=== PATIENT | female | born 1970 | race Caucasian/White ===

== ENCOUNTER → 2017-12-27 09:02 | Outpatient (CLI) | payer MEDICAID, SELFPAY ==
[2017-12-27 17:25] LABS: Absolute Lymphocyte Count 2.96 X10^3/ul (0.83-4.51); Absolute Neutrophil Count 9.1 X10^3/uL (2.0-7.7); Basophil# 0.03 X10^3/uL; Basophil% 0.2 % (0-1); Eosinophil# 0.12 X10^3/uL; Eosinophils% 0.9 % (0-5); Hemoglobin 12.4 g/dl (12.0-15.0); Lymphocyte # 2.96 X10^3/ul (4.0); Lymphocyte % 22.7 % (19-41); Mean Corp Hgb Conc 32.6 g/gl (32-36); Mean Corpuscular Hgb 29.4 pg (27.0-32.0); Mean Platelet Vol. 11.4 fl (6.2-12.0); Monocyte# 0.84 X10^3/uL; Monocyte% 6.4 % (0-10); Neutrophil # 9.09 X10^3/uL (2.7-7.7); Neutrophil % 69.6 % (47-70); Platelet Count 286 K/mm3 (150-450); RBC Distribution Width CV 13.6 % (11.6-14.6); RBC Distribution Width SD 43.9 fl (35.1-43.9); Red Blood Count 4.22 M/mm3 (4.2-5.4); White Blood Count 13.1 K/mm3 (4.4-11.0)
[2017-12-27 17:49] LABS: ALB/GLOB Ratio 0.8 RATIO (0.9-2.4); AST(SGOT) 16 U/L (15-37); Alanine Aminotransfer ALT/SGPT 17 U/L (13-56); Albumin, Serum 3.4 g/dL (3.2-5.0); Alkaline Phosphatase 78 U/L (45-117); Anion Gap 10 (5-15); BUN 10 mg/dL (7-18); BUN/Creat Ratio 11.2 RATIO (10-20); Calcium,Total 8.8 mg/dL (8.5-10.1); Chloride 106 mmol/L (98-107); EST Glomerular Filtration Rate 72 mL/min (>60); Est Glom Filt Rate - Afr Amer 87 mL/min (>60); Globulin 4.2 g/dL (2.2-4.2); Glucose 82 mg/dL (74-106); POSITIVE COUNT NO; POSITIVE DIFFERENTIAL NO; POSITIVE MORPHOLOGY NO; Potassium 3.8 mmol/L (3.5-5.1); Protein, Total 7.6 g/dL (6.4-8.2); Sodium Level 139 mmol/L (136-145); Thyroid Stim Hormone (TSH) 4.04 uIU/mL (0.358-3.74)
== END ==
PROVIDERS: Family Provider Family Medicine Geriatric Medicine; PCP Family Medicine Geriatric Medicine; Visit Provider Family Medicine Geriatric Medicine
DX: R53.83 Other fatigue (principal)
CPT/HCPCS: 36415; 80053; 84443; 85025

== ENCOUNTER 2018-01-17 08:11 | Emergency (ER) | payer MEDICAID, SELFPAY ==
[2018-01-17 08:12] VITALS: BP 183/102; PULSE 87; RESP 16; TEMP 36.7; O2SAT 100; BMI 29.3
[2018-01-17 08:17] VITALS: BP 201/107; PULSE 86; RESP 18; O2SAT 100
--- NOTE | 2018-01-17 08:25 | CT_ITS ---
STUDY: CT BRAIN WITHOUT CONTRAST REASON FOR EXAM: Female, 47 years old. Dizziness since last night. RADIATION DOSAGE (If Supplied By Facility): CTDIvol = ( 44.99 ) mGy, DLP = ( 745.49 ) mGycm TECHNIQUE: Transaxial CT imaging of the brain was performed without administration of intravenous contrast material. Individualized dose optimization techniques were used for this CT. COMPARISON: None. FINDINGS: Normal soft tissue structures. Normal calvarium. Normal size ventricles and extra-axial spaces for the patient's age. Normal white matter tracts of the cerebral hemispheres. Normal basal ganglia and thalami. Normal brainstem. Normal cerebellum. There is no intracranial hemorrhage. There are no findings of an acute ischemic infarction. Normal visualized paranasal sinuses. CT/Brain/Head without Contrast IMPRESSION: No acute intracranial process. Electronically Signed: Tanika Eason MD at 10:16 EDT Tel , Service support ,
--- NOTE | 2018-01-17 08:25 | EKG12_ITS ---
Test Reason : DIZZINESS Blood Pressure : / mmHG Vent. Rate : 090 BPM Atrial Rate : 090 BPM P-R Int : 196 ms QRS Dur : 098 ms QT Int : 370 ms P-R-T Axes : 057 075 057 degrees QTc Int : 452 ms Normal sinus rhythm Nonspecific ST and T wave abnormality Abnormal ECG Confirmed by DIDI VALENZUELA, IBRAHIMA ([id number]), production editor ALYCIA MOSLEY ([id number]) on 01/21/2018 1:53:16 PM Referred By: RANCHO Confirmed By:IBRAHIMA TOLBERT MD
--- NOTE | 2018-01-17 08:26 | RAD_ITS ---
STUDY: X-RAY CHEST REASON FOR EXAM: Female, 47 years old. Chest pain and dizziness. TECHNIQUE: AP and lateral views of the chest. COMPARISON: Comparison is made with prior examination dated August 03, 2015. FINDINGS: EKG electrodes are seen. The lungs are clear and expanded. There is no demonstrated pleural abnormality. Normal size heart. Normal mediastinum and sweta. Normal visualized pulmonary arteries. Normal visualized aortic arch and descending thoracic aorta. Normal visualized thoracic spine. Normal visualized ribs, clavicles, and shoulders. There is no demonstrated abnormality of the visualized soft tissue structures of the upper abdomen. RAD/Chest PA and Lateral IMPRESSION: Normal x-ray examination of the chest. Electronically Signed: Ivan Durand MD at 10:52 EDT Tel [phone], Service support ,
--- NOTE | 2018-01-17 08:28 | ED.VISSUMM ---
- ER Visit Summary Date of Service: 01/17/18 Chief Complaint: Dizzy History of Present Illness: The patient is a 47 F with onset of lightheadedness and dizziness last evening. Patient states it seems to come in waves. She does report some mild palpitations. She describes a head pressure without a real headache. She states she then gets a pressure sensation that washes over her body. She did take a caffeine pill this morning but states she has taken them intermittently in the past and never had this reaction. She also drank half a cup of coffee. Physical Examination: Vital signs include blood pressure of 183/102, temperature 98.1, heart rate 87, respiratory rate 16, pulse ox 100% on room air. Patient is in no acute distress and is nontoxic appearing. Head and neck examination is normal. Heart is regular rate and rhythm. Palpable pulses are noted throughout. Lungs are clear with good air movement throughout. Abdomen is soft and nontender. Bowel sounds are noted. Extremity examination is unremarkable with full range of motion. Neurologic examination reveals no focal deficits. Test Results: EKG is sinus at 90. She has mild ST depression laterally that is mildly more pronounced than prior study. CBC and chemistry studies are normal. Troponin is negative. Patency test negative. TSH is normal. Chest x-ray shows no acute process. CT head shows no acute process. Emergency Department Course and Treatment: Patient has been observed here. Pressure is currently 178/98. Patient states she just had her blood pressure checked 3 weeks ago when she saw Dr. Meyer in the office. My concern is that her hypertension is secondary to her coffee and caffeine supplements. I encouraged her to stop this. She will check her blood pressure regularly and keep record of this. She will follow with Dr. Meyer. Treatment Plan: [] Disposition: Discharge Impression: 1. Dizziness 2. Hypertension, to be monitored This note was generated with [employer] dictation software. It may contain incorrect words, spelling, and punctuation that were not noted in review of the chart prior to signing ED Disposition - Plan for ED Patient: Chief Complaint: Dizziness Referrals: Bear Meyer Chi, MD [Primary Care Provider] -
[2018-01-17] MEDS: 0.9% Normal Saline 1,000 ML 150 ML IV (09:33)
[2018-01-17 09:40] LABS: Absolute Lymphocyte Count 1.87 X10^3/ul (0.83-4.51); Basophil# 0.01 X10^3/uL; Basophil% 0.1 % (0-1); Eosinophil# 0.11 X10^3/uL; Eosinophils% 1.5 % (0-5); Hematocrit 41.1 % (37-47); Hemoglobin 13.2 g/dl (12.0-15.0); Lymphocyte # 1.87 X10^3/ul (4.0); Mean Corp Hgb Conc 32.1 g/gl (32-36); Mean Corpuscular Hgb 28.9 pg (27.0-32.0); Mean Corpuscular Volume 89.9 fL (81-99); Mean Platelet Vol. 10.1 fl (6.2-12.0); Monocyte# 0.47 X10^3/uL; Monocyte% 6.3 % (0-10); Platelet Count 291 K/mm3 (150-450); RBC Distribution Width CV 13.5 % (11.6-14.6); Red Blood Count 4.57 M/mm3 (4.2-5.4); White Blood Count 7.5 K/mm3 (4.4-11.0)
[2018-01-17 09:41] LABS: POSITIVE COUNT NO; POSITIVE DIFFERENTIAL NO; POSITIVE MORPHOLOGY NO
[2018-01-17 09:57] LABS: Pregnancy, Serum, hCG Quali. NEGATIVE Negative (0-9 Nonpreg)
[2018-01-17 10:01] LABS: Anion Gap 9 (5-15); BUN 9 mg/dL (7-18); BUN/Creat Ratio 8.3 RATIO (10-20); Calcium,Total 9.5 mg/dL (8.5-10.1); Chloride 107 mmol/L (98-107); Creatinine, Serum 1.09 mg/dL (0.55-1.02); EST Glomerular Filtration Rate 58 mL/min (>60); Est Glom Filt Rate - Afr Amer 70 mL/min (>60); Estimated Creatinine Clearance 65.75 ml/min; Glucose 96 mg/dL (74-106); Potassium 4.2 mmol/L (3.5-5.1); Sodium Level 142 mmol/L (136-145); Thyroid Stim Hormone (TSH) 1.86 uIU/mL (0.358-3.74)
[2018-01-17 10:19] VITALS: BP 185/98; PULSE 81; RESP 18; O2SAT 100
--- NOTE | 2018-01-17 10:38 | ED.DEP ---
ED Disposition - Plan for ED Patient: Disposition: Home or Assisted Living Chief Complaint: Dizziness Instructions: ED Dizziness [facility], ED Hypertension Poss Referrals: Bear Meyer Chi, MD [Primary Care Provider] - 1 Week
[2018-01-17 10:50] VITALS: BP 154/81; PULSE 76; RESP 16; O2SAT 98
== END 2018-01-17 10:51 | disposition home or self-care (01) ==
PROVIDERS: Emergency Provider Emergency Medicine; Family Provider Family Medicine Geriatric Medicine; PCP Family Medicine Geriatric Medicine
DX: R42 Dizziness and giddiness (principal); I10 Essential (primary) hypertension; K21.9 Gastro-esophageal reflux disease without esophagitis; F41.9 Anxiety disorder, unspecified; Z87.891 Personal history of nicotine dependence
CPT/HCPCS: 70450; 71046; 80048; 84443; 84484; 84703; 85025; 93005; 96360; 99285; J7030

== ENCOUNTER → 2018-01-22 14:47 | Outpatient (CLI) | payer MEDICAID, SELFPAY ==
[2018-01-29 07:01] LABS: Aldosterone, Serum 3.1 ng/dL (0.0-30.0); Renin, Plasma 0.828 ng/mL/hr (0.167-5.380)
== END ==
PROVIDERS: Family Provider Family Medicine Geriatric Medicine; PCP Family Medicine Geriatric Medicine; Visit Provider Family Medicine Geriatric Medicine
DX: R42 Dizziness and giddiness (principal)
CPT/HCPCS: 36415; 82088; 84244

== ENCOUNTER → 2018-01-25 08:04 | Outpatient (CLI) | payer MEDICAID, SELFPAY ==
[2018-01-30 03:07] LABS: Cortisol, Urinary Free 8 ug/L (Undefined); Metanephrine, Ur 85 ug/L (Undefined); Normetanephrines, Ur 190 ug/L (Undefined)
[2018-01-30 11:59] LABS: Cortisol, Free 24Ur 13 ug/24 hr (0-50); Metanephrines, 24Ur 134 ug/24 hr (45-290); Normetanephrines, 24Ur 299 ug/24 hr (82-500)
== END ==
LOC: LAB 08:06 → LABSPEC 08:07
PROVIDERS: Family Provider Family Medicine Geriatric Medicine; PCP Family Medicine Geriatric Medicine; Visit Provider Family Medicine Geriatric Medicine
DX: R42 Dizziness and giddiness (principal)
CPT/HCPCS: 81050; 82530; 83835

== ENCOUNTER → 2018-02-11 12:52 | Outpatient (CLI) | payer MEDICAID, SELFPAY ==
--- NOTE | 2018-02-11 13:00 | SP.MBSS_ITS ---
PRIMARY / SECONDARY DIAGNOSIS: dysphagia (R13.10) REFERRING PHYSICIAN: Dr. Lucy Meyer MD CURRENT DIET: regular textures, thin liquids DENTITION: WFL MENTAL STATUS: WNL RESPIRATORY STATUS: O2 via room air PREVIOUS MODIFIED BARIUM SWALLOW STUDY: none REASON FOR REFERRAL Patient is a 47 year old female referred for a modified barium swallow (MBS) study to objectively assess the Patients oropharyngeal swallow function under fluoroscopy secondary to reported dysphagia primarily with solid textures, with the Patient reporting symptoms similar to globus sensation post deglutition. ADDITIONAL OBJECTIVE ASSESSMENT RESULTS: 01/17/2018 CXR revealed a normal x-ray examination of the chest. 01/17/2018 CT revealed no acute intracranial process. 12/28/2015 pulmonary functions test revealed irreversible mild restrictive ventilatory defect with reduction in diffusion capacity consistent with possible interstitial lung disease. 01/31/2015 soft tissue neck X-ray revealed a normal x-ray soft tissue neck. MEDICAL HISTORY: Dyspnea, hypertension, gastroesophageal reflux disease, anxiety. STUDY FINDINGS: Patient participated in a Modified Barium Swallow (MBS) study on 02/11/2018. Dr. Durand was the radiologist present for this evaluation. This study was recorded in the lateral view and images were sent to PACs for storage. The following consistencies were presented to this patient for analysis of oropharyngeal swallow function: thin liquids, pudding, and a regular textured, [employer] cookie. Results of the MBS are as follows: PENETRATION / ASPIRATION SCALE (JACK): 1 = does not enter airway 2 = enters airway/above vocal folds/ejected 3 = enters airway/above vocal folds/not ejected 4 = enters airway/contacts vocal folds/ejected 5 = enters airway/contacts vocal folds/not ejected 6 = enters airway/below vocal folds/ejected 7 = enters airway/below vocal folds/not ejected despite effort 8 = enters airway/below vocal folds/no effort PENETRATION / ASPIRATION SCALE (SCORE): Thin liquid - 5 mL tsp.: 1 Thin liquids via cup (single sip): 1 Thin liquids via cup (single sip): 1 Thin liquids via cup (single sip): 1 Thin liquids via cup (sequential swallows): 1 Pudding via spoon: 1 Regular textured cookie: 1 Thin liquids via straw (sequential swallows): 1 IMPRESSION: DIAGNOSIS: findings grossly within functional limits. ORAL PHASE CHARACTERIZED BY: LABIAL SEAL: no labial escape TONGUE CONTROL DURING BOLUS MANIPULATION: cohesive bolus between tongue to palatal seal BOLUS PREPARATION / MASTICATION: timely and efficient chewing and mashing BOLUS TRANSPORT / LINGUAL MOTION: brisk tongue motion ORAL RESIDUE: trace residue lining oral structures PHARYNGEAL PHASE CHARACTERIZED BY: INITIATION OF PHARYNGEAL SWALLOW: bolus head at posterior angle of ramus at first hyoid excursion SOFT PALATE ELEVATION: no bolus between soft palate and pharyngeal wall LARYNGEAL ELEVATION: complete superior movement of thyroid cartilage with complete approximation of arytenoids cartilage to epiglottic petiole ANTERIOR HYOID EXCURSION: complete anterior movement EPIGLOTTIC MOVEMENT: complete epiglottic inversion LARYNGEAL VESTIBULE CLOSURE AT HEIGHT OF SWALLOW: complete laryngeal vestibule closure with no air/contrast in laryngeal vestibule PHARYNGEAL STRIPPING WAVE: pharyngeal stripping wave present / complete PHARYNGOESOPHAGEAL SEGMENT OPENING: complete distension and complete duration with no obstruction of flow TONGUE BASE RETRACTION: no contrast between tongue base and posterior pharyngeal wall PHARYNGEAL RESIDUE: trace residue within or on pharyngeal structures ESOPHAGEAL PHASE CHARACTERIZED BY: ESOPHAGEAL BOLUS CLEARANCE IN THE UPRIGHT POSITION: could not view DIET TEXTURE RECOMMENDATIONS: Will recommend a regular textured, thin liquid diet. COMPENSATORY STRATEGIES RECOMMENDED: Seated upright at 90 degrees during PO intake, remain upright for 30-60 minutes post meal (GERD precaution) INTERPRETATION OF RESULTS: The Patient presents with mastication and deglutition abilities found to be grossly within functional limits. No aspiration appreciated throughout consistencies trialed. RECOMMENDATIONS: Patient able to comprehend and express recommended intake precautions detailed above with sufficient detail to suggest high likelihood of compliance. Provided brief overview of signs and symptoms of aspiration, with recommendations for the Patient to further discuss symptoms with PCP. No further skilled speech- language services warranted at this time targeting dysphagia. ADDITIONAL COMMENTS/RECOMMENDATIONS: Results and recommendations were discussed with the Patient immediately following MBS completion, with the Patient verbalizing understanding and agreement with all recommendations and education provided. IMAGE COUNT: [id number] G-CODES: SWALLOWING G8996 Current Status: SWALLOWING G8997 Goal Status: SWALLOWING G8998 Discharge Status: Hugh Sanchez M.A., CCC-NEEDLE LOOM TENDER [facility] Speech-Language Pathology Department [email or web address]
== END ==
PROVIDERS: Family Provider Family Medicine Geriatric Medicine; PCP Family Medicine Geriatric Medicine; Visit Provider Family Medicine Geriatric Medicine
DX: R13.10 Dysphagia, unspecified (principal)
CPT/HCPCS: 74230; 92611

== ENCOUNTER → 2018-03-29 11:30 | Outpatient (CLI) | payer MEDICAID, SELFPAY ==
--- NOTE | 2018-03-29 | FORE_PTH ---
PATIENT: HELEN PETTIT LOC: [facility] U#:[id number] AGE/SX: 54/F ROOM: RE03/29/[address]: Dr. Bear Meyer MD : 1970 BED: DIS: SPEC #: [id number] RECD: 03/29/18 12:29 STATUS: RONAK EARL #: [id number] HALEY: 03/29/18 00:[address]: Bear Meyer Chi DEPT: SURGICAL PATHOLOGY RECD BY: Vaibhav Boland Tissues: FOREIGN BODY Procedures: Surgery Specimen Level I Pap Stain (control) HEADER OPERATION: Not noted PRE-OP DIAGNOSIS: R19.7 TISSUE SUBMITTED: Stool MICROSCOPIC DIAGNOSIS Stool: Fragments of fecal material. No parasite is noted. SJ:aurelia 04/01/18 COMMENT Case has been reviewed in consultation with Dr. Lopez who concurs with the above diagnosis. IDC:AM MICROSCOPIC DESCRIPTION Slides are reviewed. GROSS DESCRIPTION Received in fixative is one container labeled with the patient's name and designated stool. The specimen consists of multiple fragments of brownish mucoid material measuring in aggregate 3 x 2.5 x 0.2 cm. The specimen was initially reviewed by Dr. Lopez. No parasite is identified. Cytospin smears also prepared. The entire specimen is submitted in one cassette. / SJ:rg 03/29/18 TC:5 [facility]: [id number]
== END ==
PROVIDERS: Family Provider Family Medicine Geriatric Medicine; PCP Family Medicine Geriatric Medicine; Visit Provider Family Medicine Geriatric Medicine
DX: R19.7 Diarrhea, unspecified (principal)
CPT/HCPCS: 87177; 87209; 88300

== ENCOUNTER 2018-05-18 09:15 | Emergency (ER) | payer MEDICAID, SELFPAY ==
[2018-05-18 09:16] VITALS: BP 139/96; PULSE 104; RESP 16; TEMP 36.2; O2SAT 100; BMI 28.8
--- NOTE | 2018-05-18 09:30 | ED.VISSUMM ---
- ER Visit Summary Date of Service: 05/18/18 Chief Complaint: Right pelvis pain History of Present Illness: The patient is a 47 F with a history of pelvic floor disorder. She sees a physician in [place] and gets pelvic injections regularly. She is due for a visit in about 4 days. She does report some radiation of the pain to her back. It is severe at times. Associate with some dysuria. Patient has some mild vaginal discharge which is not new or changed. She also has some constipation which is not new or changed. Denies bleeding. Denies rash. Denies fevers. Denies any other symptoms. She has had this pain many times in the past, but never this severe. Physical Examination: Afebrile and vital signs unremarkable except for heart rate of 104. The patient is alert and oriented. Sitting comfortably and appears in no acute distress. Heart regular. No respiratory distress. Abdomen is tender in the suprapubic and left pelvic region my exam. Back is nontender. CVA is nontender. Skin appears normal. Test Results: Urinalysis and test pending. Emergency Department Course and Treatment: Patient treated with [place] while awaiting results. test negative. Urinalysis unremarkable. Patient feeling better after pain medication. No indication for further testing at this point. I will refer her to outpatient follow-up with her doctor this week. She was given a short course of pain medication. 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 Treatment Plan: As above Disposition: Discharge Impression: 1. Pelvic pain This note was generated with [employer] dictation software. It may contain incorrect words, spelling, and punctuation that were not noted in review of the chart prior to signing ED Disposition - Plan for ED Patient: Chief Complaint: Other, Pain/Inj Referrals: Bear Meyer Chi, MD [Primary Care Provider] -
[2018-05-18] MEDS: HYDROcodone Bitartrate/Apap 5/325 Tablet PO (09:32)
[2018-05-18 10:11] LABS: Bacteria 0 SEEN /hpf (None Seen); Mucous, Urine 0 SEEN /hpf (<or=2+); Red Blood Cells-Urine 0 SEEN /hpf (0-5); White Blood Cells 0 SEEN /hpf (0-5)
[2018-05-18 10:13] LABS: Color, Urine Yellow (Yellow); Glucose, Dipstick Normal (Normal); Ketone-Dipstick Negative (Negative); Leukocyte Esterase-Dipstick 25 /ul (Negative); Nitrite-Dipstick Negative (Negative); Occult Blood-Urine 10 /ul (Negative); Protein-Dipstick Negative (Negative); Specific Gravity, Urine 1.025 (1.002-1.030); Urine Bilirubin Dipstick Negative (Negative); Urine Clarity Clear (Clear); Urine Urobilinogen Normal (Normal)
[2018-05-18 10:14] LABS: Internal QC Validated? YES +Cl - CLEAR BKGD; Pregnancy, Urine Negative Negative
[2018-05-18 10:19] LABS: Squamous Epithelial Cells - UA 0-5 SEEN /hpf (5-10)
--- NOTE | 2018-05-18 10:40 | ED.DEP ---
ED Disposition - Plan for ED Patient: Chief Complaint: Other, Pain/Inj Instructions: ED Pelvic Pain [facility] Prescriptions: Hydrocodone Bitart/Apap 5-325 [[place] 5MG-325MG] 1 tab PO Q6H PRN PRN 3 Days #12 tab PRN Reason: Pain Additional Instructions: follow up with your obgyn doctor
--- OUTSIDE RECORDS SUMMARY | 2018-07-12 19:27 | XMS RPT_ITS ---
:1970 Author Organization OHIP Support Name Relationship Address Phone ANA ROLAND [address] + [place] [address] SELF Unavailable Unavailable Unavailable FITZPATRICK, XAVI Unavailable [address] + [place] [address] ANA ROLAND [address] + [place] [address] SELF Unavailable Unavailable Unavailable FITZPATRICK, XAVI Unavailable [address] + [place] [address] ANA ROLAND [address] + [place] [address] SELF Unavailable Unavailable Unavailable FITZPATRICK, XAVI Unavailable [address] + [place] [address] ANA ROLAND [address] + [place] [address] SELF Unavailable Unavailable Unavailable FITZPATRICK, XAVI Unavailable [address] + [place] [address] ANA ROLAND [address] + [place] [address] SELF Unavailable Unavailable Unavailable FITZPATRICK, XAVI Unavailable [address] + [place] [address] ANA ROLAND [address] + [place] [address] SELF Unavailable Unavailable Unavailable FITZPATRICK, XAVI Unavailable [address] + [place] [address] ANA ROLAND [address] + [place] [address] SELF Unavailable Unavailable Unavailable FITZPATRICK, XAVI Unavailable [address] + [place] [address] ANA ROLAND Unavailable [address] [facility] [address] + [place] [address] SELF Unavailable Unavailable Unavailable FITZPATRICK, XAVI Unavailable [address] + [place] [address] ANA ROLAND Unavailable [address] [facility] [address] + [place] [address] SELF Unavailable Unavailable Unavailable FITZPATRICK, XAVI Unavailable [address] + [place] [address] ANA ROLAND Unavailable [address] [facility] [address] + [place] [address] SELF Unavailable Unavailable Unavailable FITZPATRICK, XAVI Unavailable [address] + [place] [address] ANA ROLAND Unavailable [address] [facility] [address] + [place] [address] SELF Unavailable Unavailable Unavailable FITZPATRICK, XAVI Unavailable [address] + [place] [address] Care Team Providers Name Role Phone ADAIRSMAYDA WALTONICA Attending Unavailable DASSEL, GLORIA Referring Unavailable STRASBURG, RADHA Attending Unavailable DASSEL, GLORIA Referring Unavailable STRASBURG, RADHA Attending Unavailable DASSEL, GLORIA Referring Unavailable STRASBURG, RADHA Attending Unavailable DASSEL, GLORIA Referring Unavailable STRASBURG, RADHA Attending Unavailable STRASBURG, RADHA Attending Unavailable STRASBURG, RADHA Attending Unavailable STRASBURG, RADHA Attending Unavailable STRASBURG, RADHA Referring Unavailable STRASBURG, RADHA Attending Unavailable STRASBURG, RADHA Referring Unavailable STRASBURG, RADHA Attending Unavailable STRASBURG, RADHA Referring Unavailable STRASBURG, RADHA Attending Unavailable STRASBURG, RADHA Referring Unavailable Mitch, Bear Chi Attending Unavailable Mitch, Bear Chi Primary Care Unavailable Mitch, Bear Chi Attending Unavailable Mitch, Bear Chi Primary Care Unavailable Mitch, Bear Chi Attending Unavailable Mitch, Bear Chi Primary Care Unavailable Mitch, Bear Chi Primary Care Unavailable Rayne Adamson Attending Unavailable Mitch, Bear Chi Attending Unavailable Mitch, Bear Chi Primary Care Unavailable Mitch, Bear Chi Attending Unavailable Mitch, Bear Chi Referring Unavailable Mitch, Bear Chi Primary Care Unavailable Mitch, Bear Chi Attending Unavailable Mitch, Bear Chi Referring Unavailable Mitch, Bear Chi Primary Care Unavailable Mitch, Bear Chi Attending Unavailable Mitch, Bear Chi Primary Care Unavailable Mitch, Bear Chi Attending Unavailable Mitch, Bear Chi Primary Care Unavailable Mitch, Bear Chi Attending Unavailable Mitch, Bear Chi Primary Care Unavailable Mitch, Bear Chi Primary Care Unavailable Taylor, Domo Attending Unavailable PROBLEMS PROBLEMS DATE TYPE CONDITION / CODE ATTENDING STATUS SOURCE 05/18/2018 Unknown R10.2 - Pelvic Taylor, Domo Active [place] [facility] / R10.2(ICD-10) Hospital Repository 01/25/2018 Unknown R42 - Dizziness Mitch, Bear Chi Active [place] and giddiness / Community R42(ICD-10) Hospital Repository 12/27/2017 Unknown R53.83 - Other Mitch, Bear Chi Active [place] fatigue / Community R53.83(ICD-10) Hospital Repository 07/11/2017 Unknown E03.9 - Mitch, Bear Chi Active [place] Hypothyroidism, Community unspecified / Hospital E03.9(ICD-10) Repository PROCEDURES PROCEDURES No Procedure Records FoundRESULTS RESULTS CNOV Observed: 05/22/2018 Status: COMPLETED Source: [place] 1:00 PM [facility] REPOSITORY Office Visit (GYNMN) LOUISE ROLAND ([id number]) 1970 F Date Time Provider Department 05/22/18 1:00 PM RADHA GERMAN During your visit today, we recorded the following information about you: Blood pressure Weight Height Last Period 166/102 85.7 kg 1.727 m 05/01/18 Radha German MD 05/28/2018 4:12 PM Signed CHRONIC PELVIC PAIN FOLLOW UP VISIT Louise Roland is a 47 year old female who presents for continued management of chronic pelvic pain. HISTORY SINCE LAST VISIT: Patient states she has felt overall better, until 05/16/18 had severe pain in low abdomen/pelvic pain. Patient went to ER on 05/18/2018 and was given Moclips for pain to last her until today's visit. Patient currently in pain at pelvis and has bloating. The past injections lasted about 6 weeks. She didn't feel bulging Took norco Told to f/u w/ me here. This morning started bleeding Last period may 01 to But periods sometimes sporadic. Sexually active , but not past month TL The periods not that bad Last week felt a lot of pressure like front going to fall out Urine test normal inER norco helped the pain Pain lessened when she bled ocdt 2016 ultrasound normal Intensity of pain: moderate Average Pain level: 6 on a scale of 0-10 Emergency room visits for pain since last visit: yes, 05/18/2018 for pelvic pressure Level of physical activity and mobility: fair Quality of sleep: fair - depends on how she lays Mood: fair Side effects of medications for pain: none Notes from last visit 04/10/[address] Lucero MD: ASSESSMENT ? Encounter Diagnosis ? ? ICD-10-CM ? 1. Trigger point of abdomen R10.9 TRIGGER POINT INJECTION MULTI 1-2 MUSCLE GR ? ? ? PLAN ? rlq abd and R vaginal tpi done Follow up in 6wks Radha German MD ? ? UNIVERSAL PROTOCOL / SAFETY CHECKLIST ?? Procedure to be performed: right lower and right vaginal ?trigger point series ?? Sign in Communication: Completed ?? Time Out: Team Confirms the Correct Patient, Correct Procedure, Correct Site and Site Marking, Correct Position (if applicable), Prep and Dry Time (if applicable). Time: 1:00pm ?? Affirmation of Time Out: YES ?? Sign Out Discussion: Completed ?? PROCEDURE NOTE: ? Area prepped with alcohol swab 10 mL 0.25% bupivicaine mixed in a 10 mL syringe. Skin was prepped in a sterile fashion. Right lower abd wall ?Affected area was injected in 1 ?muscle Groups ?(10 areas) with 10 mL of the bupivicaine solution using a 22g needle. Patient tolerated the procedure well. ? Patient tolerated procedure well. ? 10 mL 0.25% bupivicaine mixed in a 10 mL syringe. Skin was prepped in a sterile fashion. Right vaginal wall ?Affected area was injected Into 1 ?muscle groups (coccygus and IC) ?with 10 mL of the bupivicaine solution using a 22g needle. Patient tolerated the procedure well. ?? Patient tolerated procedure well. ?? 0.25 % Bupivacaine 10 ML --- lot # [id number]??EXP: [id number] SUBJECTIVE ROS OBJECTIVE BP 166/102 Ht 5' 8 (1.73m) Wt 189 lb (85.7kg) LMP 05/01/2018 BMI 28.74 kg/(m2). PHYSICAL EXAMINATION: Physical Exam Genitourinary: Genitourinary Comments: ASSESSMENT Encounter Diagnosis ICD-10-CM 1. Pelvic pain in female R10.2 US FEMALE PELVIS TRANSVAG 2. Bloating R14.0 3. Trigger point of abdomen R10.9 TRIGGER POINT INJECTION MULTI 1-2 MUSCLE GR PLAN Ultrasound tpi done today Follow up in 6 wks Radha German MD <<<Procedure >>> ?? UNIVERSAL PROTOCOL / SAFETY CHECKLIST UNIVERSAL PROTOCOL / SAFETY CHECKLIST ?? Procedure to be performed: right lower and right vaginal ?trigger point series ?? Sign in Communication: Completed ?? Time Out: Team Confirms the Correct Patient, Correct Procedure, Correct Site and Site Marking, Correct Position (if applicable), Prep and Dry Time (if applicable). Time: 1:49 pm ?? Affirmation of Time Out: YES ?? Sign Out Discussion: Completed ?? PROCEDURE NOTE: ? Area prepped with alcohol swab 10 mL 0.25% bupivicaine mixed in a 10 mL syringe. Skin was prepped in a sterile fashion. Right lower abd wall ?Affected area was injected in 1 ?muscle Groups ?(10 areas) with 10 mL of the bupivicaine solution using a 22g needle. Patient tolerated the procedure well. ? Patient tolerated procedure well. ? 10 mL 0.25% bupivicaine mixed in a 10 mL syringe. Skin was prepped in a sterile fashion. Right vaginal wall ?Affected area was injected Into 1 ?muscle groups (coccygus and IC) ?with 10 mL of the bupivicaine solution using a 22g needle. Patient tolerated the procedure well. ?? Patient tolerated procedure well. ?? 0.25 % Bupivacaine 10 ML --- lot # [id number] EXP: 02/06 Referring Provider: RADHA GERMAN [[id number]] Allergies As of Date: 05/22/2018 Noted Allergy Reaction DUST 04/27/2010 9 - Itching IMITREX (SUMATRIPTAN) 04/27/2010 14 - Other: See Comments Comments: vision Date Reviewed: 05/22/2018 Reviewed by: Jennifer Hurley RN - Fully Assessed Reason for Visit: Established Patient [175] Primary Visit Diagnosis:Pelvic pain in female [R10.2] Other Visit Diagnoses:Bloating [R14.0] Trigger point of abdomen [R10.9] Order(s): FEMALE PELVIS TRANSVAG [5307570] Order #: [id number] FUTURE TRIGGER POINT INJECTION MULTI 1-2 MUSCLE GR [[id number]] Order #: [id number] Prescriptions as of 05/22/2018 Sig: ALBUTEROL SULFATE HFA 90 MCG/* Inhale 2 Puffs as instructed * CYCLOBENZAPRINE 10 MG TABLET Take 1 tablet by mouth three * FLUTICASONE 50 MCG/ACTUATION * Use 2 Sprays in each nostril * NORCO ORAL Take by mouth. HYDROCORTISONE 0.5 % LOTION as needed. LEVOTHYROXINE 112 MCG TABLET LINZESS ORAL Take by mouth. ONDANSETRON HCL 4 MG TABLET Take 1 tablet by mouth every * ZOLPIDEM 10 MG TABLET 5 mg twice daily. FAMOTIDINE 40 MG TABLET Take 40 mg by mouth twice bri* LEVOTHYROXINE 100 MCG TABLET Take 100 mcg by mouth daily b* Problem List As Of Date 05/22/2018 Noted Resolved Abdominal pain, epigastric [R10.13] INVALID FOR* GERD (gastroesophageal reflux disease) [K21.9] INVALID FOR* Seasonal allergies [J30.2] INVALID FOR* Obesity (BMI 35.0-39.9 without comorbidity) [E6*INVALID FOR* Ilioinguinal neuralgia of right side [G57.91] INVALID FOR* High-tone pelvic floor dysfunction [N94.89] INVALID FOR* Trigger point [M79.10] INVALID FOR* Deep dyspareunia [N94.12] INVALID FOR* Encounter Status:Closed by RADHA GERMAN MD on 05/28/18 PROGRESS Observed: 05/21/2018 Status: COMPLETED Source: [place] 5:18 PM [facility] REPOSITORY O ID: [id number] Author: Radha German Service: (none) Author Type: Physician Type: Progress Notes Filed: 05/28/2018 4:12 PM Note Text: CHRONIC PELVIC PAIN FOLLOW UP VISIT Louise Roland is a 47 year old female who presents for continued management of chronic pelvic pain. HISTORY SINCE LAST VISIT: Patient states she has felt overall better, until 05/16/18 had severe pain in low abdomen/pelvic pain. Patient went to ER on 05/18/2018 and was given Moclips for pain to last her until today's visit. Patient currently in pain at pelvis and has bloating. The past injections lasted about 6 weeks. She didn't feel bulging Took norco Told to f/u w/ me here. This morning started bleeding Last period may 01 to But periods sometimes sporadic. Sexually active , but not past month TL The periods not that bad Last week felt a lot of pressure like front going to fall out Urine test normal inER norco helped the pain Pain lessened when she bled ocdt 2016 ultrasound normal Intensity of pain: moderate Average Pain level: 6 on a scale of 0-10 Emergency room visits for pain since last visit: yes, 05/18/2018 for pelvic pressure Level of physical activity and mobility: fair Quality of sleep: fair - depends on how she lays Mood: fair Side effects of medications for pain: none Notes from last visit 04/10/[address] Lucero MD: ASSESSMENT ? Encounter Diagnosis ? ? ICD-10-CM ? 1. Trigger point of abdomen R10.9 TRIGGER POINT INJECTION MULTI 1-2 MUSCLE GR ? ? ? PLAN ? rlq abd and R vaginal tpi done Follow up in 6wks Radha German MD ? ? UNIVERSAL PROTOCOL / SAFETY CHECKLIST ?? Procedure to be performed: right lower and right vaginal ?trigger point series ?? Sign in Communication: Completed ?? Time Out: Team Confirms the Correct Patient, Correct Procedure, Correct Site and Site Marking, Correct Position (if applicable), Prep and Dry Time (if applicable). Time: 1:00pm ?? Affirmation of Time Out: YES ?? Sign Out Discussion: Completed ?? PROCEDURE NOTE: ? Area prepped with alcohol swab 10 mL 0.25% bupivicaine mixed in a 10 mL syringe. Skin was prepped in a sterile fashion. Right lower abd wall ?Affected area was injected in 1 ?muscle Groups ?(10 areas) with 10 mL of the bupivicaine solution using a 22g needle. Patient tolerated the procedure well. ? Patient tolerated procedure well. ? 10 mL 0.25% bupivicaine mixed in a 10 mL syringe. Skin was prepped in a sterile fashion. Right vaginal wall ?Affected area was injected Into 1 ?muscle groups (coccygus and IC) ?with 10 mL of the bupivicaine solution using a 22g needle. Patient tolerated the procedure well. ?? Patient tolerated procedure well. ?? 0.25 % Bupivacaine 10 ML --- lot # [id number]??EXP: [id number] SUBJECTIVE ROS OBJECTIVE BP 166/102 Ht 5' 8 (1.73m) Wt 189 lb (85.7kg) LMP 05/01/2018 BMI 28.74 kg/(m2). PHYSICAL EXAMINATION: Physical Exam Genitourinary: Genitourinary Comments: ASSESSMENT Encounter Diagnosis ICD-10-CM 1. Pelvic pain in female R10.2 US FEMALE PELVIS TRANSVAG 2. Bloating R14.0 3. Trigger point of abdomen R10.9 TRIGGER POINT INJECTION MULTI 1-2 MUSCLE GR PLAN Ultrasound tpi done today Follow up in 6 wks Radha German MD <<<Procedure >>> ?? UNIVERSAL PROTOCOL / SAFETY CHECKLIST UNIVERSAL PROTOCOL / SAFETY CHECKLIST ?? Procedure to be performed: right lower and right vaginal ?trigger point series ?? Sign in Communication: Completed ?? Time Out: Team Confirms the Correct Patient, Correct Procedure, Correct Site and Site Marking, Correct Position (if applicable), Prep and Dry Time (if applicable). Time: 1:49 pm ?? Affirmation of Time Out: YES ?? Sign Out Discussion: Completed ?? PROCEDURE NOTE: ? Area prepped with alcohol swab 10 mL 0.25% bupivicaine mixed in a 10 mL syringe. Skin was prepped in a sterile fashion. Right lower abd wall ?Affected area was injected in 1 ?muscle Groups ?(10 areas) with 10 mL of the bupivicaine solution using a 22g needle. Patient tolerated the procedure well. ? Patient tolerated procedure well. ? 10 mL 0.25% bupivicaine mixed in a 10 mL syringe. Skin was prepped in a sterile fashion. Right vaginal wall ?Affected area was injected Into 1 ?muscle groups (coccygus and IC) ?with 10 mL of the bupivicaine solution using a 22g needle. Patient tolerated the procedure well. ?? Patient tolerated procedure well. ?? 0.25 % Bupivacaine 10 ML --- lot # [id number] EXP: 02/06 EMERGENCY DEPARTMENT Observed: 05/18/2018 Status: F Source: [place] SUMMARY 12:04 PM [facility] REPOSITORY [facility] Medical Records Department [address] [place] [address] Emergency Department Summary 05/18/18 0930 MR#: [id number] Acct: [id number] Name: LOUISE ROLAND Rep #: [id number] : 1970 47 From: Domo Vazquez MD PCP: Mitch VALENZUELA,Bear Ernst Status: DEP ER - ER Visit Summary Date of Service: 05/18/18 Chief Complaint: Right pelvis pain History of Present Illness: The patient is a 47 F with a history of pelvic floor disorder. She sees a physician in [place] and gets pelvic injections regularly. She is due for a visit in about 4 days. She does report some radiation of the pain to her back. It is severe at times. Associate with some dysuria. Patient has some mild vaginal discharge which is not new or changed. She also has some constipation which is not new or changed. Denies bleeding. Denies rash. Denies fevers. Denies any other symptoms. She has had this pain many times in the past, but never this severe. Physical Examination: Afebrile and vital signs unremarkable except for heart rate of 104. The patient is alert and oriented. Sitting comfortably and appears in no acute distress. Heart regular. No respiratory distress. Abdomen is tender in the suprapubic and left pelvic region my exam. Back is nontender. CVA is nontender. Skin appears normal. Test Results: Urinalysis and test pending. Emergency Department Course and Treatment: Patient treated with Moclips while awaiting results. test negative. Urinalysis unremarkable. Patient feeling better after pain medication. No indication for further testing at this point. I will refer her to outpatient follow-up with her doctor this week. She was given a short course of pain medication. Return for any new or worsening issues as she could have an infection or other , STATION DETECTIVE, or GI complications. Treatment Plan: As above Disposition: Discharge Impression: 1. Pelvic pain This note was generated with Channel[employer] dictation software. It may contain incorrect words, spelling, and punctuation that were not noted in review of the chart prior to signing ED Disposition - Plan for ED Patient: Chief Complaint: Other, Pain/Inj Referrals: Bear Meyer Chi, MD [Primary Care Provider] - What to do if you have Problems For any increased pain, shortness of breath, bleeding, nausea or vomiting, chest pain, or any unexpected problems, contact your Primary Care Provider. Call [facility] ([phone]) or report to the closest Emergency Room. Call 911 if necessary. 05/18/18 1204 <Electronically signed by Domo Vazquez MD> Date Domo Vazquez MD Cosigner Signature (If Indicated): Date CC: Bear Meyer MD DISCHARGE INSTRUCTION Observed: 05/18/2018 Status: F Source: [place] 12:04 PM [facility] REPOSITORY [facility] Medical Records Department [address] [place] [address] Discharge Instruction 05/18/18 1040 MR#: [id number] Acct: [id number] Name: LOUISE ROLAND Rep #: [id number] : 1970 47 From: Domo Vazquez MD PCP: Bear Meyer MD, Chi Status: DEP ER ED Disposition - Plan for ED Patient: Chief Complaint: Other, Pain/Inj Instructions: ED Pelvic Pain [facility] Prescriptions: Hydrocodone Bitart/Apap 5-325 [Moclips 5MG-325MG] 1 tab PO Q6H PRN PRN 3 Days #12 tab PRN Reason: Pain Additional Instructions: follow up with your obgyn doctor What to do if you have Problems For any increased pain, shortness of breath, bleeding, nausea or vomiting, chest pain, or any unexpected problems, contact your Primary Care Provider. Call [facility] ([phone]) or report to the closest Emergency Room. Call 911 if necessary. 05/18/18 1204 <Electronically signed by Domo Vazquez MD> Date Domo Vazquez MD Cosigner Signature (If Indicated): Date CC: Bear Meyer MD ,URINE Collected: 05/18/2018 Status: F Source: [place] 10:00 AM [facility] REPOSITORY Order Comment: Order Date: 05/18/18 Has pt arrived? Y TYPE CODE TESTS RESULT OUT OF REFERENCE UNITS RANGE LAB L400.8000 Negative Normal HCGUQUAL Negative Result Comment: Very dilute urine specimens, as indicated by a low specific gravity, may not contain loss prevention representative levels of hCG. If is still suspected, a first morning urine specimen should be collected 48 hours later and tested. Performed By: #### L400.7600 #### [facility] [address] [place], [place], [address] URINALYSIS, COMPLETE Collected: 05/18/2018 Status: F Source: [place] 10:00 [facility] REPOSITORY Order Comment: Order Date: 05/18/18 Has pt arrived? Y How was Urine Obtained? GEAR GRINDER TO SPECIFY TYPE CODE TESTS RESULT OUT OF RANGE REFERENCE UNITS LAB L400.3000 Yellow COLOR Normal Yellow LAB L400.3050 Clear Normal CLARITY Clear LAB L400.3200 Normal mg/dl Normal GLUCOSE, UR Normal LAB L400.3300 Negative mg/dL Normal BILIRUBIN URINE Negative LAB L400.3400 Negative mg/dl Normal KETONE UR Negative LAB L400.3465 1.002-1.030 Normal SP.GR. DIPSTX 1.025 LAB L400.3550 5.0 - 8.0 pH UR Normal 5.0 LAB L400.3600 Negative mg/dl PROT Normal DIPSTX Negative LAB L400.3700 Normal mg/dl Normal UROBILI Normal LAB L400.3750 Negative Normal NITRITE UR Negative LAB L400.3780 Negative /ul High 10 OCCULT BLOOD-UR LAB L400.3800 Negative /ul High LEUK 25 ESTERASE LAB L400.4050 0-5 /hpf WBC 0 Normal SEEN LAB L400.4100 0-5 /hpf 0 Normal RBC-UA SEEN LAB L400.4150 5-10 /hpf SQUAM Normal EPI 0-5 SEEN LAB L400.4300 None Seen /hpf 0 Normal BACTERIA SEEN LAB L400.4350 <or=2+ /hpf 0 Normal MUCUS, URINE SEEN Performed By: #### L400.0001 #### [facility] [address] [place], [address] CNOV Observed: 04/10/2018 Status: COMPLETED Source: [place] 1:00 PM [facility] REPOSITORY Office Visit (GYNMN) LOUISE ROLAND ([id number]) 1970 F Date Time Provider Department 04/10/18 1:00 PM RADHA GERMAN During your visit today, we recorded the following information about you: Blood pressure Weight Height Last Period 122/90 88.1 kg 1.727 m 03/27/18 Radha German MD 04/10/2018 5:35 PM Signed CHRONIC PELVIC PAIN FOLLOW UP VISIT Louise Roland is a 47 year old female who presents for continued management of chronic pelvic pain. HISTORY SINCE LAST VISIT: Patient states her last set of injections lasted almost 6 weeks and worked well. Intensity of pain: mild-moderate Average Pain level: 6 on a scale of 0-10 Emergency room visits for pain since last visit: none Level of physical activity and mobility: great Quality of sleep: good Mood: good Side effects of medications for pain: none Notes from last visit 02/25/[address] Lucero MD: ASSESSMENT ? Encounter Diagnosis ? ? ICD-10-CM ? 1. Trigger point of abdomen R10.9 TRIGGER POINT INJECTION MULTI 1-2 MUSCLE GR 2. Ilioinguinal neuralgia of right side G57.91 ? PLAN ? Repeat R abd and R vaginal wall TPI F/u 6wks repeat tpi Radha German MD ? <<<Procedure >>> ?? UNIVERSAL PROTOCOL / SAFETY CHECKLIST ?? Procedure to be performed: right lower and right vaginal trigger point series ?? Sign in Communication: Completed ?? Time Out: Team Confirms the Correct Patient, Correct Procedure, Correct Site and Site Marking, Correct Position (if applicable), Prep and Dry Time (if applicable). Time: 140pm ?? Affirmation of Time Out: YES ?? Sign Out Discussion: Completed ?? PROCEDURE NOTE: Area prepped with alcohol swab 10 mL 0.25% bupivicaine mixed in a 10 mL syringe. Skin was prepped in a sterile fashion. Right lower abd wall Affected area was injected in 1 muscle Groups (10 areas) with 10 mL of the bupivicaine solution using a 22g needle. Patient tolerated the procedure well. ? Patient tolerated procedure well. ? ?? 10 mL 0.25% bupivicaine mixed in a 10 mL syringe. Skin was prepped in a sterile fashion. Right vaginal wall Affected area was injected Into 1 muscle groups (coccygus and IC) with 10 mL of the bupivicaine solution using a 22g needle. Patient tolerated the procedure well. ?? Patient tolerated procedure well. ?? 0.25 % Bupivacaine 10 ML --- lot # [id number] EXP: [id number] SUBJECTIVE Review of Systems Genitourinary: Positive for dysuria. OBJECTIVE BP 122/90 Ht 5' 8 (1.73m) Wt 194 lb 4.8 oz (88.1kg) LMP 03/27/2018 BMI 29.55 kg/(m2). PHYSICAL EXAMINATION: Physical Exam Genitourinary: Genitourinary Comments: Abdominal tenderness tender rlq Abdominal myofacial trigger points - + carnetts Vaginal Vestibular tenderness neg Rectal tenderness negn Bladder base tenderness neg Uterus Retocervix Adnexa Pelvic Floor Musculature RIGHT SIDED Pubococcygeus 2 Iliococcygeus 2 Coccygeus 2 Obturator 2 LEFT SIDED Pubococcygeus 0 Iliococcygeus 0 Coccygeus 0 Obturator 0 (Pain Scale 1 to 3, 3= extreme) RV exam - deferred ASSESSMENT Encounter Diagnosis ICD-10-CM 1. Trigger point of abdomen R10.9 TRIGGER POINT INJECTION MULTI 1-2 MUSCLE GR PLAN rlq abd and R vaginal tpi done Follow up in 6wks Radha German MD UNIVERSAL PROTOCOL / SAFETY CHECKLIST ?? Procedure to be performed: right lower and right vaginal trigger point series ?? Sign in Communication: Completed ?? Time Out: Team Confirms the Correct Patient, Correct Procedure, Correct Site and Site Marking, Correct Position (if applicable), Prep and Dry Time (if applicable). Time: 1:00pm ?? Affirmation of Time Out: YES ?? Sign Out Discussion: Completed ?? PROCEDURE NOTE: Area prepped with alcohol swab 10 mL 0.25% bupivicaine mixed in a 10 mL syringe. Skin was prepped in a sterile fashion. Right lower abd wall Affected area was injected in 1 muscle Groups (10 areas) with 10 mL of the bupivicaine solution using a 22g needle. Patient tolerated the procedure well. ? Patient tolerated procedure well. ? ?? 10 mL 0.25% bupivicaine mixed in a 10 mL syringe. Skin was prepped in a sterile fashion. Right vaginal wall Affected area was injected Into 1 muscle groups (coccygus and IC) with 10 mL of the bupivicaine solution using a 22g needle. Patient tolerated the procedure well. ?? Patient tolerated procedure well. ?? 0.25 % Bupivacaine 10 ML --- lot # [id number] EXP: [id number] Referring Provider: RADHA GERMAN [[id number]] Allergies As of Date: 04/10/2018 Noted Allergy Reaction DUST 04/27/2010 9 - Itching IMITREX (SUMATRIPTAN) 04/27/2010 14 - Other: See Comments Comments: vision Date Reviewed: 04/10/2018 Reviewed by: Rosina Hopson Ma - Fully Assessed Reason for Visit: Established Patient [175] Cmt: tpi Primary Visit Diagnosis:Trigger point of abdomen [R10.9] Order(s):TRIGGER POINT INJECTION MULTI 1-2 MUSCLE GR [[id number]] Order #: [id number] Prescriptions as of 04/10/2018 Sig: LEVOTHYROXINE 112 MCG TABLET ONDANSETRON HCL 4 MG TABLET Take 1 tablet by mouth every * HYDROCORTISONE 0.5 % LOTION as needed. ZOLPIDEM 10 MG TABLET 5 mg twice daily. CYCLOBENZAPRINE 10 MG TABLET Take 1 tablet by mouth three * FLUTICASONE 50 MCG/ACTUATION * Use 2 Sprays in each nostril * LEVOTHYROXINE 100 MCG TABLET Take 100 mcg by mouth daily b* FAMOTIDINE 40 MG TABLET Take 40 mg by mouth twice bri* ALBUTEROL SULFATE HFA 90 MCG/* Inhale 2 Puffs as instructed * Problem List As Of Date 04/10/2018 Noted Resolved Abdominal pain, epigastric [R10.13] INVALID FOR* GERD (gastroesophageal reflux disease) [K21.9] INVALID FOR* Seasonal allergies [J30.2] INVALID FOR* Obesity (BMI 35.0-39.9 without comorbidity) [E6*INVALID FOR* Ilioinguinal neuralgia of right side [G57.91] INVALID FOR* High-tone pelvic floor dysfunction [N94.89] INVALID FOR* Trigger point [M79.10] INVALID FOR* Deep dyspareunia [N94.12] INVALID FOR* Encounter Status:Closed by RADHA GERMAN MD on 04/10/18 PROGRESS Observed: 04/07/2018 Status: COMPLETED Source: [place] 9:37 AM [facility] [place] REPOSITORY O ID: [id number] Author: Radha German Service: (none) Author Type: Physician Type: Progress Notes Filed: 04/10/2018 5:35 PM Note Text: CHRONIC PELVIC PAIN FOLLOW UP VISIT Louise Roland is a 47 year old female who presents for continued management of chronic pelvic pain. HISTORY SINCE LAST VISIT: Patient states her last set of injections lasted almost 6 weeks and worked well. Intensity of pain: mild-moderate Average Pain level: 6 on a scale of 0-10 Emergency room visits for pain since last visit: none Level of physical activity and mobility: great Quality of sleep: good Mood: good Side effects of medications for pain: none Notes from last visit 02/25/[address] Lucero MD: ASSESSMENT ? Encounter Diagnosis ? ? ICD-10-CM ? 1. Trigger point of abdomen R10.9 TRIGGER POINT INJECTION MULTI 1-2 MUSCLE GR 2. Ilioinguinal neuralgia of right side G57.91 ? PLAN ? Repeat R abd and R vaginal wall TPI F/u 6wks repeat tpi Radha German MD ? <<<Procedure >>> ?? UNIVERSAL PROTOCOL / SAFETY CHECKLIST ?? Procedure to be performed: right lower and right vaginal trigger point series ?? Sign in Communication: Completed ?? Time Out: Team Confirms the Correct Patient, Correct Procedure, Correct Site and Site Marking, Correct Position (if applicable), Prep and Dry Time (if applicable). Time: 140pm ?? Affirmation of Time Out: YES ?? Sign Out Discussion: Completed ?? PROCEDURE NOTE: Area prepped with alcohol swab 10 mL 0.25% bupivicaine mixed in a 10 mL syringe. Skin was prepped in a sterile fashion. Right lower abd wall Affected area was injected in 1 muscle Groups (10 areas) with 10 mL of the bupivicaine solution using a 22g needle. Patient tolerated the procedure well. ? Patient tolerated procedure well. ? ?? 10 mL 0.25% bupivicaine mixed in a 10 mL syringe. Skin was prepped in a sterile fashion. Right vaginal wall Affected area was injected Into 1 muscle groups (coccygus and IC) with 10 mL of the bupivicaine solution using a 22g needle. Patient tolerated the procedure well. ?? Patient tolerated procedure well. ?? 0.25 % Bupivacaine 10 ML --- lot # [id number] EXP: [id number] SUBJECTIVE Review of Systems Genitourinary: Positive for dysuria. OBJECTIVE BP 122/90 Ht 5' 8 (1.73m) Wt 194 lb 4.8 oz (88.1kg) LMP 03/27/2018 BMI 29.55 kg/(m2). PHYSICAL EXAMINATION: Physical Exam Genitourinary: Genitourinary Comments: Abdominal tenderness tender rlq Abdominal myofacial trigger points - + carnetts Vaginal Vestibular tenderness neg Rectal tenderness negn Bladder base tenderness neg Uterus Retocervix Adnexa Pelvic Floor Musculature RIGHT SIDED Pubococcygeus 2 Iliococcygeus 2 Coccygeus 2 Obturator 2 LEFT SIDED Pubococcygeus 0 Iliococcygeus 0 Coccygeus 0 Obturator 0 (Pain Scale 1 to 3, 3= extreme) RV exam - deferred ASSESSMENT Encounter Diagnosis ICD-10-CM 1. Trigger point of abdomen R10.9 TRIGGER POINT INJECTION MULTI 1-2 MUSCLE GR PLAN rlq abd and R vaginal tpi done Follow up in 6wks Radha German MD UNIVERSAL PROTOCOL / SAFETY CHECKLIST ?? Procedure to be performed: right lower and right vaginal trigger point series ?? Sign in Communication: Completed ?? Time Out: Team Confirms the Correct Patient, Correct Procedure, Correct Site and Site Marking, Correct Position (if applicable), Prep and Dry Time (if applicable). Time: 1:00pm ?? Affirmation of Time Out: YES ?? Sign Out Discussion: Completed ?? PROCEDURE NOTE: Area prepped with alcohol swab 10 mL 0.25% bupivicaine mixed in a 10 mL syringe. Skin was prepped in a sterile fashion. Right lower abd wall Affected area was injected in 1 muscle Groups (10 areas) with 10 mL of the bupivicaine solution using a 22g needle. Patient tolerated the procedure well. ? Patient tolerated procedure well. ? ?? 10 mL 0.25% bupivicaine mixed in a 10 mL syringe. Skin was prepped in a sterile fashion. Right vaginal wall Affected area was injected Into 1 muscle groups (coccygus and IC) with 10 mL of the bupivicaine solution using a 22g needle. Patient tolerated the procedure well. ?? Patient tolerated procedure well. ?? 0.25 % Bupivacaine 10 ML --- lot # [id number] EXP: [id number] FOREIGN BODY Observed: 03/29/2018 Status: F Source: [place] 12:00 AM [facility] REPOSITORY Patient: LOUISE ROLAND : 1970 (47/F) Acct Num: [id number] Phys: Mitch VALENZUELA,[facility] Unit Num: [id number] Loc: LABSPEC Specimen: [id number] Received: 03/29/18 - 1229 Spec Type: FOREIGN B TISSUES 1 TISSUES: FOREIGN BODY COMMENT Case has been reviewed in consultation with Dr. Lopez who concurs with the above diagnosis. IDC:AM GROSS DESCRIPTION Received in fixative is one container labeled with the patient's name and designated stool. The specimen consists of multiple fragments of brownish mucoid material measuring in aggregate 3 x 2.5 x 0.2 cm. The specimen was initially reviewed by Dr. Lopez. No parasite is identified. Cytospin smears also prepared. The entire specimen is submitted in one cassette. / ELSY:aurelia 03/29/18 TC:5 CPT: 23284 HEADER OPERATION: Not noted PRE-OP DIAGNOSIS: R19.7 TISSUE SUBMITTED: Stool MICROSCOPIC DESCRIPTION Slides are reviewed. MICROSCOPIC DIAGNOSIS Stool: Fragments of fecal material. No parasite is noted. SJ:aurelia 04/01/18 Signed Moose Nava 04/02/18 <signature on file> Performed By: #### PFORE #### [facility] [place], [address] CNOV Observed: 02/25/2018 Status: COMPLETED Source: [place] 1:30 PM [facility] REPOSITORY Office Visit (GYNMN) LOUISE ROLAND ([id number]) 1970 F Date Time Provider Department 02/25/18 1:30 PM RADHA GERMAN GYNARISTIDES During your visit today, we recorded the following information about you: Blood pressure Weight Height Last Period 130/80 86.6 kg 1.727 m 02/06/18 Radha German MD 02/25/2018 3:10 PM Signed CHRONIC PELVIC PAIN FOLLOW UP VISIT Louise Roland is a 47 year old female who presents for continued management of chronic pelvic pain. HISTORY SINCE LAST VISIT: Sore, starting to get more pain this last week. Been more active. Thinks 6 weeks I limit for between injections. Last shot 01/14 Past month, went to [place], walked in concert there. Went fishing Intensity of pain: moderate Average Pain level: 6 on a scale of 0-10 Emergency room visits for pain since last visit: yes but for high BP, not pelvic px Level of physical activity and mobility: good Quality of sleep: good Mood: fair Side effects of medications for pain: none Notes from last visit 01/14/2018: Encounter Diagnosis ? ? ICD-10-CM ? 1. Chronic pelvic pain in female R10.2 TRIGGER POINT INJECTION MULTI 1-2 MUSCLE GR ? G89.29 ? 2. Trigger point of abdomen R10.9 TRIGGER POINT INJECTION MULTI 1-2 MUSCLE GR ? Doing well since injection 5 wks ago ? PLAN ? 1. Repeat R abd AND vag tpi 2. Extend visit to 6 wks for TPi Radha German MD SUBJECTIVE ROS OBJECTIVE BP 130/80 Ht 5' 8 (1.73m) Wt 191 lb (86.6kg) LMP 02/06/2018 BMI 29.05 kg/(m2). PHYSICAL EXAMINATION: Physical Exam Abdominal: Left vaginal wall tedneness, IC and coccygeus ASSESSMENT Encounter Diagnosis ICD-10-CM 1. Trigger point of abdomen R10.9 TRIGGER POINT INJECTION MULTI 1-2 MUSCLE GR 2. Ilioinguinal neuralgia of right side G57.91 PLAN Repeat R abd and R vaginal wall TPI F/u 6wks repeat tpi Radha German MD <<<Procedure >>> ?? UNIVERSAL PROTOCOL / SAFETY CHECKLIST ?? Procedure to be performed: right lower and right vaginal trigger point series ?? Sign in Communication: Completed ?? Time Out: Team Confirms the Correct Patient, Correct Procedure, Correct Site and Site Marking, Correct Position (if applicable), Prep and Dry Time (if applicable). Time: 140pm ?? Affirmation of Time Out: YES ?? Sign Out Discussion: Completed ?? PROCEDURE NOTE: Area prepped with alcohol swab 10 mL 0.25% bupivicaine mixed in a 10 mL syringe. Skin was prepped in a sterile fashion. Right lower abd wall Affected area was injected in 1 muscle Groups (10 areas) with 10 mL of the bupivicaine solution using a 22g needle. Patient tolerated the procedure well. ? Patient tolerated procedure well. ?? 10 mL 0.25% bupivicaine mixed in a 10 mL syringe. Skin was prepped in a sterile fashion. Right vaginal wall Affected area was injected Into 1 muscle groups (coccygus and IC) with 10 mL of the bupivicaine solution using a 22g needle. Patient tolerated the procedure well. ?? Patient tolerated procedure well. ?? 0.25 % Bupivacaine 10 ML --- lot # [id number] EXP: [id number] Referring Provider: RADHA GERMAN [[id number]] Allergies As of Date: 02/25/2018 Noted Allergy Reaction DUST 04/27/2010 9 - Itching IMITREX (SUMATRIPTAN) 04/27/2010 14 - Other: See Comments Comments: vision Date Reviewed: 02/25/2018 Reviewed by: Leia Moreno Ma - Fully Assessed Reason for Visit: Established Patient [175] Primary Visit Diagnosis:Trigger point of abdomen [R10.9] Other Visit Diagnosis:Ilioinguinal neuralgia of right side [G57.91] Order(s):TRIGGER POINT INJECTION MULTI 1-2 MUSCLE GR [[id number]] Order #: [id number] Prescriptions as of 02/25/2018 Sig: LEVOTHYROXINE 112 MCG TABLET ONDANSETRON HCL 4 MG TABLET Take 1 tablet by mouth every * FAMOTIDINE 40 MG TABLET Take 40 mg by mouth twice bri* HYDROCORTISONE 0.5 % LOTION as needed. ZOLPIDEM 10 MG TABLET 5 mg twice daily. CYCLOBENZAPRINE 10 MG TABLET Take 1 tablet by mouth three * FLUTICASONE 50 MCG/ACTUATION * Use 2 Sprays in each nostril * LEVOTHYROXINE 100 MCG TABLET Take 100 mcg by mouth daily b* ALBUTEROL SULFATE HFA 90 MCG/* Inhale 2 Puffs as instructed * Problem List As Of Date 02/25/2018 Noted Resolved Abdominal pain, epigastric [R10.13] INVALID FOR* GERD (gastroesophageal reflux disease) [K21.9] INVALID FOR* Seasonal allergies [J30.2] INVALID FOR* Obesity (BMI 35.0-39.9 without comorbidity) [E6*INVALID FOR* Ilioinguinal neuralgia of right side [G57.91] INVALID FOR* High-tone pelvic floor dysfunction [N94.89] INVALID FOR* Trigger point [M79.1] INVALID FOR* Deep dyspareunia [N94.12] INVALID FOR* Encounter Status:Closed by RADHA GERMAN MD on 02/25/18 PROGRESS Observed: 02/25/2018 Status: COMPLETED Source: [place] 11:14 AM [facility] RE[facility] HNO ID: [id number] Author: Radha German Service: (none) Author Type: Physician Type: Progress Notes Filed: 02/25/2018 3:10 PM Note Text: CHRONIC PELVIC PAIN FOLLOW UP VISIT Louise Roland is a 47 year old female who presents for continued management of chronic pelvic pain. HISTORY SINCE LAST VISIT: Sore, starting to get more pain this last week. Been more active. Thinks 6 weeks I limit for between injections. Last shot 01/14 Past month, went to [place], walked in concert there. Went fishing Intensity of pain: moderate Average Pain level: 6 on a scale of 0-10 Emergency room visits for pain since last visit: yes but for high BP, not pelvic px Level of physical activity and mobility: good Quality of sleep: good Mood: fair Side effects of medications for pain: none Notes from last visit 01/14/2018: Encounter Diagnosis ? ? ICD-10-CM ? 1. Chronic pelvic pain in female R10.2 TRIGGER POINT INJECTION MULTI 1-2 MUSCLE GR ? G89.29 ? 2. Trigger point of abdomen R10.9 TRIGGER POINT INJECTION MULTI 1-2 MUSCLE GR ? Doing well since injection 5 wks ago ? PLAN ? 1. Repeat R abd AND vag tpi 2. Extend visit to 6 wks for TPi Radha German MD SUBJECTIVE ROS OBJECTIVE BP 130/80 Ht 5' 8 (1.73m) Wt 191 lb (86.6kg) LMP 02/06/2018 BMI 29.05 kg/(m2). PHYSICAL EXAMINATION: Physical Exam Abdominal: Left vaginal wall tedneness, IC and coccygeus ASSESSMENT Encounter Diagnosis ICD-10-CM 1. Trigger point of abdomen R10.9 TRIGGER POINT INJECTION MULTI 1-2 MUSCLE GR 2. Ilioinguinal neuralgia of right side G57.91 PLAN Repeat R abd and R vaginal wall TPI F/u 6wks repeat tpi Radha German MD <<<Procedure >>> ?? UNIVERSAL PROTOCOL / SAFETY CHECKLIST ?? Procedure to be performed: right lower and right vaginal trigger point series ?? Sign in Communication: Completed ?? Time Out: Team Confirms the Correct Patient, Correct Procedure, Correct Site and Site Marking, Correct Position (if applicable), Prep and Dry Time (if applicable). Time: 140pm ?? Affirmation of Time Out: YES ?? Sign Out Discussion: Completed ?? PROCEDURE NOTE: Area prepped with alcohol swab 10 mL 0.25% bupivicaine mixed in a 10 mL syringe. Skin was prepped in a sterile fashion. Right lower abd wall Affected area was injected in 1 muscle Groups (10 areas) with 10 mL of the bupivicaine solution using a 22g needle. Patient tolerated the procedure well. ? Patient tolerated procedure well. ?? 10 mL 0.25% bupivicaine mixed in a 10 mL syringe. Skin was prepped in a sterile fashion. Right vaginal wall Affected area was injected Into 1 muscle groups (coccygus and IC) with 10 mL of the bupivicaine solution using a 22g needle. Patient tolerated the procedure well. ?? Patient tolerated procedure well. ?? 0.25 % Bupivacaine 10 ML --- lot # [id number] EXP: [id number] MODIFIED BARIUM Observed: 02/11/2018 Status: F Source: [place] SWALLOW STUDY 4:06 PM [facility] REPOSITORY [facility] Speech Pathology [address] [place] [address] Modified Barium Swallow Study MR#: [id number] Acct: [id number] Name: LOUISE ROLAND Rep #: [id number] : 1970 47 From: RONNY Jackson M.A.Y-CHILD PSYCHOLOGY TEACHER PRIMARY / SECONDARY DIAGNOSIS: dysphagia (R13.10) REFERRING PHYSICIAN: Dr. Lucy Meyer MD CURRENT DIET: regular textures, thin liquids DENTITION: WFL MENTAL STATUS: WNL RESPIRATORY STATUS: O2 via room air PREVIOUS MODIFIED BARIUM SWALLOW STUDY: none REASON FOR REFERRAL Patient is a 47 year old female referred for a modified barium swallow (MBS) study to objectively assess the Patients oropharyngeal swallow function under fluoroscopy secondary to reported dysphagia primarily with solid textures, with the Patient reporting symptoms similar to globus sensation post deglutition. ADDITIONAL OBJECTIVE ASSESSMENT RESULTS: 01/17/2018 CXR revealed a normal x-ray examination of the chest. 01/17/2018 CT revealed no acute intracranial process. 12/28/2015 pulmonary functions test revealed irreversible mild restrictive ventilatory defect with reduction in diffusion capacity consistent with possible interstitial lung disease. 01/31/2015 soft tissue neck X-ray revealed a normal x-ray soft tissue neck. MEDICAL HISTORY: Dyspnea, hypertension, gastroesophageal reflux disease, anxiety. STUDY FINDINGS: Patient participated in a Modified Barium Swallow (MBS) study on 02/11/2018. Dr. Durand was the radiologist present for this evaluation. This study was recorded in the lateral view and images were sent to PACs for storage. The following consistencies were presented to this patient for analysis of oropharyngeal swallow function: thin liquids, pudding, and a regular textured, Pita Doone cookie. Results of the MBS are as follows: PENETRATION / ASPIRATION SCALE (JACK): 1 = does not enter airway 2 = enters airway/above vocal folds/ejected 3 = enters airway/above vocal folds/not ejected 4 = enters airway/contacts vocal folds/ejected 5 = enters airway/contacts vocal folds/not ejected 6 = enters airway/below vocal folds/ejected 7 = enters airway/below vocal folds/not ejected despite effort 8 = enters airway/below vocal folds/no effort PENETRATION / ASPIRATION SCALE (SCORE): Thin liquid - 5 mL tsp.: 1 Thin liquids via cup (single sip): 1 Thin liquids via cup (single sip): 1 Thin liquids via cup (single sip): 1 Thin liquids via cup (sequential swallows): 1 Pudding via spoon: 1 Regular textured cookie: 1 Thin liquids via straw (sequential swallows): 1 IMPRESSION: DIAGNOSIS: findings grossly within functional limits. ORAL PHASE CHARACTERIZED BY: LABIAL SEAL: no labial escape TONGUE CONTROL DURING BOLUS MANIPULATION: cohesive bolus between tongue to palatal seal BOLUS PREPARATION / MASTICATION: timely and efficient chewing and mashing BOLUS TRANSPORT / LINGUAL MOTION: brisk tongue motion ORAL RESIDUE: trace residue lining oral structures PHARYNGEAL PHASE CHARACTERIZED BY: INITIATION OF PHARYNGEAL SWALLOW: bolus head at posterior angle of ramus at first hyoid excursion SOFT PALATE ELEVATION: no bolus between soft palate and pharyngeal wall LARYNGEAL ELEVATION: complete superior movement of thyroid cartilage with complete approximation of arytenoids cartilage to epiglottic petiole ANTERIOR HYOID EXCURSION: complete anterior movement EPIGLOTTIC MOVEMENT: complete epiglottic inversion LARYNGEAL VESTIBULE CLOSURE AT HEIGHT OF SWALLOW: complete laryngeal vestibule closure with no air/contrast in laryngeal vestibule PHARYNGEAL STRIPPING WAVE: pharyngeal stripping wave present / complete PHARYNGOESOPHAGEAL SEGMENT OPENING: complete distension and complete duration with no obstruction of flow TONGUE BASE RETRACTION: no contrast between tongue base and posterior pharyngeal wall PHARYNGEAL RESIDUE: trace residue within or on pharyngeal structures ESOPHAGEAL PHASE CHARACTERIZED BY: ESOPHAGEAL BOLUS CLEARANCE IN THE UPRIGHT POSITION: could not view DIET TEXTURE RECOMMENDATIONS: Will recommend a regular textured, thin liquid diet. COMPENSATORY STRATEGIES RECOMMENDED: Seated upright at 90 degrees during PO intake, remain upright for 30-60 minutes post meal (GERD precaution) INTERPRETATION OF RESULTS: The Patient presents with mastication and deglutition abilities found to be grossly within functional limits. No aspiration appreciated throughout consistencies trialed. RECOMMENDATIONS: Patient able to comprehend and express recommended intake precautions detailed above with sufficient detail to suggest high likelihood of compliance. Provided brief overview of signs and symptoms of aspiration, with recommendations for the Patient to further discuss symptoms with PCP. No further skilled speech-language services warranted at this time targeting dysphagia. ADDITIONAL COMMENTS/RECOMMENDATIONS: Results and recommendations were discussed with the Patient immediately following MBS completion, with the Patient verbalizing understanding and agreement with all recommendations and education provided. IMAGE COUNT: [id number] G-CODES: SWALLOWING G8996 Current Status: SWALLOWING G8997 Goal Status: SWALLOWING G8998 Discharge Status: Hugh Sanchez M.A., CCC-CHILD PSYCHOLOGY TEACHER [facility] Speech-Language Pathology Department [email or web address] 02/11/18 1606 <Electronically signed by Hugh Sanchez M.A., CFY-CHILD PSYCHOLOGY TEACHER> Date Hugh Sanchez M.A., CFY-CHILD PSYCHOLOGY TEACHER Co-Signature Required for all Medicare patients Date/Time Co-Signature CC: SWALLOWING FUNCTION Observed: 02/11/2018 Status: F Source: [place] W/VIDEO 12:54 PM [facility] REPOSITORY [facility] Imaging Services [address] [place] [id number] Swallowing Function w/Video MR#: [id number] Acct: [id number] Name: WILVERLOUISE Rep #: [id number] : 1970 F 47 From: Ivan Durand MD PCP: Bear Meyer MD, Chi Status: REG CLI Study: Swallowing Function w/Video Date of Exam: 02/11/18 Exam# [id number] Ordering Dr: Bear Meyer MD STUDY: SWALLOWING STUDY REASON FOR EXAM: Female, 47 years old. Dysphagia. TECHNIQUE: The examination was performed with Speech Pathology in attendance. Under fluoroscopic observation, the patient ingested thin barium, thick barium, barium pudding, and barium coated cracker. FLUOROSCOPY TIME: 1:26 minutes/seconds. 1236 fluoroscopic images were obtained. RADIOLOGIST INVOLVEMENT: Radiologist was present and providing direct supervision. COMPARISON: None. FINDINGS: The following was observed during swallowing of the various mixtures of barium: Thin Barium: There was no evidence of aspiration or laryngeal penetration. Barium Pudding: There was no evidence of aspiration or laryngeal penetration. Barium Coated Cracker: There was no evidence of aspiration or laryngeal penetration. RAD/Swallowing Function w/Video IMPRESSION: Normal tailored barium swallow study. No evidence of increased risk for aspiration. The swallow study findings were discussed with the patient by the speech pathologist at the conclusion of the examination. Please see speech pathology report for more information and recommendations. Electronically Signed: Ivan Durand MD at 13:55 EDT Tel [phone], Service support , CC: Bear Meyer MD Wood Hacker: Signed METANEPHRINE FRA 24 HR Collected: 01/25/2018 Status: F Source: [place] UR 8:00 AM [facility] REPOSITORY TYPE CODE TESTS RESULT OUT OF RANGE REFERENCE UNITS LAB L3600.1400 Undefined ug/L Normal 190 NORMETANEPH, UR LAB L3600.1500 82-500 ug/24 hr Normal 299 NORMETANEPH, U24 Result Comment: (Hypertensive) >17 years 11 months: 110 - 1050 LAB L3600.1600 Undefined ug/L METANEPHRINE,UR Normal 85 LAB L3600.1700 45-290 ug/24 hr METANEPH,U24 Normal 134 Result Comment: (Hypertensive) >17 years 11 months: 35 - 460 Performed By: #### L3600.1100, L3600.5400 #### [facility] (refer to report for specific site) refer to report for address and phone number CORTISOL, 24 HR UR Collected: 01/25/2018 Status: F Source: [place] FREE 8:00 AM [facility] REPOSITORY TYPE CODE TESTS RESULT OUT OF RANGE REFERENCE UNITS LAB L3600.5500 Undefined ug/L Normal 8 CORTISOL,U FREE LAB L3600.5600 0-50 ug/24 hr Normal 13 CORTISOL,FR U24 Result Comment: This test was developed and its performance characteristics determined by [facility]. It has not been cleared or approved by the Food and Drug Administration. Performed at: [facility] [employer] [id number] Refrigerated National Truck Driver: Christopher Stafford MD, Phone: [phone] Performed By: #### L3600.1100, L3600.5400 #### [facility] (refer to report for specific site) refer to report for address and phone number ALDOSTERONE, SERUM Collected: 01/22/2018 Status: F Source: [place] 2:48 PM [facility] REPOSITORY TYPE CODE TESTS RESULT OUT OF RANGE REFERENCE UNITS LAB L3300.1100 0.0-30.0 ng/dL Normal ALDOSTERON 4374 3.1 Result Comment: This test was developed and its performance characteristics determined by [facility]. It has not been cleared or approved by the Food and Drug Administration. Performed By: #### L3300.1100, L3400.4000 #### [facility] (refer to report for specific site) refer to report for address and phone number RENIN, PLASMA Collected: 01/22/2018 Status: F Source: [place] 2:48 PM [facility] REPOSITORY TYPE CODE TESTS RESULT OUT OF RANGE REFERENCE UNITS LAB L3400.4000 0.167-5.380 ng/mL/hr Normal RENIN,PL 0.828 2005 Result Comment: This test was developed and its performance characteristics determined by [facility]. It has not been cleared or approved by the Food and Drug Administration. Performed at: [facility] [employer] [id number] Refrigerated National Truck Driver: Christopher Stafford MD, Phone: [phone] Performed By: #### L3300.1100, L3400.4000 #### [facility] (refer to report for specific site) refer to report for address and phone number 12 LEAD ELECTROCARDIOGRAM Observed: 01/21/2018 Status: F Source: [place] 1:53 PM [facility] Cardiovascular Services [address] [place] [address] 12 Lead EKG 01/17/18 0833 MR#: [id number] Acct: [id number] Name: LOUISE ROLAND Rep #: [id number] : 1970 47 From: Wagner Tolbert MD Attending Dr: Status: DEP ER Ordering Dr: Rayne Adamson MD Date: 01/17/18 Location: ED Sex: F C Admitted: Test Reason : DIZZINESS Blood Pressure : / mmHG Vent. Rate : 090 BPM Atrial Rate : 090 BPM P-R Int : 196 ms QRS Dur : 098 ms QT Int : 370 ms P-R-T Axes : 057 075 057 degrees QTc Int : 452 ms Normal sinus rhythm Nonspecific ST and T wave abnormality Abnormal ECG Confirmed by DIDI VALENZUELA, WAGNER ([id number]), editor city ALYCIA MOSLEY ([id number]) on 01/21/2018 1:53:16 PM Referred By: RANCHO Confirmed By:WAGNER TOLBERT MD 01/21/18 1353 Date Wagner Tolbert MD CC: Rayne Adamson MD; Bear Meyer MD Signed EMERGENCY DEPARTMENT Observed: 01/17/2018 Status: F Source: [place] SUMMARY 4:27 PM [facility] REPOSITORY [facility] Medical Records Department [address] [place] [address] Emergency Department Summary 01/17/18 0828 MR#: [id number] Acct: [id number] Name: LOUISE ROLAND Rep #: [id number] : 1970 47 From: Rayne Adamson MD PCP: Bear Meyer MD, Chi Status: DEP ER - ER Visit Summary Date of Service: 01/17/18 Chief Complaint: Dizzy History of Present Illness: The patient is a 47 F with onset of lightheadedness and dizziness last evening. Patient states it seems to come in waves. She does report some mild palpitations. She describes a head pressure without a real headache. She states she then gets a pressure sensation that washes over her body. She did take a caffeine pill this morning but states she has taken them intermittently in the past and never had this reaction. She also drank half a cup of coffee. Physical Examination: Vital signs include blood pressure of 183/102, temperature 98.1, heart rate 87, respiratory rate 16, pulse ox 100% on room air. Patient is in no acute distress and is nontoxic appearing. Head and neck examination is normal. Heart is regular rate and rhythm. Palpable pulses are noted throughout. Lungs are clear with good air movement throughout. Abdomen is soft and nontender. Bowel sounds are noted. Extremity examination is unremarkable with full range of motion. Neurologic examination reveals no focal deficits. Test Results: EKG is sinus at 90. She has mild ST depression laterally that is mildly more pronounced than prior study. CBC and chemistry studies are normal. Troponin is negative. Patency test negative. TSH is normal. Chest x-ray shows no acute process. CT head shows no acute process. Emergency Department Course and Treatment: Patient has been observed here. Pressure is currently 178/98. Patient states she just had her blood pressure checked 3 weeks ago when she saw Dr. Meyer in the office. My concern is that her hypertension is secondary to her coffee and caffeine supplements. I encouraged her to stop this. She will check her blood pressure regularly and keep record of this. She will follow with Dr. Meyer. Treatment Plan: [] Disposition: Discharge Impression: 1. Dizziness 2. Hypertension, to be monitored This note was generated with [employer] dictation software. It may contain incorrect words, spelling, and punctuation that were not noted in review of the chart prior to signing ED Disposition - Plan for ED Patient: Chief Complaint: Dizziness Referrals: Bear Meyer Chi, MD [Primary Care Provider] - What to do if you have Problems For any increased pain, shortness of breath, bleeding, nausea or vomiting, chest pain, or any unexpected problems, contact your Primary Care Provider. Call [facility] ([phone]) or report to the closest Emergency Room. Call 911 if necessary. 01/17/18 4276 <Electronically signed by Rayne Adamson MD> Date Rayne Adamson MD Cosigner Signature (If Indicated): Date CC: Bear Meyer MD DISCHARGE INSTRUCTION Observed: 01/17/2018 Status: F Source: [place] 10:39 AM [facility] REPOSITORY [facility] Medical Records Department [address] [place] [address] Discharge Instruction 01/17/18 1038 MR#: [id number] Acct: [id number] Name: LOUISE ROLAND Rep #: [id number] : 1970 47 From: Rayne Adamson MD PCP: Bear Meyer MD, Chi Status: REG ER ED Disposition - Plan for ED Patient: Disposition: Home or Assisted Living Chief Complaint: Dizziness Instructions: ED Dizziness UKO, ED Hypertension Poss Referrals: Bear eMyer Chi, MD [Primary Care Provider] - 1 Week What to do if you have Problems For any increased pain, shortness of breath, bleeding, nausea or vomiting, chest pain, or any unexpected problems, contact your Primary Care Provider. Call [facility] ([phone]) or report to the closest Emergency Room. Call 911 if necessary. 01/17/18 1039 <Electronically signed by Rayne Adamson MD> Date Rayne Adamson MD Cosigner Signature (If Indicated): Date CC: Bear Meyer MD CBC W/DIFF, AUTOMATED Collected: 01/17/2018 Status: F Source: [place] 9:25 AM [facility] REPOSITORY TYPE CODE TESTS RESULT OUT OF RANGE REFERENCE UNITS LAB L100.1000 4.4-11.0 K/mm3 Normal WBC 7.5 LAB L100.1200 4.2-5.4 M/mm3 Normal RBC 4.57 LAB L100.1300 12.0-15.0 g/dl Normal HGB 13.2 LAB L100.1400 37-47 % Normal HCT 41.1 LAB L100.1500 81-99 fL Normal MCV 89.9 LAB L100.1600 27.0-32.0 pg Normal MCH 28.9 LAB L100.1700 32-36 g/gl Normal MCHC 32.1 LAB L100.1810 11.6-14.6 % Normal RDW CV 13.5 LAB L100.1820 35.1-43.9 fl High RDW SD 44.0 LAB L100.1900 150-450 K/mm3 Normal PLT 291 LAB L100.2000 6.2-12.0 fl Normal MPV 10.1 LAB L100.2100 47-70 % Normal NEUT% 67.0 LAB L100.2200 19-41 % Normal LY% 25.0 LAB L100.2300 0-10 % Normal MONO% 6.3 LAB L100.2400 0-5 % Normal EO% 1.5 LAB L100.2500 0-1 % Normal BASO% 0.1 LAB L100.2550 0.0-0.9 % Normal IM GRAN % 0.100 Result Comment: IG% - Immature Granulocytes (promyelocytes, myelocytes and metamyelocytes) > 1% indicates that a LEFT SHIFT is Present. LAB L100.2620 2.0-7.7 X10 3/uL Normal Absolute Neut 5.0 LAB L100.2720 0.83-4.51 X10 3/ul Normal Absolute Lymph 1.87 Performed By: #### L100.0100 #### [facility] [place], [address] ,SERUM,HCG QUALI. Collected: Status: F Source: [place] 01/17/2018 9:25 AM [facility] REPOSITORY TYPE CODE TESTS RESULT OUT OF REFERENCE UNITS RANGE LAB L700.7000 0-9 Nonpreg Negative Normal HCGSQUAL NEGATIVE LAB L700.6700 =>Qualitative mIU/mL Normal HCG Qual < 1 triggr Performed By: #### L700.6800 #### [facility] [address] [place], [address] BASIC METABOLIC Collected: 01/17/2018 Status: F Source: [place] PROFILE (BMP) 9:25 AM [facility] REPOSITORY TYPE CODE TESTS RESULT OUT OF RANGE REFERENCE UNITS LAB L501.0100 74-106 mg/dL Normal GLU 96 Result Comment: Please note revised GLUCOSE reference range effective 2017. LAB L501.1000 7-18 mg/dL Normal BUN 9 LAB L501.1100 0.55-1.02 mg/dL High CREAT,SERUM 1.09 Result Comment: The validity of the calculated GFR AND GFRAA in patients over 70 years has not been determined. Clinical correlation is essential. LAB L501.1110 >60 mL/min Low EST GFR 58 Result Comment: Non- GFR Calc LAB L501.1115 >60 mL/min Normal EST GFR - AA 70 Result Comment: GFR Calc LAB L501.1255 ml/min Normal Estimated CRCL 65.75 LAB L501.1300 10-20 RATIO Low BUN/CRE 8.3 LAB L501.2200 8.5-10 mg/dL Normal .1 CA 9.5 LAB L501.5300 136-14 mmol/L Normal 5 NA 142 LAB L501.5600 3.5-5. mmol/L Normal 1 K 4.2 Result Comment: Moderate Hemolysis, Result may be falsely increased. LAB L501.5900 98-107 mmol/L Normal CL 107 LAB L501.6100 21.0-32.0 mmol/L Normal CO2 26.0 LAB L501.6200 5-15 Normal 9 GAP Performed By: #### L500.2500, L501.4010, L501.9520 #### [facility] [address] [place], [place], [address] TROPONIN-I Collected: 01/17/2018 Status: F Source: [place] 9:25 AM [facility] REPOSITORY TYPE CODE TESTS RESULT OUT OF RANGE REFERENCE UNITS LAB L501.4010 <0.045 ng/mL Normal < 0.015 TROPONIN-I Result Comment: TROPONIN-I EXPECTED VALUES <0.045 Negative 0.045 - 0.590 Consistent with Cardiac Damage > OR = 0.600 Critical Value Not every elevated troponin is indicative of MD. These values should be used with clinical judgement in examining the patient's clinical picture for diagnosis. To establish a diagnosis of MD versus myocardial injury, there must be a demonstrated rise and/or fall in the troponin values, in addition to ischemic symptoms, EKG changes, new regional wall motion abnormality, and/or angiographical evidence. PLEASE NOTE: REFERENCE RANGES EDITED 17 Performed By: #### L500.2500, L501.4010, L501.9520 #### [facility] [address] [facility] [place], [address] THYROID STIM HORMONE Collected: 01/17/2018 Status: F Source: [place] (TSH) 9:25 AM [facility] REPOSITORY TYPE CODE TESTS RESULT OUT OF RANGE REFERENCE UNITS LAB L501.9520 0.358-3.74 uIU/mL Normal TSH 1.86 Performed By: #### L500.2500, L501.4010, L501.9520 #### [facility] [address] [facility] [place], [address] BRAIN/HEAD WITHOUT Observed: 01/17/2018 Status: F Source: [place] CONTRAST 8:27 AM [facility] REPOSITORY [facility] Imaging Services [address] [place] [address] Brain/Head without Contrast MR#: [id number] Acct: [id number] Name: LOUISE ROLAND Wander Rep #: [id number] : 1970 F 47 From: Tanika Eason MD PCP: Mitch VALENZUELA,Bear Chi Status: REG ER Study: Brain/Head without Contrast Date of Exam: 01/17/18 Exam# [id number] Ordering Dr: Rayne Adamson MD STUDY: CT BRAIN WITHOUT CONTRAST REASON FOR EXAM: Female, 47 years old. Dizziness since last night. RADIATION DOSAGE (If Supplied By Facility): CTDIvol = ( 44.99 ) mGy, DLP = ( 745.49 ) mGycm TECHNIQUE: Transaxial CT imaging of the brain was performed without administration of intravenous contrast material. Individualized dose optimization techniques were used for this CT. COMPARISON: None. FINDINGS: Normal soft tissue structures. Normal calvarium. Normal size ventricles and extra-axial spaces for the patient's age. Normal white matter tracts of the cerebral hemispheres. Normal basal ganglia and thalami. Normal brainstem. Normal cerebellum. There is no intracranial hemorrhage. There are no findings of an acute ischemic infarction. Normal visualized paranasal sinuses. CT/Brain/Head without Contrast IMPRESSION: No acute intracranial process. Electronically Signed: Tanika Eason MD at 10:16 EDT Tel , Service support , CC: Rayne Adamson MD; Bear Meyer MD Wood Hacker: Signed CHEST PA AND LATERAL Observed: 01/17/2018 Status: F Source: [place] 8:27 AM [facility] REPOSITORY [facility] Imaging Services [address] [place] [address] Chest PA and Lateral MR#: [id number] Acct: [id number] Name: LOUISE ROLAND Rep #: [id number] : 1970 F 47 From: Ivan Durand MD PCP: Bear Meyer MD, Chi Status: DEP ER Study: Chest PA and Lateral Date of Exam: 01/17/18 Exam# [id number] Ordering Dr: Rayne Adamson MD STUDY: X-RAY CHEST REASON FOR EXAM: Female, 47 years old. Chest pain and dizziness. TECHNIQUE: AP and lateral views of the chest. COMPARISON: Comparison is made with prior examination dated August 03, 2015. FINDINGS: EKG electrodes are seen. The lungs are clear and expanded. There is no demonstrated pleural abnormality. Normal size heart. Normal mediastinum and sweta. Normal visualized pulmonary arteries. Normal visualized aortic arch and descending thoracic aorta. Normal visualized thoracic spine. Normal visualized ribs, clavicles, and shoulders. There is no demonstrated abnormality of the visualized soft tissue structures of the upper abdomen. RAD/Chest PA and Lateral IMPRESSION: Normal x-ray examination of the chest. Electronically Signed: Ivan Durand MD at 10:52 EDT Tel [phone], Service support , CC: Rayne Adamson MD; Bear Meyer MD Wood Hacker: Signed CNOV Observed: 01/14/2018 Status: COMPLETED Source: [place] 3:00 PM [facility] REPOSITORY Office Visit (GYNMN) LOUISE ROLAND ([id number]) 1970 F Date Time Provider Department 01/14/18 3:00 PM RADHA GERMAN During your visit today, we recorded the following information about you: Blood pressure Weight Height Last Period 112/80 87.1 kg 1.727 m 01/04/18 Radha German MD 01/14/2018 4:07 PM Signed CHRONIC PELVIC PAIN FOLLOW UP VISIT Louise Roland is a 47 year old female who presents for continued management of chronic pelvic pain. HISTORY SINCE LAST VISIT: patient states since her last visit she has been feeling well. Patient states her pain started again on Sunday. Patient states she believes the pain was gone for about 5 weeks. Intensity of pain: moderate Average Pain level: 7 on a scale of 0-10, now it's a 5 /10 Emergency room visits for pain since last visit: none Level of physical activity and mobility: more active Quality of sleep: good Mood: good Side effects of medications for pain: none Notes from last visit 12/04/[address] Lucero MD: ASSESSMENT ? Encounter Diagnosis ? ? ICD-10-CM ? 1. Trigger point of abdomen R10.9 TRIGGER POINT INJECTION MULTI 1-2 MUSCLE GR 2. Chronic pelvic pain in female R10.2 TRIGGER POINT INJECTION MULTI 1-2 MUSCLE GR ? G89.29 ? PLAN ? r abd AND vaginal wall tpi done. Doing well ? Follow up in 5 wks Radha Greman MD ? <<<Procedure >>> ?? UNIVERSAL PROTOCOL / SAFETY CHECKLIST ?? Procedure to be performed: R abd and vaginal wall trigger point series ?? Sign in Communication: Completed ?? Time Out: Team Confirms the Correct Patient, Correct Procedure, Correct Site and Site Marking, Correct Position (if applicable), Prep and Dry Time (if applicable). Time: 300pm ?? Affirmation of Time Out: YES ?? Sign Out Discussion: Completed ?? PROCEDURE NOTE: Area prepped with alcohol swab 10 mL 0.25% bupivicaine mixed in a 10 mL syringe. Skin was prepped in a sterile fashion. Right abd wall Affected area was injected in 1 muscle Groups (4 areas) with 10 mL of the bupivicaine solution using a 22g needle. Patient tolerated the procedure well. ? ? Area prepped with baby shampoo. 10 mL 0.25% bupivicaine mixed in a 10 mL syringe. Skin was prepped in a sterile fashion. Right vaginal wall Affected area was injected in 1 muscle Groups (3 areas) with 10 mL of the bupivicaine solution using a 22g needle. Patient tolerated the procedure well. Patient tolerated procedure well. ?? 0.25 % Bupivacaine 10 ML --- lot # [id number] EXP: [id number] SUBJECTIVE ROS OBJECTIVE There were no vitals taken for this visit. PHYSICAL EXAMINATION: Physical Exam Genitourinary: Genitourinary Comments: Abdominal tenderness tender rlq 2 areas Abdominal myofacial trigger points - + carnetts RIGHT SIDED Pubococcygeus 0 Iliococcygeus 0 Coccygeus 2 Obturator 0 LEFT SIDED Pubococcygeus 0 Iliococcygeus 0 Coccygeus 0 Obturator 0 (Pain Scale 1 to 3, 3= extreme) RV exam - deferred ASSESSMENT Encounter Diagnosis ICD-10-CM 1. Chronic pelvic pain in female R10.2 TRIGGER POINT INJECTION MULTI 1-2 MUSCLE GR G89.29 2. Trigger point of abdomen R10.9 TRIGGER POINT INJECTION MULTI 1-2 MUSCLE GR Doing well since injection 5 wks ago PLAN 1. Repeat R abd AND vag tpi 2. Extend visit to 6 wks for TPi Radha German MD <<<Procedure >>> ?? UNIVERSAL PROTOCOL / SAFETY CHECKLIST ?? Procedure to be performed: right abd wall AND r vaginal trigger point series ?? Sign in Communication: Completed ?? Time Out: Team Confirms the Correct Patient, Correct Procedure, Correct Site and Site Marking, Correct Position (if applicable), Prep and Dry Time (if applicable). Time: 320pm ?? Affirmation of Time Out: YES ?? Sign Out Discussion: Completed ?? PROCEDURE NOTE: Area prepped with alcohol swab 10 mL 0.25% bupivicaine mixed in a 10 mL syringe. Skin was prepped in a sterile fashion. Right lower abd wall Affected area was injected in 1 muscle Groups (2 areas) with 10 mL of the bupivicaine solution using a 22g needle. Patient tolerated the procedure well. ? 10 mL 0.25% bupivicaine mixed in a 10 mL syringe. Skin was prepped in a sterile fashion. Right vaginal wall Affected area was injected Into 1 muscle groups (coccygeus only) with 10 mL of the bupivicaine solution using a 22g needle. Patient tolerated the procedure well. ?? Patient tolerated procedure well. ?? 0.25 % Bupivacaine 10 ML --- lot # [id number] EXP: [id number] Rosina Hopson Ma 01/14/2018 2:46 PM Signed Medical Receptionist Medical Assistant offered: Patient declines. Rosina Hopson Ma January 14, 2018 2:44 PM Referring Provider: RADHA GERMAN [[id number]] Allergies As of Date: 01/14/2018 Noted Allergy Reaction DUST 04/27/2010 9 - Itching IMITREX (SUMATRIPTAN) 04/27/2010 14 - Other: See Comments Comments: vision Date Reviewed: 01/14/2018 Reviewed by: Rosina Hopson Ma - Fully Assessed Reason for Visit: Established Patient [175] Cmt: tpi Primary Visit Diagnosis:Chronic pelvic pain in female [R10.2, G89.29] Other Visit Diagnosis:Trigger point of abdomen [R10.9] Order(s):TRIGGER POINT INJECTION MULTI 1-2 MUSCLE GR [04530PXO] Order #: [id number] Prescriptions as of 01/14/2018 Sig: ONDANSETRON HCL 4 MG TABLET Take 1 tablet by mouth every * LEVOTHYROXINE 100 MCG TABLET Take 100 mcg by mouth daily b* FAMOTIDINE 40 MG TABLET Take 40 mg by mouth twice bri* HYDROCORTISONE 0.5 % LOTION as needed. ZOLPIDEM 10 MG TABLET 5 mg twice daily. CYCLOBENZAPRINE 10 MG TABLET Take 1 tablet by mouth three * FLUTICASONE 50 MCG/ACTUATION * Use 2 Sprays in each nostril * ALBUTEROL SULFATE HFA 90 MCG/* Inhale 2 Puffs as instructed * Medication notes this encounter ALBUTEROL SULFATE HFA 90 MCG/ACTUATION AEROSOL INHALER >> Rosina Hopson Ma 01/14/2018 2:43 PM >> ROSINA HOPSON MA [facility] Jan 14, 2018 2:43 PM finished Problem List As Of Date 01/14/2018 Noted Resolved Abdominal pain, epigastric [R10.13] INVALID FOR* GERD (gastroesophageal reflux disease) [K21.9] INVALID FOR* Seasonal allergies [J30.2] INVALID FOR* Obesity (BMI 35.0-39.9 without comorbidity) [E6*INVALID FOR* Ilioinguinal neuralgia of right side [G57.91] INVALID FOR* High-tone pelvic floor dysfunction [N94.89] INVALID FOR* Trigger point [M79.1] INVALID FOR* Deep dyspareunia [N94.12] INVALID FOR* Visit Notes: >> Rosina Hopson Ma [facility] Jan 14, 2018 2:44 PM Status: Signed Medical Receptionist Medical Assistant offered: Patient declines. Rosina Hopson Ma January 14, 2018 2:44 PM Encounter Status:Closed by RADHA GERMAN MD on 01/14/18 PROGRESS Observed: 01/10/2018 Status: COMPLETED Source: [place] 9:50 AM [facility] REPOSITORY O ID: [id number] Author: Radha German Service: (none) Author Type: Physician Type: Progress Notes Filed: 01/14/2018 4:07 PM Note Text: CHRONIC PELVIC PAIN FOLLOW UP VISIT Louise Roland is a 47 year old female who presents for continued management of chronic pelvic pain. HISTORY SINCE LAST VISIT: patient states since her last visit she has been feeling well. Patient states her pain started again on Sunday. Patient states she believes the pain was gone for about 5 weeks. Intensity of pain: moderate Average Pain level: 7 on a scale of 0-10, now it's a 5 /10 Emergency room visits for pain since last visit: none Level of physical activity and mobility: more active Quality of sleep: good Mood: good Side effects of medications for pain: none Notes from last visit 12/04/[address] Lucero MD: ASSESSMENT ? Encounter Diagnosis ? ? ICD-10-CM ? 1. Trigger point of abdomen R10.9 TRIGGER POINT INJECTION MULTI 1-2 MUSCLE GR 2. Chronic pelvic pain in female R10.2 TRIGGER POINT INJECTION MULTI 1-2 MUSCLE GR ? G89.29 ? PLAN ? r abd AND vaginal wall tpi done. Doing well ? Follow up in 5 wks Radha German MD ? <<<Procedure >>> ?? UNIVERSAL PROTOCOL / SAFETY CHECKLIST ?? Procedure to be performed: R abd and vaginal wall trigger point series ?? Sign in Communication: Completed ?? Time Out: Team Confirms the Correct Patient, Correct Procedure, Correct Site and Site Marking, Correct Position (if applicable), Prep and Dry Time (if applicable). Time: 300pm ?? Affirmation of Time Out: YES ?? Sign Out Discussion: Completed ?? PROCEDURE NOTE: Area prepped with alcohol swab 10 mL 0.25% bupivicaine mixed in a 10 mL syringe. Skin was prepped in a sterile fashion. Right abd wall Affected area was injected in 1 muscle Groups (4 areas) with 10 mL of the bupivicaine solution using a 22g needle. Patient tolerated the procedure well. ? ? Area prepped with baby shampoo. 10 mL 0.25% bupivicaine mixed in a 10 mL syringe. Skin was prepped in a sterile fashion. Right vaginal wall Affected area was injected in 1 muscle Groups (3 areas) with 10 mL of the bupivicaine solution using a 22g needle. Patient tolerated the procedure well. Patient tolerated procedure well. ?? 0.25 % Bupivacaine 10 ML --- lot # [id number] EXP: [id number] SUBJECTIVE ROS OBJECTIVE There were no vitals taken for this visit. PHYSICAL EXAMINATION: Physical Exam Genitourinary: Genitourinary Comments: Abdominal tenderness tender rlq 2 areas Abdominal myofacial trigger points - + carnetts RIGHT SIDED Pubococcygeus 0 Iliococcygeus 0 Coccygeus 2 Obturator 0 LEFT SIDED Pubococcygeus 0 Iliococcygeus 0 Coccygeus 0 Obturator 0 (Pain Scale 1 to 3, 3= extreme) RV exam - deferred ASSESSMENT Encounter Diagnosis ICD-10-CM 1. Chronic pelvic pain in female R10.2 TRIGGER POINT INJECTION MULTI 1-2 MUSCLE GR G89.29 2. Trigger point of abdomen R10.9 TRIGGER POINT INJECTION MULTI 1-2 MUSCLE GR Doing well since injection 5 wks ago PLAN 1. Repeat R abd AND vag tpi 2. Extend visit to 6 wks for TPi Radha German MD <<<Procedure >>> ?? UNIVERSAL PROTOCOL / SAFETY CHECKLIST ?? Procedure to be performed: right abd wall AND r vaginal trigger point series ?? Sign in Communication: Completed ?? Time Out: Team Confirms the Correct Patient, Correct Procedure, Correct Site and Site Marking, Correct Position (if applicable), Prep and Dry Time (if applicable). Time: 320pm ?? Affirmation of Time Out: YES ?? Sign Out Discussion: Completed ?? PROCEDURE NOTE: Area prepped with alcohol swab 10 mL 0.25% bupivicaine mixed in a 10 mL syringe. Skin was prepped in a sterile fashion. Right lower abd wall Affected area was injected in 1 muscle Groups (2 areas) with 10 mL of the bupivicaine solution using a 22g needle. Patient tolerated the procedure well. ? 10 mL 0.25% bupivicaine mixed in a 10 mL syringe. Skin was prepped in a sterile fashion. Right vaginal wall Affected area was injected Into 1 muscle groups (coccygeus only) with 10 mL of the bupivicaine solution using a 22g needle. Patient tolerated the procedure well. ?? Patient tolerated procedure well. ?? 0.25 % Bupivacaine 10 ML --- lot # [id number] EXP: [id number] CBC W/DIFF, AUTOMATED Collected: 12/27/2017 Status: F Source: [place] 2:12 PM [facility] REPOSITORY TYPE CODE TESTS RESULT OUT OF RANGE REFERENCE UNITS LAB L100.1000 4.4-11.0 K/mm3 High WBC 13.1 LAB L100.1200 4.2-5.4 M/mm3 Normal RBC 4.22 LAB L100.1300 12.0-15.0 g/dl Normal HGB 12.4 LAB L100.1400 37-47 % Normal HCT 38.0 LAB L100.1500 81-99 fL Normal MCV 90.0 LAB L100.1600 27.0-32.0 pg Normal MCH 29.4 LAB L100.1700 32-36 g/gl Normal MCHC 32.6 LAB L100.1810 11.6-14.6 % Normal RDW CV 13.6 LAB L100.1820 35.1-43.9 fl Normal RDW SD 43.9 LAB L100.1900 150-450 K/mm3 Normal PLT 286 LAB L100.2000 6.2-12.0 fl Normal MPV 11.4 LAB L100.2100 47-70 % Normal NEUT% 69.6 LAB L100.2200 19-41 % Normal LY% 22.7 LAB L100.2300 0-10 % Normal MONO% 6.4 LAB L100.2400 0-5 % Normal EO% 0.9 LAB L100.2500 0-1 % Normal BASO% 0.2 LAB L100.2550 0.0-0.9 % Normal IM GRAN % 0.200 Result Comment: IG% - Immature Granulocytes (promyelocytes, myelocytes and metamyelocytes) > 1% indicates that a LEFT SHIFT is Present. LAB L100.2620 2.0-7.7 X10 3/uL High Absolute Neut 9.1 LAB L100.2720 0.83-4.51 X10 3/ul Normal Absolute Lymph 2.96 Performed By: #### L100.0100 #### [facility] [address] [place], [address] COMPREHENSIVE METABOLIC Collected: 12/27/2017 Status: F Source: [facility] 2:12 PM [facility] REPOSITORY TYPE CODE TESTS RESULT OUT OF RANGE REFERENCE UNITS LAB L501.0100 74-106 mg/dL Normal GLU 82 Result Comment: Please note revised GLUCOSE reference range effective 2017. LAB L501.1000 7-18 mg/dL Normal BUN 10 LAB L501.1100 0.55-1.02 mg/dL Normal CREAT,SERUM 0.90 Result Comment: The validity of the calculated GFR AND GFRAA in patients over 70 years has not been determined. Clinical correlation is essential. LAB L501.1110 >60 mL/min Normal EST GFR 72 Result Comment: Non- GFR Calc LAB L501.1115 >60 mL/min Normal EST GFR - AA 87 Result Comment: GFR Calc LAB L501.1300 10-20 RATIO Normal BUN/CRE 11.2 LAB L501.1500 6.4-8.2 g/dL T Normal PROT 7.6 LAB L501.1800 3.2-5.0 g/dL Normal ALB 3.4 LAB L501.1950 2.2-4.2 g/dL Normal GLOB 4.2 LAB L501.2000 0.9-2.4 RATIO Low A/G 0.8 LAB L501.2200 8.5-10.1 mg/dL CA Normal 8.8 LAB L501.4100 15-37 U/L Normal AST 16 LAB L501.4305 45-117 U/L Normal ALK P 78 LAB L501.4405 13-56 U/L Normal ALT 17 LAB L501.4600 0.20-1.00 mg/dL T Normal BILI 0.20 LAB L501.5300 136-145 mmol/L NA Normal 139 LAB L501.5600 3.5-5.1 mmol/L K Normal 3.8 LAB L501.5900 98-107 mmol/L CL Normal 106 LAB L501.6100 21.0-32.0 mmol/L Normal CO2 23.0 LAB L501.6200 5-15 Normal GAP 10 Performed By: #### L500.4050, L501.9520 #### [facility] [address] [place], [place], [address] THYROID STIM HORMONE Collected: 12/27/2017 Status: F Source: [place] ([facility]) 2:12 PM [facility] REPOSITORY TYPE CODE TESTS RESULT OUT OF RANGE REFERENCE UNITS LAB L501.9520 0.358-3.74 uIU/mL High TSH 4.04 Performed By: #### L500.4050, L501.9520 #### [facility] [address] [place], [place], [address] CNOV Observed: 12/04/2017 Status: COMPLETED Source: [place] 2:30 PM [facility] REPOSITORY [facility] LOUISE ROLAND ([id number]) 1970 F Date Time Provider Department 12/04/17 2:[address] [facility] During your visit today, we recorded the following information about you: Blood pressure Weight Height Last Period 104 91.1 kg 1.727 m 11/25/17 Radha German MD 12/04/2017 3:15 PM Signed CHRONIC PELVIC PAIN FOLLOW UP VISIT Louise Roland is a 47 year old female who presents for continued management of chronic pelvic pain. HISTORY SINCE LAST VISIT: Patient states her last set of TPI helped a lot. Patient has been more active and states she lost weight due to less pain. Intensity of pain: mild Feels shot helps for 4 wks Last injection on R vag/abd wall 11/06/17 Average Pain level: today 4/10, average 7 on a scale of 0-10 Emergency room visits for pain since last visit: none Level of physical activity and mobility: much more active, walking and bending. Quality of sleep: good Mood: really good Side effects of medications for pain: none Notes from last visit 11/06/[address] Lucero MD: ASSESSMENT ? Encounter Diagnosis ? ? ICD-10-CM ? 1. Trigger point of abdomen R10.9 TRIGGER POINT INJECTION MULTI 1-2 MUSCLE GR 2. Chronic pelvic pain in female R10.2 ? ? G89.29 ? PLAN ? Repeat abd and vaginal tpi done ? Follow up in 1 month Radha German MD ? UNIVERSAL PROTOCOL / SAFETY CHECKLIST ?? Procedure to be performed: abdominal and vaginal ?trigger point series ?? Sign in Communication: Completed ?? Time Out: Team Confirms the Correct Patient, Correct Procedure, Correct Site and Site Marking, Correct Position (if applicable), Prep and Dry Time (if applicable). Time: 2:40pm ?? Affirmation of Time Out: YES ?? Sign Out Discussion: Completed ?? PROCEDURE NOTE: ? Area prepped with alcohol swab 10 mL 0.25% bupivicaine mixed in a 10 mL syringe. Skin was prepped in a sterile fashion. Right lower abd wall ?Affected area was injected in 1 ?muscle Groups with 10 mL of the bupivicaine solution using a 22g needle. Patient tolerated the procedure well. ?? ? Area prepped with baby shampoo. 10 mL 0.25% bupivicaine mixed in a 10 mL syringe. Skin was prepped in a sterile fashion. Right vaginal wall ?Affected area was injected in 1 ?muscle Groups (3 areas)with 10 mL of the bupivicaine solution using a 22g needle. Patient tolerated the procedure well. ?? Patient tolerated procedure well. ?? 0.25 % Bupivacaine 10 ML --- lot # [id number]??EXP: 2017 SUBJECTIVE ROS OBJECTIVE There were no vitals taken for this visit. PHYSICAL EXAMINATION: Physical Exam Genitourinary: Genitourinary Comments: Abdominal tenderness + rlq Abdominal myofacial trigger points - +_ carnetts Vaginal Vestibular tenderness neg Rectal tenderness neg Bladder base tenderness neg Uterine position/tenderness neg/ (A=Anteverted, R= retroverted, M= mid-position) Retrocervical tenderness neg Cervical motion tenderness neg Adnexal tenderness neg Pelvic Floor Musculature RIGHT SIDED Pubococcygeus 2 Iliococcygeus 2 Coccygeus 1 Obturator 2 LEFT SIDED Pubococcygeus 0 Iliococcygeus 0 Coccygeus 0 Obturator 0 (Pain Scale 1 to 3, 3= extreme) ASSESSMENT Encounter Diagnosis ICD-10-CM 1. Trigger point of abdomen R10.9 TRIGGER POINT INJECTION MULTI 1-2 MUSCLE GR 2. Chronic pelvic pain in female R10.2 TRIGGER POINT INJECTION MULTI 1-2 MUSCLE GR G89.29 PLAN r abd AND vaginal wall tpi done. Doing well Follow up in 5 wks Radha German MD <<<Procedure >>> ?? UNIVERSAL PROTOCOL / SAFETY CHECKLIST ?? Procedure to be performed: R abd and vaginal wall trigger point series ?? Sign in Communication: Completed ?? Time Out: Team Confirms the Correct Patient, Correct Procedure, Correct Site and Site Marking, Correct Position (if applicable), Prep and Dry Time (if applicable). Time: 300pm ?? Affirmation of Time Out: YES ?? Sign Out Discussion: Completed ?? PROCEDURE NOTE: Area prepped with alcohol swab 10 mL 0.25% bupivicaine mixed in a 10 mL syringe. Skin was prepped in a sterile fashion. Right abd wall Affected area was injected in 1 muscle Groups (4 areas) with 10 mL of the bupivicaine solution using a 22g needle. Patient tolerated the procedure well. ? Area prepped with baby shampoo. 10 mL 0.25% bupivicaine mixed in a 10 mL syringe. Skin was prepped in a sterile fashion. Right vaginal wall Affected area was injected in 1 muscle Groups (3 areas) with 10 mL of the bupivicaine solution using a 22g needle. Patient tolerated the procedure well. Patient tolerated procedure well. ?? 0.25 % Bupivacaine 10 ML --- lot # [id number] EXP: [id number] Rosina Hopson Ma 12/04/2017 2:22 PM Signed Medical Receptionist Medical Assistant offered: Patient declines. Rosina Hopson Ma December 04, 2017 2:20 PM Referring Provider: SELF [200] Allergies As of Date: 12/04/2017 Noted Allergy Reaction DUST 04/27/2010 9 - Itching IMITREX (SUMATRIPTAN) 04/27/2010 14 - Other: See Comments Comments: vision Date Reviewed: 12/04/2017 Reviewed by: Rosina Hopson Ma - Fully Assessed Reason for Visit: Established Patient [175] Cmt: TPI Primary Visit Diagnosis:Trigger point of abdomen [R10.9] Other Visit Diagnosis:Chronic pelvic pain in female [R10.2, G89.29] Order(s):TRIGGER POINT INJECTION MULTI 1-2 MUSCLE GR [[id number]] Order #: [id number] Prescriptions as of 12/04/2017 Sig: ONDANSETRON HCL 4 MG TABLET Take 1 tablet by mouth every * LEVOTHYROXINE 100 MCG TABLET Take 100 mcg by mouth daily b* FAMOTIDINE 40 MG TABLET Take 40 mg by mouth twice bri* HYDROCORTISONE 0.5 % LOTION as needed. ZOLPIDEM 10 MG TABLET 5 mg twice daily. CYCLOBENZAPRINE 10 MG TABLET Take 1 tablet by mouth three * ALBUTEROL SULFATE HFA 90 MCG/* Inhale 2 Puffs as instructed * FLUTICASONE 50 MCG/ACTUATION * Use 2 Sprays in each nostril * Problem List As Of Date 12/04/2017 Noted Resolved Abdominal pain, epigastric [R10.13] INVALID FOR* GERD (gastroesophageal reflux disease) [K21.9] INVALID FOR* Seasonal allergies [J30.2] INVALID FOR* Obesity (BMI 35.0-39.9 without comorbidity) [E6*INVALID FOR* Ilioinguinal neuralgia of right side [G57.91] INVALID FOR* High-tone pelvic floor dysfunction [N94.89] INVALID FOR* Trigger point [M79.1] INVALID FOR* Deep dyspareunia [N94.12] INVALID FOR* Visit Notes: >> Rosina Marino Dec 04, 2017 2:20 PM Status: Signed Medical Receptionist Medical Assistant offered: Patient declines. Rosina Hopson Ma December 04, 2017 2:20 PM Encounter Status:Closed by RADHA GERMAN MD on 12/04/17 PROGRESS Observed: 12/03/2017 Status: COMPLETED Source: [place] 6:14 PM [facility] REPOSITORY HNO ID: [id number] Author: Radha German Service: (none) Author Type: Physician Type: Progress Notes Filed: 12/04/2017 3:15 PM Note Text: CHRONIC PELVIC PAIN FOLLOW UP VISIT Louise Roland is a 47 year old female who presents for continued management of chronic pelvic pain. HISTORY SINCE LAST VISIT: Patient states her last set of TPI helped a lot. Patient has been more active and states she lost weight due to less pain. Intensity of pain: mild Feels shot helps for 4 wks Last injection on R vag/abd wall 11/06/17 Average Pain level: today 4/10, average 7 on a scale of 0-10 Emergency room visits for pain since last visit: none Level of physical activity and mobility: much more active, walking and bending. Quality of sleep: good Mood: really good Side effects of medications for pain: none Notes from last visit 11/06/[address] Lucero MD: ASSESSMENT ? Encounter Diagnosis ? ? ICD-10-CM ? 1. Trigger point of abdomen R10.9 TRIGGER POINT INJECTION MULTI 1-2 MUSCLE GR 2. Chronic pelvic pain in female R10.2 ? ? G89.29 ? PLAN ? Repeat abd and vaginal tpi done ? Follow up in 1 month Radha German MD ? UNIVERSAL PROTOCOL / SAFETY CHECKLIST ?? Procedure to be performed: abdominal and vaginal ?trigger point series ?? Sign in Communication: Completed ?? Time Out: Team Confirms the Correct Patient, Correct Procedure, Correct Site and Site Marking, Correct Position (if applicable), Prep and Dry Time (if applicable). Time: 2:40pm ?? Affirmation of Time Out: YES ?? Sign Out Discussion: Completed ?? PROCEDURE NOTE: ? Area prepped with alcohol swab 10 mL 0.25% bupivicaine mixed in a 10 mL syringe. Skin was prepped in a sterile fashion. Right lower abd wall ?Affected area was injected in 1 ?muscle Groups with 10 mL of the bupivicaine solution using a 22g needle. Patient tolerated the procedure well. ?? ? Area prepped with baby shampoo. 10 mL 0.25% bupivicaine mixed in a 10 mL syringe. Skin was prepped in a sterile fashion. Right vaginal wall ?Affected area was injected in 1 ?muscle Groups (3 areas)with 10 mL of the bupivicaine solution using a 22g needle. Patient tolerated the procedure well. ?? Patient tolerated procedure well. ?? 0.25 % Bupivacaine 10 ML --- lot # [id number]??EXP: [id number] SUBJECTIVE ROS OBJECTIVE There were no vitals taken for this visit. PHYSICAL EXAMINATION: Physical Exam Genitourinary: Genitourinary Comments: Abdominal tenderness + rlq Abdominal myofacial trigger points - +_ carnetts Vaginal Vestibular tenderness neg Rectal tenderness neg Bladder base tenderness neg Uterine position/tenderness neg/ (A=Anteverted, R= retroverted, M= mid-position) Retrocervical tenderness neg Cervical motion tenderness neg Adnexal tenderness neg Pelvic Floor Musculature RIGHT SIDED Pubococcygeus 2 Iliococcygeus 2 Coccygeus 1 Obturator 2 LEFT SIDED Pubococcygeus 0 Iliococcygeus 0 Coccygeus 0 Obturator 0 (Pain Scale 1 to 3, 3= extreme) ASSESSMENT Encounter Diagnosis ICD-10-CM 1. Trigger point of abdomen R10.9 TRIGGER POINT INJECTION MULTI 1-2 MUSCLE GR 2. Chronic pelvic pain in female R10.2 TRIGGER POINT INJECTION MULTI 1-2 MUSCLE GR G89.29 PLAN r abd AND vaginal wall tpi done. Doing well Follow up in 5 wks Radha German MD <<<Procedure >>> ?? UNIVERSAL PROTOCOL / SAFETY CHECKLIST ?? Procedure to be performed: R abd and vaginal wall trigger point series ?? Sign in Communication: Completed ?? Time Out: Team Confirms the Correct Patient, Correct Procedure, Correct Site and Site Marking, Correct Position (if applicable), Prep and Dry Time (if applicable). Time: 300pm ?? Affirmation of Time Out: YES ?? Sign Out Discussion: Completed ?? PROCEDURE NOTE: Area prepped with alcohol swab 10 mL 0.25% bupivicaine mixed in a 10 mL syringe. Skin was prepped in a sterile fashion. Right abd wall Affected area was injected in 1 muscle Groups (4 areas) with 10 mL of the bupivicaine solution using a 22g needle. Patient tolerated the procedure well. ? Area prepped with baby shampoo. 10 mL 0.25% bupivicaine mixed in a 10 mL syringe. Skin was prepped in a sterile fashion. Right vaginal wall Affected area was injected in 1 muscle Groups (3 areas) with 10 mL of the bupivicaine solution using a 22g needle. Patient tolerated the procedure well. Patient tolerated procedure well. ?? 0.25 % Bupivacaine 10 ML --- lot # [id number] EXP: [id number] CNOV Observed: 11/06/2017 Status: COMPLETED Source: [place] 2:30 PM [facility] REPOSITORY Office Visit ([facility]) LOUISE ROLAND ([id number]) 1970 F Date Time Provider Department 11/06/17 2:30 PM RADHA GERMAN During your visit today, we recorded the following information about you: Blood pressure Weight Height Last Period 124/72 92.1 kg 1.727 m 10/27/17 Radha German MD 11/14/2017 9:26 AM Signed CHRONIC PELVIC PAIN FOLLOW UP VISIT Louise Roland is a 47 year old female who presents for continued management of chronic pelvic pain. HISTORY SINCE LAST VISIT: here for TPI, worked well the entire 4 weeks Overall pain minimal Can walk more and has lost 15 lb d/to being in less pain Last night woke up w/ a pain Intensity of pain: pressure, achy Average Pain level: 5 on a scale of 0-10 Emergency room visits for pain since last visit: no Level of physical activity and mobility: fair Quality of sleep: good Mood: good Side effects of medications for pain: none Notes from last visit 10/09/[address] Lucero MD: ASSESSMENT ? Encounter Diagnosis ? ? ICD-10-CM ? 1. Trigger point of abdomen R10.9 TRIGGER POINT INJECTION MULTI 1-2 MUSCLE GR 2. Chronic pelvic pain in female R10.2 TRIGGER POINT INJECTION MULTI 1-2 MUSCLE GR ? G89.29 ? doing very well w/ both R abd and R vaginal TPI ? ? PLAN ? 1. R abd AND vaginal TPI done today 2. F/u 4 weeks ? Radha German MD ? ? ? UNIVERSAL PROTOCOL / SAFETY CHECKLIST ?? Procedure to be performed: abdominal and vaginal ?trigger point series ?? Sign in Communication: Completed ?? Time Out: Team Confirms the Correct Patient, Correct Procedure, Correct Site and Site Marking, Correct Position (if applicable), Prep and Dry Time (if applicable). Time: 100pm ?? Affirmation of Time Out: YES ?? Sign Out Discussion: Completed ?? PROCEDURE NOTE: ? Area prepped with alcohol swab 10 mL 0.25% bupivicaine mixed in a 10 mL syringe. Skin was prepped in a sterile fashion. Right lower abd wall ?Affected area was injected in 1 ?muscle Groups with 10 mL of the bupivicaine solution using a 22g needle. Patient tolerated the procedure well. ?? ? Area prepped with baby shampoo. 10 mL 0.25% bupivicaine mixed in a 10 mL syringe. Skin was prepped in a sterile fashion. Right vaginal wall ?Affected area was injected in 1 ?muscle Groups (3 areas)with 10 mL of the bupivicaine solution using a 22g needle. Patient tolerated the procedure well. ?? Patient tolerated procedure well. ?? 0.25 % Bupivacaine 10 ML --- lot # [id number]??EXP: 2017 ? SUBJECTIVE ROS OBJECTIVE BP 124/72 Ht 5' 8 (1.73m) Wt 203 lb (92.1kg) LMP 10/27/2017 BMI 30.87 kg/(m2). PHYSICAL EXAMINATION: Physical Exam Genitourinary: Genitourinary Comments: Abdominal tenderness Abdominal myofacial trigger points - tender rlq + carnetts Pelvic Floor Musculature RIGHT SIDED Pubococcygeus 3 Iliococcygeus 3 Coccygeus 3 Obturator 3 LEFT SIDED Pubococcygeus 0 Iliococcygeus 0 Coccygeus 0 Obturator 0 (Pain Scale 1 to 3, 3= extreme) ASSESSMENT Encounter Diagnosis ICD-10-CM 1. Trigger point of abdomen R10.9 TRIGGER POINT INJECTION MULTI 1-2 MUSCLE GR 2. Chronic pelvic pain in female R10.2 G89.29 PLAN Repeat abd and vaginal tpi done Follow up in 1 month Radha German MD UNIVERSAL PROTOCOL / SAFETY CHECKLIST ?? Procedure to be performed: abdominal and vaginal ?trigger point series ?? Sign in Communication: Completed ?? Time Out: Team Confirms the Correct Patient, Correct Procedure, Correct Site and Site Marking, Correct Position (if applicable), Prep and Dry Time (if applicable). Time: 2:40pm ?? Affirmation of Time Out: YES ?? Sign Out Discussion: Completed ?? PROCEDURE NOTE: ? Area prepped with alcohol swab 10 mL 0.25% bupivicaine mixed in a 10 mL syringe. Skin was prepped in a sterile fashion. Right lower abd wall ?Affected area was injected in 1 ?muscle Groups with 10 mL of the bupivicaine solution using a 22g needle. Patient tolerated the procedure well. ?? ? Area prepped with baby shampoo. 10 mL 0.25% bupivicaine mixed in a 10 mL syringe. Skin was prepped in a sterile fashion. Right vaginal wall ?Affected area was injected in 1 ?muscle Groups (3 areas)with 10 mL of the bupivicaine solution using a 22g needle. Patient tolerated the procedure well. ?? Patient tolerated procedure well. ?? 0.25 % Bupivacaine 10 ML --- lot # [id number]??EXP: 1nov 2017 Referring Provider: SELF [200] Allergies As of Date: 11/06/2017 Noted Allergy Reaction DUST 04/27/2010 9 - Itching IMITREX (SUMATRIPTAN) 04/27/2010 14 - Other: See Comments Comments: vision Date Reviewed: 11/06/2017 Reviewed by: Dorothea Simon LPN - Fully Assessed Reason for Visit: Procedure [88] Primary Visit Diagnosis:Trigger point of abdomen [R10.9] Other Visit Diagnosis:Chronic pelvic pain in female [R10.2, G89.29] Order(s):TRIGGER POINT INJECTION MULTI 1-2 MUSCLE GR [[id number]] Order #: [id number] Prescriptions as of 11/06/2017 Sig: ONDANSETRON HCL 4 MG TABLET Take 1 tablet by mouth every * LEVOTHYROXINE 100 MCG TABLET Take 100 mcg by mouth daily b* FAMOTIDINE 40 MG TABLET Take 40 mg by mouth twice bri* CYCLOBENZAPRINE 10 MG TABLET Take 1 tablet by mouth three * ALBUTEROL SULFATE HFA 90 MCG/* Inhale 2 Puffs as instructed * FLUTICASONE 50 MCG/ACTUATION * Use 2 Sprays in each nostril * HYDROCORTISONE 0.5 % LOTION as needed. ZOLPIDEM 10 MG TABLET 5 mg twice daily. Problem List As Of Date 11/06/2017 Noted Resolved Abdominal pain, epigastric [R10.13] INVALID FOR* GERD (gastroesophageal reflux disease) [K21.9] INVALID FOR* Seasonal allergies [J30.2] INVALID FOR* Obesity (BMI 35.0-39.9 without comorbidity) [E6*INVALID FOR* Ilioinguinal neuralgia of right side [G57.91] INVALID FOR* High-tone pelvic floor dysfunction [N94.89] INVALID FOR* Trigger point [M79.1] INVALID FOR* Deep dyspareunia [N94.12] INVALID FOR* Encounter Status:Closed by RADHA GERMAN MD on 11/14/17 PROGRESS Observed: 11/05/2017 Status: COMPLETED Source: [place] 9:52 AM [facility] REPOSITORY O ID: [id number] Author: Radha German Service: (none) Author Type: Physician Type: Progress Notes Filed: 11/14/2017 9:26 AM Note Text: CHRONIC PELVIC PAIN FOLLOW UP VISIT Louise Roland is a 47 year old female who presents for continued management of chronic pelvic pain. HISTORY SINCE LAST VISIT: here for TPI, worked well the entire 4 weeks Overall pain minimal Can walk more and has lost 15 lb d/to being in less pain Last night woke up w/ a pain Intensity of pain: pressure, achy Average Pain level: 5 on a scale of 0-10 Emergency room visits for pain since last visit: no Level of physical activity and mobility: fair Quality of sleep: good Mood: good Side effects of medications for pain: none Notes from last visit 10/09/[address] Lucero MD: ASSESSMENT ? Encounter Diagnosis ? ? ICD-10-CM ? 1. Trigger point of abdomen R10.9 TRIGGER POINT INJECTION MULTI 1-2 MUSCLE GR 2. Chronic pelvic pain in female R10.2 TRIGGER POINT INJECTION MULTI 1-2 MUSCLE GR ? G89.29 ? doing very well w/ both R abd and R vaginal TPI ? ? PLAN ? 1. R abd AND vaginal TPI done today 2. F/u 4 weeks ? Radha German MD ? ? ? UNIVERSAL PROTOCOL / SAFETY CHECKLIST ?? Procedure to be performed: abdominal and vaginal ?trigger point series ?? Sign in Communication: Completed ?? Time Out: Team Confirms the Correct Patient, Correct Procedure, Correct Site and Site Marking, Correct Position (if applicable), Prep and Dry Time (if applicable). Time: 100pm ?? Affirmation of Time Out: YES ?? Sign Out Discussion: Completed ?? PROCEDURE NOTE: ? Area prepped with alcohol swab 10 mL 0.25% bupivicaine mixed in a 10 mL syringe. Skin was prepped in a sterile fashion. Right lower abd wall ?Affected area was injected in 1 ?muscle Groups with 10 mL of the bupivicaine solution using a 22g needle. Patient tolerated the procedure well. ?? ? Area prepped with baby shampoo. 10 mL 0.25% bupivicaine mixed in a 10 mL syringe. Skin was prepped in a sterile fashion. Right vaginal wall ?Affected area was injected in 1 ?muscle Groups (3 areas)with 10 mL of the bupivicaine solution using a 22g needle. Patient tolerated the procedure well. ?? Patient tolerated procedure well. ?? 0.25 % Bupivacaine 10 ML --- lot # [id number]??EXP: 2017 ? SUBJECTIVE ROS OBJECTIVE BP 124/72 Ht 5' 8 (1.73m) Wt 203 lb (92.1kg) LMP 10/27/2017 BMI 30.87 kg/(m2). PHYSICAL EXAMINATION: Physical Exam Genitourinary: Genitourinary Comments: Abdominal tenderness Abdominal myofacial trigger points - tender rlq + carnetts Pelvic Floor Musculature RIGHT SIDED Pubococcygeus 3 Iliococcygeus 3 Coccygeus 3 Obturator 3 LEFT SIDED Pubococcygeus 0 Iliococcygeus 0 Coccygeus 0 Obturator 0 (Pain Scale 1 to 3, 3= extreme) ASSESSMENT Encounter Diagnosis ICD-10-CM 1. Trigger point of abdomen R10.9 TRIGGER POINT INJECTION MULTI 1-2 MUSCLE GR 2. Chronic pelvic pain in female R10.2 G89.29 PLAN Repeat abd and vaginal tpi done Follow up in 1 month Radha German MD UNIVERSAL PROTOCOL / SAFETY CHECKLIST ?? Procedure to be performed: abdominal and vaginal ?trigger point series ?? Sign in Communication: Completed ?? Time Out: Team Confirms the Correct Patient, Correct Procedure, Correct Site and Site Marking, Correct Position (if applicable), Prep and Dry Time (if applicable). Time: 2:40pm ?? Affirmation of Time Out: YES ?? Sign Out Discussion: Completed ?? PROCEDURE NOTE: ? Area prepped with alcohol swab 10 mL 0.25% bupivicaine mixed in a 10 mL syringe. Skin was prepped in a sterile fashion. Right lower abd wall ?Affected area was injected in 1 ?muscle Groups with 10 mL of the bupivicaine solution using a 22g needle. Patient tolerated the procedure well. ?? ? Area prepped with baby shampoo. 10 mL 0.25% bupivicaine mixed in a 10 mL syringe. Skin was prepped in a sterile fashion. Right vaginal wall ?Affected area was injected in 1 ?muscle Groups (3 areas)with 10 mL of the bupivicaine solution using a 22g needle. Patient tolerated the procedure well. ?? Patient tolerated procedure well. ?? 0.25 % Bupivacaine 10 ML --- lot # [id number]??EXP: 2017 CNOV Observed: 10/09/2017 Status: COMPLETED Source: [place] 1:00 PM [facility] REPOSITORY [facility] LOUISE ROLAND ([id number]) 1970 F Date Time Provider Department 10/09/17 1:00 PM RADHA GERMAN During your visit today, we recorded the following information about you: Blood pressure Weight Height Last Period 112/70 97.5 kg 1.727 m 09/30/17 Radha German MD 10/09/2017 1:22 PM Signed CHRONIC PELVIC PAIN FOLLOW UP VISIT Louise Roland is a 47 year old female who presents for continued management of chronic pelvic pain. zofran once a month Overall pain much betterw abd tpi Last shot 09/23/17 (14 day sago) HISTORY SINCE LAST VISIT: [place] that last TPI really helped her, has been doing well. Intensity of pain: almost no pain, until the last couple days. Average Pain level: 1 on a scale of 0-10 Emergency room visits for pain since last visit: none Level of physical activity and mobility: good, walks the dog Quality of sleep: fair, improving Mood: better Side effects of medications for pain: none Notes from last visit CPP 09/18/17 Dr. Lucero MD: ASSESSMENT/ PLAN: ? Encounter Diagnosis ? ? ICD-10-CM ? 1. Chronic pelvic pain in female R10.2 ? ? G89.29 ? 2. Trigger point of abdomen R10.9 TRIGGER POINT INJECTION MULTI 1-2 MUSCLE GR ? Added R lower abd wall w/ R vag wall TPI F/u 3 wks to repeat TPi E ncouraged regular exercise/walking ? Radha German MD ? ? ANDlt;ANDlt;ANDlt;Procedure ANDgt;ANDgt;ANDgt; ?? UNIVERSAL PROTOCOL / SAFETY CHECKLIST ?? Procedure to be performed: abdominal and vaginal trigger point series ?? Sign in Communication: Completed ?? Time Out: Team Confirms the Correct Patient, Correct Procedure, Correct Site and Site Marking, Correct Position (if applicable), Prep and Dry Time (if applicable). Time: 130pm ?? Affirmation of Time Out: YES ?? Sign Out Discussion: Completed ?? PROCEDURE NOTE: Area prepped with alcohol swab 10 mL 0.5% bupivicaine mixed in a 10 mL syringe. Skin was prepped in a sterile fashion. Right lower abd wall Affected area was injected in 1 muscle Groups with 10 mL of the bupivicaine solution using a 22g needle. Patient tolerated the procedure well. ?? ? Area prepped with baby shampoo. 10 mL 0.5% bupivicaine mixed in a 10 mL syringe. Skin was prepped in a sterile fashion. Right vaginal wall Affected area was injected in 1 muscle Groups (3 areas)with 10 mL of the bupivicaine solution using a 22g needle. Patient tolerated the procedure well. ?? Patient tolerated procedure well. ?? 0.25 % Bupivacaine 10 ML --- lot # [id number] EXP: 1n2017 ? SUBJECTIVE ROS OBJECTIVE LMP 09/12/2017 PHYSICAL EXAMINATION: Physical Exam Constitutional: She appears distressed. Genitourinary: Genitourinary Comments: Abdominal tenderness mild tenderness rlq Abdominal myofacial trigger points - + carnetts Vaginal Vestibular tenderness neg Rectal tenderness neg Bladder base tenderness neg Pelvic Floor Musculature RIGHT SIDED Pubococcygeus 1 Iliococcygeus 1 Coccygeus 1 Obturator 1 LEFT SIDED Pubococcygeus 0 Iliococcygeus 0 Coccygeus 0 Obturator 0 (Pain Scale 1 to 3, 3= extreme) ASSESSMENT Encounter Diagnosis ICD-10-CM 1. Trigger point of abdomen R10.9 TRIGGER POINT INJECTION MULTI 1-2 MUSCLE GR 2. Chronic pelvic pain in female R10.2 TRIGGER POINT INJECTION MULTI 1-2 MUSCLE GR G89.29 doing very well w/ both R abd and R vaginal TPI PLAN 1. R abd ANDamp; vaginal TPI done today 2. F/u 4 weeks Radha German MD UNIVERSAL PROTOCOL / SAFETY CHECKLIST ?? Procedure to be performed: abdominal and vaginal trigger point series ?? Sign in Communication: Completed ?? Time Out: Team Confirms the Correct Patient, Correct Procedure, Correct Site and Site Marking, Correct Position (if applicable), Prep and Dry Time (if applicable). Time: 100pm ?? Affirmation of Time Out: YES ?? Sign Out Discussion: Completed ?? PROCEDURE NOTE: Area prepped with alcohol swab 10 mL 0.25% bupivicaine mixed in a 10 mL syringe. Skin was prepped in a sterile fashion. Right lower abd wall Affected area was injected in 1 muscle Groups with 10 mL of the bupivicaine solution using a 22g needle. Patient tolerated the procedure well. ?? ? Area prepped with baby shampoo. 10 mL 0.25% bupivicaine mixed in a 10 mL syringe. Skin was prepped in a sterile fashion. Right vaginal wall Affected area was injected in 1 muscle Groups (3 areas)with 10 mL of the bupivicaine solution using a 22g needle. Patient tolerated the procedure well. ?? Patient tolerated procedure well. ?? 0.25 % Bupivacaine 10 ML --- lot # [id number] EXP: 2017 ? Referring Provider: SELF [[id number]] Allergies As of Date: 10/09/2017 Noted Allergy Reaction DUST 04/27/2010 9 - Itching IMITREX (SUMATRIPTAN) 04/27/2010 14 - Other: See Comments Comments: vision Date Reviewed: 10/09/2017 Reviewed by: Leia Moreno Ma - Fully Assessed Reason for Visit: Established Patient [175] Primary Visit Diagnosis:Trigger point of abdomen [R10.9] Other Visit Diagnosis:Chronic pelvic pain in female [R10.2, G89.29] Order(s):TRIGGER POINT INJECTION MULTI 1-2 MUSCLE GR [[id number]] Order #: [id number] Prescriptions as of 10/09/2017 Sig: ONDANSETRON HCL 4 MG TABLET Take 1 tablet by mouth every * LEVOTHYROXINE 100 MCG TABLET Take 100 mcg by mouth daily b* FAMOTIDINE 40 MG TABLET Take 40 mg by mouth twice bri* HYDROCORTISONE 0.5 % LOTION as needed. ZOLPIDEM 10 MG TABLET 5 mg twice daily. CYCLOBENZAPRINE 10 MG TABLET Take 1 tablet by mouth three * ALBUTEROL SULFATE HFA 90 MCG/* Inhale 2 Puffs as instructed * FLUTICASONE 50 MCG/ACTUATION * Use 2 Sprays in each nostril * Problem List As Of Date 10/09/2017 Noted Resolved Abdominal pain, epigastric [R10.13] INVALID FOR* GERD (gastroesophageal reflux disease) [K21.9] INVALID FOR* Seasonal allergies [J30.2] INVALID FOR* Obesity (BMI 35.0-39.9 without comorbidity) [E6*INVALID FOR* Ilioinguinal neuralgia of right side [G57.91] INVALID FOR* High-tone pelvic floor dysfunction [N94.89] INVALID FOR* Trigger point [M79.1] INVALID FOR* Deep dyspareunia [N94.12] INVALID FOR* Encounter Status:Closed by RADHA GERMAN MD on 10/09/17 PROGRESS Observed: 10/08/2017 Status: COMPLETED Source: [place] 11:27 AM [facility] REPOSITORY O ID: [id number] Author: Radha German Service: (none) Author Type: Physician Type: Progress Notes Filed: 10/09/2017 1:22 PM Note Text: CHRONIC PELVIC PAIN FOLLOW UP VISIT Louise Roland is a 47 year old female who presents for continued management of chronic pelvic pain. zofran once a month Overall pain much betterw abd tpi Last shot 09/23/17 (14 day sago) HISTORY SINCE LAST VISIT: [place] that last TPI really helped her, has been doing well. Intensity of pain: almost no pain, until the last couple days. Average Pain level: 1 on a scale of 0-10 Emergency room visits for pain since last visit: none Level of physical activity and mobility: good, walks the dog Quality of sleep: fair, improving Mood: better Side effects of medications for pain: none Notes from last visit CPP 09/18/17 Dr. Lucero MD: ASSESSMENT/ PLAN: ? Encounter Diagnosis ? ? ICD-10-CM ? 1. Chronic pelvic pain in female R10.2 ? ? G89.29 ? 2. Trigger point of abdomen R10.9 TRIGGER POINT INJECTION MULTI 1-2 MUSCLE GR ? Added R lower abd wall w/ R vag wall TPI F/u 3 wks to repeat TPi E ncouraged regular exercise/walking ? Radha German MD ? ? <<<Procedure >>> ?? UNIVERSAL PROTOCOL / SAFETY CHECKLIST ?? Procedure to be performed: abdominal and vaginal trigger point series ?? Sign in Communication: Completed ?? Time Out: Team Confirms the Correct Patient, Correct Procedure, Correct Site and Site Marking, Correct Position (if applicable), Prep and Dry Time (if applicable). Time: 130pm ?? Affirmation of Time Out: YES ?? Sign Out Discussion: Completed ?? PROCEDURE NOTE: Area prepped with alcohol swab 10 mL 0.5% bupivicaine mixed in a 10 mL syringe. Skin was prepped in a sterile fashion. Right lower abd wall Affected area was injected in 1 muscle Groups with 10 mL of the bupivicaine solution using a 22g needle. Patient tolerated the procedure well. ?? ? Area prepped with baby shampoo. 10 mL 0.5% bupivicaine mixed in a 10 mL syringe. Skin was prepped in a sterile fashion. Right vaginal wall Affected area was injected in 1 muscle Groups (3 areas)with 10 mL of the bupivicaine solution using a 22g needle. Patient tolerated the procedure well. ?? Patient tolerated procedure well. ?? 0.25 % Bupivacaine 10 ML --- lot # [id number] EXP: 1n2017 ? SUBJECTIVE ROS OBJECTIVE LMP 09/12/2017 PHYSICAL EXAMINATION: Physical Exam Constitutional: She appears distressed. Genitourinary: Genitourinary Comments: Abdominal tenderness mild tenderness rlq Abdominal myofacial trigger points - + carnetts Vaginal Vestibular tenderness neg Rectal tenderness neg Bladder base tenderness neg Pelvic Floor Musculature RIGHT SIDED Pubococcygeus 1 Iliococcygeus 1 Coccygeus 1 Obturator 1 LEFT SIDED Pubococcygeus 0 Iliococcygeus 0 Coccygeus 0 Obturator 0 (Pain Scale 1 to 3, 3= extreme) ASSESSMENT Encounter Diagnosis ICD-10-CM 1. Trigger point of abdomen R10.9 TRIGGER POINT INJECTION MULTI 1-2 MUSCLE GR 2. Chronic pelvic pain in female R10.2 TRIGGER POINT INJECTION MULTI 1-2 MUSCLE GR G89.29 doing very well w/ both R abd and R vaginal TPI PLAN 1. R abd AND vaginal TPI done today 2. F/u 4 weeks Radha German MD UNIVERSAL PROTOCOL / SAFETY CHECKLIST ?? Procedure to be performed: abdominal and vaginal trigger point series ?? Sign in Communication: Completed ?? Time Out: Team Confirms the Correct Patient, Correct Procedure, Correct Site and Site Marking, Correct Position (if applicable), Prep and Dry Time (if applicable). Time: 100pm ?? Affirmation of Time Out: YES ?? Sign Out Discussion: Completed ?? PROCEDURE NOTE: Area prepped with alcohol swab 10 mL 0.25% bupivicaine mixed in a 10 mL syringe. Skin was prepped in a sterile fashion. Right lower abd wall Affected area was injected in 1 muscle Groups with 10 mL of the bupivicaine solution using a 22g needle. Patient tolerated the procedure well. ?? ? Area prepped with baby shampoo. 10 mL 0.25% bupivicaine mixed in a 10 mL syringe. Skin was prepped in a sterile fashion. Right vaginal wall Affected area was injected in 1 muscle Groups (3 areas)with 10 mL of the bupivicaine solution using a 22g needle. Patient tolerated the procedure well. ?? Patient tolerated procedure well. ?? 0.25 % Bupivacaine 10 ML --- lot # [id number] EXP: 2017 ? CNOV Observed: 09/18/2017 Status: COMPLETED Source: [place] 1:00 PM [facility] REPOSITORY Office Visit ([facility]) LOUISE ROLAND ([id number]) 1970 F Date Time Provider Department 09/18/17 1:[address] [facility] During your visit today, we recorded the following information about you: Blood pressure Weight Height Last Period 120/90 97.5 kg 1.727 m 09/12/17 Radha German MD 09/18/2017 1:37 PM Signed CHRONIC PELVIC PAIN FOLLOW UP VISIT Louise Roland is a 47 year old female who presents for continued management of chronic pelvic pain. Had diarrhea/vomiting a few days before period. [place] sick. Zofranhelped. Overall no issues. No dysmenorrhea. Notes from last visit 08/21/2017: TPI done Area prepped with baby shampoo. 10 mL 0.5% bupivicaine mixed in a 10 mL syringe. Skin was prepped in a sterile fashion. Right vaginal wall Affected area was injected in 1 muscle Groups (3 areas) with 10 mL of the bupivicaine solution using a 22g needle. Patient tolerated the procedure well. PLAN Repeat R vag tpi done Pain overall better Follow up in 1 month , repeat R vag TPI Refilled zofran to use for nausea prn HISTORY SINCE LAST VISIT: Patient states she started having pain 3 weeks after last injections. Patient also was throwing and having diarrhea 2 days before her period. Intensity of pain: moderate Average Pain level: 6/10 today. W/ shots goes to 4/10 ; on a scale of 0-10 Emergency room visits for pain since last visit: none Level of physical activity and mobility: ANDquot;I walked yesterday but may have been too much for meANDquot;, walked dog about 20 min (hasnt done this brittaney While) No ER visits in 6 month so very happy w/ that. Quality of sleep: ANDquot;when I have the injections, they work really well for meANDquot; Mood: a lot better since starting injections Side effects of medications for pain: none REVIEW OF SYSTEMS GENERAL: No weight loss, malaise or fevers RESPIRATORY: Negative for cough, hemoptysis, wheezing, COPD, dyspnea or shortness of breath CARDIOVASCULAR: Negative for chest pain, leg swelling, hypertension, CHF or palpitations GI: No nausea, vomiting, or diarrhea : No history of dysuria, frequency or incontinence STATION DETECTIVE: Negative for abnormal vaginal bleeding, abnormal vaginal discharge. LMP: . MUSCULOSKELETAL: Negative for joint pain or swelling, back pain or muscle pain PSYCH: Negative for sleep disturbance, mood disorder and recent psychosocial stressors NEURO: No history of headaches, syncope, paralysis, seizures or tremors OBJECTIVE BP 120/90 Ht 5' 8ANDquot; (1.73m) Wt 215 lb (97.5kg) LMP 09/12/2017 BMI 32.70 kg/(m2). PHYSICAL EXAMINATION: General appearance: Well appearing, alert, in no acute distress, well-hydrated, well nourished. Pelvic: MWDPAINEXAM Spine tenderness tender low back SI joint neg CVA tenderness neg Leg length - neg Pubic symphysis tenderness n/a Pubic bones n/a Abdominal tenderness + right lower abd/inguinal area Abdominal myofacial trigger points - + carnetts rlq Vaginal Vestibular tenderness neg Rectal tenderness neg Bladder base tenderness neg Pelvic Floor Musculature RIGHT SIDED Pubococcygeus 2 Iliococcygeus 2 Coccygeus 2 Obturator 2 LEFT SIDED Pubococcygeus 0 Iliococcygeus 0 Coccygeus 0 Obturator 0 (Pain Scale 1 to 3, 3= extreme) RV exam - deferred ASSESSMENT/ PLAN: Encounter Diagnosis ICD-10-CM 1. Chronic pelvic pain in female R10.2 G89.29 2. Trigger point of abdomen R10.9 TRIGGER POINT INJECTION MULTI 1-2 MUSCLE GR Added R lower abd wall w/ R vag wall TPI F/u 3 wks to repeat TPi E ncouraged regular exercise/walking Radha German MD ANDlt;ANDlt;ANDlt;Procedure ANDgt;ANDgt;ANDgt; ?? UNIVERSAL PROTOCOL / SAFETY CHECKLIST ?? Procedure to be performed: abdominal and vaginal trigger point series ?? Sign in Communication: Completed ?? Time Out: Team Confirms the Correct Patient, Correct Procedure, Correct Site and Site Marking, Correct Position (if applicable), Prep and Dry Time (if applicable). Time: 130pm ?? Affirmation of Time Out: YES ?? Sign Out Discussion: Completed ?? PROCEDURE NOTE: Area prepped with alcohol swab 10 mL 0.5% bupivicaine mixed in a 10 mL syringe. Skin was prepped in a sterile fashion. Right lower abd wall Affected area was injected in 1 muscle Groups with 10 mL of the bupivicaine solution using a 22g needle. Patient tolerated the procedure well. ? Area prepped with baby shampoo. 10 mL 0.5% bupivicaine mixed in a 10 mL syringe. Skin was prepped in a sterile fashion. Right vaginal wall Affected area was injected in 1 muscle Groups (3 areas)with 10 mL of the bupivicaine solution using a 22g needle. Patient tolerated the procedure well. Patient tolerated procedure well. ?? 0.25 % Bupivacaine 10 ML --- lot # [id number] EXP: 2017 Rosina Hopson Ma 09/18/2017 1:12 PM Signed Medical Receptionist Medical Assistant offered: Patient declines. Rosina Hopson Ma September 18, 2017 1:08 PM Referring Provider: GLORIA VOSS [[id number]] Allergies As of Date: 09/18/2017 Noted Allergy Reaction DUST 04/27/2010 9 - Itching IMITREX (SUMATRIPTAN) 04/27/2010 14 - Other: See Comments Comments: vision Date Reviewed: 09/18/2017 Reviewed by: Rosina Hopson Ma - Fully Assessed Reason for Visit: Established Patient [175] Cmt: TPI Primary Visit Diagnosis:Chronic pelvic pain in female [R10.2, G89.29] Other Visit Diagnosis:Trigger point of abdomen [R10.9] Order(s):TRIGGER POINT INJECTION MULTI 1-2 MUSCLE GR [[id number]] Order #: [id number] Prescriptions as of 09/18/2017 Sig: ONDANSETRON HCL 4 MG TABLET Take 1 tablet by mouth every * LEVOTHYROXINE 100 MCG TABLET Take 100 mcg by mouth daily b* FAMOTIDINE 40 MG TABLET Take 40 mg by mouth twice bri* HYDROCORTISONE 0.5 % LOTION as needed. ZOLPIDEM 10 MG TABLET 5 mg twice daily. CYCLOBENZAPRINE 10 MG TABLET Take 1 tablet by mouth three * ALBUTEROL SULFATE HFA 90 MCG/* Inhale 2 Puffs as instructed * FLUTICASONE 50 MCG/ACTUATION * Use 2 Sprays in each nostril * Problem List As Of Date 09/18/2017 Noted Resolved Abdominal pain, epigastric [R10.13] INVALID FOR* GERD (gastroesophageal reflux disease) [K21.9] INVALID FOR* Seasonal allergies [J30.2] INVALID FOR* Obesity (BMI 35.0-39.9 without comorbidity) [E6*INVALID FOR* Ilioinguinal neuralgia of right side [G57.91] INVALID FOR* High-tone pelvic floor dysfunction [N94.89] INVALID FOR* Trigger point [M79.1] INVALID FOR* Deep dyspareunia [N94.12] INVALID FOR* Visit Notes: >> Rosina Marino Sep 18, 2017 1:08 PM Status: Signed Medical Receptionist Medical Assistant offered: Patient declines. Rosina Hopson Ma September 18, 2017 1:08 PM Disposition: Return in about 3 weeks (around 10/09/2017) for TPI . Follow-up and Disposition History Recorded Encounter Status:Closed by RADHA GERMAN MD on 09/18/17 PROGRESS Observed: 09/14/2017 Status: COMPLETED Source: [place] 4:44 PM [facility] REPOSITORY HNO ID: [id number] Author: Radha German Service: (none) Author Type: Physician Type: Progress Notes Filed: 09/18/2017 1:37 PM Note Text: CHRONIC PELVIC PAIN FOLLOW UP VISIT Louise Roland is a 47 year old female who presents for continued management of chronic pelvic pain. Had diarrhea/vomiting a few days before period. [place] sick. Zofranhelped. Overall no issues. No dysmenorrhea. Notes from last visit 08/21/2017: TPI done Area prepped with baby shampoo. 10 mL 0.5% bupivicaine mixed in a 10 mL syringe. Skin was prepped in a sterile fashion. Right vaginal wall Affected area was injected in 1 muscle Groups (3 areas) with 10 mL of the bupivicaine solution using a 22g needle. Patient tolerated the procedure well. PLAN Repeat R vag tpi done Pain overall better Follow up in 1 month , repeat R vag TPI Refilled zofran to use for nausea prn HISTORY SINCE LAST VISIT: Patient states she started having pain 3 weeks after last injections. Patient also was throwing and having diarrhea 2 days before her period. Intensity of pain: moderate Average Pain level: 6/10 today. W/ shots goes to 4/10 ; on a scale of 0-10 Emergency room visits for pain since last visit: none Level of physical activity and mobility: I walked yesterday but may have been too much for me, walked dog about 20 min (hasnt done this brittaney While) No ER visits in 6 month so very happy w/ that. Quality of sleep: when I have the injections, they work really well for me Mood: a lot better since starting injections Side effects of medications for pain: none REVIEW OF SYSTEMS GENERAL: No weight loss, malaise or fevers RESPIRATORY: Negative for cough, hemoptysis, wheezing, COPD, dyspnea or shortness of breath CARDIOVASCULAR: Negative for chest pain, leg swelling, hypertension, CHF or palpitations GI: No nausea, vomiting, or diarrhea : No history of dysuria, frequency or incontinence STATION DETECTIVE: Negative for abnormal vaginal bleeding, abnormal vaginal discharge. LMP: . MUSCULOSKELETAL: Negative for joint pain or swelling, back pain or muscle pain PSYCH: Negative for sleep disturbance, mood disorder and recent psychosocial stressors NEURO: No history of headaches, syncope, paralysis, seizures or tremors OBJECTIVE BP 120/90 Ht 5' 8 (1.73m) Wt 215 lb (97.5kg) LMP 09/12/2017 BMI 32.70 kg/(m2). PHYSICAL EXAMINATION: General appearance: Well appearing, alert, in no acute distress, well-hydrated, well nourished. Pelvic: MWDPAINEXAM Spine tenderness tender low back SI joint neg CVA tenderness neg Leg length - neg Pubic symphysis tenderness n/a Pubic bones n/a Abdominal tenderness + right lower abd/inguinal area Abdominal myofacial trigger points - + carnetts rlq Vaginal Vestibular tenderness neg Rectal tenderness neg Bladder base tenderness neg Pelvic Floor Musculature RIGHT SIDED Pubococcygeus 2 Iliococcygeus 2 Coccygeus 2 Obturator 2 LEFT SIDED Pubococcygeus 0 Iliococcygeus 0 Coccygeus 0 Obturator 0 (Pain Scale 1 to 3, 3= extreme) RV exam - deferred ASSESSMENT/ PLAN: Encounter Diagnosis ICD-10-CM 1. Chronic pelvic pain in female R10.2 G89.29 2. Trigger point of abdomen R10.9 TRIGGER POINT INJECTION MULTI 1-2 MUSCLE GR Added R lower abd wall w/ R vag wall TPI F/u 3 wks to repeat TPi E ncouraged regular exercise/walking Radha German MD <<<Procedure >>> ?? UNIVERSAL PROTOCOL / SAFETY CHECKLIST ?? Procedure to be performed: abdominal and vaginal trigger point series ?? Sign in Communication: Completed ?? Time Out: Team Confirms the Correct Patient, Correct Procedure, Correct Site and Site Marking, Correct Position (if applicable), Prep and Dry Time (if applicable). Time: 130pm ?? Affirmation of Time Out: YES ?? Sign Out Discussion: Completed ?? PROCEDURE NOTE: Area prepped with alcohol swab 10 mL 0.5% bupivicaine mixed in a 10 mL syringe. Skin was prepped in a sterile fashion. Right lower abd wall Affected area was injected in 1 muscle Groups with 10 mL of the bupivicaine solution using a 22g needle. Patient tolerated the procedure well. ? Area prepped with baby shampoo. 10 mL 0.5% bupivicaine mixed in a 10 mL syringe. Skin was prepped in a sterile fashion. Right vaginal wall Affected area was injected in 1 muscle Groups (3 areas)with 10 mL of the bupivicaine solution using a 22g needle. Patient tolerated the procedure well. Patient tolerated procedure well. ?? 0.25 % Bupivacaine 10 ML --- lot # [id number] EXP: 2017 CNOV Observed: 08/21/2017 Status: COMPLETED Source: [place] 1:00 PM [facility] REPOSITORY [facility] LOUISE ROLAND ([id number]) 1970 F Date Time Provider Department 08/21/17 1:00 PM RADHA GERMAN During your visit today, we recorded the following information about you: Blood pressure Weight Height Last Period 112 99.8 kg 1.727 m 08/08/17 Radha German MD 08/21/2017 1:27 PM Signed CHRONIC PELVIC PAIN FOLLOW UP VISIT Louise Roland is a 47 year old female who presents for continued management of chronic pelvic pain. Reports pain relief for a good part of the month. Needs refill on Zofran. HISTORY SINCE LAST VISIT: Intensity of pain: mild Average Pain level: 7 on a scale of 0-10 Emergency room visits for pain since last visit: NO Level of physical activity and mobility: a little more active, walking faster Quality of sleep: better Mood: confident Side effects of medications for pain: none Notes from last visit 07/17/[address] Lucero MD: ASSESSMENT/ PLAN: ? Encounter Diagnosis ? ? ICD-10-CM ? 1. Trigger point M79.1 TRIGGER POINT INJECTION MULTI 1-2 MUSCLE GR 1. R vaginal wall TPI --repeated today--used 20 cc ? F/u 1 month Radha German MD ? ANDlt;ANDlt;ANDlt;Procedure ANDgt;ANDgt;ANDgt; ?? UNIVERSAL PROTOCOL / SAFETY CHECKLIST ?? Procedure to be performed: right vaginal wall trigger point series ?? Sign in Communication: Completed ?? Time Out: Team Confirms the Correct Patient, Correct Procedure, Correct Site and Site Marking, Correct Position (if applicable), Prep and Dry Time (if applicable). Time: 245pm ?? Affirmation of Time Out: YES ?? Sign Out Discussion: Completed ?? PROCEDURE NOTE: Area prepped with baby shampoo. 10 mL 0.5% bupivicaine mixed in a 10 mL syringe x 2 . Skin was prepped in a sterile fashion. r vaginal wall Affected area (3 areas) was injected in 1 muscle Groups with 2 0 mL of the bupivicaine solution using a 22g needle. Patient tolerated the procedure well. ?? ? Patient tolerated procedure well. ?? 0.5% Bupivacaine 10 ML lot # [id number] EXP: 02/16/2019 SUBJECTIVE Review of Systems Constitutional: Negative. HENT: Negative. Eyes: Negative. Respiratory: Negative. Cardiovascular: Negative. Gastrointestinal: Positive for heartburn. Genitourinary: Negative. Musculoskeletal: Negative. Skin: Negative. Neurological: Negative. Endo/Heme/Allergies: Negative. Psychiatric/Behavioral: Negative. OBJECTIVE BP 112/68 Ht 5' 8ANDquot; (1.73m) Wt 220 lb (99.8kg) LMP 08/08/2017 BMI 33.46 kg/(m2). PHYSICAL EXAMINATION: Physical Exam Genitourinary: Genitourinary Comments: Abdominal tenderness nontender Abdominal myofacial trigger points - neg Vaginal Vestibular tenderness neg Rectal tenderness neg Bladder base tenderness neg Pelvic Floor Musculature RIGHT SIDED Pubococcygeus 2 Iliococcygeus 2 Coccygeus 2 Obturator 2 LEFT SIDED Pubococcygeus 0 Iliococcygeus 0 Coccygeus 0 Obturator 0 (Pain Scale 1 to 3, 3= extreme) ASSESSMENT Encounter Diagnosis ICD-10-CM 1. Trigger point M79.1 TRIGGER POINT INJECTION MULTI 1-2 MUSCLE GR 2. Nausea R11.0 ondansetron (ZOFRAN) 4 mg tablet PLAN Repeat R vag tpi done Pain overall better Follow up in 1 month , repeat R vag TPI Refilled zofran to use for nausea prn Radha German MD ANDlt;ANDlt;ANDlt;Procedure ANDgt;ANDgt;ANDgt; ?? UNIVERSAL PROTOCOL / SAFETY CHECKLIST ?? Procedure to be performed: vaginal wall trigger point series ?? Sign in Communication: Completed ?? Time Out: Team Confirms the Correct Patient, Correct Procedure, Correct Site and Site Marking, Correct Position (if applicable), Prep and Dry Time (if applicable). Time: 1:20pm ?? Affirmation of Time Out: YES ?? Sign Out Discussion: Completed ?? PROCEDURE NOTE: Area prepped with baby shampoo. 10 mL 0.5% bupivicaine mixed in a 10 mL syringe. Skin was prepped in a sterile fashion. Right vaginal wall Affected area was injected in 1 muscle Groups (3 areas) with 10 mL of the bupivicaine solution using a 22g needle. Patient tolerated the procedure well. ?? Patient tolerated procedure well. ?? 0.5% Bupivacaine 10 ML lot # [id number] EXP: 02/16/2019 Referring Provider: GLORIA VOSS [[id number]] Allergies As of Date: 08/21/2017 Noted Allergy Reaction DUST 04/27/2010 9 - Itching IMITREX (SUMATRIPTAN) 04/27/2010 14 - Other: See Comments Comments: vision Date Reviewed: 08/21/2017 Reviewed by: Maria Guadalupe (Rn) MILTON Moreno - Fully Assessed Reason for Visit: Established Patient [175] Primary Visit Diagnosis:Trigger point [M79.1] Other Visit Diagnosis:Nausea [R11.0] Order(s):ondansetron (ZOFRAN) 4 mg tabletTake 1 tablet by mouth every 8 hours as needed.Disp: 30 tabletRfl: 0 TRIGGER POINT INJECTION MULTI 1-2 MUSCLE GR [[id number]] Order #: [id number] Prescriptions as of 08/21/2017 Sig: ONDANSETRON HCL 4 MG TABLET Take 1 tablet by mouth every * LEVOTHYROXINE 100 MCG TABLET Take 100 mcg by mouth daily b* FAMOTIDINE 40 MG TABLET Take 40 mg by mouth twice bri* HYDROCORTISONE 0.5 % LOTION as needed. ZOLPIDEM 10 MG TABLET 5 mg twice daily. CYCLOBENZAPRINE 10 MG TABLET Take 1 tablet by mouth three * ALBUTEROL SULFATE HFA 90 MCG/* Inhale 2 Puffs as instructed * FLUTICASONE 50 MCG/ACTUATION * Use 2 Sprays in each nostril * Medication notes this encounter MELOXICAM 15 MG TABLET >> Maria Guadalupe Moreno, MILTON, RN 08/21/2017 1:09 PM >> MARIA GUADALUPE KIMBLE Aug 21, 2017 1:09 PM not taking ONDANSETRON HCL 4 MG TABLET >> Maria Guadalupe Moreno, RN, RN 08/21/2017 1:10 PM >> MARIA GUADALUPE KIMBLE Aug 21, 2017 1:10 PM needs refill Problem List As Of Date 08/21/2017 Noted Resolved Abdominal pain, epigastric [R10.13] INVALID FOR* GERD (gastroesophageal reflux disease) [K21.9] INVALID FOR* Seasonal allergies [J30.2] INVALID FOR* Obesity (BMI 35.0-39.9 without comorbidity) [E6*INVALID FOR* Ilioinguinal neuralgia of right side [G57.91] INVALID FOR* High-tone pelvic floor dysfunction [N94.89] INVALID FOR* Trigger point [M79.1] INVALID FOR* Deep dyspareunia [N94.12] INVALID FOR* Prescriptions ordered this encounter Disp Refills Start End ONDANSETRON HCL 4 MG TABLET 30 t* 0 08/21/2017 Route: ORAL Sig: Take 1 tablet by mouth every 8 hours as needed. Medications Discontinued During This Encounter meloxicam (MOBIC) 15 mg tablet 0 04/03/2017 08/21/2017 Class: Historical Med Route: ORAL Sig: Take 15 mg by mouth once daily. Disc: Reason for discontinue is not on file. ondansetron (ZOFRAN) 4 mg tablet 02/07/2016 08/21/2017 Class: Historical Med Sig: Disc: Reason for discontinue is not on file. Encounter Status:Closed by RADHA GERMAN MD on 08/21/17 PROGRESS Observed: 08/15/2017 Status: COMPLETED Source: [place] 9:40 AM [facility] [place] REPOSITORY [facility] ID: [id number] Author: Radha German Service: (none) Author Type: Physician Type: Progress Notes Filed: 08/21/2017 1:27 PM Note Text: CHRONIC PELVIC PAIN FOLLOW UP VISIT Louise Roland is a 47 year old female who presents for continued management of chronic pelvic pain. Reports pain relief for a good part of the month. Needs refill on Zofran. HISTORY SINCE LAST VISIT: Intensity of pain: mild Average Pain level: 7 on a scale of 0-10 Emergency room visits for pain since last visit: NO Level of physical activity and mobility: a little more active, walking faster Quality of sleep: better Mood: confident Side effects of medications for pain: none Notes from last visit 07/17/[address] Lucero MD: ASSESSMENT/ PLAN: ? Encounter Diagnosis ? ? ICD-10-CM ? 1. Trigger point M79.1 TRIGGER POINT INJECTION MULTI 1-2 MUSCLE GR 1. R vaginal wall TPI --repeated today--used 20 cc ? F/u 1 month Radha German MD ? <<<Procedure >>> ?? UNIVERSAL PROTOCOL / SAFETY CHECKLIST ?? Procedure to be performed: right vaginal wall trigger point series ?? Sign in Communication: Completed ?? Time Out: Team Confirms the Correct Patient, Correct Procedure, Correct Site and Site Marking, Correct Position (if applicable), Prep and Dry Time (if applicable). Time: 245pm ?? Affirmation of Time Out: YES ?? Sign Out Discussion: Completed ?? PROCEDURE NOTE: Area prepped with baby shampoo. 10 mL 0.5% bupivicaine mixed in a 10 mL syringe x 2 . Skin was prepped in a sterile fashion. r vaginal wall Affected area (3 areas) was injected in 1 muscle Groups with 2 0 mL of the bupivicaine solution using a 22g needle. Patient tolerated the procedure well. ?? ? Patient tolerated procedure well. ?? 0.5% Bupivacaine 10 ML lot # [id number] EXP: 02/16/2019 SUBJECTIVE Review of Systems Constitutional: Negative. HENT: Negative. Eyes: Negative. Respiratory: Negative. Cardiovascular: Negative. Gastrointestinal: Positive for heartburn. Genitourinary: Negative. Musculoskeletal: Negative. Skin: Negative. Neurological: Negative. Endo/Heme/Allergies: Negative. Psychiatric/Behavioral: Negative. OBJECTIVE BP 112/68 Ht 5' 8 (1.73m) Wt 220 lb (99.8kg) LMP 08/08/2017 BMI 33.46 kg/(m2). PHYSICAL EXAMINATION: Physical Exam Genitourinary: Genitourinary Comments: Abdominal tenderness nontender Abdominal myofacial trigger points - neg Vaginal Vestibular tenderness neg Rectal tenderness neg Bladder base tenderness neg Pelvic Floor Musculature RIGHT SIDED Pubococcygeus 2 Iliococcygeus 2 Coccygeus 2 Obturator 2 LEFT SIDED Pubococcygeus 0 Iliococcygeus 0 Coccygeus 0 Obturator 0 (Pain Scale 1 to 3, 3= extreme) ASSESSMENT Encounter Diagnosis ICD-10-CM 1. Trigger point M79.1 TRIGGER POINT INJECTION MULTI 1-2 MUSCLE GR 2. Nausea R11.0 ondansetron (ZOFRAN) 4 mg tablet PLAN Repeat R vag tpi done Pain overall better Follow up in 1 month , repeat R vag TPI Refilled zofran to use for nausea prn Radha German MD <<<Procedure >>> ?? UNIVERSAL PROTOCOL / SAFETY CHECKLIST ?? Procedure to be performed: vaginal wall trigger point series ?? Sign in Communication: Completed ?? Time Out: Team Confirms the Correct Patient, Correct Procedure, Correct Site and Site Marking, Correct Position (if applicable), Prep and Dry Time (if applicable). Time: 1:20pm ?? Affirmation of Time Out: YES ?? Sign Out Discussion: Completed ?? PROCEDURE NOTE: Area prepped with baby shampoo. 10 mL 0.5% bupivicaine mixed in a 10 mL syringe. Skin was prepped in a sterile fashion. Right vaginal wall Affected area was injected in 1 muscle Groups (3 areas) with 10 mL of the bupivicaine solution using a 22g needle. Patient tolerated the procedure well. ?? Patient tolerated procedure well. ?? 0.5% Bupivacaine 10 ML lot # [id number] EXP: 02/16/2019 CNOV Observed: 07/17/2017 Status: COMPLETED Source: [place] 1:30 PM [facility] REPOSITORY Office Visit ([facility]) LOUISE ROLAND ([id number]) 1970 F Date Time Provider Department 07/17/17 1:30 PM [facility] During your visit today, we recorded the following information about you: Blood pressure Weight Height 130/68 99.8 kg 1.727 m Radha German MD 07/17/2017 2:54 PM Signed CHRONIC PELVIC PAIN FOLLOW UP VISIT Louise Roland is a 47 year old female who presents for continued management of chronic pelvic pain. HISTORY SINCE LAST VISIT: Reports injection (done on 06/26) lasted for about 2.5 weeks with no pain, pain now 7/10. Intensity of pain:moderate Average Pain level: 7 on a scale of 0-10 Emergency room visits for pain since last visit: None Level of physical activity and mobility: able to do a few more things, car rides better Quality of sleep: able to lay on right side Mood: more cheerful Side effects of medications for pain: none MRI pelvic and hips 01/04/17 Normal hips ANDquot;left adnexal cyst (T0wxnia image 21) measuring 4.1 cm in AP and transverse dimensions similar in the size of CT scan. Mild edema in the subcutis adipose space post to the distal lumbar musculature Normal pelvis Notes from last visit 06/26/[address] German: ASSESSMENT/ PLAN: ? Encounter Diagnosis ? ? ICD-10-CM ? 1. Trigger point M79.1 TRIGGER POINT INJECTION MULTI 1-2 MUSCLE GR 2. Myofascial pain M79.1 ? 3. Chronic pelvic pain in female R10.2 ? ? G89.29 ? ? R groin pain possibly referred from R pelvic floor No clear trigger. No menstrual or cyclic pain 1. R vaginal TPI done. Repeat at f/u visit landon if she has significant improvemet in symptoms. 2. I am not sure if there might be a hernia--consider ultrasound of R groin if symptoms dont improve to r/o hernia ? Radha German MD ? Cc Gloria Voss MD ? REVIEW OF SYSTEMS GENERAL: No weight loss, malaise or fevers RESPIRATORY: Negative for cough, hemoptysis, wheezing, COPD, dyspnea or shortness of breath CARDIOVASCULAR: Negative for chest pain, leg swelling, hypertension, CHF or palpitations GI: No nausea, vomiting, or diarrhea : No history of dysuria, frequency or incontinence STATION DETECTIVE: Negative for abnormal vaginal bleeding, abnormal vaginal discharge. LMP: . MUSCULOSKELETAL: Negative for joint pain or swelling, back pain or muscle pain PSYCH: Negative for sleep disturbance, mood disorder and recent psychosocial stressors NEURO: No history of headaches, syncope, paralysis, seizures or tremors OBJECTIVE BP 130/68 Ht 5' 8ANDquot; (1.73m) Wt 220 lb (99.8kg) LMP 06/20/2017 BMI 33.46 kg/(m2). PHYSICAL EXAMINATION: General appearance: Well appearing, alert, in no acute distress, well-hydrated, well nourished. R pelvic floor pain, moderate No L sided pelvic floor pain ASSESSMENT/ PLAN: Encounter Diagnosis ICD-10-CM 1. Trigger point M79.1 TRIGGER POINT INJECTION MULTI 1-2 MUSCLE GR 1. R vaginal wall TPI --repeated today--used 20 cc F/u 1 month Radha German MD ANDlt;ANDlt;ANDlt;Procedure ANDgt;ANDgt;ANDgt; ?? UNIVERSAL PROTOCOL / SAFETY CHECKLIST ?? Procedure to be performed: right vaginal wall trigger point series ?? Sign in Communication: Completed ?? Time Out: Team Confirms the Correct Patient, Correct Procedure, Correct Site and Site Marking, Correct Position (if applicable), Prep and Dry Time (if applicable). Time: 245pm ?? Affirmation of Time Out: YES ?? Sign Out Discussion: Completed ?? PROCEDURE NOTE: Area prepped with baby shampoo. 10 mL 0.5% bupivicaine mixed in a 10 mL syringe x 2 . Skin was prepped in a sterile fashion. r vaginal wall Affected area (3 areas) was injected in 1 muscle Groups with 2 0 mL of the bupivicaine solution using a 22g needle. Patient tolerated the procedure well. ?? Patient tolerated procedure well. ?? 0.5% Bupivacaine 10 ML lot # [id number] EXP: 02/16/2019 Referring Provider: GLORIA VOSS [[id number]] Allergies As of Date: 07/17/2017 Noted Allergy Reaction DUST 04/27/2010 9 - Itching IMITREX (SUMATRIPTAN) 04/27/2010 14 - Other: See Comments Comments: vision Date Reviewed: 07/17/2017 Reviewed by: Maria Guadalupe (M[place]) MILTON Moreno - Fully Assessed Reason for Visit: Established Patient [175] Primary Visit Diagnosis:Trigger point [M79.1] Order(s):TRIGGER POINT INJECTION MULTI 1-2 MUSCLE GR [[id number]] Order #: [id number] Prescriptions as of 07/17/2017 Sig: LEVOTHYROXINE 100 MCG TABLET Take 100 mcg by mouth daily b* FAMOTIDINE 40 MG TABLET Take 40 mg by mouth twice bri* MELOXICAM 15 MG TABLET Take 15 mg by mouth once marla* ONDANSETRON HCL 4 MG TABLET HYDROCORTISONE 0.5 % LOTION as needed. ZOLPIDEM 10 MG TABLET 5 mg twice daily. CYCLOBENZAPRINE 10 MG TABLET Take 1 tablet by mouth three * ALBUTEROL SULFATE HFA 90 MCG/* Inhale 2 Puffs as instructed * FLUTICASONE 50 MCG/ACTUATION * Use 2 Sprays in each nostril * Medication notes this encounter MELOXICAM 15 MG TABLET >> Maria Guadalupe Moreno, RN, RN 07/17/2017 2:06 PM >> MARIA GUADALUPE KIMBLE Jul 17, 2017 2:06 PM not taking ONDANSETRON HCL 4 MG TABLET >> Maria Guadalupe Moreno RN, RN 07/17/2017 2:07 PM >> MARIA GUADALUPE KIMBLE Jul 17, 2017 2:07 PM as needed Problem List As Of Date 07/17/2017 Noted Resolved Abdominal pain, epigastric [R10.13] INVALID FOR* GERD (gastroesophageal reflux disease) [K21.9] INVALID FOR* Seasonal allergies [J30.2] INVALID FOR* Obesity (BMI 35.0-39.9 without comorbidity) [E6*INVALID FOR* Ilioinguinal neuralgia of right side [G57.91] INVALID FOR* High-tone pelvic floor dysfunction [N94.89] INVALID FOR* Trigger point [M79.1] INVALID FOR* Deep dyspareunia [N94.12] INVALID FOR* Medications Discontinued During This Encounter diphenhydrAMINE (BENADRYL) 25 mg tab* 07/17/2017 Class: Historical Med Route: ORAL Sig: Take 25 mg by mouth at bedtime as needed for Sedation. Disc: Course of therapy completed ibuprofen (MOTRIN) 800 mg tablet 1 02/01/2017 07/17/2017 Class: Historical Med Sig: Disc: Course of therapy completed levothyroxine (SYNTHROID) 88 mcg tab* 07/17/2017 Class: Historical Med Route: ORAL Sig: Take 88 mcg by mouth daily before breakfast. Disc: Course of therapy completed Omeprazole 40 mg capsule 60 c* 3 03/06/2016 07/17/2017 Sig: take 1 capsule by mouth twice a day Patient taking differently: Once daily Disc: Course of therapy completed Encounter Status:Closed by RADHA GERMAN MD on 07/17/17 PROGRESS Observed: 07/16/2017 Status: COMPLETED Source: [place] 2:24 PM [facility] REPOSITORY [facility] ID: [id number] Author: Radha German Service: (none) Author Type: Physician Type: Progress Notes Filed: 07/17/2017 2:54 PM Note Text: CHRONIC PELVIC PAIN FOLLOW UP VISIT Louise Roland is a 47 year old female who presents for continued management of chronic pelvic pain. HISTORY SINCE LAST VISIT: Reports injection (done on 06/26) lasted for about 2.5 weeks with no pain, pain now /10. Intensity of pain:moderate Average Pain level: 7 on a scale of 0-10 Emergency room visits for pain since last visit: None Level of physical activity and mobility: able to do a few more things, car rides better Quality of sleep: able to lay on right side Mood: more cheerful Side effects of medications for pain: none MRI pelvic and hips 01/04/17 Normal hips left adnexal cyst (X0flria image 21) measuring 4.1 cm in AP and transverse dimensions similar in the size of CT scan. Mild edema in the subcutis adipose space post to the distal lumbar musculature Normal pelvis Notes from last visit 06/26/[address] German: ASSESSMENT/ PLAN: ? Encounter Diagnosis ? ? ICD-10-CM ? 1. Trigger point M79.1 TRIGGER POINT INJECTION MULTI 1-2 MUSCLE GR 2. Myofascial pain M79.1 ? 3. Chronic pelvic pain in female R10.2 ? ? G89.29 ? ? R groin pain possibly referred from R pelvic floor No clear trigger. No menstrual or cyclic pain 1. R vaginal TPI done. Repeat at f/u visit landon if she has significant improvemet in symptoms. 2. I am not sure if there might be a hernia--consider ultrasound of R groin if symptoms dont improve to r/o hernia ? Radha German MD ? Cc Gloria Voss MD ? REVIEW OF SYSTEMS GENERAL: No weight loss, malaise or fevers RESPIRATORY: Negative for cough, hemoptysis, wheezing, COPD, dyspnea or shortness of breath CARDIOVASCULAR: Negative for chest pain, leg swelling, hypertension, CHF or palpitations GI: No nausea, vomiting, or diarrhea : No history of dysuria, frequency or incontinence STATION DETECTIVE: Negative for abnormal vaginal bleeding, abnormal vaginal discharge. LMP: . MUSCULOSKELETAL: Negative for joint pain or swelling, back pain or muscle pain PSYCH: Negative for sleep disturbance, mood disorder and recent psychosocial stressors NEURO: No history of headaches, syncope, paralysis, seizures or tremors OBJECTIVE BP 130/68 Ht 5' 8 (1.73m) Wt 220 lb (99.8kg) LMP 06/20/2017 BMI 33.46 kg/(m2). PHYSICAL EXAMINATION: General appearance: Well appearing, alert, in no acute distress, well-hydrated, well nourished. R pelvic floor pain, moderate No L sided pelvic floor pain ASSESSMENT/ PLAN: Encounter Diagnosis ICD-10-CM 1. Trigger point M79.1 TRIGGER POINT INJECTION MULTI 1-2 MUSCLE GR 1. R vaginal wall TPI --repeated today--used 20 cc F/u 1 month Radha German MD <<<Procedure >>> ?? UNIVERSAL PROTOCOL / SAFETY CHECKLIST ?? Procedure to be performed: right vaginal wall trigger point series ?? Sign in Communication: Completed ?? Time Out: Team Confirms the Correct Patient, Correct Procedure, Correct Site and Site Marking, Correct Position (if applicable), Prep and Dry Time (if applicable). Time: 245pm ?? Affirmation of Time Out: YES ?? Sign Out Discussion: Completed ?? PROCEDURE NOTE: Area prepped with baby shampoo. 10 mL 0.5% bupivicaine mixed in a 10 mL syringe x 2 . Skin was prepped in a sterile fashion. r vaginal wall Affected area (3 areas) was injected in 1 muscle Groups with 2 0 mL of the bupivicaine solution using a 22g needle. Patient tolerated the procedure well. ?? Patient tolerated procedure well. ?? 0.5% Bupivacaine 10 ML lot # [id number] EXP: 02/16/2019 COMPREHENSIVE METABOLIC Collected: 06/28/2017 Status: F Source: [place] 2:03 PM [facility] REPOSITORY TYPE CODE TESTS RESULT OUT OF RANGE REFERENCE UNITS LAB L501.0100 70-110 mg/dL Normal GLU 91 LAB L501.1000 7-18 mg/dL Normal BUN 16 LAB L501.1100 0.55-1.02 mg/dL Normal 0.97 CREAT,SERUM Result Comment: The validity of the calculated GFR AND GFRAA in patients over 70 years has not been determined. Clinical correlation is essential. LAB L501.1110 >60 mL/min Normal EST GFR 66 Result Comment: Non- GFR Calc LAB L501.1115 >60 mL/min Normal EST GFR - AA 80 Result Comment: GFR Calc LAB L501.1300 10-20 RATIO Normal BUN/CRE 16.5 LAB L501.1500 6.4-8.2 g/dL T Normal PROT 7.8 LAB L501.1800 3.4-5.0 g/dL Normal ALB 3.4 Result Comment: Please note revised Albumin AND Globulin reference range effective 2017. LAB L501.1950 2.2-4.2 g/dL High GLOB 4.4 LAB L501.2000 0.9-2.4 RATIO Low A/G 0.8 LAB L501.2200 8.5-10.1 mg/dL Normal CA 8.7 LAB L501.4100 15-37 U/L Normal AST 20 LAB L501.4305 45-117 U/L Normal ALK P 90 LAB L501.4405 12-78 U/L Normal ALT 26 LAB L501.4600 0.20-1.00 mg/dL Normal T BILI 0.40 LAB L501.5300 136-145 mmol/L Normal NA 137 LAB L501.5600 3.5-5.1 mmol/L Normal K 4.0 LAB L501.5900 98-107 mmol/L Normal CL 105 LAB L501.6100 21.0-32.0 mmol/L Normal CO2 23.0 LAB L501.6200 5-15 Normal GAP 9 Performed By: #### L500.4050, L501.6710, L501.9520 #### [facility] [address] [place], [place], [address] CRP Collected: 06/28/2017 Status: F Source: [place] 2:03 PM [facility] REPOSITORY TYPE CODE TESTS RESULT OUT OF RANGE REFERENCE UNITS LAB L501.6710 0.0-3.0 mg/L High 12.20 C-REACTIVE PROT Result Comment: C-Reactive Protein (CRP) provides useful information for the diagnosis, therapy and monitoring of inflammatory processes and associated diseases. For the evaluation of Relative Risk for Cardiovascular Disease, a High Sensitivity CRP (HSCRP) should be ordered. Performed By: #### L500.4050, L501.6710, L501.9520 #### [facility] [address] [place], [place], [address] THYROID STIM HORMONE Collected: 06/28/2017 Status: F Source: [place] (TSH) 2:03 PM [facility] REPOSITORY TYPE CODE TESTS RESULT OUT OF RANGE REFERENCE UNITS LAB L501.9520 0.358-3.74 uIU/mL High TSH 4.68 Performed By: #### L500.4050, L501.6710, L501.9520 #### [facility] [address] [place], [place], [id number] CBC W/DIFF, AUTOMATED Collected: 06/28/2017 Status: F Source: [place] 2:03 PM [facility] REPOSITORY TYPE CODE TESTS RESULT OUT OF RANGE REFERENCE UNITS LAB L100.1000 4.4-11.0 K/mm3 Normal WBC 9.4 LAB L100.1200 4.2-5.4 M/mm3 Low RBC 4.08 LAB L100.1300 12.0-15.0 g/dl Low HGB 11.8 LAB L100.1400 37-47 % Normal HCT 37.2 LAB L100.1500 81-99 fL Normal MCV 91.2 LAB L100.1600 27.0-32.0 pg Normal MCH 28.9 LAB L100.1700 32-36 g/gl Low MCHC 31.7 LAB L100.1810 11.6-14.6 % Normal RDW CV 14.5 LAB L100.1820 35.1-43.9 fl High RDW SD 47.2 LAB L100.1900 150-450 K/mm3 Normal PLT 318 LAB L100.2000 6.2-12.0 fl Normal MPV 10.9 LAB L100.2100 47-70 % Normal NEUT% 67.9 LAB L100.2200 19-41 % Normal LY% 21.9 LAB L100.2300 0-10 % Normal MONO% 7.7 LAB L100.2400 0-5 % Normal EO% 2.2 LAB L100.2500 0-1 % Normal BASO% 0.1 LAB L100.2550 0.0-0.9 % Normal IM GRAN % 0.200 Result Comment: IG% - Immature Granulocytes (promyelocytes, myelocytes and metamyelocytes) > 1% indicates that a LEFT SHIFT is Present. LAB L100.2620 2.0-7.7 X10 3/uL Normal Absolute Neut 6.4 LAB L100.2720 0.83-4.51 X10 3/ul Normal Absolute Lymph 2.05 Performed By: #### L100.0100, L101.9900 #### [facility] [address] [place], [address] ERYTHROCYTE SED RATE Collected: 06/28/2017 Status: F Source: [place] 2:03 PM [facility] REPOSITORY TYPE CODE TESTS RESULT OUT OF RANGE REFERENCE UNITS LAB L102.0000 0-20 mm/hr High SED RATE 64 Performed By: #### L100.0100, L101.9900 #### [facility] [address] [place], [address] CNOV Observed: 06/26/2017 Status: COMPLETED Source: [place] 9:30 AM [facility] REPOSITORY [facility] JORGE LUIS ROLANDE Wander ([id number]) 1970 F Date Time Provider Department 06/26/17 9:[address] [facility] During your visit today, we recorded the following information about you: Blood pressure Weight Height Last Period 132/70 100.7 kg 1.727 m 06/20/17 Radha German MD 06/26/2017 1:10 PM Signed CHRONIC PELVIC PAIN FOLLOW UP VISIT Louise Roland is a 46 year old female who presents for continued management of chronic pelvic pain. HISTORY SINCE LAST VISIT: Reports pain of 7/10 today, right groin, also reports weakness to right groin if sits too long of stands too long. When she sits she feels swelling in groin area and feels a little better sitting on L butt cheek. She also notes some pain w standing too long as well in R groin. Cannot walk up stairs fast. Also hard to do prolonged walking or feels pain on R No injury/trauma/mva, etc. No inciting injury Wasn't doing much when started Went to [facility]; got MRI pelvis and also ortho for R hip--xray normal, Completed 7 sessions weeks PT (not PFPT) last September, reports it did not help. Not SA as she is afraid to No pain w BM, urination Has monthly periods--no change in pain w/ periods Pain there almost all the time Had CT scan (abd ?) and not available Went to [facility] also Intensity of pain: moderate to severe Average Pain level: 7 on a scale of 0-10 Emergency room visits for pain since last visit: none Level of physical activity and mobility: stopped walking for exercise Quality of sleep: okay but every once in a while right groin bothers her Mood: depressed Side effects of medications for pain: none Notes from last visit 05/09/[address] Voss: ASSESSMENT Louise Roland is a 46 year old female with High- tone pelvic floor dysfunction (primary encounter diagnosis) Trigger point Deep dyspareunia Ilioinguinal neuralgia of right side Obesity (bmi 35.0-39.9 without comorbidity) ? Encounter Diagnosis ? ? ICD-10-CM ? 1. High-tone pelvic floor dysfunction N94.89 CONSULT TO PHYSICAL THERAPY 2. Trigger point M79.1 CONSULT TO PHYSICAL THERAPY 3. Deep dyspareunia N94.12 CONSULT TO PHYSICAL THERAPY 4. Ilioinguinal neuralgia of right side G57.91 ? 5. Obesity (BMI 35.0-39.9 without comorbidity) E66.9 ? ? 46 yo female presents with right sided pelvic and lower lumbar pain over the past year. On exam she has significant right side abdominal and pelvic floor myofascial pain. Possible involvement of ilioinguinal nerve. Some suggestion of possible pudendal nerve involvement but will treat ilioinguinal nerve first. ? PLAN Abdominal trigger point injections and injection of ilioinguinal nerve at next appointment Consult to pelvic floor physical therapy for myofascial muscle pain Consider consult to Pain management for possible pudendal nerve blocks with Dr. Damian Would consider doing pudendal block in office prior to consultation. ? ? Follow up for trigger point injections ? MD Yumiko Haddad, SUPERVISOR [employer] REVIEW OF SYSTEMS GENERAL: No weight loss, malaise or fevers RESPIRATORY: Negative for cough, hemoptysis, wheezing, COPD, dyspnea or shortness of breath CARDIOVASCULAR: Negative for chest pain, leg swelling, hypertension, CHF or palpitations GI: No nausea, vomiting, or diarrhea : No history of dysuria, frequency or incontinence STATION DETECTIVE: Negative for abnormal vaginal bleeding, abnormal vaginal discharge. LMP: . MUSCULOSKELETAL: Negative for joint pain or swelling, back pain or muscle pain PSYCH: Negative for sleep disturbance, mood disorder and recent psychosocial stressors NEURO: No history of headaches, syncope, paralysis, seizures or tremors OBJECTIVE BP 132/70 Ht 5' 8ANDquot; (1.73m) Wt 222 lb (100.7kg) LMP 06/20/2017 BMI 33.76 kg/(m2). PHYSICAL EXAMINATION: General appearance: Well appearing, alert, in no acute distress, well-hydrated, well nourished. Pelvic: Spine tenderness nontender SI joint Tender R SI and R lateral buttock Leg length - R leg might be slightly shorter then L side ASIS - neg Pubic symphysis tenderness neg Pubic bones neg Abdominal tenderness neg Abdominal myofacial trigger points - neg R groin--tender , no pain w/ R hip flexion/extension, normal ROM of the hip Standing no bulge/mass w valsalva in the area. Vaginal Vestibular tenderness neg Rectal tenderness neg Bladder base tenderness neg Pelvic Floor Musculature RIGHT SIDED Pubococcygeus 1 Iliococcygeus 1 Coccygeus 1 Obturator 1 nontender R ischial spine LEFT SIDED Pubococcygeus 1 Iliococcygeus 01 Coccygeus 1 Obturator 1 (Pain Scale 1 to 3, 3= extreme) RV exam - deferred ASSESSMENT/ PLAN: Encounter Diagnosis ICD-10-CM 1. Trigger point M79.1 TRIGGER POINT INJECTION MULTI 1-2 MUSCLE GR 2. Myofascial pain M79.1 3. Chronic pelvic pain in female R10.2 G89.29 R groin pain possibly referred from R pelvic floor No clear trigger. No menstrual or cyclic pain 1. R vaginal TPI done. Repeat at f/u visit landon if she has significant improvemet in symptoms. 2. I am not sure if there might be a hernia--consider ultrasound of R groin if symptoms dont improve to r/o hernia Radha German MD Cc Gloria Voss MD ANDlt;ANDlt;ANDlt;Procedure ANDgt;ANDgt;ANDgt; ?? UNIVERSAL PROTOCOL / SAFETY CHECKLIST ?? Procedure to be performed: vaginal trigger point series ?? Sign in Communication: Completed ?? Time Out: Team Confirms the Correct Patient, Correct Procedure, Correct Site and Site Marking, Correct Position (if applicable), Prep and Dry Time (if applicable). Time: 10:00am ?? Affirmation of Time Out: YES ?? Sign Out Discussion: Completed ?? PROCEDURE NOTE: Area prepped with baby shampoo. 10 mL 0.5% bupivicaine mixed in a 10 mL syringe. Skin was prepped in a sterile fashion. Right vaginal wall Affected area was injected in 1 muscle Groups (2 areas) with 10 mL of the bupivicaine solution using a 22g needle. Patient tolerated the procedure well. After procedure, patient felt improvement in R groin pain Patient tolerated procedure well. ?? 0.5% Bupivacaine 10 ML lot # [id number] EXP: 02/16/2019 Referring Provider: GLORIA VOSS [[id number]] Allergies As of Date: 06/26/2017 Noted Allergy Reaction DUST 04/27/2010 9 - Itching IMITREX (SUMATRIPTAN) 04/27/2010 14 - Other: See Comments Comments: vision Date Reviewed: 06/26/2017 Reviewed by: Maria Guadalupe Herrera) MILTON Moreno - Fully Assessed Reason for Visit: Established Patient [175] Primary Visit Diagnosis:Trigger point [M79.1] Other Visit Diagnoses:Myofascial pain [M79.1] Chronic pelvic pain in female [R10.2, G89.29] Order(s):TRIGGER POINT INJECTION MULTI 1-2 MUSCLE GR [[id number]] Order #: [id number] Prescriptions as of 06/26/2017 Sig: FAMOTIDINE 40 MG TABLET Take 40 mg by mouth once marla* IBUPROFEN 800 MG TABLET MELOXICAM 15 MG TABLET Take 15 mg by mouth once marla* ONDANSETRON HCL 4 MG TABLET HYDROCORTISONE 0.5 % LOTION ZOLPIDEM 10 MG TABLET CYCLOBENZAPRINE 10 MG TABLET Take 1 tablet by mouth three * LEVOTHYROXINE 88 MCG TABLET Take 88 mcg by mouth daily be* OMEPRAZOLE 40 MG CAPSULE,BOBO* take 1 capsule by mouth twice* Patient taking differently: Once daily ALBUTEROL SULFATE HFA 90 MCG/* Inhale 2 Puffs as instructed * DIPHENHYDRAMINE 25 MG TABLET Take 25 mg by mouth at bedtim* FLUTICASONE 50 MCG/ACTUATION * Use 2 Sprays in each nostril * Medication notes this encounter OMEPRAZOLE 40 MG CAPSULE,DELAYED RELEASE >> Maria Guadalupe Moreno, RN, RN 06/26/2017 9:31 AM >> MARIA GUADALUPE KIMBLE Jun 26, 2017 9:31 AM not taking Problem List As Of Date 06/26/2017 Noted Resolved Abdominal pain, epigastric [R10.13] INVALID FOR* GERD (gastroesophageal reflux disease) [K21.9] INVALID FOR* Seasonal allergies [J30.2] INVALID FOR* Obesity (BMI 35.0-39.9 without comorbidity) [E6*INVALID FOR* Ilioinguinal neuralgia of right side [G57.91] INVALID FOR* High-tone pelvic floor dysfunction [N94.89] INVALID FOR* Trigger point [M79.1] INVALID FOR* Deep dyspareunia [N94.12] INVALID FOR* Follow-up and Disposition History Recorded Encounter Status:Closed by RADHA GERMAN MD on 06/26/17 PROGRESS Observed: 06/15/2017 Status: COMPLETED Source: [place] 10:07 AM [facility] REPOSITORY O ID: [id number] Author: Radha German Service: (none) Author Type: Physician Type: Progress Notes Filed: 06/26/2017 1:10 PM Note Text: CHRONIC PELVIC PAIN FOLLOW UP VISIT Louise Roland is a 46 year old female who presents for continued management of chronic pelvic pain. HISTORY SINCE LAST VISIT: Reports pain of 7/10 today, right groin, also reports weakness to right groin if sits too long of stands too long. When she sits she feels swelling in groin area and feels a little better sitting on L butt cheek. She also notes some pain w standing too long as well in R groin. Cannot walk up stairs fast. Also hard to do prolonged walking or feels pain on R No injury/trauma/mva, etc. No inciting injury Wasn't doing much when started Went to [facility] AND got MRI pelvis and also ortho for R hip--xray normal, Completed 7 sessions weeks PT (not PFPT) last September, reports it did not help. Not SA as she is afraid to No pain w BM, urination Has monthly periods--no change in pain w/ periods Pain there almost all the time Had CT scan (abd ?) and not available Went to [facility] also Intensity of pain: moderate to severe Average Pain level: 7 on a scale of 0-10 Emergency room visits for pain since last visit: none Level of physical activity and mobility: stopped walking for exercise Quality of sleep: okay but every once in a while right groin bothers her Mood: depressed Side effects of medications for pain: none Notes from last visit 05/09/[address] Voss: ASSESSMENT Louise Roland is a 46 year old female with High- tone pelvic floor dysfunction (primary encounter diagnosis) Trigger point Deep dyspareunia Ilioinguinal neuralgia of right side Obesity (bmi 35.0-39.9 without comorbidity) ? Encounter Diagnosis ? ? ICD-10-CM ? 1. High-tone pelvic floor dysfunction N94.89 CONSULT TO PHYSICAL THERAPY 2. Trigger point M79.1 CONSULT TO PHYSICAL THERAPY 3. Deep dyspareunia N94.12 CONSULT TO PHYSICAL THERAPY 4. Ilioinguinal neuralgia of right side G57.91 ? 5. Obesity (BMI 35.0-39.9 without comorbidity) E66.9 ? ? 46 yo female presents with right sided pelvic and lower lumbar pain over the past year. On exam she has significant right side abdominal and pelvic floor myofascial pain. Possible involvement of ilioinguinal nerve. Some suggestion of possible pudendal nerve involvement but will treat ilioinguinal nerve first. ? PLAN Abdominal trigger point injections and injection of ilioinguinal nerve at next appointment Consult to pelvic floor physical therapy for myofascial muscle pain Consider consult to Pain management for possible pudendal nerve blocks with Dr. Damian Would consider doing pudendal block in office prior to consultation. ? ? Follow up for trigger point injections ? MD Yumiko Haddad, SAHRA REVIEW OF SYSTEMS GENERAL: No weight loss, malaise or fevers RESPIRATORY: Negative for cough, hemoptysis, wheezing, COPD, dyspnea or shortness of breath CARDIOVASCULAR: Negative for chest pain, leg swelling, hypertension, CHF or palpitations GI: No nausea, vomiting, or diarrhea : No history of dysuria, frequency or incontinence STATION DETECTIVE: Negative for abnormal vaginal bleeding, abnormal vaginal discharge. LMP: . MUSCULOSKELETAL: Negative for joint pain or swelling, back pain or muscle pain PSYCH: Negative for sleep disturbance, mood disorder and recent psychosocial stressors NEURO: No history of headaches, syncope, paralysis, seizures or tremors OBJECTIVE BP 132/70 Ht 5' 8 (1.73m) Wt 222 lb (100.7kg) LMP 06/20/2017 BMI 33.76 kg/(m2). PHYSICAL EXAMINATION: General appearance: Well appearing, alert, in no acute distress, well-hydrated, well nourished. Pelvic: Spine tenderness nontender SI joint Tender R SI and R lateral buttock Leg length - R leg might be slightly shorter then L side ASIS - neg Pubic symphysis tenderness neg Pubic bones neg Abdominal tenderness neg Abdominal myofacial trigger points - neg R groin--tender , no pain w/ R hip flexion/extension, normal ROM of the hip Standing no bulge/mass w valsalva in the area. Vaginal Vestibular tenderness neg Rectal tenderness neg Bladder base tenderness neg Pelvic Floor Musculature RIGHT SIDED Pubococcygeus 1 Iliococcygeus 1 Coccygeus 1 Obturator 1 nontender R ischial spine LEFT SIDED Pubococcygeus 1 Iliococcygeus 01 Coccygeus 1 Obturator 1 (Pain Scale 1 to 3, 3= extreme) RV exam - deferred ASSESSMENT/ PLAN: Encounter Diagnosis ICD-10-CM 1. Trigger point M79.1 TRIGGER POINT INJECTION MULTI 1-2 MUSCLE GR 2. Myofascial pain M79.1 3. Chronic pelvic pain in female R10.2 G89.29 R groin pain possibly referred from R pelvic floor No clear trigger. No menstrual or cyclic pain 1. R vaginal TPI done. Repeat at f/u visit landon if she has significant improvemet in symptoms. 2. I am not sure if there might be a hernia--consider ultrasound of R groin if symptoms dont improve to r/o hernia Radha German MD Cc Gloria Voss MD <<<Procedure >>> ?? UNIVERSAL PROTOCOL / SAFETY CHECKLIST ?? Procedure to be performed: vaginal trigger point series ?? Sign in Communication: Completed ?? Time Out: Team Confirms the Correct Patient, Correct Procedure, Correct Site and Site Marking, Correct Position (if applicable), Prep and Dry Time (if applicable). Time: 10:00am ?? Affirmation of Time Out: YES ?? Sign Out Discussion: Completed ?? PROCEDURE NOTE: Area prepped with baby shampoo. 10 mL 0.5% bupivicaine mixed in a 10 mL syringe. Skin was prepped in a sterile fashion. Right vaginal wall Affected area was injected in 1 muscle Groups (2 areas) with 10 mL of the bupivicaine solution using a 22g needle. Patient tolerated the procedure well. After procedure, patient felt improvement in R groin pain Patient tolerated procedure well. ?? 0.5% Bupivacaine 10 ML lot # [id number] EXP: 02/16/2019 ALLERGIES ALLERGIES DATE TYPE / CODE NAME / CODE REACTION SEVERITY SOURCE 05/18/2018 Drug sumatriptan TUNNEL VISION Unknown [place] Allergy/416 succinate/[id number] [facility] [id number]([place] [address]([facility] ED [facility]) Repository 05/18/2018 Drug sumatriptan/[id number] TUNNEL VISION Unknown [place] Allergy/416 4044(RXNORM) [facility] [id number]([facility] ED CT) Repository 04/27/2010 Environ/420 DUST ITCHING [facility] [id number]([facility] ED CT) Repository 04/27/2010 DRUG SUMATRIPTAN OTHER: SEE C [facility] INGREDI/419 [facility] 869160([facility] ED CT) ENCOUNTERS ENCOUNTERS ADMIT/DISCHARGE ACCOUNT ADMITTING ENCOUNTER LOCATION SOURCE NUMBER CLASS 05/22/2018/05/29/20 [id number] Ambulatory [address] Repository 05/18/2018/05/18/20 [id number] Emergency [address] ing:ED Repository 04/10/2018/04/15/20 [id number] Ambulatory [address] Repository 03/29/2018 [id number] [facility] ing:LABSPEC Repository 03/25/2018 [id number] [facility] ing:LAB.FUTUR Repository E 02/25/2018/03/01/20 [id number] Ambulatory [address] Repository 02/11/2018 [id number] [facility] ing:RAD Repository 01/31/2018 [id number] Ambulatory [facility] ing:CT Repository 01/25/2018 [id number] Ambulatory [facility] ing:LABSPEC Repository 01/22/2018 [id number] Ambulatory [facility] ing:POLAB3 Repository 01/17/2018/01/18/20 [id number] Emergency [address] ing:ED Repository 01/14/2018/01/18/20 [id number] Ambulatory [address] [place] Repository 12/27/2017 [id number] Ambulatory [facility] ing:POLAB3 Repository 12/04/2017/12/07/19 [id number] Ambulatory [address] [place] Repository 11/06/2017/11/15/19 [id number] Ambulatory [address] [place] Repository 10/09/2017/10/13/19 [id number] Ambulatory [address] [place] Repository 09/18/2017/09/22/19 [id number] Ambulatory [address] [place] Repository 08/21/2017/08/24/19 [id number] Ambulatory [address] [place] Repository 08/13/2017 [id number] Ambulatory [facility] ing:LAB.FUTUR Repository E 07/17/2017/07/19/19 [id number] Ambulatory [address] [place] Repository 06/28/2017 [id number] Ambulatory [facility] ing:POLAB3 Repository 06/26/2017/06/28/19 [id number] Ambulatory [address] [place] Repository PAYERS PAYERS ENCOUNTER GUARANTOR PAYER SUBSCRIBER SOURCE 05/18/2018 Louise Viramontes Primary Louise [id number] [facility] [place] Number: [id number] [id number] Repository [address]Ugl: ([phone]) Date:2018-05-18P [phone] () [address]ATTN: [place] [address]VU: 05/18/2018 Secondary NOT GIVENUNK [place] Insurance:SELF PAY [facility] Number: Effective Repository Date:2018-05-18 03/29/2018 Louise L Primary Louise L [place] [id number] Insurance:CARESOURCEP PrenticeDOB[facility] Number: [id number] [id number] Repository [address]Jus: ([phone]) Date:2018-03-29 O [phone] () [address]ATTN: [place] [address]PM: 03/29/2018 Secondary NOT GIVENUNK [place] Insurance:SELF PAY [facility] Number: Effective Repository Date:2018-03-29 03/25/2018 Louise L Primary Louise L [place] [id number] Insurance:CARESOURCEP PrenticeDOB: [facility] Number: [id number] [id number] Repository [address]Cfk: ([phone]) Date:2018-02-14P O [phone] () [address]ATTN: [place] [address]XL: 03/25/2018 Secondary NOT GIVENUNK [place] Insurance:SELF PAY [facility] Number: Effective Repository Date:2018-02-14 02/11/2018 Louise L Primary Louise L [place] [id number] Insurance:CARESOURCEP PrenticeDOB: [facility] Number: [id number] [id number] Repository [address]Cen: ([phone]) Date:2018-02-05P O [phone] () [address]ATTN: [place] [address]BO: 02/11/2018 Secondary NOT GIVENUNK [place] Insurance:SELF PAY [facility] Number: Effective Repository Date:2018-02-05 01/31/2018 Louise L Primary Louise L [place] [id number] Insurance:CARESOURCEP [facility] Number: [id number] [id number] Repository [address]Jnh: ([phone]) Date:2018-01-22P O [phone] () [address]ATTN: [place] [address]CF: 01/31/2018 Secondary NOT GIVENUNK [place] Insurance:SELF PAY [facility] Number: Effective Repository Date:2018-01-22 01/25/2018 Louise L Primary Louise L [place] [id number] Insurance:CARESOURCEP PrenticeDOB: [facility] Number: [id number] [id number] Repository [address]Ktf: (330) Date:2018-01-25P O [phone] () [address]ATTN: [place] [address]DD: 01/25/2018 Secondary NOT GIVENUNK [place] Insurance:SELF PAY [facility] Number: Effective Repository Date:2018-01-25 01/22/2018 Louise L Primary Louise L [place] [id number] Insurance:CARESOURCEP PrenticeDOB: [facility] Number: [id number] [id number] Repository [address]Rgh: ([phone]) Date:2018-01-22 O [phone] () [address]ATTN: [place] [address]QM: 01/22/2018 Secondary NOT GIVENUNK [place] Insurance:SELF PAY [facility] Number: Effective Repository Date:2018-01-22 01/17/2018 Louise L Primary Louise L [place] [id number] Insurance:CARESOURCEP [facility]DOB[facility] Number: [id number] [id number] Repository [address]Mqw: ([phone]) Date:2018-01-17P O [phone] (HP) [address]ATTN: [place] [address]FR: 01/17/2018 Secondary NOT GIVENUNK [place] Insurance:SELF PAY [facility] Number: Effective Repository Date:2018-01-17 12/27/2017 Louise L Primary Louise L [place] [id number] Insurance:CARESOURCEP PrenticeDOB: [facility] guerra Number: [id number] [id number] Repository [address]Sfb: ([phone]) Date:2017-12-27 O [phone] (HP) [address]ATTN: [place] [address]VJ: 12/27/2017 Secondary NOT GIVENUNK [place] Insurance:SELF PAY [facility] Number: Effective Repository Date:2017-12-27 08/13/2017 Louise L Primary Louise L [place] [id number] Insurance:CARESOURCEP PrenticeDOB: [facility] Number: [id number] [id number] Repository [address]Pln: ([phone]) Date:2017-07-11P O [phone] (HP) [address]ATTN: [place] [address]CV: 08/13/2017 Secondary NOT GIVENUNK [place] Insurance:SELF PAY [facility] Number: Effective Repository Date:2017-07-11 06/28/2017 Louise L Primary Louise L [place] [id number] Insurance:CARESOURCEP PrenticeDOB: [facility] guerra Number: [id number] [id number] Repository [address]Kcy: (330) Date:2017-06-28P O [phone] (HP) [address]ATTN: [place] [address]YQ: 06/28/2017 Secondary NOT GIVENUNK [place] Insurance:SELF PAY [facility] Number: Effective Repository Date:2017-06-28
== END 2018-05-18 10:48 | disposition home or self-care (01) ==
LOC: ED 09:29
PROVIDERS: Emergency Provider Emergency Medicine; Family Provider Family Medicine Geriatric Medicine; PCP Family Medicine Geriatric Medicine
DX: R10.2 Pelvic and perineal pain (principal); R30.0 Dysuria; N89.8 Other specified noninflammatory disorders of vagina; K59.00 Constipation, unspecified; Z79.899 Other long term (current) drug therapy
CPT/HCPCS: 81001; 81025; 99282

== ENCOUNTER → 2018-06-21 10:28 | Outpatient (CLI) | payer MEDICAID, SELFPAY ==
[2018-06-21 12:56] LABS: Absolute Lymphocyte Count 2.18 X10^3/ul (0.83-4.51); Absolute Neutrophil Count 5.3 X10^3/uL (2.0-7.7); Basophil# 0.02 X10^3/uL; Basophil% 0.2 % (0-1); Eosinophil# 0.14 X10^3/uL; Eosinophils% 1.7 % (0-5); Hematocrit 37.2 % (37-47); Hemoglobin 12.2 g/dl (12.0-15.0); Lymphocyte # 2.18 X10^3/ul (4.0); Lymphocyte % 26.9 % (19-41); Mean Corp Hgb Conc 32.8 g/gl (32-36); Mean Corpuscular Hgb 29.8 pg (27.0-32.0); Mean Corpuscular Volume 90.7 fL (81-99); Mean Platelet Vol. 10.4 fl (6.2-12.0); Monocyte# 0.43 X10^3/uL; Monocyte% 5.3 % (0-10); Neutrophil # 5.31 X10^3/uL (2.7-7.7); Neutrophil % 65.8 % (47-70); Platelet Count 298 K/mm3 (150-450); RBC Distribution Width CV 13.5 % (11.6-14.6); RBC Distribution Width SD 44.1 fl (35.1-43.9); White Blood Count 8.1 K/mm3 (4.4-11.0)
[2018-06-21 12:57] LABS: Erythrocyte Sedimentation Rate 14 mm/hr (0-20); POSITIVE COUNT NO; POSITIVE DIFFERENTIAL NO; POSITIVE MORPHOLOGY NO
[2018-06-21 13:11] LABS: ALB/GLOB Ratio 0.9 RATIO (0.9-2.4); AST(SGOT) 18 U/L (15-37); Alanine Aminotransfer ALT/SGPT 22 U/L (13-56); Albumin, Serum 3.6 g/dL (3.2-5.0); Alkaline Phosphatase 76 U/L (45-117); Anion Gap 9 (5-15); BUN 14 mg/dL (7-18); Calcium,Total 8.9 mg/dL (8.5-10.1); Chloride 106 mmol/L (98-107); EST Glomerular Filtration Rate 63 mL/min (>60); Est Glom Filt Rate - Afr Amer 77 mL/min (>60); Glucose 87 mg/dL (74-106); Protein, Total 7.6 g/dL (6.4-8.2); Sodium Level 139 mmol/L (136-145); Thyroid Stim Hormone (TSH) 5.88 uIU/mL (0.358-3.74)
== END ==
PROVIDERS: Family Provider Family Medicine Geriatric Medicine; PCP Family Medicine Geriatric Medicine; Visit Provider Family Medicine Geriatric Medicine
DX: I10 Essential (primary) hypertension (principal); M19.90 Unspecified osteoarthritis, unspecified site; R70.0 Elevated erythrocyte sedimentation rate
CPT/HCPCS: 36415; 80053; 84443; 85025; 85652; 86140

== ENCOUNTER → 2018-09-11 16:14 | Outpatient (CLI) | payer MEDICAID, SELFPAY | PROVIDERS: Family Provider Family Medicine Geriatric Medicine; PCP Family Medicine Geriatric Medicine; Referring Provider Family Medicine Geriatric Medicine; Visit Provider Family Medicine Geriatric Medicine | DX: R68.83 Chills (without fever) (principal) | CPT/HCPCS: 87633 ==

== ENCOUNTER → 2019-01-06 10:07 | Outpatient (CLI) | payer MEDICAID, SELFPAY ==
[2019-01-06 12:29] LABS: Absolute Lymphocyte Count 2.47 X10^3/uL (0.83-4.51); Absolute Neutrophil Count 6.9 X10^3/uL (2.0-7.7); Basophil# 0.04 X10^3/uL; Basophil% 0.4 % (0-1); Eosinophil# 0.13 X10^3/uL; Eosinophils% 1.3 % (0-5); Hematocrit 40.3 % (37-47); Lymphocyte # 2.47 X10^3/ul (4.0); Lymphocyte % 24.3 % (19-41); Mean Corp Hgb Conc 32.3 g/dL (32-36); Mean Corpuscular Hgb 30.5 pg (27.0-32.0); Mean Corpuscular Volume 94.6 fL (81-99); Mean Platelet Vol. 11.6 fl (6.2-12.0); Monocyte# 0.57 X10^3/uL; Monocyte% 5.6 % (0-10); NRBC Flagged by Analyzer 0 % (0-5); Neutrophil # 6.94 X10^3/uL (2.7-7.7); Neutrophil % 68.2 % (47-70); Platelet Count 244 K/mm3 (150-450); RBC Distribution Width CV 13.1 % (11.6-14.6); RBC Distribution Width SD 44.9 fl (35.1-43.9); Red Blood Count 4.26 M/mm3 (4.2-5.4); White Blood Count 10.2 K/mm3 (4.4-11.0)
[2019-01-06 13:25] LABS: ALB/GLOB Ratio 0.8 RATIO (0.9-2.4); AST(SGOT) 22 U/L (15-37); Alanine Aminotransfer ALT/SGPT 21 U/L (13-56); Albumin, Serum 3.3 g/dL (3.2-5.0); Alkaline Phosphatase 84 U/L (45-117); Anion Gap 10 (5-15); BUN 13 mg/dL (7-18); BUN/Creat Ratio 14.5 RATIO (10-20); Calcium,Total 9.2 mg/dL (8.5-10.1); Chloride 106 mmol/L (98-107); EST Glomerular Filtration Rate 72 mL/min (>60); Est Glom Filt Rate - Afr Amer 87 mL/min (>60); Globulin 4.3 g/dL (2.2-4.2); Glucose 72 mg/dL (74-106); Potassium 3.9 mmol/L (3.5-5.1); Protein, Total 7.6 g/dL (6.4-8.2); Sodium Level 141 mmol/L (136-145); Thyroid Stim Hormone (TSH) 2.13 uIU/mL (0.358-3.74)
== END ==
PROVIDERS: Family Provider Family Medicine Geriatric Medicine; PCP Family Medicine Geriatric Medicine; Visit Provider Family Medicine Geriatric Medicine
DX: I10 Essential (primary) hypertension (principal)
CPT/HCPCS: 36415; 80053; 84443; 85025

== ENCOUNTER 2019-01-08 20:51 | Emergency (ER) | payer MEDICAID, SELFPAY ==
[2019-01-08 20:52] VITALS: BP 182/97; PULSE 108; RESP 20; TEMP 36.4; O2SAT 100; BMI 27.6
[2019-01-08 21:00] VITALS: BP 189/94; PULSE 87; RESP 16; O2SAT 99
--- NOTE | 2019-01-08 21:17 | RAD_ITS ---
STUDY: X-RAY CHEST REASON FOR EXAM: Female, 48 years old. Chest pain TECHNIQUE: Single AP portable view of the chest. COMPARISON: 01/17/2018 FINDINGS: The lungs are clear and expanded. There is no demonstrated pleural abnormality. Normal size heart. Normal mediastinum and sweta. Normal visualized pulmonary arteries. Normal visualized aortic arch and descending thoracic aorta. Normal visualized thoracic spine. Normal visualized ribs, clavicles, and shoulders. There is no demonstrated abnormality of the visualized soft tissue structures of the upper abdomen. RAD/Chest 1 View (Portable) IMPRESSION: Normal x-ray examination of the chest. Electronically Signed: Gold Matias MD at 21:59 EDT , Service support ,
--- NOTE | 2019-01-08 21:17 | EKG12_ITS ---
Test Reason : PALPITATIONS Blood Pressure : / mmHG Vent. Rate : 087 BPM Atrial Rate : 087 BPM P-R Int : 196 ms QRS Dur : 098 ms QT Int : 374 ms P-R-T Axes : 050 055 051 degrees QTc Int : 450 ms Normal sinus rhythm Normal ECG Confirmed by RENÉ CHURCHILL ([id number]), sports editor ALYCIA MOSLEY ([id number]) on 01/09/2019 9:46:33 AM Referred By: BRIAN Confirmed By:RENÉ CHURCHILL
[2019-01-08] MEDS: LORazepam 1 MG Tablet PO (21:29)
[2019-01-08 21:39] LABS: Absolute Lymphocyte Count 3.56 X10^3/uL (0.83-4.51); Absolute Neutrophil Count 9.7 X10^3/uL (2.0-7.7); Basophil# 0.04 X10^3/uL; Basophil% 0.3 % (0-1); Eosinophil# 0.04 X10^3/uL; Eosinophils% 0.3 % (0-5); Hemoglobin 13.3 g/dL (12.0-15.0); Lymphocyte # 3.56 X10^3/ul (4.0); Lymphocyte % 25.2 % (19-41); Mean Corp Hgb Conc 34.1 g/dL (32-36); Mean Corpuscular Hgb 31.2 pg (27.0-32.0); Mean Corpuscular Volume 91.5 fL (81-99); Mean Platelet Vol. 10.4 fl (6.2-12.0); Monocyte# 0.76 X10^3/uL; Monocyte% 5.4 % (0-10); NRBC Flagged by Analyzer 0 % (0-5); Neutrophil # 9.69 X10^3/uL (2.7-7.7); Neutrophil % 68.4 % (47-70); Platelet Count 232 K/mm3 (150-450); RBC Distribution Width CV 13.1 % (11.6-14.6); RBC Distribution Width SD 43.2 fl (35.1-43.9); Red Blood Count 4.26 M/mm3 (4.2-5.4); White Blood Count 14.2 K/mm3 (4.4-11.0)
[2019-01-08] MEDS: Ketorolac 60 MG/2 ML Vial IM (21:43)
--- NOTE | 2019-01-08 21:51 | ED.VISSUMM ---
- ER Visit Summary Date of Service: 01/08/19 Chief Complaint: Anxiety History of Present Illness: The patient is a 48 F presenting with anxiety. She states that she feels panicky. She states it has been ongoing for the past 3 days and has been constant. She has had chest pain and shortness of breath which have been constant. She states she feels overwhelmed with work and very panicky. She was recently changed from Ativan to Paxil. She started Paxil on Sunday. She denies suicidal ideation. She denies PE/DVT risk factors. Denies CAD risk factors. Physical Examination: Vitals are stable. Patient is afebrile. Pulse ox 100% on room air. Alert no acute distress. HEENT exam is unremarkable. Neck is supple. Lungs are clear and equal bilaterally. Left upper chest wall tenderness with no crepitus Heart is regular rate and rhythm. Abdomen is soft nontender nondistended. Extremities are unremarkable. Skin is warm and dry. No focal neurologic deficit. Remainder of exam is unremarkable. Emergency Department Course and Treatment: She was given Ativan, Toradol. EKG is sinus rate of 87, similar to previous. CBC shows a white count of 14.2. Chemistries show potassium 3.0. She was given potassium oral replacement. D-dimer negative. Troponin is negative. Her symptoms have been constant for 3 days. On reevaluation, patient is feeling improved. She is advised to follow-up with her primary care physician. Advised to return to the ED for worsening complaints. Disposition: Discharge home Impression: Chest wall pain, anxiety This note was generated with [employer] dictation software. It may contain incorrect words, spelling, and punctuation that were not noted in review of the chart prior to signing ED Disposition - Plan for ED Patient: Referrals: Bear Meyer Chi, MD [Primary Care Provider] -
[2019-01-08 21:53] LABS: D-Dimer Quantitative (DVT/PE) < 0.27 FEU/ug/m (0.27-0.49)
[2019-01-08 21:57] LABS: Anion Gap 8 (5-15); BUN 18 mg/dL (7-18); BUN/Creat Ratio 18.7 RATIO (10-20); Chloride 105 mmol/L (98-107); Creatinine, Serum 0.96 mg/dL (0.55-1.02); EST Glomerular Filtration Rate 66 mL/min (>60); Est Glom Filt Rate - Afr Amer 80 mL/min (>60); Estimated Creatinine Clearance 76.52 ml/min; Glucose 102 mg/dL (74-106); Sodium Level 137 mmol/L (136-145)
--- NOTE | 2019-01-08 22:23 | ED.DEP ---
ED Disposition - Plan for ED Patient: Instructions: Chest Wall Strain, Anxiety Reaction Prescriptions: Naproxen [Naprosyn] 500 mg PO BID PRN #20 tablet Referrals: Bear Meyer Chi, MD [Primary Care Provider] -
[2019-01-08 22:51] VITALS: BP 153/98; PULSE 79; RESP 16; O2SAT 97
== END 2019-01-08 22:53 | disposition home or self-care (01) ==
PROVIDERS: Emergency Provider Emergency Medicine; Family Provider Family Medicine Geriatric Medicine; PCP Family Medicine Geriatric Medicine
DX: R07.89 Other chest pain (principal); F41.9 Anxiety disorder, unspecified; R06.02 Shortness of breath; Z79.899 Other long term (current) drug therapy
CPT/HCPCS: 71045; 80048; 84484; 85025; 85379; 93005; 96372; 99284

== ENCOUNTER 2019-01-11 03:28 | Emergency (ER) | payer MEDICAID, SELFPAY ==
[2019-01-11 03:29] VITALS: BP 168/113; PULSE 82; RESP 14; TEMP 36.6; O2SAT 100; BMI 27.6
--- NOTE | 2019-01-11 03:52 | ED.DCSUM_ITS ---
History of Present Illness Chief Complaint: General Illness Informant: Patient Narrative: Patient stated she had 3 loose bowel movements this evening that were yellow in nature. She has some bloating and cramping in her lower abdomen. No sick contacts or bad food exposures. No fevers or chills. Seen in the emergency department 3 days ago for anxiety with negative labs except for potassium slightly low. This was replaced. Current severity is mild. No home treatment. She does have Pepto-Bismol but did not take it. Past Medical History - Allergies and Home Meds Allergies/Adverse Reactions: Allergies sumatriptan [From Imitrex] Allergy (Verified 01/08/19 20:52) TUNNEL VISION sumatriptan succinate [From Imitrex] Allergy (Verified 01/08/19 20:52) TUNNEL VISION Primary Care Physician: Bear Meyer Chi, MD [Primary Care Provider] - Prior records reviewed: Yes Past Medical History: - - Anxiety hypothyroid Surgical History: - - Rhinoplasty for deviated septum, bilateral tubal ligation Lives: With Family Smoking Status: Former smoker Alcohol: None Drugs: None Review of Systems General: Denies: Chills, Fever, Sweats Eyes: Denies: Visual changes - bilaterally, Diplopia ENT: Denies: Rhinorrhea, Sore throat Cardiovascular: Denies: Chest pain, Palpitations Respiratory: Denies: Dyspnea, Cough, Dyspnea on exertion Gastrointestinal: Reports: Abdominal pain - Abdominal cramping, Diarrhea. Denies: Nausea, Vomiting, Melena, Hematochezia Genitourinary: Denies: Dysuria, Hematuria, Frequency Musculoskeletal: Denies: Back pain, Extremity Pain Skin: Denies: Rash, Wounds Neurological: Denies: Headache, Weakness, Numbness Physical Exam Vital Signs/Narrative: Vital Signs Temp Pulse Resp BP Pulse Ox 01/11/19 03:29 97.8 F 82 14 168/113 H 100 General: Well nourished, Well developed, No Acute Distress Head: Normocephalic, Atraumatic Eyes: Perrl, EOMI ENT: Moist mucous membranes, No rhinorrhea Neck: Supple, Nontender Cardiovascular: Regular rate, Regular rhythm, No murmurs Respiratory: No distress, CTA bilaterally, Chest nontender Abdomen: Soft, Nontender, Nondistended, Normal bowel sounds Back: Nontender, Normal Inspection Extremities: Nontender, No edema Skin: Normal color, No rash Neurological: Alert, Oriented x3, Cranial nerves II-XII grossly intact, Normal Strength, Normal Sensation Psychological: Normal affect, Normal Mood Diagnostic/Tx/Re-eval - Medical Decision Making She exam unremarkable. I do not feel she needs lab work. She has a suspected gastroenteritis. Given Imodium. Will use Imodium at home as well as Pepto- Bismol. I do not feel she needs imaging. She is nontoxic. Understands the course may be a few days. We will follow-up as an outpatient return if she worsens. ED Disposition - Plan for ED Patient: Disposition: Home or Assisted Living Diagnosis: Acute diarrhea Instructions: Treating Diarrhea Referrals: Bear Meyer Chi, MD [Primary Care Provider] -
[2019-01-11] MEDS: Loperamide 2 MG Capsule 4 MG PO (04:07)
[2019-01-11 04:10] VITALS: BP 138/60; PULSE 66; RESP 18; O2SAT 99
== END 2019-01-11 04:10 | disposition home or self-care (01) ==
LOC: ED 03:58
PROVIDERS: Emergency Provider Emergency Medicine; Family Provider Family Medicine Geriatric Medicine; PCP Family Medicine Geriatric Medicine
DX: R19.7 Diarrhea, unspecified (principal); E03.9 Hypothyroidism, unspecified; F41.9 Anxiety disorder, unspecified; Z79.899 Other long term (current) drug therapy; Z87.891 Personal history of nicotine dependence
CPT/HCPCS: 99283

== ENCOUNTER → 2019-01-15 15:16 | Outpatient (CLI) | payer MEDICAID, SELFPAY ==
[2019-01-11 03:29] VITALS: BMI 27.6
[2019-01-15 16:46] LABS: Anion Gap 6 (5-15); BUN 12 mg/dL (7-18); BUN/Creat Ratio 14.2 RATIO (10-20); Calcium,Total 8.9 mg/dL (8.5-10.1); Chloride 107 mmol/L (98-107); Creatinine, Serum 0.85 mg/dL (0.55-1.02); EST Glomerular Filtration Rate 77 mL/min (>60); Est Glom Filt Rate - Afr Amer 93 mL/min (>60); Glucose 92 mg/dL (74-106); Potassium 3.5 mmol/L (3.5-5.1); Sodium Level 137 mmol/L (136-145)
[2019-01-20 05:38] LABS: Beef <0.10 kU/L (Class 0); Corn <0.10 kU/L (Class 0); Egg, Whole <0.10 kU/L (Class 0); Milk (Cow) 0.13 kU/L (Class 0/I); Peanut <0.10 kU/L (Class 0); Pork <0.10 kU/L (Class 0); Soybean <0.10 kU/L (Class 0); Wheat <0.10 kU/L (Class 0)
[2019-01-20 08:17] LABS: Chocolate <0.10 kU/L (Class 0)
== END ==
PROVIDERS: Family Provider Family Medicine Geriatric Medicine; PCP Family Medicine Geriatric Medicine; Visit Provider Family Medicine Geriatric Medicine
DX: E87.6 Hypokalemia (principal); T78.40XA Allergy, unspecified, initial encounter
CPT/HCPCS: 36415; 80048; 86003; 86005

== ENCOUNTER → 2019-03-31 16:59 | Outpatient (CLI) | payer MEDICAID, SELFPAY | PROVIDERS: Family Provider Family Medicine Geriatric Medicine; PCP Family Medicine Geriatric Medicine; Referring Provider Family Medicine Geriatric Medicine; Visit Provider Family Medicine Geriatric Medicine | DX: R68.83 Chills (without fever) (principal) | CPT/HCPCS: 87633 ==

== ENCOUNTER 2019-04-14 22:50 | Emergency (ER) | payer MEDICAID, SELFPAY ==
[2019-04-14 22:51] VITALS: BP 162/106; PULSE 85; RESP 14; TEMP 36.6; O2SAT 99; BMI 25.8
--- NOTE | 2019-04-14 23:07 | ED.VIS.GEN ---
History of Present Illness Chief Complaint: Sore Throat Informant: Patient Onset: Days Narrative: Patient saw her primary care physician last week for bronchitis type symptoms with sinus pressure, sore throat, central chest pressure and mild cough. Respiratory viral panel was negative. She was treated with doxycycline and diclofenac. She was placed on prednisone but states she feels like that makes her swell so she did not take it. Symptoms improved while she was on the medication. This ended about 3 days ago and since that time she has felt increasing tightness in her throat. She states this caused her to have a panic attack this afternoon. She states she feels like her mouth is very dry. She is having no difficulty tolerating secretions and speaks the strong voice. She is in no distress. Past Medical History - Allergies and Home Meds Allergies/Adverse Reactions: Allergies sumatriptan [From Imitrex] Allergy (Verified 04/14/19 22:54) TUNNEL VISION sumatriptan succinate [From Imitrex] Allergy (Verified 04/14/19 22:54) TUNNEL VISION Primary Care Physician: Bear Meyer Chi, MD [Primary Care Provider] - Prior records reviewed: Yes Past Medical History: - - Reviewed Surgical History: - - Rhinoplasty for deviated septum, bilateral tubal ligation Lives: Spouse/ Significant Other Smoking Status: Former smoker Review of Systems General: Denies: Chills, Fever Eyes: Denies: Visual changes - bilaterally ENT: Reports: Sore throat. Denies: Bilateral ear pain Cardiovascular: Denies: Chest pain Respiratory: Denies: Dyspnea, Cough Gastrointestinal: Denies: Abdominal pain, Nausea, Vomiting, Diarrhea Genitourinary: Denies: Dysuria Musculoskeletal: Denies: Swelling, Extremity Pain Skin: Denies: Rash, Wounds Neurological: Denies: Headache Hematologic: Denies: Easy bruising Allergy: Denies: Uticaria Physical Exam Vital Signs/Narrative: Vital Signs Temp Pulse Resp BP Pulse Ox 04/14/19 22:51 97.9 F 85 14 162/106 H 99 Diagnostic/Tx/Re-eval Impressions Soft Tissue Neck X-Ray 04/14/19 23:15 IMPRESSION: Normal x-ray soft tissue neck. Electronically Signed: Christopher Saxena MD at 23:38 EDT Tel , Service support , 04/14/19 23:15 Xray Neck Soft Tissue [Neck for Soft Tissue] [RAD] Stat 04/14/19 23:04 Mucosa - Throat Group A Streptococcus Rapid Screen - Final Streptococcus Group A - POSITIVE - Medical Decision Making On repeat evaluation patient is resting comfortably. I did discuss x-ray results with her. Strep test is positive. She prefer a one-time shot and will be given Bicillin LA. ED Disposition - Plan for ED Patient: Disposition: Home or Assisted Living Diagnosis: Strep pharyngitis Instructions: PHARYNGITIS, Strep (Confirmed) Referrals: Bear Meyer Chi, MD [Primary Care Provider] - 5-7 Days
--- NOTE | 2019-04-14 23:15 | RAD_ITS ---
STUDY: X-RAY - SOFT TISSUE NECK REASON FOR EXAM: Female, 48 years old. Sore throat TECHNIQUE: 2 view(s) of the neck were obtained. COMPARISON: None. FINDINGS: Normal visualized nasopharynx, oropharynx, hypopharynx. Normal epiglottis. Normal visualized subglottic tracheal air column. Normal prevertebral soft tissue structures. Normal visualized osseous structures. The soft tissue structures are unremarkable. RAD/Neck for Soft Tissue IMPRESSION: Normal x-ray soft tissue neck. Electronically Signed: Christopher Saxena MD at 23:38 EDT Tel , Service support ,
[2019-04-14] MEDS: Penicillin G Benzathine 1.2 MU/2 ML Syringe IM (23:52)
[2019-04-15 00:21] VITALS: RESP 16
== END 2019-04-15 00:22 | disposition home or self-care (01) ==
PROVIDERS: Emergency Provider Emergency Medicine; Family Provider Family Medicine Geriatric Medicine; PCP Family Medicine Geriatric Medicine
DX: J02.0 Streptococcal pharyngitis (principal); Z87.891 Personal history of nicotine dependence
CPT/HCPCS: 70360; 87880; 96372; 99282

== ENCOUNTER → 2019-04-30 17:10 | Outpatient (CLI) | payer MEDICAID, SELFPAY ==
[2019-04-14 22:51] VITALS: BMI 25.8
[2019-04-30 17:54] LABS: Internal QC Validated? YES +Cl - CLEAR BKGD; Monotest Negative (Negative)
== END ==
PROVIDERS: Family Provider Family Medicine Geriatric Medicine; PCP Family Medicine Geriatric Medicine; Visit Provider Family Medicine Geriatric Medicine
DX: J02.0 Streptococcal pharyngitis (principal); R07.0 Pain in throat
CPT/HCPCS: 36415; 86308

== ENCOUNTER 2019-05-04 07:49 | Emergency (ER) | payer MEDICAID, SELFPAY ==
[2019-05-04 07:50] VITALS: BP 195/114; PULSE 95; RESP 18; TEMP 36.4; O2SAT 98; BMI 25.4
--- NOTE | 2019-05-04 08:12 | EKG12_ITS ---
Test Reason : DIZZY Blood Pressure : / mmHG Vent. Rate : 078 BPM Atrial Rate : 078 BPM P-R Int : 190 ms QRS Dur : 102 ms QT Int : 366 ms P-R-T Axes : 052 038 046 degrees QTc Int : 417 ms Normal sinus rhythm T wave abnormality, consider lateral ischemia Abnormal ECG Confirmed by LYNNE VALENZUELA, NURYS ([id number]), scientific editor ALYCIA MOSLEY ([id number]) on 05/06/2019 11:43:51 AM Referred By: RANCHO Confirmed By:NURYS BATISTA MD
--- NOTE | 2019-05-04 08:13 | ED.DCSUM_ITS ---
History of Present Illness Chief Complaint: Dizziness Detail of Chief Complaint: Lightheaded, left facial numbness Informant: Patient Onset: - - Dizziness times several weeks, left facial numbness today Current Severity: Mild Maximum Severity: Moderate Narrative: She presents secondary to dizziness and left facial numbness. She has had recent URI symptoms with congestion and thick phlegm in her throat. She tested positive for strep pharyngitis in April 14 and received Bicillin LA injection here. Patient states her primary care doctor follow this up with a course of amoxicillin. She states her URI symptoms are feeling better but she does still have thick phlegm in her throat. She is still is having issues with lightheadedness. She was seen in her primary care's office yesterday and received IV fluids along with Ativan for anxiety. She states this did seem to help her dizziness. She was given an order for a CAT scan of her head to be performed tomorrow. She states they were looking for lymph nodes as it is taking her quite a while to get over this illness. She states she woke this morning with numbness and pain over the left maxilla radiating to behind the left ear and down her left neck. She had no difficulty with swallowing or tolerating secretions. - Past Medical History (1) Hypothyroidism Status: Chronic (2) Hypertension Status: Chronic (3) GERD (gastroesophageal reflux disease) Status: Chronic (4) Anxiety Status: Chronic Past Medical History - Allergies and Home Meds Allergies/Adverse Reactions: Allergies milk Allergy (Verified 05/04/19 07:53) Other sumatriptan [From Imitrex] Allergy (Verified 05/04/19 07:53) TUNNEL VISION sumatriptan succinate [From Imitrex] Allergy (Verified 05/04/19 07:53) TUNNEL VISION Primary Care Physician: Bear Meyer Chi, MD [Primary Care Provider] - As soon as possible Prior records reviewed: Yes Surgical History: - - Rhinoplasty for deviated septum, bilateral tubal ligation Lives: Spouse/ Significant Other Smoking Status: Former smoker Review of Systems General: Denies: Chills, Fever Eyes: Denies: Visual changes - bilaterally ENT: Reports: Left ear pain Cardiovascular: Denies: Chest pain, Palpitations Respiratory: Denies: Dyspnea, Cough Gastrointestinal: Denies: Abdominal pain, Nausea, Vomiting, Diarrhea Genitourinary: Denies: Dysuria Musculoskeletal: Reports: Neck pain. Denies: Swelling, Extremity Pain Neurological: Reports: Parasthesia Psych: Reports: Anxiety Hematologic: Denies: Easy bruising, Easy bleeding Allergy: Denies: Uticaria Physical Exam Vital Signs/Narrative: Vital Signs Temp Pulse Resp BP Pulse Ox 05/04/19 07:50 97.5 F L 95 18 195/114 H 98 Inital Vital Signs reviewed: Yes General: Well nourished, Well developed Head: Normocephalic ENT: Moist mucous membranes, TM's clear, - - Mild tenderness of the left mastoid air cells. No overlying erythema. Mild tenderness in the left preauricular area. Neck: Supple Cardiovascular: Regular rate, Regular rhythm Respiratory: No distress, CTA bilaterally Abdomen: Soft, Nontender, Nondistended Back: Nontender Extremities: Nontender Skin: Normal color, No rash Neurological: Alert, Oriented x3, - - Patient reports slight decreased sensation to light touch of the left maxilla. This also extends to the mastoid air cell region behind her left ear. There is no motor weakness. Psychological: Normal affect Diagnostic/Tx/Re-eval Impressions Head/Neck CTA 05/04/19 08:13 IMPRESSION: No CT evidence of acute intracranial hemorrhage. Electronically Signed: Nelda Alvarez MD at 10:16 EST , Service support , 05/04/19 08:13 CTA Head AND Neck W/ Contrast [CT] Stat Laboratory Results 05/04/19 05/04/19 08:48 08:48 WBC 9.5 RBC 4.32 Hgb 13.4 Hct 40.8 MCV 94.4 MCH 31.0 MCHC 32.8 RDW Std Deviation 45.3 H RDW Coeff of Dylon 13.2 Plt Count 231 MPV 10.7 Immature Gran % (Auto) 0.400 Neut % (Auto) 73.8 H Lymph % (Auto) 19.4 Dupage % (Auto) 5.6 Eos % (Auto) 0.6 Baso % (Auto) 0.2 Absolute Neuts (auto) 7.0 Absolute Lymphs (auto) 1.84 Nucleated RBC % 0 Sodium 140 Potassium 4.5 Chloride 106 Carbon Dioxide 25.0 Anion Gap 9 BUN 8 Creatinine 0.96 Estim Creat Clear Calc 73.87 Est GFR (MDRD) Af Amer 80 Est GFR (MDRD) Non-Af 66 BUN/Creatinine Ratio 8.3 L Glucose 93 Calcium 9.2 Troponin I < 0.015 - EKG Initial EKG Interpretation: Sinus Rhythm - Sinus at [address] depression in the lateral leads. This is similar to prior EKG from December 2018. - Medical Decision Making Laboratory work-up is grossly unremarkable. CTA does results were discussed with the patient. Advised her she does have one area of narrowing in her vertebral artery that needs to be monitored. On repeat evaluation patient is resting comfortably. She believes her symptoms are secondary to her anxiety. She states she felt better yesterday after receiving some Ativan in her doctor's office. She is given a short course of Ativan here. I also discussed the importance of monitoring her blood pressure. She will discuss this with her primary care physician this week. ED Disposition - Plan for ED Patient: Disposition: Home or Assisted Living Diagnosis: Paresthesia, Anxiety Instructions: Anxiety Reaction, Paraesthesias Prescriptions: Lorazepam [Ativan] 0.5 mg PO TID PRN #10 tab PRN Reason: Anxiety Prescription Printed Referrals: Bear Meyer Chi, MD [Primary Care Provider] - As soon as possible
--- NOTE | 2019-05-04 08:13 | CT_ITS ---
STUDY: CTA HEAD AND NECK WITH CONTRAST REASON FOR EXAM: Female, 48 years old. Left-sided facial paresthesias and dizziness. RADIATION DOSAGE (If Supplied By Facility): CTDIvol = ( 30.84 ) mGy, DLP = ( 1453.52 ) mGycm TECHNIQUE: CT angiography was performed with a multi-detector CT scanner. Data acquisition was obtained from the skull base through the vertex following intravenous administration of 100 ml of IV Isovue 370. MIP images were reconstructed from the axial data set. Post-processing of the angiographic images was performed, with multiplanar reformation and 3D reconstruction. Individualized dose optimization techniques were used for this CT. COMPARISON: CT of the head dated January 17, 2018. FINDINGS: Normal bilateral petrous carotid arteries. Normal right cavernous carotid artery with a normal supraclinoid bifurcation. There is elongation and tortuosity of the left cavernous carotid artery without a demonstrated hemodynamically significant stenosis. Normal right A1 segments of the anterior cerebral artery. Normal left A1 segments of the anterior cerebral artery. Normal intact anterior communicating artery (ACOM). Normal bilateral A2 segments of the anterior cerebral arteries. Normal right M1 and M2 segments of the middle cerebral arteries, with a normal M1 bifurcation. Normal left M1 and M2 segments of the middle cerebral arteries, with a normal M1 bifurcation. Normal right posterior communicating artery (PCOM). Normal left posterior communicating artery (PCOM). Normal bilateral vertebral arteries. Normal basilar artery with a normal basilar bifurcation. The visualized bilateral superior cerebellar (SCA) arteries are normal. Normal bilateral P1, P2 and visualized P3 segments of the posterior cerebral arteries. There is no demonstrated aneurysm of the [place]. There is no demonstrated abnormality of the visualized brain. AORTIC ARCH: Normal visualized aortic arch. Patient has a right sided retroesophageal subclavian artery. The origins of the great vessels are otherwise within normal limits. RIGHT CAROTID ARTERIES: Normal right common carotid artery (CCA). Normal right common carotid bulb. Normal origin of the right internal carotid (ICA) artery without a hemodynamically significant stenosis. Normal visualized cervical portion of the right internal carotid artery. Normal origin of the right external carotid artery (ECA). LEFT CAROTID ARTERIES: Normal left common carotid artery (CCA). Normal left common carotid bulb. Normal origin of the left internal carotid (ICA) artery without a hemodynamically significant stenosis. Normal visualized cervical portion of the left internal carotid artery. Normal origin of the left external carotid artery (ECA). VERTEBRAL ARTERIES: There is a focal area of narrowing of the left cervical vertebral artery at the level of C5-6. Estimated amount of narrowing is at least 50% of expected diameter. This could be the result of previous injury. The left cervical vertebral artery otherwise is widely patent. The right cervical vertebral artery is widely patent. IMPRESSION: 1. Focal narrowing of the left cervical vertebral artery possibly related to previous injury. 2. No CT evidence for acute thrombosis. 3. No CTA evidence for intracranial arterial stenosis, acute thrombosis or aneurysm. STUDY: CT BRAIN WITHOUT CONTRAST REASON FOR EXAM: Female, 48 years old. Left-sided facial paresthesias and dizziness. RADIATION DOSAGE (If Supplied By Facility): CTDIvol = ( 30.84 ) mGy, DLP = ( 1453.52 ) mGycm TECHNIQUE: Transaxial CT imaging of the brain was performed without administration of intravenous contrast material. Individualized dose optimization techniques were used for this CT. COMPARISON: No relevant priors. FINDINGS: Normal soft tissue structures. Normal calvarium. Normal size ventricles and extra-axial spaces for the patient's age. Normal white matter tracts of the cerebral hemispheres. Normal basal ganglia and thalami. Normal brainstem. Normal cerebellum. There is no intracranial hemorrhage. There are no findings of an acute ischemic infarction. Normal visualized paranasal sinuses. CT/CTA Head AND Neck W/ Contrast IMPRESSION: No CT evidence of acute intracranial hemorrhage. Electronically Signed: Nelda Alvarez MD at 10:16 EST , Service support ,
[2019-05-04 08:56] LABS: Absolute Lymphocyte Count 1.84 X10^3/uL (0.83-4.51); Basophil# 0.02 X10^3/uL; Basophil% 0.2 % (0-1); Eosinophil# 0.06 X10^3/uL; Eosinophils% 0.6 % (0-5); Hematocrit 40.8 % (37-47); Hemoglobin 13.4 g/dL (12.0-15.0); Lymphocyte # 1.84 X10^3/ul (4.0); Lymphocyte % 19.4 % (19-41); Mean Corp Hgb Conc 32.8 g/dL (32-36); Mean Corpuscular Volume 94.4 fL (81-99); Mean Platelet Vol. 10.7 fl (6.2-12.0); Monocyte# 0.53 X10^3/uL; Monocyte% 5.6 % (0-10); NRBC Flagged by Analyzer 0 % (0-5); Neutrophil % 73.8 % (47-70); Platelet Count 231 K/mm3 (150-450); RBC Distribution Width CV 13.2 % (11.6-14.6); RBC Distribution Width SD 45.3 fl (35.1-43.9); Red Blood Count 4.32 M/mm3 (4.2-5.4); White Blood Count 9.5 K/mm3 (4.4-11.0)
[2019-05-04] MEDS: 0.9% Normal Saline 1,000 ML 150 ML IV (09:04)
[2019-05-04 09:13] LABS: Anion Gap 9 (5-15); BUN 8 mg/dL (7-18); BUN/Creat Ratio 8.3 RATIO (10-20); Calcium,Total 9.2 mg/dL (8.5-10.1); Chloride 106 mmol/L (98-107); Creatinine, Serum 0.96 mg/dL (0.55-1.02); EST Glomerular Filtration Rate 66 mL/min (>60); Est Glom Filt Rate - Afr Amer 80 mL/min (>60); Estimated Creatinine Clearance 73.87 ml/min; Glucose 93 mg/dL (74-106); Potassium 4.5 mmol/L (3.5-5.1); Sodium Level 140 mmol/L (136-145)
[2019-05-04 10:58] VITALS: BP 175/97; PULSE 83; RESP 20; O2SAT 97
--- NOTE | 2019-05-04 10:59 | ED.RN ---
THIS NURSE REVIEWED D/C INSTRUCTIONS WITH PT. PT VERBALIZED UNDERSTANDING OF INSTRUCTIONS. IV D/C. IV CATHETER INTACT. PT TOLERATED WELL. PT DENIES FURTHER NEEDS OR QUESTIONS AT THIS TIME.
== END 2019-05-04 11:00 | disposition home or self-care (01) ==
PROVIDERS: Emergency Provider Emergency Medicine; Family Provider Family Medicine Geriatric Medicine; PCP Family Medicine Geriatric Medicine
DX: R20.0 Anesthesia of skin (principal); F41.9 Anxiety disorder, unspecified; R42 Dizziness and giddiness; I10 Essential (primary) hypertension; E03.9 Hypothyroidism, unspecified; K21.9 Gastro-esophageal reflux disease without esophagitis; Z79.899 Other long term (current) drug therapy; Z87.891 Personal history of nicotine dependence
CPT/HCPCS: 70496; 70498; 80048; 84484; 85025; 93005; 96360; 96361; 99284; J7030; Q9967; A4216

== ENCOUNTER → 2019-05-05 15:58 | Outpatient (CLI) | payer MEDICAID, SELFPAY ==
[2019-04-14 22:51] VITALS: BMI 25.8
[2019-05-04 07:50] VITALS: BMI 25.4
--- NOTE | 2019-05-05 15:59 | US_ITS ---
STUDY: SOFT TISSUE NECK ULTRASOUND REASON FOR EXAM: Female, 48 years old. Right-sided neck pain TECHNIQUE: Ultrasound evaluation of the neck soft tissue was performed with real-time and static orr-scale imaging. COMPARISON: None. FINDINGS: Right anterior cervical node measures 1.8 x 0.7 x 0.5 cm. Right posterior cervical node measures 1.2 x 0.8 x 0.3 cm. No left-sided prominent nodes are noted. No drainable collection. US/Head/Neck Soft Tissue IMPRESSION: Slightly prominent right-sided nodes as noted. Electronically Signed: Jacob Alberts DO at 23:56 EST Tel [phone], Service support ,
--- NOTE | 2019-05-05 17:09 | MRI_ITS ---
STUDY: MRI BRAIN WITH AND WITHOUT CONTRAST REASON FOR EXAM: Female, 48 years old. Headache and dizziness. TECHNIQUE: Standardized multiplanar fat and water weighted pulse sequences were obtained. IV Dotarem 15 was administered for the contrast portion of the examination. COMPARISON: CT brain and CTA head and neck 05/04/2019. FINDINGS: Normal size of the ventricles and extra-axial spaces for the patient's age. Normal white matter tracts of the supratentorial brain. Normal bilateral basal ganglia. Normal thalami. There is no extra-axial fluid accumulation. Normal flow voids within the major intracranial circulation suggesting patency by spin echo criteria. Normal venous enhancement. There is no enhancing intra-axial or extra-axial abnormality. Normal sella turcica, pituitary gland, infundibular stalk, optic chiasm and hypothalamus. Normal tectal plate and pineal gland. Normal midbrain, yamileth and medulla. Normal cerebellum. Normal basal cisterns. Normal bilateral temporal bones. Normal bilateral internal auditory canals. No demonstrated orbital abnormality, within the constraints of a routine brain study. Normal visualized paranasal sinuses. Normal calvarium and skull base. Normal visualized soft tissue structures. Normal visualized upper cervical spine. MRI/Brain W/WO Contrast IMPRESSION: Normal unenhanced and enhanced MRI of the brain. Electronically Signed: Bob Simpson, at 21:14 EST Tel , Service support ,
== END ==
PROVIDERS: Family Provider Family Medicine Geriatric Medicine; PCP Family Medicine Geriatric Medicine; Referring Provider Family Medicine Geriatric Medicine; Visit Provider Family Medicine Geriatric Medicine
DX: M54.2 Cervicalgia (principal); R51 Headache
CPT/HCPCS: 70553; 76536

== ENCOUNTER 2019-06-05 20:32 | Observation (INO) | payer MEDICAID, SELFPAY ==
[2019-06-05 20:32] VITALS: BP 165/94; PULSE 90; RESP 16; TEMP 36.4; O2SAT 100; BMI 25.2
--- NOTE | 2019-06-05 20:50 | EKG12_ITS ---
Test Reason : CP Blood Pressure : / mmHG Vent. Rate : 096 BPM Atrial Rate : 096 BPM P-R Int : 194 ms QRS Dur : 102 ms QT Int : 330 ms P-R-T Axes : 034 036 006 degrees QTc Int : 416 ms Normal sinus rhythm T wave abnormality, consider inferior ischemia Abnormal ECG Confirmed by LYNNE VALENZUELA, NURYS ([id number]), industrial editor LILIANA FLAHERTY ([id number]) on 06/09/2019 11:34:43 AM Referred By: HAZEL Confirmed By:NURYS BATISTA MD
--- NOTE | 2019-06-05 20:51 | RAD_ITS ---
STUDY: X-RAY CHEST REASON FOR EXAM: Female, 48 years old. Left side chest pain x several days. TECHNIQUE: Single AP portable view of the chest. COMPARISON: 01/08/2019 FINDINGS: EKG leads project over the chest. The lungs are clear and expanded. There is no demonstrated pleural abnormality. Normal size heart. Normal mediastinum and sweta. Normal visualized pulmonary arteries. Normal visualized aortic arch and descending thoracic aorta. Normal visualized thoracic spine. Normal visualized ribs, clavicles, and shoulders. There is no demonstrated abnormality of the visualized soft tissue structures of the upper abdomen. RAD/Chest 1 View (Portable) IMPRESSION: Stable, nonacute portable x-ray examination of the chest. Electronically Signed: Aditya Lewis MD ([place]) at 21:21 EST , Service support ,
[2019-06-05] MEDS: LORazepam 1 MG Tablet PO (20:56)
[2019-06-05] MEDS: Aspirin 81 MG TAB.CHEW 324 MG PO (20:56)
[2019-06-05 20:58] LABS: Absolute Lymphocyte Count 2.93 X10^3/uL (0.83-4.51); Absolute Neutrophil Count 8.8 X10^3/uL (2.0-7.7); Basophil# 0.03 X10^3/uL; Basophil% 0.2 % (0-1); Eosinophil# 0.07 X10^3/uL; Eosinophils% 0.6 % (0-5); Hematocrit 41.8 % (37-47); Hemoglobin 13.7 g/dL (12.0-15.0); Lymphocyte # 2.93 X10^3/ul (4.0); Lymphocyte % 23.5 % (19-41); Mean Corp Hgb Conc 32.8 g/dL (32-36); Mean Corpuscular Hgb 30.6 pg (27.0-32.0); Mean Corpuscular Volume 93.5 fL (81-99); Mean Platelet Vol. 10.3 fl (6.2-12.0); Monocyte# 0.65 X10^3/uL; Monocyte% 5.2 % (0-10); NRBC Flagged by Analyzer 0 % (0-5); Neutrophil # 8.75 X10^3/uL (2.7-7.7); Neutrophil % 70.2 % (47-70); Platelet Count 288 K/mm3 (150-450); RBC Distribution Width CV 13.2 % (11.6-14.6); Red Blood Count 4.47 M/mm3 (4.2-5.4); White Blood Count 12.5 K/mm3 (4.4-11.0)
[2019-06-05 21:02] VITALS: O2SAT 100
--- NOTE | 2019-06-05 21:16 | ED.VISSUMM ---
- ER Visit Summary Date of Service: 06/05/19 Chief Complaint: Chest pain History of Present Illness: The patient is a 48 F presenting with chest pain. She states her symptoms have been ongoing for several days but have been progressively worsening. She denies associated shortness of breath, nausea, diaphoresis. She is currently being worked up for headaches and saw neurology today. She did not mention the chest pain to them today. She states that she has a history of anxiety and the pain is making her more anxious. She is not a smoker. Denies other complaints. Physical Examination: Vitals are stable. Blood pressure 165/94. Patient is afebrile. Alert no acute distress. HEENT exam is unremarkable. Neck is supple. Lungs are clear and equal bilaterally. Heart is regular rate and rhythm. Abdomen is soft nontender nondistended. Extremities are unremarkable. Skin is warm and dry. No focal neurologic deficit. Remainder of exam is unremarkable. Emergency Department Course and Treatment: Patient was given aspirin, Ativan. EKG is sinus rhythm rate of 96 with nonspecific T wave changes. CBC shows white count 12.5. Chemistries unremarkable. Troponin is negative. On reevaluation patient is chest pain-free. Discussed with the hospitalist for observation. Disposition: Observation Impression: Chest pain This note was generated with [employer] dictation software. It may contain incorrect words, spelling, and punctuation that were not noted in review of the chart prior to signing ED Disposition - Plan for ED Patient: Referrals: Bear Meyer Chi, MD [Primary Care Provider] -
[2019-06-05 21:18] LABS: Anion Gap 7 (5-15); BUN 9 mg/dL (7-18); BUN/Creat Ratio 9.4 RATIO (10-20); Calcium,Total 9.9 mg/dL (8.5-10.1); Chloride 106 mmol/L (98-107); Creatinine, Serum 0.96 mg/dL (0.55-1.02); EST Glomerular Filtration Rate 67 mL/min (>60); Est Glom Filt Rate - Afr Amer 80 mL/min (>60); Estimated Creatinine Clearance 73.87 ml/min; Glucose 98 mg/dL (74-106); Potassium 3.7 mmol/L (3.5-5.1); Sodium Level 140 mmol/L (136-145)
[2019-06-05 22:23] VITALS: BP 148/115; PULSE 89; RESP 16; O2SAT 98
--- NOTE | 2019-06-05 23:12 | PCM.HP.STD ---
Problem List (1) Anginal equivalent Status: Acute (2) Hypothyroidism Status: Chronic (3) Hypertension Status: Chronic (4) GERD (gastroesophageal reflux disease) Status: Chronic (5) Anxiety Status: Chronic History of Present Illness Date of Admission: 06/05/19 Chief Complaint: Left armpit pain The patient is a 48 year old F with a significant history of dizziness; headache and left carotid artery disease who presents at emergency department with left armpit pain. She describes a pain as pressure and constant. The intensity of this pain is 7 out of 10. There are no aggravating or ameliorating factors to the pain. When she takes a deep breath she has palpitation. She denies any nausea; vomiting or diaphoresis. Past Medical History Past Medical History (Chronic Problems): Chronic Problems Hypothyroidism (Chronic) Hypertension (Chronic) GERD (gastroesophageal reflux disease) (Chronic) Anxiety (Chronic) Allergies milk Allergy (Verified 06/05/19 20:34) Other sumatriptan [From Imitrex] Allergy (Verified 06/05/19 20:34) TUNNEL VISION sumatriptan succinate [From Imitrex] Allergy (Verified 06/05/19 20:34) TUNNEL VISION Home Medications: Ambulatory Orders Medication Instructions Recorded Levothyroxine Sodium [Synthroid] 125 mcg PO DAILY 01/08/19 Naproxen [Naprosyn] 500 mg PO BID PRN #20 tab 01/08/19 Aspirin [Aspirin, Baby] 81 mg PO DAILY@0800 06/05/19 Baclofen [Lioresal] 10 mg PO DAILY 06/05/19 Clonazepam 1 mg PO BID 06/05/19 Magnesium Oxide 400 mg PO DAILY 06/05/19 Topiramate 25 mg PO DAILY 06/05/19 Surgical History: cholecystectomy, - - Rhinoplasty for deviated septum, bilateral tubal ligation: Knee surgery; carpal tunnel surgery Lives: Spouse/ Significant Other Smoking Status: Former smoker Alcohol: None - *Family History Maternal History Items: - - Epilepsy Paternal History Items: Heart Disease - His father had a permanent pacemaker Review of Systems Constitutional: Denies: Chills, Fever, Weight Change HEENT: Denies: Head Aches, Sinus Congestion, Sinus Drainage Cardiovascular: Denies: Edema, Light Headedness, Palpitations Respiratory: Denies: Shortness of Breath, Shortness of breath at rest, Sputum production Gastrointestinal: Denies: Abdominal Pain, Nausea, Vomiting Genitourinary: Denies: Dysuria Musculoskeletal: Reports: Arm Pain - Left armpit pain. Denies: Joint Pain, Joint Tenderness Skin: Denies: Rash, Wounds Neurological: Denies: Numbness, Tingling, Focal weakness Psychiatric: Reports: Anxiety. Denies: Depression, Homicidal Ideations, Suicidal Ideations Hematologic/ Lymphatic: Denies: Easy Bruising, Easy Bleeding VTE Information - Inpt Only VTE Present on Admission: No VTE Mechan Device Prophylaxis: SCD's VTE Pharm Prophylaxis ordered?: No Patient Problems: Active and Suspected Problems Anginal equivalent (Acute) - Physical Exam Vitals/I&O's: Vital Signs Temp Pulse Resp BP Pulse Ox 97.6 F L 89 16 148/115 H 98 06/05/19 20:32 06/05/19 22:23 06/05/19 22:23 06/05/19 22:23 06/05/19 22:23 Oxygen Delivery Method Room Air Weight: 75.296 kg Body Mass Index (BMI) 25.2 General: Alert, Oriented x3, Cooperative HEENT: Atraumatic, PERRLA, EOMI, Normocephalic Neck: Supple, No JVD, Negative Carotid Bruits Lungs: Clear to auscultation, Normal air movement Cardiovascular: Regular rate, No murmurs Abdomen: Bowel Sounds Present, Soft, Non Tender Extremities: No edema, Capillary Refill Less than 3 Seconds Skin: No rashes, No breakdown Musculoskeletal: No Tenderness to Palpation of Joints or Extremities Neurological: Cranial nerves II-XII grossly intact Psych/Mental Status: Normal Affect, Appropriate Laboratory Results 06/05/19 20:50: WBC 12.5 H, RBC 4.47, Hgb 13.7, Hct 41.8, MCV 93.5, MCH 30.6, MCHC 32.8, RDW Std Deviation 45.0 H, RDW Coeff of Dylon 13.2, Plt Count 288, MPV 10.3, Immature Gran % (Auto) 0.300, Neut % (Auto) 70.2 H, Lymph % (Auto) 23.5, Dewey % (Auto) 5.2, Eos % (Auto) 0.6, Baso % (Auto) 0.2, Absolute Neuts (auto) 8.8 H, Absolute Lymphs (auto) 2.93, Nucleated RBC % 0 12/19/19 20:50: Sodium 140, Potassium 3.7, Chloride 106, Carbon Dioxide 27.0, Anion Gap 7, BUN 9, Creatinine 0.96, Estim Creat Clear Calc 73.87, Est GFR (MDRD) Af Amer 80, Est GFR (MDRD) Non-Af 67, BUN/Creatinine Ratio 9.4 L, Glucose 98, Calcium 9.9, Troponin I < 0.015 Assessment/Plan All Active Problems Anginal equivalent (Acute) The patient is a 48 year old F with a significant history of dizziness; headache and left carotid artery disease who presents at the emergency department with left armpit pain consistent with anginal equivalent. Anginal equivalent Placed on a monitored bed at PCU CXR independently reviewed confirms no acute cardiopulmonary process. EKG independently reviewed confirms inferior and lateral ST depressions unchanged compared to EKG on 04 May 2019. ASA 81 mg p.o. daily Morphine as needed for pain Serial cardiac enzymes Stat EKG as needed for chest pain Treadmill stress test in the AM if the cardiac enzymes are negative Pretension: She reported that her PCP advised her to be tracking her blood pressure at home. She reported blood pressure of 147/97 at home. At emergency department her blood pressure was elevated with initial systolic blood pressure of more than 160. Start patient on amlodipine 5 mg daily. Trend blood pressures. Left carotid artery stenosis. Reportedly the patient has a 50% blockage of her left carotid artery stenosis and she follows up with Dr. Cintron at [place] Anxiety disorder: Klonopin continued Migraine: Topamax continued History of dizziness: Patient has seen ENT in the past. Patient is supposed to follow-up with PT. DVT prophylaxis SCD Code Visit OBSV E&M: 10208 Initial observation care L3
[2019-06-05 23:26] VITALS: BP 154/104; PULSE 81; RESP 16; O2SAT 97
--- NOTE | 2019-06-05 23:46 | EKG12_ITS ---
Test Reason : CP ADMIT Blood Pressure : / mmHG Vent. Rate : 064 BPM Atrial Rate : 064 BPM P-R Int : 222 ms QRS Dur : 106 ms QT Int : 412 ms P-R-T Axes : 034 027 028 degrees QTc Int : 425 ms Sinus rhythm with 1st degree A-V block Nonspecific T wave abnormality Abnormal ECG No previous ECGs available Confirmed by MEKHI VALENZUELA, JORGE LUIS ([id number]), editorial specialist ALYCIA MOSLEY ([id number]) on 06/13/2019 10:38:01 AM Referred By: DR PRETTY Confirmed By:JOSH GAMING MD
[2019-06-06 00:21] VITALS: BMI 24.9
[2019-06-06 00:30] VITALS: BP 137/91; BP 145/91; PULSE 71; RESP 18; TEMP 36.3; O2SAT 100
[2019-06-06 00:41] VITALS: BMI 24.9
[2019-06-06 00:46] VITALS: PULSE 75
[2019-06-06] MEDS: Morphine 2 MG/ML Syringe 1 MG IV ×3 (00:55→11:05)
[2019-06-06] MEDS: amLODIPine 5 MG Tablet PO ×2 (00:55→11:05)
[2019-06-06 03:00] VITALS: PULSE 69
[2019-06-06 06:20] VITALS: BP 110/76; PULSE 69; RESP 16; TEMP 36.6; O2SAT 98
[2019-06-06] MEDS: 0.9% Saline Lock 10 ML Syringe IV ×2 (06:23→11:05)
[2019-06-06] MEDS: Levothyroxine 125 MCG Tablet PO (06:24)
[2019-06-06] MEDS: Aspirin E.C. 81 MG Tablet PO (06:24)
[2019-06-06 06:55] VITALS: PULSE 72
--- NOTE | 2019-06-06 10:58 | STRESSREP_ITS ---
Stress Test Report Exercise myocardial perfusion stress test. 48-year-old lady with a history of chest pain. Stress protocol: Resting EKG demonstrates normal sinus rhythm with a rate of [address] changes noted resting blood pressure is 132/84 mmHg. Patient exercised according to regular Curt protocol for total duration of 8 minutes. The max imum heart rate attained was 162 bpm which was 93% of maximum predicted heart rate maximum workload was 10.1 metabolic equivalents. At rest nonspecific ST-T wave changes were noted with no meet the criteria for ischemia. During exercise less than [address] depression was noted which appeared to be suggestive but not diagnostic of ischemia no chest pain was noted slight shortness of breath was present. The resting blood pressure was 132/84 with a peak blood pressure 140/62 mmHg rate pressure product was 20,400. Myocardial perfusion protocol. 11.0 mCi of technetium 99m sestamibi was injected at rest. Patient exercised according to regular Curt protocol for 8 minutes and at peak exercise 33.0 mCi of technetium 99m sestamibi was injected stress images were obtained stress and rest images were reconstructed and compared in the short axis vertical long horizontal long axis. Gated images were also obtained Perfusion SPECT analysis: Review of the stress images demonstrate normal uptake of tracer noted in all areas of the myocardium the resting images similar demonstrate normal uptake of tracer noted in all areas of the myocardium. No areas of reversibility are noted suggest ischemia no previous infarct is noted. Gated SPECT analysis: The gated ejection fraction is noted to be 74%. Conclusion: Normal exercise stress test with nonspecific EKG changes noted at a high workload. Nuclear images demonstrate no evidence of ischemia. Preserved ejection fraction. Excellent functional capacity. Above is a low risk scan.
[2019-06-06 11:01] VITALS: BP 120/76; PULSE 84; RESP 16; TEMP 36.7; O2SAT 98
[2019-06-06] MEDS: Topiramate 25 MG Tablet PO (11:05)
[2019-06-06] MEDS: Magnesium Oxide 400 MG Tablet PO (11:05)
[2019-06-06] MEDS: Baclofen 10 MG Tablet PO (11:05)
[2019-06-06] MEDS: clonazePAM 1 MG Tablet PO (11:05)
--- NOTE | 2019-06-06 11:34 | DCINST_ITS ---
- Discharge Diagnoses Current Active Problems: Current Active and Chronic Problems Anginal equivalent (Acute) You will use the following diet at home:: No restrictions Your food should be the consistency of: Regular Your liquids should be the consistency of: Regular/Thin Discharge Activity: Return to Normal Activity Weight Bearing Status: Full weight bearing Allergies/Adverse Reactions: Allergies milk Allergy (Verified 06/05/19 20:34) Other sumatriptan [From Imitrex] Allergy (Verified 06/05/19 20:34) TUNNEL VISION sumatriptan succinate [From Imitrex] Allergy (Verified 06/05/19 20:34) TUNNEL VISION Medications to take at Discharge Levothyroxine Sodium [Synthroid] 125 mcg PO DAILY 01/08/19 Naproxen [Naprosyn] 500 mg PO BID PRN #20 tab 01/08/19 Aspirin [Aspirin, Baby] 81 mg PO DAILY@0800 06/05/19 Baclofen [Lioresal] 10 mg PO DAILY 06/05/19 Clonazepam 1 mg PO BID 06/05/19 Magnesium Oxide 400 mg PO DAILY 06/05/19 Topiramate 25 mg PO DAILY 06/05/19 Losartan Potassium 50 mg PO DAILY #30 tab 06/06/19 The following prescriptions were given: Losartan Potassium 50 mg PO DAILY #30 tab Transmission Status: Pending to [facility] Primary Care Physician: Bear Meyer Chi, MD [Primary Care Provider] - Please follow up with your Primary Care Physician in: in 3 weeks Test Results: Test results from this visit will be discussed in further detail at your follow- up appointment, if applicable.
--- NOTE | 2019-06-06 18:16 | PCM.DC.SUM ---
Discharge Date and Diagnosis Date of Admission: 06/05/19 Date of Discharge: 06/06/19 - Primary Discharge Diagnosis #1 musculoskeletal chest pain #2 essential hypertension #3 chronic migraine - Secondary Discharge Diagnosis Chronic Problems Hypothyroidism (Chronic) Hypertension (Chronic) GERD (gastroesophageal reflux disease) (Chronic) Anxiety (Chronic) Hospital Course and Treatment Operations: None Procedures: Nuclear stress test Summary of Care Provided: The patient is a 48 year old F who was seen in the emergency room at [facility] with a chief complaint of left upper chest pain, work-up in the emergency room included labs which showed a negative troponin, chest x-ray was unremarkable, and patient's pulse ox on room air was above 90%. EKG showed no evidence of ischemic changes. Patient was placed in observation status on PCU, serial enzymes were obtained and these remain negative. Patient underwent an exercise nuclear stress test on 06/06/2019 which was negative for reversible ischemia. On 06/06/2019, patient was seen and examined: On examination she appeared in good health and spirits. Vital signs as documented. Skin warm and dry and without overt rashes. Neck without JVD. Lungs clear. Heart exam notable for regular rhythm, normal sounds and absence of murmurs, rubs or gallops. Abdomen unremarkable and without evidence of organomegaly, masses, or abdominal aortic enlargement. Extremities nonedematous. Neuro: Cranial nerves II through XII are grossly intact, no focal motor deficits were noted, sensation to light touch and pinprick is intact. Psych: Patient is alert and oriented x3, she does not appear anxious or depressed On 06/06/2019, patient was seen and examined and felt to be in stable condition for discharge home - Physical Exam Vitals/I&O's: Vital Signs Temp Pulse Resp BP Pulse Ox 98.1 F 84 16 120/76 98 06/06/19 11:01 06/06/19 11:01 06/06/19 11:01 06/06/19 11:01 06/06/19 11:01 Oxygen Delivery Method Room Air Weight: 74.3 kg Body Mass Index (BMI) 24.9 Laboratory Results 06/05/19 20:50: WBC 12.5 H, RBC 4.47, Hgb 13.7, Hct 41.8, MCV 93.5, MCH 30.6, MCHC 32.8, RDW Std Deviation 45.0 H, RDW Coeff of Dylon 13.2, Plt Count 288, MPV 10.3, Immature Gran % (Auto) 0.300, Neut % (Auto) 70.2 H, Lymph % (Auto) 23.5, Claiborne % (Auto) 5.2, Eos % (Auto) 0.6, Baso % (Auto) 0.2, Absolute Neuts (auto) 8.8 H, Absolute Lymphs (auto) 2.93, Nucleated RBC % 0 06/05/19 20:50: Sodium 140, Potassium 3.7, Chloride 106, Carbon Dioxide 27.0, Anion Gap 7, BUN 9, Creatinine 0.96, Estim Creat Clear Calc 73.87, Est GFR (MDRD) Af Amer 80, Est GFR (MDRD) Non-Af 67, BUN/Creatinine Ratio 9.4 L, Glucose 98, Calcium 9.9, Troponin I < 0.015 06/06/19 00:00: Troponin I < 0.015 06/06/19 03:00: Troponin I < 0.015 Discharge Activity: Return to Normal Activity Weight Bearing Status: Full weight bearing Home Medications: Medications to take at Discharge Levothyroxine Sodium [Synthroid] 125 mcg PO DAILY 01/08/19 Aspirin [Aspirin, Baby] 81 mg PO DAILY@0800 06/05/19 Baclofen [Lioresal] 10 mg PO DAILY 06/05/19 Clonazepam 1 mg PO BID 06/05/19 Magnesium Oxide 400 mg PO DAILY 06/05/19 Topiramate 25 mg PO DAILY 06/05/19 Losartan Potassium 50 mg PO DAILY #30 tab 06/06/19 Naproxen [Naprosyn] 500 mg PO BID PRN PRN 06/06/19 Following Prescrptions Were Given to Patient: Losartan Potassium 50 mg PO DAILY #30 tab Transmission Status: Received by [facility] Primary Care Physician: Bear Meyer Chi, MD [Primary Care Provider] - Please follow up with your Primary Care Physician in: in 3 weeks Disposition: Home Minutes spent on discharge:: 30 Patient Condition:: Stable Medical Necessity - Tobacco Use Smoking Status: Former smoker Meaningful Use Info Meaningful Use Diagnoses (Choose all that apply): None applicable Code Visit OBSV E&M: 86282 Observation care discharge
== END 2019-06-06 11:35 | disposition home or self-care (01) ==
LOC: ED 20:51 → PCU 23:41
PROVIDERS: Admitting Provider Hospitalist; Emergency Provider Emergency Medicine; Family Provider Family Medicine Geriatric Medicine; PCP Family Medicine Geriatric Medicine; Visit Provider Internal Medicine
DX: R07.89 Other chest pain (principal); I10 Essential (primary) hypertension; G43.909 Migraine, unspecified, not intractable, without status migrainosus; K21.9 Gastro-esophageal reflux disease without esophagitis; E03.9 Hypothyroidism, unspecified; F41.9 Anxiety disorder, unspecified; Z79.82 Long term (current) use of aspirin; Z79.899 Other long term (current) drug therapy; Z87.891 Personal history of nicotine dependence; I65.22 Occlusion and stenosis of left carotid artery
CPT/HCPCS: 36415; 71045; 78452; 80048; 84484; 85025; 93005; 93017; 96374; 96375; 99218; 99285; A9500; A4216; G0378

== ENCOUNTER → 2019-06-16 11:57 | Outpatient (CLI) | payer MEDICAID, SELFPAY ==
[2019-06-06 00:21] VITALS: BMI 24.9
[2019-06-16 13:23] LABS: Thyroid Stim Hormone (TSH) 6.54 uIU/mL (0.358-3.74)
== END ==
PROVIDERS: Family Provider Family Medicine Geriatric Medicine; PCP Family Medicine Geriatric Medicine; Visit Provider Family Medicine Geriatric Medicine
DX: E03.9 Hypothyroidism, unspecified (principal)
CPT/HCPCS: 36415; 84443

== ENCOUNTER 2019-06-27 09:16 | Emergency (ER) | payer MEDICAID, SELFPAY ==
[2019-06-27 09:16] VITALS: BP 154/95; PULSE 73; RESP 17; TEMP 36.6; O2SAT 100; BMI 25.2
--- NOTE | 2019-06-27 09:46 | RAD_ITS ---
STUDY: X-RAY CHEST REASON FOR EXAM: Female, 49 years old. Chest wall pain, recently diagnosed with costochondritis TECHNIQUE: Single AP portable view of the chest. COMPARISON: Comparison is made with prior examination dated June 05, 2019. FINDINGS: The lungs are clear and expanded. There is no demonstrated pleural abnormality. Normal size heart. Normal mediastinum and sweta. Normal visualized pulmonary arteries. Normal visualized aortic arch and descending thoracic aorta. Normal visualized thoracic spine. Normal visualized ribs, clavicles, and shoulders. There is no demonstrated abnormality of the visualized soft tissue structures of the upper abdomen. RAD/Chest 1 View (Portable) IMPRESSION: Normal x-ray examination of the chest. Electronically Signed: Ivan Durand, at 10:39 EST , Service support ,
--- NOTE | 2019-06-27 09:46 | EKG12_ITS ---
Test Reason : CP Blood Pressure : / mmHG Vent. Rate : 057 BPM Atrial Rate : 057 BPM P-R Int : 176 ms QRS Dur : 106 ms QT Int : 458 ms P-R-T Axes : 014 048 094 degrees QTc Int : 445 ms Sinus bradycardia Nonspecific T wave abnormality Abnormal ECG Confirmed by DIDI VALENZUELA, IBRAHIMA ([id number]), news assignment editor LILIANA FLAHERTY ([id number]) on 06/30/2019 10:20:43 AM Referred By: ANU Confirmed By:IBRAHIMA TOLBERT MD
[2019-06-27] MEDS: Ketorolac 60 MG/2 ML Vial IM (10:23)
[2019-06-27] MEDS: Orphenadrine 60 MG/2 ML Ampul IM (10:23)
--- NOTE | 2019-06-27 10:40 | ED.VISSUMM ---
- ER Visit Summary Date of Service: 06/27/19 Chief Complaint: Chest pain History of Present Illness: The patient is a [address] Meyer. She reports that she has chest pain that began 2 weeks ago. Is a continuous sharp, aching pain. It is 10 out of 10 at worst an 8 out of 10 currently. Is increased by turning her torso to the left or laying on her left side. Is relieved by naproxen and a heating pad. She has had nausea with this. No vomiting, shortness of breath, or diaphoresis. This is unchanged by exertion or deep breaths. Patient reports that she was admitted for this on June 05. She had a negative stress test. She was. She was also placed on Protonix and Carafate at that time. She was referred to a parquetry layer. Physical Examination: Vitals: Stable. Afebrile. General: Well-nourished and well-developed. Head: Normocephalic atraumatic. Neck: Supple, no lymphadenopathy. No JVD. Nontender. Cardiovascular: Regular rate and rhythm. No murmurs. Respiratory: No respiratory distress. Clear to auscultation bilaterally. Moderate tenderness palpation to the costochondral margin on the left that does reproduce her pain. Abdominal: Soft, nontender, nondistended, normal bowel sounds. No guarding, rebound, or peritoneal signs. Back: Nontender. Extremities: Nontender, no edema. Skin: Normal color, no rash. Neurologic: Alert and oriented ?3. Cranial nerves II through XII are intact. Normal strength and sensation. Psych: Normal affect. Test Results: EKG is sinus bradycardia at [address] changes. She does have a T wave inversion in lead aVL. Last month of this inversion was in lead V6. These are the only changes since the EKG last month. Chest x-ray shows no acute disease. Emergency Department Course and Treatment: Discussed the patient that I cannot give her another dose of Kenalog. She reports that Dr. Meyer also gave her a dose of Toradol and Norflex IM and that this seemed to help as well. She was given this here. Treatment Plan: Patient will be discharged instructions use Tylenol for pain. Her heart score is 2. Her pain is been constant for the past 2 weeks and she is already had a negative work-up. I feel that she is a suitable candidate for outpatient evaluation. She will be discharged with instructions to follow-up with Dr. Meyer in 2 days if not improving. Return to the emergency department for any worsening symptoms. Disposition: To home in improved and stable condition. Impression: 1. Musculoskeletal chest pain. This note was generated with [employer] dictation software. It may contain incorrect words, spelling, and punctuation that were not noted in review of the chart prior to signing ED Disposition - Plan for ED Patient: Instructions: CHEST WALL PAIN, Costochondritis Referrals: Bear Meyer Chi, MD [Primary Care Provider] - 1-2 Days if not improving
== END 2019-06-27 11:08 | disposition home or self-care (01) ==
LOC: ED 09:32
PROVIDERS: Emergency Provider Emergency Medicine; Family Provider Family Medicine Geriatric Medicine; PCP Family Medicine Geriatric Medicine
DX: R07.89 Other chest pain (principal); R11.0 Nausea; R00.1 Bradycardia, unspecified; E03.9 Hypothyroidism, unspecified; I10 Essential (primary) hypertension; K21.9 Gastro-esophageal reflux disease without esophagitis; F41.9 Anxiety disorder, unspecified; Z79.82 Long term (current) use of aspirin; Z79.899 Other long term (current) drug therapy
CPT/HCPCS: 71045; 93005; 96372; 99282

== ENCOUNTER → 2019-07-04 11:04 | Outpatient (CLI) | payer MEDICAID, SELFPAY ==
[2019-06-27 09:16] VITALS: BMI 25.2
[2019-07-04 12:56] LABS: Absolute Lymphocyte Count 2.53 X10^3/uL (0.83-4.51); Absolute Neutrophil Count 7.6 X10^3/uL (2.0-7.7); Basophil# 0.02 X10^3/uL; Basophil% 0.2 % (0-1); Eosinophil# 0.02 X10^3/uL; Eosinophils% 0.2 % (0-5); Hematocrit 37.1 % (37-47); Hemoglobin 11.8 g/dL (12.0-15.0); Lymphocyte # 2.53 X10^3/ul (4.0); Lymphocyte % 23.6 % (19-41); Mean Corp Hgb Conc 31.8 g/dL (32-36); Mean Corpuscular Hgb 30.9 pg (27.0-32.0); Mean Corpuscular Volume 97.1 fL (81-99); Mean Platelet Vol. 11.4 fl (6.2-12.0); Monocyte# 0.55 X10^3/uL; Monocyte% 5.1 % (0-10); NRBC Flagged by Analyzer 0 % (0-5); Neutrophil # 7.56 X10^3/uL (2.7-7.7); Neutrophil % 70.5 % (47-70); Platelet Count 242 K/mm3 (150-450); RBC Distribution Width CV 13.9 % (11.6-14.6); RBC Distribution Width SD 49.2 fl (35.1-43.9); Red Blood Count 3.82 M/mm3 (4.2-5.4); White Blood Count 10.7 K/mm3 (4.4-11.0)
[2019-07-04 13:55] LABS: ALB/GLOB Ratio 0.9 RATIO (0.9-2.4); AST(SGOT) 8 U/L (15-37); Alanine Aminotransfer ALT/SGPT 18 U/L (13-56); Albumin, Serum 3.3 g/dL (3.2-5.0); Alkaline Phosphatase 56 U/L (45-117); Anion Gap 6 (5-15); BUN 14 mg/dL (7-18); BUN/Creat Ratio 14.1 RATIO (10-20); Chloride 107 mmol/L (98-107); Creatinine, Serum 0.99 mg/dL (0.55-1.02); EST Glomerular Filtration Rate 64 mL/min (>60); Est Glom Filt Rate - Afr Amer 77 mL/min (>60); Globulin 3.8 g/dL (2.2-4.2); Glucose 89 mg/dL (74-106); Potassium 3.9 mmol/L (3.5-5.1); Protein, Total 7.1 g/dL (6.4-8.2); Sodium Level 138 mmol/L (136-145); Thyroid Stim Hormone (TSH) 3.28 uIU/mL (0.358-3.74)
== END ==
PROVIDERS: PCP Family Medicine Geriatric Medicine; Visit Provider Family Medicine Geriatric Medicine
DX: I10 Essential (primary) hypertension (principal)
CPT/HCPCS: 36415; 80053; 84443; 85025

== ENCOUNTER 2019-07-31 04:52 | Emergency (ER) | payer MEDICAID, SELFPAY ==
[2019-07-31 04:54] VITALS: BP 178/91; PULSE 69; RESP 18; TEMP 36.4; O2SAT 95; BMI 24.9
--- NOTE | 2019-07-31 05:16 | ED.VIS.GEN ---
History of Present Illness Chief Complaint: Abd Pain Informant: Patient Narrative: Stated she has been having persistent vaginal bleeding for the last 2 weeks. She started her period and continued for second week. Normally she has a period for 1 week. She is having moderate bleeding per patient. She denies any lightheadedness or anemia symptoms. She has been changing her pad multiple times throughout the day. Occasional clots. This is the same amount of bleeding when she has that her. But has lasted for an extra week. This concerned her. She denies . She denies bleeding disorder. Patient does not have a history of anemia. The patient sees an STATISTICAL TECHNICIAN in [place] for chronic pelvic floor pain. She gets Marcaine injections every 7 weeks. This is on the right side of her pelvic floor. She is having right-sided pelvic floor pain that is a dull pain with occasional sharp component to it. She has pain where the right ovary is located. She has had ovarian cyst in the past. She is never had an ovarian torsion. History of tubal ligation. Current severity is mild. No home treatment for the pain. Has not set up an appointment with her STATISTICAL TECHNICIAN yet. - Past Medical History (1) Anginal equivalent Status: Acute (2) Anxiety Status: Chronic (3) GERD (gastroesophageal reflux disease) Status: Chronic (4) Hypertension Status: Chronic (5) Hypothyroidism Status: Chronic Past Medical History - Allergies and Home Meds Allergies/Adverse Reactions: Allergies milk Allergy (Verified 07/31/19 04:58) Other sumatriptan [From Imitrex] Allergy (Verified 07/31/19 04:58) TUNNEL VISION sumatriptan succinate [From Imitrex] Allergy (Verified 07/31/19 04:58) TUNNEL VISION Primary Care Physician: True Livingston MD [STAFF PHYSICIAN] - Bear Meyer Chi, MD [Primary Care Provider] - Prior records reviewed: Yes Past Medical History: - - See problem list Surgical History: cholecystectomy, - - Rhinoplasty for deviated septum, bilateral tubal ligation: Knee surgery; carpal tunnel surgery Smoking Status: Never smoker Alcohol: None Drugs: None - Family History Maternal Family History: Reports: - - Epilepsy Paternal Family History: Reports: Heart Disease - His father had a permanent pacemaker Review of Systems General: Denies: Chills, Fever, Sweats Eyes: Denies: Visual changes - bilaterally, Diplopia ENT: Denies: Rhinorrhea, Sore throat Cardiovascular: Denies: Chest pain, Palpitations Respiratory: Denies: Dyspnea, Cough, Dyspnea on exertion Gastrointestinal: Reports: Abdominal pain. Denies: Nausea, Vomiting, Diarrhea, Melena, Hematochezia Genitourinary: Reports: - - See HPI. Denies: Dysuria, Hematuria, Frequency Musculoskeletal: Denies: Back pain, Extremity Pain Skin: Denies: Rash, Wounds Neurological: Denies: Headache, Weakness, Numbness Physical Exam Vital Signs/Narrative: Vital Signs Temp Pulse Resp BP Pulse Ox 07/31/19 04:54 97.5 F L 69 18 178/91 H 95 General: Well nourished, Well developed, No Acute Distress Head: Normocephalic, Atraumatic Eyes: Perrl, EOMI ENT: Moist mucous membranes, No rhinorrhea Neck: Supple, Nontender Cardiovascular: Regular rate, Regular rhythm, No murmurs Respiratory: No distress, CTA bilaterally, Chest nontender Abdomen: Soft, Nondistended, Normal bowel sounds, Tender - Very mild pain over the right ovary deep in the pelvic region.. Negative for: Guarding, Rebound tenderness : - - Pelvic exam shows a mild amount of bleeding from a closed cervical office. Mild tenderness in the right adnexa. No masses. Otherwise normal exam. No cervical motion tenderness. No discharge other than blood Back: Nontender, Normal Inspection Extremities: Nontender, No edema Skin: Normal color, No rash Neurological: Alert, Oriented x3, Cranial nerves II-XII grossly intact, Normal Strength, Normal Sensation Psychological: Normal affect, Normal Mood Diagnostic/Tx/Re-eval - Medical Decision Making Patient given IV Toradol. Lab work obtained. Lab work shows no significant abnormalities. CBC shows normal hemoglobin. Regnancy negative. Urinalysis shows blood only. Due to the fact that the patient is having only mild bleeding with a normal hemoglobin I do not feel she is having a serious cause of bleeding. She had a negative ultrasound per patient just 6 months ago therefore have a low suspicion for endometrial cancer. She is going to follow-up with STATISTICAL TECHNICIAN. She has 1 in [place] but would like referral locally. Given a referral to Dr. Livingston. Patient would like me to give her Provera to try to stop the bleeding. Given a prescription for 10 mg once a day for a week. She will make a referral to [facility]OWS SERV[facility] SUPPORT TECHNICIAN. I have a low suspicion for ovarian torsion. This may be her pelvic floor pain on the right that she has had in the past. She is requesting a muscle relaxant for that. Given a prescription for Flexeril. We discussed doing an ultrasound in the emergency department. She may have an ovarian cyst. She would like to hold off on this and follow-up as an outpatient ED Disposition - Plan for ED Patient: Disposition: Home or Assisted Living Diagnosis: Dysfunctional uterine bleeding, Pelvic pain Instructions: Menorrhagia, PELVIC PAIN, Unknown Cause Prescriptions: cycloBENZAPRine HCl [Flexeril] 10 mg PO TID PRN #20 tab PRN Reason: Muscle Spasm Prescription Printed Medroxyprogesterone Acetate [Provera] 10 mg PO DAILY #7 tab Prescription Printed Referrals: Bear Meeyr Chi, MD [Primary Care Provider] - True Livingston MD [STAFF PHYSICIAN] -
[2019-07-31 05:44] LABS: Bacteria 0 SEEN /hpf (None Seen); Mucous, Urine 0 SEEN /hpf (<or=2+); White Blood Cells 0 SEEN /hpf (0-5)
[2019-07-31] MEDS: Ketorolac 15 MG/ML Vial IV (05:46)
[2019-07-31 05:51] LABS: Color, Urine Yellow (Yellow); Glucose, Dipstick Normal (Normal); Ketone-Dipstick Negative (Negative); Leukocyte Esterase-Dipstick Negative /ul (Negative); Nitrite-Dipstick Negative (Negative); Occult Blood-Urine 250 /ul (Negative); Protein-Dipstick Negative (Negative); Specific Gravity, Urine 1.015 (1.002-1.030); Urine Bilirubin Dipstick Negative (Negative); Urine Clarity Sl. Cloudy (Clear); Urine Urobilinogen Normal (Normal)
[2019-07-31 05:56] LABS: Absolute Lymphocyte Count 2.65 X10^3/uL (0.83-4.51); Absolute Neutrophil Count 5.1 X10^3/uL (2.0-7.7); Basophil# 0.02 X10^3/uL; Basophil% 0.2 % (0-1); Eosinophil# 0.04 X10^3/uL; Eosinophils% 0.5 % (0-5); Hematocrit 43.2 % (37-47); Hemoglobin 14.1 g/dL (12.0-15.0); Lymphocyte # 2.65 X10^3/ul (4.0); Lymphocyte % 31.5 % (19-41); Mean Corp Hgb Conc 32.6 g/dL (32-36); Mean Corpuscular Hgb 32.4 pg (27.0-32.0); Mean Corpuscular Volume 99.3 fL (81-99); Mean Platelet Vol. 10.6 fl (6.2-12.0); Monocyte# 0.57 X10^3/uL; Monocyte% 6.8 % (0-10); NRBC Flagged by Analyzer 0 % (0-5); Neutrophil % 60.6 % (47-70); Platelet Count 213 K/mm3 (150-450); RBC Distribution Width CV 13.8 % (11.6-14.6); RBC Distribution Width SD 50.4 fl (35.1-43.9); Red Blood Count 4.35 M/mm3 (4.2-5.4); White Blood Count 8.4 K/mm3 (4.4-11.0)
[2019-07-31 05:57] LABS: Red Blood Cells-Urine 25-50 SEEN /hpf (0-5); Squamous Epithelial Cells - UA 5-10 SEEN /hpf (5-10)
[2019-07-31 06:01] LABS: Partial Thromboplast Time 30.2 Seconds (24.1-36.2)
[2019-07-31 06:05] LABS: Internal QC Validated? YES +Cl - CLEAR BKGD; Pregnancy, Serum, hCG Quali. NEGATIVE Negative
== END 2019-07-31 06:48 | disposition home or self-care (01) ==
PROVIDERS: Emergency Provider Emergency Medicine; PCP Family Medicine Geriatric Medicine
DX: N93.8 Other specified abnormal uterine and vaginal bleeding (principal); R10.2 Pelvic and perineal pain; I10 Essential (primary) hypertension; E03.9 Hypothyroidism, unspecified; K21.9 Gastro-esophageal reflux disease without esophagitis; F41.9 Anxiety disorder, unspecified; Z79.899 Other long term (current) drug therapy; Z98.51 Tubal ligation status
CPT/HCPCS: 81001; 84703; 85025; 85610; 85730; 96374; 99285; A4216

== ENCOUNTER → 2019-08-01 16:03 | Outpatient (CLI) | payer MEDICAID, SELFPAY ==
[2019-07-31 04:54] VITALS: BMI 24.9
--- NOTE | 2019-08-01 16:08 | US_ITS ---
STUDY: ULTRASOUND OF THE FEMALE PELVIS - COMPLETE REASON FOR EXAM: Female, 49 years old. PROLONG VAG BLEEDING LMP: 07/16/2019 TECHNIQUE: Transabdominal TECHNICAL QUALITY: Adequate. COMPARISON: July 31, 2015 CT scan pelvis. FINDINGS: The uterus is anteverted and is in a midline position. The uterus measures 9.1 x 5.5 x 4.7 the cervix is not well demonstrated on this study however image #50 shows a possible lower uterine segment fibroid and/or mass extending towards the cervix. This may measure 2.3 x 3 cm. This is also seen on image #47. The endometrium measures 9 mm in thickness, and is hyperechoic. Endometrium is not fully visualized on this study. I.U.D. - The patient does not have an I.U.D. The right ovary is not visualized. The left ovary is visualized. The left ovary measures 4.3 x 3.5 x 3.3 cm. There is a well-circumscribed left ovarian cyst with minimal internal echoes measuring 2.8 x 2.9 x 2.5 cm. This is smaller than the prior cyst seen in the left ovary measuring 4.6 x 4.1 cm. Allowing for technique the ultrasound transducer placed over the left ovarian cyst shows possible peripheral vascularity allowing for the technique. There is no visualized left adnexal mass or complex lesion. There is normal arterial and normal venous vascularity. There is no fluid in the cul-de-sac. The bladder appears grossly unremarkable.. Bladder find the time of the study is 206.5 mL. Polycystic ovary disease: No. US/Pelvic (Non ) IMPRESSION: Limited transabdominal study showing a within normal limits endometrial thickness depending on the patient''s menopausal status. In a postmenopausal patient 9 mm would be considered thickened. Well-circumscribed left ovarian cyst with few internal echoes smaller than prior studies showing possible peripheral vascularity. Possible Partially visualized, low uterine segment cervical mass possible fibroid or other mass that may measure up to 2.3 x 3 cm allowing for technique. This is a transabdominal study. Recommend follow-up transvaginal ultrasound or consideration for follow-up MRI of the pelvis. Electronically Signed: Mica Hidalgo MD at 9:05 EST Tel , Service support ,
== END ==
PROVIDERS: PCP Family Medicine Geriatric Medicine; Referring Provider Family Medicine Geriatric Medicine; Visit Provider Family Medicine Geriatric Medicine
DX: R10.2 Pelvic and perineal pain (principal); N89.8 Other specified noninflammatory disorders of vagina
CPT/HCPCS: 76856

== ENCOUNTER 2019-08-05 19:30 | Emergency (ER) | payer MEDICAID, SELFPAY ==
[2019-08-05 19:31] VITALS: BP 161/98; PULSE 115; RESP 20; TEMP 36.4; O2SAT 100; BMI 25.4
--- NOTE | 2019-08-05 20:06 | ED.RN ---
PT STATES SHE'S FEELING BETTER, PT STATES SHE WILL COME BACK IF SYMPTOMS GET GETTER.
[2019-08-05 20:08] VITALS: BP 148/96
== END 2019-08-05 20:05 | disposition left against medical advice (07) ==
LOC: ED 20:50
PROVIDERS: Emergency Provider Emergency Medicine; PCP Family Medicine Geriatric Medicine
DX: T78.40XA Allergy, unspecified, initial encounter (principal); Z53.21 Procedure and treatment not carried out due to patient leaving prior to being seen by health care provider

== ENCOUNTER 2019-08-10 04:28 | Emergency (ER) | payer MEDICAID, SELFPAY ==
[2019-08-10 04:28] VITALS: BP 149/90; PULSE 79; RESP 15; TEMP 36.8; O2SAT 100; BMI 25.7
--- NOTE | 2019-08-10 05:06 | ED.VIS.GEN ---
History of Present Illness Chief Complaint: Other, Pain/Inj Narrative: Patient is a 49-year-old female who presents with pelvic pain. She does have a history of chronic pelvic floor pain. However over the last couple of weeks she had developed heavy vaginal bleeding. She was seen in the emergency department. She was started on Provera. She also requested Flexeril as this had helped her pain in the past. She followed up with her primary care physician and had an outpatient transabdominal pelvic ultrasound which showed an ovarian cyst as well as a uterine mass possibly a fibroid. Patient notes that her bleeding has significantly improved and currently she only has light bleeding. However her pain is different than her chronic pain. She dates her chronic pain is more constant steady pain and now she has intermittent sharp pains that her pain is not well controlled. She is already scheduled for an MRI of the pelvis for further evaluation and has follow-up scheduled with gynecology next week. Past Medical History - Allergies and Home Meds Allergies/Adverse Reactions: Allergies milk Allergy (Verified 08/10/19 04:34) Other sumatriptan [From Imitrex] Allergy (Verified 08/10/19 04:34) TUNNEL VISION sumatriptan succinate [From Imitrex] Allergy (Verified 08/10/19 04:34) TUNNEL VISION Primary Care Physician: Bear Meyer Chi, MD [Primary Care Provider] - Past Medical History: - - Hypertension Surgical History: cholecystectomy, - - Rhinoplasty for deviated septum, bilateral tubal ligation: Knee surgery; carpal tunnel surgery Smoking Status: Never smoker - Family History Maternal Family History: Reports: - - Epilepsy Paternal Family History: Reports: Heart Disease - His father had a permanent pacemaker Review of Systems All systems negative except as indicated General: Denies: Fever Eyes: Denies: Visual changes - bilaterally ENT: Denies: Bilateral ear pain Cardiovascular: Denies: Chest pain Respiratory: Denies: Dyspnea Gastrointestinal: Reports: Nausea. Denies: Abdominal pain, Vomiting, Diarrhea Genitourinary: Reports: - - Pelvic pain and vaginal bleeding Skin: Denies: Rash Neurological: Denies: Headache Physical Exam Vital Signs/Narrative: Vital Signs Temp Pulse Resp BP Pulse Ox 08/10/19 04:28 98.2 F 79 15 149/90 H 100 Inital Vital Signs reviewed: Yes General: Well nourished Head: Normocephalic Eyes: EOMI ENT: Moist mucous membranes Neck: Supple Cardiovascular: Regular rate, Regular rhythm Respiratory: No distress, CTA bilaterally Abdomen: Soft, Nontender, Nondistended Skin: Normal color Neurological: Alert Psychological: Normal affect Diagnostic/Tx/Re-eval - Medical Decision Making Patient already has further outpatient imaging and specialty follow-up scheduled. She is just here regarding pain. She does not appear to be in any distress and is resting comfortably. I do not believe this is an acute surgical pathology such as ovarian torsion. She was given [place] here for pain and a prescription for the same. ED Disposition - Plan for ED Patient: Disposition: Home or Assisted Living Diagnosis: Pelvic pain Instructions: PELVIC PAIN, Unknown Cause Prescriptions: Hydrocodone Bitart/Apap 5-325 [[place] 5MG-325MG] 1 tab PO Q6H PRN PRN 3 Days #10 tab PRN Reason: Pain Prescription Printed Referrals: Bear Meyer Chi, MD [Primary Care Provider] -
[2019-08-10] MEDS: HYDROcodone Bitartrate/Apap 5/325 Tablet PO (05:23)
[2019-08-10] MEDS: Ondansetron ODT 4 MG Tablet PO (05:24)
== END 2019-08-10 05:26 | disposition home or self-care (01) ==
PROVIDERS: Emergency Provider Emergency Medicine; PCP Family Medicine Geriatric Medicine
DX: R10.2 Pelvic and perineal pain (principal); N83.209 Unspecified ovarian cyst, unspecified side; G89.29 Other chronic pain; N93.9 Abnormal uterine and vaginal bleeding, unspecified; I10 Essential (primary) hypertension; R11.0 Nausea; Z90.49 Acquired absence of other specified parts of digestive tract; Z79.899 Other long term (current) drug therapy
CPT/HCPCS: 99283

== ENCOUNTER 2019-08-13 15:00 | Outpatient (RCR) | payer MEDICAID, SELFPAY ==
--- NOTE | 2019-07-09 16:02 | HP.PTEVAL ---
Patient's Visit Information HELEN PETTIT is a 49 year old F referred to Physical Therapy by Alexsander Rausch MD with a diagnosis of vertigo, cervicalgia. Date of Evaluation: 07/09/19 Physical Therapist: Tomas Jones DPT, OCS, CSCS - Visit Plan Frequency: 1-2x /Week Duration: 4-6 Weeks Plan: 1-2x/week for 4-8 weeks for progression of adaptation exercises and cervical treatment as needed. Postural correction with retraction - Subjective Findings: Had strep throat for 3 weeks in May. Had PAINTING in back of neck(migraines) and had botox to get rid of them. Had dizzy spells and hard time getting balance. Saw ENT and got magnesium from Dr. Connell. Been dizzy for a good 2-3 months. Has had ocular migraines since 2014. Saw Sh[facility]om for migraines and dizzyness. Last dizzyness was gettign out of bed and lasts a couple minutes. Not lying in bed but yes looking up and bending over. Not much dizzyness in between episodes. Has HTN. Balance is unknown. No falls recently. Sleeps not well but has insomnia and is on ambien. 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 Enjoys painting and this is not causing a problem. Basic aDLs are OK but wobbles getting dressed. Showers OK. Neck pain now and then daily. Central in neck. - Pain neck pain Pain Intensity (Out of 10): 0 Pain Intensity Range: 0, 5 - Objective Walks normal and steps normal. Cervical AROM WFL without pain except retration slightly limited adn stiff centrally. UE AROM WFL, strength 4/5 without myotomal problems, reflexes 2/3 bi and tri and sensation WNL to gross light touch. - c/s compression and only slight tenderness to PA pressure lower cervical spine. Head is forward in posture. - B hallpike augustin, - roll test. Oculomotor: no nystagmus with gaze or head shake. - skew eye deviation adn ocular tilt. Normal convergence. 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 Pursuit and saccades are otherwise normal and asymptomatic. _ head thrust. VOR is symptomatic:4/10 horizontal VOR after 30 seconds for 30 seconds. - symptoms with vertical VOR. - MSQ today no obvious symptoms with these positions. - Balance Scores Functional Gait Assessment Score: 30 % Disability: 0 CATSIB Score (Max score 120 seconds): 92 - Goals Goal 1:: abolish vertigo with head movements and sitting up Goal Time Frame: 4-6 Weeks Goal 2:: Neck pain 90% better Goal Time Frame: 4-6 Weeks Goal 3:: DHI less than 2/10 score. 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 vestibualr hypofunction creating vertigo adn neck pain (postural) Rehabilitation Potential: Fair - Anticipated Interventions Patient/Client Instruction: Educate patient on: Condition, Plan of Care For the Purpose of:: To decrease pain, To increase tolerance to activity/condition/position Therapeutic Exercise to Include: Strength training, Passive ROM, Active ROM Comment: adaptation exercises For the Purpose of:: To increase tolerance to activity/condition/position Manual Therapy Techniques to Include: Mobilization, Soft tissue mobilization For the Purpose of:: To increase tolerance to activity/condition/position Thank you for the opportunity to evaluate your patient. For Medicare and Medicare HMO plans, please review the plan of care and approve it. It will need to be FAXED BACK to us at [phone] for Medicare purposes. For Medicare only, by signing this I certify the plan of care. Please let me know if there are questions or concerns regarding this plan of care. Physician Signature: Date:
--- NOTE | 2019-08-13 15:12 | HP.PTDCSUM ---
HP - PT D/C Summary It has been my pleasure to treat HELEN PETTIT under orders from Alexsander Rausch MD, for the diagnosis of vertigo, cervicalgia for a total of 3 visit(s). Discharge Date: 08/13/19 Please see the following information for a summary of their discharge status. - Subjective Subjective: She has been busy with a heart attack in the family. Also found a mass on US and will have an MRI tomorrow on abdomen and may need hysterectomy. Not much dizzyness lately. A spell here and there with fatigue lasting 15 seconds of unsteadiness but not spinning. No falls. Activities are normal. Neck is doing OK after a chiropractic visit. No pain in a while.(weeks) - Pain neck pain Pain Intensity (Out of 10): 0 - Overall Improvement % Improvement: 90 - Objective Objective/Function: VOR walking easily, walking is good as far as balance goes. No dizzyness with VOR or head nods adn turns. OVERALL DOING VERY WELL WITHOUT NECK SYMPTOMS OR DIZZYNESS LATELY. - Goals Goal 1:: abolish vertigo with head movements and sitting up Goal Progress: Goal Met Goal 2:: Neck pain 90% better Goal Progress: Goal Met Goal 3:: DHI less than 2/10 score. Goal Progress: Goal Met Goal 4:: I approp HEP Goal Progress: Goal Met - Plan Plan: D/C - D/C Information If there are questions or concerns regarding this patient's physical therapy, please feel free to call me at [phone]. Thank you for the referral of this patient. Sincerely, Tomas Jones, DPT, OCS, CSCS
== END 2019-08-13 19:00 | disposition home or self-care (01) ==
LOC: PT 15:00
PROVIDERS: Family Provider Family Medicine Geriatric Medicine; PCP Family Medicine Geriatric Medicine; Referring Provider Psychiatry & Neurology Neurology; Visit Provider Psychiatry & Neurology Neurology
DX: H81.392 Other peripheral vertigo, left ear (principal); M54.2 Cervicalgia
CPT/HCPCS: 97110; 97162; 97164; 97530

== ENCOUNTER → 2019-08-14 13:15 | Outpatient (CLI) | payer MEDICAID, SELFPAY ==
[2019-08-05 19:31] VITALS: BMI 25.4
[2019-08-10 04:28] VITALS: BMI 25.7
--- NOTE | 2019-08-14 13:35 | MRI_ITS ---
HISTORY: f/u US, abnormal bleeding, PELVIC MASS ADDITIONAL HISTORY: None provided. COMPARISON: Ultrasound 08/01/2019. MRI pelvis 01/04/2017 TECHNIQUE: Multiplanar, multisequence MRI of the pelvis was performed without and with 15 mL Dotarem intravenously. FINDINGS: BLADDER: Predominately decompressed and grossly unremarkable. UTERUS: Measures 7.3 x 4.4 x 5.1 cm. Endometrium appears thin measuring 3 mm. Junctional zone is poorly defined but not definitely thickened. No distinct uterine mass. There is some fullness about the endocervical canal which is predominantly hyperintense on T2-weighted imaging and mildly hyperintense on T1-weighted imaging this measures approximately 2.1 x 1.6 cm on series 3 image 10, previously 1.6 x 2.2 cm on series 9 image 24. OVARIES: 3.6 x 2.5 cm left ovarian cyst, previously measuring 4.5 x 4.3 cm on the prior MRI. Unremarkable right ovary. IMAGED GI TRACT: Unremarkable as imaged. ABDOMINAL WALL: Unremarkable. LYMPH NODES: No pathologic appearing adenopathy. FREE FLUID: Trace. SKELETON AND SOFT TISSUES: No acute skeletal findings. MRI/Pelvis W/WO Contrast IMPRESSION: 1. Heterogeneous fullness in the region of the endocervical canal appears minimally changed compared to the previous MRI from 2017. This could be related to cervical hyperplasia but is nonspecific in appearance. Given lack of change, this is favored to be a benign process. Correlation with clinical history, physical examination and Pap smear results recommended. 2. Left ovarian cyst, slightly smaller in size compared to the previous study. at 2312 Reported and signed by: Dee Dee Gold MD [facility] DR DEE DEE [facility] Electronically Signed: Dee Dee Gold MD at 23:12 EST Tel , Service support ,
== END ==
PROVIDERS: PCP Family Medicine Geriatric Medicine; Referring Provider Family Medicine Geriatric Medicine; Visit Provider Family Medicine Geriatric Medicine
DX: R19.00 Intra-abdominal and pelvic swelling, mass and lump, unspecified site (principal)
CPT/HCPCS: 72197; A9575

== ENCOUNTER → 2019-08-15 15:48 | Outpatient (CLI) | payer MEDICAID, SELFPAY ==
[2019-08-10 04:28] VITALS: BMI 25.7
--- NOTE | 2019-08-15 15:30 | EMB_PTH ---
PATIENT: HELEN PETTIT LOC: [facility] U#:[id number] AGE/SX: 54/F ROOM: RE08/15/[address]: Dr. True Livingston MD : 1970 BED: DIS: SPEC #: [id number] RECD: 08/18/19 08:53 STATUS: RONAK REQ #: [id number] HALEY: 08/15/19 15:[address]: True Livingston DEPT: SURGICAL PATHOLOGY RECD BY: Hugh Calero ENTERED: 08/18/19 08:53 SP TYPE: ENDOM BX/C JON DR: Dr. Bear Meyre MD Tissues: Endometrium, NOS Procedures: Surgery Specimen Level IV HEADER OPERATION: Endometrial biopsy PRE-OP DIAGNOSIS: N92.0 TISSUE SUBMITTED: Endometrial biopsy MICROSCOPIC DIAGNOSIS Endometrial biopsy: Weakly proliferative endometrium. SJ:aurelia 08/19/19 MICROSCOPIC DESCRIPTION Slides are reviewed. GROSS DESCRIPTION Received in fixative is one container labeled with the patient's name and designated EM biopsy. The specimen consists of multiple fragments of luis hemorrhagic soft tissue mixed with mucoid tissue that in aggregate measure 2.5 x 2 x 0.1 cm. The specimen is totally submitted in one cassette. / SJ:aurelia 08/18/19 TC:5 CPT: 57899
== END ==
PROVIDERS: PCP Family Medicine Geriatric Medicine; Visit Provider Obstetrics & Gynecology
DX: N93.9 Abnormal uterine and vaginal bleeding, unspecified (principal); N92.0 Excessive and frequent menstruation with regular cycle
CPT/HCPCS: 88305

== ENCOUNTER 2019-08-24 22:22 | Emergency (ER) | payer MEDICAID, SELFPAY ==
[2019-08-24 22:23] VITALS: BP 168/107; PULSE 90; RESP 18; TEMP 36.4; O2SAT 97; BMI 25.0
[2019-08-24 22:31] VITALS: BP 166/84
--- NOTE | 2019-08-24 22:38 | EKG12_ITS ---
Test Reason : HYPERTENSION Blood Pressure : / mmHG Vent. Rate : 078 BPM Atrial Rate : 078 BPM P-R Int : 166 ms QRS Dur : 102 ms QT Int : 384 ms P-R-T Axes : 020 036 057 degrees QTc Int : 437 ms Normal sinus rhythm Normal ECG Confirmed by NURYS BATISTA MD ([id number]), editorial project manager ALYCIA MOSLEY ([id number]) on 08/25/2019 3:24:03 PM Referred By: DIANA Confirmed By:NURYS BATISTA MD
--- NOTE | 2019-08-24 22:42 | ED.DCSUM_ITS ---
- ER Visit Summary Date of Service: 08/24/19 Chief Complaint: Hypertension History of Present Illness: The patient is a 49 F who presents with elevated blood pressure that was noticed today. Patient states she felt like her blood pressure was elevated because she felt flushed all over. Patient states she also feels swollen all over. Patient states these are typical feelings for her when her blood pressure is elevated. Patient is on losartan for her blood pressure. Patient called her primary care physician who told her to take an extra losartan. Patient states she was having difficulty taking this because she felt like she was having a choking sensation in her throat. Patient also has a history of anxiety and is currently being weaned off of her Klonopin. Patient states her last dose of Klonopin was yesterday. Patient states she only has 1 tablet of Klonopin left and her prescription. Patient's blood pressure at home was 164/104. Physical Examination: Vital signs are stable except for an elevated blood pressure of 168/107. Patient is afebrile. Patient is anxious on exam but in no acute distress. Oral mucosa is pink and moist. Neck is supple. Trachea is midline. There is no JVD. Heart was regular rate and rhythm. Lungs are clear and equal bilaterally. Abdomen is soft. Bowel sounds are normal. There is mild suprapubic tenderness. Cranial nerves II through XII are intact. There are no focal motor or sensory deficits noted. Test Results: EKG showed normal sinus rhythm with a rate of 78. There are no acute ST or T wave changes. This was unchanged compared to previous EKG dated 06/27/2019. CBC was normal. Comprehensive metabolic profile showed a slightly elevated creatinine 1.06. Troponin was normal. PA and lateral chest x-ray was obtained. There is no acute cardiopulmonary process. This was interpreted by selena jay radiologist and myself. Emergency Department Course and Treatment: Patient was given a dose of Vistaril here. I feel her blood pressure is more likely related to her anxiety. Patient's blood pressure improved to 140/93 on reevaluation. Patient is feeling better. Patient was instructed to follow-up with her primary care physician in 3 to 5 days. Patient was instructed to keep a log of her blood pressures. Patient was instructed to return if worse in any way. Patient understood and was agreeable with the plan. All questions were answered. Disposition: Discharge home Impression: 1. Hypertension 2. Anxiety This note was generated with Trador[employer] dictation software. It may contain incorrect words, spelling, and punctuation that were not noted in review of the chart prior to signing ED Disposition - Plan for ED Patient: Disposition: Home or Assisted Living Diagnosis: Anxiety, Hypertension Instructions: HYPERTENSION, Established, Anxiety Reaction Referrals: Bear Meyer Chi, MD [Primary Care Provider] - 3-5 Days
[2019-08-24] MEDS: hydrOXYzine PAM 25 MG Capsule PO (22:53)
[2019-08-24 23:11] LABS: Absolute Lymphocyte Count 2.69 X10^3/uL (0.83-4.51); Absolute Neutrophil Count 6.5 X10^3/uL (2.0-7.7); Basophil# 0.03 X10^3/uL; Basophil% 0.3 % (0-1); Eosinophil# 0.04 X10^3/uL; Eosinophils% 0.4 % (0-5); Hematocrit 41.4 % (37-47); Hemoglobin 13.4 g/dL (12.0-15.0); Lymphocyte # 2.69 X10^3/ul (4.0); Lymphocyte % 27.1 % (19-41); Mean Corp Hgb Conc 32.4 g/dL (32-36); Mean Corpuscular Hgb 31.6 pg (27.0-32.0); Mean Corpuscular Volume 97.6 fL (81-99); Mean Platelet Vol. 10.3 fl (6.2-12.0); Monocyte# 0.61 X10^3/uL; Monocyte% 6.1 % (0-10); NRBC Flagged by Analyzer 0 % (0-5); Neutrophil # 6.52 X10^3/uL (2.7-7.7); Neutrophil % 65.6 % (47-70); Platelet Count 244 K/mm3 (150-450); RBC Distribution Width CV 12.8 % (11.6-14.6); RBC Distribution Width SD 46.1 fl (35.1-43.9); Red Blood Count 4.24 M/mm3 (4.2-5.4); White Blood Count 9.9 K/mm3 (4.4-11.0)
--- NOTE | 2019-08-24 23:15 | RAD_ITS ---
STUDY: X-RAY CHEST REASON FOR EXAM: Female, 49 years old. PALPITATIONS, HYPERTENSION -- PT HAS HX OF HYPERTENSION TECHNIQUE: Frontal and lateral views of the chest. COMPARISON: None. FINDINGS: The lungs are clear and expanded. There is no demonstrated pleural abnormality. Normal size heart. Normal mediastinum and sweta. Normal visualized pulmonary arteries. Normal visualized aortic arch and descending thoracic aorta. Normal visualized thoracic spine. Normal visualized ribs, clavicles, and shoulders. There is no demonstrated abnormality of the visualized soft tissue structures of the upper abdomen. RAD/Chest PA and Lateral IMPRESSION: Normal x-ray examination of the chest. Electronically Signed: Christopher Roque, at 23:34 EDT Tel , Service support ,
[2019-08-24 23:30] LABS: ALB/GLOB Ratio 0.9 RATIO (0.9-2.4); AST(SGOT) 23 U/L (15-37); Alanine Aminotransfer ALT/SGPT 22 U/L (13-56); Albumin, Serum 3.5 g/dL (3.2-5.0); Alkaline Phosphatase 66 U/L (45-117); Anion Gap 4 (5-15); BUN 15 mg/dL (7-18); BUN/Creat Ratio 14.2 RATIO (10-20); Calcium,Total 9.4 mg/dL (8.5-10.1); Chloride 105 mmol/L (98-107); Creatinine, Serum 1.06 mg/dL (0.55-1.02); EST Glomerular Filtration Rate 59 mL/min (>60); Est Glom Filt Rate - Afr Amer 71 mL/min (>60); Estimated Creatinine Clearance 66.19 ml/min; Glucose 82 mg/dL (74-106); Potassium 4.1 mmol/L (3.5-5.1); Protein, Total 7.5 g/dL (6.4-8.2); Sodium Level 138 mmol/L (136-145)
[2019-08-25 00:01] VITALS: BP 147/97; PULSE 74; RESP 16; O2SAT 100
== END 2019-08-25 00:04 | disposition home or self-care (01) ==
PROVIDERS: Emergency Provider Emergency Medicine; PCP Family Medicine Geriatric Medicine
DX: I10 Essential (primary) hypertension (principal); F41.9 Anxiety disorder, unspecified; Z79.899 Other long term (current) drug therapy
CPT/HCPCS: 71046; 80053; 84484; 85025; 93005; 99285; A4216

== ENCOUNTER 2019-08-31 12:01 | Emergency (ER) | payer MEDICAID, SELFPAY ==
[2019-08-31 12:01] VITALS: BP 145/95; PULSE 108; RESP 20; TEMP 37; O2SAT 100; BMI 25.2
[2019-08-31] MEDS: Mag Hydrox/Al Hydrox/Simeth 30 ML UDC PO (12:26)
--- NOTE | 2019-08-31 12:45 | ED.DCSUM_ITS ---
History of Present Illness Chief Complaint: Abd Pain Informant: Patient - Abdominal Pain/Flank Pain Onset: Month(s) - 1 month Context: Gradual Onset Timing: Continuous Quality: Burning Location: Epigastric Current Severity: Moderate Maximum Severity: Moderate Worsened by: Food Relieved by: Antacids - Nausea/Vomiting/Emesis GI Symptom: Nausea. Negative for: Vomiting - Diarrhea/Melena/Hematochezia GI Symptom: Negative for: Diarrhea, Melena, Hematochezia Associated Symptoms: Negative for: Dysuria, Frequency, Hematuria, Urgency Narrative: 49-year-old female with a history of GERD presents to the emergency department with abdominal pain. It is been an epigastric burning pain with a sour taste in her mouth for about a month. No vomiting or diarrhea. No melena or hematochezia. No constipation. No urinary symptoms. No fevers. No back pain chest pain or shortness of breath. She is not lightheaded or dizzy. She used to take omeprazole but has not taken it in several months because she ran out. Her last endoscopy was a couple years ago. Prior similar symptoms: Yes Recent Illness/Hospitalization: No Past Medical History - Allergies and Home Meds Allergies/Adverse Reactions: Allergies milk Allergy (Verified 08/31/19 12:03) Other sumatriptan [From Imitrex] Allergy (Verified 08/31/19 12:03) TUNNEL VISION sumatriptan succinate [From Imitrex] Allergy (Verified 08/31/19 12:03) TUNNEL VISION Primary Care Physician: Bear Meyer Chi, MD [Primary Care Provider] - Prior records reviewed: Yes Past Medical History: - - GERD, HTN Surgical History: cholecystectomy, - - Rhinoplasty for deviated septum, bilateral tubal ligation: Knee surgery; carpal tunnel surgery Lives: With Family Smoking Status: Never smoker Alcohol: Occasional Drugs: None - Family History Maternal Family History: Reports: - - Epilepsy Paternal Family History: Reports: Heart Disease - His father had a permanent pacemaker Review of Systems All systems negative except as indicated General: Denies: Chills, Fever, Malaise Eyes: Denies: Visual changes - bilaterally, Blurred Vision - bilaterally, Diplopia ENT: Denies: Rhinorrhea, Sore throat Cardiovascular: Denies: Chest pain, Palpitations Respiratory: Denies: Dyspnea, Cough, Sputum Gastrointestinal: Reports: Abdominal pain, Nausea. Denies: Vomiting, Diarrhea, Constipation, Melena, Hematochezia Genitourinary: Denies: Dysuria, Hematuria, Frequency Musculoskeletal: Denies: Myalgias, Arthralgias, Neck pain, Back pain, Swelling, Extremity Pain Skin: Denies: Rash, Abscess, Abrasions, Wounds Neurological: Denies: Headache, Weakness, Parasthesia, Numbness Hematologic: Denies: Easy bruising, Easy bleeding Physical Exam Vital Signs/Narrative: Vital Signs Temp Pulse Resp BP Pulse Ox 08/31/19 12:01 98.6 F 108 H 20 H 145/95 H 100 Inital Vital Signs reviewed: Yes General: Well nourished, Well developed, No Acute Distress Head: Normocephalic, Atraumatic Eyes: Perrl, EOMI ENT: Moist mucous membranes Neck: Supple, Nontender Cardiovascular: Regular rate, Regular rhythm, No murmurs Respiratory: No distress, CTA bilaterally, Chest nontender Abdomen: Soft, Nontender, Nondistended, Normal bowel sounds, No masses Back: Nontender, Normal Inspection Extremities: Nontender, No edema Skin: Normal color, No rash Neurological: Alert, Oriented x3 Diagnostic/Tx/Re-eval - Medical Decision Making Patient abdomen soft nontender patient tolerating by mouth well-appearing stable vital signs given a GI cocktail with improvement discussed with her at this time we will restart her on a PPI she does not need acute intervention or acute work- up in the emergency department that this can be done as an outpatient she was agreeable and discharged ED Disposition - Plan for ED Patient: Disposition: Home or Assisted Living Diagnosis: GERD (gastroesophageal reflux disease), Abdominal pain Instructions: Gastroesophageal Reflux Disease (GERD) Prescriptions: Omeprazole [Prilosec] 20 mg PO DAILY #30 cap Prescription Printed Referrals: Bear Meyer Chi, MD [Primary Care Provider] - Domo Stone MD [STAFF PHYSICIAN] -
--- NOTE | 2019-08-31 12:46 | ED.VIS.GEN ---
History of Present Illness Chief Complaint: Abd Pain Past Medical History - Allergies and Home Meds Allergies/Adverse Reactions: Allergies milk Allergy (Verified 08/31/19 12:03) Other sumatriptan [From Imitrex] Allergy (Verified 08/31/19 12:03) TUNNEL VISION sumatriptan succinate [From Imitrex] Allergy (Verified 08/31/19 12:03) TUNNEL VISION Primary Care Physician: Bear Meyer Chi, MD [Primary Care Provider] - Surgical History: cholecystectomy, - - Rhinoplasty for deviated septum, bilateral tubal ligation: Knee surgery; carpal tunnel surgery Smoking Status: Never smoker - Family History Maternal Family History: Reports: - - Epilepsy Paternal Family History: Reports: Heart Disease - His father had a permanent pacemaker Physical Exam Vital Signs/Narrative: Vital Signs Temp Pulse Resp BP Pulse Ox 08/31/19 12:01 98.6 F 108 H 20 H 145/95 H 100 Diagnostic/Tx/Re-eval - Medical Decision Making Patient was seen with Mirza agree with history and physical as above Coronavirus emergency in effect no exposure She complains of really periumbilical epigastric pain she is had for a few months she has been started on different GI meds such as proton pump inhibitors and Carafate she was taking that that seem to improve she stopped taking it the pain seems to recur intermittently she is eating and drinking bowel bladder was normal she was to follow with her outpatient providers but has not done so yet on exam the abdomen is soft and nontender she points to the really middle of her abdomen just above the umbilicus is a focus of her pain the entire abdominal exam is unremarkable there is no pain rebound or guarding Had a long conversation with her discussed management options she understands that the type evaluation she needs given the long duration of the symptoms and her current findings are best obtained outpatient, she will be referred to Dr. Stone restart all of her meds and return for change in symptoms and follow-up with her other outpatient providers for further management, see the chart for full details ED Disposition - Plan for ED Patient: Referrals: Bear Meyer Chi, MD [Primary Care Provider] -
== END 2019-08-31 12:53 | disposition home or self-care (01) ==
PROVIDERS: Emergency Provider Physician Assistant Medical; PCP Family Medicine Geriatric Medicine
DX: K21.9 Gastro-esophageal reflux disease without esophagitis (principal); R10.9 Unspecified abdominal pain; I10 Essential (primary) hypertension; Z79.899 Other long term (current) drug therapy; Z90.49 Acquired absence of other specified parts of digestive tract
CPT/HCPCS: 99283

== ENCOUNTER 2019-09-04 19:11 | Emergency (ER) | payer MEDICAID, SELFPAY ==
[2019-09-04 19:13] VITALS: BP 147/89; PULSE 90; RESP 18; TEMP 36.8; O2SAT 94; BMI 25.0
[2019-09-04 20:42] LABS: Absolute Lymphocyte Count 2.75 X10^3/uL (0.83-4.51); Absolute Neutrophil Count 6.3 X10^3/uL (2.0-7.7); Basophil# 0.03 X10^3/uL; Basophil% 0.3 % (0-1); Eosinophil# 0.04 X10^3/uL; Eosinophils% 0.4 % (0-5); Hematocrit 39.3 % (37-47); Hemoglobin 13.4 g/dL (12.0-15.0); Lymphocyte # 2.75 X10^3/ul (4.0); Lymphocyte % 28.4 % (19-41); Mean Corp Hgb Conc 34.1 g/dL (32-36); Mean Corpuscular Hgb 32.2 pg (27.0-32.0); Mean Corpuscular Volume 94.5 fL (81-99); Mean Platelet Vol. 10.3 fl (6.2-12.0); Monocyte# 0.56 X10^3/uL; Monocyte% 5.8 % (0-10); NRBC Flagged by Analyzer 0 % (0-5); Neutrophil # 6.26 X10^3/uL (2.7-7.7); Neutrophil % 64.8 % (47-70); Platelet Count 237 K/mm3 (150-450); RBC Distribution Width CV 12.3 % (11.6-14.6); RBC Distribution Width SD 42.9 fl (35.1-43.9); Red Blood Count 4.16 M/mm3 (4.2-5.4); White Blood Count 9.7 K/mm3 (4.4-11.0)
[2019-09-04] MEDS: 0.9% Normal Saline 1,000 ML 1000 ML IV (20:42)
[2019-09-04 21:02] LABS: ALB/GLOB Ratio 0.8 RATIO (0.9-2.4); AST(SGOT) 44 U/L (15-37); Alanine Aminotransfer ALT/SGPT 23 U/L (13-56); Albumin, Serum 3.4 g/dL (3.2-5.0); Alkaline Phosphatase 67 U/L (45-117); Anion Gap 7 (5-15); BUN 15 mg/dL (7-18); BUN/Creat Ratio 16.1 RATIO (10-20); CPK Total, Creatine Kinase 120 U/L (26-192); Calcium,Total 9.5 mg/dL (8.5-10.1); Chloride 108 mmol/L (98-107); Creatinine, Serum 0.93 mg/dL (0.55-1.02); EST Glomerular Filtration Rate 69 mL/min (>60); Est Glom Filt Rate - Afr Amer 83 mL/min (>60); Estimated Creatinine Clearance 75.44 ml/min; Globulin 4.1 g/dL (2.2-4.2); Glucose 81 mg/dL (74-106); Potassium 4.8 mmol/L (3.5-5.1); Protein, Total 7.5 g/dL (6.4-8.2); Sodium Level 138 mmol/L (136-145)
[2019-09-04 21:04] LABS: Lactic Acid 1.3 mmol/L (0.4-1.9)
[2019-09-04] MEDS: hydrOXYzine PAM 25 MG Capsule PO (21:08)
[2019-09-04 21:09] VITALS: BP 141/74; PULSE 84; RESP 16; O2SAT 100
[2019-09-04 21:24] LABS: Mucous, Urine 0 SEEN /hpf (<or=2+)
--- NOTE | 2019-09-04 21:28 | ED.VISSUMM ---
- ER Visit Summary Date of Service: 09/04/19 Chief Complaint: Weakness History of Present Illness: The patient is a 49 F who has been getting weak over the past 2 days. Patient states today she was having difficulty ambulating due to the weakness. Patient states she has been feeling fatigued. Patient also admits to some tingling in her arms and legs. Patient states her weakness is generalized. Patient admits to some nausea but denies any vomiting. Patient admits to some increased vaginal bleeding. Patient also admits to some rhinorrhea. Patient denies any recent fevers or chills. Patient denies any shortness of breath or cough. Physical Examination: Vital signs are stable. Patient is afebrile. Patient is in no acute distress. Cranial nerves II through XII are intact. Patient is able to move all of her extremities without difficulty. Strength is 5/5 bilaterally in the upper and lower extremities. There are no sensory deficits. Oral mucosa is pink and moist. Neck is supple. Trachea is midline. There is no JVD. Heart was regular rate and rhythm. Lungs are clear and equal bilaterally. Abdomen is soft. Bowel sounds are normal. There is no tenderness. Test Results: CBC and comprehensive metabolic profiles were within normal limits. Influenza swab was negative. Urinalysis shows leukocyte esterase of 500 with 25-50 white blood cells and 1+ bacteria. Total CK was normal at 120. Lactate was normal at 1.3. Tox screen was negative. Portable chest x-ray was obtained. There is no acute cardiopulmonary process. This was interpreted by the radiologist and myself. Upon chart review patient was noted to have a history of hypothyroidism. TSH was ordered. This is only slightly elevated at 4.17. Emergency Department Course and Treatment: Patient was given IV fluids. Patient was given a dose of Vistaril here. Patient was able to ambulate here in the emergency department after IV fluids. Patient was given a dose of Bactrim here. Patient was given a prescription for Bactrim. Patient was instructed to follow-up with her primary care physician in 3 to 5 days. Patient understood and was agreeable with the plan. All questions were answered. Disposition: Discharge home Impression: 1. Urinary tract infection 2. General weakness This note was generated with [employer] software. It may contain incorrect words, spelling, and punctuation that were not noted in review of the chart prior to signing ED Disposition - Plan for ED Patient: Disposition: Home or Assisted Living Diagnosis: Urinary tract infection, Generalized weakness Instructions: Bladder Infection, Female (Adult) Prescriptions: Smz/Tmp Ds [Bactrim Ds] 1 tab PO BID #6 tab Prescription Printed Referrals: Bear Meyer Chi, MD [Primary Care Provider] - 3-5 Days
[2019-09-04 21:31] LABS: Color, Urine Yellow (Yellow); Glucose, Dipstick Normal (Normal); Leukocyte Esterase-Dipstick 500 /ul (Negative); Nitrite-Dipstick Negative (Negative); Occult Blood-Urine 250 /ul (Negative); Protein-Dipstick Negative (Negative); Specific Gravity, Urine 1.015 (1.002-1.030); Urine Bilirubin Dipstick Negative (Negative); Urine Clarity Sl. Cloudy (Clear); Urine Urobilinogen Normal (Normal)
--- NOTE | 2019-09-04 21:35 | RAD_ITS ---
STUDY: X-RAY CHEST REASON FOR EXAM: Female, 49 years old. PT C/O WEAKNESS, TINGLING IN ARMS,NAUSEA. TECHNIQUE: Single AP portable view of the chest. COMPARISON: 08/24/2019 FINDINGS: The lungs are clear and expanded. There is no demonstrated pleural abnormality. Normal size heart. Normal mediastinum and sweta. Normal visualized pulmonary arteries. Normal visualized aortic arch and descending thoracic aorta. Normal visualized thoracic spine. Normal visualized ribs, clavicles, and shoulders. There is no demonstrated abnormality of the visualized soft tissue structures of the upper abdomen. RAD/Chest 1 View (Portable) IMPRESSION: Normal x-ray examination of the chest. Electronically Signed: Bob Arenas DO at 22:00 EDT Tel , Service support ,
[2019-09-04 21:36] LABS: Ketone-Dipstick 150 mg/dl (Negative)
[2019-09-04 21:38] LABS: Bacteria 1+ /hpf (None Seen); Red Blood Cells-Urine 5-10 SEEN /hpf (0-5); Squamous Epithelial Cells - UA 5-10 SEEN /hpf (5-10); White Blood Cells 25-50 SEEN /hpf (0-5)
[2019-09-04 21:42] LABS: Amphetamine Urine VISTA NEGATIVE (<1000 ng/mL); Barbiturate Urine VISTA NEGATIVE (< 200 ng/mL); Benzodiazepine Urine VISTA NEGATIVE (< 200 ng/mL); Cocaine Urine VISTA NEGATIVE (< 300 ng/mL); Ecstacy Urine VISTA NEGATIVE (< 500 ng/mL); Methadone Urine VISTA NEGATIVE (< 300 ng/mL); PCP Urine VISTA NEGATIVE (< 25 ng/mL); THC Urine VISTA NEGATIVE (< 50 ng/mL); Vista UDS pH Range 6
[2019-09-04] MEDS: Smz/Tmp Ds Tablet 1 TABLET PO (22:06)
[2019-09-04 22:34] LABS: Thyroid Stim Hormone (TSH) 4.17 uIU/mL (0.358-3.74)
[2019-09-04 23:09] VITALS: BP 119/66; PULSE 64; RESP 16; O2SAT 99
== END 2019-09-04 23:12 | disposition home or self-care (01) ==
PROVIDERS: Emergency Provider Emergency Medicine; PCP Family Medicine Geriatric Medicine
DX: N39.0 Urinary tract infection, site not specified (principal); R53.1 Weakness; N93.9 Abnormal uterine and vaginal bleeding, unspecified; R20.2 Paresthesia of skin; J34.89 Other specified disorders of nose and nasal sinuses; M54.2 Cervicalgia; K21.9 Gastro-esophageal reflux disease without esophagitis; I10 Essential (primary) hypertension; E03.9 Hypothyroidism, unspecified; F41.9 Anxiety disorder, unspecified; Z87.19 Personal history of other diseases of the digestive system; Z79.899 Other long term (current) drug therapy
CPT/HCPCS: 71045; 80053; 80307; 81001; 82550; 83605; 84443; 85025; 87804; 96360; 96361; 99284; J7030; A4216

== ENCOUNTER → 2019-09-05 11:38 | Outpatient (CLI) | payer MEDICAID, SELFPAY ==
[2019-09-04 19:13] VITALS: BMI 25.0
== END ==
PROVIDERS: PCP Family Medicine Geriatric Medicine; Visit Provider Family Medicine Geriatric Medicine
DX: N39.0 Urinary tract infection, site not specified (principal)
CPT/HCPCS: 87086

== ENCOUNTER → 2019-09-09 16:41 | Outpatient (CLI) | payer MEDICAID, SELFPAY ==
[2019-09-04 19:13] VITALS: BMI 25.0
--- NOTE | 2019-09-09 16:45 | RAD_ITS ---
STUDY: X-RAY - LUMBAR SPINE REASON FOR EXAM: Female, 49 years old. BACK PAIN X1 WEEK TECHNIQUE: 3 view(s) of the lumbar spine were obtained. COMPARISON: None FINDINGS: Normal lumbar lordosis. Minimal scoliosis, convexity to the right. There is a normal alignment of the vertebrae. There is mild, multilevel endplate spondylosis of the lumbar vertebrae. There is multi-level degenerative disc disease with multi-level disc space narrowing. There is no demonstrated fracture. The soft tissue structures are unremarkable. RAD/Lumbar Spine 2 or 3 Views IMPRESSION: Minimal scoliosis along with mild degenerative disease as described. No acute fracture or spondylolisthesis. Electronically Signed: Kelin Dickson MD at 0:53 EDT , Service support ,
--- NOTE | 2019-09-09 16:45 | RAD_ITS ---
STUDY: X-RAY - THORACIC SPINE REASON FOR EXAM: Female, 49 years old. BACK PAIN X1 WEEK TECHNIQUE: 4 view(s) of the thoracic spine were obtained. COMPARISON: None. FINDINGS: Normal kyphosis of the thoracic spine. There is no substantial scoliosis. There is mild, multilevel endplate spondylosis of the thoracic vertebrae. Normal disc space heights. No acute fracture. The soft tissue structures are unremarkable. RAD/Thoracic Spine 3 Views IMPRESSION: Mild spondylosis/degenerative disease with no acute fracture or subluxation. Electronically Signed: Kelin Dickson MD at 0:53 EDT , Service support ,
== END ==
PROVIDERS: PCP Family Medicine Geriatric Medicine; Referring Provider Family Medicine Geriatric Medicine; Visit Provider Family Medicine Geriatric Medicine
DX: M54.5 Low back pain (principal)
CPT/HCPCS: 72072; 72100

== ENCOUNTER 2019-10-04 09:34 | Emergency (ER) | payer MEDICAID, SELFPAY ==
[2019-10-04 09:34] VITALS: BP 148/106; PULSE 92; RESP 16; TEMP 36.6; O2SAT 100; BMI 24.9
--- NOTE | 2019-10-04 09:46 | ED.DCSUM_ITS ---
History of Present Illness Chief Complaint: Abd Pain Informant: Patient Onset: Month(s) - 2 months Context: Gradual Onset Current Severity: Moderate Maximum Severity: Moderate Narrative: Patient presents with continued epigastric abdominal pain. She started having increased pain about 2 months ago. She was restarted on her Prilosec at that time but did not notice improvement. Her PCP currently has her on Protonix and Carafate. She has seen Dr. Stone with a telehealth visit. Plan is to do an EGD once she is able to get the procedure performed secondary to the COVID restrictions. Patient does report nausea and increased pain with eating. She is having normal bowel movements and urinating normally. She denies fever or chills. She has had prior cholecystectomy. - Past Medical History (1) Anxiety Status: Chronic (2) GERD (gastroesophageal reflux disease) Status: Chronic (3) Hypertension Status: Chronic (4) Hypothyroidism Status: Chronic Past Medical History - Allergies and Home Meds Allergies/Adverse Reactions: Allergies milk Allergy (Verified 10/04/19 09:41) Other sumatriptan [From Imitrex] Allergy (Verified 10/04/19 09:41) TUNNEL VISION sumatriptan succinate [From Imitrex] Allergy (Verified 10/04/19 09:41) TUNNEL VISION Primary Care Physician: Bear Meyer Chi, MD [Primary Care Provider] - Doctors: Dr. Stone Prior records reviewed: Yes Surgical History: cholecystectomy, - - Rhinoplasty for deviated septum, bilateral tubal ligation: Knee surgery; carpal tunnel surgery Smoking Status: Former smoker - Family History Maternal Family History: Reports: - - Epilepsy Paternal Family History: Reports: Heart Disease - His father had a permanent pacemaker Review of Systems General: Denies: Chills, Fever Eyes: Denies: Visual changes - bilaterally ENT: Denies: Bilateral ear pain Cardiovascular: Denies: Chest pain Respiratory: Denies: Dyspnea, Cough Gastrointestinal: Reports: Abdominal pain, Nausea. Denies: Vomiting, Diarrhea Genitourinary: Denies: Dysuria Musculoskeletal: Reports: Back pain. Denies: Extremity Pain Skin: Denies: Rash Neurological: Denies: Headache Hematologic: Denies: Easy bruising, Easy bleeding Allergy: Denies: Uticaria Physical Exam Vital Signs/Narrative: Vital Signs Temp Pulse Resp BP Pulse Ox 10/04/19 09:34 97.8 F 92 16 148/106 H 100 Inital Vital Signs reviewed: Yes General: Well nourished, Well developed Head: Normocephalic ENT: Moist mucous membranes Neck: Supple Cardiovascular: Regular rate, Regular rhythm Respiratory: No distress, CTA bilaterally Abdomen: Soft, Normal bowel sounds, Tender - Epigastric tenderness to palpation.. Negative for: Guarding, Rebound tenderness Extremities: Nontender Skin: Normal color Neurological: Alert, Oriented x3 Psychological: Normal affect Diagnostic/Tx/Re-eval Laboratory Last Values WBC 11.0 K/mm3 (4.4-11.0) 10/04/19 10:10 RBC 3.92 M/mm3 (4.2-5.4) L 10/04/19 10:10 Hgb 12.3 g/dL (12.0-15.0) 10/04/19 10:10 Hct 38.2 % (37-47) 10/04/19 10:10 MCV 97.4 fL (81-99) 10/04/19 10:10 MCH 31.4 pg (27.0-32.0) 10/04/19 10:10 MCHC 32.2 g/dL (32-36) 10/04/19 10:10 RDW Std Deviation 42.9 fl (35.1-43.9) 10/04/19 10:10 RDW Coeff of Dylon 12.0 % (11.6-14.6) 10/04/19 10:10 Plt Count 223 K/mm3 (150-450) 10/04/19 10:10 MPV 10.1 fl (6.2-12.0) 10/04/19 10:10 Immature Gran % (Auto) 0.300 % (0.0-0.9) 10/04/19 10:10 Neut % (Auto) 67.3 % (47-70) 10/04/19 10:10 Lymph % (Auto) 25.2 % (19-41) 10/04/19 10:10 [place] % (Auto) 6.2 % (0-10) 10/04/19 10:10 Eos % (Auto) 0.8 % (0-5) 10/04/19 10:10 Baso % (Auto) 0.2 % (0-1) 10/04/19 10:10 Absolute Neuts (auto) 7.4 X10^3/uL (2.0-7.7) 10/04/19 10:10 Absolute Lymphs (auto) 2.77 X10^3/uL (0.83-4.51) 10/04/19 10:10 Nucleated RBC % 0 % (0-5) 10/04/19 10:10 Sodium 142 mmol/L (136-145) 10/04/19 10:10 Potassium 3.5 mmol/L (3.5-5.1) 10/04/19 10:10 Chloride 109 mmol/L (98-107) H 10/04/19 10:10 Carbon Dioxide 28.0 mmol/L (21.0-32.0) 10/04/19 10:10 Anion Gap 5 (5-15) 10/04/19 10:10 BUN 8 mg/dL (7-18) 10/04/19 10:10 Creatinine 0.84 mg/dL (0.55-1.02) 10/04/19 10:10 Estim Creat Clear Calc 83.52 ml/min 10/04/19 10:10 Est GFR (MDRD) Af Amer 94 mL/min (>60) 10/04/19 10:10 Est GFR (MDRD) Non-Af 78 mL/min (>60) 10/04/19 10:10 BUN/Creatinine Ratio 9.6 RATIO (10-20) L 10/04/19 10:10 Glucose 88 mg/dL (74-106) 10/04/19 10:10 Calcium 9.5 mg/dL (8.5-10.1) 10/04/19 10:10 Total Bilirubin 0.40 mg/dL (0.20-1.00) 10/04/19 10:10 Direct Bilirubin 0.12 mg/dL (0.00-0.30) 10/04/19 10:10 AST 17 U/L (15-37) 10/04/19 10:10 ALT 28 U/L (13-56) 10/04/19 10:10 Alkaline Phosphatase 63 U/L (45-117) 10/04/19 10:10 Total Protein 7.3 g/dL (6.4-8.2) 10/04/19 10:10 Albumin 3.5 g/dL (3.2-5.0) 10/04/19 10:10 Globulin 3.8 g/dL (2.2-4.2) 10/04/19 10:10 Lipase 57 U/L (73-393) L 10/04/19 10:10 - Medical Decision Making The morphine, Reglan, and IV fluids. On repeat evaluation pain is improved. She feels that her nausea was better controlled with Reglan that was with Zofran. Should be given prescription for short course of [place] as well as Reglan. I did do an oars report. Last narcotic was prescribed several months ago. Patient is to call Dr. Stone's office this coming week to see if they are able to yet schedule endoscopy studies. ED Disposition - Plan for ED Patient: Disposition: Home or Assisted Living Diagnosis: Epigastric pain Instructions: ED Epigastric Pain [facility] Prescriptions: Hydrocodone Bitart/Apap 5-325 [[place] 5MG-325MG] 1 tablet PO Q6H PRN PRN 3 Days #10 tablet PRN Reason: Pain Transmission Status: Received by [facility]ARC[facility] Metoclopramide [Reglan] 10 mg PO 4X/DAY PRN #20 tab PRN Reason: Nausea Transmission Status: Pending to [facility] Referrals: Bear Meyer Chi, MD [Primary Care Provider] - Domo Stone MD [STAFF PHYSICIAN] - As soon as possible
[2019-10-04] MEDS: 0.9% Normal Saline 1,000 ML 1000 ML IV (10:12)
[2019-10-04] MEDS: Metoclopramide 10 MG/2 ML Vial 5 MG IV (10:13)
[2019-10-04] MEDS: Morphine 4 MG/ML Syringe IV (10:14)
[2019-10-04 10:27] LABS: Absolute Lymphocyte Count 2.77 X10^3/uL (0.83-4.51); Absolute Neutrophil Count 7.4 X10^3/uL (2.0-7.7); Basophil# 0.02 X10^3/uL; Basophil% 0.2 % (0-1); Eosinophil# 0.09 X10^3/uL; Eosinophils% 0.8 % (0-5); Hematocrit 38.2 % (37-47); Hemoglobin 12.3 g/dL (12.0-15.0); Lymphocyte # 2.77 X10^3/ul (4.0); Lymphocyte % 25.2 % (19-41); Mean Corp Hgb Conc 32.2 g/dL (32-36); Mean Corpuscular Hgb 31.4 pg (27.0-32.0); Mean Corpuscular Volume 97.4 fL (81-99); Mean Platelet Vol. 10.1 fl (6.2-12.0); Monocyte# 0.68 X10^3/uL; Monocyte% 6.2 % (0-10); NRBC Flagged by Analyzer 0 % (0-5); Neutrophil # 7.39 X10^3/uL (2.7-7.7); Neutrophil % 67.3 % (47-70); Platelet Count 223 K/mm3 (150-450); RBC Distribution Width SD 42.9 fl (35.1-43.9); Red Blood Count 3.92 M/mm3 (4.2-5.4)
[2019-10-04 10:43] LABS: AST(SGOT) 17 U/L (15-37); Alanine Aminotransfer ALT/SGPT 28 U/L (13-56); Albumin, Serum 3.5 g/dL (3.2-5.0); Alkaline Phosphatase 63 U/L (45-117); Anion Gap 5 (5-15); BUN 8 mg/dL (7-18); BUN/Creat Ratio 9.6 RATIO (10-20); Bilirubin, Direct 0.12 mg/dL (0.00-0.30); Calcium,Total 9.5 mg/dL (8.5-10.1); Chloride 109 mmol/L (98-107); Creatinine, Serum 0.84 mg/dL (0.55-1.02); EST Glomerular Filtration Rate 78 mL/min (>60); Est Glom Filt Rate - Afr Amer 94 mL/min (>60); Estimated Creatinine Clearance 83.52 ml/min; Globulin 3.8 g/dL (2.2-4.2); Glucose 88 mg/dL (74-106); Lipase 57 U/L (73-393); Potassium 3.5 mmol/L (3.5-5.1); Protein, Total 7.3 g/dL (6.4-8.2); Sodium Level 142 mmol/L (136-145)
[2019-10-04 11:10] VITALS: BP 142/90; PULSE 82; RESP 16; TEMP 36.4; O2SAT 98
== END 2019-10-04 11:17 | disposition home or self-care (01) ==
PROVIDERS: Emergency Provider Emergency Medicine; PCP Family Medicine Geriatric Medicine
DX: R10.13 Epigastric pain (principal); R11.0 Nausea; I10 Essential (primary) hypertension; E03.9 Hypothyroidism, unspecified; K21.9 Gastro-esophageal reflux disease without esophagitis; F41.9 Anxiety disorder, unspecified; Z79.899 Other long term (current) drug therapy; Z87.891 Personal history of nicotine dependence; Z90.49 Acquired absence of other specified parts of digestive tract
CPT/HCPCS: 80048; 80076; 83690; 85025; 96361; 96374; 96375; 99283; J7030; A4216

== ENCOUNTER 2019-10-27 06:01 | Day surgery (SDC) | payer MEDICAID, SELFPAY ==
[2019-10-23 17:15] LABS: Hemoglobin 11.7 g/dL (12.0-15.0); Mean Corp Hgb Conc 30.8 g/dL (32-36); Mean Corpuscular Hgb 30.9 pg (27.0-32.0); Mean Corpuscular Volume 100.3 fL (81-99); Mean Platelet Vol. 9.8 fl (6.2-12.0); Platelet Count 272 K/mm3 (150-450); RBC Distribution Width CV 12.6 % (11.6-14.6); RBC Distribution Width SD 45.4 fl (35.1-43.9); Red Blood Count 3.79 M/mm3 (4.2-5.4); White Blood Count 9.7 K/mm3 (4.4-11.0)
[2019-10-23 17:22] LABS: International Normalized Ratio 1.1; Partial Thromboplast Time 30.8 Seconds (24.1-36.2); Prothrombin Time (Protime)PT. 13.3 SECONDS (11.7-14.9)
[2019-10-23 18:06] LABS: Creatinine, Serum 0.84 mg/dL (0.55-1.02); EST Glomerular Filtration Rate 77 mL/min (>60); Est Glom Filt Rate - Afr Amer 93 mL/min (>60)
[2019-10-23 18:19] LABS: hCG Titer Quant., Serum 1 mIU/mL (1-3)
--- NOTE | 2019-10-26 22:17 | PCM.HP.BLA ---
History and Physical Date of Admission: 10/27/19 Surgical History and Physical Louise Roland, a 49 year old female 1 0 0 0 1, presents for RAVH/BSO on October 27, 2019 at 7:30. -- Menorrhagia; Submucous Cervical Fibroid; Pelvic Pain -- Bleeding which began more than 6 months ago. and has been present 3 weeks. It occurs all the time. It is located in the vagina. Louise characterizes the quality mild.; Louise characterizes the quality occasionally heavy. Severity is intolerable and not improving; It is aggravated by menses. It is relieved by minimal relief with Ibuprophen. Associated signs and symptoms are low pelvic pain especially in left. Additional comments are: MRI of pelvis shows likely submucous cervical fibroid as cause; left ovarian cyst also noted; Additional comments are: has been having irregular bleeding on and off between menses for more than 6 months with pain. MEDICATIONS HISTORY: Patient is also takin. levothyroxine 137 mcg tablet, One tablet by mouth daily 2. Celexa 20 mg tablet, 1 and 1/2 tab po daily 3. losartan 25 mg tablet, 1 tab po daily 4. Zofran 4 mg tablet, 1 tab po prn 5. Vistaril 25 mg capsule, One pill by mouth twice a day ALLERGIES: Imitrex, Vision, blurred, Milk and Intolerance-unknown Infections - PID age 21 Illnesses - GERD, Hypothyroidism and Asthma Accidents - None Hospitalizations - Childbirth and see surgery Constipation, Former smoker qit 2011; Review of Systems: GENERAL - Denies fever, or chills SKIN - Denies skin changes EYES - Denies visual changes EARS - Denies difficulty hearing NOSE - Denies nasal congestion or bleeding MOUTH - Denies sore throat or difficulty swallowing NECK - Denies pain or swelling RESPIRATORY - Denies shortness of breath or wheezing CARDIOVASCULAR - Denies palpitations or chest pain GASTROINTESTINAL - Denies nausea, vomiting, diarrhea, constipation GENITOURINARY - Denies dysuria, frequency of urination, incontinence of urine MUSCULOSKELETAL - Denies joint or muscle pain NEUROLOGICAL - Denies localized numbness or weakness PSYCHIATRIC - Denies depression or anxiety ENDOCRINE - Denies heat or cold intolerance, weight loss or gain HEMATO-IMMUNOLOGIC - Denies excessive bleeding with cuts SOCIAL HISTORY: Alcohol Use - denies drinking Smoking - used to smoke but quit and Quit 2011 Diet - no special diet Lifestyle - Exercise - minimal Seat Belt Use - always 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 Residence - Lives w/ Spouse-Sig Other Name - Kt Spouse-Sig Other Occupation - self employed Children Name(s) - 1 child Control - Tubal FAMILY HISTORY: MENSTRUAL HISTORY: LMP Known?- Approximate Amount/Duration - 7 to 10 days, Regularity - Regular, Frequency - monthly days, LMP - 09/20/19, Age Onset Menarche - 18 PAST PREGNANCIES: Total Pregnancies - 1; Full Term Pregnancies - 1; Premature - 0; Abortions, Induced - 0; Abortions, Spontaneous - 0; Ectopics - 0; Multiple Births - 0; Living Children - 1 SURGICAL HISTORY: 1. Cholecystectomy 2004 2. Tubal 1993 3. Torn Meniscus L Knee 2002 4. Carpal Tunnel R 1999 PHYSICAL EXAM BP- 126/82 Sitting, Right arm, regular cuff Weight- 166.48610 lbs Height- 68 inch BMI:25.29 CONSTITUTIONAL - NAD, well nourished, and well developed SKIN - No rash, lesions, or ulcers HEENT - Normocephalic, PERRLA, EOMI NECK - No nodes, no nuchal rigidity and thyroid normal size and texture LYMPH NODES - Palpation of lymph nodes in neck and groins within normal limits LUNGS - CTA x2 without wheezes, crackles or rales CARDIAC - Regular rate and rhythm without rubs, murmurs, or gallops ABDOMEN - Without hepatosplenomegaly, distention, masses, rebound, or guarding; normal bowel sounds; no hernias EXTREMITIES - No edema or calf tenderness NEUROLOGICAL - Cranial nerves II-XII grossly intact PSYCHIATRIC - A and O to time, place, person, mood and affect External Genital Vagina - non-tender without lesions Urethra/Urethral Meatus - non-tender Bladder - non-tender Vagina - vaginal osuna are pink and moist without loss of rugae and no evidence of atropy and blood in vagina Cervix - cervix appears inflamed; recent PAP normal and high in vagina Uterus - increased tenderness and multiparous size 6 cm & wt 75-125 g Adnexa - increased tenderness both adnexa and more tenderness in left ASSESSMENT/PLAN: 1. Ovarian Cyst Ot/unspec, Premenopause Menorrhagia and Submucous Leiomyoma Uterus MRI and U/S shows likely submucous cervical fibroid as cause of ongoing spotting between menses for the last several months along with occasionally heavy menses and dysmenorrhea. Also symptomatic left ovarian cyst causing some pelvic pain. Discussed options for treatment and pt desires to proceed with hysterectomy. Plan RAVH/BSO given cervix high in vagina and ongoing problems with pelvic pain. Discussed RBAs and all questions answered. EMBx benign.
[2019-10-27] VITALS (15 sets, daily range): BP systolic 132–150; BP diastolic 69–97; PULSE 72–99; RESP 16–20; TEMP 36.1–37.3; O2SAT 97–100; BMI 25.3
[2019-10-27] MEDS: Lactated Ringers 1,000 ML 100 ML IV ×2 (06:46→16:11)
--- NOTE | 2019-10-27 07:30 | HYST_PTH ---
PATIENT: HELEN PETTIT LOC: [facility] [place] U#:[id number] AGE/SX: 49/F ROOM: RE10/27/[address]: Dr. True Livingston MD : 1970 BED: DIS: 10/28/2019 SPEC #: [id number] RECD: 10/27/19 13:22 STATUS: RONAK EARL #: [id number] HALEY: 10/27/19 07:[address]: True Livingston DEPT: SURGICAL PATHOLOGY RECD BY: Jaclyn Hernandez ENTERED: 10/28/19 09:03 SP TYPE: HYSTERECT OTHR DR: Dr. Bear Meyer MD Tissues: Uterus, NOS Procedures: Surgery Specimen Level V HEADER OPERATION: Lap robotic hysterectomy, BSO PRE-OP DIAGNOSIS: Ovarian cyst, premenopause menorrhagia, submucous leiomyoma uterus TISSUE SUBMITTED: Uterus, cervix, bilateral fallopian tubes and ovaries MICROSCOPIC DIAGNOSIS Uterus, hysterectomy: Cervix - nabothian cysts and mild chronic inflammation. Endometrium - weakly proliferative to inactive endometrium. Myometrium - adenomyosis. Right fallopian tube - hemosalpinx and benign paratubal cyst. Right ovary - nonepithelial cyst and corpora albicantia. Left fallopian tube - hemosalpinx and benign paratubal cysts. Left ovary - corpus luteal cyst and corpora albicantia. AM:aurelia 10/29/19 COMMENT Case has been reviewed in consultation with Dr. Nava who concurs with the above diagnosis. IDC:[id number] MICROSCOPIC DESCRIPTION Slides are reviewed. GROSS DESCRIPTION Received in fixative is one container labeled with the patient's name and designated uterus, cervix, bilateral fallopian tubes and ovaries. The specimen consists of a hysterectomy specimen consisting of uterus with cervix and attached bilateral fallopian tubes and ovaries. The uterus with cervix weighs 66 gm and measures 7.5 x 5 x 4 cm. The serosal surface is luis, glistening. The external os is oval in contour. The endocervical canal measures 2.5 cm in length and the endocervical mucosa is luis, glistening and unremarkable. Sections of the cervix reveal two cysts filled with mucoid material. The elongated endometrial cavity measures 4 cm in length and 1 cm in width. The endometrium is luis, glistening without any mass lesion and measures 0.2 cm in thickness. Sections of the uterine wall do not reveal any mass lesion and measures 2 cm in thickness. The right fallopian tube measures 4 cm in length and 0.5 cm in thickness. The fimbrial end is identified. A paratubal cyst is noted measuring 0.7 cm in greatest dimension. The fallopian tube is interrupted in the middle consistent with previous tubal occlusion. A portion of the fallopian tube shows dilated lumen filled with luis-brownish material. The right ovary measures 3 x 2 x 1 cm. Sections reveal unremarkable cut surfaces. The left fallopian tube is similar appearance to right and measures 4 cm in length and 0.5 cm in diameter. The fimbrial end is identified. It is interrupted in the middle consistent with previous tubal occlusion. Sections reveal unremarkable cut surfaces. The proximal portion of the fallopian tube shows a focal area of dilated lumen filled with chocolate brown material. A pedunculated paratubal cyst is noted measuring 1 cm in greatest dimension. It is filled with clear fluid. The left ovary measures 4 x 2.5 x 1.5 cm. Sections two cysts measuring 2 and 2.5 cm in greatest dimension. The cysts are filled with clear fluid. No papillations are identified. Knitter Operator sections are submitted in 12 cassettes as follows: 1 - anterior cervix, 2 - posterior cervix, 3 & 4 - anterior uterine wall, 5 & 6 - posterior uterine wall, 7 - right fallopian tube, 8 - right ovary, 9 - left fallopian tube, 10-12 - left ovary (10 contains the larger cyst). / ELSY:aurelia 10/28/19 TC:5 CPT: 31113
--- NOTE | 2019-10-27 07:40 | OP.PCM_ITS ---
Report of Operation Date of Procedure: 10/27/19 Pre-Operative Diagnosis: Menorrhagia; Submucous Cervical Fibroid; Pelvic Pain Post-Operative Diagnosis: Menorrhagia; Submucous Cervical Fibroid; Pelvic Pain Surgery/Procedure Performed:: Robotic Assisted Vaginal Hysterectomy and Bilateral Salpingo-Oophorectomy Description of Surgical Findings:: 8 cm uterus with normal-appearing fallopian tubes and ovaries. Evidence of prior tubal ligation. forensic ballistics expert: Aisha De Leon Type of Anesthesia:: General - Endotracheal Anesthesiologist: Prudence Choudhury Specimen's removed: Uterus and bilateral fallopian tubes and ovaries Drains: Mirza to straight drain Estimated Blood Loss (mL): Minimal Fluids Replaced: Crystalloid Description of Procedure: Surgeon: True Livingston MD, FACOG Indication: This is a 49 year old patient who has been having problems with menorrhagia, pelvic pain, and submucous cervical fibroids. Conservative measures have not been helpful. The patient has been counseled regarding the risks, benefits and alternatives of this procedure including the possibility of bleeding, infection, and injury to surrounding structures such as bowel bladder and all questions were answered. She understands that if BSO is needed that she will need to be on HRT for an indefinite period of time. Procedure: Pt taken to the operating room where, after induction of general anesthesia, the patient was prepped and draped in the usual sterile fashion and placed on a non-slip Huggy-u-vac device. Trendelenburg test was satisfactory. Bladder was drained of urine with a Mirza catheter which was left in place. Anterior cervix grasped and cervix was dilated to about 3-4 mm. Uterus sounded to 7 cms. 0-Vicryl suture was placed at the 3:00 and 9:00 position of the cervix. A medium Advincula Painter Barrel Uterine Manipulator was then placed in the uterus and attention was turned to the laparoscopic portion of the procedure. Ropivocaine 0.5% was injected approximately 2-3 cm superior to the umbilicus and an 8 mm robotic camera port was introduced directly with intraperitoneal placement confirmed with CO2 insufflation. 8 mm robotic side ports were introduced under direct visualization approximately 10 cm lateral and 2 cm infer ior to the umbilical port. A 5 mm left upper quadrant port was introduced and airseal insufflation with CO2 was started. The above findings were noted. Robot was docked without difficulty and attention turned to the robotic portion of the procedure. Approximately 30 cc of Ropivicaine was used. Bilateral infundibulopelvic ligaments/mesosalpinx were ligated with 35 wing bipolar coagulation to the level of the round ligament. The posterior aspect of the cervix was identified and then opened for about 1 cm using 25 watt monopolar cautery. Bladder flap was opened and divided to the level of the round ligaments using monopolar cautery. Progressive bites were then ligated on each side of the cervix with 35 wing bipolar cautery to the uterine arteries. The anterior vaginal mucosa was entered and cervix circumscribed with monopolar cautery. Uterus and attached tubes and ovaries were removed through the vagina. Vaginal cuff was closed first with 0-Vicryl Tyron stitches placed at each angle followed by closure of the mid-cuff with 0-Monocryl V-lock suture in two layers. Pelvis was copiously irrigated with saline and the right ureter was noted to peristalse. Robot was undocked and trocars were removed with as much gas as possible. Incisions were closed with 4-0 Monocryl subcuticular sutures and incisions covered with steri-strips. The patient tolerated the procedure well and was taken to the recovery room in satisfactory condition. Sponge, instruments and needle counts were all correct. There were no apparent complications of the surgery. Cefotan 2 gms IV was given prior to the procedure. Estimated Blood Loss: Minimal Specimen to Pathology: Uterus and bilateral fallopian tubes and ovaries Grafts/Implants Used: None - Complications None - Admit VTE Documentation VTE Present on Admission: Yes VTE Mechan Device Prophylaxis: SCD's VTE Pharm Prophylaxis ordered?: Yes
--- NOTE | 2019-10-27 07:46 | DCINST_ITS ---
Discharge Diet: No Restrictions Discharge Activity: Return to Normal Activity, May Not Drive - while taking narcotic pain medications., May Shower, May Take a Tub Bath May resume sexual activity in: 6-8 weeks Call your doctor if your incision/area has: Continuous Slow Oozing, Sudden Inc reased Bleeding, Increased Pain/ Swelling, Increased Redness, Foul Smelling Discharge Call your doctor if you observe: Fever of 101 or Higher, Inability to urinate, Inability to have a bowel movement, Using more than one pad per hour Allergies/Adverse Reactions: Allergies milk Allergy (Verified 10/20/19 13:11) Other sumatriptan [From Imitrex] Allergy (Verified 10/20/19 13:11) TUNNEL VISION sumatriptan succinate [From Imitrex] Allergy (Verified 10/20/19 13:11) TUNNEL VISION Medications to take at Discharge Levothyroxine Sodium [Synthroid] 137 mcg PO DAILY 01/08/19 Citalopram [Celexa] 30 mg PO DAILY 07/31/19 Losartan Potassium 25 mg PO 1500 08/10/19 Tramadol HCl [Ultram] 50 mg PO Q6H PRN 08/31/19 Hydroxyzine Pamoate [Vistaril] 50 mg PO TID PRN PRN 10/20/19 Omeprazole 20 mg PO DAILY 10/20/19 Docusate Sodium [Colace] 100 mg PO BID PRN PRN #60 cap 10/27/19 Estradiol 1 mg PO DAILY #100 tab 10/27/19 Oxycodone [Oxyir] 5 mg PO Q6H PRN PRN 7 Days #20 tablet 10/27/19 The following prescriptions were given: Docusate Sodium [Colace] 100 mg PO BID PRN PRN #60 cap PRN Reason: Constipation Transmission Status: Pending to [facility] Estradiol 1 mg PO DAILY #100 tab Transmission Status: Pending to [facility] Oxycodone [Oxyir] 5 mg PO Q6H PRN PRN 7 Days #20 tablet PRN Reason: Pain Score 6-1010 Transmission Status: Received by [facility] Primary Care Physician: Bear Meyer Chi, MD [Primary Care Provider] - Test Results: Test results from this visit will be discussed in further detail at your follow- up appointment, if applicable. Please Follow Up With: True Livingston MD When: 2-3 weeks
[2019-10-27] MEDS: Ropivacaine 0.5% 30 ML Vial (07:53)
[2019-10-27] MEDS: Ketorolac 30 MG/ML Syringe IV ×2 (12:34→18:06)
[2019-10-27] MEDS: oxyCODONE 5 MG Tablet PO ×2 (14:11→19:29)
[2019-10-27] MEDS: Losartan Potassium 25 MG Tablet PO (16:11)
[2019-10-27] MEDS: Enoxaparin 30 MG/0.3 ML Syringe SC (20:21)
[2019-10-28] MEDS: 0.9% Saline Lock 10 ML Syringe IV ×2 (00:27→06:08)
[2019-10-28] MEDS: Ketorolac 30 MG/ML Syringe IV ×2 (00:27→06:07)
[2019-10-28 00:30] VITALS: BP 134/68; PULSE 85; RESP 16; TEMP 36.9; O2SAT 98
[2019-10-28] MEDS: oxyCODONE 5 MG Tablet PO (02:11)
[2019-10-28] MEDS: Lactated Ringers 1,000 ML 100 ML IV (02:11)
[2019-10-28 04:45] VITALS: BP 124/63; PULSE 89; RESP 16; TEMP 36.8; O2SAT 100
[2019-10-28] MEDS: Levothyroxine 137 MCG Tablet PO (06:08)
[2019-10-28 06:20] LABS: Hematocrit 34.8 % (37-47); Hemoglobin 11.2 g/dL (12.0-15.0); Mean Corp Hgb Conc 32.2 g/dL (32-36); Mean Corpuscular Hgb 31.5 pg (27.0-32.0); Mean Platelet Vol. 9.3 fl (6.2-12.0); Platelet Count 240 K/mm3 (150-450); RBC Distribution Width CV 12.5 % (11.6-14.6); RBC Distribution Width SD 44.8 fl (35.1-43.9); Red Blood Count 3.55 M/mm3 (4.2-5.4); White Blood Count 11.6 K/mm3 (4.4-11.0)
[2019-10-28 06:41] LABS: Creatinine, Serum 1.02 mg/dL (0.55-1.02); EST Glomerular Filtration Rate 62 mL/min (>60); Est Glom Filt Rate - Afr Amer 75 mL/min (>60); Estimated Creatinine Clearance 68.78 ml/min
[2019-10-28 07:13] VITALS: O2SAT 98
--- NOTE | 2019-10-28 08:33 | PN.OBGYN_ITS ---
Subjective: Patient without complaints. Minimal vaginal bleeding. Tolerating diet well. Mirza out. Denies flatus. Pain well controlled. Objective: Wounds are clean, dry, intact. Good urine output. Hemoglobin and creatinine okay. - Physical Exam Vitals/I&O's: Vital Signs Temp Pulse Resp BP Pulse Ox 98.2 F 89 16 124/63 H 98 10/28/19 04:45 10/28/19 04:45 10/28/19 04:45 10/28/19 04:45 10/28/19 07:13 Oxygen Flow Rate (L/min) 4 Oxygen Delivery Method Room Air Weight: 166 lb 14.239 oz Body Mass Index (BMI) 25.3 Intake and Output for Last 24 Hours 10/26/19 10/27/19 10/28/19 23:59 23:59 23:59 Intake Total 2430.00 / 2430.00 1703.34 / 1703.34 Output Total 1200 / 1200 1750 / 1750 Balance 1230.00 / 1230.00 -46.66 / -46.66 Laboratory Results 10/28/19 05:50: WBC 11.6 H, RBC 3.55 L, Hgb 11.2 L, Hct 34.8 L, MCV 98.0, MCH 31.5, MCHC 32.2, RDW Std Deviation 44.8 H, RDW Coeff of Dylon 12.5, Plt Count 240, MPV 9.3 10/28/19 05:50: Creatinine 1.02, Estim Creat Clear Calc 68.78, Est GFR (MDRD) Af Amer 75, Est GFR (MDRD) Non-Af 62 Current Medications Acetaminophen (Tylenol) 1,000 mg PO Q8H PRN PRN PRN Reason: Pain Score 1-3/10 or Fever Citalopram Hydrobromide (Celexa) 30 mg PO DAILY PAVRIZ Docusate Sodium (Colace) 100 mg PO BID PRN PRN PRN Reason: Constipation Estrogens Conjugated (Premarin) 0.625 mg PO DAILY PARVIZ Hydromorphone HCl (Dilaudid Inj) 0.5 mg IV Q3H PRN PRN PRN Reason: Pain Score 4-10/10 Hydroxyzine Pamoate (Vistaril Pamoate Capsule) 50 mg PO TID PRN PRN PRN Reason: ANXIETY Lactated Ringer's () 1,000 mls @ 100 mls/hr IV .Q10H [facility] Last Infusion: 10/28/19 06:00 Dose: Infused Documented by: Sodium Chloride () 250 mls @ 15 mls/hr IV .[id number] PRN PRN Reason: Saline Flush Sodium Chloride () 250 mls @ 15 mls/hr IV .[id number] PRN PRN Reason: Additional IVPB Infusion Ketorolac Tromethamine (Toradol (Bkc)) 30 mg IV Q6H [facility] Stop: 11/01/19 12:01 Last Admin: 10/28/19 06:07 Dose: 30 mg Documented by: Levothyroxine Sodium (Synthroid) 137 mcg PO DAILY@0600 [facility] Last Admin: 10/28/19 06:08 Dose: 137 mcg Documented by: Losartan Potassium (Cozaar) 25 mg PO 1500 [facility] Last Admin: 10/27/19 16:11 Dose: 25 mg Documented by: Ondansetron HCl (Zofran) 4 mg IV Q4H PRN PRN PRN Reason: NAUSEA Oxycodone HCl (Oxyir) 5 mg PO Q4H PRN PRN PRN Reason: Pain Score 4-10/10 Last Admin: 10/28/19 02:11 Dose: 5 mg Documented by: Pantoprazole Sodium (Protonix) 20 mg PO DAILY [facility] Simethicone (Mylicon) 80 mg PO PCHS [facility] Last Admin: 10/27/19 21:36 Dose: 80 mg Documented by: Sodium Chloride () 10 - 40 ml IV UD PRN PRN Reason: SALINE FLUSH Last Admin: 10/28/19 06:08 Dose: 10 ml Documented by: Medical Necessity - Tobacco Use Smoking Status: Former smoker Tobacco Use: Non-smoker Assessment/Plan All Active Problems Anginal equivalent (Acute) Doing well postoperative day #1 status post robotic assisted vaginal hysterectomy and bilateral salpingo-oophorectomy. Will release to home with routine instructions.
[2019-10-28] MEDS: Estrogens,Conj. 0.625 MG Tablet PO (08:34)
[2019-10-28] MEDS: Pantoprazole Sodium 20 MG Tablet PO (08:34)
[2019-10-28] MEDS: Acetaminophen 500 MG Tablet 1000 MG PO (08:34)
[2019-10-28] MEDS: Citalopram 10 MG Tablet 30 MG PO (08:34)
[2019-10-28 08:35] VITALS: BP 123/85; PULSE 91; RESP 16; TEMP 36.8; O2SAT 98
[2019-10-28] MEDS: Ketorolac 10 MG Tablet PO (11:15)
--- NOTE | 2019-10-28 12:22 | PHA.DC.MC ---
Pharmacy Service has performed discharge medication reconciliation and counseling for this patient. 1. ESTRADIOL 1MG PO DAILY 2. OXYCODONE 5MG PO Q6H PRN PAIN 6-/10 X 7 DAYS 3. DOCUSATE 100MG PO BID PRN CONSTIPATION The patient's discharge medication list was reviewed for discrepancies and discrepancies were resolved. Pt instructed to not take tramadol while taking oxycodone. Pt verbalized understanding and clarifies she does not use tramadol often. Home Medications Levothyroxine Sodium [Synthroid] 137 mcg PO DAILY 01/08/19 Citalopram [Celexa] 30 mg PO DAILY 07/31/19 Losartan Potassium 25 mg PO 1500 08/10/19 Tramadol HCl [Ultram] 50 mg PO Q6H PRN 08/31/19 Hydroxyzine Pamoate [Vistaril] 50 mg PO TID PRN PRN 10/20/19 Omeprazole 20 mg PO DAILY 10/20/19 Docusate Sodium [Colace] 100 mg PO BID PRN PRN #60 cap 10/27/19 Estradiol 1 mg PO DAILY #100 tab 10/27/19 Oxycodone [Oxyir] 5 mg PO Q6H PRN PRN 7 Days #20 tab 10/27/19 The patient was counseled on the following discharge medications and changes in medications for homegoing were reviewed. The Reason for Use, instructions for use, and potential side effects were reviewed for all new medications. The patient's questions regarding all of their medications were answered. The patient was able to verbally demonstrate an understanding of their discharge medications.
[2019-10-28 13:20] VITALS: BP 115/73; PULSE 80; RESP 16; TEMP 36.7; O2SAT 98
== END 2019-10-28 13:47 | disposition home or self-care (01) ==
LOC: SDC 06:02 → AC 06:02 → MS3 09:16
PROVIDERS: PCP Family Medicine Geriatric Medicine; Referring Provider Family Medicine Geriatric Medicine; Visit Provider Obstetrics & Gynecology
PROC: 0UT94ZZ Resection of Uterus, Percutaneous Endoscopic Approach (ICD-10-PCS; CPT 58552; principal; 2019-10-27 07:10)
DX: D25.0 Submucous leiomyoma of uterus (principal); N80.0 Endometriosis of uterus; N83.6 Hematosalpinx; N88.8 Other specified noninflammatory disorders of cervix uteri; N83.12 Corpus luteum cyst of left ovary; N83.291 Other ovarian cyst, right side; I20.8 Other forms of angina pectoris; I10 Essential (primary) hypertension; E03.9 Hypothyroidism, unspecified; J45.909 Unspecified asthma, uncomplicated; K21.9 Gastro-esophageal reflux disease without esophagitis; F32.9 Major depressive disorder, single episode, unspecified; F41.9 Anxiety disorder, unspecified; Z79.899 Other long term (current) drug therapy; Z87.891 Personal history of nicotine dependence
CPT/HCPCS: 00944; 58552; S2900; 36415; 82565; 84702; 85027; 85610; 85730; 86850; 86900; 86901; 88307; 99251; J7120; A4216; G0463; J2405

== ENCOUNTER → 2020-01-08 15:16 | Outpatient (CLI) | payer MEDICAID, SELFPAY ==
[2019-10-27 12:19] VITALS: BMI 25.3
[2020-01-08 15:55] LABS: Absolute Lymphocyte Count 2.01 X10^3/uL (0.83-4.51); Absolute Neutrophil Count 4.4 X10^3/uL (2.0-7.7); Basophil# 0.03 X10^3/uL; Basophil% 0.4 % (0-1); Eosinophil# 0.06 X10^3/uL; Eosinophils% 0.9 % (0-5); Hematocrit 38.3 % (37-47); Hemoglobin 12.1 g/dL (12.0-15.0); Lymphocyte # 2.01 X10^3/ul (4.0); Lymphocyte % 28.8 % (19-41); Mean Corp Hgb Conc 31.6 g/dL (32-36); Mean Corpuscular Hgb 30.9 pg (27.0-32.0); Mean Corpuscular Volume 97.7 fL (81-99); Mean Platelet Vol. 10.6 fl (6.2-12.0); Monocyte# 0.48 X10^3/uL; Monocyte% 6.9 % (0-10); NRBC Flagged by Analyzer 0 % (0-5); Neutrophil # 4.39 X10^3/uL (2.7-7.7); Neutrophil % 62.9 % (47-70); Platelet Count 259 K/mm3 (150-450); RBC Distribution Width CV 12.8 % (11.6-14.6); RBC Distribution Width SD 46.1 fl (35.1-43.9); Red Blood Count 3.92 M/mm3 (4.2-5.4)
[2020-01-08 16:08] LABS: ALB/GLOB Ratio 0.8 RATIO (0.9-2.4); AST(SGOT) 18 U/L (15-37); Alanine Aminotransfer ALT/SGPT 21 U/L (13-56); Albumin, Serum 3.2 g/dL (3.2-5.0); Alkaline Phosphatase 70 U/L (45-117); Anion Gap 4 (5-15); BUN 13 mg/dL (7-18); BUN/Creat Ratio 14.5 RATIO (10-20); Calcium,Total 8.8 mg/dL (8.5-10.1); Chloride 106 mmol/L (98-107); Creatinine, Serum 0.89 mg/dL (0.55-1.02); EST Glomerular Filtration Rate 72 mL/min (>60); Est Glom Filt Rate - Afr Amer 87 mL/min (>60); Glucose 75 mg/dL (74-106); Protein, Total 7.2 g/dL (6.4-8.2); Sodium Level 139 mmol/L (136-145); Thyroid Stim Hormone (TSH) 0.02 uIU/mL (0.358-3.74)
== END ==
PROVIDERS: PCP Family Medicine Geriatric Medicine; Visit Provider Family Medicine Geriatric Medicine
DX: I10 Essential (primary) hypertension (principal)
CPT/HCPCS: 36415; 80053; 84443; 85025

== ENCOUNTER 2020-02-29 10:56 | Emergency (ER) | payer MEDICAID, SELFPAY ==
[2019-10-27 12:19] VITALS: BMI 25.3
[2020-02-29 10:58] VITALS: BP 133/101; PULSE 85; RESP 16; TEMP 36.4; O2SAT 100; BMI 24.3
[2020-02-29] MEDS: Tetracaine 0.5% Ophthalmic Bottle 1 DRP LEFT EYE (11:18)
[2020-02-29] MEDS: Fluorescein 1 MG STRIP 1 STRIP LEFT EYE (11:19)
--- NOTE | 2020-02-29 11:31 | ED.VIS.GEN ---
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 but she states her vision is normal, denies trauma or foreign body exposure no URI symptoms no coronavirus exposures does not have a history of conjunctivitis that is common Past Medical History - Allergies and Home Meds Allergies/Adverse Reactions: Allergies milk Allergy (Verified 02/29/20 10:57) Other sumatriptan [From Imitrex] Allergy (Verified 02/29/20 10:57) TUNNEL VISION sumatriptan succinate [From Imitrex] Allergy (Verified 02/29/20 10:57) TUNNEL VISION Primary Care Physician: Bear Meyer Chi, MD [Primary Care Provider] - Past Medical History: - - Fluids as above Surgical History: cholecystectomy, - - Rhinoplasty for deviated septum, bilateral tubal ligation: Knee surgery; carpal tunnel surgery Smoking Status: Former smoker - Family History Maternal Family History: Reports: - - Epilepsy Paternal Family History: Reports: Heart Disease - His father had a permanent pacemaker Review of Systems Eyes: Reports: Visual changes - left Physical Exam Vital Signs/Narrative: Vital Signs Temp Pulse Resp BP Pulse Ox 02/29/20 10:58 97.6 F L 85 16 133/101 H 100 General: Well nourished, Well developed, No Acute Distress Head: Normocephalic, Atraumatic Eyes: Perrl, EOMI, - - Some matting to the lids of the left eye nothing in the right the right eye is unremarkable except for the lateral gaze palsy, left eye pupil reacts well anterior chambers intact, conjunctiva slightly injected, lid flip negative, tetracaine floor seen applied Cesar lamp exam shows no uptake no lesions no foreign bodies, and she is feeling better after the tetracaine ENT: Moist mucous membranes, No rhinorrhea Neck: Supple, Nontender Cardiovascular: Regular rate, Regular rhythm, No murmurs Respiratory: No distress, CTA bilaterally, Chest nontender Abdomen: Soft, Nontender, Nondistended, Normal bowel sounds Back: Nontender, Normal Inspection Extremities: Nontender, No edema Skin: Normal color, No rash Neurological: Alert, Oriented x3, Cranial nerves II-XII grossly intact, Normal Strength, Normal Sensation Psychological: Normal affect, Normal Mood Diagnostic/Tx/Re-eval - Medical Decision Making Agata all the above with her given all of the above visual acuity is normal, she has no symptoms now she will be started erythromycin ointment refer to ophthalmology Home stable Final impression left eye conjunctivitis ED Disposition - Plan for ED Patient: Diagnosis: Conjunctivitis, left eye Instructions: ED Corneal Abrasion, ED Viral Conjunctivitis Prescriptions: Erythromycin Ophthalmic 1 applic LEFT EYE 4X/DAY #1 opth.tube Prescription Printed Referrals: Bear Meyer Chi, MD [Primary Care Provider] - Ismael Giraldo MD [STAFF PHYSICIAN] -
== END 2020-02-29 11:55 | disposition home or self-care (01) ==
LOC: ED 11:34
PROVIDERS: Emergency Provider Emergency Medicine; PCP Family Medicine Geriatric Medicine
DX: H10.9 Unspecified conjunctivitis (principal); Z79.899 Other long term (current) drug therapy; Z87.891 Personal history of nicotine dependence
CPT/HCPCS: 99282

== ENCOUNTER → 2020-03-25 15:10 | Outpatient (CLI) | payer MEDICAID, SELFPAY ==
[2020-02-29 10:58] VITALS: BMI 24.3
[2020-03-25 15:52] LABS: Absolute Lymphocyte Count 1.59 X10^3/uL (0.83-4.51); Basophil# 0.02 X10^3/uL; Basophil% 0.3 % (0-1); Eosinophil# 0.07 X10^3/uL; Hematocrit 39.6 % (37-47); Hemoglobin 12.5 g/dL (12.0-15.0); Lymphocyte # 1.59 X10^3/ul (4.0); Lymphocyte % 22.5 % (19-41); Mean Corp Hgb Conc 31.6 g/dL (32-36); Mean Corpuscular Hgb 30.2 pg (27.0-32.0); Mean Corpuscular Volume 95.7 fL (81-99); Mean Platelet Vol. 11.1 fl (6.2-12.0); Monocyte# 0.41 X10^3/uL; Monocyte% 5.8 % (0-10); NRBC Flagged by Analyzer 0 % (0-5); Neutrophil # 4.96 X10^3/uL (2.7-7.7); Neutrophil % 70.1 % (47-70); Platelet Count 197 K/mm3 (150-450); RBC Distribution Width CV 13.1 % (11.6-14.6); RBC Distribution Width SD 45.1 fl (35.1-43.9); Red Blood Count 4.14 M/mm3 (4.2-5.4); White Blood Count 7.1 K/mm3 (4.4-11.0)
[2020-03-25 16:16] LABS: ALB/GLOB Ratio 0.8 RATIO (0.9-2.4); AST(SGOT) 21 U/L (15-37); Alanine Aminotransfer ALT/SGPT 23 U/L (13-56); Albumin, Serum 3.4 g/dL (3.2-5.0); Alkaline Phosphatase 67 U/L (45-117); Amylase 36 U/L (25-115); Anion Gap 6 (5-15); BUN 11 mg/dL (7-18); BUN/Creat Ratio 11.5 RATIO (10-20); Calcium,Total 9.3 mg/dL (8.5-10.1); Chloride 105 mmol/L (98-107); Creatinine, Serum 0.96 mg/dL (0.55-1.02); EST Glomerular Filtration Rate 66 mL/min (>60); Est Glom Filt Rate - Afr Amer 80 mL/min (>60); Globulin 4.3 g/dL (2.2-4.2); Glucose 88 mg/dL (74-106); Lipase 62 U/L (73-393); Potassium 3.8 mmol/L (3.5-5.1); Protein, Total 7.7 g/dL (6.4-8.2); Sodium Level 137 mmol/L (136-145)
== END ==
PROVIDERS: PCP Family Medicine Geriatric Medicine; Visit Provider Family Medicine Geriatric Medicine
DX: M54.9 Dorsalgia, unspecified (principal); R10.9 Unspecified abdominal pain
CPT/HCPCS: 36415; 80053; 82150; 83690; 85025

== ENCOUNTER → 2020-03-25 15:22 | Outpatient (CLI) | payer MEDICAID, SELFPAY ==
[2020-02-29 10:58] VITALS: BMI 24.3
--- NOTE | 2020-03-25 15:25 | CT_ITS ---
STUDY: CT ABDOMEN AND PELVIS WITH CONTRAST REASON FOR EXAM: Female, 49 years old. LOW ABD PAIN RADIATION DOSAGE (If Supplied By Facility): CTDIvol = ( 14.63 ) mGy, DLP = ( 886.09 ) mGycm TECHNIQUE: Transaxial images were obtained from the dome of the diaphragm to the symphysis pubis without oral contrast. Oral and amp; IV Gastrografin and amp; 100mL Isovue-370 was administered. Sagittal and coronal images were reconstructed. Individualized dose optimization techniques were used for this CT. COMPARISON: Prior study of 03/30/2016 FINDINGS: The visualized lung bases are unremarkable. The visualized portions of the heart are within normal limits. Normal liver. There is non-visualization of the gallbladder, which may be secondary to either contraction or a prior cholecystectomy. Normal spleen. Normal pancreas. Normal bilateral adrenal glands. Normal right kidney. Normal left kidney. Normal visualized stomach. Normal small intestine. There is mild sigmoid diverticulosis with no evidence of associated diverticulitis. The appendix is visualized and appears normal. Normal abdominal aorta. Normal inferior vena cava. Normal retroperitoneum. Normal urinary bladder. There is absence of the uterus consistent with a prior hysterectomy. Normal abdominal wall. Normal osseous structures. CT/Abdomen/Pelvis WITH Contrast IMPRESSION: Nonvisualization of the gallbladder. Mild sigmoid diverticulosis with no evidence of associated diverticulitis. Status post hysterectomy. There is no evidence of free intra-abdominal or intrapelvic air, fluid, or inflammatory process. A left pelvic cystic focus seen on the previous study is not seen at this time. Electronically Signed: Bob Suh MD at 18:28 EDT , Service support ,
== END ==
PROVIDERS: PCP Family Medicine Geriatric Medicine; Referring Provider Family Medicine Geriatric Medicine; Visit Provider Family Medicine Geriatric Medicine
DX: R10.9 Unspecified abdominal pain (principal); M54.9 Dorsalgia, unspecified
CPT/HCPCS: 36415; 74177; 80053; 82150; 83690; 85025; Q9967; A4216

== ENCOUNTER 2020-05-23 15:22 | Emergency (ER) | payer MEDICAID, SELFPAY ==
[2020-05-23 15:22] VITALS: BP 166/93; PULSE 94; RESP 16; TEMP 36.4; O2SAT 100; BMI 27.1
--- NOTE | 2020-05-23 15:46 | ED.VISSUMM ---
- ER Visit Summary Date of Service: 05/23/20 Chief Complaint: Abdominal pain History of Present Illness: The patient is a 49 F presenting with abdominal pain. States this has been ongoing for the past 2 months. She states she has been seen by her primary care physician. She has been referred to Dr. Stone. She is unsure why she is referred to surgery. She states the pain is not worsened with eating. She has had nausea vomiting x1 today. She has been taking naproxen for her pain. She has history of previous cholecystectomy and hysterectomy. Pain is in the epigastric area. Denies blood in her stool or black stool. Denies urinary complaints. Physical Examination: Vitals are stable. Patient is afebrile. Alert no acute distress. HEENT exam is unremarkable. Neck is supple. Lungs are clear and equal bilaterally. Heart is regular rate and rhythm. Abdomen is soft mild epigastric tenderness with no guarding or rebound Extremities are unremarkable. Skin is warm and dry. No focal neurologic deficit. Remainder of exam is unremarkable. Emergency Department Course and Treatment: Patient was given GI cocktail with improvement. CBC, chemistries unremarkable. Liver lipase are normal. Patient states she already takes Protonix. She is given prescription for Carafate. Advised to follow-up with her primary care physician. Advised return to ED for worsening complaints. Disposition: Discharge home Impression: Abdominal pain This note was generated with [employer]PH[employer] dictation software. It may contain incorrect words, spelling, and punctuation that were not noted in review of the chart prior to signing ED Disposition - Plan for ED Patient: Instructions: ED Abdominal Pain Unkn Cause Fem Prescriptions: Sucralfate [Carafate] 1 gm PO BID #14 tab Prescription Printed cycloBENZAPRine HCl [Flexeril] 10 mg PO TID PRN #20 tab PRN Reason: Muscle Spasm Prescription Printed Referrals: Domo Stone MD [STAFF PHYSICIAN] - Bear Meyer Chi, MD [Primary Care Provider] -
[2020-05-23] MEDS: Mag Hydrox/Al Hydrox/Simeth 30 ML UDC PO (16:16)
[2020-05-23] MEDS: Ondansetron 4 MG/2 ML Vial IV (16:28)
[2020-05-23] MEDS: 0.9% Normal Saline 1,000 ML 1000 ML IV (16:28)
[2020-05-23 16:38] LABS: Absolute Lymphocyte Count 1.43 X10^3/uL (0.83-4.51); Absolute Neutrophil Count 7.8 X10^3/uL (2.0-7.7); Basophil# 0.02 X10^3/uL; Basophil% 0.2 % (0-1); Eosinophil# 0.03 X10^3/uL; Eosinophils% 0.3 % (0-5); Hematocrit 40.3 % (37-47); Hemoglobin 13.3 g/dL (12.0-15.0); Lymphocyte # 1.43 X10^3/ul (4.0); Lymphocyte % 14.4 % (19-41); Mean Corpuscular Hgb 31.4 pg (27.0-32.0); Mean Corpuscular Volume 95.3 fL (81-99); Mean Platelet Vol. 10.2 fl (6.2-12.0); NRBC Flagged by Analyzer 0 % (0-5); Neutrophil # 7.83 X10^3/uL (2.7-7.7); Neutrophil % 78.8 % (47-70); Platelet Count 251 K/mm3 (150-450); RBC Distribution Width SD 45.1 fl (35.1-43.9); Red Blood Count 4.23 M/mm3 (4.2-5.4); White Blood Count 9.9 K/mm3 (4.4-11.0)
[2020-05-23 16:57] LABS: ALB/GLOB Ratio 0.9 RATIO (0.9-2.4); AST(SGOT) 16 U/L (15-37); Alanine Aminotransfer ALT/SGPT 22 U/L (13-56); Albumin, Serum 3.7 g/dL (3.2-5.0); Alkaline Phosphatase 74 U/L (45-117); Anion Gap 5 (5-15); BUN 13 mg/dL (7-18); Calcium,Total 9.4 mg/dL (8.5-10.1); Chloride 106 mmol/L (98-107); Creatinine, Serum 0.87 mg/dL (0.55-1.02); EST Glomerular Filtration Rate 74 mL/min (>60); Est Glom Filt Rate - Afr Amer 90 mL/min (>60); Estimated Creatinine Clearance 80.64 ml/min; Globulin 4.2 g/dL (2.2-4.2); Glucose 92 mg/dL (74-106); Lipase 80 U/L (73-393); Potassium 3.8 mmol/L (3.5-5.1); Protein, Total 7.9 g/dL (6.4-8.2); Sodium Level 139 mmol/L (136-145)
--- NOTE | 2020-05-23 17:05 | ED.DEP ---
ED Disposition - Plan for ED Patient: Instructions: ED Abdominal Pain Unkn Cause Fem Prescriptions: Sucralfate [Carafate] 1 gm PO BID #14 tab Prescription Printed cycloBENZAPRine HCl [Flexeril] 10 mg PO TID PRN #20 tab PRN Reason: Muscle Spasm Prescription Printed Referrals: Bear Meyer Chi, MD [Primary Care Provider] - Dmoo Stone MD [STAFF PHYSICIAN] -
[2020-05-23 17:18] VITALS: BP 139/88
== END 2020-05-23 17:23 | disposition home or self-care (01) ==
LOC: ED 16:33
PROVIDERS: Emergency Provider Emergency Medicine; PCP Family Medicine Geriatric Medicine
DX: R10.9 Unspecified abdominal pain (principal); R11.2 Nausea with vomiting, unspecified; I10 Essential (primary) hypertension; E07.9 Disorder of thyroid, unspecified; K21.9 Gastro-esophageal reflux disease without esophagitis; Z79.899 Other long term (current) drug therapy
CPT/HCPCS: 80053; 83690; 85025; 96361; 96374; 99285; J2405

== ENCOUNTER 2020-06-20 10:32 | Emergency (ER) | payer MEDICAID, SELFPAY ==
[2020-05-27 14:27] VITALS: BMI 27.0
[2020-06-20 10:34] VITALS: BP 158/109; PULSE 106; RESP 17; TEMP 36.6; O2SAT 100; BMI 26.9
--- NOTE | 2020-06-20 11:06 | ED.VIS.GEN ---
History of Present Illness Chief Complaint: Nausea/Vomiting Informant: Patient Onset: Weeks Context: Gradual Onset Current Severity: Moderate Maximum Severity: Moderate Narrative: Patient presents with vomiting and abdominal pain. She is been having epigastric abdominal pain for the last 1 to 2 months. She has been vomiting for the past 2 weeks. She states she did have 3 episodes of vomiting today and now has some epigastric pain. She has not had fever or chills. No diarrhea. She is scheduled for a scope in [address] Stone. She is currently on Carafate and Protonix. She is not on any antiemetics. - Past Medical History (1) Anxiety Status: Chronic (2) GERD (gastroesophageal reflux disease) Status: Chronic (3) Hypertension Status: Chronic (4) Hypothyroidism Status: Chronic Past Medical History - Allergies and Home Meds Allergies/Adverse Reactions: Allergies milk Allergy (Verified 06/20/20 10:34) Other sumatriptan [From Imitrex] Allergy (Verified 06/20/20 10:34) TUNNEL VISION sumatriptan succinate [From Imitrex] Allergy (Verified 06/20/20 10:34) TUNNEL VISION Primary Care Physician: Bear Meyer Chi, MD [Primary Care Provider] - Surgical History: cholecystectomy, - - Rhinoplasty for deviated septum, bilateral tubal ligation: Knee surgery; carpal tunnel surgery Lives: Spouse/ Significant Other Smoking Status: Former smoker - Family History Maternal Family History: Reports: - - Epilepsy Paternal Family History: Reports: Heart Disease - His father had a permanent pacemaker Review of Systems General: Denies: Chills, Fever Eyes: Denies: Visual changes - bilaterally ENT: Denies: Bilateral ear pain Cardiovascular: Denies: Chest pain Respiratory: Denies: Dyspnea, Cough Gastrointestinal: Reports: Abdominal pain, Nausea, Vomiting. Denies: Diarrhea Genitourinary: Denies: Dysuria Musculoskeletal: Denies: Extremity Pain Neurological: Denies: Headache Hematologic: Denies: Easy bruising, Easy bleeding Allergy: Denies: Uticaria Physical Exam Vital Signs/Narrative: Vital Signs Temp Pulse Resp BP Pulse Ox 06/20/20 10:34 97.9 F 106 H 17 158/109 H 100 Inital Vital Signs reviewed: Yes General: Well nourished, Well developed Head: Normocephalic ENT: Moist mucous membranes Neck: Supple Cardiovascular: Regular rate, Regular rhythm Respiratory: No distress, CTA bilaterally Abdomen: Soft, Tender - Mild epigastric tenderness to palpation.. Negative for: Guarding, Rebound tenderness Skin: Normal color Neurological: Alert, Oriented x3 Psychological: Normal affect Diagnostic/Tx/Re-eval Laboratory Results 06/20/20 06/20/20 06/20/20 11:13 11:30 11:30 WBC 8.4 RBC 4.37 Hgb 13.4 Hct 40.4 MCV 92.4 MCH 30.7 MCHC 33.2 RDW Std Deviation 41.2 RDW Coeff of Dylon 12.2 Plt Count 246 MPV 10.1 Immature Gran % (Auto) 0.200 Neut % (Auto) 67.2 Lymph % (Auto) 25.8 [place] % (Auto) 6.1 Eos % (Auto) 0.5 Baso % (Auto) 0.2 Absolute Neuts (auto) 5.6 Absolute Lymphs (auto) 2.17 Nucleated RBC % 0 Sodium 140 Potassium 3.9 Chloride 108 H Carbon Dioxide 26.0 Anion Gap 6 BUN 10 Creatinine 0.91 Estim Creat Clear Calc 77.10 Est GFR (MDRD) Af Amer 85 Est GFR (MDRD) Non-Af 71 BUN/Creatinine Ratio 11.0 Glucose 90 Calcium 9.2 Total Bilirubin 0.30 Direct Bilirubin 0.09 AST 25 ALT 19 Alkaline Phosphatase 68 Total Protein 7.5 Albumin 3.5 Globulin 4.0 Lipase 61 L Urine Color Yellow Urine Clarity Clear Urine pH 7.0 Ur Specific [place] 1.030 Urine Protein Negative Urine Glucose (UA) Normal Urine Ketones 5 H Urine Occult Blood Negative Urine Nitrite Negative Urine Bilirubin Negative Urine Urobilinogen Normal Ur Leukocyte Esterase 100 H Urine RBC 0 SEEN Urine WBC 0-5 SEEN Ur Squamous Epith Cells 0-5 SEEN Urine Bacteria 1+ Urine Mucus 0 SEEN - Medical Decision Making She was given IV fluids and Phenergan. On repeat evaluation she does feel improved. Although she has had vomiting for the past 2 weeks has not been on any antiemetics. She be written for both Zofran and Phenergan to use. She will follow with Dr. tSone as scheduled for upcoming scope. ED Disposition - Plan for ED Patient: Disposition: Home or Assisted Living Diagnosis: Vomiting Instructions: ED Vomiting (Adult) Prescriptions: proMETHazine tablet [Phenergan] 25 mg PO Q6H PRN PRN #10 tab PRN Reason: Nausea Transmission Status: Pending to [facility] Ondansetron [Zofran Odt] 4 mg PO Q8H PRN PRN #10 tab PRN Reason: Nausea Transmission Status: Pending to [facility] Referrals: Bear Meyer Chi, MD [Primary Care Provider] - Domo Stone MD [STAFF PHYSICIAN] - Keep [place] appointment
[2020-06-20 11:19] LABS: Mucous, Urine 0 SEEN /hpf (<or=2+); Red Blood Cells-Urine 0 SEEN /hpf (0-5)
[2020-06-20 11:28] LABS: Color, Urine Yellow (Yellow); Glucose, Dipstick Normal (Normal); Ketone-Dipstick 5 mg/dl (Negative); Leukocyte Esterase-Dipstick 100 /ul (Negative); Nitrite-Dipstick Negative (Negative); Occult Blood-Urine Negative /ul (Negative); Protein-Dipstick Negative (Negative); Urine Bilirubin Dipstick Negative (Negative); Urine Clarity Clear (Clear); Urine Urobilinogen Normal (Normal)
[2020-06-20] MEDS: 0.9% Normal Saline 1,000 ML 1000 ML IV (11:34)
[2020-06-20] MEDS: proMETHazine 25 MG/ML Syringe 12.5 MG IV (11:35)
[2020-06-20 11:44] LABS: Absolute Lymphocyte Count 2.17 X10^3/uL (0.83-4.51); Absolute Neutrophil Count 5.6 X10^3/uL (2.0-7.7); Basophil# 0.02 X10^3/uL; Basophil% 0.2 % (0-1); Eosinophil# 0.04 X10^3/uL; Eosinophils% 0.5 % (0-5); Hematocrit 40.4 % (37-47); Hemoglobin 13.4 g/dL (12.0-15.0); Lymphocyte # 2.17 X10^3/ul (4.0); Lymphocyte % 25.8 % (19-41); Mean Corp Hgb Conc 33.2 g/dL (32-36); Mean Corpuscular Hgb 30.7 pg (27.0-32.0); Mean Corpuscular Volume 92.4 fL (81-99); Mean Platelet Vol. 10.1 fl (6.2-12.0); Monocyte# 0.51 X10^3/uL; Monocyte% 6.1 % (0-10); NRBC Flagged by Analyzer 0 % (0-5); Neutrophil # 5.64 X10^3/uL (2.7-7.7); Neutrophil % 67.2 % (47-70); Platelet Count 246 K/mm3 (150-450); RBC Distribution Width CV 12.2 % (11.6-14.6); RBC Distribution Width SD 41.2 fl (35.1-43.9); Red Blood Count 4.37 M/mm3 (4.2-5.4); White Blood Count 8.4 K/mm3 (4.4-11.0)
[2020-06-20 11:44] LABS: Bacteria 1+ /hpf (None Seen); Squamous Epithelial Cells - UA 0-5 SEEN /hpf (5-10); White Blood Cells 0-5 SEEN /hpf (0-5)
[2020-06-20 11:54] LABS: AST(SGOT) 25 U/L (15-37); Alanine Aminotransfer ALT/SGPT 19 U/L (13-56); Albumin, Serum 3.5 g/dL (3.2-5.0); Alkaline Phosphatase 68 U/L (45-117); Anion Gap 6 (5-15); BUN 10 mg/dL (7-18); Bilirubin, Direct 0.09 mg/dL (0.00-0.30); Calcium,Total 9.2 mg/dL (8.5-10.1); Chloride 108 mmol/L (98-107); Creatinine, Serum 0.91 mg/dL (0.55-1.02); EST Glomerular Filtration Rate 71 mL/min (>60); Est Glom Filt Rate - Afr Amer 85 mL/min (>60); Glucose 90 mg/dL (74-106); Lipase 61 U/L (73-393); Potassium 3.9 mmol/L (3.5-5.1); Protein, Total 7.5 g/dL (6.4-8.2); Sodium Level 140 mmol/L (136-145)
[2020-06-20 12:17] VITALS: BP 145/82; PULSE 69; RESP 16; O2SAT 100
== END 2020-06-20 12:18 | disposition home or self-care (01) ==
PROVIDERS: Emergency Provider Emergency Medicine; PCP Family Medicine Geriatric Medicine
DX: R11.2 Nausea with vomiting, unspecified (principal); R10.9 Unspecified abdominal pain; I10 Essential (primary) hypertension; E03.9 Hypothyroidism, unspecified; K21.9 Gastro-esophageal reflux disease without esophagitis; F41.9 Anxiety disorder, unspecified; Z79.899 Other long term (current) drug therapy; Z87.891 Personal history of nicotine dependence
CPT/HCPCS: 80048; 80076; 81001; 83690; 85025; 96361; 96374; 99284; J7030

== ENCOUNTER → 2020-07-06 17:17 | Outpatient (CLI) | payer MEDICAID, SELFPAY ==
[2020-06-20 10:34] VITALS: BMI 26.9
== END ==
PROVIDERS: PCP Family Medicine Geriatric Medicine; Visit Provider Anesthesiology
DX: Z00.00 Encounter for general adult medical examination without abnormal findings (principal)
CPT/HCPCS: C9803

== ENCOUNTER 2020-07-07 09:12 | Day surgery (SDC) | payer MEDICAID, SELFPAY ==
[2020-05-27 14:27] VITALS: BMI 27.0
[2020-07-07] VITALS (7 sets, daily range): BP systolic 131–147; BP diastolic 84–98; PULSE 64–77; RESP 16–18; TEMP 36.1–36.6; O2SAT 96–100; BMI 26.6
--- NOTE | 2020-07-07 09:59 | HP.PCM_ITS ---
History and Physical Date of Admission: 07/07/20 MR#: [id number] Acct: [id number] Patient: HELEN PETTIT Rep #: [id number] : 1970 Provider: Dr. Anil Stone MD Age/Sex: 49/F Location: [facility] Status: Signed Intake Vital Signs 05/27/20 Height 5 ft 8 in 05/27/20 Weight: 178 lb Intake Visit Reasons: PHONE VISIT, EGD/ EPIGASTRIC PAIN Chief Complaint: egd Laminated [employer] Required: No Is patient in pain?: Yes (epigastric) Allergies milk Allergy (Verified 05/27/20 14:28) Other sumatriptan [From Imitrex] Allergy (Verified 05/27/20 14:28) TUNNEL VISION sumatriptan succinate [From Imitrex] Allergy (Verified 05/27/20 14:28) TUNNEL VISION Medications Levothyroxine Sodium [Synthroid] 125 mcg PO DAILY 01/08/19 [History Confirmed 05/27/20] Citalopram [Celexa] 30 mg PO DAILY 07/31/19 [History Confirmed 05/27/20] Losartan Potassium 25 mg PO 1500 08/10/19 [History Confirmed 05/27/20] Estradiol 1 mg PO DAILY #100 tab 10/27/19 [Rx Confirmed 05/27/20] Pantoprazole Sodium [Protonix] 40 mg PO DAILY 05/23/20 [History Confirmed 05/27/20] Sucralfate [Carafate] 1 gm PO BID #14 tab 05/23/20 [Rx Confirmed 05/27/20] cycloBENZAPRine HCl [Flexeril] 10 mg PO TID PRN #20 tab 05/23/20 [Rx Confirmed 05/27/20] PFSH Medical History (Updated 06/03/20 @ 16:[address] Domo Stone MD) Hypothyroidism (Chronic) Hypertension (Chronic) GERD (gastroesophageal reflux disease) (Chronic) Anxiety (Chronic) Anginal equivalent (Acute) Surgical History (Updated 05/27/20 @ 14:30 by Yumiko Smith) S/P correction of deviated nasal septum (Acute) S/P hysterectomy (Acute) S/P laparoscopic cholecystectomy (Acute) S/P left knee surgery (Acute) S/P tubal ligation (Acute) S/P wisdom tooth extraction (Acute) Social History (Updated 06/03/20 @ 16:[address] Domo Stone MD) Smoking Status: Former smoker HPI HPI Chief Complaint: egd Details: Patient was informed that this visit will be billed to patient. This visit was conducted during - pandemic. HELEN PETTIT, is a 49 F who presents For A phone consultation. Patient was seen in [facility]'s emergency department on 05/23/2020. She has been having constant pain in her epigastric area started in September and has been gradually getting worse over the last 6 months. She states that her pain is not worse with eating she has had some nausea and vomiting on occasion. She has been taking naproxen for her discomfort she has had a history of a previous cholecystectomy and hysterectomy. She denies any blood in her stool or melanotic stools. She is not complaining of any urinary symptoms. ROS Const Constitutional: No anorexia, body ache, chills, excessive sweating, fatigue, fever(s), frequent falls, headache(s), decreased energy, malaise, night sweats, snoring, weakness, weight change, sleep problems, abnormal sleep pattern, change in appetite or other Eyes Eyes: No blurry vision, change in vision, double vision, discharge, dry eyes, bulging eyes, floaters, visual disturbances, eye pain, light sensitivity, spots in vision, tunnel vision or other ENT ENT: No abnormal hearing, ear pain, ear discharge, ear pressure, hearing loss, tinnitus, dizziness/vertigo, balance problems, nosebleed/epistaxis, nasal congestion, nasal obstruction, nose pain, sinus pressure, sinus pain, nasal discharge, post nasal drip, headache(s), facial pain, dental pain, dry mouth, difficulty swallowing, bad breath, hoarseness, lip swelling, mouth lesions, mouth pain, neck pain, sore throat, tongue swelling, throat swelling or other Resp Respiratory: No cough, change in phlegm color, chest congestion, excessive phlegm production, hemoptysis, pain on inspiration, shortness of breath, pain with cough, snoring, stridor, wheezing or other Cardio Cardiology: No chest pain at rest, chest pain with exertion, leg pain with exertion, excessive sweating, shortness of breath, dyspnea on exertion, generalized swelling, irregular heart rhythm, lightheadedness, orthopnea, radiating jaw, neck or arm pain, fast heart rate, slow heart rate, palpitations or other Gastro GI: Positive for heartburn and vomiting; no abdominal pain, belching, bloating, change in bowel habits, change in stool character, coffee ground emesis, constipation, cramping, diarrhea, difficulty swallowing, feeling full early, excessive flatus, incontinent of stools, Vomiting blood/hematemesis, blood in stool, loose stools, Black,tarry stools, nausea/dyspepsia, pain with swallowing or other Genitourinary-Female: No difficulty urinating, burning urination, painful urination, urinary incontinence, urinary frequency, urinary urgency, urinary hesitancy, urinary retention, blood in urine, Frequent nighttime urination/ nocturia, post void dribbling, suprapubic fullness, side pain, sexual problems, genital lesions, genital itching, hot flashes, abnormal periods, abnormal vaginal bleeding, absent period, painful periods, light periods, heavy periods, difficulty getting , painful intercourse, pelvic pain, vaginal dryness, vaginal odor, Vaginal Itching or other Musc Musculoskeletal: No abnormal walking, joint pain, back pain, deformity, joint swelling, limited range of motion, loss of height, muscle cramps, muscle weakness, decreased muscle mass, body aches, neck pain, numbness, radiating pain into limb, stiffness, tingling or other Skin Skin: No acne, hair loss, change in hair, nail changes, boil, change in skin color, dry skin, redness, excessive hair growth, yellowing of the skin, lesions, itching, rash, skin pain, skin ulcer, sores, skin swelling, wounds or other Breast Breast: No change in breast shape, breast lump, breast pain, breast skin changes, breast swelling, nipple discharge or other Neuro Neurology: No abnormal walking, abnormal hearing, abnormal movements, abnormal speech, behavioral changes, confusion, unsteady gait/balance, dizziness, weakness, frequent falls, headache(s), lack of coordination, loss of vision, memory loss, numbness, tingling, visual disturbances, restless legs, fainting, tremor(s) or other Psych Psychiatric: No abnormal sleep pattern, No lack of enjoyment, No anxiety, No behavioral changes, No change in appetite, No confusion, No depression, No difficulty concentrating, No hopelessness, No irritability, No memory loss, No mood swings, No panic attacks, No paranoia, No Thoughts of harming yourself/Others, No hallucinations, No other Endo Endocrine: No change in body appearance, cold intolerance, excessive sweating, fatigue, flushing, heat intolerance, increased thirst/drinking, increased hunger, increased urination or other Aller/Imm Allergy/Immunologic: No food intolerance, itchy eyes, lip swelling, seasonal allergy symptoms, throat swelling, tongue swelling, hives, wheezing or other Wilbur/Lymp Hematologic/Lymphatic: No easy bleeding, easy bruising, enlarged lymph nodes or other Exam Musc Musculoskeletal: No muscle weakness Details: Details:: Exam was limited due to phone visit with no video. Quality Reporting Medication Reconciliation ([facility] 68) citalopram 30 mg PO DAILY cyclobenzaprine 10 mg PO TID PRN estradiol 1 mg PO DAILY levothyroxine 125 mcg PO DAILY losartan 25 mg PO 1500 pantoprazole 40 mg PO DAILY sucralfate 1 GM PO BID Tobacco Screening ([facility] 138) Smoking Status: Former smoker Assessment & Plan Problems 1. Gastroesophageal reflux disease, unspecified whether esophagitis present K21.9 2. Epigastric pain R10.13 Plan I have discussed the above with the patient. I have offered the patient esophagogastroduodenoscopy for evaluation. I have explained the risks/benefits of the procedure and described the procedure. I have discussed the risks with the patient, including but not agrawal ited to: infection, bleeding, perforation of the GI tract requiring emergency surgery, inability to complete the procedure, injury to any internal organs, complications of anesthesia, etc. - the patient understands and agrees to proceed. I have answered all the patient's questions to the patient's satisfaction and the patient has no further questions. The patient has been given instructions for the colon cleansing preparation. Coding Level of Care Code Level 1 Telephone Diagnoses Gastroesophageal reflux disease, unspecified whether esophagitis present K21.9 ??Esophagitis presence: esophagitis presence not specified Epigastric pain R10.13 Time Spent (min) 10 I have re-examined the patient. There are no clinical changes since date of exam.
[2020-07-07] MEDS: Lactated Ringers 1,000 ML 100 ML IV (10:02)
--- NOTE | 2020-07-07 10:15 | EGD_PTH ---
PATIENT: HELEN PETTIT LOC: EN U#:[id number] AGE/SX: 50/F ROOM: RE07/07/[address]: Dr. Domo Stone MD : 1970 BED: DIS: 07/07/2020 SPEC #: [id number] RECD: 07/07/20 10:53 STATUS: RONAK EARL #: [id number] HALEY: 07/07/20 10:[address]: Domo Stone DEPT: SURGICAL PATHOLOGY RECD BY: Jaclyn Hernandez ENTERED: 07/07/20 12:58 SP TYPE: EGD BIOPSY OT DR: Dr. Bear Meyer MD Tissues: A - Small intestine biopsy B - Gastric mucous membrane Procedures: Surgery Specimen Level IV HEADER OPERATION[place] DIAGNOSIS: GERD, epigastric pain TISSUE SUBMITTED: A - Biopsy small intestine, B - Antrum biopsy for H. pylori and path MICROSCOPIC DIAGNOSIS A. Small intestine, biopsy: Fragments of duodenal mucosa, no pathologic diagnosis. B. Antrum biopsy: Mild gastritis. See microscopic description and comment. ELSY:aurelia 07/08/2020 COMMENT B. The results of immunohistochemistry for Helicobacter pylori will be reported separately ([id number]). MICROSCOPIC DESCRIPTION Slides are reviewed. B. The specimen shows fragments of gastric mucosa with chronic inflammatory cell infiltrates in the lamina propria consisting of lymphocytes and plasma cells, consistent with mild chronic gastritis. GROSS DESCRIPTION A - Received in fixative is one container labeled with the patient's name and designated biopsy small intestine. The specimen consists of two irregular fragments of light luis soft tissue that in aggregate measure 0.6 x 0.6 x 0.1 cm. The specimen is totally submitted in one cassette. B - Received in fixative is one container labeled with the patient's name and designated antrum biopsy. The specimen consists of multiple irregular fragments of light luis soft tissue that in aggregate measure 0.7 x 0.5 x 0.1 cm. The specimen is totally submitted in one cassette. / AM:aurelia 07/07/20 TC:3 CPT: 33256 x2
--- NOTE | 2020-07-07 10:15 | IMM_PTH ---
PATIENT: HELEN PETTIT LOC: EN U#:[id number] AGE/SX: 50/F ROOM: RE07/07/[address]: Dr. Domo Stone MD : 1970 BED: DIS: 07/07/2020 SPEC #: [id number] RECD: 07/07/20 13:54 STATUS: RONAK REQ #: [id number] HALEY: 07/07/20 10:[address]: Domo Stone DEPT: IMMUNOHISTOCHEMISTRY RECD BY: Cathleen Coelho ENTERED: 07/07/20 13:55 SP TYPE: IMMUNO OTHR DR: Dr. Bear Meyer MD Tissues: B - Stomach, NOS Procedures: H Pylori (initial) PHYSICIAN & INSTITUTION [place] [address] SPECIMEN INFORMATION: Tissue Source: B - Antrum biopsy Clinical Info: GERD, epigastric pain Specimen Number: [id number] CPT code: 47578 METHODOLOGY: Deparaffinized sections of prefer/formalin-fixed tissue or PAP/DQ stained slides are incubated with monoclonal/polyclonal antibodies/oligonucleotide probes. Localization is made via biotin free immunoperoxidase method. Appropriate controls are performed and reacted as expected. Results on target cell population are indicated in the following table: RESULTS: ANTIBODY / CLONE RESULT Block B H Pylori (polyclonal) negative These tests were developed and their performance characteristics determined by [facility]. They may not have been cleared or approved by the U.S. Food and Drug Administration. The FDA has determined that such clearance or approval is not necessary. INTERPRETATION: B. Antrum, biopsy: Negative for Helicobacter pylori organisms. SJ:aurelia 07/08/2020
--- NOTE | 2020-07-07 13:54 | OP.CCLET_ITS ---
07/07/2020 Bear Meyer MD [address] [place] [address] Re : Upper GI endoscopy procedure for Louise Roland Dear Dr. Meyer This procedure was performed on Tuesday, July 07, 2020. My impressions and recommendations are as follows: Impressions : - Normal esophagus. No specimens collected. - Normal stomach. Biopsied. - Normal examined duodenum. Biopsied. Recommendations : - Await pathology results. - Repeat upper endoscopy at appointment to be scheduled for surveillance. - Telephone my office for pathology results in 1 week. - Continue present medications. - The amount of discomfort that the patient is experiencing is out of proportion to what we are identifying with in the esophagus and stomach at this time. I do not think her discomfort is related to a GI source based upon what I see on her upper endoscopy. My findings are described in the full procedure note, which is enclosed. If I can be of further assistance, please feel free to contact me at Doctor phone number(s): , Fax: [phone], Work: . Sincerely, MD Domo Vaca MD 07/07/2020 10:28:05 AM This report has been signed electronically.
--- NOTE | 2020-07-07 13:54 | OP.EGD_ITS ---
Patient Name: Louise Roland Procedure Date: 07/07/2020 10:01 AM Date of : 1970 Age: 50 Procedure: Upper GI endoscopy Indications: Epigastric abdominal pain, Gastro-esophageal reflux disease Providers: Domo Stone MD Referring MD: Bear Meyer MD Medicines: See the Anesthesia note for documentation of the administered medications Patient Profile: This is a 50 year old female. Refer to note in patient chart for documentation of history and physical. Complications: No immediate complications. Procedure: Pre-Anesthesia Assessment: - Prior to the procedure, a History and Physical was performed, and patient medications and allergies were reviewed. The patient's tolerance of previous anesthesia was also reviewed. The risks and benefits of the procedure and the sedation options and risks were discussed with the patient. All questions were answered, and informed consent was obtained. Prior Anticoagulants: The patient has taken no previous anticoagulant or antiplatelet agents. ASA Grade Assessment: II - A patient with mild systemic disease. After reviewing the risks and benefits, the patient was deemed in satisfactory condition to undergo the procedure. After obtaining informed consent, the endoscope was passed under direct vision. Throughout the procedure, the patient's blood pressure, pulse, and oxygen saturations were monitored continuously. The gastroscope was introduced through the mouth, and advanced to the second part of duodenum. The upper GI endoscopy was accomplished without difficulty. The patient tolerated the procedure well. Scope In: 10:19:52 AM Scope Out: 10:22:56 AM Total Procedure Duration Time 0 hours 3 minutes 4 seconds Findings: The examined esophagus was normal. No biopsies or other specimens were collected for this exam. The entire examined stomach was normal. Biopsies were taken with a cold forceps for Helicobacter pylori testing. The examined duodenum was normal. Biopsies for histology were taken with a cold forceps for evaluation of celiac disease. Impression: - Normal esophagus. No specimens collected. - Normal stomach. Biopsied. - Normal examined duodenum. Biopsied. Recommendation: - Await pathology results. - Repeat upper endoscopy at appointment to be scheduled for surveillance. - Telephone my office for pathology results in 1 week. - Continue present medications. - The amount of discomfort that the patient is experiencing is out of proportion to what we are identifying with in the esophagus and stomach at this time. I do not think her discomfort is related to a GI source based upon what I see on her upper endoscopy. Procedure Code(s): --- Professional --- 66829, Esophagogastroduodenoscopy, flexible, transoral; with biopsy, single or multiple Diagnosis Code(s): --- Professional --- R10.13, Epigastric pain K21.9, Gastro-esophageal reflux disease without esophagitis CPT copyright 2017 [employer]. All rights reserved. The codes documented in this report are preliminary and upon cloth piecer review may be revised to meet current compliance requirements. MD Domo Vaca MD 07/07/2020 10:28:05 AM This report has been signed electronically. Number of Addenda: 0 Note Initiated On: 07/07/2020 10:01 AM
== END 2020-07-07 11:14 | disposition home or self-care (01) ==
LOC: EN 09:14 → AC 09:14
PROVIDERS: PCP Family Medicine Geriatric Medicine; Referring Provider Family Medicine Geriatric Medicine; Visit Provider Surgery
PROC: 0DJ08ZZ Inspection of Upper Intestinal Tract, Via Natural or Artificial Opening Endoscopic (ICD-10-PCS; CPT 43235; principal; 2020-07-07 10:10)
DX: K29.50 Unspecified chronic gastritis without bleeding (principal); R10.13 Epigastric pain; K21.9 Gastro-esophageal reflux disease without esophagitis; I10 Essential (primary) hypertension; E03.9 Hypothyroidism, unspecified; F41.9 Anxiety disorder, unspecified; Z87.891 Personal history of nicotine dependence; Z90.710 Acquired absence of both cervix and uterus
CPT/HCPCS: 43239; 87426; 88305; 88342; J7120; J2405

== ENCOUNTER → 2020-07-08 14:18 | Outpatient (CLI) | payer MEDICAID, SELFPAY ==
[2020-07-07 09:46] VITALS: BMI 26.6
[2020-07-08 17:53] LABS: Absolute Lymphocyte Count 2.25 X10^3/uL (0.83-4.51); Absolute Neutrophil Count 6.7 X10^3/uL (2.0-7.7); Basophil# 0.02 X10^3/uL; Basophil% 0.2 % (0-1); Eosinophil# 0.04 X10^3/uL; Eosinophils% 0.4 % (0-5); Hematocrit 40.1 % (37-47); Hemoglobin 13.1 g/dL (12.0-15.0); Lymphocyte # 2.25 X10^3/ul (4.0); Lymphocyte % 23.6 % (19-41); Mean Corp Hgb Conc 32.7 g/dL (32-36); Mean Corpuscular Hgb 30.8 pg (27.0-32.0); Mean Corpuscular Volume 94.1 fL (81-99); Mean Platelet Vol. 11.5 fl (6.2-12.0); Monocyte# 0.49 X10^3/uL; Monocyte% 5.1 % (0-10); NRBC Flagged by Analyzer 0 % (0-5); Neutrophil # 6.72 X10^3/uL (2.7-7.7); Neutrophil % 70.4 % (47-70); Platelet Count 267 K/mm3 (150-450); RBC Distribution Width CV 12.6 % (11.6-14.6); Red Blood Count 4.26 M/mm3 (4.2-5.4); White Blood Count 9.6 K/mm3 (4.4-11.0)
[2020-07-08 18:23] LABS: ALB/GLOB Ratio 0.8 RATIO (0.9-2.4); AST(SGOT) 33 U/L (15-37); Alanine Aminotransfer ALT/SGPT 23 U/L (13-56); Albumin, Serum 3.5 g/dL (3.2-5.0); Alkaline Phosphatase 87 U/L (45-117); Anion Gap 9 (5-15); BUN 8 mg/dL (7-18); BUN/Creat Ratio 8.2 RATIO (10-20); Calcium,Total 9.1 mg/dL (8.5-10.1); Chloride 106 mmol/L (98-107); Creatinine, Serum 0.98 mg/dL (0.55-1.02); EST Glomerular Filtration Rate 65 mL/min (>60); Est Glom Filt Rate - Afr Amer 78 mL/min (>60); Globulin 4.5 g/dL (2.2-4.2); Glucose 80 mg/dL (74-106); Potassium 4.2 mmol/L (3.5-5.1); Sodium Level 139 mmol/L (136-145); Thyroid Stim Hormone (TSH) 6.14 uIU/mL (0.358-3.74)
== END ==
PROVIDERS: PCP Family Medicine Geriatric Medicine; Visit Provider Family Medicine Geriatric Medicine
DX: I10 Essential (primary) hypertension (principal)
CPT/HCPCS: 36415; 80053; 84443; 85025

== ENCOUNTER → 2020-07-22 | Outpatient (CLI) | payer MEDICAID, SELFPAY | END | disposition home or self-care (01) | LOC: LABSPEC 16:52 | PROVIDERS: PCP Family Medicine Geriatric Medicine; Visit Provider Family Medicine Geriatric Medicine | DX: N39.0 Urinary tract infection, site not specified (principal) | CPT/HCPCS: 87086; 87088 ==

== ENCOUNTER 2020-09-03 21:37 | Emergency (ER) | payer MEDICAID, SELFPAY ==
[2020-09-03 21:38] VITALS: BP 129/83; PULSE 104; RESP 16; TEMP 35.5; O2SAT 99; BMI 25.8
--- NOTE | 2020-09-03 22:07 | ED.VIS.GEN ---
History of Present Illness Chief Complaint: Back Informant: Patient Onset: Today Narrative: Noted red spot on her right lateral mid back today. States mildly tender. Denies any itching. No fevers. Concerns of shingles. Has been dealing with mid back pain for a while recently saw a new PCP 2 days ago. Started on Flexeril and naproxen. She has been seeing a chiropractor twice a month states gets manipulated with improving symptoms are transient. No urinary symptoms. Prior similar symptoms: No Past Medical History - Allergies and Home Meds Allergies/Adverse Reactions: Allergies milk Allergy (Verified 09/03/20 21:40) Other sumatriptan [From Imitrex] Allergy (Verified 09/03/20 21:40) TUNNEL VISION sumatriptan succinate [From Imitrex] Allergy (Verified 09/03/20 21:40) TUNNEL VISION Primary Care Physician: Bear Meyer Chi, MD [COURTESY STAFF PHYSICIAN] - Past Medical History: - - Chronic back pain, hypertension, hypothyroidism, GERD Surgical History: cholecystectomy, - - Rhinoplasty for deviated septum, bilateral tubal ligation: Knee surgery; carpal tunnel surgery Smoking Status: Former smoker - Family History Maternal Family History: Reports: - Paternal Family History: Reports: Heart Disease Review of Systems General: Denies: Chills, Fever, Sweats Eyes: Denies: Visual changes - bilaterally, Diplopia ENT: Denies: Rhinorrhea, Sore throat Cardiovascular: Denies: Chest pain, Palpitations Respiratory: Denies: Dyspnea, Cough, Dyspnea on exertion Gastrointestinal: Denies: Abdominal pain, Nausea, Vomiting, Diarrhea, Melena, Hematochezia Genitourinary: Denies: Dysuria, Hematuria, Frequency Musculoskeletal: Reports: Back pain. Denies: Extremity Pain Skin: Reports: Rash. Denies: Wounds Neurological: Denies: Headache, Weakness, Numbness Physical Exam Vital Signs/Narrative: Vital Signs Temp Pulse Resp BP Pulse Ox 09/03/20 21:38 96 F L 104 H 16 129/83 H 99 Inital Vital Signs reviewed: Yes General: Well nourished, Well developed, No Acute Distress Head: Normocephalic, Atraumatic Eyes: Perrl, EOMI ENT: Moist mucous membranes, No rhinorrhea Neck: Supple, Nontender Cardiovascular: Regular rate, Regular rhythm, No murmurs Respiratory: No distress, CTA bilaterally, Chest nontender Abdomen: Soft, Nontender, Nondistended, Normal bowel sounds Back: Normal Inspection, - - No midline tenderness, there is somatic dysfunction mid thoracic T10-T11. There is a small patch of erythema right lateral flank with area abrasion just lateral to this. There is no induration fluctuance or drainage. No vesicles noted. No crepitus. Extremities: Nontender, No edema Skin: Normal color, No rash Neurological: Alert, Oriented x3, Cranial nerves II-XII grossly intact, Normal Strength, Normal Sensation Psychological: Normal affect, Normal Mood Diagnostic/Tx/Re-eval - Medical Decision Making Patient nontoxic vital signs stable. Her area of erythema nonspecific dermatitis at this time. There is an abrasion noted in the vicinity. No signs of infection currently. Discussed monitoring symptoms. Discussed monitoring for vesicles that could be shingles however currently clinically does not fit the description. Her thoracic complaints are being managed by her chiropractor and her PCP. To continue her medications and follow-up as an outpatient. ED Disposition - Plan for ED Patient: Disposition: Home or Assisted Living Diagnosis: Dermatitis, Abrasion Additional Instructions: Your erythema area is nonspecific at this time there is small abrasion in the area. Monitor for vesicles or any worsening symptoms.
== END 2020-09-03 22:16 | disposition home or self-care (01) ==
PROVIDERS: Emergency Provider Emergency Medicine; PCP Family Medicine
DX: L30.9 Dermatitis, unspecified (principal); S20.411A Abrasion of right back wall of thorax, initial encounter; X58.XXXA Exposure to other specified factors, initial encounter; Y93.9 Activity, unspecified; Y92.9 Unspecified place or not applicable; Y99.9 Unspecified external cause status; M99.02 Segmental and somatic dysfunction of thoracic region; I10 Essential (primary) hypertension; E03.9 Hypothyroidism, unspecified; M54.9 Dorsalgia, unspecified; G89.29 Other chronic pain; K21.9 Gastro-esophageal reflux disease without esophagitis; Z79.899 Other long term (current) drug therapy; Z87.891 Personal history of nicotine dependence
CPT/HCPCS: 99282

== ENCOUNTER 2020-10-14 15:41 | Emergency (ER) | payer MEDICAID, SELFPAY ==
[2020-10-14 15:41] VITALS: BP 180/106; PULSE 114; RESP 22; TEMP 36.6; O2SAT 100; BMI 26.1
--- NOTE | 2020-10-14 16:06 | EDS_ITS ---
HPI History of Present Illness Chief Complaint: Allergic Reaction Informant: patient Onset/Context/Timing Onset: Today Context: Sudden Onset Narrative Narrative: The patient is a 50-year-old female presents to the emergency department allergic reaction. Patient was in her normal state of health. She had a dental procedure done today. She states she is placed on azithromycin. About an hour after taking it, she began to have abdominal pain, felt short of breath, and had diarrhea. She states that she is also been very anxious. She does not think that she has had reaction like this to this medication before. She states she is otherwise been in her normal state of health. [facility] Medical History Anginal equivalent Anxiety GERD (gastroesophageal reflux disease) Hypertension Hypothyroidism Home Medications levothyroxine 125 mcg PO DAILY 01/08/19 [History Last Taken 06/04/19] citalopram 30 mg PO DAILY 07/31/19 [History Last Taken Unknown] losartan 25 mg PO 1500 08/10/19 [History Last Taken Unknown] estradiol 1 mg PO DAILY #100 tab 10/27/19 [Rx Last Taken Unknown] pantoprazole 40 mg PO DAILY 05/23/20 [History Last Taken Unknown] sucralfate 1 gm PO BID #14 tab 05/23/20 [Rx Last Taken Unknown] ondansetron 4 mg PO Q8H PRN PRN #10 tab 06/20/20 [Rx Last Taken Unknown] promethazine 25 mg PO Q6H PRN PRN #10 tab 06/20/20 [Rx Last Taken Unknown] amoxicillin 500 mg PO TID #30 tab 10/14/20 [Rx Last Taken Unknown] Allergy/AdvReac Type Severity Reaction Status Date / Time milk Allergy Other Verified 10/14/20 15:44 sumatriptan [From Imitrex] Allergy TUNNEL Verified 10/14/20 15:44 VISION sumatriptan succinate Allergy TUNNEL Verified 10/14/20 15:44 [From Imitrex] VISION Surgical History S/P correction of deviated nasal septum S/P hysterectomy S/P laparoscopic cholecystectomy S/P left knee surgery S/P tubal ligation S/P wisdom tooth extraction Social History Smoking Status: Former smoker ROS ROS ED Constitutional Constitutional ED: Denies chills or fever(s) Eyes Eyes: Denies blurry vision or change in vision ENT ENT ED: Denies ear pain or sore throat Cardiovascular Cardiovascular: Denies chest pain or palpitations Respiratory/Chest Respiratory/Chest: Denies cough, dyspnea or dyspnea on exertion Gastrointestinal Gastrointestinal: Reports cramping and diarrhea; Denies abdominal pain, nausea or vomiting Genitourinary Genitourinary ED: Denies dysuria or urinary frequency Musculoskeletal Musculoskeletal: Denies arthralgias or myalgias Integumentary Denies rash Neurologic Neurologic: Denies headache(s) or paresthesias Psychiatric Psychiatric: Denies anxiety or depression Endocrine Endocrinology: Denies polydipsia or polyuria Allergic/Immunologic Allergic/Immunologic ED: Denies urticaria EXAM Physical Exam Const Vital Signs: 10/14/20 15:41 10/14/20 17:19 Temperature 97.8 F Temperature Source Temporal Pulse Rate 114 H 98 Respiratory Rate 22 H 16 Blood Pressure 180/106 H 145/84 H Blood Pressure Mean 130 Pulse Ox 100 100 Oxygen Delivery Method Room Air Positive well nourished and well developed General Appearance ED: well developed HEENT Reports normocephalic, head/scalp atraumatic and moist mucous membranes Eyes PERRL and EOMs intact bilaterally Neck no lymphadenopathy and supple General: Negative for tenderness Chest Wall inspection of chest normal Resp normal respiratory effort and clear to auscultation bilaterally Cardio regular rate, regular rhythm and no murmurs GI normal to inspection, nondistended, normoactive bowel sounds Palpation: Negative for tender, guarding or rebound tenderness present Back/Spine no CVA tenderness Cervical Spine: Negative for cervical spine tenderness Thoracic Spine / Upper Back: Negative for thoracic spinal tenderness Extremity normal to inspection General Extremety ED: Negative for tenderness Neuro oriented x3 and CN's II-XII intact bilaterally Neuro Narrative: No focal deficits appreciated. Sensorium / Orientation: alert Psych mental status grossly normal Skin no rashes or lesions noted, no wounds and skin turgor normal MDM MDM MDM Narrative Medical decision making narrative: Patient continued to do well. I will change her antibiotics to clindamycin. She will be discharged home. Impression 1. Medication reaction Discharge Plan Triage Chief Complaint: Allergic Reaction ED Provider: Mauricio Liu Dx/Rx/DC Orders Instructions: ED ADVERSE DRUG REACTION Allergic Prescriptions: New amoxicillin 500 MG tablet 500 mg PO TID Qty: 30 RF: 0 No Action levothyroxine 125 MCG tablet 125 mcg PO DAILY RF: 0 citalopram 20 MG tablet 30 mg PO DAILY RF: 0 losartan 50 MG tablet 25 mg PO 1500 RF: 0 estradiol 1 MG tablet 1 mg PO DAILY Qty: 100 RF: 4 pantoprazole 40 MG tablet 40 mg PO DAILY RF: 0 sucralfate 1 GM tablet 1 gm PO BID Qty: 14 RF: 0 promethazine 25 MG tablet 25 mg PO Q6H PRN PRN (Reason: Nausea) Qty: 10 RF: 0 ondansetron 4 MG tablet 4 mg PO Q8H PRN PRN (Reason: Nausea) Qty: 10 RF: 0 Primary Care Provider: Milka Schneider Referrals: Milka Schneider MD [Primary Care Provider] - Disposition Disposition: Home, self care Discharge Date/Time: 10/14/20 17:27
[2020-10-14] MEDS: DiphenhydrAMINE 25 MG Capsule 50 MG PO (16:40)
[2020-10-14] MEDS: predniSONE 20 MG Tablet 60 MG PO (16:40)
[2020-10-14] MEDS: Ondansetron ODT 4 MG Tablet PO (16:40)
[2020-10-14 17:19] VITALS: BP 145/84; PULSE 98; RESP 16; O2SAT 100
== END 2020-10-14 17:27 | disposition home or self-care (01) ==
LOC: ED 16:26
PROVIDERS: Emergency Provider Emergency Medicine; PCP Family Medicine
DX: R06.02 Shortness of breath (principal); R10.9 Unspecified abdominal pain; R19.7 Diarrhea, unspecified; T78.49XA Other allergy, initial encounter; T36.3X5A Adverse effect of macrolides, initial encounter; Y92.9 Unspecified place or not applicable; I10 Essential (primary) hypertension; E03.9 Hypothyroidism, unspecified; K21.9 Gastro-esophageal reflux disease without esophagitis; F41.9 Anxiety disorder, unspecified; Z87.891 Personal history of nicotine dependence
CPT/HCPCS: 99283

== ENCOUNTER 2020-11-25 20:13 | Emergency (ER) | payer MEDICAID, SELFPAY ==
[2020-11-25 20:14] VITALS: BP 202/106; PULSE 96; RESP 18; TEMP 36.6; O2SAT 100; BMI 27.9
--- NOTE | 2020-11-25 20:29 | EX.ED.DYSGE1 ---
HPI History of Present Illness Chief Complaint: Anxiety Narrative Narrative: The patient has trouble swallowing pills she supposed to take her pills with applesauce or yogurt type foods she was in a hurry and she apparently took a pill without doing so negatively no other food products to help the pill go down and she feels if she choked on the pill she coughed that up she felt anxious afterward and she came in for evaluation she has had this process for a long time she had a swallowing that was unremarkable she is been told by her physicians not to take pills without applesauce or yogurt she has other complaints [facility] Medical History Anginal equivalent Anxiety GERD (gastroesophageal reflux disease) Hypertension Hypothyroidism Home Medications levothyroxine 125 mcg PO DAILY 01/08/19 [History Last Taken 06/04/19] citalopram 30 mg PO DAILY 07/31/19 [History Last Taken Unknown] losartan 25 mg PO 1500 08/10/19 [History Last Taken Unknown] estradiol 1 mg PO DAILY #100 tab 10/27/19 [Rx Last Taken Unknown] pantoprazole 40 mg PO DAILY 05/23/20 [History Last Taken Unknown] sucralfate 1 gm PO BID #14 tab 05/23/20 [Rx Last Taken Unknown] ondansetron 4 mg PO Q8H PRN PRN #10 tab 06/20/20 [Rx Last Taken Unknown] promethazine 25 mg PO Q6H PRN PRN #10 tab 06/20/20 [Rx Last Taken Unknown] amoxicillin 500 mg PO TID #30 tab 10/14/20 [Rx Last Taken Unknown] Allergy/AdvReac Type Severity Reaction Status Date / Time azithromycin Allergy Diarrhea Verified 11/25/20 20:16 [From Zithromax Z-Keo] milk Allergy Other Verified 11/25/20 20:16 sumatriptan [From Imitrex] Allergy TUNNEL Verified 11/25/20 20:16 VISION sumatriptan succinate Allergy TUNNEL Verified 11/25/20 20:16 [From Imitrex] VISION Surgical History S/P correction of deviated nasal septum S/P hysterectomy S/P laparoscopic cholecystectomy S/P left knee surgery S/P tubal ligation S/P wisdom tooth extraction Social History Smoking Status: Former smoker ROS ROS ED Constitutional Constitutional ED: Reports subjective, sweats and other; Denies chills, fever(s) or weight loss Eyes Eyes: Denies blurry vision or change in vision ENT ENT ED: Denies ear pain Cardiovascular Cardiovascular: Denies chest pain or palpitations Respiratory/Chest Respiratory/Chest: Denies dyspnea Gastrointestinal Gastrointestinal: Denies abdominal pain, nausea or vomiting Genitourinary Genitourinary ED: Denies dysuria or hematuria Musculoskeletal Musculoskeletal: Denies arthralgias or myalgias Integumentary Reports rash; Denies abscess Neurologic Neurologic: Denies weakness Psychiatric Psychiatric: Denies anxiety or depression Endocrine Endocrinology: Denies polydipsia or polyuria Allergic/Immunologic Allergic/Immunologic ED: Denies urticaria EXAM Physical Exam Narrative Exam Narrative: She is in no distress vital signs are normal airway throat mouth speaking entirely negative see below Const Vital Signs: 11/25/20 20:14 Temperature 98 F Temperature Source Temporal Pulse Rate 96 Respiratory Rate 18 Blood Pressure 202/106 H Blood Pressure Mean 138 Pulse Ox 100 Oxygen Delivery Method Room Air Positive well developed General Appearance ED: well developed HEENT Reports normocephalic Negative for trauma Eyes EOMs intact bilaterally Neck supple Chest Wall inspection of chest normal Resp normal respiratory effort Cardio regular rate GI non-tender and non-distended Back/Spine Back/Spine Narrative: unremarkable Extremity normal to inspection Neuro oriented x3 and CN's II-XII intact bilaterally Sensorium / Orientation: alert Psych mental status grossly normal Skin no rashes or lesions noted MDM MDM MDM Narrative Medical decision making narrative: The patient is in no distress her airway is completely intact she did not aspirate the pill she coughed it back up her airway speech breathing are normal she states she feels anxious because of the above she has been treated in the past with anxiolytics such as Ativan we do not have any parenteral she is willing to try an Ativan tablet with applesauce and follow-up with her outpatient providers Home stable Final impression is anxiety after having trouble swallowing a pill Discharge Plan Triage Chief Complaint: Anxiety ED Provider: Dlilon Ponce Dx/Rx/DC Orders Clinical Impression: Anxiety Instructions: ED Anxiety Reaction Prescriptions: No Action levothyroxine 125 MCG tablet 125 mcg PO DAILY RF: 0 citalopram 20 MG tablet 30 mg PO DAILY RF: 0 losartan 50 MG tablet 25 mg PO 1500 RF: 0 estradiol 1 MG tablet 1 mg PO DAILY Qty: 100 RF: 4 pantoprazole 40 MG tablet 40 mg PO DAILY RF: 0 sucralfate 1 GM tablet 1 gm PO BID Qty: 14 RF: 0 promethazine 25 MG tablet 25 mg PO Q6H PRN PRN (Reason: Nausea) Qty: 10 RF: 0 ondansetron 4 MG tablet 4 mg PO Q8H PRN PRN (Reason: Nausea) Qty: 10 RF: 0 amoxicillin 500 MG tablet 500 mg PO TID Qty: 30 RF: 0 Primary Care Provider: Milka Schneider Referrals: Milka Schneider MD [Primary Care Provider] -
[2020-11-25] MEDS: LORazepam 1 MG Tablet PO (20:37)
== END 2020-11-25 20:45 | disposition home or self-care (01) ==
LOC: ED 20:25
PROVIDERS: Emergency Provider Emergency Medicine; PCP Family Medicine
DX: F41.9 Anxiety disorder, unspecified (principal); I20.8 Other forms of angina pectoris; I10 Essential (primary) hypertension; E03.9 Hypothyroidism, unspecified; K21.9 Gastro-esophageal reflux disease without esophagitis; Z79.890 Hormone replacement therapy; Z79.899 Other long term (current) drug therapy; Z87.891 Personal history of nicotine dependence
CPT/HCPCS: 99282

== ENCOUNTER → 2020-12-23 15:59 | Outpatient (CLI) | payer MEDICAID, SELFPAY ==
[2020-11-25 20:14] VITALS: BMI 27.9
--- NOTE | 2020-12-23 16:01 | BI_ITS ---
MAMMOGRAPHY - BILATERAL SCREENING REASON FOR EXAM: Female, 50 years old. Routine annual screening examination. PERTINENT HISTORY: Non-contributory. TECHNIQUE: Digital bilateral breast osito (3D mammographic acquisition) in the CC and MLO projections. 2-D mediolateral oblique (MLO) and craniocaudad (CC) views of both breasts were obtained. CAD: Full Field Digital Mammography with Computer Added Detection was performed. COMPARISON: Comparison is made with prior outside examination dated 09/24/2015. FINDINGS: Breast Composition: There are scattered areas of fibroglandular density. There are no dominant masses or suspicious calcifications. Stable small benign appearing bilateral axillary lymph nodes. No other significant abnormalities are identified. There has been no significant change since the prior study. BI/SCRN MAMM (CAD)W/OSITO BILAT IMPRESSION: Stable bilateral screening mammogram. Yearly follow-up mammogram recommended. (A) ASSESSMENT CATEGORY: BIRADS Category 2: Benign. A letter regarding these results will be sent to the patient by the facility within 30 days. Approximately 10% of breast cancers are not detected by mammography. A normal mammogram should not delay biopsy of a clinically suspicious abnormality. [id number] Electronically Signed: Ivan Durand MD at 13:25 EDT , Service support ,
== END ==
PROVIDERS: PCP Family Medicine; Referring Provider Family Medicine; Visit Provider Family Medicine
DX: Z12.31 Encounter for screening mammogram for malignant neoplasm of breast (principal)
CPT/HCPCS: 77063; 77067

== ENCOUNTER → 2021-01-12 11:14 | Outpatient (CLI) | payer MEDICAID, SELFPAY ==
--- NOTE | 2021-01-12 11:18 | RAD_ITS ---
HISTORY: Chronic back pain. TECHNIQUE: XR Spine Lumbar Min 4 Views. Number of images including paperwork: 5. COMPARISON: 09/09/2019. FINDINGS: VERTEBRAE: 5 lumbar vertebral bodies. Vertebral body heights maintained. No acute fracture identified. VERTEBRAL ALIGNMENT: No significant anterior or posterior subluxation. INTERVERTEBRAL DISCS: Intervertebral disc spaces preserved. Mild degenerative endplate changes again seen at L5-S1. SOFT TISSUES: Small right upper quadrant calcification again seen, possible renal calculus. RAD/L/S Spine Min 4 Views IMPRESSION: No acute fracture or dislocation identified in the lumbar spine. at 1503 Reported and signed by: Marie Salazar MD Electronically Signed: Marie Salazar MD at 15:01 EDT Tel , Service support ,
--- NOTE | 2021-01-12 11:20 | RAD_ITS ---
HISTORY: Chronic back pain. TECHNIQUE: XR Hips Bilateral with Pelvis when performed; 2 Views. # of images incl. paperwork: 5. COMPARISON: CT 03/25/2020. FINDINGS: OSSEOUS STRUCTURES: No acute displaced fracture identified. Note that overlapping bowel shadows may obscure detail. Mineralization unremarkable. ALIGNMENT/JOINTS: No dislocation. Joint spaces maintained. SOFT TISSUES: Heterotopic ossification adjacent to the left iliac crest again seen. RAD/Hips B/L min 2 views w/ Pelvis IMPRESSION: No acute fracture or dislocation identified in the bilateral hips. at 1519 Reported and signed by: Marie Salazar MD Electronically Signed: Marie Salazar MD at 15:17 EDT Tel , Service support ,
== END ==
PROVIDERS: PCP Family Medicine
DX: M54.5 Low back pain (principal); M25.551 Pain in right hip; M25.552 Pain in left hip; G89.29 Other chronic pain
CPT/HCPCS: 72110; 73521

== ENCOUNTER 2021-01-16 21:15 | Emergency (ER) | payer MEDICAID, SELFPAY ==
[2021-01-16 21:17] VITALS: BP 206/94; PULSE 112; RESP 17; TEMP 36.4; O2SAT 100; BMI 28.5
[2021-01-16 22:17] VITALS: BP 162/83
--- NOTE | 2021-01-16 23:09 | EX.ED.DYSGE1 ---
HPI History of Present Illness Chief Complaint: Anxiety Informant: patient Onset/Context/Timing Onset: Today Context: Gradual Onset Timing: Continuous Quality: Heart beating hard Location: Chest Worsened by: Nothing Relieved by: Nothing Narrative Narrative: Patient presents with possible panic attack that began today. Patient states it has been constant today. Patient states she feels like her heart is beating hard. Patient states nothing makes it better and nothing makes it worse. Patient states she feels like her blood pressure is elevated and when she feels like her blood pressure is elevated she gets panic attacks. Patient states she gets 1-2 panic attacks per year. Patient denies any headaches. Patient denies any suicidal or homicidal ideations. [facility] Medical History Anginal equivalent Anxiety GERD (gastroesophageal reflux disease) Hypertension Hypothyroidism Home Medications levothyroxine 125 mcg PO DAILY 01/08/19 [History Last Taken 06/04/19] citalopram 30 mg PO DAILY 07/31/19 [History Last Taken Unknown] losartan 25 mg PO 1500 08/10/19 [History Last Taken Unknown] estradiol 1 mg PO DAILY #100 tab 10/27/19 [Rx Last Taken Unknown] pantoprazole 40 mg PO DAILY 05/23/20 [History Last Taken Unknown] ondansetron 4 mg PO Q8H PRN PRN #10 tab 06/20/20 [Rx Last Taken Unknown] promethazine 25 mg PO Q6H PRN PRN #10 tab 06/20/20 [Rx Last Taken Unknown] Allergy/AdvReac Type Severity Reaction Status Date / Time azithromycin Allergy Diarrhea Verified 01/16/21 21:19 [From Zithromax Z-Keo] milk Allergy Other Verified 01/16/21 21:19 sumatriptan [From Imitrex] Allergy TUNNEL Verified 01/16/21 21:19 VISION sumatriptan succinate Allergy TUNNEL Verified 01/16/21 21:19 [From Imitrex] VISION Surgical History S/P correction of deviated nasal septum S/P hysterectomy S/P laparoscopic cholecystectomy S/P left knee surgery S/P tubal ligation S/P wisdom tooth extraction Social History Smoking Status: Former smoker ROS ROS ED Constitutional Constitutional ED: Denies chills or fever(s) Eyes Eyes: Denies blurry vision or change in vision ENT ENT ED: Denies rhinorrhea or sore throat Cardiovascular Cardiovascular: Reports palpitations; Denies chest pain Respiratory/Chest Respiratory/Chest: Denies cough or dyspnea Gastrointestinal Gastrointestinal: Denies nausea or vomiting Genitourinary Genitourinary ED: Denies dysuria or hematuria Musculoskeletal Musculoskeletal: Reports back pain; Denies neck pain Integumentary Denies abscess or rash Neurologic Neurologic: Denies headache(s) or weakness Psychiatric Psychiatric: Reports anxiety; Denies suicidal ideation or suicidal thoughts Allergic/Immunologic Allergic/Immunologic ED: Denies mouth swelling or urticaria EXAM Physical Exam Const Vital Signs: 01/16/21 21:17 01/16/21 22:17 Temperature 97.6 F L Temperature Source Temporal Pulse Rate 112 H Respiratory Rate 17 Blood Pressure 206/94 H 162/83 H Blood Pressure Mean 131 109 Pulse Ox 100 Oxygen Delivery Method Room Air Positive well nourished and well developed General Appearance ED: well developed HEENT Reports moist mucous membranes Neck supple and no JVD Resp normal respiratory effort and clear to auscultation bilaterally Cardio regular rate, regular rhythm and no murmurs GI normal to inspection, nondistended, normoactive bowel sounds and non-tender Palpation: soft Extremity normal to inspection General Extremety ED: Negative for edema or tenderness General Extremity: Negative for edema Neuro oriented x3, CN's II-XII intact bilaterally and no sensory deficits noted Sensorium / Orientation: alert Motor Exam: strength 5/5 throughout Psych mental status grossly normal Mood & Affect: anxious Thought Content: No suicidality and No homicidality Skin no rashes or lesions noted MDM MDM MDM Narrative Medical decision making narrative: CBC and comprehensive metabolic profile were obtained and were within normal limits. Patient was given a dose of Ativan here. Patient is feeling better on reevaluation. Patient is resting comfortably. Patient was instructed to go home and rest in a dark quiet room. Patient was instructed to continue her hydroxyzine as previously prescribed. Patient was instructed to return if worse in any way. Patient was also instructed to follow-up with her primary care physician in 3 to 5 days. Patient understood and was agreeable with the plan. All questions were answered. Lab Data Attestation: I reviewed the patient's lab results. Labs: Laboratory Results - last 24 hr 01/16/21 01/16/21 23:56 23:56 WBC 10.0 RBC 4.06 L Hgb 12.4 Hct 38.3 MCV 94.3 MCH 30.5 MCHC 32.4 RDW Std Deviation 45.4 H RDW Coeff of Dylon 13.2 Plt Count 279 MPV 9.8 Immature Gran % (Auto) 0.300 Neut % (Auto) 76.5 H Lymph % (Auto) 16.8 L [place] % (Auto) 5.9 Eos % (Auto) 0.2 Baso % (Auto) 0.3 Absolute Neuts (auto) 7.6 Absolute Lymphs (auto) 1.68 Nucleated RBC % 0 Sodium 137 Potassium 3.9 Chloride 106 Carbon Dioxide 26.0 Anion Gap 5 BUN 10 Creatinine 0.86 Estim Creat Clear Calc 80.70 Est GFR (MDRD) Af Amer 91 Est GFR (MDRD) Non-Af 75 BUN/Creatinine Ratio 11.6 Glucose 92 Calcium 9.4 Total Bilirubin 0.50 AST 27 ALT 25 Alkaline Phosphatase 83 Total Protein 8.0 Albumin 3.7 Globulin 4.3 H Albumin/Globulin Ratio 0.9 Discharge Plan Triage Chief Complaint: Anxiety ED Provider: Tomas Moreno Dx/Rx/DC Orders Clinical Impression: Anxiety Instructions: ED Anxiety Reaction Prescriptions: No Action levothyroxine 125 MCG tablet 125 mcg PO DAILY RF: 0 citalopram 20 MG tablet 30 mg PO DAILY RF: 0 losartan 50 MG tablet 25 mg PO 1500 RF: 0 estradiol 1 MG tablet 1 mg PO DAILY Qty: 100 RF: 4 pantoprazole 40 MG tablet 40 mg PO DAILY RF: 0 promethazine 25 MG tablet 25 mg PO Q6H PRN PRN (Reason: Nausea) Qty: 10 RF: 0 ondansetron 4 MG tablet 4 mg PO Q8H PRN PRN (Reason: Nausea) Qty: 10 RF: 0 Primary Care Provider: Milka Schneider Referrals: Milka Schneider MD [Primary Care Provider] - 3-5 Days Disposition Disposition: Home, Self Care
[2021-01-16] MEDS: LORazepam 2 MG/ML Syringe 0.5 MG IV (23:56)
[2021-01-17 00:03] LABS: Absolute Lymphocyte Count 1.68 X10^3/uL (0.83-4.51); Absolute Neutrophil Count 7.6 X10^3/uL (2.0-7.7); Basophil# 0.03 X10^3/uL; Basophil% 0.3 % (0-1); Eosinophil# 0.02 X10^3/uL; Eosinophils% 0.2 % (0-5); Hematocrit 38.3 % (37-47); Hemoglobin 12.4 g/dL (12.0-15.0); Lymphocyte # 1.68 X10^3/ul (0.83-4.51); Lymphocyte % 16.8 % (19-41); Mean Corp Hgb Conc 32.4 g/dL (32-36); Mean Corpuscular Hgb 30.5 pg (27.0-32.0); Mean Corpuscular Volume 94.3 fL (81-99); Mean Platelet Vol. 9.8 fl (6.2-12.0); Monocyte# 0.59 X10^3/uL; Monocyte% 5.9 % (0-10); NRBC Flagged by Analyzer 0 % (0-5); Neutrophil # 7.64 X10^3/uL (2.7-7.7); Neutrophil % 76.5 % (47-70); Platelet Count 279 K/mm3 (150-450); RBC Distribution Width CV 13.2 % (11.6-14.6); RBC Distribution Width SD 45.4 fl (35.1-43.9); Red Blood Count 4.06 M/mm3 (4.2-5.4)
[2021-01-17 00:23] LABS: ALB/GLOB Ratio 0.9 RATIO (0.9-2.4); AST(SGOT) 27 U/L (15-37); Alanine Aminotransfer ALT/SGPT 25 U/L (13-56); Albumin, Serum 3.7 g/dL (3.2-5.0); Alkaline Phosphatase 83 U/L (45-117); Anion Gap 5 (5-15); BUN 10 mg/dL (7-18); BUN/Creat Ratio 11.6 RATIO (10-20); Calcium,Total 9.4 mg/dL (8.5-10.1); Chloride 106 mmol/L (98-107); Creatinine, Serum 0.86 mg/dL (0.55-1.02); EST Glomerular Filtration Rate 75 mL/min (>60); Est Glom Filt Rate - Afr Amer 91 mL/min (>60); Globulin 4.3 g/dL (2.2-4.2); Glucose 92 mg/dL (74-106); Potassium 3.9 mmol/L (3.5-5.1); Sodium Level 137 mmol/L (136-145)
[2021-01-17 00:54] VITALS: BP 124/72
== END 2021-01-17 00:54 | disposition home or self-care (01) ==
PROVIDERS: Emergency Provider Emergency Medicine; PCP Family Medicine
DX: F41.9 Anxiety disorder, unspecified (principal); I10 Essential (primary) hypertension; E03.9 Hypothyroidism, unspecified; K21.9 Gastro-esophageal reflux disease without esophagitis; Z79.890 Hormone replacement therapy; Z79.899 Other long term (current) drug therapy; Z87.891 Personal history of nicotine dependence
CPT/HCPCS: 80053; 85025; 96374; 99284

== ENCOUNTER 2021-02-27 16:20 | Emergency (ER) | payer MEDICAID, SELFPAY ==
[2021-02-27 16:21] VITALS: BP 177/100; PULSE 106; RESP 18; TEMP 37.1; O2SAT 100; BMI 27.8
--- NOTE | 2021-02-27 17:05 | EDS_ITS ---
HPI History of Present Illness Chief Complaint: Fall Informant: patient Narrative Narrative: Patient had slip and fall on the steps about 1 week ago. She was wearing socks. This was a mechanical fall and not syncope. She states she still having pain up near the right shoulder. She actually points to the right superior anterior chest area. The shoulder elbow itself are fine. She does have some small bruising by the wrist but it does not hurt. She is not short of breath. No fevers or chills. No numbness tingling or weakness. Pressing makes it worse and rest makes it better. PFSH PFSH Medical History Allergies Anginal equivalent Anxiety Back problem Carpal tunnel syndrome Generalized headaches GERD (gastroesophageal reflux disease) Hormone deficiency Hypertension Hypothyroidism Vision problem Home Medications citalopram 30 mg PO DAILY 07/31/19 [History Last Taken Unknown] estradiol 1 mg PO DAILY #100 tab 10/27/19 [Rx Last Taken Unknown] cyclobenzaprine 10 mg tablet 10 mg PO TID 01/27/21 [History Last Taken Unknown] levothyroxine 125 mcg tablet 150 mcg PO DAILY tab 01/27/21 [History Last Taken Unknown] losartan 25 mg tablet 25 mg PO DAILY 01/27/21 [History Last Taken Unknown] naproxen 500 mg tablet,delayed release 500 mg PO BID 01/27/21 [History Last Ta pearl Unknown] zolpidem 10 mg tablet 5 mg PO QHS PRN tab 01/27/21 [History Last Taken Unknown] hydroxyzine pamoate [Vistaril] 25 mg PO BID PRN 02/27/21 [History Last Taken Unknown] Allergy/AdvReac Type Severity Reaction Status Date / Time azithromycin Allergy Diarrhea Verified 02/27/21 16:22 [From Zithromax Z-Keo] milk Allergy Other Verified 02/27/21 16:22 sumatriptan [From Imitrex] Allergy TUNNEL Verified 02/27/21 16:22 VISION sumatriptan succinate Allergy TUNNEL Verified 02/27/21 16:22 [From Imitrex] VISION Family History Other Anxiety Depression Epilepsy Hormone deficiency Hypertension Seizures Surgical History History of carpal tunnel release S/P correction of deviated nasal septum S/P hysterectomy S/P laparoscopic cholecystectomy S/P left knee surgery S/P tubal ligation S/P wisdom tooth extraction Social History Smoking Status: Former smoker alcohol intake: never substance use type: does not use additional social history: Does Not Take Aspirin Does Not Take Ibuprofen ROS ROS ED Constitutional Constitutional ED: Denies fever(s) or subjective ENT ENT ED: Denies rhinorrhea Cardiovascular Cardiovascular: Reports chest pain and other Details: See history of present illness. ; Denies palpitations or racing heartbeat Respiratory/Chest Respiratory/Chest: Denies cough, dyspnea or sputum Gastrointestinal Gastrointestinal: Denies abdominal pain, nausea or vomiting Musculoskeletal Musculoskeletal: Denies back pain or neck pain Integumentary Reports other Details: Contusions from fall. Neurologic Neurologic: Denies headache(s) Hematologic/Lymphatic Hematologic/Lymphatic: Denies easy bleeding or easy bruising Allergic/Immunologic Allergic/Immunologic ED: Denies urticaria EXAM Physical Exam Const Vital Signs: 02/27/21 16:21 02/27/21 17:13 Temperature 98.7 F Temperature Source Temporal Pulse Rate 106 H Respiratory Rate 18 Respiratory Effort Normal Respiratory Pattern Normal Blood Pressure 177/100 H Blood Pressure Mean 125 Pulse Ox 100 Oxygen Delivery Method Room Air Positive well nourished and well developed General Appearance ED: well developed and NAD HEENT atraumatic; Negative for trauma Neck full ROM General: Negative for tenderness Chest Wall Chest Narrative: She does have some slight contusions to the right upper chest wall near the anterior axillary line. Abdomen mild tenderness in that area but no subcu air. Clavicle is nontender. There is a mild upper trapezius soreness. No scapular pain. Resp normal respiratory effort and clear to auscultation bilaterally Cardio Rate: regular rate GI normal to inspection, nondistended, normoactive bowel sounds and non-tender Palpation: soft Back/Spine normal to inspection Extremity Extremity Narrative: She has a few contusions on the right lower extremities but no tenderness deformity or pain with range of motion. Neuro oriented x3 Sensorium / Orientation: alert Psych mental status grossly normal Skin Skin Narrative: Contusions MDM MDM MDM Narrative Medical decision making narrative: X-ray showed no sign of acute process looked at by me and final read by radiology. Patient will be discharged home. She can use ice rest Tylenol or [id number] meds. Radiography Diagnostic Testing: Radiology Impression Chest X-Ray 02/27/21 17:32 IMPRESSION: No acute radiographic abnormalities. Electronically Signed: Alen Rowe MD at 18:03 EDT Tel , Service support , Discharge Plan Triage Chief Complaint: Fall ED Provider: Denilson Garcia Dx/Rx/DC Orders Clinical Impression: Accidental fall on or from other stairs or steps, Contusion of left chest wall Instructions: ED Chest Wall Contusion Prescriptions: No Action naproxen 500 mg tablet,delayed release (DR/EC) 500 mg PO BID RF: 0 losartan [Cozaar] 25 mg tablet 25 mg PO DAILY RF: 0 cyclobenzaprine 10 mg tablet 10 mg PO TID RF: 0 zolpidem [Ambien] 10 mg tablet 5 mg PO QHS PRN (Reason: Insomnia) RF: 0 levothyroxine 125 mcg tablet 150 mcg PO DAILY RF: 0 citalopram 20 MG tablet 30 mg PO DAILY RF: 0 estradiol 1 MG tablet 1 mg PO DAILY Qty: 100 RF: 4 hydroxyzine pamoate [Vistaril] 25 mg Capsule 25 mg PO BID PRN (Reason: Anxiety) RF: 0 Primary Care Provider: Milka Schneider Referrals: Milka Schneider MD [Primary Care Provider] - As Needed Disposition Disposition: Home, Self Care
--- NOTE | 2021-02-27 17:32 | RAD_ITS ---
INDICATION: trauma EXAMINATION/TECHNIQUE: X-RAY - XR Chest 2 Views COMPARISON: None. FINDINGS: The lungs are clear. The cardiomediastinal silhouette is unremarkable. No pleural effusion or pneumothorax. No acute osseous abnormalities. RAD/Chest PA and Lateral IMPRESSION: No acute radiographic abnormalities. Electronically Signed: Alen Rowe MD at 18:03 EDT Tel , Service support ,
[2021-02-27 19:13] VITALS: BP 164/94
== END 2021-02-27 19:14 | disposition home or self-care (01) ==
PROVIDERS: Emergency Provider Emergency Medicine; PCP Family Medicine
DX: S20.211A Contusion of right front wall of thorax, initial encounter (principal); S20.212A Contusion of left front wall of thorax, initial encounter; S80.11XA Contusion of right lower leg, initial encounter; S60.219A Contusion of unspecified wrist, initial encounter; W10.9XXA Fall (on) (from) unspecified stairs and steps, initial encounter; Y93.9 Activity, unspecified; Y92.9 Unspecified place or not applicable; Y99.9 Unspecified external cause status; I10 Essential (primary) hypertension; E03.9 Hypothyroidism, unspecified; K21.9 Gastro-esophageal reflux disease without esophagitis; Z79.1 Long term (current) use of non-steroidal anti-inflammatories (NSAID); Z79.890 Hormone replacement therapy; Z79.899 Other long term (current) drug therapy; Z87.891 Personal history of nicotine dependence
CPT/HCPCS: 71046; 99282

== ENCOUNTER 2021-05-20 20:25 | Emergency (ER) | payer MEDICAID, SELFPAY ==
[2021-05-20 20:26] VITALS: BP 181/82; PULSE 122; RESP 18; TEMP 36.4; O2SAT 100; BMI 24.5
--- NOTE | 2021-05-20 20:30 | EKG12_ITS ---
Test Reason : DYSRHYTHMIA Blood Pressure : / mmHG Vent. Rate : 115 BPM Atrial Rate : 115 BPM P-R Int : 178 ms QRS Dur : 094 ms QT Int : 328 ms P-R-T Axes : 042 061 034 degrees QTc Int : 453 ms [address] tachycardia Nonspecific [address] abnormality Abnormal ECG Confirmed by MEKHI VALENZUELA, JORGE LUIS ([id number]), manuscript editor LILIANA FLAHERTY ([id number]) on 05/23/2021 8:58:59 AM Referred By: ELBA Confirmed By:JOSH GAMING MD
[2021-05-20 20:47] LABS: Absolute Lymphocyte Count 3.16 X10^3/uL (0.83-4.51); Absolute Neutrophil Count 6.7 X10^3/uL (2.0-7.7); Basophil# 0.02 X10^3/uL; Basophil% 0.2 % (0-1); Eosinophil# 0.06 X10^3/uL; Eosinophils% 0.6 % (0-5); Hematocrit 37.3 % (37-47); Hemoglobin 12.2 g/dL (12.0-15.0); Lymphocyte # 3.16 X10^3/ul (0.83-4.51); Lymphocyte % 29.1 % (19-41); Mean Corp Hgb Conc 32.7 g/dL (32-36); Mean Corpuscular Hgb 29.6 pg (27.0-32.0); Mean Corpuscular Volume 90.5 fL (81-99); Mean Platelet Vol. 10.3 fl (6.2-12.0); Monocyte# 0.86 X10^3/uL; Monocyte% 7.9 % (0-10); NRBC Flagged by Analyzer 0 % (0-5); Neutrophil # 6.72 X10^3/uL (2.7-7.7); Neutrophil % 61.9 % (47-70); Platelet Count 268 K/mm3 (150-450); RBC Distribution Width CV 12.9 % (11.6-14.6); RBC Distribution Width SD 42.5 fl (35.1-43.9); Red Blood Count 4.12 M/mm3 (4.2-5.4); White Blood Count 10.9 K/mm3 (4.4-11.0)
--- NOTE | 2021-05-20 21:00 | RAD_ITS ---
STUDY: X-RAY CHEST REASON FOR EXAM: Female, 50 years old. Palpitations. TECHNIQUE: Single AP portable view of the chest. COMPARISON: 02/27/2021. FINDINGS: The lungs are clear and expanded. There is no demonstrated pleural abnormality. Normal size heart. Normal mediastinum and sweta. Normal visualized pulmonary arteries. Normal visualized aortic arch and descending thoracic aorta. Normal visualized thoracic spine. Normal visualized ribs, clavicles, and shoulders. There is no demonstrated abnormality of the visualized soft tissue structures of the upper abdomen. RAD/Chest 1 View IMPRESSION: No acute cardiopulmonary disease or major interval change. Electronically Signed: Navid Yan DO at 22:40 EST Tel [phone], Service support ,
[2021-05-20 21:01] LABS: Anion Gap 8 (5-15); BUN 7 mg/dL (7-18); BUN/Creat Ratio 9.7 RATIO (10-20); Calcium,Total 9.7 mg/dL (8.5-10.1); Chloride 109 mmol/L (98-107); Creatinine, Serum 0.72 mg/dL (0.55-1.02); EST Glomerular Filtration Rate 92 mL/min (>60); Est Glom Filt Rate - Afr Amer 111 mL/min (>60); Estimated Creatinine Clearance 96.39 ml/min; Glucose 99 mg/dL (74-106); Potassium 3.3 mmol/L (3.5-5.1); Sodium Level 141 mmol/L (136-145)
--- NOTE | 2021-05-20 21:44 | EX.ED.DYSGE1 ---
HPI History of Present Illness Chief Complaint: Hypertension Narrative Narrative: 50-year-old female with history of hypertension, anxiety presenting for evaluation. Patient states that she was laying on the floor and when she stood up abruptly she became very lightheaded. She states that she checked her blood pressure and it was elevated. She became very anxious about this. She denies chest pain or shortness of breath. She denies headache, nausea, vomiting. No fever or chills. Does state that she takes losartan 25 mg daily. She also took Vistaril prior to coming because she was very anxious. She feels improved at this time. [facility] Medical History Allergies Anginal equivalent Anxiety Back problem Carpal tunnel syndrome Chronic neck pain Chronic thoracic back pain Generalized headaches GERD (gastroesophageal reflux disease) Hormone deficiency Hypertension Hypothyroidism Intertrigo Macromastia Shoulder pain Vision problem Home Medications estradiol 1 mg PO DAILY #100 tab 10/27/19 [Rx Last Taken Unknown] levothyroxine 125 mcg tablet 137 mcg PO DAILY tab 01/27/21 [History Last Taken Unknown] losartan 25 mg tablet 25 mg PO DAILY 01/27/21 [History Last Taken Unknown] hydroxyzine pamoate [Vistaril] 25 mg PO BID PRN 02/27/21 [History Last Taken Unknown] Allergy/AdvReac Type Severity Reaction Status Date / Time azithromycin Allergy Diarrhea Verified 03/24/21 16:35 [From Zithromax Z-Keo] milk Allergy Other Verified 03/24/21 16:35 sumatriptan [From Imitrex] Allergy TUNNEL Verified 03/24/21 16:35 VISION sumatriptan succinate Allergy TUNNEL Verified 03/24/21 16:35 [From Imitrex] VISION Family History Other Anxiety Depression Epilepsy Hormone deficiency Hypertension Seizures Surgical History History of carpal tunnel release S/P correction of deviated nasal septum S/P hysterectomy S/P laparoscopic cholecystectomy S/P left knee surgery S/P tubal ligation S/P wisdom tooth extraction Social History Smoking Status: Former smoker alcohol intake: never substance use type: does not use additional social history: Does Not Take Aspirin Does Not Take Ibuprofen ROS ROS ED Constitutional Constitutional ED: Denies chills, fever(s) or sweats Eyes Eyes: Denies blurry vision or change in vision ENT ENT ED: Denies ear pain or sore throat Cardiovascular Cardiovascular: Denies chest pain, palpitations or racing heartbeat Respiratory/Chest Respiratory/Chest: Denies cough, dyspnea or sputum Gastrointestinal Gastrointestinal: Denies abdominal pain, constipation, diarrhea, nausea or vomiting Genitourinary Genitourinary ED: Denies dysuria, hematuria or urinary frequency Musculoskeletal Musculoskeletal: Denies arthralgias, myalgias or neck pain Integumentary Denies abscess, Abrasions or rash Neurologic Neurologic: Denies headache(s), paresthesias or weakness Psychiatric Psychiatric: Reports anxiety; Denies depression Endocrine Endocrinology: Denies polydipsia or polyuria EXAM Physical Exam Const Vital Signs: 05/20/21 20:26 Temperature 97.6 F L Temperature Source Temporal Pulse Rate 122 H Respiratory Rate 18 Blood Pressure 181/82 H Blood Pressure Mean 115 Pulse Ox 100 Oxygen Delivery Method Room Air Positive well nourished, alert and oriented x3 General Appearance ED: Negative for pallor HEENT Reports normocephalic, head/scalp atraumatic and moist mucous membranes Eyes PERRL and EOMs intact bilaterally Neck no lymphadenopathy and supple Chest Wall inspection of chest normal and palpation of chest normal Resp normal respiratory effort and clear to auscultation bilaterally Auscultation: Negative for rales, rhonchi or wheezes Cardio regular rate and regular rhythm Narrative: Deferred Neuro oriented x3 and CN's II-XII intact bilaterally Sensorium / Orientation: alert Motor Exam: strength 5/5 throughout Psych mental status grossly normal Attitude: No agitated Skin no rashes or lesions noted and no wounds General Skin Exam: Negative for jaundice or pallor MDM MDM MDM Narrative Medical decision making narrative: Patient presenting with palpitations. She states he experienced this when she stood up too fast. She did not faint. She states she took Vistaril prior to coming but she was very anxious about her blood pressure. She feels improved at this time. CBC and BMP are unremarkable with exception of a slightly low potassium of 3.3. I do not believe the patient needs to have this replaced orally here. I do feel the patient likely just stood up too fast and become anxious when she checked her blood pressure. She does not have any chest pain or shortness of breath. I think she stable for discharge home. In regards to her blood pressure it is somewhat elevated however she is very anxious in the room. I counseled her to keep a diary at home and follow-up with her primary care physician. Impression: 1. Palpitations 2. Anxiety 3. Hypertension Lab Data Labs: Laboratory Results - last 24 hr 05/20/21 05/20/21 20:37 20:37 WBC 10.9 RBC 4.12 L Hgb 12.2 Hct 37.3 MCV 90.5 MCH 29.6 MCHC 32.7 RDW Std Deviation 42.5 RDW Coeff of Dylon 12.9 Plt Count 268 MPV 10.3 Immature Gran % (Auto) 0.300 Neut % (Auto) 61.9 Lymph % (Auto) 29.1 Wilcox % (Auto) 7.9 Eos % (Auto) 0.6 Baso % (Auto) 0.2 Absolute Neuts (auto) 6.7 Absolute Lymphs (auto) 3.16 Nucleated RBC % 0 Sodium 141 Potassium 3.3 L Chloride 109 H Carbon Dioxide 24.0 Anion Gap 8 BUN 7 Creatinine 0.72 Estim Creat Clear Calc 96.39 Est GFR (MDRD) Af Amer 111 Est GFR (MDRD) Non-Af 92 BUN/Creatinine Ratio 9.7 L Glucose 99 Calcium 9.7 Discharge Plan Triage Chief Complaint: Hypertension ED Provider: Orlando Salas Dx/Rx/DC Orders Instructions: ED Palpitations Prescriptions: No Action losartan [Cozaar] 25 mg tablet 25 mg PO DAILY RF: 0 levothyroxine 125 mcg tablet 137 mcg PO DAILY RF: 0 estradiol 1 MG tablet 1 mg PO DAILY Qty: 100 RF: 4 hydroxyzine pamoate [Vistaril] 25 mg Capsule 25 mg PO BID PRN (Reason: Anxiety) RF: 0 Primary Care Provider: Milka Schneider Referrals: Milka Schneider MD [Primary Care Provider] - Disposition Disposition: Home, Self Care
[2021-05-20 22:13] VITALS: BP 150/85; PULSE 75; RESP 16
== END 2021-05-20 22:14 | disposition home or self-care (01) ==
LOC: ED 22:00
PROVIDERS: Emergency Provider Student in an Organized Health Care Education/Training Program; PCP Family Medicine
DX: R00.2 Palpitations (principal); F41.9 Anxiety disorder, unspecified; I10 Essential (primary) hypertension; E03.9 Hypothyroidism, unspecified; K21.9 Gastro-esophageal reflux disease without esophagitis; Z79.890 Hormone replacement therapy; Z79.899 Other long term (current) drug therapy; Z87.891 Personal history of nicotine dependence
CPT/HCPCS: 71045; 80048; 85025; 93005; 99283; A4216

== ENCOUNTER 2021-08-03 14:16 | Observation (INO) | payer MEDICAID, SELFPAY ==
--- NOTE | 2021-08-01 11:05 | EKG12_ITS ---
Test Reason : PRE OP Blood Pressure : / mmHG Vent. Rate : 072 BPM Atrial Rate : 072 BPM P-R Int : 178 ms QRS Dur : 088 ms QT Int : 378 ms P-R-T Axes : 054 072 064 degrees QTc Int : 413 ms Normal sinus rhythm Nonspecific ST abnormality Abnormal ECG Confirmed by DIDI VALENZUELA, IBRAHIMA ([id number]), publication editor LILIANA FLAHERTY ([id number]) on 08/02/2021 1:01:29 PM Referred By: Alexsander Eckert Confirmed By:IBRAHIMA TOLBERT MD
[2021-08-01 13:13] LABS: Anion Gap 5 (5-15); BUN 7 mg/dL (7-18); BUN/Creat Ratio 8.9 RATIO (10-20); Calcium,Total 9.7 mg/dL (8.5-10.1); Chloride 109 mmol/L (98-107); Creatinine, Serum 0.79 mg/dL (0.55-1.02); EST Glomerular Filtration Rate 83 mL/min (>60); Est Glom Filt Rate - Afr Amer 100 mL/min (>60); Glucose 87 mg/dL (74-106); Potassium 3.7 mmol/L (3.5-5.1); Sodium Level 139 mmol/L (136-145); Thyroid Stim Hormone (TSH) < 0.01 uIU/mL (0.358-3.74)
[2021-08-02 12:02] LABS: Magnesium 2.1 mg/dL (1.6-2.6)
--- NOTE | 2021-08-02 21:43 | PCM.HP.BLA ---
History and Physical Date of Admission: 08/03/21 HISTORY OF PRESENT ILLNESS 51 year old female presents with complaints of bilateral macromastia as well as associated painful symptomatology of neck pain, thoracic back pain, bilateral shoulder pain from shoulder grooving from the weight of her breast on her bra straps and bilateral inframammary intertrigo. She denies any trauma to her breasts. Denies any nipple discharge. She sees a Chiropractor and Loan Teller and has received injections of Toradol and steroids in her neck and upper back without much back pain relief. She also has lost 40 lbs over the past 6 months which has not relieved her painful symptomatology. Her last mammogram was 12/23/20 and it showed there are scattered areas of fibroglandular density. There are no dominant masses or suspicious calcifications. Stable small benign appearing bilateral axillary lymph nodes. No other significant abnormalities are identified. There has been no significant change since the prior study (09/24/15). She denies any family history of breast cancer. She has received medical approval for the breast reduction surgery. It is scheduled for 08/03/21. PAST MEDICAL HISTORY Anginal equivalent Anxiety Back problem Carpal tunnel syndrome Chronic neck pain Chronic thoracic back pain Dietary restriction Difficulty swallowing Former smoker GERD (gastroesophageal reflux disease) History of echocardiogram History of steroid therapy History of stress test History of ulceration Hormone deficiency Hypertension Hypothyroidism Intertrigo Macromastia Marijuana use Migraine headache Shoulder pain Vision problem Wears glasses Wears partial dentures PAST SURGICAL HISTORY History of carpal tunnel release History of esophagogastroduodenoscopy (EGD) S/P correction of deviated nasal septum S/P hysterectomy S/P laparoscopic cholecystectomy S/P left knee surgery S/P tubal ligation S/P wisdom tooth extraction ALLERGIES azithromycin [From Zithromax Z-Keo] milk Allergy sumatriptan succinate [From Imitrex] MEDICATIONS estradiol levothyroxine losartan hydroxyzine pamoate [Vistaril] zolpidem [Ambien] diazepam FAMILY HISTORY Anxiety Depression Epilepsy Hormone deficiency Hypertension Seizures SOCIAL HISTORY Smoking Status: Former smoker alcohol intake: never substance use type: does not use REVIEW OF SYSTEMS General - Denies fever. Has a history of fatigue. She has had a 40 lb intentional weight loss over the last 6 months. Eyes - Denies cataracts and glaucoma. ENT - Denies nasal congestion and sore throat. Has seasonal allergies. Endocrine - Denies excessive thirst and urination. History of hypothyroidism. Skin - Denies suspicious lesions and skin cancer. Bilateral inframammary intertrigo. Musculoskeletal - Has joint pain and joint stiffness. Denies weakness of muscles and joints, and arthritis. Has neck pain and back pain. Her neck and back pain involve cervical and thoracic area. She receives injection of Toradol and steroids into her upper back and neck to relieve this. She has not had any steroid injections in over 6 months. Has a history of carpal tunnel syndrome on the right. Has bilateral shoulder pain from shoulder grooving from the weight of her breasts on her bra straps. Neuro - History of headaches. Cardiovascular - Denies chest pain, fatigue, and shortness of breath with exertion. Has HTN. Psych - Has a history of anxiety and depression. Respiratory - Denies chronic cough and shortness of breath. Patient is a former smoker. Gastrointestinal - Denies nausea, vomiting, diarrhea, and constipation. Hematologic - Denies abnormal bruising and bleeding. Genitourinary - Denies hematuria and urinary frequency. PHYSICAL EXAMINATION General - Alert and oriented. Her bra size is 38 D. HEENT - PERRL. EOMI. Throat is clear. Neck - Supple. No cervical adenopathy. No bony tenderness. There is some pericervical soft tissue tenderness. Lungs- Clear to auscultation. Heart - Regular rate and rhythm. Breasts - Patient has bilateral macromastia. No breast masses palpable. No axillary adenopathy noted. Distance from midclavicular line on the left to nipple is 28 cm and from the nipple to the inframammary fold is 10 cm. Distance from midclavicular line on the right to the nipple is 28 cm and from the nipple to the inframammary fold is 10 cm. Nipple areolar complex diameter is 5.5 cm bilaterally. No active inframammary intertrigo noted at this time. Abdomen - Soft and non distended. Back - No bony tenderness noted. There is perivertebral soft tissue tenderness in the upper thoracic area. Extremities - FROM. No axillary adenopathy. Radial pulses are palpable. There is some bilateral shoulder tenderness with shoulder grooving from the weight of her breasts on her bra straps. Neuro - CN II-XII grossly intact. Psych - Normal mood and affect. ASSESSMENT 1. Bilateral macromastia. 2. Neck pain. 3. Thoracic back pain. 4. Bilateral shoulder pain from shoulder grooving from the weight of the breasts on her bra straps. 5. Bilateral inframammary intertrigo. 6. Recent weight loss. 7. Former smoker. PLAN Discussed with the patient the procedure of breast reduction mammoplasty. I feel this procedure would be beneficial in this patient as it would help relieve her painful symptomatology. Her last mammogram was done on December 23, 2020. It showed scattered areas of fibroglandular density. There are no dominant masses or suspicious calcifications. Stable small benign appearing bilateral axillary lymph nodes. No other significant abnormalities are identified. There has been no significant change since the prior study (09/24/15). I would remove approximately 500 grams of breast tissue per side. We will send the tissue to pathology for analysis to rule out carcinoma. Discussed with patient the extent of scarring for this procedure. The biggest risk for wound healing problems is the T-zone area. Usually wound care and sometimes antibiotics are necessary for healing in this area. She would have drains in for a few day depending on the amount of tissue that is removed. She will be on antibiotics until the drains are removed. In general, the final breast size will be in the B range. Patient voices understanding. Surgery will be done under general anesthesia with a surgical observation overnight stay in the hospital. She will have drains in for a few days and be maintained on antibiotics until the drains are removed. She will be on a lifting restriction for 6 weeks and wear a surgical compression bra for 6 weeks. We have received medical approval for the breast reduction surgery from the insurance company. Patient was informed of the risks and complication of the procedure including alternatives to surgery. These were discussed with her personally. She voices understanding and wishes to proceed. Some of the risks and complications were included in a form from the [employer]. We discussed the current risks associated with COVID-19. While it is understood that there is a community spread of COVID-19, the risk of markus COVID-19 while at [facility] ([facility]) is very low; however, the risk cannot be completely mitigated because of the community spread of the disease. We discussed in detail the risk of exposure to and/or potential harm posed by the COVID-19 virus with having a surgery/procedure at this time versus the risk of delaying the surgery/procedure. It is not possible to know either the risk of delaying the surgery or procedure or chance of getting an infection with perfect accuracy, but a joint decision was made to proceed at this time with the scheduled surgery/procedure as indicated on the consent form. Patient was notified that we will need to comply with any screening or testing WC wishes to perform or that surgery may be delayed for any positive results. Procedure Criteria Procedure Type: Elective COVID Risk Discussion: The surgeon/proceduralist and patient have discussed in detail the risk of exposure to and/or potential harm posed by the COVID-19 virus with having a surgery/procedure at this time versus the risk of delaying the surgery/procedure. It is not possible to know either the risk of delaying the surgery or procedure or chance of getting an infection with perfect accuracy, but a joint decision was made between the patient and the surgeon/proceduralist to proceed at this time with the scheduled surgery/procedure as indicated on the consent form. Patient develops increased anxiety prior to surgery and has trouble sleeping due to her anxiety. Wrote a script for Valium (5 tabs) to be taken at night prior to her surgery on 08/03/21.
[2021-08-03] VITALS (10 sets, daily range): BP systolic 89–132; BP diastolic 63–83; PULSE 62–96; RESP 14–18; TEMP 36.2–36.7; O2SAT 98–100; BMI 21.7
[2021-08-03] MEDS: Acetaminophen 500 MG Tablet 1000 MG PO ×2 (06:17→17:16)
[2021-08-03] MEDS: Lactated Ringers 1,000 ML 40 ML IV ×3 (06:17→12:00)
[2021-08-03] MEDS: Gabapentin 600 MG Tablet PO (06:18)
[2021-08-03] MEDS: Scopolamine 1mg/72hr Patch 1 PATCH TD (06:18)
[2021-08-03 06:31] LABS: Bedside Glucose 75 mg/dL (70-110)
--- NOTE | 2021-08-03 07:30 | BR_PTH ---
PATIENT: HELEN PETTIT LOC: MS3 U#:[id number] AGE/SX: 51/F ROOM: MS317 RE08/03/[address]: Dr. Alexsander Eckert MD : 1970 BED: 1 DIS: 08/04/2021 SPEC #: [id number] RECD: 08/03/21 15:11 STATUS: RONAK BARNETTJoel #: [id number] HALEY: 08/03/21 07:[address]: Alexsander Eckert DEPT: SURGICAL PATHOLOGY RECD BY: Dianna Rojas ENTERED: 08/04/21 10:29 SP TYPE: MAMOPLASTY OTHR DR: Dr. Milka Schneider MD Tissues: A - Left breast, NOS B - Right breast, NOS Procedures: Surgery Specimen Level IV HEADER OPERATION: ERAS, breast, reduction mammoplasty PRE-OP DIAGNOSIS: Bilateral macromastia, neck and thoracic back pain, bilateral shoulder pain, bilateral inframammary intertrigo TISSUE SUBMITTED: A ? Left breast tissue, B ? Right breast tissue MICROSCOPIC DIAGNOSIS A. Left breast tissue, breast reduction mammoplasty: Benign breast tissue (383 gm). Skin, no pathologic diagnosis. B. Right breast tissue, breast reduction mammoplasty: Benign breast tissue (457 gm) with a microscopic hyalinized fibroadenoma (0.3 cm in greatest dimension). Skin, no pathologic diagnosis. ELSY:aurelia 08/05/2021 MICROSCOPIC DESCRIPTION Slides are reviewed. GROSS DESCRIPTION A - Received in fixative is one container labeled with the patient's name and designated left breast tissue. The specimen consists of multiple pieces of fibroadipose tissue with a few of the pieces showing luis-white skin, weighing in aggregate 383 gm and measuring in aggregate 20 x 13 x 6 cm. No skin lesion is identified. Sections reveal yellow adipose cut surfaces mixed with scant fibrous areas. No mass lesion is identified. Aircraft [employer] sections are submitted in six cassettes. Cassette 1 contains the skin piece. B - Received in fixative is one container labeled with the patient's name and designated right breast tissue. The specimen consists of multiple pieces of fibroadipose tissue with a few of the pieces showing luis-white skin, weighing in aggregate 457 gm and measuring in aggregate 20 x 17 x 5 cm. No skin lesion is identified. Sections reveal yellow adipose cut surfaces mixed with scant fibrous areas. No mass lesion is identified. Aircraft [employer]ic [employer]ament sections are submitted in six cassettes. Cassette 1 contains the skin piece. / ELSY:aurelia 08/04/2021 TC:1 CPT: 05109 x2
[2021-08-03] MEDS: Lidocaine 1%/Epi 1:200 (30ml) 30 ML AMPUL (08:30)
[2021-08-03] MEDS: Cefazolin 2 GM in 0.9% Normal Saline 100 ML IV (08:30)
--- NOTE | 2021-08-03 13:46 | OP.PCM_ITS ---
Problems Associated Problem List Diagnoses (1) Macromastia: (2) Chronic neck pain: (3) Shoulder pain: (4) Chronic thoracic back pain: (5) Intertrigo: (6) Recent weight loss: (7) Former smoker: Report of Operation Date of Procedure: 08/03/21 Pre-Operative Diagnosis: 1. Bilateral macromastia. 2. Neck pain. 3. Thoracic back pain. 4. Bilateral shoulder pain from shoulder grooving from the weight of the breasts on her bra straps. 5. Bilateral inframammary intertrigo. 6. Recent weight loss. 7. Former smoker. Post-Operative Diagnosis: Same. Surgery/Procedure Performed:: Bilateral breast reduction mammaplasty. Description of Surgical Findings:: 51 year old female presents with complaints of bilateral macromastia as well as associated painful symptomatology of neck pain, thoracic back pain, bilateral shoulder pain from shoulder grooving from the weight of her breast on her bra straps and bilateral inframammary intertrigo. She denies any trauma to her breasts. Denies any nipple discharge. She sees a Chiropractor and Brand Inspector and has received injections of Toradol and steroids in her neck and upper back without much back pain relief. She also has lost 40 lbs over the past 6 months which has not relieved her painful symptomatology. Her last mammogram was 12/23/20 and it showed there are scattered areas of fibroglandular density. There are no dominant masses or suspicious calcifications. Stable small benign appearing bilateral axillary lymph nodes. No other significant abnormalities are identified. There has been no significant change since the prior study (09/24/15). She denies any family history of breast cancer. She has received medical approval for the breast reduction surgery. It is scheduled for 08/03/21. Patient was informed of the risks and complications of the procedure including alternatives to surgery. These were discussed with the patient personally. Patient voices understanding and wishes to proceed. Some of the risks and complications were included in a form from the [place] [employer]. IV Fluids - 2300 ml. Urine Output - 205 ml. Tissue removed from the left breast - 376 grams. Tissue removed from the right breast - 426 grams. I used AmnioFix Placental Connective Tissue Graft, ( I used 2 grafts, one in each breast at the Tzone). Catalog Number - [id number]. Lot Number - [id number]. Expiration - February 16, 2026, (Left Breast). Catalog Number - [id number]. Lot Number - [id number]. Expiration - February 16, 2026, (Right Breast). I used Zeinab absorbable hemostat, (I used 4 vials, 2 in each breast). Reference Number - [id number]. Lot Number - [id number]. Expiration - April 14, 2026, (3 vials, 2 in the left breast and one in the right breast). Reference Number - [id number]. Lot Number - [id number]. Expiration - January 12, 2026, (right breast). Surgeon: Alexsander Eckert case management manager: Kyle Gaitan Type of Anesthesia: General Specimen's removed: 1. Left breast tissue to Pathology. 2. Right breast tissue to Pathology. Drains: True x2 (one in each breast). Estimated Blood Loss (mL): 150. Fluids Replaced: 2505 ml (IV Fluids 2300 ml, Urine Output 205 ml). Description of Procedure: In the preop area, the patient was placed in the sitting position and preoperative markings were made. The sternum midline was marked down to the umbilicus. The inframammary folds were marked bilaterally. The midclavicular line was then marked down to the nipple, then from the nipple to the inframammary fold. The inframammary fold was then superimposed on the midclavicular line and I made a point 1 cm below that to be the new position of the nipple-areolar complex. 7 cm lines were then drawn divergent from that point to encompass the nipple-areolar complex. The distance between the divergent lines was 9 cm. The patient was then placed in the supine position and taken to the operating room and placed under general anesthesia and her breasts were prepped and draped in usual fashion. Ioban draping was also used. SCDs were placed for DVT prophylaxis. Perioperative antibiotics were given intravenously. A Mirza catheter was also placed. I then olamide straight lines down from the lines drawn divergent around the nipple-areolar complex down to the inframammary fold. The width of the pedicle is 9 cm. I then used a 42 mm circular template for a new size of the nipple-areolar complex. The central markings were infiltrated with Xylocaine and epinephrine. The central skin was then deepithelialized. I started on the left side first and then went to the right side. I then mobilized medial and lateral breast flaps at the level of Jono's fascia down to about 1-2 cm from the chest wall. This was met in the midline of the breast with dissection at the level of Jono's fascia down to about 1-2 cm from the chest wall. Once the central breast mound pedicle was from the skin envelope, the reduction was then begun. Most of the tissue was removed from the superior aspect of the breast and the lateral aspect of the breast. I then sutured the leading edge of the medial and lateral breast flaps to the midline of the inframammary fold with 2-0 Vicryl suture. The vertical incision was approximated using surgical clips. The excess tissue from the medial and lateral breast flaps were excised and the horizontal incision was approximated using surgical clips. The patient was then placed in a sitting position. Using a vertical limb length of 5 cm, I olamide the new position of the new nipple-areolar complexes on both breasts. They were in good position on the central aspect of the breast mound. Good symmetry was noted between the left breast and the right breast. Good shape and contour and projection were noted and appeared clinically to be a B cup. The patient was then placed back in the supine position and the surgical clips were removed. The breast wounds were then irrigated with Irrisept 0.05% Chlorhexidine solution which was followed by saline irrigation. Hemostasis was obtained using electrocautery. The tissue removed from the left breast was 376 grams. The tissue removed from the right breast was 426 grams. The tissue that was removed from the breasts was sent to Pathology for analysis to rule out carcinoma. After hemostasis was obtained using electrocautery, I then sprayed Zeinab absorbable hemostat into both breast wounds. I used two vials for each side. I then placed a size 15 True drain into each breast wound to be brought through the lateral aspect of the horizontal incision. I then closed the breast wounds by first approximating the leading edge of the medial and lateral breast flaps to the midline of the inframammary fold with 2-0 Vicryl suture. I then placed AmnioFix placental connective tissue graft into both wounds at the level of the Tzone to help with the healing process. I used 2 x 12 cm for each Tzone cut into 2 strips. The deep dermis and subcutaneous tissue of the vertical incision and the horizontal incisions were approximated using 3-0 Monocryl interrupted sutures. The horizontal incision was then approximated using 4-0 V-Loc unidirectional barbed running subcuticular suture. I also placed a few 4-0 Prolene vertical mattress interrupted sutures at the level of the Tzone. The vertical incision was then closed on the skin with 4-0 Prolene interrupted sutures. With a vertical limb length of 5 cm, I olamide a circular incision where the nipple-areolar complex would be brought through this keyhole incision. Incisions were made and the nipple areolar complex was brought through the keyhole incision. The nipple- areolar complex was secured to the breast skin using 3-0 Monocryl interrupted sutures for deep dermis and subcutaneous tissue. The skin was approximated using 4-0 Prolene simple interrupted sutures. This was then covered with Histoacryl skin tissue adhesive. I sutured the drains to the skin using 3-0 nylon suture. At the end of the procedure, the breasts were soft with no evidence of vascular compromise. No evidence of hematomas were noted. The nipples were viable. I then dressed the breasts with a Kerlix gauze and a compression luisa wrap. Then patient tolerated the procedure well and will be sent to the recovery room in satisfactory condition. She will be admitted for surgical observation overnight stay. She will go home tomorrow once she is tolerating oral pain medication. I will remove the drains in a few days. She will keep her head elevated during the initial postoperative period. She will be maintained on a lifting restriction and keep her head elevated during the initial postoperative period. Post-discharge, she may get a compression sports bra as well. She will have the Mirza removed in the morning. She will be sent home on antibiotics and pain medicine. Sutures will be removed in 1-2 weeks. Grafts/Implants Used: AmnioFix placental connective tissue graft x2, Zeinab x4. Complications None. Admit VTE Documentation VTE Present on Admission: No VTE Mechan Device Prophylaxis: SCD's VTE Pharm Prophylaxis ordered?: Yes Addendum Addendum: Surgery Charges CPT - 15484-69 ICD-10 - N62, M54.2, M54.6, M25.519, L30.4, R63.4, Z87.891 [id number] N62, M54.2, M54.6, M25.519, L30.4, R63.4, Z87.891
--- NOTE | 2021-08-03 15:26 | SUR.PHASEI ---
PADMINI BOOTS APPLIED IN OR PATIENT MONITORED ON ETCO2 FOR ERAS PROTCOL, 4L 02
[2021-08-03] MEDS: oxyCODONE 5 MG Tablet PO ×2 (16:50→21:38)
[2021-08-03] MEDS: Lactated Ringers 1,000 ML 60 ML IV (16:51)
[2021-08-03] MEDS: Cefazolin 1 GM/50 ML BAG IV ×2 (17:10→21:38)
[2021-08-03] MEDS: Gabapentin 100 MG Capsule 200 MG PO (17:10)
[2021-08-03] MEDS: Docusate Sodium 100 MG Capsule PO (21:38)
[2021-08-04] VITALS (7 sets, daily range): BP systolic 105–120; BP diastolic 66–75; PULSE 70–105; RESP 14–18; TEMP 36.5–37.2; O2SAT 94–98
[2021-08-04] MEDS: Lactated Ringers 1,000 ML 60 ML IV (01:02)
[2021-08-04] MEDS: Acetaminophen 500 MG Tablet 1000 MG PO ×2 (01:02→12:46)
[2021-08-04] MEDS: Ondansetron ODT 4 MG Tablet PO (05:16)
[2021-08-04] MEDS: Cefazolin 1 GM/50 ML BAG IV ×2 (06:33→13:41)
[2021-08-04] MEDS: Levothyroxine 137 MCG Tablet PO (06:34)
[2021-08-04 06:38] LABS: Hematocrit 30.2 % (37-47); Hemoglobin 10.2 g/dL (12.0-15.0); Mean Corp Hgb Conc 33.8 g/dL (32-36); Mean Corpuscular Hgb 30.4 pg (27.0-32.0); Mean Corpuscular Volume 89.9 fL (81-99); Mean Platelet Vol. 11.1 fl (6.2-12.0); Platelet Count 234 K/mm3 (150-450); Red Blood Count 3.36 M/mm3 (4.2-5.4); White Blood Count 15.1 K/mm3 (4.4-11.0)
[2021-08-04 07:14] LABS: Anion Gap 4 (5-15); BUN 8 mg/dL (7-18); BUN/Creat Ratio 11.6 RATIO (10-20); Calcium,Total 8.8 mg/dL (8.5-10.1); Chloride 103 mmol/L (98-107); Creatinine, Serum 0.69 mg/dL (0.55-1.02); EST Glomerular Filtration Rate 96 mL/min (>60); Est Glom Filt Rate - Afr Amer 116 mL/min (>60); Estimated Creatinine Clearance 99.49 ml/min; Glucose 124 mg/dL (74-106); Potassium 4.1 mmol/L (3.5-5.1); Prealbumin 11.5 mg/dL (20.0-40.0); Sodium Level 135 mmol/L (136-145)
[2021-08-04] MEDS: oxyCODONE 5 MG Tablet PO (07:47)
[2021-08-04] MEDS: Gabapentin 100 MG Capsule 200 MG PO ×3 (07:50→17:28)
[2021-08-04] MEDS: Ensure Surgery 237 ML LIQUID PO (08:47)
[2021-08-04] MEDS: Enoxaparin 40 MG/0.4 ML Syringe SC (10:24)
[2021-08-04] MEDS: Estradiol 1 MG Tablet PO (10:24)
[2021-08-04] MEDS: Losartan Potassium 25 MG Tablet PO (10:24)
--- NOTE | 2021-08-04 16:17 | PCM.PN.SRG ---
Subjective Subjective Postop #1 Patient sitting up in bed. She states her pain is well controlled. She states she has had some nausea this morning. Objective Data Objective Data Vital Signs: Vital Signs Temp Pulse Resp BP Pulse Ox 98.9 F 76 18 112/71 96 08/04/21 13:39 08/04/21 13:39 08/04/21 14:40 08/04/21 13:39 08/04/21 13:39 Oxygen Flow Rate (L/min) 2 Oxygen Delivery Method Room Air Weight: 143 lb 4.807 oz Body Mass Index (BMI) 21.7 Intake & Output: Intake and Output for Last 24 Hours 08/02/21 08/03/21 08/04/21 23:59 23:59 23:59 Intake Total 2474.5 / 2674.5 1550 / 1550 Output Total 590 / 1155 1875 / 1875 Balance 1884.5 / 1519.5 -325 / -325 Lab / Micro Data Result Diagrams: 08/04/21 06:05 08/04/21 06:05 Labs: Laboratory Results - last 24 hr 08/04/21 06:05: WBC 15.1 H, RBC 3.36 L, Hgb 10.2 L, Hct 30.2 L, MCV 89.9, MCH 30.4, MCHC 33.8, RDW Std Deviation 46.0 H, RDW Coeff of Dylon 14.0, Plt Count 234, MPV 11.1 08/04/21 06:05: Sodium 135 L, Potassium 4.1, Chloride 103, Carbon Dioxide 28.0, Anion Gap 4 L, BUN 8, Creatinine 0.69, Estim Creat Clear Calc 99.49, Est GFR (MDRD) Af Amer 116, Est GFR (MDRD) Non-Af 96, BUN/Creatinine Ratio 11.6, Glucose 124 H, Calcium 8.8, Prealbumin 11.5 L Micro: Microbiology 08/01/21 11:10 Interface Orders SARS-CoV-2 Antigen (Rapid) - Final Physical Exam Const alert and oriented x3 General Appearance: cooperative HEENT normocephalic Resp normal air movement Cardio regular rate Extremity full ROM and normal capillary refill Skin Wound Narrative: Bilateral breast incisions are dry and intact. True drains intact. Bilateral nipples viable, nipples have bruising. Neuro oriented x3 Assessment & Plan Assessment/Plan (1) Macromastia: (2) Chronic neck pain: (3) Shoulder pain: (4) Chronic thoracic back pain: (5) Intertrigo: (6) Anxiety: (7) Acute post-operative pain: (8) Former smoker: PLAN: Operative dressing removed. Incisions dry and intact. Nipples viable. Bruising bilateral nipples and surrounding the nipples. True drains draining serosanguineous drainage. Right drain has been 110 ml. Left drain has had 40ml. She has some leakage from around the right True drain. Dry dressing applied and ANNIE wrap for compression. Pathology pending. Her pain has been well controlled with oral pain meds. She has been experiencing nausea that is now controlled with phenergan. She has been able to keep food down. Instructed her not to remove her scopolamine patch until Sunday, that should also help with her nausea. Will discharge home. She will follow up on Sunday08/08/21 at 4 pm. Ordered Percocet (40 tabs), Valium (14 tabs) for muscle spasms, Cephalexin until the drains are removed and Phenergan for nausea.
--- NOTE | 2021-08-04 16:20 | PCM.DC ---
Discharge Instructions Diet Discharge Diet: No restrictions (Increased protein intake) Activity Discharge Activity: May Not Shower May resume sexual activity in: 10-14 days Lifting Restrictions: 20 lb lifting restrictions Dressing / Incision Call your doctor if your incision/area has: Continuous Slow Oozing, Sudden Increased Bleeding, Increased Pain/ Swelling, Increased Redness, Foul Smelling Discharge and Swelling at the incision site Call your doctor if you observe: Fever of 101 or Higher, Inability to have a bowel movement, Shortness of breath, Chest pain, Calf discomfort and Uncontrolled pain Suture Line Care: Avoid Pulling/Pushing Change Dressing in: 2 days Cleanse incision/area with: Do not get Incision Wet Drain: Suction Additional Dressing/Incision Instructions:: Change dressing as needed. Keep compression on breasts Follow Up Care Please Follow Up With: Dr. Eckert/Vickie When: Sunday08/08/21 at 4 pm. Call office if this appointment time does not work well for you [phone] Test Results: Test results from this visit will be discussed in further detail at your follow-up appointment, if applicable. Discharge Plan Admission Admit Date/Time: 08/03/21 14:16 Attending Provider: Alexsander Eckert Primary Care Provider: Milka Schneider Discharge Orders/Prescriptions Prescriptions: New oxycodone-acetaminophen [Percocet] 5-325 mg tablet 1 tab PO Q4H PRN (Reason: pain (scale score 7-10)) 7 Days RF: 0 cephalexin 500 mg tablet 500 mg PO BID 14 Days Qty: 28 RF: 0 diazepam [Valium] 5 mg tablet 5 mg PO BID PRN (Reason: muscle spasm) 7 Days Qty: 14 RF: 0 promethazine 25 mg tablet 25 mg PO TID PRN (Reason: nausea and vomiting) 10 Days Qty: 30 RF: 0 Continued losartan [Cozaar] 25 mg tablet 25 mg PO DAILY RF: 0 levothyroxine 125 mcg tablet 137 mcg PO DAILY RF: 0 estradiol 1 MG tablet 1 mg PO DAILY Qty: 100 RF: 4 hydroxyzine pamoate [Vistaril] 25 mg Capsule 25 mg PO BID PRN (Reason: Anxiety) RF: 0 zolpidem [Ambien] 5 mg Tablet 5 mg PO QHS PRN (Reason: Sleep) RF: 0 Referrals / Follow Up: Milka Schneider MD [Primary Care Provider] - Disposition Disposition (needs filled in before D/C Order can be placed): Home, Self Care
== END 2021-08-04 17:35 | disposition home or self-care (01) ==
LOC: SDC 15:05 → MS3 08-04 07:11
PROVIDERS: Anesthesiology; Admitting Provider Surgery; PCP Family Medicine; Referring Provider Surgery; Visit Provider Surgery
PROC: 0H0U0ZZ Alteration of Left Breast, Open Approach (ICD-10-PCS; CPT 19318; principal; 2021-08-03 07:15)
DX: N62 Hypertrophy of breast (principal); M54.2 Cervicalgia; M25.512 Pain in left shoulder; F41.9 Anxiety disorder, unspecified; M54.6 Pain in thoracic spine; I10 Essential (primary) hypertension; E03.9 Hypothyroidism, unspecified; M25.511 Pain in right shoulder; Z87.891 Personal history of nicotine dependence; Z79.899 Other long term (current) drug therapy; Z79.890 Hormone replacement therapy; K21.9 Gastro-esophageal reflux disease without esophagitis
CPT/HCPCS: 19318; 00402; Q9968; 36415; 80048; 82962; 83735; 84134; 84443; 85027; 87426; 88305; 93005; 96360; 96361; 96372; 99218; 99251; C9803; J7120; G0378; G0463

== ENCOUNTER 2021-09-01 16:49 | Outpatient (CLI) | payer MEDICAID, SELFPAY | END 2021-09-01 23:59 | disposition home or self-care (01) | LOC: LABSPEC 16:50 | PROVIDERS: PCP Family Medicine; Referring Provider Nurse Practitioner Family; Visit Provider Nurse Practitioner Family | DX: T81.89XA Other complications of procedures, not elsewhere classified, initial encounter (principal); Z98.890 Other specified postprocedural states; Z87.891 Personal history of nicotine dependence | CPT/HCPCS: 87070; 87075; 87077; 87186; 87205 ==

== ENCOUNTER 2021-10-03 22:47 | Emergency (ER) | payer MEDICAID, SELFPAY ==
[2021-10-03 22:48] VITALS: BP 146/97; PULSE 114; RESP 18; TEMP 35.9; O2SAT 99; BMI 19.8
[2021-10-03] MEDS: DiphenhydrAMINE 12.5 MG/5 ML UDC 25 MG PO (23:39)
[2021-10-03] MEDS: Ibuprofen 100 MG/5 ML UDC 600 MG PO (23:40)
[2021-10-03 23:42] VITALS: BP 132/74; PULSE 78; RESP 17
--- NOTE | 2021-10-03 23:42 | ED.VIS.LOWEX ---
HPI History of Present Illness Chief Complaint: Lower Extremity Injury Narrative Narrative: 51-year-old female presenting with pain above her right knee. She states he thinks she got bitten by something. It is itchy and a little bit swollen. She has not taken anything prior to arrival. She has no pain with movement of the knee except for above the knee. No direct trauma. No numbness or tingling. No history of DVT/PE. [facility] Medical History Allergies Anginal equivalent Anxiety Anxiety Back problem Carpal tunnel syndrome Chronic neck pain Chronic thoracic back pain Dietary restriction Difficulty swallowing Former smoker Generalized headaches GERD (gastroesophageal reflux disease) History of echocardiogram History of steroid therapy History of stress test History of ulceration Hormone deficiency Hypertension Hypothyroidism Intertrigo Macromastia Marijuana use Migraine headache Shoulder pain Vision problem Wears glasses Wears partial dentures Home Medications levothyroxine 125 mcg tablet 137 mcg PO DAILY tab 01/27/21 [History Last Taken 08/03/21] losartan 25 mg tablet 25 mg PO DAILY 01/27/21 [History Last Taken 08/03/21] hydroxyzine pamoate [Vistaril] 25 mg PO BID PRN 02/27/21 [History Last Taken 08/03/21] zolpidem [Ambien] 5 mg PO QHS PRN 07/21/21 [History Last Taken Unknown] promethazine 25 mg PO TID PRN 10 Days #30 tab 08/04/21 [Rx Last Taken Unknown] gabapentin 250 mg/5 mL (5 mL) oral solution 100 mg PO BID 30 Days #120 ml 09/20/21 [Rx Last Taken Unknown] Allergy/AdvReac Type Severity Reaction Status Date / Time azithromycin Allergy Diarrhea Verified 10/03/21 22:51 [From Zithromax Z-Keo] milk Allergy Other Verified 10/03/21 22:51 sumatriptan [From Imitrex] Allergy TUNNEL Verified 10/03/21 22:51 VISION sumatriptan succinate Allergy TUNNEL Verified 10/03/21 22:51 [From Imitrex] VISION tramadol AdvReac nausea and Verified 10/03/21 22:51 vomiting Family History Other Anxiety Depression Epilepsy Hormone deficiency Hypertension Seizures Surgical History History of bilateral breast reduction surgery History of carpal tunnel release History of esophagogastroduodenoscopy (EGD) S/P correction of deviated nasal septum S/P hysterectomy S/P laparoscopic cholecystectomy S/P left knee surgery S/P tubal ligation S/P wisdom tooth extraction Social History Smoking Status: Former smoker alcohol intake: never substance use type: does not use additional social history: Does Not Take Aspirin Does Not Take Ibuprofen ROS ROS ED Constitutional Constitutional ED: Denies chills or fever(s) Eyes Eyes: Denies blurry vision or change in vision ENT ENT ED: Denies rhinorrhea Cardiovascular Cardiovascular: Denies chest pain or palpitations Respiratory/Chest Respiratory/Chest: Denies cough or dyspnea Gastrointestinal Gastrointestinal: Denies abdominal pain, nausea or vomiting Genitourinary Genitourinary ED: Denies dysuria or hematuria Musculoskeletal Musculoskeletal: Reports other Details: Pain and swelling above right knee. Integumentary Reports rash Neurologic Neurologic: Denies headache(s) or weakness EXAM Physical Exam Const Vital Signs: 10/03/21 22:48 Temperature 96.7 F L Temperature Source Temporal Pulse Rate 114 H Respiratory Rate 18 Blood Pressure 146/97 H Blood Pressure Mean 113 Pulse Ox 99 Oxygen Delivery Method Room Air Positive well nourished General Appearance ED: NAD HEENT normocephalic and atraumatic Eyes PERRL Resp normal respiratory effort Cardio regular rate and regular rhythm Extremity Extremity Narrative: There is a slight area of erythema and swelling above the right knee laterally extending above the patella. Is mildly tender to palpation. No increased warmth or cellulitic change. No fluctuance. Neuro oriented x3 Sensorium / Orientation: alert Psych mental status grossly normal Skin Skin Narrative: As described above MDM MDM MDM Narrative Medical decision making narrative: Patient believes she got bitten or stung by something above her right knee. She has localized pain and swelling. She describes it as itchy as well. Exam not consistent with intra-articular infection and there is no pain with range of motion inside the knee itself. Patient concerned that she could have developed a DVT although this is very superficial. I explained to the patient that we do not have a DVT study currently available but I can order this for outpatient follow-up tomorrow. She states that she cannot take p.o. pills very well and requests liquid Benadryl and ibuprofen which was given to her. Patient will follow up for ultrasound. Impression: 1. Right leg swelling Discharge Plan Triage Chief Complaint: Lower Extremity Injury ED Provider: Orlando Salas Dx/Rx/DC Orders Instructions: ED Peripheral Edema, Unilateral Prescriptions: No Action losartan [Cozaar] 25 mg tablet 25 mg PO DAILY RF: 0 gabapentin 250 mg/5 mL (5 mL) solution 100 mg PO BID 30 Days Qty: 120 RF: 0 levothyroxine 125 mcg tablet 137 mcg PO DAILY RF: 0 hydroxyzine pamoate [Vistaril] 25 mg Capsule 25 mg PO BID PRN (Reason: Anxiety) RF: 0 zolpidem [Ambien] 5 mg Tablet 5 mg PO QHS PRN (Reason: Sleep) RF: 0 promethazine 25 mg tablet 25 mg PO TID PRN (Reason: nausea and vomiting) 10 Days Qty: 30 RF: 0 Primary Care Provider: Milka Schneider Referrals: Milka Schneider MD [Primary Care Provider] - Disposition Disposition: Home, Self Care
== END 2021-10-03 23:49 | disposition home or self-care (01) ==
PROVIDERS: Emergency Provider Student in an Organized Health Care Education/Training Program; PCP Family Medicine; Visit Provider Student in an Organized Health Care Education/Training Program
DX: M79.89 Other specified soft tissue disorders (principal); M79.604 Pain in right leg; I10 Essential (primary) hypertension; E03.9 Hypothyroidism, unspecified; Z79.890 Hormone replacement therapy; Z79.899 Other long term (current) drug therapy; Z87.891 Personal history of nicotine dependence
CPT/HCPCS: 99282

== ENCOUNTER 2021-10-04 12:51 | Outpatient (CLI) | payer MEDICAID, SELFPAY ==
--- NOTE | 2021-10-04 12:54 | VDLE_ITS ---
Reason For Study: Pain RIGHT GSV is normal. CFV is compressible, spontaneous, phasic, competent and demonstrates normal augmentation. FV is compressible, spontaneous, phasic, competent and demonstrates normal augmentation. POP V is compressible, spontaneous, phasic, competent and demonstrates normal augmentation. T/P Trunk is compressible. PTV is compressible. RT PerV is compressible. Procedure This is a venous duplex using B-mode, color flow and spectral Doppler. Exam performed in department. A preliminary report was called and/or faxed to PCP: Wyatt. Pt seen in ED 10/03/2021. VL/Venous Duplex US, Unilateral Interpretation Summary There is no evidence of right lower extremity deep vein thrombosis. Right great saphenous vein appears patent and compressible segmentally. Ordering Physician: Orlando Salas Referring Physician: Milka Schneider Performed By: Nettie Enamorado RVT
== END 2021-10-04 23:59 | disposition home or self-care (01) ==
LOC: CVS 12:52
PROVIDERS: PCP Family Medicine; Referring Provider Student in an Organized Health Care Education/Training Program; Visit Provider Student in an Organized Health Care Education/Training Program
DX: M79.661 Pain in right lower leg (principal)
CPT/HCPCS: 93971

== ENCOUNTER 2022-02-12 04:25 | Emergency (ER) | payer MEDICAID, SELFPAY ==
[2022-02-12 04:26] VITALS: BP 155/81; PULSE 101; PULSE 109; RESP 18; TEMP 36.7; O2SAT 100; BMI 22.4
--- NOTE | 2022-02-12 04:36 | RAD_ITS ---
STUDY: X-RAY CHEST REASON FOR EXAM: Female, 51 years old. chest pain TECHNIQUE: PA and lateral. COMPARISON: 05/20/2021. FINDINGS: LUNGS: No consolidation. No pneumothorax. MEDIASTINUM: Unremarkable. CARDIAC SILHOUETTE: Not enlarged. BONES AND SOFT TISSUES: No acute abnormalities. RAD/Chest PA and Lateral IMPRESSION: No evidence of active intrathoracic disease. Electronically Signed: Sarai Guzman MD at 5:17 EDT ,
--- NOTE | 2022-02-12 04:36 | EKG12_ITS ---
Test Reason : DYSRHYTHMIA Blood Pressure : / mmHG Vent. Rate : 103 BPM Atrial Rate : 103 BPM P-R Int : 188 ms QRS Dur : 096 ms QT Int : 364 ms P-R-T Axes : 058 063 053 degrees QTc Int : 476 [address] Sin[address] N[address]pecific [address] abnormality Abnormal ECG Confirmed by DIDI VALENZUELA, IBRAHIMA ([id number]), pictures editor LILIANA FLAHERTY ([id number]) on 02/14/2022 7:31:39 AM Referred By: BB Confirmed By:IBRAHIMA TOLBERT MD
--- NOTE | 2022-02-12 04:37 | EX.ED.DYSGE1 ---
HPI History of Present Illness Chief Complaint: Anxiety Informant: patient and spouse/S.O. Onset/Context/Timing Onset: Hours (3.5) Context: Gradual Onset Timing: Continuous Quality: pressure/burning Location: left chest Current Severity: Mild Maximum Severity: Severe Worsened by: nothing in particular Relieved by: nothing specific Associated Symptoms Associated Symptoms: left axilla discomfort, anxiety Narrative Narrative: Patient states she is having an anxiety attack. She has chest pressure/burning, she thinks that started first and then she started getting anxious about it and ramping up. She is very focused on her blood pressure, states that she has been compliant with her medication, and elevated numbers in the 180s frequently coexist when she gets the symptoms, she is in the 150s in triage here. She is a very anxious person which the agrees with, she takes Vistaril every day, she took it tonight and then she took another 25 mg pill 2.5 hours ago because of this. States she was started on Lexapro 3 weeks ago because of anxiety. She states it is a daily issue for her, they are getting ready to go on vacation and she has been packing and thinks maybe that is what is making her more anxious now in addition to the chest discomfort which she states she gets frequently. No history of cardiac disease that she knows of. Nonpleuritic discomfort. No leg pain or swelling or history of DVT/PE, she takes no anticoagulants. No recent illness or injury. [facility] Medical History Allergies Anginal equivalent Anxiety Anxiety Back problem Carpal tunnel syndrome Chronic neck pain Chronic thoracic back pain Dietary restriction Difficulty swallowing Former smoker Generalized headaches GERD (gastroesophageal reflux disease) History of echocardiogram History of steroid therapy History of stress test History of ulceration Hormone deficiency Hypertension Hypothyroidism Intertrigo Macromastia Marijuana use Migraine headache Shoulder pain Vision problem Wears glasses Wears partial dentures Home Medications levothyroxine 125 mcg tablet 137 mcg PO DAILY thyroid 01/27/21 [History Last Taken 08/03/21] losartan 25 mg tablet (Cozaar) 25 mg PO DAILY 01/27/21 [History Last Taken 08/03/21] hydroxyzine pamoate 25 mg capsule (Vistaril) 25 mg PO BID PRN Anxiety 02/27/21 [History Last Taken 08/03/21] zolpidem 5 mg tablet (Ambien) 5 mg PO QHS PRN Sleep 07/21/21 [History Last Taken Unknown] escitalopram oxalate 10 mg tablet (Lexapro) 10 mg PO DAILY 02/12/22 [History Last Taken Unknown] Allergy/AdvReac Type Severity Reaction Status Date / Time azithromycin Allergy Diarrhea Verified 12/09/21 15:00 [From Zithromax Z-Keo] sumatriptan [From Imitrex] Allergy TUNNEL Verified 12/09/21 15:00 VISION sumatriptan succinate Allergy TUNNEL Verified 12/09/21 15:00 [From Imitrex] VISION tramadol AdvReac nausea and Verified 12/09/21 15:00 vomiting Family History Other Anxiety Depression Epilepsy Hormone deficiency Hypertension Seizures Surgical History History of bilateral breast reduction surgery History of carpal tunnel release History of esophagogastroduodenoscopy (EGD) S/P correction of deviated nasal septum S/P hysterectomy S/P laparoscopic cholecystectomy S/P left knee surgery S/P tubal ligation S/P wisdom tooth extraction Social History Smoking Status: Former smoker alcohol intake: never substance use type: does not use additional social history: Does Not Take Aspirin Does Not Take Ibuprofen ROS ROS ED Constitutional Constitutional ED: Denies chills or fever(s) Eyes Eyes: Denies change in vision or diplopia ENT ENT ED: Denies rhinorrhea or sore throat Cardiovascular Cardiovascular: Reports chest pain; Denies palpitations Respiratory/Chest Respiratory/Chest: Denies cough, dyspnea or dyspnea on exertion Gastrointestinal Gastrointestinal: Denies abdominal pain, diarrhea, nausea or vomiting Genitourinary Genitourinary ED: Denies dysuria or hematuria Musculoskeletal Musculoskeletal: Denies back pain or neck pain Integumentary Denies abscess or rash Neurologic Neurologic: Denies headache(s), paresthesias or weakness Psychiatric Psychiatric: Reports anxiety; Denies suicidal ideation or suicidal thoughts EXAM Physical Exam Const Vital Signs: 02/12/22 04:26 02/12/22 04:26 02/12/22 04:43 Temperature 98.0 F Temperature Source Temporal Pulse Rate 109 H 101 H Respiratory Rate 18 18 Respiratory Effort Normal Non-Labored Blood Pressure 155/81 H 155/81 H Blood Pressure Mean 105 105 Pulse Ox 100 100 Oxygen Delivery Method Room Air Room Air 02/12/22 04:49 Temperature Temperature Source Pulse Rate Respiratory Rate Respiratory Effort Blood Pressure Blood Pressure Mean Pulse Ox 100 Oxygen Delivery Method Room Air Positive well nourished and well developed General Appearance ED: well developed and NAD HEENT Reports moist mucous membranes normocephalic and atraumatic Eyes PERRL and EOMs intact bilaterally Neck full ROM and supple Resp normal respiratory effort and clear to auscultation bilaterally Cardio regular rate, regular rhythm and no murmurs Cardio Narrative: Mild tachycardia GI non-tender and non-distended Auscultation: normoactive bowel sounds Palpation: soft Back/Spine no CVA tenderness General Back: other FROM Extremity normal to inspection, no calf tenderness and no pedal edema General Extremety ED: Negative for edema, pulses abnormal or tenderness General Extremity: Negative for edema or pulses abnormal Neuro oriented x3, CN's II-XII intact bilaterally and no sensory deficits noted Sensorium / Orientation: awake and alert Motor Exam: strength 5/5 throughout Psych Psych Narrative: Very anxious. Pressured speech. Mood & Affect: anxious Skin no rashes or lesions noted and no wounds MDM MDM MDM Narrative Medical decision making narrative: Patient's work-up is negative including a high-sensitivity troponin of 12 after 3.5 hours of continuous discomfort, and an unchanged EKG that is normal for her. I do not think this represents acute coronary syndrome in this context. I gave her a dose of Ativan for her anxiety while we were working her up, she felt much better afterwards, and her chest discomfort was almost completely resolved without any other treatment. Advised to follow-up with her doctor and discharged home in stable improved condition. Lab Data Attestation: I reviewed the patient's lab results. Labs: Laboratory Results - last 24 hr 02/12/22 02/12/22 04:51 04:51 WBC 12.2 H RBC 4.24 Hgb 12.5 Hct 38.1 MCV 89.9 MCH 29.5 MCHC 32.8 RDW Std Deviation 45.2 H RDW Coeff of Dylon 13.6 Plt Count 293 MPV 9.1 Immature Gran % (Auto) 0.400 Neut % (Auto) 70.4 H Lymph % (Auto) 22.0 [place] % (Auto) 6.8 Eos % (Auto) 0.2 Baso % (Auto) 0.2 Absolute Neuts (auto) 8.6 H Absolute Lymphs (auto) 2.69 Nucleated RBC % 0 Sodium 137 Potassium 3.2 L Chloride 105 Carbon Dioxide 24.0 Anion Gap 8 BUN 14 Creatinine 0.88 Estim Creat Clear Calc 80.82 Est GFR (MDRD) Af Amer 87 Est GFR (MDRD) Non-Af 72 BUN/Creatinine Ratio 15.9 Glucose 120 H Calcium 9.1 Troponin I High Sens 12 Radiography Chest X-Ray - ED: 2 View, Read by ED Physician, No Acute Disease and No Infiltrates Diagnostic Testing: Clinical Impression(s) from Imaging Studies Chest X-Ray 02/12/22 04:36 IMPRESSION: No evidence of active intrathoracic disease. Electronically Signed: Sarai Guzman MD at 5:17 EDT Reading Location ID and State: [facility] / [place] Tel , Service support , Rhythm Strip Rhythm Strip: Sinus Tach Rate: 105 Ectopy: None EKG Initial EKG: Attestation: I personally reviewed and interpreted this EKG as follows: Interpretation: No Acute Injury Pattern, Sinus Tachycardia and Non-Specific ST Changes Prior EKG tracings: available for review Prior: Unchanged Discharge Plan Triage Chief Complaint: Anxiety ED Provider: Jesus Manuel Boland Dx/Rx/DC Orders Clinical Impression: Anxiety, Chest pain Instructions: ED Anxiety Reaction Prescriptions: No Action losartan [Cozaar] 25 mg tablet 25 mg PO DAILY levothyroxine 125 mcg tablet 137 mcg PO DAILY hydroxyzine pamoate [Vistaril] 25 mg Capsule 25 mg PO BID PRN (Reason: Anxiety) zolpidem [Ambien] 5 mg Tablet 5 mg PO QHS PRN (Reason: Sleep) escitalopram oxalate [Lexapro] 10 mg Tablet 10 mg PO DAILY Primary Care Provider: Milka Schneider Referrals: Milka Schneider MD [Primary Care Provider] - 3-5 Days Disposition Disposition: Home, Self Care
[2022-02-12] MEDS: LORazepam 2 MG/ML Syringe 1 MG IV (04:48)
[2022-02-12 04:49] VITALS: O2SAT 100
[2022-02-12 04:59] LABS: Absolute Lymphocyte Count 2.69 X10^3/uL (0.83-4.51); Absolute Neutrophil Count 8.6 X10^3/uL (2.0-7.7); Basophil# 0.03 X10^3/uL; Basophil% 0.2 % (0-1); Eosinophil# 0.03 X10^3/uL; Eosinophils% 0.2 % (0-5); Hematocrit 38.1 % (37-47); Hemoglobin 12.5 g/dL (12.0-15.0); Lymphocyte # 2.69 X10^3/ul (0.83-4.51); Mean Corp Hgb Conc 32.8 g/dL (32-36); Mean Corpuscular Hgb 29.5 pg (27.0-32.0); Mean Corpuscular Volume 89.9 fL (81-99); Mean Platelet Vol. 9.1 fl (6.2-12.0); Monocyte# 0.83 X10^3/uL; Monocyte% 6.8 % (0-10); NRBC Flagged by Analyzer 0 % (0-5); Neutrophil # 8.61 X10^3/uL (2.7-7.7); Neutrophil % 70.4 % (47-70); Platelet Count 293 K/mm3 (150-450); RBC Distribution Width CV 13.6 % (11.6-14.6); RBC Distribution Width SD 45.2 fl (35.1-43.9); Red Blood Count 4.24 M/mm3 (4.2-5.4); White Blood Count 12.2 K/mm3 (4.4-11.0)
[2022-02-12 05:20] LABS: Anion Gap 8 (5-15); BUN 14 mg/dL (7-18); BUN/Creat Ratio 15.9 RATIO (10-20); Calcium,Total 9.1 mg/dL (8.5-10.1); Chloride 105 mmol/L (98-107); Creatinine, Serum 0.88 mg/dL (0.55-1.02); EST Glomerular Filtration Rate 72 mL/min (>60); Est Glom Filt Rate - Afr Amer 87 mL/min (>60); Estimated Creatinine Clearance 80.82 ml/min; Glucose 120 mg/dL (74-106); Potassium 3.2 mmol/L (3.5-5.1); Sodium Level 137 mmol/L (136-145); Troponin-I HS 12 pg/mL (3.0-54.0)
[2022-02-12 05:27] VITALS: BP 147/87; PULSE 83; RESP 15; O2SAT 99
== END 2022-02-12 05:32 | disposition home or self-care (01) ==
PROVIDERS: Emergency Provider Emergency Medicine; PCP Family Medicine; Visit Provider Emergency Medicine
DX: R07.9 Chest pain, unspecified (principal); F41.9 Anxiety disorder, unspecified; I10 Essential (primary) hypertension; E03.9 Hypothyroidism, unspecified; K21.9 Gastro-esophageal reflux disease without esophagitis; Z79.890 Hormone replacement therapy; Z79.899 Other long term (current) drug therapy; Z87.891 Personal history of nicotine dependence
CPT/HCPCS: 71046; 80048; 84484; 85025; 93005; 96374; 99284; A4216

== ENCOUNTER 2022-03-02 01:15 | Emergency (ER) | payer MEDICAID, SELFPAY ==
[2022-03-02 01:15] VITALS: BP 162/88; PULSE 90; RESP 17; TEMP 36.6; O2SAT 100; BMI 24.0
--- NOTE | 2022-03-02 01:36 | CT_ITS ---
STUDY: CT ABDOMEN AND PELVIS WITH CONTRAST REASON FOR EXAM: Female, 51 years old. abdominal pain RADIATION DOSAGE (If Supplied By Facility): CTDIvol = ( 10.87 ) mGy, DLP = ( 889.39 ) mGycm TECHNIQUE: Transaxial images were obtained from the dome of the diaphragm to the symphysis pubis without oral contrast. IV 100mL Isovue-370 was administered. Sagittal and coronal images were reconstructed. Individualized dose optimization techniques were used for this CT. COMPARISON: None. FINDINGS: The visualized lung bases are unremarkable. The visualized portions of the heart are within normal limits. Normal liver. There is non-visualization of the gallbladder, which may be secondary to either contraction or a prior cholecystectomy. Normal spleen. Normal pancreas. Normal bilateral adrenal glands. Normal right kidney. Normal left kidney. Normal visualized stomach. Normal small intestine. Normal colon. The appendix is visualized and appears normal. Normal abdominal aorta. Normal inferior vena cava. Normal retroperitoneum. Normal urinary bladder. Normal abdominal wall. There is mild dextroscoliosis of the lumbar spine. CT/Abdomen/Pelvis W IV Cont ONLY IMPRESSION: No acute abnormality of the abdomen and pelvis. Electronically Signed: Christopher Roque MD at 2:14 EDT ,
--- NOTE | 2022-03-02 01:37 | ED.VIS.GI ---
HPI HPI - GI History of Present Illness Chief Complaint: Abd Pain Informant: patient Narrative Narrative: 51-year-old female presenting to the emergency department with abdominal pain. Patient states that yesterday she was feeling constipated. She tried an enema with some relief. Today was developing abdominal cramping and had another enema. She states that she had some small relief but then this evening she feels like something ruptured inside her abdomen. She notes some upper abdominal discomfort that radiates into her back. She denies any vomiting. No fevers. She states that she is prescribed Linzess from her plastic surgeon. She states that she does not typically have issues with constipation/diarrhea. She does not see gastroenterology. [facility] Medical History Allergies Anginal equivalent Anxiety Anxiety Back problem Carpal tunnel syndrome Chronic neck pain Chronic thoracic back pain Dietary restriction Difficulty swallowing Former smoker Generalized headaches GERD (gastroesophageal reflux disease) History of echocardiogram History of steroid therapy History of stress test History of ulceration Hormone deficiency Hypertension Hypothyroidism Intertrigo Macromastia Marijuana use Migraine headache Shoulder pain Vision problem Wears glasses Wears partial dentures Home Medications levothyroxine 125 mcg tablet 137 mcg PO DAILY thyroid 01/27/21 [History Last Taken 08/03/21] losartan 25 mg tablet (Cozaar) 25 mg PO DAILY 01/27/21 [History Last Taken 08/03/21] hydroxyzine pamoate 25 mg capsule (Vistaril) 25 mg PO BID PRN Anxiety 02/27/21 [History Last Taken 08/03/21] zolpidem 5 mg tablet (Ambien) 5 mg PO QHS PRN Sleep 07/21/21 [History Last Taken Unknown] escitalopram oxalate 10 mg tablet (Lexapro) 10 mg PO DAILY 02/12/22 [History Last Taken Unknown] magnesium citrate 300 ml PO X1 PRN constipation #2 BOTTLES 03/02/22 [Rx Last Taken Unknown] Allergy/AdvReac Type Severity Reaction Status Date / Time azithromycin Allergy Diarrhea Verified 03/02/22 01:20 [From Zithromax Z-Keo] sumatriptan [From Imitrex] Allergy TUNNEL Verified 03/02/22 01:20 VISION sumatriptan succinate Allergy TUNNEL Verified 03/02/22 01:20 [From Imitrex] VISION tramadol AdvReac nausea and Verified 03/02/22 01:20 vomiting Family History Other Anxiety Depression Epilepsy Hormone deficiency Hypertension Seizures Surgical History History of bilateral breast reduction surgery History of carpal tunnel release History of esophagogastroduodenoscopy (EGD) S/P correction of deviated nasal septum S/P hysterectomy S/P laparoscopic cholecystectomy S/P left knee surgery S/P tubal ligation S/P wisdom tooth extraction Social History Smoking Status: Former smoker alcohol intake: never substance use type: does not use additional social history: Does Not Take Aspirin Does Not Take Ibuprofen ROS ROS ED Constitutional Constitutional ED: Denies chills or weight loss Eyes Eyes: Denies change in vision or diplopia ENT ENT ED: Denies ear pain, rhinorrhea or sore throat Cardiovascular Cardiovascular: Denies chest pain, orthopnea, palpitations or racing heartbeat Respiratory/Chest Respiratory/Chest: Denies cough, dyspnea or orthopnea Gastrointestinal Gastrointestinal: Reports abdominal pain and constipation; Denies diarrhea, nausea or vomiting Genitourinary Genitourinary ED: Denies dysuria, hematuria or urinary frequency Musculoskeletal Musculoskeletal: Denies arthralgias or myalgias Integumentary Denies abscess or rash Neurologic Neurologic: Denies headache(s) or weakness Psychiatric Psychiatric: Denies anxiety, depression, suicidal ideation or suicidal thoughts Endocrine Endocrinology: Denies polydipsia, polyphagia or polyuria Allergic/Immunologic Allergic/Immunologic ED: Denies mouth swelling, tongue swelling or urticaria EXAM Physical Exam Const Vital Signs: 03/02/22 01:15 Temperature 97.8 F Temperature Source Oral Pulse Rate 90 Respiratory Rate 17 Blood Pressure 162/88 H Blood Pressure Mean 112 Pulse Ox 100 Oxygen Delivery Method Room Air Positive well nourished and well developed General Appearance ED: well developed HEENT Reports normocephalic, head/scalp atraumatic and moist mucous membranes Eyes PERRL and EOMs intact bilaterally Neck no lymphadenopathy, supple and no JVD Resp normal respiratory effort and clear to auscultation bilaterally Cardio regular rate, regular rhythm and no murmurs GI Auscultation: normoactive bowel sounds Palpation: soft and tender epigastric; Negative for guarding, rigid, hepatomegaly, splenomegaly, mass, pulsatile mass or rebound tenderness present Back/Spine no CVA tenderness and normal ROM Extremity normal to inspection General Extremety ED: Negative for edema General Extremity: Negative for edema Neuro oriented x3 and CN's II-XII intact bilaterally Sensorium / Orientation: alert Motor Exam: strength 5/5 throughout Psych mental status grossly normal Mood & Affect: Negative for depressed or tearful Skin no rashes or lesions noted and no wounds MDM MDM MDM Narrative Medical decision making narrative: Basic blood work was obtained showed a white count of 10.3. CT of the abdomen pelvis shows no acute findings. There is no evidence of fecal impaction on the CT. She does have increased stool burden in the transverse colon and ascending colon compared to the descending. Her lipase is normal. At this point patient will take some magnesium citrate prescription for same. She understands that her abdominal cramping will probably get more intense as she tries to pass the stool. Return if worsening or concerns Lab Data Attestation: I reviewed the patient's lab results. Labs: Laboratory Results - last 24 hr 03/02/22 03/02/22 01:35 01:35 WBC 10.3 RBC 4.47 Hgb 13.2 Hct 40.5 MCV 90.6 MCH 29.5 MCHC 32.6 RDW Std Deviation 44.7 H RDW Coeff of Dylon 13.4 Plt Count 274 MPV 9.0 Immature Gran % (Auto) 0.400 Neut % (Auto) 67.9 Lymph % (Auto) 24.2 [place] % (Auto) 6.6 Eos % (Auto) 0.7 Baso % (Auto) 0.2 Absolute Neuts (auto) 7.0 Absolute Lymphs (auto) 2.48 Nucleated RBC % 0 Sodium 140 Potassium 3.5 Chloride 105 Carbon Dioxide 30.0 Anion Gap 5 BUN 12 Creatinine 0.89 Estim Creat Clear Calc 74.36 Est GFR (MDRD) Af Amer 86 Est GFR (MDRD) Non-Af 71 BUN/Creatinine Ratio 13.5 Glucose 101 Calcium 9.6 Total Bilirubin 0.40 AST 27 ALT 46 Alkaline Phosphatase 103 Total Protein 7.9 Albumin 3.6 Globulin 4.3 H Albumin/Globulin Ratio 0.8 L Lipase 98 Radiography Diagnostic Testing: Clinical Impression(s) from Imaging Studies Abdomen/Pelvis CT 03/02/22 01:36 IMPRESSION: No acute abnormality of the abdomen and pelvis. Electronically Signed: Christopher Roque MD at 2:14 EDT , Discharge Plan Triage Chief Complaint: Abd Pain ED Provider: [place] Dx/Rx/DC Orders Clinical Impression: Constipation, Abdominal pain Instructions: ED Constipation (Adult) Prescriptions: New magnesium citrate Solution 300 ml PO X1 PRN (Reason: constipation) Qty: 2 0RF No Action losartan [Cozaar] 25 mg tablet 25 mg PO DAILY levothyroxine 125 mcg tablet 137 mcg PO DAILY hydroxyzine pamoate [Vistaril] 25 mg Capsule 25 mg PO BID PRN (Reason: Anxiety) zolpidem [Ambien] 5 mg Tablet 5 mg PO QHS PRN (Reason: Sleep) escitalopram oxalate [Lexapro] 10 mg Tablet 10 mg PO DAILY Primary Care Provider: Milka Schneider Referrals: Milka Schneider MD [Primary Care Provider] - As Needed Disposition Disposition: Home, Self Care
[2022-03-02 01:43] LABS: Absolute Lymphocyte Count 2.48 X10^3/uL (0.83-4.51); Basophil# 0.02 X10^3/uL; Basophil% 0.2 % (0-1); Eosinophil# 0.07 X10^3/uL; Eosinophils% 0.7 % (0-5); Hematocrit 40.5 % (37-47); Hemoglobin 13.2 g/dL (12.0-15.0); Lymphocyte # 2.48 X10^3/ul (0.83-4.51); Lymphocyte % 24.2 % (19-41); Mean Corp Hgb Conc 32.6 g/dL (32-36); Mean Corpuscular Hgb 29.5 pg (27.0-32.0); Mean Corpuscular Volume 90.6 fL (81-99); Monocyte# 0.68 X10^3/uL; Monocyte% 6.6 % (0-10); NRBC Flagged by Analyzer 0 % (0-5); Neutrophil # 6.97 X10^3/uL (2.7-7.7); Neutrophil % 67.9 % (47-70); Platelet Count 274 K/mm3 (150-450); RBC Distribution Width CV 13.4 % (11.6-14.6); RBC Distribution Width SD 44.7 fl (35.1-43.9); Red Blood Count 4.47 M/mm3 (4.2-5.4); White Blood Count 10.3 K/mm3 (4.4-11.0)
[2022-03-02 02:08] LABS: ALB/GLOB Ratio 0.8 RATIO (0.9-2.4); AST(SGOT) 27 U/L (15-37); Alanine Aminotransfer ALT/SGPT 46 U/L (13-56); Albumin, Serum 3.6 g/dL (3.2-5.0); Alkaline Phosphatase 103 U/L (45-117); Anion Gap 5 (5-15); BUN 12 mg/dL (7-18); BUN/Creat Ratio 13.5 RATIO (10-20); Calcium,Total 9.6 mg/dL (8.5-10.1); Chloride 105 mmol/L (98-107); Creatinine, Serum 0.89 mg/dL (0.55-1.02); EST Glomerular Filtration Rate 71 mL/min (>60); Est Glom Filt Rate - Afr Amer 86 mL/min (>60); Estimated Creatinine Clearance 74.36 ml/min; Globulin 4.3 g/dL (2.2-4.2); Glucose 101 mg/dL (74-106); Lipase 98 U/L (73-393); Potassium 3.5 mmol/L (3.5-5.1); Protein, Total 7.9 g/dL (6.4-8.2); Sodium Level 140 mmol/L (136-145)
== END 2022-03-02 02:54 | disposition home or self-care (01) ==
PROVIDERS: Emergency Provider Emergency Medicine; PCP Family Medicine; Visit Provider Emergency Medicine
DX: R10.9 Unspecified abdominal pain (principal); K59.00 Constipation, unspecified; F41.9 Anxiety disorder, unspecified; Z87.891 Personal history of nicotine dependence; Z79.899 Other long term (current) drug therapy
CPT/HCPCS: 74177; 80053; 83690; 85025; 99283; Q9967; A4216

== ENCOUNTER → 2022-03-03 | Outpatient (CLI) | payer MEDICAID, SELFPAY ==
--- NOTE | 2022-03-03 14:48 | VDUE_ITS ---
Reason For Study: Pain Left Proximal Left jugular vein is spontaneous, widely patent, phasic, with no intraluminal echogenicity noted. Left subclavian vein is spontaneous, widely patent, phasic, with no intraluminal echogenicity noted. Left Arm Left axillary vein is spontaneous, patent, phasic, competent, compressible and demonstrates augmentation. Left brachial vein is compressible. Left cephalic vein is compressible. Left basilic vein is compressible. Left Lower Arm Left radial vein is compressible. Left ulnar vein is compressible. Patient Safety Preliminary report sent to [facility]. VL/Venous Duplex US, Unilateral Interpretation Summary Deep veins of the left upper extremity are patent and compressible segmentally. There is no evidence of deep vein thrombosis. The superficial veins of the left upper extremity, the basilic and cephalic veins, are patent and compressible. There is no evidence of left upper extremit y superficial thrombophlebitis involving the veins imaged. Ordering Physician: Benjamin Jose Referring Physician: Milka Schneider Performed By: Nettie Enamorado RVT ???
== END | disposition home or self-care (01) ==
LOC: CVS 14:46
PROVIDERS: PCP Family Medicine; Visit Provider Family Medicine
DX: M79.622 Pain in left upper arm (principal); R22.32 Localized swelling, mass and lump, left upper limb
CPT/HCPCS: 93971

== ENCOUNTER → 2022-03-31 | Outpatient (CLI) | payer MEDICAID, SELFPAY ==
--- NOTE | 2022-03-31 09:29 | US_ITS ---
STUDY: ULTRASOUND BREAST - RIGHT REASON FOR EXAM: Female, 51 years old. Bilateral palpable lumps. The patient is status post breast reduction surgery. TECHNIQUE: Axial and longitudinal images of the RIGHT breast were performed with a high resolution ultrasound transducer. # OF IMAGES: 38 COMPARISON: Comparison is made with prior mammogram done earlier today. FINDINGS: RIGHT Breast: There is a 1 cm x 1.2 cm x 0.3 cm mixed echogenicity breast lump at the 7 o''clock position breast at 4 cm from nipple. This is superficial and adjacent to the scar. This most likely represents postoperative changes. IMPRESSION: The palpable lump corresponds to a 1 cm x 1.2 cm x 0.3 cm nodule of mixed echogenicity superficially adjacent to the scar. This is at the 7 o''clock position breast a 4 cm from nipple. A four-month follow-up sonogram is recommended. ASSESSMENT CATEGORY: BIRADS Category 3: Probably Benign - Short-Interval Follow-up Suggested. A letter regarding these results will be sent to the patient by the facility within 30 days. Electronically Signed: Ivan Durand MD at 9:35 EDT , STUDY: ULTRASOUND BREAST - LEFT REASON FOR EXAM: Female, 51 years old. Palpable lump left breast. Prior breast reduction surgery. TECHNIQUE: Axial and longitudinal images of the LEFT breast were performed with a high resolution ultrasound transducer. # OF IMAGES: 38 COMPARISON: None. FINDINGS: LEFT Breast: There is a 1.1 cm x 1 cm x 0.8 cm cyst at the 7 o''clock position of the breast or 6 sinus from the nipple. There is also evidence of a 2.2 cm x 2.4 cm x 1.2 cm nodule of mixed echogenicity at the 12 o''clock position of the breast at 1 cm from nipple. This is adjacent to the scar. This may represent postoperative change. Short-term follow-up examination is recommended. US/Breast Limited Unilateral IMPRESSION: 2.2 cm x 2.4 cm x 1.2 cm nodular density of mixed echogenicity at the 12 o''clock position in the breast at 1 cm from nipple as pointed out by the abnormality. This is seen adjacent to the scar. A repeat sonogram in 4 months is recommended. ASSESSMENT CATEGORY: BIRADS Category 3: Probably Benign - Short-Interval Follow-up Suggested. A letter regarding these results will be sent to the patient by the facility within 30 days. Electronically Signed: Ivan Durand MD at 9:37 EDT ,
--- NOTE | 2022-03-31 09:30 | BI_ITS ---
MAMMOGRAPHY - BILATERAL DIAGNOSTIC REASON FOR EXAM: Female, 51 years old. Bilateral breast lumps at the site of the bilateral breast reduction surgery. PERTINENT HISTORY: Non-contributory. TECHNIQUE: Digital bilateral breast aram (3D mammographic acquisition) in the CC and MLO projections. 2-D mediolateral oblique (MLO) and craniocaudad (CC) views of both breasts were obtained. CAD: Full Field Digital Mammography with Computer Added Detection was performed. COMPARISON: Comparison is made with prior study dated 12/23/2020. FINDINGS: Breast Composition: There are scattered areas of fibroglandular density. There are no dominant masses or suspicious calcifications. Since prior study, the patient underwent bilateral reduction surgery. Postoperative changes are seen along the inferior aspect of both breasts. No other significant abnormalities are identified. BI/DIAG MAMM W/CAD, BILAT IMPRESSION: Status post bilateral breast reduction surgery. No abnormality is seen. The patient''s history of a breast lumps at the surgical sites, correlation with ultrasound is recommended.. ASSESSMENT CATEGORY: BIRADS Category 0: Incomplete. Need additional imaging evaluation. A letter regarding these results will be sent to the patient by the facility within 30 days. Approximately 10% of breast cancers are not detected by mammography. A normal mammogram should not delay biopsy of a clinically suspicious abnormality. Electronically Signed: Ivan Durand MD at 11:14 EDT ,
== END | disposition home or self-care (01) ==
LOC: OPBI 09:25
PROVIDERS: PCP Family Medicine; Referring Provider Nurse Practitioner Family; Visit Provider Nurse Practitioner Family
DX: N63.10 Unspecified lump in the right breast, unspecified quadrant (principal); N64.4 Mastodynia; Z98.890 Other specified postprocedural states; Z87.891 Personal history of nicotine dependence
CPT/HCPCS: 77062; 76642; 77066; G0279

== ENCOUNTER → 2022-04-03 | Outpatient (CLI) | payer MEDICAID, SELFPAY ==
[2022-04-03 18:53] LABS: T4 Free Direct 1.12 ng/dL (0.76-1.46); Thyroid Stim Hormone (TSH) < 0.01 uIU/mL (0.358-3.74)
== END | disposition home or self-care (01) ==
LOC: BFHLAB 14:18
PROVIDERS: PCP Family Medicine; Visit Provider Family Medicine
DX: E03.9 Hypothyroidism, unspecified (principal)
CPT/HCPCS: 36415; 84439; 84443

== ENCOUNTER → 2022-06-30 | Outpatient (CLI) | payer MEDICAID, SELFPAY ==
[2022-06-30 13:02] LABS: T4 Free Direct 0.75 ng/dL (0.76-1.46)
[2022-07-03 22:57] LABS: Thyroglobulin Antibody < 1.0 IU/mL (0.0-0.9); Thyroid Peroxidase AB 556 IU/mL (0-34)
== END | disposition home or self-care (01) ==
LOC: BFHLAB 09:31
PROVIDERS: PCP Family Medicine; Visit Provider Family Medicine
DX: E03.9 Hypothyroidism, unspecified (principal)
CPT/HCPCS: 36415; 84439; 84443; 86376; 86800

== ENCOUNTER → 2022-08-04 | Outpatient (CLI) | payer MEDICAID, SELFPAY ==
--- NOTE | 2022-08-04 13:46 | US_ITS ---
STUDY: ULTRASOUND BREAST - RIGHT REASON FOR EXAM: Female, 52 years old. Bilateral breast masses. Rest reduction surgery. TECHNIQUE: Axial and longitudinal images of the RIGHT breast were performed with a high resolution ultrasound transducer. # OF IMAGES: 37 COMPARISON: Comparison is made with prior ultrasound of the right breast dated 03/31/2022. FINDINGS: RIGHT Breast: There is a 1 cm x 1 cm x 0.4 cm nodular density at the 7 o''clock position of the breast at 4 cm from the nipple. This is superficial and corresponds to the scar. This is unchanged. There is also evidence of a 3 mm x 3 mm by 4 mm cyst at the 8 o''clock position of the breast at 4 cm nipple. IMPRESSION: Stable appearance of the nodular density at the level of the surgical scar. 3 mm x 3 mm x 4 mm cyst at 8 o''clock position of the breast at 4 cm from nipple. ASSESSMENT CATEGORY: BIRADS Category 2: Benign. A letter regarding these results will be sent to the patient by the facility within 30 days. Electronically Signed: Ivan Durand MD at 15:07 EST , STUDY: ULTRASOUND BREAST - LEFT REASON FOR EXAM: Female, 52 years old. Left breast nodules. TECHNIQUE: Axial and longitudinal images of the LEFT breast were performed with a high resolution ultrasound transducer. # OF IMAGES: 37 COMPARISON: Comparison is made with prior mammogram dated 03/31/2022. FINDINGS: LEFT Breast: There is a 9 mm x 9 mm x 8 mm cyst at the 7 o''clock position of the breast at 6 cm from the nipple. This is essentially unchanged. There is also evidence of a 2.3 cm x 0.8 cm x 1.9 cm nodule of mixed echogenicity at the 12 o''clock position of the breast 1 cm. From the nipple. This most likely consistent with surgical scar. There has been no change. US/Breast Limited Unilateral IMPRESSION: Stable examination. Routine mammographic follow-up recommended. ASSESSMENT CATEGORY: BIRADS Category 2: Benign. A letter regarding these results will be sent to the patient by the facility within 30 days. Electronically Signed: Ivan Duarnd MD at 15:08 EST ,
== END | disposition home or self-care (01) ==
LOC: OPUS 13:46
PROVIDERS: PCP Family Medicine; Visit Provider Surgery
DX: N64.4 Mastodynia (principal); N64.1 Fat necrosis of breast; N63.20 Unspecified lump in the left breast, unspecified quadrant; Z98.890 Other specified postprocedural states; N63.10 Unspecified lump in the right breast, unspecified quadrant
CPT/HCPCS: 76642

== ENCOUNTER → 2022-08-17 | Outpatient (CLI) | payer MEDICAID, SELFPAY ==
[2022-08-17 16:11] LABS: T4 Free Direct 0.91 ng/dL (0.76-1.46)
== END | disposition home or self-care (01) ==
LOC: BFHLAB 13:23
PROVIDERS: PCP Family Medicine; Visit Provider Family Medicine
DX: E03.9 Hypothyroidism, unspecified (principal)
CPT/HCPCS: 36415; 84439; 84443

== ENCOUNTER 2022-09-13 04:13 | Emergency (ER) | payer MEDICAID, SELFPAY ==
[2022-09-13 04:14] VITALS: BP 184/101; PULSE 98; RESP 19; TEMP 36.6; O2SAT 99; BMI 11.2
[2022-09-13 04:18] VITALS: O2SAT 98
--- NOTE | 2022-09-13 05:28 | EDS_ITS ---
HPI History of Present Illness Chief Complaint: Anxiety Informant: patient Onset/Context/Timing Onset: Today Context: Sudden Onset Timing: Intermittent Quality: Short of breath, dizzy Location: Chest Worsened by: Nothing Relieved by: Certain positions, rubbing her abdomen Narrative Narrative: Patient presents with acute anxiety attacks that began tonight. Patient states they have been intermittent for the past few hours. Patient states they come on rather suddenly. Patient states she feels short of breath and dizzy. Patient also admits to some palpitations with them. Patient states it is better with certain positions and with rubbing her abdomen. Patient states nothing makes them worse. Patient states she takes BuSpar and Lexapro for her anxiety. Patient states she has been taking these as prescribed and has not missed any doses. Patient denies any fevers or chills. Patient denies any nausea or vomiting. [facility] Medical History Allergies Anginal equivalent Anxiety Anxiety Back problem Breast pain, left Carpal tunnel syndrome Chronic neck pain Chronic thoracic back pain Dietary restriction Difficulty swallowing Fat necrosis of breast Former smoker Generalized headaches GERD (gastroesophageal reflux disease) History of echocardiogram History of staph infection History of steroid therapy History of stress test History of ulceration Hormone deficiency Hypertension Hypothyroidism Intertrigo Macromastia Marijuana use Mass of left breast Mass of right breast Migraine headache Shoulder pain Vision problem Wears glasses Wears partial dentures Home Medications losartan 25 mg tablet (Cozaar) 25 mg PO DAILY 01/27/21 [History Last Taken 08/03/21] hydroxyzine pamoate 25 mg capsule (Vistaril) 25 mg PO BID PRN Anxiety 02/27/21 [History Last Taken 08/03/21] zolpidem 5 mg tablet (Ambien) 5 mg PO QHS PRN Sleep 07/21/21 [History Last Taken Unknown] escitalopram oxalate 10 mg tablet (Lexapro) 10 mg PO DAILY 02/12/22 [History Last Taken Unknown] magnesium citrate 300 ml PO X1 PRN constipation #2 BOTTLES 03/02/22 [Rx Last Taken Unknown] levothyroxine 125 mcg tablet 50 mcg PO DAILY thyroid 06/23/22 [History Last Taken Unknown] omeprazole magnesium 10 mg oral suspension,delayed release (Prilosec) 10 mg PO BID 06/23/22 [History Last Taken Unknown] Allergy/AdvReac Type Severity Reaction Status Date / Time azithromycin Allergy Diarrhea Verified 06/23/22 14:06 [From Zithromax Z-Keo] sumatriptan [From Imitrex] Allergy TUNNEL Verified 06/23/22 14:06 VISION sumatriptan succinate Allergy TUNNEL Verified 06/23/22 14:06 [From Imitrex] VISION tramadol AdvReac nausea and Verified 06/23/22 14:06 vomiting Family History Other Anxiety Depression Epilepsy Hormone deficiency Hypertension Seizures Surgical History History of bilateral breast reduction surgery History of carpal tunnel release History of esophagogastroduodenoscopy (EGD) S/P correction of deviated nasal septum S/P hysterectomy S/P laparoscopic cholecystectomy S/P left knee surgery S/P tubal ligation S/P wisdom tooth extraction Social History Smoking Status: Former smoker alcohol intake: never substance use type: does not use additional social history: Does Not Take Aspirin Does Not Take Ibuprofen ROS ROS ED Constitutional Constitutional ED: Denies chills or fever(s) Eyes Eyes: Denies blurry vision or change in vision ENT ENT ED: Denies rhinorrhea or sore throat Cardiovascular Cardiovascular: Denies chest pain or palpitations Respiratory/Chest Respiratory/Chest: Denies cough or dyspnea Gastrointestinal Gastrointestinal: Denies nausea or vomiting Genitourinary Genitourinary ED: Denies dysuria or hematuria Musculoskeletal Musculoskeletal: Reports back pain; Denies neck pain Integumentary Denies abscess or rash Neurologic Neurologic: Denies headache(s) or weakness Psychiatric Psychiatric: Reports anxiety Allergic/Immunologic Allergic/Immunologic ED: Denies mouth swelling or urticaria EXAM Physical Exam Const Vital Signs: 09/13/22 04:14 09/13/22 04:18 Temperature 97.9 F Temperature Source Temporal Pulse Rate 98 Respiratory Rate 19 H Blood Pressure 184/101 H Blood Pressure Mean 128 Pulse Ox 99 98 Oxygen Delivery Method Room Air Room Air Positive well nourished and well developed General Appearance ED: well developed and NAD HEENT Reports moist mucous membranes Neck supple and no JVD Resp normal respiratory effort and clear to auscultation bilaterally Cardio regular rate, regular rhythm and no murmurs GI normal to inspection, nondistended, normoactive bowel sounds and non-tender Palpation: soft Extremity normal to inspection General Extremety ED: Negative for edema or tenderness General Extremity: Negative for edema Neuro oriented x3, CN's II-XII intact bilaterally and no sensory deficits noted Sensorium / Orientation: alert Motor Exam: strength 5/5 throughout Psych mental status grossly normal Skin no rashes or lesions noted MDM MDM MDM Narrative Medical decision making narrative: Patient states this feels similar to prior panic attacks. Patient was given a dose of Vistaril here. Patient was instructed to follow-up with her primary care physician in 3 to 5 days for reevaluation. Patient was instructed return if worse in any way. Patient understood and was agreeable with the plan. All questions were answered. Discharge Plan Triage Chief Complaint: Anxiety ED Provider: Tomas Moreno Dx/Rx/DC Orders Clinical Impression: Anxiety, Chronic thoracic back pain Instructions: ED Anxiety Reaction, ED Panic Attack Prescriptions: No Action losartan [Cozaar] 25 mg tablet 25 mg PO DAILY Prilosec 10 mg susp,delayed release for recon 10 mg PO BID levothyroxine 125 mcg tablet 50 mcg PO DAILY hydroxyzine pamoate [Vistaril] 25 mg Capsule 25 mg PO BID PRN (Reason: Anxiety) zolpidem [Ambien] 5 mg Tablet 5 mg PO QHS PRN (Reason: Sleep) escitalopram oxalate [Lexapro] 10 mg Tablet 10 mg PO DAILY magnesium citrate Solution 300 ml PO X1 PRN (Reason: constipation) Qty: 2 0RF Primary Care Provider: Milka Schneider Referrals: Milka Schneider MD [Primary Care Provider] - 3-5 Days Disposition Disposition: Home, Self Care
[2022-09-13] MEDS: hydrOXYzine PAM 25 MG Capsule 50 MG PO (06:06)
[2022-09-13 07:06] VITALS: BP 134/69; PULSE 71; RESP 15; O2SAT 98
== END 2022-09-13 07:07 | disposition home or self-care (01) ==
PROVIDERS: Emergency Provider Emergency Medicine; PCP Family Medicine; Visit Provider Emergency Medicine
DX: F41.9 Anxiety disorder, unspecified (principal); M54.6 Pain in thoracic spine; G89.29 Other chronic pain; Z87.891 Personal history of nicotine dependence; Z79.899 Other long term (current) drug therapy
CPT/HCPCS: 99283

== ENCOUNTER 2022-10-06 11:40 | Day surgery (SDC) | payer MEDICAID, SELFPAY ==
--- NOTE | 2022-10-03 13:46 | EKG12_ITS ---
Test Reason : PRE OP Blood Pressure : / mmHG Vent. Rate : 076 BPM Atrial Rate : 076 BPM P-R Int : 186 ms QRS Dur : 098 ms QT Int : 386 ms P-R-T Axes : 053 059 074 degrees QTc Int : 434 ms Normal sinus rhythm Nonspecific ST abnormality Abnormal ECG Confirmed by LYNNE VALENZUELA, NURYS ([id number]), digital editor LILIANA FLAHERTY ([id number]) on 10/05/2022 7:44:53 AM Referred By: Alexsander Eckert Confirmed By:NURYS BATISTA MD
[2022-10-06] VITALS (9 sets, daily range): BP systolic 121–155; BP diastolic 72–89; PULSE 78–113; RESP 14–18; TEMP 36.1–36.8; O2SAT 96–100; BMI 25.0
--- NOTE | 2022-10-06 11:53 | HP.PCM_ITS ---
History and Physical Date of Admission: 10/06/22 laint: left breast mass pain Roll Inspector Required: No Accompanied by: Is patient in pain?: Yes (Left Breast/Rib Area Pressure Pain, very sensitive to the touch) Pain scale (1-10): 5 Allergies azithromycin [From Zithromax Z-Keo] Allergy (Verified 06/23/22 14:06) Diarrheasumatriptan [From Imitrex] Allergy (Verified 06/23/22 14:06) TUNNEL VISIONsumatriptan succinate [From Imitrex] Allergy (Verified 06/23/22 14:06) TUNNEL VISIONtramadol Adverse Reaction (Verified 06/23/22 14:06) nausea and vomiting Medications losartan 25 mg tablet (Cozaar) 25 mg PO DAILY 01/27/21 [History Confirmed 06/23/22] hydroxyzine pamoate 25 mg capsule (Vistaril) 25 mg PO BID PRN Anxiety 02/27/21 [History Confirmed 06/23/22] zolpidem 5 mg tablet (Ambien) 5 mg PO QHS PRN Sleep 07/21/21 [History Confirmed 06/23/22] escitalopram oxalate 10 mg tablet (Lexapro) 10 mg PO DAILY 02/12/22 [History Confirmed 06/23/22] magnesium citrate 300 ml PO X1 PRN constipation #2 BOTTLES 03/02/22 [Rx Confirmed 06/23/22] levothyroxine 125 mcg tablet 50 mcg PO DAILY thyroid 06/23/22 [History Confirmed 06/23/22] omeprazole magnesium 10 mg oral suspension,delayed release (Prilosec) 10 mg PO BID 06/23/22 [History Confirmed 06/23/22] PFSH Medical History? Allergies Anginal equivalent Anxiety Anxiety Back problem Breast pain, left Carpal tunnel syndrome Chronic neck pain Chronic thoracic back pain Dietary restriction Difficulty swallowing Fat necrosis of breast Former smoker Generalized headaches GERD (gastroesophageal reflux disease) History of echocardiogram History of staph infection History of steroid therapy History of stress test History of ulceration Hormone deficiency Hypertension Hypothyroidism Intertrigo Macromastia Marijuana use Mass of left breast Mass of right breast Migraine headache Shoulder pain Vision problem Wears glasses Wears partial dentures Surgical History? History of bilateral breast reduction surgery History of carpal tunnel release History of esophagogastroduodenoscopy (EGD) S/P correction of deviated nasal septum S/P hysterectomy S/P laparoscopic cholecystectomy S/P left knee surgery S/P tubal ligation S/P wisdom tooth extraction Family History? Other Anxiety Depression Epilepsy Hormone deficiency Hypertension Seizures Social History? Smoking Status:? Former smoker alcohol intake:? never substance use type:? does not use additional social history:? Does Not Take Aspirin Does Not Take Ibuprofen HPI evaluation cameron breast masses Details: HISTORY OF PRESENT ILLNESS 52 year old female presents with persistent bilateral breast masses after her bilateral breast reduction mammaplasty surgery on 08/03/21.?? She states that she has been feeling well and her neck and upper back pain have improved since her surgery.? She has no further wound healing issues.? There was a nodular mass on her right lateral breast that the patient states she can barely feel at this time.? It had been painful.? There were nodular masses on her left breast at the superior aspect of her nipple and on the left medial breast near the inframammary fold.? They are persistently painful.? She had a mammogram done on 03/31/22.? It showed scattered areas of fibroglandular density.? There are no dominant masses or suspicious calcifications.? Since prior study, the patient underwent bilateral reduction surgery.? Postoperative changes are seen along the inferior aspect of both breasts.? No other significant abnormalities are identified.? Correlation with ultrasound is recommended. She had an ultrasound done on 03/31/22.? It showed on the right breast there is a 1 cm x 1.2 cm x 0.3 cm mixed echogenicity breast lump at the 7 o''clock position breast at 4 cm from nipple.? This is superficial and adjacent to the scar.? This most likely represents postoperative changes.? On the left breast there is a 1.1 cm x 1 cm x 0.8 cm cyst at the 7 o''clock position of the breast or 6 cm from the nipple.? There is also evidence of a 2.2 cm x 2.4 cm x 1.2 cm nodule of mixed echogenicity at the 12 o''clock position of the breast at 1 cm from nipple.? This is adjacent to the scar.? This may represent postoperative change. A four-month follow-up sonogram is recommended.? She comes in today for further evaluation and treatment. REVIEW OF SYSTEMS General - Denies fever. Has a history of fatigue.? Eyes - Denies cataracts and glaucoma. ENT - Denies nasal congestion and sore throat. Has seasonal allergies. Endocrine - Denies excessive thirst and urination. History of hypothyroidism.? Had bilateral painful breast masses with improvement in the right breast mass. Skin - Denies suspicious lesions and skin cancer.? ? Musculoskeletal - Has joint pain and joint stiffness. ? Denies weakness of muscles and joints, and arthritis.? Has neck pain and thoracic back pain that has improved since the breast reduction surgery.? She receives injection of Toradol and steroids into her upper back and neck to relieve this.? She has not had any steroid injections in over 6 months. Has a history of carpal tunnel syndrome on the right. Neuro - History of headaches. Cardiovascular - Denies chest pain, fatigue, and shortness of breath with exertion. Has HTN. Psych - Has a history of anxiety and depression. Respiratory - Denies chronic cough and shortness of breath.? Patient is a former smoker. Gastrointestinal - Denies nausea, vomiting, diarrhea, and constipation. Hematologic - Denies abnormal bruising and bleeding. Genitourinary - Denies hematuria and urinary frequency. ? PHYSICAL EXAMINATION General - Alert and oriented.?? Her bra size is a B cup. HEENT - PERRL. EOMI. Throat is clear. Neck - Supple.? Nontender.? No cervical adenopathy.? Lungs- Clear to auscultation. Heart - Regular rate and rhythm. Breasts - Patient's breasts are soft and symmetrical.? Good contour noted.? Nipples are viable. Her incisions on bilateral breasts after breast reduction surgery remain healed.? She had a palpable mass on her right lateral breast which is hard to palpate today.? It is nontender.? She has a palpable mass on her left breast on the superior aspect of her nipple.? Measures 2 cm.? Tender to palpation.? She also has a palpable mass on her left breast medial to the nipple and inferiorly near the inframammary fold.? Measures 1 cm.? Tender to palpation. ? No axillary adenopathy noted. Abdomen - Soft and non distended. Extremities - FROM.? No axillary adenopathy.? Radial pulses are palpable. Neuro - CN II-XII grossly intact. Psych - Normal mood and affect. ASSESSMENT 1.? Right lateral breast mass, resolved. 2.? 2 cm painful left breast mass at superior aspect nipple. 3.? 1 cm painful left breast mass medial to the nipple and inferiorly near the inframammary fold. 4.? Fat necrosis breasts. 5.? Former smoker. 6.? History of breast reduction. 7.? History of MRSE right breast. PLAN Ultrasound reviewed from 03/31/22. Mammogram reviewed from 03/31/22. The bilateral breast masses are most likely fat necrosis from the breast reduction surgery.? The right breast mass has resolved clinically. The left breast masses x2 are still palpable and still painful. It was recommended to repeat the Ultrasound in 4 months which would be next month in July.? Will go ahead and schedule that.? It should show near resolution of the right lateral breast mass.? If not, it may need excision at the same time as the masses x2 on the left breast. Will schedule the surgery next month after the Ultrasound. Surgery will be done on an outpatient basis under general anesthesia. Will send tissue to Pathology for analysis to rule out carcinoma.? Will send tissue to Microbiology for culture.? A positive culture will necessitate antibiotic therapy. Drains may be necessary depending on the degree of dissection necessary to remov e these painful masses. Patient was informed of the risks and complications of the procedure including alternatives to surgery.? These were discussed with the patient personally.? Patient voices understanding and wishes to proceed. Some of the risks and complications were included in a form from the [employer]. Massage the healed incisions 1-2 times daily with lotion to help soften scarring. It was recommended to the patient to use sunscreen when outside to help minimize darkening of the healing scars. We will continue to monitor the areas of firmness on both the right and left breast, which most likely is fat necrosis.? We will order a diagnostic mammogram and ultrasound of each breast. Follow up after the testing has been obtained.
--- NOTE | 2022-10-06 11:53 | PCM.HP.BLA ---
History and Physical Date of Admission: 10/06/22 HISTORY OF PRESENT ILLNESS 52 year old female presents with persistent bilateral breast masses after her bilateral breast reduction mammaplasty surgery on 08/03/21.?? She states that she has been feeling well and her neck and upper back pain have improved since her surgery.? She has no further wound healing issues.? There is a painful nodular mass on her right breast lateral to the nipple and a painful mass right breast lateral to the nipple and inferiorly near the inframammary fold.? There were nodular masses on her left breast at the superior aspect of her nipple and on the left medial breast near the inframammary fold.? They are persistently painful.?? She had a mammogram done on 03/31/22.? It showed scattered areas of fibroglandular density.? There are no dominant masses or suspicious calcifications.? Since prior study, the patient underwent bilateral reduction surgery.? Postoperative changes are seen along the inferior aspect of both breasts.? No other significant abnormalities are identified.? Correlation with ultrasound is recommended. She had an ultrasound done on 03/31/22.? It showed on the right breast there is a 1 cm x 1.2 cm x 0.3 cm mixed echogenicity breast lump at the 7 o''clock position breast at 4 cm from nipple.? This is superficial and adjacent to the scar.? This most likely represents postoperative changes.? On the left breast there is a 1.1 cm x 1 cm x 0.8 cm cyst at the 7 o''clock position of the breast or 6 cm from the nipple.? There is also evidence of a 2.2 cm x 2.4 cm x 1.2 cm nodule of mixed echogenicity at the 12 o''clock position of the breast at 1 cm from nipple.? This is adjacent to the scar.? This may represent postoperative change. A four-month follow-up sonogram is recommended.? She had repeat Ultrasound on 08/04/22. It showed the right breast there is a 1 x 0.4 cm nodular density at the 7 oclock position of the breast at 4 cm from the nipple. This is superficial and corresponds to the scar. This is unchanged. There is also evidence of a 0.3 x 0.3 x 0.4 cm cyst at the 8 oclock position of the breast at 4 cm from the nipple. The left breast there is a 0.9 x 0.9 x 0.8 cm cyst at the 7 oclock position of the breast at 6 cm from the nipple. This is essentially unchanged. There is also evidence of a 2.3 x 0.8 x 1.9 cm nodule of mixed echogenicity at the 12 oclock position of the breast 1 cm from the nipple. This most likely consistent with surgical scar. There has been no change. PAST MEDICAL HISTORY Anginal equivalent Anxiety Back problem Breast pain, left Carpal tunnel syndrome Chronic neck pain Chronic thoracic back pain Dietary restriction Difficulty swallowing Fat necrosis of breast Former smoker Generalized headaches GERD (gastroesophageal reflux disease) History of echocardiogram History of staph infection History of steroid therapy History of stress test History of ulceration Hormone deficiency Hypertension Hypothyroidism Intertrigo Macromastia Marijuana use Mass of left breast Mass of right breast Migraine headache Shoulder pain Vision problem Wears glasses Wears partial dentures PAST SURGICAL HISTORY History of bilateral breast reduction surgery History of carpal tunnel release History of esophagogastroduodenoscopy (EGD) S/P correction of deviated nasal septum S/P hysterectomy S/P laparoscopic cholecystectomy S/P left knee surgery S/P tubal ligation S/P wisdom tooth extraction ALLERGIES azithromycin [From Zithromax Z-Keo] sumatriptan succinate [From Imitrex] tramadol MEDICATIONS losartan (Cozaar) hydroxyzine pamoate zolpidem (Ambien) escitalopram oxalate (Lexapro) magnesium citrate levothyroxine omeprazole magnesium FAMILY HISTORY Other - Anxiety, Depression, Epilepsy, Hormone deficiency, Hypertension, Seizures SOCIAL HISTORY Smoking Status:? Former smoker alcohol intake:? never substance use type:? does not use REVIEW OF SYSTEMS General - Denies fever. Has a history of fatigue.? Eyes - Denies cataracts and glaucoma. ENT - Denies nasal congestion and sore throat. Has seasonal allergies. Endocrine - Denies excessive thirst and urination. History of hypothyroidism.? Had bilateral painful breast masses with improvement in the right breast mass. Skin - Denies suspicious lesions and skin cancer.? ? Musculoskeletal - Has joint pain and joint stiffness. ? Denies weakness of muscles and joints, and arthritis.? Has neck pain and thoracic back pain that has improved since the breast reduction surgery.? She receives injection of Toradol and steroids into her upper back and neck to relieve this.? She has not had any steroid injections in over 6 months. Has a history of carpal tunnel syndrome on the right. Neuro - History of headaches. Cardiovascular - Denies chest pain, fatigue, and shortness of breath with exertion. Has HTN. Psych - Has a history of anxiety and depression. Respiratory - Denies chronic cough and shortness of breath.? Patient is a former smoker. Gastrointestinal - Denies nausea, vomiting, diarrhea, and constipation. Hematologic - Denies abnormal bruising and bleeding. Genitourinary - Denies hematuria and urinary frequency. ? PHYSICAL EXAMINATION General - Alert and oriented.?? Her bra size is a B cup. HEENT - PERRL. EOMI. Throat is clear. Neck - Supple.? Nontender.? No cervical adenopathy.? Lungs- Clear to auscultation. Heart - Regular rate and rhythm. Breasts - Patient's breasts are soft and symmetrical.? Good contour noted.? Nipples are viable. Her incisions on bilateral breasts after breast reduction surgery remain healed.? She had a palpable mass on her right lateral breast which is hard to palpate today.? It is nontender.? She has a palpable mass on her left breast on the superior aspect of her nipple.? Measures 2 cm.? Tender to palpation.? She also has a palpable mass on her left breast medial to the nipple and inferiorly near the inframammary fold.? Measures 1 cm.? Tender to palpation. ? No axillary adenopathy noted. Abdomen - Soft and non distended. Extremities - FROM.? No axillary adenopathy.? Radial pulses are palpable. Neuro - CN II-XII grossly intact. Psych - Normal mood and affect. ASSESSMENT 1.? 1 cm painful right breast mass lateral to the nipple and inferiorly near the inframammary fold. 2. 0.4 cm painful right breast mass lateral to the nipple. 3.? 2 cm painful left breast mass at superior aspect nipple. 4.? 1 cm painful left breast mass medial to the nipple and inferiorly near the inframammary fold. 5.? Fat necrosis bilateral breasts. 6.? Former smoker. 7.? History of bilateral breast reduction mammaplasty. 8.? History of MRSE right breast. PLAN Ultrasound reviewed from 08/04/22 and 03/31/22. Mammogram reviewed from 03/31/22. Ultrasound from 08/04/22 showed the right breast there is a 1 x 0.4 cm nodular density at the 7 oclock position of the breast at 4 cm from the nipple. This is superficial and corresponds to the scar. This is unchanged. There is also evidence of a 0.3 x 0.3 x 0.4 cm cyst at the 8 oclock position of the breast at 4 cm from the nipple. The left breast there is a 0.9 x 0.9 x 0.8 cm cyst at the 7 oclock position of the breast at 6 cm from the nipple. This is essentially unchanged. There is also evidence of a 2.3 x 0.8 x 1.9 cm nodule of mixed echogenicity at the 12 oclock position of the breast 1 cm from the nipple. This most likely consistent with surgical scar. There has been no change. The bilateral breast masses are most likely fat necrosis from the breast reduction surgery.? But they are persistent. Recommend excision of these painful masses bilateral breasts and send them to Pathology for analysis to rule out carcinoma. By removing them, they won't interfere with breast cancer surveillance in the future. Will send tissue to Microbiology for culture.? A positive culture will necessitate antibiotic therapy. Surgery will be done on an outpatient basis under general anesthesia. Drains may be necessary depending on the degree of dissection necessary to remove these painful masses. Patient was informed of the risks and complications of the procedure including alternatives to surgery.? These were discussed with the patient personally.? Patient voices understanding and wishes to proceed. Some of the risks and complications were included in a form from the [employer]. Potential risks and complications included but not inclusive of bleeding, infection, seroma, hematoma, bruising, swelling, prolonged need for drains, loss of sensation to skin, partial or complete loss of skin flap and/or nipple, wound breakdown, need for wound care, poor scarring, poor aesthetic outcome, intra operative cardiac or neurologic events, DVT, PE, and reaction to anesthesia. Assessment & Plan Assessment/Plan (1) Mass of left breast: (2) Breast pain, left: (3) Mass of right breast: (4) Breast pain, right: (5) Fat necrosis of breast: (6) History of bilateral breast reduction surgery: (7) Methicillin resistant Staphylococcus epidermidis infection: (8) Former smoker:
[2022-10-06] MEDS: Magnesium 1 GM over 15 mins IV (12:21)
[2022-10-06] MEDS: Lactated Ringers 1,000 ML 40 ML IV (12:21)
[2022-10-06] MEDS: Scopolamine 1mg/72hr Patch 1 PATCH TD (12:50)
[2022-10-06 12:51] LABS: Bedside Glucose 86 mg/dL (74-106)
[2022-10-06] MEDS: Cefazolin 2 GM in 0.9% Normal Saline 100 ML IV (12:59)
--- NOTE | 2022-10-06 13:45 | MASS_PTH ---
PATIENT: HELEN PETTIT LOC: [facility] [place] U#:[id number] AGE/SX: 52/F ROOM: RE10/06/[address]: Dr. Alexsander Eckert MD : 1970 BED: DIS: 10/06/2022 SPEC #: [id number] RECD: 10/08/22 16:10 STATUS: RONAK EARL #: [id number] HALEY: 10/06/22 13:[address]: Alexsander Eckert DEPT: SURGICAL PATHOLOGY RECD BY: Dianna Rojas ENTERED: 10/09/22 07:25 SP TYPE: Mass OTHR DR: Dr. Milka Schneider MD Tissues: A - Breast, NOS B - Breast, NOS C - Breast, NOS D - Breast, NOS Procedures: Surgery Specimen Level IV HEADER OPERATION: ERAS, excision of painful masses x2, bilateral breast PRE-OP DIAGNOSIS: Persistent bilateral breast masses TISSUE SUBMITTED: A ? 1.0 cm painful right breast mass lateral to nipple and inferior near infra-mammary fold, B - 0.4 cm painful right breast mass lateral to nipple, C ? 2.0 cm painful left breast mass at superior aspect nipple, D ? 1.0 cm painful left breast mass medial to nipple and inferiorly near inframammary fold MICROSCOPIC DIAGNOSIS A. 1.0 cm right breast mass, excision: Nodular fat necrosis with associated fibrosis and mild chronic inflammation. Skin with dermal fibrosis. B. 0.4 cm right breast mass, excision: Focal fat necrosis, fibrosis and collagenized stroma. C. 2.0 cm nodular of left breast, excision: Organized fat necrosis with benign histiocytic reaction, focal microcalcifications and mild chronic inflammation. D. 1.0 cm nodule of left breast, biopsy: Fat necrosis with fibrosis, dystrophic microcalcifications, collagenization and mild chronic inflammation. AM:aurelia 10/11/2022 MICROSCOPIC DESCRIPTION Slides are reviewed. GROSS DESCRIPTION A - Received in fixative is one container labeled with the patient's name and designated right breast mass. The specimen consists of an irregular fragment of light luis-pink skin measuring 4.2 x 1.2 cm. Attached to this is an irregular fragment of yellow fatty tissue measuring 6.0 x 2.2 x 0.8 cm. The specimen is unoriented. Serial sections do not reveal distinct mass lesions. Present free in the container is an irregular rubbery fragment of luis tissue measuring 1.3 x 1.0 x 0.2 cm. The specimen is sectioned and totally submitted in four cassettes after additional fixation. The nodule free in container is inked blue and submitted in cassette 1. B - Received in fixative is one container labeled with the patient's name and designated right breast lateral to nipple. The specimen consists of a single rubbery yellow-white nodule measuring 1.0 cm in greatest diameter. This fragment is submitted in its entirety in cassette 1. Also present free in the container is an irregular fragment of yellow fatty tissue measuring 2.5 x 2.3 x 0.2 cm. This fragment is submitted in its entirety in cassette 2 after additional fixation. C - Received in fixative is one container labeled with the patient's name and designated left breast mass superior aspect of nipple. The specimen consists of an elongated, rubbery fragment of luis-white soft tissue measuring 6.0 x 2.5 x 1.5 cm. The specimen is serially sectioned to reveal firm, yellow-white cut surfaces. Gis Analyst Developer sections are submitted in two cassettes after additional fixation. D - Received in fixative is one container labeled with the patient's name and designated 1.0 cm nodule left breast mass medial to the nipple. The specimen consists of three irregular fragments of luis-yellow soft tissue ranging in size from 0.5 to 3.0 cm. Serial sections reveal yellow, chalky cut surfaces. The specimen is sectioned and totally submitted in one cassette after additional fixation. / MAZIN:aurleia 10/09/2022 TC:3 CPT: 75172 x4
[2022-10-06] MEDS: Lactated Ringers 1,000 ML 15 ML IV (13:51)
[2022-10-06] MEDS: Lidocaine 1%/Epi 1:200 (30ml) 30 ML AMPUL (15:06)
--- NOTE | 2022-10-06 15:46 | OP.PCM_ITS ---
Problems Associated Problem List Diagnoses (1) Breast pain, left: (2) Mass of right breast: (3) Breast pain, right: (4) Mass of left breast: (5) Fat necrosis of breast: (6) Former smoker: (7) History of bilateral breast reduction surgery: (8) Methicillin resistant Staphylococcus epidermidis infection: Report of Operation Date of Procedure: 10/06/22 Pre-Operative Diagnosis: 1. 1 cm painful mass right breast lateral to the nipple and inferiorly near the inframammary fold. 2. 0.4 cm painful mass right breast lateral to the nipple. 3. 2 cm painful mass left breast at superior aspect nipple. 4. 1 cm painful mass left breast medial to the nipple and inferiorly near the inframammary fold. 5. Fat necrosis bilateral breasts. 6. Former smoker. 7. History of bilateral breast reduction mammaplasty. 8. History of MRSE right breast. Post-Operative Diagnosis: Same. Surgery/Procedure Performed:: 1. Excision 1 cm painful mass right breast lateral to the nipple and inferiorly near the inframammary fold. 2. Excision 0.4 cm painful mass right breast lateral to the nipple. 3. Excision 2 cm painful mass left breast at superior aspect nipple. 4. Excision 1 cm painful mass left breast medial to the nipple and inferiorly near the inframammary fold. Description of Surgical Findings:: 52 year old female presents with persistent bilateral breast masses after her bilateral breast reduction mammaplasty surgery on 08/03/21.?? She states that she has been feeling well and her neck and upper back pain have improved since her surgery.? She has no further wound healing issues.? There is a painful nodular mass on her right breast lateral to the nipple and a painful mass right breast lateral to the nipple and inferiorly near the inframammary fold.? There were nodular masses on her left breast at the superior aspect of her nipple and on the left medial breast near the inframammary fold.? They are persistently painful.?? She had a mammogram done on 03/31/22.? It showed scattered areas of fibroglandular density.? There are no dominant masses or suspicious calcifications.? Since prior study, the patient underwent bilateral reduction surgery.? Postoperative changes are seen along the inferior aspect of both breasts.? No other significant abnormalities are identified.? Correlation with ultrasound is recommended. She had an ultrasound done on 03/31/22.? It showed on the right breast there is a 1 cm x 1.2 cm x 0.3 cm mixed echogenicity breast lump at the 7 o''clock position breast at 4 cm from nipple.? This is superficial and adjacent to the scar.? This most likely represents postoperative changes.? On the left breast there is a 1.1 cm x 1 cm x 0.8 cm cyst at the 7 o''clock position of the breast or 6 cm from the nipple.? There is also evidence of a 2.2 cm x 2.4 cm x 1.2 cm nodule of mixed echogenicity at the 12 o''clock position of the breast at 1 cm from nipple.? This is adjacent to the scar.? This may represent postoperative change. A four-month follow-up sonogram is recommended.? She had repeat Ultrasound on 08/04/22.? It showed the right breast there is a 1 x 0.4 cm nodular density at the 7 oclock position of the breast at 4 cm from the nipple.? This is superficial and corresponds to the scar.? This is unchanged.? There is also evidence of a 0.3 x 0.3 x 0.4 cm cyst at the 8 oclock position of the breast at 4 cm from the nipple.? The left breast there is a 0.9 x 0.9 x 0.8 cm cyst at the 7 oclock position of the breast at 6 cm from the nipple.? This is essentially unchanged.? There is also evidence of a 2.3 x 0.8 x 1.9 cm nodule of mixed echogenicity at the 12 oclock position of the breast 1 cm from the nipple.? This most likely consistent with surgical scar.? There has been no change. Patient was informed of the risks and complications of the procedure including alternatives to surgery. These were discussed with the patient personally. Patient voices understanding and wishes to proceed. Some of the risks and complications were included in a form from the [employer]. Potential risks and complications included but not inclusive of bleeding, infection, seroma, hematoma, bruising, swelling, prolonged need for drains, loss of sensation to skin, partial or complete loss of skin flap and/or nipple, wound breakdown, need for wound care, poor scarring, poor aesthetic outcome, intra operative cardiac or neurologic events, DVT, PE, and reaction to anesthesia. I used Zeinab absorbable hemostat, (I used 2 vials, one in each breast). Reference Number - [id number]. Lot Number - [id number]. Expiration - February 12, 2027, (Right Breast). Reference Number - [id number]. Lot Number - [id number]. Expiration - May 15, 2027, (Left Breast). Surgeon: Alexsander Eckert MD turbine subassembler: Aisha De Leon RNFA Type of Anesthesia: General Anesthesiologist: Franklin Michael MD and Dana Flores CRNA Specimen's removed: 1. Painful right breast mass lateral to the nipple and inferiorly near the inframammary fold to Pathology. 2. Painful right breast mass lateral to the nipple to Pathology. 3. Painful left breast mass at superior aspect nipple to Pathology. 4. Painful left breast mass medial to the nipple and inferiorly near the inframammary fold to Pathology. 5. Right breast masses to Microbiology. 6. Left breast masses to Microbiology. Drains: True x2 (one in each breast). Estimated Blood Loss (mL): 50. Description of Procedure: Patient was taken to OR in supine position and was placed under general anesthesia.? The bilateral breasts were prepped and draped in the usual fashion.? I also draped with Ioban. SCD's were placed for DVT prophylaxis.? Perioperative antibiotics were given intravenously.? I first started on the right breast and then went to the left breast. Using xylocaine with epinephrine, the vertical scar was infiltrated.? After waiting 5 minutes for the anesthetic to take effect, I made an incision through the vertical scar of the right breast and dissected down to the breast tissue. Both masses were palpable and firm and encapsulated with scar tissue. They were mobile and not adherent to the chest wall or the breast skin. Both masses were lateral to the nipple, and the larger mass was also inferior near the inframammary fold. ? I carefully and sharply dissected the masses free from the surrounding soft tissue.? ? After excision of the masses, a small piece of tissue was sent to Microbiology for culture. ? A positive culture will necessitate antibiotic therapy.? The rest of the masses were sent to Pathology for analysis to rule out carcinoma.? After excision of the masses, the remaining breast tissue felt soft with no more residual fat necrosis present.? The wound was irrigated with Irrisept 0.05% Chlorhexidine and followed with saline irrigation. ? Hemostasis was obtained with electrocautery.? A size 15 True drain was placed through a separate stab incision laterally and secured to the skin with 3-0 Nylon purse string suture. I sprayed Zeinab absorbable hemostat into the wound to help minimize seroma formation.?I used one vial. At the time of closure,I extended the incision for a few mm around the inferior aspect of the nipple areolar complex to help improve the contour. A small triangle of excess skin was exci sed at the nipple areolar complex junction.?I then closed the vertical wound by approximating the deeper breast tissue with 3-0 Vicryl interrupted suture to also help minimize seroma formation.? The deep dermis and subcutaneous tissue was approximated with 3-0 Monocryl interrupted sutures.? The skin was approximated with 4-0 Prolene simple interrupted sutures.? I then went to the left breast. I made an incision through the vertical scar of the left breast and extended it onto the nipple laterally. I dissected down to the breast tissue. Both masses were palpable and firm and encapsulated with scar tissue. They were less mobile than the ones removed from the right breast. They were not adherent to the chest wall or the breast skin. The larger mass was on the superior aspect of the nipple and the smaller mass was medial to the nipple and inferior near the inframammary fold. ? I carefully and sharply dissected the masses free from the surrounding soft tissue.? ? The larger mass on the superior aspect of the nipple was dissected close to the skin but not adherent to it. For the smaller mass medial to the nipple and inferior near the inframammary fold, I extended the incision on the medial aspect of the horizontal scar. After excision of the masses, a small piece of tissue was sent to Microbiology for culture. ? A positive culture will necessitate antibiotic therapy.? The rest of the masses were sent to Pathology for analysis to rule out carcinoma.? After excision of the masses, the remaining breast tissue felt soft with no more residual fat necrosis present.? The wound was irrigated with Irrisept 0.05% Chlorhexidine and followed with saline irrigation. ? Hemostasis was obtained with electrocautery.? A size 15 True drain was placed through a separate stab incision laterally and secured to the skin with 3-0 Nylon purse string suture. I sprayed Zeinab absorbable hemostat into the wound to help minimize seroma formation.?I used one vial. ?I then closed the medial horizontal and vertical wounds by approximating the deeper breast tissue with 3-0 Vicryl interrupted suture to also help minimize seroma formation.? The deep dermis and subcutaneous tissue was approximated with 3-0 Monocryl interrupted sutures.? The skin was approximated with 4-0 Prolene simple interrupted sutures.? Antibiotic ointment was applied to both breast incisions followed by Kerlix gauze and ABD pads. This was then followed with an luisa wrap for compression. Patient tolerated the procedure well and was sent to PACU in satisfactory condition.? Patient will be sent home on antibiotics and pain medication.? She will keep her head elevated during the initial postoperative period. Patient will followup in a week for a wound check and for discussion of the Pathology report and the Microbiology report.? A positive culture will necessitate antibiotic therapy.? The sutures will be removed in two weeks. She will wear the luisa wrap for compression for 6 weeks. Grafts/Implants Used: Zeinab x2 Procedure Start Time: 13:22 Procedure Stop Time: 15:47 Complications None. Admit VTE Documentation VTE Present on Admission: No VTE Mechan Device Prophylaxis: SCD's VTE Pharm Prophylaxis ordered?: No Addendum Addendum: Surgery Charges CPT - 73655 ICD-10 - N63.10, N64.4, N64.1, Z98.890, A49.8, Z87.891 91234 N63.20, N64.4, N64.1, Z98.890, A49.8, Z87.891
[2022-10-06] MEDS: Lactated Ringers 1,000 ML 60 ML IV (15:51)
--- NOTE | 2022-10-06 16:27 | DCINST_ITS ---
Discharge Instructions Diet Discharge Diet: No restrictions and - (encourage nutritional supplementation with protein to help the healing process.) Activity Discharge Activity: May Not Drive, May Not Shower (until the drains are removed.) and - (keep head elevated. No heavy lifting.) May shower in (days): 5 (after the drains are removed.) May resume sexual activity in: 10-14 days Weight Bearing Status: Weight bearing as tolerated Lifting Restrictions: 20 lbs. Keep extremity elevated above heart level: - (elevate head.) Dressing / Incision Call your doctor if your incision/area has: Continuous Slow Oozing, Sudden Increased Bleeding, Increased Pain/ Swelling, Increased Redness, Foul Smelling Discharge and Swelling at the incision site Call your doctor if you observe: Fever of 101 or Higher, Coldness, Increased Pain, Shortness of breath, Chest pain, Calf discomfort and Uncontrolled pain Change Dressing in: do not change dressing (will change the operative dressing in the office.) Cleanse incision/area with: Keep Dressing Clean & Dry (may get the incisions wet in the shower after the drains are removed.) Drain: Suction (True drain x2 to bulb suction. Empty and record output daily.) Follow Up Care Please Follow Up With: Alexsander Eckert MD When: Sunday10/10/22. call [phone] for appt. Test Results: Test results from this visit will be discussed in further detail at your follow- up appointment, if applicable. Discharge Plan Admission Primary Reason for Your Visit: excision bilateral breast masses after breast reduction Attending Provider: Alexsander Eckert Primary Care Provider: Milka Schneider Discharge Orders/Prescriptions Prescriptions: New doxycycline hyclate 100 mg tablet 100 mg PO BID Qty: 10 0RF oxycodone-acetaminophen [Percocet] 5-325 mg tablet 1 tab PO Q6H PRN (Reason: pain (scale score 7-10)) 7 Days Qty: 28 0RF Rx Instructions: 28 tabs (twenty-eight) ondansetron 4 mg tablet,disintegrating 4 mg PO Q6H PRN (Reason: nausea and vomiting) Qty: 20 0RF Continued losartan [Cozaar] 25 mg tablet 25 mg PO DAILY Prilosec 10 mg susp,delayed release for recon 10 mg PO BID levothyroxine 125 mcg tablet 75 mcg PO DAILY hydroxyzine pamoate [Vistaril] 25 mg Capsule 25 mg PO BID PRN (Reason: Anxiety) zolpidem [Ambien] 5 mg Tablet 5 mg PO QHS PRN (Reason: Sleep) escitalopram oxalate [Lexapro] 10 mg Tablet 20 mg PO PRN PRN (Reason: Pain) magnesium citrate Solution 300 ml PO X1 PRN (Reason: constipation) Qty: 2 0RF gabapentin 250 mg/5 mL (5 mL) solution 100 mg PO BID 30 Days Qty: 120 0RF Other Ambulatory Orders: 12 Lead EKG (Routine) Timeframe: 20221003 Location: None Selected Ordered By: Dr. Franklin Michael Referrals / Follow Up: Milka Schneider MD [Primary Care Provider] - Alexsander Eckert MD [Med Staff - Active Staff] - 10/10/22 Disposition Disposition (needs filled in before D/C Order can be placed): Home, Self Care
== END 2022-10-06 18:28 | disposition home or self-care (01) ==
LOC: SDC 11:41 → AC 11:42
PROVIDERS: Anesthesiology; PCP Family Medicine; Referring Provider Surgery; Visit Provider Surgery
PROC: (CPT 19120; principal; 2022-10-06 13:30)
DX: N64.1 Fat necrosis of breast (principal); L90.5 Scar conditions and fibrosis of skin; N64.4 Mastodynia; I10 Essential (primary) hypertension; E03.9 Hypothyroidism, unspecified; N63.10 Unspecified lump in the right breast, unspecified quadrant; N63.20 Unspecified lump in the left breast, unspecified quadrant; Z79.890 Hormone replacement therapy; Z79.899 Other long term (current) drug therapy; Z87.891 Personal history of nicotine dependence; Z98.890 Other specified postprocedural states
CPT/HCPCS: 19120; 00400; 36415; 82962; 83735; 87070; 87075; 87102; 87176; 87205; 87206; 88305; 93005; J7120; J2405; J3475

== ENCOUNTER 2022-10-27 14:59 | Emergency (ER) | payer MEDICAID, SELFPAY ==
[2022-10-27 15:01] VITALS: BP 133/92; PULSE 101; RESP 16; TEMP 36.3; O2SAT 100; BMI 24.6
--- NOTE | 2022-10-27 15:06 | EX.ED.DYSGE1 ---
HPI History of Present Illness Chief Complaint: Dizziness [facility] Medical History Allergies Anginal equivalent Anxiety Anxiety Back problem Breast pain, left Carpal tunnel syndrome Chronic neck pain Chronic thoracic back pain Dietary restriction Difficulty swallowing Fat necrosis of breast Former smoker Generalized headaches GERD (gastroesophageal reflux disease) History of echocardiogram History of staph infection History of steroid therapy History of stress test History of ulceration Hormone deficiency Hypertension Hypothyroidism Intertrigo Macromastia Marijuana use Mass of left breast Mass of right breast Methicillin resistant Staphylococcus epidermidis infection Migraine headache Other acute postprocedural pain Shoulder pain Thyroid disease Vision problem Wears glasses Wears partial dentures Home Medications losartan 25 mg tablet (Cozaar) 25 mg PO DAILY 01/27/21 [History Last Taken 10/06/22 07:30] hydroxyzine pamoate 25 mg capsule (Vistaril) 25 mg PO BID PRN Anxiety 02/27/21 [History Last Taken 08/03/21] zolpidem 5 mg tablet (Ambien) 5 mg PO QHS PRN Sleep 07/21/21 [History Last Taken Unknown] escitalopram oxalate 10 mg tablet (Lexapro) 20 mg PO PRN PRN Pain 02/12/22 [History Last Taken Unknown] magnesium citrate 300 ml PO X1 PRN constipation #2 BOTTLES 03/02/22 [Rx Last Taken Unknown] levothyroxine 125 mcg tablet 75 mcg PO DAILY thyroid 06/23/22 [History Last Taken 10/06/22 07:30] omeprazole magnesium 10 mg oral suspension,delayed release (Prilosec) 10 mg PO BID 06/23/22 [History Last Taken 10/06/22 07:30] ondansetron 4 mg disintegrating tablet 4 mg PO Q6H PRN nausea and vomiting #20 tabs 10/06/22 [Rx Last Taken Unknown] oxycodone-acetaminophen 5 mg-325 mg tablet (Percocet) 1 tab PO BID PRN pain (scale score 7-10) 7 days #14 tabs 10/24/22 [Rx Last Taken Unknown] Allergy/AdvReac Type Severity Reaction Status Date / Time azithromycin Allergy Diarrhea Verified 10/17/22 14:40 [From Zithromax Z-Keo] sumatriptan [From Imitrex] Allergy TUNNEL Verified 10/17/22 14:40 VISION sumatriptan succinate Allergy TUNNEL Verified 10/17/22 14:40 [From Imitrex] VISION tramadol AdvReac nausea and Verified 10/17/22 14:40 vomiting Family History Other Anxiety Depression Epilepsy Hormone deficiency Hypertension Seizures Surgical History History of bilateral breast reduction surgery History of breast lump/mass excision History of carpal tunnel release History of esophagogastroduodenoscopy (EGD) S/P correction of deviated nasal septum S/P hysterectomy S/P laparoscopic cholecystectomy S/P left knee surgery S/P tubal ligation S/P wisdom tooth extraction Social History Smoking Status: Former smoker alcohol intake: never substance use type: does not use additional social history: Does Not Take Aspirin Does Not Take Ibuprofen EXAM Physical Exam Const Vital Signs: 10/27/22 15:01 10/27/22 15:00 10/27/22 15:28 Temperature 97.3 F L Temperature Source Temporal Pulse Rate 101 H 100 Respiratory Rate 16 19 H Respiratory Effort Normal Non-Labored Respiratory Pattern Normal Blood Pressure 133/92 H 135/95 H Blood Pressure Mean 105 108 Pulse Ox 100 98 Oxygen Delivery Method Room Air Room Air MDM MDM MDM Narrative Medical decision making narrative: HISTORY OF PRESENT ILLNESS: 52-year-old female here with shortness of breath, congestion and dizziness for 2 days. The patient further states she had 2 to 3 days of dizziness associated with sinus congestion runny nose. States she went to urgent care prior to arrival she was prescribed antibiotics. Although she complained of shortness of breath in triage she DENIES shortness of breath to me. She denies any chest pain. She denies dizziness being is associated with exertion. She notes dizziness is worse when she stands. She denies any volume loss such as vomiting or diarrhea. Denies any bleeding diathesis such as hemoptysis, hematochezia, melena, vaginal bleeding or hematuria. Patient denies any focal numbness, weakness, loss of sensation. Denies any recent head trauma The patient denies recent surgery in the last 4 weeks or immobilization in the last 3 days, denies previous diagnosis of DVT or PE, hemoptysis, unilateral leg swelling or malignancy with treatment the last 6 months. No estrogen use noted. REVIEW OF SYSTEMS: Pertinent positives: Shortness of breath, congestion, dizziness Pertinent negatives: Focal numbness, weakness, double vision PHYSICAL EXAM: Nursing triage notes reviewed, Vital signs reviewed Constitutional: please see [facility] HENT: MMM Eyes: Pupils equal round and reactive to light, Extraocular muscles intact Neck: No stridor, no JVD, full neck ROM Lungs: Clear to auscultation, No wheezing or rales. No increased work of breathing, no conversational dyspnea, no accessory muscle use, no nasal flaring. No respiratory distress noted Heart: Regular rate and rhythm, No murmurs, No rubs and No gallops, 2+ distal pulses (radial, femoral, posterior tibial) in all extremities Abdomen: Soft, there is no tenderness, rigidity, rebound or guarding, no obvious peritoneal signs, no palpable pulsatile abdominal masses, no auscultated abdominal bruit : No CVAT Extremities: No edema Neuro: Alert and oriented x3, neuro exam at baseline, cranial nerves II through XII are intact. No pain with extraocular muscle movement. There is negative test of skew. Normal speech. 5 of 5 strength in upper and lower extremities in flexion extension. Intact sensation to light touch in upper and lower extremity dermatomes. No truncal or extremity ataxia. No dysdiadochokinesia. Normal gait. 2+ reflexes. No meningeal signs. Negative Babinski. NIH of 0 Skin: No rash or lesions noted MEDICAL DECISION MAKING: Chief Complaint: Shortness of breath External records reviewed: The patient underwent cardiac stress test in 2019 that was normal. Last ED visit in August 2022. During this visit the patient complained of anxiety, shortness of breath and dizziness similar to her presentation today. Discharge after dose of Vistaril. [facility] Narrative: I considered the following differential diagnosis: Dehydration, electrolyte abnormalities thyroid dysfunction, arrhythmia, myocardial ischemia, anemia I considered posterior circulation CVA, intracranial bleed or mass however the patient had no focal neurologic deficits, NIHSS 0, no nystagmus, no ataxia either extremity, truncal or gait to suggest she is having posterior circulation stroke, bleed or mass. There was no report of head trauma to suggest ICH. I obtained a broad lab and imaging work-up to further elucidate the etiology of the patient's complaints, specifically to rule out the above mentioned differential diagnoses. Labs and images where remarkable for no evidence of significant anemia, electrolyte abnormalities, thyroid dysfunction, hepatobiliary pathology, myocardial ischemia or arrhythmia. No evidence of focal infection or anatomic abnormality of the chest. No clear life or limb threatening etiology could be identified to explain the patient's symptoms. I suspect the cause of her dizziness is secondary to her viral versus bacterial URI symptoms (for which she is prescribed antibiotics). Encouraged patient to take antibiotics as prescribed by urgent care. I gave the patient strict return precautions and follow-up instructions. Factors affecting care: Hypertension, hypothyroidism, GERD, anxiety Social determinants of health: Former smoker History obtained from others: none Shared decision making: I will have a discussion with the patient and or visitors regarding risk/benefits of further testing or admission. They will be made aware of of the risk/benefits inherent in this decision they will be given the opportunity to voice understanding. Consults: none Lab Data Attestation: I reviewed the patient's lab results. Lab results narrative: EKG with normal sinus rhythm, normal axis, normal intervals, no STEMI, no ischemic changes CBC without leukocytosis, severe anemia, no thrombocytopenia. BMP without evidence of significant electrolyte abnormalities, no anion gap, no acute kidney injury. LFTs show no evidence of hepatobiliary pathology. TSH within normal limits Troponin is negative, no evidence of myocardial ischemia Labs: Laboratory Results - last 24 hr 10/27/22 10/27/22 15:41 15:41 WBC 7.2 RBC 4.23 Hgb 12.9 Hct 39.8 MCV 94.1 MCH 30.5 MCHC 32.4 RDW Std Deviation 44.6 H RDW Coeff of [place] 13.2 Plt Count 247 MPV 9.7 Sodium 141 Potassium 3.6 Chloride 108 H Carbon Dioxide 25.0 Anion Gap 8 BUN 5 L Creatinine 0.92 Estim Creat Clear Calc 73.80 Est GFR (MDRD) Af Amer 83 Est GFR (MDRD) Non-Af 69 BUN/Creatinine Ratio 5.4 L Glucose 97 Calcium 9.8 Total Bilirubin 0.40 AST 45 H ALT 59 H Alkaline Phosphatase 104 Troponin I High Sens 16 Total Protein 8.1 Albumin 3.9 Globulin 4.2 Albumin/Globulin Ratio 0.9 TSH 0.73 Radiography Chest X-Ray - ED: Read by ED Physician Diagnostic Testing: Clinical Impression(s) from Imaging Studies Chest X-Ray 10/27/22 15:55 IMPRESSION: No radiographic evidence of acute cardiopulmonary disease. Electronically Signed: Jacob Alberts DO at 16:06 EDT , I have personally reviewed the patient's chest x-ray. Chest x-ray is unremarkable for pulmonary edema, pneumothorax, pneumonia or focal cardiopulmonary abnormality. Discharge Plan Triage Chief Complaint: Dizziness ED Provider: Earnest Coronado Dx/Rx/DC Orders Clinical Impression: Dizziness Instructions: ED Dizziness, Uncertain Cause Prescriptions: No Action losartan [Cozaar] 25 mg tablet 25 mg PO DAILY Prilosec 10 mg susp,delayed release for recon 10 mg PO BID levothyroxine 125 mcg tablet 75 mcg PO DAILY hydroxyzine pamoate [Vistaril] 25 mg Capsule 25 mg PO BID PRN (Reason: Anxiety) zolpidem [Ambien] 5 mg Tablet 5 mg PO QHS PRN (Reason: Sleep) escitalopram oxalate [Lexapro] 10 mg Tablet 20 mg PO PRN PRN (Reason: Pain) magnesium citrate Solution 300 ml PO X1 PRN (Reason: constipation) Qty: 2 0RF ondansetron 4 mg tablet,disintegrating 4 mg PO Q6H PRN (Reason: nausea and vomiting) Qty: 20 0RF oxycodone-acetaminophen [Percocet] 5-325 mg tablet 1 tab PO BID PRN (Reason: pain (scale score 7-10)) 7 Days Qty: 14 0RF Rx Instructions: 14 tabs (fourteen) Stand Alone Forms: ED Work / School Excuse Primary Care Provider: Milka Schneider Referrals: Milka Schneider MD [Primary Care Provider] - Activity Restrictions/Additional Instructions: Thank you for trusting us with your care today! Please take Tylenol (2 pills, 650 mg), ibuprofen (2 pills, 400 mg) every 6 hours as needed for pain and fever control. Please return to the emergency department if your symptoms change or worsen. Specifically if you develop gait instability, focal numbness, weakness, loss of sensation, facial drooping, slurred speech or difficulty talking. Please follow with your primary care physician for further outpatient evaluation and management. Disposition Disposition: Home, Self Care
--- NOTE | 2022-10-27 15:21 | EKG12_ITS ---
Test Reason : DIZZINESS Blood Pressure : / mmHG Vent. Rate : 091 BPM Atrial Rate : 091 BPM P-R Int : 208 ms QRS Dur : 098 ms QT Int : 348 ms P-R-T Axes : 053 057 055 degrees QTc Int : 428 ms Normal sinus rhythm Normal ECG Confirmed by LYNNE VALENZUELA, NURYS ([id number]), editorial assistant LILIANA FLAHERTY ([id number]) on 10/30/2022 11:34:05 AM Referred By: Confirmed By:NURYS BATISTA MD
[2022-10-27 15:28] VITALS: BP 135/95; PULSE 100; RESP 19; O2SAT 98
[2022-10-27] MEDS: 0.9% Normal Saline 1,000 ML 1000 ML IV (15:40)
[2022-10-27 15:53] LABS: Hematocrit 39.8 % (37-47); Hemoglobin 12.9 g/dL (12.0-15.0); Mean Corp Hgb Conc 32.4 g/dL (32-36); Mean Corpuscular Hgb 30.5 pg (27.0-32.0); Mean Corpuscular Volume 94.1 fL (81-99); Mean Platelet Vol. 9.7 fl (6.2-12.0); Platelet Count 247 K/mm3 (150-450); RBC Distribution Width CV 13.2 % (11.6-14.6); RBC Distribution Width SD 44.6 fl (35.1-43.9); Red Blood Count 4.23 M/mm3 (4.2-5.4); White Blood Count 7.2 K/mm3 (4.4-11.0)
--- NOTE | 2022-10-27 15:55 | RAD_ITS ---
INDICATION: Dizziness EXAMINATION/TECHNIQUE: X-RAY - XR Chest 2 Views COMPARISON: February 12, 2022 FINDINGS: LINES/DEVICES: None. LUNGS: No consolidation, edema or effusion. No pneumothorax. MEDIASTINUM AND CARDIOVASCULAR STRUCTURES: Cardiac silhouette not enlarged. Central airways and mediastinal contour are unremarkable. BONES AND SOFT TISSUES: Degenerative vertebral changes. RAD/Chest PA and Lateral IMPRESSION: No radiographic evidence of acute cardiopulmonary disease. Electronically Signed: Jacob Alberts DO at 16:06 EDT Reading Location ID and State: [facility] / [place] Tel [phone], Service support ,
[2022-10-27 16:14] LABS: ALB/GLOB Ratio 0.9 RATIO (0.9-2.4); AST(SGOT) 45 U/L (15-37); Alanine Aminotransfer ALT/SGPT 59 U/L (13-56); Albumin, Serum 3.9 g/dL (3.2-5.0); Alkaline Phosphatase 104 U/L (45-117); Anion Gap 8 (5-15); BUN 5 mg/dL (7-18); BUN/Creat Ratio 5.4 RATIO (10-20); Calcium,Total 9.8 mg/dL (8.5-10.1); Chloride 108 mmol/L (98-107); Creatinine, Serum 0.92 mg/dL (0.55-1.02); EST Glomerular Filtration Rate 69 mL/min (>60); Est Glom Filt Rate - Afr Amer 83 mL/min (>60); Globulin 4.2 g/dL (2.2-4.2); Glucose 97 mg/dL (74-106); Potassium 3.6 mmol/L (3.5-5.1); Protein, Total 8.1 g/dL (6.4-8.2); Sodium Level 141 mmol/L (136-145); Thyroid Stim Hormone (TSH) 0.73 uIU/mL (0.358-3.74); Troponin-I HS 16 pg/mL (3.0-54.0)
[2022-10-27 16:35] VITALS: PULSE 97; RESP 15; O2SAT 97
== END 2022-10-27 16:45 | disposition home or self-care (01) ==
PROVIDERS: Emergency Provider Emergency Medicine; PCP Family Medicine; Visit Provider Emergency Medicine
DX: R42 Dizziness and giddiness (principal); I10 Essential (primary) hypertension; E03.9 Hypothyroidism, unspecified; F41.9 Anxiety disorder, unspecified; K21.9 Gastro-esophageal reflux disease without esophagitis; Z79.890 Hormone replacement therapy; Z79.899 Other long term (current) drug therapy; Z87.891 Personal history of nicotine dependence
CPT/HCPCS: 71046; 80053; 84443; 84484; 85027; 93005; 96360; 99284; J7030; A4216

== ENCOUNTER 2022-12-11 02:38 | Emergency (ER) | payer MEDICAID, SELFPAY ==
[2022-12-11 02:38] VITALS: BP 196/98; PULSE 106; RESP 22; TEMP 36.4; O2SAT 100; BMI 23.6
--- NOTE | 2022-12-11 02:56 | EDS_ITS ---
HPI History of Present Illness Chief Complaint: Anxiety Informant: patient and spouse/S.O. Narrative Narrative: Patient is a 52-year-old female with past medical history of Saritha's thyroiditis hypertension and anxiety. She states that she took her normal medi cations today but this evening has not been able to control her anxiety symptoms and has had generalized tremors which concerns her even further and secondary to this presents for evaluation [facility] Medical History Allergies Anginal equivalent Anxiety Anxiety Back problem Breast pain, left Carpal tunnel syndrome Chronic neck pain Chronic thoracic back pain Dietary restriction Difficulty swallowing Fat necrosis of breast Former smoker Generalized headaches GERD (gastroesophageal reflux disease) History of echocardiogram History of staph infection History of steroid therapy History of stress test History of ulceration Hormone deficiency Hypertension Hypothyroidism Intertrigo Macromastia Marijuana use Mass of left breast Mass of right breast Methicillin resistant Staphylococcus epidermidis infection Migraine headache Other acute postprocedural pain Shoulder pain Thyroid disease Vision problem Wears glasses Wears partial dentures Home Medications losartan 25 mg tablet (Cozaar) 25 mg PO DAILY 01/27/21 [History Last Taken 10/06/22 07:30] zolpidem 5 mg tablet (Ambien) 5 mg PO QHS PRN Sleep 07/21/21 [History Last Taken Unknown] escitalopram oxalate 10 mg tablet (Lexapro) 20 mg PO DAILY 02/12/22 [History Last Taken Unknown] levothyroxine 125 mcg tablet 75 mcg PO DAILY thyroid 06/23/22 [History Last Taken 10/06/22 07:30] ondansetron 4 mg disintegrating tablet 4 mg PO Q6H PRN nausea and vomiting #20 tabs 11/03/22 [Rx Last Taken Unknown] buspirone 5 mg tablet 5 mg PO BID 12/11/22 [History Last Taken Unknown] famotidine 20 mg tablet 20 mg PO DAILY 12/11/22 [History Last Taken Unknown] linaclotide 290 mcg capsule (Linzess) 290 mcg PO DAILY PRN PRN CONSTIPATION 12/11/22 [History Last Taken Unknown] Allergy/AdvReac Type Severity Reaction Status Date / Time azithromycin Allergy Diarrhea Verified 11/06/22 13:57 [From Zithromax Z-Keo] sumatriptan [From Imitrex] Allergy TUNNEL Verified 11/06/22 13:57 VISION sumatriptan succinate Allergy TUNNEL Verified 11/06/22 13:57 [From Imitrex] VISION tramadol AdvReac nausea and Verified 11/06/22 13:57 vomiting Family History Other Anxiety Depression Epilepsy Hormone deficiency Hypertension Seizures Surgical History (Updated 11/08/22 @ 21:[address] Alexsander Eckert MD) History of bilateral breast reduction surgery History of breast lump/mass excision History of carpal tunnel release History of esophagogastroduodenoscopy (EGD) S/P correction of deviated nasal septum S/P hysterectomy S/P laparoscopic cholecystectomy S/P left knee surgery S/P tubal ligation S/P wisdom tooth extraction Social History Smoking Status: Former smoker alcohol intake: never substance use type: does not use additional social history: Does Not Take Aspirin Does Not Take Ibuprofen ROS ROS ED Constitutional Constitutional ED: Denies chills or fever(s) Eyes Eyes: Denies change in vision ENT ENT ED: Denies sore throat Cardiovascular Cardiovascular: Reports palpitations and racing heartbeat; Denies chest pain Respiratory/Chest Respiratory/Chest: Denies cough or dyspnea Gastrointestinal Gastrointestinal: Reports nausea; Denies abdominal pain, diarrhea or vomiting Genitourinary Genitourinary ED: Denies dysuria Musculoskeletal Musculoskeletal: Reports myalgias Integumentary Denies rash Neurologic Neurologic: Reports other Details: Positive tremors ; Denies headache(s) or paresthesias Psychiatric Psychiatric: Reports anxiety Hematologic/Lymphatic Hematologic/Lymphatic: Denies easy bleeding or easy bruising EXAM Physical Exam Const Vital Signs: 12/11/22 02:38 12/11/22 03:27 Temperature 97.6 F L Temperature Source Temporal Pulse Rate 106 H 82 Respiratory Rate 22 H 20 H Blood Pressure 196/98 H 144/82 H Blood Pressure Mean 130 102 Pulse Ox 100 95 Oxygen Delivery Method Room Air Room Air Positive well nourished and well developed General Appearance ED: well developed HEENT Reports moist mucous membranes Eyes PERRL and EOMs intact bilaterally General Eye ED: Negative for scleral icterus Neck supple Resp normal respiratory effort and clear to auscultation bilaterally Cardio regular rhythm Rate: tachycardic and other Other Details: Radial pulses are plus 2 out of 4 bilaterally are equal and symmetric GI normal to inspection, nondistended, normoactive bowel sounds, non-tender, non- distended and no masses GI Narrative: A reducible ventral hernias noted. No voluntary guarding or rigidity. No pulsatile mass or fluid wave Auscultation: normoactive bowel sounds Palpation: soft Extremity normal to inspection Neuro oriented x3 and CN's II-XII intact bilaterally Neuro Narrative: Patient has generalized tremors to the arms and legs but with focused motion of each extremity the tremors reduce or stop completely Sensorium / Orientation: alert Psych Psych Narrative: Patient has a nervous/anxious affect. No homicidal or suicidal ideation Skin no rashes or lesions noted MDM MDM Lab Data Labs: Laboratory Results - last 24 hr 12/11/22 12/11/22 03:02 03:02 WBC 8.9 RBC 4.48 Hgb 13.4 Hct 41.1 MCV 91.7 MCH 29.9 MCHC 32.6 RDW Std Deviation 45.6 H RDW Coeff of [place] 13.5 Plt Count 273 MPV 10.0 Immature Gran % (Auto) 0.300 Neut % (Auto) 64.7 Lymph % (Auto) 26.7 [place] % (Auto) 7.1 Eos % (Auto) 0.8 Baso % (Auto) 0.4 Absolute Neuts (auto) 5.8 Absolute Lymphs (auto) 2.38 Nucleated RBC % 0 Sodium 142 Potassium 3.5 Chloride 110 H Carbon Dioxide 23.0 Anion Gap 9 BUN 11 Creatinine 0.96 Estim Creat Clear Calc 70.72 Est GFR (MDRD) Af Amer 79 Est GFR (MDRD) Non-Af 65 BUN/Creatinine Ratio 11.4 Glucose 103 Calcium 9.7 Magnesium 2.1 TSH 7.34 H Discharge Plan Triage Chief Complaint: Anxiety ED Provider: Rodolfo Gonzales Dx/Rx/DC Orders Clinical Impression: Anxiety reaction, Elevated TSH Instructions: ED Anxiety Reaction Prescriptions: No Action losartan [Cozaar] 25 mg tablet 25 mg PO DAILY levothyroxine 125 mcg tablet 75 mcg PO DAILY zolpidem [Ambien] 5 mg Tablet 5 mg PO QHS PRN (Reason: Sleep) escitalopram oxalate [Lexapro] 10 mg Tablet 20 mg PO DAILY buspirone 5 mg tablet 5 mg PO BID Label Comments: take 1 tablet by mouth twice a day for anxiety famotidine 20 mg tablet 20 mg PO DAILY Linzess 290 mcg capsule 290 mcg PO DAILY PRN PRN (Reason: CONSTIPATION) ondansetron 4 mg tablet,disintegrating 4 mg PO Q6H PRN (Reason: nausea and vomiting) Qty: 20 0RF Primary Care Provider: Milka Schneider Referrals: Milka Schneider MD [Primary Care Provider] - Activity Restrictions/Additional Instructions: Your TSH was elevated at 7.3 therefore follow-up with your family doctor to discuss medication adjustment. Otherwise your work-up revealed no clinically significant findings and continue your other medications as previously directed Disposition Disposition: Home, Self Care
[2022-12-11] MEDS: LORazepam 2 MG/ML Syringe 1 MG IV (03:07)
[2022-12-11 03:12] LABS: Absolute Lymphocyte Count 2.38 X10^3/uL (0.83-4.51); Absolute Neutrophil Count 5.8 X10^3/uL (2.0-7.7); Basophil# 0.04 X10^3/uL; Basophil% 0.4 % (0-1); Eosinophil# 0.07 X10^3/uL; Eosinophils% 0.8 % (0-5); Hematocrit 41.1 % (37-47); Hemoglobin 13.4 g/dL (12.0-15.0); Lymphocyte # 2.38 X10^3/ul (0.83-4.51); Lymphocyte % 26.7 % (19-41); Mean Corp Hgb Conc 32.6 g/dL (32-36); Mean Corpuscular Hgb 29.9 pg (27.0-32.0); Mean Corpuscular Volume 91.7 fL (81-99); Monocyte# 0.63 X10^3/uL; Monocyte% 7.1 % (0-10); NRBC Flagged by Analyzer 0 % (0-5); Neutrophil # 5.78 X10^3/uL (2.7-7.7); Neutrophil % 64.7 % (47-70); Platelet Count 273 K/mm3 (150-450); RBC Distribution Width CV 13.5 % (11.6-14.6); RBC Distribution Width SD 45.6 fl (35.1-43.9); Red Blood Count 4.48 M/mm3 (4.2-5.4); White Blood Count 8.9 K/mm3 (4.4-11.0)
[2022-12-11 03:27] VITALS: BP 144/82; PULSE 82; RESP 20; O2SAT 95
[2022-12-11 03:39] LABS: Anion Gap 9 (5-15); BUN 11 mg/dL (7-18); BUN/Creat Ratio 11.4 RATIO (10-20); Calcium,Total 9.7 mg/dL (8.5-10.1); Chloride 110 mmol/L (98-107); Creatinine, Serum 0.96 mg/dL (0.55-1.02); EST Glomerular Filtration Rate 65 mL/min (>60); Est Glom Filt Rate - Afr Amer 79 mL/min (>60); Estimated Creatinine Clearance 70.72 ml/min; Glucose 103 mg/dL (74-106); Magnesium 2.1 mg/dL (1.6-2.6); Potassium 3.5 mmol/L (3.5-5.1); Sodium Level 142 mmol/L (136-145); Thyroid Stim Hormone (TSH) 7.34 uIU/mL (0.358-3.74)
[2022-12-11 04:04] VITALS: BP 125/75
== END 2022-12-11 04:04 | disposition home or self-care (01) ==
PROVIDERS: Emergency Provider Emergency Medicine; PCP Family Medicine; Visit Provider Emergency Medicine
DX: F41.1 Generalized anxiety disorder (principal); R94.6 Abnormal results of thyroid function studies; I10 Essential (primary) hypertension; Z87.891 Personal history of nicotine dependence; Z79.899 Other long term (current) drug therapy
CPT/HCPCS: 80048; 83735; 84443; 85025; 96374; 99282; A4216

== ENCOUNTER 2022-12-17 20:27 | Emergency (ER) | payer MEDICAID, SELFPAY ==
[2022-12-17 20:29] VITALS: BP 145/101; PULSE 97; RESP 15; TEMP 36; O2SAT 100; BMI 25.9
[2022-12-17] MEDS: LORazepam 1 MG Tablet PO (21:18)
[2022-12-17 21:56] LABS: Anion Gap 3 (5-15); BUN 9 mg/dL (7-18); BUN/Creat Ratio 9.3 RATIO (10-20); Calcium,Total 9.6 mg/dL (8.5-10.1); Chloride 106 mmol/L (98-107); Creatinine, Serum 0.97 mg/dL (0.55-1.02); EST Glomerular Filtration Rate 64 mL/min (>60); Est Glom Filt Rate - Afr Amer 78 mL/min (>60); Estimated Creatinine Clearance 62.44 ml/min; Glucose 92 mg/dL (74-106); Potassium 3.5 mmol/L (3.5-5.1); Sodium Level 138 mmol/L (136-145); Thyroid Stim Hormone (TSH) 3.27 uIU/mL (0.358-3.74)
--- NOTE | 2022-12-17 21:56 | EX.ED.DYSGE1 ---
HPI History of Present Illness Chief Complaint: General Illness Detail of Chief Complaint: Tremors question whether her thyroid medication is too high. Informant: patient and spouse/S.O. (According to significant other this has been an issue for 2 years.) Onset/Context/Timing Onset: Month(s) Context: Sudden Onset Timing: Intermittent and Waxes and wanes Quality: Anxiety, tremors, weight loss. Location: Not applicable Current Severity: Moderate Maximum Severity: Moderate Worsened by: Nothing Relieved by: Nothing Associated Symptoms Associated Symptoms: Tremors and feeling anxious Narrative Narrative: Patient is a 52-year-old woman with history of hypothyroidism who has had her medication changed because of significant fluxes in her TSH level. Presently she denies heat or cold intolerance. She does report palpitations. She does not report fast heart rate. She denies headache. She denies blurred vision, double vision or change in vision. She denies rhinorrhea, congestion, postnasal drainage or sore throat. She denies cough or shortness of breath. She does report mild chest discomfort. She does report nausea without vomiting or diarrhea. She denies urinary symptoms. She denies paresthesia, anesthesia or motor weakness. She denies problems with balance or coordination. She denies any other symptoms. She does have a therapist and psychiatrist she sees. Review of prior records indicates she has history of generalized headaches. Review of outside records indicates that patient's TSH has varied significantly. Prior similar symptoms: Yes (December 11, 2022) Recent Illness/Hospitalization: No PFSH PFSH Medical History Allergies Anginal equivalent Anxiety Anxiety Back problem Breast pain, left Carpal tunnel syndrome Chronic neck pain Chronic thoracic back pain Dietary restriction Difficulty swallowing Fat necrosis of breast Former smoker Generalized headaches GERD (gastroesophageal reflux disease) History of echocardiogram History of staph infection History of steroid therapy History of stress test History of ulceration Hormone deficiency Hypertension Hypothyroidism Intertrigo Macromastia Marijuana use Mass of left breast Mass of right breast Methicillin resistant Staphylococcus epidermidis infection Migraine headache Other acute postprocedural pain Shoulder pain Thyroid disease Vision problem Wears glasses Wears partial dentures Home Medications losartan 25 mg tablet (Cozaar) 25 mg PO DAILY 01/27/21 [History Last Taken 10/06/22 07:30] zolpidem 5 mg tablet (Ambien) 5 mg PO QHS PRN Sleep 07/21/21 [History Last Taken Unknown] escitalopram oxalate 10 mg tablet (Lexapro) 20 mg PO DAILY 02/12/22 [History Last Taken Unknown] levothyroxine 125 mcg tablet 75 mcg PO DAILY thyroid 06/23/22 [History Last Taken 10/06/22 07:30] ondansetron 4 mg disintegrating tablet 4 mg PO Q6H PRN nausea and vomiting #20 tabs 11/03/22 [Rx Last Taken Unknown] buspirone 5 mg tablet 5 mg PO BID 12/11/22 [History Last Taken Unknown] famotidine 20 mg tablet 20 mg PO DAILY 12/11/22 [History Last Taken Unknown] linaclotide 290 mcg capsule (Linzess) 290 mcg PO DAILY PRN PRN CONSTIPATION 12/11/22 [History Last Taken Unknown] lorazepam 0.5 mg tablet (Ativan) 0.5 mg PO TID PRN anxiety 7 days #20 tabs 12/17/22 [Rx Last Taken Unknown] Allergy/AdvReac Type Severity Reaction Status Date / Time azithromycin Allergy Diarrhea Verified 11/06/22 13:57 [From Zithromax Z-Keo] sumatriptan [From Imitrex] Allergy TUNNEL Verified 11/06/22 13:57 VISION sumatriptan succinate Allergy TUNNEL Verified 11/06/22 13:57 [From Imitrex] VISION tramadol AdvReac nausea and Verified 11/06/22 13:57 vomiting Family History Other Anxiety Depression Epilepsy Hormone deficiency Hypertension Seizures Surgical History History of bilateral breast reduction surgery History of breast lump/mass excision History of carpal tunnel release History of esophagogastroduodenoscopy (EGD) S/P correction of deviated nasal septum S/P hysterectomy S/P laparoscopic cholecystectomy S/P left knee surgery S/P tubal ligation S/P wisdom tooth extraction Social History (Updated 12/17/22 @ 22:[address] Dipak Kirkpatrick MD) household members: significant other Smoking Status: Former smoker alcohol intake: never substance use type: does not use additional social history: Does Not Take Aspirin Does Not Take Ibuprofen ROS ROS ED Constitutional Constitutional ED: Reports weight loss; Denies chills, fever(s) or subjective Eyes Eyes: Denies blurry vision, change in vision or diplopia ENT ENT ED: Denies ear pain, rhinorrhea or sore throat Cardiovascular Cardiovascular: Reports chest pain and palpitations; Denies orthopnea or paroxysmal nocturnal dyspnea Respiratory/Chest Respiratory/Chest: Denies cough, dyspnea, dyspnea on exertion, orthopnea or paroxysmal nocturnal dyspnea Gastrointestinal Gastrointestinal: Denies abdominal pain, constipation, diarrhea, melena, nausea or vomiting Genitourinary Genitourinary ED: Denies dysuria, hematuria or urinary frequency Musculoskeletal Musculoskeletal: Denies arthralgias, back pain, myalgias or neck pain Integumentary Denies Abrasions or rash Neurologic Neurologic: Denies headache(s), paresthesias or weakness Psychiatric Psychiatric: Reports anxiety and depression; Denies suicidal ideation Endocrine Endocrinology: Denies cold intolerance or heat intolerance Hematologic/Lymphatic Hematologic/Lymphatic: Reports systems reviewed and no addt'l complaints, except as documented EXAM Physical Exam Const Vital Signs: 12/17/22 20:29 Temperature 96.8 F L Temperature Source Temporal Pulse Rate 97 Respiratory Rate 15 Blood Pressure 145/101 H Blood Pressure Mean 115 Pulse Ox 100 Oxygen Delivery Method Room Air Positive well nourished and well developed Constitutional Narrative: Patient with tremors. She seems slightly anxious. General Appearance ED: well developed; Negative for cyanotic, diaphoretic or pallor HEENT Reports moist mucous membranes HEENT Narrative: Head is atraumatic normocephalic. Ears normal. Mucosa moist. Eyes PERRL and EOMs intact bilaterally General Eye ED: Negative for pale conjunctiva or scleral icterus Neck no lymphadenopathy, supple and no JVD Chest Wall inspection of chest normal Resp normal respiratory effort and clear to auscultation bilaterally Cardio regular rate, regular rhythm, S1 normal heart sound, S2 normal heart sound and no murmurs GI normal to inspection, nondistended, normoactive bowel sounds, non-tender, non-distended and no masses; Negative for hepatosplenomegaly Back/Spine no CVA tenderness Extremity normal to inspection General Extremety ED: Negative for edema or tenderness General Extremity: Negative for edema Neuro oriented x3, CN's II-XII intact bilaterally and no sensory deficits noted Sensorium / Orientation: alert Psych Mood & Affect: anxious Skin no rashes or lesions noted, no wounds and skin turgor normal General Skin Exam: elasticity normal; Negative for jaundice or pallor MDM MDM MDM Narrative Medical decision making narrative: Suspect patient has an anxiety reaction/anxiety attack. Doubt this to be due to her thyroid medication. Will obtain TSH. BMP was obtained to assess electrolytes since she has unusual vague symptoms. She did receive Ativan in the emergency department. Of note her blood pressure is elevated. She does have a history of hypertension. History & Record Review Additional record(s) reviewed:: Prior outpatient record, Prior ED visit and Prior labs Lab Data Attestation: I reviewed the patient's lab results. Lab results narrative: Basic metabolic panel is unremarkable. TSH is normal. Labs: Laboratory Results - last 24 hr 12/17/22 21:23 Sodium 138 Potassium 3.5 Chloride 106 Carbon Dioxide 29.0 Anion Gap 3 L BUN 9 Creatinine 0.97 Estim Creat Clear Calc 62.44 Est GFR (MDRD) Af Amer 78 Est GFR (MDRD) Non-Af 64 BUN/Creatinine Ratio 9.3 L Glucose 92 Calcium 9.6 TSH 3.27 Treatment and Re-Evaluation :: Patient was reassessed at 2210. She was informed of her lab results. She requested a referral to an snuff grinder and screener. She was informed that her symptoms are most likely due to anxiety. She was prescribed Ativan. Discharge Plan Triage Chief Complaint: General Illness ED Provider: Dipak Kirkpatrick Dx/Rx/DC Orders Clinical Impression: Coarse tremors, Anxiety reaction, History of hypothyroidism Instructions: ED Anxiety Reaction Prescriptions: New lorazepam [Ativan] 0.5 mg tablet 0.5 mg PO TID PRN (Reason: anxiety) 7 Days Qty: 20 0RF No Action losartan [Cozaar] 25 mg tablet 25 mg PO DAILY levothyroxine 125 mcg tablet 75 mcg PO DAILY zolpidem [Ambien] 5 mg Tablet 5 mg PO QHS PRN (Reason: Sleep) escitalopram oxalate [Lexapro] 10 mg Tablet 20 mg PO DAILY buspirone 5 mg tablet 5 mg PO BID Patient Comments: take 1 tablet by mouth twice a day for anxiety famotidine 20 mg tablet 20 mg PO DAILY Linzess 290 mcg capsule 290 mcg PO DAILY PRN PRN (Reason: CONSTIPATION) ondansetron 4 mg tablet,disintegrating 4 mg PO Q6H PRN (Reason: nausea and vomiting) Qty: 20 0RF Primary Care Provider: Milka Schneider Referrals: Milka Schneider MD [Primary Care Provider] - Disposition Disposition: Home, Self Care
== END 2022-12-17 22:20 | disposition home or self-care (01) ==
PROVIDERS: Emergency Provider Emergency Medicine; PCP Family Medicine; Visit Provider Emergency Medicine
DX: F41.1 Generalized anxiety disorder (principal); R25.1 Tremor, unspecified; Z87.891 Personal history of nicotine dependence; I10 Essential (primary) hypertension; E03.9 Hypothyroidism, unspecified; Z79.890 Hormone replacement therapy; Z79.899 Other long term (current) drug therapy
CPT/HCPCS: 80048; 84443; 99282

== ENCOUNTER 2023-01-03 02:13 | Emergency (ER) | payer MEDICAID, SELFPAY ==
[2023-01-03 02:16] VITALS: BP 189/100; PULSE 100; RESP 18; TEMP 35.9; O2SAT 99; BMI 23.3
--- NOTE | 2023-01-03 02:20 | EX.ED.DYSGE1 ---
HPI History of Present Illness Chief Complaint: Other, Pain/Inj Detail of Chief Complaint: Tremors Informant: patient Onset/Context/Timing Onset: Today Context: Sudden Onset Timing: Continuous Quality: Uncontrolled movement of upper and lower extremity Location: Upper and lower extremity Current Severity: States she cannot stop shaking unable to quantitate severity Worsened by: Nothing Relieved by: Nothing Associated Symptoms Associated Symptoms: None Narrative Narrative: SeenPatient is a 52-year-old woman by me earlier this month for tremors. I was informed at that time by her this is an issue this been going on for the past 2 years. At that time she also had her levothyroxine doses altered/adjusted. She denies heat intolerance. She denies sweats, weight loss, diarrhea or palpitations. Patient specifically stated without questioning this is not anxiety. She states she cannot stop moving her arms and legs she denies perioral numbness. She denies paresthesias in her upper or lower extremity. She state her drove her to the emergency department. She states he left because he had to get papers. And that he would be back because he knows she is here Patient stated she presented because her doctor is on vacation and she was not able to contact her. Prior similar symptoms: Yes Recent Illness/Hospitalization: Yes [facility] Medical History Allergies Anginal equivalent Anxiety Anxiety Back problem Breast pain, left Carpal tunnel syndrome Chronic neck pain Chronic thoracic back pain Dietary restriction Difficulty swallowing Fat necrosis of breast Former smoker Generalized headaches GERD (gastroesophageal reflux disease) History of echocardiogram History of staph infection History of steroid therapy History of stress test History of ulceration Hormone deficiency Hypertension Hypothyroidism Intertrigo Macromastia Marijuana use Mass of left breast Mass of right breast Methicillin resistant Staphylococcus epidermidis infection Migraine headache Other acute postprocedural pain Shoulder pain Thyroid disease Vision problem Wears glasses Wears partial dentures Home Medications losartan 25 mg tablet (Cozaar) 25 mg PO DAILY 01/27/21 [History Last Taken 10/06/22 07:30] zolpidem 5 mg tablet (Ambien) 5 mg PO QHS PRN Sleep 07/21/21 [History Last Taken Unknown] escitalopram oxalate 10 mg tablet (Lexapro) 20 mg PO DAILY 02/12/22 [History Last Taken Unknown] ondansetron 4 mg disintegrating tablet 4 mg PO Q6H PRN nausea and vomiting #20 tabs 11/03/22 [Rx Last Taken Unknown] buspirone 5 mg tablet 5 mg PO BID 12/11/22 [History Last Taken Unknown] famotidine 20 mg tablet 20 mg PO Q12H 12/11/22 [History Last Taken Unknown] linaclotide 290 mcg capsule (Linzess) 290 mcg PO DAILY PRN PRN CONSTIPATION 12/11/22 [History Last Taken Unknown] levothyroxine 75 mcg tablet 75 mcg PO QODAY 01/03/23 [History Last Taken Unknown] levothyroxine 88 mcg tablet 88 mcg PO QODAY 01/03/23 [History Last Taken Unknown] Allergy/AdvReac Type Severity Reaction Status Date / Time azithromycin Allergy Diarrhea Verified 01/03/23 02:15 [From Zithromax Z-Keo] sumatriptan [From Imitrex] Allergy TUNNEL Verified 01/03/23 02:15 VISION sumatriptan succinate Allergy TUNNEL Verified 01/03/23 02:15 [From Imitrex] VISION tramadol AdvReac nausea and Verified 01/03/23 02:15 vomiting Family History Other Anxiety Depression Epilepsy Hormone deficiency Hypertension Seizures Surgical History History of bilateral breast reduction surgery History of breast lump/mass excision History of carpal tunnel release History of esophagogastroduodenoscopy (EGD) S/P correction of deviated nasal septum S/P hysterectomy S/P laparoscopic cholecystectomy S/P left knee surgery S/P tubal ligation S/P wisdom tooth extraction Social History household members: significant other Smoking Status: Former smoker alcohol intake: never substance use type: does not use additional social history: Does Not Take Aspirin Does Not Take Ibuprofen ROS ROS ED Constitutional Constitutional ED: Denies chills, fever(s), subjective, sweats or weight loss Eyes Eyes: Denies blurry vision, change in vision or diplopia ENT ENT ED: Denies ear pain, rhinorrhea or sore throat Cardiovascular Cardiovascular: Denies chest pain, palpitations or racing heartbeat Respiratory/Chest Respiratory/Chest: Denies cough, dyspnea or dyspnea on exertion Gastrointestinal Gastrointestinal: Denies abdominal pain, diarrhea, nausea or vomiting Genitourinary Genitourinary ED: Denies dysuria, hematuria or urinary frequency Musculoskeletal Musculoskeletal: Denies arthralgias or myalgias Integumentary Denies rash Neurologic Neurologic: Denies headache(s), paresthesias or weakness Endocrine Endocrinology: Denies cold intolerance or heat intolerance Hematologic/Lymphatic Hematologic/Lymphatic: Reports systems reviewed and no addt'l complaints, except as documented EXAM Physical Exam Const Vital Signs: 01/03/23 02:16 01/03/23 02:16 Temperature 96.6 F L Temperature Source Temporal Pulse Rate 100 Respiratory Rate 18 Respiratory Pattern Normal Blood Pressure 189/100 H Blood Pressure Mean 129 Pulse Ox 99 Positive well nourished and well developed Constitutional Narrative: Patient has tremors noted upper and lower extremity. When she is asked to perform a task the tremor resolves. She had minimal to no eye contact during history and physical. General Appearance ED: well developed and NAD; Negative for cyanotic, diaphoretic or pallor HEENT Reports moist mucous membranes HEENT Narrative: Head is atraumatic normocephalic. Ears normal. Nares patent. No facial asymmetry. Eyes PERRL and EOMs intact bilaterally Eyes Narrative: There is no nystagmus. General Eye ED: Negative for pale conjunctiva or scleral icterus Neck no lymphadenopathy, supple and no JVD Chest Wall inspection of chest normal and palpation of chest normal Resp normal respiratory effort and clear to auscultation bilaterally Cardio regular rate, regular rhythm, S1 normal heart sound, S2 normal heart sound and no murmurs Back/Spine no CVA tenderness Extremity normal to inspection General Extremety ED: Negative for edema or tenderness General Extremity: Negative for edema Neuro oriented x3, CN's II-XII intact bilaterally and no sensory deficits noted Neuro Narrative: There is no dysmetria. Bicep, brachialis, triceps, patella and ankle reflex are 2+ and symmetric. There is no clonus or Babinski sign noted. Sensorium / Orientation: alert Sensory Exam: sensory level loss detected Psych Psych Narrative: Affect is flat. There was no eye contact essentially during the history and physical. Skin no rashes or lesions noted, no wounds and skin turgor normal General Skin Exam: Negative for jaundice or pallor MDM MDM MDM Narrative Medical decision making narrative: Patient with tremors. She has no symptoms of hyperthyroidism however since her dose was recently changed will obtain a TSH. BMP was obtained to assess for hyponatremia, hypokalemia or hypocalcium Pallavi. Since there was little to no eye contact during history and physical tremors stopped/ceased when she was asked to perform an activity i.e. assess for dysmetria. And when I assessed her reflexes in the upper and lower extremity. Suspect there is a psychological basis for this tremor. As noted in the HPI this has been an issue for approximately 2 years. Since it is my medical opinion this has an affective etiology patient will receive 0.5 mg of Ativan IV push. History & Record Review Additional record(s) reviewed:: Prior outpatient record, Prior ED visit and Prior labs Lab Data Labs: Laboratory Results - last 24 hr 01/03/23 02:32 Sodium 139 Potassium 3.8 Chloride 106 Carbon Dioxide 26.0 Anion Gap 7 BUN 13 Creatinine 0.97 Estim Creat Clear Calc 69.99 Est GFR (MDRD) Af Amer 78 Est GFR (MDRD) Non-Af 64 BUN/Creatinine Ratio 13.3 Glucose 98 Calcium 9.4 TSH 1.09 Treatment and Re-Evaluation :: Patient was reassessed at 0319. Her tremor has resolved. She was informed that her laboratory studies are normal. Plan is discharged home to follow-up with her PCP Discharge Plan Triage Chief Complaint: Other, Pain/Inj ED Provider: Dipak Kirkpatrick Dx/Rx/DC Orders Clinical Impression: Coarse tremors, History of hypothyroidism Instructions: Functional Movement Disorders Prescriptions: No Action losartan [Cozaar] 25 mg tablet 25 mg PO DAILY zolpidem [Ambien] 5 mg Tablet 5 mg PO QHS PRN (Reason: Sleep) escitalopram oxalate [Lexapro] 10 mg Tablet 20 mg PO DAILY buspirone 5 mg tablet 5 mg PO BID Patient Comments: take 1 tablet by mouth twice a day for anxiety famotidine 20 mg tablet 20 mg PO Q12H Linzess 290 mcg capsule 290 mcg PO DAILY PRN PRN (Reason: CONSTIPATION) levothyroxine 75 mcg tablet 75 mcg PO QODAY Patient Comments: take 1 tablet by mouth once daily levothyroxine 88 mcg tablet 88 mcg PO QODAY Patient Comments: take 1 tablet by mouth once daily ondansetron 4 mg tablet,disintegrating 4 mg PO Q6H PRN (Reason: nausea and vomiting) Qty: 20 0RF Primary Care Provider: Milka Schneider Referrals: Milka Schneider MD [Primary Care Provider] - 5-7 Days (Suspect patient's tremors are anxiety induced.) Disposition Disposition: Home, Self Care
[2023-01-03] MEDS: LORazepam 2 MG/ML Syringe 0.5 MG IV (02:33)
[2023-01-03 03:02] LABS: Anion Gap 7 (5-15); BUN 13 mg/dL (7-18); BUN/Creat Ratio 13.3 RATIO (10-20); Calcium,Total 9.4 mg/dL (8.5-10.1); Chloride 106 mmol/L (98-107); Creatinine, Serum 0.97 mg/dL (0.55-1.02); EST Glomerular Filtration Rate 64 mL/min (>60); Est Glom Filt Rate - Afr Amer 78 mL/min (>60); Estimated Creatinine Clearance 69.99 ml/min; Glucose 98 mg/dL (74-106); Potassium 3.8 mmol/L (3.5-5.1); Sodium Level 139 mmol/L (136-145); Thyroid Stim Hormone (TSH) 1.09 uIU/mL (0.358-3.74)
== END 2023-01-03 03:30 | disposition home or self-care (01) ==
PROVIDERS: Emergency Provider Emergency Medicine; PCP Family Medicine; Visit Provider Emergency Medicine
DX: R25.1 Tremor, unspecified (principal); E03.9 Hypothyroidism, unspecified; I10 Essential (primary) hypertension; Z79.890 Hormone replacement therapy; Z79.899 Other long term (current) drug therapy; Z87.891 Personal history of nicotine dependence
CPT/HCPCS: 80048; 84443; 96374; 99282; A4216

== ENCOUNTER 2023-01-13 01:15 | Emergency (ER) | payer MEDICAID, SELFPAY ==
[2023-01-13 01:16] VITALS: BP 163/89; PULSE 89; RESP 18; TEMP 36.7; O2SAT 100; BMI 21.4
--- NOTE | 2023-01-13 01:36 | EX.ED.VIS.PS ---
HPI HPI - Psych History of Present Illness Chief Complaint: Anxiety Informant: patient Narrative Narrative: Patient presents at around 1:30 AM saying she has been having anxiety all day and she does not know why and wants to know what is triggering it. Requesting Ativan for this which is what she has had on occasion for when she has anxiety attacks. She states she has been worse in the past, however her is going to work tonight, they have a trip to a cabin tomorrow that she wants to go to and feel better. She points to her head and states it is up here. States she is been feeling like her heart is racing off and on but not necessarily sudden onset of racing that seems to be causing the anxiety from the way she is describing at all. No dyspnea or chest discomfort or other symptoms. No focal neurologic symptoms or headache or loss of consciousness. No recent illness. States she has been feeling some degree of anxiety all week, since I saw Dr. Jose and he put me on buspirone. PFSH [facility] Medical History Allergies Anginal equivalent Anxiety Anxiety Back problem Breast pain, left Carpal tunnel syndrome Chronic neck pain Chronic thoracic back pain Dietary restriction Difficulty swallowing Fat necrosis of breast Former smoker Generalized headaches GERD (gastroesophageal reflux disease) History of echocardiogram History of staph infection History of steroid therapy History of stress test History of ulceration Hormone deficiency Hypertension Hypothyroidism Intertrigo Macromastia Marijuana use Mass of left breast Mass of right breast Methicillin resistant Staphylococcus epidermidis infection Migraine headache Other acute postprocedural pain Shoulder pain Thyroid disease Vision problem Wears glasses Wears partial dentures Home Medications losartan 25 mg tablet (Cozaar) 25 mg PO DAILY 01/27/21 [History Last Taken 10/06/22 07:30] zolpidem 5 mg tablet (Ambien) 5 mg PO QHS PRN Sleep 07/21/21 [History Last Taken Unknown] escitalopram oxalate 10 mg tablet (Lexapro) 20 mg PO DAILY 02/12/22 [History Last Taken Unknown] ondansetron 4 mg disintegrating tablet 4 mg PO Q6H PRN nausea and vomiting #20 tabs 11/03/22 [Rx Last Taken Unknown] buspirone 5 mg tablet 5 mg PO BID 12/11/22 [History Last Taken Unknown] famotidine 20 mg tablet 20 mg PO Q12H 12/11/22 [History Last Taken Unknown] linaclotide 290 mcg capsule (Linzess) 290 mcg PO DAILY PRN PRN CONSTIPATION 12/11/22 [History Last Taken Unknown] levothyroxine 75 mcg tablet 75 mcg PO QODAY 01/03/23 [History Last Taken Unknown] levothyroxine 88 mcg tablet 88 mcg PO QODAY 01/03/23 [History Last Taken Unknown] gabapentin 300 mg/6 mL (6 mL) oral solution 300 mg (6 mL) PO BID nerve pain 30 days #360 mL 01/09/23 [Rx Last Taken Unknown] Allergy/AdvReac Type Severity Reaction Status Date / Time azithromycin Allergy Diarrhea Verified 01/09/23 14:04 [From Zithromax Z-Keo] sumatriptan [From Imitrex] Allergy TUNNEL Verified 01/09/23 14:04 VISION sumatriptan succinate Allergy TUNNEL Verified 01/09/23 14:04 [From Imitrex] VISION tramadol AdvReac nausea and Verified 01/09/23 14:04 vomiting Family History Other Anxiety Depression Epilepsy Hormone deficiency Hypertension Seizures Surgical History History of bilateral breast reduction surgery History of breast lump/mass excision History of carpal tunnel release History of esophagogastroduodenoscopy (EGD) S/P correction of deviated nasal septum S/P hysterectomy S/P laparoscopic cholecystectomy S/P left knee surgery S/P tubal ligation S/P wisdom tooth extraction Social History household members: significant other Smoking Status: Former smoker alcohol intake: never substance use type: does not use additional social history: Does Not Take Aspirin Does Not Take Ibuprofen ROS ROS ED Constitutional Constitutional ED: Denies chills or fever(s) Eyes Eyes: Denies change in vision or diplopia ENT ENT ED: Denies rhinorrhea or sore throat Cardiovascular Cardiovascular: Reports palpitations and racing heartbeat; Denies chest pain Respiratory/Chest Respiratory/Chest: Denies cough or dyspnea Gastrointestinal Gastrointestinal: Denies abdominal pain, diarrhea, nausea or vomiting Genitourinary Genitourinary ED: Denies dysuria or hematuria Musculoskeletal Musculoskeletal: Denies back pain or neck pain Integumentary Denies abscess or rash Neurologic Neurologic: Denies headache(s), paresthesias or weakness Psychiatric Psychiatric: Reports anxiety; Denies suicidal thoughts EXAM Physical Exam Const Vital Signs: 01/13/23 01:16 Temperature 98.0 F Temperature Source Oral Pulse Rate 89 Respiratory Rate 18 Blood Pressure 163/89 H Blood Pressure Mean 113 Pulse Ox 100 Oxygen Delivery Method Room Air Positive well nourished and well developed General Appearance ED: well developed and NAD HEENT Reports moist mucous membranes normocephalic and atraumatic Eyes PERRL and EOMs intact bilaterally Neck full ROM, no lymphadenopathy and supple Resp normal respiratory effort and clear to auscultation bilaterally Cardio regular rate, regular rhythm and no murmurs Rate: Negative for tachycardic GI non-tender and non-distended Auscultation: normoactive bowel sounds Palpation: soft Back/Spine no CVA tenderness General Back: other FROM Extremity normal to inspection General Extremety ED: Negative for edema, pulses abnormal or tenderness General Extremity: Negative for edema or pulses abnormal Neuro oriented x3, CN's II-XII intact bilaterally and no sensory deficits noted Sensorium / Orientation: awake and alert Motor Exam: strength 5/5 throughout Psych mental status grossly normal, thought process normal, cooperative, affect normal, speech normal, activity/motor behavior normal, denies hallucinations, denies homicidal ideation and denies suicidal ideation Skin no rashes or lesions noted and no wounds MDM MDM MDM Narrative Medical decision making narrative: Rhythm strip shows normal sinus rhythm, she is having no ectopy and she is feeling the palpitations now that she has a heart rate around 80. Given a dose of Ativan and allowed to go home and rest, follow-up advised. I do not think that there is any problem with the care she received as an outpatient, I think she simply is very anxious. Rhythm Strip Rhythm Strip: Sinus Rhythm Rate: 80 Ectopy: None Discharge Plan Triage Chief Complaint: Anxiety ED Provider: Jesus Manuel Boland Dx/Rx/DC Orders Clinical Impression: Anxiety Instructions: ED Anxiety Reaction Prescriptions: No Action losartan [Cozaar] 25 mg tablet 25 mg PO DAILY gabapentin 300 mg/6 mL (6 mL) solution 300 mg PO BID 30 Days Qty: 360 1RF zolpidem [Ambien] 5 mg Tablet 5 mg PO QHS PRN (Reason: Sleep) escitalopram oxalate [Lexapro] 10 mg Tablet 20 mg PO DAILY buspirone 5 mg tablet 5 mg PO BID Patient Comments: take 1 tablet by mouth twice a day for anxiety famotidine 20 mg tablet 20 mg PO Q12H Linzess 290 mcg capsule 290 mcg PO DAILY PRN PRN (Reason: CONSTIPATION) levothyroxine 75 mcg tablet 75 mcg PO QODAY Patient Comments: take 1 tablet by mouth once daily levothyroxine 88 mcg tablet 88 mcg PO QODAY Patient Comments: take 1 tablet by mouth once daily ondansetron 4 mg tablet,disintegrating 4 mg PO Q6H PRN (Reason: nausea and vomiting) Qty: 20 0RF Primary Care Provider: Milka Schneider Referrals: Milka Schneider MD [Primary Care Provider] - 1-2 Weeks Disposition Disposition: Home, Self Care
[2023-01-13] MEDS: LORazepam 1 MG Tablet PO (01:44)
== END 2023-01-13 02:31 | disposition home or self-care (01) ==
PROVIDERS: Emergency Provider Emergency Medicine; PCP Family Medicine; Visit Provider Emergency Medicine
DX: F41.9 Anxiety disorder, unspecified (principal); I10 Essential (primary) hypertension; E03.9 Hypothyroidism, unspecified; Z79.890 Hormone replacement therapy; Z79.899 Other long term (current) drug therapy; Z87.891 Personal history of nicotine dependence
CPT/HCPCS: 99283

== ENCOUNTER 2023-02-03 15:45 | Emergency (ER) | payer MEDICAID, SELFPAY ==
[2023-02-03 15:46] VITALS: BP 165/104; PULSE 94; RESP 18; TEMP 36.3; O2SAT 100; BMI 22.9
--- NOTE | 2023-02-03 15:58 | EDS_ITS ---
HPI HPI - Psych History of Present Illness Chief Complaint: Anxiety Informant: patient Narrative Narrative: Patient states she has a history of significant anxiety, she is on maintenance medications for this which have recently been increased which have helped the tremors that she has had associated with this, but recently her daughter had a miscarriage and it is sending her anxiety out of control. She denies any suicidality, but it is giving her some of the tremors again. [facility] Medical History Allergies Anginal equivalent Anxiety Anxiety Back problem Breast pain, left Carpal tunnel syndrome Chronic neck pain Chronic thoracic back pain Dietary restriction Difficulty swallowing Fat necrosis of breast Former smoker Generalized headaches GERD (gastroesophageal reflux disease) History of echocardiogram History of staph infection History of steroid therapy History of stress test History of ulceration Hormone deficiency Hypertension Hypothyroidism Intertrigo Macromastia Marijuana use Mass of left breast Mass of right breast Methicillin resistant Staphylococcus epidermidis infection Migraine headache Other acute postprocedural pain Shoulder pain Thyroid disease Vision problem Wears glasses Wears partial dentures Home Medications losartan 25 mg tablet (Cozaar) 25 mg PO DAILY 01/27/21 [History Last Taken 10/06/22 07:30] zolpidem 5 mg tablet (Ambien) 5 mg PO QHS PRN Sleep 07/21/21 [History Last Taken Unknown] escitalopram oxalate 10 mg tablet (Lexapro) 20 mg PO DAILY 02/12/22 [History Last Taken Unknown] buspirone 5 mg tablet 5 mg PO BID 12/11/22 [History Last Taken Unknown] famotidine 20 mg tablet 20 mg PO Q12H 12/11/22 [History Last Taken Unknown] linaclotide 290 mcg capsule (Linzess) 290 mcg PO DAILY PRN PRN CONSTIPATION 12/11/22 [History Last Taken Unknown] levothyroxine 75 mcg tablet 75 mcg PO QODAY 01/03/23 [History Last Taken Unknown] levothyroxine 88 mcg tablet 88 mcg PO QODAY 01/03/23 [History Last Taken Unknown] gabapentin 300 mg/6 mL (6 mL) oral solution 300 mg (6 mL) PO BID nerve pain 30 days #360 mL 01/09/23 [Rx Last Taken Unknown] ondansetron 4 mg disintegrating tablet 4 mg PO Q6H PRN nausea and vomiting #20 tabs 01/19/23 [Rx Last Taken Unknown] lorazepam 1 mg tablet (Ativan) 1 mg PO TID PRN anxiety #10 tabs 02/03/23 [Rx Last Taken Unknown] Allergy/AdvReac Type Severity Reaction Status Date / Time azithromycin Allergy Diarrhea Verified 02/03/23 15:46 [From Zithromax Z-Keo] sumatriptan [From Imitrex] Allergy TUNNEL Verified 02/03/23 15:46 VISION sumatriptan succinate Allergy TUNNEL Verified 02/03/23 15:46 [From Imitrex] VISION tramadol AdvReac nausea and Verified 02/03/23 15:46 vomiting Family History Other Anxiety Depression Epilepsy Hormone deficiency Hypertension Seizures Surgical History History of bilateral breast reduction surgery History of breast lump/mass excision History of carpal tunnel release History of esophagogastroduodenoscopy (EGD) S/P correction of deviated nasal septum S/P hysterectomy S/P laparoscopic cholecystectomy S/P left knee surgery S/P tubal ligation S/P wisdom tooth extraction Social History household members: significant other Smoking Status: Former smoker alcohol intake: never substance use type: does not use additional social history: Does Not Take Aspirin Does Not Take Ibuprofen ROS ROS ED Constitutional Constitutional ED: Denies chills or fever(s) Eyes Eyes: Denies change in vision or diplopia ENT ENT ED: Denies rhinorrhea or sore throat Cardiovascular Cardiovascular: Denies chest pain or palpitations Respiratory/Chest Respiratory/Chest: Denies cough or dyspnea Gastrointestinal Gastrointestinal: Denies abdominal pain, diarrhea, nausea or vomiting Genitourinary Genitourinary ED: Denies dysuria or hematuria Musculoskeletal Musculoskeletal: Denies back pain or neck pain Integumentary Denies abscess or rash Neurologic Neurologic: Reports tremor(s); Denies headache(s), paresthesias, vertigo or weakness Psychiatric Psychiatric: Reports anxiety and depression; Denies homicidal ideation, suicidal ideation or suicidal thoughts EXAM Physical Exam Const Vital Signs: 02/03/23 15:46 Temperature 97.3 F L Temperature Source Temporal Pulse Rate 94 Respiratory Rate 18 Blood Pressure 165/104 H Blood Pressure Mean 124 Pulse Ox 100 Oxygen Delivery Method Room Air Positive well nourished and well developed General Appearance ED: well developed and NAD HEENT Reports moist mucous membranes normocephalic and atraumatic Eyes PERRL and EOMs intact bilaterally General Eye ED: Negative for scleral icterus Neck supple Resp normal respiratory effort Extremity normal to inspection General Extremety ED: Negative for edema General Extremity: Negative for edema Neuro oriented x3, CN's II-XII intact bilaterally, no sensory deficits noted and gait normal Sensorium / Orientation: alert Motor Exam: strength 5/5 throughout Psych mental status grossly normal, thought process normal, cooperative, activity/motor behavior normal, denies homicidal ideation and denies suicidal ideation Mood & Affect: depressed, anxious and tearful Thought Content: No suicidality Skin Lesions: no lesions Rashes: no rashes MDM MDM MDM Narrative Medical decision making narrative: I did review an [facility] report, she does get lorazepam from time to time especially the past couple months, she does not have 1 as current. I will give her prescription for a short amount of pills, she is scheduled to see counselor on Sunday, today is Sunday she is comfortable with that plan she has a ride home today and given an Ativan here. Discharge Plan Triage Chief Complaint: Anxiety ED Provider: Jesus Manuel Boland Dx/Rx/DC Orders Clinical Impression: Anxiety Instructions: Anxiety Disorders Medicine Prescriptions: New lorazepam [Ativan] 1 mg tablet 1 mg PO TID PRN (Reason: anxiety) Qty: 10 0RF No Action losartan [Cozaar] 25 mg tablet 25 mg PO DAILY gabapentin 300 mg/6 mL (6 mL) solution 300 mg PO BID 30 Days Qty: 360 1RF zolpidem [Ambien] 5 mg Tablet 5 mg PO QHS PRN (Reason: Sleep) escitalopram oxalate [Lexapro] 10 mg Tablet 20 mg PO DAILY buspirone 5 mg tablet 5 mg PO BID Patient Comments: take 1 tablet by mouth twice a day for anxiety famotidine 20 mg tablet 20 mg PO Q12H Linzess 290 mcg capsule 290 mcg PO DAILY PRN PRN (Reason: CONSTIPATION) levothyroxine 75 mcg tablet 75 mcg PO QODAY Patient Comments: take 1 tablet by mouth once daily levothyroxine 88 mcg tablet 88 mcg PO QODAY Patient Comments: take 1 tablet by mouth once daily ondansetron 4 mg tablet,disintegrating 4 mg PO Q6H PRN (Reason: nausea and vomiting) Qty: 20 0RF Primary Care Provider: Milka Schneider Referrals: Milka Schneider MD [Primary Care Provider] - Doctor,Your [Non-Staff] - [facility] appointment (Counselor/psychiatrist as scheduled) Disposition Disposition: Home, Self Care Discharge Date/Time: 02/03/23 16:13
[2023-02-03] MEDS: LORazepam 1 MG Tablet PO (16:09)
== END 2023-02-03 16:13 | disposition home or self-care (01) ==
LOC: ED 16:11
PROVIDERS: Emergency Provider Emergency Medicine; PCP Family Medicine; Visit Provider Emergency Medicine
DX: F41.9 Anxiety disorder, unspecified (principal); R25.1 Tremor, unspecified; Z79.899 Other long term (current) drug therapy; Z87.891 Personal history of nicotine dependence
CPT/HCPCS: 99283

== ENCOUNTER 2023-02-12 13:40 | Emergency (ER) | payer MEDICAID, SELFPAY ==
[2023-02-12 13:42] VITALS: BP 166/93; PULSE 84; RESP 22; TEMP 36.1; O2SAT 96; BMI 22.8
== END 2023-02-12 13:55 | disposition left against medical advice (07) ==
LOC: ED 13:56
PROVIDERS: PCP Family Medicine
DX: Z53.21 Procedure and treatment not carried out due to patient leaving prior to being seen by health care provider (principal)

== ENCOUNTER → 2023-02-12 | Outpatient (CLI) | payer MEDICAID, SELFPAY ==
[2023-02-12 18:39] LABS: T4 Free Direct 0.97 ng/dL (0.76-1.46); Thyroid Stim Hormone (TSH) 8.53 uIU/mL (0.358-3.74)
== END | disposition home or self-care (01) ==
LOC: BFHLAB 16:17
PROVIDERS: PCP Family Medicine; Referring Provider Family Medicine; Visit Provider Family Medicine
DX: E03.9 Hypothyroidism, unspecified (principal)
CPT/HCPCS: 36415; 84439; 84443

== ENCOUNTER 2023-03-21 10:04 | Emergency (ER) | payer MEDICAID, SELFPAY ==
[2023-03-21 10:05] VITALS: BP 136/92; PULSE 98; RESP 14; TEMP 36.3; O2SAT 100; BMI 24.3
--- NOTE | 2023-03-21 10:49 | EX.ED.DYSGE1 ---
HPI History of Present Illness Chief Complaint: Fatigue Narrative Narrative: 52-year-old female presenting with fatigue. She feels generally fatigued. No body aches, chills, fever, cough. Patient states that she has thyroid issues. She sees Dr. Schneider. She states she last saw her about a month ago. At that point she had her Synthroid changed to 80 mcg. Previously she was on 125 mcg. She states that a couple of months ago she had a drop to 50 by an ER doctor due to abnormal lab work. Patient states that last night her blood pressure was up and she was feeling more anxious. Today she feels like she is fatigued. She has not called her primary care physician for follow-up on her TSH levels. Her blood pressure is normalized today. [facility] Medical History Allergies Anginal equivalent Anxiety Anxiety Back problem Breast pain, left Carpal tunnel syndrome Chronic neck pain Chronic thoracic back pain Dietary restriction Difficulty swallowing Fat necrosis of breast Former smoker Generalized headaches GERD (gastroesophageal reflux disease) History of echocardiogram History of staph infection History of steroid therapy History of stress test History of ulceration Hormone deficiency Hypertension Hypothyroidism Intertrigo Macromastia Marijuana use Mass of left breast Mass of right breast Methicillin resistant Staphylococcus epidermidis infection Migraine headache Other acute postprocedural pain Shoulder pain Thyroid disease Vision problem Wears glasses Wears partial dentures Home Medications losartan 25 mg tablet (Cozaar) 25 mg PO DAILY 01/27/21 [History Last Taken 10/06/22 07:30] zolpidem 5 mg tablet (Ambien) 5 mg PO QHS PRN Sleep 07/21/21 [History Last Taken Unknown] escitalopram oxalate 10 mg tablet (Lexapro) 20 mg PO DAILY 02/12/22 [History Last Taken Unknown] famotidine 20 mg tablet 20 mg PO Q12H 12/11/22 [History Last Taken Unknown] linaclotide 290 mcg capsule (Linzess) 290 mcg PO DAILY PRN PRN CONSTIPATION 12/11/22 [History Last Taken Unknown] levothyroxine 88 mcg tablet 88 mcg PO QODAY 01/03/23 [History Last Taken Unknown] gabapentin 300 mg/6 mL (6 mL) oral solution 300 mg (6 mL) PO BID nerve pain 30 days #360 mL 01/09/23 [Rx Last Taken Unknown] ondansetron 4 mg disintegrating tablet 4 mg PO Q6H PRN nausea and vomiting #20 tabs 01/19/23 [Rx Last Taken Unknown] lorazepam 1 mg tablet (Ativan) 1 mg PO TID PRN anxiety #10 tabs 02/03/23 [Rx Last Taken Unknown] buspirone 5 mg tablet 15 mg PO BID 03/13/23 [History Last Taken Unknown] hydroxyzine pamoate 50 mg capsule (Vistaril) 50 mg PO QHS 03/13/23 [History Last Taken Unknown] Allergy/AdvReac Type Severity Reaction Status Date / Time azithromycin Allergy Diarrhea Verified 03/21/23 10:07 [From Zithromax Z-Keo] sumatriptan [From Imitrex] Allergy TUNNEL Verified 03/21/23 10:07 VISION sumatriptan succinate Allergy TUNNEL Verified 03/21/23 10:07 [From Imitrex] VISION tramadol AdvReac nausea and Verified 03/21/23 10:07 vomiting Family History Other Anxiety Depression Epilepsy Hormone deficiency Hypertension Seizures Surgical History History of bilateral breast reduction surgery History of breast lump/mass excision History of carpal tunnel release History of esophagogastroduodenoscopy (EGD) S/P correction of deviated nasal septum S/P hysterectomy S/P laparoscopic cholecystectomy S/P left knee surgery S/P tubal ligation S/P wisdom tooth extraction Social History household members: significant other Smoking Status: Former smoker alcohol intake: never substance use type: does not use additional social history: Does Not Take Aspirin Does Not Take Ibuprofen ROS ROS ED Constitutional Constitutional ED: Reports other Details: Fatigue ; Denies chills, fever(s) or sweats Eyes Eyes: Denies blurry vision or change in vision ENT ENT ED: Denies ear pain or sore throat Cardiovascular Cardiovascular: Denies chest pain, palpitations or racing heartbeat Respiratory/Chest Respiratory/Chest: Denies cough, dyspnea or sputum Gastrointestinal Gastrointestinal: Denies abdominal pain, constipation, diarrhea, nausea or vomiting Genitourinary Genitourinary ED: Denies dysuria, hematuria or urinary frequency Musculoskeletal Musculoskeletal: Denies arthralgias, myalgias or neck pain Integumentary Denies abscess, Abrasions or rash Neurologic Neurologic: Denies headache(s), paresthesias or weakness Psychiatric Psychiatric: Reports anxiety; Denies depression, suicidal ideation or suicidal thoughts Endocrine Endocrinology: Denies polydipsia or polyuria EXAM Physical Exam Const Vital Signs: 03/21/23 10:05 03/21/23 12:04 Temperature 97.3 F L Temperature Source Temporal Pulse Rate 98 89 Respiratory Rate 14 16 Blood Pressure 136/92 H Blood Pressure Mean 106 Pulse Ox 100 100 Oxygen Delivery Method Room Air Room Air Positive well nourished General Appearance ED: NAD; Negative for pallor HEENT Reports moist mucous membranes Eyes PERRL and EOMs intact bilaterally Chest Wall inspection of chest normal Resp normal respiratory effort and clear to auscultation bilaterally Auscultation: Negative for rales, rhonchi or wheezes Cardio regular rate and regular rhythm Back/Spine no CVA tenderness Neuro oriented x3 and CN's II-XII intact bilaterally Sensorium / Orientation: alert Psych mental status grossly normal Skin no rashes or lesions noted General Skin Exam: Negative for jaundice or pallor MDM MDM MDM Narrative Medical decision making narrative: Well-appearing 52-year-old female with normal vital signs. She is telling me that last night she felt more worked up and anxious and today she feels fatigued. She does not have any fever, chills, body aches. She had a headache which she was treated for yesterday at [facility] states headache is now resolved. Her blood pressure is normalized. She is concerned her thyroid levels are off. Differential includes low thyroid, high thyroid, dehydration, electrode abnormalities. CBC will be obtained to assess white blood cell count, hemoglobin. BMP to assess renal function electrolytes. TSH, T3, T4 will be obtained. CBC and CMP are unremarkable. TSH, T3, T4 all within normal limits. At this point I believe the patient likely anxiety. Although she initially stated she did not feel anxious she requested some anxiety medication while she was here. She ended up taking her home dose. I think this point she stable for discharge. I recommended follow-up with her PCP. Impression: 1. History of hypothyroidism 2. Anxiety Lab Data Labs: Laboratory Results - last 24 hr 03/21/23 03/21/23 10:55 12:12 WBC 8.3 RBC 4.24 Hgb 12.8 Hct 40.8 MCV 96.2 MCH 30.2 MCHC 31.4 L RDW Std Deviation 46.5 H RDW Coeff of Dylon 13.2 Plt Count 243 MPV 9.6 Immature Gran % (Auto) 0.200 Neut % (Auto) 63.7 Lymph % (Auto) 27.9 Haines % (Auto) 6.7 Eos % (Auto) 1.0 Baso % (Auto) 0.5 Absolute Neuts (auto) 5.3 Absolute Lymphs (auto) 2.32 Nucleated RBC % 0 Sodium 139 Potassium 3.7 Chloride 108 H Carbon Dioxide 24.0 Anion Gap 7 BUN 10 Creatinine 0.93 Estim Creat Clear Calc 73.00 Est GFR (MDRD) Af Amer 82 Est GFR (MDRD) Non-Af 67 BUN/Creatinine Ratio 10.7 Glucose 100 Calcium 9.3 Total Bilirubin 0.30 AST 33 ALT 29 Alkaline Phosphatase 74 Total Protein 7.3 Albumin 3.4 Globulin 3.9 Albumin/Globulin Ratio 0.9 TSH 1.61 Free T4 1.27 Free T3 pg/dL 2.2 Discharge Plan Triage Chief Complaint: Fatigue ED Provider: Orlando Salas Dx/Rx/DC Orders Clinical Impression: Anxiety Instructions: ED Anxiety Reaction, ED Weakness (Uncertain Cause) Prescriptions: No Action losartan [Cozaar] 25 mg tablet 25 mg PO DAILY gabapentin 300 mg/6 mL (6 mL) solution 300 mg PO BID 30 Days Qty: 360 1RF hydroxyzine pamoate [Vistaril] 50 mg capsule 50 mg PO QHS zolpidem [Ambien] 5 mg Tablet 5 mg PO QHS PRN (Reason: Sleep) escitalopram oxalate [Lexapro] 10 mg Tablet 20 mg PO DAILY famotidine 20 mg tablet 20 mg PO Q12H Linzess 290 mcg capsule 290 mcg PO DAILY PRN PRN (Reason: CONSTIPATION) buspirone 5 mg tablet 15 mg PO BID Patient Comments: take 1 tablet by mouth twice a day for anxiety levothyroxine 88 mcg tablet 88 mcg PO QODAY Patient Comments: take 1 tablet by mouth once daily lorazepam [Ativan] 1 mg tablet 1 mg PO TID PRN (Reason: anxiety) Qty: 10 0RF ondansetron 4 mg tablet,disintegrating 4 mg PO Q6H PRN (Reason: nausea and vomiting) Qty: 20 0RF Primary Care Provider: Milka Schneider Referrals: Milka Schneider MD [Primary Care Provider] - Disposition Disposition: Home, Self Care
[2023-03-21 11:28] LABS: ALB/GLOB Ratio 0.9 RATIO (0.9-2.4); AST(SGOT) 33 U/L (15-37); Alanine Aminotransfer ALT/SGPT 29 U/L (13-56); Albumin, Serum 3.4 g/dL (3.2-5.0); Alkaline Phosphatase 74 U/L (45-117); Anion Gap 7 (5-15); BUN 10 mg/dL (7-18); BUN/Creat Ratio 10.7 RATIO (10-20); Calcium,Total 9.3 mg/dL (8.5-10.1); Chloride 108 mmol/L (98-107); Creatinine, Serum 0.93 mg/dL (0.55-1.02); EST Glomerular Filtration Rate 67 mL/min (>60); Est Glom Filt Rate - Afr Amer 82 mL/min (>60); Free T3 2.2 pg/mL (2.18-3.98); Globulin 3.9 g/dL (2.2-4.2); Glucose 100 mg/dL (74-106); Potassium 3.7 mmol/L (3.5-5.1); Protein, Total 7.3 g/dL (6.4-8.2); Sodium Level 139 mmol/L (136-145); T4 Free Direct 1.27 ng/dL (0.76-1.46); Thyroid Stim Hormone (TSH) 1.61 uIU/mL (0.358-3.74)
[2023-03-21 12:04] VITALS: PULSE 89; RESP 16; O2SAT 100
--- NOTE | 2023-03-21 12:23 | ED.RN ---
PER DR. RIVAS, PATIENT CAN TAKE HER ATIVAN FROM HOME
[2023-03-21 12:28] LABS: Absolute Lymphocyte Count 2.32 X10^3/uL (0.83-4.51); Absolute Neutrophil Count 5.3 X10^3/uL (2.0-7.7); Basophil# 0.04 X10^3/uL; Basophil% 0.5 % (0-1); Eosinophil# 0.08 X10^3/uL; Hematocrit 40.8 % (37-47); Hemoglobin 12.8 g/dL (12.0-15.0); Lymphocyte # 2.32 X10^3/ul (0.83-4.51); Lymphocyte % 27.9 % (19-41); Mean Corp Hgb Conc 31.4 g/dL (32-36); Mean Corpuscular Hgb 30.2 pg (27.0-32.0); Mean Corpuscular Volume 96.2 fL (81-99); Mean Platelet Vol. 9.6 fl (6.2-12.0); Monocyte# 0.56 X10^3/uL; Monocyte% 6.7 % (0-10); NRBC Flagged by Analyzer 0 % (0-5); Neutrophil # 5.29 X10^3/uL (2.7-7.7); Neutrophil % 63.7 % (47-70); Platelet Count 243 K/mm3 (150-450); RBC Distribution Width CV 13.2 % (11.6-14.6); RBC Distribution Width SD 46.5 fl (35.1-43.9); Red Blood Count 4.24 M/mm3 (4.2-5.4); White Blood Count 8.3 K/mm3 (4.4-11.0)
== END 2023-03-21 12:52 | disposition home or self-care (01) ==
PROVIDERS: Emergency Provider Student in an Organized Health Care Education/Training Program; PCP Family Medicine; Visit Provider Student in an Organized Health Care Education/Training Program
DX: F41.9 Anxiety disorder, unspecified (principal); Z87.891 Personal history of nicotine dependence; E03.9 Hypothyroidism, unspecified; I10 Essential (primary) hypertension; Z79.899 Other long term (current) drug therapy; K21.9 Gastro-esophageal reflux disease without esophagitis; Z90.710 Acquired absence of both cervix and uterus; Z90.49 Acquired absence of other specified parts of digestive tract
CPT/HCPCS: 36415; 80048; 80053; 84439; 84443; 84481; 85025; 99282

== ENCOUNTER 2023-04-02 20:41 | Emergency (ER) | payer MEDICAID, SELFPAY ==
[2023-04-02 20:43] VITALS: BP 185/118; PULSE 118; RESP 16; TEMP 36.6; O2SAT 100; BMI 23.8
--- NOTE | 2023-04-02 22:02 | EDS_ITS ---
HPI History of Present Illness Chief Complaint: Med Refill Narrative Narrative: 52-year-old female with history of anxiety presenting with an anxiety attack. Patient states that she does have Ativan most the time she also has Vistaril that she takes 50 mg as needed. She states she started to feel that she was having an anxiety attack became to the emergency room. She is been trying recently more to cope with this rather than to come to the ER. Last night she stayed with her significant other. Today she tried to go to the gym and walk she has been coloring and drawing try keep her mind off of things. She has a counselor. Is currently out of her Ativan and is waiting till Sunday to get a refill. She should not be out of her Ativan currently she was prescribed a months worth on 03/12/2023. Her primary care physician is Dr. Schneider. [facility] Medical History Allergies Anginal equivalent Anxiety Anxiety Back problem Breast pain, left Carpal tunnel syndrome Chronic neck pain Chronic thoracic back pain Dietary restriction Difficulty swallowing Fat necrosis of breast Former smoker Generalized headaches GERD (gastroesophageal reflux disease) History of echocardiogram History of staph infection History of steroid therapy History of stress test History of ulceration Hormone deficiency Hypertension Hypothyroidism Intertrigo Macromastia Marijuana use Mass of left breast Mass of right breast Methicillin resistant Staphylococcus epidermidis infection Migraine headache Other acute postprocedural pain Shoulder pain Thyroid disease Vision problem Wears glasses Wears partial dentures Home Medications losartan 25 mg tablet (Cozaar) 25 mg PO DAILY 01/27/21 [History Last Taken 10/06/22 07:30] zolpidem 5 mg tablet (Ambien) 5 mg PO QHS PRN Sleep 07/21/21 [History Last Taken Unknown] escitalopram oxalate 10 mg tablet (Lexapro) 20 mg PO DAILY 02/12/22 [History Last Taken Unknown] famotidine 20 mg tablet 20 mg PO Q12H 12/11/22 [History Last Taken Unknown] levothyroxine 88 mcg tablet 88 mcg PO QODAY 01/03/23 [History Last Taken Unknown] lorazepam 1 mg tablet (Ativan) 1 mg PO TID PRN anxiety #10 tabs 02/03/23 [Rx Last Taken Unknown] buspirone 5 mg tablet 15 mg PO BID 03/13/23 [History Last Taken Unknown] hydroxyzine pamoate 50 mg capsule (Vistaril) 50 mg PO QHS 03/13/23 [History Last Taken Unknown] Allergy/AdvReac Type Severity Reaction Status Date / Time azithromycin Allergy Diarrhea Verified 04/02/23 20:43 [From Zithromax Z-Keo] sumatriptan [From Imitrex] Allergy TUNNEL Verified 04/02/23 20:43 VISION sumatriptan succinate Allergy TUNNEL Verified 04/02/23 20:43 [From Imitrex] VISION tramadol AdvReac nausea and Verified 04/02/23 20:43 vomiting Family History Other Anxiety Depression Epilepsy Hormone deficiency Hypertension Seizures Surgical History History of bilateral breast reduction surgery History of breast lump/mass excision History of carpal tunnel release History of esophagogastroduodenoscopy (EGD) S/P correction of deviated nasal septum S/P hysterectomy S/P laparoscopic cholecystectomy S/P left knee surgery S/P tubal ligation S/P wisdom tooth extraction Social History household members: significant other Smoking Status: Former smoker alcohol intake: never substance use type: does not use additional social history: Does Not Take Aspirin Does Not Take Ibuprofen ROS ROS ED Constitutional Constitutional ED: Denies chills, fever(s) or sweats Eyes Eyes: Denies blurry vision or change in vision ENT ENT ED: Denies ear pain or sore throat Cardiovascular Cardiovascular: Denies chest pain, palpitations or racing heartbeat Respiratory/Chest Respiratory/Chest: Denies cough, dyspnea or sputum Gastrointestinal Gastrointestinal: Denies abdominal pain, constipation, diarrhea, nausea or vomiting Genitourinary Genitourinary ED: Denies dysuria, hematuria or urinary frequency Musculoskeletal Musculoskeletal: Denies arthralgias, myalgias or neck pain Integumentary Denies abscess, Abrasions or rash Neurologic Neurologic: Denies headache(s), paresthesias or weakness Psychiatric Psychiatric: Reports anxiety; Denies depression, suicidal ideation or suicidal thoughts Endocrine Endocrinology: Denies polydipsia or polyuria EXAM Physical Exam Const Vital Signs: 04/02/23 20:43 10/16/23 21:04 Temperature 98 F Temperature Source Temporal Pulse Rate 118 H Respiratory Rate 16 Respiratory Effort Normal Respiratory Pattern Normal Blood Pressure 185/118 H Blood Pressure Mean 140 Pulse Ox 100 Positive well nourished General Appearance ED: NAD; Negative for pallor HEENT Reports moist mucous membranes Negative for trauma Eyes PERRL and EOMs intact bilaterally Chest Wall inspection of chest normal and palpation of chest normal Resp normal respiratory effort and clear to auscultation bilaterally Cardio regular rate and regular rhythm GI normal to inspection, nondistended, normoactive bowel sounds Extremity normal to inspection General Extremety ED: Negative for edema or tenderness General Extremity: Negative for edema Neuro oriented x3 and CN's II-XII intact bilaterally Sensorium / Orientation: alert Psych Mood & Affect: anxious Skin no rashes or lesions noted General Skin Exam: Negative for jaundice or pallor MDM MDM MDM Narrative Medical decision making narrative: 52-year-old female presented to the ER for anxiety. She states currently she feels a lot better and her anxiety is coming down. She states at this point she feels like she can go. We just recently did lab work and tested her thyroid enzymes and these were all normal. Patient states she just wants to know if she can take Vistaril in the morning and at bedtime and I counseled her that she could. She states has this at home already. I will give her a dose here. She is discharged home in stable condition. Impression: 1. Anxiety Discharge Plan Triage Chief Complaint: Med Refill ED Provider: Orlando Salas Dx/Rx/DC Orders Prescriptions: No Action losartan [Cozaar] 25 mg tablet 25 mg PO DAILY hydroxyzine pamoate [Vistaril] 50 mg capsule 50 mg PO QHS zolpidem [Ambien] 5 mg Tablet 5 mg PO QHS PRN (Reason: Sleep) escitalopram oxalate [Lexapro] 10 mg Tablet 20 mg PO DAILY famotidine 20 mg tablet 20 mg PO Q12H buspirone 5 mg tablet 15 mg PO BID Patient Comments: take 1 tablet by mouth twice a day for anxiety levothyroxine 88 mcg tablet 88 mcg PO QODAY Patient Comments: take 1 tablet by mouth once daily lorazepam [Ativan] 1 mg tablet 1 mg PO TID PRN (Reason: anxiety) Qty: 10 0RF Primary Care Provider: Milka Schneider Referrals: Milka Schneider MD [Primary Care Provider] -
[2023-04-02] MEDS: hydrOXYzine PAM 25 MG Capsule 50 MG PO (22:49)
== END 2023-04-02 22:52 | disposition home or self-care (01) ==
PROVIDERS: Emergency Provider Student in an Organized Health Care Education/Training Program; PCP Family Medicine; Visit Provider Student in an Organized Health Care Education/Training Program
DX: F41.9 Anxiety disorder, unspecified (principal); Z87.891 Personal history of nicotine dependence; I10 Essential (primary) hypertension; E03.9 Hypothyroidism, unspecified; Z79.899 Other long term (current) drug therapy
CPT/HCPCS: 99282

== ENCOUNTER 2023-04-04 13:23 | Emergency (ER) | payer MEDICAID, SELFPAY ==
[2023-04-04 13:25] VITALS: BP 158/87; PULSE 101; RESP 16; TEMP 35.8; O2SAT 100; BMI 24.1
[2023-04-04 14:04] VITALS: BMI 24.1
[2023-04-04 15:17] LABS: Bacteria 0 SEEN /hpf (None Seen); Mucous, Urine 0 SEEN /hpf (<or=2+); Red Blood Cells-Urine 0 SEEN /hpf (0-5)
[2023-04-04 15:26] LABS: Absolute Lymphocyte Count 2.21 X10^3/uL (0.83-4.51); Absolute Neutrophil Count 8.2 X10^3/uL (2.0-7.7); Basophil# 0.03 X10^3/uL; Basophil% 0.3 % (0-1); Eosinophil# 0.08 X10^3/uL; Eosinophils% 0.7 % (0-5); Hematocrit 42.1 % (37-47); Hemoglobin 13.6 g/dL (12.0-15.0); Lymphocyte # 2.21 X10^3/ul (0.83-4.51); Lymphocyte % 19.8 % (19-41); Mean Corp Hgb Conc 32.3 g/dL (32-36); Mean Corpuscular Hgb 29.8 pg (27.0-32.0); Mean Corpuscular Volume 92.3 fL (81-99); Mean Platelet Vol. 9.6 fl (6.2-12.0); Monocyte# 0.61 X10^3/uL; Monocyte% 5.5 % (0-10); NRBC Flagged by Analyzer 0 % (0-5); Neutrophil # 8.18 X10^3/uL (2.7-7.7); Neutrophil % 73.4 % (47-70); Platelet Count 293 K/mm3 (150-450); RBC Distribution Width CV 12.8 % (11.6-14.6); RBC Distribution Width SD 43.5 fl (35.1-43.9); Red Blood Count 4.56 M/mm3 (4.2-5.4); White Blood Count 11.1 K/mm3 (4.4-11.0)
[2023-04-04 15:38] LABS: ALB/GLOB Ratio 0.9 RATIO (0.9-2.4); AST(SGOT) 22 U/L (15-37); Alanine Aminotransfer ALT/SGPT 25 U/L (13-56); Albumin, Serum 3.8 g/dL (3.2-5.0); Alkaline Phosphatase 91 U/L (45-117); Anion Gap 4 (5-15); BUN 13 mg/dL (7-18); BUN/Creat Ratio 12.5 RATIO (10-20); Calcium,Total 9.7 mg/dL (8.5-10.1); Chloride 106 mmol/L (98-107); Creatinine, Serum 1.04 mg/dL (0.55-1.02); EST Glomerular Filtration Rate 59 mL/min (>60); Est Glom Filt Rate - Afr Amer 72 mL/min (>60); Estimated Creatinine Clearance 65.28 ml/min; Globulin 4.2 g/dL (2.2-4.2); Glucose 100 mg/dL (74-106); Lipase 28 U/L (13-75); Potassium 3.8 mmol/L (3.5-5.1); Sodium Level 137 mmol/L (136-145)
[2023-04-04 15:41] LABS: Color, Urine Yellow (Yellow); Urine Clarity Clear (Clear)
[2023-04-04 15:42] LABS: Glucose, Dipstick Normal (Normal); Ketone-Dipstick 50 mg/dl (Negative); Protein-Dipstick Negative (Negative); Urine Bilirubin Dipstick Negative (Negative); Urine Urobilinogen Normal (Normal)
[2023-04-04 15:43] LABS: Leukocyte Esterase-Dipstick 500 /ul (Negative); Nitrite-Dipstick Negative (Negative); Occult Blood-Urine Negative /ul (Negative); Squamous Epithelial Cells - UA 0-5 SEEN /hpf (5-10); White Blood Cells 5-10 SEEN /hpf (0-5)
[2023-04-04] MEDS: Ketorolac 15 MG/ML Vial IM (15:44)
[2023-04-04] MEDS: Ondansetron 4 MG/2 ML Vial IV (15:44)
--- NOTE | 2023-04-04 15:46 | CT_ITS ---
INDICATION: llq abdominal pain EXAMINATION: CT ABDOMEN AND PELVIS WITH CONTRAST - CT Abdomen And Pelvis W/ Contrast Injection TECHNIQUE: Helically acquired images were obtained of the abdomen and pelvis following IV contrast. A radiation dose optimization technique was used for this scan. IV Contrast dosage and agent: 100 cc Isovue-300 Oral contrast: None. COMPARISON: 03/02/2022 FINDINGS: LOWER CHEST: Lung bases are clear. No cardiomegaly or pericardial effusion. LIVER: Homogeneous. No focal mass. GALLBLADDER AND BILIARY TREE: Gallbladder not identified. No intra- or extrahepatic biliary ductal dilation. PANCREAS: No focal cystic or solid mass. SPLEEN: Normal size without focal cystic or solid mass. ADRENAL GLANDS: No nodules. KIDNEYS AND URETERS: No hydronephrosis or nephrolithiasis. PERITONEUM: No ascites or free air. BOWEL: Normal appendix. No stomach or bowel distension. No focal inflammatory change. LYMPH NODES: No enlarged mesenteric or retroperitoneal lymph nodes. VESSELS: Aorta is non-dilated. URINARY BLADDER: Unremarkable. REPRODUCTIVE ORGANS: Uterus absent. ABDOMINAL WALL: No discrete abdominal or pelvic wall hernia. BONES: No acute or aggressive abnormality. CT/Abdomen/Pelvis W IV Cont ONLY IMPRESSION: No acute findings in the abdomen or pelvis. Electronically Signed: Antonio Magana MD at 16:53 EDT ,
--- NOTE | 2023-04-04 16:48 | ED.VIS.BACK ---
HPI History of Present Illness Chief Complaint: Back Narrative Narrative: 52-year-old female presenting with left-sided back pain. She states that it is sharp and then feels like an ache afterwards. She gets sweaty sometimes with the pain. She states is been here for a while but it is worse today. She states that she was in the ER the other day for anxiety and noted she had some pain there but it was not as severe. She tried Tylenol at home without relief. Patient states that the pain does radiate to the inguinal region. She reports a distant history of kidney stones. She has not had any fevers but does feel nauseous at times when the pain severe. She also had 1 episode of diarrhea and then normal bowel movement. The patient also expresses concern that she had a positive Cologuard recently and is scheduled for colonoscopy. She states this was positive for occult blood. He denies any history of weight loss unintentionally. She does state that time she had some pain in the left lower quadrant and abdominal region. Denies black or bloody stools. Abdominal trauma. [facility] Medical History Allergies Anginal equivalent Anxiety Anxiety Back problem Breast pain, left Carpal tunnel syndrome Chronic neck pain Chronic thoracic back pain Dietary restriction Difficulty swallowing Fat necrosis of breast Former smoker Generalized headaches GERD (gastroesophageal reflux disease) History of echocardiogram History of staph infection History of steroid therapy History of stress test History of ulceration Hormone deficiency Hypertension Hypothyroidism Intertrigo Macromastia Marijuana use Mass of left breast Mass of right breast Methicillin resistant Staphylococcus epidermidis infection Migraine headache Other acute postprocedural pain Shoulder pain Thyroid disease Vision problem Wears glasses Wears partial dentures Home Medications losartan 25 mg tablet (Cozaar) 25 mg PO DAILY 01/27/21 [History Last Taken 10/06/22 07:30] zolpidem 5 mg tablet (Ambien) 5 mg PO QHS PRN Sleep 07/21/21 [History Last Taken Unknown] escitalopram oxalate 10 mg tablet (Lexapro) 20 mg PO DAILY 02/12/22 [History Last Taken Unknown] famotidine 20 mg tablet 20 mg PO Q12H 12/11/22 [History Last Taken Unknown] levothyroxine 88 mcg tablet 88 mcg PO QODAY 01/03/23 [History Last Taken Unknown] lorazepam 1 mg tablet (Ativan) 1 mg PO TID PRN anxiety #10 tabs 02/03/23 [Rx Last Taken Unknown] buspirone 5 mg tablet 15 mg PO BID 03/13/23 [History Last Taken Unknown] hydroxyzine pamoate 50 mg capsule (Vistaril) 50 mg PO QHS 03/13/23 [History Last Taken Unknown] cyclobenzaprine 10 mg tablet 10 mg PO TID PRN Muscle Spasm #20 TABLETS 04/04/23 [Rx Last Taken Unknown] Allergy/AdvReac Type Severity Reaction Status Date / Time azithromycin Allergy Diarrhea Verified 04/04/23 13:28 [From Zithromax Z-Keo] sumatriptan [From Imitrex] Allergy TUNNEL Verified 04/04/23 13:28 VISION sumatriptan succinate Allergy TUNNEL Verified 04/04/23 13:28 [From Imitrex] VISION tramadol AdvReac nausea and Verified 04/04/23 13:28 vomiting Family History Other Anxiety Depression Epilepsy Hormone deficiency Hypertension Seizures Surgical History History of bilateral breast reduction surgery History of breast lump/mass excision History of carpal tunnel release History of esophagogastroduodenoscopy (EGD) S/P correction of deviated nasal septum S/P hysterectomy S/P laparoscopic cholecystectomy S/P left knee surgery S/P tubal ligation S/P wisdom tooth extraction Social History household members: significant other Smoking Status: Former smoker alcohol intake: never substance use type: does not use additional social history: Does Not Take Aspirin Does Not Take Ibuprofen ROS ROS ED Constitutional Constitutional ED: Reports sweats; Denies chills or fever(s) Eyes Eyes: Denies blurry vision or change in vision ENT ENT ED: Denies ear pain or sore throat Cardiovascular Cardiovascular: Denies chest pain, palpitations or racing heartbeat Respiratory/Chest Respiratory/Chest: Denies cough, dyspnea or sputum Gastrointestinal Gastrointestinal: Reports abdominal pain and nausea; Denies constipation, diarrhea or vomiting Genitourinary Genitourinary ED: Denies dysuria, hematuria or urinary frequency Musculoskeletal Musculoskeletal: Reports back pain; Denies arthralgias, myalgias or neck pain Integumentary Denies abscess, Abrasions or rash Neurologic Neurologic: Denies headache(s), paresthesias or weakness Psychiatric Psychiatric: Denies anxiety, depression, suicidal ideation or suicidal thoughts Endocrine Endocrinology: Denies polydipsia or polyuria EXAM Physical Exam Const Vital Signs: 04/04/23 13:25 Temperature 96.4 F L Temperature Source Temporal Pulse Rate 101 H Respiratory Rate 16 Blood Pressure 158/87 H Blood Pressure Mean 110 Pulse Ox 100 Oxygen Delivery Method Room Air Positive well nourished General Appearance ED: NAD HEENT Reports moist mucous membranes Eyes PERRL and EOMs intact bilaterally Resp normal respiratory effort and clear to auscultation bilaterally Auscultation: Negative for rales, rhonchi or wheezes Cardio regular rate and regular rhythm GI Palpation: tender LLQ Back/Spine Back/Spine Narrative: Left lumbar paraspinal musculature tenderness. No midline spinal tenderness or deformity. No CVA tenderness Extremity normal to inspection Neuro oriented x3 and no sensory deficits noted Sensorium / Orientation: alert Motor Exam: strength 5/5 throughout Psych mental status grossly normal Skin no rashes or lesions noted and no wounds MDM MDM MDM Narrative Medical decision making narrative: 52-year-old female presenting with left flank pain. She has no CVA tenderness. She does have tenderness to palpation. She is stating that is rating to the left inguinal region and she does have history of kidney stones. Toradol for pain. Given Zofran for nausea. Differential includes UTI, pyelonephritis, kidney stone, diverticulitis, colitis, malignancy. Urinalysis negative for occult blood. No infection present. CBC shows minimal leukocytosis of 11.1. Hemoglobin 13.6. Platelets are normal at 293. Creatinine slightly elevated 1.04. CT abdomen pelvis with IV contrast shows no acute process. Patient counseled on findings. We will treat her as lumbar strain. She is given cyclobenzaprine for pain. Return precautions were discussed. Impression: 1. Left flank pain 2. Abdominal pain Lab Data Attestation: I reviewed the patient's lab results. Labs: Laboratory Results - last 24 hr 04/04/23 15:03 WBC 11.1 H RBC 4.56 Hgb 13.6 Hct 42.1 MCV 92.3 MCH 29.8 MCHC 32.3 RDW Std Deviation 43.5 RDW Coeff of Dylon 12.8 Plt Count 293 MPV 9.6 Immature Gran % (Auto) 0.300 Neut % (Auto) 73.4 H Lymph % (Auto) 19.8 [place] % (Auto) 5.5 Eos % (Auto) 0.7 Baso % (Auto) 0.3 Absolute Neuts (auto) 8.2 H Absolute Lymphs (auto) 2.21 Nucleated RBC % 0 Sodium 137 Potassium 3.8 Chloride 106 Carbon Dioxide 27.0 Anion Gap 4 L BUN 13 Creatinine 1.04 H Estim Creat Clear Calc 65.28 Est GFR (MDRD) Af Amer 72 Est GFR (MDRD) Non-Af 59 L BUN/Creatinine Ratio 12.5 Glucose 100 Calcium 9.7 Total Bilirubin 0.30 AST 22 ALT 25 Alkaline Phosphatase 91 Total Protein 8.0 Albumin 3.8 Globulin 4.2 Albumin/Globulin Ratio 0.9 Lipase 28 Urine Color Yellow Urine Clarity Clear Urine pH 6.0 Ur Specific [place] 1.020 Urine Protein Negative Urine Glucose (UA) Normal Urine Ketones 50 H Urine Occult Blood Negative Urine Nitrite Negative Urine Bilirubin Negative Urine Urobilinogen Normal Ur Leukocyte Esterase 500 H Urine RBC 0 SEEN Urine WBC 5-10 SEEN Ur Squamous Epith Cells 0-5 SEEN Urine Bacteria 0 SEEN Urine Mucus 0 SEEN Radiography Diagnostic Testing: Clinical Impression(s) from Imaging Studies Abdomen/Pelvis CT 04/04/23 15:46 IMPRESSION: No acute findings in the abdomen or pelvis. Electronically Signed: Antonio Magana MD at 16:53 EDT Reading Location ID and State: [address] [place] [address] Tel , Service support , Discharge Plan Triage Chief Complaint: Back Other Complaint: Abd Pain ED Provider: Orlando Salas Dx/Rx/DC Orders Instructions: ED Abdominal Pain Unkn Cause Fem, ED Back Pain (Acute or Chronic) Prescriptions: New cyclobenzaprine 10 mg tablet 10 mg PO TID PRN (Reason: Muscle Spasm) Qty: 20 0RF No Action losartan [Cozaar] 25 mg tablet 25 mg PO DAILY hydroxyzine pamoate [Vistaril] 50 mg capsule 50 mg PO QHS zolpidem [Ambien] 5 mg Tablet 5 mg PO QHS PRN (Reason: Sleep) escitalopram oxalate [Lexapro] 10 mg Tablet 20 mg PO DAILY famotidine 20 mg tablet 20 mg PO Q12H buspirone 5 mg tablet 15 mg PO BID Patient Comments: take 1 tablet by mouth twice a day for anxiety levothyroxine 88 mcg tablet 88 mcg PO QODAY Patient Comments: take 1 tablet by mouth once daily lorazepam [Ativan] 1 mg tablet 1 mg PO TID PRN (Reason: anxiety) Qty: 10 0RF Primary Care Provider: Milka Schneider Referrals: Milka Schneider MD [Primary Care Provider] - Disposition Disposition: Home, Self Care
== END 2023-04-04 18:05 | disposition home or self-care (01) ==
PROVIDERS: Emergency Provider Student in an Organized Health Care Education/Training Program; PCP Family Medicine; Visit Provider Student in an Organized Health Care Education/Training Program
DX: R10.32 Left lower quadrant pain (principal); S39.012A Strain of muscle, fascia and tendon of lower back, initial encounter; X58.XXXA Exposure to other specified factors, initial encounter; R11.0 Nausea; Z79.890 Hormone replacement therapy; Z79.899 Other long term (current) drug therapy; Z87.891 Personal history of nicotine dependence
CPT/HCPCS: 74177; 80053; 81001; 83690; 85025; 96372; 96374; 99284; Q9967; A4216; J2405

== ENCOUNTER → 2023-04-11 | Outpatient (CLI) | payer MEDICAID, SELFPAY ==
--- NOTE | 2023-04-11 14:56 | VDUE_ITS ---
Reason For Study: Swelling LUE Right Proximal Left Proximal Right subclavian vein is spontaneous, widely Left jugular vein is spontaneous, widely patent, phasic, with no intraluminal patent, phasic, with no intraluminal echogenicity noted. echogenicity noted. Left subclavian vein is spontaneous, widely patent, phasic, with no intraluminal echogenicity noted. Left Arm Left axillary vein is spontaneous, patent, phasic, competent, compressible and demonstrates augmentation. Left brachial vein is compressible. Left cephalic vein is compressible. Left basilic vein is compressible. Left Lower Arm Left radial vein is compressible. Left ulnar vein is compressible. VL/Venous Duplex US, Unilateral Interpretation Summary Deep veins of the left upper extremity are patent and compressible segmentally. There is no evidence of deep vein thrombosis. Superficial veins of the left upper extremity are patent and compressible segme ntally. There is no evidence of superficial vein thrombosis. Ordering Physician: Vickie Sol Referring Physician: Milka Schneider Performed By: Raquel Chu, RDCAROLYNN, RVT ???
== END | disposition home or self-care (01) ==
LOC: CVS 14:46
PROVIDERS: PCP Family Medicine; Referring Provider Nurse Practitioner Family; Visit Provider Nurse Practitioner Family
DX: M79.89 Other specified soft tissue disorders (principal); M25.512 Pain in left shoulder; Z98.890 Other specified postprocedural states
CPT/HCPCS: 93971

== ENCOUNTER 2023-04-25 15:00 | Outpatient (RCR) | payer MEDICAID, SELFPAY ==
--- NOTE | 2023-03-26 15:30 | HP.PTEVAL_ITS ---
Patient's Visit Information Visit Information Visit Information: HELEN PETTIT is a 52 year old F referred to Physical Therapy by FRANCOIS Monroe with a diagnosis of L shoulder pain/arm swelling. Date of Evaluation: 03/26/23 Physical Therapist: ASHLEY Hernandez Visit Plan Frequency: 2x /Week Duration: 2 Months Plan: 2X/ week for 8 weeks for L shoulder PROM, AROM, AAROM, RC strengthening and scapular strength with HEP Subjective Subjective: She had a breast reduction a year ago they found crystalize lumps and they took them out. She is getting swelling of the bicep on the L. She does not feel anything irritates it. It will swell and the tendons will hurt a little bit. is questioning lymphedema. It swells when her thyroid medicine is off for sure but not sure the rhyme or reason. She has mild pain today. She has pain around the L shoulder deltoid pain when it swells otherwise she has no pain with movement. She does not feel weak. She is Right handed. She can sleep on her L side ok. She walks every other day. They took blood and her blood work looks good and her thyroid level now looks good. She planning on [employer] to work out at [employer] when she is done here. Pain L shoulder pain: Pain Intensity (Out of 10): 2 Pain Intensity Range: 8 Objective Objective: R handed: R drawer in dobby loom 60# and L 45# R shoulder AROM: flex 138, ABD 150, ER 51, IR T8 L shoulder AROM: flex 135, ABD 145, ER 45, IR T10 R shoulder MMT: flex 10.1, ABD 9.5, ER 11, IR 9.5, bicep 10.2 L shoulder MMT: flex 8.8, ABD 8.7. ER 9.3, IR 8.9, bicep 9.9 Palpation: light tenderness over the deltoid L PROM: tight at end range flex and ABD but really no pain. Balance/Special Test Scores Quick DASH Score: 13.6350 Goals Goal 1:: I HEP Goal Time Frame: 6-8 Weeks Goal 2:: Increase L shoulder AROM (At time of eval: L shoulder AROM: flex 135, ABD 145, ER 45, IR T10) Goal Time Frame: 6-8 Weeks Goal 3:: Increase L shoulder strength (at time of the eval: L shoulder MMT: fle x 8.8, ABD 8.7. ER 9.3, IR 8.9) Goal Time Frame: 6-8 Weeks Goal 4:: Decrease swelling episodes of L arm Goal Time Frame: 6-8 Weeks Rehabilitation Potential Rehabilitation Potential: Good Anticipated Interventions Patient/Client Instruction: Educate patient on: Condition and Plan of Care For the Purpose of:: To decrease pain, To decrease swelling/inflammation, To increase ROM, To improve nutrient delivery to tissue, To improve muscle performance and motor function, To improve performance and independence with ADL's, To improve health of tissue, To decrease soft tissue restriction and To increase flexibility/ROM Therapeutic Exercise to Include: Strength training, Postural training, Flexibilty training, Passive ROM, Active ROM and Scapular Strength/Stabilization For the Purpose of:: To decrease pain, To decrease swelling/inflammation, To improve nutrient delivery to tissue, To improve muscle performance and motor function, To improve ability to perform ADL's, To increase tolerance to activity/condition/position, To improve performance and independence with ADL's, To improve health of tissue, To decrease soft tissue restriction and To increase flexibility/ROM Manual Therapy Techniques to Include: Passive ROM and Soft tissue mobilization For the Purpose of:: To decrease pain, To decrease swelling/inflammation, To increase ROM, To improve nutrient delivery to tissue, To improve muscle performance and motor function, To improve ability to perform ADL's, To improve gait and locomotor functions, To decrease soft tissue restriction and To increase flexibility/ROM Text: Thank you for the opportunity to evaluate your patient. For Medicare and Medicare HMO plans, please review the plan of care and approve it. It will need to be FAXED BACK to us at [phone] for Medicare purposes. For Medicare only, by signing this I certify the plan of care. Please let me know if there are questions or concerns regarding this plan of care. Physician Signature: Date:
--- NOTE | 2023-04-25 15:16 | HP.PTDCSUM ---
Discharge Summary D/C summary: It has been my pleasure to treat HELEN PETTIT referred by FRANCOIS Monroe, with the diagnosis of L shoulder pain/arm swelling for a total of 7 visit(s). Discharge Date: 04/25/23 Please see the following information for a summary of their discharge status. Subjective Subjective: Pt is doing ok. She has been going to the gym to stretch more. She has been doing the stick exercises at home. She is still getting some swelling if she does too much at the gym so she is going to focus on lower body and focus on L arm exercises at home. She has good understanding of HEP with bands also. Pt reports that her swelling is also way down Pain L shoulder pain: Pain Intensity (Out of 10): 4 Overall Improvement % Improvement: 90 Objective Objective/Function: L shoulder MMT: flex 11.1, ABD 8.8. ER 13.4, IR 11.8 Shoulder AROM: flex 150, ABD 170, ER 58, IR T10 Pt has full understanding of HEP Goals Goal 1:: I HEP Goal Progress: Goal Met Goal 2:: Increase L shoulder AROM (At time of eval: L shoulder AROM: flex 135, ABD 145, ER 45, IR T10) Goal Progress: Goal Met Goal 3:: Increase L shoulder strength (at time of the eval: L shoulder MMT: flex 8.8, ABD 8.7. ER 9.3, IR 8.9) Goal Progress: Goal Met Goal 4:: Decrease swelling episodes of L arm Goal Progress: Goal Met Plan Plan: DC PT to HEP D/C Information Discharge Comments: DC PT to HEP d/c sentence: If there are questions or concerns regarding this patient's physical therapy, please feel free to call me at [phone]. Thank you for the referral of this patient. Sincerely, Mallory Danielle, MPT Balance/Gait/Functional tests Balance/Special Test Scores Quick DASH Score: 11.3625 Improvement % Improvement: 90
== END 2023-04-25 19:00 | disposition home or self-care (01) ==
LOC: PT 15:00
PROVIDERS: PCP Family Medicine; Referring Provider Nurse Practitioner Family; Visit Provider Nurse Practitioner Family
DX: M25.512 Pain in left shoulder (principal); M79.89 Other specified soft tissue disorders; Z98.890 Other specified postprocedural states
CPT/HCPCS: 97110; 97140; 97161; 97530

== ENCOUNTER 2023-05-01 08:25 | Day surgery (SDC) | payer MEDICAID, SELFPAY ==
[2023-05-01] VITALS (7 sets, daily range): BP systolic 107–124; BP diastolic 64–88; PULSE 69–82; RESP 16–18; TEMP 36.2–36.7; O2SAT 99–100; BMI 24.5
[2023-05-01] MEDS: Lactated Ringers 1,000 ML 15 ML IV (08:54)
--- NOTE | 2023-05-01 09:41 | HP.PCM_ITS ---
History and Physical Date of Admission: 05/01/23 Intake Vital Signs 03/13/2314:03 03/21/2310:05 03/28/2315:02 Height 5 ft 8 in 5 ft 8 in 5 ft 8 in Weight: 160 lb BMI 24.3 BP 125/84 H Blood Pressure Location Rt brachial Position Sitting Respiration 16 Intake Visit Reasons: POSITIVE COLOGUARD Chief Complaint: postitive cologuard Resource Forester Required: No Is patient in pain?: No Allergies azithromycin [From Zithromax Z-Keo] Allergy (Verified 03/28/23 15:04) Diarrheasumatriptan [From Imitrex] Allergy (Verified 03/28/23 15:04) TUNNEL VISIONsumatriptan succinate [From Imitrex] Allergy (Verified 03/28/23 15:04) TUNNEL VISIONtramadol Adverse Reaction (Verified 03/28/23 15:04) nausea and vomiting Medications losartan 25 mg tablet (Cozaar) 25 mg PO DAILY 01/27/21 [History Confirmed 03/28/23] zolpidem 5 mg tablet (Ambien) 5 mg PO QHS PRN Sleep 07/21/21 [History Confirmed 03/28/23] escitalopram oxalate 10 mg tablet (Lexapro) 20 mg PO DAILY 02/12/22 [History Confirmed 03/28/23] famotidine 20 mg tablet 20 mg PO Q12H 12/11/22 [History Confirmed 03/28/23] linaclotide 290 mcg capsule (Linzess) 290 mcg PO DAILY PRN PRN CONSTIPATION 12/11/22 [History Confirmed 03/28/23] levothyroxine 88 mcg tablet 88 mcg PO QODAY 01/03/23 [History Confirmed 03/28/23] gabapentin 300 mg/6 mL (6 mL) oral solution 300 mg (6 mL) PO BID nerve pain 30 days #360 mL 01/09/23 [Rx Confirmed 03/28/23] ondansetron 4 mg disintegrating tablet 4 mg PO Q6H PRN nausea and vomiting #20 tabs 01/19/23 [Rx Confirmed 03/28/23] lorazepam 1 mg tablet (Ativan) 1 mg PO TID PRN anxiety #10 tabs 02/03/23 [Rx Confirmed 03/28/23] buspirone 5 mg tablet 15 mg PO BID 03/13/23 [History Confirmed 03/28/23] hydroxyzine pamoate 50 mg capsule (Vistaril) 50 mg PO QHS 03/13/23 [History Confirmed 03/28/23] PFSH Medical History Allergies Anginal equivalent Anxiety Anxiety Back problem Breast pain, left Carpal tunnel syndrome Chronic neck pain Chronic thoracic back pain Dietary restriction Difficulty swallowing Fat necrosis of breast Former smoker Generalized headaches GERD (gastroesophageal reflux disease) History of echocardiogram History of staph infection History of steroid therapy History of stress test History of ulceration Hormone deficiency Hypertension Hypothyroidism Intertrigo Macromastia Marijuana use Mass of left breast Mass of right breast Methicillin resistant Staphylococcus epidermidis infection Migraine headache Other acute postprocedural pain Shoulder pain Thyroid disease Vision problem Wears glasses Wears partial dentures Surgical History History of bilateral breast reduction surgery History of breast lump/mass excision History of carpal tunnel release History of esophagogastroduodenoscopy (EGD) S/P correction of deviated nasal septum S/P hysterectomy S/P laparoscopic cholecystectomy S/P left knee surgery S/P tubal ligation S/P wisdom tooth extraction Family History Other Anxiety Depression Epilepsy Hormone deficiency Hypertension Seizures Social History household members: significant other Smoking Status: Former smoker alcohol intake: never substance use type: does not use additional social history: Does Not Take Aspirin Does Not Take Ibuprofen HPI HPI HPI: Patient is a 52-year-old female here with positive Cologuard. She denies abdominal pain or blood in the stool. She does not have family history of colon cancer. She says she has had a colonoscopy within the last few years but she thinks it was done here but I was not able to find any record of it. It may have been done at [facility]. ROS General General: Yes fatigue; No weight change, appetite, colon cancer, breast cancer or weakness HEENT HEENT: No difficulty swallowing, eye injury, eye surgery, swollen glands or hoarseness Endo Endocrine: Yes thyroid disease; No diabetes mellitus, thyroid cancer, Hair loss, heat intolerance or cold intolerance Skin Skin: No rash or changing moles Breast Breast: No left breast lump, right breast lump, nipple discharge, breast pain, abnormal mammogram, abnormal US or breast enlargement Musc Musculoskeletal: Yes back problems; No arthritis, rheumatoid arthritis, gout or joint pain Cardio Cardiovascular: Yes high blood pressure; No murmur, pacemaker, heart disease, atrial fibrillation, heart attack, heart stent, palpitations, shortness of breat with exertion or chest pain Psych Psychiatric: Yes depression and anxiety; No hearing voices Resp Respiratory: No shortness of breath, No sleep apnea, No cough, No COPD, No asthma, No emphysema and No wheezing Gastro Gastrointestinal: Yes abdominal pain, No nausea or vomiting, No diarrhea, Yes constipation, No blood in stool, Yes acid reflux, No hemorrhoids, No ulcers, No gallbladder problem and No black,tarry stools Wilbur Hematologic: No blood thinners, No blood disorders, No bleeding, No anemia and No blood clots Neuro Neurologic: No system reviewed and no additional complaints, except as documented, No as per HPI, No abnormal gait, No abnormal hearing, No abnormal movements, No abnormal speech, No behavioral changes, No burning sensations, No confusion, No convulsions, No disequilibrium, No dizziness, No localized weakne ss, No frequent falls, No headache(s), No lack of coordination, No loss of vision, No memory loss, No numbness, No other visual disturbances, No radicular pain, No restless legs, No sensory deficit, No syncope, No tingling, No tremor(s), No weakness and No other Exam Const General: cooperative Orientation: alert and oriented x3 HENUT Head: normal to inspection Neck Neck: normal visual inspection and full ROM Chest Chest palpation & inspection: normal inspection of the chest Resp Effort & Inspection: normal respiratory effort Auscultation: clear to auscultation bilaterally Cardio Rate: regular rate Rhythm: regular rhythm GI Inspection: non-distended Palpation: soft and nontender Skin General: no rashes or lesions noted Neuro General: patient alert and patient oriented x3 Extrem General: full ROM Psych Appearance: grossly normal Mental Status: mental status grossly normal Assessment and Plan Assessment and Plan (1) Positive colorectal cancer screening using Cologuard test: Status: Acute Plan: I recommend colonoscopy. Patient had an EGD in 2020 which was normal. I explained endoscopy in detail to the patient. I explained the risks including but not limited to stroke or heart attack with anesthesia, perforation of the GI tract, bleeding, infection. I explained that any of these could necessitate further emergency surgery. The patient understands and all questions were answered sufficiently. The patient wishes to proceed with procedure. Eddie Boss MD Pager: [facility] [address] [place] [address], [address] [place] [address] Office: I have examined the patient and the H&P has been reviewed. There are no clinical changes since date of exam.
--- NOTE | 2023-05-01 10:07 | OP.CCLET_ITS ---
05/01/2023 Milka Schneider [id number] [facility] [address] [address] Re : Colonoscopy procedure for Louise Luan Dear Dr. Schneider This procedure was performed on Monday, May 01, 2023. My impressions and recommendations are as follows: Impressions : - The entire examined colon is normal on direct and retroflexion views. - No specimens collected. Recommendations : - Discharge patient to home. - Resume previous diet. - Continue present medications. - Repeat colonoscopy in 10 years for screening purposes. My findings are described in the full procedure note, which is enclosed. If I can be of further assistance, please feel free to contact me at Doctor phone number(s): , Work: . Sincerely, Eddie Boss MD 05/01/2023 10:06:55 AM This report has been signed electronically.
--- NOTE | 2023-05-01 10:07 | OP.COLON_ITS ---
Patient Name: Louise Roland Procedure Date: 05/01/2023 9:43 AM Date of : 1970 Age: 52 Procedure: Colonoscopy Indications: Positive Cologuard test Providers: Eddie Boss MD Medicines: Monitored Anesthesia Care Patient Profile: This is a 52 year old female. Refer to note in patient chart for documentation of history and physical. Last Colonoscopy: none. The patient's first colonoscopy is today. Complications: No immediate complications. Procedure: Pre-Anesthesia Assessment: - Prior to the procedure, a History and Physical was performed, and patient medications and allergies were reviewed. The patient's tolerance of previous anesthesia was also reviewed. The risks and benefits of the procedure and the sedation options and risks were discussed with the patient. All questions were answered, and informed consent was obtained. Prior Anticoagulants: The patient has taken no anticoagulant or antiplatelet agents. After reviewing the risks and benefits, the patient was deemed in satisfactory condition to undergo the procedure. After I obtained informed consent, the scope was passed under direct vision. Throughout the procedure, the patient's blood pressure, pulse, and oxygen saturations were monitored continuously. The was introduced through the anus and advanced to the cecum, identified by appendiceal orifice and ileocecal valve. The colonoscopy was performed with difficulty due to poor bowel prep with stool present. The patient tolerated the procedure well. The quality of the bowel preparation was adequate to identify polyps greater than 5 mm in size. The ileocecal valve, appendiceal orifice, and rectum were photographed. Scope In: 9:50:54 AM Scope Withdrawal Time 0 hours 8 minutes 15 seconds Scope Out: 10:04:02 AM Total Procedure Duration Time 0 hours 13 minutes 8 seconds Findings: The entire examined colon appeared normal on direct and retroflexion views. Impression: - The entire examined colon is normal on direct and retroflexion views. - No specimens collected. Recommendation: - Discharge patient to home. - Resume previous diet. - Continue present medications. - Repeat colonoscopy in 10 years for screening purposes. Procedure Code(s): --- Professional --- 62680, Colonoscopy, flexible; diagnostic, including collection of specimen(s) by brushing or washing, when performed (separate procedure) Diagnosis Code(s): --- Professional --- R19.5, Other fecal abnormalities CPT copyright 2021 [employer]. All rights reserved. The codes documented in this report are preliminary and upon hcc coders review may be revised to meet current compliance requirements. Eddie Boss MD 05/01/2023 10:06:55 AM This report has been signed electronically. Number of Addenda: 0 Note Initiated On: 05/01/2023 9:43 AM
== END 2023-05-01 10:45 | disposition home or self-care (01) ==
LOC: EN 08:26 → AC 08:27
PROVIDERS: PCP Family Medicine; Referring Provider Family Medicine; Visit Provider Surgery
PROC: 0DJD8ZZ Inspection of Lower Intestinal Tract, Via Natural or Artificial Opening Endoscopic (ICD-10-PCS; CPT 45378; principal; 2023-05-01 09:25)
DX: R19.5 Other fecal abnormalities (principal); Z87.891 Personal history of nicotine dependence; Z79.899 Other long term (current) drug therapy; Z79.890 Hormone replacement therapy; F41.9 Anxiety disorder, unspecified; I10 Essential (primary) hypertension; E03.9 Hypothyroidism, unspecified; Z90.49 Acquired absence of other specified parts of digestive tract
CPT/HCPCS: 45378; J7120; J2405

== ENCOUNTER 2023-05-02 12:20 | Emergency (ER) | payer MEDICAID, SELFPAY ==
[2023-05-02 12:21] VITALS: BP 152/99; PULSE 84; RESP 16; TEMP 36.3; O2SAT 99; BMI 24.6
--- NOTE | 2023-05-02 12:24 | EKG12_ITS ---
Test Reason : CP Blood Pressure : / mmHG Vent. Rate : 078 BPM Atrial Rate : 078 BPM P-R Int : 182 ms QRS Dur : 100 ms QT Int : 372 ms P-R-T Axes : 057 062 068 degrees QTc Int : 424 ms Normal sinus rhythm Nonspecific ST abnormality Abnormal ECG Confirmed by LYNNE VALENZUELA, NURYS ([id number]), content editor LILIANA FLAHERTY ([id number]) on 05/09/2023 11:46:01 AM Referred By: Confirmed By:NURYS BATISTA MD
[2023-05-02 13:20] LABS: Anion Gap 8 (5-15); BUN 12 mg/dL (7-18); BUN/Creat Ratio 12.5 RATIO (10-20); Calcium,Total 9.4 mg/dL (8.5-10.1); Chloride 108 mmol/L (98-107); Creatinine, Serum 0.96 mg/dL (0.55-1.02); EST Glomerular Filtration Rate 65 mL/min (>60); Est Glom Filt Rate - Afr Amer 79 mL/min (>60); Estimated Creatinine Clearance 70.72 ml/min; Glucose 86 mg/dL (74-106); Potassium 3.5 mmol/L (3.5-5.1); Sodium Level 140 mmol/L (136-145); Troponin-I HS (w/2H Reflex) 9 pg/mL (3.0-54.0)
--- NOTE | 2023-05-02 13:39 | ED.VIS.CHEST ---
HPI <Dr. Iram Diaz DO - Last Filed: 05/02/23 15:48> History of Present Illness Chief Complaint: Chest Pain Detail of Chief Complaint: Chest pain and dizziness Informant: patient Narrative Narrative: Patient presents with chest pain and dizziness that started this morning. Describes a burning across right side of her chest. Patient denies nausea or vomiting. She tells me she had a colonoscopy yesterday. She denies any abdominal pain. She is passing gas. Patient has history of anxiety and history of GERD. She took her medications this morning. She thinks her symptoms may be anxiety related possibly. Patient denies recent travel or surgery. Patient currently coming off her Ambien because she does not want to be on it anymore she is almost completely done with it. [facility] <Dr. Iram Diaz DO - Last Filed: 05/02/23 15:48> [facility] Medical History Allergies Anginal equivalent Anxiety Anxiety Back problem Breast pain, left Carpal tunnel syndrome Chronic neck pain Chronic thoracic back pain Dietary restriction Difficulty swallowing Fat necrosis of breast Former smoker Generalized headaches GERD (gastroesophageal reflux disease) History of echocardiogram History of staph infection History of steroid therapy History of stress test History of ulceration Hormone deficiency Hypertension Hypothyroidism Intertrigo Macromastia Marijuana use Mass of left breast Mass of right breast Methicillin resistant Staphylococcus epidermidis infection Migraine headache Other acute postprocedural pain Shoulder pain Thyroid disease Vision problem Wears glasses Wears partial dentures Home Medications losartan 25 mg tablet (Cozaar) 25 mg PO DAILY 01/27/21 [History Last Taken 10/06/22 07:30] escitalopram oxalate 10 mg tablet (Lexapro) 20 mg PO DAILY 02/12/22 [History Last Taken 04/30/23] famotidine 20 mg tablet 20 mg PO Q12H 12/11/22 [History Last Taken Unknown] levothyroxine 88 mcg tablet 88 mcg PO DAILY 01/03/23 [History Last Taken 04/30/23] lorazepam 1 mg tablet (Ativan) 1 mg PO TID PRN anxiety #10 tabs 02/03/23 [Rx Last Taken Unknown] buspirone 5 mg tablet 15 mg PO BID 03/13/23 [History Last Taken 04/30/23] hydroxyzine pamoate 50 mg capsule (Vistaril) 50 mg PO DAILY 03/13/23 [History Last Taken 04/30/23] cyclobenzaprine 10 mg tablet 10 mg PO TID PRN Muscle Spasm #20 TABLETS 04/04/23 [Rx Last Taken 04/30/23] dicyclomine 10 mg capsule 10 mg PO TID 04/26/23 [History Last Taken Unknown] Allergy/AdvReac Type Severity Reaction Status Date / Time azithromycin Allergy Diarrhea Verified 05/02/23 12:23 [From Zithromax Z-Keo] sumatriptan [From Imitrex] Allergy TUNNEL Verified 05/02/23 12:23 VISION sumatriptan succinate Allergy TUNNEL Verified 05/02/23 12:23 [From Imitrex] VISION tramadol AdvReac nausea and Verified 05/02/23 12:23 vomiting Family History Other Anxiety Depression Epilepsy Hormone deficiency Hypertension Seizures Surgical History History of bilateral breast reduction surgery History of breast lump/mass excision History of carpal tunnel release History of esophagogastroduodenoscopy (EGD) S/P correction of deviated nasal septum S/P hysterectomy S/P laparoscopic cholecystectomy S/P left knee surgery S/P tubal ligation S/P wisdom tooth extraction Social History household members: significant other Smoking Status: Former smoker alcohol intake: never substance use type: does not use additional social history: Does Not Take Aspirin Does Not Take Ibuprofen ROS <Dr. Iram Diaz DO - Last Filed: 05/02/23 15:48> ROS ED Review of Systems ROS Unobtainable: other Constitutional Constitutional ED: Reports lethargy; Denies chills, fever(s), sweats or weight loss Eyes Eyes: Denies blurry vision, change in vision or diplopia ENT ENT ED: Denies rhinorrhea or sore throat Cardiovascular Cardiovascular: Reports chest pain; Denies orthopnea or racing heartbeat Respiratory/Chest Respiratory/Chest: Denies cough, dyspnea, dyspnea on exertion, orthopnea or sputum Gastrointestinal Gastrointestinal: Denies abdominal pain, diarrhea, nausea or vomiting Genitourinary Genitourinary ED: Denies dysuria, hematuria or urinary frequency Musculoskeletal Musculoskeletal: Denies arthralgias, back pain, myalgias or neck pain Integumentary Denies abscess, Abrasions or rash Neurologic Neurologic: Reports other Details: Dizziness ; Denies headache(s) or weakness Psychiatric Psychiatric: Denies anxiety, depression or suicidal thoughts Endocrine Endocrinology: Denies polydipsia, polyphagia or polyuria Hematologic/Lymphatic Hematologic/Lymphatic: Denies easy bleeding, easy bruising or lymphadenopathy Allergic/Immunologic Allergic/Immunologic ED: Denies mouth swelling, tongue swelling or urticaria EXAM <Dr. Iram Diaz, DO - Last Filed: 05/02/23 15:48> Physical Exam Const Vital Signs: 05/02/23 12:21 Temperature 97.4 F L Temperature Source Temporal Pulse Rate 84 Respiratory Rate 16 Blood Pressure 152/99 H Blood Pressure Mean 116 Pulse Ox 99 Oxygen Delivery Method Room Air Positive well nourished and well developed General Appearance ED: well developed and NAD HEENT Reports TM's clear and moist mucous membranes normocephalic and atraumatic; Negative for trauma or tenderness Tympanic Membrane ED: Yes TM's clear Eyes PERRL and EOMs intact bilaterally General Eye ED: Negative for pale conjunctiva or scleral icterus Neck no lymphadenopathy, supple and no JVD General: Negative for tenderness Chest Wall inspection of chest normal and palpation of chest normal Chest: Negative for tenderness Resp normal respiratory effort and clear to auscultation bilaterally Effort and Inspection: Negative for respiratory distress or pain with movement Auscultation: Negative for rhonchi, wheezes or diminished lung sounds Cardio regular rate, regular rhythm, S1 normal heart sound, S2 normal heart sound and no murmurs Peripheral Pulses: pulses 2+ throughout GI normal to inspection, nondistended, normoactive bowel sounds, soft to palpation, non-tender, non-distended and no masses Back/Spine no CVA tenderness and no thoracic nor lumbar tenderness Extremity normal to inspection General Extremety ED: Negative for edema General Extremity: Negative for edema Neuro oriented x3, CN's II-XII intact bilaterally, no sensory deficits noted and gait normal Sensorium / Orientation: awake, alert, oriented to person, oriented to place and oriented to time Motor Exam: strength 5/5 throughout and strength abnormal Psych mental status grossly normal Skin no rashes or lesions noted and no wounds <Dr. Tomas Moreno, DO - Last Filed: 05/02/23 16:19> Physical Exam Const Vital Signs: 05/02/23 12:21 Temperature 97.4 F L Temperature Source Temporal Pulse Rate 84 Respiratory Rate 16 Blood Pressure 152/99 H Blood Pressure Mean 116 Pulse Ox 99 Oxygen Delivery Method Room Air [facility] <Dr. Iram Diaz, DO - Last Filed: 05/02/23 15:48> [facility] Narrative Medical decision making narrative: Patient presents with chest discomfort that started this morning. She had a colonoscopy yesterday. She has history of GERD and anxiety both. She states she took her Vistaril before coming to the hospital. She is not sure if her chest pain that she describes as a burning sensation in the right side of her chest is related to her reflux or anxiety possibly. She has no recent history of travel or surgery or history of PE or DVT. EKG obtained on arrival showed a sinus rhythm with a ventricular rate of [address] changes. CBC with differential showed a white count of 10.3 with hemoglobin 11.7 and platelet count of 220. Troponin was normal at 9. Chemistries unremarkable. D-dimer was normal less than 0.27. Chest x-ray showed no acute process without evidence of free air under the diaphragms. Patient also not having belly pain therefore suspicion for bowel perforation related to colonoscopy is very low. Patient was given a GI cocktail which did give her significant relief of her symptoms. She is feeling anxious and requested that I give her a milligram of Ativan which I did give her. We will await delta troponin and if normal I feel she can be safely discharged to home. Care of patient turned over to evening physician awaiting delta troponin. Lab Data Labs: Laboratory Results - last 24 hr 05/02/23 05/02/23 05/02/23 12:45 14:30 15:20 WBC 10.3 RBC 3.91 L Hgb 11.7 L Hct 36.9 L MCV 94.4 MCH 29.9 MCHC 31.7 L RDW Std Deviation 45.9 H RDW Coeff of Dylon 13.5 Plt Count 220 MPV 9.1 Immature Gran % (Auto) 0.500 Neut % (Auto) 67.0 Lymph % (Auto) 26.1 [place] % (Auto) 5.8 Eos % (Auto) 0.4 Baso % (Auto) 0.2 Absolute Neuts (auto) 6.9 Absolute Lymphs (auto) 2.69 Nucleated RBC % 0 D-Dimer Quant (PE/DVT) < 0.27 L Sodium 140 Potassium 3.5 Chloride 108 H Carbon Dioxide 24.0 Anion Gap 8 BUN 12 Creatinine 0.96 Estim Creat Clear Calc 70.72 Est GFR (MDRD) Af Amer 79 Est GFR (MDRD) Non-Af 65 BUN/Creatinine Ratio 12.5 Glucose 86 Calcium 9.4 Troponin I High Sens 9 Cancelled 05/02/23 15:42 WBC RBC Hgb Hct MCV MCH MCHC RDW Std Deviation RDW Coeff of Dylon Plt Count MPV Immature Gran % (Auto) Neut % (Auto) Lymph % (Auto) [place] % (Auto) Eos % (Auto) Baso % (Auto) Absolute Neuts (auto) Absolute Lymphs (auto) Nucleated RBC % D-Dimer Quant (PE/DVT) Sodium Potassium Chloride Carbon Dioxide Anion Gap BUN Creatinine Estim Creat Clear Calc Est GFR (MDRD) Af Amer Est GFR (MDRD) Non-Af BUN/Creatinine Ratio Glucose Calcium Troponin I High Sens 11 Radiography Diagnostic Testing: Clinical Impression(s) from Imaging Studies Chest X-Ray 05/02/23 14:08 IMPRESSION: No acute abnormality is seen. Electronically Signed: Ivan Durand MD at 15:09 EST , <Dr. Tomas Moreno, DO - Last Filed: 05/02/23 16:19> [facility] Lab Data Labs: Laboratory Results - last 24 hr 05/02/23 05/02/23 05/02/23 12:45 14:30 15:20 WBC 10.3 RBC 3.91 L Hgb 11.7 L Hct 36.9 L MCV 94.4 MCH 29.9 MCHC 31.7 L RDW Std Deviation 45.9 H RDW Coeff of Dylon 13.5 Plt Count 220 MPV 9.1 Immature Gran % (Auto) 0.500 Neut % (Auto) 67.0 Lymph % (Auto) 26.1 [place] % (Auto) 5.8 Eos % (Auto) 0.4 Baso % (Auto) 0.2 Absolute Neuts (auto) 6.9 Absolute Lymphs (auto) 2.69 Nucleated RBC % 0 D-Dimer Quant (PE/DVT) < 0.27 L Sodium 140 Potassium 3.5 Chloride 108 H Carbon Dioxide 24.0 Anion Gap 8 BUN 12 Creatinine 0.96 Estim Creat Clear Calc 70.72 Est GFR (MDRD) Af Amer 79 Est GFR (MDRD) Non-Af 65 BUN/Creatinine Ratio 12.5 Glucose 86 Calcium 9.4 Troponin I High Sens 9 Cancelled 05/02/23 15:42 WBC RBC Hgb Hct MCV MCH MCHC RDW Std Deviation RDW Coeff of Dylon Plt Count MPV Immature Gran % (Auto) Neut % (Auto) Lymph % (Auto) [place] % (Auto) Eos % (Auto) Baso % (Auto) Absolute Neuts (auto) Absolute Lymphs (auto) Nucleated RBC % D-Dimer Quant (PE/DVT) Sodium Potassium Chloride Carbon Dioxide Anion Gap BUN Creatinine Estim Creat Clear Calc Est GFR (MDRD) Af Amer Est GFR (MDRD) Non-Af BUN/Creatinine Ratio Glucose Calcium Troponin I High Sens 11 Radiography Diagnostic Testing: Clinical Impression(s) from Imaging Studies Chest X-Ray 05/02/23 14:08 IMPRESSION: No acute abnormality is seen. Electronically Signed: Ivan Durand MD at 15:09 EST , Treatment and Re-Evaluation :: Care of the patient was turned over to ms pending repeat troponin. 2-hour repeat troponin was reviewed and was normal at 11. Delta was only 2. Patient was advised of her findings. Patient was instructed to follow-up with her primary care physician in 5 to 7 days for reevaluation. Patient was instructed return if worse in any way. Patient understood and was agreeable with the plan. All questions were answered. Discharge Plan Triage Chief Complaint: Chest Pain ED Provider: Iram Diaz Dx/Rx/DC Orders Clinical Impression: Chest pain, Anxiety, H/O gastroesophageal reflux (GERD) Instructions: ED Anxiety Reaction, ED Chest Pain, Uncertain Cause, ED GERD (Adult) Prescriptions: No Action losartan [Cozaar] 25 mg tablet 25 mg PO DAILY hydroxyzine pamoate [Vistaril] 50 mg capsule 50 mg PO DAILY escitalopram oxalate [Lexapro] 10 mg Tablet 20 mg PO DAILY famotidine 20 mg tablet 20 mg PO Q12H buspirone 5 mg tablet 15 mg PO BID Patient Comments: take 1 tablet by mouth twice a day for anxiety levothyroxine 88 mcg tablet 88 mcg PO DAILY Patient Comments: take 1 tablet by mouth once daily lorazepam [Ativan] 1 mg tablet 1 mg PO TID PRN (Reason: anxiety) Qty: 10 0RF dicyclomine 10 mg capsule 10 mg PO TID Patient Comments: take 1 tablet by mouth BEFORE EVERY MEAL AND AT BEDTIME cyclobenzaprine 10 mg tablet 10 mg PO TID PRN (Reason: Muscle Spasm) Qty: 20 0RF Primary Care Provider: Milka Schneider Referrals: Milka Schneider MD [Primary Care Provider] - 3-5 Days Disposition Disposition: Home, Self Care
--- NOTE | 2023-05-02 14:08 | RAD_ITS ---
STUDY: X-RAY CHEST REASON FOR EXAM: Female, 52 years old. Chest pain TECHNIQUE: Single AP portable view of the chest. COMPARISON: Comparison is made with prior study dated October 27, 2022. FINDINGS: EKG electrodes are seen. Hyperinflation. Scattered calcified granulomas. There is no demonstrated pleural abnormality. Normal size heart. Normal mediastinum and sweta. Normal visualized pulmonary arteries. Normal visualized aortic arch and descending thoracic aorta. Normal visualized thoracic spine. Normal visualized ribs, clavicles, and shoulders. There is no demonstrated abnormality of the visualized soft tissue structures of the upper abdomen. RAD/Chest 1 View (Portable) IMPRESSION: No acute abnormality is seen. Electronically Signed: Ivan Durand MD at 15:09 EST ,
[2023-05-02] MEDS: Mag Hydrox/Al Hydrox/Simeth 30 ML UDC PO (14:20)
[2023-05-02 14:41] LABS: Absolute Lymphocyte Count 2.69 X10^3/uL (0.83-4.51); Absolute Neutrophil Count 6.9 X10^3/uL (2.0-7.7); Basophil# 0.02 X10^3/uL; Basophil% 0.2 % (0-1); Eosinophil# 0.04 X10^3/uL; Eosinophils% 0.4 % (0-5); Hematocrit 36.9 % (37-47); Hemoglobin 11.7 g/dL (12.0-15.0); Lymphocyte # 2.69 X10^3/ul (0.83-4.51); Lymphocyte % 26.1 % (19-41); Mean Corp Hgb Conc 31.7 g/dL (32-36); Mean Corpuscular Hgb 29.9 pg (27.0-32.0); Mean Corpuscular Volume 94.4 fL (81-99); Mean Platelet Vol. 9.1 fl (6.2-12.0); Monocyte% 5.8 % (0-10); NRBC Flagged by Analyzer 0 % (0-5); Neutrophil # 6.89 X10^3/uL (2.7-7.7); Platelet Count 220 K/mm3 (150-450); RBC Distribution Width CV 13.5 % (11.6-14.6); RBC Distribution Width SD 45.9 fl (35.1-43.9); Red Blood Count 3.91 M/mm3 (4.2-5.4); White Blood Count 10.3 K/mm3 (4.4-11.0)
[2023-05-02 14:50] LABS: Reflex Troponin-HS? (from REC) Y
[2023-05-02 15:30] LABS: D-Dimer Quantitative (DVT/PE) < 0.27 FEU/ug/m (0.27-0.49)
[2023-05-02 16:10] LABS: Troponin-I HS 11 pg/mL (3.0-54.0)
== END 2023-05-02 16:30 | disposition home or self-care (01) ==
PROVIDERS: Emergency Provider Emergency Medicine; PCP Family Medicine; Visit Provider Emergency Medicine
DX: R07.9 Chest pain, unspecified (principal); R42 Dizziness and giddiness; F41.9 Anxiety disorder, unspecified; Z87.891 Personal history of nicotine dependence; K21.9 Gastro-esophageal reflux disease without esophagitis; I10 Essential (primary) hypertension; Z79.899 Other long term (current) drug therapy
CPT/HCPCS: 36415; 71045; 80048; 84484; 85025; 85379; 93005; 99283; A4216

== ENCOUNTER → 2023-06-26 | Outpatient (CLI) | payer MEDICAID, SELFPAY ==
--- OUTSIDE RECORDS SUMMARY | 2023-06-26 15:41 | XMS RPT_ITS | CCD ---
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 Operator Name Role Phone IMCA Unavailable Unavailable IMLKA SCHNEIDER Primary Care Physician [phone] MILKA SCHNEIDER Consulting Unavailable MILKA SCHNEIDER Referring Unavailable TIM, DR NEMO Colin Admitting Unavaila ble TIM, DR NEMO Colin Primary Care Unavaila ble TIM, DR NEMO Colin Attending Unavaila ble PROVIDER, UNKNOWN Consulting Unavailable PROVIDER, UNKNOWN Consulting Unavailable Mitch, Bear Chi Primary Care Provider [phone] Eric Whitfield MD Unavailable Eric Whitfield MD Unavailable [phone] Milka Schneider MD Primary Care Provider MILKA SCHNEIDER Primary Care Unavailable MILKA SCHNEIDER Primary Care Unavailable MITCH, BEAR CHI Primary Care Unavailable MITCH, BEAR CHI Primary Care Unavailable REICHEVELYN REAL DO Attending Unavailable [facility], [place] Primary Care Unavailable [facility] EVELYN MACIAS Attending Unavailable [facility] [place] Primary Care Unavailable PATEL VALENZUELA FACP, CRISTAL Hernandez Consulting Unavail able GERSON REYNA MD Attending Unavailable [facility] [place] Primary Care Unavailable NYLA GREER MD Attending Unavailable [facility] [place] Primary Care Unavailable AMAURI MACIAS, DR LUBA Trujillo Attending Unavailable [facility] Primary Care Unavailable KARMA GE DO Attending Unavailable [facility] Primary Care Unavailable ODALYS VALENZUELA, DR NASH Attending Unavailrafael e [facility] Primary Care Unavailable LEONOR MAGANA MD Attending Unavailable [facility] Primary [facility] Unavailable NYLA GREER MD Attending Unavailable [facility] Primary Care Unavailable EVELYN SOLIS DO Attending Unavailable [facility] Primary [facility] Unavailable Allergies Allergy Classification Reported Allergen(s) Allergy Type Date of Onset Reaction(s) Facility (7 sources) Dust; Translations: [DUST] Propensity to adverse reactions (disorder) 0 Itching [facility] Repository (20 sources) SUMAtriptan; Translations: [SUMATRIPTAN] Drug Allergy 0 Other: See Comments, Other [facility] Repository (12 sources) Azithromycin; Translations: [azithromycin] Drug Allergy 1 Diarrhea [facility] (2 sources) cow milk allergenic extract; Translations: [MILK] Drug Allergy 9 Swelling [facility] (2 sources) Cow milk Propensity to adverse reactions to drug 9 Swelling [facility] Work Phone: Medications Current Medications Medication Drug Class(es) Dates Sig (Normalized) Sig (Original) Acetaminophen / Codeine (4 sources) Opioid Agonist Start: 11-11-2022 Tylenol with Codeine liquid use acetaminophen-cod eine liquid See Instructions, 10 cc Oral q6hr, # 120 mL, 0 Refill(s), Pain in epigastric region on palpation, 70.5 Start Date: 11/11/22 Status: Ordered amoxicillin 875 mg oral tablet (1 source) Penicillin-class Antibacterial Start: 10-30-2022 End: 11-04-2022 take 1 tablet by mouth twice daily amoxicillin (AMOXIL) 875 mg tablet Indications: Acute non-recurrent sinusitis, unspecified location Take 1 tablet by mouth twice daily for 5 days. 10 tablet 0 10/30/2022 11/04/2022 Active Completed/Discontinued Medications Medication Drug Class(es) Dates Sig (Normalized) Sig (Original) acetaminophen 325 mg / oxyCODONE hydrochloride 5 mg oral tablet (2 sources) Opioid Agonist Start: 10-24-2022 oxyCODONE-acetamin ophen (PERCOCET) 5-325 mg tablet take 1 tablet by mouth twice a day if needed for pain SCORE OF 7-10 FOR 7 DAYS 0 10/24/2022 Active Problems Active Problems Problem Classification Problem Date Documented Da te Episodic/Chronic Anxiety disorders (20 sources) Anxiety disorder; Translations: [Anxiety disorder, unspecified] Onset: 0 Chronic Cardiac dysrhythmias (13 sources) Palpitations; Translations: [Palpitations] Onset: 2 Episodic Disorders of teeth and jaw (1 source) Disorder of teeth AND/OR supporting structures; Translations: [Other specified disorders of teeth and supporting structures] Onset: 3 Episodic Esophageal disorders (5 sources) Gastroesophageal reflux disease; Translations: [Gastro-esophageal reflux disease without esophagitis] Onset: 5 04-05-2015 Chronic Essential hypertension (2 sources) Hypertensive disorder; Translations: [Essential (primary) hypertension] Onset: 0 07-03-2019 Chronic Headache; including migraine (12 sources) Migraine 09-30-2013 Chronic Headache; including migraine (1 source) Headache; Translations: [Headache, unspecified] Onset: 3 Episodic Mood disorders (2 sources) Depressive disorder; Translations: [Depression] Onset: 0 07-03-2019 Chronic Other female genital disorders (3 sources) Deep pain on intercourse; Translations: [Deep dyspareunia] Onset: 7 05-09-2017 Chronic Other gastrointestinal disorders (12 sources) Heartburn 10-26-2014 Episodic Other nervous system disorders (3 sources) Ilioinguinal nerve neuralgia; 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] Onset: 7 05-09-2017 Chronic Other nervous system disorders (12 sources) H/O: vertigo 06-08-2014 Episodic Other nervous system disorders (2 sources) Tremor; Translations: [Tremor, unspecified] Onset: 3 Episodic Other nutritional; endocrine; and metabolic disorders (3 sources) Body mass index 30+ - obesity; Translations: [Obesity, unspecified] Onset: 6 10-28-2015 Chronic Other upper respiratory disease (3 sources) Seasonal allergy; Translations: [Other seasonal allergic rhinitis] Onset: 5 04-05-2015 Chronic Other upper respiratory disease (2 sources) Seasonal allergic rhinitis; Translations: [Other seasonal allergic rhinitis] Onset: 5 03-23-2016 Chronic Other upper respiratory infections (1 source) Acute sinusitis; Translations: [Acute sinusitis, unspecified] Episodic Skin and subcutaneous tissue infections (1 source) Infection of skin; Translations: [Local infection of the skin and subcutaneous tissue, unspecified] Episodic Thyroid disorders (1 source) Thyrotoxicosis, unspecified without thyrotoxic crisis or storm; Translations: [Thyrotoxicosis, unspecified without thyrotoxic crisis or storm] Onset: 2 Chronic Urinary tract infections (12 sources) Urinary tract infectious disease 09-30-2013 Episodic Past or Other Problems Problem Classification Problem Date Documented Da te Episodic/Chronic Abdominal pain (5 sources) Upper abdominal pain; Translations: [Upper abdominal pain, unspecified] Onset: 10-25-2011 Episodic Other connective tissue disease (3 sources) Myalgia, unspecified site; Translations: [Myalgia and myositis, unspecified] Onset: 05-09-2017 05-09-2017 Episodic Other female genital disorders (3 sources) Pelvic floor dysfunction; Translations: [Other specified conditions associated with female genital organs and menstrual cycle] Onset: 05-09-2017 05-09-2017 Episodic Ovarian cyst (2 sources) Cyst of left ovary; Translations: [Unspecified ovarian cyst, left side] Onset: 08-03-2016 08-03-2016 Episodic Results Test Name Value Interpretation Reference Range Facil ity Vital Signs Date Time Vital Sign Value Performing Clinician Facility 06-22-2023 08:49-[address] LUBA BAUGH DO [facility] 06-22-2023 08:49-[address] LUBA BAUGH DO [facility] 06-22-2023 08:49-0500 Diastolic Blood Pressure Non-Invasive 100 mm[Hg] DR LUBA BAUGH DO [facility] 06-22-2023 08:49-0500 Heart rate 78 /min DR LUBA BAUGH DO [facility] 06-22-2023 08:49-0500 Respiratory rate 18 /min DR LUBA BAUGH DO [facility] 06-22-2023 08:49-0500 Systolic Blood Pressure Non-Invasive 173 mm[Hg] DR LUBA BAUGH DO [facility] 06-22-2023 08:05-[address] LUBA BAUGH DO [facility] 06-22-2023 08:05-[address] LUBA BAUGH DO [facility] 06-22-2023 08:05-0500 Body temperature 97.7 [degF] DR LUBA BAUGH DO [facility] 06-22-2023 08:05-0500 Body weight 83.[address] LUBA BAUGH DO [facility] 06-22-2023 08:05-0500 Diastolic Blood Pressure Non-Invasive 101 mm[Hg] DR LUBA BAUGH DO [facility] 06-22-2023 08:05-0500 Heart rate 84 /min DR LUBA BAUGH DO [facility] 06-22-2023 08:05-0500 Respiratory rate 18 /min DR LUBA BAUGH DO [facility] 06-22-2023 08:05-0500 Systolic Blood Pressure Non-Invasive 182 mm[Hg] DR LUBA BAUGH DO [facility] 04-07-2023 04:15-0400 Heart rate 81 /min KARMA CHOROLDAN DO [facility] 04-07-2023 02:58-0400 Body height 172.7 cm NIDAL CHOUJAA DO [facility] 04-07-2023 02:58-0400 Body temperature 98.24 [degF] NIDAL CHOUJAA DO [facility] 04-07-2023 02:58-0400 Body weight 72.7 kg NIDAL CHOUJAA DO [facility] 04-07-2023 02:58-0400 Diastolic Blood Pressure Non-Invasive 93 1 NIDAL CHOUJAA DO [facility] 04-07-2023 02:58-0400 Heart rate 104 /min NIDAL CHOUJAA DO [facility] 04-07-2023 02:58-0400 Respiratory rate 20 /min NIDAL CHOUJAA DO [facility] 04-07-2023 02:58-0400 Systolic Blood Pressure Non-Invasive 149 1 NIDAL CHOUJAA DO [facility] 03-20-2023 07:36-0400 Diastolic Blood Pressure Non-Invasive 61 1 ALBIN LAMBERT MD [facility] 03-20-2023 07:36-0400 Heart rate 83 /min ALBIN LAMBERT MD [facility] 03-20-2023 07:36-0400 Reason For Taking VItal Signs ALBIN LAMBERT MD [facility] 03-20-2023 07:36-0400 Respiratory rate 16 /min ALBIN LAMBERT MD [facility] 03-20-2023 07:36-0400 Systolic Blood Pressure Non-Invasive 107 1 ALBIN LAMBERT MD [facility] 03-20-2023 06:18-0400 Body height 172.7 cm ALBIN LAMBERT MD [facility] 03-20-2023 06:18-0400 Body temperature 98.24 [degF] ALBIN LAMBERT MD [facility] 03-20-2023 06:18-0400 Body weight 72.7 kg ALBIN LAMBERT MD [facility] 03-20-2023 06:18-0400 Diastolic Blood Pressure Non-Invasive 85 1 ALBIN LAMBERT MD [facility] 03-20-2023 06:18-0400 Heart rate 97 /min ALBIN LAMBERT MD [facility] 03-20-2023 06:18-0400 Respiratory rate 20 /min ALBIN LAMBERT MD [facility] 03-20-2023 06:18-0400 Systolic Blood Pressure Non-Invasive 116 1 ALBIN LAMBERT MD [facility] 11-11-2022 09:24-0400 Blood Pressure Location NYLA GREER MD [facility] 11-11-2022 09:24-0400 Body temperature 97.88 [degF] NYLA GREER MD [facility] 11-11-2022 09:24-0400 Diastolic Blood Pressure Non-Invasive 92 1 NYLA GREER MD [facility] 11-11-2022 09:24-0400 Respiratory rate 20 /min NYLA GREER MD [facility] 11-11-2022 09:24-0400 Systolic Blood Pressure Non-Invasive 168 1 NYLA GREER MD [facility] 10-30-2022 11:15-0400 Body temperature 96.91 [degF] Anthony Johnson MD Work Phone: [facility] 10-30-2022 11:15-0400 Body weight 72.12 kg Anthony Johnson MD Work Phone: [facility] 10-30-2022 11:15-0400 Diastolic blood pressure 74 mm[Hg] Anthony Johnson MD Work Phone: [facility] 10-30-2022 11:15-0400 Heart rate 73 /min Anthony Johnson MD Work Phone: [facility] 10-30-2022 11:15-0400 Respiratory rate 21 /min Anthony Johnson MD Work Phone: [facility] 10-30-2022 11:15-0400 SaO2% (BldA) [Mass fraction] 99 % Anthony Johnson MD Work Phone: [facility] 10-30-2022 11:15-0400 Systolic blood pressure 118 mm[Hg] Anthony Johnson MD Work Phone: [facility] 09-22-2022 17:53-0400 Body temperature 98.78 [degF] EVELYN SOLIS DO [facility] 09-22-2022 17:53-0400 Body weight 74 kg EVELYN SOLIS DO [facility] 09-22-2022 17:53-0400 Diastolic Blood Pressure Non-Invasive 84 1 EVELYN SOLIS DO [facility] 09-22-2022 17:53-0400 Heart rate 85 /min EVELYN SOLIS DO [facility] 09-22-2022 17:53-0400 Respiratory rate 18 /min [facility] 09-22-2022 17:53-0400 Systolic Blood Pressure Non-Invasive 153 1 [facility] 08-15-2022 14:46-0500 Diastolic Blood Pressure Non-Invasive 99 1 GERSON REYNA MD [facility] 08-15-2022 14:46-0500 Heart rate 74 /min GERSON REYNA MD [facility] 08-15-2022 14:46-0500 Respiratory rate 16 /min GERSON REYNA MD [facility] 08-15-2022 14:46-0500 Systolic Blood Pressure Non-Invasive 163 1 GERSON REYNA MD [facility] 08-15-2022 13:53-0500 Body temperature 98.06 [degF] GERSON REYNA MD [facility] 08-15-2022 13:53-0500 Diastolic Blood Pressure Non-Invasive 108 1 GERSON REYNA MD [facility] 08-15-2022 13:53-0500 Heart rate 81 /min GERSON REYNA MD [facility] 08-15-2022 13:53-0500 Respiratory rate 18 /min GERSON REYNA MD [facility] 08-15-2022 13:53-0500 Systolic Blood Pressure Non-Invasive 201 1 GERSON REYNA MD [facility] 06-20-2022 11:39-0500 Diastolic Blood Pressure Non-Invasive 76 1 NYLA GREER MD [facility] 06-20-2022 11:39-0500 Heart rate 73 /min NYLA GREER MD [facility] 06-20-2022 11:39-0500 Respiratory rate 16 /min NYLA GREER MD [facility] 06-20-2022 11:39-0500 Systolic Blood Pressure Non-Invasive 124 1 NYLA GREER MD [facility] 06-20-2022 10:30-0500 Diastolic Blood Pressure Non-Invasive 80 1 NYLA GREER MD [facility] 06-20-2022 10:30-0500 Heart rate 60 /min NYLA GREER MD [facility] 06-20-2022 10:30-0500 Respiratory rate 16 /min NYLA GREER MD [facility] 06-20-2022 10:30-0500 Systolic Blood Pressure Non-Invasive 141 1 NYLA GREER MD [facility] 06-20-2022 09:14-0500 Diastolic Blood Pressure Non-Invasive 80 1 NYLA GREER MD [facility] 06-20-2022 09:14-0500 Heart rate 64 /min NYLA GREER MD [facility] 06-20-2022 09:14-0500 Respiratory rate 16 /min NYLA GREER MD [facility] 06-20-2022 09:14-0500 Systolic Blood Pressure Non-Invasive 147 1 NYLA GREER MD [facility] 06-20-2022 08:38-0500 Body height 172.7 cm NYLA GREER MD [facility] 06-20-2022 08:38-0500 Body weight 75.5 kg NYLA GREER MD [facility] 05-27-2022 10:19-0500 Body temperature 97.9 [degF] Karen Praisler-Wood DAYTIME BABYSITTER[employer]TER Work Phone: [facility] 05-27-2022 10:19-0500 Body weight 76.02 kg Karen Praisler-Wood DAYTIME BABYSITTER[employer] Work Phone: [facility] 05-27-2022 10:19-0500 Diastolic blood pressure 82 mm[Hg] Karen Praisler-Wood DAYTIME BABYSITTER[employer]TER Work Phone: [facility] 05-27-2022 10:19-0500 Heart rate 89 /min Karen Praisler-Wood DAYTIME BABYSITTER[employer]TER Work Phone: [facility] 05-27-2022 10:19-0500 Respiratory rate 18 /min Karen Praisler-Wood DAYTIME BABYSITTER[employer]TER Work Phone: [facility] 05-27-2022 10:19-0500 SaO2% (BldA) [Mass fraction] 100 % Karen Praisler-Wood DAYTIME BABYSITTER[employer]TER Work Phone: [facility] 05-27-2022 10:19-0500 Systolic blood pressure 128 mm[Hg] Karen Praisler-Wood DAYTIME BABYSITTER[employer]TER Work Phone: [facility] 05-12-2022 07:14-0500 Body height 172.[address] LINSEY FRIEDMAN MD [facility] 05-12-2022 07:14-0500 Body temperature 98.24 [degF] DR LINSEY FRIEDMAN MD [facility] 05-12-2022 07:14-0500 Body weight 75.[address] LINSEY FRIEDMAN MD [facility] 05-12-2022 07:14-0500 Diastolic Blood Pressure Non-Invasive [address] LINSEY FRIEDMAN MD [facility] 05-12-2022 07:14-0500 Heart rate 82 /min DR LINSEY FRIEDMAN MD [facility] 05-12-2022 07:14-0500 Respiratory rate 18 /min DR LINSEY FRIEDMAN MD [facility] 05-12-2022 07:14-0500 Systolic Blood Pressure Non-Invasive [address] LINSEY FRIEDMAN MD [facility] 04-30-2022 05:51-0500 Body temperature 99.14 [degF] ALBIN LAMBERT MD [facility] 04-30-2022 05:51-0500 Diastolic Blood Pressure Non-Invasive 96 1 ALBIN LAMBERT MD [facility] 04-30-2022 05:51-0500 Heart rate 104 /min ALBIN LAMBERT MD [facility] 04-30-2022 05:51-0500 Respiratory rate 18 /min ALBIN LAMBERT MD [facility] 04-30-2022 05:51-0500 Systolic Blood Pressure Non-Invasive 172 1 ALBIN LAMBERT MD [facility] 04-20-2022 08:21-0400 Diastolic blood pressure 96 mm[Hg] NYLA GREER MD [facility] 04-20-2022 08:21-0400 Heart rate 99 /min NYLA GREER MD [facility] 04-20-2022 08:21-0400 Respiratory rate 20 /min NYLA GREER MD [facility] 04-20-2022 08:21-0400 Systolic blood pressure 160 mm[Hg] NYLA GREER MD [facility] 04-20-2022 06:16-0400 Body height 172.7 cm NYLA GREER MD [facility] 04-20-2022 06:16-0400 Body temperature 97.34 [degF] NYLA GREER MD [facility] 04-20-2022 06:16-0400 Body weight 68.2 kg NYLA GREER MD [facility] 04-20-2022 06:16-0400 Diastolic blood pressure 97 mm[Hg] NYLA GREER MD [facility] 04-20-2022 06:16-0400 Heart rate 100 /min NYLA GREER MD [facility] 04-20-2022 06:16-0400 Respiratory rate 20 /min NYLA GREER MD [facility] 04-20-2022 06:16-0400 Systolic blood pressure 170 mm[Hg] NYLA GREER MD [facility] 04-06-2022 16:06-0400 Diastolic blood pressure 69 mm[Hg] ALBIN LAMBERT MD [facility] 04-06-2022 16:06-0400 Heart rate 83 /min ALBIN LAMBERT MD [facility] 04-06-2022 16:06-0400 Reason For Taking VItal Signs ALBIN LAMBERT MD [facility] 04-06-2022 16:06-0400 Respiratory rate 14 /min ALBIN LAMBERT MD [facility] 04-06-2022 16:06-0400 Systolic blood pressure 125 mm[Hg] ALBIN LAMBERT MD [facility] 04-06-2022 14:41-0400 Body temperature 98.06 [degF] ALBIN LAMBERT MD [facility] 04-06-2022 14:41-0400 Diastolic blood pressure 98 mm[Hg] ALBIN LAMBERT MD [facility] 04-06-2022 14:41-0400 Heart rate 108 /min ALBIN LAMBERT MD [facility] 04-06-2022 14:41-0400 Respiratory rate 22 /min ALBIN LAMBERT MD [facility] 04-06-2022 14:41-0400 Systolic blood pressure 187 mm[Hg] ALBIN LAMBERT MD [facility] 03-29-2022 05:00-0400 Diastolic blood pressure 85 mm[Hg] CRISTAL BOWEN DO [facility] 03-29-2022 05:00-0400 Heart rate 95 /min CRISTAL BOWEN DO [facility] 03-29-2022 05:00-0400 Respiratory rate 18 /min CRISTAL BOWEN DO [facility] 03-29-2022 05:00-0400 Systolic blood pressure 148 mm[Hg] CRISTAL DURESKA DO [facility] 03-29-2022 03:47-0400 Body height 172.7 cm CRISTAL DURESKA DO [facility] 03-29-2022 03:47-0400 Body temperature 97.88 [degF] CRISTAL DURESKA DO [facility] 03-29-2022 03:47-0400 Body weight 70.5 kg CRISTAL DURESKA DO [facility] 03-29-2022 03:47-0400 Diastolic blood pressure 93 mm[Hg] CRISTAL DURESKA DO [facility] 03-29-2022 03:47-0400 Heart rate 111 /min CRISTAL DURESKA DO [facility] 03-29-2022 03:47-0400 Respiratory rate 20 /min CRISTAL DURESKA DO [facility] 03-29-2022 03:47-0400 Systolic blood pressure 162 mm[Hg] CRISTAL DURESKA DO [facility] Encounters Encounter Date Encounter Type Care Provider Facility Start: 06-22-2023 End: 06-22-2023 Emergency department patient visit DR LUBA BAUGH DO Facility:B Start: 06-22-2023 End: 06-22-2023 Emergency department patient visit DR LUBA BAUGH DO [facility] Start: 04-07-2023 End: 04-07-2023 Emergency department patient visit KARMA GE DO Facility:[facility] Start: 04-07-2023 End: 04-07-2023 Emergency department patient visit NIDCAROLYNE GE DO [facility] Start: 03-20-2023 End: 03-20-2023 Emergency department patient visit DR CHARITY MORROW MD Facility:[facility] Start: 03-20-2023 End: 03-20-2023 Emergency department patient visit ALBIN LAMBERT MD [facility] Start: 12-11-2022 End: 12-11-2022 Emergency department patient visit LEONOR MAGANA MD Facility:[facility] Start: 12-03-2022 End: 12-03-2022 ambulatory MILKA SCHNEIDER Facility:[facility] Procedures Date Procedure Procedure Detail Performing Clinician Start: 05-15-2022 Urinalysis MILKA COX Plan of Treatment Date Care Activity Detail Author Start: 12-16-2025 Tetanus vaccination Tetanus (T d or Tdap) Booster [facility] Start: 02-25-2023 Urine microalbumin profile DTA P,TDAP,TD (2 - Td or Tdap) [facility] Start: 02-16-2023 Influenza vaccination INFLUENZA (Sea son Ended) [facility] Start: 2022 [facility] of occul t blood [facility] Start: 2022 Screening for malign ant neoplasm of [facility] Start: 2022 Shingles (RZV) Vacci ne (1 of 2) Shingles (RZV) Vaccine (1 of 2) [facility] Start: 2022 SHINGRIX VACCINE (1 of 2) SHINGRIX V ACCINE (1 of 2) [facility] Start: 06-18-2022 [facility] Start: 03-18-2022 Influenza vaccination Influ[facility] Vacc ine [facility] Start: 02-16-2022 Influenza vaccination INFLUENZA (#1) [facility] Start: 06-18-2021 DE[facility]MENT [facility] Start: 09-15-2018 DIABETES SCREEN DIABETES SCREEN [facility] Start: 2018 LIPID SCREEN LIPID SCREEN [facility] Start: 02-13-2018 HPV TESTING HPV TESTING [facility] Start: 02-13-2018 PAP TESTING PAP TESTING [facility] Start: 08-03-2017 Basic metabolic 2000 panel - Serum or Plasma Basic Metabolic Panel [facility] Start: 2017 Cholesterol [Mass/vo lume] in Serum or Plasma Cholesterol [facility] Start: 2017 COLOGUARD (FIT-DNA) COLOGUARD (FIT-D NA) [facility] Start: 2017 Colonoscopy COLONOSCOPY [facility] Start: 2017 COLORECTAL CANCER SCREENING COLORECTAL CANCER SCREENING [facility] Start: [address] COLONOGRAPHY [facility] Start: 2017 FECAL OCCULT BLOOD FECAL OCCULT BLOO D [facility] Start: 2017 Screening for malign ant neoplasm of colon [facility] Start: [address] [facility] Start: 09-23-2016 Mammography MAMMOGRAM [facility] Start: 2012 Screening for malign ant neoplasm of breast Mammography [facility] Start: 1993 Screening for malign ant neoplasm of cervix Pap Smear [facility] Start: 1990 HEPATITIS C SCREENING HEPATITIS C SC REENING [facility] [facility] Start: 1990 HIV SCREENING HIV SCREENING [facility] Start: 1987 HIV screening HIV Test [facility] Start: 1972 COVID-19 VACCINE (#1) COVID-19 VACCI NE (#1) [facility] Start: 1972 HEPATITIS B (1 of 3 - 3-dose series) HEPATITIS B (1 of 3 - 3-dose series) [facility] Start: 1972 Screening for malign ant neoplasm of colon Colonoscopy [facility] Immunizations Immunization Date Immunization Notes Care Provider Fa cili 02-19-2020 influenza, injectabl e, quadrivalent, contains preservative Eric Whitfield MD Work Phone: [facility] 02-19-2020 influenza virus vacc ine, unspecified formulation Eric Whitfield MD Work Phone: [facility] 03-03-2019 influenza, seasonal, injectable, preservative free Eric Whitfield MD Work Phone: [facility] 02-27-2018 influenza, seasonal, injectable Eric Whitfield MD Work Phone: [facility] 03-06-2016 influenza virus vacc ine, unspecified formulation Eric Whitfield MD Work Phone: [facility] 12-17-2015 tetanus toxoid, redu guido diphtheria toxoid, and acellular pertussis vaccine, adsorbed Eric Whitfield MD Work Phone: [facility] 04-29-2015 influenza, injectabl e, quadrivalent, contains preservative Karen Praisler-Wood [employer]TIME BABYSITTER[employer] Work Phone: [facility] 04-01-2014 influenza, seasonal, injectable Karen Praisler-Wood DAYTIME BABYSITTER[employer] Work Phone: [facility] 04-14-2013 influenza virus vacc ine, unspecified formulation Karen Praisler-Wood DAYTIME BABYSITTER.[employer]TER Work Phone: [facility] 02-25-2013 tetanus toxoid, redu guido diphtheria toxoid, and acellular pertussis vaccine, adsorbed Karen Praisler-Wood DAYTIME BABYSITTER.[employer]TER Work Phone: [facility] 03-18-2012 influenza virus vacc ine, unspecified formulation Karen Praisler-Wood DAYTIME BABYSITTER.[employer]ORTER Work Phone: [facility] Payers Date Payer Category Payer Medicaid PENDING 2022 Unknown [id number] 2017 Medicaid [id number] 2015 Medicaid [id number] 1972 Unknown [id number] 2.16.84 [id number] 1972 Unknown [id number] 2.16.8 [id number] 1972 Unknown [id number] 2.16.8 [id number] 1972 Unknown [id number] 2.16.8 [id number] 1972 Unknown [id number] 2.16.8 [id number] 1972 Unknown [id number] 2.16.8 [id number] 1972 Unknown [id number] 2.16.8 [id number] 1972 Unknown [id number] 2.16.8 [id number] 1972 Unknown [id number] 2.16.8 [id number] 1972 Unknown [id number] 2.16.8 [id number] 1972 Unknown [id number] 2.16.8 [id number] Social History Date Type Detail Facility Start: 05-26-2019 Tobacco smoking status Never s moked tobacco (finding) [facility] Sex Assigned At Sex [facility] Start: 05-27-2022 [facility] End: 09-16-2012 History of tobacco use Current smoker [facility] End: 09-16-2012 History of tobacco use Cigarette Smoker [facility] Start: 07-03-2019 End: 05-27-2022 Cigarettes smoked current (pack per day) - Reported 0.5 [facility] Start: 05-27-2022 Tobacco use and exposure Smoke less tobacco non-user [facility] Start: 05-27-2022 End: 12-03-2022 Alcohol intake Current non-drinker of alcohol (finding) [facility] Start: 1970 Sex Assigned At Not on file [facility] Start: 07-03-2019 Alcohol intake Not [facility] Functional Status Date Assessment Result Facility 06-22-2023 Functional Status ID band on, Allergy Band on, Call device within reach, Bed in low position, Wheels locked, Upper/Half-Length side-rails up, Safety level maintained [facility] 04-07-2023 Functional Status Assistive Device None [facility] 04-07-2023 Functional Status Standard Safet y ID band on, Safety level maintained [facility] 03-20-2023 Functional Status Independent [facility] 03-20-2023 Functional Status Repositions self [facility] 11-11-2022 Functional Status ID band on, Allergy Band on [facility] 09-22-2022 Functional Status Standard Safet y ID band on, Allergy Band on, Call device within reach, Bed in low position, Wheels locked, Upper/Half-Length side-rails up, Bedside Cart Locked, Safety level maintained [facility] 08-15-2022 Functional Status ID band on, Allergy Band on, Call device within reach, Bed in low position, Wheels locked, Visitor at bedside [facility] 06-20-2022 Functional Status Independent [facility] 06-20-2022 Functional Status Bathroom privileges [facility] 05-12-2022 Functional Status Independent [facility] 05-12-2022 Functional Status Resting [facility] 04-30-2022 Functional Status ID band on, Allergy Band on, Call device within reach, Bed in low position, Wheels locked, Upper/Half-Length side-rails up, Phone within reach, personal items within reach, Visitor at bedside, Safety level maintained [facility] 04-20-2022 Functional Status Activity Statu s ADL Lights dimmed, Warm blankets [facility] 04-20-2022 Functional Status ID band on, Call device within reach, Bed in low position, Wheels locked, Visitor at bedside [facility] 04-06-2022 Functional Status Activity [place] [employer] Independent [facility] 04-06-2022 Functional Status Standard Safet y ID band on, Call device within reach, Bed in low position, Wheels locked, Upper/Half-Length side-rails up, Bedside Cart Locked, Safety level maintained [facility] 03-29-2022 Functional Status Ambulating in ceballos, Ambulating in room, Awake [facility] Mental Status Date Assessment Result Facility 06-22-2023 Mental Status Oriented x 4 [facility] 04-07-2023 Mental Status Oriented x 4 [facility] 04-07-2023 Mental Status [facility] 03-20-2023 Mental Status Oriented x 4 [facility] 03-20-2023 Mental Status [facility] 11-11-2022 Mental Status Oriented x 4 [facility] 09-22-2022 Mental Status Orientation Oriented x 4 [facility] 08-15-2022 Mental Status Oriented x 4 [facility] 06-20-2022 Mental Status Orientation Oriented x 4 [facility] 06-20-2022 Mental Status [facility] 05-12-2022 Mental Status Orientation Oriented x 4 [facility] 05-12-2022 Mental Status [facility] 04-30-2022 Mental Status Oriented x 4 [facility] 04-20-2022 Mental Status Orientation Oriented x 4 [facility] 04-06-2022 Mental Status Oriented x 4 [facility] 04-06-2022 Mental Status [facility] 03-29-2022 Mental Status Orientation Oriented x 4 [facility] 03-29-2022 Mental Status [facility] Clinical Notes 03-29-2022 to 06-22-2023 Telephone Encounter - Norma Connell RN - 12/03/2022 10:38 AM Naun Johnson MD - 10/30/2022 11:34 AM Ahmet Quiroga APRN.[facility] - 05/27/2022 10:45 AM ESTPatient Instructions Note Date & Type Note Facility 06-22-2023 Hospital Discharg e instructions Patient Education 06/22/2023 08:26:31 Chest Wall Pain, Costochondritis Chest Wall Pain: Costochondritis The chest pain that you have had today is caused by costochondritis. This condition is caused by an inflammation of the cartilage joining your ribs to your breastbone. It is not caused by heart or lung problems. Your healthcare team has made sure that the chest pain you feel is not from a life threatening cause of chest pain such as heart attack, collapsed lung, blood clot in the lung, tear in the aorta, or esophageal rupture. The inflammation may have been brought on by a blow to the chest, lifting heavy objects, intense exercise, or an illness that made you cough and sneeze a lot. It often occurs during times of emotional stress. It can be painful, but it is not dangerous. It usually goes away in 1 to 2 weeks. But it may happen again. Rarely, a more serious condition may cause symptoms similar to costochondritis. That s why it s important to watch for the warning signs listed below. Home care Follow these guidelines when caring for yourself at home: If you feel that emotional stress is a cause of your condition, try to figure out the sources of that stress. It may not be obvious. Learn ways to deal with the stress in your life. This can include regular exercise, muscle relaxation, meditation, or simply taking time out for yourself. You may use acetaminophen, ibuprofen, or naproxen to control pain, unless another pain medicine was prescribed. If you have liver or kidney disease or ever had a stomach ulcer, talk with your healthcare provider before using these medicines. You can also help ease pain by using a hot, wet compress or heating pad. Use this with or without a medicated skin cream that helps relieves pain. Do stretching exercise as advised by your provider. Take any prescribed medicines as directed. Follow-up care Follow up with your healthcare provider, or as advised, if you do not start to get better in the next 2 days. When to seek medical advice Call your healthcare provider right away if any of these occur: A change in the type of pain. Call if it feels different, becomes more serious, lasts longer, or spreads into your shoulder, arm, neck, jaw, or back. Shortness of breath or pain gets worse when you breathe Weakness, dizziness, or fainting Cough with dark-colored sputum (phlegm) or blood Abdominal pain Dark red or black stools Fever of 100.4 F (38 C) or higher, or as directed by your healthcare provider 1981-2371 [employer]. [address] [place] [address], [place] [address]. All rights reserved. This information is not intended as a substitute for professional medical care. Always follow your healthcare professional's instructions. Follow Up Care 06/22/2023 07:58:43 With:MILKA SCHNEIDER Address: [facility] DANIKA PATELPatricia [facility] [address]- [phone] When:2-4 days [facility] 06-22-2023 Note Discharge Instructions Thank you for allowing [facility] to assist you with your healthcare needs. The following is important discharge information regarding your hospital visit. Diagnosis from Today's Visit Left side pain What to Do Next Instructions from Your Care Team No qualifying data available. Post Acute Orders No qualifying data available. You Need to Schedule the Following Appointments Follow Up with MILKA SCHNEIDER When Within 2-4 days Where: [facility] DANIKA PATELPat[place] [address] [phone] Allergies Imitrex (tunnel vision) azithromycin Medications Please ask your primary doctor or pharmacist before taking any other medication not listed, including over the counter drugs, herbal medications, vitamins and or supplements as they may interact with your home medications. What How Much When Why Instructions Last Dose New lidocaine topical (Lidoderm 5% topical patch) 1 patch(es) Topical Every day Duration: 7 Days Printed Prescription Unchanged acetaminophen-codeine (Tylenol with Codeine liquid use acetaminophen-codeine liquid ) See instructions Pain in epigastric region on palpation 10 cc Oral q6hr Unchanged famotidine (Pepcid 20 mg oral tablet) 1 tab(s) by mouth Two (2) times a day Pain in epigastric region on palpation Unchanged levothyroxine (levothyroxine 50 mcg (0.05 mg) oral tablet) 1 tab(s) by mouth Once a day Anxiety Unchanged losartan by mouth Once a day Unchanged melatonin Daily at bedtime Unchanged omeprazole (PriLOSEC 10 mg oral powder for reconstitution, delayed release) 1 Each by mouth Once a day Unchanged zolpidem (zolpidem 10 mg oral tablet) 1 tab(s) by mouth Daily at bedtime Please take this list to your next doctor s visit. Bring all medications you take, including over the counter medications, herbals and other supplements with you to your doctor s visit. Patients and families are reminded to discard old lists and to update any records with all medication providers or retail pharmacies. Medication Leaflets lidocaine topical (LYE aviles lopez TOP i yosvany) AneCream, Bactine, Glydo, Lidoderm, LidoRx, Medi-Quik [place], RadiaGuard, RectiCare, Regenecare PAINTING [place], Solarcaine Cool Aloe What is the most important information I should know about lidocaine topical? An overdose of numbing medicine can cause fatal side effects if too much of the medicine is absorbed through your skin. Do not use large amounts of lidocaine topical, or cover treated skin areas with a bandage or plastic wrap without medical advice. Keep both used and unused lidocaine skin patches out of the reach of children or pets. The amount of lidocaine in the skin patches could be harmful to a child or pet who accidentally sucks on or swallows the patch. What is lidocaine topical? Lidocaine is a local anesthetic (numbing medication). There are many brands and forms of lidocaine available. Not all brands are listed on this leaflet. Lidocaine topical (for use on the skin) is used to reduce pain or discomfort caused by skin irritations such as sunburn, insect bites, poison mili, poison oak, poison sumac, and minor cuts, scratches, or james. Lidocaine topical is also used to treat rectal discomfort caused by hemorrhoids. Lidocaine intradermal device can be used in minor medical procedures such as venipuncture or peripheral intravenous cannulation. Lidocaine topical may also be used for purposes not listed in this medication guide. What should I discuss with my healthcare provider before using lidocaine topical? You should not use lidocaine topical if you are allergic to any type of numbing medicine. Fatal overdoses have occurred when numbing medicines were used without the advice of a medical doctor (such as during a cosmetic procedure like laser hair removal). However, overdose has also occurred in women treated with a numbing medicine before having a mammography. Be aware that many cosmetic procedures are performed without a medical doctor present. Tell your doctor if you have ever had: a blood cell disorder called methemoglobinemia (in you or a family member); liver disease; or if you take a heart rhythm medicine. Tell your doctor if you are or . If you apply lidocaine topical to your chest, avoid areas that may come into contact with the baby's mouth. How should I use lidocaine topical? Use this medicine exactly as directed on the label, or as it has been prescribed by your doctor. Do not apply this medicine in larger amounts than recommended. Improper use of lidocaine topical may result in . Lidocaine topical comes in many different forms (gel, spray, cream, lotion, ointment, liquid, skin patch, and others). Do not take by mouth. Topical medicine is for use only on the skin. If this medicine gets in your eyes, nose, mouth, rectum, or vagina, rinse with water. Read and carefully follow any Instructions for Use provided with your medicine. Ask your doctor or pharmacist if you do not understand these instructions. Use the smallest amount of medicine needed to numb the skin or relieve pain. Your body may absorb too much of this medicine if you use too much, if you apply it over large skin areas, or if you apply heat, bandages, or plastic wrap to treated skin areas. Skin that is cut or irritated may also absorb more topical medication than healthy skin. Do not apply this medicine to swollen skin areas or deep puncture wounds. Avoid using the medicine on skin that is raw or blistered, such as a severe burn or abrasion. Do not cover treated skin unless your doctor has told you to. Lidocaine topical may be applied with your finger tips or a cotton swab. Lidocaine intradermal device is applied by a healthcare provider. Store at room temperature away from moisture and heat. Keep both used and unused lidocaine topical skin patches out of the reach of children or pets. The amount of lidocaine in the skin patches could be harmful to a child or pet who accidentally sucks on or swallows the patch. Seek emergency medical attention if this happens. What happens if I miss a dose? Since lidocaine topical is used when needed, you may not be on a dosing schedule. Skip any missed dose if it's almost time for your next dose. Do not use two doses at one time. What happens if I overdose? Seek emergency medical attention or call the Poison Help line at . An overdose of numbing medicine can cause fatal side effects if too much of the medicine is absorbed through your skin and into your blood. Overdose symptoms may include uneven heartbeats, seizure (convulsions), slowed breathing, coma, or respiratory failure (breathing stops). Lidocaine applied to the skin is not likely to cause an overdose unless you apply more than the recommended dose. What should I avoid while using lidocaine topical? Avoid touching the sticky side of a lidocaine skin patch while applying it. Avoid accidentally injuring treated skin areas while they are numb. Avoid coming into contact with very hot or very cold surfaces. What are the possible side effects of lidocaine topical? Get emergency medical help if you have signs of an allergic reaction: hives; difficulty breathing; swelling of your face, lips, tongue, or throat. Call your doctor at once if you have: severe headache or vomiting; severe burning, stinging, or irritation where the medicine was applied; swelling or redness; sudden dizziness or drowsiness after medicine is applied; confusion, problems with speech or vision, ringing in your ears; or unusual sensations of temperature. Common side effects include: mild irritation where the medication is applied; or numbness in places where the medicine is accidentally applied. This is not a complete list of side effects and others may occur. Call your doctor for medical advice about side effects. You may report side effects to FDA at 3-584-KXI-5983. What other drugs will affect lidocaine topical? Medicine used on the skin is not likely to be affected by other drugs you use. But many drugs can interact with each other. Tell each of your health care providers about all medicines you use, including prescription and [id number] medicines, vitamins, and herbal products. Where can I get more information? Your pharmacist can provide more information about lidocaine topical. Remember, keep this and all other medicines out of the reach of children, never share your medicines with others, and use this medication only for the indication prescribed. Every effort has been made to ensure that the information provided by [employer] is accurate, up-to-date, and complete, but no guarantee is made to that effect. Drug information contained herein may be time sensitive. [employer] information has been compiled for use by healthcare practitioners and consumers in the [place] and therefore [employer] does not warrant that uses outside of the [place] are appropriate, unless specifically indicated otherwise. [employer]'s drug information does not endorse drugs, diagnose patients or recommend therapy. [employer]'s drug information is an informational resource designed to assist licensed healthcare practitioners in caring for their patients and/or to serve consumers viewing this service as a supplement to, and not a substitute for, the expertise, skill, knowledge and judgment of healthcare practitioners. The absence of a warning for a given drug or drug combination in no way should be construed to indicate that the drug or drug combination is safe, effective or appropriate for any given patient. [facility] does not assume any responsibility for any aspect of healthcare administered with the aid of information [facility] provides. The information contained herein is not intended to cover all possible uses, directions, precautions, warnings, drug interactions, allergic reactions, or adverse effects. If you have questions about the drugs you are taking, check with your doctor, nurse or pharmacist. Copyright 9202-[address] [facility] [place]. Version: 04.18. Revision Date: 03/07/2023. Education Materials Chest Wall Pain: Costochondritis The chest pain that you have had today is caused by costochondritis. This condition is caused by an inflammation of the cartilage joining your ribs to your breastbone. It is not caused by heart or lung problems. Your healthcare team has made sure that the chest pain you feel is not from a life threatening cause of chest pain such as heart attack, collapsed lung, blood clot in the lung, tear in the aorta, or esophageal rupture. The inflammation may have been brought on by a blow to the chest, lifting heavy objects, intense exercise, or an illness that made you cough and sneeze a lot. It often occurs during times of emotional stress. It can be painful, but it is not dangerous. It usually goes away in 1 to 2 weeks. But it may happen again. Rarely, a more serious condition may cause symptoms similar to costochondritis. That s why it s important to watch for the warning signs listed below. Home care Follow these guidelines when caring for yourself at home: If you feel that emotional stress is a cause of your condition, try to figure out the sources of that stress. It may not be obvious. Learn ways to deal with the stress in your life. This can include regular exercise, muscle relaxation, meditation, or simply taking time out for yourself. You may use acetaminophen, ibuprofen, or naproxen to control pain, unless another pain medicine was prescribed. If you have liver or kidney disease or ever had a stomach ulcer, talk with your healthcare provider before using these medicines. You can also help ease pain by using a hot, wet compress or heating pad. Use this with or without a medicated skin cream that helps relieves pain. Do stretching exercise as advised by your provider. Take any prescribed medicines as directed. Follow-up care Follow up with your healthcare provider, or as advised, if you do not start to get better in the next 2 days. When to seek medical advice Call your healthcare provider right away if any of these occur: A change in the type of pain. Call if it feels different, becomes more serious, lasts longer, or spreads into your shoulder, arm, neck, jaw, or back. Shortness of breath or pain gets worse when you breathe Weakness, dizziness, or fainting Cough with dark-colored sputum (phlegm) or blood Abdominal pain Dark red or black stools Fever of 100.4 F (38 C) or higher, or as directed by your healthcare provider 2351-6362 [employer]. [address] [place] [address]. All rights reserved. This information is not intended as a substitute for professional medical care. Always follow your healthcare professional's instructions. Additional Information VACCINATE! IT SAVES LIVES! Members of the community who have not yet received the COVID-19 vaccine and would like to receive it can visit one of [facility] vaccine clinics. There are many vaccine clinic locations within the [facility]. For locations and available times, please visit [email or web address] It is important to note that some COVID mobile vaccine clinics are held outdoors and may be canceled in rainy or stormy conditions. To learn more about pediatric vaccinations (ages 5-11), we invite you to visit the [facility] webpage. [email or web address] To learn more about the COVID-19 vaccine, we invite you to visit the CDC website for a list of frequently asked questions. https://www.cdc.gov/coronavirus/ 2019-ncov/vaccines/faq.html [facility] Patient Portal Access Instructions: Stay connected with your healthcare team and access your personal medical information anytime with the [employer] Patient Portal. If you would like a full copy of your medical records please contact the [facility] Medical Records Department Sunday through Sunday between 8a.m. and 4:30p.m. Please follow the directions below to access the portal: 1.Access the email account you provided upon registration to the [facility].2.Look for an invitation email from [facility].3.Open the email and access the invitation link: Accept Invitation to [employer]4.Fill in the required lugo to create your account. Sign into www.[employer] with your username and password that you created in the above steps to stay up to date. You can then view a summary of results, a summary of your visits, and the ability to download your summaries to your computer or send the information securely to a physician. Remember that your healthcare information is confidential, so carefully consider who you will allow to register on the [employer] Patient Portal for access to your information. You can also access the [employer] Patient Portal on the [employer]. Simply click on Health Records under Health Data and then click on the [employer] logo. HOW TO SAFELY DISPOSE OF PRESCRIPTION MEDICATIONS Please use one of the following methods to safely dispose of your unused medications. 1.Use a drug disposal kit: the drug disposal pouch allows you to safely discard your old and unused drugs. Ask your nurse to give you one when you are discharged.2.Visit a local take-back location: Many local pharmacies and police departments have programs that collect old and unwanted prescription drugs. Call your local pharmacy or go to http://Signdat.[employer]/8R3Vg7u to find one close to you.3.Make use of household items: Use cat litter or old coffee grounds to dispose medications if other options are not available. Mix your drugs with these household products, seal them in an airtight container and throw it into the garbage. Call [facility]: [phone] to be sure your drugs can be disposed of in this way. Some medicines may require a different approach.4.Never flush your medications down the toilet. IF YOU HAVE BEEN PRESCRIBED AN OPIOIDS FOR PAIN If you have been prescribed an opioid (such as hydrocodone, oxycodone or morphine), it is critical to understand the possible side effects and risks of opioid pain medications. Even when taken as directed, opioids can have several side effects including: Tolerance, meaning you might need to take more of a medication for the same pain relief. Nausea, vomiting and/or constipation. Sleepiness, dizziness, dry mouth, confusion, depression or itching. Physical dependence, meaning you have withdrawal symptoms when a medication is stopped ? this can develop within a few days. KNOW YOUR RESPONSIBILITIES It is important to know exactly how much and how often to take the opioid pain medications you are prescribed. Never take opioids in higher amounts or more often than prescribed. Do not combine opioids with alcohol or other drugs that cause drowsiness, such as benzodiazepines, also known as benzos, including diazepam and alprazolam, muscle relaxants or sleep aids. Never sell or share prescription opioids. This is illegal. Store opioids in a secure place and out of reach of others (including children, family, friends and visitors). The last page(s) of this document has been signed and retained as a CHART COPY Signatures Patient Education Materials Chest Wall Pain, Costochondritis Medication Leaflets lidocaine topical My discharge plan and instructions have been reviewed and explained to me and I,HELEN ROLAND understand my current condition and have read and understand these discharge instructions. I have received a written copy of the plan/instructions. If I have questions, I am aware that I should contact my doctor. 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: Relationship to Patient: Witness Name/Signature: Date/Time: [facility] 06-22-2023 Note Sinus rhythm Compared to ECG at 04/07/2023 03:24:37 Electronic Signature: LUBA BAUGH DO 06/22/2023 08:34:24 [facility] 04-07-2023 [facility] Discharg e instructions Patient Education 04/07/2023 04:07:54 Treating Anxiety Disorders with Therapy Treating Anxiety Disorders with Therapy If you have an anxiety disorder, you don t have to suffer anymore. Treatment is available. Therapy (also called counseling) is often a helpful treatment for anxiety disorders. With therapy, a specially trained professional (therapist) helps you face and learn to manage your anxiety. Therapy can be short-term or long-term depending on your needs. In some cases, medicine may also be prescribed with therapy. It may take time before you notice how much therapy is helping, but stick with it. With therapy, you can feel better. Cognitive behavioral therapy (CBT) Cognitive behavioral therapy (CBT) teaches you to manage anxiety. It does this by helping you understand how you think and act when you re anxious. Research has shown CBT to be a very effective treatment for anxiety disorders. How CBT is run is almost like a class. It involves homework and activities to build skills that teach you to cope with anxiety step by step. It can be done in a group or one-on-one, and often takes place for a set number of sessions. CBT has two main parts: Cognitive therapy helps you identify the negative, irrational thoughts that occur with your anxiety. You ll learn to replace these with more positive, realistic thoughts. Behavioral therapy helps you change how you react to anxiety. You ll learn coping skills and methods for relaxing to help you better deal with anxiety. Other forms of therapy Other therapy methods may work better for you than CBT. Or, you may move from CBT to another form of therapy as your treatment needs change. This may mean meeting with a therapist by yourself or in a group. Therapy can also help you work through problems in your life, such as drug or alcohol dependence, that may be making your anxiety worse. Getting better takes time Therapy will help you feel better and teach you skills to help manage anxiety residential. But change doesn t happen right away. It takes a commitment from you. And treatment only works if you learn to face the causes of your anxiety. So, you might feel worse before you feel better. This can sometimes make it hard to stick with it. But remember: Therapy is a very effective treatment. The results will be well worth it. Helping yourself If anxiety is wearing you down, here are some things you can do to cope: Check with your doctor and rule out any physical problems that may be causing the anxiety symptoms. If an anxiety disorder is diagnosed, seek mental healthcare. This is an illness and it can respond to treatment. Most types of anxiety disorders will respond to talk therapy and medicine. Educate yourself about anxiety disorders. Keep track of helpful online resources and books you can use during stressful periods. Try stress management techniques such as meditation. Consider online or in-person support groups. Don t fight your feelings. Anxiety feeds itself. The more you worry about it, the worse it gets. Instead, try to identify what might have triggered your anxiety. Then try to put this threat in perspective. Keep in mind that you can t control everything about a situation. Change what you can and let the rest take its course. Exercise it s a great way to relieve tension and help your body feel relaxed. Examine your life for stress, and try to find ways to reduce it. Avoid caffeine and nicotine, which can make anxiety symptoms worse. Fight the temptation to turn to alcohol or unprescribed drugs for relief. They only make things worse in the long run. 8534-[address] [employer]. [address] [place] [address]. All rights reserved. This information is not intended as a substitute for professional medical care. Always follow your healthcare professional's instructions. Follow Up Care 04/07/2023 02:54:44 With:MILKA SCHNEIDER Address: [address] [place] [phone] When:2-4 days [facility] 04-07-2023 Note Discharge Instructions Thank you for allowing [facility] to assist you with your healthcare needs. The following is important discharge information regarding your hospital visit. Diagnosis from Today's Visit Anxiety Anxiety Tremulousness What to Do Next Instructions from Your Care Team Be sure to follow-up with your primary care physician. If. Experiencing evidence of withdrawals do not hesitate to return. Discharge Return to Work, School, or Sports (Return to Work, School, or Sports) - Ordered -- 04/08/23, May return to: work, 04/07/23 4:08:00 EDT Post Acute Orders No qualifying data available. You Need to Schedule the Following Appointments Follow Up with MILKA SCHNEIDER When Within 2-4 days Where: [address] [place] [address] [phone] Allergies Imitrex (tunnel vision) azithromycin Medications Please ask your primary doctor or pharmacist before taking any other medication not listed, including over the counter drugs, herbal medications, vitamins and or supplements as they may interact with your home medications. What How Much When Why Instructions Last Dose Unchanged acetaminophen-codeine (Tylenol with Codeine liquid use acetaminophen-codeine liquid ) See instructions Pain in epigastric region on palpation 10 cc Oral q6hr Unchanged famotidine (Pepcid 20 mg oral tablet) 1 tab(s) by mouth Two (2) times a day Pain in epigastric region on palpation Unchanged levothyroxine (levothyroxine 50 mcg (0.05 mg) oral tablet) 1 tab(s) by mouth Once a day Anxiety Unchanged losartan by mouth Once a day Unchanged melatonin Daily at bedtime Unchanged omeprazole (PriLOSEC 10 mg oral powder for reconstitution, delayed release) 1 Each by mouth Once a day Unchanged zolpidem (zolpidem 10 mg oral tablet) 1 tab(s) by mouth Daily at bedtime Please take this list to your next doctor s visit. Bring all medications you take, including over the counter medications, herbals and other supplements with you to your doctor s visit. Patients and families are reminded to discard old lists and to update any records with all medication providers or retail pharmacies. Education Materials Treating Anxiety Disorders with Therapy If you have an anxiety disorder, you don t have to suffer anymore. Treatment is available. Therapy (also called counseling) is often a helpful treatment for anxiety disorders. With therapy, a specially trained professional (therapist) helps you face and learn to manage your anxiety. Therapy can be short-term or long-term depending on your needs. In some cases, medicine may also be prescribed with therapy. It may take time before you notice how much therapy is helping, but stick with it. With therapy, you can feel better. Cognitive behavioral therapy (CBT) Cognitive behavioral therapy (CBT) teaches you to manage anxiety. It does this by helping you understand how you think and act when you re anxious. Research has shown CBT to be a very effective treatment for anxiety disorders. How CBT is run is almost like a class. It involves homework and activities to build skills that teach you to cope with anxiety step by step. It can be done in a group or one-on-one, and often takes place for a set number of sessions. CBT has two main parts: Cognitive therapy helps you identify the negative, irrational thoughts that occur with your anxiety. You ll learn to replace these with more positive, realistic thoughts. Behavioral therapy helps you change how you react to anxiety. You ll learn coping skills and methods for relaxing to help you better deal with anxiety. Other forms of therapy Other therapy methods may work better for you than CBT. Or, you may move from CBT to another form of therapy as your treatment needs change. This may mean meeting with a therapist by yourself or in a group. Therapy can also help you work through problems in your life, such as drug or alcohol dependence, that may be making your anxiety worse. Getting better takes time Therapy will help you feel better and teach you skills to help manage anxiety manager terminal. But change doesn t happen right away. It takes a commitment from you. And treatment only works if you learn to face the causes of your anxiety. So, you might feel worse before you feel better. This can sometimes make it hard to stick with it. But remember: Therapy is a very effective treatment. The results will be well worth it. Helping yourself If anxiety is wearing you down, here are some things you can do to cope: Check with your doctor and rule out any physical problems that may be causing the anxiety symptoms. If an anxiety disorder is diagnosed, seek mental healthcare. This is an illness and it can respond to treatment. Most types of anxiety disorders will respond to talk therapy and medicine. Educate yourself about anxiety disorders. Keep track of helpful online resources and books you can use during stressful periods. Try stress management techniques such as meditation. Consider online or in-person support groups. Don t fight your feelings. Anxiety feeds itself. The more you worry about it, the worse it gets. Instead, try to identify what might have triggered your anxiety. Then try to put this threat in perspective. Keep in mind that you can t control everything about a situation. Change what you can and let the rest take its course. Exercise it s a great way to relieve tension and help your body feel relaxed. Examine your life for stress, and try to find ways to reduce it. Avoid caffeine and nicotine, which can make anxiety symptoms worse. Fight the temptation to turn to alcohol or unprescribed drugs for relief. They only make things worse in the long run. 0438-5970 [employer]. [address] [place] [address], [place] [address]. All rights reserved. This information is not intended as a substitute for professional medical care. Always follow your healthcare professional's instructions. Additional Information VACCINATE! IT SAVES LIVES! Members of the community who have not yet received the COVID-19 vaccine and would like to receive it can visit one of [facility] vaccine clinics. There are many vaccine clinic locations within the [facility]. For locations and available times, please visit [email or web address] [email or web address] It is important to note that some COVID mobile vaccine clinics are held outdoors and may be canceled in rainy or stormy conditions. To learn more about pediatric vaccinations (ages 5-11), we invite you to visit the [facility] webpage. https://www.[email or web address]/p [email or web address]-[email or web address]-Freq [email or web address].html To learn more about the COVID-19 vaccine, we invite you to visit the CDC website for a list of frequently asked questions. https://www.cdc.gov/coronavirus/ 2019-ncov/vaccines/faq.html [facility] Patient Portal Access Instructions: Stay connected with your healthcare team and access your personal medical information anytime with the [employer] Patient Portal. If you would like a full copy of your medical records please contact the [facility] Medical Records Department Sunday through Sunday between 8a.m. and 4:30p.m. Please follow the directions below to access the portal: 1.Access the email account you provided upon registration to the [facility].2.Look for an invitation email from [facility].3.Open the email and access the invitation link: Accept Invitation to [facility]4.Fill in the required lugo to create your account. Sign into www.[employer] with your username and password that you created in the above steps to stay up to date. You can then view a summary of results, a summary of your visits, and the ability to download your summaries to your computer or send the information securely to a physician. Remember that your healthcare information is confidential, so carefully consider who you will allow to register on the [facility] Patient Portal for access to your information. You can also access the [facility] Patient Portal on the [employer]. Simply click on Health Records under Health Data and then click on the [email or web address] logo. HOW TO SAFELY DISPOSE OF PRESCRIPTION MEDICATIONS Please use one of the following methods to safely dispose of your unused medications. 1.Use a drug disposal kit: the drug disposal pouch allows you to safely discard your old and unused drugs. Ask your nurse to give you one when you are discharged.2.Visit a local take-back location: Many local pharmacies and police departments have programs that collect old and unwanted prescription drugs. Call your local pharmacy or go to http://Signdat.[employer]/2E8Lm7x to find one close to you.3.Make use of household items: Use cat litter or old coffee grounds to dispose medications if other options are not available. Mix your drugs with these household products, seal them in an airtight container and throw it into the garbage. Call [facility]: [phone] to be sure your drugs can be disposed of in this way. Some medicines may require a different approach.4.Never flush your medications down the toilet. IF YOU HAVE BEEN PRESCRIBED AN OPIOIDS FOR PAIN If you have been prescribed an opioid (such as hydrocodone, oxycodone or morphine), it is critical to understand the possible side effects and risks of opioid pain medications. Even when taken as directed, opioids can have several side effects including: Tolerance, meaning you might need to take more of a medication for the same pain relief. Nausea, vomiting and/or constipation. Sleepiness, dizziness, dry mouth, confusion, depression or itching. Physical dependence, meaning you have withdrawal symptoms when a medication is stopped ? this can develop within a few days. KNOW YOUR RESPONSIBILITIES It is important to know exactly how much and how often to take the opioid pain medications you are prescribed. Never take opioids in higher amounts or more often than prescribed. Do not combine opioids with alcohol or other drugs that cause drowsiness, such as benzodiazepines, also known as benzos, including diazepam and alprazolam, muscle relaxants or sleep aids. Never sell or share prescription opioids. This is illegal. Store opioids in a secure place and out of reach of others (including children, family, friends and visitors). The last page(s) of this document has been signed and retained as a CHART COPY Signatures Patient Education Materials Treating Anxiety Disorders with Therapy Medication Leaflets My discharge plan and instructions have been reviewed and explained to me and I,WILVER HELEN Wander understand my current condition and have read and understand these discharge instructions. I have received a written copy of the plan/instructions. If I have questions, I am aware that I should contact my doctor. 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 The interpretation of this patient's EKG contributed directly to the care and management of this patient. Electronic Signature: KARMA GE DO 04/07/2023 03:29:31 [facility] 03-20-2023 Hospital Discharg e instructions Patient Education 03/20/2023 06:43:14 Headache, Unspecified Headache, Unspecified A number of things can cause headaches. The cause of your headache isn t clear. But it doesn t seem to be a sign of any serious illness. Headache affects almost everyone at some time. It is the most common reason people miss days from work or school. You could have a tension headache or a migraine headache. Stress can cause a tension headache. This can happen if you tense the muscles of your shoulders, neck, and scalp without knowing it. If this stress lasts long enough, you may develop a tension headache. It is not clear why migraines occur, but certain things called triggers can raise the risk of having a migraine attack. Migraine triggers may include emotional stress or depression, or by hormone changes during the menstrual cycle. Other triggers include control pills and other medicines, alcohol or caffeine, foods with tyramine (such as aged cheese, wine), eyestrain, weather changes, missed meals, and lack of sleep or oversleeping. Other causes of headache include: Viral illness with high fever Head injury with concussion Sinus, ear, or throat infection Dental pain and jaw joint (TMJ) pain More serious but less common causes of headache include stroke, brain hemorrhage, brain tumor, meningitis, and encephalitis. Home care Follow these tips when taking care of yourself at home: Don t drive yourself home if you were given pain medicine for your headache. Instead, have someone else drive you home. Try to sleep when you get home. You should feel much better when you wake up. Apply heat to the back of your neck to ease a neck muscle spasm. Take care of a migraine headache by putting an ice pack on your forehead or at the base of your skull. If you have nausea or vomiting, eat a light diet until your headache eases. If you have a migraine headache, use sunglasses when in the daylight or around bright indoor lighting until your symptoms get better. Bright glaring light can make this type of headache worse. Follow-up care Follow up with your healthcare provider, or as advised. Talk with your provider if you have frequent headaches. He or she can help figure out a treatment plan. By knowing the earliest signs of headache, and starting treatment right away, you may be able to stop the pain yourself. When to seek medical advice Call your healthcare provider right away if any of these occur: Your head pain suddenly gets worse after sexual intercourse or strenuous activity Your head pain doesn t get better within 24 hours You aren t able to keep liquids down (repeated vomiting) Fever of 100.4 F (38 C) or higher, or as directed by your healthcare provider Stiff neck Extreme drowsiness, confusion, or fainting Dizziness or dizziness with spinning sensation (vertigo) Weakness in an arm or leg or one side of your face You have trouble talking or seeing [phone] [employer]. [address] [place] [address], [place] [address]. All rights reserved. This information is not intended as a substitute for professional medical care. Always follow your healthcare professional's instructions. Follow Up Care 03/20/2023 06:14:37 With:MILKA SCHNEIDER Address: [address] [place] [address] [phone] Business (1) When:2-4 days Comments:Follow-up closely with your doctor, return if any worsening or concerning symptoms. [facility] 03-20-2023 Note Discharge Instructions Thank you for allowing [facility] to assist you with your healthcare needs. The following is important discharge information regarding your hospital visit. Diagnosis from Today's Visit Headache Headache What to Do Next Instructions from Your Care Team No qualifying data available. Post Acute Orders No qualifying data available. You Need to Schedule the Following Appointments Follow Up with MILKA SCHNEIDER When Within 2-4 days Why: Follow-up closely with your doctor, return if any worsening or concerning symptoms. [facility] [place] [address] [phone] Business (1) Allergies Imitrex (tunnel vision) azithromycin Medications Please ask your primary doctor or pharmacist before taking any other medication not listed, including over the counter drugs, herbal medications, vitamins and or supplements as they may interact with your home medications. What How Much When Why Instructions Last Dose Unchanged acetaminophen-codeine (Tylenol with Codeine liquid use acetaminophen-codeine liquid ) See instructions Pain in epigastric region on palpation 10 cc Oral q6hr Unchanged famotidine (Pepcid 20 mg oral tablet) 1 tab(s) by mouth Two (2) times a day Pain in epigastric region on palpation Unchanged levothyroxine (levothyroxine 50 mcg (0.05 mg) oral tablet) 1 tab(s) by mouth Once a day Anxiety Unchanged losartan by mouth Once a day Unchanged melatonin Daily at bedtime Unchanged omeprazole (PriLOSEC 10 mg oral powder for reconstitution, delayed release) 1 Each by mouth Once a day Unchanged zolpidem (zolpidem 10 mg oral tablet) 1 tab(s) by mouth Daily at bedtime Please take this list to your next doctor s visit. Bring all medications you take, including over the counter medications, herbals and other supplements with you to your doctor s visit. Patients and families are reminded to discard old lists and to update any records with all medication providers or retail pharmacies. Education Materials Headache, Unspecified A number of things can cause headaches. The cause of your headache isn t clear. But it doesn t seem to be a sign of any serious illness. Headache affects almost everyone at some time. It is the most common reason people miss days from work or school. You could have a tension headache or a migraine headache. Stress can cause a tension headache. This can happen if you tense the muscles of your shoulders, neck, and scalp without knowing it. If this stress lasts long enough, you may develop a tension headache. It is not clear why migraines occur, but certain things called triggers can raise the risk of having a migraine attack. Migraine triggers may include emotional stress or depression, or by hormone changes during the menstrual cycle. Other triggers include control pills and other medicines, alcohol or caffeine, foods with tyramine (such as aged cheese, wine), eyestrain, weather changes, missed meals, and lack of sleep or oversleeping. Other causes of headache include: Viral illness with high fever Head injury with concussion Sinus, ear, or throat infection Dental pain and jaw joint (TMJ) pain More serious but less common causes of headache include stroke, brain hemorrhage, brain tumor, meningitis, and encephalitis. Home care Follow these tips when taking care of yourself at home: Don t drive yourself home if you were given pain medicine for your headache. Instead, have someone else drive you home. Try to sleep when you get home. You should feel much better when you wake up. Apply heat to the back of your neck to ease a neck muscle spasm. Take care of a migraine headache by putting an ice pack on your forehead or at the base of your skull. If you have nausea or vomiting, eat a light diet until your headache eases. If you have a migraine headache, use sunglasses when in the daylight or around bright indoor lighting until your symptoms get better. Bright glaring light can make this type of headache worse. Follow-up care Follow up with your healthcare provider, or as advised. Talk with your provider if you have frequent headaches. He or she can help figure out a treatment plan. By knowing the earliest signs of headache, and starting treatment right away, you may be able to stop the pain yourself. When to seek medical advice Call your healthcare provider right away if any of these occur: Your head pain suddenly gets worse after sexual intercourse or strenuous activity Your head pain doesn t get better within 24 hours You aren t able to keep liquids down (repeated vomiting) Fever of 100.4 F (38 C) or higher, or as directed by your healthcare provider Stiff neck Extreme drowsiness, confusion, or fainting Dizziness or dizziness with spinning sensation (vertigo) Weakness in an arm or leg or one side of your face You have trouble talking or seeing [id number] [employer]. [address] [place] [address]. All rights reserved. This information is not intended as a substitute for professional medical care. Always follow your healthcare professional's instructions. Additional Information VACCINATE! IT SAVES LIVES! Members of the community who have not yet received the COVID-19 vaccine and would like to receive it can visit one of [facility] vaccine clinics. There are many vaccine clinic locations within the [facility]. For locations and available times, please visit [email or web address] [email or web address] It is important to note that some COVID mobile vaccine clinics are held outdoors and may be canceled in rainy or stormy conditions. To learn more about pediatric vaccinations (ages 5-11), we invite you to visit the [facility] webpage. [email or web address] [email or web address]-Freq [email or web address] To learn more about the COVID-19 vaccine, we invite you to visit the CDC website for a list of frequently asked questions. https://www.cdc.gov/coronavirus/ 2019-ncov/vaccines/faq.html [facility] Access Instructions: Stay connected with your healthcare team and access your personal medical information anytime with the [facility] Patient Portal. If you would like a full copy of your medical records please contact the [facility] Medical Records Department Sunday through Sunday between 8a.m. and 4:30p.m. Please follow the directions below to access the portal: 1.Access the email account you provided upon registration to the [facility].2.Look for an invitation email from [facility].3.Open the email and access the invitation link: Accept Invitation to [facility]4.Fill in the required lugo to create your account. Sign into [email or web address] with your username and password that you created in the above steps to stay up to date. You can then view a summary of results, a summary of your visits, and the ability to download your summaries to your computer or send the information securely to a physician. Remember that your healthcare information is confidential, so carefully consider who you will allow to register on the [facility] Patient Portal for access to your information. You can also access the [facility] Patient Portal on the [employer]. Simply click on Health Records under Health Data and then click on the [email or web address] logo. HOW TO SAFELY DISPOSE OF PRESCRIPTION MEDICATIONS Please use one of the following methods to safely dispose of your unused medications. 1.Use a drug disposal kit: the drug disposal pouch allows you to safely discard your old and unused drugs. Ask your nurse to give you one when you are discharged.2.Visit a local take-back location: Many local pharmacies and police departments have programs that collect old and unwanted prescription drugs. Call your local pharmacy or go to http://Signdat.Cloud Theory/3W8My7s to find one close to you.3.Make use of household items: Use cat litter or old coffee grounds to dispose medications if other options are not available. Mix your drugs with these household products, seal them in an airtight container and throw it into the garbage. Call [facility]: [phone] to be sure your drugs can be disposed of in this way. Some medicines may require a different approach.4.Never flush your medications down the toilet. IF YOU HAVE BEEN PRESCRIBED AN OPIOIDS FOR PAIN If you have been prescribed an opioid (such as hydrocodone, oxycodone or morphine), it is critical to understand the possible side effects and risks of opioid pain medications. Even when taken as directed, opioids can have several side effects including: Tolerance, meaning you might need to take more of a medication for the same pain relief. Nausea, vomiting and/or constipation. Sleepiness, dizziness, dry mouth, confusion, depression or itching. Physical dependence, meaning you have withdrawal symptoms when a medication is stopped ? this can develop within a few days. KNOW YOUR RESPONSIBILITIES It is important to know exactly how much and how often to take the opioid pain medications you are prescribed. Never take opioids in higher amounts or more often than prescribed. Do not combine opioids with alcohol or other drugs that cause drowsiness, such as benzodiazepines, also known as benzos, including diazepam and alprazolam, muscle relaxants or sleep aids. Never sell or share prescription opioids. This is illegal. Store opioids in a secure place and out of reach of others (including children, family, friends and visitors). The last page(s) of this document has been signed and retained as a CHART COPY Signatures Patient Education Materials Headache, Unspecified Medication Leaflets My discharge plan and instructions have been reviewed and explained to me and I,HELEN ROLAND understand my current condition and have read and understand these discharge instructions. I have received a written copy of the plan/instructions. If I have questions, I am aware that I should contact my doctor. 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: Relationship to Patient: Witness Name/Signature: Date/Time: [facility] 12-03-2022 Note HNO ID: [id number] Author: Deepthi Rm APRN.BROOMCORN SORTER Service: ? Author Type: Nurse Practitioner Type: Progress Notes Filed: 12/03/2022 12:00 PM Note Text: This note was created using [employer] Sentry[employer]. Subjective Helen Wander Roland is a 52 year old female. 52 year old female with PMH GERD presents for complaints of dental and mouth pain. Acute onset of symptoms has been months. Left upper molars +pain with chewing +sensitivity to hot and cold. States she was supposed to have dental work last month, but appt was cancelled related to the office needing to remodel. Denies inability to handle secretions. Denies fever or chills. The history is provided by the patient. No speech and language specialist was used. Dental Problem This is a recurrent problem. The current episode started 1 to 4 weeks ago. The problem occurs constantly. The problem has been unchanged. Pertinent negatives include no abdominal pain, anorexia, arthralgias, change in bowel habit, chest pain, chills, congestion, coughing, diaphoresis, fatigue, fever, headaches, joint swelling, myalgias, nausea, neck pain, numbness, rash, sore throat, swollen glands, urinary symptoms, vertigo, visual change, vomiting or weakness. Nothing aggravates the symptoms. She has tried nothing for the symptoms. The treatment provided no relief. PAST MEDICAL HISTORY Diagnosis Date Anxiety GERD (gastroesophageal reflux disease) High-tone pelvic floor dysfunction 05/09/2017 Hypothyroidism Lung nodules needs repeat ct 04/02 Migraine s/p botox Seasonal allergies PAST SURGICAL HISTORY Procedure Laterality Date CHOLECYSTECTOMY EGD TRANSORAL BIOPSY SINGLE/MULTIPLE 10/25/2011 ESOPHAGOGASTRODUODENOSCOPY TRANSORAL DIAGNOSTIC 04/08/2015 EGD KNEE ARTHROSCOPY/SURGERY Left LIG/TRNSXJ FLP TUBE ABDL/VAG APPR UNI/BI NEUROPLASTY AND/TRANSPOS MEDIAN NRV CARPAL TUNNE lt PAST SURGICAL HISTORY OF deviated septum TOTAL ABDOM HYSTERECTOMY 2019 Laparoscopic, uterus and ovaries removed ALLERGIES Azithromycin, Dust, and Imitrex [Sumatriptan] MEDICATIONS famotidine (PEPCID) 20 mg tablet 20 mg. busPIRone (BUSPAR) 5 mg tablet take 1 tablet by mouth twice a day for anxiety magnesium citrate solution Take by mouth. levothyroxine (SYNTHROID) 50 mcg tablet Take 50 mcg by mouth daily before breakfast. escitalopram oxalate (LEXAPRO) 10 mg tablet fluticasone (FLONASE) 50 mcg/actuation nasal spray 1 [place] once daily. LINZESS 290 mcg capsule Take 290 mcg by mouth once daily. zolpidem (AMBIEN) 5 mg tablet Take 5 mg by mouth at bedtime as needed. losartan (COZAAR) 50 mg tablet Take 1 tablet by mouth once daily. amoxicillin-clavulanic acid (AUGMENTIN) 875-125 mg per tablet Take 1 tablet by mouth twice daily for 7 days. oxyCODONE-acetaminophen (PERCOCET) 5-325 mg tablet take 1 tablet by mouth twice a day if needed for pain SCORE OF 7-10 FOR 7 DAYS (Patient not taking: Reported on 12/03/2022) LORazepam (ATIVAN) 1 mg tablet Take 1 mg by mouth twice daily as needed. (Patient not taking: Reported on 10/27/2022) Omeprazole Magnesium 20 mg tablet Take 20 mg by mouth. (Patient not taking: Reported on 12/03/2022) levothyroxine (SYNTHROID) 137 mcg tablet Take 1 tablet by mouth once daily. (Patient not taking: Reported on 05/27/2022) hydrOXYzine pamoate (VISTARIL) 25 mg capsule Take 25 mg by mouth three times daily as needed. (Patient not taking: Reported on 10/30/2022) ondansetron orally disintegrating (ZOFRAN ODT) 4 mg disintegrating tablet Take 1 tablet by mouth every 12 hours as needed for Nausea/Vomiting. (Patient not taking: Reported on 05/27/2022) estradiol (ESTRACE) 1 mg tablet Take 1 mg by mouth once daily. (Patient not taking: Reported on 05/27/2022) FAMILY HISTORY Problem Relation Age of Onset Psychiatry Mother Seizures Mother Cancer Father prostate Social History Tobacco Use Smoking status: Former Packs/day: 0.50 Years: 10.00 Pack years: 5.00 Types: Cigarettes Quit date: 09/16/2012 Years since quittin.2 Smokeless tobacco: Never Substance Use Topics Alcohol use: No Drug use: No Review of Systems Constitutional: Negative for chills, diaphoresis, fatigue and fever. HENT: Positive for dental problem. Negative for congestion, ear pain, postnasal drip, rhinorrhea and sore throat. Eyes: Negative for pain, discharge, redness and itching. Respiratory: Negative for apnea, cough, choking and chest tightness. Cardiovascular: Negative for chest pain, palpitations and leg swelling. Gastrointestinal: Negative for abdominal pain, anorexia, change in bowel habit, diarrhea, nausea and vomiting. Musculoskeletal: Negative for arthralgias, joint swelling, myalgias and neck pain. Skin: Negative for color change, pallor and rash. Allergic/Immunologic: Positive for environmental allergies. Negative for food allergies and immunocompromised state. Neurological: Negative for dizziness, vertigo, facial asymmetry, weakness (more content not included)... [facility] 12-03-2022 Miscellaneous Notes Reason for Call: left sided mouth/jaw pain Outcome: Advised to be seen within 4 hours. Caller plans to go to [facility] at this time for evaluation and was advised to follow up with local dentist for further advise and treatment. Norma Connell RN Reason for Disposition Tooth is painful or swelling around a tooth [1] SEVERE pain (e.g., excruciating, unable to do any normal activities) AND [2] not improved 2 hours after pain medicine Answer Assessment - Initial Assessment Questions 1. LOCATION: Left side of mouth and jaw area, same area where chunk of tooth broke off Second or last wisdom tooth 2. ONSET: Yesterday 3. SEVERITY: Moderate to severe, very sensitive 7-810 taken tylenol 4. SWELLING: Little in left side of jaw/face 5. OTHER SYMPTOMS: Headache Protocols used: Mouth Rail-UPCPM-ME, [id number]-SGGER-TT documented in this encounter [facility] 11-11-2022 Hospital Discharg e instructions Patient Education 11/11/2022 09:37:37 Epigastric Pain (Uncertain Cause) Epigastric Pain (Uncertain Cause) Epigastric pain is pain in the upper abdomen. It can be a sign of disease. Common causes include: Acid reflux (stomach acid flowing up into the esophagus) Gastritis (irritation of the stomach lining) Most often this is from aspirin or NSAID medicines such as ibuprofen, bacteria called H. pylori, or frequent alcohol use. Peptic ulcer disease Inflammation of the pancreas Gallstone Infection in the gallbladder Pain may be dull or burning. It may spread upward to the chest or to the back. There may be other symptoms such as belching, bloating, cramps or hunger pains. There may be weight loss or poor appetite, nausea or vomiting. Since the cause of your pain is not certain yet,you may need more tests. Sometimes the doctor will treat you for the most likely condition to see if there is improvement before doing more tests. Home care Medicines Antacids help neutralize the normal acids in your stomach.If you don t like the liquid, you can try a chewable one. You may find one works better than another for you. Overuse can cause diarrhea or constipation. Acid blockers (H2 blockers) decrease acid production. Examples are cimetidine, famotidine, and ranitidine. Acid inhibitors (PPIs) decrease acid production in a different way than the blockers. You may find they work better, but can take a little longer to take effect. Examples are omeprazole, lansoprazole, pantoprazole, rabeprazole, and esomeprazole. Many of these are available [id number] or available as generics. Take an antacid 30 to 60 minutes after eating and at bedtime, but not at the same time as an acid shaka. Try not to take NSAIDs such as ibuprofen. Aspirin may also cause problems, but if taking it for your heart or other medical reasons, talk to your doctor before stopping it; you don't want to cause a worse problem, like a heart attack or stroke. Diet If certain foods seem to cause your pain, try not to eat them. Certain foods can worsen symptoms of gastritis. Limit or avoid fatty, fried, and spicy foods, as well as coffee, chocolate, mint, and foods with high acid content such as tomatoes and citrus fruit and juices (orange, grapefruit, lemon). Eat slowly and chew food well before swallowing. Symptoms of gastritis can be worsened by certain foods. Don't drink alcohol. It can irritate the stomach. Don't consume caffeine, or use tobacco. These can delay healing and worsen your problem. Try eating smaller meals with snacks in between. Keep an empty stomach for 2 to 3 hours before lying down. Prop the head of the bed up if you have overnight symptoms. This helps acid clear from your esophagus. Follow-up care Follow up with your healthcare provider or as advised. When to seek medical advice Call your healthcare provider right away if any of the following occur: Stomach pain worsens or moves to the right lower part of the abdomen Chest pain appears, or if it worsens or spreads to the chest, back, neck, shoulder, or arm Frequent vomiting (can t keep down liquids) Blood in the stool or vomit (red or black color) Feeling weak or dizzy, fainting, or having trouble breathing Fever of 100.4 F (38 C) or higher, or as directed by your healthcare provider Abdominal swelling [phone] [employer]. [address] [place] [address], [place] [address]. All rights reserved. This information is not intended as a substitute for professional medical care. Always follow your healthcare professional's instructions. Follow Up Care 11/11/2022 09:18:42 With:MILKA SCHNEIDER Address: [address] [place] [address] [phone] When:2-4 days [facility] 11-11-2022 Emergency department Discharge summary Discharge Instructions Thank you for allowing [facility] to assist you with your healthcare needs. The following is important discharge information regarding your hospital visit. Diagnosis from Today's Visit Pain in epigastric region on palpation Abdominal pain What to Do Next Instructions from Your Care Team No qualifying data available. Post Acute Orders No qualifying data available. You Need to Schedule the Following Appointments Follow Up with MILKA SCHNEIDER When Within 2-4 days Where: [place] [address] [phone] Allergies Imitrex (tunnel vision) azithromycin Medications Please ask your primary doctor or pharmacist before taking any other medication not listed, including over the counter drugs, herbal medications, vitamins and or supplements as they may interact with your home medications. What How Much When Why Instructions Last Dose New acetaminophen-codeine (Tylenol with Codeine liquid use acetaminophen-codeine liquid ) See instructions Pain in epigastric region on palpation 10 cc Oral q6hr Printed Prescription New famotidine (Pepcid 20 mg oral tablet) 1 tab(s) by mouth Two (2) times a day Pain in epigastric region on palpation Printed Prescription Unchanged levothyroxine (levothyroxine 50 mcg (0.05 mg) oral tablet) 1 tab(s) by mouth Once a day Anxiety Unchanged losartan by mouth Once a day Unchanged melatonin Daily at bedtime Unchanged omeprazole (PriLOSEC 10 mg oral powder for reconstitution, delayed release) 1 Each by mouth Once a day Please take this list to your next doctor s visit. Bring all medications you take, including over the counter medications, herbals and other supplements with you to your doctor s visit. Patients and families are reminded to discard old lists and to update any records with all medication providers or retail pharmacies. Medication Leaflets famotidine (oral/injection) (fam [place] ti monster) Heartburn Relief, Leader Acid Airport Guide, Pepcid, Pepcid AC, Pepcid AC Maximum Strength, Zantac 360 What is the most important information I should know about famotidine? Follow all directions on the label and package. Use exactly as directed. What is famotidine? Famotidine is used to treat and prevent ulcers in the stomach and intestines. It also treats conditions in which the stomach produces too much acid, such as Keny-More syndrome. Famotidine also treats gastroesophageal reflux disease (GERD) and other conditions in which acid backs up from the stomach into the esophagus, causing heartburn. The Zantac 360 brand of this medicine does not contain ranitidine, a medicine that was withdrawn from market in the [place]. Famotidine may also be used for purposes not listed in this medication guide. What should I discuss with my healthcare provider before taking famotidine? Heartburn can feel like a heart attack. Get emergency medical help if you have chest pain that spreads to your jaw or shoulder. You should not use this medicine if you are allergic to famotidine or similar medicines such as ranitidine (Zantac), cimetidine (Tagamet), or nizatidine (Axid). Ask a doctor or pharmacist if this medicine is safe to use if you have: kidney disease; liver disease; cancer stomach; or long QT syndrome (in you or a family member). Ask a doctor before using this medicine if you are or . How should I take famotidine? Use exactly as directed on the label, or as prescribed by your doctor. Famotidine oral is taken by mouth. Famotidine injection is given in a vein if you are unable to take the medicine by mouth. You may take famotidine oral with or without food. Measure liquid medicine with the supplied syringe or a dose-measuring device (not a kitchen spoon). Most ulcers heal within 4 weeks of famotidine treatment, but it may take up to 8 weeks of using this medicine before your ulcer heals. Keep using the medication as directed. Call your doctor if the condition you are treating with famotidine does not improve, or if it gets worse while using famotidine. Your treatment may also include changes in diet or lifestyle habits. Follow all instructions of your doctor or dietitian. Store at room temperature away from moisture, heat, and light. Do not allow the liquid medicine to freeze. Throw away any unused famotidine liquid that is older than 30 days. What happens if I miss a dose? Take the medicine as soon as you can, but skip the missed dose if it is almost time for your next dose. Do not take two doses at one time. What happens if I overdose? Seek emergency medical attention or call the Poison Help line at . What should I avoid while taking famotidine? Drinking alcohol may increase the risk of damage to your stomach. Avoid taking other stomach acid reducers unless your doctor has told you to. However, you may take an antacid (such as Maalox, Mylanta, Gaviscon, Milk of Magnesia, Rolaids, or Tums) with famotidine. What are the possible side effects of famotidine? Get emergency medical help if you have signs of an allergic reaction: hives; difficult breathing; swelling of your face, lips, tongue, or throat. Stop using famotidine and call your doctor at once if you have: confusion, hallucinations, agitation, lack of energy; a seizure; fast or pounding heartbeats, sudden dizziness (like you might pass out); or unexplained muscle pain, tenderness, or weakness especially if you also have fever, unusual tiredness, and dark colored urine. Some side effects may be more likely in older adults and in people who have severe kidney disease. Common side effects may include: headache; dizziness; or constipation or diarrhea. This is not a complete list of side effects and others may occur. Call your doctor for medical advice about side effects. You may report side effects to FDA at 8-996-VTL-8282. What other drugs will affect famotidine? Famotidine oral can make it harder for your body to absorb other medicines you take by mouth. Tell your doctor if you are taking: cefditoren; dasatinib; delavirdine; fosamprenavir; or tizanidine (if you are taking famotidine liquid). This list is not complete. Other drugs may affect famotidine, including prescription and jdqu-auj-dkyvjmf medicines, vitamins, and herbal products. Not all possible drug interactions are listed here. Where can I get more information? Your doctor or pharmacist can provide more information about famotidine. Remember, keep this and all other medicines out of the reach of children, never share your medicines with others, and use this medication only for the indication prescribed. Every effort has been made to ensure that the information provided by [employer] is accurate, up-to-date, and complete, but no guarantee is made to that effect. Drug information contained herein may be time sensitive. [employer] information has been compiled for use by healthcare practitioners and consumers in the [place] and therefore [employer] does not warrant that uses outside of the [place] are appropriate, unless specifically indicated otherwise. [employer] drug information does not endorse drugs, diagnose patients or recommend therapy. [employer] drug information is an informational resource designed to assist licensed healthcare practitioners in caring for their patients and/or to serve consumers viewing this service as a supplement to, and not a substitute for, the expertise, skill, knowledge and judgment of healthcare practitioners. The absence of a warning for a given drug or drug combination in no way should be construed to indicate that the drug or drug combination is safe, effective or appropriate for any given patient. [employer] does not assume any responsibility for any aspect of healthcare administered with the aid of information [employer] provides. The information contained herein is not intended to cover all possible uses, directions, precautions, warnings, drug interactions, allergic reactions, or adverse effects. If you have questions about the drugs you are taking, check with your doctor, nurse or pharmacist. Copyright 6059-4710 [employer]. Version: 18.. Revision Date: 11/25/2020. acetaminophen and codeine (a KODI escobar and ETIENNE hook) Tylenol with Codeine #3, Tylenol with Codeine #4 What is the most important information I should know about acetaminophen and codeine? MISUSE OF OPIOID MEDICINE CAN CAUSE ADDICTION, OVERDOSE, OR . Keep the medication in a place where others cannot get to it. Do not give this medicine to anyone younger than 12 years old, or anyone under 18 who recently had surgery to remove the tonsils or adenoids. Taking opioid medicine during may cause life-threatening withdrawal symptoms in the . Fatal side effects can occur if you use opioid medicine with alcohol, or with other drugs that cause drowsiness or slow your breathing. Stop taking this medicine and call your doctor right away if you have skin redness or a rash that spreads and causes blistering and peeling. What is acetaminophen and codeine? Acetaminophen and codeine is a combination medicine used to relieve moderate to severe pain. Acetaminophen and codeine may also be used for purposes not listed in this medication guide. What should I discuss with my healthcare provider before taking acetaminophen and codeine? You should not use this medicine if you are allergic to acetaminophen or codeine, or if you have: severe asthma or breathing problems; or a blockage in your stomach or intestines. In some people, codeine breaks down rapidly in the liver and reaches higher than normal levels in the body. This can cause dangerously slow breathing and may cause . Codeine is not approved for use by anyone younger than 12 years old. Do not give this medicine to anyone younger than 18 years old who recently had surgery to remove the tonsils or adenoids. Tell your doctor if you have ever had: breathing problems, sleep apnea; liver disease; alcoholism or drug addiction; urination problems; kidney disease; or problems with your pancreas, thyroid, or gallbladder. If you use opioid medicine while you are , your baby could become dependent on the drug. This can cause life-threatening withdrawal symptoms in the baby after it is born. Babies born dependent on opioids may need medical treatment for several weeks. Do not breastfeed. Codeine can pass into breast milk and cause drowsiness, breathing problems, or in a nursing baby. How should I take acetaminophen and codeine? Follow the directions on your prescription label and read all medication guides. Never use this medicine in larger amounts, or for longer than prescribed. An overdose can damage your liver or cause . Tell your doctor if you feel an increased urge to use more of this medicine. Never share opioid medicine with another person, especially someone with a history of drug abuse or addiction. MISUSE CAN CAUSE ADDICTION, OVERDOSE, OR . Keep the medication in a place where others cannot get to it. Selling or giving away opioid medicine is against the law. If you need surgery or medical tests, tell the surgeon or doctor ahead of time that you are using this medicine. Do not stop using acetaminophen and codeine suddenly after long-term use, or you could have unpleasant withdrawal symptoms. Ask your doctor how to safely stop using this medicine. Store at room temperature away from moisture and heat. Keep track of your medicine. You should be aware if anyone is using it improperly or without a prescription. Do not keep leftover opioid medication. Just one dose can cause in someone using this medicine accidentally or improperly. Ask your pharmacist where to locate a drug take-back disposal program. If there is no take-back program, flush the unused medicine down the toilet. What happens if I miss a dose? Since this medicine is used for pain, you are not likely to miss a dose. Skip any missed dose if it is almost time for your next dose. Do not use two doses at one time. What happens if I overdose? Seek emergency medical attention or call the Poison Help line at . An opioid overdose can be fatal, especially in a child or other person using the medicine without a prescription. Overdose symptoms may include severe drowsiness, pinpoint pupils, slow breathing, or no breathing. Your doctor may recommend you get naloxone (a medicine to reverse an opioid overdose) and keep it with you at all times. A person caring for you can give the naloxone if you stop breathing or don't wake up. Your caregiver must still get emergency medical help and may need to perform CPR (cardiopulmonary resuscitation) on you while waiting for help to arrive. Anyone can buy naloxone from a pharmacy or local health department. Make sure any person caring for you knows where you keep naloxone and how to use it. What should I avoid while taking acetaminophen and codeine? Avoid driving or operating machinery until you know how this medicine will affect you. Dizziness or drowsiness can cause falls, accidents, or severe injuries. Do not drink alcohol. Dangerous side effects or could occur. Ask a doctor or pharmacist before using any other medicine that may contain acetaminophen (sometimes abbreviated as APAP). Taking certain medications together can lead to a fatal overdose. What are the possible side effects of acetaminophen and codeine? Get emergency medical help if you have signs of an allergic reaction: hives; difficulty breathing; swelling of your face, lips, tongue, or throat. Opioid medicine can slow or stop your breathing, and may occur. A person caring for you should give naloxone and/or seek emergency medical attention if you have slow breathing with long pauses, blue colored lips, or if you are hard to wake up. In rare cases, acetaminophen may cause a severe skin reaction that can be fatal. This could occur even if you have taken acetaminophen in the past and had no reaction. Stop taking this medicine and call your doctor right away if you have skin redness or a rash that spreads and causes blistering and peeling. Call your doctor at once if you have: noisy breathing, sighing, shallow breathing, breathing that stops; a light-headed feeling, like you might pass out; confusion, severe drowsiness; liver problems--nausea, upper stomach pain, itching, loss of appetite, dark urine, thong-colored stools, jaundice (yellowing of the skin or eyes); or high levels of serotonin in the body--agitation, hallucinations, fever, sweating, shivering, fast heart rate, muscle stiffness, twitching, loss of coordination, nausea, vomiting, diarrhea. Serious breathing problems may be more likely in older adults and in those who are debilitated or have wasting syndrome or chronic breathing disorders. Common side effects include: drowsiness, dizziness, feeling tired; nausea, vomiting, stomach pain; constipation; or headache. This is not a complete list of side effects and others may occur. Call your doctor for medical advice about side effects. You may report side effects to FDA at 8-207-JYI-3223. What other drugs will affect acetaminophen and codeine? You may have breathing problems or withdrawal symptoms if you start or stop taking certain other medicines. Tell your doctor if you also use an antibiotic, antifungal medication, heart or blood pressure medication, seizure medication, or medicine to treat HIV or hepatitis C. Opioid medication can interact with many other drugs and cause dangerous side effects or . Be sure your doctor knows if you also use: cold or allergy medicines, bronchodilator asthma/COPD medication, or a diuretic ('water pill'); medicines for motion sickness, irritable bowel syndrome, or overactive bladder; other opioids--opioid pain medicine or prescription cough medicine; a sedative like Valium--diazepam, alprazolam, lorazepam, Xanax, Klonopin, Versed, and others; drugs that make you sleepy or slow your breathing--a sleeping pill, muscle relaxer, medicine to treat mood disorders or mental illness; drugs that affect serotonin levels in your body--a stimulant, or medicine for depression, Parkinson's disease, migraine headaches, serious infections, or nausea and vomiting. This list is not complete. Other drugs may affect acetaminophen and codeine, including prescription and kovs-kpc-vshpoic medicines, vitamins, and herbal products. Not all possible interactions are listed here. Where can I get more information? Your doctor or pharmacist can provide more information about acetaminophen and codeine. Remember, keep this and all other medicines out of the reach of children, never share your medicines with others, and use this medication only for the indication prescribed. Every effort has been made to ensure that the information provided by [employer] is accurate, up-to-date, and complete, but no guarantee is made to that effect. Drug information contained herein may be time sensitive. [employer] information has been compiled for use by healthcare practitioners and consumers in the [place] and therefore [employer] does not warrant that uses outside of the [place] are appropriate, unless specifically indicated otherwise. [employer] drug information does not endorse drugs, diagnose patients or recommend therapy. [employer] drug information is an informational resource designed to assist licensed healthcare practitioners in caring for their patients and/or to serve consumers viewing this service as a supplement to, and not a substitute for, the expertise, skill, knowledge and judgment of healthcare practitioners. The absence of a warning for a given drug or drug combination in no way should be construed to indicate that the drug or drug combination is safe, effective or appropriate for any given patient. [employer] does not assume any responsibility for any aspect of healthcare administered with the aid of information [employer] provides. The information contained herein is not intended to cover all possible uses, directions, precautions, warnings, drug interactions, allergic reactions, or adverse effects. If you have questions about the drugs you are taking, check with your doctor, nurse or pharmacist. Copyright 6975-4052 [employer]. Version: 18.. Revision Date: 07/23/2020. Education Materials Epigastric Pain (Uncertain Cause) Epigastric pain is pain in the upper abdomen. It can be a sign of disease. Common causes include: Acid reflux (stomach acid flowing up into the esophagus) Gastritis (irritation of the stomach lining) Most often this is from aspirin or NSAID medicines such as ibuprofen, bacteria called H. pylori, or frequent alcohol use. Peptic ulcer disease Inflammation of the pancreas Gallstone Infection in the gallbladder Pain may be dull or burning. It may spread upward to the chest or to the back. There may be other symptoms such as belching, bloating, cramps or hunger pains. There may be weight loss or poor appetite, nausea or vomiting. Since the cause of your pain is not certain yet,you may need more tests. Sometimes the doctor will treat you for the most likely condition to see if there is improvement before doing more tests. Home care Medicines Antacids help neutralize the normal acids in your stomach.If you don t like the liquid, you can try a chewable one. You may find one works better than another for you. Overuse can cause diarrhea or constipation. Acid blockers (H2 blockers) decrease acid production. Examples are cimetidine, famotidine, and ranitidine. Acid inhibitors (PPIs) decrease acid production in a different way than the blockers. You may find they work better, but can take a little longer to take effect. Examples are omeprazole, lansoprazole, pantoprazole, rabeprazole, and esomeprazole. Many of these are available [id number] or available as generics. Take an antacid 30 to 60 minutes after eating and at bedtime, but not at the same time as an acid shaka. Try not to take NSAIDs such as ibuprofen. Aspirin may also cause problems, but if taking it for your heart or other medical reasons, talk to your doctor before stopping it; you don't want to cause a worse problem, like a heart attack or stroke. Diet If certain foods seem to cause your pain, try not to eat them. Certain foods can worsen symptoms of gastritis. Limit or avoid fatty, fried, and spicy foods, as well as coffee, chocolate, mint, and foods with high acid content such as tomatoes and citrus fruit and juices (orange, grapefruit, lemon). Eat slowly and chew food well before swallowing. Symptoms of gastritis can be worsened by certain foods. Don't drink alcohol. It can irritate the stomach. Don't consume caffeine, or use tobacco. These can delay healing and worsen your problem. Try eating smaller meals with snacks in between. Keep an empty stomach for 2 to 3 hours before lying down. Prop the head of the bed up if you have overnight symptoms. This helps acid clear from your esophagus. Follow-up care Follow up with your healthcare provider or as advised. When to seek medical advice Call your healthcare provider right away if any of the following occur: Stomach pain worsens or moves to the right lower part of the abdomen Chest pain appears, or if it worsens or spreads to the chest, back, neck, shoulder, or arm Frequent vomiting (can t keep down liquids) Blood in the stool or vomit (red or black color) Feeling weak or dizzy, fainting, or having trouble breathing Fever of 100.4 F (38 C) or higher, or as directed by your healthcare provider Abdominal swelling [id number] [employer]. [address] [place] [address]. All rights reserved. This information is not intended as a substitute for professional medical care. Always follow your healthcare professional's instructions. Additional Information VACCINATE! IT SAVES LIVES! Members of the community who have not yet received the COVID-19 vaccine and would like to receive it can visit one of [facility] vaccine clinics. There are many vaccine clinic locations within the [facility]. For locations and available times, please visit [email or web address] It is important to note that some COVID mobile vaccine clinics are held outdoors and may be canceled in rainy or stormy conditions. To learn more about pediatric vaccinations (ages 5-11), we invite you to visit the [facility] webpage. [email or web address] To learn more about the COVID-19 vaccine, we invite you to visit the CDC website for a list of frequently asked questions. https://www.cdc.gov/coronavirus/ 2019-ncov/vaccines/faq.html [employer] Patient Portal Access Instructions: Stay connected with your healthcare team and access your personal medical information anytime with the [employer] Patient Portal. If you would like a full copy of your medical records please contact the [facility] Medical Records Department Sunday through Sunday between 8a.m. and 4:30p.m. Please follow the directions below to access the portal: 1.Access the email account you provided upon registration to the [facility].2.Look for an invitation email from [facility].3.Open the email and access the invitation link: Accept Invitation to [employer]4.Fill in the required lugo to create your account. Sign into [email or web address] with your username and password that you created in the above steps to stay up to date. You can then view a summary of results, a summary of your visits, and the ability to download your summaries to your computer or send the information securely to a physician. Remember that your healthcare information is confidential, so carefully consider who you will allow to register on the [employer] Patient Portal for access to your information. You can also access the [employer] Patient Portal on the [employer]isa. Simply click on Health Records under Health Data and then click on the [email or web address] logo. HOW TO SAFELY DISPOSE OF PRESCRIPTION MEDICATIONS Please use one of the following methods to safely dispose of your unused medications. 1.Use a drug disposal kit: the drug disposal pouch allows you to safely discard your old and unused drugs. Ask your nurse to give you one when you are discharged.2.Visit a local take-back location: Many local pharmacies and police departments have programs that collect old and unwanted prescription drugs. Call your local pharmacy or go to http://Signdat.[employer]/8A3Nv4d to find one close to you.3.Make use of household items: Use cat litter or old coffee grounds to dispose medications if other options are not available. Mix your drugs with these household products, seal them in an airtight container and throw it into the garbage. Call [facility]: [phone] to be sure your drugs can be disposed of in this way. Some medicines may require a different approach.4.Never flush your medications down the toilet. IF YOU HAVE BEEN PRESCRIBED AN OPIOIDS FOR PAIN If you have been prescribed an opioid (such as hydrocodone, oxycodone or morphine), it is critical to understand the possible side effects and risks of opioid pain medications. Even when taken as directed, opioids can have several side effects including: Tolerance, meaning you might need to take more of a medication for the same pain relief. Nausea, vomiting and/or constipation. Sleepiness, dizziness, dry mouth, confusion, depression or itching. Physical dependence, meaning you have withdrawal symptoms when a medication is stopped ? this can develop within a few days. KNOW YOUR RESPONSIBILITIES It is important to know exactly how much and how often to take the opioid pain medications you are prescribed. Never take opioids in higher amounts or more often than prescribed. Do not combine opioids with alcohol or other drugs that cause drowsiness, such as benzodiazepines, also known as benzos, including diazepam and alprazolam, muscle relaxants or sleep aids. Never sell or share prescription opioids. This is illegal. Store opioids in a secure place and out of reach of others (including children, family, friends and visitors). The last page(s) of this document has been signed and retained as a CHART [employer] Patient Education Materials Epigastric Pain (Uncertain Cause) Medication Leaflets famotidine (oral/injection), acetaminophen and codeine My discharge plan and instructions have been reviewed and explained to me and I,HELEN ROLAND understand my current condition and have read and understand these discharge instructions. I have received a written copy of the plan/instructions. If I have questions, I am aware that I should contact my doctor. 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: Relationship to Patient: Witness Name/Signature: Date/Time: [facility] 10-30-2022 Note HNO ID: [id number] Author: Anthony Johnson MD Service: ? Author Type: Physician Type: Progress Notes Filed: 10/30/2022 11:55 AM Note Text: Patient presents with: Cough: Chest congestion, PAINTING, chills x 5 days HPI: Feeling sick for about 1 week. Prescribed augmentin here 10/27/22 for sinusitis associated with URI symptoms for 1 week. Later 10/27/22 was evaluated at [facility] ER for dizziness. She is feeling a little better, but augmentin made her vomit so she stopped it after 3 doses. Her is sick also. Positive symptoms: Cough, Chills, Headache, dizziness, Ear pressure, Sinus pressure, Nasal Congestion, Rhinorrhea, resolved Vomiting, Negative symptoms: Shortness of breath, Chest pain, Fever, Diarrhea, OTC: none. Routine flonase. PAST MEDICAL HISTORY Diagnosis Date Anxiety GERD (gastroesophageal reflux disease) High-tone pelvic floor dysfunction 05/09/2017 Hypothyroidism Lung nodules needs repeat ct 04/02 Migraine s/p botox Migraine Seasonal allergies MEDICATIONS: Current Outpatient Medications Medication Sig oxyCODONE-acetaminophen (PERCOCET) 5-325 mg tablet take 1 tablet by mouth twice a day if needed for pain SCORE OF 7-10 FOR 7 DAYS busPIRone (BUSPAR) 5 mg tablet take 1 tablet by mouth twice a day for anxiety magnesium citrate solution Take by mouth. levothyroxine (SYNTHROID) 50 mcg tablet Take 50 mcg by mouth daily before breakfast. escitalopram oxalate (LEXAPRO) 10 mg tablet fluticasone (FLONASE) 50 mcg/actuation nasal spray 1 [place] once daily. LINZESS 290 mcg capsule Take 290 mcg by mouth once daily. Omeprazole Magnesium 20 mg tablet Take 20 mg by mouth. zolpidem (AMBIEN) 5 mg tablet Take 5 mg by mouth at bedtime as needed. losartan (COZAAR) 50 mg tablet Take 1 tablet by mouth once daily. amoxicillin-clavulanic acid (AUGMENTIN) 875-125 mg per tablet Take 1 tablet by mouth twice daily for 7 days. (Patient not taking: Reported on 10/30/2022) LORazepam (ATIVAN) 1 mg tablet Take 1 mg by mouth twice daily as needed. (Patient not taking: Reported on 10/27/2022) levothyroxine (SYNTHROID) 137 mcg tablet Take 1 tablet by mouth once daily. (Patient not taking: Reported on 05/27/2022) hydrOXYzine pamoate (VISTARIL) 25 mg capsule Take 25 mg by mouth three times daily as needed. (Patient not taking: Reported on 10/30/2022) ondansetron orally disintegrating (ZOFRAN ODT) 4 mg disintegrating tablet Take 1 tablet by mouth every 12 hours as needed for Nausea/Vomiting. (Patient not taking: Reported on 05/27/2022) estradiol (ESTRACE) 1 mg tablet Take 1 mg by mouth once daily. (Patient not taking: Reported on 05/27/2022) No current facility-administered medications for this visit. ALLERGIES: ALLERGIES Allergen Reactions Azithromycin Diarrhea Dust Itching Imitrex [Sumatripta* Other: See Comments vision VITALS: BP 118/74 Pulse 73 Temp 36.1 ?C (96.9 ?F) Resp 21 Wt 72.1 kg (159 lb) LMP 06/18/2019 SpO2 99% BMI 24.18 kg/m? PHYSICAL EXAM: GEN: mildly ill appearing HEENT: PERRL, EOMI, conjunctiva clear Ears: canals mostly occluded by cerumen. Visible RTM without erythema or effusion Sinuses: non-tender frontal sinus, non-tender maxillary sinuses Throat: moist mucous membranes, mild erythema, no exudate Neck: supple, no thyromegaly, no lymphadenopathy HEART: regular rate and rhythm, no murmurs LUNGS: clear to auscultation, no wheezes or crackles, no increased WOB ASSESSMENT/PLAN: 1. Acute non-recurrent sinusitis, unspecified location - ICD9: 461.9, ICD10: J01.90 Finish course of antibiotic with - AMOXICILLIN 875 MG TABLET which should be better tolerated than augmentin. She declines COVID testing. Anthony Johnson MD [facility] 10-30-2022 History of Presen t illness Narrative Patient presents with: Cough: Chest congestion, PAINTING, chills x 5 days HPI: Feeling sick for about 1 week. Prescribed augmentin here 10/27/22 for sinusitis associated with URI symptoms for 1 week. Later 10/27/22 was evaluated at [facility] ER for dizziness. She is feeling a little better, but augmentin made her vomit so she stopped it after 3 doses. Her is sick also. Positive symptoms: Cough, Chills, Headache, dizziness, Ear pressure, Sinus pressure, Nasal Congestion, Rhinorrhea, resolved Vomiting, Negative symptoms: Shortness of breath, Chest pain, Fever, Diarrhea, OTC: none. Routine flonase. PAST MEDICAL HISTORY Diagnosis Date Anxiety GERD (gastroesophageal reflux disease) High-tone pelvic floor dysfunction 05/09/2017 Hypothyroidism Lung nodules needs repeat ct 04/02 Migraine s/p botox Migraine Seasonal allergies MEDICATIONS: Current Outpatient Medications Medication Sig oxyCODONE-acetaminophen (PERCOCET) 5-325 mg tablet take 1 tablet by mouth twice a day if needed for pain SCORE OF 7-10 FOR 7 DAYS busPIRone (BUSPAR) 5 mg tablet take 1 tablet by mouth twice a day for anxiety magnesium citrate solution Take by mouth. levothyroxine (SYNTHROID) 50 mcg tablet Take 50 mcg by mouth daily before breakfast. escitalopram oxalate (LEXAPRO) 10 mg tablet fluticasone (FLONASE) 50 mcg/actuation nasal spray 1 [place] once daily. LINZESS 290 mcg capsule Take 290 mcg by mouth once daily. Omeprazole Magnesium 20 mg tablet Take 20 mg by mouth. zolpidem (AMBIEN) 5 mg tablet Take 5 mg by mouth at bedtime as needed. losartan (COZAAR) 50 mg tablet Take 1 tablet by mouth once daily. amoxicillin-clavulanic acid (AUGMENTIN) 875-125 mg per tablet Take 1 tablet by mouth twice daily for 7 days. (Patient not taking: Reported on 10/30/2022) LORazepam (ATIVAN) 1 mg tablet Take 1 mg by mouth twice daily as needed. (Patient not taking: Reported on 10/27/2022) levothyroxine (SYNTHROID) 137 mcg tablet Take 1 tablet by mouth once daily. (Patient not taking: Reported on 05/27/2022) hydrOXYzine pamoate (VISTARIL) 25 mg capsule Take 25 mg by mouth three times daily as needed. (Patient not taking: Reported on 10/30/2022) ondansetron orally disintegrating (ZOFRAN ODT) 4 mg disintegrating tablet Take 1 tablet by mouth every 12 hours as needed for Nausea/Vomiting. (Patient not taking: Reported on 05/27/2022) estradiol (ESTRACE) 1 mg tablet Take 1 mg by mouth once daily. (Patient not taking: Reported on 05/27/2022) No current facility-administered medications for this visit. ALLERGIES: ALLERGIES Allergen Reactions Azithromycin Diarrhea Dust Itching Imitrex [Sumatripta* Other: See Comments vision VITALS: BP 118/74 Pulse 73 Temp 36.1 C (96.9 F) Resp 21 Wt 72.1 kg (159 lb) LMP 06/18/2019 SpO2 99% BMI 24.18 kg/m PHYSICAL EXAM: GEN: mildly ill appearing HEENT: PERRL, EOMI, conjunctiva clear Ears: canals mostly occluded by cerumen. Visible RTM without erythema or effusion Sinuses: non-tender frontal sinus, non-tender maxillary sinuses Throat: moist mucous membranes, mild erythema, no exudate Neck: supple, no thyromegaly, no lymphadenopathy HEART: regular rate and rhythm, no murmurs LUNGS: clear to auscultation, no wheezes or crackles, no increased WOB ASSESSMENT/PLAN: 1. Acute non-recurrent sinusitis, unspecified location - ICD9: 461.9, ICD10: J01.90 Finish course of antibiotic with - AMOXICILLIN 875 MG TABLET which should be better tolerated than augmentin. She declines COVID testing. Anthony Johnson MD documented in this encounter [facility] 10-27-2022 Note HNO ID: [id number] Author: Karne Quiroga APRN.[employer] Service: ? Author Type: Nurse Practitioner Type: Progress Notes Filed: 10/27/2022 12:08 PM Note Text: Subjective HPI Helen Roland is a 52 year old female who presents with sinus congestion and drainage, swollen glands in neck, headaches, ears feel tight , scratchy throat for the past week. She has not had a fever, but states her hands and feet feel cold. She has not taken any medication at home for her symptoms. Denies any known sick contacts but did attend a last week. Review of Systems Constitutional: Positive for chills. Negative for fever and malaise/fatigue. HENT: Positive for congestion, ear pain, sinus pain and sore throat. Respiratory: Negative for cough. Cardiovascular: Negative. Gastrointestinal: Negative for diarrhea, nausea and vomiting. Skin: Negative for itching and rash. Neurological: Positive for dizziness and headaches. BP 140/82 Pulse 87 Temp 36.5 ?C (97.7 ?F) Resp 20 Wt 73.2 kg (161 lb 6.4 oz) LMP 06/18/2019 SpO2 98% BMI 24.54 kg/m? PAST MEDICAL HISTORY Diagnosis Date GERD (gastroesophageal reflux disease) High-tone pelvic floor dysfunction 05/09/[address] 04/02 Migraine s/p botox Seasonal allergies PAST SURGICAL HISTORY Procedure Laterality Date CHOLECYSTECTOMY EGD TRANSORAL BIOPSY SINGLE/MULTIPLE 10/25/2011 ESOPHAGOGASTRODUODENOSCOPY TRANSORAL DIAGNOSTIC 04/08/2015 EGD KNEE ARTHROSCOPY/SURGERY Left LIG/TRNSXJ FLP TUBE ABDL/VAG APPR UNI/BI NEUROPLASTY AND/TRANSPOS MEDIAN NRV CARPAL TUNNE lt PAST SURGICAL HISTORY OF deviated septum TOTAL ABDOM HYSTERECTOMY 2020 Laparoscopic, uterus and ovaries removed ALLERGIES Azithromycin, Dust, Imitrex [Sumatriptan], and Milk MEDICATIONS busPIRone (BUSPAR) 5 mg tablet take 1 tablet by mouth twice a day for anxiety magnesium citrate solution Take by mouth. levothyroxine (SYNTHROID) 50 mcg tablet Take 50 mcg by mouth daily before breakfast. escitalopram oxalate (LEXAPRO) 10 mg tablet fluticasone (FLONASE) 50 mcg/actuation nasal spray 1 [place] once daily. LINZESS 290 mcg capsule Take 290 mcg by mouth once daily. Omeprazole Magnesium 20 mg tablet Take 20 mg by mouth. hydrOXYzine pamoate (VISTARIL) 25 mg capsule Take 25 mg by mouth three times daily as needed. zolpidem (AMBIEN) 5 mg tablet Take 5 mg by mouth at bedtime as needed. losartan (COZAAR) 50 mg tablet Take 1 tablet by mouth once daily. amoxicillin-clavulanic acid (AUGMENTIN) 875-125 mg per tablet Take 1 tablet by mouth twice daily for 7 days. LORazepam (ATIVAN) 1 mg tablet Take 1 mg by mouth twice daily as needed. (Patient not taking: Reported on 10/27/2022) levothyroxine (SYNTHROID) 137 mcg tablet Take 1 tablet by mouth once daily. (Patient not taking: Reported on 05/27/2022) ondansetron orally disintegrating (ZOFRAN ODT) 4 mg disintegrating tablet Take 1 tablet by mouth every 12 hours as needed for Nausea/Vomiting. (Patient not taking: Reported on 05/27/2022) estradiol (ESTRACE) 1 mg tablet Take 1 mg by mouth once daily. (Patient not taking: Reported on 05/27/2022) FAMILY HISTORY Problem Relation Age of Onset Psychiatry Mother Seizures Mother Cancer Father prostate Social History Tobacco Use Smoking status: Former Packs/day: 0.50 Years: 10.00 Pack years: 5.00 Types: Cigarettes Quit date: 09/16/2012 Years since quittin.1 Smokeless tobacco: Never Substance Use Topics Alcohol use: No Drug use: No Objective Physical Exam Vitals and nursing note reviewed. Constitutional: General: She is not in acute distress. Appearance: Normal appearance. She is not ill-appearing. HENT: Right Ear: Tympanic membrane, ear canal and external ear normal. Left Ear: Tympanic membrane, ear canal and external ear normal. Nose: Nasal tenderness, mucosal edema, congestion and rhinorrhea present. Mouth/Throat: Mouth: Mucous membranes are moist. Pharynx: Uvula midline. No oropharyngeal exudate or posterior oropharyngeal erythema. Cardiovascular: Rate and Rhythm: Normal rate and regular rhythm. Heart sounds: Normal heart sounds. Pulmonary: Effort: Pulmonary effort is normal. No respiratory distress. Breath sounds: Normal breath sounds. No wheezing or rales. Musculoskeletal: Cervical back: Neck supple. Lymphadenopathy: Cervical: No cervical adenopathy. Skin: General: Skin is warm and dry. Findings: No erythema or rash. Neurological: Mental Status: She is alert. Psychiatric: Mood and Affect: Mood is anxious. ASSESSMENT/PLAN: 1. Bacterial sinusitis - ICD9: 473.9, 041.9, ICD10: J32.9, B96.89 - Will begin treatment with as per antibiotic as written, see orders - Supportive care with plenty of fluids, rest, and analgesia prn. - AMOXICILLIN 875 MG-POTASSIUM CLAVULANATE 125 MG TABLET - Follow-up with your PCP in 3-5 days if symptoms have not improved or sooner if symptoms (more content not included)... [facility] 09-22-2022 Hospital Discharg e instructions Patient Education 09/22/2022 18:10:05 Dental Pain Dental Pain A crack or cavity in a tooth can cause tooth pain. This is because the crack or cavity exposes the sensitive inner area of the tooth. An infection in the gum or the root of the tooth can cause pain and swelling. The pain is often made worse when you drink hot or cold beverages. It can also be worse when you bite on hard foods. Pain may spread from the tooth to your ear or the area of the jaw on the same side. Home care Follow these tips when caring for yourself at home: Don't have hot and cold foods and drinks. Your tooth may be sensitive to changes in temperature. Use toothpaste made for sensitive teeth. [place] gently up and down instead of sideways. Brushing sideways can wear away root surfaces if they are exposed. If your tooth is chipped or cracked, or if there is a large open cavity, put oil of cloves directly on the tooth to relieve pain. You can buy oil of cloves at drugstores. Some pharmacies carry an hrcl-xik-loqelou toothache kit. This contains a paste that you can put on the exposed tooth to make it less sensitive. Put a cold pack on your jaw over the sore area to help reduce pain. You may use caat-awc-gvnkpit medicine to ease pain, unless your doctor prescribed another medicine. If you have chronic liver or kidney disease, talk with your healthcare provider before using acetaminophen or ibuprofen. Also talk with your provider if you ve had a stomach ulcer or GI bleeding. If you have signs of an infection, you will be given an antibiotic. Take it as directed. Follow-up care Follow up with your dentist, or as advised. Your pain may go away with the treatment given today. But only a dentist can fully look at and treat the cause of your pain. This will keep the pain from coming back. Call 911 Call 911 if any of these occur: Unusual drowsiness Headache or stiff neck Weakness or fainting Difficulty swallowing or breathing When to seek medical advice Call your health care provider right away if any of these occur: Your face becomes swollen or red Pain gets worse or spreads to your neck Fever of 100.4 F (38.0 C) or higher, or as directed by your healthcare provider Pus drains from the tooth [phone] [employer]. [address] [place] [address]. All rights reserved. This information is not intended as a substitute for professional medical care. Always follow your healthcare professional's instructions. Follow Up Care 09/22/2022 17:48:39 With:your dentist Address: When:1-2 days With:Go to emergency room if symptoms worsen Address:Unknown When:2-4 days With:MILKA SCHNEIDER Address: [address] [place] [phone] When:2-4 days [facility] 09-22-2022 Emergency department Discharge summary Discharge Instructions Thank you for allowing [facility] to assist you with your healthcare needs. The following is important discharge information regarding your hospital visit. Diagnosis from Today's Visit Dentalgia Dental pain What to Do Next Instructions from Your Care Team Take clindamycin as prescribed. Follow-up closely with your dentist. Return the emergency department if you notice increased pain, swelling, difficulty swallowing, fevers, or any other care concern. No qualifying data available. Post Acute Orders No qualifying data available. You Need to Schedule the Following Appointments Follow Up with your dentist When Within 1-2 days Where: Follow Up with Go to emergency room if symptoms worsen When Within 2-4 days Follow Up with MILKA SCHNEIDER When Within 2-4 days Where: [address] [place] [phone]- [phone] Allergies Imitrex (tunnel vision) azithromycin Medications Please ask your primary doctor or pharmacist before taking any other medication not listed, including over the counter drugs, herbal medications, vitamins and or supplements as they may interact with your home medications. What How Much When Why Instructions Last Dose New clindamycin (clindamycin 150 mg oral capsule) 3 cap by mouth Every 8 hours Dentalgia Duration: 7 Days Printed Prescription Unchanged estradiol (estradiol 1 mg oral tablet) 1 tab(s) by mouth Once a day Unchanged hydrOXYzine (Vistaril) by mouth Four (4) times a day Unchanged levothyroxine (levothyroxine 150 mcg (0.15 mg) oral tablet) 1 tab(s) by mouth Once a day Unchanged levothyroxine (levothyroxine 50 mcg (0.05 mg) oral tablet) 1 tab(s) by mouth Once a day Anxiety Unchanged losartan by mouth Once a day Unchanged melatonin Daily at bedtime Unchanged nabumetone (nabumetone 500 mg oral tablet) 2 tab(s) by mouth Two (2) times a day Duration: 14 Days Unchanged omeprazole (PriLOSEC OTC 20 mg oral delayed release tablet) 1 tab(s) by mouth Once a day before a meal Upper abdominal pain Anxiety Unchanged potassium chloride Please take this list to your next doctor s visit. Bring all medications you take, including over the counter medications, herbals and other supplements with you to your doctor s visit. Patients and families are reminded to discard old lists and to update any records with all medication providers or retail pharmacies. Education Materials Dental Pain A crack or cavity in a tooth can cause tooth pain. This is because the crack or cavity exposes the sensitive inner area of the tooth. An infection in the gum or the root of the tooth can cause pain and swelling. The pain is often made worse when you drink hot or cold beverages. It can also be worse when you bite on hard foods. Pain may spread from the tooth to your ear or the area of the jaw on the same side. Home care Follow these tips when caring for yourself at home: Don't have hot and cold foods and drinks. Your tooth may be sensitive to changes in temperature. Use toothpaste made for sensitive teeth. [place] gently up and down instead of sideways. Brushing sideways can wear away root surfaces if they are exposed. If your tooth is chipped or cracked, or if there is a large open cavity, put oil of cloves directly on the tooth to relieve pain. You can buy oil of cloves at drugstores. Some pharmacies carry an mhbx-srv-atmadcn toothache kit. This contains a paste that you can put on the exposed tooth to make it less sensitive. Put a cold pack on your jaw over the sore area to help reduce pain. You may use fqvj-fxo-ippipqz medicine to ease pain, unless your doctor prescribed another medicine. If you have chronic liver or kidney disease, talk with your healthcare provider before using acetaminophen or ibuprofen. Also talk with your provider if you ve had a stomach ulcer or GI bleeding. If you have signs of an infection, you will be given an antibiotic. Take it as directed. Follow-up care Follow up with your dentist, or as advised. Your pain may go away with the treatment given today. But only a dentist can fully look at and treat the cause of your pain. This will keep the pain from coming back. Call 911 Call 911 if any of these occur: Unusual drowsiness Headache or stiff neck Weakness or fainting Difficulty swallowing or breathing When to seek medical advice Call your health care provider right away if any of these occur: Your face becomes swollen or red Pain gets worse or spreads to your neck Fever of 100.4 F (38.0 C) or higher, or as directed by your healthcare provider Pus drains from the tooth [phone] [employer]. [address] [place] [address]. All rights reserved. This information is not intended as a substitute for professional medical care. Always follow your healthcare professional's instructions. Additional Information VACCINATE! IT SAVES LIVES! Members of the community who have not yet received the COVID-19 vaccine and would like to receive it can visit one of [facility] vaccine clinics. There are many vaccine clinic locations within the [facility]. For locations and available times, please visit [email or web address] [email or web address] It is important to note that some COVID mobile vaccine clinics are held outdoors and may be canceled in rainy or stormy conditions. To learn more about pediatric vaccinations (ages 5-11), we invite you to visit the [facility] webpage. [email or web address] [email or web address]-Phbudjnfzkg-Freq gevdiy-Loklw-[email or web address] To learn more about the COVID-19 vaccine, we invite you to visit the CDC website for a list of frequently asked questions. https://www.cdc.gov/coronavirus/ 2019-ncov/vaccines/faq.html [facility] Patient Portal Access Instructions: Stay connected with your healthcare team and access your personal medical information anytime with the [facility] Patient Portal. If you would like a full copy of your medical records please contact the [facility] Medical Records Department Sunday through Sunday between 8a.m. and 4:30p.m. Please follow the directions below to access the portal: 1.Access the email account you provided upon registration to the hospital.2.Look for an invitation email from [facility].3.Open the email and access the invitation link: Accept Invitation to [facility]4.Fill in the required lugo to create your account. Sign into [email or web address] with your username and password that you created in the above steps to stay up to date. You can then view a summary of results, a summary of your visits, and the ability to download your summaries to your computer or send the information securely to a physician. Remember that your healthcare information is confidential, so carefully consider who you will allow to register on the [facility] Patient Portal for access to your information. You can also access the [facility] Patient Portal on the [employer] lisa. Simply click on Health Records under Health Data and then click on the [email or web address] logo. HOW TO SAFELY DISPOSE OF PRESCRIPTION MEDICATIONS Please use one of the following methods to safely dispose of your unused medications. 1.Use a drug disposal kit: the drug disposal pouch allows you to safely discard your old and unused drugs. Ask your nurse to give you one when you are discharged.2.Visit a local take-back location: Many local pharmacies and police departments have programs that collect old and unwanted prescription drugs. Call your local pharmacy or go to http://Signdat.[employer] Theory/6V0Kc9r to find one close to you.3.Make use of household items: Use cat litter or old coffee grounds to dispose medications if other options are not available. Mix your drugs with these household products, seal them in an airtight container and throw it into the garbage. Call [facility]: [phone] to be sure your drugs can be disposed of in this way. Some medicines may require a different approach.4.Never flush your medications down the toilet. IF YOU HAVE BEEN PRESCRIBED AN OPIOIDS FOR PAIN If you have been prescribed an opioid (such as hydrocodone, oxycodone or morphine), it is critical to understand the possible side effects and risks of opioid pain medications. Even when taken as directed, opioids can have several side effects including: Tolerance, meaning you might need to take more of a medication for the same pain relief. Nausea, vomiting and/or constipation. Sleepiness, dizziness, dry mouth, confusion, depression or itching. Physical dependence, meaning you have withdrawal symptoms when a medication is stopped ? this can develop within a few days. KNOW YOUR RESPONSIBILITIES It is important to know exactly how much and how often to take the opioid pain medications you are prescribed. Never take opioids in higher amounts or more often than prescribed. Do not combine opioids with alcohol or other drugs that cause drowsiness, such as benzodiazepines, also known as benzos, including diazepam and alprazolam, muscle relaxants or sleep aids. Never sell or share prescription opioids. This is illegal. Store opioids in a secure place and out of reach of others (including children, family, friends and visitors). The last page(s) of this document has been signed and retained as a CHART COPY Signatures Patient Education Materials Dental Pain Medication Leaflets My discharge plan and instructions have been reviewed and explained to me and IWILVER BONNIE L understand my current condition and have read and understand these discharge instructions. I have received a written copy of the plan/instructions. If I have questions, I am aware that I should contact my doctor. 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: Relationship to Patient: Witness Name/Signature: Date/Time: [facility] 08-15-2022 Hospital Discharg e instructions Patient Education 08/15/2022 14:49:56 Anxiety Reaction Anxiety Reaction Anxiety is the feeling we all get when we think something bad might happen. It is a normal response to stress and usually causes only a mild reaction. When anxiety becomes more severe, it can interfere with daily life. In some cases, you may not even be aware of what it is you re anxious about. There may also be a genetic link or it may be a learned behavior in the home. Both psychological and physical triggers cause stress reaction. It's often a response to fear or emotional stress, real or imagined. This stress may come from home, family, work, or social relationships. During an anxiety reaction, you may feel: Helpless Nervous Depressed Irritable Your body may show signs of anxiety in many ways. You may experience: Dry mouth Shakiness Dizziness Weakness Trouble breathing Breathing fast (hyperventilating) Chest pressure Sweating Headache Nausea Diarrhea Tiredness Inability to sleep Sexual problems Home care Try to locate the sources of stress in your life. They may not be obvious. These may include: oDaily hassles of life (such as traffic jams, missed appointments, or car troubles) oMajor life changes, both good (new baby or job promotion) and bad (loss of job or loss of loved one) oOverload: feeling that you have too many responsibilities and can't take care of all of them at once oFeeling helpless or feeling that your problems are beyond what you re able to solve Notice how your body reacts to stress. Learn to listen to your body signals. This will help you take action before the stress becomes severe. When you can, do something about the source of your stress. (Avoid hassles, limit the amount of change that happens in your life at one time and take a break when you feel overloaded). Unfortunately, many stressful situations can't be avoided. It is necessary to learn how to better manage stress. There are many proven methods that will reduce your anxiety. These include simple things like exercise, good nutrition, and adequate rest. Also, there are certain techniques that are helpful: oRelaxation oBreathing exercises oVisualization oBiofeedback oMeditation For more information about this, consult your healthcare provider or go to a local bookstore and review the many books and tapes available on this subject. Follow-up care If you feel that your anxiety is not responding to self-help measures, contact your healthcare provider or make an appointment with a counselor. You may need short-term psychological counseling and temporary medicine to help you manage stress. Call 911 Call 911 if any of these happen: Trouble breathing Confusion Drowsiness or trouble wakening Fainting or loss of consciousness Rapid heart rate Seizure New chest pain that becomes more severe, lasts longer, or spreads into your shoulder, arm, neck, jaw, or back When to seek medical advice Call your healthcare provider right away if any of these happen: Your symptoms get worse Severe headache not relieved by rest and mild pain reliever [id number] [employer]. [address] [place] [address]. All rights reserved. This information is not intended as a substitute for professional medical care. Always follow your healthcare professional's instructions. Follow Up Care 08/15/2022 13:51:44 With:MILKA SCHNEIDER Address: [address] [place] [address] [place] [address] [phone] When:2-4 days [facility] 08-15-2022 Note Discharge Instructions Thank you for allowing [facility] to assist you with your healthcare needs. The following is important discharge information regarding your hospital visit. Diagnosis from Today's Visit Anxiety Tremor Anxiety What to Do Next Instructions from Your Care Team No qualifying data available. Post Acute Orders No qualifying data available. You Need to Schedule the Following Appointments Follow Up with MILKA SCHNEIDER When Within 2-4 days Where: [address] [place] [address] [phone] Allergies Imitrex (tunnel vision) azithromycin Medications Please ask your primary doctor or pharmacist before taking any other medication not listed, including over the counter drugs, herbal medications, vitamins and or supplements as they may interact with your home medications. What How Much When Why Instructions Last Dose New LORazepam (Ativan 1 mg oral tablet) 1 tab(s) by mouth Every 8 hours as needed for as needed for anxiety Anxiety Tremor Duration: 3 Days Printed Prescription 2 12 Unchanged estradiol (estradiol 1 mg oral tablet) 1 tab(s) by mouth Once a day Unchanged hydrOXYzine (Vistaril) by mouth Four (4) times a day Unchanged levothyroxine (levothyroxine 150 mcg (0.15 mg) oral tablet) 1 tab(s) by mouth Once a day Unchanged levothyroxine (levothyroxine 50 mcg (0.05 mg) oral tablet) 1 tab(s) by mouth Once a day Anxiety Unchanged losartan by mouth Once a day Unchanged melatonin Daily at bedtime Unchanged nabumetone (nabumetone 500 mg oral tablet) 2 tab(s) by mouth Two (2) times a day Duration: 14 Days Unchanged omeprazole (PriLOSEC OTC 20 mg oral delayed release tablet) 1 tab(s) by mouth Once a day before a meal Upper abdominal pain Anxiety Unchanged potassium chloride Please take this list to your next doctor s visit. Bring all medications you take, including over the counter medications, herbals and other supplements with you to your doctor s visit. Patients and families are reminded to discard old lists and to update any records with all medication providers or retail pharmacies. Medication Leaflets lorazepam (oral) (amanda A ze pastora) Ativan, Lorazepam Intensol, Loreev XR What is the most important information I should know about lorazepam? Lorazepam can slow or stop your breathing, especially if you have recently used an opioid medication or alcohol. MISUSE OF THIS MEDICINE CAN CAUSE ADDICTION, OVERDOSE, OR . Keep this medicine where others cannot get to it. Do not stop using lorazepam without asking your doctor. You may have life-threatening withdrawal symptoms if you stop using the medicine suddenly after long-term use. Some withdrawal symptoms may last up to 12 months or longer. Get medical help right away if you stop using lorazepam and have symptoms such as: unusual muscle movements, being more active or talkative, sudden and severe changes in mood or behavior, confusion, hallucinations, seizures, or thoughts about suicide. What is lorazepam? Lorazepam is a benzodiazepine (lem-yzu-poy-AZE-eh-peen) that is used to treat anxiety disorders. Lorazepam may also be used for purposes not listed in this medication guide. What should I discuss with my healthcare provider before taking lorazepam? You should not use lorazepam if you have: narrow-angle glaucoma; or a history of allergic reaction to any benzodiazepine (lorazepam, alprazolam, diazepam, Valium, Xanax, Versed, Klonopin, and others). Tell your doctor if you have ever had: asthma, chronic obstructive pulmonary disease (COPD), sleep apnea, or other breathing disorder; drug or alcohol addiction; depression, mood problems, or suicidal thoughts or behavior; kidney or liver disease; seizures; or an allergy to aspirin or yellow food dye. Tell your doctor if you are or plan to become . If you use lorazepam during , your baby could be born with life-threatening withdrawal symptoms, and may need medical treatment for several weeks. You should not breastfeed. If you do breastfeed, tell your doctor if you notice drowsiness, feeding problems, or slow weight gain in the nursing baby. Not approved for use by anyone younger than 12 years old. Extended-release lorazepam should not be used by anyone younger than 18 years old. How should I take lorazepam? Follow the directions on your prescription label and read all medication guides or instruction sheets. Never use lorazepam in larger amounts, or for longer than prescribed. Tell your doctor if you feel an increased urge to use more of this medicine. Never share this medicine with another person, especially someone with a history of drug abuse or addiction. MISUSE CAN CAUSE ADDICTION, OVERDOSE, OR . Keep the medication in a place where others cannot get to it. Selling or giving away this medicine is against the law. Measure the oral concentrate (liquid) with the supplied measuring device (not a kitchen spoon). Mix the liquid with water, juice, soda, or soft food such as applesauce or pudding. Swallow this mixture right away. Swallow the extended-release capsule whole and do not crush, chew, break, or open it. If you cannot swallow a capsule whole, open it and mix the medicine with applesauce. Swallow the mixture right away without chewing. Then drink a glass of water. Do not stop using lorazepam without asking your doctor. You may have life-threatening withdrawal symptoms if you stop using the medicine suddenly after long-term use. Store tightly closed at room temperature, away from moisture and heat. Store the liquid form of lorazepam in the refrigerator. Throw away any liquid not used within 90 days. Keep your medicine in a place where no one can use it improperly. What happens if I miss a dose? Take the medicine as soon as you can, but skip the missed dose if it is almost time for your next dose. Do not take two doses at one time. What happens if I overdose? Seek emergency medical attention or call the Poison Help line at . An overdose of lorazepam can be fatal if you take it with alcohol, opioid medicine, or other drugs that cause drowsiness or slow your breathing. Overdose symptoms may include severe drowsiness, confusion, slurred speech, feeling restless, muscle weakness, loss of balance or coordination, feeling light-headed, slow heartbeats, weak or shallow breathing, or coma. What should I avoid while taking lorazepam? Avoid drinking alcohol. Dangerous side effects or could occur. Avoid driving or hazardous activity until you know how this medicine will affect you. Dizziness or drowsiness can cause falls, accidents, or severe injuries. What are the possible side effects of lorazepam? Get emergency medical help if you have signs of an allergic reaction: hives; difficulty breathing; swelling of your face, lips, tongue, or throat. Lorazepam can slow or stop your breathing, especially if you have recently used an opioid medication or alcohol. A person caring for you should seek emergency medical attention if you have slow breathing with long pauses, blue colored lips, or if you are hard to wake up. Call your doctor at once if you have: severe drowsiness; unusual changes in mood or behavior, being agitated or talkative; sudden restless feeling or excitement; thoughts of suicide or hurting yourself; confusion, aggression, hallucinations; sleep problems; vision changes; or dark urine, or jaundice (yellowing of the skin or eyes). Drowsiness or dizziness may last longer in older adults. Use caution to avoid falling or accidental injury. Common side effects may include: dizziness, drowsiness; weakness; or feeling unsteady. After you stop using lorazepam, get medical help right away if you have symptoms such as: unusual muscle movements, being more active or talkative, sudden and severe changes in mood or behavior, confusion, hallucinations, seizures, suicidal thoughts or actions. Some withdrawal symptoms may last up to 12 months or longer after stopping this medicine suddenly. Tell your doctor if you have ongoing anxiety, depression, problems with memory or thinking, trouble sleeping, ringing in your ears, a burning or prickly feeling, or a crawling sensation under your skin. This is not a complete list of side effects and others may occur. Call your doctor for medical advice about side effects. You may report side effects to FDA at 4-307-BFB-2775. What other drugs will affect lorazepam? Taking lorazepam with other drugs that make you sleepy or slow your breathing can cause dangerous side effects or . Ask your doctor before using opioid medication, a sleeping pill, a muscle relaxer, or medicine for anxiety or seizures. Tell your doctor about all your other medicines, especially: probenecid, aminophylline, or theophylline; medicine to treat mental illness; or medicine that contains an antihistamine (such as sleep medicine, cold or allergy medicine). This list is not complete. Other drugs may affect lorazepam, including prescription and oipo-aeu-jebslvy medicines, vitamins, and herbal products. Not all possible drug interactions are listed here. Where can I get more information? Your pharmacist can provide more information about lorazepam. Remember, keep this and all other medicines out of the reach of children, never share your medicines with others, and use this medication only for the indication prescribed. Every effort has been made to ensure that the information provided by [employer] is accurate, up-to-date, and complete, but no guarantee is made to that effect. Drug information contained herein may be time sensitive. [employer] information has been compiled for use by healthcare practitioners and consumers in the [place] and therefore [employer] does not warrant that uses outside of the [place] are appropriate, unless specifically indicated otherwise. [employer]'s drug information does not endorse drugs, diagnose patients or recommend therapy. [employer] drug information is an informational resource designed to assist licensed healthcare practitioners in caring for their patients and/or to serve consumers viewing this service as a supplement to, and not a substitute for, the expertise, skill, knowledge and judgment of healthcare practitioners. The absence of a warning for a given drug or drug combination in no way should be construed to indicate that the drug or drug combination is safe, effective or appropriate for any given patient. [facility] does not assume any responsibility for any aspect of healthcare administered with the aid of information [facility] provides. The information contained herein is not intended to cover all possible uses, directions, precautions, warnings, drug interactions, allergic reactions, or adverse effects. If you have questions about the drugs you are taking, check with your doctor, nurse or pharmacist. Copyright 6609-3708 [facility], [facility]. Version: 10. Revision Date: 04/05/2021. Education Materials Anxiety Reaction Anxiety is the feeling we all get when we think something bad might happen. It is a normal response to stress and usually causes only a mild reaction. When anxiety becomes more severe, it can interfere with daily life. In some cases, you may not even be aware of what it is you re anxious about. There may also be a genetic link or it may be a learned behavior in the home. Both psychological and physical triggers cause stress reaction. It's often a response to fear or emotional stress, real or imagined. This stress may come from home, family, work, or social relationships. During an anxiety reaction, you may feel: Helpless Nervous Depressed Irritable Your body may show signs of anxiety in many ways. You may experience: Dry mouth Shakiness Dizziness Weakness Trouble breathing Breathing fast (hyperventilating) Chest pressure Sweating Headache Nausea Diarrhea Tiredness Inability to sleep Sexual problems Home care Try to locate the sources of stress in your life. They may not be obvious. These may include: oDaily hassles of life (such as traffic jams, missed appointments, or car troubles) oMajor life changes, both good (new baby or job promotion) and bad (loss of job or loss of loved one) oOverload: feeling that you have too many responsibilities and can't take care of all of them at once oFeeling helpless or feeling that your problems are beyond what you re able to solve Notice how your body reacts to stress. Learn to listen to your body signals. This will help you take action before the stress becomes severe. When you can, do something about the source of your stress. (Avoid hassles, limit the amount of change that happens in your life at one time and take a break when you feel overloaded). Unfortunately, many stressful situations can't be avoided. It is necessary to learn how to better manage stress. There are many proven methods that will reduce your anxiety. These include simple things like exercise, good nutrition, and adequate rest. Also, there are certain techniques that are helpful: oRelaxation oBreathing exercises oVisualization oBiofeedback oMeditation For more information about this, consult your healthcare provider or go to a local bookstore and review the many books and tapes available on this subject. Follow-up care If you feel that your anxiety is not responding to self-help measures, contact your healthcare provider or make an appointment with a counselor. You may need short-term psychological counseling and temporary medicine to help you manage stress. Call 911 Call 911 if any of these happen: Trouble breathing Confusion Drowsiness or trouble wakening Fainting or loss of consciousness Rapid heart rate Seizure New chest pain that becomes more severe, lasts longer, or spreads into your shoulder, arm, neck, jaw, or back When to seek medical advice Call your healthcare provider right away if any of these happen: Your symptoms get worse Severe headache not relieved by rest and mild pain reliever [phone] [employer]. [address] [place] [address]. All rights reserved. This information is not intended as a substitute for professional medical care. Always follow your healthcare professional's instructions. Additional Information VACCINATE! IT SAVES LIVES! Members of the community who have not yet received the COVID-19 vaccine and would like to receive it can visit one of [facility] vaccine clinics. There are many vaccine clinic locations within the [facility]. For locations and available times, please visit [email or web address] It is important to note that some COVID mobile vaccine clinics are held outdoors and may be canceled in rainy or stormy conditions. To learn more about pediatric vaccinations (ages 5-11), we invite you to visit the [facility] webpage. [email or web address]/p [email or web address]-Rmxln-Dywczraavhi-Freq nsjlep-[email or web address]-Bfjnevxlf.[email or web address] To learn more about the COVID-19 vaccine, we invite you to visit the CDC website for a list of frequently asked questions. https://www.cdc.gov/coronavirus/ 2019-ncov/vaccines/faq.html [facility] Patient Portal Access Instructions: Stay connected with your healthcare team and access your personal medical information anytime with the [employer] Patient Portal. If you would like a full copy of your medical records please contact the [facility] Medical Records Department Sunday through Sunday between 8a.m. and 4:30p.m. Please follow the directions below to access the portal: 1.Access the email account you provided upon registration to the [facility].2.Look for an invitation email from [facility].3.Open the email and access the invitation link: Accept Invitation to [facility]4.Fill in the required lugo to create your account. Sign into [email or web address] with your username and password that you created in the above steps to stay up to date. You can then view a summary of results, a summary of your visits, and the ability to download your summaries to your computer or send the information securely to a physician. Remember that your healthcare information is confidential, so carefully consider who you will allow to register on the [employer] Patient Portal for access to your information. You can also access the [employer] Patient Portal on the [employer]isa. Simply click on Health Records under Health Data and then click on the [email or web address] logo. HOW TO SAFELY DISPOSE OF PRESCRIPTION MEDICATIONS Please use one of the following methods to safely dispose of your unused medications. 1.Use a drug disposal kit: the drug disposal pouch allows you to safely discard your old and unused drugs. Ask your nurse to give you one when you are discharged.2.Visit a local take-back location: Many local pharmacies and police departments have programs that collect old and unwanted prescription drugs. Call your local pharmacy or go to http://bit.[employer]/2G3Wx4f to find one close to you.3.Make use of household items: Use cat litter or old coffee grounds to dispose medications if other options are not available. Mix your drugs with these household products, seal them in an airtight container and throw it into the garbage. Call [facility]: [phone] to be sure your drugs can be disposed of in this way. Some medicines may require a different approach.4.Never flush your medications down the toilet. IF YOU HAVE BEEN PRESCRIBED AN OPIOIDS FOR PAIN If you have been prescribed an opioid (such as hydrocodone, oxycodone or morphine), it is critical to understand the possible side effects and risks of opioid pain medications. Even when taken as directed, opioids can have several side effects including: Tolerance, meaning you might need to take more of a medication for the same pain relief. Nausea, vomiting and/or constipation. Sleepiness, dizziness, dry mouth, confusion, depression or itching. Physical dependence, meaning you have withdrawal symptoms when a medication is stopped ? this can develop within a few days. KNOW YOUR RESPONSIBILITIES It is important to know exactly how much and how often to take the opioid pain medications you are prescribed. Never take opioids in higher amounts or more often than prescribed. Do not combine opioids with alcohol or other drugs that cause drowsiness, such as benzodiazepines, also known as benzos, including diazepam and alprazolam, muscle relaxants or sleep aids. Never sell or share prescription opioids. This is illegal. Store opioids in a secure place and out of reach of others (including children, family, friends and visitors). The last page(s) of this document has been signed and retained as a CHART COPY Signatures Patient Education Materials Anxiety Reaction Medication Leaflets lorazepam (oral) My discharge plan and instructions have been reviewed and explained to me and I,HELEN ROLAND understand my current condition and have read and understand these discharge instructions. I have received a written copy of the plan/instructions. If I have questions, I am aware that I should contact my doctor. 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: Relationship to Patient: Witness Name/Signature: Date/Time: [facility] 06-20-2022 Hospital Discharg e instructions Patient Education 06/20/2022 10:13:03 Thyroid Antithyroglobulin Antibody Thyroid Antithyroglobulin Antibody Does this test have other names? Thyroid antibody test, thyroglobulin antibody test What is this test? This blood test looks for antibodies made by your body in response to thyroglobulin. This is a protein made by the thyroid gland. The thyroid is a small, butterfly-shaped gland near the base of your throat, above your collarbone. It makes the hormones T3 and T4. These hormones help control your metabolism, the process in which your body uses energy. These hormones affect your energy levels, mood, weight, and other important aspects of your health. The thyroglobulin antibody test can help diagnose thyroid problems. These include Saritha's thyroiditis and autoimmune thyroid disease. Why do I need this test? You may need this test if your healthcare provider thinks that you have a thyroid disorder. Thyroglobulin antibodies may be found in people who have a thyroid problem. You may have an underactive thyroid (hypothyroidism) or overactive thyroid (hyperthyroidism). Thyroglobulin antibodies attack thyroglobulin proteins and can destroy the thyroid gland. You may have this test to confirm the results of a thyroglobulin test. This test measures levels of the thyroglobulin protein. If you've been treated for thyroid cancer, this test could be part of regular checkups to monitor your condition. Symptoms of overactive thyroid include: Feeling weak and tired Trembling hands and fingers Losing weight Feeling anxious, nervous, or irritable Sweating heavily Fast or irregular heartbeat Low tolerance for heat Symptoms of underactive thyroid include: Digestive problems, including constipation Problems with menstruation Tiredness and a lack of energy Dry hair and skin A frequent feeling of being cold Weight gain Depression Forgetfulness Painful joints What other tests might I have along with this test? You may also have blood tests to measure levels of other hormones involved in thyroid functions. These are: Thyroid-stimulating hormone (TSH), which is made in the pituitary gland T4 hormone, also known as thyroxine T3 hormone, also known as triiodothyronine You may also have a thyroglobulin test. What do my test results mean? Test results may vary depending on your age, gender, health history, the method used for the test, and other things. Your test results may not mean you have a problem. Ask your healthcare provider what your test results mean for you. Negative test results mean you have no thyroglobulin antibodies in your blood. A positive test result means that you have thyroglobulin antibodies in your blood. This may mean you have a problem with your thyroid gland. A positive thyroglobulin antibody test result may also mean that your thyroglobulin test measurement is incorrect. How is this test done? The test is done with a blood sample. A needle is used to draw blood from a vein in your arm or hand. Does this test pose any risks? Having a blood test with a needle carries some risks. These include bleeding, infection, bruising, and feeling lightheaded. When the needle pricks your arm or hand, you may feel a slight sting or pain. Afterward, the site may be sore. What might affect my test results? Taking thyroid hormone medicines can affect your test results. How do I get ready for this test? Ask your healthcare provider if you should skip any medicines you are taking on the day of your test. You may also be asked to not eat the night before the test. In addition, be sure your provider knows about all medicines, herbs, vitamins, and supplements you are taking. This includes medicines that don't need a prescription and any illegal drugs you may use. 7616-5501 [employer]. [address] [place] [address]. All rights reserved. This information is not intended as a substitute for professional medical care. Always follow your healthcare professional's instructions. Follow Up Care 06/20/2022 08:22:17 With:MILKA SCHNEIDER Address: [address] [place] [address] [place] [address] [phone] When:1-2 days [facility] 06-20-2022 Note Discharge Instructions Thank you for allowing [facility] to assist you with your healthcare needs. The following is important discharge information regarding your hospital visit. Diagnosis from Today's Visit Anxiety Involuntary movement What to Do Next Instructions from Your Care Team No qualifying data available. Post Acute Orders No qualifying data available. You Need to Schedule the Following Appointments Follow Up with MILKA SCHNEIDER When Within 1-2 days Where: [address] [place] [address] [phone] Allergies Imitrex (tunnel vision) azithromycin Medications Please ask your primary doctor or pharmacist before taking any other medication not listed, including over the counter drugs, herbal medications, vitamins and or supplements as they may interact with your home medications. What How Much When Why Instructions Last Dose Changed LORazepam (Ativan 1 mg oral tablet) 1 tab(s) by mouth Three (3) times a day as needed for as needed for anxiety Anxiety Duration: 5 Days Printed Prescription Changed LORazepam (Ativan 1 mg oral tablet) 1 tab(s) by mouth Three (3) times a day as needed for as needed for anxiety Anxiety Duration: 7 Days Unchanged estradiol (estradiol 1 mg oral tablet) 1 tab(s) by mouth Once a day Unchanged hydrOXYzine (Vistaril) by mouth Four (4) times a day Unchanged levothyroxine (levothyroxine 150 mcg (0.15 mg) oral tablet) 1 tab(s) by mouth Once a day Unchanged levothyroxine (levothyroxine 50 mcg (0.05 mg) oral tablet) 1 tab(s) by mouth Once a day Anxiety Unchanged losartan by mouth Once a day Unchanged melatonin Daily at bedtime Unchanged nabumetone (nabumetone 500 mg oral tablet) 2 tab(s) by mouth Two (2) times a day Duration: 14 Days Unchanged omeprazole (PriLOSEC OTC 20 mg oral delayed release tablet) 1 tab(s) by mouth Once a day before a meal Upper abdominal pain Anxiety Unchanged potassium chloride Please take this list to your next doctor s visit. Bring all medications you take, including over the counter medications, herbals and other supplements with you to your doctor s visit. Patients and families are reminded to discard old lists and to update any records with all medication providers or retail pharmacies. Medication Leaflets lorazepam (oral) (amanda A ze pastora) Ativan, Lorazepam Intensol, Loreev XR What is the most important information I should know about lorazepam? Lorazepam can slow or stop your breathing, especially if you have recently used an opioid medication or alcohol. MISUSE OF THIS MEDICINE CAN CAUSE ADDICTION, OVERDOSE, OR . Keep this medicine where others cannot get to it. Do not stop using lorazepam without asking your doctor. You may have life-threatening withdrawal symptoms if you stop using the medicine suddenly after long-term use. Some withdrawal symptoms may last up to 12 months or longer. Get medical help right away if you stop using lorazepam and have symptoms such as: unusual muscle movements, being more active or talkative, sudden and severe changes in mood or behavior, confusion, hallucinations, seizures, or thoughts about suicide. What is lorazepam? Lorazepam is a benzodiazepine (vkh-clb-mva-AZE-eh-peen) that is used to treat anxiety disorders. Lorazepam may also be used for purposes not listed in this medication guide. What should I discuss with my healthcare provider before taking lorazepam? You should not use lorazepam if you have: narrow-angle glaucoma; or a history of allergic reaction to any benzodiazepine (lorazepam, alprazolam, diazepam, Valium, Xanax, Versed, Klonopin, and others). Tell your doctor if you have ever had: asthma, chronic obstructive pulmonary disease (COPD), sleep apnea, or other breathing disorder; drug or alcohol addiction; depression, mood problems, or suicidal thoughts or behavior; kidney or liver disease; seizures; or an allergy to aspirin or yellow food dye. Tell your doctor if you are or plan to become . If you use lorazepam during , your baby could be born with life-threatening withdrawal symptoms, and may need medical treatment for several weeks. You should not breastfeed. If you do breastfeed, tell your doctor if you notice drowsiness, feeding problems, or slow weight gain in the nursing baby. Not approved for use by anyone younger than 12 years old. Extended-release lorazepam should not be used by anyone younger than 18 years old. How should I take lorazepam? Follow the directions on your prescription label and read all medication guides or instruction sheets. Never use lorazepam in larger amounts, or for longer than prescribed. Tell your doctor if you feel an increased urge to use more of this medicine. Never share this medicine with another person, especially someone with a history of drug abuse or addiction. MISUSE CAN CAUSE ADDICTION, OVERDOSE, OR . Keep the medication in a place where others cannot get to it. Selling or giving away this medicine is against the law. Measure the oral concentrate (liquid) with the supplied measuring device (not a kitchen spoon). Mix the liquid with water, juice, soda, or soft food such as applesauce or pudding. Swallow this mixture right away. Swallow the extended-release capsule whole and do not crush, chew, break, or open it. If you cannot swallow a capsule whole, open it and mix the medicine with applesauce. Swallow the mixture right away without chewing. Then drink a glass of water. Do not stop using lorazepam without asking your doctor. You may have life-threatening withdrawal symptoms if you stop using the medicine suddenly after long-term use. Store tightly closed at room temperature, away from moisture and heat. Store the liquid form of lorazepam in the refrigerator. Throw away any liquid not used within 90 days. Keep your medicine in a place where no one can use it improperly. What happens if I miss a dose? Take the medicine as soon as you can, but skip the missed dose if it is almost time for your next dose. Do not take two doses at one time. What happens if I overdose? Seek emergency medical attention or call the Poison Help line at . An overdose of lorazepam can be fatal if you take it with alcohol, opioid medicine, or other drugs that cause drowsiness or slow your breathing. Overdose symptoms may include severe drowsiness, confusion, slurred speech, feeling restless, muscle weakness, loss of balance or coordination, feeling light-headed, slow heartbeats, weak or shallow breathing, or coma. What should I avoid while taking lorazepam? Avoid drinking alcohol. Dangerous side effects or could occur. Avoid driving or hazardous activity until you know how this medicine will affect you. Dizziness or drowsiness can cause falls, accidents, or severe injuries. What are the possible side effects of lorazepam? Get emergency medical help if you have signs of an allergic reaction: hives; difficulty breathing; swelling of your face, lips, tongue, or throat. Lorazepam can slow or stop your breathing, especially if you have recently used an opioid medication or alcohol. A person caring for you should seek emergency medical attention if you have slow breathing with long pauses, blue colored lips, or if you are hard to wake up. Call your doctor at once if you have: severe drowsiness; unusual changes in mood or behavior, being agitated or talkative; sudden restless feeling or excitement; thoughts of suicide or hurting yourself; confusion, aggression, hallucinations; sleep problems; vision changes; or dark urine, or jaundice (yellowing of the skin or eyes). Drowsiness or dizziness may last longer in older adults. Use caution to avoid falling or accidental injury. Common side effects may include: dizziness, drowsiness; weakness; or feeling unsteady. After you stop using lorazepam, get medical help right away if you have symptoms such as: unusual muscle movements, being more active or talkative, sudden and severe changes in mood or behavior, confusion, hallucinations, seizures, suicidal thoughts or actions. Some withdrawal symptoms may last up to 12 months or longer after stopping this medicine suddenly. Tell your doctor if you have ongoing anxiety, depression, problems with memory or thinking, trouble sleeping, ringing in your ears, a burning or prickly feeling, or a crawling sensation under your skin. This is not a complete list of side effects and others may occur. Call your doctor for medical advice about side effects. You may report side effects to FDA at 5-845-QJN-0430. What other drugs will affect lorazepam? Taking lorazepam with other drugs that make you sleepy or slow your breathing can cause dangerous side effects or . Ask your doctor before using opioid medication, a sleeping pill, a muscle relaxer, or medicine for anxiety or seizures. Tell your doctor about all your other medicines, especially: probenecid, aminophylline, or theophylline; medicine to treat mental illness; or medicine that contains an antihistamine (such as sleep medicine, cold or allergy medicine). This list is not complete. Other drugs may affect lorazepam, including prescription and bhiq-ukg-ddoxacd medicines, vitamins, and herbal products. Not all possible drug interactions are listed here. Where can I get more information? Your pharmacist can provide more information about lorazepam. Remember, keep this and all other medicines out of the reach of children, never share your medicines with others, and use this medication only for the indication prescribed. Every effort has been made to ensure that the information provided by [employer]. ('[employer]') is accurate, up-to-date, and complete, but no guarantee is made to that effect. Drug information contained herein may be time sensitive. [employer] information has been compiled for use by healthcare practitioners and consumers in the [place] and therefore [employer] does not warrant that uses outside of the [place] are appropriate, unless specifically indicated otherwise. [employer] drug information does not endorse drugs, diagnose patients or recommend therapy. [employer] drug information is an informational resource designed to assist licensed healthcare practitioners in caring for their patients and/or to serve consumers viewing this service as a supplement to, and not a substitute for, the expertise, skill, knowledge and judgment of healthcare practitioners. The absence of a warning for a given drug or drug combination in no way should be construed to indicate that the drug or drug combination is safe, effective or appropriate for any given patient. [employer] does not assume any responsibility for any aspect of healthcare administered with the aid of information [employer] provides. The information contained herein is not intended to cover all possible uses, directions, precautions, warnings, drug interactions, allergic reactions, or adverse effects. If you have questions about the drugs you are taking, check with your doctor, nurse or pharmacist. Copyright 0634-6038 [employer]. Version: 10.. Revision Date: 04/05/2021. Education Materials Thyroid Antithyroglobulin Antibody Does this test have other names? Thyroid antibody test, thyroglobulin antibody test What is this test? This blood test looks for antibodies made by your body in response to thyroglobulin. This is a protein made by the thyroid gland. The thyroid is a small, butterfly-shaped gland near the base of your throat, above your collarbone. It makes the hormones T3 and T4. These hormones help control your metabolism, the process in which your body uses energy. These hormones affect your energy levels, mood, weight, and other important aspects of your health. The thyroglobulin antibody test can help diagnose thyroid problems. These include Saritha's thyroiditis and autoimmune thyroid disease. Why do I need this test? You may need this test if your healthcare provider thinks that you have a thyroid disorder. Thyroglobulin antibodies may be found in people who have a thyroid problem. You may have an underactive thyroid (hypothyroidism) or overactive thyroid (hyperthyroidism). Thyroglobulin antibodies attack thyroglobulin proteins and can destroy the thyroid gland. You may have this test to confirm the results of a thyroglobulin test. This test measures levels of the thyroglobulin protein. If you've been treated for thyroid cancer, this test could be part of regular checkups to monitor your condition. Symptoms of overactive thyroid include: Feeling weak and tired Trembling hands and fingers Losing weight Feeling anxious, nervous, or irritable Sweating heavily Fast or irregular heartbeat Low tolerance for heat Symptoms of underactive thyroid include: Digestive problems, including constipation Problems with menstruation Tiredness and a lack of energy Dry hair and skin A frequent feeling of being cold Weight gain Depression Forgetfulness Painful joints What other tests might I have along with this test? You may also have blood tests to measure levels of other hormones involved in thyroid functions. These are: Thyroid-stimulating hormone (TSH), which is made in the pituitary gland T4 hormone, also known as thyroxine T3 hormone, also known as triiodothyronine You may also have a thyroglobulin test. What do my test results mean? Test results may vary depending on your age, gender, health history, the method used for the test, and other things. Your test results may not mean you have a problem. Ask your healthcare provider what your test results mean for you. Negative test results mean you have no thyroglobulin antibodies in your blood. A positive test result means that you have thyroglobulin antibodies in your blood. This may mean you have a problem with your thyroid gland. A positive thyroglobulin antibody test result may also mean that your thyroglobulin test measurement is incorrect. How is this test done? The test is done with a blood sample. A needle is used to draw blood from a vein in your arm or hand. Does this test pose any risks? Having a blood test with a needle carries some risks. These include bleeding, infection, bruising, and feeling lightheaded. When the needle pricks your arm or hand, you may feel a slight sting or pain. Afterward, the site may be sore. What might affect my test results? Taking thyroid hormone medicines can affect your test results. How do I get ready for this test? Ask your healthcare provider if you should skip any medicines you are taking on the day of your test. You may also be asked to not eat the night before the test. In addition, be sure your provider knows about all medicines, herbs, vitamins, and supplements you are taking. This includes medicines that don't need a prescription and any illegal drugs you may use. 8687-2699 [employer]. [address] [place] [address], [place] [address]. All rights reserved. This information is not intended as a substitute for professional medical care. Always follow your healthcare professional's instructions. Additional Information VACCINATE! IT SAVES LIVES! Members of the community who have not yet received the COVID-19 vaccine and would like to receive it can visit one of [facility] vaccine clinics. There are many vaccine clinic locations within the [facility]. For locations and available times, please visit [email or web address]. It is important to note that some COVID mobile vaccine clinics are held outdoors and may be canceled in rainy or stormy conditions. To learn more about pediatric vaccinations (ages 5-11), we invite you to visit the [facility] webpage. [email or web address] To learn more about the COVID-19 vaccine, we invite you to visit the [facility] website for a list of frequently asked questions. [email or web address] [email or web address] [employer] Patient Portal Access Instructions: Stay connected with your healthcare team and access your personal medical information anytime with the [employer] Patient Portal. If you would like a full copy of your medical records please contact the [facility] Medical Records Department Sunday through Sunday between 8a.m. and 4:30p.m. Please follow the directions below to access the portal: 1.Access the email account you provided upon registration to the hospital.2.Look for an invitation email from [facility].3.Open the email and access the invitation link: Accept Invitation to [employer]4.Fill in the required lugo to create your account. Sign into [email or web address] with your username and password that you created in the above steps to stay up to date. You can then view a summary of results, a summary of your visits, and the ability to download your summaries to your computer or send the information securely to a physician. Remember that your healthcare information is confidential, so carefully consider who you will allow to register on the [employer] Patient Portal for access to your information. You can also access the [facility] Patient Portal on the [employer]. Simply click on Health Records under Health Data and then click on the [email or web address] logo. HOW TO SAFELY DISPOSE OF PRESCRIPTION MEDICATIONS Please use one of the following methods to safely dispose of your unused medications. 1.Use a drug disposal kit: the drug disposal pouch allows you to safely discard your old and unused drugs. Ask your nurse to give you one when you are discharged.2.Visit a local take-back location: Many local pharmacies and police departments have programs that collect old and unwanted prescription drugs. Call your local pharmacy or go to http://[employer]/8Q4Qj2s to find one close to you.3.Make use of household items: Use cat litter or old coffee grounds to dispose medications if other options are not available. Mix your drugs with these household products, seal them in an airtight container and throw it into the garbage. Call [facility]: [phone] to be sure your drugs can be disposed of in this way. Some medicines may require a different approach.4.Never flush your medications down the toilet. IF YOU HAVE BEEN PRESCRIBED AN OPIOIDS FOR PAIN If you have been prescribed an opioid (such as hydrocodone, oxycodone or morphine), it is critical to understand the possible side effects and risks of opioid pain medications. Even when taken as directed, opioids can have several side effects including: Tolerance, meaning you might need to take more of a medication for the same pain relief. Nausea, vomiting and/or constipation. Sleepiness, dizziness, dry mouth, confusion, depression or itching. Physical dependence, meaning you have withdrawal symptoms when a medication is stopped ? this can develop within a few days. KNOW YOUR RESPONSIBILITIES It is important to know exactly how much and how often to take the opioid pain medications you are prescribed. Never take opioids in higher amounts or more often than prescribed. Do not combine opioids with alcohol or other drugs that cause drowsiness, such as benzodiazepines, also known as benzos, including diazepam and alprazolam, muscle relaxants or sleep aids. Never sell or share prescription opioids. This is illegal. Store opioids in a secure place and out of reach of others (including children, family, friends and visitors). The last page(s) of this document has been signed and retained as a CHART COP[employer] Patient Education Materials Thyroid Antithyroglobulin Antibody Medication Leaflets lorazepam (oral) My discharge plan and instructions have been reviewed and explained to me and I,HELEN ROLAND understand my current condition and have read and understand these discharge instructions. I have received a written copy of the plan/instructions. If I have questions, I am aware that I should contact my doctor. 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: Relationship to Patient: Witness Name/Signature: Date/Time: [facility] 05-27-2022 Note HNO ID: [id number] Author: Karen Quiroga APRN.[employer] Service: ? Author Type: Nurse Practitioner Type: Progress Notes Filed: 05/27/2022 10:53 AM Note Text: Subjective HPI Helen Roland is a 51 year old female who presents with a swollen area on her left axilla and a rash on her left breast and arm. She had breast reduction surgery in July of this year and since has had intermittent left upper arm swelling and pain. She had a vascular scan about a month ago to rule out blood clot. She also notes a hamster bite on her left upper arm- this hamster is her emotional support animal and he occasionally bites her. She has a healing puncture wound with surrounding bruising on her arm. She has not had a fever or chills. Review of Systems Constitutional: Negative for chills and fever. Respiratory: Negative. Cardiovascular: Negative. Musculoskeletal: Negative for falls, joint pain and myalgias. Skin: Positive for itching and rash. BP 128/82 Pulse 89 Temp 36.6 ?C (97.9 ?F) (Tympanic) Resp 18 Wt 76 kg (167 lb 9.6 oz) LMP 06/18/2019 SpO2 100% BMI 25.48 kg/m? PAST MEDICAL HISTORY Diagnosis Date GERD (gastroesophageal reflux disease) High-tone pelvic floor dysfunction 05/09/[address] 04/02 Migraine s/p botox Seasonal allergies PAST SURGICAL HISTORY Procedure Laterality Date CHOLECYSTECTOMY EGD TRANSORAL BIOPSY SINGLE/MULTIPLE 10/25/2011 ESOPHAGOGASTRODUODENOSCOPY TRANSORAL DIAGNOSTIC 04/08/2015 EGD KNEE ARTHROSCOPY/SURGERY Left LIG/TRNSXJ FLP TUBE ABDL/VAG APPR UNI/BI NEUROPLASTY AND/TRANSPOS MEDIAN NRV CARPAL TUNNE lt PAST SURGICAL HISTORY OF deviated septum TOTAL ABDOM HYSTERECTOMY 2020 Laparoscopic, uterus and ovaries removed ALLERGIES Azithromycin, Dust, Imitrex [Sumatriptan], and Milk MEDICATIONS levothyroxine (SYNTHROID) 50 mcg tablet Take 50 mcg by mouth daily before breakfast. escitalopram oxalate (LEXAPRO) 10 mg tablet fluticasone (FLONASE) 50 mcg/actuation nasal spray 1 [place] once daily. LORazepam (ATIVAN) 1 mg tablet Take 1 mg by mouth twice daily as needed. LINZESS 290 mcg capsule Take 290 mcg by mouth once daily. Omeprazole Magnesium 20 mg tablet Take 20 mg by mouth. hydrOXYzine pamoate (VISTARIL) 25 mg capsule Take 25 mg by mouth three times daily as needed. zolpidem (AMBIEN) 5 mg tablet Take 5 mg by mouth at bedtime as needed. losartan (COZAAR) 50 mg tablet Take 1 tablet by mouth once daily. doxycycline hyclate (VIBRAMYCIN) 100 mg capsule Take 1 capsule by mouth twice daily for 10 days. levothyroxine (SYNTHROID) 137 mcg tablet Take 1 tablet by mouth once daily. (Patient not taking: Reported on 05/27/2022) ondansetron orally disintegrating (ZOFRAN ODT) 4 mg disintegrating tablet Take 1 tablet by mouth every 12 hours as needed for Nausea/Vomiting. (Patient not taking: Reported on 05/27/2022) estradiol (ESTRACE) 1 mg tablet Take 1 mg by mouth once daily. (Patient not taking: Reported on 05/27/2022) FAMILY HISTORY Problem Relation Age of Onset Psychiatry Mother Seizures Mother Cancer Father prostate Social History Tobacco Use Smoking status: Former Packs/day: 0.50 Years: 10.00 Pack years: 5.00 Types: Cigarettes Quit date: 09/16/2012 Years since quittin.6 Smokeless tobacco: Never Substance Use Topics Alcohol use: No Drug use: No Objective Physical Exam Vitals and nursing note reviewed. Constitutional: Appearance: Normal appearance. Cardiovascular: Rate and Rhythm: Normal rate. Pulmonary: Effort: Pulmonary effort is normal. Chest: Lymphadenopathy: Upper Body: Left upper body: Axillary adenopathy present. Comments: Left axilla with firm, tender lymph node enlargement Skin: General: Skin is warm and dry. Capillary Refill: Capillary refill takes less than 2 seconds. Findings: Bruising, erythema and rash present. Neurological: Mental Status: She is alert. ASSESSMENT/PLAN: 1. Skin infection - ICD9: 686.9, ICD10: L08.9 - Begin treatment with doxycycline - No lymphangetic streaking, this was defined for patient to watch for and to seek medical care immediately if appears - warm compresses to left armpit area two to three times daily. - DOXYCYCLINE HYCLATE 100 MG CAPSULE - Follow-up with your PCP in 3-5 days if symptoms have not improved or sooner if symptoms worsen - Discussed red flags and need for immediate medical evaluation if any occur. - Discussed supportive care treatment with fluids, rest and analgesia. - Discussed expected course of illness Karen Quiroga APRN.[facility] 05-27-2022 History of Presen t illness Narrative Images from the original note were not included. Subjective HPI Helen Roland is a 51 year old female who presents with a swollen area on her left axilla and a rash on her left breast and arm. She had breast reduction surgery in July of this year and since has had intermittent left upper arm swelling and pain. She had a vascular scan about a month ago to rule out blood clot. She also notes a hamster bite on her left upper arm- this hamster is her emotional support animal and he occasionally bites her. She has a healing puncture wound with surrounding bruising on her arm. She has not had a fever or chills. Review of Systems Constitutional: Negative for chills and fever. Respiratory: Negative. Cardiovascular: Negative. Musculoskeletal: Negative for falls, joint pain and myalgias. Skin: Positive for itching and rash. BP 128/82 Pulse 89 Temp 36.6 C (97.9 F) (Tympanic) Resp 18 Wt 76 kg (167 lb 9.6 oz) LMP 06/18/2019 SpO2 100% BMI 25.48 kg/m PAST MEDICAL HISTORY Diagnosis Date GERD (gastroesophageal reflux disease) High-tone pelvic floor dysfunction 05/09/[address] nodules needs repeat ct 04/02 Migraine s/p botox Seasonal allergies PAST SURGICAL HISTORY Procedure Laterality Date CHOLECYSTECTOMY EGD TRANSORAL BIOPSY SINGLE/MULTIPLE 10/25/2011 ESOPHAGOGASTRODUODENOSCOPY TRANSORAL DIAGNOSTIC 04/08/2015 EGD KNEE ARTHROSCOPY/SURGERY Left LIG/TRNSXJ FLP TUBE ABDL/VAG APPR UNI/BI NEUROPLASTY &/TRANSPOS MEDIAN NRV CARPAL TUNNE lt PAST SURGICAL HISTORY OF deviated septum TOTAL ABDOM HYSTERECTOMY 2020 Laparoscopic, uterus and ovaries removed ALLERGIES Azithromycin, Dust, Imitrex [Sumatriptan], and Milk MEDICATIONS levothyroxine (SYNTHROID) 50 mcg tablet Take 50 mcg by mouth daily before breakfast. escitalopram oxalate (LEXAPRO) 10 mg tablet fluticasone (FLONASE) 50 mcg/actuation nasal spray 1 [place] once daily. LORazepam (ATIVAN) 1 mg tablet Take 1 mg by mouth twice daily as needed. LINZESS 290 mcg capsule Take 290 mcg by mouth once daily. Omeprazole Magnesium 20 mg tablet Take 20 mg by mouth. hydrOXYzine pamoate (VISTARIL) 25 mg capsule Take 25 mg by mouth three times daily as needed. zolpidem (AMBIEN) 5 mg tablet Take 5 mg by mouth at bedtime as needed. losartan (COZAAR) 50 mg tablet Take 1 tablet by mouth once daily. doxycycline hyclate (VIBRAMYCIN) 100 mg capsule Take 1 capsule by mouth twice daily for 10 days. levothyroxine (SYNTHROID) 137 mcg tablet Take 1 tablet by mouth once daily. (Patient not taking: Reported on 05/27/2022) ondansetron orally disintegrating (ZOFRAN ODT) 4 mg disintegrating tablet Take 1 tablet by mouth every 12 hours as needed for Nausea/Vomiting. (Patient not taking: Reported on 05/27/2022) estradiol (ESTRACE) 1 mg tablet Take 1 mg by mouth once daily. (Patient not taking: Reported on 05/27/2022) FAMILY HISTORY Problem Relation Age of Onset Psychiatry Mother Seizures Mother Cancer Father prostate Social History Tobacco Use Smoking status: Former Packs/day: 0.50 Years: 10.00 Pack years: 5.00 Types: Cigarettes Quit date: 09/16/2012 Years since quittin.6 Smokeless tobacco: Never Substance Use Topics Alcohol use: No Drug use: No Objective Physical Exam Vitals and nursing note reviewed. Constitutional: Appearance: Normal appearance. Cardiovascular: Rate and Rhythm: Normal rate. Pulmonary: Effort: Pulmonary effort is normal. Chest: Lymphadenopathy: Upper Body: Left upper body: Axillary adenopathy present. Comments: Left axilla with firm, tender lymph node enlargement Skin: General: Skin is warm and dry. Capillary Refill: Capillary refill takes less than 2 seconds. Findings: Bruising, erythema and rash present. Neurological: Mental Status: She is alert. ASSESSMENT/PLAN: 1. Skin infection - ICD9: 686.9, ICD10: L08.9 - Begin treatment with doxycycline - No lymphangetic streaking, this was defined for patient to watch for and to seek medical care immediately if appears - warm compresses to left armpit area two to three times daily. - DOXYCYCLINE HYCLATE 100 MG CAPSULE - Follow-up with your PCP in 3-5 days if symptoms have not improved or sooner if symptoms worsen - Discussed red flags and need for immediate medical evaluation if any occur. - Discussed supportive care treatment with fluids, rest and analgesia. - Discussed expected course of illness Karen Quiroga APRN.CNP documented in this encounter [facility] 05-27-2022 Instructions Karen Quiroga APRN.CNP - 05/27/2022 10:45 AM EST ASSESSMENT/PLAN: 1. Skin infection - ICD9: 686.9, ICD10: L08.9 - Begin treatment with doxycycline - No lymphangetic streaking, this was defined for patient to watch for and to seek medical care immediately if appears - warm compresses to left armpit area two to three times daily. - DOXYCYCLINE HYCLATE 100 MG CAPSULE - Follow-up with your PCP in 3-5 days if symptoms have not improved or sooner if symptoms worsen - Discussed red flags and need for immediate medical evaluation if any occur. - Discussed supportive care treatment with fluids, rest and analgesia. - Discussed expected course of illness Karen Quiroga APRN.[facility]NP [facility] PATIENT INFO SKIN INFECTION OVERVIEW Cellulitis is an infection of the skin and soft tissue of the skin. The infection is usually caused by bacteria that normally live on the skin, such as staphylococci ( Staph ) or streptococci ( Strep ). The infection develops when there is a break in the skin, such as a wound or injury, which may be minor. This allows bacteria to enter the skin and grow, causing infection and swelling. Most cases of cellulitis are mild and heal completely with antibiotic treatment. However, the infection can become severe and cause a bodywide infection if left untreated. It is important to seek medical care promptly if you could have a skin infection. SKIN INFECTION RISK FACTORS Certain conditions increase the risk of developing cellulitis. These include: Recent injury to the skin (a wound, abrasion, cut, recent shaving, or injection drug use) Swelling of the skin due to radiation therapy Current skin infection, such as athlete's foot or impetigo Accumulation of fluid (edema) due to poor circulation, heart failure, liver disease, or past surgery to remove lymph nodes Being overweight Chronic skin conditions, such as eczema or psoriasis However, cellulitis can also develop in people who have no known risk factors. SKIN INFECTION SYMPTOMS Cellulitis -- The most common symptom of cellulitis is pain or tenderness. Other cellulitis symptoms can include swelling, warmth, and redness in a distinct area of skin. These symptoms usually worsen and the redness may expand over the course of a few days. The skin is usually smooth and shiny rather than raised or bumpy. Fever and chills are not common. The most common areas of the body for cellulitis to develop include the legs and the arms; it can also develop around the eye, on the abdominal wall, in the mouth, and around the anus. Other skin infections -- Other types of skin infections include abscesses, furuncles ( boils ), and carbuncles. These usually cause a collection of pus under the skin. Skin that is raised, reddened, tender, and pus-filled may be caused by a skin infection known as methicillin-resistant Staphylococcus aureus (MRSA). DO I NEED TO BE EXAMINED? There are many types and causes of skin infections, and it is important to know the most likely cause of the infection before beginning treatment. Using the wrong treatment could allow the infection to worsen. To ensure that the correct treatment is used, it is important to be evaluated by a healthcare provider. SKIN INFECTION TREATMENT Cellulitis treatment includes antibiotics as well as treatment of any underlying condition that led to the skin infection. Elevate the area -- Elevating the arm or leg above the level of the heart can help to reduce swelling and speed healing. Keep the area clean and dry -- It is important to keep the infected area clean and dry. You can shower or bathe normally, and pat the area dry with a clean towel. You can use a bandage or gauze to protect the skin, if needed. Do not use any antibiotic ointments or creams. Antibiotics -- Most people with cellulitis are treated with an antibiotic that is taken by mouth for one to two weeks. The best antibiotic depends upon your situation. If the infection is severe, you may need to be hospitalized and treated with antibiotics given into a vein (IV). It is important to take the antibiotic exactly as recommended and to finish the entire course of treatment. Skipping doses or ending treatment early could potentially allow the bacteria to become resistant and require longer treatment. Time to heal -- The swelling, warmth, and redness should begin to improve within one to three days after starting antibiotics, although these symptoms can persist for two weeks. If the reddened area becomes larger, more swollen, or more tender, call your healthcare provider. He or she may want to reexamine you to determine if further testing or an alternate antibiotic are needed. SKIN INFECTION PROGNOSIS In most cases, you will recover completely from an episode of cellulitis without any complications. If you have skin infection risk factors talk to your healthcare provider to determine if there are steps you can take to minimize the risk of infections in the future. documented in this encounter [facility] 05-12-2022 Hospital Discharg e instructions Patient Education 05/12/2022 08:12:39 CHEST WALL STRAIN(CUSTOM) Chest Strain You have a chest strain. This happens when the muscles between the ribs stretch and tear. This may occur when you have a severe cough. It may also happen after strenuous lifting or twisting injuries of the upper back. A chest strain usually causes pain when you move or take a deep breath. The strain may take a few days to a few weeks to heal. Home care Follow these guidelines when caring for yourself at home: Rest. Don t do any heavy lifting or strenuous activity. Don t do any activity that causes pain. If you have a severe cough, use a cough syrup with dextromethorphan, unless another cough medicine was prescribed. If you have high blood pressure, check with your health care provider or pharmacist before using an [id number] cough medicine. You may use acetaminophen or ibuprofen to control pain, unless another medicine was prescribed. If you have chronic liver or kidney disease, talk with your provider before using these medicines. Also talk with your provider if you ve had a stomach ulcer or GI bleeding. Follow-up care Follow up with your health care provider, or as advised. When to seek medical advice Call your health care provider right away if any of these occur: A change in the type of pain. This means if it feels different, gets worse, lasts longer, or begins to spread into your shoulder, arm, neck, jaw, or back. Pain doesn t go away in 1 week Shortness of breath, difficulty breathing, or fast breathing Pain gets worse when you breathe Cough with dark-colored sputum (phlegm) or blood Weakness, dizziness, or fainting Fever of 101 F (38.3 C) or higher, or as directed by your health care provider [id number] [employer]. [address] [place] [address]. All rights reserved. This information is not intended as a substitute for professional medical care. Always follow your healthcare professional's instructions. Follow Up Care 05/12/2022 07:09:42 With:MILKA SCHNEIDER Address: [facility] [address] [place] [address]- [phone] When:2-4 days [facility] 05-12-2022 Note Discharge Instructions Thank you for allowing [facility] to assist you with your healthcare needs. The following is important discharge information regarding your hospital visit. Diagnosis from Today's Visit Rib/trunk pain-swelling What to Do Next Instructions from Your Care Team No qualifying data available. Post Acute Orders No qualifying data available. You Need to Schedule the Following Appointments Follow Up with MILKA SCHNEIDER When Within 2-4 days Where: [facility] [place] [address]- [phone] Allergies Imitrex (tunnel vision) azithromycin Medications Please ask your primary doctor or pharmacist before taking any other medication not listed, including over the counter drugs, herbal medications, vitamins and or supplements as they may interact with your home medications. What How Much When Why Instructions Last Dose New cyclobenzaprine (cyclobenzaprine 10 mg oral tablet) 1 tab(s) by mouth Three (3) times a day Duration: 5 Days Printed Prescription New lidocaine topical (Lidoderm 5% topical patch) 1 patch(es) Transdermal Once a day Duration: 30 Days Printed Prescription New nabumetone (nabumetone 500 mg oral tablet) 2 tab(s) by mouth Two (2) times a day Duration: 14 Days Printed Prescription Unchanged estradiol (estradiol 1 mg oral tablet) 1 tab(s) by mouth Once a day Unchanged hydrOXYzine (Vistaril) by mouth Four (4) times a day Unchanged levothyroxine (levothyroxine 150 mcg (0.15 mg) oral tablet) 1 tab(s) by mouth Once a day Unchanged levothyroxine (levothyroxine 50 mcg (0.05 mg) oral tablet) 1 tab(s) by mouth Once a day Anxiety Unchanged LORazepam (Ativan 1 mg oral tablet) 1 tab(s) by mouth Three (3) times a day as needed for as needed for anxiety Anxiety Duration: 7 Days Unchanged losartan by mouth Once a day Unchanged melatonin Daily at bedtime Unchanged omeprazole (PriLOSEC OTC 20 mg oral delayed release tablet) 1 tab(s) by mouth Once a day before a meal Upper abdominal pain Anxiety Unchanged potassium chloride Please take this list to your next doctor s visit. Bring all medications you take, including over the counter medications, herbals and other supplements with you to your doctor s visit. Patients and families are reminded to discard old lists and to update any records with all medication providers or retail pharmacies. Medication Leaflets cyclobenzaprine (marlene aparicio) Yanira Sellers Pac with Cyclobenzaprine, Fexmid What is the most important information I should know about cyclobenzaprine? You should not use cyclobenzaprine if you have a thyroid disorder, heart block, congestive heart failure, a heart rhythm disorder, or you have recently had a heart attack. Do not use cyclobenzaprine if you have taken an MAO inhibitor in the past 14 days, such as isocarboxazid, linezolid, phenelzine, rasagiline, selegiline, or tranylcypromine. What is cyclobenzaprine? Cyclobenzaprine is a muscle relaxant. It works by blocking nerve impulses (or pain sensations) that are sent to your brain. Cyclobenzaprine is used together with rest and physical therapy to relieve muscle spasms caused by painful conditions such as an injury. Cyclobenzaprine may also be used for purposes not listed in this medication guide. What should I discuss with my healthcare provider before taking cyclobenzaprine? You should not use cyclobenzaprine if you are allergic to it, or if you have: a thyroid disorder; heart block, heart rhythm disorder, congestive heart failure; or if you have recently had a heart attack. Cyclobenzaprine is not approved for use by anyone younger than 15 years old. Do not use cyclobenzaprine if you have taken an MAO inhibitor in the past 14 days. A dangerous drug interaction could occur. MAO inhibitors include isocarboxazid, linezolid, phenelzine, rasagiline, selegiline, and tranylcypromine. Some medicines can interact with cyclobenzaprine and cause a serious condition called serotonin syndrome. Be sure your doctor knows if you also take stimulant medicine, opioid medicine, herbal products, or medicine for depression, mental illness, Parkinson's disease, migraine headaches, serious infections, or prevention of nausea and vomiting. Ask your doctor before making any changes in how or when you take your medications. Tell your doctor if you have ever had: liver disease; glaucoma; enlarged prostate; or problems with urination. It is not known whether this medicine will harm an unborn baby. Tell your doctor if you are or plan to become . It may not be safe to breast-feed while using this medicine. Ask your doctor about any risk. Older adults may be more sensitive to the effects of this medicine. How should I take cyclobenzaprine? Follow all directions on your prescription label and read all medication guides or instruction sheets. Your doctor may occasionally change your dose. Use the medicine exactly as directed. Cyclobenzaprine is usually taken once daily for only 2 or 3 weeks. Follow your doctor's dosing instructions very carefully. Swallow the capsule whole and do not crush, chew, break, or open it. Take the medicine at the same time each day. Call your doctor if your symptoms do not improve after 3 weeks, or if they get worse. Store at room temperature away from moisture, heat, and light. What happens if I miss a dose? Take the medicine as soon as you can, but skip the missed dose if it is almost time for your next dose. Do not take two doses at one time. What happens if I overdose? Seek emergency medical attention or call the Poison Help line at . An overdose of cyclobenzaprine can be fatal. Overdose symptoms may include severe drowsiness, vomiting, fast heartbeats, tremors, agitation, or hallucinations. What should I avoid while taking cyclobenzaprine? Avoid driving or hazardous activity until you know how this medicine will affect you. Your reactions could be impaired. Avoid drinking alcohol. Dangerous side effects could occur. What are the possible side effects of cyclobenzaprine? Get emergency medical help if you have signs of an allergic reaction: hives; difficult breathing; swelling of your face, lips, tongue, or throat. Stop using cyclobenzaprine and call your doctor at once if you have: fast or irregular heartbeats; chest pain or pressure, pain spreading to your jaw or shoulder; or sudden numbness or weakness (especially on one side of the body), slurred speech, balance problems. Seek medical attention right away if you have symptoms of serotonin syndrome, such as: agitation, hallucinations, fever, sweating, shivering, fast heart rate, muscle stiffness, twitching, loss of coordination, nausea, vomiting, or diarrhea. Serious side effects may be more likely in older adults. Common side effects may include: drowsiness, tiredness; headache, dizziness; dry mouth; or upset stomach, nausea, constipation. This is not a complete list of side effects and others may occur. Call your doctor for medical advice about side effects. You may report side effects to FDA at 6-975-EQA-0764. What other drugs will affect cyclobenzaprine? Using cyclobenzaprine with other drugs that make you drowsy can worsen this effect. Ask your doctor before using opioid medication, a sleeping pill, a muscle relaxer, or medicine for anxiety or seizures. Tell your doctor about all your other medicines, especially: bupropion (Zyban, for smoking cessation); meperidine; tramadol; verapamil; cold or allergy medicine that contains an antihistamine (Benadryl and others); medicine to treat Parkinson's disease; medicine to treat excess stomach acid, stomach ulcer, motion sickness, or irritable bowel syndrome; medicine to treat overactive bladder; or bronchodilator asthma medication. This list is not complete. Other drugs may affect cyclobenzaprine, including prescription and [id number]-[id number] medicines, vitamins, and herbal products. Not all possible drug interactions are listed here. Where can I get more information? Your pharmacist can provide more information about cyclobenzaprine. Remember, keep this and all other medicines out of the reach of children, never share your medicines with others, and use this medication only for the indication prescribed. Every effort has been made to ensure that the information provided by [employer]. ('[employer]') is accurate, up-to-date, and complete, but no guarantee is made to that effect. Drug information contained herein may be time sensitive. [employer] information has been compiled for use by healthcare practitioners and consumers in the [place] and therefore [employer] does not warrant that uses outside of the [place] are appropriate, unless specifically indicated otherwise. [employer]'s drug information does not endorse drugs, diagnose patients or recommend therapy. [employer] drug information is an informational resource designed to assist licensed healthcare practitioners in caring for their patients and/or to serve consumers viewing this service as a supplement to, and not a substitute for, the expertise, skill, knowledge and judgment of healthcare practitioners. The absence of a warning for a given drug or drug combination in no way should be construed to indicate that the drug or drug combination is safe, effective or appropriate for any given patient. [employer] does not assume any responsibility for any aspect of healthcare administered with the aid of information [employer] provides. The information contained herein is not intended to cover all possible uses, directions, precautions, warnings, drug interactions, allergic reactions, or adverse effects. If you have questions about the drugs you are taking, check with your doctor, nurse or pharmacist. Copyright 9198-9118 [employer]. Version: 5.01. Revision Date: 03/13/2018. lidocaine topical (LYE aviles lopez TOP i yosvany) AneCream, Bactine, Glydo, LidaMantle, Lidoderm, LidoRx, Medi-Quik [place], RadiaGuard, RectiCare, Regenecare PAINTING [place], Solarcaine Cool Aloe What is the most important information I should know about lidocaine topical? An overdose of numbing medicine can cause fatal side effects if too much of the medicine is absorbed through your skin. Do not use large amounts of lidocaine topical, or cover treated skin areas with a bandage or plastic wrap without medical advice. Keep both used and unused lidocaine skin patches out of the reach of children or pets. The amount of lidocaine in the skin patches could be harmful to a child or pet who accidentally sucks on or swallows the patch. What is lidocaine topical? Lidocaine is a local anesthetic (numbing medication). There are many brands and forms of lidocaine available. Not all brands are listed on this leaflet. Lidocaine topical (for use on the skin) is used to reduce pain or discomfort caused by skin irritations such as sunburn, insect bites, poison mili, poison oak, poison sumac, and minor cuts, scratches, or james. Lidocaine topical is also used to treat rectal discomfort caused by hemorrhoids. Lidocaine intradermal device can be used in minor medical procedures such as venipuncture or peripheral intravenous cannulation. Lidocaine topical may also be used for purposes not listed in this medication guide. What should I discuss with my healthcare provider before using lidocaine topical? You should not use lidocaine topical if you are allergic to any type of numbing medicine. Fatal overdoses have occurred when numbing medicines were used without the advice of a medical doctor (such as during a cosmetic procedure like laser hair removal). However, overdose has also occurred in women treated with a numbing medicine before having a mammography. Be aware that many cosmetic procedures are performed without a medical doctor present. Tell your doctor if you have ever had: a blood cell disorder called methemoglobinemia (in you or a family member); liver disease; or if you take a heart rhythm medicine. Tell your doctor if you are or . If you apply lidocaine topical to your chest, avoid areas that may come into contact with the baby's mouth. How should I use lidocaine topical? Use this medicine exactly as directed on the label, or as it has been prescribed by your doctor. Do not apply this medicine in larger amounts than recommended. Improper use of lidocaine topical may result in . Lidocaine topical comes in many different forms (gel, spray, cream, lotion, ointment, liquid, skin patch, and others). Do not take by mouth. Topical medicine is for use only on the skin. If this medicine gets in your eyes, nose, mouth, rectum, or vagina, rinse with water. Read and carefully follow any Instructions for Use provided with your medicine. Ask your doctor or pharmacist if you do not understand these instructions. Use the smallest amount of medicine needed to numb the skin or relieve pain. Your body may absorb too much of this medicine if you use too much, if you apply it over large skin areas, or if you apply heat, bandages, or plastic wrap to treated skin areas. Skin that is cut or irritated may also absorb more topical medication than healthy skin. Do not apply this medicine to swollen skin areas or deep puncture wounds. Avoid using the medicine on skin that is raw or blistered, such as a severe burn or abrasion. Do not cover treated skin unless your doctor has told you to. Lidocaine topical may be applied with your finger tips or a cotton swab. Lidocaine intradermal device is applied by a healthcare provider. Store at room temperature away from moisture and heat. Keep both used and unused lidocaine topical skin patches out of the reach of children or pets. The amount of lidocaine in the skin patches could be harmful to a child or pet who accidentally sucks on or swallows the patch. Seek emergency medical attention if this happens. What happens if I miss a dose? Since lidocaine topical is used when needed, you may not be on a dosing schedule. Skip any missed dose if it's almost time for your next dose. Do not use two doses at one time. What happens if I overdose? Seek emergency medical attention or call the Poison Help line at . An overdose of numbing medicine can cause fatal side effects if too much of the medicine is absorbed through your skin and into your blood. Overdose symptoms may include uneven heartbeats, seizure (convulsions), slowed breathing, coma, or respiratory failure (breathing stops). Lidocaine applied to the skin is not likely to cause an overdose unless you apply more than the recommended dose. What should I avoid while using lidocaine topical? Avoid touching the sticky side of a lidocaine skin patch while applying it. Avoid accidentally injuring treated skin areas while they are numb. Avoid coming into contact with very hot or very cold surfaces. What are the possible side effects of lidocaine topical? Get emergency medical help if you have signs of an allergic reaction: hives; difficulty breathing; swelling of your face, lips, tongue, or throat. Call your doctor at once if you have: severe headache or vomiting; severe burning, stinging, or irritation where the medicine was applied; swelling or redness; sudden dizziness or drowsiness after medicine is applied; confusion, problems with speech or vision, ringing in your ears; or unusual sensations of temperature. Common side effects include: mild irritation where the medication is applied; or numbness in places where the medicine is accidentally applied. This is not a complete list of side effects and others may occur. Call your doctor for medical advice about side effects. You may report side effects to FDA at 0-796-SGW-1788. What other drugs will affect lidocaine topical? Medicine used on the skin is not likely to be affected by other drugs you use. But many drugs can interact with each other. Tell each of your health care providers about all medicines you use, including prescription and brgt-gof-cntnfkx medicines, vitamins, and herbal products. Where can I get more information? Your pharmacist can provide more information about lidocaine topical. Remember, keep this and all other medicines out of the reach of children, never share your medicines with others, and use this medication only for the indication prescribed. Every effort has been made to ensure that the information provided by [employer] is accurate, up-to-date, and complete, but no guarantee is made to that effect. Drug information contained herein may be time sensitive. [employer] information has been compiled for use by healthcare practitioners and consumers in the [place] and therefore [employer] does not warrant that uses outside of the [place] are appropriate, unless specifically indicated otherwise. [employer] drug information does not endorse drugs, diagnose patients or recommend therapy. [employer] drug information is an informational resource designed to assist licensed healthcare practitioners in caring for their patients and/or to serve consumers viewing this service as a supplement to, and not a substitute for, the expertise, skill, knowledge and judgment of healthcare practitioners. The absence of a warning for a given drug or drug combination in no way should be construed to indicate that the drug or drug combination is safe, effective or appropriate for any given patient. [employer] does not assume any responsibility for any aspect of healthcare administered with the aid of information [facility] provides. The information contained herein is not intended to cover all possible uses, directions, precautions, warnings, drug interactions, allergic reactions, or adverse effects. If you have questions about the drugs you are taking, check with your doctor, nurse or pharmacist. Copyright 8414-[address] [facility]. Version: 9.02. Revision Date: 11/01/2021. nabumetone (na BUE me tone) Relafen What is the most important information I should know about nabumetone? Nabumetone can increase your risk of fatal heart attack or stroke. Do not use this medicine just before or after heart bypass surgery (coronary artery bypass graft, or CABG). Nabumetone may also cause stomach or intestinal bleeding, which can be fatal. What is nabumetone? Nabumetone is a nonsteroidal anti-inflammatory drug (NSAID). Nabumetone works by reducing hormones that cause inflammation and pain in the body. Nabumetone is used to relieve the symptoms of rheumatoid arthritis or osteoarthritis. Nabumetone may also be used for purposes not listed in this medication guide. What should I discuss with my healthcare provider before taking nabumetone? Nabumetone can increase your risk of fatal heart attack or stroke, even if you don't have any risk factors. Do not use this medicine just before or after heart bypass surgery (coronary artery bypass graft, or CABG). Nabumetone may also cause stomach or intestinal bleeding, which can be fatal. These conditions can occur without warning while you are using nabumetone, especially in older adults. You should not use nabumetone if you are allergic to it, or if you have ever had an asthma attack or severe allergic reaction after taking aspirin or an NSAID. Tell your doctor if you have ever had: heart disease, high blood pressure, high cholesterol, diabetes, or if you smoke; a heart attack, stroke, or blood clot; stomach ulcers or bleeding; asthma; liver or kidney disease; or fluid retention. If you are , you should not take nabumetone unless your doctor tells you to. Taking an NSAID during the last 20 weeks of can cause serious heart or kidney problems in the unborn baby and possible complications with your . You should not breastfeed while using this medicine. Nabumetone is not approved for use by anyone younger than 18 years old. How should I take nabumetone? Follow all directions on your prescription label and read all medication guides. Your doctor may occasionally change your dose. Use the lowest dose that is effective in treating your condition. You may take nabumetone with or without food. If you use this medicine long-term, you may need frequent medical tests. Store at room temperature away from moisture and heat. Keep the bottle tightly closed when not in use. What happens if I miss a dose? Take the medicine as soon as you can, but skip the missed dose if it is almost time for your next dose. Do not take two doses at one time. What happens if I overdose? Seek emergency medical attention or call the Poison Help line at . What should I avoid while taking nabumetone? Avoid drinking alcohol. It may increase your risk of stomach bleeding. Ask a doctor or pharmacist before using other medicines for pain, fever, swelling, or cold/flu symptoms. They may contain ingredients similar to nabumetone (such as aspirin, ibuprofen, ketoprofen, or naproxen). Nabumetone could make you sunburn more easily. Avoid sunlight or tanning beds. Wear protective clothing and use sunscreen (SPF 30 or higher) when you are outdoors. What are the possible side effects of nabumetone? Get emergency medical help if you have signs of an allergic reaction (hives, sneezing, runny or stuffy nose, wheezing, difficult breathing, swelling in your face or throat) or a severe skin reaction (fever, sore throat, burning eyes, skin pain, red or purple skin rash with blistering and peeling). Get emergency medical help if you have signs of a heart attack or stroke: chest pain spreading to your jaw or shoulder, sudden numbness or weakness on one side of the body, slurred speech, feeling short of breath. Stop using nabumetone and call your doctor at once if you have: shortness of breath (even with mild exertion); swelling or rapid weight gain; the first sign of any skin rash, no matter how mild; signs of stomach bleeding--bloody or tarry stools, coughing up blood or vomit that looks like coffee grounds; liver problems--nausea, upper stomach pain, itching, tired feeling, flu-like symptoms, loss of appetite, dark urine, thong-colored stools, jaundice (yellowing of the skin or eyes); kidney problems--little or no urinating, painful or difficult urination, swelling in your feet or ankles, feeling tired or short of breath; or low red blood cells (anemia)--pale skin, unusual tiredness, feeling light-headed or short of breath, cold hands and feet. Common side effects may include: stomach pain, indigestion, nausea; diarrhea, constipation, gas; swelling in your hands and feet; headache, dizziness; itching, skin rash; or ringing in your ears. This is not a complete list of side effects and others may occur. Call your doctor for medical advice about side effects. You may report side effects to FDA at 5-631-WWI-4961. What other drugs will affect nabumetone? Ask your doctor before using nabumetone if you take an antidepressant. Taking certain antidepressants with an NSAID may cause you to bruise or bleed easily. Tell your doctor about all your other medicines, especially: lithium; methotrexate; a blood thinner (warfarin, Coumadin, Jantoven); heart or blood pressure medication, including a diuretic or 'water pill'; or steroid medicine (such as prednisone). This list is not complete. Other drugs may affect nabumetone, including prescription and gxlj-xxq-ebpoprn medicines, vitamins, and herbal products. Not all possible drug interactions are listed here. Where can I get more information? Your pharmacist can provide more information about nabumetone. Remember, keep this and all other medicines out of the reach of children, never share your medicines with others, and use this medication only for the indication prescribed. Every effort has been made to ensure that the information provided by [employer] is accurate, up-to-date, and complete, but no guarantee is made to that effect. Drug information contained herein may be time sensitive. [employer] information has been compiled for use by healthcare practitioners and consumers in the [place] and therefore [employer] does not warrant that uses outside of the [place] are appropriate, unless specifically indicated otherwise. [employer]'s drug information does not endorse drugs, diagnose patients or recommend therapy. [employer] drug information is an informational resource designed to assist licensed healthcare practitioners in caring for their patients and/or to serve consumers viewing this service as a supplement to, and not a substitute for, the expertise, skill, knowledge and judgment of healthcare practitioners. The absence of a warning for a given drug or drug combination in no way should be construed to indicate that the drug or drug combination is safe, effective or appropriate for any given patient. [facility] does not assume any responsibility for any aspect of healthcare administered with the aid of information [facility] provides. The information contained herein is not intended to cover all possible uses, directions, precautions, warnings, drug interactions, allergic reactions, or adverse effects. If you have questions about the drugs you are taking, check with your doctor, nurse or pharmacist. Copyright 9022-9259 [facility]. Version: 13.02. Revision Date: 07/07/2020. Education Materials Chest Strain You have a chest strain. This happens when the muscles between the ribs stretch and tear. This may occur when you have a severe cough. It may also happen after strenuous lifting or twisting injuries of the upper back. A chest strain usually causes pain when you move or take a deep breath. The strain may take a few days to a few weeks to heal. Home care Follow these guidelines when caring for yourself at home: Rest. Don t do any heavy lifting or strenuous activity. Don t do any activity that causes pain. If you have a severe cough, use a cough syrup with dextromethorphan, unless another cough medicine was prescribed. If you have high blood pressure, check with your health care provider or pharmacist before using an mmmc-noa-ldcrfpc cough medicine. You may use acetaminophen or ibuprofen to control pain, unless another medicine was prescribed. If you have chronic liver or kidney disease, talk with your provider before using these medicines. Also talk with your provider if you ve had a stomach ulcer or GI bleeding. Follow-up care Follow up with your health care provider, or as advised. When to seek medical advice Call your health care provider right away if any of these occur: A change in the type of pain. This means if it feels different, gets worse, lasts longer, or begins to spread into your shoulder, arm, neck, jaw, or back. Pain doesn t go away in 1 week Shortness of breath, difficulty breathing, or fast breathing Pain gets worse when you breathe Cough with dark-colored sputum (phlegm) or blood Weakness, dizziness, or fainting Fever of 101 F (38.3 C) or higher, or as directed by your health care provider [phone] [employer]. [address] [place] [address], [place] [address]. All rights reserved. This information is not intended as a substitute for professional medical care. Always follow your healthcare professional's instructions. Additional Information VACCINATE! IT SAVES LIVES! Members of the community who have not yet received the COVID-19 vaccine and would like to receive it can visit one of [facility] vaccine clinics. There are many vaccine clinic locations within the [facility]. For locations and available times, please visit [email or web address]. It is important to note that some COVID mobile vaccine clinics are held outdoors and may be canceled in rainy or stormy conditions. To learn more about pediatric vaccinations (ages 5-11), we invite you to visit the [facility] webpage. [email or web address] To learn more about the COVID-19 vaccine, we invite you to visit the [facility] website for a list of frequently asked questions. [email or web address] [facility] [employer] [facility] Patient Portal Access Instructions: Stay connected with your healthcare team and access your personal medical information anytime with the [employer] Patient Portal. If you would like a full copy of your medical records please contact the [facility] Medical Records Department Sunday through Sunday between 8a.m. and 4:30p.m. Please follow the directions below to access the portal: 1.Access the email account you provided upon registration to the [facility].2.Look for an invitation email from [facility].3.Open the email and access the invitation link: Accept Invitation to [employer]4.Fill in the required lugo to create your account. Sign into www.[email or web address] with your username and password that you created in the above steps to stay up to date. You can then view a summary of results, a summary of your visits, and the ability to download your summaries to your computer or send the information securely to a physician. Remember that your healthcare information is confidential, so carefully consider who you will allow to register on the [facility] Patient Portal for access to your information. You can also access the [facility] Patient Portal on the [employer] lisa. Simply click on Health Records under Health Data and then click on the [email or web address] logo. HOW TO SAFELY DISPOSE OF PRESCRIPTION MEDICATIONS Please use one of the following methods to safely dispose of your unused medications. 1.Use a drug disposal kit: the drug disposal pouch allows you to safely discard your old and unused drugs. Ask your nurse to give you one when you are discharged.2.Visit a local take-back location: Many local pharmacies and police departments have programs that collect old and unwanted prescription drugs. Call your local pharmacy or go to http://Signdat.[employer] Theory/4G9Ff9p to find one close to you.3.Make use of household items: Use cat litter or old coffee grounds to dispose medications if other options are not available. Mix your drugs with these household products, seal them in an airtight container and throw it into the garbage. Call [facility]: [phone] to be sure your drugs can be disposed of in this way. Some medicines may require a different approach.4.Never flush your medications down the toilet. IF YOU HAVE BEEN PRESCRIBED AN OPIOIDS FOR PAIN If you have been prescribed an opioid (such as hydrocodone, oxycodone or morphine), it is critical to understand the possible side effects and risks of opioid pain medications. Even when taken as directed, opioids can have several side effects including: Tolerance, meaning you might need to take more of a medication for the same pain relief. Nausea, vomiting and/or constipation. Sleepiness, dizziness, dry mouth, confusion, depression or itching. Physical dependence, meaning you have withdrawal symptoms when a medication is stopped ? this can develop within a few days. KNOW YOUR RESPONSIBILITIES It is important to know exactly how much and how often to take the opioid pain medications you are prescribed. Never take opioids in higher amounts or more often than prescribed. Do not combine opioids with alcohol or other drugs that cause drowsiness, such as benzodiazepines, also known as benzos, including diazepam and alprazolam, muscle relaxants or sleep aids. Never sell or share prescription opioids. This is illegal. Store opioids in a secure place and out of reach of others (including children, family, friends and visitors). The last page(s) of this document has been signed and retained as a CHART COPY Signatures Patient Education Materials CHEST WALL STRAIN(CUSTOM) Medication Leaflets cyclobenzaprine, lidocaine topical, nabumetone My discharge plan and instructions have been reviewed and explained to me and I,HELEN ROLAND understand my current condition and have read and understand these discharge instructions. I have received a written copy of the plan/instructions. If I have questions, I am aware that I should contact my doctor. 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: Relationship to Patient: Witness Name/Signature: Date/Time: [facility] 05-12-2022 Note ORIGINAL EXAMINATION: XRAY VIEWS OF THE LEFT RIBS 05/12/2022 7:38 am COMPARISON: None. HISTORY: ORDERING SYSTEM PROVIDED HISTORY: Reason for Exam: left rib pain IMPRESSION: No acute fracture or dislocation. Visualized left hemithorax is normal in appearance. Interpreted by: Darinel Zuñiga MD Preliminary Report By: Darinel Zuñiga MD Electronically signed By Darinel Zuñiga MD Dictated Date: 05/12/2022 8:05:37 AM Prelim Date: 05/12/2022 8:07:20 AM Sign Date: 05/12/2022 8:07:20 AM Ordering Provider: LINSEY FRIEDMAN [facility] 05-12-2022 Note ORIGINAL EXAMINATION: XRAY VIEWS OF THE LEFT RIBS 05/12/2022 7:38 am COMPARISON: None. HISTORY: ORDERING SYSTEM PROVIDED HISTORY: Reason for Exam: left rib pain IMPRESSION: No acute fracture or dislocation. Visualized left hemithorax is normal in appearance. Interpreted by: Darinel Zuñiga MD Preliminary Report By: Darinel Zuñiga MD Electronically signed By Darinel Zuñiga MD Dictated Date: 05/12/2022 8:05:37 AM Prelim Date: 05/12/2022 8:07:20 AM Sign Date: 05/12/2022 8:07:20 AM Ordering Provider: LINSEY FRIEDMAN [facility] 04-30-2022 Hospital Discharg e instructions Patient Education 04/30/2022 06:07:49 Abdominal Pain, Unknown Cause, (Female) Unknown Causes of Abdominal Pain (Female) The exact cause of your belly (abdominal) pain is not clear. This does not mean that this is something to worry about. Everyone likes to know the exact cause of the problem. But sometimes with belly pain, there is no clear-cut cause, and this could be a good thing. The good news is that your symptoms can be treated, and you will feel better. Your condition does not seem serious now. But sometimes the signs of a serious problem may take more time to appear. For this reason, it is important for you to watch for any new symptoms, problems, or worsening of your condition. Over the next few days, the abdominal pain may come and go. Or it may be constant. Other common symptoms can include nausea and vomiting. Sometimes it can be difficult to tell if you feel nauseous. You may just feel bad and not connect that feeling to nausea. Constipation, diarrhea, and a fever may go along with the pain. The pain may continue even if treated correctly over the following days. Depending on how things go, sometimes the cause can become clear and may need more or different treatment. Additional evaluations, medicines, or tests may also be needed. Home care Your healthcare provider may prescribe medicine for pain, symptoms, or an infection. Follow the healthcare provider's instructions for taking these medicines. General care Rest as much as you can until your next exam. No strenuous activities. Try to find positions that ease discomfort. A small pillow placed on the abdomen may help relieve pain. Something warm on your abdomen (such as a heating pad) may help, but be careful not to burn yourself. Diet Don t force yourself to eat, especially if having cramps, vomiting, or diarrhea. Water is important so you don't get dehydrated. Soup may also be good. Sports drinks may also help, especially if they are not too acidic. Don't drink sugary drinks as this can make things worse. Take liquids in small amounts. Don t guzzle them. Caffeine sometimes makes the pain and cramping worse. Don t take dairy products if you have vomiting or diarrhea. Don't eat large amounts at a time. Wait a few minutes between bites. Eat a diet low in fiber (called a low-residue diet). Foods allowed include refined breads, white rice, fruit and vegetable juices without pulp, tender meats. These foods will pass more easily through the intestine. Don t have whole-grain foods, whole fruits and vegetables, meats, seeds and nuts, fried or fatty foods, dairy, alcohol and spicy foods until your symptoms go away. Follow-up care Follow up with your healthcare provider, or as advised, if your pain does not begin to improve in the next 24 hours. Call 911 Call 911 if any of these occur: Trouble breathing Confusion Fainting or loss of consciousness Rapid heart rate Seizure When to seek medical advice Call your healthcare provider right away if any of these occur: Pain gets worse or moves to the right lower abdomen New or worsening vomiting or diarrhea Swelling of the abdomen Unable to pass stool for more than 3 days Fever of 100.4 F (38 C) or higher, or as directed by your healthcare provider. Blood in vomit or bowel movements (dark red or black color) Yellow color of eyes and skin (jaundice) Weakness, dizziness Chest, arm, back, neck, or jaw pain Unexpected vaginal bleeding or missed period Can't keep down liquids or water and you are getting dehydrated [id number] [employer]. [address] [place] [address]. All rights reserved. This information is not intended as a substitute for professional medical care. Always follow your healthcare professional's instructions. Follow Up Care 04/30/2022 05:37:14 With:MILKA SCHNEIDER Address: [address] [place] [address] [place] [address] [phone] When:2-4 days [facility] 04-30-2022 Note Discharge Instructions Thank you for allowing [facility] to assist you with your healthcare needs. The following is important discharge information regarding your hospital visit. Diagnosis from Today's Visit Upper abdominal pain Anxiety Abdominal pain x weeks Fatigue x weeks What to Do Next Instructions from Your Care Team No qualifying data available. Post Acute Orders No qualifying data available. You Need to Schedule the Following Appointments Follow Up with MILKA SCHNEIDER When Within 2-4 days Where: [address] [place] [address] [phone] Allergies Imitrex (tunnel vision) Medications Please ask your primary doctor or pharmacist before taking any other medication not listed, including over the counter drugs, herbal medications, vitamins and or supplements as they may interact with your home medications. What How Much When Why Instructions Last Dose New omeprazole (PriLOSEC OTC 20 mg oral delayed release tablet) 1 tab(s) by mouth Once a day before a meal Upper abdominal pain Anxiety Printed Prescription Unchanged estradiol (estradiol 1 mg oral tablet) 1 tab(s) by mouth Once a day Unchanged hydrOXYzine (Vistaril) by mouth Four (4) times a day Unchanged levothyroxine (levothyroxine 150 mcg (0.15 mg) oral tablet) 1 tab(s) by mouth Once a day Unchanged levothyroxine (levothyroxine 50 mcg (0.05 mg) oral tablet) 1 tab(s) by mouth Once a day Anxiety Unchanged LORazepam (Ativan 1 mg oral tablet) 1 tab(s) by mouth Three (3) times a day as needed for as needed for anxiety Anxiety Duration: 7 Days Unchanged losartan by mouth Once a day Unchanged melatonin Daily at bedtime Unchanged potassium chloride Please take this list to your next doctor s visit. Bring all medications you take, including over the counter medications, herbals and other supplements with you to your doctor s visit. Patients and families are reminded to discard old lists and to update any records with all medication providers or retail pharmacies. Education Materials Unknown Causes of Abdominal Pain (Female) The exact cause of your belly (abdominal) pain is not clear. This does not mean that this is something to worry about. Everyone likes to know the exact cause of the problem. But sometimes with belly pain, there is no clear-cut cause, and this could be a good thing. The good news is that your symptoms can be treated, and you will feel better. Your condition does not seem serious now. But sometimes the signs of a serious problem may take more time to appear. For this reason, it is important for you to watch for any new symptoms, problems, or worsening of your condition. Over the next few days, the abdominal pain may come and go. Or it may be constant. Other common symptoms can include nausea and vomiting. Sometimes it can be difficult to tell if you feel nauseous. You may just feel bad and not connect that feeling to nausea. Constipation, diarrhea, and a fever may go along with the pain. The pain may continue even if treated correctly over the following days. Depending on how things go, sometimes the cause can become clear and may need more or different treatment. Additional evaluations, medicines, or tests may also be needed. Home care Your healthcare provider may prescribe medicine for pain, symptoms, or an infection. Follow the healthcare provider's instructions for taking these medicines. General care Rest as much as you can until your next exam. No strenuous activities. Try to find positions that ease discomfort. A small pillow placed on the abdomen may help relieve pain. Something warm on your abdomen (such as a heating pad) may help, but be careful not to burn yourself. Diet Don t force yourself to eat, especially if having cramps, vomiting, or diarrhea. Water is important so you don't get dehydrated. Soup may also be good. Sports drinks may also help, especially if they are not too acidic. Don't drink sugary drinks as this can make things worse. Take liquids in small amounts. Don t guzzle them. Caffeine sometimes makes the pain and cramping worse. Don t take dairy products if you have vomiting or diarrhea. Don't eat large amounts at a time. Wait a few minutes between bites. Eat a diet low in fiber (called a low-residue diet). Foods allowed include refined breads, white rice, fruit and vegetable juices without pulp, tender meats. These foods will pass more easily through the intestine. Don t have whole-grain foods, whole fruits and vegetables, meats, seeds and nuts, fried or fatty foods, dairy, alcohol and spicy foods until your symptoms go away. Follow-up care Follow up with your healthcare provider, or as advised, if your pain does not begin to improve in the next 24 hours. Call 911 Call 911 if any of these occur: Trouble breathing Confusion Fainting or loss of consciousness Rapid heart rate Seizure When to seek medical advice Call your healthcare provider right away if any of these occur: Pain gets worse or moves to the right lower abdomen New or worsening vomiting or diarrhea Swelling of the abdomen Unable to pass stool for more than 3 days Fever of 100.4 F (38 C) or higher, or as directed by your healthcare provider. Blood in vomit or bowel movements (dark red or black color) Yellow color of eyes and skin (jaundice) Weakness, dizziness Chest, arm, back, neck, or jaw pain Unexpected vaginal bleeding or missed period Can't keep down liquids or water and you are getting dehydrated [id number] [employer]. [address] [place] [address], [place] [address]. All rights reserved. This information is not intended as a substitute for professional medical care. Always follow your healthcare professional's instructions. Additional Information VACCINATE! IT SAVES LIVES! Members of the community who have not yet received the COVID-19 vaccine and would like to receive it can visit one of [facility] vaccine clinics. There are many vaccine clinic locations within the [facility]. For locations and available times, please visit [email or web address]. It is important to note that some COVID mobile vaccine clinics are held outdoors and may be canceled in rainy or stormy conditions. To learn more about pediatric vaccinations (ages 5-11), we invite you to visit the [facility] webpage. [email or web address] To learn more about the COVID-19 vaccine, we invite you to visit the [facility] website for a list of frequently asked questions. [email or web address] [facility] Patient Portal Access Instructions: Stay connected with your healthcare team and access your personal medical information anytime with the [facility] Patient Portal. If you would like a full copy of your medical records please contact the [facility] Medical Records Department Sunday through Sunday between 8a.m. and 4:30p.m. Please follow the directions below to access the portal: 1.Access the email account you provided upon registration to the hospital.2.Look for an invitation email from [facility].3.Open the email and access the invitation link: Accept Invitation to [facility] [employer]4.Fill in the required lugo to create your account. Sign into [email or web address] with your username and password that you created in the above steps to stay up to date. You can then view a summary of results, a summary of your visits, and the ability to download your summaries to your computer or send the information securely to a physician. Remember that your healthcare information is confidential, so carefully consider who you will allow to register on the [facility] Patient Portal for access to your information. You can also access the [facility] Patient Portal on the [employer]. Simply click on Health Records under Health Data and then click on the [facility] logo. HOW TO SAFELY DISPOSE OF PRESCRIPTION MEDICATIONS Please use one of the following methods to safely dispose of your unused medications. 1.Use a drug disposal kit: the drug disposal pouch allows you to safely discard your old and unused drugs. Ask your nurse to give you one when you are discharged.2.Visit a local take-back location: Many local pharmacies and police departments have programs that collect old and unwanted prescription drugs. Call your local pharmacy or go to http://Signdat.Cloud Theory/4E4Qm3w to find one close to you.3.Make use of household items: Use cat litter or old coffee grounds to dispose medications if other options are not available. Mix your drugs with these household products, seal them in an airtight container and throw it into the garbage. Call [facility]: [phone] to be sure your drugs can be disposed of in this way. Some medicines may require a different approach.4.Never flush your medications down the toilet. IF YOU HAVE BEEN PRESCRIBED AN OPIOIDS FOR PAIN If you have been prescribed an opioid (such as hydrocodone, oxycodone or morphine), it is critical to understand the possible side effects and risks of opioid pain medications. Even when taken as directed, opioids can have several side effects including: Tolerance, meaning you might need to take more of a medication for the same pain relief. Nausea, vomiting and/or constipation. Sleepiness, dizziness, dry mouth, confusion, depression or itching. Physical dependence, meaning you have withdrawal symptoms when a medication is stopped ? this can develop within a few days. KNOW YOUR RESPONSIBILITIES It is important to know exactly how much and how often to take the opioid pain medications you are prescribed. Never take opioids in higher amounts or more often than prescribed. Do not combine opioids with alcohol or other drugs that cause drowsiness, such as benzodiazepines, also known as benzos, including diazepam and alprazolam, muscle relaxants or sleep aids. Never sell or share prescription opioids. This is illegal. Store opioids in a secure place and out of reach of others (including children, family, friends and visitors). The last page(s) of this document has been signed and retained as a CHART COPY Signatures Patient Education Materials Abdominal Pain, Unknown Cause, (Female) Medication Leaflets My discharge plan and instructions have been reviewed and explained to me and I,HELEN ROLAND understand my current condition and have read and understand these discharge instructions. I have received a written copy of the plan/instructions. If I have questions, I am aware that I should contact my doctor. 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: Relationship to Patient: Witness Name/Signature: Date/Time: [facility] 04-20-2022 Hospital Discharg e instructions Patient Education 04/20/2022 07:58:59 Hyperthyroidism Hyperthyroidism You have hyperthyroidism. This means you have a thyroid gland that makes too much thyroid hormone. This hormone is vital to body growth and metabolism. If you make too much thyroid hormone, many body processes speed up and may not work right. This can cause symptoms throughout the body. There are a number of causes of hyperthyroidism. The most common cause is Grave s disease. This occurs when the body s immune system causes the thyroid to grow and make more thyroid hormone than needed. Another form of hypothyroidism, called thyroiditis, occurs shortly after childbirth. Symptoms of hyperthyroidism include: Nervousness, anxiety, irritability Shaking (tremors) that affects the hands and fingers Weight loss despite having a normal or increased appetite Low tolerance to heat Sweating more than normal Fast or irregular heartbeat [employer] or irregular periods (women only) More frequent bowel movements Enlarged thyroid gland (goiter) Bulging eyes Problems sleeping Muscle weakness Fatigue Swelling of the hands, ankles, or feet (older adults only) Your healthcare provider will need to do some tests to see exactly which form of hypothyroidism you have. This is because the treatments are different. Treatment for hyperthyroidism may include taking medicines. For instance, antithyroid medicines may be prescribed. These help lower the amount of thyroid hormone made by the thyroid gland. Beta-blockers may be prescribed as well. Tips for taking medicines are given below. Radioiodine ablation or surgery may also be advised. Your healthcare provider will tell you more about these options if needed. Home care Tips for taking medicines Take any medicines you re prescribed as directed. Take your medicine at the same times each day. To decrease the chance of drug interactions, check with your pharmacist before using gcvz-ltt-kwajvog medicines with your prescribed medicines. Use a pillbox labeled with the days of the week. This will help you remember to take your medicine each day. Tell your provider if you have any side effects from your medicines that bother you. Never stop taking medicines on your own. If you do, your symptoms will return. General care Always talk with your provider before trying other medicines or treatments for your thyroid problem. If you see other healthcare providers, be sure to let them know about your thyroid problem. Follow-up care See your healthcare provider for checkups as advised. You may need regular tests to check the level of thyroid hormone in your blood. When to seek medical advice Call your healthcare provider right away if any of these occur: New symptoms occur Symptoms return, continue, or worsen even after treatment Extreme fatigue Puffy hands, face, or feet Confusion Call 911 Call 911 if any of these occur: Fainting Chest pain Shortness of breath or trouble breathing [phone] [employer]. [address] [place] [address], [place] [address]. All rights reserved. This information is not intended as a substitute for professional medical care. Always follow your healthcare professional's instructions. 04/20/2022 07:58:46 Anxiety Reaction Anxiety Reaction Anxiety is the feeling we all get when we think something bad might happen. It is a normal response to stress and usually causes only a mild reaction. When anxiety becomes more severe, it can interfere with daily life. In some cases, you may not even be aware of what it is you re anxious about. There may also be a genetic link or it may be a learned behavior in the home. Both psychological and physical triggers cause stress reaction. It's often a response to fear or emotional stress, real or imagined. This stress may come from home, family, work, or social relationships. During an anxiety reaction, you may feel: Helpless Nervous Depressed Irritable Your body may show signs of anxiety in many ways. You may experience: Dry mouth Shakiness Dizziness Weakness Trouble breathing Breathing fast (hyperventilating) Chest pressure Sweating Headache Nausea Diarrhea Tiredness Inability to sleep Sexual problems Home care Try to locate the sources of stress in your life. They may not be obvious. These may include: oDaily hassles of life (such as traffic jams, missed appointments, or car troubles) oMajor life changes, both good (new baby or job promotion) and bad (loss of job or loss of loved one) oOverload: feeling that you have too many responsibilities and can't take care of all of them at once oFeeling helpless or feeling that your problems are beyond what you re able to solve Notice how your body reacts to stress. Learn to listen to your body signals. This will help you take action before the stress becomes severe. When you can, do something about the source of your stress. (Avoid hassles, limit the amount of change that happens in your life at one time and take a break when you feel overloaded). Unfortunately, many stressful situations can't be avoided. It is necessary to learn how to better manage stress. There are many proven methods that will reduce your anxiety. These include simple things like exercise, good nutrition, and adequate rest. Also, there are certain techniques that are helpful: oRelaxation oBreathing exercises oVisualization oBiofeedback oMeditation For more information about this, consult your healthcare provider or go to a local bookstore and review the many books and tapes available on this subject. Follow-up care If you feel that your anxiety is not responding to self-help measures, contact your healthcare provider or make an appointment with a counselor. You may need short-term psychological counseling and temporary medicine to help you manage stress. Call 911 Call 911 if any of these happen: Trouble breathing Confusion Drowsiness or trouble wakening Fainting or loss of consciousness Rapid heart rate Seizure New chest pain that becomes more severe, lasts longer, or spreads into your shoulder, arm, neck, jaw, or back When to seek medical advice Call your healthcare provider right away if any of these happen: Your symptoms get worse Severe headache not relieved by rest and mild pain reliever [phone] [employer]. [address] [place] [address], [place] [address]. All rights reserved. This information is not intended as a substitute for professional medical care. Always follow your healthcare professional's instructions. 04/20/2022 06:24:17 Anxiety Reaction Anxiety Reaction Anxiety is the feeling we all get when we think something bad might happen. It is a normal response to stress and usually causes only a mild reaction. When anxiety becomes more severe, it can interfere with daily life. In some cases, you may not even be aware of what it is you re anxious about. There may also be a genetic link or it may be a learned behavior in the home. Both psychological and physical triggers cause stress reaction. It's often a response to fear or emotional stress, real or imagined. This stress may come from home, family, work, or social relationships. During an anxiety reaction, you may feel: Helpless Nervous Depressed Irritable Your body may show signs of anxiety in many ways. You may experience: Dry mouth Shakiness Dizziness Weakness Trouble breathing Breathing fast (hyperventilating) Chest pressure Sweating Headache Nausea Diarrhea Tiredness Inability to sleep Sexual problems Home care Try to locate the sources of stress in your life. They may not be obvious. These may include: oDaily hassles of life (such as traffic jams, missed appointments, or car troubles) oMajor life changes, both good (new baby or job promotion) and bad (loss of job or loss of loved one) oOverload: feeling that you have too many responsibilities and can't take care of all of them at once oFeeling helpless or feeling that your problems are beyond what you re able to solve Notice how your body reacts to stress. Learn to listen to your body signals. This will help you take action before the stress becomes severe. When you can, do something about the source of your stress. (Avoid hassles, limit the amount of change that happens in your life at one time and take a break when you feel overloaded). Unfortunately, many stressful situations can't be avoided. It is necessary to learn how to better manage stress. There are many proven methods that will reduce your anxiety. These include simple things like exercise, good nutrition, and adequate rest. Also, there are certain techniques that are helpful: oRelaxation oBreathing exercises oVisualization oBiofeedback oMeditation For more information about this, consult your healthcare provider or go to a local bookstore and review the many books and tapes available on this subject. Follow-up care If you feel that your anxiety is not responding to self-help measures, contact your healthcare provider or make an appointment with a counselor. You may need short-term psychological counseling and temporary medicine to help you manage stress. Call 911 Call 911 if any of these happen: Trouble breathing Confusion Drowsiness or trouble wakening Fainting or loss of consciousness Rapid heart rate Seizure New chest pain that becomes more severe, lasts longer, or spreads into your shoulder, arm, neck, jaw, or back When to seek medical advice Call your healthcare provider right away if any of these happen: Your symptoms get worse Severe headache not relieved by rest and mild pain reliever [phone] [employer]. [address] [place] [address]. All rights reserved. This information is not intended as a substitute for professional medical care. Always follow your healthcare professional's instructions. Follow Up Care 04/20/2022 06:11:22 With:MILKA SCHNEIDER Address: [address] [place] [phone] When:2-4 days Comments:STOP your current Levothyroxine for two days , then use the new lower dose pills. [facility] 04-20-2022 Note Discharge Instructions Thank you for allowing [facility] to assist you with your healthcare needs. The following is important discharge information regarding your hospital visit. Diagnosis from Today's Visit Anxiety Anxiety What to Do Next Instructions from Your Care Team No qualifying data available. Post Acute Orders No qualifying data available. You Need to Schedule the Following Appointments Follow Up with MILKA SCHNEIDER When Within 2-4 days Why: STOP your current Levothyroxine for two days , then use the new lower dose pills. Where: [address] [facility] [place] [address] [phone] Allergies Imitrex (tunnel vision) Medications Please ask your primary doctor or pharmacist before taking any other medication not listed, including over the counter drugs, herbal medications, vitamins and or supplements as they may interact with your home medications. What How Much When Why Instructions Last Dose New LORazepam (Ativan 1 mg oral tablet) 1 tab(s) by mouth Three (3) times a day as needed for as needed for anxiety Anxiety Duration: 7 Days Printed Prescription Changed levothyroxine (levothyroxine 150 mcg (0.15 mg) oral tablet) 1 tab(s) by mouth Once a day Changed levothyroxine (levothyroxine 50 mcg (0.05 mg) oral tablet) 1 tab(s) by mouth Once a day Anxiety Printed Prescription Unchanged estradiol (estradiol 1 mg oral tablet) 1 tab(s) by mouth Once a day Unchanged hydrOXYzine (Vistaril) by mouth Four (4) times a day Unchanged losartan by mouth Once a day Unchanged melatonin Daily at bedtime Unchanged potassium chloride Please take this list to your next doctor s visit. Bring all medications you take, including over the counter medications, herbals and other supplements with you to your doctor s visit. Patients and families are reminded to discard old lists and to update any records with all medication providers or retail pharmacies. Medication Leaflets lorazepam (oral) (amanda A ze pastora) Ativan, Lorazepam Intensol, Loreev XR What is the most important information I should know about lorazepam? Lorazepam can slow or stop your breathing, especially if you have recently used an opioid medication or alcohol. MISUSE OF THIS MEDICINE CAN CAUSE ADDICTION, OVERDOSE, OR . Keep this medicine where others cannot get to it. Do not stop using lorazepam without asking your doctor. You may have life-threatening withdrawal symptoms if you stop using the medicine suddenly after long-term use. Some withdrawal symptoms may last up to 12 months or longer. Get medical help right away if you stop using lorazepam and have symptoms such as: unusual muscle movements, being more active or talkative, sudden and severe changes in mood or behavior, confusion, hallucinations, seizures, or thoughts about suicide. What is lorazepam? Lorazepam is a benzodiazepine (pxx-odn-sma-AZE-eh-peen) that is used to treat anxiety disorders. Lorazepam may also be used for purposes not listed in this medication guide. What should I discuss with my healthcare provider before taking lorazepam? You should not use lorazepam if you have: narrow-angle glaucoma; or a history of allergic reaction to any benzodiazepine (lorazepam, alprazolam, diazepam, Valium, Xanax, Versed, Klonopin, and others). Tell your doctor if you have ever had: asthma, chronic obstructive pulmonary disease (COPD), sleep apnea, or other breathing disorder; drug or alcohol addiction; depression, mood problems, or suicidal thoughts or behavior; kidney or liver disease; seizures; or an allergy to aspirin or yellow food dye. Tell your doctor if you are or plan to become . If you use lorazepam during , your baby could be born with life-threatening withdrawal symptoms, and may need medical treatment for several weeks. You should not breastfeed. If you do breastfeed, tell your doctor if you notice drowsiness, feeding problems, or slow weight gain in the nursing baby. Not approved for use by anyone younger than 12 years old. Extended-release lorazepam should not be used by anyone younger than 18 years old. How should I take lorazepam? Follow the directions on your prescription label and read all medication guides or instruction sheets. Never use lorazepam in larger amounts, or for longer than prescribed. Tell your doctor if you feel an increased urge to use more of this medicine. Never share this medicine with another person, especially someone with a history of drug abuse or addiction. MISUSE CAN CAUSE ADDICTION, OVERDOSE, OR . Keep the medication in a place where others cannot get to it. Selling or giving away this medicine is against the law. Measure the oral concentrate (liquid) with the supplied measuring device (not a kitchen spoon). Mix the liquid with water, juice, soda, or soft food such as applesauce or pudding. Swallow this mixture right away. Swallow the extended-release capsule whole and do not crush, chew, break, or open it. If you cannot swallow a capsule whole, open it and mix the medicine with applesauce. Swallow the mixture right away without chewing. Then drink a glass of water. Do not stop using lorazepam without asking your doctor. You may have life-threatening withdrawal symptoms if you stop using the medicine suddenly after long-term use. Store tightly closed at room temperature, away from moisture and heat. Store the liquid form of lorazepam in the refrigerator. Throw away any liquid not used within 90 days. Keep your medicine in a place where no one can use it improperly. What happens if I miss a dose? Take the medicine as soon as you can, but skip the missed dose if it is almost time for your next dose. Do not take two doses at one time. What happens if I overdose? Seek emergency medical attention or call the Poison Help line at . An overdose of lorazepam can be fatal if you take it with alcohol, opioid medicine, or other drugs that cause drowsiness or slow your breathing. Overdose symptoms may include severe drowsiness, confusion, slurred speech, feeling restless, muscle weakness, loss of balance or coordination, feeling light-headed, slow heartbeats, weak or shallow breathing, or coma. What should I avoid while taking lorazepam? Avoid drinking alcohol. Dangerous side effects or could occur. Avoid driving or hazardous activity until you know how this medicine will affect you. Dizziness or drowsiness can cause falls, accidents, or severe injuries. What are the possible side effects of lorazepam? Get emergency medical help if you have signs of an allergic reaction: hives; difficulty breathing; swelling of your face, lips, tongue, or throat. Lorazepam can slow or stop your breathing, especially if you have recently used an opioid medication or alcohol. A person caring for you should seek emergency medical attention if you have slow breathing with long pauses, blue colored lips, or if you are hard to wake up. Call your doctor at once if you have: severe drowsiness; unusual changes in mood or behavior, being agitated or talkative; sudden restless feeling or excitement; thoughts of suicide or hurting yourself; confusion, aggression, hallucinations; sleep problems; vision changes; or dark urine, or jaundice (yellowing of the skin or eyes). Drowsiness or dizziness may last longer in older adults. Use caution to avoid falling or accidental injury. Common side effects may include: dizziness, drowsiness; weakness; or feeling unsteady. After you stop using lorazepam, get medical help right away if you have symptoms such as: unusual muscle movements, being more active or talkative, sudden and severe changes in mood or behavior, confusion, hallucinations, seizures, suicidal thoughts or actions. Some withdrawal symptoms may last up to 12 months or longer after stopping this medicine suddenly. Tell your doctor if you have ongoing anxiety, depression, problems with memory or thinking, trouble sleeping, ringing in your ears, a burning or prickly feeling, or a crawling sensation under your skin. This is not a complete list of side effects and others may occur. Call your doctor for medical advice about side effects. You may report side effects to FDA at 4-937-FSU-7740. What other drugs will affect lorazepam? Taking lorazepam with other drugs that make you sleepy or slow your breathing can cause dangerous side effects or . Ask your doctor before using opioid medication, a sleeping pill, a muscle relaxer, or medicine for anxiety or seizures. Tell your doctor about all your other medicines, especially: probenecid, aminophylline, or theophylline; medicine to treat mental illness; or medicine that contains an antihistamine (such as sleep medicine, cold or allergy medicine). This list is not complete. Other drugs may affect lorazepam, including prescription and vjny-yhi-coenhnv medicines, vitamins, and herbal products. Not all possible drug interactions are listed here. Where can I get more information? Your pharmacist can provide more information about lorazepam. Remember, keep this and all other medicines out of the reach of children, never share your medicines with others, and use this medication only for the indication prescribed. Every effort has been made to ensure that the information provided by [employer] is accurate, up-to-date, and complete, but no guarantee is made to that effect. Drug information contained herein may be time sensitive. [employer] information has been compiled for use by healthcare practitioners and consumers in the [place] and therefore [employer] does not warrant that uses outside of the [place] are appropriate, unless specifically indicated otherwise. [employer]'s drug information does not endorse drugs, diagnose patients or recommend therapy. [employer] drug information is an informational resource designed to assist licensed healthcare practitioners in caring for their patients and/or to serve consumers viewing this service as a supplement to, and not a substitute for, the expertise, skill, knowledge and judgment of healthcare practitioners. The absence of a warning for a given drug or drug combination in no way should be construed to indicate that the drug or drug combination is safe, effective or appropriate for any given patient. [facility] does not assume any responsibility for any aspect of healthcare administered with the aid of information [facility] provides. The information contained herein is not intended to cover all possible uses, directions, precautions, warnings, drug interactions, allergic reactions, or adverse effects. If you have questions about the drugs you are taking, check with your doctor, nurse or pharmacist. Copyright [id number] [facility]. Version: 10. Revision Date: 04/05/2021. levothyroxine (oral/injection) (MARY voe thye FARZANA een) Euthyrox, Levoxyl, Synthroid, Thyquidity, Tirosint, Tirosint-Kyra, Unithroid What is the most important information I should know about levothyroxine? You may not be able to use levothyroxine if you have certain medical conditions. Tell your doctor if you have an untreated or uncontrolled adrenal gland disorder, a thyroid disorder called thyrotoxicosis, or if you have any recent or current symptoms of a heart attack. Levothyroxine should not be used to treat obesity or weight problems. What is levothyroxine? Levothyroxine is used to treat hypothyroidism (low thyroid hormone). Levothyroxine is given when your thyroid does not produce enough of this hormone on its own. Levothyroxine is also used to treat or prevent goiter (enlarged thyroid gland), which can be caused by hormone imbalances, radiation treatment, surgery, or cancer. There are many brands and forms of levothyroxine available. Not all brands are listed on this leaflet. Levothyroxine may also be used for purposes not listed in this medication guide. What should I discuss with my healthcare provider before using levothyroxine? Levothyroxine should not be used to treat obesity or weight problems. Dangerous side effects or can occur from the misuse of levothyroxine, especially if you are taking any other weight-loss medications or appetite suppressants. Since thyroid hormone occurs naturally in the body, almost anyone can use levothyroxine. However, you may not be able to use this medicine if you have certain medical conditions. Tell your doctor if you have: an untreated or uncontrolled adrenal gland disorder; a thyroid disorder called thyrotoxicosis; or symptoms of a heart attack (chest pain or heavy feeling, pain spreading to the jaw or shoulder, nausea, sweating, general ill feeling). Tell your doctor if you have ever had: a thyroid nodule; heart disease, a blood clot, or a blood-clotting disorder; diabetes (insulin or oral diabetes medication doses may need to be changed when you start using levothyroxine); kidney disease; anemia (lack of red blood cells); osteoporosis, or low bone mineral density; problems with your pituitary gland; or any food or drug allergies. Tell your doctor if you have recently received radiation therapy with iodine (such as I-131). If you become while using levothyroxine, do not stop using the medicine without your doctor's advice. Having low thyroid hormone levels during could harm both mother and baby. Your dose needs may be different during . Tell your doctor if you are . Your dose needs may be different while you are nursing. Do not give this medicine to a child without medical advice. Tirosint is not approved for use by anyone younger than 6 years old. How should I use levothyroxine? Follow all directions on your prescription label and read all medication guides or instruction sheets. Your doctor may occasionally change your dose. Use the medicine exactly as directed. Levothyroxine oral is taken by mouth. Levothyroxine injection is given as an infusion into a vein. Levothyroxine is usually given by injection only if you are unable to take the medicine by mouth. Levothyroxine oral works best if you take it on an empty stomach, 30 to 60 minutes before breakfast. Follow your doctor's dosing instructions and try to take the medicine at the same time each day. Swallow the tablet or capsule whole, with a full glass (8 ounces) of water. The levothyroxine tablet may dissolve very quickly and could swell in your throat. Measure liquid medicine carefully. Use the dosing syringe provided, or use a medicine dose-measuring device (not a kitchen spoon). Levothyroxine doses are based on weight in children. Your child's dose needs may change if the child gains or loses weight. It may take several weeks before your body starts to respond to levothyroxine. Keep using this medicine even if you feel well. You may need to use levothyroxine for the rest of your life. You may need frequent medical tests. Tell any doctor, dentist, or surgeon who treats you that you are using levothyroxine. Store at room temperature away from moisture and heat. Use Tirosint-Kyra within 3 months after opening the pouch. Do not share this medicine with another person, even if they have the same symptoms you have. What happens if I miss a dose? Use the medicine as soon as you can, but skip the missed dose if it is almost time for your next dose. Do not use two doses at one time. What happens if I overdose? Seek emergency medical attention or call the Poison Help line at . Overdose symptoms may include headache, leg cramps, tremors, feeling nervous or irritable, chest pain, shortness of breath, and fast or pounding heartbeats. What should I avoid while using levothyroxine? Avoid the following food products, which can make your body absorb less levothyroxine: grapefruit juice, infant soy formula, soybean flour, cotton seed meal, walnuts, and high-fiber foods. What are the possible side effects of levothyroxine? Get emergency medical help if you have signs of an allergic reaction: hives; difficult breathing; swelling of your face, lips, tongue, or throat. Call your doctor at once if you have: fast or irregular heartbeats; chest pain, pain spreading to your jaw or shoulder; shortness of breath; fever, hot flashes, sweating; tremors, or if you feel unusually cold; weakness, tiredness, sleep problems (insomnia); memory problems, feeling depressed or irritable; headache, leg cramps, muscle aches; feeling nervous or irritable; dryness of your skin or hair, hair loss; irregular menstrual periods; or vomiting, diarrhea, appetite changes, weight changes. Certain side effects may be more likely in older adults. Common side effects may include: chest pain, irregular heartbeats; shortness of breath; headache, leg cramps, muscle pain or weakness; tremors, feeling nervous or irritable, trouble sleeping; increased appetite; feeling hot; weight loss; changes in your menstrual periods; diarrhea; or skin rash, partial hair loss. This is not a complete list of side effects and others may occur. Call your doctor for medical advice about side effects. You may report side effects to FDA at 3-641-CNP-5781. What other drugs will affect levothyroxine? Many other medicines can be affected by your thyroid hormone levels. Certain other medicines may also increase or decrease the effects of levothyroxine. If you use any of the following drugs, avoid taking them within 4 hours before or 4 hours after you use levothyroxine: calcium carbonate (Anneliese-Mints, Caltrate, Os-Alon, Oyster Shell Calcium, Rolaids Soft Chew, Tums, and others); cholestyramine, colesevelam, colestipol; ferrous sulfate iron supplement; sucralfate; sodium polystyrene sulfonate (Kalexate, Kayexalate, Kionex); stomach acid reducers--esomeprazole, lansoprazole, omeprazole, rabeprazole, Nexium, Prilosec, Prevacid, Protonix, Zegerid, and others; or antacids that contain aluminum or magnesium--Gaviscon, Maalox, Milk of Magnesia, Mintox, Mylanta, Pepcid Complete, and others. Many drugs can affect levothyroxine. This includes prescription and sscn-thx-tqdnjjc medicines, vitamins, and herbal products. Not all possible interactions are listed here. Tell your doctor about all your current medicines and any medicine you start or stop using. Where can I get more information? Your doctor or pharmacist can provide more information about levothyroxine. Remember, keep this and all other medicines out of the reach of children, never share your medicines with others, and use this medication only for the indication prescribed. Every effort has been made to ensure that the information provided by [employer] is accurate, up-to-date, and complete, but no guarantee is made to that effect. Drug information contained herein may be time sensitive. [employer] information has been compiled for use by healthcare practitioners and consumers in the [place] and therefore [employer] does not warrant that uses outside of the [place] are appropriate, unless specifically indicated otherwise. [employer]'s drug information does not endorse drugs, diagnose patients or recommend therapy. [facility]'s drug information is an informational resource designed to assist licensed healthcare practitioners in caring for their patients and/or to serve consumers viewing this service as a supplement to, and not a substitute for, the expertise, skill, knowledge and judgment of healthcare practitioners. The absence of a warning for a given drug or drug combination in no way should be construed to indicate that the drug or drug combination is safe, effective or appropriate for any given patient. [facility] does not assume any responsibility for any aspect of healthcare administered with the aid of information [facility] provides. The information contained herein is not intended to cover all possible uses, directions, precautions, warnings, drug interactions, allergic reactions, or adverse effects. If you have questions about the drugs you are taking, check with your doctor, nurse or pharmacist. Copyright 9384-[address] [facility]. Version: 16.. Revision Date: 10/05/2021. Education Materials Hyperthyroidism You have hyperthyroidism. This means you have a thyroid gland that makes too much thyroid hormone. This hormone is vital to body growth and metabolism. If you make too much thyroid hormone, many body processes speed up and may not work right. This can cause symptoms throughout the body. There are a number of causes of hyperthyroidism. The most common cause is Grave s disease. This occurs when the body s immune system causes the thyroid to grow and make more thyroid hormone than needed. Another form of hypothyroidism, called thyroiditis, occurs shortly after childbirth. Symptoms of hyperthyroidism include: Nervousness, anxiety, irritability Shaking (tremors) that affects the hands and fingers Weight loss despite having a normal or increased appetite Low tolerance to heat Sweating more than normal Fast or irregular heartbeat [employer] or irregular periods (women only) More frequent bowel movements Enlarged thyroid gland (goiter) Bulging eyes Problems sleeping Muscle weakness Fatigue Swelling of the hands, ankles, or feet (older adults only) Your healthcare provider will need to do some tests to see exactly which form of hypothyroidism you have. This is because the treatments are different. Treatment for hyperthyroidism may include taking medicines. For instance, antithyroid medicines may be prescribed. These help lower the amount of thyroid hormone made by the thyroid gland. Beta-blockers may be prescribed as well. Tips for taking medicines are given below. Radioiodine ablation or surgery may also be advised. Your healthcare provider will tell you more about these options if needed. Home care Tips for taking medicines Take any medicines you re prescribed as directed. Take your medicine at the same times each day. To decrease the chance of drug interactions, check with your pharmacist before using yrys-akc-msdpnmy medicines with your prescribed medicines. Use a pillbox labeled with the days of the week. This will help you remember to take your medicine each day. Tell your provider if you have any side effects from your medicines that bother you. Never stop taking medicines on your own. If you do, your symptoms will return. General care Always talk with your provider before trying other medicines or treatments for your thyroid problem. If you see other healthcare providers, be sure to let them know about your thyroid problem. Follow-up care See your healthcare provider for checkups as advised. You may need regular tests to check the level of thyroid hormone in your blood. When to seek medical advice Call your healthcare provider right away if any of these occur: New symptoms occur Symptoms return, continue, or worsen even after treatment Extreme fatigue Puffy hands, face, or feet Confusion Call 911 Call 911 if any of these occur: Fainting Chest pain Shortness of breath or trouble breathing [phone] [employer] [place] [address]. All rights reserved. This information is not intended as a substitute for professional medical care. Always follow your healthcare professional's instructions. Anxiety Reaction Anxiety is the feeling we all get when we think something bad might happen. It is a normal response to stress and usually causes only a mild reaction. When anxiety becomes more severe, it can interfere with daily life. In some cases, you may not even be aware of what it is you re anxious about. There may also be a genetic link or it may be a learned behavior in the home. Both psychological and physical triggers cause stress reaction. It's often a response to fear or emotional stress, real or imagined. This stress may come from home, family, work, or social relationships. During an anxiety reaction, you may feel: Helpless Nervous Depressed Irritable Your body may show signs of anxiety in many ways. You may experience: Dry mouth Shakiness Dizziness Weakness Trouble breathing Breathing fast (hyperventilating) Chest pressure Sweating Headache Nausea Diarrhea Tiredness Inability to sleep Sexual problems Home care Try to locate the sources of stress in your life. They may not be obvious. These may include: oDaily hassles of life (such as traffic jams, missed appointments, or car troubles) oMajor life changes, both good (new baby or job promotion) and bad (loss of job or loss of loved one) oOverload: feeling that you have too many responsibilities and can't take care of all of them at once oFeeling helpless or feeling that your problems are beyond what you re able to solve Notice how your body reacts to stress. Learn to listen to your body signals. This will help you take action before the stress becomes severe. When you can, do something about the source of your stress. (Avoid hassles, limit the amount of change that happens in your life at one time and take a break when you feel overloaded). Unfortunately, many stressful situations can't be avoided. It is necessary to learn how to better manage stress. There are many proven methods that will reduce your anxiety. These include simple things like exercise, good nutrition, and adequate rest. Also, there are certain techniques that are helpful: oRelaxation oBreathing exercises oVisualization oBiofeedback oMeditation For more information about this, consult your healthcare provider or go to a local bookstore and review the many books and tapes available on this subject. Follow-up care If you feel that your anxiety is not responding to self-help measures, contact your healthcare provider or make an appointment with a counselor. You may need short-term psychological counseling and temporary medicine to help you manage stress. Call 911 Call 911 if any of these happen: Trouble breathing Confusion Drowsiness or trouble wakening Fainting or loss of consciousness Rapid heart rate Seizure New chest pain that becomes more severe, lasts longer, or spreads into your shoulder, arm, neck, jaw, or back When to seek medical advice Call your healthcare provider right away if any of these happen: Your symptoms get worse Severe headache not relieved by rest and mild pain reliever [id number] [employer]. [address] [place] [address], [place] [address]. All rights reserved. This information is not intended as a substitute for professional medical care. Always follow your healthcare professional's instructions. Anxiety Reaction Anxiety is the feeling we all get when we think something bad might happen. It is a normal response to stress and usually causes only a mild reaction. When anxiety becomes more severe, it can interfere with daily life. In some cases, you may not even be aware of what it is you re anxious about. There may also be a genetic link or it may be a learned behavior in the home. Both psychological and physical triggers cause stress reaction. It's often a response to fear or emotional stress, real or imagined. This stress may come from home, family, work, or social relationships. During an anxiety reaction, you may feel: Helpless Nervous Depressed Irritable Your body may show signs of anxiety in many ways. You may experience: Dry mouth Shakiness Dizziness Weakness Trouble breathing Breathing fast (hyperventilating) Chest pressure Sweating Headache Nausea Diarrhea Tiredness Inability to sleep Sexual problems Home care Try to locate the sources of stress in your life. They may not be obvious. These may include: oDaily hassles of life (such as traffic jams, missed appointments, or car troubles) oMajor life changes, both good (new baby or job promotion) and bad (loss of job or loss of loved one) oOverload: feeling that you have too many responsibilities and can't take care of all of them at once oFeeling helpless or feeling that your problems are beyond what you re able to solve Notice how your body reacts to stress. Learn to listen to your body signals. This will help you take action before the stress becomes severe. When you can, do something about the source of your stress. (Avoid hassles, limit the amount of change that happens in your life at one time and take a break when you feel overloaded). Unfortunately, many stressful situations can't be avoided. It is necessary to learn how to better manage stress. There are many proven methods that will reduce your anxiety. These include simple things like exercise, good nutrition, and adequate rest. Also, there are certain techniques that are helpful: oRelaxation oBreathing exercises oVisualization oBiofeedback oMeditation For more information about this, consult your healthcare provider or go to a local bookstore and review the many books and tapes available on this subject. Follow-up care If you feel that your anxiety is not responding to self-help measures, contact your healthcare provider or make an appointment with a counselor. You may need short-term psychological counseling and temporary medicine to help you manage stress. Call 911 Call 911 if any of these happen: Trouble breathing Confusion Drowsiness or trouble wakening Fainting or loss of consciousness Rapid heart rate Seizure New chest pain that becomes more severe, lasts longer, or spreads into your shoulder, arm, neck, jaw, or back When to seek medical advice Call your healthcare provider right away if any of these happen: Your symptoms get worse Severe headache not relieved by rest and mild pain reliever [phone] [employer]. [address] [place] [address]. All rights reserved. This information is not intended as a substitute for professional medical care. Always follow your healthcare professional's instructions. Additional Information VACCINATE! IT SAVES LIVES! Members of the community who have not yet received the COVID-19 vaccine and would like to receive it can visit one of [facility] vaccine clinics. There are many vaccine clinic locations within the [facility]. For locations and available times, please visit [email or web address]. It is important to note that some COVID mobile vaccine clinics are held outdoors and may be canceled in rainy or stormy conditions. To learn more about pediatric vaccinations (ages 5-11), we invite you to visit the [facility] webpage. [email or web address] To learn more about the COVID-19 vaccine, we invite you to visit the [facility] website for a list of frequently asked questions. [email or web address] [facility] Patient Portal Access Instructions: Stay connected with your healthcare team and access your personal medical information anytime with the [facility] Patient Portal. If you would like a full copy of your medical records please contact the [facility] Medical Records Department Sunday through Sunday between 8a.m. and 4:30p.m. Please follow the directions below to access the portal: 1.Access the email account you provided upon registration to the [facility].2.Look for an invitation email from [facility].3.Open the email and access the invitation link: Accept Invitation to [employer].Fill in the required lugo to create your account. Sign into www.[email or web address] with your username and password that you created in the above steps to stay up to date. You can then view a summary of results, a summary of your visits, and the ability to download your summaries to your computer or send the information securely to a physician. Remember that your healthcare information is confidential, so carefully consider who you will allow to register on the [facility] Patient Portal for access to your information. You can also access the [facility] Patient Portal on the [employer]. Simply click on Health Records under [facility] and then click on the [email or web address] logo. HOW TO SAFELY DISPOSE OF PRESCRIPTION MEDICATIONS Please use one of the following methods to safely dispose of your unused medications. 1.Use a drug disposal kit: the drug disposal pouch allows you to safely discard your old and unused drugs. Ask your nurse to give you one when you are discharged.2.Visit a local take-back location: Many local pharmacies and police departments have programs that collect old and unwanted prescription drugs. Call your local pharmacy or go to http://Cambiatta/4P6Oe7z to find one close to you.3.Make use of household items: Use cat litter or old coffee grounds to dispose medications if other options are not available. Mix your drugs with these household products, seal them in an airtight container and throw it into the garbage. Call [facility]: [phone] to be sure your drugs can be disposed of in this way. Some medicines may require a different approach.4.Never flush your medications down the toilet. IF YOU HAVE BEEN PRESCRIBED AN OPIOIDS FOR PAIN If you have been prescribed an opioid (such as hydrocodone, oxycodone or morphine), it is critical to understand the possible side effects and risks of opioid pain medications. Even when taken as directed, opioids can have several side effects including: Tolerance, meaning you might need to take more of a medication for the same pain relief. Nausea, vomiting and/or constipation. Sleepiness, dizziness, dry mouth, confusion, depression or itching. Physical dependence, meaning you have withdrawal symptoms when a medication is stopped ? this can develop within a few days. KNOW YOUR RESPONSIBILITIES It is important to know exactly how much and how often to take the opioid pain medications you are prescribed. Never take opioids in higher amounts or more often than prescribed. Do not combine opioids with alcohol or other drugs that cause drowsiness, such as benzodiazepines, also known as benzos, including diazepam and alprazolam, muscle relaxants or sleep aids. Never sell or share prescription opioids. This is illegal. Store opioids in a secure place and out of reach of others (including children, family, friends and visitors). The last page(s) of this document has been signed and retained as a CHART COPY Signatures Patient Education Materials Hyperthyroidism Anxiety Reaction Anxiety Reaction Medication Leaflets lorazepam (oral), levothyroxine (oral/injection) My discharge plan and instructions have been reviewed and explained to me and I,HELEN ROLNAD understand my current condition and have read and understand these discharge instructions. I have received a written copy of the plan/instructions. If I have questions, I am aware that I should contact my doctor. 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: Relationship to Patient: Witness Name/Signature: Date/Time: [facility] 04-06-2022 Hospital Discharg e instructions Patient Education 04/06/2022 15:59:14 Hyperthyroidism Hyperthyroidism You have hyperthyroidism. This means you have a thyroid gland that makes too much thyroid hormone. This hormone is vital to body growth and metabolism. If you make too much thyroid hormone, many body processes speed up and may not work right. This can cause symptoms throughout the body. There are a number of causes of hyperthyroidism. The most common cause is Grave s disease. This occurs when the body s immune system causes the thyroid to grow and make more thyroid hormone than needed. Another form of hypothyroidism, called thyroiditis, occurs shortly after childbirth. Symptoms of hyperthyroidism include: Nervousness, anxiety, irritability Shaking (tremors) that affects the hands and fingers Weight loss despite having a normal or increased appetite Low tolerance to heat Sweating more than normal Fast or irregular heartbeat Credit Risk Manager or irregular periods (women only) More frequent bowel movements Enlarged thyroid gland (goiter) Bulging eyes Problems sleeping Muscle weakness Fatigue Swelling of the hands, ankles, or feet (older adults only) Your healthcare provider will need to do some tests to see exactly which form of hypothyroidism you have. This is because the treatments are different. Treatment for hyperthyroidism may include taking medicines. For instance, antithyroid medicines may be prescribed. These help lower the amount of thyroid hormone made by the thyroid gland. Beta-blockers may be prescribed as well. Tips for taking medicines are given below. Radioiodine ablation or surgery may also be advised. Your healthcare provider will tell you more about these options if needed. Home care Tips for taking medicines Take any medicines you re prescribed as directed. Take your medicine at the same times each day. To decrease the chance of drug interactions, check with your pharmacist before using rzma-irw-wlmrivn medicines with your prescribed medicines. Use a pillbox labeled with the days of the week. This will help you remember to take your medicine each day. Tell your provider if you have any side effects from your medicines that bother you. Never stop taking medicines on your own. If you do, your symptoms will return. General care Always talk with your provider before trying other medicines or treatments for your thyroid problem. If you see other healthcare providers, be sure to let them know about your thyroid problem. Follow-up care See your healthcare provider for checkups as advised. You may need regular tests to check the level of thyroid hormone in your blood. When to seek medical advice Call your healthcare provider right away if any of these occur: New symptoms occur Symptoms return, continue, or worsen even after treatment Extreme fatigue Puffy hands, face, or feet Confusion Call 911 Call 911 if any of these occur: Fainting Chest pain Shortness of breath or trouble breathing [phone] [facility] [place] [address], [place] [address]. All rights reserved. This information is not intended as a substitute for professional medical care. Always follow your healthcare professional's instructions. 04/06/2022 15:59:12 Anxiety Reaction Anxiety Reaction Anxiety is the feeling we all get when we think something bad might happen. It is a normal response to stress and usually causes only a mild reaction. When anxiety becomes more severe, it can interfere with daily life. In some cases, you may not even be aware of what it is you re anxious about. There may also be a genetic link or it may be a learned behavior in the home. Both psychological and physical triggers cause stress reaction. It's often a response to fear or emotional stress, real or imagined. This stress may come from home, family, work, or social relationships. During an anxiety reaction, you may feel: Helpless Nervous Depressed Irritable Your body may show signs of anxiety in many ways. You may experience: Dry mouth Shakiness Dizziness Weakness Trouble breathing Breathing fast (hyperventilating) Chest pressure Sweating Headache Nausea Diarrhea Tiredness Inability to sleep Sexual problems Home care Try to locate the sources of stress in your life. They may not be obvious. These may include: oDaily hassles of life (such as traffic jams, missed appointments, or car troubles) oMajor life changes, both good (new baby or job promotion) and bad (loss of job or loss of loved one) oOverload: feeling that you have too many responsibilities and can't take care of all of them at once oFeeling helpless or feeling that your problems are beyond what you re able to solve Notice how your body reacts to stress. Learn to listen to your body signals. This will help you take action before the stress becomes severe. When you can, do something about the source of your stress. (Avoid hassles, limit the amount of change that happens in your life at one time and take a break when you feel overloaded). Unfortunately, many stressful situations can't be avoided. It is necessary to learn how to better manage stress. There are many proven methods that will reduce your anxiety. These include simple things like exercise, good nutrition, and adequate rest. Also, there are certain techniques that are helpful: oRelaxation oBreathing exercises oVisualization oBiofeedback oMeditation For more information about this, consult your healthcare provider or go to a local bookstore and review the many books and tapes available on this subject. Follow-up care If you feel that your anxiety is not responding to self-help measures, contact your healthcare provider or make an appointment with a counselor. You may need short-term psychological counseling and temporary medicine to help you manage stress. Call 911 Call 911 if any of these happen: Trouble breathing Confusion Drowsiness or trouble wakening Fainting or loss of consciousness Rapid heart rate Seizure New chest pain that becomes more severe, lasts longer, or spreads into your shoulder, arm, neck, jaw, or back When to seek medical advice Call your healthcare provider right away if any of these happen: Your symptoms get worse Severe headache not relieved by rest and mild pain reliever [id number] [employer]. [address] [place] [address]. All rights reserved. This information is not intended as a substitute for professional medical care. Always follow your healthcare professional's instructions. Follow Up Care 04/06/2022 14:38:34 With:MILKA SCHNEIDER Address: [facility] [address] PAT[address]Pat[address] [facility] [address]- [phone] When:2-4 days [facility] 04-06-2022 Emergency department Discharge summary Discharge Instructions Thank you for allowing [facility] to assist you with your healthcare needs. The following is important discharge information regarding your hospital visit. Diagnosis from Today's Visit Hyperthyroidism Anxiety Anxiety What to Do Next Instructions from Your Care Team No qualifying data available. Post Acute Orders No qualifying data available. You Need to Schedule the Following Appointments Follow Up with MILKA SCHNEIDER When Within 2-4 days Where: [facility] [place]IK[place] [address]- [phone] Allergies Imitrex (tunnel vision) Medications Please ask your primary doctor or pharmacist before taking any other medication not listed, including over the counter drugs, herbal medications, vitamins and or supplements as they may interact with your home medications. What How Much When Why Instructions Last Dose New LORazepam (LORazepam 1 mg oral tablet) 1 tab(s) by mouth Two (2) times a day as needed for as needed for anxiety Hyperthyroidism Anxiety Duration: 3 Days Printed Prescription Unchanged estradiol (estradiol 1 mg oral tablet) 1 tab(s) by mouth Once a day Unchanged hydrOXYzine (Vistaril) by mouth Four (4) times a day Unchanged levothyroxine (levothyroxine 150 mcg (0.15 mg) oral tablet) 1 tab(s) by mouth Once a day Unchanged losartan by mouth Once a day Unchanged melatonin Daily at bedtime Unchanged potassium chloride Please take this list to your next doctor s visit. Bring all medications you take, including over the counter medications, herbals and other supplements with you to your doctor s visit. Patients and families are reminded to discard old lists and to update any records with all medication providers or retail pharmacies. Education Materials Hyperthyroidism You have hyperthyroidism. This means you have a thyroid gland that makes too much thyroid hormone. This hormone is vital to body growth and metabolism. If you make too much thyroid hormone, many body processes speed up and may not work right. This can cause symptoms throughout the body. There are a number of causes of hyperthyroidism. The most common cause is Grave s disease. This occurs when the body s immune system causes the thyroid to grow and make more thyroid hormone than needed. Another form of hypothyroidism, called thyroiditis, occurs shortly after childbirth. Symptoms of hyperthyroidism include: Nervousness, anxiety, irritability Shaking (tremors) that affects the hands and fingers Weight loss despite having a normal or increased appetite Low tolerance to heat Sweating more than normal Fast or irregular heartbeat Credit Risk Manager or irregular periods (women only) More frequent bowel movements Enlarged thyroid gland (goiter) Bulging eyes Problems sleeping Muscle weakness Fatigue Swelling of the hands, ankles, or feet (older adults only) Your healthcare provider will need to do some tests to see exactly which form of hypothyroidism you have. This is because the treatments are different. Treatment for hyperthyroidism may include taking medicines. For instance, antithyroid medicines may be prescribed. These help lower the amount of thyroid hormone made by the thyroid gland. Beta-blockers may be prescribed as well. Tips for taking medicines are given below. Radioiodine ablation or surgery may also be advised. Your healthcare provider will tell you more about these options if needed. Home care Tips for taking medicines Take any medicines you re prescribed as directed. Take your medicine at the same times each day. To decrease the chance of drug interactions, check with your pharmacist before using jofx-khv-mpkekdx medicines with your prescribed medicines. Use a pillbox labeled with the days of the week. This will help you remember to take your medicine each day. Tell your provider if you have any side effects from your medicines that bother you. Never stop taking medicines on your own. If you do, your symptoms will return. General care Always talk with your provider before trying other medicines or treatments for your thyroid problem. If you see other healthcare providers, be sure to let them know about your thyroid problem. Follow-up care See your healthcare provider for checkups as advised. You may need regular tests to check the level of thyroid hormone in your blood. When to seek medical advice Call your healthcare provider right away if any of these occur: New symptoms occur Symptoms return, continue, or worsen even after treatment Extreme fatigue Puffy hands, face, or feet Confusion Call 911 Call 911 if any of these occur: Fainting Chest pain Shortness of breath or trouble breathing [phone] [facility] [place] [address]. All rights reserved. This information is not intended as a substitute for professional medical care. Always follow your healthcare professional's instructions. Anxiety Reaction Anxiety is the feeling we all get when we think something bad might happen. It is a normal response to stress and usually causes only a mild reaction. When anxiety becomes more severe, it can interfere with daily life. In some cases, you may not even be aware of what it is you re anxious about. There may also be a genetic link or it may be a learned behavior in the home. Both psychological and physical triggers cause stress reaction. It's often a response to fear or emotional stress, real or imagined. This stress may come from home, family, work, or social relationships. During an anxiety reaction, you may feel: Helpless Nervous Depressed Irritable Your body may show signs of anxiety in many ways. You may experience: Dry mouth Shakiness Dizziness Weakness Trouble breathing Breathing fast (hyperventilating) Chest pressure Sweating Headache Nausea Diarrhea Tiredness Inability to sleep Sexual problems Home care Try to locate the sources of stress in your life. They may not be obvious. These may include: oDaily hassles of life (such as traffic jams, missed appointments, or car troubles) oMajor life changes, both good (new baby or job promotion) and bad (loss of job or loss of loved one) oOverload: feeling that you have too many responsibilities and can't take care of all of them at once oFeeling helpless or feeling that your problems are beyond what you re able to solve Notice how your body reacts to stress. Learn to listen to your body signals. This will help you take action before the stress becomes severe. When you can, do something about the source of your stress. (Avoid hassles, limit the amount of change that happens in your life at one time and take a break when you feel overloaded). Unfortunately, many stressful situations can't be avoided. It is necessary to learn how to better manage stress. There are many proven methods that will reduce your anxiety. These include simple things like exercise, good nutrition, and adequate rest. Also, there are certain techniques that are helpful: oRelaxation oBreathing exercises oVisualization oBiofeedback oMeditation For more information about this, consult your healthcare provider or go to a local bookstore and review the many books and tapes available on this subject. Follow-up care If you feel that your anxiety is not responding to self-help measures, contact your healthcare provider or make an appointment with a counselor. You may need short-term psychological counseling and temporary medicine to help you manage stress. Call 911 Call 911 if any of these happen: Trouble breathing Confusion Drowsiness or trouble wakening Fainting or loss of consciousness Rapid heart rate Seizure New chest pain that becomes more severe, lasts longer, or spreads into your shoulder, arm, neck, jaw, or back When to seek medical advice Call your healthcare provider right away if any of these happen: Your symptoms get worse Severe headache not relieved by rest and mild pain reliever [phone] [employer]. [address] [place] [address]. All rights reserved. This information is not intended as a substitute for professional medical care. Always follow your healthcare professional's instructions. Additional Information VACCINATE! IT SAVES LIVES! Members of the community who have not yet received the COVID-19 vaccine and would like to receive it can visit one of [facility] vaccine clinics. There are many vaccine clinic locations within the [facility]. For locations and available times, please visit [email or web address]. It is important to note that some COVID mobile vaccine clinics are held outdoors and may be canceled in rainy or stormy conditions. To learn more about pediatric vaccinations (ages 5-11), we invite you to visit the [facility] webpage. [email or web address] [email or web address] To learn more about the COVID-19 vaccine, we invite you to visit the [facility] website for a list of frequently asked questions. [email or web address] [facility] Patient Portal Access Instructions: Stay connected with your healthcare team and access your personal medical information anytime with the [facility] Patient Portal. If you would like a full copy of your medical records please contact the [facility] Medical Records Department Sunday through Sunday between 8a.m. and 4:30p.m. Please follow the directions below to access the portal: 1.Access the email account you provided upon registration to the [facility].2.Look for an invitation email from [facility].3.Open the email and access the invitation link: Accept Invitation to [facility]4.Fill in the required lugo to create your account. Sign into [email or web address] with your username and password that you created in the above steps to stay up to date. You can then view a summary of results, a summary of your visits, and the ability to download your summaries to your computer or send the information securely to a physician. Remember that your healthcare information is confidential, so carefully consider who you will allow to register on the [facility] Patient Portal for access to your information. You can also access the [facility] Patient Portal on the [employer]. Simply click on Health Records under Health Data and then click on the [email or web address] logo. HOW TO SAFELY DISPOSE OF PRESCRIPTION MEDICATIONS Please use one of the following methods to safely dispose of your unused medications. 1.Use a drug disposal kit: the drug disposal pouch allows you to safely discard your old and unused drugs. Ask your nurse to give you one when you are discharged.2.Visit a local take-back location: Many local pharmacies and police departments have programs that collect old and unwanted prescription drugs. Call your local pharmacy or go to http://bit.ly/0H7Xc6l to find one close to you.3.Make use of household items: Use cat litter or old coffee grounds to dispose medications if other options are not available. Mix your drugs with these household products, seal them in an airtight container and throw it into the garbage. Call [facility]: [phone] to be sure your drugs can be disposed of in this way. Some medicines may require a different approach.4.Never flush your medications down the toilet. IF YOU HAVE BEEN PRESCRIBED AN OPIOIDS FOR PAIN If you have been prescribed an opioid (such as hydrocodone, oxycodone or morphine), it is critical to understand the possible side effects and risks of opioid pain medications. Even when taken as directed, opioids can have several side effects including: Tolerance, meaning you might need to take more of a medication for the same pain relief. Nausea, vomiting and/or constipation. Sleepiness, dizziness, dry mouth, confusion, depression or itching. Physical dependence, meaning you have withdrawal symptoms when a medication is stopped ? this can develop within a few days. KNOW YOUR RESPONSIBILITIES It is important to know exactly how much and how often to take the opioid pain medications you are prescribed. Never take opioids in higher amounts or more often than prescribed. Do not combine opioids with alcohol or other drugs that cause drowsiness, such as benzodiazepines, also known as benzos, including diazepam and alprazolam, muscle relaxants or sleep aids. Never sell or share prescription opioids. This is illegal. Store opioids in a secure place and out of reach of others (including children, family, friends and visitors). The last page(s) of this document has been signed and retained as a CHART COPY Signatures Patient Education Materials Hyperthyroidism Anxiety Reaction Medication Leaflets My discharge plan and instructions have been reviewed and explained to me and IWILVER BONNIE L understand my current condition and have read and understand these discharge instructions. I have received a written copy of the plan/instructions. If I have questions, I am aware that I should contact my doctor. 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: Relationship to Patient: Witness Name/Signature: Date/Time: [facility] [address] 03-29-2022 Hospital Discharg e instructions Patient Education 03/29/2022 04:46:21 Anxiety Reaction Anxiety Reaction Anxiety is the feeling we all get when we think something bad might happen. It is a normal response to stress and usually causes only a mild reaction. When anxiety becomes more severe, it can interfere with daily life. In some cases, you may not even be aware of what it is you re anxious about. There may also be a genetic link or it may be a learned behavior in the home. Both psychological and physical triggers cause stress reaction. It's often a response to fear or emotional stress, real or imagined. This stress may come from home, family, work, or social relationships. During an anxiety reaction, you may feel: Helpless Nervous Depressed Irritable Your body may show signs of anxiety in many ways. You may experience: Dry mouth Shakiness Dizziness Weakness Trouble breathing Breathing fast (hyperventilating) Chest pressure Sweating Headache Nausea Diarrhea Tiredness Inability to sleep Sexual problems Home care Try to locate the sources of stress in your life. They may not be obvious. These may include: oDaily hassles of life (such as traffic jams, missed appointments, or car troubles) oMajor life changes, both good (new baby or job promotion) and bad (loss of job or loss of loved one) oOverload: feeling that you have too many responsibilities and can't take care of all of them at once oFeeling helpless or feeling that your problems are beyond what you re able to solve Notice how your body reacts to stress. Learn to listen to your body signals. This will help you take action before the stress becomes severe. When you can, do something about the source of your stress. (Avoid hassles, limit the amount of change that happens in your life at one time and take a break when you feel overloaded). Unfortunately, many stressful situations can't be avoided. It is necessary to learn how to better manage stress. There are many proven methods that will reduce your anxiety. These include simple things like exercise, good nutrition, and adequate rest. Also, there are certain techniques that are helpful: oRelaxation oBreathing exercises oVisualization oBiofeedback oMeditation For more information about this, consult your healthcare provider or go to a local bookstore and review the many books and tapes available on this subject. Follow-up care If you feel that your anxiety is not responding to self-help measures, contact your healthcare provider or make an appointment with a counselor. You may need short-term psychological counseling and temporary medicine to help you manage stress. Call 911 Call 911 if any of these happen: Trouble breathing Confusion Drowsiness or trouble wakening Fainting or loss of consciousness Rapid heart rate Seizure New chest pain that becomes more severe, lasts longer, or spreads into your shoulder, arm, neck, jaw, or back When to seek medical advice Call your healthcare provider right away if any of these happen: Your symptoms get worse Severe headache not relieved by rest and mild pain reliever [phone] [employer]. [address] [place] [address]. All rights reserved. This information is not intended as a substitute for professional medical care. Always follow your healthcare professional's instructions. 03/29/2022 04:46:14 Palpitations Heart Palpitations Palpitations are the feeling that your heart is beating hard, fast, or irregular. Some describe it as pounding or skipped beats. Palpitations may occur in someone with heart disease, but can also occur in a healthy person. Heart-related causes: Arrhythmia (a change from the heart's normal rhythm) Heart valve disease Disease of the heart muscle Coronary artery disease High blood pressure Qee-horrf-mjzbvxn causes: Certain medicines such as asthma inhalers and decongestants Some herbal supplements, energy drinks and pills, and weight loss pills Illegal stimulant drugs such as cocaine, crank, methamphetamine, PCP, bath salts, or ecstasy Caffeine, alcohol, and tobacco Medical conditions such as thyroid disease, anemia, anxiety, and panic disorder Sometimes the cause can't be found. Home care Follow these home care tips: Don't use too much caffeine, alcohol, tobacco, or any stimulant drugs. Tell your doctor about any prescription or ttpn-qoh-mgkxeri or herbal medicines you take. Follow-up care Follow up with your doctor, or as advised. Call 911 This is the fastest and safest way to get to the emergency department. The paramedics can also begin treatment on the way to the hospital, if needed. Don't wait until your symptoms are severe to call 911. These are reasons to call 911: Chest pain Shortness of breath Feeling lightheaded, faint, or dizzy Fainting or loss of consciousness Very irregular heartbeat Rapid heartbeat that makes you uncomfortable Slower than usual heart rate associated with symptoms Slower than usual heart rate Chest pain with weakness, dizziness, heavy sweating, nausea, or vomiting Extreme drowsiness or confusion Weakness of an arm or leg, or on 1 side of the face Difficulty with speech or vision When to seek medical advice Call your healthcare provider right away if you have palpitations and any of the following: Weakness Dizziness Lightheadedness Fainting [phone] [facility] [place] [address]. All rights reserved. This information is not intended as a substitute for professional medical care. Always follow your healthcare professional's instructions. Follow Up Care 03/29/2022 03:37:12 With:MILKA SCHNEIDER Address: [facility] DANIKA PATELPatricia [facility] [address]- [phone] When:2-4 days [facility] 03-29-2022 Note Discharge Instructions Thank you for allowing [facility] to assist you with your healthcare needs. The following is important discharge information regarding your hospital visit. Diagnosis from Today's Visit Palpitations Anxiety Anxiety What to Do Next Instructions from Your Care Team No qualifying data available. Post Acute Orders No qualifying data available. You Need to Schedule the Following Appointments Follow Up with MILKA SCHNEIDER When Within 2-4 days Where: [facility] DANIKA [place] [address] [phone] Allergies Imitrex (tunnel vision) Medications Please ask your primary doctor or pharmacist before taking any other medication not listed, including over the counter drugs, herbal medications, vitamins and or supplements as they may interact with your home medications. What How Much When Instructions Last Dose Unchanged estradiol (estradiol 1 mg oral tablet) 1 tab(s) by mouth Once a day Unchanged hydrOXYzine (Vistaril) by mouth Four (4) times a day Unchanged levothyroxine (levothyroxine 150 mcg (0.15 mg) oral tablet) 1 tab(s) by mouth Once a day Unchanged losartan by mouth Once a day Unchanged melatonin Daily at bedtime Unchanged potassium chloride Please take this list to your next doctor s visit. Bring all medications you take, including over the counter medications, herbals and other supplements with you to your doctor s visit. Patients and families are reminded to discard old lists and to update any records with all medication providers or retail pharmacies. Education Materials Anxiety Reaction Anxiety is the feeling we all get when we think something bad might happen. It is a normal response to stress and usually causes only a mild reaction. When anxiety becomes more severe, it can interfere with daily life. In some cases, you may not even be aware of what it is you re anxious about. There may also be a genetic link or it may be a learned behavior in the home. Both psychological and physical triggers cause stress reaction. It's often a response to fear or emotional stress, real or imagined. This stress may come from home, family, work, or social relationships. During an anxiety reaction, you may feel: Helpless Nervous Depressed Irritable Your body may show signs of anxiety in many ways. You may experience: Dry mouth Shakiness Dizziness Weakness Trouble breathing Breathing fast (hyperventilating) Chest pressure Sweating Headache Nausea Diarrhea Tiredness Inability to sleep Sexual problems Home care Try to locate the sources of stress in your life. They may not be obvious. These may include: oDaily hassles of life (such as traffic jams, missed appointments, or car troubles) oMajor life changes, both good (new baby or job promotion) and bad (loss of job or loss of loved one) oOverload: feeling that you have too many responsibilities and can't take care of all of them at once oFeeling helpless or feeling that your problems are beyond what you re able to solve Notice how your body reacts to stress. Learn to listen to your body signals. This will help you take action before the stress becomes severe. When you can, do something about the source of your stress. (Avoid hassles, limit the amount of change that happens in your life at one time and take a break when you feel overloaded). Unfortunately, many stressful situations can't be avoided. It is necessary to learn how to better manage stress. There are many proven methods that will reduce your anxiety. These include simple things like exercise, good nutrition, and adequate rest. Also, there are certain techniques that are helpful: oRelaxation oBreathing exercises oVisualization oBiofeedback oMeditation For more information about this, consult your healthcare provider or go to a local bookstore and review the many books and tapes available on this subject. Follow-up care If you feel that your anxiety is not responding to self-help measures, contact your healthcare provider or make an appointment with a counselor. You may need short-term psychological counseling and temporary medicine to help you manage stress. Call 911 Call 911 if any of these happen: Trouble breathing Confusion Drowsiness or trouble wakening Fainting or loss of consciousness Rapid heart rate Seizure New chest pain that becomes more severe, lasts longer, or spreads into your shoulder, arm, neck, jaw, or back When to seek medical advice Call your healthcare provider right away if any of these happen: Your symptoms get worse Severe headache not relieved by rest and mild pain reliever [phone] [employer]. [address] [place] [address]. All rights reserved. This information is not intended as a substitute for professional medical care. Always follow your healthcare professional's instructions. Heart Palpitations Palpitations are the feeling that your heart is beating hard, fast, or irregular. Some describe it as pounding or skipped beats. Palpitations may occur in someone with heart disease, but can also occur in a healthy person. Heart-related causes: Arrhythmia (a change from the heart's normal rhythm) Heart valve disease Disease of the heart muscle Coronary artery disease High blood pressure Izr-vnehc-axcdchw causes: Certain medicines such as asthma inhalers and decongestants Some herbal supplements, energy drinks and pills, and weight loss pills Illegal stimulant drugs such as cocaine, crank, methamphetamine, PCP, bath salts, or ecstasy Caffeine, alcohol, and tobacco Medical conditions such as thyroid disease, anemia, anxiety, and panic disorder Sometimes the cause can't be found. Home care Follow these home care tips: Don't use too much caffeine, alcohol, tobacco, or any stimulant drugs. Tell your doctor about any prescription or pdmi-abs-wncprns or herbal medicines you take. Follow-up care Follow up with your doctor, or as advised. Call 911 This is the fastest and safest way to get to the emergency department. The paramedics can also begin treatment on the way to the hospital, if needed. Don't wait until your symptoms are severe to call 911. These are reasons to call 911: Chest pain Shortness of breath Feeling lightheaded, faint, or dizzy Fainting or loss of consciousness Very irregular heartbeat Rapid heartbeat that makes you uncomfortable Slower than usual heart rate associated with symptoms Slower than usual heart rate Chest pain with weakness, dizziness, heavy sweating, nausea, or vomiting Extreme drowsiness or confusion Weakness of an arm or leg, or on 1 side of the face Difficulty with speech or vision When to seek medical advice Call your healthcare provider right away if you have palpitations and any of the following: Weakness Dizziness Lightheadedness Fainting [phone] [facility] [place] [address]. All rights reserved. This information is not intended as a substitute for professional medical care. Always follow your healthcare professional's instructions. Additional Information VACCINATE! IT SAVES LIVES! Members of the community who have not yet received the COVID-19 vaccine and would like to receive it can visit one of [facility] vaccine clinics. There are many vaccine clinic locations within the [facility]. For locations and available times, please visit [email or web address]. It is important to note that some COVID mobile vaccine clinics are held outdoors and may be canceled in rainy or stormy conditions. To learn more about pediatric vaccinations (ages 5-11), we invite you to visit the [facility] webpage. [email or web address] [email or web address] To learn more about the COVID-19 vaccine, we invite you to visit the [facility] website for a list of frequently asked questions. [email or web address] [facility] Patient Portal Access Instructions: Stay connected with your healthcare team and access your personal medical information anytime with the [facility] Patient Portal. If you would like a full copy of your medical records please contact the [facility] Medical Records Department Sunday through Sunday between 8a.m. and 4:30p.m. Please follow the directions below to access the portal: 1.Access the email account you provided upon registration to the [facility].2.Look for an invitation email from [facility].3.Open the email and access the invitation link: Accept Invitation to [facility] [employer]4.Fill in the required lugo to create your account. Sign into [email or web address] with your username and password that you created in the above steps to stay up to date. You can then view a summary of results, a summary of your visits, and the ability to download your summaries to your computer or send the information securely to a physician. Remember that your healthcare information is confidential, so carefully consider who you will allow to register on the [facility] Patient Portal for access to your information. You can also access the [facility] Patient Portal on the [employer]. Simply click on Health Records under Health Data and then click on the [facility] logo. HOW TO SAFELY DISPOSE OF PRESCRIPTION MEDICATIONS Please use one of the following methods to safely dispose of your unused medications. 1.Use a drug disposal kit: the drug disposal pouch allows you to safely discard your old and unused drugs. Ask your nurse to give you one when you are discharged.2.Visit a local take-back location: Many local pharmacies and police departments have programs that collect old and unwanted prescription drugs. Call your local pharmacy or go to http://Signdat.Cloud Theory/8P8Ba7r to find one close to you.3.Make use of household items: Use cat litter or old coffee grounds to dispose medications if other options are not available. Mix your drugs with these household products, seal them in an airtight container and throw it into the garbage. Call [facility]: [phone] to be sure your drugs can be disposed of in this way. Some medicines may require a different approach.4.Never flush your medications down the toilet. IF YOU HAVE BEEN PRESCRIBED AN OPIOIDS FOR PAIN If you have been prescribed an opioid (such as hydrocodone, oxycodone or morphine), it is critical to understand the possible side effects and risks of opioid pain medications. Even when taken as directed, opioids can have several side effects including: Tolerance, meaning you might need to take more of a medication for the same pain relief. Nausea, vomiting and/or constipation. Sleepiness, dizziness, dry mouth, confusion, depression or itching. Physical dependence, meaning you have withdrawal symptoms when a medication is stopped ? this can develop within a few days. KNOW YOUR RESPONSIBILITIES It is important to know exactly how much and how often to take the opioid pain medications you are prescribed. Never take opioids in higher amounts or more often than prescribed. Do not combine opioids with alcohol or other drugs that cause drowsiness, such as benzodiazepines, also known as benzos, including diazepam and alprazolam, muscle relaxants or sleep aids. Never sell or share prescription opioids. This is illegal. Store opioids in a secure place and out of reach of others (including children, family, friends and visitors). The last page(s) of this document has been signed and retained as a CHART COPY Signatures Patient Education Materials Anxiety Reaction Palpitations Medication Leaflets My discharge plan and instructions have been reviewed and explained to me and I,HELEN ROLAND understand my current condition and have read and understand these discharge instructions. I have received a written copy of the plan/instructions. If I have questions, I am aware that I should contact my doctor. 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: Relationship to Patient: Witness Name/Signature: Date/Time: [facility] Evaluation + Plan note No data available for this section [facility] Diagnosis Acute non-recurrent sinusitis, unspecified location- Primary documented in this encounter [facility] Summary Purpose Family History No Family History Records FoundNo Family History Records FoundNo Family History Records FoundNo Family History Records Found No data available for this section No data available for this section No data available for this section No Family History Records Found Advance Directives No Advanced Directives Records FoundNo Advanced Directives Records FoundNo Advanced Directives Records FoundNo Advanced Directives Records FoundNo Advanced Directives Records Found Additional Source Comments INFORMATION SOURCE (unrecogn ized section and content) DATE CREATED AUTHOR AUTHOR'S ORGANIZ ATION [facility] DATE CREATED AUTHOR AUTHOR'S ORGANIZ ATION 05/17/2022 [facility] DATE CREATED AUTHOR AUTHOR'S ORGANIZ ATION 12/03/2022 [facility] DATE CREATED AUTHOR AUTHOR'S ORGANIZ ATION 2023 [facility] ([place]) Care Team (unrecognized sect ion and content) Care Team Personnel Name: MILKA SCHNEIDER Member Role: Primary Care Physician Address: Address: [address] [place] [address]- Care Team Related Persons Name: WILVER ANA Address: Home [address] [place] [address] [address] [place] [address] Care Team Personnel Name: MILKA SCHNEIDER Member Role: Primary Care Physician Address: Address: [address] [place], [place] [address] [address]- Care Team Related Persons Name: WILVER, ANA Address: Home [address] [place] [address] [address] [place] [address] Care Team Personnel Name: MILKA SCHNEIDER Member Role: Primary Care Physician Address: Address: [facility] [place] [address]- Name: LINSEY FRIEDMAN MD Position: ED Physician Member Role: ED Physician Address: Address: [address] [place] [address]- Name: Gricelda Urrutia RN Position: RN Member Role: ED RN Name: Deepthi Agrawal Coder Position: HIM: Coders Member Role: HIM: Coders Care Team Related Persons Name: WILVER ANA Address: [place] [address] [place] [address] [address] [place] [address] Care Team Personnel Name: MILKA SCHNEIDER Member Role: Primary Care Physician Address: Address: [facility] [place] [address]- Name: ALBIN LAMBERT MD Position: ED Physician Member Role: Attending Physician Address: Address: [facility] [address] [place] [address]- [place] Care Team Related Persons Name: ANA ROLAND Address: [address] [place] [address] Care Team Personnel Name: MILKA SCHNEIDER Member Role: Primary Care Physician Address: Address: [address] [place] [id number]- Name: LINSEY FRIEDMAN MD Position: ED Physician Member Role: ED Physician Address: Address: [address] [place] [address]- Care Team Related Persons Name: ANA ROLAND Address: Home [address] [place] [address] Care Team Personnel Name: MILKA SCHNEIDER Member Role: Primary Care Physician Address: Address: [address] [place] [address]- Name: NYLA GREER MD Position: ED Physician Member Role: ED Physician Address: Address: [address] [place] [id number]- Name: MILTON Conn Position: AO RN Member Role: ED RN Care Team Related Persons Name: ANA ROLAND Address: [address] [place] [address] Care Team Personnel Name: MILKA SCHNEIDER Member Role: Primary Care Physician Address: Address: [address] [place] [address]- Name: MILTON Bragg Position: AO RN Member Role: ED RN Name: GERSON REYNA MD Position: ED Physician Member Role: ED Physician Address: Address: [facility] [address] [place] [address]- Care Team Related Persons Name: ANA ROLAND Address: Home [address] [place] [address] Source Comments (unrecognize d section and content) In the event this informatio n is protected by the Federal Confidentiality of Alcohol and Drug Abuse Patient Records regulations: The Federal rules restrict any use of the information to criminally investigate or prosecute any alcohol or drug abuse patient.[facility] the event this information is protected by the Federal Confidentiality of Alcohol and Drug Abuse Patient Records regulations: The Federal rules restrict any use of the information to criminally investigate or prosecute any alcohol or drug abuse patient.[facility] Health[facility] the event this information is protected by the Federal Confidentiality of Alcohol and Drug Abuse Patient Records regulations: The Federal rules restrict any use of the information to criminally investigate or prosecute any alcohol or drug abuse patient.[facility] Reason for Visit (unrecogniz ed section and content) Reason Comments Cough Chest congestion, PAINTING , chills x 5 days Reason Comments Mouth/Lip Problem Care Teams (unrecognized sec tion and content) Small Machine Bindery Operator Relationship Specialty [place] [address] [place] [address] Physician Rheumatology 03/23/20 Small Machine Bindery Operator Relationship Specialty Start Date End Date Milka Schneider MD [address] [place] [address] PCP - General Family Medicine 10/30/22 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 This clinical summary was aggregated from multiple sources. Caution should be exercised in using it in the provision of clinical care. This summary normalizes information from multiple sources, and as a consequence, information in this document may materially change the coding, format and clinical context of patient data. In addition, data may be omitted in some cases. CLINICAL DECISIONS SHOULD BE BASED ON THE PRIMARY CLINICAL RECORDS. [employer] provides no warranty or guarantee of the accuracy or completeness of information in this document.
[2023-06-26 15:53] LABS: T4 Free Direct 1.03 ng/dL (0.76-1.46)
== END | disposition home or self-care (01) ==
LOC: BFHLAB 14:00
PROVIDERS: PCP Family Medicine; Visit Provider Family Medicine
DX: E03.9 Hypothyroidism, unspecified (principal)
CPT/HCPCS: 36415; 84439; 84443; 84481

== ENCOUNTER 2023-07-20 11:32 | Emergency (ER) | payer MEDICAID, SELFPAY ==
[2023-07-20 11:33] VITALS: BP 162/93; PULSE 110; RESP 16; TEMP 36.4; O2SAT 100; BMI 29.0
[2023-07-20] MEDS: Mag Hydrox/Al Hydrox/Simeth 30 ML UDC PO (12:30)
--- NOTE | 2023-07-20 12:38 | EDS_ITS ---
HPI History of Present Illness Chief Complaint: Abd Pain Narrative Narrative: Patient is a 53-year-old female with history of anxiety, hyperlipidemia, GERD who presents to the emergency department with epigastric pain. She states she is currently on antibiotics from the dentist, states that they are big pills and she has a fear of not being able to swallow them. Over the last 2 days, she is been having upper abdominal pain that goes into her chest. She is concerned that it could affect her windpipe. She denies any fever chills nausea or vomiting. She is here for evaluation. [facility] Medical History Allergies Anginal equivalent Anxiety Anxiety Back problem Breast pain, left Carpal tunnel syndrome Chronic neck pain Chronic thoracic back pain Dietary restriction Difficulty swallowing Fat necrosis of breast Former smoker Generalized headaches GERD (gastroesophageal reflux disease) History of echocardiogram History of staph infection History of steroid therapy History of stress test History of ulceration Hormone deficiency Hypertension Hypothyroidism Intertrigo Macromastia Marijuana use Mass of left breast Mass of right breast Methicillin resistant Staphylococcus epidermidis infection Migraine headache Other acute postprocedural pain Shoulder pain Thyroid disease Vision problem Wears glasses Wears partial dentures Home Medications losartan 25 mg tablet (Cozaar) 25 mg PO DAILY 01/27/21 [History Last Taken 10/06/22 07:30] buspirone 5 mg tablet 15 mg PO BID 03/13/23 [History Last Taken 04/30/23] hydroxyzine pamoate 50 mg capsule (Vistaril) 50 mg PO DAILY 03/13/23 [History Last Taken 04/30/23] cyclobenzaprine 10 mg tablet 10 mg PO TID PRN Muscle Spasm #20 TABLETS 04/04/23 [Rx Last Taken 04/30/23] dicyclomine 10 mg capsule 10 mg PO TID 04/26/23 [History Last Taken Unknown] ondansetron 4 mg disintegrating tablet 4 mg PO Q8H PRN PRN Nausea #10 tabs 05/02/23 [Rx Last Taken Unknown] levothyroxine 100 mcg tablet 100 mcg PO DAILY 07/20/23 [History Last Taken Unknown] sucralfate 1 gram tablet (Carafate) 1 g PO TID #30 tabs 07/20/23 [Rx Last Taken Unknown] trazodone 50 mg tablet 50 mg PO DAILY 07/20/23 [History Last Taken Unknown] valacyclovir 500 mg tablet 500 mg PO Q12H PRN cold sores 07/20/23 [History Last Taken Unknown] Allergy/AdvReac Type Severity Reaction Status Date / Time azithromycin Allergy Diarrhea Verified 05/02/23 12:23 [From Zithromax Z-Keo] sumatriptan [From Imitrex] Allergy TUNNEL Verified 05/02/23 12:23 VISION sumatriptan succinate Allergy TUNNEL Verified 05/02/23 12:23 [From Imitrex] VISION tramadol AdvReac nausea and Verified 05/02/23 12:23 vomiting Family History Other Anxiety Depression Epilepsy Hormone deficiency Hypertension Seizures Surgical History History of bilateral breast reduction surgery History of breast lump/mass excision History of carpal tunnel release History of esophagogastroduodenoscopy (EGD) S/P correction of deviated nasal septum S/P hysterectomy S/P laparoscopic cholecystectomy S/P left knee surgery S/P tubal ligation S/P wisdom tooth extraction Social History household members: significant other Smoking Status: Former smoker alcohol intake: never substance use type: does not use additional social history: Does Not Take Aspirin Does Not Take Ibuprofen ROS ROS ED ROS Narrative Constitutional: Negative for fever, chills, weight loss, weakness Eyes: Negative for vision loss, vision change, double vision ENT: Negative for any sore throat, ear pain, congestion Cardiovascular: Negative for any chest pain, tightness, palpitations. Positive epigastric pain Respiratory: Negative for any cough, sputum production, hemoptysis, dyspnea, dyspnea on exertion, orthopnea Gastrointestinal: Negative for any abdominal pain, nausea, vomiting, diarrhea, constipation, blood in stool, blood in vomit : Negative for any urinary frequency, dysuria, retention, blood in urine Muscle skeletal: Negative for any myalgias, arthralgias, neck pain, back pain Neurological: Negative for any headache, syncope, paresthesias, dizziness Skin: Negative for any rashes, lumps, itching, abrasions, lacerations Psychiatric: Negative for any depression, anxiety, stress, suicidal ideation, homicidal ideation Hematologic: Negative for any easy bruising, excessive bruising, easy bleeding Allergies: Negative for any eczema, hives, rash EXAM Physical Exam Narrative Exam Narrative: Vital signs reviewed. HEET: Head normocephalic atraumatic, TMs clear bilaterally. Posterior pharynx is clear, moist mucous membranes. Nares clear bilaterally. Neck: Supple with no lymphadenopathy or tenderness. No signs of meningismus. Cardiac: Regular rate and rhythm no murmurs gallops or rubs, equal peripheral pulses bilaterally. Respiratory: Lungs clear to auscultation bilaterally. No chest tenderness. Abdomen: Soft, nontender, nondistended. No abdominal bruit or pulsatile masses. No hepatosplenomegaly Extremities: No peripheral edema, no signs of gross trauma or deformity. Active full range of motion of all extremities. Neuro: Cranial nerves II through XII intact, no focal neurological deficits. Skin: Clean dry and intact with no rash, purpura, petechiae, vesicles or pustules. Backs/flank: No CVA tenderness, no midline spinal tenderness, no deformity. Psych: Normal mood and affect. No SI, HI or acute psychosis. Const Vital Signs: 07/20/23 11:33 Temperature 97.5 F L Temperature Source Temporal Pulse Rate 110 H Respiratory Rate 16 Blood Pressure 162/93 H Blood Pressure Mean 116 Pulse Ox 100 Oxygen Delivery Method Room Air Positive well nourished and well developed General Appearance ED: well developed MDM MDM Lab Data Labs: Laboratory Results - last 24 hr 07/20/23 12:25 WBC 6.7 RBC 4.54 Hgb 13.0 Hct 41.2 MCV 90.7 MCH 28.6 MCHC 31.6 L RDW Std Deviation 45.4 H RDW Coeff of Dylon 13.7 Plt Count 267 MPV 9.6 Immature Gran % (Auto) 0.100 Neut % (Auto) 59.3 Lymph % (Auto) 28.1 [place] % (Auto) 7.4 Eos % (Auto) 4.5 Baso % (Auto) 0.6 Absolute Neuts (auto) 4.0 Absolute Lymphs (auto) 1.89 Nucleated RBC % 0 Sodium 139 Potassium 4.7 Chloride 110 H Carbon Dioxide 27.0 Anion Gap 2 L BUN 13 Creatinine 1.18 H Estim Creat Clear Calc 64.93 Est GFR (MDRD) Af Amer 62 Est GFR (MDRD) Non-Af 51 L BUN/Creatinine Ratio 11.0 Glucose 97 Calcium 10.6 H Total Bilirubin 0.60 AST 43 H ALT 36 Alkaline Phosphatase 99 Troponin I High Sens 12 Total Protein 8.2 Albumin 3.8 Globulin 4.4 H Albumin/Globulin Ratio 0.9 Lipase 25 EKG Normal sinus rhythm: Attestation: I personally reviewed and interpreted this EKG as follows: Comments: Normal sinus rhythm, rate of 90 bpm, ME interval 184 ms, QRS duration 94 ms, no acute ST elevation, no acute infarct noted. Treatment and Re-Evaluation :: Patient appears generally well, patient appears nontoxic, vital signs are stable. Presenting to the emergency department for 2 to 3 days of epigastric pain. Differential diagnosis includes ACS, MD, GERD, gastritis. Patient did receive a cardiac workup, EKG was unremarkable. No imaging is needed at this time. I do have a strong suspicion that this is gastritis/epigastric GERD irritation pain from her antibiotic. Patient be given a GI cocktail to see if this helps. Patient be reevaluated Patient's CBC was unremarkable, chemistries were unremarkable, troponin was negative. On reevaluation, the patient was feeling much better after the GI cocktail. Patient denies any nausea or vomiting. Patient be given Carafate for home. There is no evidence of any ACS or MD. She is happy with the plan of care, all questions answered, patient stable for discharge. Discharge Plan Triage Chief Complaint: Abd Pain ED Midlevel Provider: Wagner Lamb ED Provider: Melo Orosco Dx/Rx/DC Orders Clinical Impression: Anxiety, Gastroesophageal reflux disease Instructions: ED GERD (Adult) Prescriptions: New sucralfate [Carafate] 1 gram tablet 1 g PO TID Qty: 30 0RF No Action losartan [Cozaar] 25 mg tablet 25 mg PO DAILY hydroxyzine pamoate [Vistaril] 50 mg capsule 50 mg PO DAILY buspirone 5 mg tablet 15 mg PO BID Patient Comments: take 1 tablet by mouth twice a day for anxiety dicyclomine 10 mg capsule 10 mg PO TID Patient Comments: take 1 tablet by mouth BEFORE EVERY MEAL AND AT BEDTIME cyclobenzaprine 10 mg tablet 10 mg PO TID PRN (Reason: Muscle Spasm) Qty: 20 0RF levothyroxine 100 mcg tablet 100 mcg PO DAILY Patient Comments: TAKE 1 TABLET BY MOUTH EVERY DAY trazodone 50 mg tablet 50 mg PO DAILY Patient Comments: TAKE 1 TABLET BY MOUTH AT BEDTIME valacyclovir 500 mg tablet 500 mg PO Q12H PRN (Reason: cold sores) Patient Comments: TAKE 1 TABLET BY MOUTH 2 TIMES A DAY for 3 days for outbreak ondansetron [ondansetron] 4 mg tablet,disintegrating 4 mg PO Q8H PRN PRN (Reason: Nausea) Qty: 10 0RF Primary Care Provider: Milka Schneider Referrals: Milka Schneider MD [Primary Care Provider] - Activity Restrictions/Additional Instructions: Please return for any worsening symptoms. Ensure that use the Carafate before meals Disposition Disposition: Home, Self Care
[2023-07-20 12:40] LABS: Absolute Lymphocyte Count 1.89 X10^3/uL (0.83-4.51); Basophil# 0.04 X10^3/uL; Basophil% 0.6 % (0-1); Eosinophils% 4.5 % (0-5); Hematocrit 41.2 % (37-47); Lymphocyte # 1.89 X10^3/ul (0.83-4.51); Lymphocyte % 28.1 % (19-41); Mean Corp Hgb Conc 31.6 g/dL (32-36); Mean Corpuscular Hgb 28.6 pg (27.0-32.0); Mean Corpuscular Volume 90.7 fL (81-99); Mean Platelet Vol. 9.6 fl (6.2-12.0); Monocyte% 7.4 % (0-10); NRBC Flagged by Analyzer 0 % (0-5); Neutrophil # 3.99 X10^3/uL (2.7-7.7); Neutrophil % 59.3 % (47-70); Platelet Count 267 K/mm3 (150-450); RBC Distribution Width CV 13.7 % (11.6-14.6); RBC Distribution Width SD 45.4 fl (35.1-43.9); Red Blood Count 4.54 M/mm3 (4.2-5.4); White Blood Count 6.7 K/mm3 (4.4-11.0)
[2023-07-20 13:08] LABS: ALB/GLOB Ratio 0.9 RATIO (0.9-2.4); AST(SGOT) 43 U/L (15-37); Alanine Aminotransfer ALT/SGPT 36 U/L (13-56); Albumin, Serum 3.8 g/dL (3.2-5.0); Alkaline Phosphatase 99 U/L (45-117); Anion Gap 2 (5-15); BUN 13 mg/dL (7-18); Calcium,Total 10.6 mg/dL (8.5-10.1); Chloride 110 mmol/L (98-107); Creatinine, Serum 1.18 mg/dL (0.55-1.02); EST Glomerular Filtration Rate 51 mL/min (>60); Est Glom Filt Rate - Afr Amer 62 mL/min (>60); Estimated Creatinine Clearance 64.93 ml/min; Globulin 4.4 g/dL (2.2-4.2); Glucose 97 mg/dL (74-106); Lipase 25 U/L (13-75); Potassium 4.7 mmol/L (3.5-5.1); Protein, Total 8.2 g/dL (6.4-8.2); Sodium Level 139 mmol/L (136-145); Troponin-I HS 12 pg/mL (3.0-54.0)
[2023-07-20 13:28] VITALS: PULSE 80; RESP 16; O2SAT 100
== END 2023-07-20 13:29 | disposition home or self-care (01) ==
PROVIDERS: Nurse Practitioner; Emergency Provider Emergency Medicine; PCP Family Medicine; Visit Provider Emergency Medicine
DX: K21.9 Gastro-esophageal reflux disease without esophagitis (principal); F41.9 Anxiety disorder, unspecified; E78.5 Hyperlipidemia, unspecified; Z79.899 Other long term (current) drug therapy; Z87.891 Personal history of nicotine dependence
CPT/HCPCS: 80053; 83690; 84484; 85025; 93005; 99284; A4216

== ENCOUNTER → 2023-08-13 | Outpatient (CLI) | payer MEDICAID, SELFPAY ==
--- NOTE | 2023-08-13 13:38 | BI_ITS ---
MAMMOGRAPHY - BILATERAL SCREENING REASON FOR EXAM: Female, 53 years old. Routine annual screening examination. PERTINENT HISTORY: Non-contributory. Patient has a history of prior bilateral breast reduction surgery. TECHNIQUE: Digital bilateral breast osito (3D mammographic acquisition) in the CC and MLO projections. 2-D mediolateral oblique (MLO) and craniocaudad (CC) views of both breasts were obtained. CAD: Full Field Digital Mammography with Computer Added Detection was performed. COMPARISON: Comparison is made with prior study March 31, 2022. FINDINGS: Breast Composition: There are scattered areas of fibroglandular density. There are no dominant masses or suspicious calcifications. Once again, the patient is status post bilateral breast reduction surgery. Postoperative changes are seen along the inferior aspects of both breasts. No other significant abnormalities are identified. There has been no significant change since the prior study. BI/SCRN MAMM (CAD)W/OSITO BILAT IMPRESSION: Stable bilateral screening mammogram. Yearly follow-up mammogram recommended. (A) ASSESSMENT CATEGORY: BIRADS Category 2: Benign. A letter regarding these results will be sent to the patient by the facility within 30 days. Approximately 10% of breast cancers are not detected by mammography. A normal mammogram should not delay biopsy of a clinically suspicious abnormality. [id number] Electronically Signed: Ivan Durand MD at 18:59 EST ,
== END | disposition home or self-care (01) ==
LOC: OPBI 13:36
PROVIDERS: PCP Family Medicine; Referring Provider Family Medicine; Visit Provider Family Medicine
DX: Z12.31 Encounter for screening mammogram for malignant neoplasm of breast (principal)
CPT/HCPCS: 77063; 77067

== ENCOUNTER 2023-10-19 08:12 | Day surgery (SDC) | payer MEDICAID, SELFPAY ==
[2023-10-19] VITALS (7 sets, daily range): BP systolic 105–127; BP diastolic 57–83; PULSE 53–71; RESP 16–20; TEMP 36.1–36.5; O2SAT 95–100; BMI 27.9
[2023-10-19] MEDS: Lactated Ringers 1,000 ML 15 ML IV (09:03)
--- NOTE | 2023-10-19 09:09 | HP.PCM_ITS ---
History and Physical Date of Admission: 10/19/23 Intake Vital Signs 09/06/2415:16 09/19/2407:05 Height 5 ft 8 in 5 ft 8 in Weight: 190 lb 189 lb BMI 28.8 28.7 BP 125/82 H 133/86 H Blood Pressure Location Rt brachial Rt brachial Position Sitting Sitting Respiration 17 Pulse 90 74 Pulse Source Monitor Monitor Temp 97.2 F L Temp Source Temporal Pulse Oximetry (%) 99 Oxygen Delivery Method room air Intake Visit Reasons: GERD- EGD Chief Complaint: GERD Is patient in pain?: No Allergies azithromycin [From Zithromax Z-Keo] Allergy (Verified 09/19/23 08:06) Diarrheasumatriptan [From Imitrex] Allergy (Verified 09/19/23 08:06) TUNNEL VISIONsumatriptan succinate [From Imitrex] Allergy (Verified 09/19/23 08:06) TUNNEL VISIONtramadol Adverse Reaction (Verified 09/19/23 08:06) nausea and vomiting Medications losartan 25 mg tablet (Cozaar) 25 mg PO DAILY 01/27/21 [History Confirmed 09/19/23] buspirone 5 mg tablet 15 mg PO BID 03/13/23 [History Confirmed 09/19/23] hydroxyzine pamoate 50 mg capsule (Vistaril) 50 mg PO DAILY 03/13/23 [History Confirmed 09/19/23] cyclobenzaprine 10 mg tablet 10 mg PO TID PRN Muscle Spasm #20 TABLETS 04/04/23 [Rx Confirmed 09/19/23] dicyclomine 10 mg capsule 10 mg PO TID 04/26/23 [History Confirmed 09/19/23] ondansetron 4 mg disintegrating tablet 4 mg PO Q8H PRN PRN Nausea #10 tabs 05/02/23 [Rx Confirmed 09/19/23] levothyroxine 100 mcg tablet 100 mcg PO DAILY 07/20/23 [History Confirmed 09/19/23] sucralfate 1 gram tablet (Carafate) 1 g PO TID #30 tabs 07/20/23 [Rx Confirmed 09/19/23] trazodone 50 mg tablet 50 mg PO DAILY 07/20/23 [History Confirmed 09/19/23] valacyclovir 500 mg tablet 500 mg PO Q12H PRN cold sores 07/20/23 [History Confirmed 09/19/23] duloxetine 30 mg capsule,delayed release 30 mg PO .COMPLEX #60 caps 09/06/23 [Rx Confirmed 09/19/23] escitalopram oxalate 20 mg tablet (Lexapro) 20 mg PO DAILY 09/06/23 [History Confirmed 09/19/23] lorazepam 1 mg tablet 1 mg PO QDAY PRN 09/06/23 [History Confirmed 09/19/23] PFSH Medical History Allergies Anginal equivalent Anxiety Anxiety Back problem Breast pain, left Carpal tunnel syndrome Chronic neck pain Chronic thoracic back pain Dietary restriction Difficulty swallowing Fat necrosis of breast Former smoker ELLY (generalized anxiety disorder) Generalized headaches GERD (gastroesophageal reflux disease) History of echocardiogram History of staph infection History of steroid therapy History of stress test History of ulceration Hormone deficiency Hypertension Hypothyroidism Intertrigo Macromastia Marijuana use Mass of left breast Mass of right breast Methicillin resistant Staphylococcus epidermidis infection Migraine headache Other acute postprocedural pain Shoulder pain Thyroid disease Vision problem Wears glasses Wears partial dentures Surgical History History of bilateral breast reduction surgery History of breast lump/mass excision History of carpal tunnel release History of esophagogastroduodenoscopy (EGD) S/P correction of deviated nasal septum S/P hysterectomy S/P laparoscopic cholecystectomy S/P left knee surgery S/P tubal ligation S/P wisdom tooth extraction Family History Other Anxiety Depression Epilepsy Hormone deficiency Hypertension Seizures Social History household members: significant other Smoking Status: Former smoker alcohol intake: never substance use type: does not use additional social history: Does Not Take Aspirin Does Not Take Ibuprofen HPI HPI HPI: Patient is a 53-year-old female here for GERD. She had an EGD in 2019. At that time esophagus was normal. She reports that she is having more GERD than she used to. She stated she is also having sore throat and thinks it is from her reflux. She was sent here for EGD to evaluate. ROS General General: Yes fatigue; No weight change, appetite, colon cancer, breast cancer or weakness HEENT HEENT: No difficulty swallowing, eye injury, eye surgery, swollen glands or hoarseness Endo Endocrine: Yes thyroid disease; No diabetes mellitus, thyroid cancer, Hair loss, heat intolerance or cold intolerance Skin Skin: No rash or changing moles Musc Musculoskeletal: Yes back problems; No arthritis, rheumatoid arthritis, gout or joint pain Cardio Cardiovascular: Yes high blood pressure; No murmur, pacemaker, heart disease, atrial fibrillation, heart attack, heart stent, palpitations, shortness of breat with exertion or chest pain Psych Psychiatric: Yes depression and anxiety; No hearing voices Resp Respiratory: No shortness of breath, No sleep apnea, Yes cough, No COPD, No asthma, No emphysema and No wheezing Gastro Gastrointestinal: Yes abdominal pain, Yes nausea or vomiting, No diarrhea, Yes constipation, No blood in stool, Yes acid reflux, No hemorrhoids, No ulcers, No gallbladder problem and No black,tarry stools Wilbur Hematologic: No blood thinners, No blood disorders, No bleeding, No anemia and No blood clots Neuro Neurologic: No system reviewed and no additional complaints, except as documented, No as per HPI, No abnormal gait, No abnormal hearing, No abnormal movements, No abnormal speech, No behavioral changes, No burning sensations, No confusion, No convulsions, No disequilibrium, No dizziness, No localized weakness, No frequent falls, No headache(s), No lack of coordination, No loss of vision, No memory loss, No numbness, No other visual disturbances, No radicular pain, No restless legs, No sensory deficit, No syncope, No tingling, No nikki mor(s), No weakness and No other Exam Const General: cooperative Orientation: alert and oriented x3 [facility] Head: normal to inspection Neck Neck: normal visual inspection and full ROM Chest Chest palpation & inspection: normal inspection of the chest Resp Effort & Inspection: normal respiratory effort Auscultation: clear to auscultation bilaterally Cardio Rate: regular rate Rhythm: regular rhythm GI Inspection: non-distended Palpation: soft and nontender Skin General: no rashes or lesions noted Neuro General: patient alert and patient oriented x3 Extrem General: full ROM Psych Appearance: grossly normal Mental Status: mental status grossly normal Assessment and Plan Assessment and Plan (1) GERD (gastroesophageal reflux disease): Status: Chronic Qualifiers: Esophagitis presence: esophagitis presence not specified Qualified Code(s): K21.9 - Gastro-esophageal reflux disease without esophagitis Orders: Orders EGD 10/19/23 Plan Patient is having more severe GERD than she is used to. She has been on Carafate for this. She is on Pepcid also. This is not helping. She says she tried omeprazole in the past which did not help either. I will perform an EGD to evaluate for esophagitis. I explained endoscopy in detail to the patient. I explained the risks including but not limited to stroke or heart attack with anesthesia, perforation of the GI tract, bleeding, infection. I explained that any of these could necessitate further emergency surgery. The patient understands and all questions were answered sufficiently. The patient wishes to proceed with procedure. Eddie Boss MD Pager: [facility] [address] [place] [address] [address] [place] [address] Office: I have examined the patient and the H&P has been reviewed. There are no clinical changes since date of exam.
--- NOTE | 2023-10-19 09:15 | EGD_PTH ---
PATIENT: HELEN PETTIT LOC: EN U#:[id number] AGE/SX: 53/F ROOM: RE10/19/[address]: Dr. Eddie Boss MD : 1970 BED: DIS: 10/19/2023 SPEC #: [id number] RECD: 10/19/23 10:51 STATUS: RONAK ELLIOTT #: [id number] HALEY: 10/19/23 09:[address]: Eddie Boss DEPT: SURGICAL PATHOLOGY RECD BY: Dianna Rojas ENTERED: 10/19/23 13:41 SP TYPE: EGD BIOPSY OT DR: Dr. Milka Schneider MD Tissues: Stomach, NOS Procedures: Special Stain Group II Surgery Specimen Level IV Alcian Blue/PAS (control) HEADER OPERATION: EGD with biopsies PRE-OP DIAGNOSIS: GERD TISSUE SUBMITTED: Gastroesophageal junction MICROSCOPIC DIAGNOSIS Gastroesophageal junction, biopsy: Fragments of gastroesophageal mucosa with chronic inflammation. Intestinal metaplasia (goblet cell metaplasia) not identified. Focal changes suspicious for eosinophilic esophagitis. See comment. / 10/22/23 COMMENT Alcian blue/PAS stain with matched control is used in the evaluation of the specimen. Specimen predominantly consists of squamous mucosa. Focal mild increased eosinophils (up to 10 per high power) are noted suspicious for eosinophilic esophagitis. Correlation with clinical, endoscopic findings and appropriate follow up are necessary. MICROSCOPIC DESCRIPTION Slides are reviewed. GROSS DESCRIPTION Received in fixative is one container labeled with the patient's name and designated GE junction. The specimen consists of two irregular fragments of light luis soft tissue that in aggregate measure 0.8 x 0.6 x 0.1 cm. The specimen is totally submitted in one cassette. / 10/19/23 TC:3 CPT:30207
--- NOTE | 2023-10-19 09:33 | OP.EGD_ITS ---
Patient Name: Louise Roland Procedure Date: 10/19/2023 9:13 AM Date of : 1970 Age: 53 Procedure: Upper GI endoscopy Indications: Heartburn, Esophageal reflux Providers: Eddie Boss MD Referring MD: Eddie Boss MD Medicines: Propofol per Anesthesia Patient Profile: This is a 53 year old female. Refer to note in patient chart for documentation of history and physical. Complications: No immediate complications. Estimated blood loss: Minimal. Procedure: Pre-Anesthesia Assessment: - Prior to the procedure, a History and Physical was performed, and patient medications and allergies were reviewed. The patient's tolerance of previous anesthesia was also reviewed. The risks and benefits of the procedure and the sedation options and risks were discussed with the patient. All questions were answered, and informed consent was obtained. Prior Anticoagulants: The patient has taken no anticoagulant or antiplatelet agents. After reviewing the risks and benefits, the patient was deemed in satisfactory condition to undergo the procedure. After obtaining informed consent, the endoscope was passed under direct vision. Throughout the procedure, the patient's blood pressure, pulse, and oxygen saturations were monitored continuously. The Endoscope was introduced through the mouth, and advanced to the third part of duodenum. The upper GI endoscopy was accomplished without difficulty. The patient tolerated the procedure well. Scope In: 9:24:16 AM Scope Out: 9:28:19 AM Total Procedure Duration Time 0 hours 4 minutes 3 seconds Findings: Esophagitis with no bleeding was found at the gastroesophageal junction. Biopsies were taken with a cold forceps for histology. The examined duodenum was normal. A small hiatal hernia was present. Impression: - Reflux esophagitis with no bleeding. Biopsied. - Normal stomach. - Normal examined duodenum. Recommendation: - Discharge patient to home. - Resume previous diet. - Continue present medications. Procedure Code(s): --- Professional --- 56608, Esophagogastroduodenoscopy, flexible, transoral; with biopsy, single or multiple Diagnosis Code(s): --- Professional --- K21.00, Gastro-esophageal reflux disease with esophagitis, without bleeding R12, Heartburn CPT copyright 2021 [employer]. All rights reserved. The codes documented in this report are preliminary and upon diving coach review may be revised to meet current compliance requirements. Eddie Boss MD 10/19/2023 9:33:10 AM This report has been signed electronically. Number of Addenda: 0 Note Initiated On: 10/19/2023 9:13 AM
--- NOTE | 2023-10-19 09:33 | OP.CCLET_ITS ---
10/19/2023 Milka Schneider [id number] [facility] [address] [address] Re : Upper GI endoscopy procedure for Louise Roland Dear Dr. Schneider This procedure was performed on Thursday, October 19, 2023. My impressions and recommendations are as follows: Impressions : - Reflux esophagitis with no bleeding. Biopsied. - Normal stomach. - Normal examined duodenum. Recommendations : - Discharge patient to home. - Resume previous diet. - Continue present medications. My findings are described in the full procedure note, which is enclosed. If I can be of further assistance, please feel free to contact me at Doctor phone number(s): , Work: . Sincerely, Eddie Boss MD 10/19/2023 9:33:10 AM This report has been signed electronically.
== END 2023-10-19 10:21 | disposition home or self-care (01) ==
LOC: EN 08:13 → AC 08:14
PROVIDERS: PCP Family Medicine; Referring Provider Family Medicine; Visit Provider Surgery
PROC: 0DJ08ZZ Inspection of Upper Intestinal Tract, Via Natural or Artificial Opening Endoscopic (ICD-10-PCS; CPT 43235; principal; 2023-10-19 09:10)
DX: K21.00 Gastro-esophageal reflux disease with esophagitis, without bleeding (principal); Z87.891 Personal history of nicotine dependence; I10 Essential (primary) hypertension; E03.9 Hypothyroidism, unspecified; Z79.899 Other long term (current) drug therapy; Z79.890 Hormone replacement therapy; K44.9 Diaphragmatic hernia without obstruction or gangrene
CPT/HCPCS: 43239; 88305; 88313; J7120; J2405

== ENCOUNTER → 2023-12-04 | Outpatient (CLI) | payer MEDICAID, SELFPAY ==
[2023-12-04 17:51] LABS: Absolute Lymphocyte Count 1.92 X10^3/uL (0.83-4.51); Absolute Neutrophil Count 5.3 X10^3/uL (2.0-7.7); Basophil# 0.04 X10^3/uL; Basophil% 0.5 % (0-1); Eosinophil# 0.22 X10^3/uL; Eosinophils% 2.8 % (0-5); Hematocrit 37.8 % (37-47); Hemoglobin 11.8 g/dL (12.0-15.0); Lymphocyte # 1.92 X10^3/ul (0.83-4.51); Lymphocyte % 24.2 % (19-41); Mean Corp Hgb Conc 31.2 g/dL (32-36); Mean Corpuscular Volume 92.9 fL (81-99); Mean Platelet Vol. 10.6 fl (6.2-12.0); Monocyte# 0.43 X10^3/uL; Monocyte% 5.4 % (0-10); NRBC Flagged by Analyzer 0 % (0-5); Neutrophil # 5.32 X10^3/uL (2.7-7.7); Neutrophil % 66.8 % (47-70); Platelet Count 310 K/mm3 (150-450); RBC Distribution Width CV 14.7 % (11.6-14.6); RBC Distribution Width SD 50.2 fl (35.1-43.9); Red Blood Count 4.07 M/mm3 (4.2-5.4)
[2023-12-04 18:26] LABS: Free T4 1.05 ng/dL (0.76-1.46); Thyroid Stim Hormone (TSH) 0.85 uIU/mL (0.358-3.74)
== END | disposition home or self-care (01) ==
LOC: MTLAB 15:10
PROVIDERS: PCP Family Medicine; Referring Provider Family Medicine; Visit Provider Family Medicine
DX: E03.9 Hypothyroidism, unspecified (principal); R53.83 Other fatigue
CPT/HCPCS: 36415; 84439; 84443; 84481; 85025

== ENCOUNTER → 2024-01-24 | Outpatient (CLI) | payer MEDICAID, SELFPAY ==
[2024-01-24 18:06] LABS: Absolute Lymphocyte Count 2.25 X10^3/uL (0.83-4.51); Absolute Neutrophil Count 5.6 X10^3/uL (2.0-7.7); Basophil# 0.06 X10^3/uL; Basophil% 0.7 % (0-1); Eosinophil# 0.42 X10^3/uL; Eosinophils% 4.7 % (0-5); Hematocrit 36.1 % (37-47); Hemoglobin 11.3 g/dL (12.0-15.0); Lymphocyte # 2.25 X10^3/ul (0.83-4.51); Mean Corp Hgb Conc 31.3 g/dL (32-36); Mean Corpuscular Volume 92.6 fL (81-99); Mean Platelet Vol. 10.1 fl (6.2-12.0); Monocyte# 0.61 X10^3/uL; Monocyte% 6.8 % (0-10); NRBC Flagged by Analyzer 0 % (0-5); Neutrophil # 5.64 X10^3/uL (2.7-7.7); Neutrophil % 62.5 % (47-70); Platelet Count 270 K/mm3 (150-450); RBC Distribution Width CV 14.2 % (11.6-14.6); RBC Distribution Width SD 48.5 fl (35.1-43.9)
[2024-01-24 18:15] LABS: Erythrocyte Sedimentation Rate 26 mm/hr (0-30)
[2024-01-24 18:26] LABS: CRP 7.01 mg/L (0.0-3.0); Rheumatoid Factor < 10.0 IU/mL (<15)
[2024-01-26 14:09] LABS: CCP IgG Antibodies 9 units (0-19)
[2024-01-29 12:00] LABS: Anti-Nuclear Antibody Test Negative (.)
== END | disposition home or self-care (01) ==
LOC: MTLAB 16:53
PROVIDERS: PCP Family Medicine; Referring Provider Family Medicine; Visit Provider Family Medicine
DX: M25.50 Pain in unspecified joint (principal)
CPT/HCPCS: 36415; 85025; 85652; 86038; 86140; 86200; 86431

== ENCOUNTER → 2024-06-17 | Outpatient (CLI) | payer BC, SELFPAY ==
--- NOTE | 2024-06-17 10:02 | RAD_ITS ---
STUDY: X-RAY - PELVIS AND RIGHT HIP REASON FOR EXAM: Female, 53 years old. PAIN IN HIP TECHNIQUE: 3 views of the pelvis and hip. COMPARISON: 01/12/2021 FINDINGS: There is a non-specific bowel gas pattern. Normal visualized soft tissue structures. Normal bilateral iliac wings, sacroiliac joints and visualized sacrum. Normal bilateral superior and inferior pubic rami. Normal pubic symphysis. Normal bilateral ischial tuberosities. Normal visualized femoral head. Normal acetabulum. Normal hip joint. RAD/HIP, UNI W/ Pelvis 2-3 Views IMPRESSION: Normal x-ray examination of the pelvis and hip. Electronically Signed: Garfield Bowden MD at 23:19 EST ,
== END | disposition home or self-care (01) ==
PROVIDERS: PCP Family Medicine; Referring Provider Nurse Practitioner Family; Visit Provider Nurse Practitioner Family
DX: M25.551 Pain in right hip (principal)
CPT/HCPCS: 73502

== ENCOUNTER → 2024-07-09 | Outpatient (CLI) | payer BC, SELFPAY ==
--- NOTE | 2024-07-09 16:50 | RAD_ITS ---
EXAM: XR LUMBOSACRAL SPINE, 2 OR 3 VIEWS CLINICAL INDICATION: Low back pain, unspecified TECHNIQUE: Frontal and lateral views of the lumbar spine and sacrum. COMPARISON: 01/12/2021. FINDINGS: VERTEBRAE: Unremarkable. Preserved vertebral body height. No fracture. No spondylolisthesis. Preservation of the normal lumbar lordosis. No significant facet arthropathy. DISC SPACES: No acute findings. Disc spaces are maintained. GASTROINTESTINAL TRACT: Unremarkable as visualized. Included bowel gas pattern is non-obstructive. RAD/Lumbar Spine 2 or 3 Views IMPRESSION: Normal lumbar spine radiographs and unchanged. Electronically Signed: Anand Rogers MD at 16:11 EST ,
== END | disposition home or self-care (01) ==
LOC: RAD 16:49
PROVIDERS: PCP Family Medicine; Referring Provider Anesthesiology Pain Medicine; Visit Provider Anesthesiology Pain Medicine
DX: M54.50 Low back pain, unspecified (principal)
CPT/HCPCS: 72100

== ENCOUNTER 2024-07-14 17:00 | Outpatient (RCR) | payer BC, SELFPAY ==
--- NOTE | 2024-06-20 15:05 | HP.PTEVAL ---
Patient's Visit Information Visit Information Visit Information: HELEN PETTIT is a 53 year old F referred to Physical Therapy by Dr. Milka Schneider MD with a diagnosis of R hip pain. Date of Evaluation: 06/20/24 Physical Therapist: Ángel Nielson, PT, ATC Visit Plan Frequency: 2-3x /Week Duration: 4-6 Weeks Plan: Postural edu, REIL, core stab ex's, and HEP Subjective Subjective: Pt reports she had R groin pain for approximately 2 weeks. Pt notes her pain has since moved to her posterior hip and and LB region. 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 Pt notes she experiences increased pain when she bends forward to grain picker items. Pt notes the pain will occasionally radiate down her R LE to her mid hamstring region. Pt reports sleep difficulty secondary to pain. Pt reports prolonged standing and walking both increases her pain. Pt also notes increased pain with sitting. Pt reports she has to continually change positions in order to control her pain. Pt notes descending stairs is really hard for her as well secondary to R hip pain. 9/10 pain while sitting here in the clinic, 10/10 at worst. Pain R hip pain: Pain Intensity (Out of 10): 9 Pain Intensity Range: 10 Objective Objective: Neuro: B LE sensation is WNL to light touch TU seconds MMT: B LE's are grossly 4-/5 throughout and are limited by LBP ROM: Pt is severely limited with L/S ext ROM Repeated movements: REIL 10x2 decreased pain Balance/Special Test Scores Lower Extremity Functional Score: 16 Goals Goal 1:: Decrease LBP x 50% to aid with sleep Goal Time Frame: 4-6 Weeks Goal 2:: Increase L/S ext ROM x 1 grade to aid with decreasing LBP Goal Time Frame: 4-6 Weeks Goal 3:: Decrease the frequency and intensity of R LE radiculopathy x 50% to aid with ambulation Goal Time Frame: 4-6 Weeks Goal 4:: I with HEP Goal Time Frame: 4-6 Weeks Rehabilitation Potential Physical Therapy Diagnosis: Pt has R hip pain, R LE radiculopathy, and limited L/S ROM secondary to lumbar spine disc derangement Rehabilitation Potential: Good Anticipated Interventions Patient/Client Instruction: Educate patient on: Condition and Plan of Care For the Purpose of:: To improve self management Therapeutic Exercise to Include: Strength training, Endurance training, Postural training, Flexibilty training, Dynamic Lumbar Stabilization and Eliel Exercises For the Purpose of:: To decrease pain, To increase ROM and To improve muscle performance and motor function Text: Thank you for the opportunity to evaluate your patient. For Medicare and Medicare HMO plans, please review the plan of care and approve it. It will need to be FAXED BACK to us at [phone] for Medicare purposes. For Medicare only, by signing this I certify the plan of care. Please let me know if there are questions or concerns regarding this plan of care. Physician Signature: Date:
--- NOTE | 2024-09-04 10:43 | HP.PT.NRP ---
Patient Information Patient Information: HELEN PETTIT was seen in my office for initial evaluation on 06/20/24. The following Plan of Care was established for this patient: POC Established Initial Frequency: 2-3x /Week Initial Duration: 4-6 Weeks Anticipated Interventions Patient/Client Instruction: Educate patient on: Condition and Plan of Care For the Purpose of:: To improve self management Therapeutic Exercise to Include: Strength training, Endurance training, Postural training, Flexibilty training, Dynamic Lumbar Stabilization and Eliel Exercises For the Purpose of:: To decrease pain, To increase ROM and To improve muscle performance and motor function Last Seen Last Seen: This patient was last seen in our office . Pertinent comments regarding their Physical therapy will appear below: Pt has not returned in greater than 30 days and is discharged at this time. At this point I will be discontinuing this patient from physical therapy. I would be happy to see this patient again in the future if found appropriate by the physician. Thank you! Ángel Nielson, PT, ATC Balance/Gait/Functional tests Balance/Special Test Scores Lower Extremity Functional Score: 16
== END 2024-07-14 19:00 | disposition home or self-care (01) ==
LOC: PT 17:00
PROVIDERS: PCP Family Medicine; Referring Provider Family Medicine; Visit Provider Family Medicine
DX: R10.30 Lower abdominal pain, unspecified (principal)
CPT/HCPCS: 97110; 97161

== ENCOUNTER → 2024-08-18 | Outpatient (CLI) | payer BC, SELFPAY ==
[2024-08-18 09:33] LABS: Cholesterol 47 mg/dL (<=200); Free T3 2.4 pg/mL (2.18-3.98); High Density Lipoprotein 88 mg/dL; Low Density Lipoprotein Calc. -50 mg/dL; Triglycerides 45 mg/dL; Very Low Density Lipoprotein 9 mg/dL (5-40); cholesterol:hdl ratio screen 0.53
== END | disposition home or self-care (01) ==
LOC: LAB 07:31
PROVIDERS: PCP Family Medicine; Referring Provider Family Medicine; Visit Provider Family Medicine
DX: I10 Essential (primary) hypertension (principal); E03.9 Hypothyroidism, unspecified; R53.83 Other fatigue
CPT/HCPCS: 36415; 80061; 84439; 84443; 84481

== ENCOUNTER → 2024-10-01 | Outpatient (CLI) | payer BC, SELFPAY ==
--- NOTE | 2024-10-01 09:42 | RAD_ITS ---
EXAM: Left foot CLINICAL HISTORY: Air conditioner fell on the foot. COMPARISON: None TECHNIQUE: Three views of the left foot were obtained. FINDINGS: No fracture is seen. Mild degree of joint space narrowing at the 1st metatarsophalangeal joint. Soft tissue swelling. RAD/Foot min 3 Views IMPRESSION: No fracture seen. Mild degenerative changes at the 1st metatarsophalangeal joint. Soft tissue swelling. Reading Location: [facility]
== END | disposition home or self-care (01) ==
LOC: MTRAD 09:42
PROVIDERS: PCP Family Medicine; Referring Provider Physician Assistant; Visit Provider Physician Assistant
DX: M79.672 Pain in left foot (principal)
CPT/HCPCS: 73630

== ENCOUNTER 2024-12-04 04:15 | Emergency (ER) | payer BC, SELFPAY ==
[2024-12-04 04:15] VITALS: BP 172/82; PULSE 91; RESP 16; TEMP 36.6; O2SAT 100; BMI 23.6
--- NOTE | 2024-12-04 04:35 | EKG12_ITS ---
Test Reason : DYSRHYTHMIA Blood Pressure : */* mmHG Vent. Rate : 65 BPM Atrial Rate : 65 BPM P-R Int : 188 ms QRS Dur : 100 ms QT Int : 404 ms P-R-T Axes : 32 49 59 degrees QTcB Int : 420 ms Normal sinus rhythm Normal ECG Confirmed by MEKHI VALENZUELA, JORGE LUIS ([id number]), state editor COLTON MELGAR ([id number]) on 12/05/2024 1:04:11 PM Referred By: Confirmed By: JORGE LUIS GAMING MD
[2024-12-04] MEDS: Ketorolac 30 MG/ML Syringe IM (04:38)
[2024-12-04] MEDS: Orphenadrine 60 MG/2 ML Ampul IM (04:39)
[2024-12-04 04:43] VITALS: BP 153/75
--- NOTE | 2024-12-04 04:50 | RAD_ITS ---
PROCEDURE: SHOULDER MIN 2 VIEWS 12/04/2024 REASON FOR EXAM: PAIN TECHNIQUE: SHOULDER MIN 2 VIEWS COMPARISON: None. FINDINGS: Mild osteopenia of the visualized bones. Degenerative joint disease. No fracture or dislocation is seen. No lytic or blastic bone lesion is noted. RAD/Shoulder min 2 Views IMPRESSION: No evidence for acute abnormality. Reading [facility]
--- OUTSIDE RECORDS SUMMARY | 2024-12-04 05:00 | XMS RPT_ITS | CCD ---
Author Organization [facility] Care Team Providers Care Filter Press Tender Name Role Phone [facility] Unavailable Unavailable Dr. Milka Schneider Primary Care Provider [phone] Dr. Milka Schneider Referring Provider Dr. Alexsander Eckert Attending Provider [phone] Dr. Alexsander Eckert Admit Provider [phone] Alexsander Eckert Referring Provider [phone] Dr. Alexsander Eckert Other Provider Ebenezer PAYROLL ASSISTANT, PAYROLL ASSISTANT-C Vickie E Attending Provider Dr. Luis Waller Attending Provider [phone] Dr. Milka Schneider Primary Care Provider [phone] Dr. Milka Schneider Referring Provider Ebenezer PAYROLL ASSISTANT, PAYROLL ASSISTANT-C Vickie E Attending Provider Dr. Milka Schneider Primary Care Provider [phone] Dr. Milka Schneider Referring Provider Ebenezer PAYROLL ASSISTANT, PAYROLL ASSISTANT-C Vickie E Attending Provider [phone] Dr. Milka Schneider Primary Care Provider [phone] Dr. Milka Schneider Referring Provider Ebenezer PAYROLL ASSISTANT, PAYROLL ASSISTANT-C Vickie E Attending Provider MILKA SCHNEIDER Primary Care Physician Dr. Milka Schneider Primary Care Provider [phone] Dr. Milka Schneider Referring Provider Ebenezer PAYROLL ASSISTANT, LORENA-Zana Colin Attending Provider [phone] MILKA SCHNEIDER Consulting Unavailable MILKA SCHNEIDER Referring Unavailable TIM, DR CHRISTOPHER Colin Admitting Unavaila ble TIM, DR CHRISTOPHER Colin Primary Care Unavaila ble TIM, DR CHRISTOPHER Colin Attending Unavaila ble PROVIDER, UNKNOWN Consulting Unavailable PROVIDER, UNKNOWN Consulting Unavailable Mitch, Bear Chi Primary Care Provider Eric Whitfield MD Unavailable Dr. Milka Schneider Primary Care Provider [phone] Dr. Milka Schneider Referring Provider [phone] Dr. Alexsander Eckert Attending Provider [phone] Dr. Milka Schneider Primary Care Provider [phone] Dr. Milka Schneider Referring Provider [phone] Dr. Alexsander Eckert Attending Provider [phone] Eric Whitfield MD Unavailable Dr. Alexsander Eckert Referring Provider [phone] Dr. Alexsander Eckert Other Provider [phone] Milka Schneider Primary Care Provider [phone] Dr. Troy Vazquez Attending Provider [phone] Alexsander Eckert Referring Provider [phone] Dr. Alexsander Eckert Attending Provider [phone] Dr. Milka Schneider Referring Provider [phone] Ebenezer PAYROLL ASSISTANT, FRANCOIS Colin Attending Provider Milka Schneider MD Primary Care Provider Dr. Milka Schneider Primary Care Provider [phone] EVELYN SOLIS DO Attending Unavailable MILKA SCHNEIDER Primary Care Unavailable DR CHARTIY MORROW MD Attending Unavailabl e MIEDEL, BRUNO Primary Care Unavailable KARMA GE DO Attending Unavailable MIED, BRUNO Primary Care Unavailable DR LUBA BAUGH DO Attending Unavailable MIED, BRUNO Primary Care Unavailable JAIME CARPENTER MD Attending Unavailable MIED, BRUNO Primary Care Unavailable Misam VALENZUELA, Homeland E Primary Care Provider Wyatt VALENZUELA Homeland E Primary Care Provider MIEDEL, MILKA E Primary Care Unavailable MIEDEL, MILKA E Primary Care Unavailable MIEDEL, MILKA E Primary Care Unavailable ARACELI BURNS Referring Unavailable MIED, MILKA E Primary Care Unavailable Samir Carranza Attending Unavailable Samir Carranza Referring Unavailable Miedel, Milka Primary Care Unavailable Fled, Milka Primary Care Unavailable Raquel Milton Attending Unavailable Raquel Milton Referring Unavailable Miedel, Milka Primary Care Unavailable Miedel, Milka Attending Unavailable Miedel, Milka Referring Unavailable Miedel, Milka Primary Care Unavailable Omaira Reilly Attending Unavailable KayyiJoanneman Referring Unavailable Miedel, Milka Primary Care Unavailable Miedel, Milka Attending Unavailable Miedel, Milka Referring Unavailable Miedel, Milka Primary Care Unavailable Miedel, Milka Attending Unavailable Miedel, Milka Referring Unavailable Samir Couch Attending Unavailable Mied, Milka Primary Care Unavailable Samir Carranza Attending Unavailable Miedel, Milka Referring Unavailable Miedel, Milka Primary Care Unavailable Samir Carranza Attending Unavailable Miedel, Milka Referring Unavailable Miedel, Milka Primary Care Unavailable Samir Couch Attending Unavailable Miedel, Milka Primary Care Unavailable Samir Couch Attending Unavailable Miedel, Milka Primary Care Unavailable Miedel, Milka Attending Unavailable Miedel, Milka Referring Unavailable Miedel, Milka Primary Care Unavailable Allergies Allergy Classification Reported Allergen(s) Allergy Type Date of Onset Reaction(s) Facility Macrolides (antibiotic) (1 source) Azithromycin; Translations: [azithromycin] Drug Allergy [facility] Serotonin-1b and Serotonin-1d Receptor Agonists (1 source) SUMAtriptan; Translations: [sumatriptan] Drug Allergy tunnel vision [facility] (17 sources) Dust; Translations: [DUST] Propensity to adverse reactions (disorder) 0 Itching [facility] Repository (20 sources) SUMAtriptan; Translations: [SUMATRIPTAN] Drug Allergy 0 Other: See Comments, Other [facility] Repository (20 sources) Azithromycin; Translations: [azithromycin] Drug Allergy 1 Diarrhea [facility] (3 sources) cow milk allergenic extract Drug Allergy 9 Swelling [facility] (18 sources) SUMAtriptan; Translations: [sumatriptan succinate] Drug Allergy 2 TUNNEL VISION [facility] (18 sources) traMADol; Translations: [tramadol] Drug Allergy 2 nausea and vomiting [facility] (3 sources) Cow milk Propensity to adverse reactions to drug 9 Swelling [facility] Work Phone: (1 source) Azithromycin Drug Allergy 5 [facility] Repository (1 source) traMADol Drug Allergy 5 [facility] Repository Medications Current Medications Medication Drug Class(es) Dates Sig (Normalized) Sig (Original) Acetaminophen / Codeine (6 sources) Opioid Agonist Start: 11-11-2022 Tylenol with Codeine liquid use acetaminophen-code ine liquid See Instructions, 10 cc Oral q6hr, # 120 mL, 0 Refill(s), Pain in epigastric region on palpation, 70.5 Start Date: 11/11/22 Status: Ordered acetaminophen 325 mg / oxyCODONE hydrochloride 5 mg oral tablet (20 sources) Opioid Agonist Start: 10-24-2022 End: 11-06-2022 oxyCODONE-acetamin ophen (PERCOCET) 5-325 mg tablet take 1 tablet by mouth twice a day if needed for pain SCORE OF 7-10 FOR 7 DAYS 10/24/2022 Active Start: 10-13-2022 End: 10-20-2022 take 1 tablet by mouth three times daily Oxycodone-Acetaminophen (Percocet) 5-325 mg tablet Discontinued 1 TABLET PO THREE TIMES A DAY 05 01October 13, 2022 October 20, 2022 12:05am Start: 10-06-2022 End: 10-17-2022 take 1 tablet by mouth every six hours Oxycodone-Acetaminophen (Percocet) 5-325 mg tablet Discontinued 1 TABLET PO EVERY 6 HOURS 12 01October 06, 2022 October 17, 2022 2:41pm 28 tabs (twenty-eight) Start: 09-13-2021 End: 09-20-2021 take 1 tablet by mouth twice daily Oxycodone-Acetaminophen (Percocet) 5-325 mg tablet Discontinued 1 TABLET PO TWICE A DAY 29 12September 13, 2021 September 20, 2021 12:03am 14 tabs (fourteen) Start: 09-06-2021 End: 09-13-2021 take 1 tablet by mouth three times daily Oxycodone-Acetaminophen (Percocet) 5-325 mg tablet Discontinued 1 TABLET PO THREE TIMES A DAY 05 01September 07, 2021 September 13, 2021 3:03pm Start: 08-31-2021 End: 09-07-2021 take 1 tablet by mouth twice daily Oxycodone-Acetaminophen (Percocet) 5-325 mg tablet Discontinued 1 TABLET PO TWICE A DAY 29 12August 31, 2021 September 07, 2021 12:03am Start: 08-26-2021 End: 09-01-2021 take 1 tablet by mouth three times daily Oxycodone-Acetaminophen (Percocet) 5-325 mg tablet Discontinued 1 TABLET PO THREE TIMES A DAY 04 01August 26, 2021 September 01, 2021 3:41pm Start: 08-15-2021 End: 08-22-2021 take 1 tablet by mouth every six hours Oxycodone-Acetaminophen (Percocet) 5-325 mg tablet Discontinued 1 TABLET PO EVERY 6 HOURS 12 01August 15, 2021 August 22, 2021 1:03am Start: 08-04-2021 End: 08-15-2021 take 1 tablet by mouth every four hours Oxycodone-Acetaminophen (Percocet) 5-325 mg tablet Discontinued 1 TABLET PO Q4H 7 August 04, 2021 August 15, 2021 5:41pm Comment on above: take 1 tablet by christine th twice a day if needed for pain SCORE OF 7-10 FOR 7 DAYS amoxicillin 875 mg oral tablet (1 source) Penicillin-class Antibacterial Start: 10-31-19 End: 11-05-19 take 1 tablet by mouth twice daily amoxicillin (AMOXIL) 875 mg tablet Indications: Acute non-recurrent sinusitis, unspecified location Take 1 tablet by mouth twice daily for 5 days. 10 tablet 0 10/30/2022 11/04/2022 Active Comment on above: Take 1 tablet by christine th twice daily for 5 days. amoxicillin 875 mg / clavulanate 125 mg oral tablet (2 sources) Penicillin-class Antibacterial Start: 09-03-19 End: 09-10-19 take 1 tablet by mouth twice daily amoxicillin-clavulanat e potassium (AUGMENTIN) 875-125 mg per tablet Indications: Rhinosinusitis Take 1 tablet by mouth two times a day for 7 days. 14 tablet 09/02/2024 09/09/2024 Active Start: 10-27-2022 End: 10-30-2022 take 1 tablet by mouth twice daily amoxicillin-clavulanic acid (AUGMENTIN) 875-125 mg per tablet Indications: Bacterial sinusitis Take 1 tablet by mouth twice daily for 7 days. 14 tablet 0 10/27/2022 10/30/2022 Discontinued (Side Effects) Comment on above: Take 1 tablet by christine th twice daily for 7 days. Bisacodyl (3 sources) Stimulant Laxative Bisacodyl (MA GIC BULLETS RECTAL) Insert in the rectum. Active Bisacodyl (MAGIC BULLETS RECTAL) Insert in the rectum. 0 Active Blue-Emu Lidocaine 4% topical PATCH (1 source) Start: 01-26-2024 End: 01-31-2024 Blue-Emu Lidocaine 4% topical PATCH Apply 1 patch(es), Topical, qDay, X 5 day(s), # 5 patch(es), 0 Refill(s), 83.9 Start Date: 01/26/24 Stop Date: 01/31/24 Status: Ordered busPIRone hydrochloride 5 mg oral tablet (16 sources) Start: 10-06-2022 take 1 tablet by mouth twice daily for anxiety busPIRone (BUSPAR) 5 mg tablet take 1 tablet by mouth twice a day for anxiety 10/06/2022 Active Comment on above: take 1 tablet by christine twice a day for anxiety celecoxib 200 mg oral capsule (3 sources) Nonsteroidal Anti-inflammatory Drug Start: 07-03-2019 take 1 capsule by mouth twice daily celecoxib (CELEBREX) 200 MG capsule Take 1 Capsule by mouth 2 times daily. 60 Capsule 2 07/03/2019 Active citalopram 20 mg oral tablet (3 sources) Serotonin Reuptake Inhibitor Start: 06-19-2019 citalopram (CELEXA) 20 MG tablet 06/19/2019 Active clindamycin 150 mg oral capsule (1 source) Lincosamide Antibacterial Start: 09-22-2022 End: 09-29-2022 clindamycin 150 mg oral capsule Dose : 450 mg = 3 cap(s), Oral, q8hr, X 7 day(s), # 63 cap(s), 0 Refill(s), 09/29/22 18:10:00 EDT, Dentalgia, 74 Start Date: 09/22/22 Stop Date: 09/29/22 Status: Ordered clonazePAM 1 mg oral tablet (3 sources) Benzodiazepine take 1 tablet by mouth twice daily as needed for anxiety clonazePAM (KLONOPIN) 1 MG tablet Take 1 mg by mouth 2 times daily as needed for Anxiety. Active cyclobenzaprine hydrochloride 10 mg oral tablet (2 sources) Muscle Relaxant Start: 01-26-2024 End: 01-31-2024 cyclobenzaprine 10 mg oral tablet Dose : 10 mg = 1 tab(s), Oral, TID, X 5 day(s), # 15 tab(s), 0 Refill(s), 01/31/24 3:22:00 PM EDT Start Date: 01/26/24 Stop Date: 01/31/24 Status: Ordered Start: 05-12-2022 End: 05-17-2022 cyclobenzaprine 10 mg oral t ablet Dose : 10 mg = 1 tab(s), Oral, TID, X 5 day(s), # 15 tab(s), 0 Refill(s), 05/17/22 8:12:00 EST Start Date: 05/12/22 Stop Date: 05/17/22 Status: Ordered doxycycline hyclate 100 mg oral tablet (9 sources) Tetracycline-class Drug Start: 03-02-2024 End: 03-09-2024 take 1 tablet by mouth twice daily doxycycline (VIBRA-TABS) 100 mg tablet Take 1 tablet by mouth two times a day for 7 days. 14 tablet 03/02/2024 03/09/2024 Active Start: 10-06-2022 End: 10-17-2022 take 100 mg by mouth twice daily Doxycycline Hyclate Discontinued 100 MG PO TWICE A DAY October 06, 2022 12:00am October 17, 2022 2:40pm Start: 05-27-2022 End: 06-06-2022 take 1 capsule by mouth twice daily doxycycline hyclate (VIBRAMYCIN) 100 mg capsule Indications: Skin infection Take 1 capsule by mouth twice daily for 10 days. 20 capsule 0 05/27/2022 06/06/2022 Active Comment on above: Take 1 capsule by mo uth twice daily for 10 days. escitalopram 10 mg oral tablet (20 sources) Serotonin Reuptake Inhibitor Start: 02-12-2022 escitalopram oxalate (LEXAPRO) 10 mg tablet 05/25/2022 Active Start: 02-12-2022 take 2 tablets by mo uth once daily Escitalopram Oxalate (Lexapro) 10 mg Tablet Active 20 MG PO DAILY February 12, 2022 12:00am famotidine 20 mg oral tablet (20 sources) Histamine-2 Receptor Antagonist Start: 11-11-2022 famotidine (PEPCID) 20 mg tablet 20 mg. 11/11/2022 Active Start: 11-11-2022 take 20 mg by mouth every twelve hours Famotidine Active 20 MG PO Q12H December 11, 2022 12:00am Start: 11-05-2016 End: 05-18-2018 take 20 mg by mouth twice daily Famotidine Discontinue d 20 MG PO TWICE A DAY November 05, 2016 12:00am May 18, 2018 10:50am Comment on above: 20 mg. fluticasone propionate 0.05 mg/actuat metered dose nasal spray (15 sources) Corticosteroid Start: 05-17-2022 fluticasone (FLONASE) 50 mcg/actuation nasal spray 1 [place] once daily. 05/17/2022 Active Start: 03-02-2016 fluticasone (F LONASE) 50 MCG/ACT nasal inhaler 0 03/02/2016 Active Comment on above: 1 Preston once daily. gabapentin 50 mg/ml oral solution (20 sources) Anti-epileptic Agent Start: 01-09-2023 take 300 mg by mouth twice daily Gabapentin Active 300 MG PO TWICE A DAY 360 January 09, 2023 12:00am Start: 09-20-2022 End: 10-20-2022 take 100 mg by mouth twice daily Gabapentin Discontinued 100 MG PO TWICE A DAY 120 September 20, 2022 5:12pm October 20, 2022 12:05am Start: 09-20-2021 End: 10-20-2021 take 100 mg by mouth twice daily Gabapentin Discontinued 100 MG PO TWICE A DAY 120 September 20, 2021 12:00am October 20, 2021 12:04am hydrocortisone 10 mg/ml topical cream (3 sources) Corticosteroid Start: 01-26-2016 RA HYDROCORTIS ONE PLUS 1 % CREA 0 01/26/2016 Active Start: 01-26-2016 RA HYDROCORTIS ONE PLUS 1 % CREA hydrOXYzine pamoate 25 mg oral capsule (20 sources) Antihistamine Start: 02-27-2021 take 1 capsule by mouth twice daily Hydroxyzine Pamoate (Vistaril) 25 mg Capsule Active 25 MG PO TWICE A DAY February 27, 2021 12:00am Start: 10-15-2019 Vistaril Oral, QID, 0 Refill(s) Start Date: 10/15/19 Status: Ordered take 1 capsule by [facility] every eight hours as needed hydrOXYzine pamoate (VISTARIL) 25 mg capsule Take 25 mg by mouth three times a day as needed. Active Comment on above: Take 25 mg by mouth three times daily as needed. Take 25 mg by mouth three times a day as needed. levothyroxine sodium 0.075 mg oral tablet (20 sources) l-Thyroxine Start: take 75 ug by mouth every other day Levothyroxine Active 75 MCG PO EVERY OTHER DAY January 03, 2023 12:00am Start: 01-03-2023 take 88 ug by mouth every other day Levothyroxine Active 88 MCG PO EVERY OTHER DAY January 03, 2023 12:00am Start: 2022 take 75 ug by mouth once daily Levothyroxine Active 75 MCG PO DAILY 2022 3:07pm Start: 2022 take 50 ug by mouth once daily Levothyroxine Active 50 MCG PO DAILY 2022 3:07pm Start: 04-20-2022 levothyroxine 50 mcg (0.05 mg) oral tablet Dose : 50 mcg = 1 tab(s), Oral, qDay, # 30 tab(s), 0 Refill(s), Anxiety Start Date: 04/20/22 Status: Ordered Start: 04-29-2021 levothyroxine 150 mcg (0.15 mg) oral tablet Dose : 150 mcg = 1 tab(s), Oral, qDay, # 30 tab(s), 0 Refill(s) Start Date: 04/29/21 Status: Ordered Start: 01-27-2021 End: 2022 take 137 ug by mouth once daily Levothyroxine Disconti nued 137 MCG PO DAILY January 27, 2021 11:37am 2022 3:13pm Start: 06-19-2019 levothyroxine (SYNTHROID, LEVOTHROID) 137 MCG tablet 06/19/2019 Active Start: 01-08-2019 End: 01-27-2021 take 125 ug by mouth once daily Levothyroxine Disconti nued 125 MCG PO DAILY January 08, 2019 12:00am January 27, 2021 11:49am take 1 tablet by christine th once daily before breakfast levothyroxine (SYNTHROID) 50 mcg tablet Take 50 mcg by mouth daily before breakfast. Active Comment on above: Take 1 tablet by christine th once daily. Take 50 mcg by mouth daily before breakfast. lidocaine 0.05 mg/mg medicated patch (5 sources) Antiarrhythmic, Amide Local Anesthetic Start: apply 1 dose transdermal route every twelve hours lidocaine (LIDODERM) 5 % Indications: Acute right ankle pain Apply 1 Patch as directed every 12 hours. Remove old patch prior to placing new patch. Location: ankle 15 Patch 04/07/2024 Active Start: 06-22-2023 End: 06-29-2023 Lidoderm 5% topical patch Ap ply 1 patch(es), Topical, Daily, X 7 day(s), # 7 patch(es), 0 Refill(s), 83.9 Start Date: 06/22/23 Stop Date: 06/29/23 Status: Ordered Start: 05-12-2022 End: 06-11-2022 Lidoderm 5% topical patch Ap ply 1 patch(es), Transdermal, qDay, X 30 day(s), # 30 patch(es), 0 Refill(s), 75.6 Start Date: 05/12/22 Stop Date: 06/11/22 Status: Ordered linaclotide 0.29 mg oral capsule (20 sources) Guanylate Cyclase-C Agonist Start: 05-24-2022 take 1 capsule by mouth once daily LINZESS 290 mcg capsule Take 290 mcg by mouth once daily. 05/24/2022 Active Start: 08-15-2021 End: 09-14-2021 take 1 capsule by mouth once daily Linaclotide (Linzess) 145 mcg capsule Discontinued 145 MCG PO DAILY August 15, 2021 1:00am September 14, 2021 12:03am Comment on above: Take 290 mcg by mout h once daily. LORazepam 1 mg oral tablet (20 sources) Benzodiazepine Start: take 1 tablet by mouth three times daily Lorazepam (Ativan) 1 mg tablet Active 1 MG PO THREE TIMES A DAY February 03, 2023 12:00am Start: 12-17-2022 End: 01-03-2023 take 1 tablet by mouth three times daily Lorazepam (Ativan) 0.5 mg tablet Discontinued 0.5 MG PO THREE TIMES A DAY 04 01December 17, 2022 12:00am January 03, 2023 2:20am Start: 05-24-2022 End: 08-18-2022 take 1 tablet by mouth every twelve hours as needed LORazepam (ATIVAN) 1 mg tablet Take 1 mg by mouth two times a day as needed. 05/24/2022 Active Start: 04-20-2022 End: 04-27-2022 Ativan 1 mg oral tablet Dose : 1 mg = 1 tab(s), Oral, TID, PRN as needed for anxiety, # 12 tab(s), 0 Refill(s), Anxiety, 68.2 Start Date: 04/20/22 Stop Date: 04/27/22 Status: Ordered Start: 04-06-2022 End: 04-09-2022 LORazepam 1 mg oral tablet D ose : 1 mg = 1 tab(s), Oral, BID, PRN as needed for anxiety, X 3 day(s), # 7 tab(s), 0 Refill(s), 04/09/22 15:59:00 EDT, Hyperthyroidism Anxiety, 70.5 Start Date: 04/06/22 Stop Date: 04/09/22 Status: Ordered Comment on above: Take 1 mg by mouth t wice daily as needed. losartan potassium 25 mg oral tablet (20 sources) Angiotensin 2 Receptor Shaka Start: 01-27-2021 take 1 tablet by mouth once daily Losartan (Cozaar) 25 mg tablet Active 25 MG PO DAILY January 27, 2021 12:00am Start: 10-15-2019 losartan Oral, qDay, 0 Refill(s) Start Date: 10/15/19 Status: Ordered Start: 08-10-2019 End: 01-27-2021 Losartan Discontinued 25 MG PO 1500 August 10, 2019 5:34am January 27, 2021 11:43am Start: 06-06-2019 End: 08-10-2019 take 1 tablet by mouth once daily losartan (COZAAR) 50 mg tablet Take 1 tablet by mouth once daily. 06/09/2019 Active Comment on above: Take 1 tablet by christine th once daily. Magnesium (3 sources) take 400 mg by mouth once daily MAGNESIUM ORAL Take 400 mg by mouth daily. Active take 400 mg by mouth once daily MAGNESIUM ORAL Take 400 mg by mouth daily. 0 Active magnesium citrate 58.2 mg/ml oral solution (19 sources) Start: 03-02-2022 magnesium citr ate solution Take by mouth. 03/02/2022 Active Start: 03-02-2022 take 1 mL by mouth once Magnes ium Citrate Active 300 ML PO ONE TIME 2 March 02, 2022 2:41am Comment on above: Take by mouth. magnesium oxide 400 mg oral capsule (3 sources) Start: 06-05-20 Magnesium Oxide 400 MG CAPS Magnesium Oxide Magnesium Oxide Active 400 MG DAILY June 05, 2019 8:58pm 06-05-2019 [facility] ([id number]) 06/05/2019 Active Melatonin (14 sources) Start: 10-15-19 20 melatonin qHS, 0 Refill(s) Start Date: 10/15/19 Status: Ordered methocarbamol 500 mg oral tablet (1 source) Muscle Relaxant Start: 08-20-19 End: 08-24-19 take 1 tablet by mouth every six hours as needed methocarbamol (ROBAXIN) 500 mg tablet Take 1 tablet by mouth every 6 hours as needed (Pain) for up to 4 days. 15 tablet 0 08/20/2023 08/24/2023 Active Comment on above: Take 1 tablet by christine every 6 hours as needed (Pain) for up to 4 days. naproxen sodium 550 mg oral tablet (18 sources) Nonsteroidal Anti-inflammatory Drug Start: 12-09-19 End: 12-19-19 take 1 tablet by mouth once as needed for pain, then take 1 tablet by mouth twice daily as needed for pain Anaprox-DS 550 mg oral tablet Dose : 550 mg = 1 tab(s), PO, BID, As needed for pain with food, X 10 day(s), # 20 tab(s), 0 Refill(s), 12/19/23 5:30:00 PM EDT Start Date: 12/09/23 Stop Date: 12/19/23 Status: Ordered Start: 01-08-2019 End: 06-06-2019 take 500 mg by mouth twice daily as needed Naproxen Discontinued 500 MG PO TWICE DAILY NEEDED January 08, 2019 12:00am June 06, 2019 12:59pm omeprazole 40 mg delayed release oral capsule (20 sources) Proton Pump Inhibitor Start: 12-29-2023 take 1 capsule by mouth once omeprazole (PRILOSEC) 40 mg capsule Take 1 capsule by mouth every afternoon. 12/29/2023 Active Start: 11-11-2022 take 1 dose by mouth once daily PriLOSEC 10 mg oral powder for reconstitution, delayed release Dose : 10 mg = 1 EA, Oral, qDay, 0 Refill(s) Start Date: 11/11/22 Status: Ordered Start: 11-11-2022 take 1 dose by mouth once daily PriLOSEC 10 mg oral powder for reconstitution, delayed release Dose : 10 mg = 1 EA, Oral, qDay, 0 Refill(s) Start Date: 11/11/22 Status: Ordered Start: 2022 take 10 mg by mouth twice daily Omeprazole Magnesium (Prilosec) 10 mg susp,delayed release for recon Active 10 MG PO TWICE A DAY 2022 1:00am Start: 04-30-2022 Omeprazole Mag nesium 20 mg tablet Take 20 mg by mouth. 04/30/2022 Active Comment on above: Take 20 mg by mouth. ondansetron 4 mg disintegrating oral tablet (20 sources) Serotonin-3 Receptor Antagonist Start: End: take 4 mg by mouth every six hours Ondansetron Active 4 MG PO EVERY 6 HOURS November 03, 2022 12:02pm Start: 08-08-2021 End: 08-18-2021 take 4 mg by mouth every eight hours Ondansetron Discontinued 4 MG PO Q8H 30 August 08, 2021 1:00am August 18, 2021 1:03am Start: 07-06-2020 take 1 tablet by christine th every twelve hours as needed ondansetron orally disintegrating (ZOFRAN ODT) 4 mg disintegrating tablet Take 1 tablet by mouth every 12 hours as needed for Nausea/Vomiting. 4 tablet 07/06/2020 Active Start: 06-20-2020 End: 01-27-2021 take 4 mg by mouth every eight hours as needed Ondansetron Discontinued 4 MG PO EVERY 8 HOURS NEEDED June 20, 2020 1:00am January 27, 2021 11:42am Start: 02-07-2016 ondansetron (Z OFRAN) 4 MG tablet 0 02/07/2016 Active Comment on above: Take 1 tablet by christine th every 12 hours as needed for Nausea/Vomiting. Potassium Chloride (8 sources) Start: 10-15-2019 potassium chloride 0 Refill(s) Start Date: 10/15/19 Status: Ordered raNITIdine (3 sources) Histamine-2 Receptor Antagonist End: 03-02-2024 ranitidine HCl (ZANTAC ORAL) Take by mouth. 03/02/2024 Discontinued ranitidine HCl ( ZANTAC ORAL) Take by mouth. Active ranitidine HCl ( ZANTAC ORAL) Take by mouth. 0 Active Comment on above: Take by mouth. sucralfate 1000 mg oral tablet (10 sources) Aluminum Complex Start: 07-20-2023 take 1 tablet by mouth three times daily sucralfate (CARAFATE) 1 gram tablet Take 1 g by mouth three times a day. 07/20/2023 Active take 1 tablet by mouth four time s daily sucralfate (CARAFATE) 1 GM tablet Take 1 g by mouth 4 times daily. Active Comment on above: Take 1 g by mouth th ree times a day. traZODone hydrochloride 50 mg oral tablet (9 sources) Serotonin Reuptake Inhibitor Start: 07-12-19 take 1 tablet by mouth once daily at bedtime traZODone (DESYREL) 50 mg tablet Take 50 mg by mouth daily at bedtime. 07/12/2023 Active Comment on above: Take 50 mg by mouth daily at bedtime. valACYclovir 500 mg oral tablet (9 sources) Herpesvirus Nucleoside Analog DNA Polymerase Inhibitor, Herpes Simplex Virus Nucleoside Analog DNA Polymerase Inhibitor, Herpes Zoster Virus Nucleoside Analog DNA Polymerase Inhibitor Start: 07-01-19 take 1 tablet by mouth twice daily valACYclovir (VALTREX) 500 mg tablet TAKE 1 TABLET BY MOUTH 2 TIMES A DAY for 3 days for outbreak 07/01/2023 Active Comment on above: TAKE 1 TABLET BY CHRISTINE TH 2 TIMES A DAY for 3 days for outbreak Completed/Discontinued Medications Medication Drug Class(es) Dates Sig (Normalized) Sig (Original) acetaminophen 325 mg / HYDROcodone bitartrate 5 mg oral tablet (20 sources) Opioid Agonist Start: 10-04-2019 End: 10-07-2019 take 1 tablet by mouth every six hours as needed Hydrocodone-Acetami nophen Discontinued 1 TABLET PO EVERY 6 HOURS NEEDED 10 October 04, 2019 October 07, 2019 12:02am Start: 08-10-2019 End: 08-13-2019 take 1 tablet by mouth every six hours as needed Hydrocodone-Acetaminophen Discontinued 1 TABLET PO EVERY 6 HOURS NEEDED 10 August 10, 2019 August 13, 2019 1:08am Start: 05-18-2018 End: 05-21-2018 take 1 tablet by mouth every six hours as needed Hydrocodone-Acetaminophen Discontinued 1 TABLET PO EVERY 6 HOURS NEEDED 12 May 18, 2018 1:00am May 21, 2018 1:08am cephalexin 500 mg oral tablet (17 sources) Cephalosporin Antibacterial Start: 08-04-2021 End: 09-01-2021 take 500 mg by mouth twice daily Cephalexin Discontinued 500 MG PO TWICE A DAY 28 August 04, 2021 1:00am September 01, 2021 3:40pm diazePAM 5 mg oral tablet (20 sources) Benzodiazepine Start: 08-04-2021 End: 08-31-2021 take 1 tablet by mouth twice daily Diazepam (Valium) 5 mg tablet Discontinued 5 MG PO TWICE A DAY 14 August 24, 2021 1:00am August 31, 2021 12:03am Start: 07-27-2021 End: 08-01-2021 take 1 tablet by mouth at bedtime Diazepam (Valium) 5 mg tablet Discontinued 5 MG PO AT BEDTIME 5 5 July 27, 2021 1:00am August 01, 2021 1:03am estradiol 1 mg oral tablet (20 sources) Estrogen Start: 10-27-2019 End: 09-13-2021 take 1 mg by mouth once daily Estradiol Discontinued 1 MG PO DAILY October 27, 2019 12:00am September 13, 2021 3:00pm Comment on above: Take 1 mg by mouth o nce daily. levoFLOXacin 500 mg oral tablet (17 sources) Quinolone Antimicrobial Start: 09-06-2021 End: 09-27-2021 take 500 mg by mouth once daily Levofloxacin Discontinued 500 MG PO DAILY September 06, 2021 12:00am September 27, 2021 12:04am nabumetone 500 mg oral tablet (4 sources) Nonsteroidal Anti-inflammatory Drug Start: 05-12-2022 End: 05-26-2022 nabumetone 500 mg oral tablet Dose : 1,000 mg = 2 tab(s), Oral, BID, # 56 tab(s), 0 Refill(s) Start Date: 05/12/22 Stop Date: 05/26/22 Status: Ordered oxyCODONE hydrochloride 5 mg oral tablet (17 sources) Opioid Agonist Start: 10-27-2019 End: 11-03-2019 take 5 mg by mouth every six hours as needed Oxycodone Discontinued 5 MG PO EVERY 6 HOURS NEEDED 04 01October 27, 2019 November 03, 2019 12:02am pantoprazole 40 mg delayed release oral tablet (20 sources) Proton Pump Inhibitor Start: 05-23-2020 End: 01-27-2021 take 40 mg by mouth once daily Pantoprazole Discontinued 40 MG PO DAILY May 23, 2020 1:00am January 27, 2021 11:43am polyethylene glycol [id number] mg powder for oral solution (1 source) Osmotic Laxative Start: 01-26-2024 End: 01-27-2024 MiraLax oral powder for reconstitution see instructions, Oral, Mix in 32 ounce bottle of Gatorade. Shake and chill in refrigerator for 1 hour. Drink one 8 ounce glass of Miralax mix every hour, til gone, X 1 day(s), # 238 gram(s), 0 Refill(s), 01/27/24 3:22:00 PM EDT Start Date: 01/26/24 Stop Date: 01/27/24 Status: Ordered promethazine hydrochloride 25 mg oral tablet (20 sources) Phenothiazine Start: 08-04-2021 End: 10-20-2021 take 25 mg by mouth three times daily Promethazine Discontinued 25 MG PO THREE TIMES A DAY 30 August 04, 2021 1:00am October 20, 2021 3:39pm Start: 06-20-2020 End: 01-27-2021 take 25 mg by mouth every six hours as needed Promethazine Discontinued 25 MG PO EVERY 6 HOURS NEEDED June 20, 2020 1:00am January 27, 2021 11:42am tiZANidine 4 mg oral tablet (1 source) Central alpha-2 Adrenergic Agonist Start: 08-20-2023 End: 08-20-2023 take 1 tablet by mouth every eight hours as needed tiZANidine (ZANAFLEX) 4 mg tablet Take 1 tablet by mouth every 8 hours as needed (muscle spasms). 15 tablet 0 08/20/2023 08/20/2023 Discontinued Comment on above: Take 1 tablet by christine every 8 hours as needed (muscle spasms). traMADol hydrochloride 50 mg oral tablet (17 sources) Opioid Agonist Start: 09-04-2021 End: 09-11-2021 take 1 tablet by mouth twice daily Tramadol Discontinued 50 MG PO TWICE A DAY 14 September 04, 2021 12:00am September 11, 2021 12:04am 14 tabs (fourteen) zolpidem tartrate 10 mg oral tablet (20 sources) gamma-Aminobutyri c Acid-ergic Agonist Start: 12-11-2022 zolpidem 10 mg oral tablet Dose : 10 mg = 1 tab(s), Oral, qHS, 0 Refill(s), 73 Start Date: 12/11/22 Status: Ordered Start: 07-21-2021 take 1 tablet by mouth at bedt jeannie Zolpidem (Ambien) 5 mg Tablet Active 5 MG PO AT BEDTIME July 21, 2021 1:00am Comment on above: Take 5 mg by mouth a t bedtime as needed. Problems Active Problems Problem Classification Problem Date Documented Da te Episodic/Chronic Abdominal pain (20 sources) Pain in pelvis; Translations: [Pelvic and perineal pain] Onset: 2 Episodic Allergic reactions (20 sources) Inflammatory dermatosis; Translations: [Dermatitis, unspecified] 09-04-2020 Episodic Anxiety disorders (20 sources) Anxiety; Translations: [Anxiety disorder, unspecified] Onset: 0 Chronic Bacterial infection; unspecified site (20 sources) Infection due to resistant bacteria; Translations: [Other bacterial infections of unspecified site] 10-06-2022 Episodic Blindness and vision defects (17 sources) Disorder of vision; Translations: [Unspecified visual loss] 01-27-2021 Chronic Cardiac dysrhythmias (15 sources) Palpitations; Translations: [Palpitations] Onset: 2 Episodic Complications of surgical procedures or medical care (20 sources) Delayed healing of surgical wound; Translations: [Other complications of procedures, not elsewhere classified, initial encounter] Episodic Conditions associated with dizziness or vertigo (6 sources) Dizziness; Translations: [Dizziness and giddiness] 10-27-2022 Episodic Coronary atherosclerosis and other heart disease (17 sources) Atypical angina; Translations: [Other forms of angina pectoris] 05-27-2020 Chronic Disorders of teeth and jaw (1 source) Disorder of teeth AND/OR supporting structures; Translations: [Other specified disorders of teeth and supporting structures] Onset: 3 Episodic E Codes: Fall (17 sources) Accidental fall ; Translations: [Fall (on) (from) other stairs and steps, initial encounter] 03-07-2021 Episodic Esophageal disorders (20 sources) Gastroesophageal reflux disease; Translations: [Gastro-esophageal reflux disease without esophagitis] Onset: 5 04-05-2015 Chronic Essential hypertension (20 sources) Hypertensive disorder; Translations: [Essential (primary) hypertension] Onset: 0 07-03-2019 Chronic Headache; including migraine (14 sources) Migraine 09-30-2013 Chronic Headache; including migraine (18 sources) Generalized headache; Translations: [Generalized headache] Onset: 3 01-27-2021 Episodic Inflammation; infection of eye (except that caused by tuberculosis or sexually transmitteddisease) (17 sources) Conjunctivitis; Translations: [Unspecified conjunctivitis] 03-01-2020 Episodic Malaise and fatigue (17 sources) Asthenia; Translations: [Weakness] 09-05-2019 Episodic Mood disorders (3 sources) Depressive disorder; Translations: [Depression] Onset: 0 07-03-2019 Chronic Nausea and vomiting (17 sources) Vomiting; Translations: [Vomiting, unspecified] 06-21-2020 Episodic Nonmalignant breast conditions (20 sources) Large breast; Translations: [Hypertrophy of breast] Episodic Nonspecific chest pain (14 sources) Chest pain; Translations: [Chest pain, unspecified] 02-20-2022 Episodic Other connective tissue disease (18 sources) Spasm; Translations: [Other muscle spasm] Onset: 4 08-24-2021 Episodic Other connective tissue disease (19 sources) Other muscle spasm; Translations: [Spasm of muscle] Episodic Other connective tissue disease (16 sources) Neuralgia; Translations: [Neuralgia and neuritis, unspecified] 09-22-2021 Episodic Other connective tissue disease (13 sources) Neuralgia and neuritis, unspecified; Translations: [Neuralgia, neuritis, and radiculitis, unspecified] Episodic Other connective tissue disease (1 source) Pain in left foot; Translations: [Pain in left foot] Onset: 5 Episodic Other endocrine disorders (17 sources) Decreased estradiol level; Translations: [Other specified endocrine disorders] 01-27-2021 Episodic Other female genital disorders (17 sources) Abnormal uterine bleeding; Translations: [Other specified abnormal uterine and vaginal bleeding] 08-01-2019 Chronic Other female genital disorders (12 sources) Deep pain on intercourse; Translations: [Deep dyspareunia] Onset: 7 05-09-2017 Chronic Other gastrointestinal disorders (17 sources) Acute diarrhea; Translations: [Diarrhea, unspecified] 01-12-2019 Episodic Other gastrointestinal disorders (20 sources) Constipation; Translations: [Constipation, unspecified] 08-17-2021 Episodic Other gastrointestinal disorders (7 sources) Constipation, unspecified; Translations: [Constipation, unspecified] Onset: Episodic Other gastrointestinal disorders (14 sources) Heartburn 10-26-2014 Episodic Other hereditary and degenerative nervous system conditions (7 sources) Coarse tremor; Translations: [Other specified forms of tremor] 12-17-2022 Chronic Other infections; including parasitic (10 sources) H/O: infectious disease; Translations: [Personal history of other infectious and parasitic diseases] 06-25-2022 Episodic Other infections; including parasitic (4 sources) Personal history of other infectious and parasitic diseases; Translations: [Personal history of other infectious and parasitic diseases] 2022 Episodic Other inflammatory condition of skin (17 sources) Intertrigo; Translations: [Erythema intertrigo] 03-26-2021 Episodic Other inflammatory condition of skin (20 sources) Erythema intertrigo; Translations: [Other specified erythematous conditions] Episodic Other injuries and conditions due to external causes (17 sources) Abrasion; Translations: [Other injury of unspecified body region, initial encounter] 09-04-2020 Episodic Other injuries and conditions due to external causes (2 sources) Injury of finger of left hand; Translations: [Unspecified injury of left wrist, hand and finger(s), initial encounter] 07-31-2023 Episodic Other lower respiratory disease (17 sources) Pleuritic pain; Translations: [Pleurodynia] 08-04-2015 Episodic Other lower respiratory disease (1 source) Respiratory tract infection; Translations: [Other specified respiratory disorders] 03-02-2024 Episodic Other nervous system disorders (12 sources) Ilioinguinal nerve neuralgia; 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] Onset: 7 05-09-2017 Chronic Other nervous system disorders (17 sources) Paresthesia; Translations: [Paresthesia of skin] 05-05-2019 Episodic Other nervous system disorders (20 sources) Acute postoperative pain; Translations: [Other acute postprocedural pain] 08-04-2021 Episodic Other nervous system disorders (20 sources) Other acute postprocedural pain; Translations: [Other acute postoperative pain] Episodic Other nervous system disorders (14 sources) H/O: vertigo 06-08-2014 Episodic Other nervous system disorders (2 sources) Tremor; Translations: [Tremor, unspecified] Onset: Episodic Other non-traumatic joint disorders (17 sources) Shoulder pain; Translations: [Pain in unspecified shoulder] 03-26-2021 Episodic Other non-traumatic joint disorders (20 sources) Pain in unspecified shoulder; Translations: [Pain in joint, shoulder region] Episodic Other non-traumatic joint disorders (1 source) Acute ankle pain; Translations: [Pain in right ankle and joints of right foot] 04-07-2024 Episodic Other nutritional; endocrine; and metabolic disorders (12 sources) Body mass index 30+ - obesity; Translations: [Obesity, unspecified] Onset: 6 10-28-2015 Chronic Other nutritional; endocrine; and metabolic disorders (17 sources) Recent weight loss; Translations: [Abnormal weight loss] 07-28-2021 Episodic Other nutritional; endocrine; and metabolic disorders (20 sources) Abnormal weight loss; Translations: [Loss of weight] Episodic Other nutritional; endocrine; and metabolic disorders (7 sources) H/O: hypothyroidism; Translations: [Personal history of other endocrine, nutritional and metabolic disease] 12-17-2022 Episodic Other screening for suspected conditions (not mental disorders or infectious disease) (5 sources) Raised TSH level; Translations: [Other specified abnormal findings of blood chemistry] 12-11-2022 Episodic Other upper respiratory disease (12 sources) Seasonal allergy; Translations: [Other seasonal allergic rhinitis] Onset: 5 04-05-2015 Chronic Other upper respiratory disease (3 sources) Seasonal allergic rhinitis; Translations: [Other seasonal allergic rhinitis] Onset: 5 03-23-2016 Chronic Other upper respiratory infections (1 source) Chronic sinusitis, unspecified; Translations: [Unspecified sinusitis (chronic)] 09-02-2024 Chronic Other upper respiratory infections (19 sources) Streptococcal sore throat; Translations: [Streptococcal pharyngitis] 04-16-2019 Episodic Residual codes; unclassified (20 sources) Other specified postprocedural states; Translations: [Other postprocedural status] Episodic Screening and history of mental health and substance abuse codes (20 sources) Ex-smoker; Translations: [Personal history of nicotine dependence] Episodic Skin and subcutaneous tissue infections (1 source) Infection of skin; Translations: [Local infection of the skin and subcutaneous tissue, unspecified] Episodic Spondylosis; intervertebral disc disorders; other back problems (20 sources) Chronic thoracic back pain; Translations: [Pain in thoracic spine] Episodic Superficial injury; contusion (18 sources) Contusion of left chest wall; Translations: [Contusion of left front wall of thorax, initial encounter] Onset: 5 03-07-2021 Episodic Thyroid disorders (19 sources) Hypothyroidism; Translations: [Hypothyroidism, unspecified] Onset: 2 Chronic Unclassified (1 source) Low back pain, unspecified; Translations: [Low back pain, unspecified] Onset: 5 Urinary tract infections (20 sources) Urinary tract infectious disease; Translations: [Urinary tract infection, site not specified] 09-30-2013 Episodic Past or Other Problems Problem Classification Problem Date Documented Da te Episodic/Chronic Other connective tissue disease (12 sources) Myalgia, unspecified site; Translations: [Myalgia and myositis, unspecified] Onset: 05-09-2017 05-09-2017 Episodic Other female genital disorders (12 sources) Pelvic floor dysfunction; Translations: [Other specified conditions associated with female genital organs and menstrual cycle] Onset: 05-09-2017 05-09-2017 Episodic Other non-traumatic joint disorders (1 source) Pain in right hip; Translations: [Pain in right hip] Onset: 07-09-2024 Episodic Other non-traumatic joint disorders (1 source) Pain in unspecified joint; Translations: [Pain in unspecified joint] Onset: 02-25-2024 Episodic Ovarian cyst (3 sources) Cyst of left ovary; Translations: [Unspecified ovarian cyst, left side] Onset: 08-03-2016 08-03-2016 Episodic Results Test Name Value Interpretation Reference Range Facility Urgent Care Visit Reporton 0 10-06-2024 Urgent Care Visit Report [facility] [address] , [address] [place] [address] OFFICE VISIT Date of Service: 10/06/24 MR#: [id number] Acct: [id number] Name: HELEN ROLAND Rep #: [id number] : 1970 Provider: LEVI Meneses Age/Sex: 54/F Location: [facility] [place] Status: Signed Intake Vital Signs 10/01/24 09:51 10/06/24 14:51 Height 5 ft 8 in Weight: 161 lb BMI 24.5 BP 124/80 H 112/76 Blood Pressure Location Lt brachial Position Sitting Sitting Respiration 14 Pulse 77 81 Pulse Source NIBP Temp 97.9 F 98.0 F Temp Source Oral Oral Pulse Oximetry (%) 97 98 Oxygen Delivery Method room air room air Intake Visit Reasons: 1 W FU/[facility] Chief Complaint: WC f/u left foot Clerical Receptionist Required: No Allergies azithromycin (From Zithromax Z-Keo) Allergy (Verified 10/06/24 14:52) Diarrhea sumatriptan (From Imitrex) Allergy (Verified 10/06/24 14:52) TUNNEL VISION sumatriptan succinate (From Imitrex) Allergy (Verified 10/06/24 14:52) TUNNEL VISION tramadol Adverse Reaction (Verified 10/06/24 14:52) nausea and vomiting Is last menstrual period known: No Post menopausal: No Patient : No Have you fallen in the past year?: No PFSH Medical History (Updated 10/01/24 @ 09:56 by Samir SIMS, LEVI) Contusion of left foot Panic Gastric reflux ELLY (generalized anxiety disorder) Other acute postprocedural pain Methicillin resistant Staphylococcus epidermidis infection Thyroid disease History of staph infection Fat necrosis of breast Mass of right breast Mass of left breast Breast pain, left Wears glasses Wears partial dentures Anxiety History of steroid therapy Migraine headache Dietary restriction Difficulty swallowing History of ulceration Former smoker History of echocardiogram History of stress test Intertrigo Chronic thoracic back pain Shoulder pain Chronic neck pain Macromastia Vision problem Hormone deficiency Generalized headaches Carpal tunnel syndrome Back problem Allergies Anginal equivalent Anxiety GERD (gastroesophageal reflux disease) Hypertension Hypothyroidism Surgical History History of breast lump/mass excision History of bilateral breast reduction surgery History of esophagogastroduodenoscopy (EGD) History of carpal tunnel release S/P hysterectomy S/P laparoscopic cholecystectomy S/P left knee surgery S/P tubal ligation S/P wisdom tooth extraction S/P correction of deviated nasal septum Family History Other Anxiety Depression Epilepsy Hormone deficiency Hypertension Seizures Social History household members: significant other Smoking Status: Former smoker alcohol intake: never substance use type: does not use additional social history: Does Not Take Aspirin Does Not Take Ibuprofen HPI HPI Chief Complaint: WC f/u left foot Details: HELEN ROLAND, is a 54 F who presents to the office today for f/u L dorsal foot pain after dropping window air conditioning unit onto the same at work on 10/01/2024, pt states. She noted immediate [id number] aching discomfort in the same no longer aggravated to touch or with weightbearing, alleviated with sit/ rest/ time. No [id number] products taken to assist. No complaints of pain to digits x 5 of the same or left ankle. PMH NC. No other associated symptoms and no other alleviating/aggravating factors. ROS Const Constitutional: No other (As above) Exam Const General: cooperative, healthy appearing and no acute distress Nutritional Appearance: average body habitus Orientation: alert and awake Resp Effort Inspection: normal respiratory effort and able to speak in complete sentences Cardio Rate: regular rate Pulses: radial pulses present Skin General: no rashes or lesions noted Neuro General: patient alert and patient awake Cognition: normal cognition Speech: speech normal Extrem General: normal to inspection, full ROM, capillary refill normal and normal exam except as noted (w/o ipkul-nq-axlymg point tender to palpation left dorsal medial foot over first MTP) Psych Appearance: grossly normal Mental Status: mental status grossly normal Mood: congruent mood Affect: normal affect Speech and Movement: speech and movement normal Attitude: cooperative Diagnoses Contusion of left foot S90.32XA Assessment and Plan Assessment and Plan (1) Contusion of left foot: Status: Acute Plan: Released without restrictions as noted on today's [employer] 14. Follow-up with the [facility] on an as-needed basis only. Patient states acknowledging understanding all the above. This note was generated with [employer] (more content not included)... Normal [facility] Foot min 3 Viewson 5 Foot min 3 Views [facility] [address] [place] [address] Foot min 3 Views MR#: [id number] Acct: [id number] Name: HELEN ROLAND Rep #: [id number] : 1970 F 54 From: Ivan thomas MD PCP: Dr. Milka Schneider MD Status: REG CLI Study: Foot min 3 Views Date of Exam: 10/01/24 Exam# [id number] Ordering Dr: Samir Carranza PA EXAM: Left foot CLINICAL HISTORY: Air conditioner fell on the foot. COMPARISON: None TECHNIQUE: Three views of the left foot were obtained. FINDINGS: No fracture is seen. Mild degree of joint space narrowing at the 1st metatarsophalangeal joint. Soft tissue swelling. RAD/Foot min 3 Views IMPRESSION: No fracture seen. Mild degenerative changes at the 1st metatarsophalangeal joint. Soft tissue swelling. Reading Location: [place] [address] CC: Dr. Milka Schneider MD; LEVI Meneses [employer] Energy Advisor: Signed Normal [facility] Urgent Care Visit Reporton 0 10-01-2024 Urgent Care Visit Report [facility] [address], [address] [place] [address] OFFICE VISIT Date of Service: 10/01/24 MR#: [id number] Acct: [id number] Name: HELEN ROLAND Rep #: [id number] : 1970 Provider: LEVI Meneses Age/Sex: 54/F Location: [facility] – [place] Status: Signed Intake Vital Signs 09/16/24 14:25 10/01/24 09:51 Height 5 ft 8 in 5 ft 8 in Weight: 160 lb 161 lb BMI 24.3 24.5 BP 95/67 124/80 H Blood Pressure Location Lt brachial Position Sitting Sitting Respiration 16 Pulse 105 H 77 Pulse Source Monitor Temp 97.9 F Temp Source Oral Pulse Oximetry (%) 97 Oxygen Delivery Method room air Intake Visit Reasons: L FOOT INJURY/CRUSH INJURY/[facility] Accompanied by: Self Is patient in pain?: Yes Pain scale (1-10): 8 Allergies azithromycin (From Zithromax Z-Keo) Allergy (Verified 10/01/24 09:36) Diarrhea sumatriptan (From Imitrex) Allergy (Verified 10/01/24 09:36) TUNNEL VISION sumatriptan succinate (From Imitrex) Allergy (Verified 10/01/24 09:36) TUNNEL VISION tramadol Adverse Reaction (Verified 10/01/24 09:36) nausea and vomiting Medications ???Medication ???Instructions ???Recorded ???Confirmed ???Type losartan 25 mg tablet (Cozaar) 25 mg PO DAILY 01/27/21 10/01/24 H istory levothyroxine 100 mcg tablet 100 mcg PO DAILY 07/20/23 10/01/24 History naproxen 500 mg tablet 500 mg PO BID 10/15/23 10/01/24 Hi story trazodone 100 mg tablet 100 mg PO QHS 10/15/23 10/01/24 Hi story lorazepam 1 mg tablet 1 mg PO DAILY PRN anxiety #30 tabs 08/25/24 10/01/24 Rx duloxetine 60 mg capsule,delayed 60 mg PO DAILY #90 caps 09/16/24 0 10/01/24 Rx release Nurse's Note: Patient here for [facility]. Patient hurt her left foot this AM.Patient states its the top of her foot that is bothering her the most. [facility] Medical History (Updated 10/01/24 @ 09:56 by Samir SIMS, PA) Contusion of left foot Panic Gastric reflux ELLY (generalized anxiety disorder) Other acute postprocedural pain Methicillin resistant Staphylococcus epidermidis infection Thyroid disease History of staph infection Fat necrosis of breast Mass of right breast Mass of left breast Breast pain, left Wears glasses Wears partial dentures Anxiety History of steroid therapy Migraine headache Dietary restriction Difficulty swallowing History of ulceration Former smoker History of echocardiogram History of stress test Intertrigo Chronic thoracic back pain Shoulder pain Chronic neck pain Macromastia Vision problem Hormone deficiency Generalized headaches Carpal tunnel syndrome Back problem Allergies Anginal equivalent Anxiety GERD (gastroesophageal reflux disease) Hypertension Hypothyroidism Surgical History History of breast lump/mass excision History of bilateral breast reduction surgery History of esophagogastroduodenoscopy (EGD) History of carpal tunnel release S/P hysterectomy S/P laparoscopic cholecystectomy S/P left knee surgery S/P tubal ligation S/P wisdom tooth extraction S/P correction of deviated nasal septum Family History Other Anxiety Depression Epilepsy Hormone deficiency Hypertension Seizures Social History household members: significant other Smoking Status: Former smoker alcohol intake: never substance use type: does not use additional social history: Does Not Take Aspirin Does Not Take Ibuprofen HPI HPI Details: HELEN ROLAND, is a 54 F who presents to the office today for L dorsal foot pain after dropping window air conditioning unit onto the same at work immediately prior to arrival here today, pt states. She noted immediate 8/10 moderate severe aching discomfort in the same aggravated touch with weightbearing, alleviated with sit/rest. No otbz-fpt-cxxinle products taken to assist. No complaints of pain to digits x 5 of the same or left ankle. PMH NC. No other associated symptoms and no other alleviating/aggravating factors. ROS Const Constitutional: No other (As above) Exam Const General: cooperative, healthy appearing and no acute distress Nutritional Appearance: average body habitus Orientation: alert and awake Resp Effort Inspection: normal respiratory effort and able to speak in complete sentences Cardio Rate: regular rate Pulses: radial pulses present Skin General: no rashes or lesions noted Neuro General: patient alert and patient awake Cognition: normal cognition Speech: speech normal Extrem General: normal to inspection, full ROM, capillary refill normal and normal exam except as noted (Point tender to palpation left dorsal medial foot over first MTP) (more content not included)... [facility] MR/BMS.BPon 09-16-2024 MR/BMS.BP [address], [address] [place] [address] OFFICE VISIT Date of Service: 09/16/24 MR#: [id number] Acct: [id number] Name: HELEN ROLAND Rep #: [id number] : 1970 Provider: Dr. Samir Abraham se, DO Age/Sex: 54/F Location: BMS.BP Status: Signed Intake Vital Signs 11/19/24 13:25 09/16/24 14:25 Height 5 ft 8 in 5 ft 8 in Weight: 160 lb BMI 24.3 BP 95/67 Blood Pressure Location Lt brachial Position Sitting Respiration 16 Pulse 105 H Pulse Source Monitor BP Intake Visit Reasons: 4 M FU Accompanied by: Self Allergies azithromycin (From Zithromax Z-Keo) Allergy (Verified 05/06/24 13:33) Diarrhea sumatriptan (From Imitrex) Allergy (Verified 05/06/24 13:33) TUNNEL VISION sumatriptan succinate (From Imitrex) Allergy (Verified 05/06/24 13:33) TUNNEL VISION tramadol Adverse Reaction (Verified 05/06/24 13:33) nausea and vomiting Medications ???Medication ???Instructions ???Recorded ???Confirmed ???Type losartan 25 mg tablet (Cozaar) 25 mg PO DAILY 01/27/21 09/16/24 H istory hydroxyzine pamoate 50 mg capsule 50 mg PO DAILY PRN anxiety 09/16/24 History (Vistaril) ondansetron 4 mg disintegrating 4 mg PO Q8H PRN PRN Nausea #10 tab s 05/02/23 09/16/24 Rx tablet levothyroxine 100 mcg tablet 100 mcg PO DAILY 07/20/23 09/16/24 History valacyclovir 500 mg tablet 500 mg PO Q12H PRN cold sores 08/1109/16/24 History fluticasone propionate 50 1 spray intranasal DAILY PRN 10/1409/16/24 History mcg/actuation nasal allergy symptoms spray,suspension naproxen 500 mg tablet 500 mg PO BID 10/15/23 09/16/24 Hi story trazodone 100 mg tablet 100 mg PO QHS 10/15/23 09/16/24 Hi story omeprazole 40 mg capsule,delayed 40 mg PO DAILY #60 caps 10/30/23 0 09/16/24 Rx release ferrous sulfate 134 mg (27 mg 134 mg PO .twice weekly 05/06/24 0 09/16/24 History iron) tablet lorazepam 1 mg tablet 1 mg PO DAILY PRN anxiety #30 tabs 08/25/24 09/16/24 Rx duloxetine 60 mg capsule,delayed 60 mg PO DAILY #90 caps 09/16/24 0 09/16/24 Rx release PFSH Medical History (Updated 05/07/24 @ 06:[address] Samir Couch, DO) Panic Gastric reflux ELLY (generalized anxiety disorder) Other acute postprocedural pain Methicillin resistant Staphylococcus epidermidis infection Thyroid disease History of staph infection Fat necrosis of breast Mass of right breast Mass of left breast Breast pain, left Wears glasses Wears partial dentures Anxiety History of steroid therapy Migraine headache Dietary restriction Difficulty swallowing History of ulceration Former smoker History of echocardiogram History of stress test Intertrigo Chronic thoracic back pain Shoulder pain Chronic neck pain Macromastia Vision problem Hormone deficiency Generalized headaches Carpal tunnel syndrome Back problem Allergies Anginal equivalent Anxiety GERD (gastroesophageal reflux disease) Hypertension Hypothyroidism Surgical History History of breast lump/mass excision History of bilateral breast reduction surgery History of esophagogastroduodenoscopy (EGD) History of carpal tunnel release S/P hysterectomy S/P laparoscopic cholecystectomy S/P left knee surgery S/P tubal ligation S/P wisdom tooth extraction S/P correction of deviated nasal septum Family History Other Anxiety Depression Epilepsy Hormone deficiency Hypertension Seizures Social History household members: significant other Smoking Status: Former smoker alcohol intake: never substance use type: does not use additional social history: Does Not Take Aspirin Does Not Take Ibuprofen HPI History of Present Illness History provided by: patient HPI: Helen Roland is a 54 year old female who presents today for follow up evaluation. Patient reports that she has been alright. Continues to work at [employer], and does feel like she is tolerating well. Feels like medications are working largely well. Does have some mild headaches which she states start in the back of her head and wrap around. Does take naproxen intermittently for this. Does take her medication adherently. Sleep has been doing largely well with the use of trazodone. Does find that quality is largely good. Not doing any counseling but feels like she is doing well in that regard. Did lose her NERI animal at the end of August which adds to stress. Abruptly got sick and . Does become very tearful when discussing this. Denies SI/HI or AVH. Review of Systems Constitutional Denies: fever(s), chills, change in weight or fatigue Eyes Reports: other (Light sensitivity); (more content not included)... 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 Patient presents with: Ear Pain: Left ear pain, cough, sinus and congestion x 1 week Patient came in with complaints of sinus pressure and congestion for a week. Patient says her left ear started hurting a few days ago. Patient denies any shortness of breath or sore throat. Patient denies any other symptoms. The history is provided by the patient. No interpreter was used. Ear Pain Review of Systems Constitutional: Negative. HENT: Positive for sinus pressure. Objective BP 136/82 Pulse 71 Temp 36.5 ?C (97.7 ?F) (Tympanic) Resp 16 Wt 74.5 kg (164 lb 3.9 oz) LMP 06/18/2019 SpO2 97% BMI 24.97 kg/m? Physical Exam Constitutional: Appearance: Normal appearance. HENT: Right Ear: Tympanic membrane, ear canal and external ear normal. Left Ear: Ear canal and external ear normal. Tympanic membrane is erythematous and bulging. Mouth/Throat: Mouth: Mucous membranes are moist. Eyes: Pupils: Pupils are equal, round, and reactive to light. Cardiovascular: Rate and Rhythm: Normal rate and regular rhythm. Heart sounds: Normal heart sounds. Pulmonary: Effort: Pulmonary effort is normal. Breath sounds: Normal breath sounds. Neurological: Mental Status: She is alert. PAST MEDICAL HISTORY Diagnosis Date Anxiety GERD [...] ALLERGIES Azithromycin, Dust, and Imitrex [Sumatriptan] MEDICATIONS amoxicillin-clavulanate potassium (AUGMENTIN) 875-125 mg per tablet Take 1 tablet by mouth two times a day for 7 days. lidocaine (LIDODERM) 5 % Apply 1 Patch as directed every 12 hours. Remove old patch prior to placing new patch. Location: ankle omeprazole (PRILOSEC) 40 mg capsule Take 1 capsule by mouth every afternoon. sucralfate (CARAFATE) 1 gram tablet Take 1 g by mouth three times a day. (Patient not taking: Reported on 04/07/2024) traZODone (DESYREL) 50 mg tablet Take 50 mg by mouth daily at bedtime. valACYclovir (VALTREX) 500 mg tablet TAKE 1 TABLET BY MOUTH 2 TIMES A DAY for 3 days for outbreak famotidine (PEPCID) 20 mg tablet 20 mg. (Patient not taking: Reported on 08/20/2023) oxyCODONE-acetaminophen (PERCOCET) 5-325 mg tablet take 1 tablet by mouth twice a day if needed for pain SCORE OF 7-10 FOR 7 DAYS (Patient not taking: Reported on 12/03/2022) busPIRone (BUSPAR) 5 mg tablet take 1 tablet by mouth twice a day for anxiety (Patient not taking: Reported on 03/02/2024) magnesium citrate solution Take by mouth. levothyroxine (SYNTHROID) 50 mcg tablet Take 50 mcg by mouth daily before breakfast. escitalopram oxalate (LEXAPRO) 10 mg tablet (Patient not taking: Reported on 03/02/2024) fluticasone (FLONASE) 50 mcg/actuation nasal spray 1 [place] once daily. LORazepam (ATIVAN) 1 mg tablet Take 1 mg by mouth two times a day as needed. LINZESS 290 mcg capsule Take 290 mcg by mouth once daily. (Patient not taking: Reported on 03/02/2024) Omeprazole Magnesium 20 mg tablet Take 20 mg by mouth. (Patient not taking: Reported on 12/03/2022) levothyroxine (SYNTHROID) 137 mcg tablet Take 1 tablet by mouth once daily. (Patient not taking: Reported on 05/27/2022) hydrOXYzine pamoate (VISTARIL) 25 mg capsule Take 25 mg by mouth three times a day as needed. zolpidem (AMBIEN) 5 mg tablet Take 5 mg by mouth at bedtime as needed. (Patient not taking: Reported on 07/31/2023) ondansetron orally disintegrating (ZOFRAN ODT) 4 mg disintegrating tablet Take 1 tablet by mouth every 12 hours as needed for Nausea/Vomiting. (Patient not taking: Reported on 05/27/2022) estradiol (ESTRACE) 1 mg tablet Take 1 mg by mouth once daily. (Patient not taking: Reported on 05/27/2022) losartan (COZAAR) 50 mg tablet Take 1 tablet by mouth once daily. FAMILY HISTORY Problem Relation Age of Onset Psychiatry Mother Seizures Mother Cancer Father prostate Social History (more content not included)... Normal [facility] Free T3on 08-18-2024 Free T3 [Mass/Vol] 2.4 pg/mL Normal 2.18-3.98 [facility] Comment on above: Order Comment: Y Performed By: #### L 501.9520, L506.0400, L500.4100, L501.39505 ####[facility] [address] [place], [place], [id number] Lipid Profileon 08-18-2024 CHOL:HDL 0.53 Normal [facility] Comment on above: Performed By: #### L 501.9520, L506.0400, L500.4100, L501.26379 ####[facility] [address] [place], [address] Cholesterol [Mass/Vol] 47 mg/dL Normal <=200 [facility] Comment on above: Result Comment: Chol esterol level, Desirable <200 mg/dL Borderline high cholesterol 200-239 mg/dL High cholesterol >=240 mg/dL Recommendations of the NCEP Adult Treatment Panel for the following risk-cutoff thresholds for the [place] population. Performed By: #### L 501.9520, L506.0400, L500.4100, L501.13815 ####[facility] [address] [place], [address] Cholesterol in HDL [Mass/Vol] 88 mg/dL Normal [facility] Comment on above: Result Comment: Nydia onal Cholesterol Education Program (NCEP) guidelines: <40 mg/dL: Low HDL-cholesterol (major risk factor for CHD) >= 60 mg/dL: High HDL-cholesterol (negative risk factor for CHD) HDL-cholesterol is affected by a number of factors, e.g. smoking, exercise, hormones, sex and age. Performed By: #### L 501.9520, L506.0400, L500.4100, L501.36177 ####[facility] [address] [place], [address] Cholesterol in LDL [Mass/Vol] -50 mg/dL Normal [facility] Comment on above: Result Comment: Bord icjoxw=244-788 mg/dL Higher Fnqm=149 mg/dL or greater Performed By: #### L 501.9520, L506.0400, L500.4100, L501.71672 ####[facility] [address] [place], [address] Cholesterol in VLDL [Mass/Vol] 9 mg/dL Normal 5-40 [facility] Comment on above: Performed By: #### L 501.9520, L506.0400, L500.4100, L501.86080 ####[facility] [address] [place], [address] Triglyceride [Mass/Vol] 45 mg/dL Normal [facility] Comment on above: Result Comment: The drugs N-Acetylcysteine and Metamizole may falsely depress this assay. Normal range: <150 mg/dL Borderline High: 150-199 mg/dL High: 200-499 mg/dL Very High: >500 mg/dL Performed By: #### L 501.9520, L506.0400, L500.4100, L501.55114 ####[facility] [address] [place], [address] T4 Free Directon 08-18-2024 T4 FREE DIRECT 0.90 ng/dL Normal 0.76-1.46 [facility] Comment on above: Order Comment: Y Performed By: #### L 501.9520, L506.0400, L500.4100, L501.58345 ####[facility] [address] [place], [address] Thyroid Stim Hormone (TSH)on 08-18-2024 TSH 3.080 uIU/mL Normal 0.300-4.20 0 [facility] Comment on above: Performed By: #### L 501.9520, L506.0400, L500.4100, L501.55752 ####[facility] [address] [place], [address] Lumbar Spine 2 or 3 Viewson 07-09-2024 Lumbar Spine 2 or 3 Views [facility] [address] [place] [address] Lumbar Spine 2 or 3 Views MR#: [id number] Acct: [id number] Name: HELEN ROLAND Rep #: [id number] : 1970 F 54 From: Anand Rogers MD PCP: Dr. Milka Schneider MD Status: REG CLI Study: Lumbar Spine 2 or 3 Views Date of Exam: Exam# [id number] Ordering Dr: Omaira Reilly MD :[id number] EXAM: XR LUMBOSACRAL SPINE, 2 OR 3 VIEWS CLINICAL INDICATION: Low back pain, unspecified TECHNIQUE: Frontal and lateral views of the lumbar spine and sacrum. COMPARISON: 01/12/2021. FINDINGS: VERTEBRAE: Unremarkable. Preserved vertebral body height. No fracture. No spondylolisthesis. Preservation of the normal lumbar lordosis. No significant facet arthropathy. DISC SPACES: No acute findings. Disc spaces are maintained. GASTROINTESTINAL TRACT: Unremarkable as visualized. Included bowel gas pattern is non-obstructive. RAD/Lumbar Spine 2 or 3 Views IMPRESSION: Normal lumbar spine radiographs and unchanged. Electronically Signed: Anand Rogers MD at 16:11 EST , CC: Dr. Omaira Reilly MD; Dr. Milka Schneider MD [employer] Advisor: Signed [facility] Inital Evaluation (1) - PTon 06-20-2024 Inital Evaluation (1) - PT [facility] [address] [place] [address]. [address] [place] [address] / REHABILITATION SERVICES INITIAL EVALUATION MR#: [id number] Acct: [id number] Name: HELEN ROLAND Rep #: [id number] : 1970 53 From: Ángel Nieslon PT, ATC Referring Dr.: Dr. Milka Schneider MD Status: RE G RCR Insurance: [employer] SELF PAY INSURANCE Patient's Visit Information Visit Information Visit Information: HELEN ROLAND is a 53 year old F referred to Physical Therapy by Dr. Milka Schneider MD with a diagnosis of R hip pain. Date of Evaluation: 06/20/24 Physical Therapist: Ángel Nielson, PT, ATC Visit Plan Frequency: 2-3x /Week Duration: 4-6 Weeks Plan: Postural edu, REIL, core stab ex's, and HEP Subjective Subjective: Pt reports she had R groin pain for approximately 2 weeks. Pt notes her pain has since moved to her posterior hip and and LB region. 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 Pt notes she experiences increased pain when she bends forward to sisal picker items. Pt notes the pain will occasionally radiate down her R LE to her mid hamstring region. Pt reports sleep difficulty secondary to pain. Pt reports prolonged standing and walking both increases her pain. Pt also notes increased pain with sitting. Pt reports she has to continually change positions in order to control her pain. Pt notes descending stairs is really hard for her as well secondary to R hip pain. 9/10 pain while sitting here in the clinic, 10/10 at worst. Pain R hip pain: Pain Intensity (Out of 10): 9 Pain Intensity Range: 10 Objective Objective: Neuro: B LE sensation is WNL to light touch TU seconds MMT: B LE's are grossly 4-/5 throughout and are limited by LBP ROM: Pt is severely limited with L/S ext ROM Repeated movements: REIL 10x2 decreased pain Balance/Special Test Scores Lower Extremity Functional Score: 16 Goals Goal 1:: Decrease LBP x 50% to aid with sleep Goal Time Frame: 4-6 Weeks Goal 2:: Increase L/S ext ROM x 1 grade to aid with decreasing LBP Goal Time Frame: 4-6 Weeks Goal 3:: Decrease the frequency and intensity of R LE radiculopathy x 50% to aid with ambulation Goal Time Frame: 4-6 Weeks Goal 4:: I with HEP Goal Time Frame: 4-6 Weeks Rehabilitation Potential Physical Therapy Diagnosis: Pt has R hip pain, R LE radiculopathy, and limited L/S ROM secondary to lumbar spine disc derangement Rehabilitation Potential: Good Anticipated Interventions Patient/Client Instruction: Educate patient on: Condition and Plan of Care For the Purpose of:: To improve self management Therapeutic Exercise to Include: Strength training, Endurance training, Postural training, Flexibilty training, Dynamic Lumbar Stabilization and Eliel Exercises For the Purpose of:: To decrease pain, To increase ROM and To improve muscle performance and motor function Text: Thank you for the opportunity to evaluate your patient. For Medicare and Medicare HMO plans, please review the plan of care and approve it. It will need to be FAXED BACK to us at [phone] for Medicare purposes. For Medicare only, by signing this I certify the plan of care. Please let me know if there are questions or concerns regarding this plan of care. Physician Signature: ___Date: 06/20/24 1505 CC: Dr. Milka Schneider MD [facility] Signed [facility] HIP, UNI W/ Pelvis 2-3 Views on 06-17-2024 HIP, UNI W/ Pelvis 2-3 Views [facility] Services [address] [place], [place] [id number] HIP, UNI W/ Pelvis 2-3 Views MR#: [id number] Acct: [id number] Name: LUANHELEN Wander Rep #: [id number] : 1970 F 53 From: Garfield Bowden MD PCP: Dr. Milka Schneider MD Status: [facility] Study: HIP, UNI W/ Pelvis 2-3 Views Date of Exam: Exam# [id number] Ordering Dr: Raquel Milton PAYROLL ASSISTANT-C :[id number] STUDY: X-RAY - PELVIS AND RIGHT HIP REASON FOR EXAM: Female, 53 years old. PAIN IN HIP TECHNIQUE: 3 views of the pelvis and hip. COMPARISON: 01/12/2021 FINDINGS: There is a non-specific bowel gas pattern. Normal visualized soft tissue structures. Normal bilateral iliac wings, sacroiliac joints and visualized sacrum. Normal bilateral superior and inferior pubic rami. Normal pubic symphysis. Normal bilateral ischial tuberosities. Normal visualized femoral head. Normal acetabulum. Normal hip joint. RAD/HIP, UNI W/ Pelvis 2-3 Views IMPRESSION: Normal x-ray examination of the pelvis and hip. Electronically Signed: Garfield Bowden MD at 23:19 EST , CC: FRANCOIS Milton; Dr. Milka Schneider MD [employer] Advisor: Signed [facility] MR/BMS.BPon 05-06-2024 MR/BMS.BP [address], [address] [place] [address] OFFICE VISIT Date of Service: 05/06/24 MR#: [id number] Acct: [id number] Name: HELEN ROLAND Rep #: [id number] : 1970 Provider: Dr. Samir Abraham se, DO Age/Sex: 53/F Location: [facility] [place] Status: Signed Intake Vital Signs 01/28/24 14:27 05/06/24 13:25 Height 5 ft 8 in 5 ft 8 in BP 147/83 H Blood Pressure Location Rt brachial Position Sitting Respiration 16 Pulse 70 Pulse Source Monitor BP Intake Visit Reasons: 3 M FU Accompanied by: Self Allergies azithromycin (From Zithromax Z-Keo) Allergy (Verified 05/06/24 13:33) Diarrhea sumatriptan (From Imitrex) Allergy (Verified 05/06/24 13:33) TUNNEL VISION sumatriptan succinate (From Imitrex) Allergy (Verified 05/06/24 13:33) TUNNEL VISION tramadol Adverse Reaction (Verified 05/06/24 13:33) nausea and vomiting Medications ???Medication ???Instructions ???Recorded ???Confirmed ???Type losartan 25 mg tablet (Cozaar) 25 mg PO DAILY 01/27/21 05/06/24 History hydroxyzine pamoate 50 mg capsule 50 mg PO DAILY PRN anxiety 03/13/23 05/06/24 History (Vistaril) cyclobenzaprine 10 mg tablet 10 mg PO TID PRN Muscle Spasm #20 04/04/23 05/06/24 Rx TABLETS ondansetron 4 mg disintegrating 4 mg PO Q8H PRN PRN Nausea #10 tabs 05/02/23 05/06/24 Rx tablet levothyroxine 100 mcg tablet 100 mcg PO DAILY 07/20/23 05/06/24 History valacyclovir 500 mg tablet 500 mg PO Q12H PRN cold sores 07/20/23 05/06/24 History fluticasone propionate 50 1 spray intranasal DAILY PRN 10/15/23 05/06/24 History mcg/actuation nasal allergy symptoms spray,suspension naproxen 500 mg tablet 500 mg PO BID 10/15/23 05/06/24 History trazodone 100 mg tablet 100 mg PO QHS 10/15/23 05/06/24 History lorazepam 1 mg tablet 1 mg PO QDAY PRN anxiety #30 tabs 10/22/23 05/06/24 Rx omeprazole 40 mg capsule,delayed 40 mg PO DAILY #60 caps 10/30/23 05/06/24 Rx release duloxetine 60 mg capsule,delayed 60 mg PO DAILY #30 caps 05/05/24 05/06/24 Rx release lorazepam 1 mg tablet 1 mg PO DAILY PRN anxiety #30 tabs 05/05/24 05/06/24 Rx ferrous sulfate 134 mg (27 mg 134 mg PO .twice weekly 05/06/24 05/06/24 History iron) tablet hydrocodone-acetaminophen 5-325mg 1 tab PO TID PRN 05/06/24 05/06/24 History 5mg-325mg PFSH Medical History (Updated 05/07/24 @ 06:[address] Samir Couch, DO) Panic Gastric reflux ELLY (generalized anxiety disorder) Other acute postprocedural pain Methicillin resistant Staphylococcus epidermidis infection Thyroid disease History of staph infection Fat necrosis of breast Mass of right breast Mass of left breast Breast pain, left Wears glasses Wears partial dentures Anxiety History of steroid therapy Migraine headache Dietary restriction Difficulty swallowing History of ulceration Former smoker History of echocardiogram History of stress test Intertrigo Chronic thoracic back pain Shoulder pain Chronic neck pain Macromastia Vision problem Hormone deficiency Generalized headaches Carpal tunnel syndrome Back problem Allergies Anginal equivalent Anxiety GERD (gastroesophageal reflux disease) Hypertension Hypothyroidism Surgical History History of breast lump/mass excision History of bilateral breast reduction surgery History of esophagogastroduodenoscopy (EGD) History of carpal tunnel release S/P hysterectomy S/P laparoscopic cholecystectomy S/P left knee surgery S/P tubal ligation S/P wisdom tooth extraction S/P correction of deviated nasal septum Family History Other Anxiety Depression Epilepsy Hormone deficiency Hypertension Seizures Social History household members: significant other Smoking Status: Former smoker alcohol intake: never substance use type: does not use additional social history: Does Not Take Aspirin Does Not Take Ibuprofen HPI History of Present Illness History provided by: patient HPI: Helen Roland is a 53 year old female who presents today for follow up evaluation. Patient reports that she has been hanging in there. Reports to having had a panic attack several days ago and had to go home from work [facility] [employer] but this was the only time this happened. She happened to also be somewhat sick which contributed to symptoms. Has been taking medication as prescribed. Does feel somewhat sore from coughing, but otherwise is feeling better physically. Has bifocals but feels like this actually leads to lights bothering her. This tends to lead to an exacerbation of anxiety symptoms. Hopes to follow with Rayne Koo. No recent ER visits which is a positive. Denies SI/HI or AVH. (more content not included)... Normal [facility] 04-08-2024 [facility] Telephone (UCWSTR) HELEN ROLAND ([id number]) 1970 F Date Time Provider Department 04/08/24 ANTHONY WILLIAMSON [facility] During your visit today, we recorded the following information about you: Lidia Cohen MA 04/08/2024 7:46 AM Signed ----- Message from Anthony Williamson MD sent at 04/07/2024 8:42 PM EDT ----- Ankle xray showed no fractures. Lidia Cohen MA 04/08/2024 7:47 AM Signed Patient given results and verbalized understanding of instructions given. Lidia Cohen MA Allergies As of Date: 04/08/2024 Noted Allergy Reaction AZITHROMYCIN 01/16/2021 6 - Diarrhea DUST 04/27/2010 9 - Itching IMITREX (SUMATRIPTAN) 04/27/2010 14 - Other: See Comments Comments: vision Date Reviewed: 04/07/2024 Reviewed by: Lidia Cohen MA - Fully Assessed Reason for Visit: Results [95] Prescriptions as of 04/08/2024 - lidocaine (LIDODERM) 5 % Apply 1 Patch as directed every 12 hours. Remove old patch prior to placing new patch. Location: ankle - omeprazole (PRILOSEC) 40 mg capsule Take 1 capsule by mouth every afternoon. - sucralfate (CARAFATE) 1 gram tablet Take 1 g by mouth three times a day. - traZODone (DESYREL) 50 mg tablet Take 50 mg by mouth daily at bedtime. - valACYclovir (VALTREX) 500 mg tablet TAKE 1 TABLET BY MOUTH 2 TIMES A DAY for 3 days for outbreak - famotidine (PEPCID) 20 mg tablet 20 mg. - oxyCODONE-acetaminophen (PERCOCET) 5-325 mg tablet take 1 tablet by mouth twice a day if needed for pain SCORE OF 7-10 FOR 7 DAYS - busPIRone (BUSPAR) 5 mg tablet take 1 tablet by mouth twice a day for anxiety - magnesium citrate solution Take by mouth. - levothyroxine (SYNTHROID) 50 mcg tablet Take 50 mcg by mouth daily before breakfast. - escitalopram oxalate (LEXAPRO) 10 mg tablet - fluticasone (FLONASE) 50 mcg/actuation nasal spray 1 Preston once daily. - LORazepam (ATIVAN) 1 mg tablet Take 1 mg by mouth two times a day as needed. - LINZESS 290 mcg capsule Take 290 mcg by mouth once daily. - Omeprazole Magnesium 20 mg tablet Take 20 mg by mouth. - levothyroxine (SYNTHROID) 137 mcg tablet Take 1 tablet by mouth once daily. - hydrOXYzine pamoate (VISTARIL) 25 mg capsule Take 25 mg by mouth three times a day as needed. - zolpidem (AMBIEN) 5 mg tablet Take 5 mg by mouth at bedtime as needed. - ondansetron orally disintegrating (ZOFRAN ODT) 4 mg disintegrating tablet Take 1 tablet by mouth every 12 hours as needed for Nausea/Vomiting. - estradiol (ESTRACE) 1 mg tablet Take 1 mg by mouth once daily. - losartan (COZAAR) 50 mg tablet Take 1 tablet by mouth once daily. Meds Comments as of 12/03/2022: December 03, 2022: Patient reports no changes to medications in the last 30 days. Norma Connell RN Problem List As Of Date 04/08/2024 Noted Resolved Abdominal pain, epigastric [R10.13] 10/25/2011 GERD (gastroesophageal reflux disease) [K21.9] 04/05/2015 Seasonal allergies [J30.2] 04/05/2015 Obesity (BMI 35.0-39.9 without comorbidity) [E6*10/28/2015 Ilioinguinal neuralgia of right side [G57.91] 05/09/2017 High-tone pelvic floor dysfunction [M62.89] 05/09/2017 Trigger point [M79.10] 05/09/2017 Deep dyspareunia [N94.12] 05/09/2017 Encounter Status:Closed by LIDIA COHEN on 04/08/24 [facility] CNOVon 04-07-2024 CNOV Office Visit (UCWSTR ) HELEN ROLAND ([id number]) 1970 F Date Time Provider Department 04/07/24 7:15 PM ARACELI BURNS CONNER During your visit today, we recorded the following information about you: Temperature Pulse Respiration Blood pressure 97.2 degrees 62/minute 16/minute 110/64 Weight 84.6 kg Araceli Burns APRN.SURGICAL DRESSING MAKER 04/07/2024 7:58 PM Signed Subjective HPI HPI Helen Roland is a 53 year old female who presents today for CC of right ankle pain. This started 5 days ago. Has tried otc medication and compression for relief. Symptoms are worsened by rom. Denies injury, numbness/tingling. .Patient presents with: Ankle Injury: right x 5 days PAST MEDICAL HISTORY Diagnosis Date Anxiety GERD [...] ALLERGIES Azithromycin, Dust, and Imitrex [Sumatriptan] MEDICATIONS omeprazole (PRILOSEC) 40 mg capsule Take 1 capsule by mouth every afternoon. traZODone (DESYREL) 50 mg tablet Take 50 mg by mouth daily at bedtime. valACYclovir (VALTREX) 500 mg tablet TAKE 1 TABLET BY MOUTH 2 TIMES A DAY for 3 days for outbreak magnesium citrate solution Take by mouth. levothyroxine (SYNTHROID) 50 mcg tablet Take 50 mcg by mouth daily before breakfast. fluticasone (FLONASE) 50 mcg/actuation nasal spray 1 Preston once daily. LORazepam (ATIVAN) 1 mg tablet Take 1 mg by mouth two times a day as needed. hydrOXYzine pamoate (VISTARIL) 25 mg capsule Take 25 mg by mouth three times a day as needed. losartan (COZAAR) 50 mg tablet Take 1 tablet by mouth once daily. sucralfate (CARAFATE) 1 gram tablet Take 1 g by mouth three times a day. (Patient not taking: Reported on 04/07/2024) famotidine (PEPCID) 20 mg tablet 20 mg. (Patient not taking: Reported on 08/20/2023) oxyCODONE-acetaminophen (PERCOCET) 5-325 mg tablet take 1 tablet by mouth twice a day if needed for pain SCORE OF 7-10 FOR 7 DAYS (Patient not taking: Reported on 12/03/2022) busPIRone (BUSPAR) 5 mg tablet take 1 tablet by mouth twice a day for anxiety (Patient not taking: Reported on 03/02/2024) escitalopram oxalate (LEXAPRO) 10 mg tablet (Patient not taking: Reported on 03/02/2024) LINZESS 290 mcg capsule Take 290 mcg by mouth once daily. (Patient not taking: Reported on 03/02/2024) Omeprazole Magnesium 20 mg tablet Take 20 mg by mouth. (Patient not taking: Reported on 12/03/2022) levothyroxine (SYNTHROID) 137 mcg tablet Take 1 tablet by mouth once daily. (Patient not taking: Reported on 05/27/2022) zolpidem (AMBIEN) 5 mg tablet Take 5 mg by mouth at bedtime as needed. (Patient not taking: Reported on 07/31/2023) ondansetron orally disintegrating (ZOFRAN ODT) 4 mg [...] Social History Tobacco Use Smoking status: Former Current packs/day: 0.00 Average packs/day: 0.5 packs/day for 10.0 years (5.0 ttl pk-yrs) Types: Cigarettes Start date: 09/16/2002 Quit date: 09/16/2012 Years since quittin.5 Smokeless tobacco: Never Substance Use Topics Alcohol use: No Drug use: No ROS Objective Blood pressure 110/64, pulse 62, temperature 36.2 ?C (97.2 ?F), resp. rate 16, weight 84.6 kg (186 lb 8.2 oz), last menstrual period 06/18/2019, SpO2 98%. Physical Exam Constitutional: General: She is not in acute distress. Appearance: She is not toxic-appearing or diaphoretic. HENT: Head: Normocephalic and atraumatic. Pulmonary: Effort: Pulmonary effort is normal. No accessory muscle usage or respiratory distress. Musculoskeletal: Legs: Neurological: Mental Status: She is alert and oriented to person, place, and time. ASSESSMENT/PLAN: 1. Acute right ankle pain - ICD9: 719.47, 338.19, ICD10: M25.571 Xray not resulted before end of shift No acute/major bony abnormalities noted. Call result in AM, if negative f/u with pcp if in 3-7 days if s/s persist. - XR ANKLE GENERAL 3V AP/LAT/OBL RIGHT - LIDOCAINE 5 % TOPICAL PATCH Araceli Burns APRN.SURGICAL DRESSING MAKER Allergies As of Date: 04/07/2024 Noted All (more content not included)... Normal [facility] XR ANKLE 3V AP/LAT/OBL RTon 04-07-2024 XR ANKLE 3V AP/LAT/OBL RT * * *Final Report* * * DATE OF EXAM: Apr 07 2024 7:31PM WOX [id number] - XR ANKLE 3V AP/LAT/OBL RT / PROCEDURE REASON: Acute right ankle pain * * * * Physician Interpretation * * * * RIGHT ANKLE X-RAY SERIES HISTORY: Acute right ankle pain TECHNIQUE: AP, lateral and oblique views. COMPARISON: None available. RESULT: No fracture, dislocation or destructive changes. Joint spaces and articular surfaces are preserved. Calcaneal spurring is noted. IMPRESSION: No acute osseous abnormalities are identified . [employer] Advisor: CARMEL Transcribe Date/Time: Apr 07 2024 8:00P Dictated by : KAYLA LAU MD This examination was interpreted and the report reviewed and electronically signed by: KAYLA LAU MD on Apr 07 2024 8:01PM EST [id number] Normal [facility] XR Ankle - right AP and Late ral and obliqueon 04-07-2024 IMPRESSION: No acute osseous abnormalities are identified . [employer] Advisor: PSCKeyanna Transcribe Date/Time: Apr 07 2024 8:00P Dictated by : KAYLA LAU MD This examination was interpreted and the report reviewed and electronically signed by: KAYLA LAU MD on Apr 07 2024 8:01PM EST DIVISION OF RADIOLOGY * * *Final Report* * * DATE OF EXAM: Apr 07 2024 7:31PM WOX [id number] - XR ANKLE 3V AP/LAT/OBL RT / PROCEDURE REASON: Acute right ankle pain * * * * Physician Interpretation * * * * RIGHT ANKLE X-RAY SERIES HISTORY: Acute right ankle pain TECHNIQUE: AP, lateral and oblique views. COMPARISON: None available. RESULT: No fracture, dislocation or destructive changes. Joint spaces and articular surfaces are preserved. Calcaneal spurring is noted. DIVISION OF RADIOLOGY [facility] * * *Final Report* * * DATE OF EXAM: Apr 07 2024 7:31PM WOX [id number] - XR ANKLE 3V AP/LAT/OBL RT / PROCEDURE REASON: Acute right ankle pain * * * * Physician Interpretation * * * * RIGHT ANKLE X-RAY SERIES HISTORY: Acute right ankle pain TECHNIQUE: AP, lateral and oblique views. COMPARISON: None available. RESULT: No fracture, dislocation or destructive changes. Joint spaces and articular surfaces are preserved. Calcaneal spurring is noted. IMPRESSION IMPRESSION: No acute osseous abnormalities are identified . [employer] Advisor: PSCB Transcribe Date/Time: Apr 07 2024 8:00P Dictated by : KAYLA LAU MD This examination was interpreted and the report reviewed and electronically signed by: KAYLA LAU MD on Apr 07 2024 8:01PM EST [facility] Radiology Study observation (narrative) [facility] XR Ankle - right AP and Late ral and obliqueOrdered By: Cc Provider on 04-07-2024 [facility] CNOVon 03-02-2024 CNOV Office Visit (UCWSTR ) HELEN ROLAND ([id number]) 1970 F Date Time Provider Department 03/02/24 8:30 AM EMILE BENTLEY [facility] During your visit today, we recorded the following information about you: Temperature Pulse Respiration Blood pressure 98.3 degrees 96/minute 16/minute 120/70 Weight 87.3 kg Emile Bentley APRN.SURGICAL DRESSING MAKER 03/02/2024 8:52 AM Signed CC: Patient presents with: Sore Throat: rash on legs x 4 days HPI: Helen Roland is a 53 year old female who presents to the office with complaint of cough, productive for a few days. Symptoms are worsening Associated symptoms includes rash. Denies nausea, vomiting , and diarrhea. Treatments tried include nothing so far. with no relief of symptoms. Sick contacts: unknown. History of asthma, frequent episodes of bronchitis, chronic bronchitis, bronchiectasis or COPD: No Smoker: No Seasonal/environmental allergies: No The ROS is otherwise negative. The patient's pmh, medications, allergies, and past visits are reviewed. PHYSICAL EXAM: BP 120/70 Pulse 96 Temp 36.8 ?C (98.3 ?F) Resp 16 Wt 87.3 kg (192 lb 7.4 oz) LMP 06/18/2019 SpO2 98% BMI 29.26 kg/m? General appearance: alert, cooperative, pleasant, in no acute distress Head: Normocephalic Eyes: EOM's intact, conjunctiva pink and moist, no icterus, sclera white, non-injected Ears: Right ear: External ear/canal- Normal, TM - clear with good landmarks. Left ear: External ear/canal- Normal, TM - clear with good landmarks Oropharynx:moist without lesions, No erythema, exudates or tonsillar hypertrophy. Heart: Negative. RRR without obvious murmur, gallop, or rubs. No ectopy. Lungs: clear to auscultation, without rales or wheeze, good air exchange PAST MEDICAL HISTORY Diagnosis Date Anxiety GERD [...] ALLERGIES Azithromycin, Dust, and Imitrex [Sumatriptan] MEDICATIONS omeprazole (PRILOSEC) 40 mg capsule Take 1 capsule by mouth every afternoon. sucralfate (CARAFATE) 1 gram tablet Take 1 g by mouth three times a day. traZODone (DESYREL) 50 mg tablet Take 50 mg by mouth daily at bedtime. valACYclovir (VALTREX) 500 mg tablet TAKE 1 TABLET BY MOUTH 2 TIMES A DAY for 3 days for outbreak magnesium citrate solution Take by mouth. levothyroxine (SYNTHROID) 50 mcg tablet Take 50 mcg by mouth daily before breakfast. fluticasone (FLONASE) 50 mcg/actuation nasal spray 1 Preston once daily. LORazepam (ATIVAN) 1 mg tablet Take 1 mg by mouth two times a day as needed. hydrOXYzine pamoate (VISTARIL) 25 mg capsule Take 25 mg by mouth three times a day as needed. losartan (COZAAR) 50 mg tablet Take 1 tablet by mouth once daily. famotidine (PEPCID) 20 mg tablet 20 mg. (Patient not taking: Reported on 08/20/2023) oxyCODONE-acetaminophen (PERCOCET) 5-325 mg tablet take 1 tablet by mouth twice a day if needed for pain SCORE OF 7-10 FOR 7 DAYS (Patient not taking: Reported on 12/03/2022) busPIRone (BUSPAR) 5 mg tablet take 1 tablet by mouth twice a day for anxiety (Patient not taking: Reported on 03/02/2024) escitalopram oxalate (LEXAPRO) 10 mg tablet (Patient not taking: Reported on 03/02/2024) LINZESS 290 mcg capsule Take 290 mcg by mouth once daily. (Patient not taking: Reported on 03/02/2024) Omeprazole Magnesium 20 mg tablet Take 20 mg by mouth. (Patient not taking: Reported on 12/03/2022) levothyroxine (SYNTHROID) 137 mcg tablet Take 1 tablet by mouth once daily. (Patient not taking: Reported on 05/27/2022) zolpidem (AMBIEN) 5 mg tablet Take 5 mg by mouth at bedtime as needed. (Patient not taking: Reported on 07/31/2023) ondansetron orally disintegrating (ZOFRAN ODT) 4 mg [...] Social History Tobacco Use Smoking status: Former Current packs/day: 0.00 Average packs/day: 0.5 packs/day for 10.0 years (5.0 ttl pk-yrs) Types: Cigarettes Start date: 09/16/2002 Quit date: 09/16/2012 Years since quittin.4 Smokeless tobacco: Ne (more content not included)... Normal [facility] STREP A MOLECULAR (POC)on Procedural Control Valid [facility] Strep A (POCT) Negative Negative [facility] Antinuclear Antibody, IFAon 01-29-2024 MALACHI, IFA Negative Normal . [facility] Comment on above: Result Comment: Nega tive <1:80 Borderline 1:80 Positive >1:80 ICAP nomenclature: AC-0 For more information about Hep-2 cell patterns use ANApatterns.org, the official website for the International Consensus on Antinuclear Antibody (MALACHI) Patterns (ICAP). Performed at: - [facility] [id number] [address] Sql Developer: Juan C Neff PhD, Phone: [phone] Performed By: #### L 505.1065, L3100.3450, L501.6710, L100.0100, L101.9900, L4600.0100 ####[facility] [id number] [place], [address] MR/BMS.BPon 01-28-2024 MR/BMS.BP [facility] [address] [place] [address], [address] [place] [address] OFFICE VISIT Date of Service: 01/28/24 MR#: [id number] Acct: [id number] Name: HELEN ROLAND Rep #: [id number] : 1970 Provider: Dr. Samir Abraham se, DO Age/Sex: 53/F Location: [facility] [place].BP Status: Signed Intake Vital Signs 10/22/23 16:02 01/28/24 14:25 01/28/24 14:27 Height 5 ft 8 in 5 ft 8 in 5 ft 8 in BP 150/83 H Blood Pressure Location Rt brachial Position Sitting Pulse 83 Pulse Source Monitor BP Intake Visit Reasons: 3 M FU Clerical Receptionist Required: No Accompanied by: Self Is patient in pain?: No Allergies azithromycin (From Zithromax Z-Keo) Allergy (Verified 01/28/24 14:26) Diarrhea sumatriptan (From Imitrex) Allergy (Verified 01/28/24 14:26) TUNNEL VISION sumatriptan succinate (From Imitrex) Allergy (Verified 01/28/24 14:26) TUNNEL VISION tramadol Adverse Reaction (Verified 01/28/24 14:26) nausea and vomiting Medications ???Medication ???Instructions ???Recorded ???Confirmed ???Type losartan 25 mg tablet (Cozaar) 25 mg PO DAILY 01/27/21 01/28/24 History hydroxyzine pamoate 50 mg capsule 50 mg PO DAILY PRN anxiety 03/13/23 01/28/24 History (Vistaril) cyclobenzaprine 10 mg tablet 10 mg PO TID PRN Muscle Spasm #20 04/04/23 01/28/24 Rx TABLETS dicyclomine 10 mg capsule 10 mg PO TID PRN abdominal pain 04/26/23 01/28/24 History ondansetron 4 mg disintegrating 4 mg PO Q8H PRN PRN Nausea #10 tabs 05/02/23 01/28/24 Rx tablet levothyroxine 100 mcg tablet 100 mcg PO DAILY 07/20/23 01/28/24 History sucralfate 1 gram tablet (Carafate) 1 g PO TID #30 tabs 07/20/23 01/28/24 Rx valacyclovir 500 mg tablet 500 mg PO Q12H PRN cold sores 07/20/23 01/28/24 History famotidine 20 mg tablet 20 mg PO BID 10/15/23 01/28/24 History fluticasone propionate 50 1 spray intranasal DAILY PRN 10/15/23 01/28/24 History mcg/actuation nasal allergy symptoms spray,suspension naproxen 500 mg tablet 500 mg PO BID 10/15/23 01/28/24 History trazodone 100 mg tablet 100 mg PO QHS 10/15/23 01/28/24 History lorazepam 1 mg tablet 1 mg PO QDAY PRN anxiety #30 tabs 10/22/23 01/28/24 Rx omeprazole 40 mg capsule,delayed 40 mg PO DAILY #60 caps 10/30/23 01/28/24 Rx release duloxetine 60 mg capsule,delayed 60 mg PO DAILY #30 caps 01/08/24 01/28/24 Rx release lorazepam 1 mg tablet 1 mg PO DAILY PRN anxiety #30 tabs 01/08/24 01/28/24 Rx Current gender identity: female Nurse's Note: Presents to the office today for follow up. [facility] Medical History Gastric reflux ELLY (generalized anxiety disorder) Other acute postprocedural pain Methicillin resistant Staphylococcus epidermidis infection Thyroid disease History of staph infection Fat necrosis of breast Mass of right breast Mass of left breast Breast pain, left Wears glasses Wears partial dentures Anxiety History of steroid therapy Migraine headache Dietary restriction Difficulty swallowing History of ulceration Former smoker History of echocardiogram History of stress test Intertrigo Chronic thoracic back pain Shoulder pain Chronic neck pain Macromastia Vision problem Hormone deficiency Generalized headaches Carpal tunnel syndrome Back problem Allergies Anginal equivalent Anxiety GERD (gastroesophageal reflux disease) Hypertension Hypothyroidism Surgical History History of breast lump/mass excision History of bilateral breast reduction surgery History of esophagogastroduodenoscopy (EGD) History of carpal tunnel release S/P hysterectomy S/P laparoscopic cholecystectomy S/P left knee surgery S/P tubal ligation S/P wisdom tooth extraction S/P correction of deviated nasal septum Family History Other Anxiety Depression Epilepsy Hormone deficiency Hypertension Seizures Social History household members: significant other Smoking Status: Former smoker alcohol intake: never substance use type: does not use additional social history: Does Not Take Aspirin Does Not Take Ibuprofen HPI History of Present Illness History provided by: patient HPI: Helen Roland is a 53 year old female who presents today for follow up evaluation. Patient reports that she had her worst week every this week. Started to having worsening hand and foot pain starting this last week. Was given a shot of kenalog by her PCP. Things started to get worse in regards to back pain and started to feel more anxious. Ended up going to ER and getting morphine shot per self report. Is anxious about why she was in pain to begin with. Took 2-3 days of working with her to relax, but again is worried t (more content not included)... Normal [facility] .Auto Diffon 01-26-2024 Basophil, Absolute 0.1 10 3/mcL Normal 0.0-0.2 [facility] ([place]) Comment on above: Performed By: #### M DW, ADIFF, CBC, LIP, ANEU, BMP, GFR #### [address] [address] Basophils/100 WBC (Bld) 0.8 % Normal 0.0-2.5 [facility] ([place]) Comment on above: Performed By: #### M DW, ADIFF, CBC, LIP, ANEU, BMP, GFR #### [address] [address] Eosinophil, Absolute 0.2 10 3/mcL Normal 0.0-0.4 [facility] ([place]) Comment on above: Performed By: #### M DW, ADIFF, CBC, LIP, ANEU, BMP, GFR #### [address] [address] Eosinophils/100 WBC (Bld) 2.6 % Normal 0.0-7.0 [facility] ([place]) Comment on above: Performed By: #### M DW, ADIFF, CBC, LIP, ANEU, BMP, GFR #### [address] [address] Lymphocyte, Absolute 1.6 10 3/mcL Normal 0.8-3.9 [facility] ([place]) Comment on above: Performed By: #### M DW, ADIFF, CBC, LIP, ANEU, BMP, GFR #### [address] [address] Lymphocytes/100 WBC (Bld) 21.1 % Normal 10.0-50.0 [facility] ([place]) Comment on above: Performed By: #### M DW, ADIFF, CBC, LIP, ANEU, BMP, GFR #### [address] [address] Monocyte, Absolute 0.3 10 3/mcL Normal 0.2-1.0 [facility] ([place]) Comment on above: Performed By: #### M DW, ADIFF, CBC, LIP, ANEU, BMP, GFR #### [address] [address] Monocytes/100 WBC (Bld) 4.2 % Normal 1.7-13.0 [facility] ([place]) Comment on above: Performed By: #### M DW, ADIFF, CBC, LIP, ANEU, BMP, GFR #### [address] [address] Neutrophils/100 WBC (Bld) 71.3 % Normal 37.0-80.0 [facility] ([place]) Comment on above: Performed By: #### M DW, ADIFF, CBC, LIP, ANEU, BMP, GFR #### [address] [address] .GFRon 01-26-2024 GFR Non- 51 ml/min/1.73sqm Normal [facility] ([place]) Comment on above: Result Comment: GFR Population mean for , Non- Americans Ages 20-29 = 116 mL/min/1.73 sq.m. Ages 30-39 = 107 mL/min/1.73 sq.m. Ages 40-49 = 99 mL/min/1.73 sq.m. Ages 50-59 = 93 mL/min/1.73 sq.m. Ages 60-69 = 85 mL/min/1.73 sq.m. Ages 70+ = 75 mL/min/1.73 sq.m. Chronic Kidney Disease: Less than 60 mL/min/1.73 square meters End Stage Renal Disease: Less than 15 mL/min/1.73 square meters Performed By: #### B MP, TSH, FT3, GFR, FT4 #### [address] [address] GFR 62 ml/min/1.73sqm Normal [facility] ([place]) Comment on above: Result Comment: GFR Population mean for , Non- Americans Ages 20-29 = 116 mL/min/1.73 sq.m. Ages 30-39 = 107 mL/min/1.73 sq.m. Ages 40-49 = 99 mL/min/1.73 sq.m. Ages 50-59 = 93 mL/min/1.73 sq.m. Ages 60-69 = 85 mL/min/1.73 sq.m. Ages 70+ = 75 mL/min/1.73 sq.m. Chronic Kidney Disease: Less than 60 mL/min/1.73 square meters End Stage Renal Disease: Less than 15 mL/min/1.73 square meters Performed By: #### B MP, TSH, FT3, GFR, FT4 #### [address] [address] .MDWon 01-26-2024 Monocyte Distribution Width 18.66 Normal 0.00-20.00 [facility]) Comment on above: Result Comment: For ED adult patients suspected of sepsis, MDW<=20.0 does not rule out sepsis or risk of sepsis Performed By: #### M DW, ADIFF, CBC, LIP, ANEU, BMP, GFR #### [address] [address] .NEUABSon 01-26-2024 Neutrophil, Absolute 5.4 10 3/mcL Normal 2.9-6.2 [facility]) Comment on above: Performed By: #### M DW, ADIFF, CBC, LIP, ANEU, BMP, GFR #### [address] [address] BMPon 01-26-2024 BUN/Creatinine Ratio 10 ratio Normal 7-27 [facility]) Comment on above: Performed By: #### M DW, ADIFF, CBC, LIP, ANEU, BMP, GFR #### [address] [address] Calcium [Mass/Vol] 9.6 mg/dL Normal 8.4-10.2 [facility]) Comment on above: Performed By: #### M DW, ADIFF, CBC, LIP, ANEU, BMP, GFR #### [address] [address] Chloride [Moles/Vol] 102 mmol/L Normal 98-107 [facility] ([place]) Comment on above: Performed By: #### M DW, ADIFF, CBC, LIP, ANEU, BMP, GFR #### [address] [address] CO2 [Moles/Vol] 29 mmol/L Normal 22-29 [facility] ([place]) Comment on above: Performed By: #### M DW, ADIFF, CBC, LIP, ANEU, BMP, GFR #### [place] [address] Creatinine [Mass/Vol] 1.12 mg/dL High 0.55-1.02 [facility] ([place]) Comment on above: Performed By: #### M DW, ADIFF, CBC, LIP, ANEU, BMP, GFR #### [address] [address] Electrolyte Balance 7.0 mEq/L Normal 4.0-15.0 [facility] ([place]) Comment on above: Performed By: #### M DW, ADIFF, CBC, LIP, ANEU, BMP, GFR #### [address] [address] Glucose [Mass/Vol] 103 mg/dL Normal 70-105 [facility] ([place]) Comment on above: Performed By: #### M DW, ADIFF, CBC, LIP, ANEU, BMP, GFR #### [address] [address] Potassium [Moles/Vol] 4.1 mmol/L Normal 3.5-5.1 [facility] ([place]) Comment on above: Performed By: #### M DW, ADIFF, CBC, LIP, ANEU, BMP, GFR #### [place] [id number] Sodium [Moles/Vol] 138 mmol/L Normal 136-145 [facility] ([place]) Comment on above: Performed By: #### M DW, ADIFF, CBC, LIP, ANEU, BMP, GFR #### [place] [address] Urea nitrogen [Mass/Vol] 11 mg/dL Normal 7-18 [facility] ([place]) Comment on above: Performed By: #### M DW, ADIFF, CBC, LIP, ANEU, BMP, GFR #### [place] [address] CBCon 01-26-2024 Erythrocyte distribution width (RBC) [Ratio] 15.0 % High 11.5-14.5 [facility] ([place]) Comment on above: Performed By: #### M DW, ADIFF, CBC, LIP, ANEU, BMP, GFR #### [place] [address] Hematocrit (Bld) [Volume fraction] 39.5 % Normal 37.0-47.0 [facility] ([place]) Comment on above: Performed By: #### M DW, ADIFF, CBC, LIP, ANEU, BMP, GFR #### [place] [address] Hgb 13.0 G/dL Normal 12.0-16.0 [facility] ([place]) Comment on above: Performed By: #### M DW, ADIFF, CBC, LIP, ANEU, BMP, GFR #### [place] [address] MCH (RBC) [Entitic mass] 29.8 pg Normal 27.0-31.2 [facility] ([place]) Comment on above: Performed By: #### M DW, ADIFF, CBC, LIP, ANEU, BMP, GFR #### [place] [address] MCHC 32.9 G/dL Low 33.0-37.0 [facility] ([place]) Comment on above: Performed By: #### M DW, ADIFF, CBC, LIP, ANEU, BMP, GFR #### [place] [address] MCV (RBC) [Entitic vol] 90.7 fL Normal 80.0-94.0 [facility] ([place]) Comment on above: Performed By: #### M DW, ADIFF, CBC, LIP, ANEU, BMP, GFR #### [address] [address] Platelet 257 10 3/mcL Normal 130-400 [facility] ([place]) Comment on above: Performed By: #### M DW, ADIFF, CBC, LIP, ANEU, BMP, GFR #### [address] [address] Platelet mean volume (Bld) [Entitic vol] 7.5 fL Normal 7.4-10.4 [facility] ([place]) Comment on above: Performed By: #### M DW, ADIFF, CBC, LIP, ANEU, BMP, GFR #### [address] [address] RBC 4.36 10 6/mcL Normal 4.20-5.40 [facility] ([place]) Comment on above: Performed By: #### M DW, ADIFF, CBC, LIP, ANEU, BMP, GFR #### [address] [address] WBC 7.5 10 3/mcL Normal 4.6-10.8 [facility]) Comment on above: Performed By: #### M DW, ADIFF, CBC, LIP, ANEU, BMP, GFR #### [address] [address] CCP IgG Antibodieson 024 CCP IgG Ab. 9 units Normal 0-19 [facility] Comment on above: Result Comment: Nega tive <20 Weak positive 20 - 39 Moderate positive 40 - 59 Strong positive >59 Performed at: - [address] [id number] Senior [employer] [address] Sql Developer: Juan C Neff PhD, Phone: [phone] Performed By: #### L 505.4310, L3100.3950, L501.6710, L100.0100, L101.9900, L4600.0100 #### [facility] [address] [place], [place] [address], [address] CT ABD/PELVIS W/ IV CONTRAST ONLYon 01-26-2024 CT ABD/PELVIS W/ IV CONTRAST ONLY ORIGINAL EXAMINATION: CT OF THE ABDOMEN AND PELVIS WITH CONTRAST01/26/2024 2:27 pm TECHNIQUE: CT of the abdomen and pelvis was performed with the administration of intravenous contrast. Multiplanar reformatted images are provided for review. Automated exposure control, iterative reconstruction, and/or weight based adjustment of the mA/kV was utilized to reduce the radiation dose to as low as reasonably achievable. COMPARISON: CT abdomen pelvis 11/06/2022, 01/11/2019, and 10/24/2016. HISTORY: ORDERING SYSTEM PROVIDED HISTORY: Reason for Exam: Pain. Poor injection. FINDINGS: The included lung bases are clear. There is no visible pleural or pericardial effusion. The heart is normal in size. Calcific density seen at the right hepatic dome appears stable and may represent sequela remote trauma or a calcified granuloma, otherwise the liver appears unremarkable. Patient is status post cholecystectomy. The spleen, adrenal glands, and pancreas are within normal limits. The gallbladder is unremarkable. Symmetric nephrograms. No hydronephrosis. The ureters are normal in course and caliber. The urinary bladder appears unremarkable. Patient status post hysterectomy. The large and small bowel demonstrate no obstruction. The appendix is normal. No free intraperitoneal fluid or gas is identified. The aorta is normal in caliber. No abdominopelvic lymphadenopathy. There is no acute fracture. Stable appearance of a sclerotic lesion in the iliac bones since exam 10/24/2016. Mild degenerative changes are present in the spine. No acute soft tissue abnormality. Nodular soft tissue and calcified densities in the posterior right and left back likely due to injection granulomas. IMPRESSION: No acute abdominopelvic process. I have personally reviewed the images of this examination and agree with the resident's findings and interpretation. Interpreted by: Jackson Paulson MD Preliminary Report By: Sruthi Haas Electronically signed By Jackson Paulson MD Dictated Date: 01/26/2024 2:37:08 PM Prelim Date: 01/26/2024 2:50:49 PM Sign Date: 01/26/2024 3:23:18 PM Ordering Provider: [facility] ([place]) LABORATORYOrdered By: mAinah Nogueira on 01-26-2024 Appearance (U) Clear (01/26/24 12:47 PM) Normal Clear AO Auto Urine SS Bilirubin Ql (U) Negative (01/26/24 12:47 PM) Normal Negative AO Auto Urine SS Color (U) Yellow (01/26/24 12:47 PM) Normal AO Auto Urine SS Glucose Test strip (U) [Mass/Vol] Negative Normal Negative AO Auto Urine SS Hemoglobin Auto test strip (U) [Mass/Vol] Negative (01/26/24 12:47 PM) Normal Negative AO Auto Urine SS Ketones Ql (U) Negative Normal Negative AO Auto Urine SS UA Leuk Est Negative (01/26/24 12:47 PM) Normal Negative AO Auto Urine SS UA Nitrite Negative (01/26/24 12:47 PM) Normal Negative AO Auto Urine SS UA pH 7.5 (01/26/24 12:47 PM) Normal 5.0 - 8.0 AO Auto Urine SS UA Protein Negative Normal Negative AO Auto Urine SS UA Spec Grav 1.020 (01/26/24 12:47 PM) Normal 1.015-1.02 5 AO Auto Urine SS UA Specimen Type Clean Catch (01/26/24 12:47 PM) Normal AO Auto Urine SS UA Urobilinogen 0.2 E.U./dL Normal 0.2-1.0 AO Auto Urine SS LABORATORYOrdered By: SYSTEM SYSTEM on 01-26-2024 Basophil, Absolute 0.1 103/mcL Normal 0.0 - 0.2 10^3/mcL AO Workflow SS Basophils/100 WBC (Bld) 0.8 % Normal 0.0 - 2.5 % AO Workflow SS Calcium [Mass/Vol] 9.6 mg/dL Normal 8.4 - 10. 2 mg/dL AO ADM SS Chloride [Moles/Vol] 102 mmol/L Normal 98 - 10 7 mmol/L AO ADM SS CO2 [Moles/Vol] 29 mmol/L Normal 22 - 29 mmol/L AO ADM SS Creatinine [Mass/Vol] 1.12 mg/dL High 0.55 - 1.02 mg/dL AO ADM SS Electrolyte Balance 7.0 mEq/L Normal 4.0 - 15 .0 mEq/L AO ADM SS Eosinophil, Absolute 0.2 103/mcL Normal 0.0 - 0 .4 10^3/mcL AO Workflow SS Eosinophils/100 WBC (Bld) 2.6 % Normal 0.0 - 7.0 % AO Workflow SS Erythrocyte distribution width (RBC) [Ratio] 15.0 % High 11.5 - 14.5 % AO Workflow SS GFR/1.73 sq M.predicted among blacks MDRD (S/P/Bld) [Vol rate/Area] 62 ml/min/1.73sqm Invalid Interpretation Code AO Chemistry S Comment on above: Interpretive Data: GFR Population mean for , Non- Americans Ages 20-29 = 116 mL/min/1.73 sq.m. Ages 30-39 = 107 mL/min/1.73 sq.m. Ages 40-49 = 99 mL/min/1.73 sq.m. Ages 50-59 = 93 mL/min/1.73 sq.m. Ages 60-69 = 85 mL/min/1.73 sq.m. Ages 70+ = 75 mL/min/1.73 sq.m. Chronic Kidney Disease: Less than 60 mL/min/1.73 square meters End Stage Renal Disease: Less than 15 mL/min/1.73 square meters GFR/1.73 sq M.predicted among non-blacks MDRD (S/P/Bld) [Vol rate/Area] 51 ml/min/1.73sqm Invalid Interpretation Code AO Chemistry S Comment on above: Interpretive Data: GFR Population mean for , Non- Americans Ages 20-29 = 116 mL/min/1.73 sq.m. Ages 30-39 = 107 mL/min/1.73 sq.m. Ages 40-49 = 99 mL/min/1.73 sq.m. Ages 50-59 = 93 mL/min/1.73 sq.m. Ages 60-69 = 85 mL/min/1.73 sq.m. Ages 70+ = 75 mL/min/1.73 sq.m. Chronic Kidney Disease: Less than 60 mL/min/1.73 square meters End Stage Renal Disease: Less than 15 mL/min/1.73 square meters Glucose [Mass/Vol] 103 mg/dL Normal 70 - 105 mg/dL AO ADM SS Hematocrit (Bld) [Volume fraction] 39.5 % Normal 37.0 - 47.0 % AO Workflow SS Hemoglobin (Bld) [Mass/Vol] 13.0 G/dL Normal 12.0 - 16.0 G/dL AO Workflow SS Lipase [Catalytic activity/Vol] 27 U/L Normal 16 - 77 U/L AO ADM SS Lymphocyte, Absolute 1.6 103/mcL Normal 0.8 - 3 .9 10^3/mcL AO Workflow SS Lymphocytes/100 WBC (Bld) 21.1 % Normal 10.0 - 50.0 % AO Workflow SS MCH (RBC) [Entitic mass] 29.8 pg Normal 27.0 - 31.2 pg AO Workflow SS MCHC 32.9 G/dL Low 33.0 - 37.0 G/dL AO Workflow SS MCV (RBC) [Entitic vol] 90.7 fL Normal 80.0 - 94.0 fL AO Workflow SS Monocyte distribution width Auto (Bld) [Entitic vol] 18.66 1 Normal 0.00 - 20.00 AO Workflow SS Comment on above: Result Comment: For ED adult patients suspected of sepsis, MDW<=20.0 does not rule out sepsis or risk of sepsis Monocyte, Absolute 0.3 103/mcL Normal 0.2 - 1.0 10^3/mcL AO Workflow SS Monocytes/100 WBC (Bld) 4.2 % Normal 1.7 - 13.0 % AO Workflow SS Neutrophil, Absolute 5.4 103/mcL Normal 2.9 - 6 .2 10^3/mcL AO Workflow SS Neutrophils/100 WBC (Bld) 71.3 % Normal 37.0 - 80.0 % AO Workflow SS Platelet mean volume (Bld) [Entitic vol] 7.5 fL Normal 7.4 - 10.4 fL AO Workflow SS Platelets (Bld) [#/Vol] 257 103/mcL Normal 130 - 400 10^3/mcL AO Workflow SS Potassium [Moles/Vol] 4.1 mmol/L Normal 3.5 - 5.1 mmol/L AO ADM SS RBC (Bld) [#/Vol] 4.36 106/mcL Normal 4.20 - 5.40 10^6/mcL AO Workflow SS Sodium [Moles/Vol] 138 mmol/L Normal 136 - 145 mmol/L AO ADM SS Urea nitrogen [Mass/Vol] 11 mg/dL Normal 7 - 18 mg/dL AO ADM SS Urea nitrogen/Creatinine [Mass ratio] 10 ratio Normal 7 - 27 ratio AO ADM SS WBC (Bld) [#/Vol] 7.5 103/mcL Normal 4.6 - 10.8 10^3/mcL AO Workflow SS LIPon 01-26-2024 Lipase Level 27 U/L Normal 16-77 [facility] ([place]) Comment on above: Performed By: #### B MP, TSH, FT3, GFR, FT4 #### [address] [address] UAon 01-26-2024 Color (U) Yellow Normal [facility] ([place]) Comment on above: Performed By: #### B MP, TSH, FT3, GFR, FT4 #### [place] [address] Glucose (U) [Mass/Vol] Negative Normal Negative [facility] ([place]) Comment on above: Performed By: #### B MP, TSH, FT3, GFR, FT4 #### [place] [address] Ketones Ql (U) Negative Normal Negative [facility] ([place]) Comment on above: Performed By: #### B MP, TSH, FT3, GFR, FT4 #### [place] [address] UA Appear Clear Normal Clear [facility] ([place]) Comment on above: Performed By: #### B MP, TSH, FT3, GFR, FT4 #### [address] [address] UA Blood Negative Normal Negative [facility] ([place]) Comment on above: Performed By: #### B MP, TSH, FT3, GFR, FT4 #### [address] [address] UA Leuk Est Negative Normal Negative [facility] ([place]) Comment on above: Performed By: #### B MP, TSH, FT3, GFR, FT4 #### [address] [address] UA Nitrite Negative Normal Negative [facility] ([place]) Comment on above: Performed By: #### B MP, TSH, FT3, GFR, FT4 #### [address] [address] UA pH 7.5 Normal 5.0 - 8.0 [facility] ([place]) Comment on above: Performed By: #### B MP, TSH, FT3, GFR, FT4 #### [address] [address] UA Protein Negative Normal Negative [facility] ([place]) Comment on above: Performed By: #### B MP, TSH, FT3, GFR, FT4 #### [address] [address] UA Spec Grav 1.020 Normal 1.015-1.02 5 [facility] ([place]) Comment on above: Performed By: #### B MP, TSH, FT3, GFR, FT4 #### [address] [address] UA Specimen Type Clean Catch Normal [facility] ([place]) Comment on above: Performed By: #### B MP, TSH, FT3, GFR, FT4 #### [address] [address] UA Urobilinogen 0.2 E.U./dL Normal 0.2-1.0 [facility] ([place]) Comment on above: Performed By: #### B MP, TSH, FT3, GFR, FT4 #### [address] [address] Urobilinogen (U) [Mass/Vol] Negative Normal Negative [facility] ([place]) Comment on above: Performed By: #### B MP, TSH, FT3, GFR, FT4 #### [address] [address] CBC W/Diff, Automatedon 08-0 Absolute Lymph 2.25 X10 3/uL Normal 0.83-4.51 [facility] Comment on above: Performed By: #### L 505.7010, L3100.7950, L501.6710, L100.0100, L101.9900, L4600.0100 #### [facility] [address] [place], [address] Absolute Neut 5.6 X10 3/uL Normal 2.0-7.7 [facility] Comment on above: Performed By: #### L 505.7010, L3100.7950, L501.6710, L100.0100, L101.9900, L4600.0100 #### [facility] [address] [place], [address] Basophils/100 WBC (Bld) 0.7 % Normal 0-1 [facility] Comment on above: Performed By: #### L 505.7010, L3100.7950, L501.6710, L100.0100, L101.9900, L4600.0100 #### [facility] [address] [place], [address] Eosinophils/100 WBC (Bld) 4.7 % Normal 0-5 [facility] Comment on above: Performed By: #### L 505.7010, L3100.7950, L501.6710, L100.0100, L101.9900, L4600.0100 #### [facility] [address] [place], [address] Erythrocyte distribution width (RBC) [Ratio] 14.2 % Normal 11.6-14.6 [facility] Comment on above: Performed By: #### L 505.7010, L3100.7950, L501.6710, L100.0100, L101.9900, L4600.0100 #### [facility] [address] [place], [address] Hematocrit (Bld) [Volume fraction] 36.1 % Low 37-47 [facility] Comment on above: Performed By: #### L 505.7010, L3100.7950, L501.6710, L100.0100, L101.9900, L4600.0100 #### [facility] [address] [place], [address] Hemoglobin (Bld) [Mass/Vol] 11.3 g/dL Low 12.0-15.0 [facility] Comment on above: Performed By: #### L 505.7010, L3100.7950, L501.6710, L100.0100, L101.9900, L4600.0100 #### [facility] [address] [place], [address] IG% 0.300 Normal 0.0-0.9 [facility] Comment on above: Result Comment: IG% - Immature Granulocytes (promyelocytes, myelocytes and metamyelocytes) > 1% indicates that a LEFT SHIFT is Present. Performed By: #### L 505.7010, L3100.7950, L501.6710, L100.0100, L101.9900, L4600.0100 #### [facility] [address] [place], [address] Lymphocytes/100 WBC (Bld) 25.0 % Normal 19-41 [facility] Comment on above: Performed By: #### L 505.7010, L3100.7950, L501.6710, L100.0100, L101.9900, L4600.0100 #### [facility] [address] [facility] [place], [address] MCH (RBC) [Entitic mass] 29.0 pg Normal 27.0-32.0 [facility] Comment on above: Performed By: #### L 505.7010, L3100.7950, L501.6710, L100.0100, L101.9900, L4600.0100 #### [facility] [address] [facility] [place], [address] MCHC (RBC) [Mass/Vol] 31.3 g/dL Low 32-36 [facility] Comment on above: Performed By: #### L 505.7010, L3100.7950, L501.6710, L100.0100, L101.9900, L4600.0100 #### [facility] [address] [place], [address] MCV (RBC) [Entitic vol] 92.6 fL Normal 81-99 [facility] Comment on above: Performed By: #### L 505.7010, L3100.7950, L501.6710, L100.0100, L101.9900, L4600.0100 #### [facility] [address] [place], [address] Monocytes/100 WBC (Bld) 6.8 % Normal 0-10 [facility] Comment on above: Performed By: #### L 505.7010, L3100.7950, L501.6710, L100.0100, L101.9900, L4600.0100 #### [facility] [address] [place], [address] Neutrophils/100 WBC (Bld) 62.5 % Normal 47-70 [facility] Comment on above: Performed By: #### L 505.7010, L3100.7950, L501.6710, L100.0100, L101.9900, L4600.0100 #### [facility] [address] [place], [address] Nucleated RBC (Bld) [#/Vol] 0 10*3/uL Normal 0-5 [facility] Comment on above: Performed By: #### L 505.7010, L3100.7950, L501.6710, L100.0100, L101.9900, L4600.0100 #### [facility] [address] [place], [address] Platelet mean volume (Bld) [Entitic vol] 10.1 fL Normal 6.2-12.0 [facility] Comment on above: Performed By: #### L 505.7010, L3100.7950, L501.6710, L100.0100, L101.9900, L4600.0100 #### [facility] [address] [place], [address] Platelets (Bld) [#/Vol] 270 10*3/uL Normal 150-450 [facility] Comment on above: Performed By: #### L 505.7010, L3100.7950, L501.6710, L100.0100, L101.9900, L4600.0100 #### [facility] [address] [place], [address] RBC (Bld) [#/Vol] 3.90 10*6/uL Low 4.2-5.4 [facility] Comment on above: Performed By: #### L 505.7010, L3100.7950, L501.6710, L100.0100, L101.9900, L4600.0100 #### [facility] [address] [place], [address] RDW SD 48.5 fl High 35.1-43.9 [facility] Comment on above: Performed By: #### L 505.7010, L3100.7950, L501.6710, L100.0100, L101.9900, L4600.0100 #### [facility] [address] [place], [address] WBC (Bld) [#/Vol] 9.0 10*3/uL Normal 4.4-11.0 [facility] Comment on above: Performed By: #### L 505.7010, L3100.7950, L501.6710, L100.0100, L101.9900, L4600.0100 #### [facility] [address] [place], [address] CRPon 01-24-2024 C-REACTIVE PROT 7.01 mg/L High 0.0-3.0 [facility] Comment on above: Result Comment: C-Re active Protein (CRP) provides useful information for the diagnosis, therapy and monitoring of inflammatory processes and associated diseases. For the evaluation of Relative Risk for Cardiovascular Disease, a High Sensitivity CRP (HSCRP) should be ordered. Performed By: #### L 505.7010, L3100.7950, L501.6710, L100.0100, L101.9900, L4600.0100 #### [facility] [address] [place], [address] Erythrocyte Sed Rateon 01-23 SED RATE 26 mm/hr Normal 0-30 [facility] Comment on above: Performed By: #### L 505.7010, L3100.7950, L501.6710, L100.0100, L101.9900, L4600.0100 #### [facility] [address] [place], [address] Rheumatoid Factoron 01-24-20 24 RHEUMATOID FAC < 10.0 Normal <15 [facility] Comment on above: Performed By: #### L 505.7010, L3100.7950, L501.6710, L100.0100, L101.9900, L4600.0100 #### [facility] [address] [place], [address] CBC W/Diff, Automatedon 11-16 Absolute Lymph 1.92 X10 3/uL Normal 0.83-4.51 [facility] Comment on above: Performed By: #### L 100.0100, L501.04547, L501.9520, L506.0400 ####[facility] [address] [place], [address] Absolute Neut 5.3 X10 3/uL Normal 2.0-7.7 [facility] Comment on above: Performed By: #### L 100.0100, L501.85340, L501.9520, L506.0400 ####[facility] [address] [place], [address] Basophils/100 WBC (Bld) 0.5 % Normal 0-1 [facility] Comment on above: Performed By: #### L 100.0100, L501.19673, L501.9520, L506.0400 ####[facility] [address] [place], [address] Eosinophils/100 WBC (Bld) 2.8 % Normal 0-5 [facility] Comment on above: Performed By: #### L 100.0100, L501.64131, L501.9520, L506.0400 ####[facility] [address] [place], [address] Erythrocyte distribution width (RBC) [Ratio] 14.7 % High 11.6-14.6 [facility] Comment on above: Performed By: #### L 100.0100, L501.96556, L501.9520, L506.0400 ####[facility] [address] [place], [address] Hematocrit (Bld) [Volume fraction] 37.8 % Normal 37-47 [facility] Comment on above: Performed By: #### L 100.0100, L501.07071, L501.9520, L506.0400 ####[facility] [address] [place], [address] Hemoglobin (Bld) [Mass/Vol] 11.8 g/dL Low 12.0-15.0 [facility] Comment on above: Performed By: #### L 100.0100, L501.35996, L501.9520, L506.0400 ####[facility] [address] [place], [address] IG% 0.300 Normal 0.0-0.9 [facility] Comment on above: Result Comment: IG% - Immature Granulocytes (promyelocytes, myelocytes and metamyelocytes) > 1% indicates that a LEFT SHIFT is Present. Performed By: #### L 100.0100, L501.67594, L501.9520, L506.0400 ####[facility] [address] [place], [address] Lymphocytes/100 WBC (Bld) 24.2 % Normal 19-41 [facility] Comment on above: Performed By: #### L 100.0100, L501.33755, L501.9520, L506.0400 ####[facility] [address] [place], [address] MCH (RBC) [Entitic mass] 29.0 pg Normal 27.0-32.0 [facility] Comment on above: Performed By: #### L 100.0100, L501.21510, L501.9520, L506.0400 ####[facility] [address] [place], [address] MCHC (RBC) [Mass/Vol] 31.2 g/dL Low 32-36 [facility] Comment on above: Performed By: #### L 100.0100, L501.68454, L501.9520, L506.0400 ####[facility] [address] [place], [address] MCV (RBC) [Entitic vol] 92.9 fL Normal 81-99 [facility] Comment on above: Performed By: #### L 100.0100, L501.45847, L501.9520, L506.0400 ####[facility] [address] [place], [address] Monocytes/100 WBC (Bld) 5.4 % Normal 0-10 [facility] Comment on above: Performed By: #### L 100.0100, L501.76035, L501.9520, L506.0400 ####[facility] [address] [place], [address] Neutrophils/100 WBC (Bld) 66.8 % Normal 47-70 [facility] Comment on above: Performed By: #### L 100.0100, L501.81644, L501.9520, L506.0400 ####[facility] [address] [place], [address] Nucleated RBC (Bld) [#/Vol] 0 10*3/uL Normal 0-5 [facility] Comment on above: Performed By: #### L 100.0100, L501.46524, L501.9520, L506.0400 ####[facility] [address] [place], [address] Platelet mean volume (Bld) [Entitic vol] 10.6 fL Normal 6.2-12.0 [facility] Comment on above: Performed By: #### L 100.0100, L501.77979, L501.9520, L506.0400 ####[facility] [address] [place], [address] Platelets (Bld) [#/Vol] 310 10*3/uL Normal 150-450 [facility] Comment on above: Performed By: #### L 100.0100, L501.75028, L501.9520, L506.0400 ####[facility] [address] [place], [address] RBC (Bld) [#/Vol] 4.07 10*6/uL Low 4.2-5.4 [facility] Comment on above: Performed By: #### L 100.0100, L501.11941, L501.9520, L506.0400 ####[facility] [address] [place], [address] RDW SD 50.2 fl High 35.1-43.9 [facility] Comment on above: Performed By: #### L 100.0100, L501.52455, L501.9520, L506.0400 ####[facility] [address] [place], [address] WBC (Bld) [#/Vol] 8.0 10*3/uL Normal 4.4-11.0 [facility] Comment on above: Performed By: #### L 100.0100, L501.95070, L501.9520, L506.0400 ####[facility] [address] [place], [address] Free T3on 12-04-2023 Free T3 [Mass/Vol] 2.0 pg/mL Low 2.18-3.98 [facility] Comment on above: Performed By: #### L 100.0100, L501.13618, L501.9520, L506.0400 ####[facility] [address] [place], [address] T4 Free Directon 12-04-2023 T4 FREE DIRECT 1.05 ng/dL Normal 0.76-1.46 [facility] Comment on above: Performed By: #### L 100.0100, L501.85662, L501.9520, L506.0400 ####[facility] [address] [place], [address] Thyroid Stim Hormone (TSH)on 12-04-2023 TSH 0.85 uIU/mL Normal 0.358-3.74 [facility] Comment on above: Performed By: #### L 100.0100, L501.79388, L501.9520, L506.0400 ####[facility] [address] [place], [address] XR Cervical spine AP and Lat eral and obliqueon 08-20-2023 IMPRESSION: DEGENERATIVE CHANGE AND ALIGNMENT ABNORMALITIES DESCRIBED [employer] Advisor: CARMEL Transcribe Date/Time: Aug 20 2023 3:27P Dictated by : DARWIN SMITH MD This examination was interpreted and the report reviewed and electronically signed by: DARWIN SMITH MD on Aug 20 2023 3:29PM [facility] DIVISION OF RADIOLOGY * * *Final Report* * * DATE OF EXAM: Aug 20 2023 3:19PM WOX 5311 - XR CERVICAL 4V AP/LAT/OBL / PROCEDURE REASON: Neck pain * * * * Physician Interpretation * * * * Examination: XR CERVICAL 4V AP/LAT/OBL History: Neck pain Technique: XR CERVICAL 4V AP/LAT/OBL Comparison: None RESULT: Mild anterior position of C4 with respect to C5, C5 with respect to C6 ,and C6 with respect to C7. Likely chronic. No fracture or prevertebral swelling. Foraminal encroachment on the right at C3-4, and C4-5. Disc spaces are maintained. Mild spondylosis DIVISION OF RADIOLOGY [facility] * * *Final Report* * * DATE OF EXAM: Aug 20 2023 3:19PM WOX 5311 - XR CERVICAL 4V AP/LAT/OBL / PROCEDURE REASON: Neck pain * * * * Physician Interpretation * * * * Examination: XR CERVICAL 4V AP/LAT/OBL History: Neck pain Technique: XR CERVICAL 4V AP/LAT/OBL Comparison: None RESULT: Mild anterior position of C4 with respect to C5, C5 with respect to C6 ,and C6 with respect to C7. Likely chronic. No fracture or prevertebral swelling. Foraminal encroachment on the right at C3-4, and C4-5. Disc spaces are maintained. Mild spondylosis IMPRESSION IMPRESSION: DEGENERATIVE CHANGE AND ALIGNMENT ABNORMALITIES DESCRIBED [employer] Advisor: CARMEL Transcribe Date/Time: Aug 20 2023 3:27P Dictated by : DARWIN SMITH MD This examination was interpreted and the report reviewed and electronically signed by: DARWIN SMITH MD on Aug 20 2023 3:29PM EST [facility] Radiology Study observation (narrative) [facility] XR Cervical spine AP and Lat eral and obliqueOrdered By: [facility] Provider on 08-20-2023 [facility] XR Finger - left AP and Late ral and obliqueon 07-31-2023 IMPRESSION: No acute osseous abnormality is identified [employer] Advisor: PSCKeyanna Transcribe Date/Time: Jul 31 2023 7:59P Dictated by : KAYLA LAU MD This examination was interpreted and the report reviewed and electronically signed by: KAYLA LAU MD on Jul 31 2023 8:01PM [facility] DIVISION OF RADIOLOGY * * *Final Report* * * DATE OF EXAM: Jul 31 2023 7:36PM WOX [id number] - XR DIGIT 3V FRONTAL/LAT/OBL LT / PROCEDURE REASON: Finger injury, left, initial encounter * * * * Physician Interpretation * * * * EXAMINATION: XR DIGIT 3V FRONTAL/LAT/OBL LT CLINICAL HISTORY: Left small finger pain at the IP joint after making soap yesterday. Finger injury, left, initial encounter Technique: XR DIGIT 3V FRONTAL/LAT/OBL LT -- LEFT 5th FINGER with 3 views on 3 images Comparison: NONE Result: There is no evidence of fracture or dislocation. No radiopaque foreign body is identified. Joint spaces appear unremarkable. DIVISION OF RADIOLOGY Provider, [facility] - 07/31/2023 * * *Final Report* * * DATE OF EXAM: Jul 31 2023 7:36PM WOX [id number] - XR DIGIT 3V FRONTAL/LAT/OBL LT / PROCEDURE REASON: Finger injury, left, initial encounter * * * * Physician Interpretation * * * * EXAMINATION: XR DIGIT 3V FRONTAL/LAT/OBL LT CLINICAL HISTORY: Left small finger pain at the IP joint after making soap yesterday. Finger injury, left, initial encounter Technique: XR DIGIT 3V FRONTAL/LAT/OBL LT -- LEFT 5th FINGER with 3 views on 3 images Comparison: NONE Result: There is no evidence of fracture or dislocation. No radiopaque foreign body is identified. Joint spaces appear unremarkable. IMPRESSION IMPRESSION: No acute osseous abnormality is identified [employer] Advisor: CARMEL Transcribe Date/Time: Jul 31 2023 7:59P Dictated by : KAYLA LAU MD This examination was interpreted and the report reviewed and electronically signed by: KAYLA LAU MD on Jul 31 2023 8:01PM [facility] Radiology Study observation (narrative) [facility] XR Finger - left AP and Late ral and obliqueOrdered By: Ccf Provider on 07-31-2023 [facility] .GFRon 04-07-2023 GFR 71 ml/min/1.73sqm Normal [facility] ([place]) Comment on above: Result Comment: GFR Population mean for , Non- Americans Ages 20-29 = 116 mL/min/1.73 sq.m. Ages 30-39 = 107 mL/min/1.73 sq.m. Ages 40-49 = 99 mL/min/1.73 sq.m. Ages 50-59 = 93 mL/min/1.73 sq.m. Ages 60-69 = 85 mL/min/1.73 sq.m. Ages 70+ = 75 mL/min/1.73 sq.m. Chronic Kidney Disease: Less than 60 mL/min/1.73 square meters End Stage Renal Disease: Less than 15 mL/min/1.73 square meters Performed By: #### B MP, TSH, FT3, GFR, FT4 #### Monika [address] [address] GFR Non- 59 ml/min/1.73sqm Normal [facility] ([place]) Comment on above: Result Comment: GFR Population mean for , Non- Americans Ages 20-29 = 116 mL/min/1.73 sq.m. Ages 30-39 = 107 mL/min/1.73 sq.m. Ages 40-49 = 99 mL/min/1.73 sq.m. Ages 50-59 = 93 mL/min/1.73 sq.m. Ages 60-69 = 85 mL/min/1.73 sq.m. Ages 70+ = 75 mL/min/1.73 sq.m. Chronic Kidney Disease: Less than 60 mL/min/1.73 square meters End Stage Renal Disease: Less than 15 mL/min/1.73 square meters Performed By: #### B MP, TSH, FT3, GFR, FT4 #### Monika [address] [address] BMPon 04-07-2023 BUN/Creatinine Ratio 11 ratio Normal 7-27 [facility] ([place]) Comment on above: Performed By: #### B MP, TSH, FT3, GFR, FT4 #### [address] [address] Calcium [Mass/Vol] 9.7 mg/dL Normal 8.4-10.2 [facility] ([place]) Comment on above: Performed By: #### B MP, TSH, FT3, GFR, FT4 #### [address] [address] Chloride [Moles/Vol] 101 mmol/L Normal 98-107 [facility] ([place]) Comment on above: Performed By: #### B MP, TSH, FT3, GFR, FT4 #### [place] [address] CO2 [Moles/Vol] 28 mmol/L Normal 22-29 [facility] ([place]) Comment on above: Performed By: #### B MP, TSH, FT3, GFR, FT4 #### [place] [id number] Creatinine [Mass/Vol] 1.00 mg/dL Normal 0.55-1.02 [facility] ([place]) Comment on above: Performed By: #### B MP, TSH, FT3, GFR, FT4 #### [place] [address] Electrolyte Balance 12.0 mEq/L Normal 4.0-15.0 [facility] ([place]) Comment on above: Performed By: #### B MP, TSH, FT3, GFR, FT4 #### [address] [address] Glucose [Mass/Vol] 106 mg/dL High 70-105 [facility] ([place]) Comment on above: Performed By: #### B MP, TSH, FT3, GFR, FT4 #### [place] [address] Potassium [Moles/Vol] 3.9 mmol/L Normal 3.5-5.1 [facility] ([place]) Comment on above: Performed By: #### B MP, TSH, FT3, GFR, FT4 #### [place] [address] Sodium [Moles/Vol] 141 mmol/L Normal 136-145 [facility] ([place]) Comment on above: Performed By: #### B MP, TSH, FT3, GFR, FT4 #### [address] [address] Urea nitrogen [Mass/Vol] 11 mg/dL Normal 7-18 [facility] ([place]) Comment on above: Performed By: #### B MP, TSH, FT3, GFR, FT4 #### [place] [address] [place], [place] [address] FT3on 04-07-2023 Free T3 [Mass/Vol] 2.17 pg/mL Low 2.30-4.00 [facility] ([place]) Comment on above: Performed By: #### B MP, TSH, FT3, GFR, FT4 #### [address] [address] FT4on 04-07-2023 Free T4 [Mass/Vol] 1.28 ng/dL Normal 0.76-1.46 [facility] ([place]) Comment on above: Performed By: #### B MP, TSH, FT3, GFR, FT4 #### [address] [address] LABORATORYOrdered By: SYSTEM SYSTEM on 04-07-2023 Calcium [Mass/Vol] 9.7 mg/dL Invalid Interpretation Code 8.4 - 10.2 mg/dL AO ADM SS Chloride [Moles/Vol] 101 mmol/L Invalid Interpretation Code 98 - 107 mmol/L AO ADM SS CO2 [Moles/Vol] 28 mmol/L Invalid Interpretation Code 22 - 29 mmol/L AO ADM SS Creatinine [Mass/Vol] 1.00 mg/dL Invalid Interpretation Code 0.55 - 1.02 mg/dL AO ADM SS Electrolyte Balance 12.0 mEq/L Invalid Interpretation Code 4.0 - 15.0 mEq/L AO ADM SS Free T3 [Mass/Vol] 2.17 pg/mL Invalid Interpretation Code 2.30 - 4.00 pg/mL AO ADM SS Free T4 [Mass/Vol] 1.28 ng/dL Invalid Interpretation Code 0.76 - 1.46 ng/dL AO ADM SS GFR/1.73 sq M.predicted among blacks MDRD (S/P/Bld) [Vol rate/Area] 71 ml/min/1.73sqm Invalid Interpretation Code AO Chemistry S Comment on above: Interpretive Data: GFR Population mean for , Non- Americans Ages 20-29 = 116 mL/min/1.73 sq.m. Ages 30-39 = 107 mL/min/1.73 sq.m. Ages 40-49 = 99 mL/min/1.73 sq.m. Ages 50-59 = 93 mL/min/1.73 sq.m. Ages 60-69 = 85 mL/min/1.73 sq.m. Ages 70+ = 75 mL/min/1.73 sq.m. Chronic Kidney Disease: Less than 60 mL/min/1.73 square meters End Stage Renal Disease: Less than 15 mL/min/1.73 square meters GFR/1.73 sq M.predicted among non-blacks MDRD (S/P/Bld) [Vol rate/Area] 59 ml/min/1.73sqm Invalid Interpretation Code AO Chemistry S Comment on above: Interpretive Data: GFR Population mean for , Non- Americans Ages 20-29 = 116 mL/min/1.73 sq.m. Ages 30-39 = 107 mL/min/1.73 sq.m. Ages 40-49 = 99 mL/min/1.73 sq.m. Ages 50-59 = 93 mL/min/1.73 sq.m. Ages 60-69 = 85 mL/min/1.73 sq.m. Ages 70+ = 75 mL/min/1.73 sq.m. Chronic Kidney Disease: Less than 60 mL/min/1.73 square meters End Stage Renal Disease: Less than 15 mL/min/1.73 square meters Glucose [Mass/Vol] 106 mg/dL Invalid Interpretation Code 70 - 105 mg/dL AO ADM SS Potassium [Moles/Vol] 3.9 mmol/L Invalid Interpretation Code 3.5 - 5.1 mmol/L AO ADM SS Sodium [Moles/Vol] 141 mmol/L Invalid Interpretation Code 136 - 145 mmol/L AO ADM SS TSH Qn 6.37 m[IU]/L Invalid Interpretation Code 0.36 - 3.74 mcIU/mL AO ADM SS Urea nitrogen [Mass/Vol] 11 mg/dL Invalid Interpretation Code 7 - 18 mg/dL AO ADM SS Urea nitrogen/Creatinine [Mass ratio] 11 ratio Invalid Interpretation Code 7 - 27 ratio AO ADM SS TSHon 04-07-2023 TSH Qn 6.37 m[IU]/L High 0.36-3.74 [facility] ([place]) Comment on above: Performed By: #### B MP, TSH, FT3, GFR, FT4 #### [place] [address] [place], [place] [address] Basophil percentageOrdered B y: Dipak Kirkpatrick on 01-03-2023 Chloride [Moles/Vol] 106 mmol/L 98-107 [facility] Glucose [Mass/Vol] 98 mg/dL 74-106 [facility] [place] [facility] Potassium [Moles/Vol] 3.8 mmol/L 3.5-5.1 [facility] Sodium [Moles/Vol] 139 mmol/L 136-145 [facility] [place] [facility] Laboratory - Chemistry and C hemistry - challengeOrdered By: Dipak Kirkpatrick on 01-03-2023 CO2 [Moles/Vol] 26.0 mmol/L 21.0-32.0 [facility] Urea nitrogen/Creatinine [Mass ratio] 13.3 mg/mg 10-20 [facility] No Panel InformationOrdered By: Dipak Kirkpatrick on 01-03-2023 Estimated Creatinine Clearance Calc 69.99 ml/min [facility] Estimated GFR (MDRD) Amer 78 mL/min >60 [facility] Comment on above: GFR Calc Estimated GFR (MDRD) Non-Af Amer 64 mL/min >60 [facility] Comment on above: Non- GFR Calc Thyroid Stimulating Hormone (TSH) 1.09 uIU/mL 0.358-3.74 [facility] Serum or plasma calcium naz urement (mass/volume)Ordered By: Dipak Kirkpatrick on 01-03-2023 Calcium [Mass/Vol] 9.4 mg/dL 8.5-10.1 [facility] [place] [facility] Serum or plasma creatinine m easurement (mass/volume)Ordered By: Dipak Kirkpatrick on 01-03-2023 Creatinine [Mass/Vol] 0.97 mg/dL 0.55-1.02 [facility] Comment on above: The validity of the calculated GFR & GFRAA in patients over 70 years has not been determined. Clinical correlation is essential. Serum or plasma urea nitroge n measurement (mass/volume)Ordered By: Dipak Kirkpatrick on 01-03-2023 Urea nitrogen [Mass/Vol] 13 mg/dL 7-18 [facility] Thin prep Papanicolaou smear with manual screeningOrdered By: Dipak Kirkpatrick on 01-03-2023 Thin prep Papanicolaou smear with manual screening 7 5-15 [facility] Basophil percentageOrdered B y: Dipak Kirkpatrick on 12-17-2022 Chloride [Moles/Vol] 106 mmol/L 98-107 [facility] Glucose [Mass/Vol] 92 mg/dL 74-106 [facility] [place] [facility] Potassium [Moles/Vol] 3.5 mmol/L 3.5-5.1 [facility] Sodium [Moles/Vol] 138 mmol/L 136-145 [facility] [place] [facility] Laboratory - Chemistry and C hemistry - challengeOrdered By: Dipak Kirkpatrick on 12-17-2022 CO2 [Moles/Vol] 29.0 mmol/L 21.0-32.0 [facility] Urea nitrogen/Creatinine [Mass ratio] 9.3 mg/mg 10-20 [facility] No Panel InformationOrdered By: Dipak Kirkpatrick on 12-17-2022 Estimated Creatinine Clearance Calc 62.44 ml/min [facility] Estimated GFR (MDRD) Amer 78 mL/min >60 [facility] Comment on above: GFR Calc Estimated GFR (MDRD) Non-Af Amer 64 mL/min >60 [facility] Comment on above: Non- GFR Calc Thyroid Stimulating Hormone (TSH) 3.27 uIU/mL 0.358-3.74 [facility] Serum or plasma calcium naz urement (mass/volume)Ordered By: Dipak Kirkpatrick on 12-17-2022 Calcium [Mass/Vol] 9.6 mg/dL 8.5-10.1 [facility] [place] [facility] Serum or plasma creatinine m easurement (mass/volume)Ordered By: Dipak Kirkpatrick on 12-17-2022 Creatinine [Mass/Vol] 0.97 mg/dL 0.55-1.02 [facility] Comment on above: The validity of the calculated GFR & GFRAA in patients over 70 years has not been determined. Clinical correlation is essential. Serum or plasma urea nitroge n measurement (mass/volume)Ordered By: Dipak Kirkpatrick on 12-17-2022 Urea nitrogen [Mass/Vol] 9 mg/dL 7-18 [facility] Thin prep Papanicolaou smear with manual screeningOrdered By: Dipak Kirkpatrick on 12-17-2022 Thin prep Papanicolaou smear with manual screening 3 5-15 [facility] Absolute lymphocyte countOrd ered By: Rodolfo Gonzales on 12-11-2022 Lymphocytes Auto (Unsp spec) [#/Vol] 2.38 10*3/uL 0.83-4.51 [facility] Basophil percentageOrdered B y: Rodolfo Gonzales on 12-11-2022 Basophils/100 WBC (Bld) 0.4 % 0-1 [facility] Chloride [Moles/Vol] 110 mmol/L 98-107 [facility] Eosinophils/100 WBC (Bld) 0.8 % 0-5 [facility] Glucose [Mass/Vol] 103 mg/dL 74-106 [facility] [place] [facility] Comment on above: Fasting Glucose resu lt from 100 to 125 mg/dL suggests IMPAIRED HOMEOSTASIS per A.D.A. criteria. Neutrophils (Bld) [#/Vol] 5.8 10*3/uL 2.0-7.7 [facility] Neutrophils/100 WBC (Bld) 64.7 % 47-70 [facility] Potassium [Moles/Vol] 3.5 mmol/L 3.5-5.1 [facility] Sodium [Moles/Vol] 142 mmol/L 136-145 [facility] [place] [facility] WBC (Bld) [#/Vol] 8.9 10*3/uL 4.4-11.0 [facility] [place] [facility] Blood erythrocytes count (nu mber/volume)Ordered By: Rodolfo Gonzales on 12-11-2022 RBC (Bld) [#/Vol] 4.48 10*6/uL 4.2-5.4 [facility] Blood hemoglobin measurement (mass/volume)Ordered By: Rodolfo Gonzales on 12-11-2022 Hemoglobin (Bld) [Mass/Vol] 13.4 g/dL 12.0-15.0 [facility] Blood lymphocytes/100 leukoc ytesOrdered By: Rodolfo Gonzales on 12-11-2022 Lymphocytes/100 WBC (Bld) 26.7 % 19-41 [facility] Blood monocytes/100 leukocyt esOrdered By: Rodolfo Gonzales on 12-11-2022 Monocytes/100 WBC (Bld) 7.1 % 0-10 [facility] Blood platelet mean volumeOr dered By: Rodolfo Gonzales on 12-11-2022 Platelet mean volume (Bld) [Entitic vol] 10.0 fL 6.2-12.0 [facility] Determination of erythrocyte mean corpuscular volume (MCV)Ordered By: Rodolfo Gonzales on 12-11-2022 MCV (RBC) [Entitic vol] 91.7 fL 81-99 [facility] Hematocrit Auto (Bld) [Volum e fraction]Ordered By: Rodolfo Gonzales on 12-11-2022 Hematocrit (Bld) [Volume fraction] 41.1 % 37-47 [facility] Laboratory - Chemistry and C hemistry - challengeOrdered By: Rodolfo Gonzales on 12-11-2022 CO2 [Moles/Vol] 23.0 mmol/L 21.0-32.0 [facility] Magnesium [Mass/Vol] 2.1 mg/dL 1.6-2.6 [facility] Urea nitrogen/Creatinine [Mass ratio] 11.4 mg/mg 10-20 [facility] Laboratory - Hematology and Cell countsOrdered By: Rodolfo Gonzales on 12-11-2022 Erythrocyte distribution width (RBC) [Entitic vol] 45.6 fL 35.1-43.9 [facility] Erythrocyte distribution width (RBC) [Ratio] 13.5 % 11.6-14.6 [facility] Immature granulocytes/100 WBC (Bld) 0.300 % 0.0-0.9 [facility] Comment on above: IG% - Immature Granu locytes (promyelocytes, myelocytes and metamyelocytes) > 1% indicates that a LEFT SHIFT is Present. MCH (RBC) [Entitic mass] 29.9 pg 27.0-32.0 [facility] Nucleated RBC/100 WBC (Bld) [Ratio] 0 % 0-5 [facility] Auto (RBC) [Mass/Vol]Or dered By: Rodolfo Gonzales on 12-11-2022 MCHC (RBC) [Mass/Vol] 32.6 g/dL 32-36 [facility] No Panel InformationOrdered By: Rodolfo Gonzales on 12-11-2022 Estimated Creatinine Clearance Calc 70.72 ml/min [facility] Estimated GFR (MDRD) Amer 79 mL/min >60 [facility] Comment on above: GFR Calc Estimated GFR (MDRD) Non-Af Amer 65 mL/min >60 [facility] Comment on above: Non- GFR Calc Thyroid Stimulating Hormone (TSH) 7.34 uIU/mL 0.358-3.74 [facility] Platelets bldOrdered By: Gerald Gonzales on 12-11-2022 Platelets (Bld) [#/Vol] 273 10*3/uL 150-450 [facility] Serum or plasma calcium naz urement (mass/volume)Ordered By: Rodolfo Gonzales on 12-11-2022 Calcium [Mass/Vol] 9.7 mg/dL 8.5-10.1 [facility] [place] [facility] Serum or plasma creatinine m easurement (mass/volume)Ordered By: Rodolfo Gonzales on 12-11-2022 Creatinine [Mass/Vol] 0.96 mg/dL 0.55-1.02 [facility] Comment on above: The validity of the calculated GFR & GFRAA in patients over 70 years has not been determined. Clinical correlation is essential. Serum or plasma urea nitroge n measurement (mass/volume)Ordered By: Rodolfo Gonzales on 12-11-2022 Urea nitrogen [Mass/Vol] 11 mg/dL 7-18 [facility] Thin prep Papanicolaou smear with manual screeningOrdered By: Rodolfo Gonzales on 12-11-2022 Thin prep Papanicolaou smear with manual screening 9 5-15 [facility] Fungus cultureOrdered By: Dr Virginia Eckert on 11-09-2022 Fungus identified Cx Nom (Unsp spec) [facility] Fungus stainOrdered By: Dr. Eckert on 11-09-2022 Fungus identified Fungus stain Nom (Unsp spec) [facility] Basophil percentageOrdered B y: Dr. Coronado on 10-27-2022 Bilirubin [Mass/Vol] 0.40 mg/dL 0.20-1.00 [facility] Comment on above: For patients on eltr ombopag therapy, use of Dimension [place] TBIL is not recommended. Chloride [Moles/Vol] 108 mmol/L 98-107 [facility] Glucose [Mass/Vol] 97 mg/dL 74-106 [facility] [place] [facility] Potassium [Moles/Vol] 3.6 mmol/L 3.5-5.1 [facility] Protein [Mass/Vol] 8.1 g/dL 6.4-8.2 [facility] [place] [facility] Sodium [Moles/Vol] 141 mmol/L 136-145 [facility] [place] [facility] WBC (Bld) [#/Vol] 7.2 10*3/uL 4.4-11.0 [facility] [place] [facility] Blood erythrocytes count (nu mber/volume)Ordered By: Dr. Coronado on 10-27-2022 RBC (Bld) [#/Vol] 4.23 10*6/uL 4.2-5.4 [facility] Blood hemoglobin measurement (mass/volume)Ordered By: Dr. Coronado on 10-27-2022 Hemoglobin (Bld) [Mass/Vol] 12.9 g/dL 12.0-15.0 [facility] Blood platelet mean volumeOr dered By: Dr. Coronado on 10-27-2022 Platelet mean volume (Bld) [Entitic vol] 9.7 fL 6.2-12.0 [facility] Determination of erythrocyte mean corpuscular volume (MCV)Ordered By: Dr. Coronado on 10-27-2022 MCV (RBC) [Entitic vol] 94.1 fL 81-99 [facility] Hematocrit Auto (Bld) [Volum e fraction]Ordered By: Dr. Coronado on 10-27-2022 Hematocrit (Bld) [Volume fraction] 39.8 % 37-47 [facility] Laboratory - Chemistry and C hemistry - challengeOrdered By: Dr. Coronado on 10-27-2022 ALP [Catalytic activity/Vol] 104 U/L 45-117 [facility] ALT [Catalytic activity/Vol] 59 U/L 13-56 [facility] CO2 [Moles/Vol] 25.0 mmol/L 21.0-32.0 [facility] Globulin (S) [Mass/Vol] 4.2 g/dL 2.2-4.2 [facility] Urea nitrogen/Creatinine [Mass ratio] 5.4 mg/mg 10-20 [facility] Laboratory - Hematology and Cell countsOrdered By: Dr. Coronado on 10-27-2022 Erythrocyte distribution width (RBC) [Entitic vol] 44.6 fL 35.1-43.9 [facility] Erythrocyte distribution width (RBC) [Ratio] 13.2 % 11.6-14.6 [facility] MCH (RBC) [Entitic mass] 30.5 pg 27.0-32.0 [facility] MCHC Auto (RBC) [Mass/Vol]Or dered By: Dr. Coronado on 10-27-2022 MCHC (RBC) [Mass/Vol] 32.4 g/dL 32-36 [facility] No Panel InformationOrdered By: Dr. Coronado on 10-27-2022 Estimated Creatinine Clearance Calc 73.80 ml/min [facility] Estimated GFR (MDRD) Amer 83 mL/min >60 [facility] Comment on above: GFR Calc Estimated GFR (MDRD) Non-Af Amer 69 mL/min >60 [facility] Comment on above: Non- GFR Calc Thyroid Stimulating Hormone (TSH) 0.73 uIU/mL 0.358-3.74 [facility] Troponin I High Sensitivity 16 pg/mL 3.0-54.0 [facility] Comment on above: Please Note: New [place] t Units and Gender Specific Reference Ranges. For more information see Policy Stat Procedure [place] High Sensitivity Troponin (TNIH) and attachments. Platelets bldOrdered By: Dr. Coronado on 10-27-2022 Platelets (Bld) [#/Vol] 247 10*3/uL 150-450 [facility] Serum or plasma albumin naz urement (mass/volume)Ordered By: Dr. Coronado on 10-27-2022 Albumin [Mass/Vol] 3.9 g/dL 3.2-5.0 [facility] [place] [facility] Serum or plasma albumin/glob ulin mass ratioOrdered By: Dr. Coronado on 10-27-2022 Albumin/Globulin [Mass ratio] 0.9 {ratio} 0.9-2.4 [facility] Serum or plasma calcium naz urement (mass/volume)Ordered By: Dr. Coronado on 10-27-2022 Calcium [Mass/Vol] 9.8 mg/dL 8.5-10.1 [facility] [place] [facility] Serum or plasma creatinine m easurement (mass/volume)Ordered By: Dr. Coronado on 10-27-2022 Creatinine [Mass/Vol] 0.92 mg/dL 0.55-1.02 [facility] Comment on above: The validity of the calculated GFR & GFRAA in patients over 70 years has not been determined. Clinical correlation is essential. Serum or plasma urea nitroge n measurement (mass/volume)Ordered By: Dr. Coronado on 10-27-2022 Urea nitrogen [Mass/Vol] 5 mg/dL 7-18 [facility] Thin prep Papanicolaou smear with manual screeningOrdered By: Dr. Coronado on 10-27-2022 Thin prep Papanicolaou smear with manual screening 45 U/L 15-37 [facility] Thin prep Papanicolaou smear with manual screening 8 5-15 [facility] Anaerobic cultureOrdered By: Dr. Eckert on 10-12-2022 Bacteria identified Anaer cx Nom (Unsp spec) No growth in 5 days. [facility] Routine wound cultureOrdered By: Dr. Eckert on 10-08-2022 Bacteria identified Cx Nom (Wound) No growth aerobically. [facility] Gram stain for investigation of transfusion reactionOrdered By: Dr. Eckert on 10-07-2022 Microscopic observation Gram stain Nom (Unsp spec) [facility] Fungus cultureOrdered By: Fred Eckert on 10-06-2022 Fungus identified Cx Nom (Unsp spec) [facility] Fungus stainOrdered By: Trever Eckert on 10-06-2022 Fungus identified Fungus stain Nom (Unsp spec) [facility] Glucose Glucometer (BldC) [M ass/Vol]Ordered By: Dr. Eckert on 10-06-2022 Glucose [Mass/Vol] 86 mg/dL 74-106 [facility] [place] [facility] Comment on above: MANAGEMENT OF PATIEN T CARE PER NURSING PROTOCOL Laboratory - Chemistry and C hemistry - challengeOrdered By: Dr. Michael on 10-03-2022 Magnesium [Mass/Vol] 2.0 mg/dL 1.6-2.6 [facility] Laboratory - Chemistry and C hemistry - challengeOrdered By: Dr. Schneider on 08-17-2022 Free T4 [Mass/Vol] 0.91 ng/dL 0.76-1.46 [facility] [place] [facility] No Panel InformationOrdered By: Dr. Schneider on 08-17-2022 Thyroid Stimulating Hormone (TSH) 12.00 uIU/mL 0.358-3.74 [facility] Laboratory - Chemistry and C hemistry - challengeOrdered By: Dr. Scnheider on 06-30-2022 Free T4 [Mass/Vol] 0.75 ng/dL 0.76-1.46 [facility] [place] [facility] No Panel InformationOrdered By: Dr. Schneider on 06-30-2022 Thyroglobulin Antibody < 1.0 IU/mL 0.0-0.9 [facility] Comment on above: Thyroglobulin Antibo dy measured by Torin [employer] Thyroid Stimulating Hormone (TSH) 23.30 uIU/mL 0.358-3.74 [facility] Serum or plasma thyroperoxid ase antibody assay (units/volume)Ordered By: Dr. Schneider on 06-30-2022 TPO Ab Qn 556 [IU]/mL 0-34 [facility] Comment on above: Performed at: [address] Director: Juan C Neff PhD, Phone: [phone] LABORATORYOrdered By: Maribell Gardner on 06-20-2022 Basophil, Absolute 0.1 103/mcL Invalid Interpretation Code 0.0 - 0.2 10^3/mcL AO Workflow SS Basophils/100 WBC (Bld) 1.6 % Invalid Interpretation Code 0.0 - 2.5 % AO Workflow SS Eosinophil, Absolute 0.2 103/mcL Invalid Interpretation Code 0.0 - 0.4 10^3/mcL AO Workflow SS Eosinophils/100 WBC (Bld) 3.4 % Invalid Interpretation Code 0.0 - 7.0 % AO Workflow SS Erythrocyte distribution width (RBC) [Ratio] 15.6 % Invalid Interpretation Code 11.5 - 14.5 % AO Workflow SS Hematocrit (Bld) [Volume fraction] 38.1 % Invalid Interpretation Code 37.0 - 47.0 % AO Workflow SS Hemoglobin (Bld) [Mass/Vol] 12.9 G/dL Invalid Interpretation Code 12.0 - 16.0 G/dL AO Workflow SS Lymphocyte, Absolute 1.7 103/mcL Invalid Interpretation Code 0.8 - 3.9 10^3/mcL AO Workflow SS Lymphocytes/100 WBC (Bld) 28.1 % Invalid Interpretation Code 10.0 - 50.0 % AO Workflow SS MCH (RBC) [Entitic mass] 30.5 pg Invalid Interpretation Code 27.0 - 31.2 pg AO Workflow SS MCHC 33.9 G/dL Invalid Interpretation Code 33.0 - 37.0 G/dL AO Workflow SS MCV (RBC) [Entitic vol] 89.8 fL Invalid Interpretation Code 80.0 - 94.0 fL AO Workflow SS Monocyte distribution width Auto (Bld) [Entitic vol] 16.05 Invalid Interpretation Code 0.00 - 20.00 AO Workflow SS Comment on above: Result Comment: For ED adult patients suspected of sepsis, MDW<=20.0 does not rule out sepsis or risk of sepsis Monocyte, Absolute 0.3 103/mcL Invalid Interpretation Code 0.2 - 1.0 10^3/mcL AO Workflow SS Monocytes/100 WBC (Bld) 5.5 % Invalid Interpretation Code 1.7 - 13.0 % AO Workflow SS Neutrophil, Absolute 3.6 103/mcL Invalid Interpretation Code 2.9 - 6.2 10^3/mcL AO Workflow SS Neutrophils/100 WBC (Bld) 61.4 % Invalid Interpretation Code 37.0 - 80.0 % AO Workflow SS Platelet mean volume (Bld) [Entitic vol] 8.0 fL Invalid Interpretation Code 7.4 - 10.4 fL AO Workflow SS Platelets (Bld) [#/Vol] 248 103/mcL Invalid Interpretation Code 130 - 400 10^3/mcL AO Workflow SS RBC (Bld) [#/Vol] 4.24 106/mcL Invalid Interpretation Code 4.20 - 5.40 10^6/mcL AO Workflow SS WBC (Bld) [#/Vol] 5.9 103/mcL Invalid Interpretation Code 4.6 - 10.8 10^3/mcL AO Workflow SS LABORATORYOrdered By: SYSTEM SYSTEM on 06-20-2022 Calcium [Mass/Vol] 9.8 mg/dL Invalid Interpretation Code 8.4 - 10.2 mg/dL AO ADM SS Chloride [Moles/Vol] 104 mmol/L Invalid Interpretation Code 98 - 107 mmol/L AO ADM SS CO2 [Moles/Vol] 30 mmol/L Invalid Interpretation Code 22 - 29 mmol/L AO ADM SS Creatinine [Mass/Vol] 0.92 mg/dL Invalid Interpretation Code 0.55 - 1.02 mg/dL AO ADM SS Electrolyte Balance 7.0 mEq/L Invalid Interpretation Code 4.0 - 15.0 mEq/L AO ADM SS GFR 79 ml/min/1.73sqm Invalid Interpretation Code AO Chemistry S GFR Non- 65 ml/min/1.73sqm Invalid Interpretation Code AO Chemistry S Glucose [Mass/Vol] 95 mg/dL Invalid Interpretation Code 70 - 105 mg/dL AO ADM SS Potassium [Moles/Vol] 4.1 mmol/L Invalid Interpretation Code 3.5 - 5.1 mmol/L AO ADM SS Sodium [Moles/Vol] 141 mmol/L Invalid Interpretation Code 136 - 145 mmol/L AO ADM SS Troponin I.cardiac DL <= 0.01 ng/mL [Mass/Vol] 15.0 ng/L Invalid Interpretation Code 0.0 - 51.4 ng/L AO ADM SS TSH Qn 30.20 m[IU]/L Invalid Interpretation Code 0.36 - 3.74 mcIU/mL AO ADM SS Urea nitrogen [Mass/Vol] 11 mg/dL Invalid Interpretation Code 7 - 18 mg/dL AO ADM SS Urea nitrogen/Creatinine [Mass ratio] 12 ratio Invalid Interpretation Code 7 - 27 ratio AO ADM SS EMERGENCY REPORTon 2 EMERGENCY REPORT [facility] EM[facility]Y RO[facility] REPORT NAME ACCOUNT SEX AGE ADMIT DISCHARGE PT MED. RECORD# NUMBER DATE DATE TYPE LUAN, [id number] F 51 05/15/22 05/15/22 3 HELEN Viramontes [id number] ROOM: ER DATE OF : 1970 DICTATING PHYSICIAN: Christopher Ruiz HISTORY OF PRESENT ILLNESS: The patient came in complaining of abdominal pain. She has had generalized abdominal pain. She has had these abdominal pains for 4 years, and she said recently it is getting worse, and she presents to the emergency department. She says it is a 7 out of 10. It is a constant sharp pain. Nothing makes it better. She said she has been having normal bowel movements. She does take medicines for bowel movements. She did have some nausea. PAST MEDICAL HISTORY: She does have a history of some anxiety and depression and also hypertension and thyroid. PAST SURGICAL HISTORY: She had a cholecystectomy, hysterectomy. SOCIAL HISTORY: She does not smoke or drink. REVIEW OF SYSTEMS: Ten systems reviewed and negative except as mentioned above. PHYSICAL EXAMINATION: GENERAL: She is an awake, alert, and oriented female in no acute distress. HEENT: Head is normocephalic and atraumatic. Eyes: Pupils are equal, round, and reactive to light. Extraocular muscles are intact. Nares are patent. Throat has adequate oral moisture. Uvula is midline. NECK: Neck is supple without petechiae or rash. HEART: Heart is regular rate and rhythm without murmur. S1 equals S2. No S3 or S4 appreciated. LUNGS: Lungs are clear to auscultation bilaterally. No rales, rhonchi, or retractions. ABDOMEN: Abdomen is soft, nontender, and nondistended. SKIN: Skin is warm and dry. DIAGNOSTIC DATA: She had blood work obtained. White counts is 7000, H&H 13 and 40. Chemistries are unremarkable. Urinalysis is unremarkable. CT was unremarkable other than moderate stool burden. EMERGENCY DEPARTMENT COURSE AND TREATMENT/PLAN/DISPOSITION: She will be discharged in stable condition. She was told to return if any problems or concerns. DIAGNOSES: Page 1 of 2 HELEN ROLAND Emergency Room Report HELEN ROLAND : 1970 1. Abdominal pain, cause not clear. 2. Stool burden. Dictated By: Christopher Ruiz DO 05/15/22 20:13 JOB #: [id number] Transcribed By: am 05/16/22 13:24 Electronically signed by: DIANA Ruiz DO 05/17/22 07:46 Page 2 of 2 HELEN ROLAND Emergency Room Report Normal [facility] CBC + DIFFon 05-15-2022 Baso # 0.10 x10EE3/UL Normal 0.00 - 0.[address] [facility] Comment on above: Performed By: #### 2 11900 #### [facility],[address] [place] [address] Basophils/100 WBC (Bld) 0.6 % Normal 0.0 - 2.[address] [facility] Comment on above: Performed By: #### 2 41943 #### [facility],[address] [place] [address] CBC + DIFF Normal [facility] Comment on above: Result Comment: CBC- COMPLETE BLOOD COUNT Performed By: #### 2 95274 #### [facility],[address] [place] [address] EO # 0.20 x10EE3/UL Normal 0.00 - 0.[address] [facility] Comment on above: Performed By: #### 2 04356 #### [facility],[address] [place], [place] [id number] Eosinophils/100 WBC (Bld) 1.8 % Normal 0.0 - 7.[address] [facility] Comment on above: Performed By: #### 2 42359 #### [facility],[address] [place] [address] Erythrocyte distribution width (RBC) [Ratio] 15.3 % Normal 12.0 - 15.[address] [facility] Comment on above: Performed By: #### 2 00853 #### [facility],[address] [place] [address] Hematocrit (Bld) [Volume fraction] 40.3 % Normal 34.0 - 46.[address] [facility] Comment on above: Performed By: #### 2 87956 #### [facility],[address] [place] [address] Hemoglobin (Bld) [Mass/Vol] 13.4 g/dL Normal 12.0 - 16.[address] [facility] Comment on above: Performed By: #### 2 00447 #### [facility],[address] [place] [address]79 Lymph # 2.10 x10EE3/UL Normal 0.80 - 2.[address] [facility] Comment on above: Performed By: #### 2 39067 #### [facility],[address] [place] [address] 56366 Lymphocytes/100 WBC (Bld) 22.0 % Normal 20.0 - 45.[address] [facility] Comment on above: Performed By: #### 2 78211 #### [facility],[address] [place] [address] MANUAL DIFF N/A Normal [facility] Comment on above: Performed By: #### 2 72009 #### [facility],[address] [place] [address] MCH (RBC) [Entitic mass] 29 pg Normal 27 - [address] [facility] Comment on above: Performed By: #### 2 82282 #### [facility],[address] [place] [address] MCHC 33 X10 3 Normal 32 - [address] [facility] Comment on above: Performed By: #### 2 24462 #### [facility],[address] [place] [address]87 MCV (RBC) [Entitic vol] 88 fL Normal 80 - [address] [facility] Comment on above: Performed By: #### 2 02161 #### [facility],[address] [place] [address] [place] # 0.60 x10EE3/UL Normal 0.20 - 1.[address] [facility] Comment on above: Performed By: #### 2 69729 #### [facility],[address] [place] [address] 42755 MONOS % 6.0 % Normal 0.0 - 10.[address] [facility] Comment on above: Performed By: #### 2 48435 #### [facility],[address] [place] [address] 61202 Morphology Andres (Bld) [Interp] N/A Normal [facility] Comment on above: Result Comment: {CD] Performed By: #### 2 26685 #### [facility],[address] [place] [address] 98839 Neut # 6.80 x10EE3/UL Normal 1.50 - 7.[address] [facility] Comment on above: Performed By: #### 2 89954 #### [facility],[address] [place] [address] 25653 Neutrophils/100 WBC (Bld) 69.6 % Normal 46.0 - 76.[address] [facility] Comment on above: Performed By: #### 2 65855 #### [facility],[address] [place] [address] 10155 PLATELET 300 x10EE3/UL Normal 150 - [address] [facility] Comment on above: Performed By: #### 2 84137 #### [facility],[address] [place] [address] 05348 Platelet mean volume (Bld) [Entitic vol] 7.7 fL Normal 6.6 - 10.[address] [facility] Comment on above: Result Comment: AUTO MATED DIFFERENTIAL Performed By: #### 2 39985 #### [facility],[address] [place] [address] 00236 RBC 4.57 x 10EE6/UL Normal 4.10 - 5.[address] [facility] Comment on above: Performed By: #### 2 91313 #### [facility],[address] [place] [address] 62425 WBC 9.7 x 10EE3/UL Normal 4.5 - 10.[address] [facility] Comment on above: Performed By: #### 2 09837 #### [facility],[address] [place] [address] 52545 CMP with eGFRon 05-15-2022 AGE 51 years Normal [facility] Comment on above: Performed By: #### 2 02812 #### [facility],[address] [place] [address] 91038 Albumin [Mass/Vol] 3.8 g/dL Normal 3.4 - 5.[address] [facility] Comment on above: Performed By: #### 2 07513 #### [facility],[address] [place] [address] 52737 Albumin/Globulin [Mass ratio] 0.9 {ratio} Normal 0.9 - 1.[address] [facility] Comment on above: Performed By: #### 2 76454 #### [facility],[address] [place] [address] 49150 ALK PHOS 94 U/L Normal 46 - [address] [facility] Comment on above: Performed By: #### 2 86034 #### [facility],[address] [place] [address] 61065 ALT [Catalytic activity/Vol] 31 U/L Normal 14 - [address] [facility] Comment on above: Performed By: #### 2 99763 #### [facility],[address] [place] [address] 49150 Anion gap [Moles/Vol] 12 mmol/L Normal 10 - [address] [facility] Comment on above: Performed By: #### 2 58769 #### [facility],[address] [place] [address] 78959 AST [Catalytic activity/Vol] 33 U/L Normal 13 - [address] [facility] Comment on above: Performed By: #### 2 57333 #### [facility],[address] [place] [address] 90220 B/C RATIO 14 ratio Normal 0 - [address] [facility] Comment on above: Performed By: #### 2 84506 #### [facility],[address] [place] [address] 51953 Bilirubin [Mass/Vol] 0.3 mg/dL Normal 0.2 - 1.[address] [facility] Comment on above: Performed By: #### 2 65629 #### [facility],[address] [place] [address] 74501 Calcium [Mass/Vol] 9.3 mg/dL Normal 8.5 - 10.[address] [facility] Comment on above: Performed By: #### 2 32974 #### [facility],[address] [place], [place] [address] Chloride [Moles/Vol] 102 mmol/L Normal 98 - [address] [facility] Comment on above: Performed By: #### 2 29632 #### [facility],[address] [place], [place] [address] CMP with eGFR Normal [facility] Comment on above: Result Comment: COMP REHENSIVE METABOLIC PANEL Performed By: #### 2 42952 #### [place] [address] CO2 [Moles/Vol] 28.4 mmol/L Normal 21.0 - 32.[address] [facility] Comment on above: Performed By: #### 2 83453 #### [place] [address] Creatinine [Mass/Vol] 0.84 mg/dL Normal 0.55 - 1.[address] [facility] Comment on above: Performed By: #### 2 74954 #### [place] [address] GFR/1.73 sq M.predicted among non-blacks MDRD (S/P/Bld) [Vol rate/Area] mL/min/{1.73_m2} Normal 60 - [address] [facility] Comment on above: Performed By: #### 2 10118 #### [place] [address] Result Comment: ACCO RDING TO THE NATIONAL KIDNEY DISEASE EDUCATION PROGRAM(NKDE), A NORMAL eGFR IS A VALUE GREATER THAN OR EQUAL TO 60 ML/MIN/1.73 SQ METERS. CHRONIC KIDNEY DISEASE: <60mL/MIN/1.73 SQ METERS KIDNEY FAILURE: <15mL/MIN/1.73 SQ METERS THIS TEST SHOULD ONLY BE USED FOR PATIENTS 18 YEARS OF AGE AND OLDER. Globulin (S) [Mass/Vol] 4.1 g/dL High 1.5 - 3.[address] [facility] Comment on above: Performed By: #### 2 43784 #### [address] [address] Glucose [Mass/Vol] 89 mg/dL Normal 74 - [address] [facility] Comment on above: Performed By: #### 2 99349 #### [address] [address] Potassium [Moles/Vol] 3.8 mmol/L Normal 3.5 - 5.[address] [facility] Comment on above: Performed By: #### 2 75974 #### [address] [address] Protein [Mass/Vol] 7.9 g/dL Normal 6.4 - 8.[address] [facility] Comment on above: Performed By: #### 2 15029 #### [address] [address] Sodium [Moles/Vol] 139 mmol/L Normal 136 - [address] [facility] Comment on above: Performed By: #### 2 43169 #### [address] [address] Urea nitrogen [Mass/Vol] 12 mg/dL Normal 7 - [address] [facility] Comment on above: Performed By: #### 2 53184 #### [address] [address] [address] ABDOMEN/PELVIS [facility] 2021 CT ABDOMEN/PELVIS [place] [address] Patient: HELEN ROLAND Phone#: : 1970 Age: 51 Gender: F Pt. Type: ER Account: [id number] Location: [facility] Ordering: CHRISTOPHER RUIZ Exam Date: 05/15/2022/14:22 Family Phys: MILKA JUAREZSAM Charge Code: [id number] Physician: Hubbard Order #: [id number] Dose#: 12.6 mGy PROCEDURE: CT ABDOMEN/PELVIS WITH CONTRAST COMPARISON: None. INDICATIONS: Abdominal pain. TECHNIQUE: After obtaining the patient's consent, CT images were created with non-ionic intravenous contrast material. All CT scans at this facility use dose modulation, iterative reconstruction, and/or weight based dosing when appropriate to reduce radiation dose to as low as reasonably achievable. IV CONTRAST: Omnipaque 350,80ml TOTAL DOSE: 12.6 CTDIvol(mGy) FINDINGS: LIVER: Normal. No enlargement, atrophy, abnormal density, or significant focal lesion. BILIARY: Gallbladder is absent PANCREAS: Normal. No lesion, fluid collection, ductal dilatation, or atrophy. SPLEEN: Normal. No enlargement or focal lesion. KIDNEYS: Kidneys enhance and excrete contrast symmetrically. No hydronephrosis. ADRENALS: Normal. No mass or enlargement. AORTA/VASCULAR: No aortic aneurysm RETROPERITONEUM: Normal. No mass or adenopathy. BOWEL/MESENTERY: No bowel obstruction or dilatation. Moderate stool burden. The appendix is unremarkable containing air. ABDOMINAL WALL: Normal. No mass or hernia. URINARY BLADDER: Normal. No visible focal wall thickening, lesion, or calculus. PELVIC NODES: Normal. No adenopathy. PELVIC ORGANS: Uterus is absent. No adnexal mass. BONES: Normal. No bony lesion or fracture. LUNG BASES: Normal. No visible pulmonary or pleural disease. OTHER: Negative. Continued Report - Page 2 of 2 Patient: HELEN ROLAND Phone#: : 1970 Age: 51 Gender: F Pt. Type: ER Account: [id number] Location: [facility] Ordering: CHRISTOPHER RUIZ Exam Date: 05/15/2022/14:22 Family Phys: MILKA JUAREZSAM Charge Code: [id number] Physician: Hubbard Order #: [id number] Dose#: 12.6 mGy CONCLUSION: 1. No appreciable acute intra-abdominal or pelvic abnormality 2. Moderate stool burden Dictated by: Briana Mcneal MD on 05/15/2022 at 15:22 Approved by: Briana Mcneal MD on 05/15/2022 at 15:[address] [facility] LIPASEon 05-15-2022 Lipase [Catalytic activity/Vol] 70.0 U/L Low 73.0 - [address] [facility] Comment on above: Performed By: #### 2 74055 #### [facility],[address] [place] [address] 08178 URINALYSISon 05-15-2022 Amorphous NONE Normal [facility] Comment on above: Performed By: #### 2 61883 #### [facility],[address] [place] [address] 87168 Bacteria NONE Normal [facility] Comment on above: Performed By: #### 2 47724 #### [facility],[address] [place] [address] 44500 Bilirubin Ql (U) Negative Normal NORMAL: NEGATIVE [facility] Comment on above: Performed By: #### 2 22106 #### [facility],[address] [place] [address] 08354 Casts NONE Normal [facility] Comment on above: Performed By: #### 2 16445 #### [facility],[address] [place] [address] 60469 Clarity (U) clear Normal NORMAL: CLEAR [facility] Comment on above: Performed By: #### 2 15992 #### [facility],[address] [place] [address] 41625 Color (U) p.yel Normal NORMAL: YELLOW [facility] Comment on above: Performed By: #### 2 57075 #### [facility],[address] [place] [address] 55772 Crystals LM Nom (Urine sed) NONE Normal [facility] Comment on above: Performed By: #### 2 40126 #### [facility],[address] [place] [address] 08412 Epi Cells NONE Normal [facility] Comment on above: Performed By: #### 2 38404 #### [facility],[address] [place] [address] 34288 Glucose Ql (U) NORM Normal NORMAL: NORMAL [facility] Comment on above: Performed By: #### 2 91143 #### [facility],[address] [place] [address] 59178 Hemoglobin Ql (U) Negative Normal NORMAL: NEGATIVE [facility] Comment on above: Performed By: #### 2 54647 #### [facility],[address] [place] [address] 29627 Ketone Negative Normal NORMAL: NEGATIVE [facility] Comment on above: Performed By: #### 2 36369 #### [facility],[address] [place] [address] 25378 Leukocytes 25 Abnormal NORMAL: NEGATIVE [facility] Comment on above: Performed By: #### 2 39101 #### [facility],[address] [place], [place] [address] Mucous NONE Normal [facility] Comment on above: Performed By: #### 2 85417 #### [facility],[address] [place] [address] 44112 Nitrite Ql (U) Negative Normal NORMAL: NEGATIVE [facility] Comment on above: Performed By: #### 2 86941 #### [facility],[address] [place] [address] 03559 pH (U) 6.5 [pH] Normal NORMAL: 5.0-8.[address] [facility] Comment on above: Performed By: #### 2 57795 #### [facility],[address] [place] [address] 12322 Protein Ql (U) Negative Normal NORMAL: NEGATIVE [facility] Comment on above: Performed By: #### 2 30310 #### [facility],[address] [place] [address] 64503 Rbc NONE Normal 0-3/hpf [facility] Comment on above: Performed By: #### 2 48581 #### [facility],[address] [place] [address] Sp [place] 1.005 Low NORMAL: 1.010-1.[address] [facility] Comment on above: Performed By: #### 2 63804 #### [facility],[address] [place] [address] Specimen Type Clean catch Normal [facility] Comment on above: Performed By: #### 2 23929 #### [facility],[address] [place] [address] Urinalysis dipstick W Reflex Microscopic panel (U) SEE BELOW Normal [facility] Comment on above: Result Comment: MICR OSCOPIC Performed By: #### 2 54926 #### [facility],[address] [place] [address] Urobilinog NORM Normal NORMAL: NORMAL [facility] Comment on above: Performed By: #### 2 55322 #### [facility],[address] [place] [address] Wbc 1-5 Normal 0-5/hpf [facility] Comment on above: Performed By: #### 2 03375 #### [facility],[address] [place] [address] Yeast NONE Normal [facility] Comment on above: Performed By: #### 2 20290 #### [facility],[address] [place] [address] LABORATORYOrdered By: Lary Braden on 04-20-2022 Calcium [Mass/Vol] 9.3 mg/dL Invalid Interpretation Code 8.4 - 10.2 mg/dL AO ADM SS Chloride [Moles/Vol] 105 mmol/L Invalid Interpretation Code 98 - 107 mmol/L AO ADM SS CO2 [Moles/Vol] 28 mmol/L Invalid Interpretation Code 22 - 29 mmol/L AO ADM SS Creatinine [Mass/Vol] 0.81 mg/dL Invalid Interpretation Code 0.55 - 1.02 mg/dL AO ADM SS Electrolyte Balance 6.0 mEq/L Invalid Interpretation Code 4.0 - 15.0 mEq/L AO ADM SS Glucose [Mass/Vol] 97 mg/dL Invalid Interpretation Code 70 - 105 mg/dL AO ADM SS Potassium [Moles/Vol] 4.1 mmol/L Invalid Interpretation Code 3.5 - 5.1 mmol/L AO ADM SS Sodium [Moles/Vol] 139 mmol/L Invalid Interpretation Code 136 - 145 mmol/L AO ADM SS TSH Qn 0.03 m[IU]/L Invalid Interpretation Code 0.36 - 3.74 mcIU/mL AO ADM SS Urea nitrogen [Mass/Vol] 11 mg/dL Invalid Interpretation Code 7 - 18 mg/dL AO ADM SS Urea nitrogen/Creatinine [Mass ratio] 14 ratio Invalid Interpretation Code 7 - 27 ratio AO ADM SS LABORATORYOrdered By: SYSTEM SYSTEM on 04-20-2022 GFR 91 ml/min/1.73sqm Invalid Interpretation Code AO Chemistry S GFR Non- 75 ml/min/1.73sqm Invalid Interpretation Code AO Chemistry S LABORATORYOrdered By: Aminah Nogueira on 04-06-2022 Calcium [Mass/Vol] 8.8 mg/dL Invalid Interpretation Code 8.4 - 10.2 mg/dL AO ADM SS Chloride [Moles/Vol] 105 mmol/L Invalid Interpretation Code 98 - 107 mmol/L AO ADM SS CO2 [Moles/Vol] 31 mmol/L Invalid Interpretation Code 22 - 29 mmol/L AO ADM SS Creatinine [Mass/Vol] 0.90 mg/dL Invalid Interpretation Code 0.55 - 1.02 mg/dL AO ADM SS Electrolyte Balance 6.0 mEq/L Invalid Interpretation Code 4.0 - 15.0 mEq/L AO ADM SS Glucose [Mass/Vol] 91 mg/dL Invalid Interpretation Code 70 - 105 mg/dL AO ADM SS Potassium [Moles/Vol] 4.1 mmol/L Invalid Interpretation Code 3.5 - 5.1 mmol/L AO ADM SS Sodium [Moles/Vol] 142 mmol/L Invalid Interpretation Code 136 - 145 mmol/L AO ADM SS TSH mcIU/mL Invalid Interpretation Code 0.36 - 3.74 mcIU/mL AO ADM SS Urea nitrogen [Mass/Vol] 12 mg/dL Invalid Interpretation Code 7 - 18 mg/dL AO ADM SS Urea nitrogen/Creatinine [Mass ratio] 13 ratio Invalid Interpretation Code 7 - 27 ratio AO ADM SS LABORATORYOrdered By: DGTS SYSTEM on 04-06-2022 GFR 81 ml/min/1.73sqm Invalid Interpretation Code AO Chemistry S GFR Non- 67 ml/min/1.73sqm Invalid Interpretation Code AO Chemistry S Laboratory - Chemistry and C hemistry - challengeOrdered By: Dr. Schneider on 04-03-2022 Free T4 [Mass/Vol] 1.12 ng/dL 0.76-1.46 [facility] No Panel InformationOrdered By: Dr. Schneider on 04-03-2022 Thyroid Stimulating Hormone (TSH) < 0.01 uIU/mL 0.358-3.74 [facility] LABORATORYOrdered By: Antonella Dillard on 03-29-2022 Basophil, Absolute 0.0 103/mcL Invalid Interpretation Code 0.0 - 0.2 10^3/mcL AO Workflow SS Basophils/100 WBC (Bld) 0.3 % Invalid Interpretation Code 0.0 - 2.5 % AO Workflow SS Calcium [Mass/Vol] 10.1 mg/dL Invalid Interpretation Code 8.4 - 10.2 mg/dL AO ADM SS Chloride [Moles/Vol] 105 mmol/L Invalid Interpretation Code 98 - 107 mmol/L AO ADM SS CO2 [Moles/Vol] 28 mmol/L Invalid Interpretation Code 22 - 29 mmol/L AO ADM SS Creatinine [Mass/Vol] 0.94 mg/dL Invalid Interpretation Code 0.55 - 1.02 mg/dL AO ADM SS Electrolyte Balance 10.0 mEq/L Invalid Interpretation Code 4.0 - 15.0 mEq/L AO ADM SS Eosinophil, Absolute 0.2 103/mcL Invalid Interpretation Code 0.0 - 0.4 10^3/mcL AO Workflow SS Eosinophils/100 WBC (Bld) 2.6 % Invalid Interpretation Code 0.0 - 7.0 % AO Workflow SS Erythrocyte distribution width (RBC) [Ratio] 14.3 % Invalid Interpretation Code 11.5 - 14.5 % AO Workflow SS Glucose [Mass/Vol] 102 mg/dL Invalid Interpretation Code 70 - 105 mg/dL AO ADM SS Hematocrit (Bld) [Volume fraction] 40.1 % Invalid Interpretation Code 37.0 - 47.0 % AO Workflow SS Hemoglobin (Bld) [Mass/Vol] 13.4 G/dL Invalid Interpretation Code 12.0 - 16.0 G/dL AO Workflow SS Lymphocyte, Absolute 2.5 103/mcL Invalid Interpretation Code 0.8 - 3.9 10^3/mcL AO Workflow SS Lymphocytes/100 WBC (Bld) 32.8 % Invalid Interpretation Code 10.0 - 50.0 % AO Workflow SS MCH (RBC) [Entitic mass] 29.4 pg Invalid Interpretation Code 27.0 - 31.2 pg AO Workflow SS MCHC 33.4 G/dL Invalid Interpretation Code 33.0 - 37.0 G/dL AO Workflow SS MCV (RBC) [Entitic vol] 87.9 fL Invalid Interpretation Code 80.0 - 94.0 fL AO Workflow SS Monocyte distribution width Auto (Bld) [Entitic vol] 13.92 Invalid Interpretation Code 0.00 - 20.00 AO Workflow SS Comment on above: Result Comment: For ED adult patients suspected of sepsis, MDW<=20.0 does not rule out sepsis or risk of sepsis Monocyte, Absolute 0.6 103/mcL Invalid Interpretation Code 0.2 - 1.0 10^3/mcL AO Workflow SS Monocytes/100 WBC (Bld) 7.9 % Invalid Interpretation Code 1.7 - 13.0 % AO Workflow SS Neutrophil, Absolute 4.3 103/mcL Invalid Interpretation Code 2.9 - 6.2 10^3/mcL AO Workflow SS Neutrophils/100 WBC (Bld) 56.4 % Invalid Interpretation Code 37.0 - 80.0 % AO Workflow SS Platelet mean volume (Bld) [Entitic vol] 7.0 fL Invalid Interpretation Code 7.4 - 10.4 fL AO Workflow SS Platelets (Bld) [#/Vol] 265 103/mcL Invalid Interpretation Code 130 - 400 10^3/mcL AO Workflow SS Potassium [Moles/Vol] 4.0 mmol/L Invalid Interpretation Code 3.5 - 5.1 mmol/L AO ADM SS RBC (Bld) [#/Vol] 4.56 106/mcL Invalid Interpretation Code 4.20 - 5.40 10^6/mcL AO Workflow SS Sodium [Moles/Vol] 143 mmol/L Invalid Interpretation Code 136 - 145 mmol/L AO ADM SS Troponin I.cardiac DL <= 0.01 ng/mL [Mass/Vol] 20.2 ng/L Invalid Interpretation Code 0.0 - 51.4 ng/L AO ADM SS TSH Qn 0.01 m[IU]/L Invalid Interpretation Code 0.36 - 3.74 mcIU/mL AO ADM SS Urea nitrogen [Mass/Vol] 10 mg/dL Invalid Interpretation Code 7 - 18 mg/dL AO ADM SS Urea nitrogen/Creatinine [Mass ratio] 11 ratio Invalid Interpretation Code 7 - 27 ratio AO ADM SS WBC (Bld) [#/Vol] 7.6 103/mcL Invalid Interpretation Code 4.6 - 10.8 10^3/mcL AO Workflow SS LABORATORYOrdered By: SYSTEM SYSTEM on 03-29-2022 GFR 77 ml/min/1.73sqm Invalid Interpretation Code AO Chemistry S GFR Non- 63 ml/min/1.73sqm Invalid Interpretation Code AO Chemistry S Absolute lymphocyte counton 03-02-2022 Lymphocytes Auto (Unsp spec) [#/Vol] 2.48 10*3/uL 0.83-4.51 [facility] Work Phone: Basophil percentageon 2021 Basophils/100 WBC (Bld) 0.2 % 0-1 [facility] Work Phone: Bilirubin [Mass/Vol] 0.40 mg/dL 0.20-1.00 [facility] Work Phone: Comment on above: For patients on eltr ombopag therapy, use of Dimension [place] TBIL is not recommended. Chloride [Moles/Vol] 105 mmol/L 98-107 [facility] Work Phone: Eosinophils/100 WBC (Bld) 0.7 % 0-5 [facility] Work Phone: Glucose [Mass/Vol] 101 mg/dL 74-106 [facility] Work Phone: Comment on above: Fasting Glucose resu lt from 100 to 125 mg/dL suggests IMPAIRED HOMEOSTASIS per A.D.A. criteria. Neutrophils (Bld) [#/Vol] 7.0 10*3/uL 2.0-7.7 [facility] Work Phone: Neutrophils/100 WBC (Bld) 67.9 % 47-70 [facility] Work Phone: Potassium [Moles/Vol] 3.5 mmol/L 3.5-5.1 [facility] Work Phone: Protein [Mass/Vol] 7.9 g/dL 6.4-8.2 [facility] Work Phone: [phone] Sodium [Moles/Vol] 140 mmol/L 136-145 [facility] Work Phone: [phone] WBC (Bld) [#/Vol] 10.3 10*3/uL 4.4-11.0 [facility] Work Phone: [phone] Blood erythrocytes count (nu mber/volume)on 03-02-2022 RBC (Bld) [#/Vol] 4.47 10*6/uL 4.2-5.4 [facility] Work Phone: [phone] Blood hemoglobin measurement (mass/volume)on 03-02-2022 Hemoglobin (Bld) [Mass/Vol] 13.2 g/dL 12.0-15.0 [facility] Work Phone: [phone] Blood lymphocytes/100 leukoc yteson 03-02-2022 Lymphocytes/100 WBC (Bld) 24.2 % 19-41 [facility] Work Phone: [phone] Blood monocytes/100 leukocyt eson 03-02-2022 Monocytes/100 WBC (Bld) 6.6 % 0-10 [facility] Work Phone: [phone] Blood platelet mean volumeon 03-02-2022 Platelet mean volume (Bld) [Entitic vol] 9.0 fL 6.2-12.0 [facility] Work Phone: [phone] Determination of erythrocyte mean corpuscular volume (MCV)on 03-02-2022 MCV (RBC) [Entitic vol] 90.6 fL 81-99 [facility] Work Phone: [phone] Hematocrit Auto (Bld) [Volum e fraction]on 03-02-2022 Hematocrit (Bld) [Volume fraction] 40.5 % 37-47 [facility] Work Phone: [phone] Laboratory - Chemistry and C hemistry - challengeon 03-02-2022 ALP [Catalytic activity/Vol] 103 U/L 45-117 [facility] Work Phone: ALT [Catalytic activity/Vol] 46 U/L 13-56 [facility] Work Phone: [phone] CO2 [Moles/Vol] 30.0 mmol/L 21.0-32.0 [facility] Work Phone: [phone] Globulin (S) [Mass/Vol] 4.3 g/dL 2.2-4.2 [facility] Work Phone: [phone] Lipase [Catalytic activity/Vol] 98 U/L 73-393 [facility] Work Phone: [phone] Urea nitrogen/Creatinine [Mass ratio] 13.5 mg/mg 10-20 [facility] Work Phone: [phone] Laboratory - Hematology and Cell countson 03-02-2022 Erythrocyte distribution width (RBC) [Entitic vol] 44.7 fL 35.1-43.9 [facility] Work Phone: [phone] Erythrocyte distribution width (RBC) [Ratio] 13.4 % 11.6-14.6 [facility] Work Phone: [phone] Immature granulocytes/100 WBC (Bld) 0.400 % 0.0-0.9 [facility] Work Phone: [phone] Comment on above: IG% - Immature Granu locytes (promyelocytes, myelocytes and metamyelocytes) > 1% indicates that a LEFT SHIFT is Present. MCH (RBC) [Entitic mass] 29.5 pg 27.0-32.0 [facility] Work Phone: [phone] Nucleated RBC/100 WBC (Bld) [Ratio] 0 % 0-5 [facility] Work Phone: [phone] MCHC Auto (RBC) [Mass/Vol]on 03-02-2022 MCHC (RBC) [Mass/Vol] 32.6 g/dL 32-36 [facility] Work Phone: [phone] Panel Informationon 03-02 Estimated Creatinine Clearance Calc 74.36 ml/min [facility] Work Phone: [phone] Estimated GFR (MDRD) Amer 86 mL/min >60 [facility] Work Phone: Comment on above: GFR Calc Estimated GFR (MDRD) Non-Af Amer 71 mL/min >60 [facility] Work Phone: Comment on above: Non- GFR Calc Platelets bldon 03-02-2022 Platelets (Bld) [#/Vol] 274 10*3/uL 150-450 [facility] Work Phone: [phone] Serum or plasma albumin naz urement (mass/volume)on 03-02-2022 Albumin [Mass/Vol] 3.6 g/dL 3.2-5.0 [facility] Work Phone: [phone] Serum or plasma albumin/glob ulin mass ratioon 03-02-2022 Albumin/Globulin [Mass ratio] 0.8 {ratio} 0.9-2.4 [facility] Work Phone: Serum or plasma calcium naz urement (mass/volume)on 03-02-2022 Calcium [Mass/Vol] 9.6 mg/dL 8.5-10.1 [facility] Work Phone: [phone] Serum or plasma creatinine m easurement (mass/volume)on 03-02-2022 Creatinine [Mass/Vol] 0.89 mg/dL 0.55-1.02 [facility] Work Phone: Comment on above: The validity of the calculated GFR & GFRAA in patients over 70 years has not been determined. Clinical correlation is essential. Serum or plasma urea nitroge n measurement (mass/volume)on 03-02-2022 Urea nitrogen [Mass/Vol] 12 mg/dL 7-18 [facility] Work Phone: [phone] Thin prep Papanicolaou smear with manual screeningon 03-02-2022 Thin prep Papanicolaou smear with manual screening 27 U/L 15-37 [facility] Work Phone: [phone] Thin prep Papanicolaou smear with manual screening 5 5-15 [facility] Work Phone: Absolute lymphocyte counton 02-12-2022 Lymphocytes Auto (Unsp spec) [#/Vol] 2.69 10*3/uL 0.83-4.51 [facility] Work Phone: Basophil percentageon 2021 Basophils/100 WBC (Bld) 0.2 % 0-1 [facility] Work Phone: Chloride [Moles/Vol] 105 mmol/L 98-107 [facility] Work Phone: Eosinophils/100 WBC (Bld) 0.2 % 0-5 [facility] Work Phone: Glucose [Mass/Vol] 120 mg/dL 74-106 [facility] Work Phone: Comment on above: Fasting Glucose resu lt from 100 to 125 mg/dL suggests IMPAIRED HOMEOSTASIS per A.D.A. criteria. Neutrophils (Bld) [#/Vol] 8.6 10*3/uL 2.0-7.7 [facility] Work Phone: Neutrophils/100 WBC (Bld) 70.4 % 47-70 [facility] Work Phone: Potassium [Moles/Vol] 3.2 mmol/L 3.5-5.1 [facility] Work Phone: Sodium [Moles/Vol] 137 mmol/L 136-145 [facility] Work Phone: WBC (Bld) [#/Vol] 12.2 10*3/uL 4.4-11.0 [facility] Work Phone: Blood erythrocytes count (nu mber/volume)on 02-12-2022 RBC (Bld) [#/Vol] 4.24 10*6/uL 4.2-5.4 [facility] Work Phone: Blood hemoglobin measurement (mass/volume)on 02-12-2022 Hemoglobin (Bld) [Mass/Vol] 12.5 g/dL 12.0-15.0 [facility] Work Phone: Blood lymphocytes/100 leukoc yteson 02-12-2022 Lymphocytes/100 WBC (Bld) 22.0 % 19-41 [facility] Work Phone: Blood monocytes/100 leukocyt eson 02-12-2022 Monocytes/100 WBC (Bld) 6.8 % 0-10 [facility] Work Phone: [phone] Blood platelet mean volumeon 02-12-2022 Platelet mean volume (Bld) [Entitic vol] 9.1 fL 6.2-12.0 [facility] Work Phone: [phone] Determination of erythrocyte mean corpuscular volume (MCV)on 02-12-2022 MCV (RBC) [Entitic vol] 89.9 fL 81-99 [facility] Work Phone: [phone] Hematocrit Auto (Bld) [Volum e fraction]on 02-12-2022 Hematocrit (Bld) [Volume fraction] 38.1 % 37-47 [facility] Work Phone: [phone] Laboratory - Chemistry and C hemistry - challengeon 02-12-2022 CO2 [Moles/Vol] 24.0 mmol/L 21.0-32.0 [facility] Work Phone: [phone] Urea nitrogen/Creatinine [Mass ratio] 15.9 mg/mg 10-20 [facility] Work Phone: [phone] Laboratory - Hematology and Cell countson 02-12-2022 Erythrocyte distribution width (RBC) [Entitic vol] 45.2 fL 35.1-43.9 [facility] Work Phone: [phone] Erythrocyte distribution width (RBC) [Ratio] 13.6 % 11.6-14.6 [facility] Work Phone: [phone] Immature granulocytes/100 WBC (Bld) 0.400 % 0.0-0.9 [facility] Work Phone: [phone] Comment on above: IG% - Immature Granu locytes (promyelocytes, myelocytes and metamyelocytes) > 1% indicates that a LEFT SHIFT is Present. MCH (RBC) [Entitic mass] 29.5 pg 27.0-32.0 [facility] Work Phone: [phone] Nucleated RBC/100 WBC (Bld) [Ratio] 0 % 0-5 [facility] Work Phone: [phone] MCHC Auto (RBC) [Mass/Vol]on 02-12-2022 MCHC (RBC) [Mass/Vol] 32.8 g/dL 32-36 [facility] Work Phone: No Panel Informationon 02-12 Estimated Creatinine Clearance Calc 80.82 ml/min [facility] Work Phone: Estimated GFR (MDRD) Amer 87 mL/min >60 [facility] Work Phone: [phone] Comment on above: GFR Calc Estimated GFR (MDRD) Non-Af Amer 72 mL/min >60 [facility] Work Phone: Comment on above: Non- GFR Calc Troponin I High Sensitivity 12 pg/mL 3.0-54.0 [facility] Work Phone: Comment on above: Please Note: New Francoise t Units and Gender Specific Reference Ranges. For more information see Policy Stat Procedure [place] High Sensitivity Troponin (TNIH) and attachments. Platelets bldon 02-12-2022 Platelets (Bld) [#/Vol] 293 10*3/uL 150-450 [facility] Work Phone: [phone] Serum or plasma calcium naz urement (mass/volume)on 02-12-2022 Calcium [Mass/Vol] 9.1 mg/dL 8.5-10.1 [facility] Work Phone: [phone] Serum or plasma creatinine m easurement (mass/volume)on 02-12-2022 Creatinine [Mass/Vol] 0.88 mg/dL 0.55-1.02 [facility] Work Phone: Comment on above: The validity of the calculated GFR & GFRAA in patients over 70 years has not been determined. Clinical correlation is essential. Serum or plasma urea nitroge n measurement (mass/volume)on 02-12-2022 Urea nitrogen [Mass/Vol] 14 mg/dL 7-18 [facility] Work Phone: [phone] Thin prep Papanicolaou smear with manual screeningon 02-12-2022 Thin prep Papanicolaou smear with manual screening 8 5-15 [facility] Work Phone: [phone] Bacteria identified Anaer cx Nom (Unsp spec)on 09-01-2021 Anaerobic microbial culture No anaerobic bacteria isolated. [facility] Work Phone: [phone] Bacteria identified Cx Nom ( Wound)on 09-01-2021 Wound Culture Staphylococcus epidermidis [facility] Work Phone: [phone] Gram stain for investigation of transfusion reactionon 09-01-2021 Microscopic observation Gram stain Nom (Unsp spec) [facility] Work Phone: Basophil percentageon 2021 Chloride [Moles/Vol] 103 mmol/L 98-107 [facility] Work Phone: [phone] Glucose [Mass/Vol] 124 mg/dL 74-106 [facility] Work Phone: [phone] Comment on above: Fasting Glucose resu lt from 100 to 125 mg/dL suggests IMPAIRED HOMEOSTASIS per A.D.A. criteria. Potassium [Moles/Vol] 4.1 mmol/L 3.5-5.1 [facility] Work Phone: [phone] Sodium [Moles/Vol] 135 mmol/L 136-145 [facility] Work Phone: [phone] WBC (Bld) [#/Vol] 15.1 10*3/uL 4.4-11.0 [facility] Work Phone: [phone] Blood erythrocytes count (nu mber/volume)on 08-04-2021 RBC (Bld) [#/Vol] 3.36 10*6/uL 4.2-5.4 [facility] Work Phone: [phone] Blood hemoglobin measurement (mass/volume)on 08-04-2021 Hemoglobin (Bld) [Mass/Vol] 10.2 g/dL 12.0-15.0 [facility] Work Phone: [phone] Blood platelet mean volumeon 08-04-2021 Platelet mean volume (Bld) [Entitic vol] 11.1 fL 6.2-12.0 [facility] Work Phone: [phone] Determination of erythrocyte mean corpuscular volume (MCV)on 08-04-2021 MCV (RBC) [Entitic vol] 89.9 fL 81-99 [facility] Work Phone: [phone] Hematocrit Auto (Bld) [Volum e fraction]on 08-04-2021 Hematocrit (Bld) [Volume fraction] 30.2 % 37-47 [facility] Work Phone: [phone] Laboratory - Chemistry and C hemistry - challengeon 08-04-2021 CO2 [Moles/Vol] 28.0 mmol/L 21.0-32.0 [facility] Work Phone: [phone] Urea nitrogen/Creatinine [Mass ratio] 11.6 mg/mg 10-20 [facility] Work Phone: [phone] Laboratory - Hematology and Cell countson 08-04-2021 Erythrocyte distribution width (RBC) [Entitic vol] 46.0 fL 35.1-43.9 [facility] Work Phone: [phone] Erythrocyte distribution width (RBC) [Ratio] 14.0 % 11.6-14.6 [facility] Work Phone: [phone] MCH (RBC) [Entitic mass] 30.4 pg 27.0-32.0 [facility] Work Phone: [phone] MCHC Auto (RBC) [Mass/Vol]on 08-04-2021 MCHC (RBC) [Mass/Vol] 33.8 g/dL 32-36 [facility] Work Phone: [phone] No Panel Informationon 08-04 Estimated Creatinine Clearance Calc 99.49 ml/min [facility] Work Phone: [phone] GFR (MDRD) Amer 116 mL/min >60 [facility] Work Phone: [phone] Comment on above: GFR Calc Estimated GFR (MDRD) Non-Af Amer 96 mL/min >60 [facility] Work Phone: [phone] Comment on above: Non- GFR Calc Platelets bldon 08-04-2021 Platelets (Bld) [#/Vol] 234 10*3/uL 150-450 [facility] Work Phone: [phone] Serum or plasma calcium naz urement (mass/volume)on 08-04-2021 Calcium [Mass/Vol] 8.8 mg/dL 8.5-10.1 [facility] Work Phone: Serum or plasma creatinine m easurement (mass/volume)on 08-04-2021 Creatinine [Mass/Vol] 0.69 mg/dL 0.55-1.02 [facility] Work Phone: Comment on above: The validity of the calculated GFR & GFRAA in patients over 70 years has not been determined. Clinical correlation is essential. Serum or plasma transthyreti n measurement (mass/volume)on 08-04-2021 Prealbumin [Mass/Vol] 11.5 mg/dL 20.0-40.0 [facility] Work Phone: Serum or plasma urea nitroge n measurement (mass/volume)on 08-04-2021 Urea nitrogen [Mass/Vol] 8 mg/dL 7-18 [facility] Work Phone: Thin prep Papanicolaou smear with manual screeningon 08-04-2021 Thin prep Papanicolaou smear with manual screening 4 5-15 [facility] Work Phone: Glucose Glucometer (BldC) [M ass/Vol]on 08-03-2021 Glucose [Mass/Vol] 75 mg/dL 70-110 [facility] Work Phone: Comment on above: MANAGEMENT OF PATIEN T CARE PER NURSING PROTOCOL Laboratory - Chemistry and C hemistry - challengeon 08-01-2021 Magnesium [Mass/Vol] 2.1 mg/dL 1.6-2.6 [facility] Work Phone: No Panel Informationon 08-01 Thyroid Stimulating Hormone (TSH) < 0.01 uIU/mL 0.358-3.74 [facility] Work Phone: SARS-CoV-2 Antigen (Rapid) [facility] Work Phone: Absolute lymphocyte counton 05-20-2021 Lymphocytes Auto (Unsp spec) [#/Vol] 3.16 10*3/uL 0.83-4.51 [facility] Work Phone: Basophil percentageon 2020 Chloride [Moles/Vol] 109 mmol/L 98-107 [facility] Work Phone: Eosinophils/100 WBC (Bld) 0.6 % 0-5 [facility] Work Phone: Glucose [Mass/Vol] 99 mg/dL 74-106 [facility] Work Phone: Comment on above: Please note revised GLUCOSE reference range effective 2017. Neutrophils (Bld) [#/Vol] 6.7 10*3/uL 2.0-7.7 [facility] Work Phone: Potassium [Moles/Vol] 3.3 mmol/L 3.5-5.1 [facility] Work Phone: Sodium [Moles/Vol] 141 mmol/L 136-145 [facility] Work Phone: WBC (Bld) [#/Vol] 10.9 10*3/uL 4.4-11.0 [facility] Work Phone: Blood erythrocytes count (nu mber/volume)on 05-20-2021 RBC (Bld) [#/Vol] 4.12 10*6/uL 4.2-5.4 [facility] Work Phone: Blood hemoglobin measurement (mass/volume)on 05-20-2021 Hemoglobin (Bld) [Mass/Vol] 12.2 g/dL 12.0-15.0 [facility] Work Phone: Blood lymphocytes/100 leukoc yteson 05-20-2021 Lymphocytes/100 WBC (Bld) 29.1 % 19-41 [facility] Work Phone: Blood monocytes/100 leukocyt eson 05-20-2021 Monocytes/100 WBC (Bld) 7.9 % 0-10 [facility] Work Phone: Blood platelet mean volumeon 05-20-2021 Platelet mean volume (Bld) [Entitic vol] 10.3 fL 6.2-12.0 [facility] Work Phone: [phone] Determination of erythrocyte mean corpuscular volume (MCV)on 05-20-2021 MCV (RBC) [Entitic vol] 90.5 fL 81-99 [facility] Work Phone: [phone] Hematocrit Auto (Bld) [Volum e fraction]on 05-20-2021 Hematocrit (Bld) [Volume fraction] 37.3 % 37-47 [facility] Work Phone: [phone] Laboratory - Chemistry and C hemistry - challengeon 05-20-2021 CO2 [Moles/Vol] 24.0 mmol/L 21.0-32.0 [facility] Work Phone: [phone] Urea nitrogen/Creatinine [Mass ratio] 9.7 mg/mg 10-20 [facility] Work Phone: [phone] Laboratory - Hematology and Cell countson 05-20-2021 Basophils/100 WBC (Unsp spec) 0.2 % 0-1 [facility] Work Phone: [phone] Erythrocyte distribution width (RBC) [Entitic vol] 42.5 fL 35.1-43.9 [facility] Work Phone: [phone] Erythrocyte distribution width (RBC) [Ratio] 12.9 % 11.6-14.6 [facility] Work Phone: [phone] Immature granulocytes/100 WBC (Bld) 0.300 % 0.0-0.9 [facility] Work Phone: [phone] Comment on above: IG% - Immature Granu locytes (promyelocytes, myelocytes and metamyelocytes) > 1% indicates that a LEFT SHIFT is Present. MCH (RBC) [Entitic mass] 29.6 pg 27.0-32.0 [facility] Work Phone: Neutrophils/100 WBC (Bld) 61.9 % 47-70 [facility] Work Phone: [phone] Nucleated RBC/100 WBC (Bld) [Ratio] 0 % 0-5 [facility] Work Phone: [phone] MCHC Auto (RBC) [Mass/Vol]on 05-20-2021 MCHC (RBC) [Mass/Vol] 32.7 g/dL 32-36 [facility] Work Phone: No Panel Informationon 05-20 Estimated Creatinine Clearance Calc 96.39 ml/min [facility] Work Phone: Estimated GFR (MDRD) Amer 111 mL/min >60 [facility] Work Phone: Comment on above: GFR Calc Estimated GFR (MDRD) Non-Af Amer 92 mL/min >60 [facility] Work Phone: Comment on above: Non- GFR Calc Platelets bldon 05-20-2021 Platelets (Bld) [#/Vol] 268 10*3/uL 150-450 [facility] Work Phone: Serum or plasma calcium naz urement (mass/volume)on 05-20-2021 Calcium [Mass/Vol] 9.7 mg/dL 8.5-10.1 [facility] Work Phone: [phone] Serum or plasma creatinine m easurement (mass/volume)on 05-20-2021 Creatinine [Mass/Vol] 0.72 mg/dL 0.55-1.02 [facility] Work Phone: Comment on above: The validity of the calculated GFR & GFRAA in patients over 70 years has not been determined. Clinical correlation is essential. Serum or plasma urea nitroge n measurement (mass/volume)on 05-20-2021 Urea nitrogen [Mass/Vol] 7 mg/dL 7-18 [facility] Work Phone: [phone] Thin prep Papanicolaou smear with manual screeningon 05-20-2021 Thin prep Papanicolaou smear with manual screening 8 5-15 [facility] Work Phone: [phone] Telephone Encounteron 2020 [employer] Authentication Interface Message Text Called placed to [facility] Radiology department and spoke with Deepthi (Nettie was not there) , Deepthi stated she will look into it and pass the message on. [facility] [employer] Telephone Encounteron 2020 Searchlight Operator Authentication Interface Message Text Please call Radiology at [place]. OK to have x-ray of both hips WITH pelvis. Eric Whitfield MD [facility] [employer] Search[employer] Operator Authentication Interface Message Text Situation: Clarification of Order Background: Nettie with Radiology at [facility] - pt there now with Xray orders (XR OLIVER HIPS AP/LAT W/O PELVIS) she is calling to find out if ok to with W/PELVIS generally that is how they do it - please call verbal ok is fine. Assessment: advise Recommendation: Please contact Nettie at [phone] with clarification [facility] [employer] Telephone Encounteron 2020 Searchlight Operator Authentication Interface Message Text 3rd attempt to reach patient by phone. Left message for patient to return call re: Reference 99 to retreive message from provider. Please relay provider message below. Letter mailed. Closing encounter. [facility] [employer] [facility] Telephone Encounteron 2020 Searchlight Operator Authentication Interface Message Text From: Helen Roland To: Eric Whitfield MD Sent: 01/03/2021 4:32 PM EDT Subject: Visit Follow-Up Question Hello Dr. Whitfield, I was wondering if you could schedule an X-ray at [facility] andcompare it to my last X-Ray. I called to see if I could schedule an appointment but the appointment would not be until April. I had switched Doctors, now I go to Dr. Rojas in [place]. I just want to know if its the same because the Doctor that I was going to, said there was mild degenerative disc and Ankylosing Spondylitis. I appreciate your time in looking into this. My phone number now is [phone]. Thank you Helen Roland [facility] [employer] Search[employer] Operator Authentication Interface Message Text Left message for patient to return call re: Reference 99 to retreive message from provider. Please relay provider message below. [facility] [employer] [facility] Telephone Encounteron 2020 [employer] Operator Authentication Interface Message Text Left message for patient to return call re: Reference 99 to retreive message from provider. Please relay provider message below. Please call patient. She has not seen me for back pain, and I have not assessed her to see if a back x-ray is appropriate. If she is interested in a back x-ray, I recommend that she inquire to her PCP, or schedule an appointment with me for further assessment. ??? Eric Whitfield MD ??? [facility] [employer] [facility] Telephone Encounteron 2020 Searchlight Operator Authentication Interface Message Text Please call patient. She has not seen me for back pain, and I have not assessed her to see if a back x-ray is appropriate. If she is interested in a back x-ray, I recommend that she inquire to her PCP, or schedule an appointment with me for further assessment. Eric Whitfield MD [facility] [employer] [facility] Telephone Encounteron 2020 [employer] Authentication Interface Message Text Caller Name: HELEN ROLAND Requesting order for: Patient calling to request rhematology provider Dr Eric Whitfield, place An X-RAY order for her back pain? Reason for request: BACK PAIN Caller Number: Phone numbers When order is placed please notify patient. Thank you. [facility] [employer] [facility] Vital Signs Date Time Vital Sign Value Performing [facility] 09-02-2024 09:06-0400 Body mass index (BMI) [Ratio] 24.97 kg/m2 Emile Bentley APRN.SURGICAL DRESSING MAKER Work Phone: [facility] 09-02-2024 09:06-0400 Body temperature 97.7 [degF] Emile Bentley APRN.SURGICAL DRESSING MAKER Work Phone: [facility] 09-02-2024 09:06-0400 Body weight 74.5 kg Emile Bentley APRN.SURGICAL DRESSING MAKER Work Phone: [facility] 09-02-2024 09:06-0400 Diastolic blood pressure 82 mm[Hg] Emile Bentley APRN.SURGICAL DRESSING MAKER Work Phone: [facility] 09-02-2024 09:06-0400 Heart rate 71 /min Emile Bentley APRN.SURGICAL DRESSING MAKER Work Phone: [facility] 09-02-2024 09:06-0400 Respiratory rate 16 /min Emile Bentley APRN.SURGICAL DRESSING MAKER Work Phone: [facility] 09-02-2024 09:06-0400 SaO2% (BldA) [Mass fraction] 97 % Emile Bentley APRN.SURGICAL DRESSING MAKER Work Phone: [facility] 09-02-2024 09:06-0400 Systolic blood pressure 136 mm[Hg] Emile Bentley APRN.SURGICAL DRESSING MAKER Work Phone: [facility] 04-07-2024 19:09-0400 Body mass index (BMI) [Ratio] 28.36 kg/m2 Araceli Burns APRN.SURGICAL DRESSING MAKER Work Phone: [facility] 04-07-2024 19:09-0400 Body temperature 97.2 [degF] Araceli Burns PRIMARY CARE COORDINATOR.SURGICAL DRESSING MAKER Work Phone: [facility] 04-07-2024 19:09-0400 Body weight 84.6 kg Araceli Burns APRN.SURGICAL DRESSING MAKER Work Phone: [facility] 04-07-2024 19:09-0400 Diastolic blood pressure 64 mm[Hg] Araceli Burns APRN.SURGICAL DRESSING MAKER Work Phone: [facility] 04-07-2024 19:09-0400 Heart rate 62 /min Araceli Burns APRN.SURGICAL DRESSING MAKER Work Phone: [facility] 04-07-2024 19:09-0400 Respiratory rate 16 /min Araceli Burns APRN.SURGICAL DRESSING MAKER Work Phone: [facility] 04-07-2024 19:09-0400 SaO2% (BldA) [Mass fraction] 98 % Araceli Burns APRN.SURGICAL DRESSING MAKER Work Phone: [facility] 04-07-2024 19:09-0400 Systolic blood pressure 110 mm[Hg] Araceli Burns APRN.SURGICAL DRESSING MAKER Work Phone: [facility] 03-02-2024 08:35-0400 Body mass index (BMI) [Ratio] 29.26 kg/m2 Emile Bentley APRN.SURGICAL DRESSING MAKER Work Phone: [facility] 03-02-2024 08:35-0400 Body temperature 98.29 [degF] Emile Bentley APRN.SURGICAL DRESSING MAKER Work Phone: [facility] 03-02-2024 08:35-0400 Body weight 87.3 kg Emile Bentley APRN.SURGICAL DRESSING MAKER Work Phone: [facility] 03-02-2024 08:35-0400 Diastolic blood pressure 70 mm[Hg] Emile Bentley APRN.SURGICAL DRESSING MAKER Work Phone: [facility] 03-02-2024 08:35-0400 Heart rate 96 /min Emile Bentley APRN.SURGICAL DRESSING MAKER Work Phone: [facility] 03-02-2024 08:35-0400 Respiratory rate 16 /min Emile Bentley APRN.SURGICAL DRESSING MAKER Work Phone: [facility] 03-02-2024 08:35-0400 SaO2% (BldA) [Mass fraction] 98 % Emile Bentley APRN.SURGICAL DRESSING MAKER Work Phone: [facility] 03-02-2024 08:35-0400 Systolic blood pressure 120 mm[Hg] Emile Bentley APRN.SURGICAL DRESSING MAKER Work Phone: [facility] 01-26-2024 15:11-0400 Diastolic Blood Pressure Non-Invasive 80 mm[Hg] EVELYN REICHFIELD DO [facility] 01-26-2024 15:11-0400 Heart rate 70 /min EVELYN REICHFIELD DO [facility] 01-26-2024 15:11-0400 Reason For Taking VItal Signs EVELYN REICHFIELD DO [facility] 01-26-2024 15:11-0400 Respiratory rate 16 /min EVELYN REICHFIELD DO [facility] 01-26-2024 15:11-0400 Systolic Blood Pressure Non-Invasive 144 mm[Hg] EVELYN REICHFIELD DO [facility] 01-26-2024 14:36-0400 Diastolic Blood Pressure Non-Invasive 79 mm[Hg] EVELYN REICHFIELD DO [facility] 01-26-2024 14:36-0400 Heart rate 81 /min EVELYN REICHFIELD DO [facility] 01-26-2024 14:36-0400 Mean blood pressure 99 mm[Hg] EVELYN REICHFIELD DO [facility] 01-26-2024 14:36-0400 Respiratory rate 16 /min EVELYN REICHFIELD DO [facility] 01-26-2024 14:36-0400 Systolic Blood Pressure Non-Invasive 145 mm[Hg] EVELYN REICHFIELD DO [facility] 01-26-2024 11:40-0400 Body temperature 96.62 [degF] EVELYN REICHFIELD DO [facility] 01-26-2024 11:40-0400 Diastolic Blood Pressure Non-Invasive 92 mm[Hg] EVELYN REICHFIELD DO [facility] 01-26-2024 11:40-0400 Heart rate 93 /min EVELYN REICHFIELD DO [facility] 01-26-2024 11:40-0400 Respiratory rate 16 /min EVELYN REICHFIELD DO [facility] 01-26-2024 11:40-0400 Systolic Blood Pressure Non-Invasive 165 mm[Hg] EVELYN REICHFIELD DO [facility] 12-09-2023 15:35-0400 Blood Pressure Location JAIME CARPENTER MD [facility] 12-09-2023 15:35-0400 Body temperature 98.6 [degF] JAIME CARPENTER MD [facility] 12-09-2023 15:35-0400 Diastolic Blood Pressure Non-Invasive 98 mm[Hg] JAIME CARPENTER MD [facility] 12-09-2023 15:35-0400 Heart rate 99 /min JAIME CARPENTER MD [facility] 12-09-2023 15:35-0400 Respiratory rate 16 /min JAIME CARPENTER MD [facility] 12-09-2023 15:35-0400 Systolic Blood Pressure Non-Invasive 156 mm[Hg] JAIME CARPENTER MD [facility] 08-20-2023 14:57-0500 Body temperature 96.69 [degF] Magnolia Athy PA-C Work Phone: [facility] 08-20-2023 14:57-0500 Body weight 84.82 kg Magnolia Athy PA-C Work Phone: [facility] 08-20-2023 14:57-0500 Diastolic blood pressure 90 mm[Hg] Magnolia Athy PA-C Work Phone: [facility] 08-20-2023 14:57-0500 Heart rate 93 /min Magnolia Athy PA-C Work Phone: [facility] 08-20-2023 14:57-0500 Respiratory rate 20 /min Magnolia Athy PA-C Work Phone: [facility] 08-20-2023 14:57-0500 SaO2% (BldA) [Mass fraction] 100 % Magnolia Athy PA-C Work Phone: [facility] 08-20-2023 14:57-0500 Systolic blood pressure 140 mm[Hg] Magnolia Athy PA-C Work Phone: [facility] 07-31-2023 19:16-0500 Body temperature 97.2 [degF] Magnolia Athy PA-C Work Phone: [facility] 07-31-2023 19:16-0500 Body weight 84.37 kg Magnolia Athy PA-C Work Phone: [facility] 07-31-2023 19:16-0500 Diastolic blood pressure 82 mm[Hg] Magnolia Athy PA-C Work Phone: [facility] 07-31-2023 19:16-0500 Heart rate 78 /min Magnolia Athy PA-C Work Phone: [facility] 07-31-2023 19:16-0500 Respiratory rate 16 /min Magnolia Athy PA-C Work Phone: [facility] 07-31-2023 19:16-0500 SaO2% (BldA) [Mass fraction] 100 % Magnolia Athy PA-C Work Phone: [facility] 07-31-2023 19:16-0500 Systolic blood pressure 124 mm[Hg] Magnolia Athy PA-C Work Phone: [facility] 06-22-2023 08:49-[address] LUBA BAUGH DO [facility] 06-22-2023 08:49-[address] LUBA BAUGH DO [facility] 06-22-2023 08:49-0500 Diastolic Blood Pressure Non-Invasive 100 mm[Hg] DR LUBA BAUGH DO [facility] 06-22-2023 08:49-0500 Heart rate 78 /min DR LUBA BAUGH DO [facility] 06-22-2023 08:49-0500 Respiratory rate 18 /min DR LUBA BAUGH DO [facility] 06-22-2023 08:49-0500 Systolic Blood Pressure Non-Invasive 173 mm[Hg] DR LUBA BAUGH DO [facility] 06-22-2023 08:05-[address] LUBA BAUGH DO [facility] 06-22-2023 08:05-[address] LUBA BAUGH DO [facility] 06-22-2023 08:05-0500 Body temperature 97.7 [degF] DR LUBA BAUGH DO [facility] 06-22-2023 08:05-0500 Body weight 83.[address] LUBA BAUGH DO [facility] 06-22-2023 08:05-0500 Diastolic Blood Pressure Non-Invasive 101 mm[Hg] DR LUBA BAUGH DO [facility] 06-22-2023 08:05-0500 Heart rate 84 /min DR LUBA BAUGH DO [facility] 06-22-2023 08:05-0500 Respiratory rate 18 /min DR LUBA BAUGH DO [facility] 06-22-2023 08:05-0500 Systolic Blood Pressure Non-Invasive 182 mm[Hg] DR LUBA BAUGH DO [facility] 04-07-2023 04:15-0400 Heart rate 81 /min NIDAL CHOUJAA DO [facility] 04-07-2023 02:58-0400 Body height 172.7 cm NIDAL CHOUJAA DO [facility] 04-07-2023 02:58-0400 Body temperature 98.24 [degF] NIDAL CHOUJAA DO [facility] 04-07-2023 02:58-0400 Body weight 72.7 kg NIDAL CHOUJAA DO [facility] 04-07-2023 02:58-0400 Diastolic Blood Pressure Non-Invasive 93 1 NIDAL CHOUJAA DO [facility] 04-07-2023 02:58-0400 Heart rate 104 /min NIDAL CHOUJAA DO [facility] 04-07-2023 02:58-0400 Respiratory rate 20 /min NIDAL CHOUJAA DO [facility] 04-07-2023 02:58-0400 Systolic Blood Pressure Non-Invasive 149 1 NIDAL CHOUJAA DO [facility] 03-20-2023 07:36-0400 Diastolic Blood Pressure Non-Invasive 61 1 ALBIN LAMBERT MD [facility] 03-20-2023 07:36-0400 Heart rate 83 /min ALBIN LAMBERT MD [facility] 03-20-2023 07:36-0400 Reason For Taking VItal Signs ALBIN LAMBERT MD [facility] 03-20-2023 07:36-0400 Respiratory rate 16 /min ALBIN LAMBERT MD [facility] 03-20-2023 07:36-0400 Systolic Blood Pressure Non-Invasive 107 1 ALBIN LAMBERT MD [facility] 03-20-2023 06:18-0400 Body height 172.7 cm ALBIN LAMBERT MD [facility] 03-20-2023 06:18-0400 Body temperature 98.24 [degF] ALBIN LAMBERT MD [facility] 03-20-2023 06:18-0400 Body weight 72.7 kg ALBIN LAMBERT MD [facility] 03-20-2023 06:18-0400 Diastolic Blood Pressure Non-Invasive 85 1 ALBIN LAMBERT MD [facility] 03-20-2023 06:18-0400 Heart rate 97 /min ALBIN LAMBERT MD [facility] 03-20-2023 06:18-0400 Respiratory rate 20 /min ALBIN LAMBERT MD [facility] 03-20-2023 06:18-0400 Systolic Blood Pressure Non-Invasive 116 1 ALBIN LAMBERT MD [facility] 02-03-2023 15:46-0400 Body height 172.[address] Milka Schneider Work Phone: [facility] 02-03-2023 15:46-0400 Body mass index (BMI) [Ratio] 22.9 kg/m2 Dr. Milka Schneider Work Phone: [facility] 02-03-2023 15:46-0400 Body temperature 97.3 [degF] Dr. Milka Schneider Work Phone: [facility] 02-03-2023 15:46-0400 Body weight 68.[address] Milka Schneider Work Phone: [facility] 02-03-2023 15:46-0400 Diastolic blood pressure 104 mm[Hg] Dr. Milka Schneider Work Phone: [facility] 02-03-2023 15:46-0400 Heart rate 94 /min Dr. Milka Schneider Work Phone: [facility] 02-03-2023 15:46-0400 Respiratory rate 18 /min Dr. Milka Schneider Work Phone: [facility] 02-03-2023 15:46-0400 SaO2% (BldA) [Mass fraction] 100 % Dr. Milka Schneider Work Phone: [facility] 02-03-2023 15:46-0400 Systolic blood pressure 165 mm[Hg] Dr. Milka Schneider Work Phone: [facility] 01-13-2023 01:16-0400 Body height 172.[address] Milka Schneider Work Phone: [facility] 01-13-2023 01:16-0400 Body mass index (BMI) [Ratio] 21.4 kg/m2 Dr. Milka Schneider Work Phone: [facility] 01-13-2023 01:16-0400 Body temperature 98 [degF] Dr. Milka Schneider Work Phone: [facility] 01-13-2023 01:16-0400 Body weight 63.[address] Milka Schneider Work Phone: [facility] 01-13-2023 01:16-0400 Diastolic blood pressure 89 mm[Hg] Dr. Milka Schneider Work Phone: [facility] 01-13-2023 01:16-0400 Heart rate 89 /min Dr. Milka Schneider Work Phone: [facility] 01-13-2023 01:16-0400 Respiratory rate 18 /min Dr. Milka Schneider Work Phone: [facility] 01-13-2023 01:16-0400 SaO2% (BldA) [Mass fraction] 100 % Dr. Milka Schneider Work Phone: [facility] 01-13-2023 01:16-0400 Systolic blood pressure 163 mm[Hg] Dr. Milka Schneider Work Phone: [facility] 01-09-2023 14:05-0400 Body temperature 97.4 [degF] Dr. Milka Schneider Work Phone: [facility] 01-09-2023 14:05-0400 Heart rate 76 /min Dr. Milka Schneider Work Phone: [facility] 01-09-2023 14:05-0400 Respiratory rate 18 /min Dr. Milka Schneider Work Phone: [facility] 01-09-2023 14:05-0400 SaO2% (BldA) [Mass fraction] 98 % Dr. Milka Schneidre Work Phone: [facility] 01-03-2023 02:16-0400 Body height 172.[address] Milka Schneider Work Phone: [facility] 01-03-2023 02:16-0400 Body mass index (BMI) [Ratio] 23.3 kg/m2 Dr. Milka Schneider Work Phone: [facility] 01-03-2023 02:16-0400 Body temperature 96.6 [degF] Dr. Milka Schneider Work Phone: [facility] 01-03-2023 02:16-0400 Body weight 69.[address] Milka Schneider Work Phone: [facility] 01-03-2023 02:16-0400 Diastolic blood pressure 100 mm[Hg] Dr. Milka Schneider Work Phone: [facility] 01-03-2023 02:16-0400 Heart rate 100 /min Dr. Milka Schneider Work Phone: [facility] 01-03-2023 02:16-0400 Respiratory rate 18 /min Dr. Milka Schneider Work Phone: [facility] 01-03-2023 02:16-0400 SaO2% (BldA) [Mass fraction] 99 % Dr. Milka Schneider Work Phone: [facility] 01-03-2023 02:16-0400 Systolic blood pressure 189 mm[Hg] Dr. Milka Schneider Work Phone: [facility] 12-17-2022 20:29-0400 Body height 165.[address] Milka Schneider Work Phone: [facility] 12-17-2022 20:29-0400 Body mass index (BMI) [Ratio] 25.9 kg/m2 Dr. Milka Schneider Work Phone: [facility] 12-17-2022 20:29-0400 Body temperature 96.8 [degF] Dr. Milka Schneider Work Phone: [facility] 12-17-2022 20:29-0400 Body weight 70.[address] Milka Schneider Work Phone: [facility] 12-17-2022 20:29-0400 Diastolic blood pressure 101 mm[Hg] Dr. Milka Schneider Work Phone: [facility] 12-17-2022 20:29-0400 Heart rate 97 /min Dr. Milka Schneider Work Phone: [facility] 12-17-2022 20:29-0400 Respiratory rate 15 /min Dr. Milka Schneider Work Phone: [facility] 12-17-2022 20:29-0400 SaO2% (BldA) [Mass fraction] 100 % Dr. Milka Schneider Work Phone: [facility] 12-17-2022 20:29-0400 Systolic blood pressure 145 mm[Hg] Dr. Milka Schneider Work Phone: [facility] 12-11-2022 04:04-0400 Diastolic blood pressure 75 mm[Hg] Dr. Milka Schneider Work Phone: [facility] 12-11-2022 04:04-0400 Systolic blood pressure 125 mm[Hg] Dr. Milka Schneider Work Phone: [facility] 12-11-2022 03:27-0400 Heart rate 82 /min Dr. Milka Schneider Work Phone: [facility] 12-11-2022 03:27-0400 Respiratory rate 20 /min Dr. Milka Schneider Work Phone: [facility] 12-11-2022 03:27-0400 SaO2% (BldA) [Mass fraction] 95 % Dr. Milka Schneider Work Phone: [facility] 12-11-2022 02:38-0400 Body height 172.[address] Milka Schneider Work Phone: [facility] 12-11-2022 02:38-0400 Body mass index (BMI) [Ratio] 23.6 kg/m2 Dr. Milka Schneider Work Phone: [facility] 12-11-2022 02:38-0400 Body temperature 97.6 [degF] Dr. Milka Schneider Work Phone: [facility] 12-11-2022 02:38-0400 Body weight 70.[address] Milka Schneider Work Phone: [facility] 11-11-2022 09:24-0400 Blood Pressure Location NYLA GREER MD [facility] 11-11-2022 09:24-0400 Body temperature 97.88 [degF] NYLA GREER MD [facility] 11-11-2022 09:24-0400 Diastolic Blood Pressure Non-Invasive 92 1 NYLA GREER MD [facility] 11-11-2022 09:24-0400 Respiratory rate 20 /min NYLA GREER MD [facility] 11-11-2022 09:24-0400 Systolic Blood Pressure Non-Invasive 168 1 NYLA GREER MD [facility] 11-06-2022 13:56-0400 Body mass index (BMI) [Ratio] 23.7 kg/m2 Dr. Milka Schneider Work Phone: [facility] 11-06-2022 13:56-0400 Body temperature 97.8 [degF] Dr. Milka Schneider Work Phone: [facility] 11-06-2022 13:56-0400 Body weight 70.[address] Milka Schneider Work Phone: [facility] 11-06-2022 13:56-0400 Diastolic blood pressure 85 mm[Hg] Dr. Milka Schneider Work Phone: [facility] 11-06-2022 13:56-0400 Heart rate 86 /min Dr. Milka Schneider Work Phone: [facility] 11-06-2022 13:56-0400 Respiratory rate 18 /min Dr. Milka Schneider Work Phone: [facility] 11-06-2022 13:56-0400 SaO2% (BldA) [Mass fraction] 99 % Dr. Milka Schneider Work Phone: [facility] 11-06-2022 13:56-0400 Systolic blood pressure 132 mm[Hg] Dr. Milka Schneider Work Phone: [facility] 10-30-2022 11:15-0400 Body temperature 96.91 [degF] Anthony Williamson MD Work Phone: [facility] 10-30-2022 11:15-0400 Body weight 72.12 kg Anthony Williamson MD Work Phone: [facility] 10-30-2022 11:15-0400 Diastolic blood pressure 74 mm[Hg] Anthony Williamson MD Work Phone: [facility] 10-30-2022 11:15-0400 Heart rate 73 /min Anthony Williamson MD Work Phone: [facility] 10-30-2022 11:15-0400 Respiratory rate 21 /min Anthony Williamson MD Work Phone: [facility] 10-30-2022 11:15-0400 SaO2% (BldA) [Mass fraction] 99 % Anthony Williamson MD Work Phone: [facility] 10-30-2022 11:15-0400 Systolic blood pressure 118 mm[Hg] Anthony Williamson MD Work Phone: [facility] 10-27-2022 16:35-0400 Heart rate 97 /min Dr. Milka Schneider Work Phone: [facility] 10-27-2022 16:35-0400 Respiratory rate 15 /min Dr. Milka Schneider Work Phone: [facility] 10-27-2022 16:35-0400 SaO2% (BldA) [Mass fraction] 97 % Dr. Milka Schneider Work Phone: [facility] 10-27-2022 15:28-0400 Diastolic blood pressure 95 mm[Hg] Dr. Milka Schneider Work Phone: [facility] 10-27-2022 15:28-0400 Systolic blood pressure 135 mm[Hg] Dr. Milka Schneider Work Phone: [facility] 10-27-2022 15:01-0400 Body height 172.[address] Milka Schneider Work Phone: [facility] 10-27-2022 15:01-0400 Body mass index (BMI) [Ratio] 24.6 kg/m2 Dr. Milka Schneider Work Phone: [facility] 10-27-2022 15:01-0400 Body temperature 97.3 [degF] Dr. Milka Schneider Work Phone: [facility] 10-27-2022 15:01-0400 Body weight 73.[address] Milka Schneider Work Phone: [facility] 10-17-2022 14:42-0400 Body temperature 96.9 [degF] Dr. Milka Schneider Work Phone: [facility] 10-17-2022 14:42-0400 Heart rate 74 /min Dr. iMlka Schneider Work Phone: [facility] 10-17-2022 14:42-0400 Respiratory rate 16 /min Dr. Milka Schneider Work Phone: [facility] 10-17-2022 14:42-0400 SaO2% (BldA) [Mass fraction] 98 % Dr. Milka Schneider Work Phone: [facility] 10-11-2022 14:46-0400 Body temperature 97 [degF] Dr. Milka Schneider Work Phone: [facility] 10-11-2022 14:46-0400 Heart rate 75 /min Dr. Milka Schneider Work Phone: [facility] 10-11-2022 14:46-0400 Respiratory rate 16 /min Dr. Milka Shcneider Work Phone: [facility] 10-11-2022 14:46-0400 SaO2% (BldA) [Mass fraction] 98 % Dr. Milka Schneider Work Phone: [facility] 10-06-2022 18:22-0400 Body temperature 97 [degF] Dr. Milka Schnieder Work Phone: [facility] 10-06-2022 18:22-0400 Diastolic blood pressure 72 mm[Hg] Dr. Milka Schneider Work Phone: [facility] 10-06-2022 18:22-0400 Heart rate 99 /min Dr. Milka Schneider Work Phone: [facility] 10-06-2022 18:22-0400 Respiratory rate 14 /min Dr. Milka Schneider Work Phone: [facility] 10-06-2022 18:22-0400 SaO2% (BldA) [Mass fraction] 100 % Dr. Milka Schneider Work Phone: [facility] 10-06-2022 18:22-0400 Systolic blood pressure 121 mm[Hg] Dr. Milka Schneider Work Phone: [facility] 10-06-2022 17:00-0400 Inhaled oxygen flow rate 4 L/min Dr. Milka Schneider Work Phone: [facility] 10-06-2022 12:33-0400 Body height 172.[address] Milka Schneider Work Phone: [facility] 10-06-2022 12:33-0400 Body mass index (BMI) [Ratio] 25 kg/m2 Dr. Milka Schneider Work Phone: [facility] 10-06-2022 12:33-0400 Body weight 74.[address] Milka Schneider Work Phone: [facility] 09-22-2022 17:53-0400 Body temperature 98.78 [degF] EVELYN REALEXANDREFIELD DO [facility] 09-22-2022 17:53-0400 Body weight 74 kg EVELYN RESUSAN DO [facility] 09-22-2022 17:53-0400 Diastolic Blood Pressure Non-Invasive 84 1 EVELYN SOLIS DO [facility] 09-22-2022 17:53-0400 Heart rate 85 /min EVELYN SOLIS DO [facility] 09-22-2022 17:53-0400 Respiratory rate 18 /min EVELYN SOLIS DO [facility] 09-22-2022 17:53-0400 Systolic Blood Pressure Non-Invasive 153 1 EVELYN SOLIS DO [facility] 09-13-2022 07:06-0400 Diastolic blood pressure 69 mm[Hg] Dr. Milka Schneider Work Phone: [facility] 09-13-2022 07:06-0400 Heart rate 71 /min Dr. Milka Schneider Work Phone: [facility] 09-13-2022 07:06-0400 Respiratory rate 15 /min Dr. Milka Schneider Work Phone: [facility] 09-13-2022 07:06-0400 SaO2% (BldA) [Mass fraction] 98 % Dr. Milka Schneider Work Phone: [facility] 09-13-2022 07:06-0400 Systolic blood pressure 134 mm[Hg] Dr. Milka Schneider Work Phone: [facility] 09-13-2022 04:14-0400 Body height 172.[address] Milka Schneider Work Phone: [facility] 09-13-2022 04:14-0400 Body mass index (BMI) [Ratio] 11.2 kg/m2 Dr. Milka Schneider Work Phone: [facility] 09-13-2022 04:14-0400 Body temperature 97.9 [degF] Dr. Milka Schneider Work Phone: [facility] 09-13-2022 04:14-0400 Body weight 33.[address] Milka Schneider Work Phone: [facility] 08-15-2022 14:46-0500 Diastolic Blood Pressure Non-Invasive 99 1 GERSON REYNA MD [facility] 08-15-2022 14:46-0500 Heart rate 74 /min GERSON REYNA MD [facility] 08-15-2022 14:46-0500 Respiratory rate 16 /min GERSON REYNA MD [facility] 08-15-2022 14:46-0500 Systolic Blood Pressure Non-Invasive 163 1 GERSON REYNA MD [facility] 08-15-2022 13:53-0500 Body temperature 98.06 [degF] GERSON REYNA MD [facility] 08-15-2022 13:53-0500 Diastolic Blood Pressure Non-Invasive 108 1 GERSON REYNA MD [facility] 08-15-2022 13:53-0500 Heart rate 81 /min GERSON REYNA MD [facility] 08-15-2022 13:53-0500 Respiratory rate 18 /min GERSON REYNA MD [facility] 08-15-2022 13:53-0500 Systolic Blood Pressure Non-Invasive 201 1 GERSON REYNA MD [facility] 2022 14:13-0500 Body height 170.[address] Milka Schneider Work Phone: [facility] 2022 14:13-0500 Body mass index (BMI) [Ratio] 26.4 kg/m2 Dr. Milka Schneider Work Phone: [facility] 2022 14:13-0500 Body temperature 96.7 [degF] Dr. Milka Schneider Work Phone: [facility] 2022 14:13-0500 Body weight 76.[address] Milka Schneider Work Phone: [facility] 2022 14:13-0500 Diastolic blood pressure 80 mm[Hg] Dr. Milka Schneider Work Phone: [facility] 2022 14:13-0500 Heart rate 75 /min Dr. Milka Schneider Work Phone: [facility] 2022 14:13-0500 Respiratory rate 16 /min Dr. Milka Schneider Work Phone: [facility] 2022 14:13-0500 SaO2% (BldA) [Mass fraction] 99 % Dr. Milka Schneider Work Phone: [facility] 2022 14:13-0500 Systolic blood pressure 131 mm[Hg] Dr. Milka Schneider Work Phone: [facility] 06-20-2022 11:39-0500 Diastolic Blood Pressure Non-Invasive 76 1 NYLA GREER MD [facility] 06-20-2022 11:39-0500 Heart rate 73 /min NYLA GREER MD [facility] 06-20-2022 11:39-0500 Respiratory rate 16 /min NYLA GREER MD [facility] 06-20-2022 11:39-0500 Systolic Blood Pressure Non-Invasive 124 1 NYLA GREER MD [facility] 06-20-2022 10:30-0500 Diastolic Blood Pressure Non-Invasive 80 1 NYLA GREER MD [facility] 06-20-2022 10:30-0500 Heart rate 60 /min NYLA GREER MD [facility] 06-20-2022 10:30-0500 Respiratory rate 16 /min NYLA GREER MD [facility] 06-20-2022 10:30-0500 Systolic Blood Pressure Non-Invasive 141 1 NYLA GREER MD [facility] 06-20-2022 09:14-0500 Diastolic Blood Pressure Non-Invasive 80 1 NYLA GREER MD [facility] 06-20-2022 09:14-0500 Heart rate 64 /min NYLA GREER MD [facility] 06-20-2022 09:14-0500 Respiratory rate 16 /min NYLA GREER MD [facility] 06-20-2022 09:14-0500 Systolic Blood Pressure Non-Invasive 147 1 NYLA GREER MD [facility] 06-20-2022 08:38-0500 Body height 172.7 cm NYLA GREER MD [facility] 06-20-2022 08:38-0500 Body weight 75.5 kg NYLA GREER MD [facility] 05-27-2022 10:19-0500 Body temperature 97.9 [degF] Karen Praisler-Wood PRIMARY CARE COORDINATOR.SURGICAL DRESSING MAKER Work Phone: [facility] 05-27-2022 10:19-0500 Body weight 76.02 kg Karen Praisler-Wood PRIMARY CARE COORDINATOR.SURGICAL DRESSING MAKER Work Phone: [facility] 05-27-2022 10:19-0500 Diastolic blood pressure 82 mm[Hg] Karen Praisler-Wood PRIMARY CARE COORDINATOR.SURGICAL DRESSING MAKER Work Phone: [facility] 05-27-2022 10:19-0500 Heart rate 89 /min Karen Praisler-Wood PRIMARY CARE COORDINATOR.SURGICAL DRESSING MAKER Work Phone: [facility] 05-27-2022 10:19-0500 Respiratory rate 18 /min Karen Praisler-Wood PRIMARY CARE COORDINATOR.SURGICAL DRESSING MAKER Work Phone: [facility] 05-27-2022 10:19-0500 SaO2% (BldA) [Mass fraction] 100 % Karen Praisler-Wood PRIMARY CARE COORDINATOR.SURGICAL DRESSING MAKER Work Phone: [facility] 05-27-2022 10:19-0500 Systolic blood pressure 128 mm[Hg] Karen Praisler-Wood PRIMARY CARE COORDINATOR.SURGICAL DRESSING MAKER Work Phone: [facility] 05-12-2022 07:14-0500 Body height 172.[address] LINSEY FRIEDMAN MD [facility] 05-12-2022 07:14-0500 Body temperature 98.24 [degF] DR LINSEY FRIEDMAN MD [facility] 05-12-2022 07:14-0500 Body weight 75.[address] LINSEY FRIEDMAN MD [facility] 05-12-2022 07:14-0500 Diastolic Blood Pressure Non-Invasive [address] LINSEY FRIEDMAN MD [facility] 05-12-2022 07:14-0500 Heart rate 82 /min DR LINSEY FRIEDMAN MD [facility] 05-12-2022 07:14-0500 Respiratory rate 18 /min DR LINSEY FRIEDMAN MD [facility] 05-12-2022 07:14-0500 Systolic Blood Pressure Non-Invasive [address] LINSEY FRIEDMAN MD [facility] 04-30-2022 05:51-0500 Body temperature 99.14 [degF] ALBIN LAMBERT MD [facility] 04-30-2022 05:51-0500 Diastolic Blood Pressure Non-Invasive 96 1 ALBIN LAMBERT MD [facility] 04-30-2022 05:51-0500 Heart rate 104 /min ALBIN LAMBERT MD [facility] 04-30-2022 05:51-0500 Respiratory rate 18 /min ALBIN LAMBERT MD [facility] 04-30-2022 05:51-0500 Systolic Blood Pressure Non-Invasive 172 1 ALBIN LAMBERT MD [facility] 04-20-2022 08:21-0400 Diastolic blood pressure 96 mm[Hg] NYLA GREER MD [facility] 04-20-2022 08:21-0400 Heart rate 99 /min NYLA GREER MD [facility] 04-20-2022 08:21-0400 Respiratory rate 20 /min NYLA GREER MD [facility] 04-20-2022 08:21-0400 Systolic blood pressure 160 mm[Hg] NYLA GREER MD [facility] 04-20-2022 06:16-0400 Body height 172.7 cm NYLA GREER MD [facility] 04-20-2022 06:16-0400 Body temperature 97.34 [degF] NYLA GREER MD [facility] 04-20-2022 06:16-0400 Body weight 68.2 kg NYLA GREER MD [facility] 04-20-2022 06:16-0400 Diastolic blood pressure 97 mm[Hg] NYLA GREER MD [facility] 04-20-2022 06:16-0400 Heart rate 100 /min NYLA GREER MD [facility] 04-20-2022 06:16-0400 Respiratory rate 20 /min NYLA GREER MD [facility] 04-20-2022 06:16-0400 Systolic blood pressure 170 mm[Hg] NYLA GREER MD [facility] 04-06-2022 16:06-0400 Diastolic blood pressure 69 mm[Hg] ALBIN LAMBERT MD [facility] 04-06-2022 16:06-0400 Heart rate 83 /min ALBIN LAMBERT MD [facility] 04-06-2022 16:06-0400 Reason For Taking VItal Signs ALBIN LAMBERT MD [facility] 04-06-2022 16:06-0400 Respiratory rate 14 /min ALBIN LAMBERT MD [facility] 04-06-2022 16:06-0400 Systolic blood pressure 125 mm[Hg] ALBIN LAMBERT MD [facility] 04-06-2022 14:41-0400 Body temperature 98.06 [degF] ALBIN LAMBERT MD [facility] 04-06-2022 14:41-0400 Diastolic blood pressure 98 mm[Hg] ALBIN LAMBERT MD [facility] 04-06-2022 14:41-0400 Heart rate 108 /min ALBIN LAMBERT MD [facility] 04-06-2022 14:41-0400 Respiratory rate 22 /min ALBIN LAMBERT MD [facility] 04-06-2022 14:41-0400 Systolic blood pressure 187 mm[Hg] ALBIN LAMBERT MD [facility] 03-29-2022 05:00-0400 Diastolic blood pressure 85 mm[Hg] CRISTAL COLLINSKA DO [facility] 03-29-2022 05:00-0400 Heart rate 95 /min CRISTAL COLLINSKA DO [facility] 03-29-2022 05:00-0400 Respiratory rate 18 /min CRISTAL COLLINSKA DO [facility] 03-29-2022 05:00-0400 Systolic blood pressure 148 mm[Hg] CRISTAL DURESKA DO [facility] 03-29-2022 03:47-0400 Body height 172.7 cm CRISTAL DURESKA DO [facility] 03-29-2022 03:47-0400 Body temperature 97.88 [degF] CRISTAL DURESKA DO [facility] 03-29-2022 03:47-0400 Body weight 70.5 kg CRISTAL DURESKA DO [facility] 03-29-2022 03:47-0400 Diastolic blood pressure 93 mm[Hg] CRISTAL DURESKA DO [facility] 03-29-2022 03:47-0400 Heart rate 111 /min CRISTAL DURESKA DO [facility] 03-29-2022 03:47-0400 Respiratory rate 20 /min CRISTAL CACERESESKA DO [facility] 03-29-2022 03:47-0400 Systolic blood pressure 162 mm[Hg] CRISTAL DURESKA DO [facility] 03-10-2022 14:54-0400 Body height 170.[address] Milka Schneider Work Phone: [facility] Work Phone: 03-10-2022 14:54-0400 Body mass index (BMI) [Ratio] 24.3 kg/m2 Dr. Milka Schneider Work Phone: [facility] Work Phone: 03-10-2022 14:54-0400 Body temperature 97.4 [degF] Dr. Milka Schneider Work Phone: [facility] Work Phone: 03-10-2022 14:54-0400 Body weight 70.[address] Milka Schneider Work Phone: [facility] Work Phone: 03-10-2022 14:54-0400 Diastolic blood pressure 75 mm[Hg] Dr. Milka Schneider Work Phone: [facility] Work Phone: 03-10-2022 14:54-0400 Heart rate 64 /min Dr. Milka Schneider Work Phone: [facility] Work Phone: 03-10-2022 14:54-0400 Respiratory rate 16 /min Dr. Milka Schneider Work Phone: [facility] Work Phone: 03-10-2022 14:54-0400 SaO2% (BldA) [Mass fraction] 97 % Dr. Milka Schneider Work Phone: [facility] Work Phone: 03-10-2022 14:54-0400 Systolic blood pressure 115 mm[Hg] Dr. Milka Schneider Work Phone: [facility] Work Phone: 03-02-2022 01:15-0400 Body height 170.[address] Milka Schneider Work Phone: [facility] Work Phone: 03-02-2022 01:15-0400 Body mass index (BMI) [Ratio] 24 kg/m2 Dr. Milka Schneider Work Phone: [facility] Work Phone: 03-02-2022 01:15-0400 Body temperature 97.8 [degF] Dr. Milka Schneider Work Phone: [facility] Work Phone: 03-02-2022 01:15-0400 Body weight 69.[address] Milka Schneider Work Phone: [facility] Work Phone: 03-02-2022 01:15-0400 Diastolic blood pressure 88 mm[Hg] Dr. Milka Schneider Work Phone: [facility] Work Phone: 03-02-2022 01:15-0400 Heart rate 90 /min Dr. Milka Schneider Work Phone: [facility] Work Phone: 03-02-2022 01:15-0400 Respiratory rate 17 /min Dr. Milka Schneider Work Phone: [facility] Work Phone: 03-02-2022 01:15-0400 SaO2% (BldA) [Mass fraction] 100 % Dr. Milka Schneider Work Phone: [facility] Work Phone: 03-02-2022 01:15-0400 Systolic blood pressure 162 mm[Hg] Dr. Milka Schneider Work Phone: [facility] Work Phone: 02-12-2022 05:27-0400 Diastolic blood pressure 87 mm[Hg] Dr. Milka Schneider Work Phone: [facility] Work Phone: 02-12-2022 05:27-0400 Heart rate 83 /min Dr. Milka Schneider Work Phone: [facility] Work Phone: 02-12-2022 05:27-0400 Respiratory rate 15 /min Dr. Milka Schneider Work Phone: [facility] Work Phone: 02-12-2022 05:27-0400 SaO2% (BldA) [Mass fraction] 99 % Dr. Milka Schneider Work Phone: [facility] Work Phone: 02-12-2022 05:27-0400 Systolic blood pressure 147 mm[Hg] Dr. Milka Schneider Work Phone: [facility] Work Phone: 02-12-2022 04:26-0400 Body height 175.[address] Milka Schneider Work Phone: [facility] Work Phone: 02-12-2022 04:26-0400 Body mass index (BMI) [Ratio] 22.4 kg/m2 Dr. Milka Schneider Work Phone: [facility] Work Phone: 02-12-2022 04:26-0400 Body temperature 98 [degF] Dr. Milka Schneider Work Phone: [facility] Work Phone: 02-12-2022 04:26-0400 Body weight 68.[address] Milka Schneider Work Phone: [facility] Work Phone: 12-09-2021 15:01-0400 Body temperature 98 [degF] Dr. Milka Schneider Work Phone: [facility] Work Phone: 12-09-2021 15:01-0400 Heart rate 66 /min Dr. Milka Schneider Work Phone: [facility] Work Phone: 12-09-2021 15:01-0400 Respiratory rate 16 /min Dr. Milka Schneider Work Phone: [facility] Work Phone: 12-09-2021 15:01-0400 SaO2% (BldA) [Mass fraction] 98 % Dr. Milka Schneider Work Phone: [facility] Work Phone: 12-02-2021 11:48-0400 Body mass index (BMI) [Ratio] 20.4 kg/m2 Dr. Milka Schneider Work Phone: [facility] Work Phone: 12-02-2021 11:48-0400 Body temperature 97.8 [degF] Dr. Milka Schneider Work Phone: [facility] Work Phone: 12-02-2021 11:48-0400 Body weight 60.[address] Milka Schneider Work Phone: [facility] Work Phone: 12-02-2021 11:48-0400 Diastolic blood pressure 78 mm[Hg] Dr. Milka Schneider Work Phone: [facility] Work Phone: 12-02-2021 11:48-0400 Heart rate 88 /min Dr. Milka Schneider Work Phone: [facility] Work Phone: 12-02-2021 11:48-0400 Respiratory rate 16 /min Dr. Milka Schneider Work Phone: [facility] Work Phone: 12-02-2021 11:48-0400 SaO2% (BldA) [Mass fraction] 97 % Dr. Milka Schneider Work Phone: [facility] Work Phone: 12-02-2021 11:48-0400 Systolic blood pressure 125 mm[Hg] Dr. Milka Schneider Work Phone: [facility] Work Phone: 11-11-2021 14:50-0400 Body temperature 96.6 [degF] Dr. Milka Schneider Work Phone: [facility] Work Phone: 11-11-2021 14:50-0400 Heart rate 65 /min Dr. Milka Schneider Work Phone: [facility] Work Phone: 11-11-2021 14:50-0400 Respiratory rate 16 /min Dr. Milka Schneider Work Phone: [facility] Work Phone: 11-11-2021 14:50-0400 SaO2% (BldA) [Mass fraction] 97 % Dr. Milka Schneider Work Phone: [facility] Work Phone: 11-04-2021 14:53-0400 Body temperature 97.6 [degF] Dr. Milka Schneider Work Phone: [facility] Work Phone: 11-04-2021 14:53-0400 Heart rate 75 /min Dr. Milka Schneider Work Phone: [facility] Work Phone: 11-04-2021 14:53-0400 Respiratory rate 16 /min Dr. Milka Schneider Work Phone: [facility] Work Phone: 11-04-2021 14:53-0400 SaO2% (BldA) [Mass fraction] 99 % Dr. Milka Schneider Work Phone: [facility] Work Phone: 10-20-2021 15:38-0400 Body temperature 98.2 [degF] Dr. Milka Schneider Work Phone: [facility] Work Phone: 10-20-2021 15:38-0400 Heart rate 86 /min Dr. Milka Schneider Work Phone: [facility] Work Phone: 10-20-2021 15:38-0400 Respiratory rate 16 /min Dr. Milka Schneider Work Phone: [facility] Work Phone: 10-20-2021 15:38-0400 SaO2% (BldA) [Mass fraction] 98 % Dr. Milka Schneider Work Phone: [facility] Work Phone: 10-05-2021 14:58-0400 Body temperature 98.1 [degF] Dr. Milka Schneider Work Phone: [facility] Work Phone: 10-05-2021 14:58-0400 Heart rate 86 /min Dr. Milka Schneider Work Phone: [facility] Work Phone: 10-05-2021 14:58-0400 Respiratory rate 17 /min Dr. Milka Schneider Work Phone: [facility] Work Phone: 10-05-2021 14:58-0400 SaO2% (BldA) [Mass fraction] 98 % Dr. Milka Schneider Work Phone: [facility] Work Phone: 10-03-2021 23:42-0400 Diastolic blood pressure 74 mm[Hg] Dr. Milka Schneider Work Phone: [facility] Work Phone: 10-03-2021 23:42-0400 Heart rate 78 /min Dr. Milka Schneider Work Phone: [facility] Work Phone: 10-03-2021 23:42-0400 Respiratory rate 17 /min Dr. Milka Schneider Work Phone: [facility] Work Phone: 10-03-2021 23:42-0400 Systolic blood pressure 132 mm[Hg] Dr. Milka Schneider Work Phone: [facility] Work Phone: 10-03-2021 22:48-0400 Body height 172.[address] Milka Schneider Work Phone: [facility] Work Phone: 10-03-2021 22:48-0400 Body mass index (BMI) [Ratio] 19.8 kg/m2 Dr. Milka Schneider Work Phone: [facility] Work Phone: 10-03-2021 22:48-0400 Body temperature 96.7 [degF] Dr. Milka Schneider Work Phone: [facility] Work Phone: 10-03-2021 22:48-0400 Body weight 58.[address] Milka Schneider Work Phone: [facility] Work Phone: 10-03-2021 22:48-0400 SaO2% (BldA) [Mass fraction] 99 % Dr. Milka Schneider Work Phone: [facility] Work Phone: 09-27-2021 14:59-0400 Body temperature 97.6 [degF] Dr. Milka Schneider Work Phone: [facility] Work Phone: 09-27-2021 14:59-0400 Heart rate 98 /min Dr. Milka Schneider Work Phone: [facility] Work Phone: 09-27-2021 14:59-0400 Respiratory rate 16 /min Dr. Milka Schneider Work Phone: [facility] Work Phone: 09-27-2021 14:59-0400 SaO2% (BldA) [Mass fraction] 98 % Dr. Milka Schneider Work Phone: [facility] Work Phone: 09-20-2021 13:57-0400 Body temperature 97.1 [degF] Dr. Milka Schneider Work Phone: [facility] Work Phone: 09-20-2021 13:57-0400 Heart rate 90 /min Dr. Milka Schneider Work Phone: [facility] Work Phone: 09-20-2021 13:57-0400 Respiratory rate 16 /min Dr. Milka Schneider Work Phone: [facility] Work Phone: 09-20-2021 13:57-0400 SaO2% (BldA) [Mass fraction] 98 % Dr. Milka Schneider Work Phone: [facility] Work Phone: 09-06-2021 14:29-0400 Body temperature 97 [degF] Dr. Milka Schneider Work Phone: [facility] Work Phone: 09-06-2021 14:29-0400 Heart rate 83 /min Dr. Milka Schneider Work Phone: [facility] Work Phone: 09-06-2021 14:29-0400 Respiratory rate 16 /min Dr. Milka Schneider Work Phone: [facility] Work Phone: 09-06-2021 14:29-0400 SaO2% (BldA) [Mass fraction] 97 % Dr. Milka Schneider Work Phone: [facility] Work Phone: 09-01-2021 15:48-0400 Body temperature 97.8 [degF] Dr. Milka Schneider Work Phone: [facility] Work Phone: 09-01-2021 15:48-0400 Heart rate 83 /min Dr. Milka Schneider Work Phone: [facility] Work Phone: 09-01-2021 15:48-0400 Respiratory rate 16 /min Dr. Milka Schneider Work Phone: [facility] Work Phone: 09-01-2021 15:48-0400 SaO2% (BldA) [Mass fraction] 98 % Dr. Milka Schneider Work Phone: [facility] Work Phone: 08-26-2021 10:14-0500 Body temperature 97.1 [degF] Dr. Milka Schneider Work Phone: [facility] Work Phone: 08-26-2021 10:14-0500 Heart rate 76 /min Dr. Milka Schneider Work Phone: [facility] Work Phone: 08-26-2021 10:14-0500 Respiratory rate 16 /min Dr. Milka Schneider Work Phone: [facility] Work Phone: 08-26-2021 10:14-0500 SaO2% (BldA) [Mass fraction] 97 % Dr. Milka Schneider Work Phone: [facility] Work Phone: 08-24-2021 14:53-0500 Body temperature 97 [degF] Dr. Milka Schneider Work Phone: [facility] Work Phone: 08-24-2021 14:53-0500 Heart rate 82 /min Dr. Milka Schnieder Work Phone: [facility] Work Phone: 08-24-2021 14:53-0500 Respiratory rate 16 /min Dr. Milka Schneider Work Phone: [facility] Work Phone: 08-24-2021 14:53-0500 SaO2% (BldA) [Mass fraction] 98 % Dr. Milka Schneider Work Phone: [facility] Work Phone: 08-15-2021 15:07-0500 Body temperature 97.2 [degF] Dr. Milka Schneider Work Phone: [facility] Work Phone: 08-15-2021 15:07-0500 Heart rate 90 /min Dr. Milka Schneider Work Phone: [facility] Work Phone: 08-15-2021 15:07-0500 Respiratory rate 16 /min Dr. Milka Schneider Work Phone: [facility] Work Phone: 08-15-2021 15:07-0500 SaO2% (BldA) [Mass fraction] 98 % Dr. Milka Schneider Work Phone: [facility] Work Phone: 08-08-2021 15:02-0500 Body temperature 98.1 [degF] Dr. Milka Schneider Work Phone: [facility] Work Phone: 08-08-2021 15:02-0500 Heart rate 92 /min Dr. Milka Schneider Work Phone: [facility] Work Phone: 08-08-2021 15:02-0500 Respiratory rate 16 /min Dr. Milka Schneider Work Phone: [facility] Work Phone: 08-08-2021 15:02-0500 SaO2% (BldA) [Mass fraction] 98 % Dr. Milka Schneider Work Phone: [facility] Work Phone: 08-04-2021 16:30-0500 Body temperature 98.9 [degF] Dr. Milka Schneider Work Phone: [facility] Work Phone: 08-04-2021 16:30-0500 Diastolic blood pressure 66 mm[Hg] Dr. Milka Schneider Work Phone: [facility] Work Phone: 08-04-2021 16:30-0500 Heart rate 70 /min Dr. Milka Schneider Work Phone: [facility] Work Phone: 08-04-2021 16:30-0500 Respiratory rate 16 /min Dr. Milka Schneider Work Phone: [facility] Work Phone: 08-04-2021 16:30-0500 SaO2% (BldA) [Mass fraction] 98 % Dr. Milka Schneider Work Phone: [facility] Work Phone: 08-04-2021 16:30-0500 Systolic blood pressure 108 mm[Hg] Dr. Milka Schneider Work Phone: [facility] Work Phone: 08-03-2021 15:16-0500 Body height 172.[address] Milka Schneider Work Phone: [facility] Work Phone: 08-03-2021 15:16-0500 Body mass index (BMI) [Ratio] 21.7 kg/m2 Dr. Milka Schneider Work Phone: [facility] Work Phone: 08-03-2021 15:16-0500 Body weight [address] Milka Schneider Work Phone: [facility] Work Phone: 07-26-2021 14:12-0500 Body temperature 97.6 [degF] Dr. Milka Schneider Work Phone: [facility] Work Phone: 07-26-2021 14:12-0500 Heart rate 76 /min Dr. Milka Schneider Work Phone: [facility] Work Phone: 07-26-2021 14:12-0500 Respiratory rate 16 /min Dr. Milka Schneider Work Phone: [facility] Work Phone: 07-26-2021 14:12-0500 SaO2% (BldA) [Mass fraction] 96 % Dr. Milka Schneider Work Phone: [facility] Work Phone: 05-20-2021 21:13-0500 Diastolic blood pressure 85 mm[Hg] Dr. Milka Schneider Work Phone: [facility] Work Phone: 05-20-2021 21:13-0500 Heart rate 75 /min Dr. Milka Schneider Work Phone: [facility] Work Phone: 05-20-2021 21:13-0500 Respiratory rate 16 /min Dr. Milka Schneider Work Phone: [facility] Work Phone: 05-20-2021 21:13-0500 Systolic blood pressure 150 mm[Hg] Dr. Milka Schneider Work Phone: [facility] Work Phone: 05-20-2021 19:26-0500 Body mass index (BMI) [Ratio] 24.5 kg/m2 Dr. Milka Schneider Work Phone: [facility] Work Phone: 05-20-2021 19:26-0500 Body temperature 97.6 [degF] Dr. Milka Schneider Work Phone: [facility] Work Phone: 05-20-2021 19:26-0500 Body weight 73.[address] Milka Schneider Work Phone: [facility] Work Phone: 05-20-2021 19:26-0500 SaO2% (BldA) [Mass fraction] 100 % Dr. Milka Schneider Work Phone: [facility] Work Phone: Encounters Encounter Date Encounter Type Care Provider Facility Start: 10-06-2024 End: 10-06-2024 ambulatory Samir Carranza Facility:[facility] [place] Start: 10-01-2024 End: 10-01-2024 ambulatory Samir Carranza Facility:[facility] [place] Start: 10-01-2024 End: 10-01-2024 ambulatory Samir Carranza Facility:[facility] Start: 09-27-2024 End: 09-27-2024 Letter encounter Eric Whitfield MD Work Phone: [facility] Start: 09-16-2024 End: 09-16-2024 ambulatory Samir Couch Facility:[facility] [place] Start: 09-02-2024 End: 09-02-2024 ambulatory MILKA SCHNEIDER Facility:[facility] Start: 09-02-2024 End: 09-02-2024 Patient encounter procedure Emile Bentley APRN.CNP Work Phone: [facility] Comment on above: Rhinosinusitis (Prim whit Dx) Start: 08-18-2024 End: 08-18-2024 ambulatory Milka Schneider Facility:[facility] Start: 07-14-2024 End: 07-14-2024 ambulatory [facility] Facility:[facility] Start: 07-09-2024 End: 07-09-2024 ambulatory [facility] Facility:[facility] Start: 06-17-2024 End: [facility] Start: 05-06-2024 End: 05-06-2024 ambulatory Samir Couch Facility:[facility] [place] Start: 04-08-2024 End: 04-08-2024 Telephone encounter Anthony Williamson MD Work Phone: [facility] Comment on above: Results Start: 04-07-2024 End: 04-07-2024 Subsequent hospital visit by physician [facility] Work Phone: Radiology Comment on above: Acute right ankle pa in [M25.571] Start: 04-07-2024 End: 04-07-2024 ambulatory MILKA Dixie [facility] Facility:[facility] Start: 04-07-2024 End: 04-07-2024 Patient encounter procedure Araceli Burns APRN.SURGICAL DRESSING MAKER Work Phone: [facility] Comment on above: Acute right ankle pa in (Primary Dx) Start: 03-02-2024 End: 03-02-2024 ambulatory MILKA [facility] Facility:[facility] Start: 03-02-2024 End: 03-02-2024 Patient encounter procedure Emile Bentley APRN.SURGICAL DRESSING MAKER Work Phone: [facility] Comment on above: Sore throat (Primary Dx); Respiratory infection Start: 01-28-2024 End: 01-28-2024 ambulatory Samir Couch Facility:[facility] [place] Start: 01-26-2024 End: 01-26-2024 Emergency department patient visit EVELYN WILL MACIAS [facility] Start: 01-24-2024 End: 01-24-2024 ambulatory [facility] Facility:[facility] Start: 12-09-2023 End: 12-09-2023 Emergency department patient visit JAIME CARPENTER MD [facility] Start: 12-04-2023 End: 12-04-2023 chyna Schneider Facility:[facility] Start: 08-20-2023 End: 08-20-2023 Subsequent hospital visit by physician [facility] Work Phone: Radiology Comment on above: Neck pain [M54.2] Start: 08-20-2023 End: 08-20-2023 Patient encounter procedure Magnolia Moy Lindsey Shellguera PA-C Work Phone: [facility] Comment on above: Neck pain (Primary D x) Start: 07-31-2023 End: 07-31-2023 Subsequent hospital visit by physician [facility] Work Phone: Radiology Comment on above: Finger injury, left, initial encounter [S69.92XA] Start: 07-31-2023 End: 07-31-2023 Patient encounter procedure Magnolia Moy Opalguera PA-C Work Phone: [facility] Comment on above: Finger injury, left, initial encounter (Primary Dx) Start: 06-22-2023 End: 06-22-2023 Emergency department patient visit DR LUBA BAUGH DO [facility] Start: 04-07-2023 End: 04-07-2023 Emergency department patient visit KARMA GE DO [facility] Start: 03-20-2023 End: 03-20-2023 Emergency department patient visit ALBIN LAMBERT MD [facility] Start: 02-03-2023 End: 02-03-2023 Emergency department patient visit Dr. Milka Schneider Work Phone: [facility] Work Phone: Start: 01-13-2023 End: 01-13-2023 Emergency department patient [facility]: Start: 01-09-2023 End: 01-09-[address] Milka Schneider Work Phone: [facility] Work Phone: Start: 01-03-2023 End: 01-03-2023 Emergency department patient visit [facility] Work [facility]: Start: 12-17-2022 End: 12-17-2022 Emergency department patient visit Dr. [facility] Work [facility]: Start: 12-11-2022 End: 12-11-2022 Emergency department patient visit [facility] Start: 12-03-2022 ambulatory Norma Connell RN NURSE SCRUBBER OPERATOR Comment on above: Mouth/Lip Problem Start: 11-11-2022 End: 11-11-2022 Emergency department patient visit NYLA GREER MD [facility] Start: 11-06-2022 End: 11-06-[address] Milka Schneider Work Phone: [facility] Start: 10-30-2022 End: 10-30-2022 Patient encounter procedure Anthony Williamson MD Work Phone: [facility] Comment on above: Acute non-recurrent sinusitis, unspecified location (Primary Dx) Start: 10-27-2022 End: 10-27-2022 Emergency department patient visit Dr. Milka Schneider Work Phone: [facility] Start: 10-17-2022 End: 10-17-[address] Milka Schneider Work Phone: [facility] Start: 10-11-2022 End: 10-11-[address] Milka Schneider Work Phone: [facility] Start: 10-06-2022 Non-patient / Non-visit Dr. Dain Schneider Work Phone: [facility] Start: 10-06-2022 End: 10-06-2022 Admission to same day surgery center Dr. Milka Schneider Work Phone: [facility] Start: 10-06-2022 End: 10-06-[address] Milka Schneider Work Phone: [facility] Work Phone: Start: 10-03-2022 End: 10-03-2022 Non-patient / Non-visit Dr. Milka Schneider Work Phone: [facility] Start: 09-24-2022 Letter encounter Eric Whitfield MD Work Phone: [facility] Start: 09-22-2022 End: 09-22-2022 Emergency department patient visit EVELYNCODEY SOLIS [facility] Start: 09-13-2022 End: 09-13-2022 Emergency department patient visit Dr. Milka Schneider Work Phone: [facility] Start: 08-17-2022 End: 08-17-[address] Milka Schneider Work Phone: [facility] Work Phone: Start: 08-17-2022 End: 08-17-[address] Milka Schneider Work Phone: [facility] Start: 08-15-2022 End: 08-15-2022 Emergency department patient visit GERSON REYNA MD [facility] Start: 08-04-2022 End: 08-04-[address] Milka Schneider Work Phone: [facility] Start: 06-30-2022 End: 06-30-[address] Milka Schneider Work Phone: [facility] Work Phone: Start: 06-30-2022 End: 06-30-[address] Milka Schneider Work Phone: [facility] Start: 06-26-2022 Letter encounter Eric Whitfield MD Work Phone: [facility] Start: 2022 End: [address] Milka Shcneider Work Phone: [facility] Start: 06-20-2022 End: 06-20-2022 Emergency department patient visit NYLA GREER MD [facility] Start: 05-27-2022 End: 05-27-2022 Patient encounter procedure Karen Quiroga APRN.CNP Work Phone: [facility] Comment on above: Skin infection (Prim whit Dx) Start: 05-15-2022 End: 05-15-2022 Emergency department patient visit MILKA SCHNEIDER [facility] Start: 05-12-2022 End: 05-12-2022 Emergency department patient visit DR LINSEY FRIEDMAN MD [facility] Start: 04-30-2022 End: 04-30-2022 Emergency department patient visit ALBIN LAMBERT MD [facility] Start: 04-20-2022 End: 04-20-2022 Emergency department patient visit NYLA GREER MD [facility] Start: 04-06-2022 End: 04-06-2022 Emergency department patient visit ALBIN LAMBERT MD [facility] Start: 04-03-2022 End: 04-03-[address] Milka Schneider Work Phone: [facility] Work Phone: Start: 04-03-2022 End: 04-03-[address] Milka Schneider Work Phone: [facility] Start: 03-31-2022 End: 03-31-[address] Milka Schneider Work Phone: [facility] Start: 03-29-2022 End: 03-29-2022 Emergency department patient visit CRISTAL BOWEN DO [facility] Start: 03-10-2022 End: 03-10-[address] Milka Schneider Work Phone: [facility] Start: 03-03-2022 End: 03-03-[address] Milka Schneider Work Phone: [facility] Work Phone: Start: 03-03-2022 End: 03-03-[address] Milka Schneider Work Phone: [facility] Start: 03-02-2022 End: 03-02-2022 Emergency department patient visit Dr. Milka Schneider Work Phone: [facility] Start: 02-12-2022 End: 02-12-2022 Emergency department patient visit Dr. Milka Schneider Work Phone: [facility] Start: 12-09-2021 End: 12-09-[address] Milka Schneider Work Phone: [facility] Start: 12-02-2021 End: 12-02-[address] Milka Schneider Work Phone: [facility] Start: 11-11-2021 End: 11-11-[address] Milka Schneider Work Phone: [facility] Start: 11-04-2021 End: 11-04-[address] Milka Schneider Work Phone: [facility] Start: 10-20-2021 End: 10-20-[address] Milka Schneider Work Phone: [facility] Start: 10-05-2021 End: 10-05-[address] Milka Schneider Work Phone: [facility] Start: 10-04-2021 Non-patient / Non-visit Dr. Dain Schneider Work Phone: [facility] Start: 10-04-2021 End: 10-04-[address] Milka Schneider Work Phone: [facility] Start: 10-03-2021 End: 10-03-2021 Emergency department patient visit Dr. Milka Schneider Work Phone: [facility] Start: 09-27-2021 End: 09-27-[address] Milka Schneider Work Phone: [facility] Start: 09-20-2021 End: 09-20-[address] Milka Schneider Work Phone: [facility] Start: 09-13-2021 End: 09-13-[address] Milka Schneider Work Phone: [facility] Start: 09-06-2021 End: 09-06-[address] Milka Schneider Work Phone: [facility] Start: 09-01-2021 End: 09-01-[address] Milka Schneider Work Phone: [facility]Laboratory, Specimen Start: 09-01-2021 End: 09-01-[address] Milka Schneider Work Phone: [facility] Start: 08-26-2021 End: 08-26-[address] Milka Schneider Work Phone: [facility] Start: 08-24-2021 End: 08-24-[address] Milka Schneider Work Phone: [facility] Start: 08-15-2021 End: 08-15-[address] Milka Schneider Work Phone: [facility] Start: 08-08-2021 End: 08-08-[address] Milka Schneider Work Phone: [facility] Start: 08-04-2021 Non-patient / Non-visit Dr. Dain Schneider Work Phone: [facility] Start: 08-03-2021 End: 08-04-2021 Evaluation and management of inpatient Dr. Milka Schneider Work Phone: [facility] 3 Start: 07-26-2021 End: 07-26-[address] Milka Schneider Work Phone: [facility] Start: 05-20-2021 End: 05-20-2021 Emergency department patient visit Dr. Milka Schneider Work Phone: [facility] Start: 05-28-2017 Ambulatory [facility] Facility:[facility] Procedures Date Procedure Procedure Detail Performing Clinician Start: 04-07-2024 Radex ankle complete minimum 3 views Araceli Burns APRN.SURGICAL DRESSING MAKER Work Phone: Start: 03-02-2024 STREP A MOLECULAR (POC) Emile Bentley APRN.SURGICAL DRESSING MAKER Work Phone: Start: 08-20-2023 Radex spine cervical 4 or 5 views Magnolia Koenig PA-C Work Phone: Start: 07-31-2023 Radex fingr minimum 2 views Magnolia Koenig PA-C Work Phone: Start: 10-27-2022 Plain chest X-ray Dr. Eric Schneider Work Phone: Start: 10-06-[address] Milka Schneider Work Phone: Start: 10-06-[address] Dain Schneider Work Phone: Start: 10-06-[address] Dain Schneider Work Phone: Start: 08-04-[address] Milka Schneider Work Phone: Start: 05-15-2022 Urinalysis MILKA COX Comment on above: Result Comment: URIN ALYSIS Performed By: #### [id number] #### [facility],[address] [place] [address] Start: 03-31-2022 Bilateral mammography Phoenix Schneider Work Phone: Start: 03-31-[address] Milka Schneider Work Phone: Start: 03-02-2022 Computed tomography of abdomen and pelvis with intravenous contrast Dr. Milka Schneider Work Phone: Start: 02-12-2022 Plain chest X-ray Dr. Eric Schneider Work Phone: Start: 09-01-[address] Milka Schneider Work Phone: Start: 09-01-2021 Investigation of transfusion reaction Dr. Milka Schneider Work Phone: Start: 09-01-2021 Microbial culture, routine Dr. Milka Schneider Work Phone: Start: 08-01-2021 SARS-CoV-2 Antigen (Rapid) Dr. Milka Schneider Work Phone: Start: 05-20-2021 Plain chest X-ray Dr. Eric Schneider Work Phone: Start: 09-24-2015 Mammography Karen Edwards APRN.CNP Work Phone: Start: 2013 Lipid 1996 panel - S mukesh or Plasma Magnolia Liberty PA-C Work Phone: Anaerobic microbial culture Dr. Milka Schneider Work Phone: Arthroscopy of knee CRISTAL DEMOND GARY DO Comment on above: Left knee Cholecystectomy CRISTAL SARI Byrd DO Decompression of med nilay nerve CRISTAL NICKIDIANELYS DO Comment on above: Right Fungus stain method Dr. Rocio Schneider Work Phone: History of mastectomy History of breast lump/mass excision Dr. Milka Schneider Work Phone: History of reduction of breast History of bilateral breast reduction surgery Dr. Milka Schneider Work Phone: Injection - action (qualifier value) CRISTALLLOYD BOWEN DO Comment on above: botox Investigation of transfusion reaction Dr. Milka Schneider Work Phone: Ligation of fallopian tube J CALIXTO BOWEN DO Microbial culture, routine D cassi Schneider Work Phone: Mycology culture Dr. Milka Schneider Work Phone: Septoplasty/submucou s resecj w/wo cartilage grf CRISTAL BOWEN DO Plan of Treatment Date Care Activity Detail Author Start: 03-11-2026 Screening for malignant neoplasm of colon [facility] Start: 12-16-2025 Tetanus vaccination Tetanus (Td or Tdap) Booster [facility] Start: 12-16-2025 Urine microalbumin profile DTaP,Tdap,Td Vaccine (3 - Td or Tdap) [facility] Start: 02-17-2024 Covid-19 Vaccine () Covid-19 Vaccine () [facility] Start: 02-17-2024 Covid-19 Vaccine ( season) Covid-19 Vaccine ( season) [facility] Start: 02-17-2024 Influenza vaccination Influenza Vaccine (#1) [facility] Start: 06-18-2023 Depression Assessment Depression Assessment [facility] Start: 02-25-2023 Urine microalbumin profile DTAP,TDAP,TD (2 - Td or Tdap) [facility] Start: 02-16-2023 Influenza vaccination [facility] Start: 10-06-2022 Patient discharge [facility] Start: 10-06-2022 Anes integ extremities ant trunk & perineum nos ANESTH SKIN EXT/PER/ATRUNK [facility] Start: 10-06-2022 Exc cyst/aberrant breast tissue open 1/> lesion REMOVAL OF BREAST LESION [facility] Start: 2022 Measurement of occult blood in single stool specimen FIT [facility] Start: 2022 Pneumococcal vaccination Pneumococcal Vaccine(s) (50+ yrs) (1 of 1 - PCV) [facility] Start: 2022 Pneumococcal Vaccine: 50+ (1 of 1 - PCV) Pneumococcal Vaccine: 50+ (1 of 1 - PCV) [facility] Start: 2022 Screening for malignant neoplasm of colon CRC Screening [facility] Start: 2022 Shingles (RZV) Vaccine (1 of 2) Shingles (RZV) Vaccine (1 of 2) [facility] Start: 2022 SHINGRIX VACCINE (1 of 2) SHINGRIX VACCINE (1 of 2) [facility] Start: 06-18-2022 DEPRESSION ASSESSMENT DEPRESSION ASSESSMENT [facility] Start: 03-31-2022 Digital breast tomosynthesis bilateral BREAST TOMOSYNTHESIS BI [facility] Start: 03-18-2022 Influenza vaccination Influenza Vaccine (#1) [facility] Start: 02-16-2022 Influenza vaccination INFLUENZA (#1) [facility] Start: 02-12-2022 [facility] Work Phone: Start: 08-03-2021 Anesthesia reconstruction breast ANESTH SURGERY OF BREAST [facility] Work Phone: Start: 08-03-2021 Reduction mammaplasty BREAST REDUCTION [facility] Work Phone: Start: 06-18-2021 DEPRESSION ASSESSMENT DEPRESSION ASSESSMENT [facility] Start: 08-03-2019 Diabetes Screening Diabetes Screening [facility] Start: 09-15-2018 DIABETES SCREEN DIABETES SCREEN [facility] Start: 09-15-2018 Diabetes Screening Diabetes Screening [facility] Start: 2018 Lipid panel Lipid Screening [facility] Start: 2018 LIPID SCREEN LIPID SCREEN [facility] Start: 02-13-2018 HPV TESTING HPV TESTING [facility] Start: 02-13-2018 PAP TESTING PAP TESTING [facility] Start: 02-13-2018 Screening for malignant neoplasm of cervix [facility] Start: 08-03-2017 Basic metabolic 2000 panel - Serum or Plasma Basic Metabolic Panel [facility] Start: 08-03-2017 Creatinine measurement [facility] Start: 2017 Cholesterol [Mass/volume] in Serum or Plasma Cholesterol [facility] Start: 2017 COLOGUARD (FIT-DNA) COLOGUARD (FIT-DNA) [facility] Start: 2017 Colonoscopy COLONOSCOPY [facility] Start: 2017 COLORECTAL CANCER SCREENING COLORECTAL CANCER SCREENING [facility] Start: [address] COLONOGRAPHY [facility] Start: 2017 FECAL OCCULT BLOOD FECAL OCCULT BLOOD [facility] Start: 2017 Lipid panel Cholesterol [facility] Start: 2017 Screening for malignant neoplasm of colon [facility] Start: 2017 SIGMOIDOSCOPY SIGMOIDOSCOPY [facility] Start: 09-23-2016 Mammography MAMMOGRAM [facility] Start: 09-23-2016 Screening for malignant neoplasm of breast Mammogram Screening [facility] Start: 2012 Screening for malignant neoplasm of breast Mammography [facility] Start: 1993 Screening for malignant neoplasm of cervix Pap Smear [facility] Start: 1991 Hepatitis A (HAV) Vaccine (optional start 19+ years) Hepatitis A (HAV) Vaccine (optional start 19+ years) [facility] Start: 1991 Hepatitis B vaccination Hepatitis B (HBV) Vaccine (1 of 3 - 19+ 3-dose series) [facility] Start: 1991 Hepatitis B Vaccine (1 of 3 - 19+ 3-dose series) Hepatitis B Vaccine (1 of 3 - 19+ 3-dose series) [facility] Start: 1990 Anxiety Screening Anxiety Screening [facility] Start: 1990 Depression Screening Depression Screening [facility] Start: 1990 HEPATITIS C SCREENING HEPATITIS C SCREENING [facility] Start: 1990 Hepatitis C screening Hepatitis C Screening [facility] Start: 1990 HIV SCREENING HIV SCREENING [facility] Start: 1990 HIV screening HIV Screening [facility] Start: 1987 HIV screening [facility] Start: 1972 COVID-19 VACCINE (#1) COVID-19 VACCINE (#1) [facility] Start: 1972 HEPATITIS B (1 of 3 - 3-dose series) HEPATITIS B (1 of 3 - 3-dose series) [facility] Start: 1972 Hepatitis B Vaccine (1 of 3 - 3-dose series) Hepatitis B Vaccine (1 of 3 - 3-dose series) [facility] Start: 1972 Screening for malignant neoplasm of colon Colonoscopy [facility] Bacteria identified in Unspecified specimen by Anaerobe culture [facility] Electrocardiographic procedure [facility] Fungal Culture Fungal Culture [facility] Fungal Smear Fungal Smear [facility] MG Breast - bilatera l Diagnostic [facility] Work Phone: MG Breast - bilatera l Diagnostic [facility] Patient Education [facility] Work Phone: Patient referral [facility] Work Phone: US Breast limited [facility] Immunizations Immunization Date Immunization Notes Care Provider Fa [facility] 02-19-2020 influenza, injectabl e, quadrivalent, contains preservative Eric Whitfield MD Work Phone: [facility] 02-19-2020 influenza virus vaccine, unspecified formulation Eric Whitfield MD Work Phone: [facility] 03-03-2019 influenza, seasonal, injectable Dr. Milka Schneider Work Phone: [facility] 03-03-2019 influenza, seasonal, injectable, preservative free Eric Whitfield MD Work Phone: [facility] 02-27-2018 influenza, seasonal, injectable Eric Whitfield MD Work Phone: [facility] 03-06-2016 influenza virus vaccine, unspecified formulation Eric Whitfield MD Work Phone: [facility] 12-17-2015 tetanus toxoid, reduced diphtheria toxoid, and acellular pertussis vaccine, adsorbed Eric Whitfield MD Work Phone: [facility] 04-29-2015 influenza, injectabl e, quadrivalent, contains preservative Karen Praisler-Wood PRIMARY CARE COORDINATOR.SURGICAL DRESSING MAKER Work Phone: [facility] 04-01-2014 influenza, seasonal, injectable Karen Praisler-Wood PRIMARY CARE COORDINATOR.[facility] Work Phone: [facility] 04-14-2013 influenza virus vaccine, unspecified formulation Karen Praisler-Wood PRIMARY CARE COORDINATOR.[facility] Work Phone: [facility] 02-25-2013 tetanus toxoid, reduced diphtheria toxoid, and acellular pertussis vaccine, adsorbed Karen Praisler-Wood PRIMARY CARE COORDINATOR.SURGICAL DRESSING MAKER Work Phone: [facility] 03-18-2012 influenza virus vaccine, unspecified formulation Karen Praisler-Wood PRIMARY CARE COORDINATOR.[facility] Work Phone: [facility] Payers Date Payer Category Payer Unknown [id number] 2024 [facility] BLUE CARD PPO OOS Member Subscriber Plan / Payer (Effective 2024-Present) Name: Helen Roland Member ID: [id number] Relation to Subscriber: Self Name: Helen Roland Subscriber ID: [id number] Payer ID: [id number] (NAIC) Type: PPO Address: [facility] [address] [place] [id number] 2024 Unknown [id number] 2023 Self-pay [id number] 2016 Medicaid [id number] 2016 Unknown [id number] 2015 Medicaid [id number] 2015 Medicaid [facility] [id number] 1972 Unknown [id number]. 651 1972 Unknown [id number] [id number]. 627 1972 Unknown [id number] 2.16.840.1.869237.3.579.2. 627 1972 Unknown [id number] 2.16.840.1.572067.3.579.2. 627 1972 Unknown [id number] 2.16.840.1.201234.3.579.2. 627 1972 Unknown [id number] 2.16.840.1.103301.3.579.2. 627 Unknown [id number] 2.16.840.1.566246.3.579.2. 462 Unknown [id number] 2.16.840.1.778433.3.579.2. 462 Unknown [id number] 2.16.840.1.827867.3.579.2. 462 Unknown [id number] 2.16.840.1.584400.3.579.2. 462 Unknown [id number] 2.16.840.1.192975.3.579.2. 462 Unknown [id number] 2.16.840.1.695157.3.579.2. 462 Unknown [id number] 2.16.840.1.641427.3.579.2. 462 Unknown [id number] 2.16.840.1.940833.3.579.2. 462 Unknown [id number] 2.16.840.1.822721.3.579.2. 462 Unknown [id number] 2.16.840.1.907262.3.579.2. 462 Unknown [id number] 2.16.840.1.527201.3.579.2. 462 Unknown [id number]. 462 Social History Date Type Detail Facility [facility] Work Phone: Start: 09-13-2021 End: 01-13-2023 Tobacco smoking status WYIS Unknown if ever smoked [facility] Start: 08-31-2019 Occasional [facility] Start: 08-31-2019 None [facility] Start: 06-20-2020 Spouse/ Significant Other [facility] Start: 10-14-2020 Non-smoker [facility] Start: 1970 Sex Assigned At Female [facility] Start: 05-26-2019 End: 12-09-2023 Tobacco smoking status Never smoked tobacco (finding) [facility] Sex Assigned At Sex [facility] Start: 05-27-2022 End: 03-02-2024 Tobacco smoking status NHIS Ex-smoker [facility] Start: 09-16-2002 End: 09-16-2012 History of tobacco use Current smoker [facility] Start: 09-16-2002 End: 09-16-2012 History of tobacco use Cigarette Smoker [facility] Start: 07-03-2019 End: 05-27-2022 Cigarettes smoked current (pack per day) - Reported 0.5 [facility] Start: 05-27-2022 End: 03-02-2024 Tobacco use and exposure Smokeless tobacco non-user [facility] Start: 05-27-2022 End: 09-02-2024 Alcohol intake Current non-drinker of alcohol (finding) [facility] Start: 1970 Sex Assigned At Not on file [facility] Start: 07-03-2019 Alcohol intake Not Asked [facility] Start: 07-03-2019 End: 07-31-2023 Tobacco use panel [facility] Work Phone: National Score (1-10 0), lower number is lower risk Not on file [facility] Start: 06-24-2024 Gender identity Identifies as female gender (finding) [facility] Start: 06-24-2024 Sexual orientation Heterosexual (finding) [facility] Start: 02-11-2016 Sex Female (finding) [facility] Medical Equipment Procedure Code Equipment Code Equipment Origin al Text Equipment Identifier Dates Excision, mass Plant polysaccha ride haemostatic agent, bioabsorbable ()[id number] FDA Start: 10-06-2022 Excision, mass Plant polysaccha ride haemostatic agent, bioabsorbable ()[id number] FDA Start: 10-06-2022 Breast reduction AMNIOFIX, 2 x12CM FDA S tart: 08-03-2021 Breast reduction Plant polysacch aride haemostatic agent, bioabsorbable ()[id number] FDA Start: 08-03-2021 Breast reduction Plant polysacch aride haemostatic agent, bioabsorbable ()[id number] FDA Start: 08-03-2021 Breast reduction AMNIOFIX, 2 x12CM FDA S tart: 08-03-2021 Breast reduction AMNIOFIX, 2 x12CM FDA S tart: 08-03-2021 Breast reduction AMNIOFIX, 2 x12CM FDA S tart: 08-03-2021 Breast reduction AMNIOFIX, 2 x12CM FDA S tart: 08-03-2021 Breast reduction AMNIOFIX, 2 x12CM FDA S tart: 08-03-2021 Breast reduction AMNIOFIX, 2 x12CM FDA S tart: 08-03-2021 Breast reduction AMNIOFIX, 2 x12CM FDA S tart: 08-03-2021 Breast reduction AMNIOFIX, 2 x12CM FDA S tart: 08-03-2021 Breast reduction AMNIOFIX, 2 x12CM FDA S tart: 08-03-2021 Breast reduction AMNIOFIX, 2 x12CM FDA S tart: 08-03-2021 Breast reduction AMNIOFIX, 2 x12CM FDA S tart: 08-03-2021 Breast reduction AMNIOFIX, 2 x12CM FDA S tart: 08-03-2021 Breast reduction AMNIOFIX, 2 x12CM FDA S tart: 08-03-2021 Breast reduction AMNIOFIX, 2 x12CM FDA S tart: 08-03-2021 Breast reduction AMNIOFIX, 2 x12CM FDA S tart: 08-03-2021 Breast reduction AMNIOFIX, 2 x12CM FDA S tart: 08-03-2021 Goals Date Patient Goal Desired Activity /State Functional Status Date Assessment Result Facility 01-26-2024 Functional Status ID band on, Call device within reach, Bed in low position, Wheels locked, Bedside Cart Locked, Visitor at bedside, Safety level maintained [facility] 01-26-2024 Functional Status [facility] 12-09-2023 Functional Status Standard Safet y ID band on, Call device within reach, Bed in low position, Wheels locked, Upper/Half-Length side-rails up, Bedside Cart Locked, Safety level maintained [facility] 06-22-2023 Functional Status ID band on, Allergy Band on, Call device within reach, Bed in low position, Wheels locked, Upper/Half-Length side-rails up, Safety level maintained [facility] 04-07-2023 Functional Status Assistive Device None A [facility] 04-07-2023 Functional Status Standard Safet y ID band on, Safety level maintained [facility] 03-20-2023 Functional Status Independent [facility] 03-20-2023 Functional Status Repositions self [facility] 11-11-2022 Functional Status ID band on, Allergy Band on [facility] 09-22-2022 Functional Status Standard Safet y ID band on, Allergy Band on, Call device within reach, Bed in low position, Wheels locked, Upper/Half-Length side-rails up, Bedside Cart Locked, Safety level maintained [facility] 08-15-2022 Functional Status ID band on, Allergy Band on, Call device within reach, Bed in low position, Wheels locked, Visitor at bedside [facility] 06-20-2022 Functional Status Independent [facility] 06-20-2022 Functional Status Bathroom privileges [facility] 05-12-2022 Functional Status Independent [facility] 05-12-2022 Functional Status Resting [facility] 04-30-2022 Functional Status ID band on, Allergy Band on, Call device within reach, Bed in low position, Wheels locked, Upper/Half-Length side-rails up, Phone within reach, personal items within reach, Visitor at bedside, Safety level maintained [facility] 04-20-2022 Functional Status Activity Statu s ADL Lights dimmed, Warm blankets [facility] 04-20-2022 Functional Status ID band on, Call device within reach, Bed in low position, Wheels locked, Visitor at bedside [facility] 04-06-2022 Functional Status Activity [employer] Independent [facility] 04-06-2022 Functional Status Standard Safet y ID band on, Call device within reach, Bed in low position, Wheels locked, Upper/Half-Length side-rails up, Bedside Cart Locked, Safety level maintained [facility] 03-29-2022 Functional Status Ambulating in ceballos, Ambulating in room, Awake [facility] 08-04-2021 Functional status Ambulates [facility] Work Phone: 03-23-2016 Are you deaf, or do you have serious difficulty hearing No 03/23/2016 11:27 AM Eric Juárez MD No [facility] 03-23-2016 Are you blind, or do you have serious difficulty seeing, even when wearing glasses No 03/23/2016 11:27 AM [facility]-2016 Do you have serious difficulty walking or climbing stairs No 03/23/2016 11:27 AM Eric Juárez MD No [facility] 03-23-2016 Do you have difficul ty dressing or bathing No 03/23/2016 11:27 AM Eric Juárez MD No [facility] 03-23-2016 Because of a physica l, mental, or emotional condition, do you have difficulty doing errands alone such as visiting a physician's office or shopping No 03/23/2016 11:27 AM Eric Juárez MD No [facility] 12-23-2014 Are you deaf, or do you have serious difficulty hearing No 12/23/2014 3:35 PM EDT Erna Patel LPN No [facility] 12-23-2014 Are you blind, or do you have serious difficulty seeing, even when wearing glasses No 12/23/2014 3:35 PM EDT Erna Patel LPN No [facility] 12-23-2014 Do you have serious difficulty walking or climbing stairs No 12/23/2014 3:35 PM EDT Erna Patel LPN No [facility] 12-23-2014 Do you have difficul ty dressing or bathing No 12/23/2014 3:35 PM EDT Erna Patel LPN No [facility] 12-23-2014 Because of a physica l, mental, or emotional condition, do you have difficulty doing errands alone such as visiting a physician's office or shopping No 12/23/2014 3:35 PM EDT Erna Patel LPN No [facility] Mental Status Date Assessment Result Facility 01-26-2024 Mental Status Oriented x 4 [facility] 01-26-2024 Mental Status [facility] 12-09-2023 Mental Status Oriented x 4 [facility] 06-22-2023 Mental Status Oriented x 4 [facility] 04-07-2023 Mental Status Oriented x 4 [facility] 04-07-2023 Mental Status [facility] 03-20-2023 Mental Status Oriented x 4 [facility] 03-20-2023 Mental Status [facility] 01-03-2023 Cognitive function Level Of Cons ciousness Awake;Alert;Appropriate [facility] Work Phone: 12-17-2022 Cognitive function Level Of Cons ciousness Awake;Alert;Appropriate;Fo llows Commands [facility] Work Phone: 11-11-2022 Mental Status Oriented x 4 [facility] 10-27-2022 Cognitive function Level Of Cons ciousness Awake;Alert;Appropriate;Fo llows Commands [facility] Work Phone: 10-06-2022 Cognitive function Voice/Name [facility] Work Phone: 09-22-2022 Mental Status Orientation Oriented x 4 [facility] 08-15-2022 Mental Status Oriented x 4 [facility] 06-20-2022 Mental Status Orientation Oriented x 4 [facility] 06-20-2022 Mental Status [facility] 05-12-2022 Mental Status Orientation Oriented x 4 [facility] 05-12-2022 Mental Status [facility] 04-30-2022 Mental Status Oriented x 4 [facility] 04-20-2022 Mental Status Orientation Oriented x 4 [facility] 04-06-2022 Mental Status Oriented x 4 [facility] 04-06-2022 Mental Status [facility] 03-29-2022 Mental Status Orientation Oriented x 4 [facility] 03-29-2022 Mental Status [facility] 02-12-2022 Cognitive function Voice/Name [facility] Work Phone: 08-04-2021 Cognitive function Level Of Cons ciousness Awake;Alert;Appropriate;Fo llows [employer] [facility] Work Phone: 08-04-2021 Cognitive function Voice/Name [facility] Work Phone: 05-20-2021 Cognitive function Level Of Cons ciousness Awake;Alert;Appropriate;Fo [facility] Work Phone: 03-23-2016 Because of a physica l, mental, or emotional condition, do you have serious difficulty concentrating, remembering, or making decisions No 03/23/2016 11:27 AM EDT Eric Whitfield MD No [facility] 12-23-2014 Because of a physica l, mental, or emotional condition, do you have serious difficulty concentrating, remembering, or making decisions No 12/23/2014 3:35 PM EDT Erna Patel LPN No [facility] Clinical Notes 03-29-2022 to 09-02-2024 Emile Bentley APRN.SURGICAL DRESSING MAKER - 09/02/2024 9:12 AM EDTTelephone Encounter - Lidia Cohen MA - 04/08/2024 7:47 AM EDTTelephone Encounter - Lidia Cohen MA - 04/08/2024 7:47 AM EDT Note Date & Type Note Facility 09-02-2024 Note HNO ID: [id number] Author: EMILE BENTLEY APRN.SURGICAL DRESSING MAKER Service: ? Author Type: Nurse Practitioner Type: Progress Notes Filed: 09/02/2024 09:14 Note Text: [facility] Subjective Helen Roland is a 54 year old female. Patient presents with: Ear Pain: Left ear pain, cough, sinus and congestion x 1 week Patient came in with complaints of sinus pressure and congestion for a week. Patient says her left ear started hurting a few days ago. Patient denies any shortness of breath or sore throat. Patient denies any other symptoms. The history is provided by the patient. No interpreter was used. Ear Pain Review of Systems Constitutional: Negative. HENT: Positive for sinus pressure. Objective BP 136/82 Pulse 71 Temp 36.5 ?C (97.7 ?F) (Tympanic) Resp 16 Wt 74.5 kg (164 lb 3.9 oz) LMP 06/18/2019 SpO2 97% BMI 24.97 kg/m? Physical Exam Constitutional: Appearance: Normal appearance. HENT: Right Ear: Tympanic membrane, ear canal and external ear normal. Left Ear: Ear canal and external ear normal. Tympanic membrane is erythematous and bulging. Mouth/Throat: Mouth: Mucous membranes are moist. Eyes: Pupils: Pupils are equal, round, and reactive to light. Cardiovascular: Rate and Rhythm: Normal rate and regular rhythm. Heart sounds: Normal heart sounds. Pulmonary: Effort: Pulmonary effort is normal. Breath sounds: Normal breath sounds. Neurological: Mental Status: She is alert. PAST MEDICAL HISTORY Diagnosis Date Anxiety GERD [...] ALLERGIES Azithromycin, Dust, and Imitrex [Sumatriptan] MEDICATIONS amoxicillin-clavulanate potassium (AUGMENTIN) 875-125 mg per tablet Take 1 tablet by mouth two times a day for 7 days. lidocaine (LIDODERM) 5 % Apply 1 Patch as directed every 12 hours. Remove old patch prior to placing new patch. Location: ankle omeprazole (PRILOSEC) 40 mg capsule Take 1 capsule by mouth every afternoon. sucralfate (CARAFATE) 1 gram tablet Take 1 g by mouth three times a day. (Patient not taking: Reported on 04/07/2024) traZODone (DESYREL) 50 mg tablet Take 50 mg by mouth daily at bedtime. valACYclovir (VALTREX) 500 mg tablet TAKE 1 TABLET BY MOUTH 2 TIMES A DAY for 3 days for outbreak famotidine (PEPCID) 20 mg tablet 20 mg. (Patient not taking: Reported on 08/20/2023) oxyCODONE-acetaminophen (PERCOCET) 5-325 mg tablet take 1 tablet by mouth twice a day if needed for pain SCORE OF 7-10 FOR 7 DAYS (Patient not taking: Reported on 12/03/2022) busPIRone (BUSPAR) 5 mg tablet take 1 tablet by mouth twice a day for anxiety (Patient not taking: Reported on 03/02/2024) magnesium citrate solution Take by mouth. levothyroxine (SYNTHROID) 50 mcg tablet Take 50 mcg by mouth daily before breakfast. escitalopram oxalate (LEXAPRO) 10 mg tablet (Patient not taking: Reported on 03/02/2024) fluticasone (FLONASE) 50 mcg/actuation nasal spray 1 Preston once daily. LORazepam (ATIVAN) 1 mg tablet Take 1 mg by mouth two times a day as needed. LINZESS 290 mcg capsule Take 290 mcg by mouth once daily. (Patient not taking: Reported on 03/02/2024) Omeprazole Magnesium 20 mg tablet Take 20 mg by mouth. (Patient not taking: Reported on 12/03/2022) levothyroxine (SYNTHROID) 137 mcg tablet Take 1 tablet by mouth once daily. (Patient not taking: Reported on 05/27/2022) hydrOXYzine pamoate (VISTARIL) 25 mg capsule Take 25 mg by mouth three times a day as needed. zolpidem (AMBIEN) 5 mg tablet Take 5 mg by mouth at bedtime as needed. (Patient not taking: Reported on 07/31/2023) ondansetron orally disintegrating (ZOFRAN ODT) 4 mg disintegrating tablet Take 1 tablet by mouth every 12 hours as needed for Nausea/Vomiting. (Patient not taking: Reported on 05/27/2022) estradiol (ESTRACE) 1 mg tablet Take 1 mg by mouth once daily. (Patient not taking: Reported on 05/27/2022) losartan (COZAAR) 50 mg tablet Take 1 tablet by mouth once daily. FAMILY HISTORY Problem Relation Age of Onset Psychiatry Mother Seizures Mother Cancer Father prostate Social History Tobacco Use Smoking status: Former Current packs/day: 0.00 Average packs/day: 0.5 packs/day for 10.0 years (5.0 ttl pk-yrs) Types: Cigarettes Start date: 09/16/2002 Quit date: 09/16/2012 Years since quittin.9 Smokeless tobacco: Never Substance Use Topics Alcohol use: No D (more content not included)... [facility] 09-02-2024 History of Presen t illness Narrative [facility] Subjective Helen Roland is a 54 year old female. Patient presents with: Ear Pain: Left ear pain, cough, sinus and congestion x 1 week Patient came in with complaints of sinus pressure and congestion for a week. Patient says her left ear started hurting a few days ago. Patient denies any shortness of breath or sore throat. Patient denies any other symptoms. The history is provided by the patient. No interpreter was used. Ear Pain Review of Systems Constitutional: Negative. HENT: Positive for sinus pressure. Objective BP 136/82 Pulse 71 Temp 36.5 C (97.7 F) (Tympanic) Resp 16 Wt 74.5 kg (164 lb 3.9 oz) LMP 06/18/2019 SpO2 97% BMI 24.97 kg/m Physical Exam Constitutional: Appearance: Normal appearance. HENT: Right Ear: Tympanic membrane, ear canal and external ear normal. Left Ear: Ear canal and external ear normal. Tympanic membrane is erythematous and bulging. Mouth/Throat: Mouth: Mucous membranes are moist. Eyes: Pupils: Pupils are equal, round, and reactive to light. Cardiovascular: Rate and Rhythm: Normal rate and regular rhythm. Heart sounds: Normal heart sounds. Pulmonary: Effort: Pulmonary effort is normal. Breath sounds: Normal breath sounds. Neurological: Mental Status: She is alert. PAST MEDICAL HISTORY Diagnosis Date Anxiety GERD [...] ALLERGIES Azithromycin, Dust, and Imitrex [Sumatriptan] MEDICATIONS amoxicillin-clavulanate potassium (AUGMENTIN) 875-125 mg per tablet Take 1 tablet by mouth two times a day for 7 days. lidocaine (LIDODERM) 5 % Apply 1 Patch as directed every 12 hours. Remove old patch prior to placing new patch. Location: ankle omeprazole (PRILOSEC) 40 mg capsule Take 1 capsule by mouth every afternoon. sucralfate (CARAFATE) 1 gram tablet Take 1 g by mouth three times a day. (Patient not taking: Reported on 04/07/2024) traZODone (DESYREL) 50 mg tablet Take 50 mg by mouth daily at bedtime. valACYclovir (VALTREX) 500 mg tablet TAKE 1 TABLET BY MOUTH 2 TIMES A DAY for 3 days for outbreak famotidine (PEPCID) 20 mg tablet 20 mg. (Patient not taking: Reported on 08/20/2023) oxyCODONE-acetaminophen (PERCOCET) 5-325 mg tablet take 1 tablet by mouth twice a day if needed for pain SCORE OF 7-10 FOR 7 DAYS (Patient not taking: Reported on 12/03/2022) busPIRone (BUSPAR) 5 mg tablet take 1 tablet by mouth twice a day for anxiety (Patient not taking: Reported on 03/02/2024) magnesium citrate solution Take by mouth. levothyroxine (SYNTHROID) 50 mcg tablet Take 50 mcg by mouth daily before breakfast. escitalopram oxalate (LEXAPRO) 10 mg tablet (Patient not taking: Reported on 03/02/2024) fluticasone (FLONASE) 50 mcg/actuation nasal spray 1 Preston once daily. LORazepam (ATIVAN) 1 mg tablet Take 1 mg by mouth two times a day as needed. LINZESS 290 mcg capsule Take 290 mcg by mouth once daily. (Patient not taking: Reported on 03/02/2024) Omeprazole Magnesium 20 mg tablet Take 20 mg by mouth. (Patient not taking: Reported on 12/03/2022) levothyroxine (SYNTHROID) 137 mcg tablet Take 1 tablet by mouth once daily. (Patient not taking: Reported on 05/27/2022) hydrOXYzine pamoate (VISTARIL) 25 mg capsule Take 25 mg by mouth three times a day as needed. zolpidem (AMBIEN) 5 mg tablet Take 5 mg by mouth at bedtime as needed. (Patient not taking: Reported on 07/31/2023) ondansetron orally disintegrating (ZOFRAN ODT) 4 mg disintegrating tablet Take 1 tablet by mouth every 12 hours as needed for Nausea/Vomiting. (Patient not taking: Reported on 05/27/2022) estradiol (ESTRACE) 1 mg tablet Take 1 mg by mouth once daily. (Patient not taking: Reported on 05/27/2022) losartan (COZAAR) 50 mg tablet Take 1 tablet by mouth once daily. FAMILY HISTORY Problem Relation Age of Onset Psychiatry Mother Seizures Mother Cancer Father prostate Social History Tobacco Use Smoking status: Former Current packs/day: 0.00 Average packs/day: 0.5 packs/day for 10.0 years (5.0 ttl pk-yrs) Types: Cigarettes Start date: 09/16/2002 Quit date: 09/16/2012 Years since quittin.9 Smokeless tobacco: Never Substance Use Topics Alcohol use: No Drug use: No {ASSESSMENT/PLAN: 1. Rhinosinusitis - ICD9: 473.9, ICD10: J32.9 - Will begin treatment with as per antibiotic as written, see orders - Supportive care with plenty of fluids, rest, and analgesia prn. - AMOXICILLIN 875 MG-POTASSIUM CLAVULANATE 125 MG TABLET Emile Bentley APRN.SAHRA History and Record Review External record(s) reviewed: no prior records. Disposition The patient was discharged. Procedures documented in this encounter [facility] 04-08-2024 Telephone encounter Note Patient given results and verbalized understanding of instructions given. Lidia Cohen MA [facility] 04-08-2024 Miscellaneous Notes Patient given results and verbalized understanding of instructions given. Lidia Cohen MA ----- Message from Anthony Williamson MD sent at 04/07/2024 8:42 PM EDT ----- Ankle xray showed no fractures. documented in this encounter [facility] 04-08-2024 Telephone encounter Note ----- Message from Anthony Williamson MD sent at 04/07/2024 8:42 PM EDT ----- Ankle xray showed no fractures. [facility] 04-07-2024 Note HNO ID: [id number] Author: ARACELI BURNS APRN.SURGICAL DRESSING MAKER Service: ? Author Type: Nurse Practitioner Type: Progress Notes Filed: 04/07/2024 19:58 Note Text: Subjective HPI HPI Helen Roland is a 53 year old female who presents today for CC of right ankle pain. This started 5 days ago. Has tried otc medication and compression for relief. Symptoms are worsened by rom. Denies injury, numbness/tingling. .Patient presents with: Ankle Injury: right x 5 days PAST MEDICAL HISTORY Diagnosis Date Anxiety GERD [...] ALLERGIES Azithromycin, Dust, and Imitrex [Sumatriptan] MEDICATIONS omeprazole (PRILOSEC) 40 mg capsule Take 1 capsule by mouth every afternoon. traZODone (DESYREL) 50 mg tablet Take 50 mg by mouth daily at bedtime. valACYclovir (VALTREX) 500 mg tablet TAKE 1 TABLET BY MOUTH 2 TIMES A DAY for 3 days for outbreak magnesium citrate solution Take by mouth. levothyroxine (SYNTHROID) 50 mcg tablet Take 50 mcg by mouth daily before breakfast. fluticasone (FLONASE) 50 mcg/actuation nasal spray 1 Preston once daily. LORazepam (ATIVAN) 1 mg tablet Take 1 mg by mouth two times a day as needed. hydrOXYzine pamoate (VISTARIL) 25 mg capsule Take 25 mg by mouth three times a day as needed. losartan (COZAAR) 50 mg tablet Take 1 tablet by mouth once daily. sucralfate (CARAFATE) 1 gram tablet Take 1 g by mouth three times a day. (Patient not taking: Reported on 04/07/2024) famotidine (PEPCID) 20 mg tablet 20 mg. (Patient not taking: Reported on 08/20/2023) oxyCODONE-acetaminophen (PERCOCET) 5-325 mg tablet take 1 tablet by mouth twice a day if needed for pain SCORE OF 7-10 FOR 7 DAYS (Patient not taking: Reported on 12/03/2022) busPIRone (BUSPAR) 5 mg tablet take 1 tablet by mouth twice a day for anxiety (Patient not taking: Reported on 03/02/2024) escitalopram oxalate (LEXAPRO) 10 mg tablet (Patient not taking: Reported on 03/02/2024) LINZESS 290 mcg capsule Take 290 mcg by mouth once daily. (Patient not taking: Reported on 03/02/2024) Omeprazole Magnesium 20 mg tablet Take 20 mg by mouth. (Patient not taking: Reported on 12/03/2022) levothyroxine (SYNTHROID) 137 mcg tablet Take 1 tablet by mouth once daily. (Patient not taking: Reported on 05/27/2022) zolpidem (AMBIEN) 5 mg tablet Take 5 mg by mouth at bedtime as needed. (Patient not taking: Reported on 07/31/2023) ondansetron orally disintegrating (ZOFRAN ODT) 4 mg [...] Social History Tobacco Use Smoking status: Former Current packs/day: 0.00 Average packs/day: 0.5 packs/day for 10.0 years (5.0 ttl pk-yrs) Types: Cigarettes Start date: 09/16/2002 Quit date: 09/16/2012 Years since quittin.5 Smokeless tobacco: Never Substance Use Topics Alcohol use: No Drug use: No ROS Objective Blood pressure 110/64, pulse 62, temperature 36.2 ?C (97.2 ?F), resp. rate 16, weight 84.6 kg (186 lb 8.2 oz), last menstrual period 06/18/2019, SpO2 98%. Physical Exam Constitutional: General: She is not in acute distress. Appearance: She is not toxic-appearing or diaphoretic. HENT: Head: Normocephalic and atraumatic. Pulmonary: Effort: Pulmonary effort is normal. No accessory muscle usage or respiratory distress. Musculoskeletal: Legs: Neurological: Mental Status: She is alert and oriented to person, place, and time. ASSESSMENT/PLAN: 1. Acute right ankle pain - ICD9: 719.47, 338.19, ICD10: M25.571 Xray not resulted before end of shift No acute/major bony abnormalities noted. Call result in AM, if negative f/u with pcp if in 3-7 days if s/s persist. - XR ANKLE GENERAL 3V AP/LAT/OBL RIGHT - LIDOCAINE 5 % TOPICAL PATCH Araceli Burns APRN.SURGICAL DRESSING MAKER [facility] 04-07-2024 History of Presen t illness Narrative Images from the original note were not included. Subjective HPI HPI Helen Roland is a 53 year old female who presents today for CC of right ankle pain. This started 5 days ago. Has tried otc medication and compression for relief. Symptoms are worsened by rom. Denies injury, numbness/tingling. .Patient presents with: Ankle Injury: right x 5 days PAST MEDICAL HISTORY Diagnosis Date Anxiety GERD [...] ALLERGIES Azithromycin, Dust, and Imitrex [Sumatriptan] MEDICATIONS omeprazole (PRILOSEC) 40 mg capsule Take 1 capsule by mouth every afternoon. traZODone (DESYREL) 50 mg tablet Take 50 mg by mouth daily at bedtime. valACYclovir (VALTREX) 500 mg tablet TAKE 1 TABLET BY MOUTH 2 TIMES A DAY for 3 days for outbreak magnesium citrate solution Take by mouth. levothyroxine (SYNTHROID) 50 mcg tablet Take 50 mcg by mouth daily before breakfast. fluticasone (FLONASE) 50 mcg/actuation nasal spray 1 Preston once daily. LORazepam (ATIVAN) 1 mg tablet Take 1 mg by mouth two times a day as needed. hydrOXYzine pamoate (VISTARIL) 25 mg capsule Take 25 mg by mouth three times a day as needed. losartan (COZAAR) 50 mg tablet Take 1 tablet by mouth once daily. sucralfate (CARAFATE) 1 gram tablet Take 1 g by mouth three times a day. (Patient not taking: Reported on 04/07/2024) famotidine (PEPCID) 20 mg tablet 20 mg. (Patient not taking: Reported on 08/20/2023) oxyCODONE-acetaminophen (PERCOCET) 5-325 mg tablet take 1 tablet by mouth twice a day if needed for pain SCORE OF 7-10 FOR 7 DAYS (Patient not taking: Reported on 12/03/2022) busPIRone (BUSPAR) 5 mg tablet take 1 tablet by mouth twice a day for anxiety (Patient not taking: Reported on 03/02/2024) escitalopram oxalate (LEXAPRO) 10 mg tablet (Patient not taking: Reported on 03/02/2024) LINZESS 290 mcg capsule Take 290 mcg by mouth once daily. (Patient not taking: Reported on 03/02/2024) Omeprazole Magnesium 20 mg tablet Take 20 mg by mouth. (Patient not taking: Reported on 12/03/2022) levothyroxine (SYNTHROID) 137 mcg tablet Take 1 tablet by mouth once daily. (Patient not taking: Reported on 05/27/2022) zolpidem (AMBIEN) 5 mg tablet Take 5 mg by mouth at bedtime as needed. (Patient not taking: Reported on 07/31/2023) ondansetron orally disintegrating (ZOFRAN ODT) 4 mg [...] Social History Tobacco Use Smoking status: Former Current packs/day: 0.00 Average packs/day: 0.5 packs/day for 10.0 years (5.0 ttl pk-yrs) Types: Cigarettes Start date: 09/16/2002 Quit date: 09/16/2012 Years since quittin.5 Smokeless tobacco: Never Substance Use Topics Alcohol use: No Drug use: No ROS Objective Blood pressure 110/64, pulse 62, temperature 36.2 C (97.2 F), resp. rate 16, weight 84.6 kg (186 lb 8.2 oz), last menstrual period 06/18/2019, SpO2 98%. Physical Exam Constitutional: General: She is not in acute distress. Appearance: She is not toxic-appearing or diaphoretic. HENT: Head: Normocephalic and atraumatic. Pulmonary: Effort: Pulmonary effort is normal. No accessory muscle usage or respiratory distress. Musculoskeletal: Legs: Neurological: Mental Status: She is alert and oriented to person, place, and time. ASSESSMENT/PLAN: 1. Acute right ankle pain - ICD9: 719.47, 338.19, ICD10: M25.571 Xray not resulted before end of shift No acute/major bony abnormalities noted. Call result in AM, if negative f/u with pcp if in 3-7 days if s/s persist. - XR ANKLE GENERAL 3V AP/LAT/OBL RIGHT - LIDOCAINE 5 % TOPICAL PATCH Araceli Burns APRN.SAHRA documented in this encounter [facility] 04-07-2024 History of Presen t illness Narrative Radiology Service Progress Note PATIENT NAME: Helen Roland DATE OF SERVICE: April 07, 2024 TIME: 7:24 PM PATIENT IDENTITY VERIFICATION COMPLETED USING TWO (2) IDENTIFIERS: Name and Date of confirmed by patient verbally. FALL SCREENING: Has the patient had 2 falls in the last year or 1 fall with injury or currently using an Ambulatory Assistive Device (Walker, Cane, Wheelchair, Crutches, etc.)? No PATIENT GENDER DATA: Female. status: : No status: NO. PATIENT RELEVANT IMPLANT DATA REVIEWED: Not Applicable PATIENT PRESENTS WITH AN IMPLANTABLE OR ATTACHED COMPLIANCE ENGINEER PRODUCTS: No RADIOLOGY DEPARTMENT: General X-ray: Exam(s) Completed: Lower Extremity X-Ray(s): Ankle, Right PERIPHERAL IV DATA: Not applicable SIGNED BY: RT Mook(R) April 07, 2024 7:24 PM documented in this encounter [facility] 04-07-2024 Note HNO ID: [id number] Author: TIM RAY RT(Moy) Service: Radiology Author Type: Technologist Type: Progress Notes Filed: 04/07/2024 19:31 Note Text: Radiology Service Progress Note PATIENT NAME: Helen Roland DATE OF SERVICE: April 07, 2024 TIME: 7:24 PM PATIENT IDENTITY VERIFICATION COMPLETED USING TWO (2) IDENTIFIERS: Name and Date of confirmed by patient verbally. FALL SCREENING: Has the patient had 2 falls in the last year or 1 fall with injury or currently using an Ambulatory Assistive Device (Walker, Cane, Wheelchair, Crutches, etc.)? No PATIENT GENDER DATA: Female. status: : No status: NO. PATIENT RELEVANT IMPLANT DATA REVIEWED: Not Applicable PATIENT PRESENTS WITH AN IMPLANTABLE OR ATTACHED COMPLIANCE ENGINEER PRODUCTS: No RADIOLOGY DEPARTMENT: General X-ray: Exam(s) Completed: Lower Extremity X-Ray(s): Ankle, Right PERIPHERAL IV DATA: Not applicable SIGNED BY: RT Mook(R) April 07, 2024 7:24 PM [facility] 03-02-2024 Note HNO ID: [id number] Author: EMILE BENTLEY APRN.SURGICAL DRESSING MAKER Service: ? Author Type: Nurse Practitioner Type: Progress Notes Filed: 03/02/2024 08:52 Note Text: CC: Patient presents with: Sore Throat: rash on legs x 4 days HPI: Helen Roland is a 53 year old female who presents to the office with complaint of cough, productive for a few days. Symptoms are worsening Associated symptoms includes rash. Denies nausea, vomiting , and diarrhea. Treatments tried include nothing so far. with no relief of symptoms. Sick contacts: unknown. History of asthma, frequent episodes of bronchitis, chronic bronchitis, bronchiectasis or COPD: No Smoker: No Seasonal/environmental allergies: No The ROS is otherwise negative. The patient's pmh, medications, allergies, and past visits are reviewed. PHYSICAL EXAM: BP 120/70 Pulse 96 Temp 36.8 ?C (98.3 ?F) Resp 16 Wt 87.3 kg (192 lb 7.4 oz) LMP 06/18/2019 SpO2 98% BMI 29.26 kg/m? General appearance: alert, cooperative, pleasant, in no acute distress Head: Normocephalic Eyes: EOM's intact, conjunctiva pink and moist, no icterus, sclera white, non-injected Ears: Right ear: External ear/canal- Normal, TM - clear with good landmarks. Left ear: External ear/canal- Normal, TM - clear with good landmarks Oropharynx:moist without lesions, No erythema, exudates or tonsillar hypertrophy. Heart: Negative. RRR without obvious murmur, gallop, or rubs. No ectopy. Lungs: clear to auscultation, without rales or wheeze, good air exchange PAST MEDICAL HISTORY Diagnosis Date Anxiety GERD [...] ALLERGIES Azithromycin, Dust, and Imitrex [Sumatriptan] MEDICATIONS omeprazole (PRILOSEC) 40 mg capsule Take 1 capsule by mouth every afternoon. sucralfate (CARAFATE) 1 gram tablet Take 1 g by mouth three times a day. traZODone (DESYREL) 50 mg tablet Take 50 mg by mouth daily at bedtime. valACYclovir (VALTREX) 500 mg tablet TAKE 1 TABLET BY MOUTH 2 TIMES A DAY for 3 days for outbreak magnesium citrate solution Take by mouth. levothyroxine (SYNTHROID) 50 mcg tablet Take 50 mcg by mouth daily before breakfast. fluticasone (FLONASE) 50 mcg/actuation nasal spray 1 Preston once daily. LORazepam (ATIVAN) 1 mg tablet Take 1 mg by mouth two times a day as needed. hydrOXYzine pamoate (VISTARIL) 25 mg capsule Take 25 mg by mouth three times a day as needed. losartan (COZAAR) 50 mg tablet Take 1 tablet by mouth once daily. famotidine (PEPCID) 20 mg tablet 20 mg. (Patient not taking: Reported on 08/20/2023) oxyCODONE-acetaminophen (PERCOCET) 5-325 mg tablet take 1 tablet by mouth twice a day if needed for pain SCORE OF 7-10 FOR 7 DAYS (Patient not taking: Reported on 12/03/2022) busPIRone (BUSPAR) 5 mg tablet take 1 tablet by mouth twice a day for anxiety (Patient not taking: Reported on 03/02/2024) escitalopram oxalate (LEXAPRO) 10 mg tablet (Patient not taking: Reported on 03/02/2024) LINZESS 290 mcg capsule Take 290 mcg by mouth once daily. (Patient not taking: Reported on 03/02/2024) Omeprazole Magnesium 20 mg tablet Take 20 mg by mouth. (Patient not taking: Reported on 12/03/2022) levothyroxine (SYNTHROID) 137 mcg tablet Take 1 tablet by mouth once daily. (Patient not taking: Reported on 05/27/2022) zolpidem (AMBIEN) 5 mg tablet Take 5 mg by mouth at bedtime as needed. (Patient not taking: Reported on 07/31/2023) ondansetron orally disintegrating (ZOFRAN ODT) 4 mg [...] Social History Tobacco Use Smoking status: Former Current packs/day: 0.00 Average packs/day: 0.5 packs/day for 10.0 years (5.0 ttl pk-yrs) Types: Cigarettes Start date: 09/16/2002 Quit date: 09/16/2012 Years since quittin.4 Smokeless tobacco: Never Substance Use Topics Alcohol use: No Drug use: No ASSESSMENT/PLAN: 1. Sore throat - ICD9: 462, ICD10: J02.9 (primary diagnosis) - STREP A MOLECULAR (POC) 2. Respiratory infection - ICD9: 519.8, ICD10: J98.8 Doxycyline ordered for productive cough no xray available. Prescri (more content not included)... [facility] 03-02-2024 History of Presen t illness Narrative CC: Patient presents with: Sore Throat: rash on legs x 4 days HPI: Helen Roland is a 53 year old female who presents to the office with complaint of cough, productive for a few days. Symptoms are worsening Associated symptoms includes rash. Denies nausea, vomiting , and diarrhea. Treatments tried include nothing so far. with no relief of symptoms. Sick contacts: unknown. History of asthma, frequent episodes of bronchitis, chronic bronchitis, bronchiectasis or COPD: No Smoker: No Seasonal/environmental allergies: No The ROS is otherwise negative. The patient's pmh, medications, allergies, and past visits are reviewed. PHYSICAL EXAM: BP 120/70 Pulse 96 Temp 36.8 C (98.3 F) Resp 16 Wt 87.3 kg (192 lb 7.4 oz) LMP 06/18/2019 SpO2 98% BMI 29.26 kg/m General appearance: alert, cooperative, pleasant, in no acute distress Head: Normocephalic Eyes: EOM's intact, conjunctiva pink and moist, no icterus, sclera white, non-injected Ears: Right ear: External ear/canal- Normal, TM - clear with good landmarks. Left ear: External ear/canal- Normal, TM - clear with good landmarks Oropharynx:moist without lesions, No erythema, exudates or tonsillar hypertrophy. Heart: Negative. RRR without obvious murmur, gallop, or rubs. No ectopy. Lungs: clear to auscultation, without rales or wheeze, good air exchange PAST MEDICAL HISTORY Diagnosis Date Anxiety GERD [...] ALLERGIES Azithromycin, Dust, and Imitrex [Sumatriptan] MEDICATIONS omeprazole (PRILOSEC) 40 mg capsule Take 1 capsule by mouth every afternoon. sucralfate (CARAFATE) 1 gram tablet Take 1 g by mouth three times a day. traZODone (DESYREL) 50 mg tablet Take 50 mg by mouth daily at bedtime. valACYclovir (VALTREX) 500 mg tablet TAKE 1 TABLET BY MOUTH 2 TIMES A DAY for 3 days for outbreak magnesium citrate solution Take by mouth. levothyroxine (SYNTHROID) 50 mcg tablet Take 50 mcg by mouth daily before breakfast. fluticasone (FLONASE) 50 mcg/actuation nasal spray 1 Preston once daily. LORazepam (ATIVAN) 1 mg tablet Take 1 mg by mouth two times a day as needed. hydrOXYzine pamoate (VISTARIL) 25 mg capsule Take 25 mg by mouth three times a day as needed. losartan (COZAAR) 50 mg tablet Take 1 tablet by mouth once daily. famotidine (PEPCID) 20 mg tablet 20 mg. (Patient not taking: Reported on 08/20/2023) oxyCODONE-acetaminophen (PERCOCET) 5-325 mg tablet take 1 tablet by mouth twice a day if needed for pain SCORE OF 7-10 FOR 7 DAYS (Patient not taking: Reported on 12/03/2022) busPIRone (BUSPAR) 5 mg tablet take 1 tablet by mouth twice a day for anxiety (Patient not taking: Reported on 03/02/2024) escitalopram oxalate (LEXAPRO) 10 mg tablet (Patient not taking: Reported on 03/02/2024) LINZESS 290 mcg capsule Take 290 mcg by mouth once daily. (Patient not taking: Reported on 03/02/2024) Omeprazole Magnesium 20 mg tablet Take 20 mg by mouth. (Patient not taking: Reported on 12/03/2022) levothyroxine (SYNTHROID) 137 mcg tablet Take 1 tablet by mouth once daily. (Patient not taking: Reported on 05/27/2022) zolpidem (AMBIEN) 5 mg tablet Take 5 mg by mouth at bedtime as needed. (Patient not taking: Reported on 07/31/2023) ondansetron orally disintegrating (ZOFRAN ODT) 4 mg [...] Social History Tobacco Use Smoking status: Former Current packs/day: 0.00 Average packs/day: 0.5 packs/day for 10.0 years (5.0 ttl pk-yrs) Types: Cigarettes Start date: 09/16/2002 Quit date: 09/16/2012 Years since quittin.4 Smokeless tobacco: Never Substance Use Topics Alcohol use: No Drug use: No ASSESSMENT/PLAN: 1. Sore throat - ICD9: 462, ICD10: J02.9 (primary diagnosis) - STREP A MOLECULAR (POC) 2. Respiratory infection - ICD9: 519.8, ICD10: J98.8 Doxycyline ordered for productive cough no xray available. Prescription instructions reviewed with patient as applicable. Potential red flag symptoms discussed with the patient. Reviewed appropriate action plan to take if red flag symptoms occur. Patient agreeable to treatment plan. Emile Bentley APRN.SURGICAL DRESSING MAKER documented in this encounter [facility] 01-26-2024 Hospital Discharg e instructions Patient Education 01/26/2024 15:13:17 Constipation (Adult) Constipation (Adult) Constipation means that you have bowel movements that are less frequent than usual. Stools often become very hard and difficult to pass. Constipation is very common. At some point in life, it affects almost everyone. Since everyone's bowel habits are different, what is constipation to one person may not be to another. Your healthcare provider may do tests to diagnose constipation. It depends on what he or she finds when evaluating you. Symptoms of constipation include: Abdominal pain Bloating Vomiting Painful bowel movements Itching, swelling, bleeding, or pain around the anus Causes Constipation can have many causes. These include: Diet low in fiber Too much dairy Not drinking enough liquids Lack of exercise or physical activity (especially true for older adults) Changes in lifestyle or daily routine, including , aging, work, and travel Frequent use or misuse of laxatives Ignoring the urge to have a bowel movement or delaying it until later Medicines, such as certain prescription pain medicines, iron supplements, antacids, certain antidepressants, and calcium supplements Diseases like irritable bowel syndrome, bowel obstructions, stroke, diabetes, thyroid disease, Parkinson disease, hemorrhoids, and colon cancer Complications Potential complications of constipation can include: Hemorrhoids Rectal bleeding from hemorrhoids or anal fissures (skin tears) Hernias Dependency on laxatives Chronic constipation Fecal impaction, a severe form of constipation in which a large amount of hard stool is in your rectum that you can't pass Bowel obstruction or perforation Home care All treatment should be done after talking with your healthcare provider. This is especially true if you have another medical problems, are taking prescription medicines, or are an older adult. Treatment most often involves lifestyle changes. You may also need medicines. Your healthcare provider will tell you which will work best for you. Follow the advice below to help avoid this problem in the future. Lifestyle changes These lifestyle changes can help prevent constipation: Diet. Eat a high-fiber diet, with fresh fruit and vegetables, and reduce dairy intake, meats, and processed foods Fluids. It's important to get enough fluids each day. Drink plenty of water when you eat more fiber. If you are on diet that limits the amount of fluid you can have, talk about this with your healthcare provider. Regular exercise. Check with your healthcare provider first. Medicines Take any medicines as directed. Some laxatives are safe to use only every now and then. Others can be taken on a regular basis. While laxatives don't cause bowel dependence, they are treating the symptoms. So your constipation may return if you don't make other changes. Talk with your healthcare provider or pharmacist if you have questions. Prescription pain medicines can cause constipation. If you are taking this kind of medicine, ask your healthcare provider if you should also take a stool softener. Medicines you may take to treat constipation include: Fiber supplements Stool softeners Laxatives Enemas Rectal suppositories Follow-up care Follow up with your healthcare provider if symptoms don't get better in the next few days. You may need to have more tests or see a specialist. Call 911 Call 911 if any of these occur: Trouble breathing Stiff, rigid abdomen that is severely painful to touch Confusion Fainting or loss of consciousness Rapid heart rate Chest pain When to seek medical advice Call your healthcare provider right away if any of these occur: Fever of 100.4 F (38 C) or higher, or as directed by your healthcare provider Failure to resume normal bowel movements Pain in your abdomen or back gets worse Nausea or vomiting Swelling in your abdomen Blood in the stool Black, tarry stool Involuntary weight loss Weakness [id number] [employer]. [address] [place] [address], [place] [address]. All rights reserved. This information is not intended as a substitute for professional medical care. Always follow your healthcare professional's instructions. 01/26/2024 15:13:10 Abdominal Pain Abdominal Pain Abdominal pain is pain in the stomach or belly area. Everyone has this pain from time to time. In many cases it goes away on its own. But abdominal pain can sometimes be due to a serious problem, such as appendicitis. So it s important to know when to get help. Causes of abdominal pain There are many possible causes of abdominal pain. Common causes in adults include: Constipation, diarrhea, or gas Stomach acid flowing back up into the esophagus (acid reflux or heartburn) Severe acid reflux, called GERD (gastroesophageal reflux disease) A sore in the lining of the stomach or small intestine (peptic ulcer) Inflammation of the gallbladder, liver, or pancreas Gallstones or kidney stones Appendicitis Intestinal blockage An internal organ pushing through a muscle or other tissue (hernia) Urinary tract infections In women, menstrual cramps, fibroids, ovarian cysts, pelvic inflammatory disease, or endometriosis Inflammation or infection of the intestines, including Crohn's disease and ulcerative colitis Irritable bowel syndrome Diagnosing the cause of abdominal pain Your healthcare provider will give you a physical exam help find the cause of your pain. If needed, you will have tests. Belly pain has many possible causes. So it can be hard to find the reason for your pain. Giving details about your pain can help. Tell your provider where and when you feel the pain, and what makes it better or worse. Also let your provider know if you have other symptoms such as: Fever Tiredness Upset stomach (nausea) Vomiting Changes in bathroom habits Blood in the stool or black, tarry stool Weight loss that you can't explain (involuntary weight loss?) Also report any family history of stomach or intestinal problems, or cancers. Tell your provider about all your alcohol use and drug use. Tell your provider about all medicines you use, including herbs, vitamins, and supplements. Treating abdominal pain Some causes of pain need emergency medical treatment right away. These include appendicitis or a bowel blockage. Other problems can be treated with rest, fluids, or medicines. Your healthcare provider can give you specific instructions for treatment or self-care based on what is causing your pain. If you have vomiting or diarrhea, sip water or other clear fluids. When you are ready to eat solid foods again, start with small amounts of srfg-yf-lpslsn, low-fat foods. These include apple sauce, toast, or crackers. When to get medical care Call 911 or go to the hospital right away if you: Can t pass stool and are vomiting Are vomiting blood or have bloody diarrhea or black, tarry diarrhea Have chest, neck, or shoulder pain Feel like you might pass out Have pain in your shoulder blades with nausea Have sudden, severe belly pain Have new, severe pain unlike any you have felt before Have a belly that is rigid, hard, and hurts to touch Call your healthcare provider if you have: Pain for more than 5 days Bloating for more than 2 days Diarrhea for more than 5 days A fever of 100.4 F (38 C) or higher, or as directed by your healthcare provider Pain that gets worse Weight loss for no reason Continued lack of appetite Blood in your stool How to prevent abdominal pain Here are some tips to help prevent abdominal pain: Eat smaller amounts of food at each meal. Don't eat greasy, fried, or other high-fat foods. Don't eat foods that give you gas. Exercise regularly. Drink plenty of fluids. To help prevent GERD symptoms: Quit smoking. Reduce alcohol and foods that increase stomach acid. Don't use aspirin or zrjd-pjv-suvrwfi pain and fever medicines, if possible. This includes nonsteroidal anti-inflammatory drugs (NSAIDs). Lose excess weight. Finish eating at least 2 hours before you go to bed or lie down. Raise the head of your bed. [id number] [employer]. [address] [place] [address]. All rights reserved. This information is not intended as a substitute for professional medical care. Always follow your healthcare professional's instructions. Follow Up Care 01/26/2024 11:35:50 With:MILKA SCHNEIDER Address: [address] [place] [phone] When:2-4 days [facility] 01-26-2024 Emergency department Discharge summary Discharge Instructions Thank you for allowing [facility] to assist you with your healthcare needs. The following is important discharge information regarding your hospital visit. Diagnosis from Today's Visit Abdominal pain Constipation What to Do Next Instructions from Your Care Team You were seen today for abdominal pain. Your labs and imaging did not show any evidence of infection. No acute surgical problems. There was a moderate to large stool burden seen on the CAT scan. Most likely your symptoms are related to constipation and an element of musculoskeletal pain. Will get a short prescription for lidocaine patches which are available hjac-nsz-heresvs as well and muscle relaxer. Do not recommend driving on muscle relaxer. Additionally recommend: Morning of MiraLAX Cleanout When you wake up: - Begin a liquid diet. (See list below for suggestions.) - Begin MiraLAX on a daily basis per instructions 1 hour after waking up: - Mix 4 capfuls of MiraLAX with 32 ounces of a sports drink. - Drink all of the mixture over the next few hours until gone. (Suggestion: An 8-ounce glass every 15-30 minutes equals 2-4 hours.) - It is very important to drink plenty of water and other liquids in order to avoid dehydration and to flush the bowel. (Although alcohol is a liquid, it can make you dehydrated. You should NOT drink alcohol while doing the cleanout.) - NOTE: Please stay home once you have started your cleanout. Also, the use of moist towelettes or wipes may help to minimize discomfort during the cleanout. A nonprescription 1% hydrocortisone cream may also be soothing when applied to the rectal area after each bowel movement. - It is common during the cleanout to experience some nausea, bloating, and/or abdominal distention. If you chilled the mixture prior to drinking it, you could experience chills from consuming so much cold liquid in a short time period. If you develop nausea or vomiting, slow down the rate at which you drink the solution. Please attempt to drink all of the laxative solution even if it takes you longer. Once stooling slows down, you may resume eating solid food. Liquid Diet - Juices - Coffee and Tea - Powdered Drinks - Water/Vitamin Water - Diet/Regular Sodas - Sports Drinks - Popsicles - Jell-O - Broths or Bouillon - Ensure or Boost No qualifying data available. Post Acute Orders No qualifying data available. You Need to Schedule the Following Appointments Follow Up with MILKA SCHNEIDER When:Within 2-4 days Where:[address] [place], [place] [address] [place] [phone] Allergies Imitrex tunnel vision Ultram azithromycin Medications Please ask your primary doctor [...] 5 Days Printed Prescription New lidocaine topical (Blue-Emu Lidocaine 4% topical PATCH) 1 patch(es) Topical Once a day Duration: 5 Days Printed Prescription New polyethylene glycol 3350 (MiraLax oral powder for reconstitution) See instructions Duration: 1 Days Mix in 32 ounce bottle of Gatorade. Shake and chill in refrigerator for 1 hour. Drink one 8 ounce glass of Miralax mix every hour, til gone Printed Prescription Unchanged acetaminophen-codeine (Tylenol with Codeine [...] retail pharmacies. Medication Leaflets cyclobenzaprine (marlene aparicio) Marlo, Fexmid What is the most important information [...] may report side effects to FDA at [phone]. What other drugs will affect cyclobenzaprine? Using [...] drugs may affect cyclobenzaprine, including prescription and bdyv-zhe-hgabfos medicines, vitamins, and herbal products. Not all [...] to ensure that the information provided by [employer]. ('[employer]') is accurate, up-to-date, and complete, but no guarantee is made to that effect. Drug information contained herein may be time sensitive. [employer] information has been compiled for use by healthcare practitioners and consumers in the [place] and therefore [employer] does not warrant that uses outside of the [place] are appropriate, unless specifically indicated otherwise. [employer] drug information does not endorse drugs, diagnose patients or recommend therapy. [employer] drug information is an informational resource designed [...] effective or appropriate for any given patient. [employer] does not assume any responsibility for any aspect of healthcare administered with the aid of information [employer] provides. The information contained herein is not intended to cover all possible uses, directions, precautions, warnings, drug interactions, allergic reactions, or adverse effects. If you have questions about the drugs you are taking, check with your doctor, nurse or pharmacist. Copyright 6057-1870 [employer]. Version: 7.01. Revision Date: 01/19/2023. polyethylene glycol 3350 (mello ee ETH il een GLYE kol) ClearLax, GaviLAX, HealthyLax, MiraLax, Natura-Lax, [id number], [employer] ClearLax What is the most important information I should know about polyethylene glycol 3350? You should not use this medicine if you have a bowel obstruction or intestinal blockage. If you have any of these conditions, you could have dangerous or life-threatening side effects from polyethylene glycol 3350. Do not use polyethylene glycol 3350 more than once per day. Call your doctor if you are still constipated or irregular after using this medication for 7 days in a row. What is polyethylene glycol 3350? Polyethylene glycol 3350 is a laxative solution that increases the amount of water in the intestinal tract to stimulate bowel movements. Polyethylene glycol 3350 is used as a laxative to treat occasional constipation or irregular bowel movements. Polyethylene glycol 3350 may also be used for purposes not listed in this medication guide. What should I discuss with my healthcare provider before taking polyethylene glycol 3350? You should not use this medicine if you are allergic to polyethylene glycol, or if you have a bowel obstruction or intestinal blockage. If you have any of these conditions, you could have dangerous or life-threatening side effects from polyethylene glycol 3350. People with eating disorders (such as anorexia or bulimia) should not use this medication without the advice of a doctor. To make sure this medicine is safe for you, tell your doctor if you have: nausea, vomiting, or severe stomach pain; ulcerative colitis; irritable bowel syndrome; kidney disease; or if you have had a sudden change in bowel habits that has lasted 2 weeks or longer. FDA category C. It is not known whether polyethylene glycol 3350 will harm an unborn baby. Tell your doctor if you are or plan to become while using this medication. It is not known whether polyethylene glycol 3350 passes into breast milk or if it could harm a nursing baby. Tell your doctor if you are breast-feeding a baby. How should I take polyethylene glycol 3350? Follow all directions on your prescription label. Do not use this medicine in larger or smaller amounts or for longer than recommended. To use the powder form of this medicine, measure your dose with the medicine cap on the bottle. This cap should contain dose rooney on the inside of it. Pour the powder into 4 to 8 ounces of a cold or hot beverage such as water, juice, soda, coffee, or tea. Stir this mixture and drink it right away. Do not save for later use. Polyethylene glycol 3350 should produce a bowel movement within 1 to 3 days of using the medication. Polyethylene glycol 3350 normally causes loose or even watery stools. Do not use polyethylene glycol 3350 more than once per day. Call your doctor if you are still constipated or irregular after using this medication for 7 days in a row. Store at room temperature away from moisture and heat. What happens if I miss a dose? Take the missed dose as soon as you remember. Skip the missed dose if it is almost time for your next scheduled dose. Do not take extra medicine to make up the missed dose. What happens if I overdose? Seek emergency medical attention or call the Poison Help line at . What should I avoid while taking polyethylene glycol 3350? Follow your doctor's instructions about any restrictions on food, beverages, or activity. What are the possible side effects of polyethylene glycol 3350? Get emergency medical help if you have signs of an allergic reaction: hives; difficult breathing; swelling of your face, lips, tongue, or throat. Stop taking this medicine and call your doctor at once if you have: severe or bloody diarrhea; rectal bleeding; blood in your stools; or severe and worsening stomach pain. Common side effects may include: bloating, gas, upset stomach; dizziness; or increased sweating. This is not a complete list of side effects and others may occur. Call your doctor for medical advice about side effects. You may report side effects to FDA at 6-416-EJG-8635. What other drugs will affect polyethylene glycol 3350? Other drugs may interact with polyethylene glycol 3350, including prescription and hlck-jww-wbjxgoi medicines, vitamins, and herbal products. Tell each of your health care providers about all medicines you use now and any medicine you start or stop using. Where can I get more information? Your pharmacist can provide more information about polyethylene glycol 3350. Remember, keep this and all other medicines out of the reach of children, never share your medicines with others, and use this medication only for the indication prescribed. Every effort has been made to ensure that the information provided by [employer]. ('[employer]') is accurate, up-to-date, and complete, but no guarantee is made to that effect. Drug information contained herein may be time sensitive. [employer]! information has been compiled for use by healthcare practitioners and consumers in the [place] and therefore [employer]! does not warrant that uses outside of the [place] are appropriate, unless specifically indicated otherwise. [employer]!'s drug information does not endorse drugs, diagnose patients or recommend therapy. [employer] drug information is an informational resource designed [...] effective or appropriate for any given patient. [facility] does not assume any responsibility for any aspect of healthcare administered with the aid of information [facility] provides. The information contained herein is not intended to cover all possible uses, directions, precautions, warnings, drug interactions, allergic reactions, or adverse effects. If you have questions about the drugs you are taking, check with your doctor, nurse or pharmacist. Copyright 8723-4572 [facility] [employer]. Version: 4.01. Revision Date: 01/17/2023. lidocaine topical (LYE aviles lopez TOP i yosvany) AneCream, Bactine, Glydo, Lidoderm, LidoRx, Medi-Quik Preston, RadiaGuard, RectiCare, Regenecare PAINTING Preston, Solarcaine Cool Aloe What is the most [...] may report side effects to FDA at 2-159-USG-5329. What other drugs will affect lidocaine topical? Medicine used on the skin is not likely to be affected by other drugs you use. But many drugs can interact with each other. Tell each of your health care providers about all medicines you use, including prescription and ytum-pzk-nhxyfni medicines, vitamins, and herbal products. Where can I get more information? Your pharmacist can provide more information about lidocaine topical. Remember, keep this and all other medicines out of the reach of children, never share your medicines with others, and use this medication only for the indication prescribed. Every effort has been made to ensure that the information provided by [employer]. ('[employer]') is accurate, up-to-date, and complete, but no guarantee is made to that effect. Drug information contained herein may be time sensitive. [employer] information has been compiled for use by healthcare practitioners and consumers in the [place] and therefore [employer]! does not warrant that uses outside of the [place] are appropriate, unless specifically indicated otherwise. [employer] drug information does not endorse drugs, diagnose patients or recommend therapy. [employer] drug information is an informational resource designed [...] effective or appropriate for any given patient. [employer] does not assume any responsibility for any aspect of healthcare administered with the aid of information [employer] provides. The information contained herein is not intended to cover all possible uses, directions, precautions, warnings, drug interactions, allergic reactions, or adverse effects. If you have questions about the drugs you are taking, check with your doctor, nurse or pharmacist. Copyright 4983-1362 [employer]. Version: 04.18. Revision Date: 03/07/2023. Education Materials Constipation (Adult) Constipation means that you have bowel movements that are less frequent than usual. Stools often become very hard and difficult to pass. Constipation is very common. At some point in life, it affects almost everyone. Since everyone's bowel habits are different, what is constipation to one person may not be to another. Your healthcare provider may do tests to diagnose constipation. It depends on what he or she finds when evaluating you. Symptoms of constipation include: Abdominal pain Bloating Vomiting Painful bowel movements Itching, swelling, bleeding, or pain around the anus Causes Constipation can have many causes. These include: Diet low in fiber Too much dairy Not drinking enough liquids Lack of exercise or physical activity (especially true for older adults) Changes in lifestyle or daily routine, including , aging, work, and travel Frequent use or misuse of laxatives Ignoring the urge to have a bowel movement or delaying it until later Medicines, such as certain prescription pain medicines, iron supplements, antacids, certain antidepressants, and calcium supplements Diseases like irritable bowel syndrome, bowel obstructions, stroke, diabetes, thyroid disease, Parkinson disease, hemorrhoids, and colon cancer Complications Potential complications of constipation can include: Hemorrhoids Rectal bleeding from hemorrhoids or anal fissures (skin tears) Hernias Dependency on laxatives Chronic constipation Fecal impaction, a severe form of constipation in which a large amount of hard stool is in your rectum that you can't pass Bowel obstruction or perforation Home care All treatment should be done after talking with your healthcare provider. This is especially true if you have another medical problems, are taking prescription medicines, or are an older adult. Treatment most often involves lifestyle changes. You may also need medicines. Your healthcare provider will tell you which will work best for you. Follow the advice below to help avoid this problem in the future. Lifestyle changes These lifestyle changes can help prevent constipation: Diet. Eat a high-fiber diet, with fresh fruit and vegetables, and reduce dairy intake, meats, and processed foods Fluids. It's important to get enough fluids each day. Drink plenty of water when you eat more fiber. If you are on diet that limits the amount of fluid you can have, talk about this with your healthcare provider. Regular exercise. Check with your healthcare provider first. Medicines Take any medicines as directed. Some laxatives are safe to use only every now and then. Others can be taken on a regular basis. While laxatives don't cause bowel dependence, they are treating the symptoms. So your constipation may return if you don't make other changes. Talk with your healthcare provider or pharmacist if you have questions. Prescription pain medicines can cause constipation. If you are taking this kind of medicine, ask your healthcare provider if you should also take a stool softener. Medicines you may take to treat constipation include: Fiber supplements Stool softeners Laxatives Enemas Rectal suppositories Follow-up care Follow up with your healthcare provider if symptoms don't get better in the next few days. You may need to have more tests or see a specialist. Call 911 Call 911 if any of these occur: Trouble breathing Stiff, rigid abdomen that is severely painful to touch Confusion Fainting or loss of consciousness Rapid heart rate Chest pain When to seek medical advice Call your healthcare provider right away if any of these occur: Fever of 100.4 F (38 C) or higher, or as directed by your healthcare provider Failure to resume normal bowel movements Pain in your abdomen or back gets worse Nausea or vomiting Swelling in your abdomen Blood in the stool Black, tarry stool Involuntary weight loss Weakness 9055-9321 [employer]. [address] [place] [address], [place] [address]. All rights reserved. This information is not intended as a substitute for professional medical care. Always follow your healthcare professional's instructions. Abdominal Pain Abdominal pain is pain in the stomach or belly area. Everyone has this pain from time to time. In many cases it goes away on its own. But abdominal pain can sometimes be due to a serious problem, such as appendicitis. So it s important to know when to get help. Causes of abdominal pain There are many possible causes of abdominal pain. Common causes in adults include: Constipation, diarrhea, or gas Stomach acid flowing back up into the esophagus (acid reflux or heartburn) Severe acid reflux, called GERD (gastroesophageal reflux disease) A sore in the lining of the stomach or small intestine (peptic ulcer) Inflammation of the gallbladder, liver, or pancreas Gallstones or kidney stones Appendicitis Intestinal blockage An internal organ pushing through a muscle or other tissue (hernia) Urinary tract infections In women, menstrual cramps, fibroids, ovarian cysts, pelvic inflammatory disease, or endometriosis Inflammation or infection of the intestines, including Crohn's disease and ulcerative colitis Irritable bowel syndrome Diagnosing the cause of abdominal pain Your healthcare provider will give you a physical exam help find the cause of your pain. If needed, you will have tests. Belly pain has many possible causes. So it can be hard to find the reason for your pain. Giving details about your pain can help. Tell your provider where and when you feel the pain, and what makes it better or worse. Also let your provider know if you have other symptoms such as: Fever Tiredness Upset stomach (nausea) Vomiting Changes in bathroom habits Blood in the stool or black, tarry stool Weight loss that you can't explain (involuntary weight loss?) Also report any family history of stomach or intestinal problems, or cancers. Tell your provider about all your alcohol use and drug use. Tell your provider about all medicines you use, including herbs, vitamins, and supplements. Treating abdominal pain Some causes of pain need emergency medical treatment right away. These include appendicitis or a bowel blockage. Other problems can be treated with rest, fluids, or medicines. Your healthcare provider can give you specific instructions for treatment or self-care based on what is causing your pain. If you have vomiting or diarrhea, sip water or other clear fluids. When you are ready to eat solid foods again, start with small amounts of snlh-dx-moyjpq, low-fat foods. These include apple sauce, toast, or crackers. When to get medical care Call 911 or go to the hospital right away if you: Can t pass stool and are vomiting Are vomiting blood or have bloody diarrhea or black, tarry diarrhea Have chest, neck, or shoulder pain Feel like you might pass out Have pain in your shoulder blades with nausea Have sudden, severe belly pain Have new, severe pain unlike any you have felt before Have a belly that is rigid, hard, and hurts to touch Call your healthcare provider if you have: Pain for more than 5 days Bloating for more than 2 days Diarrhea for more than 5 days A fever of 100.4 F (38 C) or higher, or as directed by your healthcare provider Pain that gets worse Weight loss for no reason Continued lack of appetite Blood in your stool How to prevent abdominal pain Here are some tips to help prevent abdominal pain: Eat smaller amounts of food at each meal. Don't eat greasy, fried, or other high-fat foods. Don't eat foods that give you gas. Exercise regularly. Drink plenty of fluids. To help prevent GERD symptoms: Quit smoking. Reduce alcohol and foods that increase stomach acid. Don't use aspirin or plqr-ckk-gbigrkw pain and fever medicines, if possible. This includes nonsteroidal anti-inflammatory drugs (NSAIDs). Lose excess weight. Finish eating at least 2 hours before you go to bed or lie down. Raise the head of your bed. 8695-9050 [employer]. [address] [place] [address], [place] [address]. All rights reserved. This information is not intended as a substitute for professional medical care. Always follow your healthcare professional's instructions. Additional Information VACCINATE! IT SAVES LIVES! Members of the community who have not yet received the COVID-19 vaccine and would like to receive it can visit one of [facility] vaccine clinics. There are many vaccine clinic locations within the [facility]. For locations and available times, please visit [email or web address] It is important to note that some COVID mobile vaccine clinics are held outdoors and may be canceled in rainy or stormy conditions. To learn more about pediatric vaccinations (ages 5-11), we invite you to visit the [facility] webpage. [email or web address] To learn more about the COVID-19 vaccine, we invite you to visit the CDC website for a list of frequently asked questions. https://www.cdc.gov/coronavirus/ 2019-ncov/vaccines/faq.html [facility] Patient Portal Access Instructions: Stay connected with your healthcare team and access your personal medical information anytime with the [employer] Patient Portal. If you would like a full copy of your medical records please contact the [facility] Medical Records Department Sunday through Sunday between 8a.m. and 4:30p.m. Please follow the directions below to access the portal: 1.Access the email account you provided upon registration to the [facility].2.Look for an invitation email from [facility].3.Open the email and access the invitation link: Accept Invitation to [facility].Fill in the required lugo to create your account. Sign into [email or web address] with your username and password that you [...] you will allow to register on the [facility] Patient Portal for access to your information. You can also access the [facility] Patient Portal on the [employer] lisa. Simply click on Health Records under Health Data and then click on the [employer] logo. HOW TO SAFELY DISPOSE OF PRESCRIPTION [...] Call your local pharmacy or go to http://bit.[email or web address]/0M3Ks3s to find one close to you.3.Make use of household items: Use cat litter or old coffee grounds to dispose medications if other options are not available. Mix your drugs with these household products, seal them in an airtight container and throw it into the garbage. Call [facility]: [phone] to be sure your drugs can be [...] a CHART COPY Signatures Patient Education Materials Constipation (Adult) Abdominal Pain Medication Leaflets cyclobenzaprine, polyethylene glycol 3350, lidocaine topical My discharge plan and instructions have been reviewed and explained to me and ILUAN BONNIE L understand my current condition and have read and understand these discharge instructions. I have received a written copy of the plan/instructions. If I have questions, I am aware that I should contact my doctor. Patient/Produce Assistant Signature: Date/Time: Relationship to Patient: Witness Name/Signature: Date/Time: [facility] [place] 01-26-2024 Note ORIGINAL EXAMINATION: CT OF THE ABDOMEN AND PELVIS WITH CONTRAST01/26/2024 2:27 pm TECHNIQUE: CT of the abdomen and pelvis was performed with the administration of intravenous contrast. Multiplanar reformatted images are provided for review. Automated exposure control, iterative reconstruction, and/or weight based adjustment of the mA/kV was utilized to reduce the radiation dose to as low as reasonably achievable. COMPARISON: CT abdomen pelvis 11/06/2022, 01/11/2019, and 10/24/2016. HISTORY: ORDERING SYSTEM PROVIDED HISTORY: Reason for Exam: Pain. Poor injection. FINDINGS: The included lung bases are clear. There is no visible pleural or pericardial effusion. The heart is normal in size. Calcific density seen at the right hepatic dome appears stable and may represent sequela remote trauma or a calcified granuloma, otherwise the liver appears unremarkable. Patient is status post cholecystectomy. The spleen, adrenal glands, and pancreas are within normal limits. The gallbladder is unremarkable. Symmetric nephrograms. No hydronephrosis. The ureters are normal in course and caliber. The urinary bladder appears unremarkable. Patient status post hysterectomy. The large and small bowel demonstrate no obstruction. The appendix is normal. No free intraperitoneal fluid or gas is identified. The aorta is normal in caliber. No abdominopelvic lymphadenopathy. There is no acute fracture. Stable appearance of a sclerotic lesion in the iliac bones since exam 10/24/2016. Mild degenerative changes are present in the spine. No acute soft tissue abnormality. Nodular soft tissue and calcified densities in the posterior right and left back likely due to injection granulomas. IMPRESSION: No acute abdominopelvic process. I have personally reviewed the images of this examination and agree with the resident's findings and interpretation. Interpreted by: Jackson Paulson MD Preliminary Report By: Sruthi Haas Electronically signed By Jackson Paulson MD Dictated Date: 01/26/2024 2:37:08 PM Prelim Date: 01/26/2024 2:50:49 PM Sign Date: 01/26/2024 3:23:18 PM Ordering Provider: ISRAEL BOLTON [facility] [place] 12-09-2023 [facility] colin instructions Patient Education 12/09/2023 17:29:41 Hypertension, To Be Confirmed High Blood Pressure, To Be Confirmed, No Treatment Your blood pressure today was higher than normal. Sometimes anxiety or pain can cause a temporary rise in blood pressure. It later returns to normal. Blood pressure that is high only one time doesn t mean that you have high blood pressure (hypertension). High blood pressure is a chronic illness. But you should have your blood pressure measured again within the next few days to find out if it s still high. Blood pressure measurements are given as 2 numbers. Systolic blood pressure is the upper number. This is the pressure when the heart contracts. Diastolic blood pressure is the lower number. This is the pressure when the heart relaxes between beats. You will see your blood pressure readings written together. For example, a person with a systolic pressure of 118 and a diastolic pressure of 78 will have 118/78 written in the medical record. Blood pressure is categorized as normal, elevated, or stage 1 or stage 2 high blood pressure: Normal blood pressure is systolic of less than 120 and diastolic of less than 80 (120/80) Elevated blood pressure is systolic of 120 to 129 and diastolic less than 80 Stage 1 high blood pressure is systolic is 130 to 139 or diastolic between 80 to 89 Stage 2 high blood pressure is when systolic is 140 or higher or the diastolic is 90 or higher Lifestyle changes such as weight loss, exercise, and quitting smoking, can help manage your blood pressure. Have your blood pressure checked regularly to be sure it is under control. Home care To track your blood pressure, your provider may ask you to come into the office at different times and on different days. If your healthcare provider asks you to check your readings at home, ask him or her what times of the day to test and for how many days. Before you leave the office, ask your provider to show you how to take your blood pressure and be sure to ask questions if you don't understand something. Consider buying an automatic blood pressure monitor. Ask your provider for a recommendation as well as the proper size cuff to fit your arm. You can buy blood pressure monitors at most pharmacies. The [place] [employer] recommends the following guidelines for home blood pressure monitoring: Don't smoke or drink coffee or other caffeinated drinks for 30 minutes before taking your blood pressure. Go to the bathroom before the test. Relax for 5 minutes before taking the measurement. Sit with your back supported (don't sit on a couch or soft chair); keep your feet on the floor uncrossed. Place your arm on a solid flat surface (like a table) with the upper part of the arm at heart level. Place the middle of the cuff directly above the bend of the elbow. Check the monitor's instruction manual for an illustration. Take multiple readings. When you measure, take 2 to 3 readings one minute apart and record all of the results. Take your blood pressure at the same time every day, or as your healthcare provider recommends. Record the date, time, and blood pressure reading. Take the record with you to your next medical appointment. If your blood pressure monitor has a built-in memory, simply take the monitor with you to your next appointment. Call your provider if you have several high readings. Don't be frightened by a single high blood pressure reading, but if you get several high readings, check in with your healthcare provider. Note: When blood pressure reaches a systolic (top number) of 180 or higher OR diastolic (bottom number) of 110 or higher, seek emergency medical treatment. Follow-up care Keep all of your follow up appointments. If your blood pressure is more than 120 over 80 on 2 out of 3 days, you will need to follow up with your healthcare provider for more evaluation and treatment. Don t put this off! High blood pressure can be treated. High blood pressure that s not treated raises your risk for heart attack, heart failure, and stroke. When to seek medical advice Call your healthcare provider right away if any of these occur: Blood pressure reaches a systolic (top number) of 180 or higher, OR diastolic (bottom number) of 110 or higher Chest pain or shortness of breath Severe headache Throbbing or rushing sound in the ears Nosebleed Sudden severe pain in your belly (abdomen) Extreme drowsiness, confusion, or fainting Dizziness or dizziness with spinning sensation (vertigo) Weakness of an arm or leg or one side of the face You have problems speaking or seeing 4204-3620 [employer]. [address] [place] [address], [place] [address]. All rights reserved. This information is not intended as a substitute for professional medical care. Always follow your healthcare professional's instructions. 12/09/2023 17:29:27 Myalgias Myalgias Myalgias are another word for muscle aches and soreness. This is a symptom, not a disease. Myalgias can have many causes. A cold, the flu, or an acute infection can cause them. So can any illness with a high fever. They may happen after exertion (such as heavy exercise) or injury (such as an accident or fall). Some medicines (such as statins and certain antidepressants) can cause myalgias. They can also be a symptom of chronic or ongoing medical problems (such as lupus, chronic fatigue, or hypothyroidism). With these illnesses, other serious symptoms often occur in addition to muscle pain and soreness. Myalgias most often go away on their own. If they don't go away, come back, or are severe, testing may be needed to help find the cause. Home care Rest until you feel better. Follow instructions that you were given for how to care for yourself. This may depend on the cause of your myalgias. If myalgia is thought to be due to a medicine, be sure to talk to the doctor that prescribed the medicine about the best course of action. To control pain, take prescription or lxcp-dor-nnlxmae medicines as directed. Unless told not to, you can try acetaminophen or ibuprofen. Follow-up care Follow up with your healthcare provider or as advised. If your symptoms do not go away in a few days or if they come back, follow up with your healthcare provider for an exam and testing. When to see medical advice Call your healthcare provider for any of the following: Fever of 100.4 F (38 C) or higher, or as directed by your healthcare provider Pain that gets worse and not better, or that goes away and comes back New joint pains New rash Severe headache, neck pain, drowsiness, or confusion [id number] [employer]. [address] [place] [address], [place] [address]. All rights reserved. This information is not intended as a substitute for professional medical care. Always follow your healthcare professional's instructions. 12/09/2023 17:29:20 Neck Spasm, No Trauma Neck Spasm A spasm of the neck muscles can happen after a sudden awkward neck movement. Sleeping with your neck in a crooked position can also cause spasm. Some people respond to emotional stress by tensing the muscles of their neck, shoulders, and upper back. If neck spasm lasts long enough, it can cause a headache. The treatment described below will usually help the pain to go away in 5 to 7 days. Pain that continues may need further evaluation or other types of treatment such as physical therapy. Home care Rest and relax the muscles. Use a comfortable pillow that supports the head and keeps the spine in a neutral position. The position of the head should not be tilted forward or backward. A rolled up towel may help for a custom fit. Some people find relief with heat. Heat can be applied with either a warm shower or bath or a moist towel heated in the microwave and massage. Others prefer cold packs. You can make an ice pack by filling a plastic bag that seals at the top with ice cubes or crushed ice and then wrapping it with a thin towel. Try both and use the method that feels best for 15 to 20 minutes, several times a day. Whether using ice or heat, be careful that you don't injure your skin. Never put ice directly on the skin. Always wrap the ice in a towel or other type of cloth. This is very important, especially in people with poor skin sensation. Try to reduce your stress level. Emotional stress can lead to neck muscle tension and get in the way of or delay the healing process. You may use pcuw-nqk-bxaejji pain medicine to control pain, unless another medicine was prescribed. If you have chronic liver or kidney disease or ever had a stomach ulcer or gastrointestinal bleeding, talk with your healthcare provider before using these medicines. Follow-up care Follow up with your healthcare provider if your symptoms don't show signs of improvement after one week. Physical therapy or further tests may be needed. If X-rays, CT scans, or MRI scans were taken, you will be told of any new findings that may affect your care. Call 911 Call 911 if you have: Sudden weakness or numbness in one or both arms or legs Neck swelling, trouble with or painful swallowing Trouble breathing Chest pain When to seek medical advice Call your healthcare provider right away if any of these occur: Pain becomes worse or spreads into one or both arms or legs Increasing headache with nausea or vomiting Fever of 100.4 F (38 C) or higher, or as directed by your healthcare provider [employer] [id number] [employer]. [address] [place] [address], [place] [address]. All rights reserved. This information is not intended as a substitute for professional medical care. Always follow your healthcare professional's instructions. Follow Up Care 12/09/2023 15:31:29 With:MILKA SCHNEIDER Address: [facility] [address] [phone] Business (1) When:2-4 days Comments:Schedule appointment as soon as possibleReturn to ED if symptoms worsenSleep in a neutral positionAvoid shoulder straps over that muscle and lifting with that sideUse Anaprox and Tylenol for pain and cyclobenzaprine for spasmFollow-up for blood pressure recheck and symptoms as described [facility] 12-09-2023 Emergency department Discharge summary Discharge Instructions Thank you for allowing [facility] to assist you with your healthcare needs. The following is important discharge information regarding your hospital visit. Diagnosis from Today's Visit Muscle spasm of cervical muscle of neck What to Do Next Instructions from Your Care Team No qualifying data available. Post Acute Orders No qualifying data available. You Need to Schedule the Following Appointments Follow Up with MILKA SCHNEIDER When:Within 2-4 days Where:[facility] [place] [address] [phone] [employer] (1) Additional Information: Schedule appointment as soon as possible Return to ED if symptoms worsen Sleep in a neutral position Avoid shoulder straps over that muscle and lifting with that side Use Anaprox and Tylenol for pain and cyclobenzaprine for spasm Follow-up for blood pressure recheck and symptoms as described Allergies Imitrex tunnel vision azithromycin Medications Please ask your primary doctor or pharmacist before taking any other medication not listed, including over the counter drugs, herbal medications, vitamins and or supplements as they may interact with your home medications. What How Much When Why Instructions Last Dose New naproxen (Anaprox-DS 550 mg oral tablet) 1 tab(s) by mouth Two (2) times a day Duration: 10 Days As needed for pain with food Printed Prescription Unchanged acetaminophen-codeine (Tylenol with Codeine [...] medication providers or retail pharmacies. Education Materials High Blood Pressure, To Be Confirmed, No Treatment Your blood pressure today was higher than normal. Sometimes anxiety or pain can cause a temporary rise in blood pressure. It later returns to normal. Blood pressure that is high only one time doesn t mean that you have high blood pressure (hypertension). High blood pressure is a chronic illness. But you should have your blood pressure measured again within the next few days to find out if it s still high. Blood pressure measurements are given as 2 numbers. Systolic blood pressure is the upper number. This is the pressure when the heart contracts. Diastolic blood pressure is the lower number. This is the pressure when the heart relaxes between beats. You will see your blood pressure readings written together. For example, a person with a systolic pressure of 118 and a diastolic pressure of 78 will have 118/78 written in the medical record. Blood pressure is categorized as normal, elevated, or stage 1 or stage 2 high blood pressure: Normal blood pressure is systolic of less than 120 and diastolic of less than 80 (120/80) Elevated blood pressure is systolic of 120 to 129 and diastolic less than 80 Stage 1 high blood pressure is systolic is 130 to 139 or diastolic between 80 to 89 Stage 2 high blood pressure is when systolic is 140 or higher or the diastolic is 90 or higher Lifestyle changes such as weight loss, exercise, and quitting smoking, can help manage your blood pressure. Have your blood pressure checked regularly to be sure it is under control. Home care To track your blood pressure, your provider may ask you to come into the office at different times and on different days. If your healthcare provider asks you to check your readings at home, ask him or her what times of the day to test and for how many days. Before you leave the office, ask your provider to show you how to take your blood pressure and be sure to ask questions if you don't understand something. Consider buying an automatic blood pressure monitor. Ask your provider for a recommendation as well as the proper size cuff to fit your arm. You can buy blood pressure monitors at most pharmacies. The [place] [employer] recommends the following guidelines for home blood pressure monitoring: Don't smoke or drink coffee or other caffeinated drinks for 30 minutes before taking your blood pressure. Go to the bathroom before the test. Relax for 5 minutes before taking the measurement. Sit with your back supported (don't sit on a couch or soft chair); keep your feet on the floor uncrossed. Place your arm on a solid flat surface (like a table) with the upper part of the arm at heart level. Place the middle of the cuff directly above the bend of the elbow. Check the monitor's instruction manual for an illustration. Take multiple readings. When you measure, take 2 to 3 readings one minute apart and record all of the results. Take your blood pressure at the same time every day, or as your healthcare provider recommends. Record the date, time, and blood pressure reading. Take the record with you to your next medical appointment. If your blood pressure monitor has a built-in memory, simply take the monitor with you to your next appointment. Call your provider if you have several high readings. Don't be frightened by a single high blood pressure reading, but if you get several high readings, check in with your healthcare provider. Note: When blood pressure reaches a systolic (top number) of 180 or higher OR diastolic (bottom number) of 110 or higher, seek emergency medical treatment. Follow-up care Keep all of your follow up appointments. If your blood pressure is more than 120 over 80 on 2 out of 3 days, you will need to follow up with your healthcare provider for more evaluation and treatment. Don t put this off! High blood pressure can be treated. High blood pressure that s not treated raises your risk for heart attack, heart failure, and stroke. When to seek medical advice Call your healthcare provider right away if any of these occur: Blood pressure reaches a systolic (top number) of 180 or higher, OR diastolic (bottom number) of 110 or higher Chest pain or shortness of breath Severe headache Throbbing or rushing sound in the ears Nosebleed Sudden severe pain in your belly (abdomen) Extreme drowsiness, confusion, or fainting Dizziness or dizziness with spinning sensation (vertigo) Weakness of an arm or leg or one side of the face You have problems speaking or seeing [id number] [employer]. [address] [place] [address]. All rights reserved. This information is not intended as a substitute for professional medical care. Always follow your healthcare professional's instructions. Myalgias Myalgias are another word for muscle aches and soreness. This is a symptom, not a disease. Myalgias can have many causes. A cold, the flu, or an acute infection can cause them. So can any illness with a high fever. They may happen after exertion (such as heavy exercise) or injury (such as an accident or fall). Some medicines (such as statins and certain antidepressants) can cause myalgias. They can also be a symptom of chronic or ongoing medical problems (such as lupus, chronic fatigue, or hypothyroidism). With these illnesses, other serious symptoms often occur in addition to muscle pain and soreness. Myalgias most often go away on their own. If they don't go away, come back, or are severe, testing may be needed to help find the cause. Home care Rest until you feel better. Follow instructions that you were given for how to care for yourself. This may depend on the cause of your myalgias. If myalgia is thought to be due to a medicine, be sure to talk to the doctor that prescribed the medicine about the best course of action. To control pain, take prescription or tmjw-cxt-nhbzbix medicines as directed. Unless told not to, you can try acetaminophen or ibuprofen. Follow-up care Follow up with your healthcare provider or as advised. If your symptoms do not go away in a few days or if they come back, follow up with your healthcare provider for an exam and testing. When to see medical advice Call your healthcare provider for any of the following: Fever of 100.4 F (38 C) or higher, or as directed by your healthcare provider Pain that gets worse and not better, or that goes away and comes back New joint pains New rash Severe headache, neck pain, drowsiness, or confusion [id number] [employer]. [address] [place] [address]. All rights reserved. This information is not intended as a substitute for professional medical care. Always follow your healthcare professional's instructions. Neck Spasm A spasm of the neck muscles can happen after a sudden awkward neck movement. Sleeping with your neck in a crooked position can also cause spasm. Some people respond to emotional stress by tensing the muscles of their neck, shoulders, and upper back. If neck spasm lasts long enough, it can cause a headache. The treatment described below will usually help the pain to go away in 5 to 7 days. Pain that continues may need further evaluation or other types of treatment such as physical therapy. Home care Rest and relax the muscles. Use a comfortable pillow that supports the head and keeps the spine in a neutral position. The position of the head should not be tilted forward or backward. A rolled up towel may help for a custom fit. Some people find relief with heat. Heat can be applied with either a warm shower or bath or a moist towel heated in the microwave and massage. Others prefer cold packs. You can make an ice pack by filling a plastic bag that seals at the top with ice cubes or crushed ice and then wrapping it with a thin towel. Try both and use the method that feels best for 15 to 20 minutes, several times a day. Whether using ice or heat, be careful that you don't injure your skin. Never put ice directly on the skin. Always wrap the ice in a towel or other type of cloth. This is very important, especially in people with poor skin sensation. Try to reduce your stress level. Emotional stress can lead to neck muscle tension and get in the way of or delay the healing process. You may use isfs-ytl-qluumng pain medicine to control pain, unless another medicine was prescribed. If you have chronic liver or kidney disease or ever had a stomach ulcer or gastrointestinal bleeding, talk with your healthcare provider before using these medicines. Follow-up care Follow up with your healthcare provider if your symptoms don't show signs of improvement after one week. Physical therapy or further tests may be needed. If X-rays, CT scans, or MRI scans were taken, you will be told of any new findings that may affect your care. Call 911 Call 911 if you have: Sudden weakness or numbness in one or both arms or legs Neck swelling, trouble with or painful swallowing Trouble breathing Chest pain When to seek medical advice Call your healthcare provider right away if any of these occur: Pain becomes worse or spreads into one or both arms or legs Increasing headache with nausea or vomiting Fever of 100.4 F (38 C) or higher, or as directed by your healthcare provider [employer] [phone] [employer]. [address] [place] [address], [place] [address]. All rights reserved. This information is not intended as a substitute for professional medical care. Always follow your healthcare professional's instructions. Additional Information VACCINATE! IT SAVES LIVES! Members of the community who have not yet received the COVID-19 vaccine and would like to receive it can visit one of [facility] vaccine clinics. There are many vaccine clinic locations within the [facility]. For locations and available times, please visit [email or web address] It is important to note that some COVID mobile vaccine clinics are held outdoors and may be canceled in rainy or stormy conditions. To learn more about pediatric vaccinations (ages 5-11), we invite you to visit the [facility] webpage. [email or web address] To learn more about the COVID-19 vaccine, we invite you to visit the CDC website for a list of frequently asked questions. https://www.cdc.gov/coronavirus/ 2019-ncov/vaccines/faq.html [facility] Patient Portal Access Instructions: Stay connected with your healthcare team and access your personal medical information anytime with the [facility] Patient Portal. If you would like a full copy of your medical records please contact the [facility] Medical Records Department Sunday through Sunday between 8a.m. and 4:30p.m. Please follow the directions below to access the portal: 1.Access the email account you provided upon registration to the [facility].2.Look for an invitation email from [facility].3.Open the email and access the invitation link: Accept Invitation to [employer]4.Fill in the required lugo to create your [...] you will allow to register on the [facility] Patient Portal for access to your information. You can also access the [facility] Patient Portal on the [employer]. Simply click on Health Records under Health Data and then click on the [employer] logo. HOW TO SAFELY DISPOSE OF PRESCRIPTION [...] Call your local pharmacy or go to [email or web address] to find one close to you.3.Make use of household items: Use cat litter or old coffee grounds to dispose medications if other options are not available. Mix your drugs with these household products, seal them in an airtight container and throw it into the garbage. Call [facility]: [phone] to be sure your drugs can be [...] a CHART COPY Signatures Patient Education Materials Hypertension, To Be Confirmed Myalgias Neck Spasm, No Trauma Medication Leaflets My discharge plan and instructions have been reviewed and explained to me and I,LUANJORGE LUISE Wander understand my current condition and have read and understand these discharge instructions. I have received a written copy of the plan/instructions. If I have questions, I am aware that I should contact my doctor. Patient/Produce Assistant Signature: Date/Time: Relationship to Patient: Witness Name/Signature: Date/Time: [facility] 08-20-2023 History of Presen t illness Narrative This note was created using [employer]. Subjective Helen Roland is a 53 year old female. HPI Presents with neck pain over the past day. 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 She denies any falls or injury to the neck. She tried a pain patch as well as heating pad ibuprofen and Tylenol. She feels like it has stiffened up. She denies pain radiating to her arms. No weakness numbness or tingling. Limited range of motion of the neck due to pain. Review of Systems All other systems reviewed and are negative. PAST MEDICAL HISTORY Diagnosis Date Anxiety GERD (gastroesophageal reflux disease) High-tone pelvic floor dysfunction 05/09/2017 Hypothyroidism Lung nodules needs repeat ct 04/02 Migraine s/p botox Seasonal allergies Current Outpatient Medications Medication Sig Dispense Refill sucralfate (CARAFATE) 1 gram tablet Take 1 g by mouth three times a day. ranitidine HCl (ZANTAC ORAL) Take by mouth. traZODone (DESYREL) 50 mg tablet Take 50 mg by mouth daily at bedtime. valACYclovir (VALTREX) 500 mg tablet TAKE 1 TABLET BY MOUTH 2 TIMES A DAY for 3 days for outbreak busPIRone (BUSPAR) 5 mg tablet take 1 tablet by mouth twice a day for anxiety magnesium citrate solution Take by mouth. levothyroxine (SYNTHROID) 50 mcg tablet Take 50 mcg by mouth daily before breakfast. escitalopram oxalate (LEXAPRO) 10 mg tablet fluticasone (FLONASE) 50 mcg/actuation nasal spray 1 [place] once daily. LINZESS 290 mcg capsule Take 290 mcg by mouth once daily. hydrOXYzine pamoate (VISTARIL) 25 mg capsule Take 25 mg by mouth three times a day as needed. losartan (COZAAR) 50 mg tablet Take 1 tablet by mouth once daily. methocarbamol (ROBAXIN) 500 mg tablet Take 1 tablet by mouth every 6 hours as needed (Pain) for up to 4 days. 15 tablet 0 famotidine (PEPCID) 20 mg tablet 20 mg. (Patient not taking: Reported on 08/20/2023) oxyCODONE-acetaminophen (PERCOCET) 5-325 mg tablet take 1 [...] daily. (Patient not taking: Reported on 05/27/2022) zolpidem (AMBIEN) 5 mg tablet Take 5 mg by mouth at bedtime as needed. (Patient not taking: Reported on 07/31/2023) ondansetron orally disintegrating (ZOFRAN ODT) 4 mg disintegrating tablet Take 1 tablet by mouth every 12 hours as needed for Nausea/Vomiting. (Patient not taking: Reported on 05/27/2022) 4 tablet 0 estradiol (ESTRACE) 1 mg tablet Take 1 mg by mouth once daily. (Patient not taking: Reported on 05/27/2022) No current facility-administered medications for this visit. PAST SURGICAL HISTORY Procedure Laterality Date CHOLECYSTECTOMY EGD TRANSORAL BIOPSY SINGLE/MULTIPLE 10/25/2011 ESOPHAGOGASTRODUODENOSCOPY TRANSORAL DIAGNOSTIC 04/08/2015 EGD KNEE ARTHROSCOPY/SURGERY Left LIG/TRNSXJ FLP TUBE ABDL/VAG APPR UNI/BI NEUROPLASTY &/TRANSPOS MEDIAN NRV CARPAL TUNNE lt PAST SURGICAL HISTORY OF deviated septum TOTAL ABDOM HYSTERECTOMY 2019 Laparoscopic, uterus and ovaries removed FAMILY HISTORY Problem Relation Age of Onset Psychiatry Mother Seizures Mother Cancer Father prostate Social History Tobacco Use Smoking status: Former Packs/day: 0.50 Years: 10.00 Additional pack years: 0.00 Total pack years: 5.00 Types: Cigarettes Quit date: 09/16/2012 Years since quittin.9 Smokeless tobacco: Never Substance Use Topics Alcohol use: No Drug use: No Objective BP 140/90 Pulse 93 Temp (!) 35.9 C (96.7 F) Resp 20 Wt 84.8 kg (187 lb) LMP 06/18/2019 SpO2 100% BMI 28.43 kg/m Physical Exam Vitals reviewed. Constitutional: Appearance: Normal appearance. HENT: Head: Normocephalic and atraumatic. Neck: Comments: Patient tender along the left trapezius with spasm noted. Limited range of motion on flexion extension and rotation of the neck due to pain. No midline tenderness. Some spasm noted along the left paracervical musculature. No erythema. No rash. Normal strength and sensation in upper and lower extremities. Cardiovascular: Rate and Rhythm: Normal rate and regular rhythm. Heart sounds: Normal heart sounds. Pulmonary: Effort: Pulmonary effort is normal. Breath sounds: Normal breath sounds. Skin: General: Skin is warm and dry. Neurological: Mental Status: She is alert. Assessment and Plan ASSESSMENT/PLAN: 1. Neck pain - ICD9: 723.1, ICD10: M54.2 Muscle spasm. Will treat with muscle relaxer. Patient states she does not do well on steroids so I did instruct continuing anti-inflammatories and Tylenol. Heating pad. Follow-up with PCP if not improving. Will call on xray results. - XR CERV OTHER 4V AP/LAT/OBL Magnolia Koenig PA-C documented in this encounter [facility] 08-20-2023 History of Presen t illness Narrative Radiology Service Progress Note PATIENT NAME: Helen Roland DATE OF SERVICE: August 20, 2023 TIME: 3:09 PM PATIENT IDENTITY VERIFICATION COMPLETED USING TWO (2) IDENTIFIERS: Name and Date of confirmed by patient verbally. FALL SCREENING: Has the patient had 2 falls in the last year or 1 fall with injury or currently using an Ambulatory Assistive Device (Walker, Cane, Wheelchair, Crutches, etc.)? No PATIENT GENDER DATA: Female. status: : No status: NO. PATIENT RELEVANT IMPLANT DATA REVIEWED: Yes PATIENT PRESENTS WITH AN IMPLANTABLE OR ATTACHED COMPLIANCE ENGINEER PRODUCTS: No RADIOLOGY DEPARTMENT: General X-ray: Exam(s) Completed: Spine X-Ray(s): Cervical AP / LAT / OBL PERIPHERAL IV DATA: Not applicable SIGNED BY: RT Daily(R) August 20, 2023 3:09 PM documented in this encounter [facility] 07-31-2023 History of Presen t illness Narrative Radiology Service Progress Note PATIENT NAME: Helen Roland DATE OF SERVICE: July 31, 2023 TIME: 7:29 PM PATIENT IDENTITY VERIFICATION COMPLETED USING TWO (2) IDENTIFIERS: Name and Date of confirmed by patient verbally. FALL SCREENING: Has the patient had 2 falls in the last year or 1 fall with injury or currently using an Ambulatory Assistive Device (Walker, Cane, Wheelchair, Crutches, etc.)? No PATIENT GENDER DATA: Female. status: : No status: NO. PATIENT RELEVANT IMPLANT DATA REVIEWED: Yes PATIENT PRESENTS WITH AN IMPLANTABLE OR ATTACHED COMPLIANCE ENGINEER PRODUCTS: No RADIOLOGY DEPARTMENT: General X-ray: Exam(s) Completed: Upper Extremity X-Ray(s): Fingers/Thumb, left PERIPHERAL IV DATA: Not applicable SIGNED BY: RT Daily(R) July 31, 2023 7:29 PM documented in this encounter [facility] 07-31-2023 History of Presen t illness Narrative This note was created using [employer] Subjective Helen Roland is a 53 year old female. HPI Presents with left fifth finger pain for 1 day. She has some bruising she has noticed. She states she made candles yesterday but did not remember a specific injury. It is painful to move the finger. She denies hitting the finger. No numbness or tingling. Review of Systems Musculoskeletal: Left fifth finger pain All other systems reviewed and are negative. PAST MEDICAL HISTORY Diagnosis Date Anxiety GERD (gastroesophageal reflux disease) High-tone pelvic floor dysfunction 05/09/2017 Hypothyroidism Lung nodules needs repeat ct 04/02 Migraine s/p botox Seasonal allergies Current Outpatient Medications Medication Sig Dispense Refill traZODone (DESYREL) 50 mg tablet Take 50 mg by mouth daily at bedtime. valACYclovir (VALTREX) 500 mg tablet TAKE 1 TABLET BY MOUTH 2 TIMES A DAY for 3 days for outbreak famotidine (PEPCID) 20 mg tablet 20 mg. busPIRone (BUSPAR) 5 mg tablet take 1 tablet by mouth twice a day for anxiety levothyroxine (SYNTHROID) 50 mcg tablet Take 50 mcg by mouth daily before breakfast. escitalopram oxalate (LEXAPRO) 10 mg tablet fluticasone (FLONASE) 50 mcg/actuation nasal spray 1 Preston once daily. LINZESS 290 mcg capsule Take 290 mcg by mouth once daily. hydrOXYzine pamoate (VISTARIL) 25 mg capsule Take 25 mg by mouth three times a day as needed. losartan (COZAAR) 50 mg tablet Take 1 tablet by mouth once daily. oxyCODONE-acetaminophen (PERCOCET) 5-325 mg tablet take 1 tablet by mouth twice a day if needed for pain SCORE OF 7-10 FOR 7 DAYS (Patient not taking: Reported on 12/03/2022) magnesium citrate solution Take by mouth. LORazepam (ATIVAN) 1 mg tablet Take 1 mg by mouth twice daily as needed. (Patient not taking: Reported on 10/27/2022) Omeprazole Magnesium 20 mg tablet Take 20 mg by mouth. (Patient not taking: Reported on 12/03/2022) levothyroxine (SYNTHROID) 137 mcg tablet Take 1 tablet by mouth once daily. (Patient not taking: Reported on 05/27/2022) zolpidem (AMBIEN) 5 mg tablet Take 5 mg by mouth at bedtime as needed. (Patient not taking: Reported on 07/31/2023) ondansetron orally disintegrating (ZOFRAN ODT) 4 mg disintegrating tablet Take 1 tablet by mouth every 12 hours as needed for Nausea/Vomiting. (Patient not taking: Reported on 05/27/2022) 4 tablet 0 estradiol (ESTRACE) 1 mg tablet Take 1 mg by mouth once daily. (Patient not taking: Reported on 05/27/2022) No current facility-administered medications for this visit. PAST SURGICAL HISTORY Procedure Laterality Date CHOLECYSTECTOMY EGD TRANSORAL BIOPSY SINGLE/MULTIPLE 10/25/2011 ESOPHAGOGASTRODUODENOSCOPY TRANSORAL DIAGNOSTIC 04/08/2015 EGD KNEE ARTHROSCOPY/SURGERY Left LIG/TRNSXJ FLP TUBE ABDL/VAG APPR UNI/BI NEUROPLASTY &/TRANSPOS MEDIAN NRV CARPAL TUNNE lt PAST SURGICAL HISTORY OF deviated septum TOTAL ABDOM HYSTERECTOMY 2019 Laparoscopic, uterus and ovaries removed FAMILY HISTORY Problem Relation Age of Onset Psychiatry Mother Seizures Mother Cancer Father prostate Social History Tobacco Use Smoking status: Former Packs/day: 0.50 Years: 10.00 Additional pack years: 0.00 Total pack years: 5.00 Types: Cigarettes Quit date: 09/16/2012 Years since quittin.8 Smokeless tobacco: Never Substance Use Topics Alcohol use: No Drug use: No Objective BP 124/82 Pulse 78 Temp 36.2 C (97.2 F) (Tympanic) Resp 16 Wt 84.4 kg (186 lb) LMP 06/18/2019 SpO2 100% BMI 28.28 kg/m Physical Exam Vitals reviewed. Constitutional: Appearance: Normal appearance. HENT: Head: Normocephalic and atraumatic. Musculoskeletal: Comments: Exam of the left fifth digit reveals bruising to the proximal interphalangeal joint with some mild pain on range of motion. Full range of motion noted. Normal strength against resistance of the MCP PIP and DIP. Normal distal sensation. Cap refill brisk less than 2 seconds. Skin: General: Skin is warm and dry. Neurological: Mental Status: She is alert. Assessment and Plan ASSESSMENT/PLAN: 1. Finger injury, left, initial encounter - ICD9: 959.5, ICD10: S69.92XA X-rays on my read show no acute fracture. Pending radiology read. I did place her in a finger splint. Recommended rest, ice, ibuprofen or Tylenol. Will call on final x-ray results. - XR DIGIT GENERAL 3V FRONTAL/LAT/OBL LEFT Magnolia Koenig PA-C documented in this encounter [facility] 06-22-2023 Hospital Discharg e instructions Patient Education [...] or as directed by your healthcare provider [phone] [employer]. [address] [place] [address]. All rights reserved. This information is not intended as a substitute for professional medical care. Always follow your healthcare professional's instructions. Follow Up Care 06/22/2023 07:58:43 With:MILKA SCHNEIDER Address: [address] [place] [address] [phone] When:2-4 days [facility] 06-22-2023 Note Discharge Instructions Thank you for allowing [facility] to assist you with your healthcare needs. The following is important discharge information regarding your hospital visit. Diagnosis from Today's Visit Left side pain What to Do Next Instructions from Your Care Team No qualifying data available. Post Acute Orders No qualifying data available. You Need to Schedule the Following Appointments Follow Up with MILKA SCHNEIDER When Within 2-4 [facility] [address] [phone] Allergies Imitrex (tunnel vision) azithromycin Medications Please [...] yosvany) AneCream, Bactine, Glydo, Lidoderm, LidoRx, Medi-Quik Preston, RadiaGuard, RectiCare, Regenecare PAINTING Preston, Solarcaine Cool Aloe What is the most [...] may report side effects to FDA at 4-752-OGX-0206. What other drugs will affect lidocaine topical? Medicine used on the skin is not likely to be affected by other drugs you use. But many drugs can interact with each other. Tell each of your health care providers about all medicines you use, including prescription and vyqw-nxe-gtjrvje medicines, vitamins, and herbal products. Where can I get more information? Your pharmacist can provide more information about lidocaine topical. Remember, keep this and all other medicines out of the reach of children, never share your medicines with others, and use this medication only for the indication prescribed. Every effort has been made to ensure that the information provided by [employer]. ('[employer]') is accurate, up-to-date, and complete, but no guarantee is made to that effect. Drug information contained herein may be time sensitive. [employer]! information has been compiled for use by healthcare practitioners and consumers in the [place] and therefore [employer]! does not warrant that uses outside of the [place] are appropriate, unless specifically indicated otherwise. [employer] drug information does not endorse drugs, diagnose patients or recommend therapy. [employer] drug information is an informational resource designed [...] effective or appropriate for any given patient. [employer] does not assume any responsibility for any aspect of healthcare administered with the aid of information [employer] provides. The information contained herein is not intended to cover all possible uses, directions, precautions, warnings, drug interactions, allergic reactions, or adverse effects. If you have questions about the drugs you are taking, check with your doctor, nurse or pharmacist. Copyright 8720-8484 [employer]. Version: 04.18. Revision Date: 03/07/2023. Education Materials [...] or as directed by your healthcare provider [phone] [employer]. [address] [place] [address], [place] [address]. All rights reserved. This information is not intended as a substitute for professional medical care. Always follow your healthcare professional's instructions. Additional Information VACCINATE! IT SAVES LIVES! Members of the community who have not yet received the COVID-19 vaccine and would like to receive it can visit one of [facility] vaccine clinics. There are many vaccine clinic locations within the [facility]. For locations and available times, please visit [email or web address] [email or web address] It is important to note that some COVID mobile vaccine clinics are held outdoors and may be canceled in rainy or stormy conditions. To learn more about pediatric vaccinations (ages 5-11), we invite you to visit the [employer] webpage. https://www.Casengos.org/p ages/3815-Opoty-Atvfcvrdetu-Freq bziwnl-Vttxs-Uungkvajh.html To learn more about the COVID-19 vaccine, we invite you to visit the CDC website for a list of frequently asked questions. https://www.cdc.gov/coronavirus/ 2019-ncov/vaccines/faq.html [employer] Patient Portal Access Instructions: Stay connected with your healthcare team and access your personal medical information anytime with the [employer] Patient Portal. If you would like a full copy of your medical records please contact the [facility] Medical Records Department Sunday through Sunday between 8a.m. and 4:30p.m. Please follow the directions below to access the portal: 1.Access the email account you provided upon registration to the hospital.2.Look for an invitation email from [facility].3.Open the email and access the invitation link: Accept Invitation to [employer]4.Fill in the required lugo to create your account. Sign into [email or web address] with your username and password that you [...] you will allow to register on the [employer] Patient Portal for access to your information. You can also access the [employer] Patient Portal on the [employer]. Simply click on Health Records under Health Data and then click on the [employer] logo. HOW TO SAFELY DISPOSE OF PRESCRIPTION [...] Call your local pharmacy or go to [email or web address] to find one close to you.3.Make use of household items: Use cat litter or old coffee grounds to dispose medications if other options are not available. Mix your drugs with these household products, seal them in an airtight container and throw it into the garbage. Call [facility]: [phone] to be sure your drugs can be [...] been reviewed and explained to me and I,LUANHELEN JOSE Wander understand my current condition and have read and understand these discharge instructions. I have received a written copy of the plan/instructions. If I have questions, I am aware that I should contact my doctor. Patient/Produce Assistant Signature: Date/Time: Relationship to Patient: Witness Name/Signature: Date/Time: [facility] 06-22-2023 Note Sinus rhythm Compared to ECG at 04/07/2023 03:24:37 Electronic Signature: LUBA BAUGH DO 06/22/2023 08:34:24 [facility] 04-07-2023 Hospital Discharg e instructions Patient Education 04/07/2023 04:07:54 [...] make things worse in the long run. [phone] [employer]. [address] [place] [address], [place] [address]. All rights reserved. This information is not intended as a substitute for professional medical care. Always follow your healthcare professional's instructions. Follow Up Care 04/07/2023 02:54:44 With:MILKA SCHNEIDER Address: [address] [place] [address] [phone] When:2-4 days [facility] 04-07-2023 Note Discharge Instructions Thank you for allowing [facility] to assist you with your healthcare needs. [...] 2-4 days Where: [place] [address] [phone] Allergies Imitrex (tunnel vision) azithromycin Medications Please [...] make things worse in the long run. 6417-2241 [employer]. [address] [place] [address]. All rights reserved. This information is not intended as a substitute for professional medical care. Always follow your healthcare professional's instructions. Additional Information VACCINATE! IT SAVES LIVES! Members of the community who have not yet received the COVID-19 vaccine and would like to receive it can visit one of [facility] vaccine clinics. There are many vaccine clinic locations within the [facility]. For locations and available times, please visit [email or web address] gov/. It is important to note that some COVID mobile vaccine clinics are held outdoors and may be canceled in rainy or stormy conditions. To learn more about pediatric vaccinations (ages 5-11), we invite you to visit the [facility] webpage. https://www.[employer]as.org/p ages/6329-Majwi-Mmomrjkkfhb-Freq emqrtv-Zxcxj-Unczyhjws.html To learn more about the COVID-19 vaccine, we invite you to visit the CDC website for a list of frequently asked questions. https://www.cdc.gov/coronavirus/ 2019-ncov/vaccines/faq.html [facility] [employer] Patient Portal Access Instructions: Stay connected with your healthcare team and access your personal medical information anytime with the [employer] Patient Portal. If you would like a full copy of your medical records please contact the [facility] Medical Records Department Sunday through Sunday between 8a.m. and 4:30p.m. Please follow the directions below to access the portal: 1.Access the email account you provided upon registration to the [facility].2.Look for an invitation email from [facility].3.Open the email and access the invitation link: Accept Invitation to [employer]4.Fill in the required lugo to create your account. Sign into [email or web address] with your username and password that you [...] you will allow to register on the [employer] Patient Portal for access to your information. You can also access the [employer] Patient Portal on the [employer] lisa. Simply click on Health Records under Health Data and then click on the [employer]ic logo. HOW TO SAFELY DISPOSE OF PRESCRIPTION [...] Call your local pharmacy or go to http://[email or web address] to find one close to you.3.Make use of household items: Use cat litter or old coffee grounds to dispose medications if other options are not available. Mix your drugs with these household products, seal them in an airtight container and throw it into the garbage. Call [facility]: [phone] to be sure your drugs can be [...] aware that I should contact my doctor. Patient/Produce Assistant Signature: Date/Time: Relationship to Patient: Witness Name/Signature: Date/Time: [facility] 04-07-2023 Note Sinus rhythm EKG interpretation is noted and agreed to in [employer]. The interpretation of this patient's EKG contributed directly to the care and management of this patient. Electronic Signature: KARMA GE DO 04/07/2023 03:29:31 [facility] 03-20-2023 Hospital Discharg e instructions Patient [...] face You have trouble talking or seeing [phone] [employer]. [address] [place] [address]. All rights reserved. This information is not intended as a substitute for professional medical care. Always follow your healthcare professional's instructions. Follow Up Care 03/20/2023 06:14:37 With:MILKA SCHNEIDER Address: [address] [place] [address]- [phone] Business (1) When:2-4 days Comments:Follow-up closely with your doctor, return if any worsening or concerning symptoms. [facility] 03-20-2023 Note Discharge Instructions Thank you for allowing [facility] to assist you with your healthcare needs. [...] if any worsening or concerning symptoms. Where: [address] [place] [address]- [phone] Business (1) Allergies Imitrex (tunnel vision) azithromycin [...] face You have trouble talking or seeing [phone] [employer]. [address] [place] [address], [place] [address]. All rights reserved. This information is not intended as a substitute for professional medical care. Always follow your healthcare professional's instructions. Additional Information VACCINATE! IT SAVES LIVES! Members of the community who have not yet received the COVID-19 vaccine and would like to receive it can visit one of [facility] vaccine clinics. There are many vaccine clinic locations within the [facility]. For locations and available times, please visit [email or web address] gov/. It is important to note that some COVID mobile vaccine clinics are held outdoors and may be canceled in rainy or stormy conditions. To learn more about pediatric vaccinations (ages 5-11), we invite you to visit the [facility] webpage. https://www.[facility].org/p ages/3785-Cfxeq-Vbkpdwsivaf-Freq buewbo-Vsdqo-Bkapeslyu.html To learn more about the COVID-19 vaccine, we invite you to visit the CDC website for a list of frequently asked questions. https://www.cdc.gov/coronavirus/ 2019-ncov/vaccines/faq.html [employer] Patient Portal Access Instructions: Stay connected with your healthcare team and access your personal medical information anytime with the [employer] Patient Portal. If you would like a full copy of your medical records please contact the [facility] Medical Records Department Sunday through Sunday between 8a.m. and 4:30p.m. Please follow the directions below to access the portal: 1.Access the email account you provided upon registration to the [facility].2.Look for an invitation email from [facility].3.Open the email and access the invitation link: Accept Invitation to [employer]4.Fill in the required lugo to create your account. Sign into [email or web address] with your username and password that you [...] you will allow to register on the [employer] Patient Portal for access to your information. You can also access the [employer] Patient Portal on the [employer] lisa. Simply click on Health Records under Health Data and then click on the [employer] logo. HOW TO SAFELY DISPOSE OF PRESCRIPTION [...] Call your local pharmacy or go to [email or web address] [email or web address] to find one close to you.3.Make use of household items: Use cat litter or old coffee grounds to dispose medications if other options are not available. Mix your drugs with these household products, seal them in an airtight container and throw it into the garbage. Call [facility]: [phone] to be sure your drugs can be [...] aware that I should contact my doctor. Patient/Produce Assistant Signature: Date/Time: Relationship to Patient: Witness Name/Signature: Date/Time: [facility] 02-03-2023 Discharge summary Note Date/Time February 03, 2023 4:00pm [facility] Medical Records Department [address] [place] [address] Emergency Department Summary 02/03/23 MR#: [id number] Acct: [id number] Name: HELEN ROLAND Rep #:[id number] : 1970 52 From: Jesus Manuel Boland MD PCP: Dr. Milka Schneider MD Status:DEP ER Location: ED HPI HPI - Psych History of Present Illness Chief Complaint: Anxiety Informant: patient Narrative Narrative: Patient states she has a history of significant anxiety, she is on maintenance medications for this which have recently been increased which have helped the tremors that she has had associated with this, but recently her daughter had a miscarriage and it is sending her anxiety out of control. She denies any suicidality, but it is giving her some of the tremors again. [facility] Medical History Allergies Anginal equivalent Anxiety Anxiety Back problem Breast pain, left Carpal tunnel syndrome Chronic neck pain Chronic thoracic back pain Dietary restriction Difficulty swallowing Fat necrosis of breast Former smoker Generalized headaches GERD (gastroesophageal reflux disease) History of echocardiogram History of staph infection History of steroid therapy History of stress test History of ulceration Hormone deficiency Hypertension Hypothyroidism Intertrigo Macromastia Marijuana use Mass of left breast Mass of right breast Methicillin resistant Staphylococcus epidermidis infection Migraine headache Other acute postprocedural pain Shoulder pain Thyroid disease Vision problem Wears glasses Wears partial dentures Home Medications losartan 25 mg tablet (Cozaar) 25 mg PO DAILY 01/27/21 [History Last Taken 10/06/22 07:30] zolpidem 5 mg tablet (Ambien) 5 mg PO QHS PRN Sleep 07/21/21 [History Last Taken Unknown] escitalopram oxalate 10 mg tablet (Lexapro) 20 mg PO DAILY 02/12/22 [History Last Taken Unknown] buspirone 5 mg tablet 5 mg PO BID 12/11/22 [History Last Taken Unknown] famotidine 20 mg tablet 20 mg PO Q12H 12/11/22 [History Last Taken Unknown] linaclotide 290 mcg capsule (Linzess) 290 mcg PO DAILY PRN PRN CONSTIPATION 12/11/22 [History Last Taken Unknown] levothyroxine 75 mcg tablet 75 mcg PO QODAY 01/03/23 [History Last Taken Unknown] levothyroxine 88 mcg tablet 88 mcg PO QODAY 01/03/23 [History Last Taken Unknown] gabapentin 300 mg/6 mL (6 mL) oral solution 300 mg (6 mL) PO BID nerve pain 30 days #360 mL 01/09/23 [Rx Last Taken Unknown] ondansetron 4 mg disintegrating tablet 4 mg PO Q6H PRN nausea and vomiting #20 tabs 01/19/23 [Rx Last Taken Unknown] lorazepam 1 mg tablet (Ativan) 1 mg PO TID PRN anxiety #10 tabs 02/03/23 [Rx Last Taken Unknown] Allergy/AdvReac Type Severity Reaction Status Date / Time azithromycin Allergy Diarrhea Verified 02/03/23 15:46 [From Zithromax Z-Keo] sumatriptan [From Imitrex] Allergy TUNNEL Verified 02/03/23 15:46 VISION sumatriptan succinate Allergy TUNNEL Verified 02/03/23 15:46 [From Imitrex] VISION tramadol AdvReac nausea and Verified 02/03/23 15:46 vomiting Family History Other Anxiety Depression Epilepsy Hormone deficiency Hypertension Seizures Surgical History History of bilateral breast reduction surgery History of breast lump/mass excision History of carpal tunnel release History of esophagogastroduodenoscopy (EGD) S/P correction of deviated nasal septum S/P hysterectomy S/P laparoscopic cholecystectomy S/P left knee surgery S/P tubal ligation S/P wisdom tooth extraction Social History household members: significant other Smoking Status: Former smoker alcohol intake: never substance use type: does not use additional social history: Does Not Take Aspirin Does Not Take Ibuprofen ROS ROS ED Constitutional Constitutional ED: Denies chills or fever(s) Eyes Eyes: Denies change in vision or diplopia ENT ENT ED: Denies rhinorrhea or sore throat Cardiovascular Cardiovascular: Denies chest pain or palpitations Respiratory/Chest Respiratory/Chest: Denies cough or dyspnea Gastrointestinal Gastrointestinal: Denies abdominal pain, diarrhea, nausea or vomiting Genitourinary Genitourinary ED: Denies dysuria or hematuria Musculoskeletal Musculoskeletal: Denies back pain or neck pain Integumentary Denies abscess or rash Neurologic Neurologic: Reports tremor(s); Denies headache(s), paresthesias, vertigo or weakness Psychiatric Psychiatric: Reports anxiety and depression; Denies homicidal ideation, suicidalideation or suicidal thoughts EXAM Physical Exam Const Vital Signs: 02/03/23 15:46 Temperature 97.3 F L Temperature Source Temporal Pulse Rate 94 Respiratory Rate 18 Blood Pressure 165/104 H Blood Pressure Mean 124 Pulse Ox 100 Oxygen Delivery Method Room Air Positive well nourished and well developed General Appearance ED: well developed and NAD HEENT Reports moist mucous membranes normocephalic and atraumatic Eyes PERRL and EOMs intact bilaterally General Eye ED: Negative for scleral icterus Neck supple Resp normal respiratory effort Extremity normal to inspection General Extremety ED: Negative for edema General Extremity: Negative for edema Neuro oriented x3, CN's II-XII intact bilaterally, no sensory deficits noted and gait normal Sensorium / Orientation: alert Motor Exam: strength 5/5 throughout Psych mental status grossly normal, thought process normal, cooperative, activity/motor behavior normal, denies homicidal ideation and denies suicidal ideation Mood & Affect: depressed, anxious and tearful Thought Content: No suicidality Skin Lesions: no lesions Rashes: no rashes MDM MDM MDM Narrative Medical decision making narrative: I did review an OARRS report, she does get lorazepam from time to time especially the past couple months, she does not have 1 as current. I will give her prescription for a short amount of pills, she is scheduled to see counselor on Sunday, today is Sunday she is comfortable with that plan she has a ridehome today and given an Ativan here. Discharge Plan Triage Chief Complaint: Anxiety ED Provider: Jesus Manuel Boland Dx/Rx/DC Orders Clinical Impression: Anxiety Instructions: Anxiety Disorders Medicine Prescriptions: New lorazepam [Ativan] 1 mg tablet 1 mg PO TID PRN (Reason: anxiety) Qty: 10 0RF No Action losartan [Cozaar] 25 mg tablet 25 mg PO DAILY gabapentin 300 mg/6 mL (6 mL) solution 300 mg PO BID 30 Days Qty: 360 1RF zolpidem [Ambien] 5 mg Tablet 5 mg PO QHS PRN (Reason: Sleep) escitalopram oxalate [Lexapro] 10 mg Tablet 20 mg PO DAILY buspirone 5 mg tablet 5 mg PO BID Patient Comments: take 1 tablet by mouth twice a day for anxiety famotidine 20 mg tablet 20 mg PO Q12H Linzess 290 mcg capsule 290 mcg PO DAILY PRN PRN (Reason: CONSTIPATION) levothyroxine 75 mcg tablet 75 mcg PO QODAY Patient Comments: take 1 tablet by mouth once daily levothyroxine 88 mcg tablet 88 mcg PO QODAY Patient Comments: take 1 tablet by mouth once daily ondansetron 4 mg tablet,disintegrating 4 mg PO Q6H PRN (Reason: nausea and vomiting) Qty: 20 0RF Primary Care Provider: Milka Schneider Referrals: Milka Schneider MD [Primary Care Provider] - Doctor,Your [Non-Staff] - Keep [facility] appointment (Counselor/psychiatrist as scheduled) Disposition Disposition: Home, Self Care Discharge Date/Time: 02/03/23 16:13 What to do if you have Problems For any increased pain, shortness of breath, bleeding, nausea or vomiting, chestpain, or any unexpected problems, contact your Primary Care Provider. Call [facility] ([phone]) or report to the closest Emergency Room. Call 911 if necessary. 02/03/23 1614 <Electronically signed by Jesus Manuel Boland MD> Cosigner Signature (if applicable): CC: Dr. Milka Schneider MD ~ Signed [facility] Work Phone: 1(325) 551-938907-02-2023 Discharge summary Author Dipak Kirkpatrick [facility] December 17, 2022 10:15pm Note Date/Time December 17, 2022 9:57p [facility] Medical Records Department [address] [place] [address] Emergency Department Summary 12/17/22 MR#: [id number] Acct: [id number] Name: HELEN ROLAND Rep #:[id number] : 1970 52 From: Dipak Kirkpatrick MD PCP: Dr. Milka Schneider MD Status:REG ER Location: ED HPI History of Present Illness Chief Complaint: General Illness Detail of Chief Complaint: Tremors question whether her thyroid medication is too high. Informant: patient and spouse/S.O. (According to significant other this has beenan issue for 2 years.) Onset/Context/Timing Onset: Month(s) Context: Sudden Onset Timing: Intermittent and Waxes and wanes Quality: Anxiety, tremors, weight loss. Location: Not applicable Current Severity: Moderate Maximum Severity: Moderate Worsened by: Nothing Relieved by: Nothing Associated Symptoms Associated Symptoms: Tremors and feeling anxious Narrative Narrative: Patient is a 52-year-old woman with history of hypothyroidism who has had her medication changed because of significant fluxes in her TSH level. Presently she denies heat or cold intolerance. She does report palpitations. She does not report fast heart rate. She denies headache. She denies blurred vision, double vision or change in vision. She denies rhinorrhea, congestion, postnasaldrainage or sore throat. She denies cough or shortness of breath. She does report mild chest discomfort. She does report nausea without vomiting or diarrhea. She denies urinary symptoms. She denies paresthesia, anesthesia or motor weakness. She denies problems with balance or coordination. She denies any other symptoms. She does have a therapist and psychiatrist she sees. Review of prior records indicates she has history of generalized headaches. Review of outside records indicates that patient's TSH has varied significantly. Prior similar symptoms: Yes (December 11, 2022) Recent Illness/Hospitalization: No PFSH PFSH Medical History Allergies Anginal equivalent Anxiety Anxiety Back problem Breast pain, left Carpal tunnel syndrome Chronic neck pain Chronic thoracic back pain Dietary restriction Difficulty swallowing Fat necrosis of breast Former smoker Generalized headaches GERD (gastroesophageal reflux disease) History of echocardiogram History of staph infection History of steroid therapy History of stress test History of ulceration Hormone deficiency Hypertension Hypothyroidism Intertrigo Macromastia Marijuana use Mass of left breast Mass of right breast Methicillin resistant Staphylococcus epidermidis infection Migraine headache Other acute postprocedural pain Shoulder pain Thyroid disease Vision problem Wears glasses Wears partial dentures Home Medications losartan 25 mg tablet (Cozaar) 25 mg PO DAILY 01/27/21 [History Last Taken 10/06/22 07:30] zolpidem 5 mg tablet (Ambien) 5 mg PO QHS PRN Sleep 07/21/21 [History Last Taken Unknown] escitalopram oxalate 10 mg tablet (Lexapro) 20 mg PO DAILY 02/12/22 [History Last Taken Unknown] levothyroxine 125 mcg tablet 75 mcg PO DAILY thyroid 06/23/22 [History Last Taken 10/06/22 07:30] ondansetron 4 mg disintegrating tablet 4 mg PO Q6H PRN nausea and vomiting #20 tabs 11/03/22 [Rx Last Taken Unknown] buspirone 5 mg tablet 5 mg PO BID 12/11/22 [History Last Taken Unknown] famotidine 20 mg tablet 20 mg PO DAILY 12/11/22 [History Last Taken Unknown] linaclotide 290 mcg capsule (Linzess) 290 mcg PO DAILY PRN PRN CONSTIPATION 12/11/22 [History Last Taken Unknown] lorazepam 0.5 mg tablet (Ativan) 0.5 mg PO TID PRN anxiety 7 days #20 tabs 12/17/22 [Rx Last Taken Unknown] Allergy/AdvReac Type Severity Reaction Status Date / Time azithromycin Allergy Diarrhea Verified 11/06/22 13:57 [From Zithromax Z-Keo] sumatriptan [From Imitrex] Allergy TUNNEL Verified 11/06/22 13:57 VISION sumatriptan succinate Allergy TUNNEL Verified 11/06/22 13:57 [From Imitrex] VISION tramadol AdvReac nausea and Verified 11/06/22 13:57 vomiting Family History Other Anxiety Depression Epilepsy Hormone deficiency Hypertension Seizures Surgical History History of bilateral breast reduction surgery History of breast lump/mass excision History of carpal tunnel release History of esophagogastroduodenoscopy (EGD) S/P correction of deviated nasal septum S/P hysterectomy S/P laparoscopic cholecystectomy S/P left knee surgery S/P tubal ligation S/P wisdom tooth extraction Social History (Updated 12/17/22 @ 22:[address] Dipak Kirkpatrick MD) household members: significant other Smoking Status: Former smoker alcohol intake: never substance use type: does not use additional social history: Does Not Take Aspirin Does Not Take Ibuprofen ROS ROS ED Constitutional Constitutional ED: Reports weight loss; Denies chills, fever(s) or subjective Eyes Eyes: Denies blurry vision, change in vision or diplopia ENT ENT ED: Denies ear pain, rhinorrhea or sore throat Cardiovascular Cardiovascular: Reports chest pain and palpitations; Denies orthopnea or paroxysmal nocturnal dyspnea Respiratory/Chest Respiratory/Chest: Denies cough, dyspnea, dyspnea on exertion, orthopnea or paroxysmal nocturnal dyspnea Gastrointestinal Gastrointestinal: Denies abdominal pain, constipation, diarrhea, melena, nausea or vomiting Genitourinary Genitourinary ED: Denies dysuria, hematuria or urinary frequency Musculoskeletal Musculoskeletal: Denies arthralgias, back pain, myalgias or neck pain Integumentary Denies Abrasions or rash Neurologic Neurologic: Denies headache(s), paresthesias or weakness Psychiatric Psychiatric: Reports anxiety and depression; Denies suicidal ideation Endocrine Endocrinology: Denies cold intolerance or heat intolerance Hematologic/Lymphatic Hematologic/Lymphatic: Reports systems reviewed and no addt'l complaints, exceptas documented EXAM Physical Exam Const Vital Signs: 12/17/22 20:29 Temperature 96.8 F L Temperature Source Temporal Pulse Rate 97 Respiratory Rate 15 Blood Pressure 145/101 H Blood Pressure Mean 115 Pulse Ox 100 Oxygen Delivery Method Room Air Positive well nourished and well developed Constitutional Narrative: Patient with tremors. She seems slightly anxious. General Appearance ED: well developed; Negative for cyanotic, diaphoretic or pallor HEENT Reports moist mucous membranes HEENT Narrative: Head is atraumatic normocephalic. Ears normal. Mucosa moist. Eyes PERRL and EOMs intact bilaterally General Eye ED: Negative for pale conjunctiva or scleral icterus Neck no lymphadenopathy, supple and no JVD Chest Wall inspection of chest normal Resp normal respiratory effort and clear to auscultation bilaterally Cardio regular rate, regular rhythm, S1 normal heart sound, S2 normal heart sound and no murmurs GI normal to inspection, nondistended, normoactive bowel sounds, non-tender, non-distended and no masses; Negative for hepatosplenomegaly Back/Spine no CVA tenderness Extremity normal to inspection General Extremety ED: Negative for edema or tenderness General Extremity: Negative for edema Neuro oriented x3, CN's II-XII intact bilaterally and no sensory deficits noted Sensorium / Orientation: alert Psych Mood & Affect: anxious Skin no rashes or lesions noted, no wounds and skin turgor normal General Skin Exam: elasticity normal; Negative for jaundice or pallor MDM MDM MDM Narrative Medical decision making narrative: Suspect patient has an anxiety reaction/anxiety attack. Doubt this to be due toher thyroid medication. Will obtain TSH. BMP was obtained to assess electrolytes since she has unusual vague symptoms. She did receive Ativan in the emergency department. Of note her blood pressure is elevated. She does have a history of hypertension. History & Record Review Additional record(s) reviewed:: Prior outpatient record, Prior ED visit and Prior labs Lab Data Attestation: I reviewed the patient's lab results. Lab results narrative: Basic metabolic panel is unremarkable. TSH is normal. Labs: Laboratory Results - last 24 hr 12/17/22 21:23 Sodium 138 Potassium 3.5 Chloride 106 Carbon Dioxide 29.0 Anion Gap 3 L BUN 9 Creatinine 0.97 Estim Creat Clear Calc 62.44 Est GFR (MDRD) Af Amer 78 Est GFR (MDRD) Non-Af 64 BUN/Creatinine Ratio 9.3 L Glucose 92 Calcium 9.6 TSH 3.27 Treatment and Re-Evaluation :: Patient was reassessed at 2210. She was informed of her lab results. She requested a referral to an ecommerce marketing manager. She was informed that her symptoms are most likely due to anxiety. She was prescribed Ativan. Discharge Plan Triage Chief Complaint: General Illness ED Provider: Dipak Kirkpatrick Dx/Rx/DC Orders Clinical Impression: Coarse tremors, Anxiety reaction, History of hypothyroidism Instructions: ED Anxiety Reaction Prescriptions: New lorazepam [Ativan] 0.5 mg tablet 0.5 mg PO TID PRN (Reason: anxiety) 7 Days Qty: 20 0RF No Action losartan [Cozaar] 25 mg tablet 25 mg PO DAILY levothyroxine 125 mcg tablet 75 mcg PO DAILY zolpidem [Ambien] 5 mg Tablet 5 mg PO QHS PRN (Reason: Sleep) escitalopram oxalate [Lexapro] 10 mg Tablet 20 mg PO DAILY buspirone 5 mg tablet 5 mg PO BID Patient Comments: take 1 tablet by mouth twice a day for anxiety famotidine 20 mg tablet 20 mg PO DAILY Linzess 290 mcg capsule 290 mcg PO DAILY PRN PRN (Reason: CONSTIPATION) ondansetron 4 mg tablet,disintegrating 4 mg PO Q6H PRN (Reason: nausea and vomiting) Qty: 20 0RF Primary Care Provider: Milka Schneider Referrals: Milka Schneider MD [Primary Care Provider] - Disposition Disposition: Home, Self Care What to do if you have Problems For any increased pain, shortness of breath, bleeding, nausea or vomiting, chestpain, or any unexpected problems, contact your Primary Care Provider. Call [facility] ([phone]) or report to the closest Emergency Room. Call 911 if necessary. 12/17/222214 <Electronically signed by Dipak Kirkpatrick MD> Cosigner Signature (if applicable): CC: Dr. Milka Schneider MD ~ Signed [facility] Work Phone: 1(584) 230-965206-18-2023 Miscellaneous Notes* Telephone Encounter - Norma Connell RN - 12/03/2022 10:38 AM EDT Reason for Call: left sided mouth/jaw pain Outcome: Advised to be seen within 4 hours. Caller plans to go to [facility] at this time for evaluation and [...] 3. SEVERITY: Moderate to severe, very sensitive 7-8/10 taken tylenol 4. SWELLING: Little in left side of jaw/face 5. OTHER SYMPTOMS: Headache Protocols used: Mouth Uaka-OYBHI-DY, Yrcsrnomb-ESTPM-SU [facility] Discharge instructions Patient Education 11/11/2022 09:37:37 Epigastric Pain [...] don t like the liquid, you can trya chewable one. You may find one works [...] and esomeprazole. Many of these are available orwr-lfd-ipffnad or available as generics. Take an antacid [...] eat them. Certain foods can worsen symptoms ofgastritis. Limit or avoid fatty, fried, and spicy [...] directed by your healthcare provider Abdominal swelling 5210-9025 [employer]. [address] [place] [address]. All rights reserved. This information is not intended as a substitute for professional medical care. Always follow yourhealthcare professional's instructions. Follow Up Care 11/11/2022 09:18:42 With:MILKA SCHNEIDER Address: [facility] [place] [address]- [phone] When:2-4 days [facility] 05-27-2023 Emergency department Discharge summary Discharge Instructions Thank you for allowing [facility] to assist you with your healthcare needs. The following is importantdischarge information regarding your hospital visit. Diagnosis from Today's Visit Pain in epigastric region on palpation Abdominal pain What to Do Next Instructions from Your Care Team No qualifying data available. Post Acute Orders No qualifying data available. You Need to Schedule the Following Appointments Follow Up with MILKA SCHNEIDER When Within 2-4 days Where: [facility] [place] [address]- [phone] Allergies Imitrex (tunnel vision) azithromycin Medications Please ask your primary doctor or pharmacist before taking any other medication not listed, including over the counter drugs, herbal medications, vitamins and or supplements as they may interact withyour home medications. What How Much When Why [...] [place] ti monster) Heartburn Relief, Leader Acid Zoology Professor, Pepcid, Pepcid AC, Pepcid AC Maximum Strength, [...] may report side effects to FDA at [phone]-XED-2570. What other drugs will affect famotidine? Famotidine oral can make it harder for your body to absorb other medicines you take by mouth. Tell your doctor if you are taking: cefditoren; dasatinib; delavirdine; fosamprenavir; or tizanidine (if you are taking famotidine liquid). This list is not complete. Other drugs may affect famotidine, including prescription and cqvx-qgf-oqeffdd medicines, vitamins, and herbal products. Not all [...] to ensure that the information provided by [employer]. ('[employer]') is accurate, up-to-date, and complete, but no guarantee is made to that effect. Drug information contained herein may be time sensitive. BYOM! information has been compiled for use by healthcare practitioners and consumers in the [place] and therefore BYOM! does not warrant that uses outside of the [place] are appropriate, unless specifically indicated otherwise. [employer] drug information does not endorse drugs, diagnose patients or recommend therapy. [employer] drug information isan informational resource designed to assist licensed healthcare practitioners in caring for their p atients and/or to serve consumers viewing this service as a supplement to, and not a substitute for, the expertise, skill, knowledge and judgment of healthcare practitioners. The absence of a warningfor a given drug or drug combination in no way should be construed to indicate that the drug or drug combination is safe, effective or appropriate for any given patient. [facility] does not assume any responsibility for any aspect of healthcare administered with the aid of information [facility] provides. The information contained herein is not intended to cover all possible uses, directions, precautions, warnings, drug interactions, allergic reactions, or adverse effects. If you have questions about the drugs you are taking, check with your doctor, nurse or pharmacist. Copyright 9472-3749 [facility] [employer]. Version: 18.. Revision Date: 11/25/2020. acetaminophen and codeine (a SEESfoía escobar and ETIENNE hook) Tylenol with Codeine [...] someone with a history of drug abuse oraddiction. MISUSE CAN CAUSE ADDICTION, OVERDOSE, OR . [...] where to locate a drug take-back disposal program.If there is no take-back program, flush the unused medicine down the toilet. What happens if I miss a dose? Since this medicine is used for pain, you are not likely to miss a dose. Skip any missed dose if itis almost time for your next dose. Do not use two doses at one time. What happens if I overdose? Seek emergency medical attention or call the Poison Help line at . An opioid overdosecan be fatal, especially in a child or [...] health department. Make sure any person caring foryou knows where you keep naloxone and how to use it. What should I avoid while taking acetaminophen and codeine? Avoid driving or operating machinery until you know how this medicine will affect you. Dizziness ordrowsiness can cause falls, accidents, or severe injuries. [...] if you have slow breathing with long pauses,blue colored lips, or if you are hard to wake up. In rare cases, acetaminophen may cause a severe skin reaction that can be fatal. This could occur even if you have taken acetaminophen in the past and had no reaction. Stop taking this medicine and call your doctor right away if you have skin redness or a rash that spreads and causes blistering andpeeling. Call your doctor at once if you [...] may report side effects to FDA at 5-131-JMH-0896. What other drugs will affect acetaminophen and [...] drugs may affect acetaminophen and codeine, including prescriptionand djwb-ran-lgtqxss medicines, vitamins, and herbal products. Not all [...] to ensure that the information provided by [employer]. ('[employer]') is accurate, up-to-date, and complete, but no guarantee is made to that effect. Drug information contained herein may be time sensitive. BY[employer]! information has been compiled for use by healthcare practitioners and consumers in the [place] and therefore [employer] does not warrant that uses outside of the [place] are appropriate, unless specifically indicated otherwise. BY[employer]!'s drug information does not endorse drugs, diagnose patients or recommend therapy. [employer] drug information isan informational resource designed to assist licensed healthcare practitioners in caring for their p atients and/or to serve consumers viewing this service as a supplement to, and not a substitute for, the expertise, skill, knowledge and judgment of healthcare practitioners. The absence of a warningfor a given drug or drug combination in no way should be construed to indicate that the drug or drug combination is safe, effective or appropriate for any given patient. [facility] does not assume any responsibility for any aspect of healthcare administered with the aid of information [facility] provides. The information contained herein is not intended to cover all possible uses, directions, precautions, warnings, drug interactions, allergic reactions, or adverse effects. If you have questions about the drugs you are taking, check with your doctor, nurse or pharmacist. Copyright 7016-2253 [facility]. Version: 18.. Revision Date: 07/23/2020. Education Materials [...] don t like the liquid, you can trya chewable one. You may find one works [...] and esomeprazole. Many of these are available zkvy-fnu-ahxarua or available as generics. Take an antacid [...] eat them. Certain foods can worsen symptoms ofgastritis. Limit or avoid fatty, fried, and spicy [...] directed by your healthcare provider Abdominal swelling 2681-6474 [employer]. [address] [place] [address], [place] [address]. All rights reserved. This information is not intended as a substitute for professional medical care. Always follow yourhealthcare professional's instructions. Additional Information VACCINATE! IT SAVES LIVES! Members of the community who have not yet received the COVID-19 vaccine and would like to receive it can visit one of [facility] vaccine clinics. There are many vaccine clinic locations within the [facility]. For locations and available times, please visit [email or web address] It is important to note that some COVID mobile vaccine clinics are held outdoors and may be canceled in rainy or stormy conditions. To learn more about pediatric vaccinations (ages 5-11), we invite you to visit the [facility] webpage. https://www.[email or web address].org/pages/5217-Pihvp-Yfqdkjzudgt-Timraikicr-Jpqut-Jzl stions.htmlTo learn more about the COVID-19 vaccine, we invite you to visit the CDC website for a list of frequently asked questions. https://www.cdc.gov/coronavirus/2019-ncov/vaccines/faq.html [employer] Patient Portal Access Instructions: Stay connected with your healthcare team and access your personal medical information anytime with the [employer] Patient Portal. If you would like a full copy of your medical records please contact the [facility] Medical Records Department Sunday through Sunday between 8a.m. and 4:30p.m. Please follow the directions below to access the portal: 1.Access the email account you provided upon registration to the hospital.2.Look for an invitation email from [facility].3.Open the email and access the invitation link: Accept Invitation to [employer]4.Fill in the required lugo to create your account. Sign into [email or web address] with your username and password that you [...] you will allow to register on the [employer] Patient Portal for access to your information. You can also access the [facility] [facility] Patient Portal on the [employer] lisa. Simply click on Health Records under [employer] and then click on the [employer] logo. HOW TO SAFELY DISPOSE OF PRESCRIPTION MEDICATIONS Please use one of the following methods to safely dispose of your unused medications. 1.Use a drug disposal kit: the drug disposal pouch allows you to safely discard your old and unuseddrugs. Ask your nurse to give you one when you are discharged.2.Visit a local take-back location: Many local pharmacies and police departments have programs that collect old and unwanted prescriptiondrugs. Call your local pharmacy or go to [email or web address] to find one close to you.3.Make use of household items: Use cat litter or old coffee grounds to dispose medications if other options arenot available. Mix your drugs with these household products, seal them in an airtight container andthrow it into the garbage. Call [facility]: [phone] to be sure your drugs can be [...] drowsiness, such as benzodiazepines, also known as benzos,including diazepam and alprazolam, muscle relaxants or sleep aids. Never sell or share prescriptionopioids. This is illegal. Store opioids in a [...] aware that I should contact my doctor. Patient/Produce Assistant Signature: Date/Time: Relationship to Patient: Witness Name/Signature: Date/Time: [facility]05-15-2023 History of Present illness Narrative * Anthony Williamson MD - 10/30/2022 11:34 AM EDT Patient presents with: Cough: Chest congestion, PAINTING, chills x 5 days HPI: Feeling sick for about 1 week. Prescribed augmentin here 10/27/22 for sinusitis associated with URI symptoms for 1 week. Later 10/27/22 was evaluated at [facility] ER for dizziness. She is feeling a [...] by mouth twice a day if needed forpain SCORE OF 7-10 FOR 7 DAYS busPIRone (BUSPAR) 5 mg tablet take 1 tablet by mouth twice a day for anxiety magnesium citrate solution Take by mouth. levothyroxine (SYNTHROID) 50 mcg tablet Take 50 mcg by mouth daily before breakfast. escitalopram oxalate (LEXAPRO) 10 mg tablet fluticasone (FLONASE) 50 mcg/actuation nasal spray 1 Preston once daily. LINZESS 290 mcg capsule Take [...] Wt 72.1 kg (159 lb) LMP 06/18/2019 HmN655% BMI 24.18 kg/m PHYSICAL EXAM: GEN: mildly [...] than augmentin. She declines COVID testing. Anthony Williamson MD [facility] Coronado [facility] October 27, 2022 4:38pm Note Date/Time October 27, 2022 3:11p [facility] Medical Records Department [address] [place] [address] Emergency Department Summary 10/27/22 MR#: [id number] Acct: [id number] Name: HELEN ROLAND Rep #:[id number] : 1970 52 From: Earnest Palmer PCP: Dr. Milka Schneider MD Status:REG ER Location: ED HPI History of Present Illness Chief Complaint: Dizziness PFSH PFSH Medical History Allergies Anginal equivalent Anxiety Anxiety Back problem Breast pain, left Carpal tunnel syndrome Chronic neck pain Chronic thoracic back pain Dietary restriction Difficulty swallowing Fat necrosis of breast Former smoker Generalized headaches GERD (gastroesophageal reflux disease) History of echocardiogram History of staph infection History of steroid therapy History of stress test History of ulceration Hormone deficiency Hypertension Hypothyroidism Intertrigo Macromastia Marijuana use Mass of left breast Mass of right breast Methicillin resistant Staphylococcus epidermidis infection Migraine headache Other acute postprocedural pain Shoulder pain Thyroid disease Vision problem Wears glasses Wears partial dentures Home Medications losartan 25 mg tablet (Cozaar) 25 mg PO DAILY 01/27/21 [History Last Taken 10/06/22 07:30] hydroxyzine pamoate 25 mg capsule (Vistaril) 25 mg PO BID PRN Anxiety 02/27/21 [History Last Taken 08/03/21] zolpidem 5 mg tablet (Ambien) 5 mg PO QHS PRN Sleep 07/21/21 [History Last Taken Unknown] escitalopram oxalate 10 mg tablet (Lexapro) 20 mg PO PRN PRN Pain 02/12/22 [History Last Taken Unknown] magnesium citrate 300 ml PO X1 PRN constipation #2 BOTTLES 03/02/22 [Rx Last Taken Unknown] levothyroxine 125 mcg tablet 75 mcg PO DAILY thyroid 06/23/22 [History Last Taken 10/06/22 07:30] omeprazole magnesium 10 mg oral suspension,delayed release (Prilosec) 10 mg PO BID 06/23/22 [History Last Taken 10/06/22 07:30] ondansetron 4 mg disintegrating tablet 4 mg PO Q6H PRN nausea and vomiting #20 tabs 10/06/22 [Rx Last Taken Unknown] oxycodone-acetaminophen 5 mg-325 mg tablet (Percocet) 1 tab PO BID PRN pain (scale score 7-10) 7 days #14 tabs 10/24/22 [Rx Last Taken Unknown] Allergy/AdvReac Type Severity Reaction Status Date / Time azithromycin Allergy Diarrhea Verified 10/17/22 14:40 [From Zithromax Z-Keo] sumatriptan [From Imitrex] Allergy TUNNEL Verified 10/17/22 14:40 VISION sumatriptan succinate Allergy TUNNEL Verified 10/17/22 14:40 [From Imitrex] VISION tramadol AdvReac nausea and Verified 10/17/22 14:40 vomiting Family History Other Anxiety Depression Epilepsy Hormone deficiency Hypertension Seizures Surgical History History of bilateral breast reduction surgery History of breast lump/mass excision History of carpal tunnel release History of esophagogastroduodenoscopy (EGD) S/P correction of deviated nasal septum S/P hysterectomy S/P laparoscopic cholecystectomy S/P left knee surgery S/P tubal ligation S/P wisdom tooth extraction Social History Smoking Status: Former smoker alcohol intake: never substance use type: does not use additional social history: Does Not Take Aspirin Does Not Take Ibuprofen EXAM Physical Exam Const Vital Signs: 10/27/22 15:01 10/27/22 15:00 10/27/22 15:28 Temperature 97.3 F L Temperature Source Temporal Pulse Rate 101 H 100 Respiratory Rate 16 19 H Respiratory Effort Normal Non-Labored Respiratory Pattern Normal Blood Pressure 133/92 H 135/95 H Blood Pressure Mean 105 108 Pulse Ox 100 98 Oxygen Delivery Method Room Air Room Air MDM MDM MDM Narrative Medical decision making narrative: HISTORY OF PRESENT ILLNESS: 52-year-old female here with shortness of breath, congestion and dizziness for 2days. The patient further states she had 2 to 3 days of dizziness associated with sinus congestion runny nose. States she went to urgent care prior to arrival she was prescribed antibiotics. Although she complained of shortness ofbreath in triage she DENIES shortness of breath to me. She denies any chest pain. She denies dizziness being is associated with exertion. She notes dizziness is worse when she stands. She denies any volume loss such as vomitingor diarrhea. Denies any bleeding diathesis such as hemoptysis, hematochezia, melena, vaginal bleeding or hematuria. Patient denies any focal numbness, weakness, loss of sensation. Denies any recent head trauma The patient denies recent surgery in the last 4 weeks or immobilization in the last 3 days, denies previous diagnosis of DVT or PE, hemoptysis, unilateral leg swelling or malignancy with treatment the last 6 months. No estrogen use noted. REVIEW OF SYSTEMS: Pertinent positives: Shortness of breath, congestion, dizziness Pertinent negatives: Focal numbness, weakness, double vision PHYSICAL EXAM: Nursing triage notes reviewed, Vital signs reviewed Constitutional: please see mdm HENT: MMM Eyes: Pupils equal round and reactive to light, Extraocular muscles intact Neck: No stridor, no JVD, full neck ROM Lungs: Clear to auscultation, No wheezing or rales. No increased work of breathing, no conversational dyspnea, no accessory muscle use, no nasal flaring. No respiratory distress noted Heart: Regular rate and rhythm, No murmurs, No rubs and No gallops, 2+ distal pulses (radial, femoral, posterior tibial) in all extremities Abdomen: Soft, there is no tenderness, rigidity, rebound or guarding, no obviousperitoneal signs, no palpable pulsatile abdominal masses, no auscultated abdominal bruit : No CVAT Extremities: No edema Neuro: Alert and oriented x3, neuro exam at baseline, cranial nerves II through XII are intact. No pain with extraocular muscle movement. There is negative test of skew. Normal speech. 5 of 5 strength in upper and lower extremities inflexion extension. Intact sensation to light touch in upper and lower extremitydermatomes. No truncal or extremity ataxia. No dysdiadochokinesia. Normal gait. 2+ reflexes. No meningeal signs. Negative Babinski. NIH of 0 Skin: No rash or lesions noted MEDICAL DECISION MAKING: Chief Complaint: Shortness of breath External records reviewed: The patient underwent cardiac stress test in 2019 that was normal. Last ED visit in August 2022. During this visit the patient complained of anxiety, shortness of breath and dizziness similar to her presentation today. Discharge after dose of Vistaril. MDM Narrative: I considered the following differential diagnosis: Dehydration, electrolyte abnormalities thyroid dysfunction, arrhythmia, myocardial ischemia, anemia I considered posterior circulation CVA, intracranial bleed or mass however the patient had no focal neurologic deficits, NIHSS 0, no nystagmus, no ataxia eitherextremity, truncal or gait to suggest she is having posterior circulation stroke, bleed or mass. There was no report of head trauma to suggest ICH. I obtained a broad lab and imaging work-up to further elucidate the etiology of the patient's complaints, specifically to rule out the above mentioned differential diagnoses. Labs and images where remarkable for no evidence of significant anemia, electrolyte abnormalities, thyroid dysfunction, hepatobiliary pathology, myocardial ischemia or arrhythmia. No evidence of focal infection or anatomic abnormality of the chest. No clear life or limb threatening etiology could be identified to explain the patient's symptoms. I suspect the cause of her dizziness is secondary to her viral versus bacterial URI symptoms (for which she is prescribed antibiotics). Encouraged patient to take antibiotics as prescribed by urgent care. I gave the patient strict returnprecautions and follow-up instructions. Factors affecting care: Hypertension, hypothyroidism, GERD, anxiety Social determinants of health: Former smoker History obtained from others: none Shared decision making: I will have a discussion with the patient and or visitors regarding risk/benefits of further testing or admission. They will be made aware of of the risk/benefits inherent in this decision they will be given the opportunity to voice understanding. Consults: none Lab Data Attestation: I reviewed the patient's lab results. Lab results narrative: EKG with normal sinus rhythm, normal axis, normal intervals, no STEMI, no ischemic changes CBC without leukocytosis, severe anemia, no thrombocytopenia. BMP without evidence of significant electrolyte abnormalities, no anion gap, no acute kidney injury. LFTs show no evidence of hepatobiliary pathology. TSH within normal limits Troponin is negative, no evidence of myocardial ischemia Labs: Laboratory Results - last 24 hr 10/27/22 10/27/22 15:41 15:41 WBC 7.2 RBC 4.23 Hgb 12.9 Hct 39.8 MCV 94.1 MCH 30.5 MCHC 32.4 RDW Std Deviation 44.6 H RDW Coeff of Dylon 13.2 Plt Count 247 MPV 9.7 Sodium 141 Potassium 3.6 Chloride 108 H Carbon Dioxide 25.0 Anion Gap 8 BUN 5 L Creatinine 0.92 Estim Creat Clear Calc 73.80 Est GFR (MDRD) Af Amer 83 Est GFR (MDRD) Non-Af 69 BUN/Creatinine Ratio 5.4 L Glucose 97 Calcium 9.8 Total Bilirubin 0.40 AST 45 H ALT 59 H Alkaline Phosphatase 104 Troponin I High Sens 16 Total Protein 8.1 Albumin 3.9 Globulin 4.2 Albumin/Globulin Ratio 0.9 TSH 0.73 Radiography Chest X-Ray - ED: Read by ED Physician Diagnostic Testing: Clinical Impression(s) from Imaging Studies Chest X-Ray 10/27/22 15:55 IMPRESSION: No radiographic evidence of acute cardiopulmonary disease. Electronically Signed: Jacob Alberts DO at 16:06 EDT Reading Location ID and State: [facility] / [place] Tel [phone], Service support , I have personally reviewed the patient's chest x-ray. Chest x-ray is unremarkable for pulmonary edema, pneumothorax, pneumonia or focal cardiopulmonary abnormality. Discharge Plan Triage Chief Complaint: Dizziness ED Provider: Earnest Coronado Dx/Rx/DC Orders Clinical Impression: Dizziness Instructions: ED Dizziness, Uncertain Cause Prescriptions: No Action losartan [Cozaar] 25 mg tablet 25 mg PO DAILY Prilosec 10 mg susp,delayed release for recon 10 mg PO BID levothyroxine 125 mcg tablet 75 mcg PO DAILY hydroxyzine pamoate [Vistaril] 25 mg Capsule 25 mg PO BID PRN (Reason: Anxiety) zolpidem [Ambien] 5 mg Tablet 5 mg PO QHS PRN (Reason: Sleep) escitalopram oxalate [Lexapro] 10 mg Tablet 20 mg PO PRN PRN (Reason: Pain) magnesium citrate Solution 300 ml PO X1 PRN (Reason: constipation) Qty: 2 0RF ondansetron 4 mg tablet,disintegrating 4 mg PO Q6H PRN (Reason: nausea and vomiting) Qty: 20 0RF oxycodone-acetaminophen [Percocet] 5-325 mg tablet 1 tab PO BID PRN (Reason: pain (scale score 7-10)) 7 Days Qty: 14 0RF Rx Instructions: 14 tabs (fourteen) Stand Alone Forms: ED Work / School Excuse Primary Care Provider: Milka Schneider Referrals: Milka Schneider MD [Primary Care Provider] - Activity Restrictions/Additional Instructions: Thank you for trusting us with your care today! Please take Tylenol (2 pills, 650 mg), ibuprofen (2 pills, 400 mg) every 6 hoursas needed for pain and fever control. Please return to the emergency department if your symptoms change or worsen. Specifically if you develop gait instability, focal numbness, weakness, loss of sensation, facial drooping, slurred speech or difficulty talking. Please follow with your primary care physician for further outpatient evaluationand management. Disposition Disposition: Home, Self Care What to do if you have Problems For any increased pain, shortness of breath, bleeding, nausea or vomiting, chestpain, or any unexpected problems, contact your Primary Care Provider. Call [facility] ([phone]) or report to the closest Emergency Room. Call 911 if necessary. 10/27/22 3078 <Electronically signed by Earnest Coronado DO> Cosigner Signature (if applicable): CC: Dr. Milka Schneider MD ~ Signed [facility] Work Phone: 1(413) 523-393104-21-[address] Eckert [facility] October 06, 2022 4:41pm Note Date/Time October 06, 2022 4:2 9pm [facility] Medical Records Department [address] [place] [address] Instructions for Home/Discharge Instructions 10/06/22 1627 MR#: [id number] Acct: [id number] Name: HELEN ROLAND Rep #:[id number] : 1970 52 From: Alexsander Garibay PCP: Dr. Milka Schneider MD Status:REG [facility] Discharge Instructions Diet Discharge Diet: No restrictions and - (encourage nutritional supplementation with protein to help the healing process.) Activity Discharge Activity: May Not Drive, May Not Shower (until the drains are removed.) and - (keep head elevated. No heavy lifting.) May shower in (days): 5 (after the drains are removed.) May resume sexual activity in: 10-14 days Weight Bearing Status: Weight bearing as tolerated Lifting Restrictions: 20 lbs. Keep extremity elevated above heart level: - (elevate head.) Dressing / Incision Call your doctor if your incision/area has: Continuous Slow Oozing, Sudden Increased Bleeding, Increased Pain/ Swelling, Increased Redness, Foul Smelling Discharge and Swelling at the incision site Call your doctor if you observe: Fever of 101 or Higher, Coldness, Increased Pain, Shortness of breath, Chest pain, Calf discomfort and Uncontrolled pain Change Dressing in: do not change dressing (will change the operative dressing in the office.) Cleanse incision/area with: Keep Dressing Clean & Dry (may get the incisions wetin the shower after the drains are removed.) Drain: Suction (True drain x2 to bulb suction. Empty and record output daily.) Follow Up Care Please Follow Up With: Alexsander Eckert MD When: Sunday10/10/22. call [phone] for appt. Test Results: Test results from this visit will be discussed in further detail at your follow- up appointment, if applicable. Discharge Plan Admission Primary Reason for Your Visit: excision bilateral breast masses after breast reduction Attending Provider: Alexsander Eckert Primary Care Provider: Milka Schneider Discharge Orders/Prescriptions Prescriptions: New doxycycline hyclate 100 mg tablet 100 mg PO BID Qty: 10 0RF oxycodone-acetaminophen [Percocet] 5-325 mg tablet 1 tab PO Q6H PRN (Reason: pain (scale score 7-10)) 7 Days Qty: 28 0RF Rx Instructions: 28 tabs (twenty-eight) ondansetron 4 mg tablet,disintegrating 4 mg PO Q6H PRN (Reason: nausea and vomiting) Qty: 20 0RF Continued losartan [Cozaar] 25 mg tablet 25 mg PO DAILY Prilosec 10 mg susp,delayed release for recon 10 mg PO BID levothyroxine 125 mcg tablet 75 mcg PO DAILY hydroxyzine pamoate [Vistaril] 25 mg Capsule 25 mg PO BID PRN (Reason: Anxiety) zolpidem [Ambien] 5 mg Tablet 5 mg PO QHS PRN (Reason: Sleep) escitalopram oxalate [Lexapro] 10 mg Tablet 20 mg PO PRN PRN (Reason: Pain) magnesium citrate Solution 300 ml PO X1 PRN (Reason: constipation) Qty: 2 0RF gabapentin 250 mg/5 mL (5 mL) solution 100 mg PO BID 30 Days Qty: 120 0RF Other Ambulatory Orders: 12 Lead EKG (Routine) Timeframe: 20221003 Location: None Selected Ordered By: Dr. Franklin Michael Referrals / Follow Up: Milka Schneider MD [Primary Care Provider] - Alexsander Eckert MD [Med Staff - Active Staff] - 10/10/22 Disposition Disposition (needs filled in before D/C Order can be placed): Home, Self Care 10/06/22 1641<Electronically signed by Alexsander Eckert MD>Alexsander Eckert MD CC: Dr. Milka Schneider MD ~ Signed [facility] Work Phone: 1(837) 130-137904-21-2023 History and physical note Author Dr. Eckert [facility] October 06, 2022 12:23pm Note Date/Time October 06, 2022 11: 55am [facility] Medical Records Department [address] [place] [id number] History & Physical Exam 10/06/22 1153 MR#: [id number] Acct: [id number] Name: HELEN ROLAND Rep #:[id number] : 1970 52 From: Alexsander Garibay PCP: Dr. Milka Schneider MD Status:[facility] Location: [place] [address] History and Physical Date of Admission: 10/06/22 HISTORY OF PRESENT ILLNESS 52 year old female presents with persistent bilateral breast masses after her bilateral breast reduction mammaplasty surgery on 08/03/21.?? She states that shehas been feeling well and her neck and upper back pain have improved since her surgery.? She has no further wound healing issues.? There is a painful nodular mass on her right breast lateral to the nipple and a painful mass right breast lateral to the nipple and inferiorly near the inframammary fold.? There were nodular masses on her left breast at the superior aspect of her nipple and on the left medial breast near the inframammary fold.? They are persistently painful.?? She had a mammogram done on 03/31/22.? It showed scattered areas of fibroglandular density.? There are no dominant masses or suspicious calcifications.? Since prior study, the patient underwent bilateral reduction surgery.? Postoperative changesare seen along the inferior aspect of both breasts.? No other significant abnormalities are identified.? Correlation with ultrasound is recommended. She had an ultrasound done on 03/31/22.? It showed on the right breast there jermain 1 cm x 1.2 cm x 0.3 cm mixed echogenicity breast lump at the 7 o''clock position breast at 4 cm from nipple.? This is superficial and adjacent to the scar.? This most likely represents postoperative changes.? On the left breast there is a 1.1 cm x 1 cm x 0.8 cm cyst at the 7 o''clock position of the breast or 6 cm from the nipple.? There is also evidence of a 2.2 cm x 2.4 cm x 1.2 cm noduleof mixed echogenicity at the 12 o''clock position of the breast at 1 cm from nipple.? This is adjacent to the scar.? This may represent postoperative change. A four-month follow-up sonogram is recommended.? She had repeat Ultrasound on 08/04/22. It showed the right breast there is a 1 x 0.4 cm nodular density at the 7 oclock position of the breast at 4 cm from the nipple. This is superficial and corresponds to the scar. This is unchanged. There is also evidence of a 0.3 x 0.3 x 0.4 cm cyst at the 8 oclock position of the breast at 4 cm from the nipple. The left breast there is a 0.9 x 0.9 x 0.8 cm cyst at the7 oclock position of the breast at 6 cm from the nipple. This is essentially unchanged. There is also evidence of a 2.3 x 0.8 x 1.9 cm nodule of mixed echogenicity at the 12 oclock position of the breast 1 cm from the nipple. Thismost likely consistent with surgical scar. There has been no change. PAST MEDICAL HISTORY Anginal equivalent Anxiety Back problem Breast pain, left Carpal tunnel syndrome Chronic neck pain Chronic thoracic back pain Dietary restriction Difficulty swallowing Fat necrosis of breast Former smoker Generalized headaches GERD (gastroesophageal reflux disease) History of echocardiogram History of staph infection History of steroid therapy History of stress test History of ulceration Hormone deficiency Hypertension Hypothyroidism Intertrigo Macromastia Marijuana use Mass of left breast Mass of right breast Migraine headache Shoulder pain Vision problem Wears glasses Wears partial dentures PAST SURGICAL HISTORY History of bilateral breast reduction surgery History of carpal tunnel release History of esophagogastroduodenoscopy (EGD) S/P correction of deviated nasal septum S/P hysterectomy S/P laparoscopic cholecystectomy S/P left knee surgery S/P tubal ligation S/P wisdom tooth extraction ALLERGIES azithromycin [From Zithromax Z-Keo] sumatriptan succinate [From Imitrex] tramadol MEDICATIONS losartan (Cozaar) hydroxyzine pamoate zolpidem (Ambien) escitalopram oxalate (Lexapro) magnesium citrate levothyroxine omeprazole magnesium FAMILY HISTORY Other - Anxiety, Depression, Epilepsy, Hormone deficiency, Hypertension, Seizures SOCIAL HISTORY Smoking Status:? Former smoker alcohol intake:? never substance use type:? does not use REVIEW OF SYSTEMS General - Denies fever. Has a history of fatigue.? Eyes - Denies cataracts and glaucoma. ENT - Denies nasal congestion and sore throat. Has seasonal allergies. Endocrine - Denies excessive thirst and urination. History of hypothyroidism.? Had bilateral painful breast masses with improvement in the right breast mass. Skin - Denies suspicious lesions and skin cancer.? ? Musculoskeletal - Has joint pain and joint stiffness. ? Denies weakness of muscles and joints, and arthritis.? Has neck pain and thoracic back pain that has improved since the breast reduction surgery.? She receives injection of Toradol and steroids into her upper back and neck to relieve this.? She has not had any steroid injections in over 6 months. Has a history of carpal tunnel syndrome on the right. Neuro - History of headaches. Cardiovascular - Denies chest pain, fatigue, and shortness of breath with exertion. Has HTN. Psych - Has a history of anxiety and depression. Respiratory - Denies chronic cough and shortness of breath.? Patient is a formersmoker. Gastrointestinal - Denies nausea, vomiting, diarrhea, and constipation. Hematologic - Denies abnormal bruising and bleeding. Genitourinary - Denies hematuria and urinary frequency. ? PHYSICAL EXAMINATION General - Alert and oriented.?? Her bra size is a B cup. HEENT - PERRL. EOMI. Throat is clear. Neck - Supple.? Nontender.? No cervical adenopathy.? Lungs- Clear to auscultation. Heart - Regular rate and rhythm. Breasts - Patient's breasts are soft and symmetrical.? Good contour noted.? Nipples are viable. Her incisions on bilateral breasts after breast reduction surgery remain healed.? She had a palpable mass on her right lateral breast which is hard to palpate today.? It is nontender.? She has a palpable mass on her left breast on the superior aspect of her nipple.? Measures 2 cm.? Tender topalpation.? She also has a palpable mass on her left breast medial to the nippleand inferiorly near the inframammary fold.? Measures 1 cm.? Tender to palpation.? No axillary adenopathy noted. Abdomen - Soft and non distended. Extremities - FROM.? No axillary adenopathy.? Radial pulses are palpable. Neuro - CN II-XII grossly intact. Psych - Normal mood and affect. ASSESSMENT 1.? 1 cm painful right breast mass lateral to the nipple and inferiorly near theinframammary fold. 2. 0.4 cm painful right breast mass lateral to the nipple. 3.? 2 cm painful left breast mass at superior aspect nipple. 4.? 1 cm painful left breast mass medial to the nipple and inferiorly near the inframammary fold. 5.? Fat necrosis bilateral breasts. 6.? Former smoker. 7.? History of bilateral breast reduction mammaplasty. 8.? History of MRSE right breast. PLAN Ultrasound reviewed from 08/04/22 and 03/31/22. Mammogram reviewed from 03/31/22. Ultrasound from 08/04/22 showed the right breast there is a 1 x 0.4 cm nodular density at the 7 oclock position of the breast at 4 cm from the nipple. This issuperficial and corresponds to the scar. This is unchanged. There is also evidence of a 0.3 x 0.3 x 0.4 cm cyst at the 8 oclock position of the breast at 4 cm from the nipple. The left breast there is a 0.9 x 0.9 x 0.8 cm cyst at the7 oclock position of the breast at 6 cm from the nipple. This is essentially unchanged. There is also evidence of a 2.3 x 0.8 x 1.9 cm nodule of mixed echogenicity at the 12 oclock position of the breast 1 cm from the nipple. Thismost likely consistent with surgical scar. There has been no change. The bilateral breast masses are most likely fat necrosis from the breast reduction surgery.? But they are persistent. Recommend excision of these painful masses bilateral breasts and send them to Pathology for analysis to ruleout carcinoma. By removing them, they won't interfere with breast cancer surveillance in the future. Will send tissue to Microbiology for culture.? A positive culture will necessitate antibiotic therapy. Surgery will be done on an outpatient basis under general anesthesia. Drains may be necessary depending on the degree of dissection necessary to remove these painful masses. Patient was informed of the risks and complications of the procedure including alternatives to surgery.? These were discussed with the patient personally.? Patient voices understanding and wishes to proceed. Some of the risks and complications were included in a form from the [employer] [employer]. Potential risks and complications included but not inclusive of bleeding, infection, seroma, hematoma, bruising, swelling, prolonged need for drains, lossof sensation to skin, partial or complete loss of skin flap and/or nipple, woundbreakdown, need for wound care, poor scarring, poor aesthetic outcome, intra operative cardiac or neurologic events, DVT, PE, and reaction to anesthesia. Assessment & Plan Assessment/Plan (1) Mass of left breast: (2) Breast pain, left: (3) Mass of right breast: (4) Breast pain, right: (5) Fat necrosis of breast: (6) History of bilateral breast reduction surgery: (7) Methicillin resistant Staphylococcus epidermidis infection: (8) Former smoker: 10/06/22 1223 <Electronically signed by Alexsander Eckert MD> Cosigner Signature (if applicable): CC: Dr. Milka Schneider MD; Dr. Alexsander Eckert MD~ Signed [facility] Work Phone: [phone]) 834-663004-07-2023 Hospital Discharge instructions Patient Education 09/22/2022 18:10:05 Dental Pain [...] or cold beverages. It can also be worsewhen you bite on hard foods. Pain may spread from the tooth to your ear or the area of the jaw on the same side. Home care Follow these tips when caring for yourself at home: Don't have hot and cold foods and drinks. Your tooth may be sensitive to changes in temperature. Use toothpaste made for sensitive teeth. Geyser gently up and down instead of sideways. Brushing sideways can wear away root surfaces if they are exposed. If your tooth is chipped or cracked, or if there is a large open cavity, put oil of cloves directlyon the tooth to relieve pain. You can buy oil of cloves at drugstores. Some pharmacies carry an fskg-hhd-jqrejoc toothache kit. This contains a paste that you can put on the exposed tooth to make it less sensitive. Put a cold pack on your jaw over the sore area to help reduce pain. You may use jxcb-svh-hoovfts medicine to ease pain, unless your doctor prescribed another medicine.If you have chronic liver or kidney disease, [...] healthcare provider Pus drains from the tooth [phone] [employer]. [address] [place] [address], [place] [address]. All rights reserved. This information is not intended as a substitute for professional medical care. Always follow yourhealthcare professional's instructions. Follow Up Care 09/22/2022 17:48:39 With:your dentist Address: When:1-2 days With:Go to emergency room if symptoms worsen Address:Unknown When:2-4 days With:MILKA SCHNEIDER Address: [address] [place] [address] [phone] When:2-4 days [facility] 04-07-2023 Emergency department Discharge summary Discharge Instructions Thank you for allowing [facility] to assist you with your healthcare needs. The following is importantdischarge information regarding your hospital visit. Diagnosis from [...] MILKA SCHNEIDER When Within 2-4 days Where: [facility] [place] [address] [phone] Allergies Imitrex (tunnel vision) azithromycin Medications Please ask your primary doctor or pharmacist before taking any other medication not listed, including over the counter drugs, herbal medications, vitamins and or supplements as they may interact withyour home medications. What How Much When Why [...] or cold beverages. It can also be worsewhen you bite on hard foods. Pain may spread from the tooth to your ear or the area of the jaw on the same side. Home care Follow these tips when caring for yourself at home: Don't have hot and cold foods and drinks. Your tooth may be sensitive to changes in temperature. Use toothpaste made for sensitive teeth. Geyser gently up and down instead of sideways. Brushing sideways can wear away root surfaces if they are exposed. If your tooth is chipped or cracked, or if there is a large open cavity, put oil of cloves directlyon the tooth to relieve pain. You can buy oil of cloves at drugstores. Some pharmacies carry an yvax-yfh-wwnamqp toothache kit. This contains a paste that you can put on the exposed tooth to make it less sensitive. Put a cold pack on your jaw over the sore area to help reduce pain. You may use jhuo-ecz-qznomgh medicine to ease pain, unless your doctor prescribed another medicine.If you have chronic liver or kidney disease, [...] healthcare provider Pus drains from the tooth [phone] [employer]. [address] [place] [address]. All rights reserved. This information is not intended as a substitute for professional medical care. Always follow yourhealthcare professional's instructions. Additional Information VACCINATE! IT SAVES LIVES! Members of the community who have not yet received the COVID-19 vaccine and would like to receive it can visit one of [facility] vaccine clinics. There are many vaccine clinic locations within the [facility]. For locations and available times, please visit [email or web address]/. It is important to note that some COVID mobile vaccine clinics are held outdoors and may be canceled in rainy or stormy conditions. To learn more about pediatric vaccinations (ages 5-11), we invite you to visit the [facility] webpage. [email or web address]/[email or web address] [email or web address] learn more about the COVID-19 vaccine, we invite you to visit the CDC website for a list of frequently asked questions. https://www.cdc.gov/coronavirus/2019-ncov/vaccines/faq.html [facility] Patient Portal Access Instructions: Stay connected with your healthcare team and access your personal medical information anytime with the [facility] [employer] Patient Portal. If you would like a full copy of your medical records please contact the [facility] Medical Records Department Sunday through Sunday between 8a.m. and 4:30p.m. Please follow the directions below to access the portal: 1.Access the email account you provided upon registration to the [facility].2.Look for an invitation email from [facility].3.Open the email and access the invitation link: Accept Invitation to [employer]4.Fill in the required lugo to create your account. Sign into [email or web address] with your username and password that you [...] you will allow to register on the [employer] Patient Portal for access to your information. You can also access the [employer] Patient Portal on the [employer]. Simply click on Health Records under 4tiitoo and then click on the [employer]ic logo. HOW TO SAFELY DISPOSE OF PRESCRIPTION MEDICATIONS Please use one of the following methods to safely dispose of your unused medications. 1.Use a drug disposal kit: the drug disposal pouch allows you to safely discard your old and unuseddrugs. Ask your nurse to give you one when you are discharged.2.Visit a local take-back location: Many local pharmacies and police departments have programs that collect old and unwanted prescriptiondrugs. Call your local pharmacy or go to [email or web address] to find one close to you.3.Make use of household items: Use cat litter or old coffee grounds to dispose medications if other options arenot available. Mix your drugs with these household products, seal them in an airtight container andthrow it into the garbage. Call [facility]: [phone] to be sure your drugs can be [...] drowsiness, such as benzodiazepines, also known as benzos,including diazepam and alprazolam, muscle relaxants or sleep aids. Never sell or share prescriptionopioids. This is illegal. Store opioids in a [...] aware that I should contact my doctor. Patient/Produce Assistant Signature: Date/Time: Relationship to Patient: Witness Name/Signature: Date/Time: [facility]02-28-2023 Hospital Discharge instructions Patient Education 08/15/2022 14:49:56 Anxiety Reaction Anxiety Reaction Anxiety is the feeling we all get when we think something bad might happen. It is a normal responseto stress and usually causes only a mild [...] relieved by rest and mild pain reliever 9735-6710 [employer]. [address] [place] [address], [place] [address]. All rights reserved. This information is not intended as a substitute for professional medical care. Always follow yourhealthcare professional's instructions. Follow Up Care 08/15/2022 13:51:44 With:MILKA SCHNEIDER Address: [address] [place] [phone] When:2-4 days [facility] 02-28-2023 Note Discharge Instructions Thank you for allowing [facility] to assist you with your healthcare needs. The following is importantdischarge information regarding your hospital visit. Diagnosis from Today's Visit Anxiety Tremor Anxiety What to Do Next Instructions from Your Care Team No qualifying data available. Post Acute Orders No qualifying data available. You Need to Schedule the Following Appointments Follow Up with MILKA SCHNEIDER When Within 2-4 days Where: [address] [place] [id number] [phone] Allergies Imitrex (tunnel vision) azithromycin Medications Please ask your primary doctor or pharmacist before taking any other medication not listed, including over the counter drugs, herbal medications, vitamins and or supplements as they may interact withyour home medications. What How Much When Why Instructions Last Dose New LORazepam (Ativan 1 mg oral tablet) 1 tab(s) by mouth Every 8 hours as needed for as needed for anxiety Anxiety Tremor Duration: 3 Days Printed Prescription 212 Unchanged estradiol (estradiol 1 mg oral tablet) [...] without asking your doctor. You may have life- threatening withdrawal symptoms if you stop using the [...] What is lorazepam? Lorazepam is a benzodiazepine (uuz-xen-gmi-AZE-eh-peen) that is used to treat anxiety disorders. [...] supplied measuring device (not a kitchen spoon). Mixthe liquid with water, juice, soda, or soft [...] without asking your doctor. You may have life- threatening withdrawal symptoms if you stop using the [...] adults. Use caution to avoid falling or accidentalinjury. Common side effects may include: dizziness, drowsiness; [...] may report side effects to FDA at 4-241-AMJ-7036. What other drugs will affect lorazepam? Taking [...] drugs may affect lorazepam, including prescription and bocm-dbp-khfakcb medicines, vitamins, and herbal products. Not all [...] to ensure that the information provided by [employer]. ('[employer]') is accurate, up-to-date, and complete, but no guarantee is made to that effect. Drug information contained herein may be time sensitive. BYOM! information has been compiled for use by healthcare practitioners and consumers in the [place] and therefore BYOM! does not warrant that uses outside of the [place] are appropriate, unless specifically indicated otherwise. [employer] drug information does not endorse drugs, diagnose patients or recommend therapy. [employer] drug information isan informational resource designed to assist licensed healthcare practitioners in caring for their p atients and/or to serve consumers viewing this service as a supplement to, and not a substitute for, the expertise, skill, knowledge and judgment of healthcare practitioners. The absence of a warningfor a given drug or drug combination in no way should be construed to indicate that the drug or drug combination is safe, effective or appropriate for any given patient. BYOM! does not assume any responsibility for any aspect of healthcare administered with the aid of information BYOM! provides. The information contained herein is not intended to cover all possible uses, directions, precautions, warnings, drug interactions, allergic reactions, or adverse effects. If you have questions about the drugs you are taking, check with your doctor, nurse or pharmacist. Copyright 0907-5225 [employer]. Version: 10. Revision Date: 04/05/2021. Education Materials Anxiety Reaction Anxiety is the feeling we all get when we think something bad might happen. It is a normal responseto stress and usually causes only a mild [...] relieved by rest and mild pain reliever 2434-0236 [employer]. [address] [place] [address], [place] [address]. All rights reserved. This information is not intended as a substitute for professional medical care. Always follow yourhealthcare professional's instructions. Additional Information VACCINATE! IT SAVES LIVES! Members of the community who have not yet received the COVID-19 vaccine and would like to receive it can visit one of [facility] vaccine clinics. There are many vaccine clinic locations within the [facility]. For locations and available times, please visit [email or web address]/. It is important to note that some COVID mobile vaccine clinics are held outdoors and may be canceled in rainy or stormy conditions. To learn more about pediatric vaccinations (ages 5-11), we invite you to visit the [facility] webpage. https://[email or web address]/pages/[email or web address]-Gtnzffwiot-Jmpac-Hgt stions.htmlTo learn more about the COVID-19 vaccine, we invite you to visit the CDC website for a list of frequently asked questions. https://www.cdc.gov/coronavirus/2019-ncov/vaccines/faq.html [facility] Patient Portal Access Instructions: Stay connected with your healthcare team and access your personal medical information anytime with the [employer] Patient Portal. If you would like a full copy of your medical records please contact the [facility] Medical Records Department Sunday through Sunday between 8a.m. and 4:30p.m. Please follow the directions below to access the portal: 1.Access the email account you provided upon registration to the [facility].2.Look for an invitation email from [facility].3.Open the email and access the invitation link: Accept Invitation to [facility]4.Fill in the required lugo to create your account. Sign into [email or web address] with your username and password that you [...] you will allow to register on the [facility] Patient Portal for access to your information. You can also access the [employer] Patient Portal on the [employer] lisa. Simply click on Health Records under 4tiitoo and then click on the [employer] logo. HOW TO SAFELY DISPOSE OF PRESCRIPTION MEDICATIONS Please use one of the following methods to safely dispose of your unused medications. 1.Use a drug disposal kit: the drug disposal pouch allows you to safely discard your old and unuseddrugs. Ask your nurse to give you one when you are discharged.2.Visit a local take-back location: Many local pharmacies and police departments have programs that collect old and unwanted prescriptiondrugs. Call your local pharmacy or go to http://[employer]/9N3Cl1p to find one close to you.3.Make use of household items: Use cat litter or old coffee grounds to dispose medications if other options arenot available. Mix your drugs with these household products, seal them in an airtight container andthrow it into the garbage. Call [facility]: [phone] to be sure your drugs can be [...] drowsiness, such as benzodiazepines, also known as benzos,including diazepam and alprazolam, muscle relaxants or sleep aids. Never sell or share prescriptionopioids. This is illegal. Store opioids in a secure place and out of reach of others (including children, family, friends and visitors). The last page(s) of this document has been signed and retained as a CHART COPY Signatures Patient Education Materials Anxiety Reaction Medication Leaflets lorazepam (oral) My discharge plan and instructions have been reviewed and explained to me and I,JORGE LUIS ROLANDE Wander understand my current condition and have read and understand these discharge instructions. I have received a written copy of the plan/instructions. If I have questions, I am aware that I should contact my doctor. Patient/Produce Assistant Signature: Date/Time: Relationship to Patient: Witness Name/Signature: Date/Time: [facility]01-03-2023 Hospital Discharge instructions Patient Education 06/20/2022 10:13:03 Thyroid Antithyroglobulin [...] energy. These hormones affect your energy levels, mood,weight, and other important aspects of your health. [...] or overactive thyroid (hyperthyroidism). Thyroglobulin antibodies attack thyrog lobulin proteins and can destroy the thyroid gland. You may have this test to confirm the results of a thyroglobulin test. This test measures levels ofthe thyroglobulin protein. If you've been treated for [...] This may mean you have a problem withyour thyroid gland. A positive thyroglobulin antibody test [...] and any illegal drugs you may use. 8059-3559 [employer]. [address] [place] [address]. All rights reserved. This information is not intended as a substitute for professional medical care. Always follow yourhealthcare professional's instructions. Follow Up Care 06/20/2022 08:22:17 With:MILKA SCHNEIDER Address: [address] [place] [address] [phone] When:1-2 days [facility] 01-03-2023 Note Discharge Instructions Thank you for allowing [facility] to assist you with your healthcare needs. The following is importantdischarge information regarding your hospital visit. Diagnosis from Today's Visit Anxiety Involuntary movement What to Do Next Instructions from Your Care Team No qualifying data available. Post Acute Orders No qualifying data available. You Need to Schedule the Following Appointments Follow Up with MILKA SCHNEIDER When Within 1-2 days Where: [address] [place] [place] [address] [phone] Allergies Imitrex (tunnel vision) azithromycin Medications Please ask your primary doctor or pharmacist before taking any other medication not listed, including over the counter drugs, herbal medications, vitamins and or supplements as they may interact withyour home medications. What How Much When Why [...] without asking your doctor. You may have life- threatening withdrawal symptoms if you stop using the [...] What is lorazepam? Lorazepam is a benzodiazepine (gbl-tqc-orh-CORRINAE-eh-keshav) that is used to treat anxiety disorders. [...] supplied measuring device (not a kitchen spoon). Mixthe liquid with water, juice, soda, or soft [...] without asking your doctor. You may have life- threatening withdrawal symptoms if you stop using the [...] adults. Use caution to avoid falling or accidentalinjury. Common side effects may include: dizziness, drowsiness; [...] may report side effects to FDA at 4-462-CNT-4484. What other drugs will affect lorazepam? Taking [...] drugs may affect lorazepam, including prescription and anas-vkj-mvenvdm medicines, vitamins, and herbal products. Not all [...] to ensure that the information provided by [employer]. ('[employer]') is accurate, up-to-date, and complete, but no guarantee is made to that effect. Drug information contained herein may be time sensitive. BYOM! information has been compiled for use by healthcare practitioners and consumers in the [place] and therefore BYOM! does not warrant that uses outside of the [place] are appropriate, unless specifically indicated otherwise. [employer] drug information does not endorse drugs, diagnose patients or recommend therapy. [employer] drug information isan informational resource designed to assist licensed healthcare practitioners in caring for their p atients and/or to serve consumers viewing this service as a supplement to, and not a substitute for, the expertise, skill, knowledge and judgment of healthcare practitioners. The absence of a warningfor a given drug or drug combination in no way should be construed to indicate that the drug or drug combination is safe, effective or appropriate for any given patient. BYOM! does not assume any responsibility for any aspect of healthcare administered with the aid of information BYOM! provides. The information contained herein is not intended to cover all possible uses, directions, precautions, warnings, drug interactions, allergic reactions, or adverse effects. If you have questions about the drugs you are taking, check with your doctor, nurse or pharmacist. Copyright 9524-6073 [employer]. Version: 10.03. Revision Date: 04/05/2021. Education Materials Thyroid Antithyroglobulin [...] energy. These hormones affect your energy levels, mood,weight, and other important aspects of your health. [...] or overactive thyroid (hyperthyroidism). Thyroglobulin antibodies attack thyrog lobulin proteins and can destroy the thyroid gland. You may have this test to confirm the results of a thyroglobulin test. This test measures levels ofthe thyroglobulin protein. If you've been treated for [...] This may mean you have a problem withyour thyroid gland. A positive thyroglobulin antibody test [...] and any illegal drugs you may use. 5254-8969 [employer]. [address] [place] [address], [place] [address]. All rights reserved. This information is not intended as a substitute for professional medical care. Always follow yourhealthcare professional's instructions. Additional Information VACCINATE! IT SAVES LIVES! Members of the community who have not yet received the COVID-19 vaccine and would like to receive it can visit one of [facility] vaccine clinics. There are many vaccine clinic locations within the [facility]. For locations and available times, please visit [email or web address]. It is important to note that some COVID mobile vaccine clinics are held outdoors and may be canceled in rainy orstormy conditions. To learn more about pediatric vaccinations (ages 5-11), we invite you to visit the [facility] webpage. [email or web address]/[email or web address]-Rkqzi-Aci stions.htmlTo learn more about the COVID-19 vaccine, we invite you to visit the [facility] website for a list of frequently asked questions. [email or web address]/assets/[email or web address]-[email or web address]-[email or web address]/rtufh-Culxuag-Jgrdampzmj _Asked-Questions.pdf [facility] Patient Portal Access Instructions: Stay connected with your healthcare team and access your personal medical information anytime with the [facility] Patient Portal. If you would like a full copy of your medical records please contact the [facility] Medical Records Department Sunday through Sunday between 8a.m. and 4:30p.m. Please follow the directions below to access the portal: 1.Access the email account you provided upon registration to the hospital.2.Look for an invitation email from [facility].3.Open the email and access the invitation link: Accept Invitation to [facility]4.Fill in the required lugo to create your [...] you will allow to register on the [facility] Patient Portal for access to your information. You can also access the [facility] Patient Portal on the RES Software. Simply click on Health Records under 4tiitoo and then click on the Monika logo. HOW TO SAFELY DISPOSE OF PRESCRIPTION MEDICATIONS Please use one of the following methods to safely dispose of your unused medications. 1.Use a drug disposal kit: the drug disposal pouch allows you to safely discard your old and unuseddrugs. Ask your nurse to give you one when you are discharged.2.Visit a local take-back location: Many local pharmacies and police departments have programs that collect old and unwanted prescriptiondrugs. Call your local pharmacy or go to http://[employer] Uretim.[employer]/6R9Ho9d to find one close to you.3.Make use of household items: Use cat litter or old coffee grounds to dispose medications if other options arenot available. Mix your drugs with these household products, seal them in an airtight container andthrow it into the garbage. Call [facility]: [phone] to be sure your drugs can be [...] drowsiness, such as benzodiazepines, also known as benzos,including diazepam and alprazolam, muscle relaxants or sleep aids. Never sell or share prescriptionopioids. This is illegal. Store opioids in a [...] aware that I should contact my doctor. Patient/Produce Assistant Signature: Date/Time: Relationship to Patient: Witness Name/Signature: Date/Time: [facility]12-10-2022 History of Present illness Narrative * Karen Quiroga APRN.[facility] - 05/27/2022 10:45 AM EST Images from the original note were not included. Subjective HPI Helen Parkertice is a 51 year old female who [...] fluticasone (FLONASE) 50 mcg/actuation nasal spray 1 Preston once daily. LORazepam (ATIVAN) 1 mg tablet [...] illness Karen Quiroga APRN.CNP [facility] Instructions* Patient Instructions* Karen Quiroga APRN.CNP - 05/27/2022 10:45 AM [...] Discussed expected course of illness Karen Quiroga APRN.[facility] PATIENT INFO SKIN INFECTION OVERVIEW Cellulitis is an infection of the skin and soft tissue of the skin. The infection is usually causedby bacteria that normally live on the skin, such as staphylococci (Staph) or streptococci (Strep). The infection develops when there is a [...] types of skin infections include abscesses, furuncles (boils), andcarbuncles. These usually cause a collection of pus [...] as treatment of any underlying condition that ledto the skin infection. Elevate the area -- [...] be hospitalized and treated with antibiotics given intoa vein (IV). It is important to take [...] from an episode of cellulitis without any complications.If you have skin infection risk factors talk to your healthcare provider to determine if there are steps you can take to minimize the risk of infections in the future. [facility]22 Hospital Discharge instructions Patient Education 05/12/2022 08:12:39 CHEST WALL [...] care provider or pharmacist before using an pzov-wtn-bpztaiw cough medicine. You may use acetaminophen or ibuprofen to control pain, unless another medicine was prescribed. If you have chronic liver or kidney disease, talk with your provider before using these medicines. Alsotalk with your provider if you ve had a stomach ulcer or GI bleeding. Follow-up care Follow up with your health care provider, or as advised. When to seek medical advice Call your health care provider right away if any of these occur: A change in the type of pain. This means if it feels different, gets worse, lasts longer, or beginsto spread into your shoulder, arm, neck, jaw, or back. Pain doesn t go away in 1 week Shortness of breath, difficulty breathing, or fast breathing Pain gets worse when you breathe Cough with dark-colored sputum (phlegm) or blood Weakness, dizziness, or fainting Fever of 101 F (38.3 C) or higher, or as directed by your health care provider [phone] [employer]. [address] [place] [address], [place] [address]. All rights reserved. This information is not intended as a substitute for professional medical care. Always follow yourhealthcare professional's instructions. Follow Up Care 05/12/2022 07:09:42 With:MILKA SCHNEIDER Address: [address] [place] [address] [phone] When:2-4 days [facility] 11-25-2022 Note Discharge Instructions Thank you for allowing [facility] to assist you with your healthcare needs. The following is importantdischarge information regarding your hospital visit. Diagnosis from Today's Visit Rib/trunk pain-swelling What to Do Next Instructions from Your Care Team No qualifying data available. Post Acute Orders No qualifying data available. You Need to Schedule the Following Appointments Follow Up with MILKA SCHNEIDER When Within 2-4 days Where: [place] [address] [phone] Allergies Imitrex (tunnel vision) azithromycin Medications Please ask your primary doctor or pharmacist before taking any other medication not listed, including over the counter drugs, herbal medications, vitamins and or supplements as they may interact withyour home medications. What How Much When Why [...] retail pharmacies. Medication Leaflets cyclobenzaprine (marlene aparicio) Nataix, Yanira Pac with Cyclobenzaprine, Fexmid What is the [...] by blocking nerve impulses (or pain sensations) thatare sent to your brain. Cyclobenzaprine is used [...] in the past 14 days. A dangerous druginteraction could occur. MAO inhibitors include isocarboxazid, linezolid, [...] may report side effects to FDA at 7-605-SMQ-8911. What other drugs will affect cyclobenzaprine? Using cyclobenzaprine with other drugs that make you drowsy can worsen this effect. Ask your doctorbefore using opioid medication, a sleeping pill, a [...] drugs may affect cyclobenzaprine, including prescription and gkic-ddh-aztlmyt medicines, vitamins, and herbal products. Not all [...] to ensure that the information provided by [employer]. ('CivicScienceum') is accurate, up-to-date, and complete, but no guarantee is made to that effect. Drug information contained herein may be time sensitive. BYOM! information has been compiled for use by healthcare practitioners and consumers in the [place] and therefore BYOM! does not warrant that uses outside of the [place] are appropriate, unless specifically indicated otherwise. CoffeeTables drug information does not endorse drugs, diagnose patients or recommend therapy. CoffeeTables drug information isan informational resource designed to assist licensed healthcare practitioners in caring for their p atients and/or to serve consumers viewing this service as a supplement to, and not a substitute for, the expertise, skill, knowledge and judgment of healthcare practitioners. The absence of a warningfor a given drug or drug combination in no way should be construed to indicate that the drug or drug combination is safe, effective or appropriate for any given patient. [facility] does not assume any responsibility for any aspect of healthcare administered with the aid of information [facility] provides. The information contained herein is not intended to cover all possible uses, directions, precautions, warnings, drug interactions, allergic reactions, or adverse effects. If you have questions about the drugs you are taking, check with your doctor, nurse or pharmacist. Copyright 5334-9118 [facility] [employer]. Version: 5.01. Revision Date: 03/13/2018. lidocaine topical (LYE aviles lopez TOP i yosvany) AneCream, Bactine, Glydo, LidaMantle, Lidoderm, LidoRx, Medi-Quik Preston, RadiaGuard, RectiCare, Regenecare PAINTING Preston, Solarcaine Cool Aloe What is the most [...] poison oak, poison sumac, and minor cuts, scratches,or james. Lidocaine topical is also used to [...] it has been prescribed by your doctor. Donot apply this medicine in larger amounts than [...] over large skin areas, or if you applyheat, bandages, or plastic wrap to treated skin [...] a child or pet who accidentally sucks onor swallows the patch. Seek emergency medical attention [...] of the medicine is absorbed through your skinand into your blood. Overdose symptoms may include [...] may report side effects to FDA at 6-265-ICP-3372. What other drugs will affect lidocaine topical? Medicine used on the skin is not likely to be affected by other drugs you use. But many drugs can interact with each other. Tell each of your health care providers about all medicines you use, including prescription and blgz-gws-qzndbbt medicines, vitamins, and herbal products. Where can I get more information? Your pharmacist can provide more information about lidocaine topical. Remember, keep this and all other medicines out of the reach of children, never share your medicines with others, and use this medication only for the indication prescribed. Every effort has been made to ensure that the information provided by [employer]. ('Multum') is accurate, up-to-date, and complete, but no guarantee is made to that effect. Drug information contained herein may be time sensitive. BYOM! information has been compiled for use by healthcare practitioners and consumers in the [place] and therefore BYOM! does not warrant that uses outside of the [place] are appropriate, unless specifically indicated otherwise. CoffeeTables drug information does not endorse drugs, diagnose patients or recommend therapy. CoffeeTables drug information isan informational resource designed to assist licensed healthcare practitioners in caring for their p atients and/or to serve consumers viewing this service as a supplement to, and not a substitute for, the expertise, skill, knowledge and judgment of healthcare practitioners. The absence of a warningfor a given drug or drug combination in no way should be construed to indicate that the drug or drug combination is safe, effective or appropriate for any given patient. BYOM! does not assume any responsibility for any aspect of healthcare administered with the aid of information BYOM! provides. The information contained herein is not intended to cover all possible uses, directions, precautions, warnings, drug interactions, allergic reactions, or adverse effects. If you have questions about the drugs you are taking, check with your doctor, nurse or pharmacist. Copyright 1989-1539 [employer]. Version: 9.02. Revision Date: 11/01/2021. nabumetone (na [...] to nabumetone (such as aspirin, ibuprofen, ketoprofen, ornaproxen). Nabumetone could make you sunburn more easily. [...] may report side effects to FDA at 1-388-UKC-8281. What other drugs will affect nabumetone? Ask [...] drugs may affect nabumetone, including prescription and nibo-amh-nvdrkly medicines, vitamins, and herbal products. Not all [...] to ensure that the information provided by [employer]. ('Multum') is accurate, up-to-date, and complete, but no guarantee is made to that effect. Drug information contained herein may be time sensitive. BYOM! information has been compiled for use by healthcare practitioners and consumers in the [place] and therefore BYOM! does not warrant that uses outside of the [place] are appropriate, unless specifically indicated otherwise. CoffeeTables drug information does not endorse drugs, diagnose patients or recommend therapy. CoffeeTables drug information isan informational resource designed to assist licensed healthcare practitioners in caring for their p atients and/or to serve consumers viewing this service as a supplement to, and not a substitute for, the expertise, skill, knowledge and judgment of healthcare practitioners. The absence of a warningfor a given drug or drug combination in no way should be construed to indicate that the drug or drug combination is safe, effective or appropriate for any given patient. BYOM! does not assume any responsibility for any aspect of healthcare administered with the aid of information BYOM! provides. The information contained herein is not intended to cover all possible uses, directions, precautions, warnings, drug interactions, allergic reactions, or adverse effects. If you have questions about the drugs you are taking, check with your doctor, nurse or pharmacist. Copyright 8678-6404 [employer]. Version: 13.02. Revision Date: 07/07/2020. Education Materials [...] care provider or pharmacist before using an ejqz-fzw-duvealu cough medicine. You may use acetaminophen or ibuprofen to control pain, unless another medicine was prescribed. If you have chronic liver or kidney disease, talk with your provider before using these medicines. Alsotalk with your provider if you ve had a stomach ulcer or GI bleeding. Follow-up care Follow up with your health care provider, or as advised. When to seek medical advice Call your health care provider right away if any of these occur: A change in the type of pain. This means if it feels different, gets worse, lasts longer, or beginsto spread into your shoulder, arm, neck, jaw, or back. Pain doesn t go away in 1 week Shortness of breath, difficulty breathing, or fast breathing Pain gets worse when you breathe Cough with dark-colored sputum (phlegm) or blood Weakness, dizziness, or fainting Fever of 101 F (38.3 C) or higher, or as directed by your health care provider [phone] [employer]. [address] [place] [address]. All rights reserved. This information is not intended as a substitute for professional medical care. Always follow yourhealthcare professional's instructions. Additional Information VACCINATE! IT SAVES LIVES! Members of the community who have not yet received the COVID-19 vaccine and would like to receive it can visit one of [facility] vaccine clinics. There are many vaccine clinic locations within the [facility]. For locations and available times, please visit [email or web address]. It is important to note that some COVID mobile vaccine clinics are held outdoors and may be canceled in rainy orstormy conditions. To learn more about pediatric vaccinations (ages 5-11), we invite you to visit the [facility] webpage. [email or web address] stions.htmlTo learn more about the COVID-19 vaccine, we invite you to visit the [facility] website for a list of frequently asked questions. [email or web address] _Asked-Questions.pdf [facility] Patient Portal Access Instructions: Stay connected with your healthcare team and access your personal medical information anytime with the [facility] Patient Portal. If you would like a full copy of your medical records please contact the [facility] Medical Records Department Sunday through Sunday between 8a.m. and 4:30p.m. Please follow the directions below to access the portal: 1.Access the email account you provided upon registration to the [facility].2.Look for an invitation email from [facility].3.Open the email and access the invitation link: Accept Invitation to [facility]4.Fill in the required lugo to create your account. Sign into [email or web address] with your username and password that you [...] you will allow to register on the [facility] Patient Portal for access to your information. You can also access the [facility] Patient Portal on the [employer] lisa. Simply click on Health Records under 4tiitoo and then click on the Monika logo. HOW TO SAFELY DISPOSE OF PRESCRIPTION MEDICATIONS Please use one of the following methods to safely dispose of your unused medications. 1.Use a drug disposal kit: the drug disposal pouch allows you to safely discard your old and unuseddrugs. Ask your nurse to give you one when you are discharged.2.Visit a local take-back location: Many local pharmacies and police departments have programs that collect old and unwanted prescriptiondrugs. Call your local pharmacy or go to http://bit.ly/4C2Oy6l to find one close to you.3.Make use of household items: Use cat litter or old coffee grounds to dispose medications if other options arenot available. Mix your drugs with these household products, seal them in an airtight container andthrow it into the garbage. Call [facility]: [phone] to be sure your drugs can be [...] drowsiness, such as benzodiazepines, also known as benzos,including diazepam and alprazolam, muscle relaxants or sleep aids. Never sell or share prescriptionopioids. This is illegal. Store opioids in a [...] aware that I should contact my doctor. Patient/Produce Assistant Signature: Date/Time: Relationship to Patient: Witness Name/Signature: Date/Time: [facility]11-25-2022 Note ORIGINAL EXAMINATION: XRAY VIEWS OF THE [...] Sign Date: 05/12/2022 8:07:20 AM Ordering Provider: [facility]11-25-2022 Note ORIGINAL EXAMINATION: XRAY VIEWS OF THE [...] Sign Date: 05/12/2022 8:07:20 AM Ordering Provider: [facility]11-13-2022 Hospital Discharge instructions Patient Education 04/30/2022 06:07:49 Abdominal Pain, [...] to nausea. Constipation, diarrhea, and a fever maygo along with the pain. The pain may [...] also be good. Sports drinks may also help,especially if they are not too acidic. Don't [...] meats. These foods will pass more easily throughthe intestine. Don t have whole-grain foods, whole [...] or water and you are getting dehydrated 7318-3152 [employer]. [address] [place] [address]. All rights reserved. This information is not intended as a substitute for professional medical care. Always follow yourhealthcare professional's instructions. Follow Up Care 04/30/2022 05:37:14 With:MILKA SCHNEIDER Address: [address] [place] [address] [phone] When:2-4 days [facility] 11-13-2022 Note Discharge Instructions Thank you for allowing [facility] to assist you with your healthcare needs. The following is importantdischarge information regarding your hospital visit. Diagnosis from Today's Visit Upper abdominal pain Anxiety Abdominal pain x weeks Fatigue x weeks What to Do Next Instructions from Your Care Team No qualifying data available. Post Acute Orders No qualifying data available. You Need to Schedule the Following Appointments Follow Up with MILKA SCHNEIDER When Within 2-4 days Where: [address] [place] [place] [address] [phone] Allergies Imitrex (tunnel vision) Medications Please ask your primary doctor or pharmacist before taking any other medication not listed, including over the counter drugs, herbal medications, vitamins and or supplements as they may interact withyour home medications. What How Much When Why [...] to nausea. Constipation, diarrhea, and a fever maygo along with the pain. The pain may [...] also be good. Sports drinks may also help,especially if they are not too acidic. Don't [...] meats. These foods will pass more easily throughthe intestine. Don t have whole-grain foods, whole [...] or water and you are getting dehydrated 6227-9333 [employer]. [address] [place] [address]. All rights reserved. This information is not intended as a substitute for professional medical care. Always follow yourhealthcare professional's instructions. Additional Information VACCINATE! IT SAVES LIVES! Members of the community who have not yet received the COVID-19 vaccine and would like to receive it can visit one of [facility] vaccine clinics. There are many vaccine clinic locations within the [facility]. For locations and available times, please visit [email or web address]. It is important to note that some COVID mobile vaccine clinics are held outdoors and may be canceled in rainy orstormy conditions. To learn more about pediatric vaccinations (ages 5-11), we invite you to visit the [facility] webpage. [email or web address]://[email or web address]/pages/[email or web address]-Vjpcf-Jcnxgxvtgpb-Lrcshhhgcq-Htxuo-Xar stions.htmlTo learn more about the COVID-19 vaccine, we invite you to visit the [facility] website for a list of frequently asked questions. [email or web address]/[email or web address] _Asked-[email or web address].pdf [facility] Access Instructions: Stay connected with your healthcare team and access your personal medical information anytime with the [facility] Patient Portal. If you would like a full copy of your medical records please contact the [facility] Medical Records Department Sunday through Sunday between 8a.m. and 4:30p.m. Please follow the directions below to access the portal: 1.Access the email account you provided upon registration to the [facility].2.Look for an invitation email from [facility].3.Open the email and access the invitation link: Accept [facility] to [facility]4.Fill in the required lugo to create your account. Sign into [email or web address] with your username and password that you [...] you will allow to register on the [facility] Patient Portal for access to your information. You can also access the [facility] Patient Portal on the RES Software. Simply click on Health Records under ClassBugta and then click on the [employer] logo. HOW TO SAFELY DISPOSE OF PRESCRIPTION MEDICATIONS Please use one of the following methods to safely dispose of your unused medications. 1.Use a drug disposal kit: the drug disposal pouch allows you to safely discard your old and unuseddrugs. Ask your nurse to give you one when you are discharged.2.Visit a local take-back location: Many local pharmacies and police departments have programs that collect old and unwanted prescriptiondrugs. Call your local pharmacy or go to http://bit.[employer]ial [employer]/8K9Wo9j to find one close to you.3.Make use of household items: Use cat litter or old coffee grounds to dispose medications if other options arenot available. Mix your drugs with these household products, seal them in an airtight container andthrow it into the garbage. Call [facility]: [phone] to be sure your drugs can be [...] drowsiness, such as benzodiazepines, also known as benzos,including diazepam and alprazolam, muscle relaxants or sleep aids. Never sell or share prescriptionopioids. This is illegal. Store opioids in a secure place and out of reach of others (including children, family, friends and visitors). The last page(s) of this document has been signed and retained as a CHART COPY Signatures Patient Education Materials Abdominal Pain, Unknown Cause, (Female) Medication Leaflets My discharge plan and instructions have been reviewed and explained to me and ILUAN BONNIE L understand my current condition and have read and understand these discharge instructions. I have received a written copy of the plan/instructions. If I have questions, I am aware that I should contact my doctor. Patient/Produce Assistant Signature: Date/Time: Relationship to Patient: Witness Name/Signature: Date/Time: [facility] [id number] Hospital Discharge instructions Patient Education 04/20/2022 07:58:59 Hyperthyroidism Hyperthyroidism You have hyperthyroidism. This means you have a thyroid gland that makes too much thyroid hormone. This hormone is vital to body growth and metabolism. If you make too much thyroid hormone, many bodyprocesses speed up and may not work right. [...] more than normal Fast or irregular heartbeat Organizational Research Consultant or irregular periods (women only) More frequent bowel movements Enlarged thyroid gland (goiter) Bulging eyes Problems sleeping Muscle weakness Fatigue Swelling of the hands, ankles, or feet (older adults only) Your healthcare provider will need to do some tests to see exactly which form of hypothyroidism youhave. This is because the treatments are different. [...] interactions, check with your pharmacist before using aijh-pwk-ffzpdih medicines with your prescribed medicines. Use a [...] may need regular tests to check the levelof thyroid hormone in your blood. When to seek medical advice Call your healthcare provider right away if any of these occur: New symptoms occur Symptoms return, continue, or worsen even after treatment Extreme fatigue Puffy hands, face, or feet Confusion Call 911 Call 911 if any of these occur: Fainting Chest pain Shortness of breath or trouble breathing [id number] [facility] [place] [address], [place] [address]. All rights reserved. This information is not intended as a substitute for professional medical care. Always follow yourhealthcare professional's instructions. 04/20/2022 07:58:46 Anxiety Reaction Anxiety Reaction Anxiety is the feeling we all get when we think something bad might happen. It is a normal responseto stress and usually causes only a mild [...] relieved by rest and mild pain reliever 4852-3392 [employer]. [address] [place] [address], [place] [address]. All rights reserved. This information is not intended as a substitute for professional medical care. Always follow [facility] professional's instructions. 04/20/2022 06:24:17 Anxiety Reaction Anxiety Reaction Anxiety is the feeling we all get when we think something bad might happen. It is a normal responseto stress and usually causes only a mild [...] relieved by rest and mild pain reliever 7665-5409 [employer]. [address] [place] [address], [place] [address]. All rights reserved. This information is not intended as a substitute for professional medical care. Always follow yourhealthcare professional's instructions. Follow Up Care 04/20/2022 06:11:22 With:MILKA SCHNEIDER Address: [address] [place] [address] [phone] When:2-4 days Comments:STOP your current Levothyroxine for two days , then use the new lower dose pills. [facility] 11-03-2022 Note Discharge Instructions Thank you for allowing [facility] to assist you with your healthcare needs. The following is importantdischarge information regarding your hospital visit. Diagnosis from [...] use the new lower dose pills. Where: [facility] [place] [address] [phone] Allergies Imitrex (tunnel vision) Medications Please ask your primary doctor or pharmacist before taking any other medication not listed, including over the counter drugs, herbal medications, vitamins and or supplements as they may interact withyour home medications. What How Much When Why [...] without asking your doctor. You may have life- threatening withdrawal symptoms if you stop using the [...] What is lorazepam? Lorazepam is a benzodiazepine (jku-zaa-mye-AZE-eh-peen) that is used to treat anxiety disorders. [...] supplied measuring device (not a kitchen spoon). Mixthe liquid with water, juice, soda, or soft [...] without asking your doctor. You may have life- threatening withdrawal symptoms if you stop using the [...] adults. Use caution to avoid falling or accidentalinjury. Common side effects may include: dizziness, drowsiness; [...] may report side effects to FDA at [phone]-5506. What other drugs will affect lorazepam? Taking [...] drugs may affect lorazepam, including prescription and arvb-vdl-uomptne medicines, vitamins, and herbal products. Not all [...] to ensure that the information provided by [employer]. ('[employer]') is accurate, up-to-date, and complete, but no guarantee is made to that effect. Drug information contained herein may be time sensitive. BYOM! information has been compiled for use by healthcare practitioners and consumers in the [place] and therefore BYOM! does not warrant that uses outside of the [place] are appropriate, unless specifically indicated otherwise. [employer] drug information does not endorse drugs, diagnose patients or recommend therapy. CoffeeTables drug information isan informational resource designed to assist licensed healthcare practitioners in caring for their p atients and/or to serve consumers viewing this service as a supplement to, and not a substitute for, the expertise, skill, knowledge and judgment of healthcare practitioners. The absence of a warningfor a given drug or drug combination in no way should be construed to indicate that the drug or drug combination is safe, effective or appropriate for any given patient. BY[employer]! does not assume any responsibility for any aspect of healthcare administered with the aid of information BYOM! provides. The information contained herein is not intended to cover all possible uses, directions, precautions, warnings, drug interactions, allergic reactions, or adverse effects. If you have questions about the drugs you are taking, check with your doctor, nurse or pharmacist. Copyright 2942-7921 [employer]. Version: 10.. Revision Date: 04/05/2021. levothyroxine (oral/injection) (MARY voe [...] goiter (enlarged thyroid gland), which can be causedby hormone imbalances, radiation treatment, surgery, or cancer. [...] during could harm both mother and baby. Yourdose needs may be different during . Tell [...] may report side effects to FDA at 9-245-EUN-0888. What other drugs will affect levothyroxine? Many other medicines can be affected by your thyroid hormone levels. Certain other medicines may also increase or decrease the effects of levothyroxine. If you use any of the following drugs, avoid taking them within 4 hours before or 4 hours after youuse levothyroxine: calcium carbonate (Anneliese-Mints, Caltrate, Os-Alon, Oyster Shell Calcium, Rolaids Soft Chew, Tums, andothers); cholestyramine, colesevelam, colestipol; ferrous sulfate iron supplement; sucralfate; sodium polystyrene sulfonate (Kalexate, Kayexalate, Kionex); stomach acid reducers--esomeprazole, lansoprazole, omeprazole, rabeprazole, Nexium, Prilosec, Prevacid, Protonix, Zegerid, and others; or antacids that contain aluminum or magnesium--Gaviscon, Maalox, Milk of Magnesia, Mintox, Mylanta, Pepcid Complete, and others. Many drugs can affect levothyroxine. This includes prescription and cvdq-fhn-tqphbjf medicines, vitamins, and herbal products. Not all [...] to ensure that the information provided by [employer]. ('[employer]') is accurate, up-to-date, and complete, but no guarantee is made to that effect. Drug information contained herein may be time sensitive. BYOM! information has been compiled for use by healthcare practitioners and consumers in the [place] and therefore BYOM! does not warrant that uses outside of the [place] are appropriate, unless specifically indicated otherwise. [employer] drug information does not endorse drugs, diagnose patients or recommend therapy. Coffee[employer] drug information isan informational resource designed to assist licensed healthcare practitioners in caring for their p atients and/or to serve consumers viewing this service as a supplement to, and not a substitute for, the expertise, skill, knowledge and judgment of healthcare practitioners. The absence of a warningfor a given drug or drug combination in no way should be construed to indicate that the drug or drug combination is safe, effective or appropriate for any given patient. BY[employer]! does not assume any responsibility for any aspect of healthcare administered with the aid of information BYOM! provides. The information contained herein is not intended to cover all possible uses, directions, precautions, warnings, drug interactions, allergic reactions, or adverse effects. If you have questions about the drugs you are taking, check with your doctor, nurse or pharmacist. Copyright 2635-9145 [employer]. Version: 16.. Revision Date: 10/05/2021. Education Materials Hyperthyroidism You have hyperthyroidism. This means you have a thyroid gland that makes too much thyroid hormone. This hormone is vital to body growth and metabolism. If you make too much thyroid hormone, many bodyprocesses speed up and may not work right. [...] more than normal Fast or irregular heartbeat Organizational Research Consultant or irregular periods (women only) More frequent bowel movements Enlarged thyroid gland (goiter) Bulging eyes Problems sleeping Muscle weakness Fatigue Swelling of the hands, ankles, or feet (older adults only) Your healthcare provider will need to do some tests to see exactly which form of hypothyroidism youhave. This is because the treatments are different. [...] interactions, check with your pharmacist before using rekz-pvd-hleophb medicines with your prescribed medicines. Use a [...] may need regular tests to check the levelof thyroid hormone in your blood. When to seek medical advice Call your healthcare provider right away if any of these occur: New symptoms occur Symptoms return, continue, or worsen even after treatment Extreme fatigue Puffy hands, face, or feet Confusion Call 911 Call 911 if any of these occur: Fainting Chest pain Shortness of breath or trouble breathing [phone] [employer]. [address] [place] [address]. All rights reserved. This information is not intended as a substitute for professional medical care. Always follow yourhealthcare professional's instructions. Anxiety Reaction Anxiety is the feeling we all get when we think something bad might happen. It is a normal responseto stress and usually causes only a mild [...] relieved by rest and mild pain reliever 0040-[address] [facility]. [address] [place] [address]. All rights reserved. This information is not intended as a substitute for professional medical care. Always follow yourhealthcare professional's instructions. Anxiety Reaction Anxiety is the feeling we all get when we think something bad might happen. It is a normal responseto stress and usually causes only a mild [...] relieved by rest and mild pain reliever 7478-5327 [employer]. [address] [place] [address]. All rights reserved. This information is not intended as a substitute for professional medical care. Always follow yourhealthcare professional's instructions. Additional Information VACCINATE! IT SAVES LIVES! Members of the community who have not yet received the COVID-19 vaccine and would like to receive it can visit one of [facility] vaccine clinics. There are many vaccine clinic locations within the [facility]. For locations and available times, please visit [email or web address]. It is important to note that some COVID mobile vaccine clinics are held outdoors and may be canceled in rainy orstormy conditions. To learn more about pediatric vaccinations (ages 5-11), we invite you to visit the [facility] webpage. [email or web address] [email or web address] learn more about the COVID-19 vaccine, we invite you to visit the [facility] website for a list of frequently asked questions. [email or web address]/[email or web address]-[email or web address] _Asked-Questions.pdf [facility] Patient Portal Access Instructions: Stay connected with your healthcare team and access your personal medical information anytime with the [facility] Patient Portal. If you would like a full copy of your medical records please contact the [facility] Medical Records Department Sunday through Sunday between 8a.m. and 4:30p.m. Please follow the directions below to access the portal: 1.Access the email account you provided upon registration to the [facility].2.Look for an invitation email from [facility].3.Open the email and access the invitation link: Accept Invitation to [facility]4.Fill in the required lugo to create [...] you will allow to register on the [facility] Patient Portal for access to your information. You can also access the [facility] Patient Portal on the [employer] lisa. Simply click on Health Records under [email or web address] and then click on the Monika logo. HOW TO SAFELY DISPOSE OF PRESCRIPTION MEDICATIONS Please use one of the following methods to safely dispose of your unused medications. 1.Use a drug disposal kit: the drug disposal pouch allows you to safely discard your old and unuseddrugs. Ask your nurse to give you one when you are discharged.2.Visit a local take-back location: Many local pharmacies and police departments have programs that collect old and unwanted prescriptiondrugs. Call your local pharmacy or go to http://bit.ly/4L0Pu9x to find one close to you.3.Make use of household items: Use cat litter or old coffee grounds to dispose medications if other options arenot available. Mix your drugs with these household products, seal them in an airtight container andthrow it into the garbage. Call [facility]: [phone] to be sure your drugs can be [...] drowsiness, such as benzodiazepines, also known as benzos,including diazepam and alprazolam, muscle relaxants or sleep aids. Never sell or share prescriptionopioids. This is illegal. Store opioids in a [...] been reviewed and explained to me and ILUAN BONNIE L understand my current condition and have read and understand these discharge instructions. I have received a written copy of the plan/instructions. If I have questions, I am aware that I should contact my doctor. Patient/Produce Assistant Signature: Date/Time: Relationship to Patient: Witness Name/Signature: Date/Time: [facility] [id number] Hospital Discharge instructions Patient Education 04/06/2022 15:59:14 Hyperthyroidism Hyperthyroidism You have hyperthyroidism. This means you have a thyroid gland that makes too much thyroid hormone. This hormone is vital to body growth and metabolism. If you make too much thyroid hormone, many bodyprocesses speed up and may not work right. [...] more than normal Fast or irregular heartbeat Organizational Research Consultant or irregular periods (women only) More frequent bowel movements Enlarged thyroid gland (goiter) Bulging eyes Problems sleeping Muscle weakness Fatigue Swelling of the hands, ankles, or feet (older adults only) Your healthcare provider will need to do some tests to see exactly which form of hypothyroidism youhave. This is because the treatments are different. [...] interactions, check with your pharmacist before using tdri-nna-wkukqcn medicines with your prescribed medicines. Use a [...] may need regular tests to check the levelof thyroid hormone in your blood. When to seek medical advice Call your healthcare provider right away if any of these occur: New symptoms occur Symptoms return, continue, or worsen even after treatment Extreme fatigue Puffy hands, face, or feet Confusion Call 911 Call 911 if any of these occur: Fainting Chest pain Shortness of breath or trouble breathing 8944-1367 [facility]. [address] [place] [address]. All rights reserved. This information is not intended as a substitute for professional medical care. Always follow yourhealthcare professional's instructions. 04/06/2022 15:59:12 Anxiety Reaction Anxiety Reaction Anxiety is the feeling we all get when we think something bad might happen. It is a normal responseto stress and usually causes only a mild [...] relieved by rest and mild pain reliever 4227-6992 [employer]. [address] [place] [address]. All rights reserved. This information is not intended as a substitute for professional medical care. Always follow yourhealthcare professional's instructions. Follow Up Care 04/06/2022 14:38:34 With:MILKA SCHNEIDER Address: [address] [place] [address] [place] [phone] When:2-4 days [facility] 10-20-2022 Emergency department Discharge summary Discharge Instructions Thank you for allowing [facility] to assist you with your healthcare needs. The following is importantdischarge information regarding your hospital visit. Diagnosis from Today's Visit Hyperthyroidism Anxiety Anxiety What to Do Next Instructions from Your Care Team No qualifying data available. Post Acute Orders No qualifying data available. You Need to Schedule the Following Appointments Follow Up with MILKA SCHNEIDER When Within 2-4 days Where: [address] [place] [place] [address] [phone] Allergies Imitrex (tunnel vision) Medications Please ask your primary doctor or pharmacist before taking any other medication not listed, including over the counter drugs, herbal medications, vitamins and or supplements as they may interact withyour home medications. What How Much When Why [...] you make too much thyroid hormone, many bodyprocesses speed up and may not work right. [...] more than normal Fast or irregular heartbeat Organizational Research Consultant or irregular periods (women only) More frequent bowel movements Enlarged thyroid gland (goiter) Bulging eyes Problems sleeping Muscle weakness Fatigue Swelling of the hands, ankles, or feet (older adults only) Your healthcare provider will need to do some tests to see exactly which form of hypothyroidism youhave. This is because the treatments are different. [...] interactions, check with your pharmacist before using cktr-cna-olvltxo medicines with your prescribed medicines. Use a [...] may need regular tests to check the levelof thyroid hormone in your blood. When to seek medical advice Call your healthcare provider right away if any of these occur: New symptoms occur Symptoms return, continue, or worsen even after treatment Extreme fatigue Puffy hands, face, or feet Confusion Call 911 Call 911 if any of these occur: Fainting Chest pain Shortness of breath or trouble breathing 5414-7273 [employer]. [address] [place] [address]. All rights reserved. This information is not intended as a substitute for professional medical care. Always follow yourhealthcare professional's instructions. Anxiety Reaction Anxiety is the feeling we all get when we think something bad might happen. It is a normal responseto stress and usually causes only a mild [...] relieved by rest and mild pain reliever 0841-6213 [employer]. [address] [place] [address], [place] [address]. All rights reserved. This information is not intended as a substitute for professional medical care. Always follow yourhealthcare professional's instructions. Additional Information VACCINATE! IT SAVES LIVES! Members of the community who have not yet received the COVID-19 vaccine and would like to receive it can visit one of [facility] vaccine clinics. There are many vaccine clinic locations within the [facility]. For locations and available times, please visit [email or web address]. It is important to note that some COVID mobile vaccine clinics are held outdoors and may be canceled in rainy orstormy conditions. To learn more about pediatric vaccinations (ages 5-11), we invite you to visit the [facility] webpage. [email or web address] [email or web address] learn more about the COVID-19 vaccine, we invite you to visit the [employer] website for a list of frequently asked questions. [email or web address] _Asked-[email or web address].pdf [facility] Patient Portal Access Instructions: Stay connected with your healthcare team and access your personal medical information anytime with the [facility] Patient Portal. If you would like a full copy of your medical records please contact the [facility] Medical Records Department Sunday through Sunday between 8a.m. and 4:30p.m. Please follow the directions below to access the portal: 1.Access the email account you provided upon registration to the [facility].2.Look for an invitation email from [facility].3.Open the email and access the invitation link: Accept Invitation to [facility]4.Fill in the required lugo to create your account. Sign into [email or web address] with your username and password that you [...] you will allow to register on the [employer] Patient Portal for access to your information. You can also access the [employer] Patient Portal on the [employer] lisa. Simply click on Health Records under [employer]tiitoo and then click on the [employer] logo. HOW TO SAFELY DISPOSE OF PRESCRIPTION MEDICATIONS Please use one of the following methods to safely dispose of your unused medications. 1.Use a drug disposal kit: the drug disposal pouch allows you to safely discard your old and unuseddrugs. Ask your nurse to give you one when you are discharged.2.Visit a local take-back location: Many local pharmacies and police departments have programs that collect old and unwanted prescriptiondrugs. Call your local pharmacy or go to http://[employer] [email or web address].[employer]/2W9Ox0p to find one close to you.3.Make use of household items: Use cat litter or old coffee grounds to dispose medications if other options arenot available. Mix your drugs with these household products, seal them in an airtight container andthrow it into the garbage. Call [facility]: [phone] to be sure your drugs can be [...] drowsiness, such as benzodiazepines, also known as benzos,including diazepam and alprazolam, muscle relaxants or sleep aids. Never sell or share prescriptionopioids. This is illegal. Store opioids in a [...] aware that I should contact my doctor. Patient/Produce Assistant Signature: Date/Time: Relationship to Patient: Witness Name/Signature: Date/Time: [facility]22 Hospital Discharge instructions Patient Education 03/29/2022 04:46:21 Anxiety Reaction Anxiety Reaction Anxiety is the feeling we all get when we think something bad might happen. It is a normal responseto stress and usually causes only a mild [...] relieved by rest and mild pain reliever 6036-4068 [facility] [place] [address]. All rights reserved. This information is not intended as a substitute for professional medical care. Always follow [facility] professional's instructions. 03/29/2022 04:46:14 Palpitations Heart Palpitations Palpitations are the feeling that your heart is beating hard, fast, or irregular. Some describe it as pounding or skipped beats. Palpitations may occur in someone with heart disease, but can alsooccur in a healthy person. Heart-related causes: Arrhythmia (a change from the heart's normal rhythm) Heart valve disease Disease of the heart muscle Coronary artery disease High blood pressure Qei-qwwax-eizfjyx causes: Certain medicines such as asthma inhalers [...] Tell your doctor about any prescription or bdif-cnw-kvojiyc or herbal medicines you take. Follow-up care [...] of the following: Weakness Dizziness Lightheadedness Fainting [id number] [employer]. [address] [place] [address]. All rights reserved. This information is not intended as a substitute for professional medical care. Always follow yourhealthcare professional's instructions. Follow Up Care 03/29/2022 03:37:12 With:MILKA SCHNEIDER Address: [address] [place] [address] [place] [address] [phone] When:2-4 days [facility] 10-12-2022 Note Discharge Instructions Thank you for allowing [facility] to assist you with your healthcare needs. The following is importantdischarge information regarding your hospital visit. Diagnosis from Today's Visit Palpitations Anxiety Anxiety What to Do Next Instructions from Your Care Team No qualifying data available. Post Acute Orders No qualifying data available. You Need to Schedule the Following Appointments Follow Up with MILKA SCHNEIDER When Within 2-4 days Where: [address] [place] [address] [phone] Allergies Imitrex (tunnel vision) Medications Please ask your primary doctor or pharmacist before taking any other medication not listed, including over the counter drugs, herbal medications, vitamins and or supplements as they may interact withyour home medications. What How Much When Instructions [...] bad might happen. It is a normal responseto stress and usually causes only a mild [...] relieved by rest and mild pain reliever [id number] [employer]. [address] [place] [address], [place] [address]. All rights reserved. This information is not intended as a substitute for professional medical care. Always follow yourhealthcare professional's instructions. Heart Palpitations Palpitations are the feeling that your heart is beating hard, fast, or irregular. Some describe it as pounding or skipped beats. Palpitations may occur in someone with heart disease, but can alsooccur in a healthy person. Heart-related causes: Arrhythmia (a change from the heart's normal rhythm) Heart valve disease Disease of the heart muscle Coronary artery disease High blood pressure Wrc-ontji-vyxvqzn causes: Certain medicines such as asthma inhalers [...] Tell your doctor about any prescription or ylvi-xgu-xkxaomy or herbal medicines you take. Follow-up care [...] of the following: Weakness Dizziness Lightheadedness Fainting [id number] [employer]. [address] [place] [address]. All rights reserved. This information is not intended as a substitute for professional medical care. Always follow yourhealthcare professional's instructions. Additional Information VACCINATE! IT SAVES LIVES! Members of the community who have not yet received the COVID-19 vaccine and would like to receive it can visit one of [facility] vaccine clinics. There are many vaccine clinic locations within the [facility]. For locations and available times, please visit [email or web address]. It is important to note that some COVID mobile vaccine clinics are held outdoors and may be canceled in rainy orstormy conditions. To learn more about pediatric vaccinations (ages 5-11), we invite you to visit the [facility] webpage. [email or web address] learn more about the COVID-19 vaccine, we invite you to visit the [facility] website for a list of frequently asked questions. [email or web address] [facility] Patient Portal Access Instructions: Stay connected with your healthcare team and access your personal medical information anytime with the [facility] Patient Portal. If you would like a full copy of your medical records please contact the [facility] Medical Records Department Sunday through Sunday between 8a.m. and 4:30p.m. Please follow the directions below to access the portal: 1.Access the email account you provided upon registration to the [facility].2.Look for an invitation email from [facility].3.Open the email and access the invitation link: Accept Invitation to [facility].Fill in the required lugo to create your account. Sign into [email or web address] with your username and password that you [...] you will allow to register on the [facility] Patient Portal for access to your information. You can also access the [facility] Patient Portal on the [employer]. Simply click on Health Records under [employer] and then click on the [employer] logo. HOW TO SAFELY DISPOSE OF PRESCRIPTION MEDICATIONS Please use one of the following methods to safely dispose of your unused medications. 1.Use a drug disposal kit: the drug disposal pouch allows you to safely discard your old and unuseddrugs. Ask your nurse to give you one when you are discharged.2.Visit a local take-back location: Many local pharmacies and police departments have programs that collect old and unwanted prescriptiondrugs. Call your local pharmacy or go to http://bit.[employer]/0B0Pt6i to find one close to you.3.Make use of household items: Use cat litter or old coffee grounds to dispose medications if other options arenot available. Mix your drugs with these household products, seal them in an airtight container andthrow it into the garbage. Call [facility]: [phone] to be sure your drugs can be [...] drowsiness, such as benzodiazepines, also known as benzos,including diazepam and alprazolam, muscle relaxants or sleep aids. Never sell or share prescriptionopioids. This is illegal. Store opioids in a [...] aware that I should contact my doctor. Patient/Produce Assistant Signature: Date/Time: Relationship to Patient: Witness Name/Signature: Date/Time: [facility] Monika PedroDissavanarge summary Author Rodolfo Gonzales [facility] December 11, 2022 3:56am Note Date/Time December 11, 2022 2:59 am [facility] Medical Records Department [address] [place] [address] Emergency Department Summary 12/11/22 MR#: [id number] Acct: [id number] Name: HELEN ROLAND Rep #:[id number] : 1970 52 From: Rodolfo Gonzales DO PCP: Dr. Milka Schneider MD Status:REG ER Location: ED HPI History of Present Illness Chief Complaint: Anxiety Informant: patient and spouse/S.O. Narrative Narrative: Patient is a 52-year-old female with past medical history of Saritha's thyroiditis hypertension and anxiety. She states that she took her normal medications today but this evening has not been able to control her anxiety symptoms and has had generalized tremors which concerns her even further and secondary to this presents for evaluation [facility] Medical History Allergies Anginal equivalent Anxiety Anxiety Back problem Breast pain, left Carpal tunnel syndrome Chronic neck pain Chronic thoracic back pain Dietary restriction Difficulty swallowing Fat necrosis of breast Former smoker Generalized headaches GERD (gastroesophageal reflux disease) History of echocardiogram History of staph infection History of steroid therapy History of stress test History of ulceration Hormone deficiency Hypertension Hypothyroidism Intertrigo Macromastia Marijuana use Mass of left breast Mass of right breast Methicillin resistant Staphylococcus epidermidis infection Migraine headache Other acute postprocedural pain Shoulder pain Thyroid disease Vision problem Wears glasses Wears partial dentures Home Medications losartan 25 mg tablet (Cozaar) 25 mg PO DAILY 01/27/21 [History Last Taken 10/06/22 07:30] zolpidem 5 mg tablet (Ambien) 5 mg PO QHS PRN Sleep 07/21/21 [History Last Taken Unknown] escitalopram oxalate 10 mg tablet (Lexapro) 20 mg PO DAILY 02/12/22 [History Last Taken Unknown] levothyroxine 125 mcg tablet 75 mcg PO DAILY thyroid 06/23/22 [History Last Taken 10/06/22 07:30] ondansetron 4 mg disintegrating tablet 4 mg PO Q6H PRN nausea and vomiting #20 tabs 11/03/22 [Rx Last Taken Unknown] buspirone 5 mg tablet 5 mg PO BID 12/11/22 [History Last Taken Unknown] famotidine 20 mg tablet 20 mg PO DAILY 12/11/22 [History Last Taken Unknown] linaclotide 290 mcg capsule (Linzess) 290 mcg PO DAILY PRN PRN CONSTIPATION 12/11/22 [History Last Taken Unknown] Allergy/AdvReac Type Severity Reaction Status Date / Time azithromycin Allergy Diarrhea Verified 11/06/22 13:57 [From Zithromax Z-Keo] sumatriptan [From Imitrex] Allergy TUNNEL Verified 11/06/22 13:57 VISION sumatriptan succinate Allergy TUNNEL Verified 11/06/22 13:57 [From Imitrex] VISION tramadol AdvReac nausea and Verified 11/06/22 13:57 vomiting Family History Other Anxiety Depression Epilepsy Hormone deficiency Hypertension Seizures Surgical History (Updated 11/08/22 @ 21:[address] Alexsander Eckert MD) History of bilateral breast reduction surgery History of breast lump/mass excision History of carpal tunnel release History of esophagogastroduodenoscopy (EGD) S/P correction of deviated nasal septum S/P hysterectomy S/P laparoscopic cholecystectomy S/P left knee surgery S/P tubal ligation S/P wisdom tooth extraction Social History Smoking Status: Former smoker alcohol intake: never substance use type: does not use additional social history: Does Not Take Aspirin Does Not Take Ibuprofen ROS ROS ED Constitutional Constitutional ED: Denies chills or fever(s) Eyes Eyes: Denies change in vision ENT ENT ED: Denies sore throat Cardiovascular Cardiovascular: Reports palpitations and racing heartbeat; Denies chest pain Respiratory/Chest Respiratory/Chest: Denies cough or dyspnea Gastrointestinal Gastrointestinal: Reports nausea; Denies abdominal pain, diarrhea or vomiting Genitourinary Genitourinary ED: Denies dysuria Musculoskeletal Musculoskeletal: Reports myalgias Integumentary Denies rash Neurologic Neurologic: Reports other Details: Positive tremors ; Denies headache(s) or paresthesias Psychiatric Psychiatric: Reports anxiety Hematologic/Lymphatic Hematologic/Lymphatic: Denies easy bleeding or easy bruising EXAM Physical Exam Const Vital Signs: 12/11/22 02:38 12/11/22 03:27 Temperature 97.6 F L Temperature Source Temporal Pulse Rate 106 H 82 Respiratory Rate 22 H 20 H Blood Pressure 196/98 H 144/82 H Blood Pressure Mean 130 102 Pulse Ox 100 95 Oxygen Delivery Method Room Air Room Air Positive well nourished and well developed General Appearance ED: well developed HEENT Reports moist mucous membranes Eyes PERRL and EOMs intact bilaterally General Eye ED: Negative for scleral icterus Neck supple Resp normal respiratory effort and clear to auscultation bilaterally Cardio regular rhythm Rate: tachycardic and other Other Details: Radial pulses are plus 2 out of 4 bilaterally are equal and symmetric GI normal to inspection, nondistended, normoactive bowel sounds, non-tender, non-distended and no masses GI Narrative: A reducible ventral hernias noted. No voluntary guarding or rigidity. No pulsatile mass or fluid wave Auscultation: normoactive bowel sounds Palpation: soft Extremity normal to inspection Neuro oriented x3 and CN's II-XII intact bilaterally Neuro Narrative: Patient has generalized tremors to the arms and legs but with focused motion of each extremity the tremors reduce or stop completely Sensorium / Orientation: alert Psych Psych Narrative: Patient has a nervous/anxious affect. No homicidal or suicidal ideation Skin no rashes or lesions noted MDM MDM Lab Data Labs: Laboratory Results - last 24 hr 12/11/22 12/11/22 03:02 03:02 WBC 8.9 RBC 4.48 Hgb 13.4 Hct 41.1 MCV 91.7 MCH 29.9 MCHC 32.6 RDW Std Deviation 45.6 H RDW Coeff of Dylon 13.5 Plt Count 273 MPV 10.0 Immature Gran % (Auto) 0.300 Neut % (Auto) 64.7 Lymph % (Auto) 26.7 [place] % (Auto) 7.1 Eos % (Auto) 0.8 Baso % (Auto) 0.4 Absolute Neuts (auto) 5.8 Absolute Lymphs (auto) 2.38 Nucleated RBC % 0 Sodium 142 Potassium 3.5 Chloride 110 H Carbon Dioxide 23.0 Anion Gap 9 BUN 11 Creatinine 0.96 Estim Creat Clear Calc 70.72 Est GFR (MDRD) Af Amer 79 Est GFR (MDRD) Non-Af 65 BUN/Creatinine Ratio 11.4 Glucose 103 Calcium 9.7 Magnesium 2.1 TSH 7.34 H Discharge Plan Triage Chief Complaint: Anxiety ED Provider: Rodolfo Gonzales Dx/Rx/DC Orders Clinical Impression: Anxiety reaction, Elevated TSH Instructions: ED Anxiety Reaction Prescriptions: No Action losartan [Cozaar] 25 mg tablet 25 mg PO DAILY levothyroxine 125 mcg tablet 75 mcg PO DAILY zolpidem [Ambien] 5 mg Tablet 5 mg PO QHS PRN (Reason: Sleep) escitalopram oxalate [Lexapro] 10 mg Tablet 20 mg PO DAILY buspirone 5 mg tablet 5 mg PO BID Label Comments: take 1 tablet by mouth twice a day for anxiety famotidine 20 mg tablet 20 mg PO DAILY Linzess 290 mcg capsule 290 mcg PO DAILY PRN PRN (Reason: CONSTIPATION) ondansetron 4 mg tablet,disintegrating 4 mg PO Q6H PRN (Reason: nausea and vomiting) Qty: 20 0RF Primary Care Provider: Milka Schneider Referrals: Milka Schneider MD [Primary Care Provider] - Activity Restrictions/Additional Instructions: Your TSH was elevated at 7.3 therefore follow-up with your family doctor to discuss medication adjustment. Otherwise your work-up revealed no clinically significant findings and continue your other medications as previously directed Disposition Disposition: Home, Self Care What to do if you have Problems For any increased pain, shortness of breath, bleeding, nausea or vomiting, chestpain, or any unexpected problems, contact your Primary Care Provider. Call [facility] ([phone]) or report to the closest Emergency Room. Call 911 if necessary. 12/11/22 0356 <Electronically signed by Rodolfo Gonzales DO> Cosigner Signature (if applicable): CC: Dr. Milka Schneider MD ~ Signed [facility] Work Phone: Discharge summary Author Dipak Kirkpatrick [facility] January 03, 2023 3:24am Note Date/Time January 03, 2023 2:27 am [facility] Medical Records Department [address] [place] [address] Emergency Department Summary 01/03/23 MR#: [id number] Acct: [id number] Name: HELEN ROLAND Rep #:[id number] : 1970 52 From: Dipak Kirkpatrick MD PCP: Dr. Milka Schneider MD Status:REG ER Location: ED HPI History of Present Illness Chief Complaint: Other, Pain/Inj Detail of Chief Complaint: Tremors Informant: patient Onset/Context/Timing Onset: Today Context: Sudden Onset Timing: Continuous Quality: Uncontrolled movement of upper and lower extremity Location: Upper and lower extremity Current Severity: States she cannot stop shaking unable to quantitate severity Worsened by: Nothing Relieved by: Nothing Associated Symptoms Associated Symptoms: None Narrative Narrative: SeenPatient is a 52-year-old woman by me earlier this month for tremors. I was informed at that time by her this is an issue this been going on for thepast 2 years. At that time she also had her levothyroxine doses altered/adjusted. She denies heat intolerance. She denies sweats, weight loss,diarrhea or palpitations. Patient specifically stated without questioning this is not anxiety. She states she cannot stop moving her arms and legs she denies perioral numbness. She denies paresthesias in her upper or lower extremity. She state her drove her to the emergency department. She states he leftbecause he had to get papers. And that he would be back because he knows she is here Patient stated she presented because her doctor is on vacation and she was not able to contact her. Prior similar symptoms: Yes Recent Illness/Hospitalization: Yes PFSH PFSH Medical History Allergies Anginal equivalent Anxiety Anxiety Back problem Breast pain, left Carpal tunnel syndrome Chronic neck pain Chronic thoracic back pain Dietary restriction Difficulty swallowing Fat necrosis of breast Former smoker Generalized headaches GERD (gastroesophageal reflux disease) History of echocardiogram History of staph infection History of steroid therapy History of stress test History of ulceration Hormone deficiency Hypertension Hypothyroidism Intertrigo Macromastia Marijuana use Mass of left breast Mass of right breast Methicillin resistant Staphylococcus epidermidis infection Migraine headache Other acute postprocedural pain Shoulder pain Thyroid disease Vision problem Wears glasses Wears partial dentures Home Medications losartan 25 mg tablet (Cozaar) 25 mg PO DAILY 01/27/21 [History Last Taken 10/06/22 07:30] zolpidem 5 mg tablet (Ambien) 5 mg PO QHS PRN Sleep 07/21/21 [History Last Taken Unknown] escitalopram oxalate 10 mg tablet (Lexapro) 20 mg PO DAILY 02/12/22 [History Last Taken Unknown] ondansetron 4 mg disintegrating tablet 4 mg PO Q6H PRN nausea and vomiting #20 tabs 11/03/22 [Rx Last Taken Unknown] buspirone 5 mg tablet 5 mg PO BID 12/11/22 [History Last Taken Unknown] famotidine 20 mg tablet 20 mg PO Q12H 12/11/22 [History Last Taken Unknown] linaclotide 290 mcg capsule (Linzess) 290 mcg PO DAILY PRN PRN CONSTIPATION 12/11/22 [History Last Taken Unknown] levothyroxine 75 mcg tablet 75 mcg PO QODAY 01/03/23 [History Last Taken Unknown] levothyroxine 88 mcg tablet 88 mcg PO QODAY 01/03/23 [History Last Taken Unknown] Allergy/AdvReac Type Severity Reaction Status Date / Time azithromycin Allergy Diarrhea Verified 01/03/23 02:15 [From Zithromax Z-Keo] sumatriptan [From Imitrex] Allergy TUNNEL Verified 01/03/23 02:15 VISION sumatriptan succinate Allergy TUNNEL Verified 01/03/23 02:15 [From Imitrex] VISION tramadol AdvReac nausea and Verified 01/03/23 02:15 vomiting Family History Other Anxiety Depression Epilepsy Hormone deficiency Hypertension Seizures Surgical History History of bilateral breast reduction surgery History of breast lump/mass excision History of carpal tunnel release History of esophagogastroduodenoscopy (EGD) S/P correction of deviated nasal septum S/P hysterectomy S/P laparoscopic cholecystectomy S/P left knee surgery S/P tubal ligation S/P wisdom tooth extraction Social History household members: significant other Smoking Status: Former smoker alcohol intake: never substance use type: does not use additional social history: Does Not Take Aspirin Does Not Take Ibuprofen ROS ROS ED Constitutional Constitutional ED: Denies chills, fever(s), subjective, sweats or weight loss Eyes Eyes: Denies blurry vision, change in vision or diplopia ENT ENT ED: Denies ear pain, rhinorrhea or sore throat Cardiovascular Cardiovascular: Denies chest pain, palpitations or racing heartbeat Respiratory/Chest Respiratory/Chest: Denies cough, dyspnea or dyspnea on exertion Gastrointestinal Gastrointestinal: Denies abdominal pain, diarrhea, nausea or vomiting Genitourinary Genitourinary ED: Denies dysuria, hematuria or urinary frequency Musculoskeletal Musculoskeletal: Denies arthralgias or myalgias Integumentary Denies rash Neurologic Neurologic: Denies headache(s), paresthesias or weakness Endocrine Endocrinology: Denies cold intolerance or heat intolerance Hematologic/Lymphatic Hematologic/Lymphatic: Reports systems reviewed and no addt'l complaints, exceptas documented EXAM Physical Exam Const Vital Signs: 01/03/23 02:16 01/03/23 02:16 Temperature 96.6 F L Temperature Source Temporal Pulse Rate 100 Respiratory Rate 18 Respiratory Pattern Normal Blood Pressure 189/100 H Blood Pressure Mean 129 Pulse Ox 99 Positive well nourished and well developed Constitutional Narrative: Patient has tremors noted upper and lower extremity. When she is asked to perform a task the tremor resolves. She had minimal to no eye contact during history and physical. General Appearance ED: well developed and NAD; Negative for cyanotic, diaphoretic or pallor HEENT Reports moist mucous membranes HEENT Narrative: Head is atraumatic normocephalic. Ears normal. Nares patent. No facial asymmetry. Eyes PERRL and EOMs intact bilaterally Eyes Narrative: There is no nystagmus. General Eye ED: Negative for pale conjunctiva or scleral icterus Neck no lymphadenopathy, supple and no JVD Chest Wall inspection of chest normal and palpation of chest normal Resp normal respiratory effort and clear to auscultation bilaterally Cardio regular rate, regular rhythm, S1 normal heart sound, S2 normal heart sound and no murmurs Back/Spine no CVA tenderness Extremity normal to inspection General Extremety ED: Negative for edema or tenderness General Extremity: Negative for edema Neuro oriented x3, CN's II-XII intact bilaterally and no sensory deficits noted Neuro Narrative: There is no dysmetria. Bicep, brachialis, triceps, patella and ankle reflex are2+ and symmetric. There is no clonus or Babinski sign noted. Sensorium / Orientation: alert Sensory Exam: sensory level loss detected Psych Psych Narrative: Affect is flat. There was no eye contact essentially during the history and physical. Skin no rashes or lesions noted, no wounds and skin turgor normal General Skin Exam: Negative for jaundice or pallor MDM MDM MDM Narrative Medical decision making narrative: Patient with tremors. She has no symptoms of hyperthyroidism however since her dose was recently changed will obtain a TSH. BMP was obtained to assess for hyponatremia, hypokalemia or hypocalcium Pallavi. Since there was little to no eye contact during history and physical tremors stopped/ceased when she was asked toperform an activity i.e. assess for dysmetria. And when I assessed her reflexesin the upper and lower extremity. Suspect there is a psychological basis for this tremor. As noted in the HPI this has been an issue for approximately 2 years. Since it is my medical opinion this has an affective etiology patient will receive 0.5 mg of Ativan IV push. History & Record Review Additional record(s) reviewed:: Prior outpatient record, Prior ED visit and Prior labs Lab Data Labs: Laboratory Results - last 24 hr 01/03/23 02:32 Sodium 139 Potassium 3.8 Chloride 106 Carbon Dioxide 26.0 Anion Gap 7 BUN 13 Creatinine 0.97 Estim Creat Clear Calc 69.99 Est GFR (MDRD) Af Amer 78 Est GFR (MDRD) Non-Af 64 BUN/Creatinine Ratio 13.3 Glucose 98 Calcium 9.4 TSH 1.09 Treatment and Re-Evaluation :: Patient was reassessed at 0319. Her tremor has resolved. She was informed thather laboratory studies are normal. Plan is discharged home to follow-up with her PCP Discharge Plan Triage Chief Complaint: Other, Pain/Inj ED Provider: Dipak Kirkpatrick Dx/Rx/DC Orders Clinical Impression: Coarse tremors, History of hypothyroidism Instructions: Functional Movement Disorders Prescriptions: No Action losartan [Cozaar] 25 mg tablet 25 mg PO DAILY zolpidem [Ambien] 5 mg Tablet 5 mg PO QHS PRN (Reason: Sleep) escitalopram oxalate [Lexapro] 10 mg Tablet 20 mg PO DAILY buspirone 5 mg tablet 5 mg PO BID Patient Comments: take 1 tablet by mouth twice a day for anxiety famotidine 20 mg tablet 20 mg PO Q12H Linzess 290 mcg capsule 290 mcg PO DAILY PRN PRN (Reason: CONSTIPATION) levothyroxine 75 mcg tablet 75 mcg PO QODAY Patient Comments: take 1 tablet by mouth once daily levothyroxine 88 mcg tablet 88 mcg PO QODAY Patient Comments: take 1 tablet by mouth once daily ondansetron 4 mg tablet,disintegrating 4 mg PO Q6H PRN (Reason: nausea and vomiting) Qty: 20 0RF Primary Care Provider: Milka Schneider Referrals: Milka Schneider MD [Primary Care Provider] - 5-7 Days (Suspect patient's tremors are anxiety induced.) Disposition Disposition: Home, Self Care What to do if you have Problems For any increased pain, shortness of breath, bleeding, nausea or vomiting, chestpain, or any unexpected problems, contact your Primary Care Provider. Call [facility] ([phone]) or report to the closest Emergency Room. Call 911 if necessary. 01/03/23 0324 <Electronically signed by Dipak Kirkpatrick MD> Cosigner Signature (if applicable): CC: Dr. Milka Schneider MD ~ Signed [facility] Work Phone: Discharge summary Author Jesus Manuel Boland [facility] January 13, 2023 1:55am Note Date/Time January 13, 2023 1:37 am [facility] Medical Records Department [address] [place] [address] Emergency Department Summary 01/13/23 MR#: [id number] Acct: [id number] Name: HELEN ROLAND Rep #:[id number] : 1970 52 From: Jesus Manuel Boland MD PCP: Dr. Milka Schneider MD Status:REG ER Location: ED HPI HPI - Psych History of Present Illness Chief Complaint: Anxiety Informant: patient Narrative Narrative: Patient presents at around 1:30 AM saying she has been having anxiety all day and she does not know why and wants to know what is triggering it. Requesting Ativan for this which is what she has had on occasion for when she has anxiety attacks. She states she has been worse in the past, however her is going to work tonight, they have a trip to a cabin tomorrow that she wants to goto and feel better. She points to her head and states it is up here. States she is been feeling like her heart is racing off and on but not necessarily sudden onset of racing that seems to be causing the anxiety from the way she is describing at all. No dyspnea or chest discomfort or other symptoms. No focal neurologic symptoms or headache or loss of consciousness. No recent illness. States she has been feeling some degree of anxiety all week, since I saw Dr. Jose and he put me on buspirone. [facility] Medical History Allergies Anginal equivalent Anxiety Anxiety Back problem Breast pain, left Carpal tunnel syndrome Chronic neck pain Chronic thoracic back pain Dietary restriction Difficulty swallowing Fat necrosis of breast Former smoker Generalized headaches GERD (gastroesophageal reflux disease) History of echocardiogram History of staph infection History of steroid therapy History of stress test History of ulceration Hormone deficiency Hypertension Hypothyroidism Intertrigo Macromastia Marijuana use Mass of left breast Mass of right breast Methicillin resistant Staphylococcus epidermidis infection Migraine headache Other acute postprocedural pain Shoulder pain Thyroid disease Vision problem Wears glasses Wears partial dentures Home Medications losartan 25 mg tablet (Cozaar) 25 mg PO DAILY 01/27/21 [History Last Taken 10/06/22 07:30] zolpidem 5 mg tablet (Ambien) 5 mg PO QHS PRN Sleep 07/21/21 [History Last Taken Unknown] escitalopram oxalate 10 mg tablet (Lexapro) 20 mg PO DAILY 02/12/22 [History Last Taken Unknown] ondansetron 4 mg disintegrating tablet 4 mg PO Q6H PRN nausea and vomiting #20 tabs 11/03/22 [Rx Last Taken Unknown] buspirone 5 mg tablet 5 mg PO BID 12/11/22 [History Last Taken Unknown] famotidine 20 mg tablet 20 mg PO Q12H 12/11/22 [History Last Taken Unknown] linaclotide 290 mcg capsule (Linzess) 290 mcg PO DAILY PRN PRN CONSTIPATION 12/11/22 [History Last Taken Unknown] levothyroxine 75 mcg tablet 75 mcg PO QODAY 01/03/23 [History Last Taken Unknown] levothyroxine 88 mcg tablet 88 mcg PO QODAY 01/03/23 [History Last Taken Unknown] gabapentin 300 mg/6 mL (6 mL) oral solution 300 mg (6 mL) PO BID nerve pain 30 days #360 mL 01/09/23 [Rx Last Taken Unknown] Allergy/AdvReac Type Severity Reaction Status Date / Time azithromycin Allergy Diarrhea Verified 01/09/23 14:04 [From Zithromax Z-Keo] sumatriptan [From Imitrex] Allergy TUNNEL Verified 01/09/23 14:04 VISION sumatriptan succinate Allergy TUNNEL Verified 01/09/23 14:04 [From Imitrex] VISION tramadol AdvReac nausea and Verified 01/09/23 14:04 vomiting Family History Other Anxiety Depression Epilepsy Hormone deficiency Hypertension Seizures Surgical History History of bilateral breast reduction surgery History of breast lump/mass excision History of carpal tunnel release History of esophagogastroduodenoscopy (EGD) S/P correction of deviated nasal septum S/P hysterectomy S/P laparoscopic cholecystectomy S/P left knee surgery S/P tubal ligation S/P wisdom tooth extraction Social History household members: significant other Smoking Status: Former smoker alcohol intake: never substance use type: does not use additional social history: Does Not Take Aspirin Does Not Take Ibuprofen ROS ROS ED Constitutional Constitutional ED: Denies chills or fever(s) Eyes Eyes: Denies change in vision or diplopia ENT ENT ED: Denies rhinorrhea or sore throat Cardiovascular Cardiovascular: Reports palpitations and racing heartbeat; Denies chest pain Respiratory/Chest Respiratory/Chest: Denies cough or dyspnea Gastrointestinal Gastrointestinal: Denies abdominal pain, diarrhea, nausea or vomiting Genitourinary Genitourinary ED: Denies dysuria or hematuria Musculoskeletal Musculoskeletal: Denies back pain or neck pain Integumentary Denies abscess or rash Neurologic Neurologic: Denies headache(s), paresthesias or weakness Psychiatric Psychiatric: Reports anxiety; Denies suicidal thoughts EXAM Physical Exam Const Vital Signs: 01/13/23 01:16 Temperature 98.0 F Temperature Source Oral Pulse Rate 89 Respiratory Rate 18 Blood Pressure 163/89 H Blood Pressure Mean 113 Pulse Ox 100 Oxygen Delivery Method Room Air Positive well nourished and well developed General Appearance ED: well developed and NAD HEENT Reports moist mucous membranes normocephalic and atraumatic Eyes PERRL and EOMs intact bilaterally Neck full ROM, no lymphadenopathy and supple Resp normal respiratory effort and clear to auscultation bilaterally Cardio regular rate, regular rhythm and no murmurs Rate: Negative for tachycardic GI non-tender and non-distended Auscultation: normoactive bowel sounds Palpation: soft Back/Spine no CVA tenderness General Back: other FROM Extremity normal to inspection General Extremety ED: Negative for edema, pulses abnormal or tenderness General Extremity: Negative for edema or pulses abnormal Neuro oriented x3, CN's II-XII intact bilaterally and no sensory deficits noted Sensorium / Orientation: awake and alert Motor Exam: strength 5/5 throughout Psych mental status grossly normal, thought process normal, cooperative, affect normal, speech normal, activity/motor behavior normal, denies hallucinations, denies homicidal ideation and denies suicidal ideation Skin no rashes or lesions noted and no wounds MDM MDM MDM Narrative Medical decision making narrative: Rhythm strip shows normal sinus rhythm, she is having no ectopy and she is feeling the palpitations now that she has a heart rate around 80. Given a dose of Ativan and allowed to go home and rest, follow-up advised. I do not think that there is any problem with the care she received as an outpatient, I think she simply is very anxious. Rhythm Strip Rhythm Strip: Sinus Rhythm Rate: 80 Ectopy: None Discharge Plan Triage Chief Complaint: Anxiety ED Provider: Jesus Manuel Boland Dx/Rx/DC Orders Clinical Impression: Anxiety Instructions: ED Anxiety Reaction Prescriptions: No Action losartan [Cozaar] 25 mg tablet 25 mg PO DAILY gabapentin 300 mg/6 mL (6 mL) solution 300 mg PO BID 30 Days Qty: 360 1RF zolpidem [Ambien] 5 mg Tablet 5 mg PO QHS PRN (Reason: Sleep) escitalopram oxalate [Lexapro] 10 mg Tablet 20 mg PO DAILY buspirone 5 mg tablet 5 mg PO BID Patient Comments: take 1 tablet by mouth twice a day for anxiety famotidine 20 mg tablet 20 mg PO Q12H Linzess 290 mcg capsule 290 mcg PO DAILY PRN PRN (Reason: CONSTIPATION) levothyroxine 75 mcg tablet 75 mcg PO QODAY Patient Comments: take 1 tablet by mouth once daily levothyroxine 88 mcg tablet 88 mcg PO QODAY Patient Comments: take 1 tablet by mouth once daily ondansetron 4 mg tablet,disintegrating 4 mg PO Q6H PRN (Reason: nausea and vomiting) Qty: 20 0RF Primary Care Provider: Milka Schneider Referrals: Milka Schneider MD [Primary Care Provider] - 1-2 Weeks Disposition Disposition: Home, Self Care What to do if you have Problems For any increased pain, shortness of breath, bleeding, nausea or vomiting, chestpain, or any unexpected problems, contact your Primary Care Provider. Call [facility] ([phone]) or report to the closest Emergency Room. Call 911 if necessary. 01/13/23 0155 <Electronically signed by Jesus Manuel Boland MD> Cosigner Signature (if applicable): CC: Dr. Milka Schneider MD ~ Signed [facility] Work Phone: Evaluation + Plan note No data available for this section [facility] Evaluation note* Diagnosis Onset Date Resolution Status Chronic neck pain chronic Chronic thoracic back pain c hronic Former smoker chronic Intertrigo chronic Macromastia chronic Recent weight loss chronic Shoulder pain chronic Acute post-operative pain [place] Anxiety acute Chronic neck pain chronic Chronic thoracic back pain c hronic Former smoker chronic Intertrigo chronic Macromastia chronic Recent weight loss chronic Shoulder pain chronic Acute post-operative pain [place] Chronic neck pain chronic Chronic thoracic back pain c hronic Former smoker chronic Intertrigo chronic Macromastia chronic Recent weight loss chronic Shoulder pain chronic Acute post-operative pain [place] Constipation acute Chronic neck pain chronic Chronic thoracic back pain c hronic Former smoker chronic Intertrigo chronic Macromastia chronic Recent weight loss chronic Shoulder pain chronic Acute post-operative pain [place] Anxiety acute Constipation acute Muscle spasm acute Chronic neck pain chronic Chronic thoracic back pain c hronic Former smoker chronic Intertrigo chronic Macromastia chronic Shoulder pain chronic Acute post-operative pain [place] Anxiety acute Muscle spasm acute Chronic neck pain chronic Chronic thoracic back pain c hronic Former smoker chronic Intertrigo chronic Macromastia chronic Recent weight loss chronic Shoulder pain chronic Acute post-operative pain [place] Delayed surgical wound healing acute Chronic neck pain chronic Chronic thoracic back pain c hronic Former smoker chronic History of bilateral breast reduction surgery chronic Intertrigo chronic Macromastia chronic Shoulder pain chronic Acute post-operative pain [place] Anxiety acute Delayed surgical wound healing acute Muscle spasm acute Chronic neck pain chronic Chronic thoracic back pain c hronic Former smoker chronic Intertrigo chronic Macromastia chronic Recent weight loss chronic Shoulder pain chronic [facility] Work Phone: Evaluation note* Diagnosis Onset Date Resolution Status Chronic neck pain chronic Chronic thoracic back pain c hronic Former smoker chronic Intertrigo chronic Macromastia chronic Recent weight loss chronic Shoulder pain chronic Acute post-operative pain [place] Anxiety acute Chronic neck pain chronic Chronic thoracic back pain c hronic Former smoker chronic Intertrigo chronic Macromastia chronic Recent weight loss chronic Shoulder pain chronic Acute post-operative pain [place] Chronic neck pain chronic Chronic thoracic back pain c hronic Former smoker chronic Intertrigo chronic Macromastia chronic Recent weight loss chronic Shoulder pain chronic Acute post-operative pain [place] Constipation acute Chronic neck pain chronic Chronic thoracic back pain c hronic Former smoker chronic Intertrigo chronic Macromastia chronic Recent weight loss chronic Shoulder pain chronic Acute post-operative pain [place] Anxiety acute Constipation acute Muscle spasm acute Chronic neck pain chronic Chronic thoracic back pain c hronic Former smoker chronic Intertrigo chronic Macromastia chronic Shoulder pain chronic Acute post-operative pain [place] Anxiety acute Muscle spasm acute Chronic neck pain chronic Chronic thoracic back pain c hronic Former smoker chronic Intertrigo chronic Macromastia chronic Recent weight loss chronic Shoulder pain chronic Acute post-operative pain [place] Delayed surgical wound healing acute Chronic neck pain chronic Chronic thoracic back pain c hronic Former smoker chronic History of bilateral breast reduction surgery chronic Intertrigo chronic Macromastia chronic Shoulder pain chronic Acute post-operative pain [place] Anxiety acute Delayed surgical wound healing acute Muscle spasm acute Chronic neck pain chronic Chronic thoracic back pain c hronic Former smoker chronic Intertrigo chronic Macromastia chronic Recent weight loss chronic Shoulder pain chronic Chronic neck pain chronic Chronic thoracic back pain c hronic Former smoker chronic Intertrigo chronic Macromastia chronic Recent weight loss chronic Shoulder pain chronic Acute post-operative pain [place] Delayed surgical wound healing acute Nerve pain acute Chronic neck pain chronic Chronic thoracic back pain c hronic Former smoker chronic Intertrigo chronic Macromastia chronic Recent weight loss chronic Shoulder pain chronic Delayed surgical wound healing acute Nerve pain acute Chronic neck pain chronic Chronic thoracic back pain c hronic Intertrigo chronic Macromastia chronic Shoulder pain chronic [facility] Work Phone: Evaluation note* Diagnosis Onset Date Resolution Status Chronic neck pain chronic Chronic thoracic back pain c hronic Former smoker chronic Intertrigo chronic Macromastia chronic Recent weight loss chronic Shoulder pain chronic Acute post-operative pain [place] Anxiety acute Chronic neck pain chronic Chronic thoracic back pain c hronic Former smoker chronic Intertrigo chronic Macromastia chronic Recent weight loss chronic Shoulder pain chronic Acute post-operative pain [place] Chronic neck pain chronic Chronic thoracic back pain c hronic Former smoker chronic Intertrigo chronic Macromastia chronic Recent weight loss chronic Shoulder pain chronic Acute post-operative pain [place] Constipation acute Chronic neck pain chronic Chronic thoracic back pain c hronic Former smoker chronic Intertrigo chronic Macromastia chronic Recent weight loss chronic Shoulder pain chronic Acute post-operative pain [place] Anxiety acute Constipation acute Muscle spasm acute Chronic neck pain chronic Chronic thoracic back pain c hronic Former smoker chronic Intertrigo chronic Macromastia chronic Shoulder pain chronic Acute post-operative pain [place] Anxiety acute Muscle spasm acute Chronic neck pain chronic Chronic thoracic back pain c hronic Former smoker chronic Intertrigo chronic Macromastia chronic Recent weight loss chronic Shoulder pain chronic Acute post-operative pain [place] Delayed surgical wound healing acute Chronic neck pain chronic Chronic thoracic back pain c hronic Former smoker chronic History of bilateral breast reduction surgery chronic Intertrigo chronic Macromastia chronic Shoulder pain chronic Acute post-operative pain [place] Anxiety acute Delayed surgical wound healing acute Muscle spasm acute Chronic neck pain chronic Chronic thoracic back pain c hronic Former smoker chronic Intertrigo chronic Macromastia chronic Recent weight loss chronic Shoulder pain chronic Chronic neck pain chronic Chronic thoracic back pain c hronic Former smoker chronic Intertrigo chronic Macromastia chronic Recent weight loss chronic Shoulder pain chronic Acute post-operative pain [place] Delayed surgical wound healing acute Nerve pain acute Chronic neck pain chronic Chronic thoracic back pain c hronic Former smoker chronic Intertrigo chronic Macromastia chronic Recent weight loss chronic Shoulder pain chronic Delayed surgical wound healing acute Nerve pain acute Chronic neck pain chronic Chronic thoracic back pain c hronic Intertrigo chronic Macromastia chronic Shoulder pain chronic Anxiety acute Delayed surgical wound healing acute Muscle spasm acute Chronic neck pain chronic Chronic thoracic back pain c hronic Former smoker chronic Intertrigo chronic Macromastia chronic Recent weight loss chronic Shoulder pain chronic [facility] Work Phone: Evaluation note* Diagnosis Onset Date Resolution Status Delayed surgical wound healing acute Muscle spasm acute Nerve pain acute Chronic neck pain chronic Chronic thoracic back pain c hronic Former smoker chronic Intertrigo chronic Macromastia chronic Recent weight loss chronic Shoulder pain chronic Delayed surgical wound healing acute Muscle spasm acute Nerve pain acute Chronic neck pain chronic Chronic thoracic back pain c hronic Former smoker chronic Intertrigo chronic Macromastia chronic Recent weight loss chronic Shoulder pain chronic Delayed surgical wound healing acute Muscle spasm acute Nerve pain acute Chronic neck pain chronic Chronic thoracic back pain c hronic Former smoker chronic Intertrigo chronic Macromastia chronic Recent weight loss chronic Shoulder pain chronic Delayed surgical wound healing acute Muscle spasm acute Nerve pain acute Chronic neck pain chronic Chronic thoracic back pain c hronic Former smoker chronic Intertrigo chronic Macromastia chronic Recent weight loss chronic Shoulder pain chronic Breast pain, left acute Delayed surgical wound healing acute Mass of left breast acute Chronic neck pain chronic Former smoker chronic [facility] Work Phone: Evaluation note* Diagnosis Onset Date Resolution Status Delayed surgical wound healing acute Muscle spasm acute Nerve pain acute Chronic neck pain chronic Chronic thoracic back pain c hronic Former smoker chronic Intertrigo chronic Macromastia chronic Recent weight loss chronic Shoulder pain chronic Delayed surgical wound healing acute Muscle spasm acute Nerve pain acute Chronic neck pain chronic Chronic thoracic back pain c hronic Former smoker chronic Intertrigo chronic Macromastia chronic Recent weight loss chronic Shoulder pain chronic Delayed surgical wound healing acute Muscle spasm acute Nerve pain acute Chronic neck pain chronic Chronic thoracic back pain c hronic Former smoker chronic Intertrigo chronic Macromastia chronic Recent weight loss chronic Shoulder pain chronic Breast pain, left acute Delayed surgical wound healing acute Mass of left breast acute Chronic neck pain chronic Former smoker chronic [facility] Work Phone: Evaluation note* Diagnosis Onset Date Resolution Status Delayed surgical wound healing acute Muscle spasm acute Nerve pain acute Chronic neck pain chronic Chronic thoracic back pain c hronic Former smoker chronic Intertrigo chronic Macromastia chronic Recent weight loss chronic Shoulder pain chronic Delayed surgical wound healing acute Muscle spasm acute Nerve pain acute Chronic neck pain chronic Chronic thoracic back pain c hronic Former smoker chronic Intertrigo chronic Macromastia chronic Recent weight loss chronic Shoulder pain chronic Breast pain, left acute Delayed surgical wound healing acute Mass of left breast acute Chronic neck pain chronic Former smoker chronic [facility] Work Phone: Evaluation note* Diagnosis Onset Date Resolution Status Breast pain, left acute Breast pain, right acute Mass of left breast acute Mass of right breast acute Former smoker chronic History of bilateral breast reduction surgery chronic [facility] Work Phone: Evaluation note* Diagnosis Skin infection- Primary Unspecified local infection of skin and subcutaneous [facility] Diagnosis Onset Date Resolution Status Breast pain, left chronic 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 History of bilateral breast reduction surgery chronic History of staph infection c hronic Mass of left breast chronic Mass of right breast resolve d [facility] Work Phone: Evaluation note* Diagnosis Onset Date Resolution Status Breast pain, left chronic 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 History of bilateral breast reduction surgery chronic History of staph infection c hronic Mass of left breast chronic Mass of right breast resolve d Breast pain, right acute Breast pain, left chronic 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 History of bilateral breast reduction surgery chronic 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 Mass of right breast resolve d [facility] Work Phone: Evaluation note* Diagnosis Onset Date Resolution Status Breast pain, right acute Breast pain, left chronic 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 History of bilateral breast reduction surgery chronic 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 Mass of right breast resolve d Breast pain, right acute Breast pain, left chronic 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 History of bilateral breast reduction surgery chronic 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 Mass of right breast resolve d Breast pain, right acute Breast pain, left chronic 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 History of bilateral breast reduction surgery chronic 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 Mass of right breast resolve d [facility] Work Phone: Evaluation note* Diagnosis Acute non-recurrent sinusitis, unspecified location- [facility] Diagnosis Onset Date Resolution Status Breast pain, right acute Breast pain, left chronic 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 History of bilateral breast reduction surgery chronic 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 Mass of right breast resolve d Breast pain, right acute Breast pain, left chronic 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 History of bilateral breast reduction surgery chronic 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 Mass of right breast resolve d Breast pain, right acute Breast pain, left chronic 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 History of bilateral breast reduction surgery chronic 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 Mass of right breast resolve d Breast pain, right acute Breast pain, left chronic 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 History of bilateral breast reduction surgery chronic 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 Mass of right breast resolve d [facility] Work Phone: Evaluation note* Diagnosis Onset Date Resolution Status Breast pain, right acute Breast pain, left chronic 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 History of bilateral breast reduction surgery chronic 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 Mass of right breast resolve d Breast pain, right acute Breast pain, left chronic 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 History of bilateral breast reduction surgery chronic 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 Mass of right breast resolve d Breast pain, right acute Breast pain, left chronic 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 History of bilateral breast reduction surgery chronic 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 Mass of right breast resolve d Breast pain, right acute Breast pain, left chronic 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 History of bilateral breast reduction surgery chronic 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 Mass of right breast resolve d History of breast lump/mass excision acute Breast pain, left chronic 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 History of bilateral breast reduction surgery 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 [facility] Work Phone: Evaluation note* Diagnosis Finger injury, left, initial encounter- Primary documented in this encounter [facility] note* Diagnosis Neck pain- Primary Cervicalgia documented in this encounter [facility] note* Diagnosis Finger injury, left, initial encounter documented in this encounter [facility] note* Diagnosis Neck pain Cervicalgia documented in this encounter [facility] note* Diagnosis Sore throat- Primary Acute pharyngitis Respiratory infection Other diseases of respiratory system, not elsewhere classified documented in this encounter [facility] note* Diagnosis Acute right ankle pain- Primary documented in this encounter [facility] note* Diagnosis Rhinosinusitis- Primary Unspecified sinusitis (chronic) documented in this encounter [facility] Discharge instructions Additional Instructions Thank you for trusting us with your care today! Please take Tylenol (2 pills, 650 mg), ibuprofen (2 pills, 400 mg) every 6 hours as needed for pain and fever control. Please return to the emergency department if your symptoms change or worsen. Specifically if you develop gait instability, focal numbness, weakness, loss of sensation, facial drooping, slurred speech or difficulty talking. Please follow with your primary care physician for further outpatient evaluation and management.[facility] Work Phone: Hospital Discharge instructions Additional Instructions Your TSH was elevated at 7.3 therefore follow-up with your family doctor to discuss medication adjustment. Otherwise your work-up revealed no clinically significant findings and continue your other medications as [facility] directed[facility] Reason for referral (narrative)* Diagnostic Procedure Only (Urgent) - Closed Specialty Diagnoses / Procedures Referred By Chris t Referred To Contact XR IMAGING Diagnoses Finger injury, left, initial encounter Procedures XR DIGIT GENERAL 3V FRONTAL/LAT/OBL LEFT RADEX FINGR MINIMUM 2 VIEWS Magnolia Koenig PA-C [address] [place] [address] [place] [address] Referral ID Status Reason Start Date Expiration Date V isits Requested Visits Authorized [id number] Closed Auto-Generate d Referral 07/31/2023 08/29/2024 1 1 [facility] for referral (narrative)* Diagnostic Procedure Only (Urgent) - Closed Specialty Diagnoses / Procedures Referred By Contac t Referred To Contact XR IMAGING Diagnoses Neck pain Procedures XR CERV OTHER 4V AP/LAT/OBL RADEX SPINE CERVICAL 4 OR 5 VIEWS Magnolia Koenig PA-C [address] [place] [address] [place] [address] Referral ID Status Reason Start Date Expiration Date V isits Requested Visits Authorized [id number] Closed Auto-Generate d Referral 08/20/2023 09/18/2024 1 1 [facility] for referral (narrative)* Diagnostic Procedure Only (Urgent) - Closed Specialty Diagnoses / Procedures Referred By Contac t Referred To Contact XR IMAGING Diagnoses Finger injury, left, initial encounter Procedures XR DIGIT GENERAL 3V FRONTAL/LAT/OBL LEFT RADEX FINGR MINIMUM 2 VIEWS Magnolia Koenig PA-C [address] [place] [address] [place] [address] Referral ID Status Reason Start Date Expiration Date V isits Requested Visits Authorized [id number] Closed Auto-Generate d Referral 07/31/2023 08/29/2024 1 1 [facility] for referral (narrative)* Diagnostic Procedure Only (Urgent) - Closed Specialty Diagnoses / Procedures Referred By Contac t Referred To Contact XR IMAGING Diagnoses Neck pain Procedures XR CERV OTHER 4V AP/LAT/OBL RADEX SPINE CERVICAL 4 OR 5 VIEWS Magnolia Koenig PA-C [address] [place] [address] [place] [address] Referral ID Status Reason Start Date Expiration Date V isits Requested Visits Authorized [id number] Closed Auto-Generate d Referral 08/20/2023 09/18/2024 1 1 [facility] for referral (narrative)* Diagnostic Procedure Only (Urgent) - Closed Specialty Diagnoses / Procedures Referred By Contac t Referred To Contact XR IMAGING Diagnoses Acute right ankle pain Procedures XR ANKLE GENERAL 3V AP/LAT/OBL RIGHT RADEX ANKLE COMPLETE MINIMUM 3 VIEWS Araceli Burns APRN.CNP [address] [place] [address] [place] [address] Referral ID Status Reason Start Date Expiration Date V isits Requested Visits Authorized [id number] Closed Auto-Generate d Referral 04/07/2024 05/07/2025 1 1 [facility] for visit Narrative* Diagnostic Procedure Only (Urgent) - Closed Specialty Diagnoses / Procedures Referred By Contac t Referred To Contact XR IMAGING Diagnoses Finger injury, left, initial encounter Procedures XR DIGIT GENERAL 3V FRONTAL/LAT/OBL LEFT RADEX FINGR MINIMUM 2 VIEWS Magnolia Koenig PA-C [address] [place] [address] [place] [address] Referral ID Status Reason Start Date Expiration Date V isits Requested Visits Authorized [id number] Closed Auto-Generate d Referral 07/31/2023 08/29/2024 1 1 [facility] for visit Narrative* Diagnostic Procedure Only (Urgent) - Closed Specialty Diagnoses / Procedures Referred By Contac t Referred To Contact XR IMAGING Diagnoses Neck pain Procedures XR CERV OTHER 4V AP/LAT/OBL RADEX SPINE CERVICAL 4 OR 5 VIEWS Magnolia Koenig PA-C [address] [place] [address] [place] [address] Referral ID Status Reason Start Date Expiration Date V isits Requested Visits Authorized [id number] Closed Auto-Generate d Referral 08/20/2023 09/18/2024 1 1 [facility] for visit Narrative* Diagnostic Procedure Only (Urgent) - Closed Specialty Diagnoses / Procedures Referred By Contac t Referred To Contact XR IMAGING Diagnoses Acute right ankle pain Procedures XR ANKLE GENERAL 3V AP/LAT/OBL RIGHT RADEX ANKLE COMPLETE MINIMUM 3 VIEWS Araceli Burns, PRIMARY CARE COORDINATOR.SURGICAL DRESSING MAKER [address] [facility] [place] [address] [place] [address] Referral ID Status Reason Start Date Expiration Date V isits Requested Visits Authorized [id number] Closed Auto-Generate d Referral 04/07/2024 05/07/2025 1 1 [facility] Summary Purpose Family History No Family History Records Found Relationship Condition Age at Onset Recorded Date/T jeannie Not Specified Epilepsy Unknown Anxiety Unknown Depression Unknown Estradiol deficiency Unknown Seizure Unknown Hypertension Unknown Advance Directives No Advanced Directives Records Found Advance Directive Response Recorded Date/ Time Living Will No August 03 5:16pm Power of Chemical Technician No August 03, 2021 5:16pm Advance Directive Response Recorded Date/ Time Living Will No October 03, 2021 11:43pm Power of Chemical Technician No October 03 11:43pm Advance Directive Response Recorded Date/ Time Living Will No February 12 4:36am Power of Chemical Technician No February 12 4:36am Advance Directive Response Recorded Date/ Time Living Will No March 02, 2022 1:19am Power of Chemical Technician No February 1:19am Advance Directive Response Recorded Date/ Time Living Will No March 02, 2022 12:19am Power of Chemical Technician No February 12:19am Advance Directive Response Recorded Date/ Time Living Will No September 13, 2022 4:18am Power of Chemical Technician No September 13 4:18am Advance Directive Response Recorded Date/ Time Living Will No September 28, 2022 2:49pm Power of Chemical Technician No September 28 2:49pm Advance Directive Response Recorded Date/ Time Living Will No October 27, 2022 3 :00pm Power of Chemical Technician No October 27, 2022 3:00pm Advance Directive Response Recorded Date/ Time Living Will No December 11, 2022 2:44am Power of Chemical Technician No December 11 2:44am Advance Directive Response Recorded Date/ Time Living Will No December 17, 2022 1 0:18pm Power of Chemical Technician No December 17, 2022 10:18pm Advance Directive Response Recorded Date/ Time Living Will No January 03, 2023 2:16am Power of Chemical Technician No January 03 3 2:16am Advance Directive Response Recorded Date/ Time Living Will No February 03 3 4:11pm Power of Chemical Technician No February 03 023 4:11pm Advance Directive Response Recorded Date/ Time Living Will No January 13, 2023 1:18am Power of Chemical Technician No January 13 3 1:18am Chief Complaint and Reason for Visit Chief Complaint FLUCTUATION OF BP PREOP BILATERAL BREAST REDUCTION BILATERAL BREAST REDUCTION POST OP CK POST OP CK POST OP CK POST OP CK POST OP CK POST OP CK POST OP CHECK Reason for Visit Chronic neck pain Chronic thoracic back pain Former smoker [employer] Recent weight loss Shoulder pain Acute post-operative pain Anxiety Chronic neck pain Chronic thoracic back pain Former smoker [employer] Recent weight loss Shoulder pain Acute post-operative pain Chronic neck pain Chronic thoracic back pain Former smoker [employer] Recent weight loss Shoulder pain Acute post-operative pain Constipation Chronic neck pain Chronic thoracic back pain Former smoker [employer] Recent weight loss Shoulder pain Acute post-operative pain Anxiety Constipation Muscle spasm Chronic neck pain Chronic thoracic back pain Former smoker [employer] Shoulder pain Acute post-operative pain Anxiety Muscle spasm Chronic neck pain Chronic thoracic back pain Former smoker [employer] Recent weight loss Shoulder pain Acute post-operative pain Delayed surgical wound healing Chronic neck pain Chronic thoracic back pain Former smoker History of bilateral breast reduction surgery [employer] Shoulder pain Acute post-operative pain Anxiety Delayed surgical wound healing Muscle spasm Chronic neck pain Chronic thoracic back pain Former smoker [employer]rom[employer] Recent weight loss Shoulder pain Chief Complaint PREOP BILATERAL BREAST REDUCTION BILATERAL BREAST REDUCTION POST OP CK POST OP CK POST OP CK POST OP CK POST OP CK POST OP CK POST OP CHECK POST OP CK POST OP CK lower leg Reason for Visit Chronic neck pain Chronic thoracic back pain Former smoker [employer] Recent weight loss Shoulder pain Acute post-operative pain Anxiety Chronic neck pain Chronic thoracic back pain Former smoker [employer] Recent weight loss Shoulder pain Acute post-operative pain Chronic neck pain Chronic thoracic back pain Former smoker [employer] Recent weight loss Shoulder pain Acute post-operative pain Constipation Chronic neck pain Chronic thoracic back pain Former smoker [employer]tr[employer]rom[employer] Recent weight loss Shoulder pain Acute post-operative pain Anxiety Constipation Muscle spasm Chronic neck pain Chronic thoracic back pain Former smoker [employer] Shoulder pain Acute post-operative pain Anxiety Muscle spasm Chronic neck pain Chronic thoracic back pain Former smoker [employer]rom[employer] Recent weight loss Shoulder pain Acute post-operative pain Delayed surgical wound healing Chronic neck pain Chronic thoracic back pain Former smoker History of bilateral breast reduction surgery [employer] Shoulder pain Acute post-operative pain Anxiety Delayed surgical wound healing Muscle spasm Chronic neck pain Chronic thoracic back pain Former smoker [employer] Recent weight loss Shoulder pain Chronic neck pain Chronic thoracic back pain Former smoker [employer]rom[employer] Recent weight loss Shoulder pain Acute post-operative pain Delayed surgical wound healing Nerve pain Chronic neck pain Chronic thoracic back pain Former smoker [employer] Recent weight loss Shoulder pain Delayed surgical wound healing Nerve pain Chronic neck pain Chronic thoracic back pain Inter[employer]rom[employer] Shoulder pain Chief Complaint PREOP BILATERAL BREAST REDUCTION BILATERAL BREAST REDUCTION POST OP CK POST OP CK POST OP CK POST OP CK POST OP CK POST OP CK POST OP CHECK POST OP CK POST OP CK lower leg Pain in right lower leg POST OP CK Reason for Visit Chronic neck pain Chronic thoracic back pain Former smoker [employer] Recent weight loss Shoulder pain Acute post-operative pain Anxiety Chronic neck pain Chronic thoracic back pain Former smoker [employer]rom[employer] Recent weight loss Shoulder pain Acute post-operative pain Chronic neck pain Chronic thoracic back pain Former smoker [employer] Recent weight loss Shoulder pain Acute post-operative pain Constipation Chronic neck pain Chronic thoracic back pain Former smoker [employer]rom[employer] Recent weight loss Shoulder pain Acute post-operative pain Anxiety Constipation Muscle spasm Chronic neck pain Chronic thoracic back pain Former smoker [employer] Shoulder pain Acute post-operative pain Anxiety Muscle spasm Chronic neck pain Chronic thoracic back pain Former smoker [employer] Recent weight loss Shoulder pain Acute post-operative pain Delayed surgical wound healing Chronic neck pain Chronic thoracic back pain Former smoker History of bilateral breast reduction surgery [employer] Shoulder pain Acute post-operative pain Anxiety Delayed surgical wound healing Muscle spasm Chronic neck pain Chronic thoracic back pain Former smoker [employer] Recent weight loss Shoulder pain Chronic neck pain Chronic thoracic back pain Former smoker [employer]rom[employer] Recent weight loss Shoulder pain Acute post-operative pain Delayed surgical wound healing Nerve pain Chronic neck pain Chronic thoracic back pain Former smoker [employer]rom[employer] Recent weight loss Shoulder pain Delayed surgical wound healing Nerve pain Chronic neck pain Chronic thoracic back pain [employer]rom[employer] Shoulder pain Anxiety Delayed surgical wound healing Muscle spasm Chronic neck pain Chronic thoracic back pain Former smoker [employer] Recent weight loss Shoulder pain Chief Complaint 1 W FU POST OP CK 1 WEEK FU FU Breast POST OP CK anxiety Reason for Visit Delayed surgical wou nd healing Muscle spasm Nerve pain Chronic neck pain Chronic thoracic back pain Former smoker [employer] Recent weight loss Shoulder pain Delayed surgical wound healing Muscle spasm Nerve pain Chronic neck pain Chronic thoracic back pain Former smoker [employer]rom[employer] Recent weight loss Shoulder pain Delayed surgical wound healing Muscle spasm Nerve pain Chronic neck pain Chronic thoracic back pain Former smoker [employer]rom[employer] Recent weight loss Shoulder pain Delayed surgical wound healing Muscle spasm Nerve pain Chronic neck pain Chronic thoracic back pain Former smoker [employer] Recent weight loss Shoulder pain Breast pain, left Delayed surgical wound healing Mass of left breast Chronic neck pain Former smoker Chief Complaint POST OP CK 1 WEEK FU FU Breast POST OP CK anxiety abd Reason for Visit Delayed surgical wou nd healing Muscle spasm Nerve pain Chronic neck pain Chronic thoracic back pain Former smoker [employer] Recent weight loss Shoulder pain Delayed surgical wound healing Muscle spasm Nerve pain Chronic neck pain Chronic thoracic back pain Former smoker [employer] Recent weight loss Shoulder pain Delayed surgical wound healing Muscle spasm Nerve pain Chronic neck pain Chronic thoracic back pain Former smoker [employer] Recent weight loss Shoulder pain Breast pain, left Delayed surgical wound healing Mass of left breast Chronic neck pain Former smoker Chief Complaint 1 WEEK FU FU Breast POST OP CK anxiety abd LEFT ARM PAIN SWELLING Reason for Visit Delayed surgical wou nd healing Muscle spasm Nerve pain Chronic neck pain Chronic thoracic back pain Former smoker [employer] Recent weight loss Shoulder pain Delayed surgical wound healing Muscle spasm Nerve pain Chronic neck pain Chronic thoracic back pain Former smoker [employer] Recent weight loss Shoulder pain Breast pain, left Delayed surgical wound healing Mass of left breast Chronic neck pain Former smoker Chief Complaint anxiety abd LEFT ARM PAIN SWELLING 3 M FU MASS IN BREAST AFTER BREAST REDUCTION Reason for Visit Breast pain, left Breast pain, right Mass of left breast Mass of right breast Former smoker History of bilateral breast reduction surgery Chief Complaint MASS IN BREAST AFTER BREAST REDUCTION Follow Up Breast Reason for Visit Breast pain, left Fat necrosis of breast Former smoker History of bilateral breast reduction surgery History of staph infection Mass of left breast Mass of right breast Chief Complaint Follow Up Breast BILAT BREAST MASSES Reason for Visit Breast pain, left Fat necrosis of breast Former smoker History of bilateral breast reduction surgery History of staph infection Mass of left breast Mass of right breast Chief Complaint Follow Up Breast BILAT BREAST MASSES anxiety Reason for Visit Breast pain, left Fat necrosis of breast Former smoker History of bilateral breast reduction surgery History of staph infection Mass of left breast Mass of right breast Chief Complaint Follow Up Breast BILAT BREAST MASSES anxiety EXCISION MASS X2 LT BREAST EXCISION MASS X2 LT BREAST Reason for Visit Breast pain, left Fat necrosis of breast Former smoker History of bilateral breast reduction surgery History of staph infection Mass of left breast Mass of right breast Breast pain, right Breast pain, left Fat necrosis of breast Former smoker History of bilateral breast reduction surgery Mass of left breast Methicillin resistant Staphylococcus epidermidis infection Mass of right breast Chief Complaint BILAT BREAST MASSES anxiety PREOP EXCISION MASS X2 LT BREAST EXCISION MASS X2 LT BREAST Post Op Post Op dizziness Reason for Visit Breast pain, right Breast pain, left Fat necrosis of breast Former smoker History of bilateral breast reduction surgery Mass of left breast Methicillin resistant Staphylococcus epidermidis infection Mass of right breast Breast pain, right Breast pain, left Fat necrosis of breast Former smoker History of bilateral breast reduction surgery Mass of left breast Methicillin resistant Staphylococcus epidermidis infection Mass of right breast Breast pain, right Breast pain, left Fat necrosis of breast Former smoker History of bilateral breast reduction surgery Mass of left breast Methicillin resistant Staphylococcus epidermidis infection Mass of right breast Chief Complaint anxiety PREOP EXCISION MASS X2 LT BREAST EXCISION MASS X2 LT BREAST Post Op Post Op dizziness Post Op ANXIETY Reason for Visit Breast pain, right Breast pain, left Fat necrosis of breast Former smoker History of bilateral breast reduction surgery Mass of left breast Methicillin resistant Staphylococcus epidermidis infection Mass of right breast Breast pain, right Breast pain, left Fat necrosis of breast Former smoker History of bilateral breast reduction surgery Mass of left breast Methicillin resistant Staphylococcus epidermidis infection Mass of right breast Breast pain, right Breast pain, left Fat necrosis of breast Former smoker History of bilateral breast reduction surgery Mass of left breast Methicillin resistant Staphylococcus epidermidis infection Mass of right breast Breast pain, right Breast pain, left Fat necrosis of breast Former smoker History of bilateral breast reduction surgery Mass of left breast Methicillin resistant Staphylococcus epidermidis infection Mass of right breast Chief Complaint anxiety PREOP EXCISION MASS X2 LT BREAST EXCISION MASS X2 LT BREAST Post Op Post Op dizziness Post Op ANXIETY THYROID PROBLEMS Reason for Visit Breast pain, right Breast pain, left Fat necrosis of breast Former smoker History of bilateral breast reduction surgery Mass of left breast Methicillin resistant Staphylococcus epidermidis infection Mass of right breast Breast pain, right Breast pain, left Fat necrosis of breast Former smoker History of bilateral breast reduction surgery Mass of left breast Methicillin resistant Staphylococcus epidermidis infection Mass of right breast Breast pain, right Breast pain, left Fat necrosis of breast Former smoker History of bilateral breast reduction surgery Mass of left breast Methicillin resistant Staphylococcus epidermidis infection Mass of right breast Breast pain, right Breast pain, left Fat necrosis of breast Former smoker History of bilateral breast reduction surgery Mass of left breast Methicillin resistant Staphylococcus epidermidis infection Mass of right breast Chief Complaint anxiety PREOP EXCISION MASS X2 LT BREAST EXCISION MASS X2 LT BREAST Post Op Post Op dizziness Post Op ANXIETY THYROID PROBLEMS FIBROID TREMORS Reason for Visit Breast pain, right Breast pain, left Fat necrosis of breast Former smoker History of bilateral breast reduction surgery Mass of left breast Methicillin resistant Staphylococcus epidermidis infection Mass of right breast Breast pain, right Breast pain, left Fat necrosis of breast Former smoker History of bilateral breast reduction surgery Mass of left breast Methicillin resistant Staphylococcus epidermidis infection Mass of right breast Breast pain, right Breast pain, left Fat necrosis of breast Former smoker History of bilateral breast reduction surgery Mass of left breast Methicillin resistant Staphylococcus epidermidis infection Mass of right breast Breast pain, right Breast pain, left Fat necrosis of breast Former smoker History of bilateral breast reduction surgery Mass of left breast Methicillin resistant Staphylococcus epidermidis infection Mass of right breast Chief Complaint EXCISION MASS X2 LT BREAST EXCISION MASS X2 LT BREAST Post Op Post Op dizziness Post Op ANXIETY THYROID PROBLEMS FIBROID TREMORS left breast pain wanting narcotics panic attack AXIETY AND TREMOR Reason for Visit Breast pain, right Breast pain, left Fat necrosis of breast Former smoker History of bilateral breast reduction surgery Mass of left breast Methicillin resistant Staphylococcus epidermidis infection Mass of right breast Breast pain, right Breast pain, left Fat necrosis of breast Former smoker History of bilateral breast reduction surgery Mass of left breast Methicillin resistant Staphylococcus epidermidis infection Mass of right breast Breast pain, right Breast pain, left Fat necrosis of breast Former smoker History of bilateral breast reduction surgery Mass of left breast Methicillin resistant Staphylococcus epidermidis infection Mass of right breast Breast pain, right Breast pain, left Fat necrosis of breast Former smoker History of bilateral breast reduction surgery Mass of left breast Methicillin resistant Staphylococcus epidermidis infection Mass of right breast History of breast lump/mass excision Breast pain, left Fat necrosis of breast Former smoker History of bilateral breast reduction surgery Methicillin resistant Staphylococcus epidermidis infection Chief Complaint PREOP EXCISION MASS X2 LT BREAST EXCISION MASS X2 LT BREAST Post Op Post Op dizziness Post Op ANXIETY THYROID PROBLEMS FIBROID TREMORS left breast pain wanting narcotics panic attack Reason for Visit Breast pain, right Breast pain, left Fat necrosis of breast Former smoker History of bilateral breast reduction surgery Mass of left breast Methicillin resistant Staphylococcus epidermidis infection Mass of right breast Breast pain, right Breast pain, left Fat necrosis of breast Former smoker History of bilateral breast reduction surgery Mass of left breast Methicillin resistant Staphylococcus epidermidis infection Mass of right breast Breast pain, right Breast pain, left Fat necrosis of breast Former smoker History of bilateral breast reduction surgery Mass of left breast Methicillin resistant Staphylococcus epidermidis infection Mass of right breast Breast pain, right Breast pain, left Fat necrosis of breast Former smoker History of bilateral breast reduction surgery Mass of left breast Methicillin resistant Staphylococcus epidermidis infection Mass of right breast History of breast lump/mass excision Breast pain, left Fat necrosis of breast Former smoker History of bilateral breast reduction surgery Methicillin resistant Staphylococcus epidermidis infection Additional Source Comments INFORMATION SOURCE (unrecogn ized section and content) DATE CREATED AUTHOR 12/11/2017 [facility] DATE CREATED AUTHOR AUTHOR'S ORGANIZ ATION 07/23/2021 [facility] DATE CREATED AUTHOR AUTHOR'S ORGANIZ ATION 05/17/2022 [facility] DATE CREATED AUTHOR AUTHOR'S ORGANIZ ATION 01/31/2024 [facility] DATE CREATED AUTHOR AUTHOR'S ORGANIZ ATION 09/04/2024 [facility] DATE CREATED AUTHOR AUTHOR'S ORGANIZ ATION 10/22/2024 [facility] (unrecognized section and content) Goals may be documented in a n alternate sectionGoals may be documented in an alternate sectionGoals may be documented in an alternate sectionGoals may be documented in an alternate sectionGoals may be documented in an alternate sectionGoals may be documented in an alternate section No data available for this section No data available for this sectionGoals may be documented in an alternate section No data available for this section No data available for this section No data available for this section No data available for this sectionGoals may be documented in an alternate section No data available for this sectionGoals may be documented in an alternate sectionGoals may be documented in an alternate section No data available for this section No data available for this section No data available for this section No data available for this section No data available for this section No data available for this section No data available for this section Care Team (unrecognized sect ion and content) Care Team Personnel Name: MILKA SCHNEIDER Member Role: Primary Care Physician Address: Address: [facility] [place] [address]- Care Team Related Persons Name: ANA ROLAND Address: Home [address] [place] [address] Care Team Personnel Name: MILKA SCHNEIDER Member Role: Primary Care Physician Address: Address: [address] [place], [place] [address] [address]- Care Team Related Persons Name: ANA ROLAND Address: Home [address] [place] [address] Care Team Personnel Name: MILKA SCHNEIDER Member Role: Primary Care Physician Address: Address: [address] [place], [place] [address] [address]- Name: LINSEY FRIEDMAN MD Position: ED Physician Member Role: ED Physician Address: Address: [address] [address] [place] [id number]- Name: Gricelda Urrutia RN Position: RN Member Role: ED RN Name: Deepthi Agrawal wheat farmer Position: HIM: Coders Member Role: HIM: Coders Care Team Related Persons Name: ANA ROLAND Address: Home [address] [place] [address] [address] [place] [address] Care Team Personnel Name: MILKA SCHNEIDER Member Role: Primary Care Physician Address: Address: [address] [place] [address] [place] [address]- Name: ALBIN LAMBERT MD Position: ED Physician Member Role: Attending Physician Address: Address: [facility] [address] [place] [address]- Care Team Related Persons Name: ANA ROLAND Address: Home [address] [place] [address] Care Team Personnel Name: MILKA SCHNEIDER Member Role: Primary Care Physician Address: Address: [address] [place], [place] [address] [address]- [place] Name: LINSEY FRIEDMAN MD Position: ED Physician Member Role: ED Physician Address: Address: [address] [place] [address]- Care Team Related Persons Name: ANA ROLAND Address: Home [address] [place] [address] Care Team Personnel Name: MILKA SCHNEIDER Member Role: Primary Care Physician Address: Address: [address] [place] [address]- Name: NYLA GREER MD Position: ED Physician Member Role: ED Physician Address: Address: [address] [place] [id number]- [place] Name: MILTON Conn Position: AO RN Member Role: ED RN Care Team Related Persons Name: ANA ROLAND Address: Home [address] [place] [address] Care Team Personnel Name: MILKA SCHNEIDER Member Role: Primary Care Physician Address: Address: [address] [place] [id number]- Name: MILTON Bragg Position: AO RN Member Role: ED RN Name: GERSON REYNA MD Position: ED Physician Member Role: ED Physician Address: Address: [facility] [address] [place] [address]- Care Team Related Persons Name: ANA ROLAND Address: Home [address] [place] [address] Source Comments (unrecognize d section and content) [...] (unrecogniz ed section and content) Reason Comments left shoulder and underarm pain X 1 day and rash or red rooney woke up with symptom Reason Comments Cough Chest congestion, PAINTING , chills x 5 days Reason Comments Mouth/Lip Problem Reason Comments left pinky fonger pain X 1 day-cannot re call an injury Reason Comments Neck Pain Pain on left side of neck started today Reason Comments Sore Throat rash on legs x 4 day s Reason Comments Ankle Injury right x 5 days Reason Comments Results Reason Comments Ear Pain Left ear pain, cough , sinus and congestion x 1 week Care Teams (unrecognized sec tion and content) Filter Press Tender Relationship Specialty Start Date End Date Mitch Bear Ernst PCP - General Gerontology 10/07/16 Filter Press Tender Relationship Specialty [place] [address] [place] [id number] Physician Rheumatology 03/23/20 Team Status: Active Member Role Status Dates Dr. Bear Meyer MD Family Provider Active Dr. Milka Schneider MD Primary Care Provider Active Team Status: Inactive Member Role Status Dates Dr. Milka Schneider MD Primary Care Provider, Referrin g Provider Active Dr. Alexsander Eckert MD Attending Provider Active Team Status: Inactive Member Role Status Dates Dr. Milka Schneider MD Primary Care Provider Active Vickie Sol PAYROLL ASSISTANT, PAYROLL ASSISTANT-C Attending Provider, Referri ng Provider Active Team Status: Inactive Member Role Status Dates Dr. Milka Schneider MD Primary Care Provider, Attendin g Provider Active Team Status: Inactive Member Role Status Dates Dr. Milka Schneider MD Primary Care Provider Active Dr. Alexsander Eckert MD Attending Provider Active Team Status: Inactive Member Role Status Dates Dr. Milka Schneider MD Primary Care Provider Active Dr. Tomas Moreno DO Emergency Provider Active Team Status: Active Member Role Status Dates Dr. Milka Schneider MD Primary Care Provider Active Dr. Alexsander Eckert MD Attending Provide r, Referring Provider, Other Provider Active Team Status: Inactive Member Role Status Dates Dr. Milka Schneider MD Primary Care Provider Active Dr. Tomas Moreno DO Attending Provider, Emergency P rovider Active Team Status: Inactive Member Role Status Dates Dr. Milka Schneider MD Primary Care Provider Active Dr. Alexsander Eckert MD Attending Provider, Referring P rovider Active Team Status: Active Member Role Status Dates Dr. Milka Schneider MD Primary Care Provider Active Dr. Troy Vazquez MD Attending Provider Active Dr. Alexsander Eckert MD Referring Provider Active Team Status: Inactive Member Role Status Dates Dr. Milka Schneider MD Primary Care Provider, Referrin g Provider Active Vickie Sol PAYROLL ASSISTANT, PAYROLL ASSISTANT-C Attending Provider Active Team Status: Inactive Member Role Status Dates Dr. Milka Schneider MD Primary Care Provider Active Dr. Earnest Coronado DO Emergency Provider Active Filter Press Tender Relationship Specialty Start Date End Date Milka Schneider MD [address] [place], [place] [id number] PCP - General Family Medicine 10/30/22 Filter Press Tender Relationship Specialty Start Date End Date Milka Schneider MD [address] [place], [place] [id number] PCP - General Family Medicine 10/30/22 Team Status: Inactive Member Role Status Dates Dr. Milka Schneider MD Primary Care Provider Active Dr. Earnest Coronado DO Attending Provider, Emergency P rovider Active Team Status: Inactive Member Role Status Dates Dr. Milka Schneider MD Primary Care Provider Active Dr. Rodolfo Gonzales DO Emergency Provider Active Team Status: Inactive Member Role Status Dates Dr. Milka Schneider MD Primary Care Provider Active Dr. Rodolfo Gonzales DO Attending Provider, Emergency Pr ovider Active Team Status: Inactive Member Role Status Dates Dr. Milka Schneider MD Primary Care Provider Active Dr. Dipak Kirkpatrick MD Emergency Provider Active Team Status: Inactive Member Role Status Dates Dr. Milka Schneider MD Primary Care Provider Active Dr. Dipak Kirkpatrick MD Attending Provider, Emergency Provi javon Active Team Status: Inactive Member Role Status Dates Dr. Milka Schneider MD Primary Care Provider Active Dr. Jesus Manuel Boland MD Attending Provider, Emergency Provider Active Team Status: Inactive Member Role Status Dates Dr. Milka Schneider MD Primary Care Provider Active Dr. Jesus Manuel Boland MD Emergency Provider Active Filter Press Tender Relationship Specialty Start Date End Date Milka Schneider MD [address] [place], [place] [id number] PCP - General Family Medicine 10/30/22 Filter Press Tender Relationship Specialty Start Date End Date Milka Schneider MD [address] [place] [address] PCP - General Family Medicine 10/30/22 Filter Press Tender Relationship Specialty Start Date End Date Milka Schneider MD [address] [place] [address] PCP - General Family Medicine 10/30/22 Filter Press Tender Relationship Specialty Start Date End Date Milka Schneider MD [address] [place] [address] PCP - General Family Medicine 10/30/22 Filter Press Tender Relationship Specialty Start Date End Date Milka Schneider MD [address] [place] [address] PCP - General Family Medicine 10/30/22 Filter Press Tender Relationship Specialty Start Date End Date Milka Schneider MD [address] [place] [address] PCP - General Family Medicine 10/30/22 Filter Press Tender Relationship Specialty Start Date End Date Milka Schneider MD [address] [place], [place] [id number] PCP - General Family Medicine 10/30/22 Filter Press Tender Relationship Specialty [place] [address] [place] [address] Physician Rheumatology 03/23/20 FOR RECORDS PERTAINING TO PATIENTS WHO ARE [...] BE BASED ON THE PRIMARY CLINICAL RECORDS. [facility]. provides no warranty or guarantee of the accuracy or completeness of information in this document.
--- NOTE | 2024-12-04 05:20 | EDS_ITS ---
HPI History of Present Illness Chief Complaint: Upper Extremity Injury Informant: patient Narrative Narrative: Patient is a 54-year-old female with past medical history of anxiety hypertension hypothyroidism. She states she is right-hand dominant. She states however at work she does lifting pulling and pushing motions. She denies any direct trauma or sudden onset of pain but states that she noticed some discomfort in her left shoulder that was worse with motion over the last 1 to 2 days. She states that there is occasional radiation down the left arm towards the elbow and towards the left chest. She states this evening/morning she could not sleep secondary to the pain and had concerned that it could be cardiac in nature based on mild radiation and therefore comes in for evaluation [facility] Medical History (Updated 12/04/24 @ 08:[address] Rodolfo Gonzales, DO) Contusion of left foot Panic Gastric reflux ELLY (generalized anxiety disorder) Other acute postprocedural pain Methicillin resistant Staphylococcus epidermidis infection Thyroid disease History of staph infection Fat necrosis of breast Mass of right breast Mass of left breast Breast pain, left Wears glasses Wears partial dentures Anxiety History of steroid therapy Migraine headache Dietary restriction Difficulty swallowing History of ulceration Former smoker History of echocardiogram History of stress test Intertrigo Chronic thoracic back pain Shoulder pain Chronic neck pain Macromastia Vision problem Hormone deficiency Generalized headaches Carpal tunnel syndrome Back problem Allergies Anginal equivalent Anxiety GERD (gastroesophageal reflux disease) Hypertension Hypothyroidism Home Medications ?Medication ?Instructions ?Recorded ?Last Taken ?Type losartan 25 mg tablet (Cozaar) 25 mg PO DAILY 01/27/21 10/18/23 History levothyroxine 100 mcg tablet 100 mcg PO DAILY 07/20/23 10/18/23 History naproxen 500 mg tablet 500 mg PO BID 10/15/23 Unkno wn History trazodone 100 mg tablet 100 mg PO QHS 10/15/23 Unkno wn History duloxetine 60 mg capsule,delayed 60 mg PO DAILY #90 ca ps 09/16/24 Unknown Rx release lorazepam 1 mg tablet 1 mg PO DAILY PRN anxiety #3 0 tabs 10/20/24 Unknown Rx methocarbamol 500 mg tablet 1,000 mg (2 x 500 mg) PO 4 X/DAY 12/04/24 Unknown Rx PRN Muscle pain/spasm #56 tabs Allergy/AdvReac Type Severity Reaction Status Date / Time azithromycin (From Zithromax Allergy Diarrhea Verified 12/04/24 04:15 Z-Keo) sumatriptan (From Imitrex) Allergy TUNNEL Verified 12/04/24 04:15 VISION sumatriptan succinate (From Allergy TUNNEL Verified 12/04/24 04:15 Imitrex) VISION tramadol AdvReac nausea and Verified 12/04/24 04:15 vomiting Family History Other Anxiety Depression Epilepsy Hormone deficiency Hypertension Seizures Surgical History History of breast lump/mass excision History of bilateral breast reduction surgery History of esophagogastroduodenoscopy (EGD) History of carpal tunnel release S/P hysterectomy S/P laparoscopic cholecystectomy S/P left knee surgery S/P tubal ligation S/P wisdom tooth extraction S/P correction of deviated nasal septum Social History household members: significant other Smoking Status: Former smoker alcohol intake: never substance use type: does not use additional social history: Does Not Take Aspirin Does Not Take Ibuprofen ROS ROS ED Constitutional Constitutional ED: Denies chills or fever(s) Eyes Eyes: Denies blurry vision or change in vision ENT ENT ED: Denies sore throat Cardiovascular Cardiovascular: Denies chest pain, palpitations or racing heartbeat Respiratory/Chest Respiratory/Chest: Denies cough or dyspnea Gastrointestinal Gastrointestinal: Denies abdominal pain, diarrhea, nausea or vomiting Musculoskeletal Musculoskeletal: Reports other Details: Positive left shoulder pain ; Denies neck pain Integumentary Denies Abrasions or rash Neurologic Neurologic: Denies headache(s) or paresthesias Psychiatric Psychiatric: Reports anxiety Hematologic/Lymphatic Hematologic/Lymphatic: Denies easy bleeding or easy bruising EXAM Physical Exam Const Vital Signs: 12/04/24 04:15 12/04/24 04:43 Temperature 97.9 F Temperature Source Oral Pulse Rate 91 Respiratory Rate 16 Blood Pressure 172/82 H 153/75 H Blood Pressure Mean 112 101 Pulse Ox 100 Oxygen Delivery Method Room Air Positive well nourished and well developed General Appearance ED: well developed HEENT HEENT Narrative: Normocephalic atraumatic Eyes PERRL and EOMs intact bilaterally Neck supple Neck Narrative: No bony deformity or step-off of the cervical spine no midline tenderness to palpation There is paracervical tension and spasm noted that worsens with sidebending and rotation No nuchal rigidity or meningeal signs Resp normal respiratory effort and clear to auscultation bilaterally Cardio regular rate and regular rhythm Extremity Extremity Narrative: Left upper extremity is neurovascularly intact; AIN/PIN are intact and normal. No obvious bony deformity or joint effusion. Negative sulcus sign. There is mild diffuse pain on palpation. Pain worsens with active and passive range of motion. No ligamentous or tendon damage noted. Compartments are soft and compressible going against compartment syndrome Remainder of the exam is normal Neuro oriented x3 and CN's II-XII intact bilaterally Sensorium / Orientation: alert Psych Mood & Affect: anxious Skin no rashes or lesions noted MDM MDM MDM Narrative Medical decision making narrative: Patient arrived to the ER hypertensive but has a past medical history of this. She reported pain in the left shoulder with out direct trauma. 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 This revealed no acute findings which correlates with her exam. She does not have findings concerning for cervical radiculopathy either. And physical exam does not show soft tissue changes to suggest potential infection or gout. As the patient had concern this could be atypical cardiac presentation and elected perform an EKG which showed normal sinus rhythm without ischemia. Therefore this time as history and exam indicates this is most likely musculoskeletal she can be given symptomatic medications and is otherwise safe for discharge History & Record Review Discussion w/independent historian: Patient Radiography Diagnostic Testing: Clinical Impression(s) from Imaging Studies Shoulder X-Ray 12/04/24 04:50 IMPRESSION: No evidence for acute abnormality. Reading Location: [place] [address] Left shoulder x-ray as interpreted by the emergency medicine physician reveals no acute fracture dislocation or joint effusion Discharge Plan Triage Chief Complaint: Upper Extremity Injury ED Provider: Rodolfo Gonzales Dx/Rx/DC Orders Clinical Impression: Muscle strain of left shoulder region, Anxiety, Hypothyroidism, Hypertension Instructions: ED Shoulder Sprain, ED Muscle Strain, Extremity Prescriptions: New methocarbamol 500 mg tablet 1,000 mg PO 4X/DAY PRN (Reason: Muscle pain/spasm) Qty: 56 0RF No Action losartan [Cozaar] 25 mg tablet 25 mg PO DAILY duloxetine 60 mg capsule,delayed release(DR/EC) 60 mg PO DAILY Qty: 90 1RF levothyroxine 100 mcg tablet 100 mcg PO DAILY Patient Comments: TAKE 1 TABLET BY MOUTH EVERY DAY trazodone 100 mg tablet 100 mg PO QHS naproxen 500 mg tablet 500 mg PO BID lorazepam 1 mg tablet 1 mg PO DAILY PRN (Reason: anxiety) Qty: 30 1RF Primary Care Provider: Milka Schneider Referrals: Milka Schneider MD [Primary Care Provider] - Activity Restrictions/Additional Instructions: Please continue with Tylenol and or ibuprofen for pain relief and add the muscle relaxer/Robaxin. You can also continue with [id number] topical treatments such as lidocaine patches or IcyHot. Continue to move your shoulder to help prevent frozen shoulder. Follow-up with your family doctor to discuss further testing if symptoms do not improve over the next 1 to 2 weeks. Return to the ER should you have any further concerns Print Language: Frisian Disposition Disposition: Home, Self Care Discharge Date/Time: 12/04/24 05:28
[2024-12-04 05:22] VITALS: BP 162/83; PULSE 64; RESP 16; TEMP 36.6; O2SAT 95
== END 2024-12-04 05:28 | disposition home or self-care (01) ==
PROVIDERS: Emergency Provider Emergency Medicine; PCP Family Medicine; Visit Provider Emergency Medicine
DX: S46.912A Strain of unspecified muscle, fascia and tendon at shoulder and upper arm level, left arm, initial encounter (principal); X58.XXXA Exposure to other specified factors, initial encounter; I10 Essential (primary) hypertension; E03.9 Hypothyroidism, unspecified; F41.9 Anxiety disorder, unspecified; Z79.890 Hormone replacement therapy; Z79.899 Other long term (current) drug therapy; Z87.891 Personal history of nicotine dependence
CPT/HCPCS: 73030; 93005; 96372; 99283

== ENCOUNTER → 2025-03-16 | Outpatient (CLI) | payer BC, SELFPAY ==
--- OUTSIDE RECORDS SUMMARY | 2025-01-11 07:19 | XMS RPT_ITS ---
Author Name Auto Generated Organization OHIP Care Team Providers Care [employer] Name Role Phone ADARSH ESCOBAR Primary Care Unavailable ARACELI BURNS Referring Unavailable ADARSH ESCOBAR Primary Care Unavailable ADARSH ESCOBAR Primary Care Unavailable ADARSH ESCOBAR Primary Care Unavailable DR LUBA BAUGH DO Attending Unavailable PROBLEMS DATE TYPE CONDITION / CODE ATTENDING STATUS [facility] 01/11/2025 Unknown Hypothyroidism, unspecified / E03.9(ICD-10) DR LUBA BAUGH DO Active [facility] PROCEDURES No Procedure Records Found RESULTS UA Collected: 01/11/2025 9:04 AM Status: F Source: [facility] TYPE CODE TESTS RESULT OUT OF RANGE REFERENCE UNITS LAB SPCUA(LOINC) UA Specimen Type Void LAB CLRUA(LOINC) UA Color Yellow LAB APPUA(LOINC) UA Appear Clear Clear LAB SGUA(LOINC) UA Spec Grav <=1.005 Abnormal 1.015-1.025 LAB GLUA(LOINC) UA Glucose Negative Negative mg/dL LAB BILUA(LOINC) UA Bili Negative Negative LAB KETUA(LOINC) UA Ketones Negative Negative mg/dL LAB BLDUA(LOINC) UA Blood Negative Negative LAB PHUA(LOINC) UA pH 6.0 5.0 - 8.0 LAB PROUA(LOINC) UA Protein Negative Negative mg/dL LAB UROUA(LOINC) UA Urobilinogen 0.2 0.2-1.0 E.U ./dL LAB NITUA(LOINC) UA Nitrite Negative Negative LAB LEUUA(LOINC) UA Leuk Est Negative Negative Performed By: #### UA #### [address] [address] CBC Collected: 7:57 AM Status: F Source: [facility] TYPE CODE TESTS RESULT OUT OF RANGE REFERENCE UNITS LAB WBC(LOINC) WBC 6.3 4.5-10.8 10 3/mcL LAB RBCCT(LOINC) RBC 4.40 4.10-5.30 10 6/mcL LAB HGB(LOINC) Hgb 13.9 12.0-16.0 G/dL LAB HCT(LOINC) Hct 40.9 34.0-46.0 % LAB MCV(LOINC) MCV 93.0 80.0-99.0 fL LAB MCH(LOINC) MCH 31.6 27.0-33.0 pg LAB MCHC(LOINC) MCHC 34.0 32.0-36.0 G/dL LAB RDW(LOINC) RDW 14.3 11.5-15.5 % LAB PLT(LOINC) Platelet 246 150-450 10 3/mcL LAB MPV(LOINC) MPV 7.7 6.6-10.5 fL Performed By: #### TSH, CBC, ABOGEL, MDW, CMP, ANEU, ADIFF, TROPHS, ABSGEL, GFR #### [address] [address] .AUTO DIFF Collected: 01/11/2025 7:57 AM Status: F Source: [facility] TYPE CODE TESTS RESULT OUT OF RANGE REFERENCE UNITS LAB JARAD(LOINC) Neutrophil % 64.9 50.0-75.0 % LAB LYM(LOINC) Lymphocyte % 28.8 20.0-40.0 % LAB MON(LOINC) Monocyte % 4.7 2.0-13.0 % LAB EO(LOINC) Eosinophil % 1.0 0.0-6.0 % LAB BAS(LOINC) Basophil % 0.6 0.0-2.5 % LAB ABLYM(LOINC) Lymphocyte, Absolute 1.8 0.9-4.3 10 3/mcL LAB CHECO(LOINC) Monocyte, Absolute 0.3 0.1-1.4 10 3/mcL LAB AEOS(LOINC) Eosinophil, Absolute 0.1 0.0-0.7 10 3/mcL LAB ABAS(LOINC) Basophil, Absolute 0.0 0.0-0.3 10 3/mcL Performed By: #### TSH, CBC, ABOGEL, MDW, CMP, ANEU, ADIFF, TROPHS, ABSGEL, GFR #### [address] [address] .NEUABS Collected: 7:57 AM Status: F Source: [facility] TYPE CODE TESTS RESULT OUT OF RANGE REFERENCE UNITS LAB ANEU(LOINC) Neutrophil, Absolute 4.1 2.3-8.1 10 3/mcL Performed By: #### TSH, CBC, ABOGEL, MDW, CMP, ANEU, ADIFF, TROPHS, ABSGEL, GFR #### [address] [address] .MDW Collected: 01/11/2025 7:57 AM Status: F Source: [facility] TYPE CODE TESTS RESULT OUT OF RANGE REFERENCE UNITS LAB MDW(INC) Monocyte Distribution Width 15.83 0.00-20.00 Result Comment: For ED adult patients suspected of sepsis, MDW<=20.0 does not rule out sepsis or risk of sepsis Performed By: #### TSH, CBC, ABOGEL, MDW, CMP, ANEU, ADIFF, TROPHS, ABSGEL, GFR #### [address] [address] TROPHS Collected: 01/11/2025 7:57 AM Status: F Source: [facility] TYPE CODE TESTS RESULT OUT OF RANGE REFERENCE UNITS LAB HSTROP(LOINC) High Sensitivity Troponin I 12 0-51 ng/L Result Comment: High Sensiti ve Troponin I Reference Ranges: Female: 0-51 ng/L Male: 0-76 ng/L Testing performed on [employer] using a homogeneous sandwich chemiluminescent immunoassay based on [employer] technology. Performed By: #### TSH, CBC, ABOGEL, MDW, CMP, ANEU, ADIFF, TROPHS, ABSGEL, GFR #### [facility] [address] [place], [place] [address] TSH Collected: 7:57 AM Status: F Source: [facility] TYPE CODE TESTS RESULT OUT OF RANGE REFERENCE UNITS LAB TSH(LOINC) TSH 9.08 High 0.36-3.74 mcIU/mL Performed By: #### TSH, CBC, ABOGEL, MDW, CMP, ANEU, ADIFF, TROPHS, ABSGEL, GFR #### [id number] [place], [place] [address] CMP Collected: 01/11/2025 7:57 AM Status: F Source: [facility] TYPE CODE TESTS RESULT OUT OF RANGE REFERENCE UNITS LAB GLU(LOINC) Glucose Level 102 70-105 mg/dL LAB NA(LOINC) Sodium Level 139 136-145 mmol/L LAB K(LOINC) Potassium Level 3.7 3.5-5.1 mmol/L LAB CL(LOINC) Chloride 103 98-107 mmol/L LAB CO2(LOINC) CO2 28 22-29 mmol/L LAB EBAL(LOINC) Electrolyte Balance 8.0 4.0-15.0 mEq/L LAB BUN(LOINC) BUN 14 7-18 mg/dL LAB CRE(LOINC) Creatinine Lvl (s) 0.89 0.51-0.95 mg/dL LAB BC(LOINC) BUN/Creatinine Ratio 16 7-27 ratio LAB CA(LOINC) Calcium Lvl 9.4 8.4-10.2 mg/dL LAB PROT(LOINC) Total Protein 7.4 6.4-8.2 G/dL LAB ALB(LOINC) Albumin Level 3.7 3.5-5.0 G/dL LAB GLB(LOINC) Globulin 3.7 2.7-4.4 G/dL LAB AG(LOINC) A/G Ratio 1.0 Low 1.1-2.5 ratio LAB BILT(LOINC) Bili Total 0.3 0.2-1.0 mg/dL Result Comment: Use of this assay is not recommended for patients undergoing treatment with eltrombopag due to the potential for falsely elevated results. LAB AP(LOINC) Alk Phos 80 40-135 U/L LAB AST(LOINC) AST/SGOT 28 10-40 U/L LAB ALT(LOINC) ALT/SGPT 43 14-59 U/L Performed By: #### TSH, CBC, ABOGEL, MDW, CMP, ANEU, ADIFF, TROPHS, ABSGEL, GFR #### [id number] [place], [place] [address] .GFR Collected: 01/11/2025 7:57 AM Status: F Source: [facility] TYPE CODE TESTS RESULT OUT OF RANGE REFERENCE UNITS LAB eGFR(LOINC) Estimated Glomerular Filtration Rate 78 ml/min/1. 73sqm Result Comment: Stages of Chronic Kidney Disease (CKD) Stage Description eGFR(ml/min/1.73 sq.m.) CKD 1 Normal kidney function or >=90 normal kindney function with possible kidney damage (ex. Proteinuria) CKD 2 Kidney damage with mild loss 60-89 of kidney function CKD 3a Mild to moderate loss of kidney 45-59 function CKD 3b Moderate to severe loss of 30-44 of kindey function CKD 4 Severe loss of kidney function 15-29 CKD 5 Kidney failure <15 Note: (go live 2024) the eGFR calculation was updated to the 2020 CKD-EPI creatinine equation without a race factor to calculate the eGFR results. Performed By: #### TSH, CBC, ABOGEL, MDW, CMP, ANEU, ADIFF, TROPHS, ABSGEL, GFR #### [address] [address] ABO/RH (GEL) Collected: 01/11/2025 7:57 AM Status: F Source: [facility] TYPE CODE TESTS RESULT OUT OF RANGE REFERENCE UNITS LAB ABORH(LOINC) ABO/Rh Interp O POS Unknown Performed By: #### TSH, CBC, ABOGEL, MDW, CMP, ANEU, ADIFF, TROPHS, ABSGEL, GFR #### [id number] [place], [place] [address] ABS (GEL) Collected: 01/11/2025 7:57 AM Status: F Source: [facility] TYPE CODE TESTS RESULT OUT OF RANGE REFERENCE UNITS LAB ABSCINT(LOINC) ABSC Interp (Gel) Negative ABSC Performed By: #### TSH, CBC, ABOGEL, MDW, CMP, ANEU, ADIFF, TROPHS, ABSGEL, GFR #### [id number] [place], [place] [address] PROGRESS Observed: 09/02/2024 9:12 AM Status: COMPLETED Source: [facility] HNO ID: [id number] Author: INGRID BENTLEY APRN.PRINTING PRESS OPERATOR Service: ? Author Type: Nurse Practitioner Type: Progress Notes Filed: 09/02/2024 09:14 Note Text: [facility] Subjective Louise Roland is a 54 year old female. [...] is provided by the patient. No speech language pathology assistant was used. Ear Pain Review of Systems [...] fluticasone (FLONASE) 50 mcg/actuation nasal spray 1 [place] once daily. LORazepam (ATIVAN) 1 mg tablet [...] AMOXICILLIN 875 MG-POTASSIUM CLAVULANATE 125 MG TABLET Ingrid Bentley APRN.PRINTING PRESS OPERATOR History and Record Review External record(s) reviewed: no prior records. Disposition The patient was discharged. Procedures CNOV Observed: 09/02/2024 9:00 AM Status: COMPLETED Source: [facility] LOUISE [facility]OLAND ([id number]) 1970 F Date Time Provider Department 09/02/24 9:00 AM INGRID BENTLEY [facility] During your visit today, we recorded the following information about you: Temperature Pulse Respiration Blood pressure 97.7 degrees 71/minute 16/minute 136/82 Weight 74.5 kg Ingrid Bentley APRN.PRINTING PRESS OPERATOR 09/02/2024 9:14 AM Signed [facility] Subjective Louise Roland is a 54 year old female. [...] is provided by the patient. No speech language pathology assistant was used. Ear Pain Review of Systems [...] fluticasone (FLONASE) 50 mcg/actuation nasal spray 1 [place] once daily. LORazepam (ATIVAN) 1 mg tablet [...] AMOXICILLIN 875 MG-POTASSIUM CLAVULANATE 125 MG TABLET Ingrid Bentley APRN.PRINTING PRESS OPERATOR History and Record Review External record(s) reviewed: no prior records. Disposition The patient was discharged. Procedures Allergies As of Date: 09/02/2024 Noted Allergy Reaction AZITHROMYCIN 01/16/2021 6 - Diarrhea DUST 04/27/2010 9 - Itching IMITREX (SUMATRIPTAN) 04/27/2010 14 - Other: See Comments Comments: vision Date Reviewed: 09/02/2024 Reviewed by: Lary Macario LPN - Fully Assessed Reason for Visit: Ear Pain [817] Cmt: Left ear pain, cough, sinus and congestion x 1 week Primary Visit Diagnosis:Rhinosinusitis [J32.9] Order(s):amoxicillin-clavulanate potassium (AUGMENTIN) 875-125 mg per tabletTake 1 tablet by mouth two times a day for 7 days.Disp: 14 tabletRfl: 0 Prescriptions as of 09/02/2024 - amoxicillin-clavulanate potassium (AUGMENTIN) 875-125 mg per tablet Take 1 tablet by mouth two times a day for 7 days. - lidocaine (LIDODERM) 5 % Apply 1 [...] fluticasone (FLONASE) 50 mcg/actuation nasal spray 1 [place] once daily. - LORazepam (ATIVAN) 1 mg [...] medications in the last 30 days. Norma Bertka, RN Problem List As Of Date 09/02/2024 Noted Resolved Abdominal pain, epigastric [R10.13] 10/25/2011 GERD (gastroesophageal reflux disease) [K21.9] 04/05/2015 Seasonal allergies [J30.2] 04/05/2015 Obesity (BMI 35.0-39.9 without comorbidity) [E6*10/28/2015 Ilioinguinal neuralgia of right side [G57.91] 05/09/2017 High-tone pelvic floor dysfunction [M62.89] 05/09/2017 Trigger point [M79.10] 05/09/2017 Deep dyspareunia [N94.12] 05/09/2017 Prescriptions ordered this encounter Disp Refills Start End AMOXICILLIN 875 MG-POTASSIUM CLAVULA* 14 t* 0 09/02/2024 09/09/2024 Route: ORAL Sig: Take 1 tablet by mouth two times a day for 7 days. Encounter Status:Closed by INGRID BENTLEY on 09/02/24 CNPN Observed: 04/08/2024 12:00 AM Status: COMPLETED Source: [facility] LOUISE ROLAND ([id number]) 1970 F Date Time Provider Department 04/08/24 ANTHONY JOHNSON [facility] During your visit today, we recorded the following information about you: Mirta Cohen MA 04/08/2024 7:46 AM Signed ----- Message from Anthony Johnson MD sent at 04/07/2024 8:42 PM EDT ----- Ankle xray showed no fractures. Mirta Cohen MA 04/08/2024 7:47 AM Signed Patient given results and verbalized understanding of instructions given. Mirta Cohen MA Allergies As of Date: 04/08/2024 Noted Allergy Reaction AZITHROMYCIN 01/16/2021 6 - Diarrhea DUST 04/27/2010 9 - Itching IMITREX (SUMATRIPTAN) 04/27/2010 14 - Other: See Comments Comments: vision Date Reviewed: 04/07/2024 Reviewed by: Mirta Cohen MA - Fully Assessed Reason for [...] fluticasone (FLONASE) 50 mcg/actuation nasal spray 1 [place] once daily. - LORazepam (ATIVAN) 1 mg [...] Deep dyspareunia [N94.12] 05/09/2017 Encounter Status:Closed by MIRTA COHEN on 04/08/24 PROGRESS Observed: 04/07/2024 7:35 PM Status: COMPLETED Source: [facility] HNO ID: [id number] Author: ARACELI BURNS APRN.PRINTING PRESS OPERATOR Service: ? Author Type: Nurse Practitioner Type: Progress Notes Filed: 04/07/2024 19:58 Note Text: Subjective HPI HPI Louise Roland is a 53 year old female [...] fluticasone (FLONASE) 50 mcg/actuation nasal spray 1 [place] once daily. LORazepam (ATIVAN) 1 mg tablet [...] LIDOCAINE 5 % TOPICAL PATCH Araceli Burns APRN.PRINTING PRESS OPERATOR XR ANKLE 3V AP/LAT/OBL RT Observed: 03/19 7:31 PM Status: F Source: [facility] * * *Final Report* * * DATE [...] No acute osseous abnormalities are identified . In Flight Technician: CARMEL Transcribe Date/Time: Apr 07 2024 8:00P Dictated by : KAYLA LAU MD This examination was interpreted and the report reviewed and electronically signed by: KAYLA LAU MD on Apr 07 2024 8:01PM EST [id number] PROGRESS Observed: 04/07/2024 7:30 PM Status: COMPLETED Source: [facility] HNO ID: [id number] Author: TIM RAY RT(R) Service: Radiology Author Type: Technologist Type: Progress Notes Filed: 04/07/2024 19:31 Note Text: Radiology Service Progress Note PATIENT NAME: Louise Roland DATE OF SERVICE: April 07, 2024 [...] PATIENT PRESENTS WITH AN IMPLANTABLE OR ATTACHED SEED CUTTER: No RADIOLOGY DEPARTMENT: General X-ray: Exam(s) Completed: Lower Extremity X-Ray(s): Ankle, Right PERIPHERAL IV DATA: Not applicable SIGNED BY: RT Mook(R) April 07, 2024 7:24 PM CNOV Observed: 04/07/2024 7:15 PM Status: COMPLETED Source: [facility] Office Visit ([facility]) LOUISE ROLAND ([id number]) 1970 F Date Time Provider Department 04/07/24 7:15 PM ARACELI BURNSDM During your visit today, we recorded the following information about you: Temperature Pulse Respiration Blood pressure 97.2 degrees 62/minute 16/minute 110/64 Weight 84.6 kg Araceli Burns APRN.CNP 04/07/2024 7:58 PM Signed Subjective HPI HPI Louise Roland is a 53 year old female [...] fluticasone (FLONASE) 50 mcg/actuation nasal spray 1 [place] once daily. LORazepam (ATIVAN) 1 mg tablet [...] LIDOCAINE 5 % TOPICAL PATCH Araceli Burns APRN.PRINTING PRESS OPERATOR Allergies As of Date: 04/07/2024 Noted Allergy Reaction AZITHROMYCIN 01/16/2021 6 - Diarrhea DUST 04/27/2010 9 - Itching IMITREX (SUMATRIPTAN) 04/27/2010 14 - Other: See Comments Comments: vision Date Reviewed: 04/07/2024 Reviewed by: Mirta oChen MA - Fully Assessed Reason for Visit: Ankle Injury [1957] Cmt: right x 5 days Primary Visit Diagnosis:Acute right ankle pain [M25.571] Order(s):XR ANKLE GENERAL 3V AP/LAT/OBL RIGHT [[id number]] Order #: [id number]. #:[id number] lidocaine (LIDODERM) 5 %Apply 1 Patch as directed every 12 hours. Remove old patch prior to placing new patch. Location: ankleDisp: 15 PatchRfl: 0 Prescriptions as of 04/07/2024 - lidocaine (LIDODERM) 5 % Apply 1 [...] fluticasone (FLONASE) 50 mcg/actuation nasal spray 1 [place] once daily. - LORazepam (ATIVAN) 1 mg [...] Connell RN Problem List As Of Date 04/07/2024 Noted Resolved Abdominal pain, epigastric [R10.13] 10/25/2011 GERD (gastroesophageal reflux disease) [K21.9] 04/05/2015 Seasonal allergies [J30.2] 04/05/2015 Obesity (BMI 35.0-39.9 without comorbidity) [E6*10/28/2015 Ilioinguinal neuralgia of right side [G57.91] 05/09/2017 High-tone pelvic floor dysfunction [M62.89] 05/09/2017 Trigger point [M79.10] 05/09/2017 Deep dyspareunia [N94.12] 05/09/2017 Prescriptions ordered this encounter Disp Refills Start End LIDOCAINE 5 % TOPICAL PATCH 15 P* 0 04/07/2024 Route: TRANSDERM. Sig: Apply 1 Patch as directed every 12 hours. Remove old patch prior to placing new patch. Location: ankle Encounter Status:Closed by ARACELI BURNS on 04/07/24 ALLERGIES DATE TYPE / CODE NAME / CODE REACTION SEVERITY SOURCE 01/16/2021 DRUG INGREDI/[id number] (SNOMED CT) AZITHROMYCIN DIARRHEA [facility] 04/27/2010 Environ/[id number] (SNOMED CT) DUST ITCHING [facility] 04/27/2010 DRUG INGREDI/[id number] (SNOMED CT) SUMATRIPTAN OTHER: SEE C [facility] ENCOUNTERS ADMIT/DISCHARGE ACCOUNT NUMBER ADMITTING ENCOUNTER CLASS LOCATION SOURCE 01/11/2025/ 5 [id number] [facility] [place] 09/02/2024/ 5 [id number] [facility] 04/07/2024/ 4 [id number] [facility] [id number] [facility] PAYERS ENCOUNTER GUARANTOR PAYER SUBSCRIBER SOURCE 01/11/2025 LOUISE PERKINSTICEDOB: DERRICK BRAR [address] [email or web address]: () Primary Insurance:[employer] INSCOPolicy Number: [id number] Date:9947-65-50Xcqk Name:[facility] [place] [id number], [place] [address]UD: LOUISE PERKINSTICEDOB: [id number] DERRICK BRAR [address] [address]Hgn: () () [facility] 09/02/2024 Primary Insuranc e:BLUE CARD PPO OOSPolicy Number: [id number] Date:0484-21-17Abcj Name:Cassandra PERKINSTICEDOB: [id number] DERRICK JONES [address] [address] [facility] 04/07/2024 Primary Insurance:[employer] MEDICAIDPolicy Number: [id number] Date:6922-47-55Owwb Name:Trever PERKINSTICEDOB: [id number] DERRICK JONES [address] [address] [facility] 04/07/2024 Primary Insurance:[employer] MEDICAIDPolicy Number: [id number] Date:0779-81-73Ihcu Name:Trever PERKINSTICEDOB: [id number] DERRICK JONES [address] [address] [facility]
[2025-03-16 13:21] LABS: Free T3 2.4 pg/mL (2.18-3.98)
== END | disposition home or self-care (01) ==
LOC: MTLAB 10:23
PROVIDERS: PCP Family Medicine; Referring Provider Family Medicine; Visit Provider Family Medicine
DX: E03.9 Hypothyroidism, unspecified (principal)
CPT/HCPCS: 36415; 84439; 84443; 84481

== ENCOUNTER → 2025-04-14 | Outpatient (CLI) | payer BC, SELFPAY ==
[2025-04-14 18:00] LABS: Hematocrit 38.3 % (37-47); Hemoglobin 12.3 g/dL (12.0-15.0); Immature Granulocytes Count 0.020 X10^3/uL (0.0-0.0); Mean Corp Hgb Conc 32.1 g/dL (32-36); Mean Corpuscular Volume 96.7 fL (81-99); Mean Platelet Vol. 11.6 fl (6.2-12.0); NRBC Flagged by Analyzer 0 % (0-5); Platelet Count 192 K/mm3 (150-450); RBC Distribution Width CV 13.0 % (11.6-14.6); RBC Distribution Width SD 46.6 fl (35.1-43.9); Red Blood Count 3.96 M/mm3 (4.2-5.4); White Blood Count 8.7 K/mm3 (4.4-11.0)
[2025-04-14 18:20] LABS: Anion Gap 12 (5-15); BUN 10 mg/dL (4-19); BUN/Creat Ratio 12.2 RATIO (10-20); Calcium,Total 9.1 mg/dL (7.6-11.0); Carbon Dioxide 21.1 mmol/L (21.0-32.0); Chloride 105 mmol/L (98-108); Glucose 76 mg/dL (70-99); Potassium 4.1 mmol/L (3.3-5.1)
== END | disposition home or self-care (01) ==
LOC: MTLAB 14:28
PROVIDERS: PCP Family Medicine; Referring Provider Family Medicine; Visit Provider Family Medicine
DX: K20.0 Eosinophilic esophagitis (principal); K21.9 Gastro-esophageal reflux disease without esophagitis
CPT/HCPCS: 36415; 80048; 85025